=== PATIENT | female | born 1965 | race Two or more races ===

== ENCOUNTER → 2017-08-24 | Outpatient (CLI) | payer MEDICARE, OTHER ==
[~2017-08-24] MED LIST: /BACL20TA; /BACL20TA PO; /CARB20TAB; /DULO30CA; /FEXO18TA; /LANS30GR; /METO25TAB PO; ACYC400T; ACYC400T PO; ADDE10TA; ALBUTEROL; AMAN100T PO; AMIT10TA PO; ARTISOL; BACT800T; BENA25CA PO; CALC500T49; CALC600T10; CARB200CAP; CLON1TAB; CLON1TAB PO; CLONPOW23 PO; COLA100C2; CYMB60CA3 PO; DILA100C PO; DILA2TAB; DIVA500T3 PO; DYAZ37.5 PO; GILE1CAP PO; HYDR50TA8 PO; HYDROCODONE/ACETAMIN; IMMODIUM; KEPPRA; LEVA500T; LIDODERM; LYRI300C; LYRI300C PO; MAGN500T2; MELO15TA4 PO; MELOPOW; METH1TAB2 PO; METO1TAB32 PO; MORP15TA2 PO; MORP15TA4; MORP30TA2 PO; MS C15TA5; NAPR500T3 PO; NASONEX; NICO21DI4; NUED20CA PO; OLOP1DRO OU; OMEP40CA2 PO; OXYB15TA; PROM25TA PO; PROV200T5; PROV90AE; PROVIGIL; SENNA; TIZA4TAB; TIZA4TAB PO; TRAZ-136 PO; TRAZ50TA11; TRIAMT/HCTZ; VENTAER INH; VICO5TAB; VITA1CAP40 PO; VITAMIN B-12; VITAMIN D; ZOFR8TAB; ZOFR8TAB PO; ZONISAMIDE; [UNRECOGNIZED DRUG - CODE]; [UNRECOGNIZED DRUG - OTHER] PO
[2017-08-24 18:03] LABS: ALBUMIN 3.7 GM/DL (3.2-5.2); ALBUMIN/GLOBULIN RATIO 1.06 (1.00-1.93); ALKALINE PHOSPHATASE 198 U/L (45-117); ALT/SGPT 16 U/L (12-78); ANION GAP 7 MEQ/L (8-16); AST/SGOT 4 U/L (15-37); BILIRUBIN,TOTAL 0.3 MG/DL (0.2-1.0); BLOOD UREA NITROGEN 19 MG/DL (7-18); CALCIUM LEVEL 9.5 MG/DL (8.5-10.1); CARBON DIOXIDE LEVEL 33 MEQ/L (21-32); CHLORIDE LEVEL 96 MEQ/L (98-107); GLOMERULAR FILTRATION RATE > 60.0 (>58); GLUCOSE, FASTING 91 MG/DL (70-105); POTASSIUM SERUM 3.9 MEQ/L (3.5-5.1); SODIUM LEVEL 136 MEQ/L (136-145); TOTAL PROTEIN 7.2 GM/DL (6.4-8.2)
[2017-08-24 18:07] LABS: VITAMIN B12 LEVEL 421 PG/ML (247-911)
== END ==
LOC: M WUC 11:17
PROVIDERS: ATTEND Physician Assistant
DX: G35 Multiple sclerosis (principal)

== ENCOUNTER 2017-09-15 19:21 | Inpatient (IN) | payer MEDICARE, BC, OTHER ==
[~2017-09-15] VITALS: Ht 157.5 cm; Wt 88.5 kg
[~2017-09-15 19:21] MED LIST changes: -AMAN100T PO; -AMIT10TA PO; -CLON1TAB PO; -DILA100C PO; -DIVA500T3 PO; -DYAZ37.5 PO; -GILE1CAP PO; -MELO15TA4 PO; -METH1TAB2 PO; -METO1TAB32 PO; -NAPR500T3 PO; -NUED20CA PO; -OLOP1DRO OU; -PROM25TA PO; -TRAZ-136 PO; -TRAZ50TA11; -TRIAMT/HCTZ; -VITA1CAP40 PO
[2017-09-15] MEDS ORDERED: TRIAMT/HCTZ (19:52)
[2017-09-15] MEDS ORDERED: NUED20CA PO (19:52)
[2017-09-15] MEDS ORDERED: TRAZ50TA11 (19:52)
[2017-09-15] MEDS ORDERED: NAPR500T3 PO (19:52)
[2017-09-15] MEDS ORDERED: AMAN100T PO (19:52)
[2017-09-15] MEDS ORDERED: DIVA500T3 PO (19:52)
[2017-09-15] MEDS ORDERED: GILE1CAP PO (19:52)
[2017-09-15] MEDS ORDERED: methylPREDNISolone INJ 125 MG/2 ML VIAL (J2930) IV ONE (21:00)
[2017-09-15] MEDS ORDERED: NS 500 ML IV ONE (21:00)
[2017-09-15 21:20] LABS: BASO % 0.1 % (0.0-1.0); EOS # 0.1 10^3/uL (0.0-0.50); EOS % 0.9 % (0.0-3.0); IMMATURE GRANULOCYTE % 1.5 % (0-0); LYMPH # 0.3 10^3/uL (1.5-4.5); MEAN CORPUSCULAR HEMOGLOBIN 29.3 pg (27.0-33.0); MEAN CORPUSCULAR HGB CONC 34.2 g/dl (32.0-36.5); MEAN CORPUSCULAR VOLUME 85.6 fl (80.0-96.0); MONO # 1.1 10^3/uL (0.0-0.8); MONO % 14.2 % (0.0-5.0); NEUTROPHILS # 5.9 10^3/uL (1.8-7.7); NEUTROPHILS % 79.3 % (36.0-66.0); PLATELET COUNT, AUTOMATED 157 10^3/uL (150-450); RED CELL DISTRIBUTION WIDTH 13.6 % (11.5-14.5); WHITE BLOOD COUNT 7.5 10^3/uL (4.0-10.0)
[2017-09-15 21:29] LABS: ABG BASE EXCESS 2.5 (-2.0-2.0); ABG HCO3 25.3 MEQ/L (22.0-26.0); ABG PARTIAL PRESSURE CO2 32.8 mmHg (35.0-45.0); ABG PARTIAL PRESSURE O2 58.9 mmHg (75.0-100.0); ABG STANDARD HCO3 26.6 MEQ/L (22.0-26.0); ABG TOTAL CO2 26.3 MEQ/L (22.0-29.0); ABG pH (ARTERIAL) 7.505 UNITS (7.350-7.450)
[2017-09-15 21:35] LABS: CALCIUM LEVEL 8.9 MG/DL (8.5-10.1); CREATININE FOR GFR 1.39 MG/DL (0.55-1.02); GLOMERULAR FILTRATION RATE 42.7 (>51); POTASSIUM SERUM 3.8 MEQ/L (3.5-5.1)
[2017-09-15] MEDS ORDERED: ONDANSETRON 4MG/2ML VIAL (J2405) IV ONE (22:45)
[2017-09-15] MEDS ORDERED: LevoFLOXacin IV 500 MG in APPROPRIATE DILUENT 1 EA IV ONE (22:45)
[2017-09-15] MEDS ORDERED: METO1TAB32 PO (23:24)
[2017-09-15] MEDS ORDERED: AMIT10TA PO (23:24)
[2017-09-15] MEDS ORDERED: DILA100C PO (23:24)
[2017-09-15] MEDS ORDERED: METH1TAB2 PO (23:24)
[2017-09-15] MEDS ORDERED: MELO15TA4 PO (23:24)
[2017-09-15] MEDS ORDERED: PROM25TA PO (23:24)
[2017-09-15] MEDS ORDERED: DYAZ37.5 PO (23:24)
[2017-09-15] MEDS ORDERED: TRAZ-136 PO (23:24)
[2017-09-15] MEDS ORDERED: OLOP1DRO OU (23:24)
[2017-09-15] MEDS ORDERED: CLON1TAB PO (23:24)
[2017-09-15] MEDS ORDERED: VITA1CAP40 PO (23:24)
[2017-09-16] VITALS (8 sets, daily range): BP systolic 94–122; BP diastolic 55–74
[2017-09-16] MEDS ORDERED: ALBUTEROL 90 MCG/ACT 8GM HFA INHALER INH PRN
[2017-09-16] MEDS ORDERED: ONDANSETRON 4MG/2ML VIAL (J2405) IV PRN
[2017-09-16] MEDS ORDERED: PROMETHAZINE 25 MG TAB PO PRN
--- NOTE | 2017-09-16 01:35 | HPEPDOC ---
General Date of Admission Sep 15, 2017 at 19:22 Primary Care Physician: KARLENE ROSADO MD Attending Physician: ISABEL GRAHAM MD Chief Complaint The patient is a 52-year-old female admitted with a reason for visit of UTI. Source: Patient, Family History of Present Illness 52-year-old female with past medical history of multiple sclerosis diagnosed in 2005, chronic pain secondary to multiple sclerosis, and anxiety/depression presented to the ER with a chief complaint of increased lethargy/weakness over the last 3 days. The patient states that she has been feeling subjective fevers at home. In addition, the patient's states that the patient's mentation has also been more delayed. He does note, the patient does have similar symptoms of the same when she has had urinary tract infections in the past. The patient denies any acute complaints of visual blurring, facial droop, numbness/ tingling of extremities, or any other focal neurological deficits. The patient denies any acute complaints of chest pain, palpitations, shortness of breath, abdominal pain, or any nausea/vomiting/diarrhea. Home Medications Scheduled (Cymbalta) 60 Mg Cap, 60 MG PO BID, (Reported) (Nuedexta 20-10 mg) 1 Cap Cap, 1 CAP PO BID, (Reported) (Methenamine Hippurate) 1 Gm Tab, 1 GM PO DAILY, (Reported) Acyclovir (Acyclovir) 400 Mg Tab, 400 MG PO BID, (Reported) Amantadine HCl (Amantadine HCl) 100 Mg Tab, 100 MG PO BID, (Reported) Amitriptyline HCl (Amitriptyline HCl) 10 Mg Tab, 10 MG PO QHS, (Reported) Baclofen (Baclofen) 20 Mg Tab, 20 MG PO DAILY, (Reported) Baclofen (Baclofen) 20 Mg Tab, 40 MG PO QHS, (Reported) Clonazepam (Clonazepam) 1 Mg Tab, 1 MG PO BID, (Reported) Divalproex Sodium (Divalproex Sodium Dr) 500 Mg Tab, 500 MG PO QHS, (Reported) Ergocalciferol (Vitamin D) 50,000 Unit Cap, 50,000 UNIT PO ASDIRECTED, (Reported ) TAKES ON WEDNESDAY MORNINGS Fingolimod Hydrochloride (Gilenya) 0.5 Mg Cap, 0.5 MG PO DAILY, (Reported) Hydrochlorothiazide W/Triamter (Dyazide 37.5-25 mg) 1 Cap Cap, 1 CAP PO DAILY, ( Reported) Hydroxyzine Hcl (Hydroxyzine Hcl) 50 Mg Tab, 50 MG PO TID, (Reported) Meloxicam (Meloxicam) 15 Mg Tab, 15 MG PO DAILY, (Reported) Metoprolol Succinate (Metoprolol Succinate ER) 25 Mg Tab, 25 MG PO DAILY, ( Reported) Omeprazole (Omeprazole) 40 Mg Cap, 40 MG PO BID, (Reported) Phenytoin Sodium (Dilantin) 100 Mg Cap, 200 MG PO BID, (Reported) Pregabalin (Lyrica) 300 Mg Cap, 300 MG PO BID, (Reported) Trazodone HCl (Trazodone HCl) 100 Mg Tab, 100 MG PO QHS, (Reported) Scheduled PRN (Olopatadine HCl) 0.1 % Dimas, 0.1 % OU BID PRN for ITCHING, (Reported) Albuterol Sulfate (Ventolin Hfa) Aer, 2 PUFFS INH QID PRN for SHORTNESS OF BREATH, (Reported) Naproxen (Naproxen) 500 Mg Tab, 500 MG PO BID PRN for PAIN, (Reported) Ondansetron (Zofran) 8 Mg Tab, 8 MG PO TID PRN for NAUSEA, (Reported) Promethazine HCl (Promethazine HCl) 25 Mg Tab, 25 MG PO Q4H PRN for NAUSEA, ( Reported) Tizanidine Hydrochloride (Tizanidine Hcl) 4 Mg Tab, 4 MG PO TID PRN for MUSCLE SPASMS, (Reported) Allergies Coded Allergies: Cephalosporins (Verified Allergy, Intermediate, RASH, 03/06/13) Acetaminophen (Verified Allergy, Unknown, 06/28/13) Hydrocodone (Verified Allergy, Unknown, 06/28/13) Sulfa Drugs (Verified Allergy, Unknown, 03/06/13) Sulfa Drugs Cross Reactors (Verified Allergy, Unknown, 03/06/13) Oxycodone (Verified Adverse Reaction, Intermediate, PROJECTILE VOMITING, ) Past Medical History Medical History As noted in HPI. Surgical History BREAST RECUCTION 1991 B/L WRIST SURGERY - DR ANTONY - [place] BLADDER REMOVAL/ UROSTOMY - DR PERRY ([facility]) 06/2017 HYSTERECTOMY TUBAL LIGATION MOEHS FOR BASAL CELL CA - NOSE, LEG, SHOULDER, NECK - DR BARKER -[place], DR ELISE - [place] PORT PLACEMENT FOR CHEMO AND STEROIDS FOR MS (HAS PIECE OF METAL IN HEART FROM PREVIOUS PORT THAT WAS NOT RETRIEVABLE) --Obtained from PCP charting Family History Significant Family History: No pertinent family hx Social History * Smoker: former Smoker Alcohol: occationally Lives with her . Ambulates with a rolling walker at baseline. Review of Symptoms Other systems 10 point review systems negative unless otherwise specified in HPI. Physical Examination General Exam: Positive: Alert, Cooperative, No Acute Distress ENT Exam: Positive: Atraumatic, Mucous membr. moist/pink Neck Exam: Negative: JVD Chest Exam: Positive: Clear to auscultation, Normal air movement Heart Exam: Positive: Rate Normal, Normal S1, Normal S2 Abdomen Exam: Positive: Soft, Negative: Tenderness Extremity Exam: Negative: Tenderness, Swelling Psych Exam: Positive: Oriented x 3 Vital Signs Vital Signs Date Time Temp Pulse Resp B/P (MAP) Pulse Ox O2 Delivery O2 Flow Rate FiO2 09/16/17 01:01 98.0 81 16 105/64 (78) 95 Nasal Cannula 3.0 09/15/17 22:15 96 Laboratory Data Labs 24H Laboratory Tests 2 09/15/17 20:15: Immature Granulocyte % (Auto) 1.5H, White Blood Count 7.5, Red Blood Count 3.89L , Hemoglobin 11.4L, Hematocrit 33.3L, Mean Corpuscular Volume 85.6, Mean Corpuscular Hemoglobin 29.3, Mean Corpuscular Hemoglobin Concent 34.2, Red Cell Distribution Width 13.6, Platelet Count 157, Neutrophils (%) (Auto) 79.3H, Lymphocytes (%) (Auto) 4.0L, Monocytes (%) (Auto) 14.2H, Eosinophils (%) (Auto) 0.9, Basophils (%) (Auto) 0.1, Neutrophils # (Auto) 5.9, Lymphocytes # (Auto) 0.3L, Monocytes # (Auto) 1.1H, Eosinophils # (Auto) 0.1, Basophils # (Auto) 0.0 , Immature Granulocyte # (Auto) 0.1H, Nucleated Red Blood Cells % (auto) 0.0, Anion Gap 7L, Glomerular Filtration Rate 42.7L, Blood Urea Nitrogen 24H, Creatinine 1.39H, Sodium Level 135L, Potassium Level 3.8, Chloride Level 97L, Carbon Dioxide Level 31, Calcium Level 8.9 09/15/17 21:12: Blood Gas Bicarbonate Standard 26.6H, Arterial Blood pH 7.505H, Arterial Blood Partial Pressure CO2 32.8L, Arterial Blood Partial Pressure O2 58.9L, Arterial Blood Total CO2 26.3, Arterial Blood HCO3 25.3, Arterial Blood Base Excess 2.5H , Arterial Blood Oxygen Saturation 91.7L 09/15/17 22:10: Urine Appearance HAZY, Urine Color EDEN, Urine pH 5.0, Urine Specific Mclean 1.014, Urine Protein 2+H, Urine Glucose (UA) NEGATIVE, Urine Ketones NEGATIVE, Urine Urobilinogen 4.0H, Urine Bilirubin NEGATIVE, Urine Leukocyte Esterase 3+H , Urine Blood 1+H, Urine Nitrite POSITIVE, Urine WBC (Auto) 60H, Urine RBC (Auto ) 6H, Urine Hyaline Casts (Auto) 0, Urine Bacteria (Auto) 1+H, Urine Squamous Epithelial Cells 0, Urine Sperm (Auto) CBC/BMP Laboratory Tests 09/15/17 20:15 Red Blood Count 3.89 L, Mean Corpuscular Volume 85.6, Mean Corpuscular Hemoglobin 29.3, Mean Corpuscular Hemoglobin Concent 34.2, Red Cell Distribution Width 13.6, Neutrophils (%) (Auto) 79.3 H, Lymphocytes (%) (Auto) 4.0 L, Monocytes (%) (Auto) 14.2 H, Eosinophils (%) (Auto) 0.9, Basophils (%) ( Auto) 0.1, Neutrophils # (Auto) 5.9, Lymphocytes # (Auto) 0.3 L, Monocytes # ( Auto) 1.1 H, Eosinophils # (Auto) 0.1, Basophils # (Auto) 0.0, Calcium Level 8.9 Microbiology Microbiology 09/15/17 Blood Culture, Received Pending 09/15/17 Urine Culture, Received Pending 09/15/17 Influenza Virus Type A Antigen - Final, Complete 09/15/17 Influenza Virus Type B Antigen - Final, Complete Plan / VTE VTE Prophylaxis Ordered?: Yes Plan Plan Lethargy, Malaise 2/2 Urinary Tract Infection UA notable for +Nitrites, 3+ Leukocyte Esterase, and 60 WBC's Blood Cultures, Urine Culture sent We will cover the patient with Levaquin given her antibiotic allergies We will hold sedative therapy at this time We will continue to monitor the patient's clinical condition PT Ordered History of multiple sclerosis Diagnosed in [address] Avila, who is a neurologist based in the [place], [place] area She follows with him [id number] is scheduled to see him next week Neurology was contacted by the ER physician here--at this time the patient's urinary tract infection should be treated before considering MS flare and steroid therapy MRI Brain ordered for the AM Acute Kidney Injury Serum Cr 1.39 (Baseline 0.7-0.8) IVF Hydration ordered Hold nephrotoxins therapy Repeat BMP in a.m. Chronic pain 2/2 MS We will be holding some of the patient's sedative, analgesic medication The patient's home medication regimen was recently down tapered by her primary care physician. The patient's does state that the patient was handling her own medication for the last few days, and is concerned that that she may have taken erroneous dosing leading to her current symptoms of malaise/fatigue. Asthma, stable Continue albuterol when necessary DVT prophylaxis Lovenox subcutaneous The patient will be admitted under the service of Dr. Graham, who will begin to follow the patient on 09/16/17 at 7 AM. ALIN IRWIN MD Sep 16, 2017 01:35
[2017-09-16] MEDS: DIVALPROEX 500 MG TAB PO SCH ×2 (01:55→21:03)
[2017-09-16] MEDS: traMADol 50 MG TAB PO PRN ×2 (01:55→15:27)
[2017-09-16] MEDS: OMEPRAZOLE 20 MG CAP PO SCH ×3 (01:55→21:01)
[2017-09-16] MEDS: AMANTADINE 100 MG CAP PO SCH ×3 (01:55→21:03)
[2017-09-16] MEDS: PHENYTOIN ER 100 MG CAP PO SCH ×3 (01:57→21:02)
[2017-09-16] MEDS: NS 1,500 ML IV SCH ×2 (01:57→13:28)
--- NOTE | 2017-09-16 07:10 | ECGEPIP ---
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
--- NOTE | 2017-09-16 08:38 | REP ---
Portable chest, 09:05 p.m., single AP view, the patient upright: Comparison is 04/01/2009. The lung allison are clear. Cardiac size is normal for the jenelle, mediastinum, and bony thorax are unremarkable. There are no acute cardiopulmonary findings. There is an indwelling [id number]-P-[id number] catheter entering from a right IJ approach with the tip in the superior vena cava in satisfactory location. This was also present previously. Impression: There are no acute cardiopulmonary findings. There is an indwelling right IJ Bajopk-Z-Yche catheter, unchanged. Signed by Bran Brock MD 09/16/2017 08:28 A
[2017-09-16] MEDS: LevoFLOXacin IV 250 MG in APPROPRIATE DILUENT 1 EA IV SCH (08:41)
[2017-09-16] MEDS: ENOXAPARIN 30 MG/0.3 ML SYR (J1650) SC SCH (08:43)
[2017-09-16] MEDS: METOPROLOL SUCC *XL* 25MG TAB (TopROL *XL*) PO SCH (08:43)
[2017-09-16] MEDS ORDERED: OLOPATADINE 0.1% OPHTH SOL 5ML(PATANOL) OU PRN (10:00)
[2017-09-16] MEDS ORDERED: BACLOFEN 10 MG TAB PO SCH (10:15)
[2017-09-16] MEDS: hydrOXYzine 50 MG TAB PO SCH ×3 (11:11→21:03)
[2017-09-16] MEDS: PREGABALIN 100 MG CAP (LYRICA) PO SCH ×2 (11:11→21:02)
[2017-09-16] MEDS: MELOXICAM (MOBIC) 7.5 MG TAB PO SCH (11:12)
[2017-09-16] MEDS: ACYCLOVIR 200 MG CAPSULE PO SCH ×2 (11:12→21:03)
[2017-09-16] MEDS: tiZANidine 4 MG TAB PO PRN ×2 (11:12→20:59)
[2017-09-16] MEDS: NAPROXEN 250 MG TAB PO PRN (11:13)
[2017-09-16] MEDS: NUEDEXTA PO SCH ×2 (12:17→21:04)
[2017-09-16] MEDS: FINGOLIMOD 0.5 MG PO SCH (12:17)
[2017-09-16] MEDS: NICOTINE 21MG/24HR 1 EA TRANSDERMAL TD SCH (15:26)
[2017-09-16] MEDS ORDERED: BACLOFEN 5MG PER 1/2 TABLET PO SCH (21:00)
[2017-09-16] MEDS ORDERED: NON-FORMULARY COMPOUNDED MEDICATION PO SCH (21:00)
[2017-09-16] MEDS: clonazePAM 1 MG TAB PO SCH (21:01)
[2017-09-16] MEDS: DULoxetine 30 MG CAP (CYMBALTA) PO SCH (21:02)
[2017-09-16] MEDS: traZODone 100 MG TAB PO SCH (21:03)
[2017-09-16] MEDS: AMITRIPTYLINE 10 MG TAB PO SCH (21:03)
[2017-09-17] VITALS (7 sets, daily range): BP systolic 95–118; BP diastolic 54–75
[2017-09-17 04:54] LABS: EOS # 0.2 10^3/uL (0.0-0.50); IMMATURE GRANULOCYTE % 2.7 % (0-0); LYMPH % 4.6 % (24.0-44.0); MEAN CORPUSCULAR HEMOGLOBIN 27.9 pg (27.0-33.0); MEAN CORPUSCULAR HGB CONC 32.8 g/dl (32.0-36.5); MEAN CORPUSCULAR VOLUME 85.2 fl (80.0-96.0); MONO # 0.6 10^3/uL (0.0-0.8); MONO % 16.3 % (0.0-5.0); NEUTROPHILS # 2.6 10^3/uL (1.8-7.7); NEUTROPHILS % 70.4 % (36.0-66.0); PLATELET COUNT, AUTOMATED 156 10^3/uL (150-450); RED CELL DISTRIBUTION WIDTH 13.2 % (11.5-14.5); WHITE BLOOD COUNT 3.7 10^3/uL (4.0-10.0)
[2017-09-17 05:35] LABS: ANION GAP 8 MEQ/L (8-16); BLOOD UREA NITROGEN 22 MG/DL (7-18); CALCIUM LEVEL 9.1 MG/DL (8.5-10.1); CARBON DIOXIDE LEVEL 26 MEQ/L (21-32); CHLORIDE LEVEL 103 MEQ/L (98-107); CREATININE FOR GFR 0.92 MG/DL (0.55-1.02); GLOMERULAR FILTRATION RATE > 60.0 (>51); GLUCOSE, FASTING 82 MG/DL (70-105); POTASSIUM SERUM 3.8 MEQ/L (3.5-5.1); SODIUM LEVEL 137 MEQ/L (136-145)
[2017-09-17 05:45] LABS: LYMPH # 0.2 10^3/uL (1.5-4.5); POSITIVE DIFF POS FLAG
--- NOTE | 2017-09-17 08:47 | IPNPDOC ---
Text Note Date of Service The patient was seen on 09/17/17. NOTE Subjective: Patient seen and examined at bedside. No acute overnight events reported. Patient is feeling better today, but not at baseline. Objective: General: NAD, lying comfortably in bed HEENT: NC/AT, EOMI Lungs: CTA B/L Heart: +S1S2, RRR Abd: soft, NT, +BS Ext: no edema A/P: 52 yo female for worsening generalized lethargy with history of MS. 1. Lethargy, Malaise - likely 2/2 Urinary Tract Infection 2. UTI - continue with Levaquin - UCx pending 3. History of multiple sclerosis Diagnosed in [address] Avila, who is a neurologist based in the [place], [place] area She follows with him [id number] is scheduled to see him next week Neurology was contacted by the ER physician here--at this time the patient's urinary tract infection should be treated before considering MS flare and steroid therapy Unable to obtain MRI Brain due to metal fragments 4. Acute Kidney Injury - resolved - continue IVF - decrease rate 5. Chronic pain 2/2 MS - resumed some of patient's home regimen - The patient's does state that the patient was handling her own medication for the last few days, and is concerned regarding possible medication errors. 6. Asthma, stable Continue albuterol when necessary 7. DVT prophylaxis Lovenox subcutaneous VS,Fishbone, I+O VS, Fishbone, I+O Laboratory Tests 09/17/17 04:34 Red Blood Count 3.58 L, Mean Corpuscular Volume 85.2, Mean Corpuscular Hemoglobin 27.9, Mean Corpuscular Hemoglobin Concent 32.8, Red Cell Distribution Width 13.2, Neutrophils (%) (Auto) 70.4 H, Lymphocytes (%) (Auto) 4.6 L, Monocytes (%) (Auto) 16.3 H, Eosinophils (%) (Auto) 6.0 H, Basophils (%) (Auto) 0.0, Neutrophils # (Auto) 2.6, Lymphocytes # (Auto) 0.2 L, Monocytes # ( Auto) 0.6, Eosinophils # (Auto) 0.2, Basophils # (Auto) 0.0, Calcium Level 9.1 Vital Signs Date Time Temp Pulse Resp B/P (MAP) Pulse Ox O2 Delivery O2 Flow Rate FiO2 09/17/17 04:00 97.6 61 16 97/62 (74) 97 Nasal Cannula 2.0 09/15/17 22:15 96 ISABEL GRAHAM MD Sep 17, 2017 08:47
[2017-09-17] MEDS: PHENYTOIN ER 100 MG CAP PO SCH ×2 (08:50→20:56)
[2017-09-17] MEDS: NAPROXEN 250 MG TAB PO PRN (08:50)
[2017-09-17] MEDS: MELOXICAM (MOBIC) 7.5 MG TAB PO SCH (08:51)
[2017-09-17] MEDS: PREGABALIN 100 MG CAP (LYRICA) PO SCH ×2 (08:51→20:56)
[2017-09-17] MEDS: DULoxetine 30 MG CAP (CYMBALTA) PO SCH ×2 (08:52→20:56)
[2017-09-17] MEDS: METOPROLOL SUCC *XL* 25MG TAB (TopROL *XL*) PO SCH (08:52)
[2017-09-17] MEDS: hydrOXYzine 50 MG TAB PO SCH ×3 (08:52→20:59)
[2017-09-17] MEDS: AMANTADINE 100 MG CAP PO SCH ×2 (08:52→20:57)
[2017-09-17] MEDS: OMEPRAZOLE 20 MG CAP PO SCH ×2 (08:52→20:57)
[2017-09-17] MEDS: ENOXAPARIN 30 MG/0.3 ML SYR (J1650) SC SCH (08:53)
[2017-09-17] MEDS: NICOTINE 21MG/24HR 1 EA TRANSDERMAL TD SCH (08:53)
[2017-09-17] MEDS: LevoFLOXacin IV 250 MG in APPROPRIATE DILUENT 1 EA IV SCH (08:53)
[2017-09-17] MEDS: NUEDEXTA PO SCH ×2 (08:54→20:58)
[2017-09-17] MEDS: FINGOLIMOD 0.5 MG PO SCH (08:55)
[2017-09-17] MEDS: clonazePAM 1 MG TAB PO SCH ×2 (08:55→20:57)
[2017-09-17] MEDS ORDERED: VITAMIN D 50,000 UNITS CAPSULE (ERGOCALCIFEROL 1.25MG) PO SCH (09:00)
[2017-09-17] MEDS ORDERED: NON-FORMULARY COMPOUNDED MEDICATION PO SCH (09:00)
[2017-09-17] MEDS: ACYCLOVIR 200 MG CAPSULE PO SCH ×2 (09:20→20:57)
[2017-09-17] MEDS: traMADol 50 MG TAB PO PRN (15:53)
[2017-09-17] MEDS: traZODone 100 MG TAB PO SCH (20:57)
[2017-09-17] MEDS: tiZANidine 4 MG TAB PO PRN (20:57)
[2017-09-17] MEDS: AMITRIPTYLINE 10 MG TAB PO SCH (20:57)
[2017-09-17] MEDS: DIVALPROEX 500 MG TAB PO SCH (20:58)
[2017-09-18 06:00] VITALS: BP_SYST 101; BP_SYST 110; BP_DIAS 55; BP_DIAS 72
[2017-09-18] MEDS: LevoFLOXacin 500 MG TABLET PO SCH (06:00)
[2017-09-18 06:41] LABS: BASO % 0.7 % (0.0-1.0); EOS # 0.2 10^3/uL (0.0-0.50); EOS % 7.2 % (0.0-3.0); LYMPH % 8.3 % (24.0-44.0); MEAN CORPUSCULAR HEMOGLOBIN 28.5 pg (27.0-33.0); MEAN CORPUSCULAR HGB CONC 33.6 g/dl (32.0-36.5); MEAN CORPUSCULAR VOLUME 84.8 fl (80.0-96.0); MONO # 0.5 10^3/uL (0.0-0.8); MONO % 18.4 % (0.0-5.0); NEUTROPHILS # 1.7 10^3/uL (1.8-7.7); NEUTROPHILS % 61.4 % (36.0-66.0); PLATELET COUNT, AUTOMATED 168 10^3/uL (150-450); RED CELL DISTRIBUTION WIDTH 13.2 % (11.5-14.5); WHITE BLOOD COUNT 2.8 10^3/uL (4.0-10.0)
[2017-09-18 06:58] LABS: ANION GAP 7 MEQ/L (8-16); BLOOD UREA NITROGEN 17 MG/DL (7-18); CARBON DIOXIDE LEVEL 29 MEQ/L (21-32); CHLORIDE LEVEL 102 MEQ/L (98-107); CREATININE FOR GFR 0.82 MG/DL (0.55-1.02); GLOMERULAR FILTRATION RATE > 60.0 (>51); GLUCOSE, FASTING 88 MG/DL (70-105); POTASSIUM SERUM 3.3 MEQ/L (3.5-5.1); SODIUM LEVEL 138 MEQ/L (136-145)
[2017-09-18 07:19] LABS: LYMPH # 0.2 10^3/uL (1.5-4.5); POSITIVE DIFF POS FLAG
[2017-09-18] MEDS: NUEDEXTA PO SCH ×2 (09:00→21:19)
[2017-09-18] MEDS: PREGABALIN 100 MG CAP (LYRICA) PO SCH ×2 (09:16→21:18)
[2017-09-18] MEDS: DULoxetine 30 MG CAP (CYMBALTA) PO SCH ×2 (09:16→21:18)
[2017-09-18] MEDS: clonazePAM 1 MG TAB PO SCH ×2 (09:16→21:18)
[2017-09-18] MEDS: OMEPRAZOLE 20 MG CAP PO SCH ×2 (09:16→21:18)
[2017-09-18] MEDS: PHENYTOIN ER 100 MG CAP PO SCH ×2 (09:17→21:19)
[2017-09-18] MEDS: ACYCLOVIR 200 MG CAPSULE PO SCH ×2 (09:17→21:19)
[2017-09-18] MEDS: MELOXICAM (MOBIC) 7.5 MG TAB PO SCH (09:17)
[2017-09-18] MEDS: hydrOXYzine 50 MG TAB PO SCH ×3 (09:18→21:19)
[2017-09-18] MEDS: ENOXAPARIN 30 MG/0.3 ML SYR (J1650) SC SCH (09:18)
[2017-09-18] MEDS: METOPROLOL SUCC *XL* 25MG TAB (TopROL *XL*) PO SCH (09:18)
[2017-09-18] MEDS: AMANTADINE 100 MG CAP PO SCH ×2 (09:18→21:18)
[2017-09-18] MEDS: NICOTINE 21MG/24HR 1 EA TRANSDERMAL TD SCH (09:20)
[2017-09-18] MEDS: FINGOLIMOD 0.5 MG PO SCH (09:21)
[2017-09-18] MEDS: tiZANidine 4 MG TAB PO PRN (09:41)
--- NOTE | 2017-09-18 09:43 | IPNPDOC ---
Text Note Date of Service The patient was seen on 09/18/17. NOTE Subjective: Patient seen and examined at bedside. No acute overnight events reported. Patient is feeling better today, but not at baseline. Objective: General: NAD, lying comfortably in bed HEENT: NC/AT, EOMI Lungs: CTA B/L Heart: +S1S2, RRR Abd: soft, NT, +BS Ext: no edema A/P: 52 yo female for worsening generalized lethargy with history of MS. 1. Lethargy, Malaise - likely 2/2 Urinary Tract Infection - cultures/sensitivities noted - transition to PO Levaquin 2. UTI - transition to PO Levquing 3. History of multiple sclerosis Diagnosed in [address] Avila, who is a neurologist based in the [place], [place] area She follows with him [id number] is scheduled to see him next week Neurology was contacted by the ER physician here--at this time the patient's urinary tract infection should be treated before considering MS flare and steroid therapy Unable to obtain MRI Brain due to metal fragments 4. Acute Kidney Injury - resolved - d/c iv fluids 5. Chronic pain 2/2 MS - resumed some of patient's home regimen - The patient's does state that the patient was handling her own medication for the last few days, and is concerned regarding possible medication errors. 6. Asthma, stable Continue albuterol when necessary 7. DVT prophylaxis Lovenox subcutaneous VS,Fishbone, I+O VS, Fishbone, I+O Laboratory Tests 09/18/17 06:16 Red Blood Count 3.30 L, Mean Corpuscular Volume 84.8, Mean Corpuscular Hemoglobin 28.5, Mean Corpuscular Hemoglobin Concent 33.6, Red Cell Distribution Width 13.2, Neutrophils (%) (Auto) 61.4, Lymphocytes (%) (Auto) 8.3 L, Monocytes (%) (Auto) 18.4 H, Eosinophils (%) (Auto) 7.2 H, Basophils (%) (Auto) 0.7, Neutrophils # (Auto) 1.7 L, Lymphocytes # (Auto) 0.2 L, Monocytes # (Auto) 0.5, Eosinophils # (Auto) 0.2, Basophils # (Auto) 0.0, Calcium Level 9.0 Vital Signs Date Time Temp Pulse Resp B/P (MAP) Pulse Ox O2 Delivery O2 Flow Rate FiO2 09/18/17 09:18 67 110/72 09/18/17 06:00 97.2 18 97 Room Air 09/17/17 12:00 2.0 09/15/17 22:15 96 ISABEL GRAHAM MD Sep 18, 2017 09:43
[2017-09-18 14:00] VITALS: BP 92/58
[2017-09-18] MEDS: traZODone 100 MG TAB PO SCH (21:17)
[2017-09-18] MEDS: AMITRIPTYLINE 10 MG TAB PO SCH (21:18)
[2017-09-18] MEDS: DIVALPROEX 500 MG TAB PO SCH (21:18)
[2017-09-18 22:00] VITALS: BP 122/84
[2017-09-19] MEDS: LevoFLOXacin 500 MG TABLET PO SCH (05:58)
[2017-09-19 06:00] VITALS: BP 111/69
[2017-09-19 06:31] LABS: MEAN CORPUSCULAR HEMOGLOBIN 28.9 pg (27.0-33.0); MEAN CORPUSCULAR HGB CONC 34.4 g/dl (32.0-36.5); MEAN CORPUSCULAR VOLUME 83.9 fl (80.0-96.0); PLATELET COUNT, AUTOMATED 193 10^3/uL (150-450); RED CELL DISTRIBUTION WIDTH 12.9 % (11.5-14.5); WHITE BLOOD COUNT 2.8 10^3/uL (4.0-10.0)
[2017-09-19 06:39] LABS: ADD MANUAL DIFFER YES; DIFF SLIDE NUMBER 19; POS COUNT POS FLAG; POSITIVE DIFF POS FLAG; POSITIVE MORPH POS FLAG
[2017-09-19 06:50] LABS: ANION GAP 7 MEQ/L (8-16); BLOOD UREA NITROGEN 13 MG/DL (7-18); CALCIUM LEVEL 8.6 MG/DL (8.5-10.1); CARBON DIOXIDE LEVEL 30 MEQ/L (21-32); CHLORIDE LEVEL 104 MEQ/L (98-107); CREATININE FOR GFR 0.74 MG/DL (0.55-1.02); GLOMERULAR FILTRATION RATE > 60.0 (>51); GLUCOSE, FASTING 91 MG/DL (70-105); POTASSIUM SERUM 3.3 MEQ/L (3.5-5.1); SODIUM LEVEL 141 MEQ/L (136-145)
[2017-09-19 07:18] LABS: BASOPHILS 1 % (0-4); EOSINOPHILS 4 % (0-5)
[2017-09-19 07:19] LABS: BANDS 2 % (< 11)
--- NOTE | 2017-09-19 07:24 | IPNPDOC ---
Text Note Date of Service The patient was seen on 09/19/17. NOTE Subjective: Patient seen and examined at bedside. No acute overnight events reported. Patient continues to feel better. No new medical complaints. Objective: General: NAD, lying comfortably in bed HEENT: NC/AT, EOMI Lungs: CTA B/L Heart: +S1S2, RRR Abd: soft, NT, +BS Ext: no edema A/P: 52 yo female for worsening generalized lethargy with history of MS. 1. Lethargy, Malaise - likely 2/2 Urinary Tract Infection - cultures/sensitivities noted - transitioned to PO Levaquin 2. UTI - transitioned to PO Levquin 3. History of multiple sclerosis Diagnosed in [address] Avila, who is a neurologist based in the [place], [place] area She follows with him [id number] is scheduled to see him next week - returning to [place] tomorrow 09/20/17 Neurology was contacted by the ER physician here--at this time the patient's urinary tract infection should be treated before considering MS flare and steroid therapy Unable to obtain MRI Brain due to metal fragments 4. Acute Kidney Injury - resolved - d/c iv fluids 5. Chronic pain 2/2 MS - resumed some of patient's home regimen - The patient's does state that the patient was handling her own medication for the last few days, and is concerned regarding possible medication errors. 6. Asthma, stable Continue albuterol when necessary 7. DVT prophylaxis Lovenox subcutaneous Dispo: Pending PT eval, anticipating discharge in 24 hours VS,Rafael, I+O VS, Rafael, I+O Laboratory Tests 09/19/17 06:14 Red Blood Count 3.36 L, Mean Corpuscular Volume 83.9, Mean Corpuscular Hemoglobin 28.9, Mean Corpuscular Hemoglobin Concent 34.4, Red Cell Distribution Width 12.9, Calcium Level 8.6 Vital Signs Date Time Temp Pulse Resp B/P (MAP) Pulse Ox O2 Delivery O2 Flow Rate FiO2 09/19/17 06:00 97.0 65 18 111/69 (83) 99 Room Air 09/17/17 12:00 2.0 09/15/17 22:15 96 ISABEL GRAHAM MD Sep 19, 2017 07:24
[2017-09-19] MEDS ORDERED: POTASSIUM CHLORIDE 10 MEQ SR TABLET PO ONE (07:30)
[2017-09-19 07:39] LABS: MAGNESIUM LEVEL 1.8 MG/DL (1.8-2.4)
[2017-09-19] MEDS: AMANTADINE 100 MG CAP PO SCH ×2 (09:00→20:20)
[2017-09-19] MEDS: NUEDEXTA PO SCH ×2 (09:00→20:19)
[2017-09-19] MEDS: PREGABALIN 100 MG CAP (LYRICA) PO SCH ×2 (09:00→20:18)
[2017-09-19] MEDS: DULoxetine 30 MG CAP (CYMBALTA) PO SCH ×2 (10:25→20:19)
[2017-09-19] MEDS: OMEPRAZOLE 20 MG CAP PO SCH ×2 (10:25→20:20)
[2017-09-19] MEDS: hydrOXYzine 50 MG TAB PO SCH ×3 (10:26→20:20)
[2017-09-19] MEDS: clonazePAM 1 MG TAB PO SCH ×2 (10:26→20:21)
[2017-09-19] MEDS: ACYCLOVIR 200 MG CAPSULE PO SCH ×2 (10:27→20:19)
[2017-09-19] MEDS: METOPROLOL SUCC *XL* 25MG TAB (TopROL *XL*) PO SCH (10:27)
[2017-09-19] MEDS: MELOXICAM (MOBIC) 7.5 MG TAB PO SCH (10:28)
[2017-09-19] MEDS: PHENYTOIN ER 100 MG CAP PO SCH ×2 (10:29→20:20)
[2017-09-19] MEDS: FINGOLIMOD 0.5 MG PO SCH (10:31)
[2017-09-19] MEDS: NICOTINE 21MG/24HR 1 EA TRANSDERMAL TD SCH (10:32)
[2017-09-19] MEDS: ENOXAPARIN 30 MG/0.3 ML SYR (J1650) SC SCH (10:32)
[2017-09-19 14:00] VITALS: BP 108/69
[2017-09-19] MEDS: traZODone 100 MG TAB PO SCH (20:20)
[2017-09-19] MEDS: DIVALPROEX 500 MG TAB PO SCH (20:21)
[2017-09-19] MEDS: AMITRIPTYLINE 10 MG TAB PO SCH (20:21)
[2017-09-19] MEDS: NAPROXEN 250 MG TAB PO PRN (20:22)
[2017-09-19 22:00] VITALS: BP 122/74
[2017-09-20] MEDS: LevoFLOXacin 500 MG TABLET PO SCH (05:10)
[2017-09-20 06:00] VITALS: BP 122/70
[2017-09-20 07:22] LABS: MEAN CORPUSCULAR HEMOGLOBIN 28.8 pg (27.0-33.0); MEAN CORPUSCULAR HGB CONC 34.3 g/dl (32.0-36.5); PLATELET COUNT, AUTOMATED 225 10^3/uL (150-450); RED CELL DISTRIBUTION WIDTH 12.9 % (11.5-14.5)
[2017-09-20 07:23] LABS: POSITIVE MORPH POS FLAG
[2017-09-20 07:24] LABS: ADD MANUAL DIFFER YES; DIFF SLIDE NUMBER 116; POS COUNT POS FLAG
[2017-09-20 07:36] LABS: ANION GAP 7 MEQ/L (8-16); BLOOD UREA NITROGEN 11 MG/DL (7-18); CALCIUM LEVEL 9.3 MG/DL (8.5-10.1); CARBON DIOXIDE LEVEL 30 MEQ/L (21-32); CHLORIDE LEVEL 103 MEQ/L (98-107); CREATININE FOR GFR 0.78 MG/DL (0.55-1.02); GLOMERULAR FILTRATION RATE > 60.0 (>51); GLUCOSE, FASTING 82 MG/DL (70-105); POTASSIUM SERUM 3.8 MEQ/L (3.5-5.1); SODIUM LEVEL 140 MEQ/L (136-145)
[2017-09-20] MEDS: FINGOLIMOD 0.5 MG PO SCH (08:34)
[2017-09-20] MEDS: NUEDEXTA PO SCH (08:36)
[2017-09-20] MEDS: PREGABALIN 100 MG CAP (LYRICA) PO SCH (08:37)
[2017-09-20] MEDS: PHENYTOIN ER 100 MG CAP PO SCH (08:37)
[2017-09-20] MEDS: ACYCLOVIR 200 MG CAPSULE PO SCH (08:37)
[2017-09-20 08:38] VITALS: BP 122/70
[2017-09-20] MEDS: AMANTADINE 100 MG CAP PO SCH (08:38)
[2017-09-20] MEDS: MELOXICAM (MOBIC) 7.5 MG TAB PO SCH (08:38)
[2017-09-20] MEDS: METOPROLOL SUCC *XL* 25MG TAB (TopROL *XL*) PO SCH (08:38)
[2017-09-20] MEDS: hydrOXYzine 50 MG TAB PO SCH (08:38)
[2017-09-20] MEDS: clonazePAM 1 MG TAB PO SCH (08:38)
[2017-09-20] MEDS: DULoxetine 30 MG CAP (CYMBALTA) PO SCH (08:38)
[2017-09-20] MEDS: NICOTINE 21MG/24HR 1 EA TRANSDERMAL TD SCH (08:39)
[2017-09-20] MEDS: OMEPRAZOLE 20 MG CAP PO SCH (08:39)
[2017-09-20] MEDS: ENOXAPARIN 30 MG/0.3 ML SYR (J1650) SC SCH (08:39)
[2017-09-20 09:27] LABS: EOSINOPHILS 3 % (0-5)
--- NOTE | 2017-09-20 11:20 | DS.PDOC ---
Discharge Summary General Date of Admission Sep 16, 2017 at 10:09 Date of Discharge 09/20/17 Discharge Summary DISCHARGE DIAGNOSES: 1. UTI. 2. Hx of MS. 3. Chronic pain HISTORY OF PRESENT ILLNESS: 52-year-old female with past medical history of multiple sclerosis diagnosed in 2005, chronic pain secondary to multiple sclerosis, and anxiety/depression presented to the ER with a chief complaint of increased lethargy/weakness over the last 3 days. The patient stated that she has been feeling subjective fevers at home. In addition, the patient's stated that the patient's mentation has also been more delayed. He does note, the patient has had similar symptoms secondary to UTI's in the past. The patient denied any other medical complaints HOSPITAL COURSE: Patient admitted for further evaluation and treatment. Case discussed with neurology, did not feel this was MS exacerbation, recommendations for MRI. However patient was unable to have MRI secondary to metal fragments around her heart. UTI was diagnosed, cultures/sensitivities returned with antibiotic regiment transitioned to PO. Patient's symptoms resolved, she did complete an adequate course of antibiotics in the hospital. Patient discharged in stable condition with outpatient follow up as scheduled in [place]. DISCHARGE MEDICATIONS: Please see below. ALLERGIES: Please see below. PHYSICAL EXAMINATION ON DISCHARGE: VITAL SIGNS: Please see below. GENERAL: NAD HEENT: NC/AT, EOMI, PERRL NECK: supple CARDIOVASCULAR EXAMINATION: +S1S2, RRR RESPIRATORY EXAMINATION: CTA B/L ABDOMINAL EXAMINATION: soft, NT, +BS PSYCHIATRIC EXAMINATION: AAOx3 ACTIVITY: [As tolerated]. DISCHARGE PLAN: Discharge home DISCHARGE INSTRUCTIONS: 1. Follow up with PCP as scheduled. DISCHARGE CONDITION: [Stable]. TIME SPENT ON DISCHARGE: Greater than 30 minutes. Vital Signs/I&Os Vital Signs Date Time Temp Pulse Resp B/P (MAP) Pulse Ox O2 Delivery O2 Flow Rate FiO2 09/20/17 08:38 57 122/70 09/20/17 06:00 97.5 18 97 Nasal Cannula 2.0 09/15/17 22:15 96 I&O- Last 24 Hours up to 6 AM 09/21/17 05:59 Intake Total 20 ml Output Total 650 ml Balance -630 ml Laboratory Data Labs 24H Laboratory Tests 2 09/20/17 06:56: Immature Granulocyte % (Auto) , Nucleated Red Blood Cells % (auto) 0.0, Neutrophils 75, Lymphocytes (Manual) 11L, Monocytes (Manual) 9H, Eosinophils ( Manual) 3, Metamyelocytes 1H, Myelocytes 1H, Platelet Estimate NORMAL, Red Blood Cell Morphology NORMAL, Anion Gap 7L, Glomerular Filtration Rate > 60.0, Blood Urea Nitrogen 11, Creatinine 0.78, Sodium Level 140, Potassium Level 3.8, Chloride Level 103, Carbon Dioxide Level 30, Calcium Level 9.3 CBC/BMP Laboratory Tests 09/20/17 06:56 Red Blood Count 3.44 L, Mean Corpuscular Volume 84.0, Mean Corpuscular Hemoglobin 28.8, Mean Corpuscular Hemoglobin Concent 34.3, Red Cell Distribution Width 12.9, Calcium Level 9.3 Microbiology Microbiology 09/15/17 Blood Culture - Preliminary, Resulted No Growth after 72 hours. All specime... 09/18/17 MRSA Screen - Final, Complete 09/15/17 Urine Culture - Final, Complete Enterobacter Aerogenes Escherichia Coli Enterococcus Faecalis 09/15/17 Influenza Virus Type A Antigen - Final, Complete 09/15/17 Influenza Virus Type B Antigen - Final, Complete Discharge Medications Scheduled (Cymbalta) 60 Mg Cap, 60 MG PO BID, (Reported) (Nuedexta 20-10 mg) 1 Cap Cap, 1 CAP PO BID, (Reported) (Methenamine Hippurate) 1 Gm Tab, 1 GM PO DAILY, (Reported) Acyclovir (Acyclovir) 400 Mg Tab, 400 MG PO BID, (Reported) Amantadine HCl (Amantadine HCl) 100 Mg Tab, 100 MG PO BID, (Reported) Amitriptyline HCl (Amitriptyline HCl) 10 Mg Tab, 10 MG PO QHS, (Reported) Baclofen (Baclofen) 20 Mg Tab, 20 MG PO DAILY, (Reported) Baclofen (Baclofen) 20 Mg Tab, 40 MG PO QHS, (Reported) Clonazepam (Clonazepam) 1 Mg Tab, 1 MG PO BID, (Reported) Divalproex Sodium (Divalproex Sodium Dr) 500 Mg Tab, 500 MG PO QHS, (Reported) Ergocalciferol (Vitamin D) 50,000 Unit Cap, 50,000 UNIT PO ASDIRECTED, (Reported ) TAKES ON WEDNESDAY MORNINGS Fingolimod Hydrochloride (Gilenya) 0.5 Mg Cap, 0.5 MG PO DAILY, (Reported) Hydrochlorothiazide W/Triamter (Dyazide 37.5-25 mg) 1 Cap Cap, 1 CAP PO DAILY, ( Reported) Hydroxyzine Hcl (Hydroxyzine Hcl) 50 Mg Tab, 50 MG PO TID, (Reported) Meloxicam (Meloxicam) 15 Mg Tab, 15 MG PO DAILY, (Reported) Metoprolol Succinate (Metoprolol Succinate ER) 25 Mg Tab, 25 MG PO DAILY, ( Reported) Omeprazole (Omeprazole) 40 Mg Cap, 40 MG PO BID, (Reported) Phenytoin Sodium (Dilantin) 100 Mg Cap, 200 MG PO BID, (Reported) Pregabalin (Lyrica) 300 Mg Cap, 300 MG PO BID, (Reported) Trazodone HCl (Trazodone HCl) 100 Mg Tab, 100 MG PO QHS, (Reported) Scheduled PRN (Olopatadine HCl) 0.1 % Dimas, 0.1 % OU BID PRN for ITCHING, (Reported) Albuterol Sulfate (Ventolin Hfa) Aer, 2 PUFFS INH QID PRN for SHORTNESS OF BREATH, (Reported) Naproxen (Naproxen) 500 Mg Tab, 500 MG PO BID PRN for PAIN, (Reported) Ondansetron (Zofran) 8 Mg Tab, 8 MG PO TID PRN for NAUSEA, (Reported) Promethazine HCl (Promethazine HCl) 25 Mg Tab, 25 MG PO Q4H PRN for NAUSEA, ( Reported) Tizanidine Hydrochloride (Tizanidine Hcl) 4 Mg Tab, 4 MG PO TID PRN for MUSCLE SPASMS, (Reported) Allergies Coded Allergies: Cephalosporins (Verified Allergy, Intermediate, RASH, 03/06/13) Acetaminophen (Verified Allergy, Unknown, 06/28/13) Hydrocodone (Verified Allergy, Unknown, 06/28/13) Sulfa Drugs (Verified Allergy, Unknown, 03/06/13) Sulfa Drugs Cross Reactors (Verified Allergy, Unknown, 03/06/13) Oxycodone (Verified Adverse Reaction, Intermediate, PROJECTILE VOMITING, ) ISABEL GRAHAM MD Sep 20, 2017 11:20
== END 2017-09-20 11:55 | disposition home or self-care (01) | DRG 690 ==
LOC: M ED 19:21 → M ED INP 19:22 → M ICU 09-16 01:11 → OBSVTOIN 09-16 10:09 → M MS5PR 09-17 17:13
PROVIDERS: ADMIT Internal Medicine; ATTEND Internal Medicine
DX: N39.0 Urinary tract infection, site not specified (principal); N17.9 Acute kidney failure, unspecified; G35 Multiple sclerosis; B96.20 Unspecified Escherichia coli [E. coli] as the cause of diseases classified elsewhere; J45.909 Unspecified asthma, uncomplicated; G89.29 Other chronic pain; B95.2 Enterococcus as the cause of diseases classified elsewhere; B96.89 Other specified bacterial agents as the cause of diseases classified elsewhere; F41.9 Anxiety disorder, unspecified; F32.9 Major depressive disorder, single episode, unspecified; R53.83 Other fatigue; R53.1 Weakness; Z79.899 Other long term (current) drug therapy; Z88.1 Allergy status to other antibiotic agents; Z88.5 Allergy status to narcotic agent; Z88.6 Allergy status to analgesic agent; Z88.2 Allergy status to sulfonamides; Z85.828 Personal history of other malignant neoplasm of skin; Z92.21 Personal history of antineoplastic chemotherapy

== ENCOUNTER 2018-06-21 19:31 | Inpatient (IN) | payer MEDICARE, BC, OTHER ==
[2018-06-21 20:42] LABS: BASO % 0.3 % (0.0-1.0); EOS # 0.1 10^3/uL (0.0-0.50); EOS % 0.8 % (0.0-3.0); HEMATOCRIT 31.5 % (36.0-47.0); HEMOGLOBIN 10.5 g/dl (12.0-15.5); IMMATURE GRANULOCYTE % 1.1 % (0-3.0); LYMPH # 0.7 10^3/uL (1.5-4.5); LYMPH % 10.2 % (24.0-44.0); MEAN CORPUSCULAR HEMOGLOBIN 26.8 pg (27.0-33.0); MEAN CORPUSCULAR HGB CONC 33.3 g/dl (32.0-36.5); MEAN CORPUSCULAR VOLUME 80.4 fl (80.0-96.0); MONO # 0.5 10^3/uL (0.0-0.8); MONO % 7.9 % (0.0-5.0); NEUTROPHILS # 5.2 10^3/uL (1.8-7.7); NEUTROPHILS % 79.7 % (36.0-66.0); PLATELET COUNT, AUTOMATED 237 10^3/uL (150-450); RED BLOOD COUNT 3.92 10^6/uL (4.00-5.40); RED CELL DISTRIBUTION WIDTH 14.8 % (11.5-14.5); WHITE BLOOD COUNT 6.6 10^3/uL (4.0-10.0)
[2018-06-21] MEDS: NS 1,000 ML IV (20:42)
[2018-06-21] MEDS: TRIMETHOBENZAMIDE HCL INJ 200 MG/2 ML VIAL (J3250) IM (20:42)
[2018-06-21 21:31] LABS: ALBUMIN/GLOBULIN RATIO 0.63 (1.00-1.93); ALKALINE PHOSPHATASE 225 U/L (45-117); ALT/SGPT 19 U/L (12-78); AMYLASE 14 U/L (25-115); ANION GAP 10 MEQ/L (8-16); AST/SGOT 29 U/L (7-37); BILIRUBIN,DIRECT 0.5 MG/DL (0.0-0.2); BILIRUBIN,TOTAL 0.8 MG/DL (0.2-1.0); BLOOD UREA NITROGEN 14 MG/DL (7-18); CALCIUM LEVEL 5.5 MG/DL (8.5-10.1); CARBON DIOXIDE LEVEL 30 MEQ/L (21-32); CHLORIDE LEVEL 94 MEQ/L (98-107); CPK CREATINE PHOSPHOKINASE 208 U/L (26-192); CREATININE FOR GFR 1.31 MG/DL (0.55-1.30); GLOMERULAR FILTRATION RATE 45.8 (>51); GLUCOSE, FASTING 90 MG/DL (70-100); LIPASE 106 U/L (73-393); POTASSIUM SERUM 2.6 MEQ/L (3.5-5.1); SODIUM LEVEL 134 MEQ/L (136-145); TOTAL PROTEIN 7.8 GM/DL (6.4-8.2)
[2018-06-21] MEDS: KCL 10MEQ/100ML SWI (KRUN) 10 MEQ in APPROPRIATE DILUENT 1 EA IV (22:21)
[2018-06-21 22:47] LABS: KETONE, URINE AUTO RFX NEGATIVE (NEGATIVE); MUCUS, URINE RFX SMALL (NEGATIVE); NITRITE, URINE AUTO RFX NEGATIVE (NEGATIVE); RBC, URINE AUTO RFX 13 /HPF (0-3); SPECIFIC GRAVITY UR AUTO RFX 1.003 (1.002-1.035); SQUAM EPITHELIAL CELL UR AURFX 0 /HPF (0-6)
[2018-06-21 22:48] LABS: LEUKOCYTE ESTERASE UR AUTO RFX 3+ (NEGATIVE); WBC, URINE AUTO RFX TNTC /HPF (0-3)
[2018-06-21 23:06] LABS: TROPONIN I < 0.02 NG/ML (< 0.10)
[2018-06-21 23:16] LABS: CK-MB VALUE MASS < 1.0 NG/ML (<3.6); MB/CK RELATIVE INDEX 0.48 (< OR =4)
[2018-06-21] MEDS: POTASSIUM CHLORIDE 10 MEQ SR TABLET PO (23:43)
[2018-06-21] MEDS: KCL 40MEQ in NS 1000ML 1,000 ML IV (23:43)
[2018-06-21 23:45] LABS: MAGNESIUM LEVEL 0.5 MG/DL (1.8-2.4)
[2018-06-21] MEDS ORDERED: ALBUTEROL 90 MCG/ACT 8GM HFA INHALER INH (23:45)
[2018-06-21] MEDS ORDERED: hydrOXYzine 50 MG TAB PO (23:45)
[2018-06-21] MEDS ORDERED: tiZANidine 4 MG TAB PO (23:45)
[2018-06-22] MEDS: CALCIUM GLUCONATE 1,000 MG in D5W MINI-BAG PLUS 100 ML IV ×3 (00:30→15:32)
[2018-06-22 01:55] LABS: ANION GAP 12 MEQ/L (8-16); BLOOD UREA NITROGEN 14 MG/DL (7-18); CALCIUM LEVEL 5.3 MG/DL (8.5-10.1); CARBON DIOXIDE LEVEL 27 MEQ/L (21-32); CHLORIDE LEVEL 99 MEQ/L (98-107); CREATININE FOR GFR 1.09 MG/DL (0.55-1.30); GLOMERULAR FILTRATION RATE 56.6 (>51); GLUCOSE, FASTING 87 MG/DL (70-100); POTASSIUM SERUM 2.7 MEQ/L (3.5-5.1); SODIUM LEVEL 138 MEQ/L (136-145)
[2018-06-22 02:05] LABS: MAGNESIUM LEVEL 0.5 MG/DL (1.8-2.4)
[2018-06-22] MEDS: traZODone 50 MG TAB PO (02:16)
[2018-06-22] MEDS: BACLOFEN 10 MG TAB PO ×5 (02:16→21:40)
[2018-06-22] MEDS: MELOXICAM (MOBIC) 7.5 MG TAB PO ×2 (02:16→08:31)
[2018-06-22] MEDS: METOPROLOL SUCC *XL* 25MG TAB (TopROL *XL*) PO ×2 (02:17→21:45)
[2018-06-22] MEDS: LevoFLOXacin IV 750 MG in APPROPRIATE DILUENT 1 EA IV (02:17)
[2018-06-22] MEDS: DULoxetine 30 MG CAP (CYMBALTA) PO ×3 (02:18→21:42)
[2018-06-22] MEDS: clonazePAM 1 MG TAB PO ×3 (02:18→21:42)
[2018-06-22] MEDS: DIVALPROEX 500 MG TAB PO ×3 (02:19→21:42)
[2018-06-22] MEDS: OMEPRAZOLE 20 MG CAP PO ×3 (02:19→21:41)
[2018-06-22] MEDS: PHENYTOIN ER 100 MG CAP PO ×2 (02:19→21:41)
[2018-06-22] MEDS: ONDANSETRON 4MG/2ML VIAL (J2405) IV (02:41)
[2018-06-22 03:01] LABS: PHOSPHORUS LEVEL 4.7 MG/DL (2.5-4.9)
[2018-06-22] MEDS: POTASSIUM CHLORIDE 10 MEQ SR TABLET PO ×4 (03:19→15:15)
[2018-06-22] MEDS: MAG SULF 1GM/100ML (MAG RUN) 1 GM in APPROPRIATE DILUENT 1 EA IV ×4 (04:14→18:51)
[2018-06-22] MEDS: HEPARIN SOD (PORCINE) 5000 UNITS/ML VIAL SC ×3 (05:27→21:43)
[2018-06-22 06:06] LABS: MAGNESIUM URINE RANDOM 0.3 MG/DL
[2018-06-22 06:09] LABS: CALCIUM,RANDOM URINE < 5.0 MG/DL
[2018-06-22 06:39] LABS: BASO % 0.2 % (0.0-1.0); EOS # 0.1 10^3/uL (0.0-0.50); EOS % 1.6 % (0.0-3.0); HEMATOCRIT 27.7 % (36.0-47.0); HEMOGLOBIN 9.3 g/dl (12.0-15.5); IMMATURE GRANULOCYTE % 1.3 % (0-3.0); LYMPH # 0.3 10^3/uL (1.5-4.5); LYMPH % 6.2 % (24.0-44.0); MEAN CORPUSCULAR HEMOGLOBIN 27.1 pg (27.0-33.0); MEAN CORPUSCULAR HGB CONC 33.6 g/dl (32.0-36.5); MEAN CORPUSCULAR VOLUME 80.8 fl (80.0-96.0); MONO # 0.7 10^3/uL (0.0-0.8); MONO % 13.2 % (0.0-5.0); NEUTROPHILS # 4.2 10^3/uL (1.8-7.7); NEUTROPHILS % 77.5 % (36.0-66.0); PLATELET COUNT, AUTOMATED 228 10^3/uL (150-450); RED BLOOD COUNT 3.43 10^6/uL (4.00-5.40); WHITE BLOOD COUNT 5.5 10^3/uL (4.0-10.0)
[2018-06-22 06:56] LABS: ANION GAP 11 MEQ/L (8-16); BLOOD UREA NITROGEN 11 MG/DL (7-18); CALCIUM LEVEL 5.8 MG/DL (8.5-10.1); CARBON DIOXIDE LEVEL 26 MEQ/L (21-32); CHLORIDE LEVEL 101 MEQ/L (98-107); CREATININE FOR GFR 1.03 MG/DL (0.55-1.30); GLOMERULAR FILTRATION RATE > 60.0 (>51); GLUCOSE, FASTING 87 MG/DL (70-100); POTASSIUM SERUM 2.9 MEQ/L (3.5-5.1); SODIUM LEVEL 138 MEQ/L (136-145)
[2018-06-22 07:02] LABS: CK-MB VALUE MASS < 1.0 NG/ML (<3.6); CPK CREATINE PHOSPHOKINASE 228 U/L (26-192); MB/CK RELATIVE INDEX 0.43 (< OR =4); TROPONIN I < 0.02 NG/ML (< 0.10)
[2018-06-22] MEDS: AMANTADINE 100 MG CAP PO ×2 (08:29→11:30)
[2018-06-22] MEDS: ACYCLOVIR 200 MG CAPSULE PO ×2 (08:30→21:42)
[2018-06-22] MEDS: PREGABALIN 100 MG CAP (LYRICA) PO ×2 (08:30→21:41)
[2018-06-22] MEDS ORDERED: DYAZIDE 37.5/25 CAP (TRIAM/HCTZ) PO (09:00)
[2018-06-22 11:56] LABS: TOTAL 25(OH) VITAMIN D 32.1 NG/ML (30.0-100.0)
[2018-06-22 11:57] LABS: PTH INTACT 176.4 PG/ML (18.5-88.0)
[2018-06-22] MEDS: KCL 40MEQ in NS 1000ML 1,000 ML IV (12:30)
[2018-06-22 13:48] LABS: POTASSIUM SERUM 3.8 MEQ/L (3.5-5.1)
[2018-06-22 13:57] LABS: CK-MB VALUE MASS < 1.0 NG/ML (<3.6); CPK CREATINE PHOSPHOKINASE 217 U/L (26-192); MB/CK RELATIVE INDEX 0.46 (< OR =4); TROPONIN I < 0.02 NG/ML (< 0.10)
[2018-06-22] MEDS: NS 1,000 ML IV (15:32)
[2018-06-23] MEDS: ONDANSETRON 4MG/2ML VIAL (J2405) IV ×2 (00:03→08:39)
[2018-06-23] MEDS: HEPARIN SOD (PORCINE) 5000 UNITS/ML VIAL SC ×3 (06:17→20:54)
[2018-06-23 06:39] LABS: BASO % 0.5 % (0.0-1.0); EOS # 0.3 10^3/uL (0.0-0.50); EOS % 5.9 % (0.0-3.0); HEMATOCRIT 28.6 % (36.0-47.0); HEMOGLOBIN 9.3 g/dl (12.0-15.5); IMMATURE GRANULOCYTE % 1.6 % (0-3.0); LYMPH # 0.5 10^3/uL (1.5-4.5); LYMPH % 12.5 % (24.0-44.0); MEAN CORPUSCULAR HGB CONC 32.5 g/dl (32.0-36.5); MEAN CORPUSCULAR VOLUME 83.1 fl (80.0-96.0); MONO # 0.6 10^3/uL (0.0-0.8); MONO % 14.1 % (0.0-5.0); NEUTROPHILS # 2.8 10^3/uL (1.8-7.7); NEUTROPHILS % 65.4 % (36.0-66.0); PLATELET COUNT, AUTOMATED 221 10^3/uL (150-450); RED BLOOD COUNT 3.44 10^6/uL (4.00-5.40); RED CELL DISTRIBUTION WIDTH 15.4 % (11.5-14.5); WHITE BLOOD COUNT 4.3 10^3/uL (4.0-10.0)
[2018-06-23 07:03] LABS: ANION GAP 8 MEQ/L (8-16); BLOOD UREA NITROGEN 9 MG/DL (7-18); CALCIUM LEVEL 6.9 MG/DL (8.5-10.1); CARBON DIOXIDE LEVEL 26 MEQ/L (21-32); CHLORIDE LEVEL 110 MEQ/L (98-107); CREATININE FOR GFR 0.86 MG/DL (0.55-1.30); GLOMERULAR FILTRATION RATE > 60.0 (>51); GLUCOSE, FASTING 88 MG/DL (70-100); MAGNESIUM LEVEL 2.1 MG/DL (1.8-2.4); POTASSIUM SERUM 4.8 MEQ/L (3.5-5.1); SODIUM LEVEL 144 MEQ/L (136-145)
[2018-06-23] MEDS: CALCIUM GLUCONATE 1,000 MG in D5W MINI-BAG PLUS 100 ML IV (08:39)
[2018-06-23] MEDS: SODIUM CHLORIDE 0.9% INJ 10 ML SYR IV ×2 (08:40→10:05)
[2018-06-23] MEDS: BACLOFEN 10 MG TAB PO ×4 (08:40→20:54)
[2018-06-23] MEDS: ACYCLOVIR 200 MG CAPSULE PO ×2 (08:40→20:53)
[2018-06-23] MEDS: OMEPRAZOLE 20 MG CAP PO ×2 (08:40→20:53)
[2018-06-23] MEDS: DIVALPROEX 500 MG TAB PO ×2 (08:40→20:53)
[2018-06-23] MEDS: AMANTADINE 100 MG CAP PO ×2 (08:41→12:08)
[2018-06-23] MEDS: clonazePAM 1 MG TAB PO ×2 (08:41→20:53)
[2018-06-23] MEDS: MELOXICAM (MOBIC) 7.5 MG TAB PO (08:41)
[2018-06-23] MEDS: PREGABALIN 100 MG CAP (LYRICA) PO ×2 (08:41→20:52)
[2018-06-23] MEDS: DULoxetine 30 MG CAP (CYMBALTA) PO ×2 (08:41→20:53)
[2018-06-23] MEDS: PHENYTOIN ER 100 MG CAP PO (20:53)
[2018-06-23] MEDS: METOPROLOL SUCC *XL* 25MG TAB (TopROL *XL*) PO (20:54)
[2018-06-23] MEDS: LevoFLOXacin IV 750 MG in APPROPRIATE DILUENT 1 EA IV (23:29)
[2018-06-24] MEDS: HEPARIN SOD (PORCINE) 5000 UNITS/ML VIAL SC ×3 (05:05→21:54)
[2018-06-24 05:43] LABS: BASO % 0.6 % (0.0-1.0); EOS # 0.2 10^3/uL (0.0-0.50); EOS % 6.4 % (0.0-3.0); HEMATOCRIT 27.5 % (36.0-47.0); HEMOGLOBIN 9.2 g/dl (12.0-15.5); IMMATURE GRANULOCYTE % 3.1 % (0-3.0); LYMPH # 0.5 10^3/uL (1.5-4.5); LYMPH % 15.1 % (24.0-44.0); MEAN CORPUSCULAR HEMOGLOBIN 26.9 pg (27.0-33.0); MEAN CORPUSCULAR HGB CONC 33.5 g/dl (32.0-36.5); MEAN CORPUSCULAR VOLUME 80.4 fl (80.0-96.0); MONO # 0.4 10^3/uL (0.0-0.8); MONO % 11.7 % (0.0-5.0); NEUTROPHILS # 2.3 10^3/uL (1.8-7.7); NEUTROPHILS % 63.1 % (36.0-66.0); PLATELET COUNT, AUTOMATED 267 10^3/uL (150-450); RED BLOOD COUNT 3.42 10^6/uL (4.00-5.40); RED CELL DISTRIBUTION WIDTH 15.3 % (11.5-14.5); WHITE BLOOD COUNT 3.6 10^3/uL (4.0-10.0)
[2018-06-24 06:05] LABS: MAGNESIUM LEVEL 1.9 MG/DL (1.8-2.4)
[2018-06-24 06:07] LABS: ANION GAP 7 MEQ/L (8-16); BLOOD UREA NITROGEN 8 MG/DL (7-18); CALCIUM LEVEL 7.9 MG/DL (8.5-10.1); CARBON DIOXIDE LEVEL 28 MEQ/L (21-32); CHLORIDE LEVEL 107 MEQ/L (98-107); GLOMERULAR FILTRATION RATE > 60.0 (>51); GLUCOSE, FASTING 88 MG/DL (70-100); POTASSIUM SERUM 4.4 MEQ/L (3.5-5.1); SODIUM LEVEL 142 MEQ/L (136-145)
[2018-06-24] MEDS: SODIUM CHLORIDE 0.9% INJ 10 ML SYR IV (09:00)
[2018-06-24 09:39] LABS: MAGNESIUM RBC LEVEL 4.4 mg/dL (4.2-6.8)
[2018-06-24] MEDS: AMANTADINE 100 MG CAP PO ×2 (09:44→13:31)
[2018-06-24] MEDS: PREGABALIN 100 MG CAP (LYRICA) PO ×2 (09:44→21:55)
[2018-06-24] MEDS: OMEPRAZOLE 20 MG CAP PO ×2 (09:44→21:54)
[2018-06-24] MEDS: clonazePAM 1 MG TAB PO ×2 (09:44→21:55)
[2018-06-24] MEDS: BACLOFEN 10 MG TAB PO ×4 (09:45→21:53)
[2018-06-24] MEDS: MELOXICAM (MOBIC) 7.5 MG TAB PO (09:45)
[2018-06-24] MEDS: DIVALPROEX 500 MG TAB PO ×2 (09:45→21:54)
[2018-06-24] MEDS: ACYCLOVIR 200 MG CAPSULE PO ×2 (09:45→21:54)
[2018-06-24] MEDS: DULoxetine 30 MG CAP (CYMBALTA) PO ×2 (09:45→21:54)
[2018-06-24] MEDS: ONDANSETRON 4MG/2ML VIAL (J2405) IV (13:31)
[2018-06-24] MEDS: PHENYTOIN ER 100 MG CAP PO (21:53)
[2018-06-24] MEDS: METOPROLOL SUCC *XL* 25MG TAB (TopROL *XL*) PO (21:56)
[2018-06-25] MEDS: ONDANSETRON 4MG/2ML VIAL (J2405) IV ×2 (01:00→10:18)
[2018-06-25] MEDS: SODIUM CHLORIDE 0.9% INJ 10 ML SYR IV ×2 (05:45→08:17)
[2018-06-25] MEDS: LevoFLOXacin 750 MG TABLET PO (05:45)
[2018-06-25] MEDS: HEPARIN SOD (PORCINE) 5000 UNITS/ML VIAL SC ×3 (05:45→22:12)
[2018-06-25 06:15] LABS: BASO % 0.6 % (0.0-1.0); EOS # 0.2 10^3/uL (0.0-0.50); EOS % 4.8 % (0.0-3.0); HEMATOCRIT 28.1 % (36.0-47.0); HEMOGLOBIN 9.1 g/dl (12.0-15.5); IMMATURE GRANULOCYTE % 3.1 % (0-3.0); LYMPH # 0.7 10^3/uL (1.5-4.5); LYMPH % 18.8 % (24.0-44.0); MEAN CORPUSCULAR HEMOGLOBIN 26.4 pg (27.0-33.0); MEAN CORPUSCULAR HGB CONC 32.4 g/dl (32.0-36.5); MEAN CORPUSCULAR VOLUME 81.4 fl (80.0-96.0); MONO # 0.4 10^3/uL (0.0-0.8); MONO % 9.9 % (0.0-5.0); NEUTROPHILS # 2.2 10^3/uL (1.8-7.7); NEUTROPHILS % 62.8 % (36.0-66.0); PLATELET COUNT, AUTOMATED 259 10^3/uL (150-450); RED BLOOD COUNT 3.45 10^6/uL (4.00-5.40); RED CELL DISTRIBUTION WIDTH 15.2 % (11.5-14.5); WHITE BLOOD COUNT 3.5 10^3/uL (4.0-10.0)
[2018-06-25 06:55] LABS: ANION GAP 8 MEQ/L (8-16); BLOOD UREA NITROGEN 8 MG/DL (7-18); CALCIUM LEVEL 7.8 MG/DL (8.5-10.1); CARBON DIOXIDE LEVEL 29 MEQ/L (21-32); CHLORIDE LEVEL 106 MEQ/L (98-107); GLOMERULAR FILTRATION RATE > 60.0 (>51); GLUCOSE, FASTING 79 MG/DL (70-100); MAGNESIUM LEVEL 1.6 MG/DL (1.8-2.4); SODIUM LEVEL 143 MEQ/L (136-145)
[2018-06-25] MEDS: MAGNESIUM OXIDE 400 MG TAB (MAG-OX) PO ×2 (08:14→22:14)
[2018-06-25] MEDS: DIVALPROEX 500 MG TAB PO ×2 (08:15→22:15)
[2018-06-25] MEDS: PREGABALIN 100 MG CAP (LYRICA) PO ×2 (08:15→22:14)
[2018-06-25] MEDS: BACLOFEN 10 MG TAB PO ×4 (08:16→22:12)
[2018-06-25] MEDS: OMEPRAZOLE 20 MG CAP PO ×2 (08:16→22:12)
[2018-06-25] MEDS: ACYCLOVIR 200 MG CAPSULE PO ×2 (08:16→22:15)
[2018-06-25] MEDS: DULoxetine 30 MG CAP (CYMBALTA) PO ×2 (08:16→22:15)
[2018-06-25] MEDS: clonazePAM 1 MG TAB PO ×2 (08:16→22:15)
[2018-06-25] MEDS: MELOXICAM (MOBIC) 7.5 MG TAB PO (08:17)
[2018-06-25] MEDS: AMANTADINE 100 MG CAP PO ×2 (08:17→12:06)
[2018-06-25] MEDS: PHENYTOIN ER 100 MG CAP PO (22:15)
[2018-06-25] MEDS: METOPROLOL SUCC *XL* 25MG TAB (TopROL *XL*) PO (22:16)
[2018-06-26] MEDS: SODIUM CHLORIDE 0.9% INJ 10 ML SYR IV ×2 (05:54→09:20)
[2018-06-26] MEDS: HEPARIN SOD (PORCINE) 5000 UNITS/ML VIAL SC ×3 (05:54→21:27)
[2018-06-26 06:10] LABS: BASO % 0.7 % (0.0-1.0); EOS # 0.2 10^3/uL (0.0-0.50); EOS % 3.3 % (0.0-3.0); HEMATOCRIT 29.3 % (36.0-47.0); HEMOGLOBIN 9.7 g/dl (12.0-15.5); IMMATURE GRANULOCYTE % 4.4 % (0-3.0); LYMPH # 0.6 10^3/uL (1.5-4.5); MEAN CORPUSCULAR HEMOGLOBIN 27.2 pg (27.0-33.0); MEAN CORPUSCULAR HGB CONC 33.1 g/dl (32.0-36.5); MEAN CORPUSCULAR VOLUME 82.3 fl (80.0-96.0); MONO # 0.4 10^3/uL (0.0-0.8); MONO % 8.5 % (0.0-5.0); NEUTROPHILS # 3.3 10^3/uL (1.8-7.7); NEUTROPHILS % 71.1 % (36.0-66.0); PLATELET COUNT, AUTOMATED 268 10^3/uL (150-450); RED BLOOD COUNT 3.56 10^6/uL (4.00-5.40); WHITE BLOOD COUNT 4.6 10^3/uL (4.0-10.0)
[2018-06-26 06:36] LABS: ANION GAP 9 MEQ/L (8-16); BLOOD UREA NITROGEN 8 MG/DL (7-18); CALCIUM LEVEL 7.9 MG/DL (8.5-10.1); CARBON DIOXIDE LEVEL 30 MEQ/L (21-32); CHLORIDE LEVEL 106 MEQ/L (98-107); CREATININE FOR GFR 1.02 MG/DL (0.55-1.30); GLOMERULAR FILTRATION RATE > 60.0 (>51); GLUCOSE, FASTING 126 MG/DL (70-100); MAGNESIUM LEVEL 1.7 MG/DL (1.8-2.4); POTASSIUM SERUM 3.6 MEQ/L (3.5-5.1); SODIUM LEVEL 145 MEQ/L (136-145)
[2018-06-26] MEDS: MAGNESIUM OXIDE 400 MG TAB (MAG-OX) PO ×2 (09:00→21:26)
[2018-06-26] MEDS: ACYCLOVIR 200 MG CAPSULE PO ×2 (09:19→21:24)
[2018-06-26] MEDS: clonazePAM 1 MG TAB PO ×2 (09:19→21:26)
[2018-06-26] MEDS: DULoxetine 30 MG CAP (CYMBALTA) PO ×2 (09:19→21:25)
[2018-06-26] MEDS: AMANTADINE 100 MG CAP PO ×2 (09:19→12:36)
[2018-06-26] MEDS: BACLOFEN 10 MG TAB PO ×4 (09:19→21:25)
[2018-06-26] MEDS: OMEPRAZOLE 20 MG CAP PO ×2 (09:19→21:26)
[2018-06-26] MEDS: DIVALPROEX 500 MG TAB PO ×2 (09:20→21:26)
[2018-06-26] MEDS: PREGABALIN 100 MG CAP (LYRICA) PO ×2 (09:20→21:25)
[2018-06-26] MEDS: MELOXICAM (MOBIC) 7.5 MG TAB PO (09:20)
[2018-06-26] MEDS: PHENYTOIN ER 100 MG CAP PO (21:24)
[2018-06-26] MEDS: METOPROLOL SUCC *XL* 25MG TAB (TopROL *XL*) PO (21:26)
[2018-06-27] MEDS: LevoFLOXacin 750 MG TABLET PO (05:05)
[2018-06-27] MEDS: SODIUM CHLORIDE 0.9% INJ 10 ML SYR IV ×2 (05:06→09:00)
[2018-06-27] MEDS: HEPARIN SOD (PORCINE) 5000 UNITS/ML VIAL SC ×3 (05:06→21:09)
[2018-06-27 05:26] LABS: BASO % 0.8 % (0.0-1.0); EOS # 0.2 10^3/uL (0.0-0.50); EOS % 3.6 % (0.0-3.0); HEMATOCRIT 30.3 % (36.0-47.0); IMMATURE GRANULOCYTE % 4.8 % (0-3.0); LYMPH # 0.7 10^3/uL (1.5-4.5); LYMPH % 12.9 % (24.0-44.0); MEAN CORPUSCULAR VOLUME 81.7 fl (80.0-96.0); MONO # 0.4 10^3/uL (0.0-0.8); NEUTROPHILS # 3.5 10^3/uL (1.8-7.7); NEUTROPHILS % 69.9 % (36.0-66.0); PLATELET COUNT, AUTOMATED 271 10^3/uL (150-450); RED BLOOD COUNT 3.71 10^6/uL (4.00-5.40); RED CELL DISTRIBUTION WIDTH 15.1 % (11.5-14.5)
[2018-06-27 06:23] LABS: ANION GAP 9 MEQ/L (8-16); BLOOD UREA NITROGEN 8 MG/DL (7-18); CALCIUM LEVEL 8.6 MG/DL (8.5-10.1); CARBON DIOXIDE LEVEL 31 MEQ/L (21-32); CHLORIDE LEVEL 107 MEQ/L (98-107); CREATININE FOR GFR 0.92 MG/DL (0.55-1.30); GLOMERULAR FILTRATION RATE > 60.0 (>51); GLUCOSE, FASTING 82 MG/DL (70-100); MAGNESIUM LEVEL 1.8 MG/DL (1.8-2.4); POTASSIUM SERUM 3.9 MEQ/L (3.5-5.1); SODIUM LEVEL 147 MEQ/L (136-145)
[2018-06-27] MEDS: AMANTADINE 100 MG CAP PO ×2 (10:17→12:57)
[2018-06-27] MEDS: ACYCLOVIR 200 MG CAPSULE PO ×2 (10:18→21:11)
[2018-06-27] MEDS: clonazePAM 1 MG TAB PO ×2 (10:18→21:11)
[2018-06-27] MEDS: DULoxetine 30 MG CAP (CYMBALTA) PO ×2 (10:18→21:10)
[2018-06-27] MEDS: OMEPRAZOLE 20 MG CAP PO ×2 (10:18→21:11)
[2018-06-27] MEDS: BACLOFEN 10 MG TAB PO ×4 (10:18→21:12)
[2018-06-27] MEDS: DIVALPROEX 500 MG TAB PO ×2 (10:19→21:11)
[2018-06-27] MEDS: PREGABALIN 100 MG CAP (LYRICA) PO ×2 (10:19→21:10)
[2018-06-27] MEDS: MELOXICAM (MOBIC) 7.5 MG TAB PO (10:19)
[2018-06-27] MEDS: PHENYTOIN ER 100 MG CAP PO (21:10)
[2018-06-27] MEDS: SENNA 8.6 MG TAB (SENOKOT) PO (21:11)
[2018-06-27] MEDS: METOPROLOL SUCC *XL* 25MG TAB (TopROL *XL*) PO (21:12)
[2018-06-28] MEDS: HEPARIN SOD (PORCINE) 5000 UNITS/ML VIAL SC ×3 (05:16→21:09)
[2018-06-28] MEDS: SODIUM CHLORIDE 0.9% INJ 10 ML SYR IV ×2 (05:37→08:32)
[2018-06-28 05:51] LABS: BASO % 0.6 % (0.0-1.0); EOS # 0.2 10^3/uL (0.0-0.50); EOS % 3.7 % (0.0-3.0); HEMATOCRIT 30.6 % (36.0-47.0); HEMOGLOBIN 10.1 g/dl (12.0-15.5); LYMPH # 0.6 10^3/uL (1.5-4.5); LYMPH % 8.9 % (24.0-44.0); MEAN CORPUSCULAR HEMOGLOBIN 27.2 pg (27.0-33.0); MEAN CORPUSCULAR VOLUME 82.3 fl (80.0-96.0); MONO # 0.5 10^3/uL (0.0-0.8); NEUTROPHILS # 4.9 10^3/uL (1.8-7.7); NEUTROPHILS % 75.8 % (36.0-66.0); PLATELET COUNT, AUTOMATED 262 10^3/uL (150-450); RED BLOOD COUNT 3.72 10^6/uL (4.00-5.40); RED CELL DISTRIBUTION WIDTH 14.9 % (11.5-14.5); WHITE BLOOD COUNT 6.4 10^3/uL (4.0-10.0)
[2018-06-28 06:19] LABS: ANION GAP 7 MEQ/L (8-16); BLOOD UREA NITROGEN 12 MG/DL (7-18); CALCIUM LEVEL 8.6 MG/DL (8.5-10.1); CARBON DIOXIDE LEVEL 32 MEQ/L (21-32); CHLORIDE LEVEL 104 MEQ/L (98-107); CREATININE FOR GFR 0.96 MG/DL (0.55-1.30); GLOMERULAR FILTRATION RATE > 60.0 (>51); GLUCOSE, FASTING 84 MG/DL (70-100); MAGNESIUM LEVEL 1.8 MG/DL (1.8-2.4); POTASSIUM SERUM 3.8 MEQ/L (3.5-5.1); SODIUM LEVEL 143 MEQ/L (136-145)
[2018-06-28] MEDS: PREGABALIN 100 MG CAP (LYRICA) PO ×2 (08:29→20:46)
[2018-06-28] MEDS: BACLOFEN 10 MG TAB PO ×4 (08:30→20:45)
[2018-06-28] MEDS: DIVALPROEX 500 MG TAB PO ×2 (08:30→20:45)
[2018-06-28] MEDS: ACYCLOVIR 200 MG CAPSULE PO ×2 (08:30→20:42)
[2018-06-28] MEDS: DULoxetine 30 MG CAP (CYMBALTA) PO ×2 (08:30→20:45)
[2018-06-28] MEDS: OMEPRAZOLE 20 MG CAP PO ×2 (08:31→20:45)
[2018-06-28] MEDS: SENNA 8.6 MG TAB (SENOKOT) PO ×2 (08:31→20:45)
[2018-06-28] MEDS: AMANTADINE 100 MG CAP PO ×2 (08:31→12:32)
[2018-06-28] MEDS: clonazePAM 1 MG TAB PO ×2 (08:32→20:44)
[2018-06-28] MEDS: MELOXICAM (MOBIC) 7.5 MG TAB PO (08:32)
[2018-06-28] MEDS: PHENYTOIN ER 100 MG CAP PO (20:41)
[2018-06-28] MEDS: METOPROLOL SUCC *XL* 25MG TAB (TopROL *XL*) PO (20:44)
[2018-06-29] MEDS: LevoFLOXacin 750 MG TABLET PO (05:09)
[2018-06-29] MEDS: HEPARIN SOD (PORCINE) 5000 UNITS/ML VIAL SC ×3 (05:09→21:27)
[2018-06-29] MEDS: SODIUM CHLORIDE 0.9% INJ 10 ML SYR IV ×3 (05:21→13:54)
[2018-06-29 05:47] LABS: MAGNESIUM LEVEL 1.9 MG/DL (1.8-2.4)
[2018-06-29] MEDS: PREGABALIN 100 MG CAP (LYRICA) PO (10:17)
[2018-06-29] MEDS: SENNA 8.6 MG TAB (SENOKOT) PO ×2 (10:17→21:27)
[2018-06-29] MEDS: OMEPRAZOLE 20 MG CAP PO ×2 (10:18→21:25)
[2018-06-29] MEDS: ACYCLOVIR 200 MG CAPSULE PO ×2 (10:18→21:27)
[2018-06-29] MEDS: MELOXICAM (MOBIC) 7.5 MG TAB PO (10:18)
[2018-06-29] MEDS: BACLOFEN 10 MG TAB PO ×4 (10:18→21:26)
[2018-06-29] MEDS: AMANTADINE 100 MG CAP PO ×2 (10:19→13:12)
[2018-06-29] MEDS: DIVALPROEX 500 MG TAB PO ×2 (10:19→21:25)
[2018-06-29] MEDS: DULoxetine 30 MG CAP (CYMBALTA) PO ×2 (10:19→21:26)
[2018-06-29] MEDS: clonazePAM 1 MG TAB PO ×2 (10:19→21:27)
[2018-06-29] MEDS ORDERED: tiZANidine 4 MG TAB PO (14:00)
[2018-06-29] MEDS ORDERED: traZODone 50 MG TAB PO (14:00)
[2018-06-29] MEDS ORDERED: PILL CRUSHER/CUTTER 1 EACH XX (14:15)
[2018-06-29 14:16] LABS: BASO % 0.5 % (0.0-1.0); EOS # 0.2 10^3/uL (0.0-0.50); EOS % 3.2 % (0.0-3.0); HEMATOCRIT 31.7 % (36.0-47.0); HEMOGLOBIN 10.4 g/dl (12.0-15.5); IMMATURE GRANULOCYTE % 4.2 % (0-3.0); LYMPH # 0.8 10^3/uL (1.5-4.5); LYMPH % 12.2 % (24.0-44.0); MEAN CORPUSCULAR HEMOGLOBIN 27.2 pg (27.0-33.0); MEAN CORPUSCULAR HGB CONC 32.8 g/dl (32.0-36.5); MEAN CORPUSCULAR VOLUME 82.8 fl (80.0-96.0); MONO # 0.5 10^3/uL (0.0-0.8); MONO % 8.6 % (0.0-5.0); NEUTROPHILS # 4.4 10^3/uL (1.8-7.7); NEUTROPHILS % 71.3 % (36.0-66.0); PLATELET COUNT, AUTOMATED 302 10^3/uL (150-450); RED BLOOD COUNT 3.83 10^6/uL (4.00-5.40); RED CELL DISTRIBUTION WIDTH 15.1 % (11.5-14.5); WHITE BLOOD COUNT 6.2 10^3/uL (4.0-10.0)
[2018-06-29] MEDS ORDERED: PROHANCE 279.3MG/ML 5ML VIAL (A9576) As Ordered (14:29)
[2018-06-29] MEDS ORDERED: PROHANCE 279.3MG/ML 15ML VIAL (A9576) As Ordered (14:30)
[2018-06-29 14:38] LABS: ANION GAP 8 MEQ/L (8-16); BLOOD UREA NITROGEN 19 MG/DL (7-18); CALCIUM LEVEL 8.4 MG/DL (8.5-10.1); CARBON DIOXIDE LEVEL 31 MEQ/L (21-32); CHLORIDE LEVEL 104 MEQ/L (98-107); CREATININE FOR GFR 1.05 MG/DL (0.55-1.30); GLOMERULAR FILTRATION RATE 59.1 (>51); GLUCOSE, FASTING 87 MG/DL (70-100); PHENYTOIN (DILANTIN) 9.7 UG/ML (10.0-20.0); SODIUM LEVEL 143 MEQ/L (136-145)
[2018-06-29 16:09] LABS: C REACTIVE PROTEIN QUANTITATIV 1.95 MG/DL (0.00-0.30)
[2018-06-29] MEDS: PREGABALIN 75 MG CAP(LYRICA) PO (21:25)
[2018-06-29] MEDS: PHENYTOIN ER 100 MG CAP PO (21:25)
[2018-06-29] MEDS: METOPROLOL SUCC *XL* 25MG TAB (TopROL *XL*) PO (21:26)
[2018-06-30] MEDS: HEPARIN SOD (PORCINE) 5000 UNITS/ML VIAL SC ×3 (05:05→20:50)
[2018-06-30] MEDS: SODIUM CHLORIDE 0.9% INJ 10 ML SYR IV ×3 (05:06→20:45)
[2018-06-30 05:23] LABS: BASO % 0.7 % (0.0-1.0); EOS # 0.2 10^3/uL (0.0-0.50); EOS % 3.6 % (0.0-3.0); HEMATOCRIT 30.2 % (36.0-47.0); HEMOGLOBIN 9.8 g/dl (12.0-15.5); IMMATURE GRANULOCYTE % 4.8 % (0-3.0); LYMPH # 0.7 10^3/uL (1.5-4.5); LYMPH % 11.9 % (24.0-44.0); MEAN CORPUSCULAR HEMOGLOBIN 26.7 pg (27.0-33.0); MEAN CORPUSCULAR HGB CONC 32.5 g/dl (32.0-36.5); MEAN CORPUSCULAR VOLUME 82.3 fl (80.0-96.0); MONO # 0.5 10^3/uL (0.0-0.8); NEUTROPHILS # 4.1 10^3/uL (1.8-7.7); PLATELET COUNT, AUTOMATED 271 10^3/uL (150-450); RED BLOOD COUNT 3.67 10^6/uL (4.00-5.40); WHITE BLOOD COUNT 5.9 10^3/uL (4.0-10.0)
[2018-06-30 06:25] LABS: C REACTIVE PROTEIN QUANTITATIV 1.48 MG/DL (0.00-0.30)
[2018-06-30 06:27] LABS: ALBUMIN 2.7 GM/DL (3.2-5.2); ALBUMIN/GLOBULIN RATIO 0.69 (1.00-1.93); ALKALINE PHOSPHATASE 190 U/L (45-117); ALT/SGPT 16 U/L (12-78); ANION GAP 8 MEQ/L (8-16); AST/SGOT 11 U/L (7-37); BILIRUBIN,TOTAL 0.2 MG/DL (0.2-1.0); BLOOD UREA NITROGEN 19 MG/DL (7-18); CALCIUM LEVEL 8.7 MG/DL (8.5-10.1); CARBON DIOXIDE LEVEL 30 MEQ/L (21-32); CHLORIDE LEVEL 104 MEQ/L (98-107); CREATININE FOR GFR 1.24 MG/DL (0.55-1.30); GLOMERULAR FILTRATION RATE 48.7 (>51); GLUCOSE, FASTING 86 MG/DL (70-100); POTASSIUM SERUM 4.1 MEQ/L (3.5-5.1); SODIUM LEVEL 142 MEQ/L (136-145); TOTAL PROTEIN 6.6 GM/DL (6.4-8.2)
[2018-06-30] MEDS: MELOXICAM (MOBIC) 7.5 MG TAB PO (09:40)
[2018-06-30] MEDS: AMANTADINE 100 MG CAP PO ×2 (09:40→12:35)
[2018-06-30] MEDS: ACYCLOVIR 200 MG CAPSULE PO ×2 (09:40→20:46)
[2018-06-30] MEDS: clonazePAM 1 MG TAB PO ×2 (09:41→20:47)
[2018-06-30] MEDS: OMEPRAZOLE 20 MG CAP PO ×2 (09:41→20:48)
[2018-06-30] MEDS: BACLOFEN 10 MG TAB PO ×4 (09:41→20:48)
[2018-06-30] MEDS: PREGABALIN 75 MG CAP(LYRICA) PO (09:41)
[2018-06-30] MEDS: DIVALPROEX 500 MG TAB PO ×2 (09:41→20:49)
[2018-06-30] MEDS: D5W/0.45% SODIUM CHLORIDE 1,000 ML IV ×2 (09:42→10:34)
[2018-06-30] MEDS: SENNA 8.6 MG TAB (SENOKOT) PO ×2 (09:42→20:47)
[2018-06-30] MEDS: DULoxetine 30 MG CAP (CYMBALTA) PO ×2 (09:43→20:48)
[2018-06-30] MEDS: LACTULOSE 20 GM/30 ML SYRUP UD PO ×3 (12:34→23:28)
[2018-06-30] MEDS: PHENYTOIN ER 100 MG CAP PO (20:46)
[2018-06-30] MEDS: METOPROLOL SUCC *XL* 25MG TAB (TopROL *XL*) PO (20:47)
[2018-06-30] MEDS: PREGABALIN 100 MG CAP (LYRICA) PO (20:48)
[2018-07-01] MEDS: SODIUM CHLORIDE 0.9% INJ 10 ML SYR IV ×2 (05:16→08:46)
[2018-07-01] MEDS: LACTULOSE 20 GM/30 ML SYRUP UD PO ×2 (05:25→12:08)
[2018-07-01] MEDS: HEPARIN SOD (PORCINE) 5000 UNITS/ML VIAL SC (05:26)
[2018-07-01] MEDS: LevoFLOXacin 750 MG TABLET PO (05:26)
[2018-07-01 05:34] LABS: BASO % 0.5 % (0.0-1.0); EOS # 0.2 10^3/uL (0.0-0.50); EOS % 3.5 % (0.0-3.0); HEMATOCRIT 29.6 % (36.0-47.0); HEMOGLOBIN 9.6 g/dl (12.0-15.5); IMMATURE GRANULOCYTE % 3.9 % (0-3.0); LYMPH # 0.7 10^3/uL (1.5-4.5); LYMPH % 11.7 % (24.0-44.0); MEAN CORPUSCULAR HEMOGLOBIN 26.8 pg (27.0-33.0); MEAN CORPUSCULAR HGB CONC 32.4 g/dl (32.0-36.5); MEAN CORPUSCULAR VOLUME 82.7 fl (80.0-96.0); MONO # 0.6 10^3/uL (0.0-0.8); MONO % 8.8 % (0.0-5.0); NEUTROPHILS # 4.5 10^3/uL (1.8-7.7); NEUTROPHILS % 71.6 % (36.0-66.0); PLATELET COUNT, AUTOMATED 256 10^3/uL (150-450); RED BLOOD COUNT 3.58 10^6/uL (4.00-5.40); RED CELL DISTRIBUTION WIDTH 14.9 % (11.5-14.5); WHITE BLOOD COUNT 6.2 10^3/uL (4.0-10.0)
[2018-07-01 06:25] LABS: ALBUMIN 2.8 GM/DL (3.2-5.2); ALBUMIN/GLOBULIN RATIO 0.76 (1.00-1.93); ALKALINE PHOSPHATASE 195 U/L (45-117); ALT/SGPT 20 U/L (12-78); ANION GAP 8 MEQ/L (8-16); AST/SGOT 17 U/L (7-37); BILIRUBIN,TOTAL 0.3 MG/DL (0.2-1.0); BLOOD UREA NITROGEN 18 MG/DL (7-18); C REACTIVE PROTEIN QUANTITATIV 1.26 MG/DL (0.00-0.30); CALCIUM LEVEL 8.6 MG/DL (8.5-10.1); CARBON DIOXIDE LEVEL 31 MEQ/L (21-32); CHLORIDE LEVEL 104 MEQ/L (98-107); CREATININE FOR GFR 1.07 MG/DL (0.55-1.30); GLOMERULAR FILTRATION RATE 57.8 (>51); GLUCOSE, FASTING 88 MG/DL (70-100); POTASSIUM SERUM 3.8 MEQ/L (3.5-5.1); SODIUM LEVEL 143 MEQ/L (136-145); TOTAL PROTEIN 6.5 GM/DL (6.4-8.2)
[2018-07-01] MEDS: MELOXICAM (MOBIC) 7.5 MG TAB PO (08:03)
[2018-07-01] MEDS: BACLOFEN 10 MG TAB PO ×2 (08:04→12:52)
[2018-07-01] MEDS: DULoxetine 30 MG CAP (CYMBALTA) PO (08:04)
[2018-07-01] MEDS: ACYCLOVIR 200 MG CAPSULE PO (08:04)
[2018-07-01] MEDS: SENNA 8.6 MG TAB (SENOKOT) PO (08:04)
[2018-07-01] MEDS: OMEPRAZOLE 20 MG CAP PO (08:04)
[2018-07-01] MEDS: clonazePAM 1 MG TAB PO (08:05)
[2018-07-01] MEDS: PREGABALIN 100 MG CAP (LYRICA) PO (08:05)
[2018-07-01] MEDS: DIVALPROEX 500 MG TAB PO (08:05)
[2018-07-01] MEDS: AMANTADINE 100 MG CAP PO ×2 (08:05→12:52)
== END 2018-07-01 13:17 | DRG 690 ==
LOC: M ED INP 06-22 00:19 → M MSPAV 06-22 01:43 → M ED 19:31
DX: N39.0 Urinary tract infection, site not specified (principal); K59.2 Neurogenic bowel, not elsewhere classified; N17.9 Acute kidney failure, unspecified; G35 Multiple sclerosis; G40.909 Epilepsy, unspecified, not intractable, without status epilepticus; N31.9 Neuromuscular dysfunction of bladder, unspecified; I10 Essential (primary) hypertension; E55.9 Vitamin D deficiency, unspecified; E53.8 Deficiency of other specified B group vitamins; E66.9 Obesity, unspecified; M43.6 Torticollis; K21.9 Gastro-esophageal reflux disease without esophagitis; F41.9 Anxiety disorder, unspecified; B96.20 Unspecified Escherichia coli [E. coli] as the cause of diseases classified elsewhere; R11.2 Nausea with vomiting, unspecified; F32.9 Major depressive disorder, single episode, unspecified; K76.0 Fatty (change of) liver, not elsewhere classified; G47.00 Insomnia, unspecified; J45.909 Unspecified asthma, uncomplicated; G89.29 Other chronic pain; Z79.899 Other long term (current) drug therapy; Z93.6 Other artificial openings of urinary tract status; Z88.2 Allergy status to sulfonamides; Z88.1 Allergy status to other antibiotic agents; Z88.5 Allergy status to narcotic agent; Z87.891 Personal history of nicotine dependence; Z88.6 Allergy status to analgesic agent; Z85.828 Personal history of other malignant neoplasm of skin

== ENCOUNTER → 2018-07-05 | Outpatient (REF) ==
[2018-07-05 10:11] LABS: ANION GAP 8 MEQ/L (8-16); BLOOD UREA NITROGEN 18 MG/DL (7-18); CALCIUM LEVEL 9.2 MG/DL (8.5-10.1); CARBON DIOXIDE LEVEL 31 MEQ/L (21-32); CHLORIDE LEVEL 99 MEQ/L (98-107); CREATININE FOR GFR 1.06 MG/DL (0.55-1.30); GLOMERULAR FILTRATION RATE 58.4 (>51); GLUCOSE, FASTING 105 MG/DL (70-100); MAGNESIUM LEVEL 2.3 MG/DL (1.8-2.4); POTASSIUM SERUM 3.9 MEQ/L (3.5-5.1); SODIUM LEVEL 138 MEQ/L (136-145)
== END ==
LOC: SKLAB7 07:00
DX: E87.6 Hypokalemia (principal); E83.42 Hypomagnesemia

== ENCOUNTER → 2018-10-04 | Outpatient (REF) | payer MEDICARE, OTHER, MEDICAID ==
[2018-10-04 13:42] LABS: FREE T3 3.7 PG/ML (2.2-4.0); FREE T4 0.73 NG/DL (0.76-1.46)
== END ==
LOC: M SFHCPLAZ 11:14
DX: R79.89 Other specified abnormal findings of blood chemistry (principal); D72.9 Disorder of white blood cells, unspecified; Z74.09 Other reduced mobility; G35 Multiple sclerosis; Z79.899 Other long term (current) drug therapy
CPT/HCPCS: 84443

== ENCOUNTER 2018-10-24 12:46 | Inpatient (IN) | payer MEDICARE, BC, OTHER, MEDICAID ==
[2018-10-24 14:20] LABS: BILIRUBIN, URINE MANUAL NEGATIVE (NEGATIVE); BLOOD URINE MANUAL RFX POSITIVE (NEGATIVE); GLUCOSE, URINE (UA) MANUAL NEGATIVE (NEGATIVE); KETONE, URINE MANUAL NEGATIVE (NEGATIVE); MICROSCOPIC INDICATED? RFX YES (NO); NITRITE, URINE MANUAL RFX NEGATIVE (NEGATIVE); PROTEIN, URINE MANUAL REFLEX TRACE mg/dL (NEGATIVE); UROBILINOGEN, URINE MANUAL NORMAL (NORMAL)
[2018-10-24 14:22] LABS: HEMATOCRIT 36.7 % (36.0-47.0); HEMOGLOBIN 12.2 g/dl (12.0-15.5); MEAN CORPUSCULAR HEMOGLOBIN 27.2 pg (27.0-33.0); MEAN CORPUSCULAR HGB CONC 33.2 g/dl (32.0-36.5); MEAN CORPUSCULAR VOLUME 81.7 fl (80.0-96.0); PLATELET COUNT, AUTOMATED 199 10^3/uL (150-450); RED BLOOD COUNT 4.49 10^6/uL (4.00-5.40); RED CELL DISTRIBUTION WIDTH 15.5 % (11.5-14.5); WHITE BLOOD COUNT 5.4 10^3/uL (4.0-10.0)
[2018-10-24 14:28] LABS: WBC, URINE MAN RFX TNTC /hpf (0-3)
[2018-10-24 14:29] LABS: BACTERIA, URINE LARGE AMOUNT; HYALINE CAST, URINE NONE SEEN /lpf (0-1); MICROSCOPIC EXAM PERFORMED; SQUAMOUS EPITHELIAL CELL URINE NONE SEEN /hpf (SMALL AMT)
[2018-10-24 14:47] LABS: ALBUMIN 3.6 GM/DL (3.2-5.2); ALBUMIN/GLOBULIN RATIO 0.95 (1.00-1.93); ALKALINE PHOSPHATASE 300 U/L (45-117); ALT/SGPT 30 U/L (12-78); ANION GAP 12 MEQ/L (8-16); AST/SGOT 14 U/L (7-37); BILIRUBIN,DIRECT < 0.1 MG/DL (0.0-0.2); BILIRUBIN,TOTAL 0.3 MG/DL (0.2-1.0); BLOOD UREA NITROGEN 33 MG/DL (7-18); CALCIUM LEVEL 9.5 MG/DL (8.5-10.1); CARBON DIOXIDE LEVEL 27 MEQ/L (21-32); CHLORIDE LEVEL 99 MEQ/L (98-107); CREATININE FOR GFR 1.31 MG/DL (0.55-1.30); GLOMERULAR FILTRATION RATE 45.6 (>51); GLUCOSE, FASTING 112 MG/DL (70-100); POTASSIUM SERUM 3.7 MEQ/L (3.5-5.1); SODIUM LEVEL 138 MEQ/L (136-145); TOTAL PROTEIN 7.4 GM/DL (6.4-8.2)
[2018-10-24] MEDS: NS 1,000 ML IV ×2 (15:30→18:45)
[2018-10-24] MEDS: CIPROFLOXACIN 400 MG in APPROPRIATE DILUENT 1 EA IV (16:00)
[2018-10-24] MEDS: PREGABALIN 100 MG CAP (LYRICA) PO (21:04)
[2018-10-24] MEDS: PHENYTOIN ER 100 MG CAP PO (21:04)
[2018-10-24] MEDS: METOPROLOL SUCC *XL* 25MG TAB (TopROL *XL*) PO (21:05)
[2018-10-24] MEDS: BACLOFEN 10 MG TAB PO (21:05)
[2018-10-24] MEDS: HEPARIN SOD (PORCINE) 5000 UNITS/ML VIAL SC (21:06)
[2018-10-24] MEDS: DULoxetine 30 MG CAP (CYMBALTA) PO (21:42)
[2018-10-24] MEDS: DIVALPROEX 500MG *ER* TAB PO (21:44)
[2018-10-25] MEDS: clonazePAM 1 MG TAB PO (01:20)
[2018-10-25] MEDS: BACLOFEN 10 MG TAB PO ×4 (01:20→20:20)
[2018-10-25] MEDS: traZODone 50 MG TAB PO (01:21)
[2018-10-25] MEDS: CIPROFLOXACIN 400 MG in APPROPRIATE DILUENT 1 EA IV (04:16)
[2018-10-25 06:29] LABS: ALBUMIN 3.1 GM/DL (3.2-5.2); ALBUMIN/GLOBULIN RATIO 0.79 (1.00-1.93); ALKALINE PHOSPHATASE 301 U/L (45-117); ALT/SGPT 28 U/L (12-78); ANION GAP 8 MEQ/L (8-16); AST/SGOT 14 U/L (7-37); BILIRUBIN,TOTAL 0.3 MG/DL (0.2-1.0); BLOOD UREA NITROGEN 26 MG/DL (7-18); CALCIUM LEVEL 8.7 MG/DL (8.5-10.1); CARBON DIOXIDE LEVEL 30 MEQ/L (21-32); CHLORIDE LEVEL 99 MEQ/L (98-107); CREATININE FOR GFR 1.17 MG/DL (0.55-1.30); GLOMERULAR FILTRATION RATE 51.9 (>51); GLUCOSE, FASTING 110 MG/DL (70-100); POTASSIUM SERUM 3.6 MEQ/L (3.5-5.1); SODIUM LEVEL 137 MEQ/L (136-145)
[2018-10-25] MEDS: MELOXICAM (MOBIC) 7.5 MG TAB PO (08:49)
[2018-10-25] MEDS: PREGABALIN 100 MG CAP (LYRICA) PO ×2 (08:49→20:21)
[2018-10-25] MEDS: LACTULOSE 20 GM/30 ML SYRUP UD PO (08:49)
[2018-10-25] MEDS: DULoxetine 30 MG CAP (CYMBALTA) PO ×2 (08:49→20:21)
[2018-10-25] MEDS: DIVALPROEX 500MG *ER* TAB PO ×2 (08:50→20:21)
[2018-10-25] MEDS: HEPARIN SOD (PORCINE) 5000 UNITS/ML VIAL SC ×2 (08:50→20:21)
[2018-10-25] MEDS: AMANTADINE 100 MG CAP PO ×2 (08:50→11:20)
[2018-10-25] MEDS: FLUBLOK(EGG FREE)(QUAD)INFLUENZA VACC 0.5ML SYRINGE (90682)18YRS&OLDER IM (09:00)
[2018-10-25] MEDS: SODIUM CHLORIDE 0.9% INJ 10 ML SYR IV (11:21)
[2018-10-25] MEDS: CIPROFLOXACIN 250 MG TAB PO (17:56)
[2018-10-25] MEDS: METOPROLOL SUCC *XL* 25MG TAB (TopROL *XL*) PO (20:20)
[2018-10-25] MEDS: PHENYTOIN ER 100 MG CAP PO (20:20)
[2018-10-26] MEDS: CIPROFLOXACIN 250 MG TAB PO (05:37)
[2018-10-26] MEDS: SODIUM CHLORIDE 0.9% INJ 10 ML SYR IV ×2 (05:37→09:26)
[2018-10-26 05:58] LABS: HEMATOCRIT 33.1 % (36.0-47.0); HEMOGLOBIN 10.9 g/dl (12.0-15.5); MEAN CORPUSCULAR HEMOGLOBIN 27.3 pg (27.0-33.0); MEAN CORPUSCULAR HGB CONC 32.9 g/dl (32.0-36.5); MEAN CORPUSCULAR VOLUME 82.8 fl (80.0-96.0); PLATELET COUNT, AUTOMATED 188 10^3/uL (150-450); RED CELL DISTRIBUTION WIDTH 15.4 % (11.5-14.5); WHITE BLOOD COUNT 5.2 10^3/uL (4.0-10.0)
[2018-10-26 06:43] LABS: ANION GAP 10 MEQ/L (8-16); BLOOD UREA NITROGEN 20 MG/DL (7-18); CALCIUM LEVEL 8.9 MG/DL (8.5-10.1); CARBON DIOXIDE LEVEL 28 MEQ/L (21-32); CHLORIDE LEVEL 96 MEQ/L (98-107); CREATININE FOR GFR 1.07 MG/DL (0.55-1.30); GLOMERULAR FILTRATION RATE 57.6 (>51); GLUCOSE, FASTING 83 MG/DL (70-100); POTASSIUM SERUM 3.9 MEQ/L (3.5-5.1); SODIUM LEVEL 134 MEQ/L (136-145)
[2018-10-26] MEDS: LACTULOSE 20 GM/30 ML SYRUP UD PO (09:00)
[2018-10-26] MEDS: clonazePAM 1 MG TAB PO ×2 (09:16→21:57)
[2018-10-26] MEDS: PREGABALIN 100 MG CAP (LYRICA) PO ×2 (09:17→21:56)
[2018-10-26] MEDS: DIVALPROEX 500MG *ER* TAB PO ×2 (09:17→21:57)
[2018-10-26] MEDS: AUGMENTIN 875 MG TAB PO ×2 (09:17→21:57)
[2018-10-26] MEDS: MELOXICAM (MOBIC) 7.5 MG TAB PO (09:17)
[2018-10-26] MEDS: BACLOFEN 10 MG TAB PO ×3 (09:17→21:58)
[2018-10-26] MEDS: AMANTADINE 100 MG CAP PO ×2 (09:17→13:11)
[2018-10-26] MEDS: DULoxetine 30 MG CAP (CYMBALTA) PO ×2 (09:17→21:56)
[2018-10-26] MEDS: ONDANSETRON 4MG/2ML VIAL (J2405) IV (09:25)
[2018-10-26] MEDS: HEPARIN SOD (PORCINE) 5000 UNITS/ML VIAL SC ×2 (09:30→21:58)
[2018-10-26] MEDS: OMEPRAZOLE 20 MG CAP PO ×2 (13:11→21:57)
[2018-10-26] MEDS: tiZANidine 4 MG TAB PO ×2 (13:11→21:57)
[2018-10-26] MEDS: ACYCLOVIR 200 MG CAPSULE PO ×2 (14:40→21:58)
[2018-10-26] MEDS: hydrOXYzine 50 MG TAB PO ×2 (14:40→21:57)
[2018-10-26] MEDS: PROMETHAZINE 25 MG TAB PO ×2 (14:40→18:20)
[2018-10-26] MEDS: ONDANSETRON 4 MG TAB (S0181) PO ×2 (18:20→21:57)
[2018-10-26] MEDS: POLYVINYL ALCOHOL OPHTH SOLN 15 ML(LIQUITEARS) OU ×2 (18:20→21:58)
[2018-10-26] MEDS: METOPROLOL SUCC *XL* 25MG TAB (TopROL *XL*) PO (21:00)
[2018-10-26] MEDS: PHENYTOIN ER 100 MG CAP PO (21:56)
[2018-10-26] MEDS: traZODone 50 MG TAB PO (21:57)
[2018-10-27] MEDS: PROMETHAZINE 25 MG TAB PO ×3 (01:22→11:29)
[2018-10-27] MEDS: tiZANidine 4 MG TAB PO (06:15)
[2018-10-27] MEDS: SODIUM CHLORIDE 0.9% INJ 10 ML SYR IV ×2 (06:16→08:32)
[2018-10-27 06:43] LABS: HEMATOCRIT 31.1 % (36.0-47.0); HEMOGLOBIN 10.4 g/dl (12.0-15.5); MEAN CORPUSCULAR HEMOGLOBIN 27.7 pg (27.0-33.0); MEAN CORPUSCULAR HGB CONC 33.4 g/dl (32.0-36.5); MEAN CORPUSCULAR VOLUME 82.7 fl (80.0-96.0); PLATELET COUNT, AUTOMATED 180 10^3/uL (150-450); RED BLOOD COUNT 3.76 10^6/uL (4.00-5.40); RED CELL DISTRIBUTION WIDTH 15.6 % (11.5-14.5); WHITE BLOOD COUNT 3.6 10^3/uL (4.0-10.0)
[2018-10-27 07:25] LABS: ANION GAP 10 MEQ/L (8-16); BLOOD UREA NITROGEN 24 MG/DL (7-18); CALCIUM LEVEL 8.3 MG/DL (8.5-10.1); CARBON DIOXIDE LEVEL 28 MEQ/L (21-32); CHLORIDE LEVEL 99 MEQ/L (98-107); CREATININE FOR GFR 1.15 MG/DL (0.55-1.30); GLUCOSE, FASTING 71 MG/DL (70-100); POTASSIUM SERUM 3.6 MEQ/L (3.5-5.1); SODIUM LEVEL 137 MEQ/L (136-145)
[2018-10-27] MEDS: AMANTADINE 100 MG CAP PO ×2 (08:31→11:29)
[2018-10-27] MEDS: ACYCLOVIR 200 MG CAPSULE PO (08:31)
[2018-10-27] MEDS: LACTULOSE 20 GM/30 ML SYRUP UD PO (08:31)
[2018-10-27] MEDS: OMEPRAZOLE 20 MG CAP PO (08:31)
[2018-10-27] MEDS: BACLOFEN 10 MG TAB PO ×2 (08:31→11:29)
[2018-10-27] MEDS: clonazePAM 1 MG TAB PO (08:31)
[2018-10-27] MEDS: AUGMENTIN 875 MG TAB PO (08:32)
[2018-10-27] MEDS: DULoxetine 30 MG CAP (CYMBALTA) PO (08:32)
[2018-10-27] MEDS: MELOXICAM (MOBIC) 7.5 MG TAB PO (08:32)
[2018-10-27] MEDS: DIVALPROEX 500MG *ER* TAB PO (08:32)
[2018-10-27] MEDS: PREGABALIN 100 MG CAP (LYRICA) PO (08:32)
[2018-10-27] MEDS: ONDANSETRON 4 MG TAB (S0181) PO (08:32)
[2018-10-27] MEDS: HEPARIN SOD (PORCINE) 5000 UNITS/ML VIAL SC (08:33)
[2018-10-27] MEDS: POLYVINYL ALCOHOL OPHTH SOLN 15 ML(LIQUITEARS) OU ×2 (08:33→13:24)
[2018-10-27] MEDS: hydrOXYzine 50 MG TAB PO (11:28)
== END 2018-10-27 13:28 | DRG 690 ==
LOC: M ICU 10-25 00:28 → M ED 12:46 → M MSPAV 10-25 11:30 → M ED INP 18:45
DX: N39.0 Urinary tract infection, site not specified (principal); N17.9 Acute kidney failure, unspecified; Z68.41 Body mass index [BMI] 40.0-44.9, adult; G35 Multiple sclerosis; N31.9 Neuromuscular dysfunction of bladder, unspecified; G40.909 Epilepsy, unspecified, not intractable, without status epilepticus; I10 Essential (primary) hypertension; E55.9 Vitamin D deficiency, unspecified; E53.8 Deficiency of other specified B group vitamins; D50.9 Iron deficiency anemia, unspecified; G43.909 Migraine, unspecified, not intractable, without status migrainosus; E66.01 Morbid (severe) obesity due to excess calories; K21.9 Gastro-esophageal reflux disease without esophagitis; G62.9 Polyneuropathy, unspecified; M62.838 Other muscle spasm; F32.9 Major depressive disorder, single episode, unspecified; G89.29 Other chronic pain; F41.9 Anxiety disorder, unspecified; M43.6 Torticollis; G47.00 Insomnia, unspecified; K76.0 Fatty (change of) liver, not elsewhere classified; Z87.891 Personal history of nicotine dependence; B96.5 Pseudomonas (aeruginosa) (mallei) (pseudomallei) as the cause of diseases classified elsewhere; Z93.6 Other artificial openings of urinary tract status; Z88.0 Allergy status to penicillin; Z88.2 Allergy status to sulfonamides; Z88.1 Allergy status to other antibiotic agents; Z79.1 Long term (current) use of non-steroidal anti-inflammatories (NSAID); Z79.899 Other long term (current) drug therapy; Z88.5 Allergy status to narcotic agent; Z88.6 Allergy status to analgesic agent

== ENCOUNTER 2018-10-30 08:52 | Inpatient (IN) | payer MEDICARE, BC, OTHER, MEDICAID ==
[2018-10-30 10:14] LABS: BASO % 0.2 % (0.0-1.0); HEMATOCRIT 45.1 % (36.0-47.0); HEMOGLOBIN 14.9 g/dl (12.0-15.5); IMMATURE GRANULOCYTE % 0.7 % (0-3.0); LYMPH # 0.6 10^3/uL (1.5-4.5); LYMPH % 3.3 % (24.0-44.0); MEAN CORPUSCULAR HEMOGLOBIN 26.9 pg (27.0-33.0); MEAN CORPUSCULAR VOLUME 81.4 fl (80.0-96.0); MONO # 1.7 10^3/uL (0.0-0.8); MONO % 9.4 % (0.0-5.0); NEUTROPHILS # 15.6 10^3/uL (1.8-7.7); NEUTROPHILS % 86.4 % (36.0-66.0); PLATELET COUNT, AUTOMATED 422 10^3/uL (150-450); RED BLOOD COUNT 5.54 10^6/uL (4.00-5.40); RED CELL DISTRIBUTION WIDTH 15.9 % (11.5-14.5); WHITE BLOOD COUNT 18.1 10^3/uL (4.0-10.0)
[2018-10-30 10:30] LABS: AMMONIA 37 uMOL/L (<32)
[2018-10-30 10:33] LABS: LACTIC ACID SEPSIS PROTOCOL 1.2 MMOL/L (0.4-2.0)
[2018-10-30 10:38] LABS: ABG BASE EXCESS 6.3 (-2.0-2.0); ABG HCO3 30.9 MEQ/L (22.0-26.0); ABG O2 SATURATION 94.4 % (95.0-99.0); ABG PARTIAL PRESSURE O2 73.5 mmHg (75.0-100.0); ABG STANDARD HCO3 30.1 MEQ/L (22.0-26.0); ABG TOTAL CO2 32.3 MEQ/L (22.0-29.0); ABG pH (ARTERIAL) 7.465 UNITS (7.350-7.450)
[2018-10-30 10:40] LABS: ALBUMIN 3.8 GM/DL (3.2-5.2); ALBUMIN/GLOBULIN RATIO 0.88 (1.00-1.93); ALKALINE PHOSPHATASE 291 U/L (45-117); ALT/SGPT 20 U/L (12-78); ANION GAP 11 MEQ/L (8-16); AST/SGOT 19 U/L (7-37); BILIRUBIN,DIRECT 0.2 MG/DL (0.0-0.2); BILIRUBIN,TOTAL 0.4 MG/DL (0.2-1.0); BLOOD UREA NITROGEN 39 MG/DL (7-18); CALCIUM LEVEL 9.7 MG/DL (8.5-10.1); CARBON DIOXIDE LEVEL 32 MEQ/L (21-32); CHLORIDE LEVEL 91 MEQ/L (98-107); CPK CREATINE PHOSPHOKINASE 16 U/L (26-192); CREATININE FOR GFR 2.29 MG/DL (0.55-1.30); GLOMERULAR FILTRATION RATE 23.9 (>51); GLUCOSE, FASTING 127 MG/DL (70-100); MB/CK RELATIVE INDEX 6.25 (< OR =4); POTASSIUM SERUM 4.4 MEQ/L (3.5-5.1); SODIUM LEVEL 134 MEQ/L (136-145); TOTAL PROTEIN 8.1 GM/DL (6.4-8.2); TROPONIN I < 0.02 NG/ML (< 0.10); VALPROIC ACID (DEPAKOTE) 36.8 UG/ML (50.0-100.0)
[2018-10-30] MEDS: NS 1,000 ML IV ×2 (10:42→19:22)
[2018-10-30] MEDS: SODIUM CHLORIDE 0.9% INJ 10 ML SYR IV (12:55)
[2018-10-30 16:14] LABS: PHENYTOIN (DILANTIN) 10.5 UG/ML (10.0-20.0)
[2018-10-30] MEDS: MEROPENEM INJ 1 GM in APPROPRIATE DILUENT 1 EA IV (19:22)
[2018-10-30] MEDS ORDERED: ACETAMINOPHEN 650 MG SUPP PR (22:30)
[2018-10-31 00:24] LABS: KETONE, URINE AUTO RFX NEGATIVE (NEGATIVE); MUCUS, URINE RFX MODERATE (NEGATIVE); NITRITE, URINE AUTO RFX NEGATIVE (NEGATIVE); RBC, URINE AUTO RFX 23 /HPF (0-3); SPECIFIC GRAVITY UR AUTO RFX 1.018 (1.002-1.035); SQUAM EPITHELIAL CELL UR AURFX 0 /HPF (0-6); TRIPLE PHOSPHATE CRYSTALS RFX SMALL
[2018-10-31 00:38] LABS: LEUKOCYTE ESTERASE UR AUTO RFX 3+ (NEGATIVE); WBC, URINE AUTO RFX 131 /HPF (0-3)
[2018-10-31] MEDS: NS 1,000 ML IV ×3 (02:29→18:35)
[2018-10-31] MEDS: MEROPENEM INJ 1 GM in APPROPRIATE DILUENT 1 EA IV ×2 (05:23→17:21)
[2018-10-31 05:24] LABS: HEMATOCRIT 39.6 % (36.0-47.0); HEMOGLOBIN 12.7 g/dl (12.0-15.5); MEAN CORPUSCULAR HEMOGLOBIN 26.7 pg (27.0-33.0); MEAN CORPUSCULAR HGB CONC 32.1 g/dl (32.0-36.5); MEAN CORPUSCULAR VOLUME 83.2 fl (80.0-96.0); PLATELET COUNT, AUTOMATED 302 10^3/uL (150-450); RED BLOOD COUNT 4.76 10^6/uL (4.00-5.40); WHITE BLOOD COUNT 7.9 10^3/uL (4.0-10.0)
[2018-10-31 05:42] LABS: ANION GAP 10 MEQ/L (8-16); BLOOD UREA NITROGEN 51 MG/DL (7-18); CALCIUM LEVEL 8.9 MG/DL (8.5-10.1); CARBON DIOXIDE LEVEL 30 MEQ/L (21-32); CHLORIDE LEVEL 98 MEQ/L (98-107); CREATININE FOR GFR 2.11 MG/DL (0.55-1.30); GLOMERULAR FILTRATION RATE 26.3 (>51); GLUCOSE, FASTING 109 MG/DL (70-100); POTASSIUM SERUM 3.6 MEQ/L (3.5-5.1); SODIUM LEVEL 138 MEQ/L (136-145)
[2018-10-31] MEDS ORDERED: DIVALPROEX 500MG *ER* TAB PO (09:00)
[2018-10-31] MEDS: LACTULOSE 20 GM/30 ML SYRUP UD PO (11:11)
[2018-10-31] MEDS: PREGABALIN 100 MG CAP (LYRICA) PO ×2 (11:12→21:40)
[2018-10-31] MEDS: DULoxetine 30 MG CAP (CYMBALTA) PO ×2 (12:39→21:00)
[2018-10-31] MEDS: ACYCLOVIR 200 MG CAPSULE NG ×2 (13:06→21:39)
[2018-10-31] MEDS: BISACODYL 10 MG SUPP PR (13:06)
[2018-10-31] MEDS: VALPROIC ACID SYRUP 250 MG/5 ML UDC PO ×2 (13:07→17:21)
[2018-10-31] MEDS: AMANTADINE 100 MG CAP NG (13:07)
[2018-10-31] MEDS: HEPARIN SOD (PORCINE) 5000 UNITS/ML VIAL SQ ×2 (14:00→21:42)
[2018-10-31] MEDS ORDERED: METOPROLOL SUCC *XL* 25MG TAB (TopROL *XL*) PO (21:00)
[2018-10-31] MEDS ORDERED: PHENYTOIN ER 100 MG CAP PO (21:00)
[2018-10-31] MEDS: METOPROLOL TART 25 MG TABLET PO (21:40)
[2018-10-31] MEDS: PHENYTOIN 100 MG/4 ML SUSP UDC PO (21:42)
[2018-11-01] MEDS: VALPROIC ACID SYRUP 250 MG/5 ML UDC PO ×3 (00:53→12:00)
[2018-11-01] MEDS: NS 1,000 ML IV ×2 (02:05→10:18)
[2018-11-01] MEDS: HEPARIN SOD (PORCINE) 5000 UNITS/ML VIAL SQ ×3 (06:00→22:00)
[2018-11-01] MEDS: MEROPENEM INJ 1 GM in APPROPRIATE DILUENT 1 EA IV ×2 (06:02→15:57)
[2018-11-01] MEDS: PHENYTOIN 100 MG/4 ML SUSP UDC PO ×2 (06:03→22:27)
[2018-11-01 08:08] LABS: HEMATOCRIT 33.2 % (36.0-47.0); HEMOGLOBIN 10.9 g/dl (12.0-15.5); MEAN CORPUSCULAR HGB CONC 32.8 g/dl (32.0-36.5); MEAN CORPUSCULAR VOLUME 85.3 fl (80.0-96.0); PLATELET COUNT, AUTOMATED 218 10^3/uL (150-450); RED BLOOD COUNT 3.89 10^6/uL (4.00-5.40); RED CELL DISTRIBUTION WIDTH 15.9 % (11.5-14.5); WHITE BLOOD COUNT 5.5 10^3/uL (4.0-10.0)
[2018-11-01 08:26] LABS: ANION GAP 8 MEQ/L (8-16); BLOOD UREA NITROGEN 42 MG/DL (7-18); CALCIUM LEVEL 8.6 MG/DL (8.5-10.1); CARBON DIOXIDE LEVEL 28 MEQ/L (21-32); CHLORIDE LEVEL 108 MEQ/L (98-107); CREATININE FOR GFR 1.06 MG/DL (0.55-1.30); GLOMERULAR FILTRATION RATE 58.2 (>51); GLUCOSE, FASTING 102 MG/DL (70-100); POTASSIUM SERUM 3.2 MEQ/L (3.5-5.1); SODIUM LEVEL 144 MEQ/L (136-145)
[2018-11-01] MEDS: PREGABALIN 100 MG CAP (LYRICA) PO ×2 (08:46→22:29)
[2018-11-01] MEDS: LACTULOSE 20 GM/30 ML SYRUP UD PO (08:46)
[2018-11-01] MEDS: ACYCLOVIR 200 MG CAPSULE NG ×2 (08:48→22:29)
[2018-11-01] MEDS: AMANTADINE 100 MG CAP NG ×2 (08:48→12:00)
[2018-11-01] MEDS: METOPROLOL TART 12.5 MG PER 1/2 TAB PO ×2 (08:49→22:27)
[2018-11-01] MEDS: DULoxetine 30 MG CAP (CYMBALTA) PO ×2 (09:05→22:28)
[2018-11-01] MEDS: POTASSIUM CHLORIDE 10% LIQ 20 MEQ/15 ML UDC PO (10:46)
[2018-11-01 15:24] LABS: MAGNESIUM LEVEL 2.4 MG/DL (1.8-2.4)
[2018-11-01] MEDS: POTASSIUM CHLORIDE INJ 20 MEQ in LR 1,000 ML IV (15:56)
[2018-11-01] MEDS: VALPROATE SOD INJ 500 MG in D5W 50 ML IV (21:00)
[2018-11-01] MEDS ORDERED: PROHANCE 279.3MG/ML 5ML VIAL (A9576) As Ordered (21:24)
[2018-11-01] MEDS: traZODone 50 MG TAB PO (22:28)
[2018-11-02] MEDS: POTASSIUM CHLORIDE INJ 20 MEQ in LR 1,000 ML IV ×2 (00:05→10:48)
[2018-11-02] MEDS: MEROPENEM INJ 1 GM in APPROPRIATE DILUENT 1 EA IV ×2 (05:00→17:12)
[2018-11-02] MEDS: HEPARIN SOD (PORCINE) 5000 UNITS/ML VIAL SQ ×3 (05:09→20:22)
[2018-11-02 05:32] LABS: HEMOGLOBIN 10.4 g/dl (12.0-15.5); MEAN CORPUSCULAR HEMOGLOBIN 27.5 pg (27.0-33.0); MEAN CORPUSCULAR HGB CONC 32.5 g/dl (32.0-36.5); MEAN CORPUSCULAR VOLUME 84.7 fl (80.0-96.0); PLATELET COUNT, AUTOMATED 197 10^3/uL (150-450); RED BLOOD COUNT 3.78 10^6/uL (4.00-5.40); RED CELL DISTRIBUTION WIDTH 15.7 % (11.5-14.5); WHITE BLOOD COUNT 5.1 10^3/uL (4.0-10.0)
[2018-11-02 05:55] LABS: ANION GAP 9 MEQ/L (8-16); BLOOD UREA NITROGEN 30 MG/DL (7-18); CALCIUM LEVEL 8.7 MG/DL (8.5-10.1); CARBON DIOXIDE LEVEL 27 MEQ/L (21-32); CHLORIDE LEVEL 110 MEQ/L (98-107); GLOMERULAR FILTRATION RATE > 60.0 (>51); GLUCOSE, FASTING 93 MG/DL (70-100); MAGNESIUM LEVEL 2.1 MG/DL (1.8-2.4); POTASSIUM SERUM 3.6 MEQ/L (3.5-5.1); SODIUM LEVEL 146 MEQ/L (136-145)
[2018-11-02] MEDS: LACTULOSE 20 GM/30 ML SYRUP UD PO (09:00)
[2018-11-02] MEDS ORDERED: PHENYTOIN 100 MG/4 ML SUSP UDC NG (09:00)
[2018-11-02] MEDS: DULoxetine 30 MG CAP (CYMBALTA) PO ×2 (09:00→20:21)
[2018-11-02] MEDS: PREGABALIN 100 MG CAP (LYRICA) PO ×2 (10:09→20:21)
[2018-11-02] MEDS: ACYCLOVIR 200 MG CAPSULE NG ×2 (10:10→20:22)
[2018-11-02] MEDS: AMANTADINE 100 MG CAP NG ×2 (10:10→12:19)
[2018-11-02] MEDS: VALPROATE SOD INJ 500 MG in D5W 50 ML IV ×2 (10:10→20:21)
[2018-11-02] MEDS: POTASSIUM CHLORIDE 10% LIQ 20 MEQ/15 ML UDC NG (10:24)
[2018-11-02] MEDS: METOPROLOL TART 12.5 MG PER 1/2 TAB PO ×2 (10:48→18:06)
[2018-11-02 11:05] LABS: PHENYTOIN (DILANTIN) 6.5 UG/ML (10.0-20.0)
[2018-11-02 11:05] LABS: VALPROIC ACID (DEPAKOTE) < 3.0 UG/ML (50.0-100.0)
[2018-11-02] MEDS: PHENYTOIN INJ 250 MG/5 ML VIAL (J1165) IV ×2 (12:18→23:54)
[2018-11-02] MEDS: hydrALAZINE INJ 20 MG/ML VIAL IV ×2 (18:07→23:53)
[2018-11-02] MEDS: clonazePAM 1 MG TAB NG (20:22)
[2018-11-02] MEDS: traZODone 50 MG TAB PO (23:54)
[2018-11-03] MEDS: POTASSIUM CHLORIDE INJ 20 MEQ in LR 1,000 ML IV ×3 (01:57→15:10)
[2018-11-03] MEDS: hydrALAZINE INJ 20 MG/ML VIAL IV ×5 (04:14→23:51)
[2018-11-03] MEDS: MEROPENEM INJ 1 GM in APPROPRIATE DILUENT 1 EA IV ×2 (04:14→16:18)
[2018-11-03 04:36] LABS: HEMATOCRIT 35.9 % (36.0-47.0); HEMOGLOBIN 11.8 g/dl (12.0-15.5); MEAN CORPUSCULAR HEMOGLOBIN 27.7 pg (27.0-33.0); MEAN CORPUSCULAR HGB CONC 32.9 g/dl (32.0-36.5); MEAN CORPUSCULAR VOLUME 84.3 fl (80.0-96.0); PLATELET COUNT, AUTOMATED 234 10^3/uL (150-450); RED BLOOD COUNT 4.26 10^6/uL (4.00-5.40); RED CELL DISTRIBUTION WIDTH 15.9 % (11.5-14.5); WHITE BLOOD COUNT 8.1 10^3/uL (4.0-10.0)
[2018-11-03 04:56] LABS: ANION GAP 11 MEQ/L (8-16); BLOOD UREA NITROGEN 23 MG/DL (7-18); CARBON DIOXIDE LEVEL 27 MEQ/L (21-32); CHLORIDE LEVEL 106 MEQ/L (98-107); CREATININE FOR GFR 0.85 MG/DL (0.55-1.30); GLOMERULAR FILTRATION RATE > 60.0 (>51); GLUCOSE, FASTING 78 MG/DL (70-100); MAGNESIUM LEVEL 1.9 MG/DL (1.8-2.4); POTASSIUM SERUM 3.8 MEQ/L (3.5-5.1); SODIUM LEVEL 144 MEQ/L (136-145)
[2018-11-03 04:57] LABS: PHENYTOIN (DILANTIN) 11.7 UG/ML (10.0-20.0)
[2018-11-03 04:57] LABS: VALPROIC ACID (DEPAKOTE) < 3.0 UG/ML (50.0-100.0)
[2018-11-03] MEDS: HEPARIN SOD (PORCINE) 5000 UNITS/ML VIAL SQ ×3 (06:07→21:35)
[2018-11-03] MEDS: DULoxetine 30 MG CAP (CYMBALTA) PO ×2 (09:00→20:27)
[2018-11-03] MEDS: NS 1,000 ML IV (09:03)
[2018-11-03] MEDS: ACYCLOVIR 200 MG CAPSULE NG ×2 (09:26→20:26)
[2018-11-03] MEDS: PREGABALIN 100 MG CAP (LYRICA) PO ×2 (09:26→20:26)
[2018-11-03] MEDS: LACTULOSE 20 GM/30 ML SYRUP UD PO (09:26)
[2018-11-03] MEDS: AMANTADINE 100 MG CAP NG ×2 (09:27→12:05)
[2018-11-03] MEDS: METOPROLOL TART 12.5 MG PER 1/2 TAB PO ×2 (09:27→20:26)
[2018-11-03] MEDS: levETIRAcetam INJection 500 MG in D5W MINI-BAG PLUS 100 ML IV ×2 (10:25→21:35)
[2018-11-03] MEDS: PHENYTOIN INJ 250 MG/5 ML VIAL (J1165) IV ×2 (12:05→22:45)
[2018-11-03] MEDS: clonazePAM 1 MG TAB NG (16:18)
[2018-11-03] MEDS: ACETAMINOPHEN TAB 650MG DOSE (2X325MG) PO (18:54)
[2018-11-04] MEDS: POTASSIUM CHLORIDE INJ 20 MEQ in LR 1,000 ML IV ×3 (01:00→21:13)
[2018-11-04] MEDS: MEROPENEM INJ 1 GM in APPROPRIATE DILUENT 1 EA IV ×2 (04:51→16:18)
[2018-11-04] MEDS: HEPARIN SOD (PORCINE) 5000 UNITS/ML VIAL SQ ×3 (05:01→21:13)
[2018-11-04 05:12] LABS: HEMATOCRIT 32.2 % (36.0-47.0); HEMOGLOBIN 10.5 g/dl (12.0-15.5); MEAN CORPUSCULAR HEMOGLOBIN 27.6 pg (27.0-33.0); MEAN CORPUSCULAR HGB CONC 32.6 g/dl (32.0-36.5); MEAN CORPUSCULAR VOLUME 84.7 fl (80.0-96.0); PLATELET COUNT, AUTOMATED 188 10^3/uL (150-450); RED CELL DISTRIBUTION WIDTH 16.2 % (11.5-14.5); WHITE BLOOD COUNT 6.8 10^3/uL (4.0-10.0)
[2018-11-04 05:43] LABS: ANION GAP 9 MEQ/L (8-16); BLOOD UREA NITROGEN 28 MG/DL (7-18); CALCIUM LEVEL 8.6 MG/DL (8.5-10.1); CARBON DIOXIDE LEVEL 27 MEQ/L (21-32); CHLORIDE LEVEL 108 MEQ/L (98-107); GLOMERULAR FILTRATION RATE > 60.0 (>51); GLUCOSE, FASTING 94 MG/DL (70-100); MAGNESIUM LEVEL 1.9 MG/DL (1.8-2.4); POTASSIUM SERUM 4.1 MEQ/L (3.5-5.1); SODIUM LEVEL 144 MEQ/L (136-145)
[2018-11-04] MEDS: hydrALAZINE INJ 20 MG/ML VIAL IV ×3 (06:00→18:01)
[2018-11-04] MEDS: PREGABALIN 100 MG CAP (LYRICA) PO ×2 (08:12→20:01)
[2018-11-04] MEDS: DULoxetine 30 MG CAP (CYMBALTA) PO ×2 (08:12→20:01)
[2018-11-04] MEDS: AMANTADINE 100 MG CAP NG ×2 (08:13→12:32)
[2018-11-04] MEDS: METOPROLOL TART 12.5 MG PER 1/2 TAB PO ×2 (08:13→20:01)
[2018-11-04] MEDS: LACTULOSE 20 GM/30 ML SYRUP UD PO (08:13)
[2018-11-04] MEDS: ACYCLOVIR 200 MG CAPSULE NG ×2 (08:13→20:01)
[2018-11-04] MEDS: levETIRAcetam INJection 500 MG in D5W MINI-BAG PLUS 100 ML IV ×2 (10:05→21:13)
[2018-11-04] MEDS: PHENYTOIN INJ 250 MG/5 ML VIAL (J1165) IV ×2 (10:38→22:04)
[2018-11-04] MEDS: PROMETHAZINE 25 MG TAB PO (13:35)
[2018-11-04] MEDS: SODIUM CHLORIDE 0.9% INJ 10 ML SYR IV (21:14)
[2018-11-05] MEDS: ACETAMINOPHEN TAB 650MG DOSE (2X325MG) PO ×2 (01:06→08:04)
[2018-11-05] MEDS: MEROPENEM INJ 1 GM in APPROPRIATE DILUENT 1 EA IV ×2 (04:39→17:27)
[2018-11-05] MEDS: hydrALAZINE INJ 20 MG/ML VIAL IV ×5 (06:00→23:34)
[2018-11-05 06:07] LABS: HEMATOCRIT 31.4 % (36.0-47.0); HEMOGLOBIN 10.2 g/dl (12.0-15.5); MEAN CORPUSCULAR HEMOGLOBIN 27.4 pg (27.0-33.0); MEAN CORPUSCULAR HGB CONC 32.5 g/dl (32.0-36.5); MEAN CORPUSCULAR VOLUME 84.4 fl (80.0-96.0); PLATELET COUNT, AUTOMATED 161 10^3/uL (150-450); RED BLOOD COUNT 3.72 10^6/uL (4.00-5.40)
[2018-11-05 06:27] LABS: ANION GAP 9 MEQ/L (8-16); BLOOD UREA NITROGEN 17 MG/DL (7-18); CALCIUM LEVEL 8.3 MG/DL (8.5-10.1); CARBON DIOXIDE LEVEL 27 MEQ/L (21-32); CHLORIDE LEVEL 104 MEQ/L (98-107); GLOMERULAR FILTRATION RATE > 60.0 (>51); GLUCOSE, FASTING 83 MG/DL (70-100); MAGNESIUM LEVEL 1.9 MG/DL (1.8-2.4); POTASSIUM SERUM 3.7 MEQ/L (3.5-5.1); SODIUM LEVEL 140 MEQ/L (136-145)
[2018-11-05] MEDS: HEPARIN SOD (PORCINE) 5000 UNITS/ML VIAL SQ ×3 (06:34→21:08)
[2018-11-05] MEDS: LACTULOSE 20 GM/30 ML SYRUP UD PO (08:01)
[2018-11-05] MEDS: PREGABALIN 100 MG CAP (LYRICA) PO ×2 (08:02→21:08)
[2018-11-05] MEDS: DULoxetine 30 MG CAP (CYMBALTA) PO ×2 (08:02→21:08)
[2018-11-05] MEDS: AMANTADINE 100 MG CAP NG ×2 (08:03→12:32)
[2018-11-05] MEDS: ACYCLOVIR 200 MG CAPSULE NG ×2 (08:03→21:08)
[2018-11-05] MEDS: METOPROLOL TART 12.5 MG PER 1/2 TAB PO ×2 (08:03→21:09)
[2018-11-05] MEDS: POTASSIUM CHLORIDE INJ 20 MEQ in LR 1,000 ML IV ×2 (09:57→23:34)
[2018-11-05] MEDS: levETIRAcetam INJection 500 MG in D5W MINI-BAG PLUS 100 ML IV ×2 (10:39→21:07)
[2018-11-05] MEDS: PHENYTOIN INJ 250 MG/5 ML VIAL (J1165) IV ×2 (11:30→22:13)
[2018-11-05] MEDS ORDERED: hydrOXYzine 50 MG TAB PO (14:45)
[2018-11-05] MEDS: hydrOXYzine 50 MG TAB PO ×2 (15:32→23:37)
[2018-11-05] MEDS: traZODone 50 MG TAB PO (23:37)
[2018-11-06] MEDS: MEROPENEM INJ 1 GM in APPROPRIATE DILUENT 1 EA IV ×2 (04:56→16:50)
[2018-11-06] MEDS: HEPARIN SOD (PORCINE) 5000 UNITS/ML VIAL SQ ×3 (05:02→21:09)
[2018-11-06] MEDS: hydrALAZINE INJ 20 MG/ML VIAL IV ×3 (05:02→17:26)
[2018-11-06] MEDS: PROMETHAZINE 25 MG TAB PO (06:33)
[2018-11-06 06:39] LABS: HEMATOCRIT 34.6 % (36.0-47.0); HEMOGLOBIN 11.8 g/dl (12.0-15.5); MEAN CORPUSCULAR HGB CONC 34.1 g/dl (32.0-36.5); PLATELET COUNT, AUTOMATED 194 10^3/uL (150-450); RED BLOOD COUNT 4.22 10^6/uL (4.00-5.40); RED CELL DISTRIBUTION WIDTH 15.9 % (11.5-14.5); WHITE BLOOD COUNT 6.7 10^3/uL (4.0-10.0)
[2018-11-06 07:17] LABS: ANION GAP 13 MEQ/L (8-16); BLOOD UREA NITROGEN 9 MG/DL (7-18); CALCIUM LEVEL 8.8 MG/DL (8.5-10.1); CARBON DIOXIDE LEVEL 23 MEQ/L (21-32); CHLORIDE LEVEL 103 MEQ/L (98-107); CREATININE FOR GFR 0.72 MG/DL (0.55-1.30); GLOMERULAR FILTRATION RATE > 60.0 (>51); GLUCOSE, FASTING 84 MG/DL (70-100); MAGNESIUM LEVEL 1.8 MG/DL (1.8-2.4); POTASSIUM SERUM 3.5 MEQ/L (3.5-5.1); SODIUM LEVEL 139 MEQ/L (136-145)
[2018-11-06] MEDS: MAG SULF 1GM/100ML (MAG RUN) 1 GM in APPROPRIATE DILUENT 1 EA IV (08:41)
[2018-11-06] MEDS: LACTULOSE 20 GM/30 ML SYRUP UD PO (08:41)
[2018-11-06] MEDS: POTASSIUM CHLORIDE 10 MEQ SR TABLET PO (08:42)
[2018-11-06] MEDS: AMANTADINE 100 MG CAP NG ×2 (08:42→12:23)
[2018-11-06] MEDS: ACYCLOVIR 200 MG CAPSULE NG ×2 (08:42→21:08)
[2018-11-06] MEDS: PREGABALIN 100 MG CAP (LYRICA) PO ×2 (08:42→21:08)
[2018-11-06] MEDS: METOPROLOL TART 12.5 MG PER 1/2 TAB PO ×2 (08:43→21:08)
[2018-11-06] MEDS: DULoxetine 30 MG CAP (CYMBALTA) PO ×2 (08:43→21:07)
[2018-11-06] MEDS: levETIRAcetam INJection 500 MG in D5W MINI-BAG PLUS 100 ML IV ×2 (09:59→21:08)
[2018-11-06] MEDS: PHENYTOIN INJ 250 MG/5 ML VIAL (J1165) IV ×2 (11:03→23:56)
[2018-11-06] MEDS: POTASSIUM CHLORIDE INJ 20 MEQ in LR 1,000 ML IV ×2 (12:00→12:24)
[2018-11-06] MEDS: SODIUM CHLORIDE 0.9% INJ 10 ML SYR IV (17:56)
[2018-11-06] MEDS: hydrOXYzine 50 MG TAB PO (21:08)
[2018-11-06] MEDS: traZODone 50 MG TAB PO (21:08)
[2018-11-07] MEDS: POTASSIUM CHLORIDE INJ 20 MEQ in LR 1,000 ML IV ×2 (04:36→21:10)
[2018-11-07] MEDS: MEROPENEM INJ 1 GM in APPROPRIATE DILUENT 1 EA IV ×2 (04:37→18:30)
[2018-11-07 05:08] LABS: HEMATOCRIT 32.4 % (36.0-47.0); HEMOGLOBIN 10.6 g/dl (12.0-15.5); MEAN CORPUSCULAR HEMOGLOBIN 27.5 pg (27.0-33.0); MEAN CORPUSCULAR HGB CONC 32.7 g/dl (32.0-36.5); MEAN CORPUSCULAR VOLUME 83.9 fl (80.0-96.0); PLATELET COUNT, AUTOMATED 191 10^3/uL (150-450); RED BLOOD COUNT 3.86 10^6/uL (4.00-5.40); RED CELL DISTRIBUTION WIDTH 16.1 % (11.5-14.5)
[2018-11-07 05:14] LABS: ANION GAP 8 MEQ/L (8-16); BLOOD UREA NITROGEN 8 MG/DL (7-18); CALCIUM LEVEL 8.8 MG/DL (8.5-10.1); CARBON DIOXIDE LEVEL 27 MEQ/L (21-32); CHLORIDE LEVEL 103 MEQ/L (98-107); CREATININE FOR GFR 0.71 MG/DL (0.55-1.30); GLOMERULAR FILTRATION RATE > 60.0 (>51); GLUCOSE, FASTING 82 MG/DL (70-100); SODIUM LEVEL 138 MEQ/L (136-145)
[2018-11-07] MEDS: HEPARIN SOD (PORCINE) 5000 UNITS/ML VIAL SQ ×3 (05:25→21:11)
[2018-11-07] MEDS: hydrALAZINE INJ 20 MG/ML VIAL IV ×4 (05:30→18:30)
[2018-11-07] MEDS: METOPROLOL TART 12.5 MG PER 1/2 TAB PO ×2 (10:16→21:12)
[2018-11-07] MEDS: PREGABALIN 100 MG CAP (LYRICA) PO ×2 (10:16→21:13)
[2018-11-07] MEDS: levETIRAcetam INJection 500 MG in D5W MINI-BAG PLUS 100 ML IV ×2 (10:17→21:11)
[2018-11-07] MEDS: ACYCLOVIR 200 MG CAPSULE NG ×2 (10:17→21:13)
[2018-11-07] MEDS: AMANTADINE 100 MG CAP NG ×2 (10:17→12:23)
[2018-11-07] MEDS: DULoxetine 30 MG CAP (CYMBALTA) PO ×2 (10:17→21:12)
[2018-11-07] MEDS: LACTULOSE 20 GM/30 ML SYRUP UD PO (10:17)
[2018-11-07] MEDS: FLEET ENEMA PR (12:23)
[2018-11-07] MEDS: PHENYTOIN INJ 250 MG/5 ML VIAL (J1165) IV ×2 (12:24→22:03)
[2018-11-07] MEDS: hydrOXYzine 50 MG TAB PO (14:02)
[2018-11-07] MEDS ORDERED: LORazepam 2 MG/ML VIAL (J2060) As Ordered (14:38)
[2018-11-07] MEDS ORDERED: HALOPERIDOL 5 MG/ML VIAL (J1630) As Ordered (14:43)
[2018-11-07] MEDS: LORazepam 2 MG/ML VIAL (J2060) IV (14:45)
[2018-11-07] MEDS: HALOPERIDOL 5 MG/ML VIAL (J1630) IV (14:45)
[2018-11-07] MEDS: traZODone 50 MG TAB PO (21:12)
[2018-11-08] MEDS: MEROPENEM INJ 1 GM in APPROPRIATE DILUENT 1 EA IV ×2 (04:58→17:01)
[2018-11-08] MEDS: HEPARIN SOD (PORCINE) 5000 UNITS/ML VIAL SQ ×3 (04:58→20:39)
[2018-11-08] MEDS: hydrALAZINE INJ 20 MG/ML VIAL IV ×4 (05:02→17:01)
[2018-11-08 05:12] LABS: HEMATOCRIT 31.1 % (36.0-47.0); HEMOGLOBIN 10.3 g/dl (12.0-15.5); MEAN CORPUSCULAR HEMOGLOBIN 27.8 pg (27.0-33.0); MEAN CORPUSCULAR HGB CONC 33.1 g/dl (32.0-36.5); MEAN CORPUSCULAR VOLUME 83.8 fl (80.0-96.0); PLATELET COUNT, AUTOMATED 188 10^3/uL (150-450); RED BLOOD COUNT 3.71 10^6/uL (4.00-5.40); WHITE BLOOD COUNT 5.5 10^3/uL (4.0-10.0)
[2018-11-08 05:40] LABS: ANION GAP 7 MEQ/L (8-16); BLOOD UREA NITROGEN 8 MG/DL (7-18); CALCIUM LEVEL 8.4 MG/DL (8.5-10.1); CARBON DIOXIDE LEVEL 27 MEQ/L (21-32); CHLORIDE LEVEL 103 MEQ/L (98-107); CREATININE FOR GFR 0.69 MG/DL (0.55-1.30); GLOMERULAR FILTRATION RATE > 60.0 (>51); GLUCOSE, FASTING 82 MG/DL (70-100); MAGNESIUM LEVEL 1.8 MG/DL (1.8-2.4); POTASSIUM SERUM 3.8 MEQ/L (3.5-5.1); SODIUM LEVEL 137 MEQ/L (136-145)
[2018-11-08] MEDS: ACYCLOVIR 200 MG CAPSULE NG ×2 (08:24→20:38)
[2018-11-08] MEDS: DULoxetine 30 MG CAP (CYMBALTA) PO ×2 (08:25→20:38)
[2018-11-08] MEDS: AMANTADINE 100 MG CAP NG ×2 (08:25→12:16)
[2018-11-08] MEDS: METOPROLOL TART 12.5 MG PER 1/2 TAB PO ×2 (08:25→20:39)
[2018-11-08] MEDS: PREGABALIN 100 MG CAP (LYRICA) PO ×2 (08:25→20:38)
[2018-11-08] MEDS: LACTULOSE 20 GM/30 ML SYRUP UD PO (08:26)
[2018-11-08] MEDS: PHENYTOIN INJ 250 MG/5 ML VIAL (J1165) IV ×2 (10:25→22:13)
[2018-11-08] MEDS: levETIRAcetam INJection 500 MG in D5W MINI-BAG PLUS 100 ML IV ×2 (10:25→22:13)
[2018-11-08] MEDS: POTASSIUM CHLORIDE INJ 20 MEQ in LR 1,000 ML IV (12:16)
[2018-11-08] MEDS: traZODone 50 MG TAB PO (22:13)
[2018-11-08] MEDS: LORazepam 2 MG/ML VIAL (J2060) IV (22:14)
[2018-11-09] MEDS: hydrALAZINE INJ 20 MG/ML VIAL IV ×4 (00:30→18:00)
[2018-11-09] MEDS: POTASSIUM CHLORIDE INJ 20 MEQ in LR 1,000 ML IV ×3 (01:45→21:37)
[2018-11-09] MEDS: MEROPENEM INJ 1 GM in APPROPRIATE DILUENT 1 EA IV (05:19)
[2018-11-09] MEDS: HEPARIN SOD (PORCINE) 5000 UNITS/ML VIAL SQ ×3 (05:19→21:39)
[2018-11-09 05:53] LABS: HEMATOCRIT 32.1 % (36.0-47.0); HEMOGLOBIN 10.6 g/dl (12.0-15.5); MEAN CORPUSCULAR HEMOGLOBIN 27.7 pg (27.0-33.0); MEAN CORPUSCULAR VOLUME 83.8 fl (80.0-96.0); PLATELET COUNT, AUTOMATED 238 10^3/uL (150-450); RED BLOOD COUNT 3.83 10^6/uL (4.00-5.40); RED CELL DISTRIBUTION WIDTH 16.4 % (11.5-14.5); WHITE BLOOD COUNT 6.1 10^3/uL (4.0-10.0)
[2018-11-09 06:10] LABS: ANION GAP 10 MEQ/L (8-16); BLOOD UREA NITROGEN 9 MG/DL (7-18); CALCIUM LEVEL 8.7 MG/DL (8.5-10.1); CARBON DIOXIDE LEVEL 26 MEQ/L (21-32); CHLORIDE LEVEL 104 MEQ/L (98-107); CREATININE FOR GFR 0.73 MG/DL (0.55-1.30); GLOMERULAR FILTRATION RATE > 60.0 (>51); GLUCOSE, FASTING 80 MG/DL (70-100); MAGNESIUM LEVEL 1.9 MG/DL (1.8-2.4); SODIUM LEVEL 140 MEQ/L (136-145)
[2018-11-09] MEDS: PREGABALIN 100 MG CAP (LYRICA) PO ×2 (09:09→21:38)
[2018-11-09] MEDS: LACTULOSE 20 GM/30 ML SYRUP UD PO (09:09)
[2018-11-09] MEDS: LORazepam 2 MG/ML VIAL (J2060) IV ×2 (09:09→10:19)
[2018-11-09] MEDS: ACYCLOVIR 200 MG CAPSULE NG ×2 (09:10→21:38)
[2018-11-09] MEDS: AMANTADINE 100 MG CAP NG ×2 (09:10→11:57)
[2018-11-09] MEDS: DULoxetine 30 MG CAP (CYMBALTA) PO ×2 (09:10→21:39)
[2018-11-09] MEDS: METOPROLOL TART 12.5 MG PER 1/2 TAB PO ×2 (09:12→21:39)
[2018-11-09] MEDS: levETIRAcetam INJection 500 MG in D5W MINI-BAG PLUS 100 ML IV ×2 (09:13→21:38)
[2018-11-09] MEDS: PHENYTOIN INJ 250 MG/5 ML VIAL (J1165) IV (11:56)
[2018-11-09] MEDS: traZODone 50 MG TAB PO (21:38)
[2018-11-10] MEDS: PHENYTOIN INJ 250 MG/5 ML VIAL (J1165) IV ×3 (00:48→22:09)
[2018-11-10] MEDS: LORazepam 2 MG/ML VIAL (J2060) IV (01:21)
[2018-11-10] MEDS: HEPARIN SOD (PORCINE) 5000 UNITS/ML VIAL SQ ×3 (05:19→21:27)
[2018-11-10] MEDS: hydrALAZINE INJ 20 MG/ML VIAL IV ×3 (05:33→11:20)
[2018-11-10 05:39] LABS: HEMATOCRIT 29.5 % (36.0-47.0); HEMOGLOBIN 9.6 g/dl (12.0-15.5); MEAN CORPUSCULAR HEMOGLOBIN 27.6 pg (27.0-33.0); MEAN CORPUSCULAR HGB CONC 32.5 g/dl (32.0-36.5); MEAN CORPUSCULAR VOLUME 84.8 fl (80.0-96.0); PLATELET COUNT, AUTOMATED 206 10^3/uL (150-450); RED BLOOD COUNT 3.48 10^6/uL (4.00-5.40); RED CELL DISTRIBUTION WIDTH 16.3 % (11.5-14.5); WHITE BLOOD COUNT 5.7 10^3/uL (4.0-10.0)
[2018-11-10 06:20] LABS: ANION GAP 7 MEQ/L (8-16); BLOOD UREA NITROGEN 12 MG/DL (7-18); CALCIUM LEVEL 8.2 MG/DL (8.5-10.1); CARBON DIOXIDE LEVEL 28 MEQ/L (21-32); CHLORIDE LEVEL 106 MEQ/L (98-107); CREATININE FOR GFR 0.77 MG/DL (0.55-1.30); GLOMERULAR FILTRATION RATE > 60.0 (>51); GLUCOSE, FASTING 82 MG/DL (70-100); MAGNESIUM LEVEL 1.9 MG/DL (1.8-2.4); SODIUM LEVEL 141 MEQ/L (136-145)
[2018-11-10] MEDS: AMANTADINE 100 MG CAP NG ×2 (09:38→11:17)
[2018-11-10] MEDS: ACYCLOVIR 200 MG CAPSULE NG ×2 (09:38→21:25)
[2018-11-10] MEDS: PREGABALIN 100 MG CAP (LYRICA) PO ×2 (09:38→21:26)
[2018-11-10] MEDS: DULoxetine 30 MG CAP (CYMBALTA) PO (09:38)
[2018-11-10] MEDS: LACTULOSE 20 GM/30 ML SYRUP UD PO (09:39)
[2018-11-10] MEDS: levETIRAcetam INJection 500 MG in D5W MINI-BAG PLUS 100 ML IV ×2 (09:39→21:27)
[2018-11-10] MEDS: METOPROLOL TART 12.5 MG PER 1/2 TAB PO ×2 (09:39→21:26)
[2018-11-10] MEDS: HALOPERIDOL 0.5 MG TAB PO ×2 (11:17→21:26)
[2018-11-10] MEDS: POTASSIUM CHLORIDE INJ 20 MEQ in LR 1,000 ML IV ×2 (11:17→23:44)
[2018-11-10] MEDS ORDERED: traZODone 50 MG TAB PO (21:00)
[2018-11-11] MEDS: diphenhydrAMINE 25 MG CAP PO ×2 (00:46→23:55)
[2018-11-11] MEDS: LORazepam 2 MG/ML VIAL (J2060) IV (02:48)
[2018-11-11] MEDS: HEPARIN SOD (PORCINE) 5000 UNITS/ML VIAL SQ ×3 (05:28→21:49)
[2018-11-11 05:45] LABS: HEMOGLOBIN 9.4 g/dl (12.0-15.5); MEAN CORPUSCULAR HEMOGLOBIN 27.6 pg (27.0-33.0); MEAN CORPUSCULAR HGB CONC 32.4 g/dl (32.0-36.5); MEAN CORPUSCULAR VOLUME 85.3 fl (80.0-96.0); PLATELET COUNT, AUTOMATED 218 10^3/uL (150-450); RED CELL DISTRIBUTION WIDTH 16.5 % (11.5-14.5); WHITE BLOOD COUNT 6.3 10^3/uL (4.0-10.0)
[2018-11-11 05:57] LABS: ANION GAP 6 MEQ/L (8-16); BLOOD UREA NITROGEN 12 MG/DL (7-18); CALCIUM LEVEL 8.8 MG/DL (8.5-10.1); CARBON DIOXIDE LEVEL 28 MEQ/L (21-32); CHLORIDE LEVEL 109 MEQ/L (98-107); CREATININE FOR GFR 0.72 MG/DL (0.55-1.30); GLOMERULAR FILTRATION RATE > 60.0 (>51); GLUCOSE, FASTING 80 MG/DL (70-100); MAGNESIUM LEVEL 1.8 MG/DL (1.8-2.4); POTASSIUM SERUM 3.8 MEQ/L (3.5-5.1); SODIUM LEVEL 143 MEQ/L (136-145)
[2018-11-11] MEDS: METOPROLOL TART 12.5 MG PER 1/2 TAB PO ×2 (08:40→20:07)
[2018-11-11] MEDS: AMANTADINE 100 MG CAP NG ×2 (08:40→12:30)
[2018-11-11] MEDS: DULoxetine 30 MG CAP (CYMBALTA) PO (08:40)
[2018-11-11] MEDS: ACYCLOVIR 200 MG CAPSULE NG ×2 (08:40→20:03)
[2018-11-11] MEDS: PREGABALIN 100 MG CAP (LYRICA) PO ×2 (08:41→20:04)
[2018-11-11] MEDS: HALOPERIDOL 0.5 MG TAB PO ×2 (08:41→20:04)
[2018-11-11] MEDS: LACTULOSE 20 GM/30 ML SYRUP UD PO ×2 (08:41→08:51)
[2018-11-11] MEDS: levETIRAcetam INJection 500 MG in D5W MINI-BAG PLUS 100 ML IV ×2 (10:00→21:49)
[2018-11-11] MEDS: PHENYTOIN INJ 250 MG/5 ML VIAL (J1165) IV ×2 (11:00→22:20)
[2018-11-11] MEDS: POTASSIUM CHLORIDE INJ 20 MEQ in LR 1,000 ML IV (12:30)
[2018-11-12] MEDS: POTASSIUM CHLORIDE INJ 20 MEQ in LR 1,000 ML IV (01:45)
[2018-11-12] MEDS: HEPARIN SOD (PORCINE) 5000 UNITS/ML VIAL SQ ×3 (05:21→22:04)
[2018-11-12 05:33] LABS: HEMATOCRIT 31.3 % (36.0-47.0); HEMOGLOBIN 10.3 g/dl (12.0-15.5); MEAN CORPUSCULAR HEMOGLOBIN 27.6 pg (27.0-33.0); MEAN CORPUSCULAR HGB CONC 32.9 g/dl (32.0-36.5); MEAN CORPUSCULAR VOLUME 83.9 fl (80.0-96.0); PLATELET COUNT, AUTOMATED 240 10^3/uL (150-450); RED BLOOD COUNT 3.73 10^6/uL (4.00-5.40); RED CELL DISTRIBUTION WIDTH 15.9 % (11.5-14.5); WHITE BLOOD COUNT 5.5 10^3/uL (4.0-10.0)
[2018-11-12 05:53] LABS: ANION GAP 12 MEQ/L (8-16); BLOOD UREA NITROGEN 8 MG/DL (7-18); CALCIUM LEVEL 8.5 MG/DL (8.5-10.1); CARBON DIOXIDE LEVEL 27 MEQ/L (21-32); CHLORIDE LEVEL 108 MEQ/L (98-107); CREATININE FOR GFR 0.74 MG/DL (0.55-1.30); GLOMERULAR FILTRATION RATE > 60.0 (>51); GLUCOSE, FASTING 85 MG/DL (70-100); MAGNESIUM LEVEL 1.7 MG/DL (1.8-2.4); POTASSIUM SERUM 3.7 MEQ/L (3.5-5.1); SODIUM LEVEL 147 MEQ/L (136-145)
[2018-11-12] MEDS: MAG SULF 1GM/100ML (MAG RUN) 1 GM in APPROPRIATE DILUENT 1 EA IV (06:45)
[2018-11-12] MEDS: ACYCLOVIR 200 MG CAPSULE NG (08:25)
[2018-11-12] MEDS: DULoxetine 30 MG CAP (CYMBALTA) PO (08:25)
[2018-11-12] MEDS: METOPROLOL TART 12.5 MG PER 1/2 TAB PO ×2 (08:25→22:07)
[2018-11-12] MEDS: HALOPERIDOL 0.5 MG TAB PO ×2 (08:25→22:03)
[2018-11-12] MEDS: PREGABALIN 100 MG CAP (LYRICA) PO ×2 (08:26→22:05)
[2018-11-12] MEDS: AMANTADINE 100 MG CAP NG ×2 (08:26→12:12)
[2018-11-12] MEDS: LACTULOSE 20 GM/30 ML SYRUP UD PO (08:29)
[2018-11-12] MEDS: levETIRAcetam INJection 500 MG in D5W MINI-BAG PLUS 100 ML IV (09:48)
[2018-11-12] MEDS: PHENYTOIN INJ 250 MG/5 ML VIAL (J1165) IV (10:12)
[2018-11-12 12:33] LABS: OSMOLALITY SERUM 287 MOSM/KG (275-295)
[2018-11-12] MEDS: diphenhydrAMINE 25 MG CAP PO (14:43)
[2018-11-12] MEDS: diphenhydrAMINE 12.5MG/5ML ELIXIR UDC PO (19:00)
[2018-11-12] MEDS ORDERED: PHENYTOIN ER 100 MG CAP PO (21:00)
[2018-11-12] MEDS: PHENYTOIN ER 100 MG CAP PO (22:04)
[2018-11-12] MEDS: levETIRAcetam 250MG TABLET (KEPPRA) PO (22:05)
[2018-11-12] MEDS: ACYCLOVIR 200 MG CAPSULE PO (22:05)
[2018-11-13] MEDS: diphenhydrAMINE 25 MG CAP PO ×3 (05:39→21:19)
[2018-11-13] MEDS: HEPARIN SOD (PORCINE) 5000 UNITS/ML VIAL SQ ×3 (05:40→21:20)
[2018-11-13] MEDS: SODIUM CHLORIDE 0.9% INJ 10 ML SYR IV (05:42)
[2018-11-13 06:22] LABS: HEMOGLOBIN 10.4 g/dl (12.0-15.5); MEAN CORPUSCULAR HEMOGLOBIN 27.3 pg (27.0-33.0); MEAN CORPUSCULAR HGB CONC 32.5 g/dl (32.0-36.5); PLATELET COUNT, AUTOMATED 255 10^3/uL (150-450); RED BLOOD COUNT 3.81 10^6/uL (4.00-5.40); RED CELL DISTRIBUTION WIDTH 15.8 % (11.5-14.5); WHITE BLOOD COUNT 6.1 10^3/uL (4.0-10.0)
[2018-11-13 06:41] LABS: ANION GAP 10 MEQ/L (8-16); BLOOD UREA NITROGEN 11 MG/DL (7-18); CALCIUM LEVEL 8.5 MG/DL (8.5-10.1); CARBON DIOXIDE LEVEL 26 MEQ/L (21-32); CHLORIDE LEVEL 103 MEQ/L (98-107); CREATININE FOR GFR 0.83 MG/DL (0.55-1.30); GLOMERULAR FILTRATION RATE > 60.0 (>51); GLUCOSE, FASTING 78 MG/DL (70-100); MAGNESIUM LEVEL 1.9 MG/DL (1.8-2.4); POTASSIUM SERUM 3.8 MEQ/L (3.5-5.1); SODIUM LEVEL 139 MEQ/L (136-145)
[2018-11-13] MEDS: LACTULOSE 20 GM/30 ML SYRUP UD PO (08:14)
[2018-11-13] MEDS: DULoxetine 30 MG CAP (CYMBALTA) PO (08:32)
[2018-11-13] MEDS: AMANTADINE 100 MG CAP NG (08:33)
[2018-11-13] MEDS: ACYCLOVIR 200 MG CAPSULE PO ×2 (08:34→21:20)
[2018-11-13] MEDS: levETIRAcetam 250MG TABLET (KEPPRA) PO ×2 (08:34→21:19)
[2018-11-13] MEDS: PREGABALIN 100 MG CAP (LYRICA) PO ×2 (08:34→21:19)
[2018-11-13] MEDS: HALOPERIDOL 0.5 MG TAB PO ×2 (08:34→21:20)
[2018-11-13] MEDS: METOPROLOL TART 12.5 MG PER 1/2 TAB PO ×2 (08:34→21:22)
[2018-11-13] MEDS: AMANTADINE 100 MG CAP PO (12:00)
[2018-11-13] MEDS ORDERED: clonazePAM 1 MG TAB PO (12:25)
[2018-11-13] MEDS ORDERED: PHENYTOIN 100 MG/4 ML SUSP UDC PO (21:00)
[2018-11-13] MEDS ORDERED: AMANTADINE 100 MG CAP PO (21:00)
[2018-11-13] MEDS: PHENYTOIN ER 100 MG CAP PO (21:20)
[2018-11-13] MEDS: ACETAMINOPHEN TAB 650MG DOSE (2X325MG) PO (22:08)
[2018-11-14] MEDS: diphenhydrAMINE 25 MG CAP PO ×2 (03:47→13:01)
[2018-11-14] MEDS: HEPARIN SOD (PORCINE) 5000 UNITS/ML VIAL SQ (05:16)
[2018-11-14] MEDS: SODIUM CHLORIDE 0.9% INJ 10 ML SYR IV ×2 (05:16→12:07)
[2018-11-14] MEDS: ACETAMINOPHEN TAB 650MG DOSE (2X325MG) PO (05:17)
[2018-11-14 05:47] LABS: HEMATOCRIT 33.3 % (36.0-47.0); HEMOGLOBIN 10.9 g/dl (12.0-15.5); MEAN CORPUSCULAR HGB CONC 32.7 g/dl (32.0-36.5); MEAN CORPUSCULAR VOLUME 82.4 fl (80.0-96.0); PLATELET COUNT, AUTOMATED 258 10^3/uL (150-450); RED BLOOD COUNT 4.04 10^6/uL (4.00-5.40); RED CELL DISTRIBUTION WIDTH 15.7 % (11.5-14.5); WHITE BLOOD COUNT 6.6 10^3/uL (4.0-10.0)
[2018-11-14 06:18] LABS: ANION GAP 11 MEQ/L (8-16); BLOOD UREA NITROGEN 12 MG/DL (7-18); CALCIUM LEVEL 8.6 MG/DL (8.5-10.1); CARBON DIOXIDE LEVEL 25 MEQ/L (21-32); CHLORIDE LEVEL 103 MEQ/L (98-107); CREATININE FOR GFR 0.88 MG/DL (0.55-1.30); GLOMERULAR FILTRATION RATE > 60.0 (>51); GLUCOSE, FASTING 82 MG/DL (70-100); MAGNESIUM LEVEL 1.8 MG/DL (1.8-2.4); POTASSIUM SERUM 3.6 MEQ/L (3.5-5.1); SODIUM LEVEL 139 MEQ/L (136-145)
[2018-11-14] MEDS: ACYCLOVIR 200 MG CAPSULE PO (09:20)
[2018-11-14] MEDS: METOPROLOL TART 12.5 MG PER 1/2 TAB PO (09:20)
[2018-11-14] MEDS: AMANTADINE 100 MG CAP PO ×2 (09:20→12:03)
[2018-11-14] MEDS: levETIRAcetam 250MG TABLET (KEPPRA) PO (09:20)
[2018-11-14] MEDS: PREGABALIN 100 MG CAP (LYRICA) PO (09:20)
[2018-11-14] MEDS: DULoxetine 30 MG CAP (CYMBALTA) PO (09:20)
[2018-11-14] MEDS: LACTULOSE 20 GM/30 ML SYRUP UD PO (09:20)
[2018-11-14] MEDS: HALOPERIDOL 0.5 MG TAB PO (09:21)
[2018-11-14] MEDS: FLUCONAZOLE 50MG TABLET PO (12:03)
== END 2018-11-14 13:15 | DRG 871 ==
LOC: M PCU 11-08 20:24 → M MSPAV 11-10 11:58 → M ED 08:52 → M ED INP 15:45 → M PCU 19:00
DX: A41.9 Sepsis, unspecified organism (principal); J69.0 Pneumonitis due to inhalation of food and vomit; G93.41 Metabolic encephalopathy; K56.50 Intestinal adhesions [bands], unspecified as to partial versus complete obstruction; N17.9 Acute kidney failure, unspecified; G40.209 Localization-related (focal) (partial) symptomatic epilepsy and epileptic syndromes with complex partial seizures, not intractable, without status epilepticus; Z68.41 Body mass index [BMI] 40.0-44.9, adult; R41.82 Altered mental status, unspecified; I10 Essential (primary) hypertension; M43.6 Torticollis; G35 Multiple sclerosis; E66.9 Obesity, unspecified; F48.2 Pseudobulbar affect; F41.8 Other specified anxiety disorders; H57.04 Mydriasis; D50.9 Iron deficiency anemia, unspecified; H57.03 Miosis; F32.9 Major depressive disorder, single episode, unspecified; G89.29 Other chronic pain; Z88.1 Allergy status to other antibiotic agents; Z88.2 Allergy status to sulfonamides; Z88.5 Allergy status to narcotic agent; Z88.8 Allergy status to other drugs, medicaments and biological substances; Z79.899 Other long term (current) drug therapy; Z93.6 Other artificial openings of urinary tract status; Z85.828 Personal history of other malignant neoplasm of skin; Z87.891 Personal history of nicotine dependence

== ENCOUNTER → 2018-11-01 | Outpatient (REF) | DX: I10 Essential (primary) hypertension (principal) ==

== ENCOUNTER → 2018-11-23 | Outpatient (REF) ==
[~2018-11-23] MED LIST changes: +AMAN100T PO; +AMIT10TA PO; +AMOX875T2 PO; +ASMA16.7 INH; +BACL1TAB9 PO; +BISA10SU4 PR; +CLON1TAB8 PO; +DILA100C PO; +DIVA500T9 PO; +DIVA500T94 PO; +DYAZ37.5 PO; +ENEMENE6 PR; +GILE1CAP PO; +HYDR2TAB2; +HYDR50TA70 PO; +KEPP250T5 PO; +LACT10SO29 PO; +LACT10SO3; +MELO15TA28 PO; +METH-855 PO; +METO1TAB32 PO; +MILK12002 PO; +NAPR-885 PO; +NUCY50TA6; +NUED20CA PO; +OLOP1DRO OU; +OMEP-221 PO; +ONDA8TAB7 PO; +OXYC-517; +PATIENT COMMENT; +PROM25TA PO; +SENN18TA PO; +TIZA2CAP PO; +TRAZ-160; +TRAZ-163 PO; +TRAZ1TAB14 PO; +TRIA37.5 PO; +TRIAMT/HCTZ; +VITA50005 PO; +VITMTA PO; +ZANA4TAB PO
[2018-11-23 09:58] LABS: HEMATOCRIT 28.8 % (36.0-47.0); HEMOGLOBIN 9.4 g/dl (12.0-15.5); MEAN CORPUSCULAR HEMOGLOBIN 27.2 pg (27.0-33.0); MEAN CORPUSCULAR HGB CONC 32.6 g/dl (32.0-36.5); MEAN CORPUSCULAR VOLUME 83.2 fl (80.0-96.0); PLATELET COUNT, AUTOMATED 212 10^3/uL (150-450); RED BLOOD COUNT 3.46 10^6/uL (4.00-5.40); WHITE BLOOD COUNT 4.6 10^3/uL (4.0-10.0)
[2018-11-23 10:35] LABS: BLOOD UREA NITROGEN 10 MG/DL (7-18); CARBON DIOXIDE LEVEL 27 MEQ/L (21-32); CHLORIDE LEVEL 107 MEQ/L (98-107); CREATININE FOR GFR 0.78 MG/DL (0.55-1.30); GLOMERULAR FILTRATION RATE > 60.0 (>51); GLUCOSE, FASTING 91 MG/DL (70-100); POTASSIUM SERUM 3.1 MEQ/L (3.5-5.1); SODIUM LEVEL 142 MEQ/L (136-145)
== END ==
PROVIDERS: ATTEND Family Medicine
DX: G35 Multiple sclerosis (principal)

== ENCOUNTER 2019-04-27 12:03 | Inpatient (IN) | payer MEDICARE, BC, OTHER ==
[~2019-04-27] VITALS: Ht 154.9 cm; Wt 87.2 kg
[~2019-04-27 12:03] MED LIST changes: -/BACL20TA; -/BACL20TA PO; -/CARB20TAB; -/DULO30CA; -/METO25TAB PO; +BACL1TAB9; +CARB1TAB20; +CYMB1CAP5; +METO1TAB87 PO; +MILK120011 PO; -MILK12002 PO; +NUCY50TA19; -NUCY50TA6; +OLOP0.1D OU; -OLOP1DRO OU; +ONDA-227; +ONDA-227 PO; -PROM25TA PO; +PROM25TA12 PO; -ZOFR8TAB; -ZOFR8TAB PO
[2019-04-27] MEDS ORDERED: DEPA500T2 PO (13:05)
[2019-04-27] MEDS ORDERED: traz (13:05)
[2019-04-27] MEDS ORDERED: MELO15TA28 PO (13:05)
[2019-04-27] MEDS ORDERED: TRAZ1TAB14 PO (13:05)
[2019-04-27 14:25] LABS: BASO % 0.7 % (0.0-1.0); EOS # 0.2 10^3/uL (0.0-0.50); HEMATOCRIT 30.8 % (36.0-47.0); HEMOGLOBIN 9.6 g/dl (12.0-15.5); LYMPH # 0.5 10^3/uL (1.5-4.5); LYMPH % 12.9 % (24.0-44.0); MEAN CORPUSCULAR HEMOGLOBIN 25.5 pg (27.0-33.0); MEAN CORPUSCULAR HGB CONC 31.2 g/dl (32.0-36.5); MEAN CORPUSCULAR VOLUME 81.9 fl (80.0-96.0); MONO # 0.4 10^3/uL (0.0-0.8); MONO % 8.3 % (0.0-5.0); NEUTROPHILS # 3.1 10^3/uL (1.8-7.7); NEUTROPHILS % 72.6 % (36.0-66.0); PLATELET COUNT, AUTOMATED 229 10^3/uL (150-450); RED BLOOD COUNT 3.76 10^6/uL (4.00-5.40); WHITE BLOOD COUNT 4.2 10^3/uL (4.0-10.0)
[2019-04-27 14:46] LABS: ALBUMIN 2.9 GM/DL (3.2-5.2); ALT/SGPT 38 U/L (12-78); BILIRUBIN,DIRECT < 0.1 MG/DL (0.0-0.2); BILIRUBIN,TOTAL 0.3 MG/DL (0.2-1.0); LIPASE 84 U/L (73-393); TOTAL PROTEIN 6.4 GM/DL (6.4-8.2)
[2019-04-27 15:21] LABS: PHENYTOIN (DILANTIN) 7.9 UG/ML (10.0-20.0); VALPROIC ACID (DEPAKOTE) 32.8 UG/ML (50.0-100.0)
--- NOTE | 2019-04-27 15:25 | REP ---
Clinical: Weakness and chest pain . Comparison: 11/07/2018 . Findings: The mediastinum and cardiac silhouette are stable and within normal limits for portable technique. [id number] identified with tip in the SVC. The lung allison are clear without acute consolidation, effusion, or pneumothorax. Skeletal structures are intact. Impression: No acute cardiopulmonary process appreciated. Electronically Signed by Efe Tovar MD 04/27/2019 03:16 P
[2019-04-27] MEDS ORDERED: POTA10TA17 PO (15:40)
[2019-04-27] MEDS ORDERED: ARIP1TAB4 PO (15:40)
[2019-04-27] MEDS ORDERED: KEPP1TAB PO (15:40)
[2019-04-27] MEDS ORDERED: LEVO50TA5 PO (15:40)
[2019-04-27] MEDS ORDERED: NYST1POW9 TOP (15:40)
[2019-04-27] MEDS ORDERED: PREG100CA PO (15:40)
[2019-04-27] MEDS ORDERED: DILA100C PO (15:40)
[2019-04-27] MEDS ORDERED: BACL1TAB9 PO (15:44)
[2019-04-27] MEDS ORDERED: DULO1CAP3 PO (15:44)
[2019-04-27] MEDS ORDERED: BISACODYL 10 MG SUPP PR PRN (16:45)
[2019-04-27] MEDS ORDERED: SENNA 8.6 MG TAB (SENOKOT) PO PRN (16:45)
[2019-04-27] MEDS ORDERED: ALBUTEROL 90 MCG/ACT 8GM HFA INHALER INH PRN (16:45)
[2019-04-27] MEDS ORDERED: PROMETHAZINE 25 MG TAB PO PRN (16:45)
[2019-04-27] MEDS ORDERED: BACLOFEN 10 MG TAB PO PRN (16:45)
[2019-04-27] MEDS ORDERED: tiZANidine 4 MG TAB PO PRN (16:45)
[2019-04-27] MEDS ORDERED: NYSTATIN 100,000 UNITS/GM TOPICAL PWD 15 GM TOP PRN (16:45)
[2019-04-27] MEDS ORDERED: MEROPENEM INJ 1 GM in APPROPRIATE DILUENT 1 EA IV ONE (17:15)
--- NOTE | 2019-04-27 17:42 | IPNPDOC ---
Date Seen The patient was seen on 04/27/19. Progress Note PCP: Pascual Momin CHIEF COMPLAINT: Flank pain and weakness HISTORY OF PRESENT ILLNESS: Patient is a 53-year-old female with chronic progressive multiple sclerosis who follows in [place] who has chronic back and leg pain and weakness. At her baseline she is normally able to incomplete with a walker within the last year she started a new infusion immunosuppressive therapy for her multiple sclerosis it is an infusion every 6 months and shortly after all of her previous infusion she has suffered from a urinary tract infection. She did receive this infusion again on April 07. She tells me that over the last 3 days she's had progressively worsening leg pain bilaterally as well as weakness to the point that she is unable to walk. Steady this is the exact same presen tation as the last time she had a urinary tract infection. She denies fevers or chills at home or otherwise feeling unwell. She has a history of diverting urostomy secondary to neurogenic bladder with bladder resection. Otherwise patient denies weight loss, hair loss, headache, visual changes, chest pain, shortness of breath, cough, nausea, vomiting, diarrhea, abdominal pain, muscle aches, worsening arthritis, change in mood PAST MEDICAL HISTORY: 1. Progressive multiple sclerosis. 2. Seizure disorder. 3. Neurogenic bladder status post bladder resection with urostomy 4. Left torticollis 5. Pseudobulbar affect 6. Chronic pain 7. Hypertension 8. Hypothyroidism 10. Mood disorder 11. Gastroesophageal reflux disease 12. Shingles 13. Migraines 14. Obesity 15. Anemia. HOME MEDICATIONS: Please see below. ALLERGIES: Please see below PAST SURGICAL HISTORY: 1. Breast reduction surgery 2. bilateral wrist surgery.. 3. Bladder resection 4. Hysterectomy 5. Tubal ligation 6. Mohs surgery for basal cancer 7. Port placement 8. Left ulnar implant. SOCIAL HISTORY: Lives with: , Employment: Not working, Tobacco use: Former smoker [id number]. ETOH: Denies, Illicit drug use: Occasional THC use, Tattoos done unprofessionally: Denies, CODE STATUS: Full code FAMILY HISTORY:Reviewed and noncontributory REVIEW OF SYSTEMS: 10 systems reviewed and negative other than HPI PHYSICAL EXAMINATION: VITAL SIGNS: Temperature 97.1, pulse 70, respiratory rate 20, blood pressure 123/68, pulse oximetry 97 % on room air. GENERAL: Obese lethargic woman laying flat in bed wearing sunglasses and droplet mask she speaks slowly awake alert oriented speaking in complete sentences no acute distress HEENT: Moist mucous membranes no elevation and CVP CARDIOVASCULAR: S1 S2 regular no additional heart sounds appreciated. RESPIRATORY: Clear to auscultation bilaterally. ABDOMINAL: Bowel sounds present abdomen soft and nontender, bilateral CVA tenderness EXTREMITIES: No clubbing cyanosis or edema NEUROLOGICAL: Spontaneously moves all 4 extremities cranial 2 through 12 grossly intact no gross focal deficits appreciated PSYCHOLOGICAL: Appropriate LABORATORY DATA: See below. MICROBIOLOGY: Please see below. IMAGING: Chest x-ray:No acute cardiopulmonary process appreciated ASSESSMENT & PLAN: This is a 53-year-old female with a history of urostomy and progressive multiple sclerosis on a suppressive therapy presenting with exacerbation of chronic GROSS his symptoms and abnormal urinalysis highly suggestive of a urinary tract infection. PROBLEMS: 1. Urinary tract infection: Her clinical presentation is not clear and suspicious for a pseudo-exacerbation of multiple sclerosis secondary to urinary tract infection. Her culture is likely chronically abnormal as well as UA related to urostomy. However the past which presented like this after receiving immunosuppressive therapy she didn't improve with antibiotic treatment and as such I'll treat her as she has approved within the past for similar complaints. I'll provide with IV meropenem as based on a previous culture data she appears to be always susceptible to this. We'll have her work with PT OT should her symptoms fail to improve would consider inpatient neurology consultation. Provided with gentle IV fluids 2. Progressive multiple sclerosis: For now we are holding her infusion this only once every 6 months he is oriented received it continue with amantadine meloxicam Lyrica tizanidine baclofen 3. Mood disorder: Continue with trazodone daily at bedtime duloxetine hydroxyzine clonazepam Abilify 4. Shingles: Continue with acyclovir 5. Seizure disorder: Continue with Depakote and Keppra; Lyrica 6. Constipation: Likely related to multiple sclerosis continue with lactulose and senna 7. Hypothyroidism: Continue with levothyroxine 8. Hypertension: Continue with Toprol-XL 9. Gastric esophageal reflux disease: Continue with omeprazole 10. Obesity:, Dictating care DVT PROPHYLAXIS:Lovenox DISPOSITION: Admitted to the medical surgical floor VS, I&O, 24H, Fishbone Vital Signs/I&O Vital Signs Date Time Temp Pulse Resp B/P (MAP) Pulse Ox O2 Delivery O2 Flow Rate FiO2 04/27/19 15:45 20 123/68 (86) 04/27/19 15:33 70 97 04/27/19 12:04 97.1 Room Air Laboratory Data 24H LABS Laboratory Tests 2 04/27/19 14:04: Immature Granulocyte % (Auto) 0.5, White Blood Count 4.2, Red Blood Count 3.76L, Hemoglobin 9.6L, Hematocrit 30.8L, Mean Corpuscular Volume 81.9, Mean Corpuscula r Hemoglobin 25.5L, Mean Corpuscular Hemoglobin Concent 31.2L, Red Cell Distribution Width 15.8H, Platelet Count 229, Neutrophils (%) (Auto) 72.6H, Lymphocytes (%) (Auto) 12.9L, Monocytes (%) (Auto) 8.3H, Eosinophils (%) (Auto) 5.0H, Basophils (%) (Auto) 0.7, Neutrophils # (Auto) 3.1, Lymphocytes # (Auto) 0.5L, Monocytes # (Auto) 0.4, Eosinophils # (Auto) 0.2, Basophils # (Auto) 0.0, Nucleated Red Blood Cells % (auto) 0.0, Urine Color YELLOW, Urine Appearance TURBIDH, Urine pH 5.0, Urine Specific Bells 1.017, Urine Protein 2+H, Urine Glucose (UA) NEGATIVE, Urine Ketones NEGATIVE, Urine Blood 1+H, Urine Nitrite POSITIVEH, Urine Bilirubin NEGATIVE, Urine Urobilinogen 0.2, Urine Leukocyte Est erase 3+H, Urine WBC (Auto) TNTCH, Urine RBC (Auto) 61H, Urine Hyaline Casts (Auto) 0, Urine Bacteria (Auto) 1+H, Urine Squamous Epithelial Cells 0, Urine Transitional Epithelial Cells 2, Urine Mucus (Auto) SMALL, Urine Sperm (Auto) , Lactic Acid Level 0.8, Aspartate Amino Transf (AST/SGOT) 18, Alanine Aminotransferase (ALT/SGPT) 38, Alkaline Phosphatase 285H, Total Bilirubin 0.3, Direct Bilirubin < 0.1, Total Protein 6.4, Albumin 2.9L, Albumin/Globulin Ratio 0.83L, Lipase 84, Phenytoin (Dilantin) Level 7.9L, Valproic Acid (Depakene) Level 32.8L CBC/BMP Laboratory Tests 04/27/19 14:04 Red Blood Count 3.76 L, Mean Corpuscular Volume 81.9, Mean Corpuscular Hemoglobin 25.5 L, Mean Corpuscular Hemoglobin Concent 31.2 L, Red Cell Distribution Width 15.8 H, Neutrophils (%) (Auto) 72.6 H, Lymphocytes (%) (Auto) 12.9 L, Monocytes (%) (Auto) 8.3 H, Eosinophils (%) (Auto) 5.0 H, Basophils (%) (Auto) 0.7, Neutrophils # (Auto) 3.1, Lymphocytes # (Auto) 0.5 L, Monocytes # (Auto) 0.4, Eosinophils # (Auto) 0.2, Basophils # (Auto) 0.0 Microbiology Microbiology 04/27/19 Blood Culture, Received Pending 04/27/19 Blood Culture, Received Pending 04/27/19 Urine Culture, Received Pending REE PARRA MD April 27, 2019 17:42
[2019-04-27 17:55] LABS: CALCIUM LEVEL 8.7 MG/DL (8.5-10.1); CREATININE FOR GFR 1.11 MG/DL (0.55-1.30); GLOMERULAR FILTRATION RATE 55.2 (>51); PERCENT SATURATION 23.6 % (13.2-45.0); POTASSIUM SERUM 4.6 MEQ/L (3.5-5.1)
[2019-04-27 19:55] VITALS: BP 127/86
[2019-04-27] MEDS: NS 1,000 ML IV SCH (20:25)
[2019-04-27] MEDS: ENOXAPARIN 40 MG/0.4 ML SYRINGE (J1650) SC SCH (21:53)
[2019-04-27] MEDS: MEROPENEM INJ 1 GM in APPROPRIATE DILUENT 1 EA IV SCH (21:53)
[2019-04-27] MEDS: AMANTADINE 100 MG CAP PO SCH (21:54)
[2019-04-27] MEDS: OMEPRAZOLE 20 MG CAP PO SCH (21:54)
[2019-04-27] MEDS: clonazePAM 1 MG TAB PO SCH (21:54)
[2019-04-27] MEDS: levETIRAcetam 250MG TABLET (KEPPRA) PO SCH (21:54)
[2019-04-27] MEDS: DULoxetine 30 MG CAP (CYMBALTA) PO SCH (21:54)
[2019-04-27] MEDS: ARIPiprazole 2 MG TAB PO SCH (21:55)
[2019-04-27] MEDS: PREGABALIN 100 MG CAP (LYRICA) PO SCH (21:55)
[2019-04-27] MEDS: PHENYTOIN ER 100 MG CAP PO SCH (21:55)
[2019-04-27] MEDS: traZODone 50 MG TAB PO SCH (21:56)
[2019-04-27] MEDS: DIVALPROEX 500MG *ER* TAB PO SCH (21:56)
[2019-04-27] MEDS: ACYCLOVIR 200 MG CAPSULE PO SCH (22:16)
[2019-04-27] MEDS: hydrOXYzine 50 MG TAB PO SCH (22:16)
[2019-04-28] MEDS: MEROPENEM INJ 1 GM in APPROPRIATE DILUENT 1 EA IV SCH ×3 (05:00→21:44)
[2019-04-28] MEDS: LEVOTHYROXINE 50MCG TABLET (0.05MG) PO SCH (05:40)
[2019-04-28] MEDS: SODIUM CHLORIDE 0.9% INJ 10 ML SYR IV PRN ×2 (05:42→21:33)
[2019-04-28] MEDS: NS 1,000 ML IV SCH (05:43)
[2019-04-28 06:00] VITALS: BP 122/70
[2019-04-28 06:06] LABS: HEMATOCRIT 29.3 % (36.0-47.0); HEMOGLOBIN 9.2 g/dl (12.0-15.5); MEAN CORPUSCULAR HEMOGLOBIN 25.5 pg (27.0-33.0); MEAN CORPUSCULAR HGB CONC 31.4 g/dl (32.0-36.5); MEAN CORPUSCULAR VOLUME 81.2 fl (80.0-96.0); PLATELET COUNT, AUTOMATED 190 10^3/uL (150-450); RED BLOOD COUNT 3.61 10^6/uL (4.00-5.40); WHITE BLOOD COUNT 5.1 10^3/uL (4.0-10.0)
[2019-04-28 06:34] LABS: BLOOD UREA NITROGEN 27 MG/DL (7-18); CALCIUM LEVEL 8.6 MG/DL (8.5-10.1); CARBON DIOXIDE LEVEL 28 MEQ/L (21-32); CHLORIDE LEVEL 106 MEQ/L (98-107); CREATININE FOR GFR 1.01 MG/DL (0.55-1.30); GLOMERULAR FILTRATION RATE > 60.0 (>51); GLUCOSE, FASTING 78 MG/DL (70-100); POTASSIUM SERUM 3.6 MEQ/L (3.5-5.1); SODIUM LEVEL 142 MEQ/L (136-145)
[2019-04-28] MEDS: DIVALPROEX 500MG *ER* TAB PO SCH ×2 (08:29→21:44)
[2019-04-28] MEDS: ACYCLOVIR 200 MG CAPSULE PO SCH ×2 (08:29→21:45)
[2019-04-28] MEDS: LACTULOSE 20 GM/30 ML SYRUP UD PO SCH (08:29)
[2019-04-28] MEDS: AMANTADINE 100 MG CAP PO SCH ×2 (08:30→21:44)
[2019-04-28] MEDS: MELOXICAM (MOBIC) 7.5 MG TAB PO SCH (08:30)
[2019-04-28] MEDS: levETIRAcetam 250MG TABLET (KEPPRA) PO SCH ×2 (08:30→21:46)
[2019-04-28] MEDS: PREGABALIN 100 MG CAP (LYRICA) PO SCH ×2 (08:30→21:44)
[2019-04-28] MEDS: METOPROLOL SUCC *XL* 25MG TAB (TopROL *XL*) PO SCH (08:30)
[2019-04-28] MEDS: POTASSIUM CHLORIDE 10 MEQ SR TABLET PO SCH (08:30)
[2019-04-28] MEDS: OMEPRAZOLE 20 MG CAP PO SCH ×2 (08:31→21:45)
[2019-04-28] MEDS: SODIUM CHLORIDE 0.9% INJ 10 ML SYR IV SCH (08:31)
[2019-04-28] MEDS: clonazePAM 1 MG TAB PO SCH ×2 (08:31→21:45)
[2019-04-28] MEDS: DULoxetine 30 MG CAP (CYMBALTA) PO SCH ×2 (08:31→21:45)
[2019-04-28] MEDS: hydrOXYzine 50 MG TAB PO SCH ×2 (08:33→21:45)
[2019-04-28] MEDS ORDERED: diphenhydrAMINE 50 MG CAP PO PRN (11:15)
[2019-04-28] MEDS: MORPHINE 4 MG/ML 1ML VIAL/SYRINGE (J2270) IV PRN ×3 (11:23→21:31)
[2019-04-28 14:00] VITALS: BP 120/80
--- NOTE | 2019-04-28 14:11 | IPNPDOC ---
Date Seen The patient was seen on 04/28/19. Progress Note SUBJECTIVE: Patient tells me that she still feels unwell she still has pain is not improved. She tells me she was able to get up and put back and forth to the bathroom otherwise patient denies chest pain, shortness breath, nausea, vomiting, fevers, chills OBJECTIVE PHYSICAL EXAMINATION: VITAL SIGNS: Please see below. GENERAL: sitting up in bed awake alert oriented speaking in complete sentences no acute distress, she speaks more quickly than she did yesterday she is more awake eyes were open she carries a full conversation she certainly appears significantly more comfortable on the previous day she is no longer wearing her facemask her sunglasses HEENT: Moist mucous membranes no elevation and CVP CARDIOVASCULAR: S1 S2 regular no additional heart sounds appreciated. RESPIRATORY: Clear to auscultation bilaterally. ABDOMINAL: Bowel sounds present abdomen soft and nontender obese EXTREMITIES: No clubbing cyanosis or edema NEUROLOGICAL: unchanged from previous days exam PSYCHOLOGICAL: Appropriate LABORATORY DATA: See below. MICROBIOLOGY: Please see below. IMAGING: Chest x-ray:No acute cardiopulmonary process appreciated ASSESSMENT & PLAN: This is a 53-year-old female with a history of urostomy and progressive multiple sclerosis on a immunosuppressive therapy presenting with exacerbation of chronic symptoms and abnormal urinalysis highly suggestive of a urinary tract infection. PROBLEMS: 1. Urinary tract infection: Although subjectively she states she is not feeling better certainly on exam she appears to be significantly better, as such I'll continue with her current antibiotic regimen and close monitoring following up her culture data and narrow spectrum as appropriate. She has had frequent episodes of the past which was similar after receiving her immunosuppressive therapy which she develop urinary tract infections and was unwell each time improving with antibiotics. Continue to monitor closely. She does complain of significant pain and requests IV Dilaudid given her normal labs and normal vitals I hesitate to initiate this, I'll provide her with a small dose of IV morphine when necessary for breakthrough pain 2. Progressive multiple sclerosis: For now we are holding her infusion this only once every 6 months he is oriented received it continue with amantadine mckee xicam Lyrica tizanidine baclofen 3. Mood disorder: Continue with trazodone daily at bedtime duloxetine hydroxyzine clonazepam Abilify 4. Shingles: Continue with acyclovir 5. Seizure disorder: Continue with Depakote and Keppra; Lyrica 6. Constipation: Likely related to multiple sclerosis continue with lactulose and senna 7. Hypothyroidism: Continue with levothyroxine 8. Hypertension: Continue with Toprol-XL 9. Gastric esophageal reflux disease: Continue with omeprazole 10. Obesity: Complicating care DVT PROPHYLAXIS:Lovenox DISPOSITION: Pending clinical improvement, PTOT VS, I&O, 24H, Fishbone Vital Signs/I&O Vital Signs Date Time Temp Pulse Resp B/P (MAP) Pulse Ox O2 Delivery O2 Flow Rate FiO2 04/28/19 11:33 18 04/28/19 08:30 67 120/74 04/28/19 06:00 97.0 94 04/27/19 19:58 Room Air I&O- Last 24 Hours up to 6 AM 04/28/19 05:59 Intake Total 350 ml Output Total 575 ml Balance -225 ml Laboratory Data 24H LABS Laboratory Tests 2 04/27/19 17:14: Reticulocyte # (auto) 61.3, Percent Reticulocyte Count 1.6H, Reticulocyte Hemoglobin Equivalent 28.8, Anion Gap 8, Glomerular Filtration Rate 55.2, Blood Urea Nitrogen 29H, Creatinine 1.11, Sodium Level 142, Potassium Level 4.6, Chloride Level 106, Carbon Dioxide Level 28, Calcium Level 8.7, Iron Level 75, Total Iron Binding Capacity 318, Transferrin % Saturation 23.6, Ferritin 24 04/28/19 05:50: Anion Gap 8, Glomerular Filtration Rate > 60.0, Blood Urea Nitrogen 27H, Creatinine 1.01, Sodium Level 142, Potassium Level 3.6#, Chloride Level 106, Carbon Dioxide Level 28, Calcium Level 8.6, Nucleated Red Blood Cells % (auto) 0.0 CBC/BMP Laboratory Tests 04/27/19 17:14 Calcium Level 8.7 04/28/19 05:50 Calcium Level 8.6, Red Blood Count 3.61 L, Mean Corpuscular Volume 81.2, Mean Corpuscular Hemoglobin 25.5 L, Mean Corpuscular Hemoglobin Concent 31.4 L, Red Cell Distribution Width 15.8 H Microbiology Microbiology 04/27/19 Blood Culture, Received Pending 04/27/19 Blood Culture, Received Pending 04/27/19 Urine Culture - Final, Complete REE PARRA MD April 28, 2019 14:11
[2019-04-28] MEDS: ENOXAPARIN 40 MG/0.4 ML SYRINGE (J1650) SC SCH (21:42)
[2019-04-28] MEDS: PHENYTOIN ER 100 MG CAP PO SCH (21:45)
[2019-04-28] MEDS: ARIPiprazole 2 MG TAB PO SCH (21:45)
[2019-04-28] MEDS: traZODone 50 MG TAB PO SCH (21:45)
[2019-04-28 22:00] VITALS: BP 120/60
[2019-04-29 05:10] LABS: HEMATOCRIT 28.3 % (36.0-47.0); MEAN CORPUSCULAR HEMOGLOBIN 24.9 pg (27.0-33.0); MEAN CORPUSCULAR HGB CONC 31.8 g/dl (32.0-36.5); MEAN CORPUSCULAR VOLUME 78.4 fl (80.0-96.0); PLATELET COUNT, AUTOMATED 187 10^3/uL (150-450); RED BLOOD COUNT 3.61 10^6/uL (4.00-5.40); WHITE BLOOD COUNT 3.8 10^3/uL (4.0-10.0)
[2019-04-29 05:29] LABS: CALCIUM LEVEL 8.9 MG/DL (8.5-10.1); CREATININE FOR GFR 1.06 MG/DL (0.55-1.30); GLOMERULAR FILTRATION RATE 58.2 (>51); POTASSIUM SERUM 3.9 MEQ/L (3.5-5.1)
[2019-04-29] MEDS: LEVOTHYROXINE 50MCG TABLET (0.05MG) PO SCH (05:37)
[2019-04-29] MEDS: MEROPENEM INJ 1 GM in APPROPRIATE DILUENT 1 EA IV SCH ×3 (05:37→20:38)
[2019-04-29 06:00] VITALS: BP 123/70
[2019-04-29] MEDS: SODIUM CHLORIDE 0.9% INJ 10 ML SYR IV PRN ×2 (06:38→21:17)
[2019-04-29] MEDS: MORPHINE 4 MG/ML 1ML VIAL/SYRINGE (J2270) IV PRN ×2 (06:46→12:49)
[2019-04-29 07:53] VITALS: BP 126/78
[2019-04-29] MEDS: LACTULOSE 20 GM/30 ML SYRUP UD PO SCH (09:00)
[2019-04-29] MEDS: hydrOXYzine 50 MG TAB PO SCH ×2 (09:31→20:40)
[2019-04-29] MEDS: PREGABALIN 100 MG CAP (LYRICA) PO SCH ×2 (09:32→20:40)
[2019-04-29] MEDS: levETIRAcetam 250MG TABLET (KEPPRA) PO SCH ×2 (09:32→20:40)
[2019-04-29] MEDS: ACYCLOVIR 200 MG CAPSULE PO SCH ×2 (09:33→20:39)
[2019-04-29] MEDS: DULoxetine 30 MG CAP (CYMBALTA) PO SCH ×2 (09:33→20:38)
[2019-04-29] MEDS: POTASSIUM CHLORIDE 10 MEQ SR TABLET PO SCH (09:33)
[2019-04-29] MEDS: DIVALPROEX 500MG *ER* TAB PO SCH ×2 (09:34→20:40)
[2019-04-29] MEDS: MELOXICAM (MOBIC) 7.5 MG TAB PO SCH (09:34)
[2019-04-29] MEDS: METOPROLOL SUCC *XL* 25MG TAB (TopROL *XL*) PO SCH (09:34)
[2019-04-29] MEDS: OMEPRAZOLE 20 MG CAP PO SCH ×2 (09:35→20:39)
[2019-04-29] MEDS: AMANTADINE 100 MG CAP PO SCH ×2 (09:38→20:38)
[2019-04-29] MEDS: SODIUM CHLORIDE 0.9% INJ 10 ML SYR IV SCH (09:51)
[2019-04-29] MEDS: clonazePAM 1 MG TAB PO SCH ×2 (09:51→20:38)
--- NOTE | 2019-04-29 10:07 | IPNPDOC ---
Date Seen The patient was seen on 04/29/19. Progress Note SUBJECTIVE: Patient tells me that she feels better today. She still has pain she tells me she developed a little bit of a cough and that when she coughs it hurts her back in her stomach. Otherwise she was able to get up and ambulate independently back and forth from the restroom patient denies chest pain, shortness breath, nausea, vomiting, fevers, chills OBJECTIVE PHYSICAL EXAMINATION: VITAL SIGNS: Please see below. GENERAL: sitting up in bed awake alert oriented speaking in complete sentences no acute distress, awake alert oriented 3 no acute distress whatsoever she is feeding herself breakfast HEENT: Moist mucous membranes no elevation and CVP CARDIOVASCULAR: S1 S2 regular no additional heart sounds appreciated. RESPIRATORY: Clear to auscultation bilaterally. ABDOMINAL: Bowel sounds present abdomen soft and nontender obese EXTREMITIES: No clubbing cyanosis or edema NEUROLOGICAL: unchanged from previous days exam PSYCHOLOGICAL: Appropriate LABORATORY DATA: See below. MICROBIOLOGY: Please see below. IMAGING: Chest x-ray:No acute cardiopulmonary process appreciated ASSESSMENT & PLAN: This is a 53-year-old female with a history of urostomy and progressive multiple sclerosis on a immunosuppressive therapy presenting with exacerbation of chronic symptoms and abnormal urinalysis highly suggestive of a urinary tract infection. PROBLEMS: 1. Urinary tract infection: Although her culture is negative she does appear to be significantly improved with IV meropenem. Given her previous hospitalizations and clinical course for similar admissions she is always improved on antibiotics for urinary tract infections and I do suspect that her urine is chronically contaminated. She is immunosuppressed and certainly at risk for infection. I'll continue her on IV meropenem for now have abated to continue working with physical therapy and occupational therapy she doesn't appear significantly im proved over the last 48 hours. Her pain is adequately controlled she appears significantly more comfortable today would consider discontinue IV narcotics tomorrow 2. Progressive multiple sclerosis: For now we are holding her infusion this only once every 6 months he is oriented received it continue with amantadine meloxicam Lyrica tizanidine baclofen 3. Mood disorder: Continue with trazodone daily at bedtime duloxetine hydroxyzine clonazepam Abilify 4. Shingles: Continue with acyclovir 5. Seizure disorder: Continue with Depakote and Keppra; Lyrica 6. Constipation: Likely related to multiple sclerosis continue with lactulose and senna 7. Hypothyroidism: Continue with levothyroxine 8. Hypertension: Continue with Toprol-XL 9. Gastric esophageal reflux disease: Continue with omeprazole 10. Obesity: Complicating care 11. Cough: She is on antibiotics I will check chest x-ray, she is afebrile with no leukocytosis, she has been in bed for quite some time I will provide her with an incentive spirometer and encourage her to be out of bed as much as possible DVT PROPHYLAXIS:Lovenox DISPOSITION: Pending PTOT VS, I&O, 24H, Fishbone Vital Signs/I&O Vital Signs Date Time Temp Pulse Resp B/P (MAP) Pulse Ox O2 Delivery O2 Flow Rate FiO2 04/29/19 09:34 90 126/78 04/29/19 08:13 18 04/29/19 08:00 94 04/29/19 06:00 98.3 04/27/19 19:58 Room Air I&O- Last 24 Hours up to 6 AM 04/29/19 06:00 Intake Total 2615 ml Output Total 2275 ml Balance 340 ml Laboratory Data 24H LABS Laboratory Tests 2 04/29/19 04:55: Nucleated Red Blood Cells % (auto) 0.0, Anion Gap 7L, Glomerular Filtration Rate 58.2, Blood Urea Nitrogen 22H, Creatinine 1.06, Sodium Level 141, Potassium Level 3.9, Chloride Level 106, Carbon Dioxide Level 28, Calcium Level 8.9 CBC/BMP Laboratory Tests 04/29/19 04:55 Red Blood Count 3.61 L, Mean Corpuscular Volume 78.4 L, Mean Corpuscular Hemoglobin 24.9 L, Mean Corpuscular Hemoglobin Concent 31.8 L, Red Cell Distribution Width 15.9 H, Calcium Level 8.9 Microbiology Microbiology 04/27/19 Blood Culture - Preliminary, Resulted No growth after 24 hours . All specim... 04/27/19 Blood Culture - Preliminary, Resulted No growth after 24 hours . All specim... 04/27/19 Urine Culture - Final, Complete REE PARRA MD Apr 29, 2019 10:07
--- NOTE | 2019-04-29 10:25 | REP ---
Clinical: Cough. Comparison: 04/27/2019. Findings: [id number] with tip in the SVC remains stable. Mediastinum and cardiac silhouette normal. Lung allison are clear. No acute consolidation, effusion, or pneumothorax. Skeletal structures are intact. Impression: No acute cardiopulmonary process or focal consolidation. Electronically Signed by Efe Tovar MD 04/29/2019 10:16 A
[2019-04-29 11:48] VITALS: BP 122/78
[2019-04-29 14:00] VITALS: BP 130/70
[2019-04-29] MEDS ORDERED: IPRATROPIUM 0.5MG/ALBUTEROL 2.5MG INH SOL UD 3ML (DUONEB)(J7620) NEB PRN (14:30)
[2019-04-29] MEDS ORDERED: IPRATROPIUM 0.5MG/ALBUTEROL 2.5MG INH SOL UD 3ML (DUONEB)(J7620) NEB ONE (14:30)
[2019-04-29 14:34] LABS: ABG BASE EXCESS -0.7 (-2.0-2.0); ABG HCO3 24.3 MEQ/L (22.0-26.0); ABG O2 SATURATION 97.2 % (95.0-99.0); ABG PARTIAL PRESSURE CO2 41.9 mmHg (35.0-45.0); ABG STANDARD HCO3 23.9 MEQ/L (22.0-26.0); ABG TOTAL CO2 25.6 MEQ/L (22.0-29.0); ABG pH (ARTERIAL) 7.382 UNITS (7.350-7.450)
[2019-04-29] MEDS: PHENYTOIN ER 100 MG CAP PO SCH (20:39)
[2019-04-29] MEDS: traZODone 50 MG TAB PO SCH (20:40)
[2019-04-29] MEDS: ARIPiprazole 2 MG TAB PO SCH (20:40)
[2019-04-29] MEDS: IBUPROFEN 800 MG TAB PO PRN (20:41)
[2019-04-29] MEDS: ENOXAPARIN 40 MG/0.4 ML SYRINGE (J1650) SC SCH (20:42)
[2019-04-29 22:00] VITALS: BP 136/72
[2019-04-30] MEDS: MEROPENEM INJ 1 GM in APPROPRIATE DILUENT 1 EA IV SCH (05:29)
[2019-04-30] MEDS: LEVOTHYROXINE 50MCG TABLET (0.05MG) PO SCH (05:30)
[2019-04-30 05:54] LABS: HEMATOCRIT 29.3 % (36.0-47.0); HEMOGLOBIN 9.1 g/dl (12.0-15.5); MEAN CORPUSCULAR HEMOGLOBIN 25.5 pg (27.0-33.0); MEAN CORPUSCULAR HGB CONC 31.1 g/dl (32.0-36.5); MEAN CORPUSCULAR VOLUME 82.1 fl (80.0-96.0); PLATELET COUNT, AUTOMATED 194 10^3/uL (150-450); RED BLOOD COUNT 3.57 10^6/uL (4.00-5.40); WHITE BLOOD COUNT 3.8 10^3/uL (4.0-10.0)
[2019-04-30 06:00] VITALS: BP 133/78
[2019-04-30 06:04] LABS: CALCIUM LEVEL 8.7 MG/DL (8.5-10.1); CREATININE FOR GFR 1.08 MG/DL (0.55-1.30); GLOMERULAR FILTRATION RATE 56.9 (>51); POTASSIUM SERUM 4.1 MEQ/L (3.5-5.1)
[2019-04-30] MEDS: levETIRAcetam 250MG TABLET (KEPPRA) PO SCH (08:38)
[2019-04-30] MEDS: POTASSIUM CHLORIDE 10 MEQ SR TABLET PO SCH (08:38)
[2019-04-30] MEDS: hydrOXYzine 50 MG TAB PO SCH (08:38)
[2019-04-30] MEDS: DULoxetine 30 MG CAP (CYMBALTA) PO SCH (08:38)
[2019-04-30] MEDS: OMEPRAZOLE 20 MG CAP PO SCH (08:38)
[2019-04-30] MEDS: MELOXICAM (MOBIC) 7.5 MG TAB PO SCH (08:38)
[2019-04-30] MEDS: PREGABALIN 100 MG CAP (LYRICA) PO SCH (08:38)
[2019-04-30] MEDS: IBUPROFEN 800 MG TAB PO PRN (08:39)
[2019-04-30] MEDS: DIVALPROEX 500MG *ER* TAB PO SCH (08:39)
[2019-04-30] MEDS: LACTULOSE 20 GM/30 ML SYRUP UD PO SCH (08:39)
[2019-04-30] MEDS: AMANTADINE 100 MG CAP PO SCH (08:40)
[2019-04-30] MEDS: clonazePAM 1 MG TAB PO SCH (08:41)
[2019-04-30 08:42] VITALS: BP 108/65
[2019-04-30] MEDS: METOPROLOL SUCC *XL* 25MG TAB (TopROL *XL*) PO SCH (08:42)
[2019-04-30] MEDS: SODIUM CHLORIDE 0.9% INJ 10 ML SYR IV SCH (08:43)
[2019-04-30] MEDS: ACYCLOVIR 200 MG CAPSULE PO SCH (08:45)
[2019-04-30] MEDS ORDERED: FOSFOMYCIN TROMETHAMINE 3 GM POWDER PACKET (MONUROL) PO STA (08:56)
--- NOTE | 2019-04-30 09:11 | DS.PDOC ---
Discharge Summary General Date of Admission April 27, 2019 at 16:35 Date of Discharge 04/30/19 Discharge Summary DISCHARGE DIAGNOSIS: Urinary tract infection SECONDARY DIAGNOSIS: 1.Progressive multiple sclerosis 2. Mood disorder 3. Shingles 4. Seizure disorder 5. Chronic constipation 6. Hypothyroidism 7. Hypertension 8. Gastroesophageal reflux disease 9. Obesity 10. Shortness of breath PROCEDURES PERFORMED DURING STAY: None. CONSULTANTS: None HOSPITAL COURSE: Patient is a 53-year-old female with a history of urostomy secondary to neurogenic bladder and also progressive multiple sclerosis followed in [place] by neurology there. She's been on immunotherapy which she receives infusions every 6 months after each of her last several infusions she has had significant back pain prompting her to be admitted to [facility] each time she's been diagnosed with a urinary tract infection started on antibiotics and improved with treatment. This hospitalization was no different than the previous it seems although her urine culture was negative she did have significant pain and discomfort and pseudo-exacerbation of multiple sclerosis. She was on meropenem while hospitalize her urine culture was contaminated likely secondary to her urostomy collection and she likely is chronically colonized as well. However she was treated with meropenem and had good improvement in her symptoms. She has returned to her functional baseline has now been cleared by physical therapy. During her hospital she did have significant pain and did require IV morphine after receiving several doses of that she did have some shortness of breath and as such it was discontinued and she did have prompt resolution of her shortness of breath and had no O2 requirement or decreased level of consciousness. She has a history of numerous urinary tract infections in the past with poly-organisms the only with any significant resistances pseudomonas which she did not grow on this occasion.She was on IV meropenem initially to cover broad-spectrum however she did receive a one-time dose of fosfomycin prior to discharge. DISCHARGE MEDICATIONS: Please see below. ALLERGIES: Please see below. SUBJECTIVE: Patient tells me that she feels better, she denies any further shortness of breath she is awake alert oriented 3. She is accompanied by her due to her pain is improved she is returned to her baseline and would like to go home today. Otherwise she was able to get up and ambulate independently back and forth from the restroom patient denies chest pain, nausea, vomiting, fevers, chills or cough OBJECTIVE PHYSICAL EXAMINATION: VITAL SIGNS: Please see below. GENERAL: sitting up in bed eating breakfast accompanied by her awake alert and oriented 3 speaking in complete sentences no acute distress HEENT: Moist mucous membranes no elevation and CVP CARDIOVASCULAR: S1 S2 regular no additional heart sounds appreciated. RESPIRATORY: Clear to auscultation bilaterally. Good air movement ABDOMINAL: Bowel sounds present abdomen soft and nontender obese EXTREMITIES: No clubbing cyanosis or edema NEUROLOGICAL: unchanged from previous days exam PSYCHOLOGICAL: Appropriate LABORATORY DATA: See below. MICROBIOLOGY: Please see below. IMAGING: Chest x-ray:No acute cardiopulmonary process appreciated ASSESSMENT & PLAN: This is a 53-year-old female with a history of urostomy and progressive multiple sclerosis on a immunosuppressive therapy presenting with exacerbation of chronic symptoms and abnormal urinalysis highly suggestive of a urinary tract infection. PROBLEMS: 1. Urinary tract infection: Initially she was on IV meropenem broad-spectrum given her previous culture data, her urine culture did return contaminated which is not surprising given she has a urostomy. She is likely chronically colonized. But given her frequent hospitalizations immunosuppression in response to antibiotics in the past for similar presenting complaints she was treated with antibiotics and did improve. Patient previous culture data she only has pseudomonas which is resistant however she did not grow this on this particular occasion. And as such she did receive a one-time dose of fosfomycin prior to discharge. At this time she appears to be a functional baseline to complete with physical therapy and requesting discharge home to the care of her who is also present all questions answered to their satisfaction. I did suggest she should follow up with her neurologist closely and that this may be intolerance to her infusions that she receives for immunosuppression related to multiple sclerosis given that after each infusion she is admitted at [facility]. 2. Progressive multiple sclerosis: As outlined above I would recommend reconsideration of immunosuppressive therapy as she does not seem to tolerate it well and post each infusion requires hospitalization. However given her progressive disease is unclear if she has other treatment options will defer to her specialist neurologist in [place] neuromuscular [place]. She has been cleared by physical therapy continue with amantadine meloxicam Lyrica tizanidine baclofen 3. Mood disorder: Stable, Continue with trazodone daily at bedtime duloxetine hydroxyzine clonazepam Abilify 4. Shingles: No active disease, Continue with acyclovir 5. Seizure disorder: Stable, Continue with Depakote and Keppra; Lyrica 6. Constipation: Stable, Likely related to multiple sclerosis continue with lactulose and senna 7. Hypothyroidism: Continue with levothyroxine 8. Hypertension: Controlled, Continue with Toprol-XL 9. Gastric esophageal reflux disease: Continue with omeprazole 10. Obesity: Complicating care 11. Cough and shortness of breath: Secondary to her neuromuscular disease she has significant weakness I suspect that with minimal IV morphine she had difficulty with breathing with cessation of this it did resolve DVT PROPHYLAXIS:Lovenox DISPOSITION: Home to self-care with reinstatement of home services paperwork completed. DISCHARGE CONDITION: Improved and Stable. FOLLOW UP: Follow up PCP within 7 days of neurology within 2 weeks ACTIVITY: As prior to admission. DIET: As prior to admission TIME SPENT ON DISCHARGE: 50 minutes Vital Signs/I&Os Vital Signs Date Time Temp Pulse Resp B/P (MAP) Pulse Ox O2 Delivery O2 Flow Rate FiO2 04/30/19 08:42 88 108/65 04/30/19 06:00 97.0 17 98 2.0 04/27/19 19:58 Room Air I&O- Last 24 Hours up to 6 AM 04/30/19 06:00 Intake Total 1725 ml Output Total 2540 ml Balance -815 ml Laboratory Data Labs 24H Laboratory Tests 2 04/29/19 14:19: Blood Gas Bicarbonate Standard 23.9, Arterial Blood pH 7.382, Arterial Blood Partial Pressure CO2 41.9, Arterial Blood Partial Pressure O2 100.0, Arterial Blood Total CO2 25.6, Arterial Blood HCO3 24.3, Arterial Blood Base Excess -0.7, Arterial Blood Oxygen Saturation 97.2 04/30/19 05:24: Nucleated Red Blood Cells % (auto) 0.0, Anion Gap 5L, Glomerular Filtration Rate 56.9, Blood Urea Nitrogen 18, Creatinine 1.08, Sodium Level 143, Potassium Level 4.1, Chloride Level 108H, Carbon Dioxide Level 30, Calcium Level 8.7 CBC/BMP Laboratory Tests 04/30/19 05:24 Red Blood Count 3.57 L, Mean Corpuscular Volume 82.1, Mean Corpuscular Hemoglobin 25.5 L, Mean Corpuscular Hemoglobin Concent 31.1 L, Red Cell Distribution Width 15.8 H, Calcium Level 8.7 Microbiology Microbiology 04/27/19 Blood Culture - Preliminary, Resulted No Growth after 48 hours. All Specime... 04/27/19 Blood Culture - Preliminary, Resulted No Growth after 48 hours. All Specime... 04/29/19 Respiratory Virus Panel (PCR) (VANDANA) - Final, Complete 04/29/19 Urine Culture, Received Pending 04/27/19 Urine Culture - Final, Complete Discharge Medications Scheduled Acyclovir (Acyclovir) 400 Mg Tab, 400 MG PO BID, (Reported) Amantadine HCl (Amantadine) 100 Mg Tab, 100 MG PO BID, (Reported) Aripiprazole (Aripiprazole) 2 Mg Tablet, 2 MG PO QHS, (Reported) Clonazepam (Clonazepam) 1 Mg Tab, 1 MG PO BID, (Reported) Divalproex Sodium (Depakote ER) 500 Mg Tab.er.24h, 500 MG PO BID, (Reported) Duloxetine Hcl (Duloxetine HCl) 60 Mg Capsule.dr, 60 MG PO BID, (Reported) Hydroxyzine HCl (Hydroxyzine HCl) 50 Mg Tab, 50 MG PO BID, (Reported) Lactulose (Lactulose) 10 Gm/15 Ml Deborah, 30 ML PO DAILY, (Reported) Levetiracetam (Keppra) 500 Mg Tablet, 500 MG PO BID, (Reported) Levothyroxine Sodium (Levothyroxine Sodium) 50 Mcg Tablet, 50 MCG PO QAM, (Reported) Meloxicam (Meloxicam) 15 Mg Tablet, 15 MG PO DAILY, (Reported) Metoprolol Succinate (Metoprolol Succinate) 25 Mg Tab, 25 MG PO DAILY, (Reported) Mometasone Furoate (Asmanex Hfa) 100 Mcg/Act Aer, 1 PUFF INH QPM, (Reported) Omeprazole (Omeprazole) 40 Mg Cap, 40 MG PO BID, (Reported) Phenytoin Sodium Extended (Dilantin) 100 Mg Capsule, 500 MG PO QHS, (Reported) Potassium Chloride (Potassium Chloride) 10 Meq Tab.er.prt, 10 MEQ PO DAILY, (Reported) Pregabalin (Lyrica) 100 Mg Capsule, 300 MG PO BID, (Reported) Trazodone HCl (Trazodone HCl) 150 Mg Tablet, 150 MG PO QHS, (Reported) Scheduled PRN Albuterol Sulfate (Ventolin Hfa) 108 Mcg/Act Aer, 2 PUFFS INH Q4H PRN for SHORTNESS OF BREATH, (Reported) Baclofen (Baclofen) 20 Mg Tablet, 40 MG PO QHS PRN for MUSCLE SPASMS, (Reported) Bisacodyl (Bisacodyl) 10 Mg Sup, 10 MG GA DAILY PRN for CONSTIPATION, (Reported) Nystatin (Nystatin Powder) 15 Gm Powder, 1 APLCT TOP BID PRN for RASH/ITCHING, (Reported) APPLY TO UROSTOMY Promethazine HCl (Promethazine HCl) 25 Mg Tab, 25 MG PO Q4H PRN for NAUSEA, (Reported) Senna (Senna Lax) 8.6 Mg Tab, 2 TAB PO BID PRN for CONSTIPATION, (Reported) Tizanidine HCl (Zanaflex) 4 Mg Tab, 4 MG PO Q8H PRN for MUSCLE SPASMS, (Reported) Allergies Coded Allergies: Cephalosporins (Verified Allergy, Mild, rash, 04/27/19) Sulfa (Sulfonamide Antibiotics) (Verified Allergy, Mild, itchy, 04/27/19) oxycodone (Verified Allergy, Mild, itchy, 04/27/19) hydrocodone (Verified Adverse Reaction, Intermediate, chest pain, 04/27/19) acetaminophen (Verified Adverse Reaction, Mild, NAUSEA, 04/27/19) REE PARRA MD Apr 30, 2019 09:10
== END 2019-04-30 10:50 | disposition home health service (06) | DRG 690 ==
LOC: M ED 12:03 → M ED INP 16:35 → M MSPAV 20:02
PROVIDERS: ADMIT Internal Medicine; ATTEND Internal Medicine
DX: N39.0 Urinary tract infection, site not specified (principal); G35 Multiple sclerosis; G40.909 Epilepsy, unspecified, not intractable, without status epilepticus; N31.9 Neuromuscular dysfunction of bladder, unspecified; M43.6 Torticollis; F48.2 Pseudobulbar affect; G89.29 Other chronic pain; I10 Essential (primary) hypertension; E03.9 Hypothyroidism, unspecified; F39 Unspecified mood [affective] disorder; K21.9 Gastro-esophageal reflux disease without esophagitis; G43.909 Migraine, unspecified, not intractable, without status migrainosus; E66.9 Obesity, unspecified; D64.9 Anemia, unspecified; Z93.6 Other artificial openings of urinary tract status; Z87.891 Personal history of nicotine dependence; Z85.828 Personal history of other malignant neoplasm of skin; B02.9 Zoster without complications; K59.00 Constipation, unspecified; Z79.899 Other long term (current) drug therapy; Z88.1 Allergy status to other antibiotic agents; Z88.2 Allergy status to sulfonamides; Z88.5 Allergy status to narcotic agent; Z88.6 Allergy status to analgesic agent

== ENCOUNTER → 2019-05-04 | Outpatient (REF) | payer MEDICARE, OTHER ==
[~2019-05-04] MED LIST changes: +ARIP1TAB4 PO; +ATOR40TA75 PO; +DEPA500T2 PO; +DULO1CAP6 PO; +FLUC150T PO; +KEPP1TAB PO; +LEVO50TA5 PO; +NYST10CR TOP; +NYST1POW9 TOP; +POTA10TA17 PO; +PREG100CA PO; -TRAZ-160; +TRAZ-252; +traz
[2019-05-04 18:15] LABS: CHOLESTEROL LEVEL 255 MG/DL (<200); FREE T4 0.79 NG/DL (0.76-1.46); HDL CHOLESTEROL 38 MG/DL (>40); NON-HDL-C 217 MG/DL; TOTAL 25(OH) VITAMIN D 23.5 NG/ML (30.0-100.0); TRIGLYCERIDES LEVEL 722 MG/DL (<150)
[2019-05-04 18:25] LABS: HEMOGLOBIN A1c 5.3 %
== END ==
LOC: M SFHCPLAZ 16:12
PROVIDERS: ATTEND Family Medicine
DX: E03.9 Hypothyroidism, unspecified (principal); Z13.1 Encounter for screening for diabetes mellitus; Z13.220 Encounter for screening for lipoid disorders; E55.9 Vitamin D deficiency, unspecified
CPT/HCPCS: 36415; 80061; 82306; 83036; 84439; 84443; G0463

== ENCOUNTER → 2019-05-30 | Outpatient (REF) | payer MEDICARE, BC, OTHER ==
[~2019-05-30] MED LIST changes: +ABIL1TAB13 PO; +ACYC200C8 PO; +ALB2.5NEB NEB; +AMANTADINE HCL PO; +ASPI81CH8 PO; +ATOR1TAB21 PO; +BACL10TA2 PO; +BISA10SU PR; +COLA100C5 PO; +CYMB1CAP5 PO; +ECOT81TA5 PO; +FERR325T18 PO; +FERR325T3 PO; +FLEETOIL PR; +HEPA500011 SQ; +IPRA0.00 NEB; +KLOR10TA76 PO; +LACT10SO3 PO; +LEVO250T12 PO; +MELO7.5T35 PO; +MERO1INJ IV; +MONUROL PO; +MORP10SO2 PO; +MORP1SOL3 PO; +MORP20SO PO; +NYAM10003 TOP; +OCRE300I IV; +OMEP-218 PO; +ONDA8TAB10 PO; -ONDA8TAB7 PO; +PHEN100C PO; +PHEN30CA PO; +PREG300C PO; +PROM50TA4 PO; +SENN-52 PO; +SIME80TA PO; -TRAZ-163 PO; +TRAZ-252 PO; +TRAZ-257 PO; +VITA500045 PO; +XIFA200T2 PO; +[UNRECOGNIZED DRUG - CODE] IJ; +[UNRECOGNIZED DRUG - CODE] PO
[2019-05-30 15:57] LABS: CHOLESTEROL LEVEL 227 MG/DL (<200); CHOLESTEROL RISK RATIO 4.829 (<5); HDL CHOLESTEROL 47 MG/DL (>40); NON-HDL-C 180 MG/DL; TRIGLYCERIDES LEVEL 540 MG/DL (<150)
== END ==
LOC: M SFHCPLAZ 13:54
PROVIDERS: ATTEND Family Medicine
DX: E78.2 Mixed hyperlipidemia (principal)
CPT/HCPCS: 36415; 80061; G0463

== ENCOUNTER 2019-06-08 15:04 | Inpatient (IN) | payer MEDICARE, BC, OTHER ==
[~2019-06-08] VITALS: Ht 154.9 cm; Wt 96.5 kg
[~2019-06-08 15:04] MED LIST changes: -ABIL1TAB13 PO; -ACYC200C8 PO; -ALB2.5NEB NEB; -AMANTADINE HCL PO; -ASPI81CH8 PO; -ATOR1TAB21 PO; -ATOR40TA75 PO; -BACL10TA2 PO; -BISA10SU PR; -COLA100C5 PO; -CYMB1CAP5 PO; -ECOT81TA5 PO; -FERR325T18 PO; -FERR325T3 PO; -FLEETOIL PR; -FLUC150T PO; -HEPA500011 SQ; -IPRA0.00 NEB; -KLOR10TA76 PO; -LACT10SO3 PO; -LEVO250T12 PO; -MELO7.5T35 PO; -MERO1INJ IV; -MONUROL PO; -MORP10SO2 PO; -MORP1SOL3 PO; -MORP20SO PO; -NYAM10003 TOP; -NYST10CR TOP; -OCRE300I IV; -OMEP-218 PO; -ONDA8TAB10 PO; +ONDA8TAB7 PO; -PHEN100C PO; -PHEN30CA PO; -PREG300C PO; -PROM50TA4 PO; -SENN-52 PO; -SIME80TA PO; +TRAZ-163 PO; -TRAZ-252 PO; -TRAZ-257 PO; -VITA500045 PO; -XIFA200T2 PO; -[UNRECOGNIZED DRUG - CODE] IJ; -[UNRECOGNIZED DRUG - CODE] PO
[2019-06-08] MEDS ORDERED: IPRATROPIUM 0.5MG/ALBUTEROL 2.5MG INH SOL UD 3ML (DUONEB)(J7620) NEB ONE (15:45)
[2019-06-08] MEDS ORDERED: ONDANSETRON 4MG/2ML VIAL (J2405) IV ONE (15:45)
[2019-06-08] MEDS ORDERED: NS 1,000 ML IV ONE (15:45)
[2019-06-08 17:10] LABS: BASO % 0.4 % (0.0-1.0); EOS # 0.3 10^3/uL (0.0-0.50); HEMATOCRIT 29.6 % (36.0-47.0); HEMOGLOBIN 9.6 g/dl (12.0-15.5); LYMPH # 0.5 10^3/uL (1.5-4.5); LYMPH % 9.7 % (24.0-44.0); MEAN CORPUSCULAR HEMOGLOBIN 24.9 pg (27.0-33.0); MEAN CORPUSCULAR HGB CONC 32.4 g/dl (32.0-36.5); MEAN CORPUSCULAR VOLUME 76.9 fl (80.0-96.0); MONO # 0.5 10^3/uL (0.0-0.8); MONO % 9.5 % (0.0-5.0); NEUTROPHILS # 3.9 10^3/uL (1.8-7.7); NEUTROPHILS % 73.7 % (36.0-66.0); PLATELET COUNT, AUTOMATED 232 10^3/uL (150-450); RED BLOOD COUNT 3.85 10^6/uL (4.00-5.40); WHITE BLOOD COUNT 5.4 10^3/uL (4.0-10.0)
[2019-06-08 17:47] LABS: CALCIUM LEVEL 8.3 MG/DL (8.5-10.1); CREATININE FOR GFR 1.23 MG/DL (0.55-1.30); POTASSIUM SERUM 4.3 MEQ/L (3.5-5.1); THYROID STIMULATING HORMONE 2.92 uIU/ML (0.358-3.740); VALPROIC ACID (DEPAKOTE) 34.5 UG/ML (50.0-100.0)
[2019-06-08] MEDS ORDERED: MEROPENEM INJ 1 GM in APPROPRIATE DILUENT 1 EA IV ONE (18:15)
[2019-06-08] MEDS ORDERED: NYST10CR TOP (20:20)
[2019-06-08] MEDS ORDERED: FLUC150T PO (20:20)
[2019-06-08] MEDS ORDERED: ATOR40TA75 PO (20:20)
[2019-06-08] MEDS ORDERED: ALBUTEROL 90 MCG/ACT 8GM HFA INHALER INH PRN (20:45)
[2019-06-08] MEDS ORDERED: PROMETHAZINE 25 MG TAB PO PRN (20:45)
[2019-06-08] MEDS ORDERED: NYSTATIN CREAM 15 GM TOP PRN (20:45)
[2019-06-08] MEDS ORDERED: BISACODYL 10 MG SUPP PR PRN (20:45)
[2019-06-08] MEDS: clonazePAM 1 MG TAB PO SCH (21:33)
[2019-06-08] MEDS: OMEPRAZOLE 20 MG CAP PO SCH (21:33)
[2019-06-08] MEDS: DULoxetine 30 MG CAP (CYMBALTA) PO SCH (21:33)
[2019-06-08] MEDS: traZODone 50 MG TAB PO SCH (21:33)
[2019-06-08] MEDS: ARIPiprazole 2 MG TAB PO SCH (21:33)
[2019-06-08] MEDS: DIVALPROEX 500MG *ER* TAB PO SCH (21:33)
[2019-06-08] MEDS: PREGABALIN 100 MG CAP (LYRICA) PO SCH (21:34)
[2019-06-08] MEDS: PHENYTOIN ER 100 MG CAP PO SCH (21:34)
[2019-06-08] MEDS: AMANTADINE 100 MG CAP PO SCH (21:34)
[2019-06-08] MEDS: ENOXAPARIN 40 MG/0.4 ML SYRINGE (J1650) SC SCH (21:35)
[2019-06-08] MEDS: hydrOXYzine 50 MG TAB PO SCH (21:36)
[2019-06-08] MEDS: levETIRAcetam 250MG TABLET (KEPPRA) PO SCH (21:37)
[2019-06-08] MEDS ORDERED: LevoFLOXacin IV 500 MG in APPROPRIATE DILUENT 1 EA IV ONE (22:45)
--- NOTE | 2019-06-08 22:45 | HPEPDOC ---
General Date of Admission Jun 08, 2019 at 20:42 Date of Service: Jun 08, 2019 Chief Complaint The patient is a 53-year-old female admitted with a reason for visit of UTI. History of Present Illness 53-year-old female with past medical history of multiple sclerosis diagnosed in 2005, chronic pain secondary to multiple sclerosis, anxiety/depression, shingles, obesity, hypothyroidism, and neurogenic bladder status post urostomy with recurrent urinary tract infections presents to the ER with chief complaint of increased lethargy, malaise, and chills over the last several days. The patient states that during this time she is also noticed cloudy urine. She denies any complaints of fevers, cough, congestion, abdominal pain, or any diarrhea. In the ER, the patient's urinalysis was suggestive of a urinary tract infection given her clinical picture as well. She will be admitted to the hospitalist [facility] for further evaluation and management. Home Medications Scheduled Acyclovir (Acyclovir) 400 Mg Tab, 400 MG PO BID, (Reported) Amantadine HCl (Amantadine) 100 Mg Tab, 100 MG PO BID, (Reported) Aripiprazole (Aripiprazole) 2 Mg Tablet, 2 MG PO QHS, (Reported) Atorvastatin Calcium (Atorvastatin Calcium) 40 Mg Tablet, 40 MG PO DAILY, (Reported) Clonazepam (Clonazepam) 1 Mg Tab, 1 MG PO BID, (Reported) Divalproex Sodium (Depakote ER) 500 Mg Tab.er.24h, 500 MG PO BID, (Reported) Duloxetine Hcl (Duloxetine HCl) 60 Mg Capsule.dr, 60 MG PO BID, (Reported) Fluconazole (Fluconazole) 150 Mg Tablet, 150 MG PO DAILY, (Reported) TO TAKE X 7 DAYS STARTED 06/04/19 Hydroxyzine HCl (Hydroxyzine HCl) 50 Mg Tab, 50 MG PO BID, (Reported) Levetiracetam (Keppra) 500 Mg Tablet, 500 MG PO BID, (Reported) Levothyroxine Sodium (Levothyroxine Sodium) 50 Mcg Tablet, 50 MCG PO QAM, (Reported) 30 MINUTES BEFORE BREAKFAST Meloxicam (Meloxicam) 15 Mg Tablet, 15 MG PO DAILY, (Reported) Metoprolol Succinate (Metoprolol Succinate) 25 Mg Tab, 25 MG PO DAILY, (Reported) Omeprazole (Omeprazole) 40 Mg Cap, 40 MG PO BID, (Reported) Phenytoin Sodium Extended (Dilantin) 100 Mg Capsule, 500 MG PO QHS, (Reported) Potassium Chloride (Potassium Chloride) 10 Meq Tab.er.prt, 10 MEQ PO DAILY, (Reported) Pregabalin (Lyrica) 100 Mg Capsule, 300 MG PO BID, (Reported) Trazodone HCl (Trazodone HCl) 150 Mg Tablet, 150 MG PO QHS, (Reported) Scheduled PRN Albuterol Sulfate (Ventolin Hfa) 108 Mcg/Act Aer, 2 PUFFS INH Q4H PRN for SHORTNESS OF BREATH, (Reported) Bisacodyl (Bisacodyl) 10 Mg Sup, 10 MG ND DAILY PRN for CONSTIPATION, (Reported) Lactulose (Lactulose) 10 Gm/15 Ml Deborah, 30 ML PO DAILY PRN for CONSTIPATION, (Reported) Mometasone Furoate (Asmanex Hfa) 100 Mcg/Act Aer, 1 PUFF INH QPM PRN for ASTHMA, (Reported) Nystatin (Nystatin) 15 Gm Cream..g., 1 DOSE TOP DAILY PRN for RASH, (Reported) APPLIES TO UROSTOMY Promethazine HCl (Promethazine HCl) 25 Mg Tab, 25 MG PO Q4H PRN for NAUSEA, (Reported) Senna (Senna Lax) 8.6 Mg Tab, 2 TAB PO BID PRN for CONSTIPATION, (Reported) Tizanidine HCl (Zanaflex) 4 Mg Tab, 4 MG PO Q8H PRN for MUSCLE SPASMS, (Reported) Allergies Coded Allergies: Cephalosporins (Verified Allergy, Mild, rash, 04/27/19) Sulfa (Sulfonamide Antibiotics) (Verified Allergy, Mild, itchy, 04/27/19) oxycodone (Verified Allergy, Mild, itchy, 04/27/19) hydrocodone (Verified Adverse Reaction, Intermediate, chest pain, 04/27/19) acetaminophen (Verified Adverse Reaction, Mild, NAUSEA, 04/27/19) Past Medical History Medical History As noted in HPI. Surgical History 1. Breast reduction surgery 2. bilateral wrist surgery.. 3. Bladder resection 4. Hysterectomy 5. Tubal ligation 6. Mohs surgery for basal cancer 7. Port placement 8. Left ulnar implant. Social History Lives with: , Employment: Not working, Tobacco use: Former smoker [id number]. ETOH: Denies, Illicit drug use: Occasional THC use, Tattoos done unprofessionally: Denies, CODE STATUS: Full code Review of Systems Other systems 10 point review of systems negative unless otherwise specified in HPI. Physical Examination General Exam: Positive: Alert, Cooperative, No Acute Distress ENT Exam: Positive: Atraumatic, Mucous membr. moist/pink Neck Exam: Negative: JVD Chest Exam: Positive: Clear to auscultation, Normal air movement Heart Exam: Positive: Rate Normal, Normal S1, Normal S2 Abdomen Exam: Positive: Soft, Other (positive for urostomy tube); Negative: Tenderness Extremity Exam: Negative: Tenderness, Swelling Psych Exam: Positive: Oriented x 3 Vital Signs Vital Signs Date Time Temp Pulse Resp B/P (MAP) Pulse Ox O2 Delivery O2 Flow Rate FiO2 06/08/19 16:07 06/08/19 15:04 98.2 90 18 100 Room Air Laboratory Data Labs 24H Laboratory Tests 2 06/08/19 15:40: Immature Granulocyte % (Auto) 0.7, White Blood Count 5.4, Red Blood Count 3.85L, Hemoglobin 9.6L, Hematocrit 29.6L, Mean Corpuscular Volume 76.9L, Mean Corpuscular Hemoglobin 24.9L, Mean Corpuscular Hemoglobin Concent 32.4, Red Cell Distribution Width 15.6H, Platelet Count 232, Neutrophils (%) (Auto) 73.7H, Lymphocytes (%) (Auto) 9.7L, Monocytes (%) (Auto) 9.5H, Eosinophils (%) (Auto) 6.0H, Basophils (%) (Auto) 0.4, Neutrophils # (Auto) 3.9, Lymphocytes # (Auto) 0.5L, Monocytes # (Auto) 0.5, Eosinophils # (Auto) 0.3, Basophils # (Auto) 0.0, Nucleated Red Blood Cells % (auto) 0.0, Anion Gap 11, Glomerular Filtration Rate 49.0L, Lactic Acid Level 1.3, Blood Urea Nitrogen 23H, Creatinine 1.23, Sodium Level 142, Potassium Level 4.3, Chloride Level 104, Carbon Dioxide Level 27, Calcium Level 8.3L, Thyroid Stimulating Hormone (TSH) 2.920, Valproic Acid (Depakene) Level 34.5L 06/08/19 15:46: Urine Color YELLOW, Urine Appearance TURBIDH, Urine pH 6.0, Urine Specific [place] 1.012, Urine Protein 1+H, Urine Glucose (UA) NEGATIVE, Urine Ketones NEGATIVE, Urine Blood 1+H, Urine Nitrite POSITIVEH, Urine Bilirubin NEGATIVE, Urine Urobilinogen 0.2, Urine Leukocyte Esterase 3+H, Urine WBC (Auto) TNTCH, Urine RBC (Auto) 35H, Urine Hyaline Casts (Auto) 0, Urine Bacteria (Auto) NEGATIVE, Urine Squamous Epithelial Cells 0, Urine Transitional Epithelial Cells 2, Urine Amorphous Sediment SMALLH, Urine Sperm (Auto) CBC/BMP Laboratory Tests 06/08/19 15:40 Red Blood Count 3.85 L, Mean Corpuscular Volume 76.9 L, Mean Corpuscular Hemoglobin 24.9 L, Mean Corpuscular Hemoglobin Concent 32.4, Red Cell Distribution Width 15.6 H, Neutrophils (%) (Auto) 73.7 H, Lymphocytes (%) (Auto) 9.7 L, Monocytes (%) (Auto) 9.5 H, Eosinophils (%) (Auto) 6.0 H, Basophils (%) (Auto) 0.4, Neutrophils # (Auto) 3.9, Lymphocytes # (Auto) 0.5 L, Monocytes # (Auto) 0.5, Eosinophils # (Auto) 0.3, Basophils # (Auto) 0.0, Calcium Level 8.3 L Microbiology Microbiology 06/08/19 Blood Culture, Received Pending 06/08/19 Blood Culture, Received Pending 06/08/19 Urine Culture, Received Pending Plan / VTE VTE Prophylaxis Ordered?: Yes Plan Plan Generalized Fatigue, Malaise 2/2 UTI Blood, Urine cultures ordered Continue meropenem and Levaquin based on previous urine culture, susceptibilities--consider infectious disease consultation, or outpatient follow-up given recurrent UTIs. Patient otherwise hemodynamically stable Physical therapy ordered for optimization We will continue to monitor the patient's clinical condition Progressive Multiple sclerosis Continue medications as ordered Mood disorder Continue current regimen Seizure disorder Continue Depakote, Curtis, Christiea Shingles Continue acyclovir Hypothyroidism Continue levothyroxine GERD Continue PPI Obesity Continue medical care Neurogenic bladder status post urostomy Follow-up as an outpatient DVT prophylaxis Lovevanessax ALIN BECK MD Jun 08, 2019 22:45
[2019-06-08 23:30] VITALS: BP 110/71
[2019-06-09] MEDS: ACYCLOVIR 200 MG CAPSULE PO SCH ×3 (00:03→20:43)
[2019-06-09] MEDS: MEROPENEM INJ 1 GM in APPROPRIATE DILUENT 1 EA IV SCH ×3 (03:01→19:25)
[2019-06-09 06:00] VITALS: BP 112/62
[2019-06-09] MEDS: LEVOTHYROXINE 50MCG TABLET (0.05MG) PO SCH (06:02)
[2019-06-09 06:52] LABS: HEMATOCRIT 28.4 % (36.0-47.0); HEMOGLOBIN 9.1 g/dl (12.0-15.5); MEAN CORPUSCULAR HEMOGLOBIN 24.7 pg (27.0-33.0); PLATELET COUNT, AUTOMATED 217 10^3/uL (150-450); RED BLOOD COUNT 3.69 10^6/uL (4.00-5.40); WHITE BLOOD COUNT 4.2 10^3/uL (4.0-10.0)
[2019-06-09 07:11] LABS: CALCIUM LEVEL 8.2 MG/DL (8.5-10.1); CREATININE FOR GFR 1.22 MG/DL (0.55-1.30); GLOMERULAR FILTRATION RATE 49.5 (>51); MAGNESIUM LEVEL 1.2 MG/DL (1.8-2.4)
[2019-06-09] MEDS: OMEPRAZOLE 20 MG CAP PO SCH ×2 (10:01→20:41)
[2019-06-09] MEDS: POTASSIUM CHLORIDE 10 MEQ SR TABLET PO SCH (10:01)
[2019-06-09] MEDS: ATORVASTATIN 20 MG TAB PO SCH (10:02)
[2019-06-09] MEDS: clonazePAM 1 MG TAB PO SCH ×2 (10:02→20:43)
[2019-06-09] MEDS: PREGABALIN 100 MG CAP (LYRICA) PO SCH ×2 (10:02→20:42)
[2019-06-09] MEDS: AMANTADINE 100 MG CAP PO SCH ×2 (10:02→20:43)
[2019-06-09] MEDS: levETIRAcetam 250MG TABLET (KEPPRA) PO SCH ×2 (10:02→20:40)
[2019-06-09] MEDS: hydrOXYzine 50 MG TAB PO SCH ×2 (10:02→20:43)
[2019-06-09] MEDS: MELOXICAM (MOBIC) 7.5 MG TAB PO SCH (10:03)
[2019-06-09] MEDS: DULoxetine 30 MG CAP (CYMBALTA) PO SCH ×2 (10:03→20:42)
[2019-06-09] MEDS: FLUCONAZOLE 50MG TABLET PO SCH (10:03)
[2019-06-09] MEDS: METOPROLOL SUCC *XL* 25MG TAB (TopROL *XL*) PO SCH (10:04)
[2019-06-09] MEDS: DIVALPROEX 500MG *ER* TAB PO SCH ×2 (10:04→20:43)
[2019-06-09 14:00] VITALS: BP 135/87
[2019-06-09] MEDS: tiZANidine 4 MG TAB PO PRN (15:08)
[2019-06-09] MEDS: IBUPROFEN 800 MG TAB PO PRN ×2 (15:31→23:36)
[2019-06-09] MEDS ORDERED: LevoFLOXacin IV 250 MG in APPROPRIATE DILUENT 1 EA IV SCH (18:00)
--- NOTE | 2019-06-09 18:00 | IPNPDOC ---
Date Seen The patient was seen on 06/09/19. Progress Note SUBJECTIVE: 53 Y female, h/o advanced MS and on chronic Orellana presents with lethargy chills and cloudy urine admitted for recurrent UTI c/w migraine headache and chest pain Reviews of Systems no fever no chills +MELLO +Pleuritic chest pain no abdominal pain no diarrhea OBJECTIVE PHYSICAL EXAMINATION: VITAL SIGNS: Please see below. GENERAL: AA Ox3, obese, lying in the bed HEENT: atraumatic CARDIOVASCULAR: S1 S2 regular no tachy, chest wall tenderness with palpation RESPIRATORY: clear, no wheezing ABDOMINAL: soft BS+ no tender EXTREMITIES:no edema NEUROLOGICAL: non focal PSYCHOLOGICAL: no acute psychosis LABORATORY DATA, IMAGING STUDIES, MICROBIOLOGY: Please see below. DVT prophylaxis ordered?: yes ASSESSMENT AND PLAN: 1. Recurrent UTI with chronic Orellana Her urine culture was positive for pseudomonas and Enterobacter will continue IV meropenem and levaquin and will follow cultures 2. Progressive Multiple sclerosis Continue medications as ordered 3. Migraine headache, will treat symptomatically 4. Seizure disorder Continue Depakote, Kemariamra Lyrica 5. DVT prophylaxis Lovenox VS, I&O, 24H, Fishbone Vital Signs/I&O Vital Signs Date Time Temp Pulse Resp B/P (MAP) Pulse Ox O2 Delivery O2 Flow Rate FiO2 06/09/19 14:00 96.9 87 16 135/87 (103) 93 06/08/19 22:58 Room Air I&O- Last 24 Hours up to 6 AM 06/09/19 06:00 Intake Total 1350 ml Output Total 2750 ml Balance -1400 ml Laboratory Data 24H LABS Laboratory Tests 2 06/09/19 05:13: Nucleated Red Blood Cells % (auto) 0.0, Anion Gap 4L, Glomerular Filtration Rate 49.5L, Blood Urea Nitrogen 19H, Creatinine 1.22, Sodium Level 142, Potassium Level 4.0, Chloride Level 107, Carbon Dioxide Level 31, Calcium Level 8.2L, Magnesium Level 1.2L CBC/BMP Laboratory Tests 06/09/19 05:13 Red Blood Count 3.69 L, Mean Corpuscular Volume 77.0 L, Mean Corpuscular Hemoglobin 24.7 L, Mean Corpuscular Hemoglobin Concent 32.0, Red Cell Distribution Width 15.5 H, Calcium Level 8.2 L Microbiology Microbiology 7/11/19 Blood Culture, Received Pending 06/08/19 Blood Culture - Preliminary, Resulted No growth after 24 hours . All specim... 06/08/19 Urine Culture, Worksheet Pending LUKE DOMINGUEZ MD Jun 09, 2019 18:00
[2019-06-09] MEDS: ENOXAPARIN 40 MG/0.4 ML SYRINGE (J1650) SC SCH (20:39)
[2019-06-09] MEDS: PHENYTOIN ER 100 MG CAP PO SCH (20:40)
[2019-06-09] MEDS: traZODone 50 MG TAB PO SCH (20:42)
[2019-06-09] MEDS: ARIPiprazole 2 MG TAB PO SCH (20:43)
[2019-06-09 21:44] LABS: CK-MB VALUE MASS < 1.0 NG/ML (<3.6); CPK CREATINE PHOSPHOKINASE 23 U/L (26-192); MB/CK RELATIVE INDEX 4.35 (< OR =4); TROPONIN I < 0.02 NG/ML (< 0.10)
[2019-06-09 22:00] VITALS: BP 104/55
[2019-06-10] MEDS: MEROPENEM INJ 1 GM in APPROPRIATE DILUENT 1 EA IV SCH ×3 (03:25→18:36)
[2019-06-10] MEDS: LEVOTHYROXINE 50MCG TABLET (0.05MG) PO SCH (05:25)
[2019-06-10 06:00] VITALS: BP 112/61
[2019-06-10 06:09] LABS: HEMATOCRIT 29.2 % (36.0-47.0); HEMOGLOBIN 9.4 g/dl (12.0-15.5); MEAN CORPUSCULAR HEMOGLOBIN 25.2 pg (27.0-33.0); MEAN CORPUSCULAR HGB CONC 32.2 g/dl (32.0-36.5); MEAN CORPUSCULAR VOLUME 78.3 fl (80.0-96.0); PLATELET COUNT, AUTOMATED 190 10^3/uL (150-450); RED BLOOD COUNT 3.73 10^6/uL (4.00-5.40); WHITE BLOOD COUNT 3.6 10^3/uL (4.0-10.0)
[2019-06-10 06:42] LABS: BLOOD UREA NITROGEN 17 MG/DL (7-18); CALCIUM LEVEL 8.4 MG/DL (8.5-10.1); CARBON DIOXIDE LEVEL 31 MEQ/L (21-32); CHLORIDE LEVEL 108 MEQ/L (98-107); CK-MB VALUE MASS < 1.0 NG/ML (<3.6); CPK CREATINE PHOSPHOKINASE 24 U/L (26-192); CREATININE FOR GFR 1.32 MG/DL (0.55-1.30); GLOMERULAR FILTRATION RATE 45.2 (>51); GLUCOSE, FASTING 74 MG/DL (70-100); MB/CK RELATIVE INDEX 4.17 (< OR =4); POTASSIUM SERUM 3.6 MEQ/L (3.5-5.1); SODIUM LEVEL 143 MEQ/L (136-145); TROPONIN I < 0.02 NG/ML (< 0.10)
--- NOTE | 2019-06-10 06:57 | ECGEPIP ---
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
[2019-06-10] MEDS: PREGABALIN 100 MG CAP (LYRICA) PO SCH ×2 (08:50→21:30)
[2019-06-10] MEDS: FLUCONAZOLE 50MG TABLET PO SCH (08:50)
[2019-06-10] MEDS: POTASSIUM CHLORIDE 10 MEQ SR TABLET PO SCH (08:51)
[2019-06-10] MEDS: tiZANidine 4 MG TAB PO PRN (08:53)
[2019-06-10] MEDS: ATORVASTATIN 20 MG TAB PO SCH (08:53)
[2019-06-10] MEDS: IBUPROFEN 800 MG TAB PO PRN (08:53)
[2019-06-10] MEDS: AMANTADINE 100 MG CAP PO SCH ×2 (08:54→21:29)
[2019-06-10] MEDS: DIVALPROEX 500MG *ER* TAB PO SCH ×2 (08:54→21:28)
[2019-06-10] MEDS: levETIRAcetam 250MG TABLET (KEPPRA) PO SCH ×2 (08:54→22:43)
[2019-06-10] MEDS: hydrOXYzine 50 MG TAB PO SCH ×2 (08:54→21:30)
[2019-06-10] MEDS: DULoxetine 30 MG CAP (CYMBALTA) PO SCH ×2 (08:55→21:28)
[2019-06-10] MEDS: OMEPRAZOLE 20 MG CAP PO SCH ×2 (08:55→21:28)
[2019-06-10] MEDS: clonazePAM 1 MG TAB PO SCH ×2 (08:55→21:30)
[2019-06-10] MEDS: MELOXICAM (MOBIC) 7.5 MG TAB PO SCH (08:55)
[2019-06-10] MEDS: ACYCLOVIR 200 MG CAPSULE PO SCH ×2 (08:56→21:28)
[2019-06-10] MEDS: METOPROLOL SUCC *XL* 25MG TAB (TopROL *XL*) PO SCH (08:56)
[2019-06-10] MEDS: SODIUM CHLORIDE 0.9% INJ 10 ML SYR IV SCH (08:58)
[2019-06-10 09:00] VITALS: BP 142/87
--- NOTE | 2019-06-10 09:27 | IPNPDOC ---
Date Seen The patient was seen on 06/10/19. Progress Note SUBJECTIVE: 53 Y female, h/o advanced MS and on chronic Orellana presents with lethargy chills and cloudy urine admitted for recurrent UTI feels better no events overnight Reviews of Systems no fever no chills mild headache no abdominal pain no diarrhea OBJECTIVE PHYSICAL EXAMINATION: VITAL SIGNS: Please see below. GENERAL: AA Ox3, comfortable, playing iphone in the bed HEENT: atraumatic CARDIOVASCULAR: S1 S2 regular no tachy, chest wall tenderness with palpation RESPIRATORY: clear, no wheezing ABDOMINAL: soft BS+ no tender EXTREMITIES:no edema NEUROLOGICAL: non focal PSYCHOLOGICAL: no acute psychosis LABORATORY DATA, IMAGING STUDIES, MICROBIOLOGY: Please see below. DVT prophylaxis ordered?: yes ASSESSMENT AND PLAN: 1. Recurrent UTI with chronic Orellana her urine culture came back positive for Enterobacter and staph aureus will continue IV meropenem and d/c levaquin and will follow cultures 2. Progressive Multiple sclerosis Continue medications as ordered 3. Migraine headache, will treat symptomatically resolved 4. Seizure disorder Continue Depakote, Keppra, Lyrica 5. ?CARLOS, will check O2 saturation at night 6. DVT prophylaxis [facility]/I&O Vital Signs Date Time Temp Pulse Resp B/P (MAP) Pulse Ox O2 Delivery O2 Flow Rate FiO2 06/10/19 08:56 74 142/87 06/10/19 06:00 96.8 16 94 06/08/19 22:58 Room Air I&O- Last 24 Hours up to 6 AM 06/10/19 06:00 Intake Total 1950 ml Output Total 2700 ml Balance -750 ml Laboratory Data 24H LABS Laboratory Tests 2 06/09/19 21:10: Total Creatine Kinase 23L, Creatine Kinase MB < 1.0, Creatine Kinase MB Relative Index 4.35H, Troponin I < 0.02 06/10/19 05:36: Total Creatine Kinase 24L, Creatine Kinase MB < 1.0, Creatine Kinase MB Relative Index 4.17H, Troponin I < 0.02, Nucleated Red Blood Cells % (auto) 0.0, Anion Gap 4L, Glomerular Filtration Rate 45.2L, Blood Urea Nitrogen 17, Creatinine 1.32H, Sodium Level 143, Potassium Level 3.6, Chloride Level 108H, Carbon Dioxide Level 31, Calcium Level 8.4L CBC/BMP Laboratory Tests 06/10/19 05:36 Red Blood Count 3.73 L, Mean Corpuscular Volume 78.3 L, Mean Corpuscular Hemoglobin 25.2 L, Mean Corpuscular Hemoglobin Concent 32.2, Red Cell Distribution Width 15.2 H, Calcium Level 8.4 L, Total Creatine Kinase 24 L Microbiology Microbiology 06/08/19 Blood Culture - Preliminary, Resulted No growth after 24 hours . All specim... 06/08/19 Blood Culture - Preliminary, Resulted No growth after 24 hours . All specim... 06/08/19 Urine Culture - Preliminary, Resulted Enterobacter Cloacae Complex Staphylococcus Aureus LUKE DOMINGUEZ MD Jun 10, 2019 09:26
[2019-06-10] MEDS: SODIUM CHLORIDE 0.9% INJ 10 ML SYR IV PRN (12:09)
[2019-06-10 12:35] LABS: CK-MB VALUE MASS < 1.0 NG/ML (<3.6); CPK CREATINE PHOSPHOKINASE 23 U/L (26-192); MB/CK RELATIVE INDEX 4.35 (< OR =4); TROPONIN I < 0.02 NG/ML (< 0.10)
[2019-06-10 14:00] VITALS: BP_SYST 104; BP_SYST 115; BP_DIAS 56; BP_DIAS 66
[2019-06-10] MEDS ORDERED: NS 1,000 ML IV ONE (14:00)
[2019-06-10] MEDS: ARIPiprazole 2 MG TAB PO SCH (21:28)
[2019-06-10] MEDS: traZODone 50 MG TAB PO SCH (21:29)
[2019-06-10] MEDS: ENOXAPARIN 40 MG/0.4 ML SYRINGE (J1650) SC SCH (21:30)
[2019-06-10] MEDS: PHENYTOIN ER 100 MG CAP PO SCH (21:30)
[2019-06-10 22:00] VITALS: BP 116/74
[2019-06-11] MEDS: MEROPENEM INJ 1 GM in APPROPRIATE DILUENT 1 EA IV SCH ×3 (03:34→17:59)
[2019-06-11 06:00] VITALS: BP 163/83
[2019-06-11] MEDS: LEVOTHYROXINE 50MCG TABLET (0.05MG) PO SCH (06:18)
[2019-06-11 07:19] LABS: HEMATOCRIT 30.5 % (36.0-47.0); HEMOGLOBIN 9.8 g/dl (12.0-15.5); MEAN CORPUSCULAR HEMOGLOBIN 25.3 pg (27.0-33.0); MEAN CORPUSCULAR HGB CONC 32.1 g/dl (32.0-36.5); MEAN CORPUSCULAR VOLUME 78.6 fl (80.0-96.0); PLATELET COUNT, AUTOMATED 190 10^3/uL (150-450); RED BLOOD COUNT 3.88 10^6/uL (4.00-5.40); WHITE BLOOD COUNT 3.4 10^3/uL (4.0-10.0)
[2019-06-11 07:41] LABS: CALCIUM LEVEL 8.5 MG/DL (8.5-10.1); CREATININE FOR GFR 1.2 MG/DL (0.55-1.30); GLOMERULAR FILTRATION RATE 50.4 (>51); POTASSIUM SERUM 3.6 MEQ/L (3.5-5.1)
[2019-06-11] MEDS: SODIUM CHLORIDE 0.9% INJ 10 ML SYR IV SCH (09:00)
[2019-06-11] MEDS: ATORVASTATIN 20 MG TAB PO SCH (10:06)
[2019-06-11] MEDS: PREGABALIN 100 MG CAP (LYRICA) PO SCH ×2 (10:06→20:18)
[2019-06-11] MEDS: ACYCLOVIR 200 MG CAPSULE PO SCH ×2 (10:06→20:19)
[2019-06-11] MEDS: clonazePAM 1 MG TAB PO SCH ×2 (10:07→20:19)
[2019-06-11] MEDS: POTASSIUM CHLORIDE 10 MEQ SR TABLET PO SCH (10:07)
[2019-06-11] MEDS: OMEPRAZOLE 20 MG CAP PO SCH ×2 (10:07→20:17)
[2019-06-11] MEDS: DIVALPROEX 500MG *ER* TAB PO SCH ×2 (10:07→20:19)
[2019-06-11] MEDS: DULoxetine 30 MG CAP (CYMBALTA) PO SCH ×2 (10:08→20:18)
[2019-06-11] MEDS: AMANTADINE 100 MG CAP PO SCH ×2 (10:08→20:19)
[2019-06-11] MEDS: METOPROLOL SUCC *XL* 25MG TAB (TopROL *XL*) PO SCH (10:08)
[2019-06-11] MEDS: hydrOXYzine 50 MG TAB PO SCH ×2 (10:08→20:19)
[2019-06-11] MEDS: DOXYCYCLINE HYCLATE 100 MG TAB PO SCH ×2 (10:08→20:18)
[2019-06-11] MEDS: IBUPROFEN 800 MG TAB PO PRN (10:09)
[2019-06-11] MEDS: levETIRAcetam 250MG TABLET (KEPPRA) PO SCH ×2 (10:13→20:19)
--- NOTE | 2019-06-11 10:48 | IPNPDOC ---
Date Seen The patient was seen on 06/11/19. Progress Note SUBJECTIVE: 53 Y female, h/o advanced MS and on chronic Orellana presents with lethargy chills and cloudy urine admitted for recurrent UTI feels better no events overnight Reviews of Systems no fever no chills no abdominal pain no diarrhea OBJECTIVE PHYSICAL EXAMINATION: VITAL SIGNS: Please see below. GENERAL: AA Ox3, comfortable, at bedside HEENT: atraumatic CARDIOVASCULAR: S1 S2 regular no tachy, chest wall tenderness with palpation RESPIRATORY: clear, no wheezing ABDOMINAL: soft BS+ no tender EXTREMITIES:no edema NEUROLOGICAL: non focal PSYCHOLOGICAL: no acute psychosis LABORATORY DATA, IMAGING STUDIES, MICROBIOLOGY: Please see below. DVT prophylaxis ordered?: yes ASSESSMENT AND PLAN: 1. Recurrent UTI with chronic Orellana her urine culture came back positive for Enterobacter, strep mitis, and MSSA will continue IV meropenem and will add Doxy 2. Progressive Multiple sclerosis Continue medications as ordered Will check brain MRI to rule out possible exacerbation if there are new lesions, may need to consult Neurologist (patient indicates absolutely Not Dr Rosario) 3. Migraine headache, will treat symptomatically resolved 4. Seizure disorder Continue Depakote, Keppra, Lyrica 5. ?CARLOS, will check O2 saturation tonight 6. DVT prophylaxis Lovenox VS, I&O, 24H, Fishbone Vital Signs/I&O Vital Signs Date Time Temp Pulse Resp B/P (MAP) Pulse Ox O2 Delivery O2 Flow Rate FiO2 06/11/19 10:08 80 163/83 06/11/19 06:00 97.0 20 95 06/08/19 22:58 Room Air I&O- Last 24 Hours up to 6 AM 06/11/19 06:00 Intake Total 3670 ml Output Total 2300 ml Balance 1370 ml Laboratory Data 24H LABS Laboratory Tests 2 06/10/19 12:00: Total Creatine Kinase 23L, Creatine Kinase MB < 1.0, Creatine Kinase MB Relative Index 4.35H, Troponin I < 0.02 06/11/19 06:09: Nucleated Red Blood Cells % (auto) 0.0, Anion Gap 6L, Glomerular Filtration Rate 50.4L, Blood Urea Nitrogen 15, Creatinine 1.20, Sodium Level 144, Potassium Level 3.6, Chloride Level 109H, Carbon Dioxide Level 29, Calcium Level 8.5 CBC/BMP Laboratory Tests 06/11/19 06:09 Red Blood Count 3.88 L, Mean Corpuscular Volume 78.6 L, Mean Corpuscular Hemoglobin 25.3 L, Mean Corpuscular Hemoglobin Concent 32.1, Red Cell Distribution Width 15.5 H, Calcium Level 8.5 Microbiology Microbiology 06/08/19 Blood Culture - Preliminary, Resulted No Growth after 48 hours. All Specime... 06/08/19 Blood Culture - Preliminary, Resulted No Growth after 48 hours. All Specime... 06/08/19 Urine Culture - Final, Complete Enterobacter Cloacae Complex Streptococcus Mitis Staphylococcus Aureus LUKE DOMINGUEZ MD Jun 11, 2019 10:48
[2019-06-11] MEDS ORDERED: PROHANCE 279.3MG/ML 5ML VIAL (A9576) As Ordered ONE (11:18)
[2019-06-11] MEDS: MELOXICAM (MOBIC) 7.5 MG TAB PO SCH (12:16)
[2019-06-11] MEDS ORDERED: LORazepam 2 MG/ML VIAL (J2060) IV ONE (13:30)
[2019-06-11 14:00] VITALS: BP 141/82
[2019-06-11] MEDS: ULTRACET TAB PO PRN (18:00)
[2019-06-11] MEDS: PHENYTOIN ER 100 MG CAP PO SCH (20:17)
[2019-06-11] MEDS: ARIPiprazole 2 MG TAB PO SCH (20:18)
[2019-06-11] MEDS: traZODone 50 MG TAB PO SCH (20:19)
[2019-06-11] MEDS: ENOXAPARIN 40 MG/0.4 ML SYRINGE (J1650) SC SCH (20:20)
[2019-06-11 22:00] VITALS: BP 135/82
[2019-06-12] MEDS: MEROPENEM INJ 1 GM in APPROPRIATE DILUENT 1 EA IV SCH ×3 (03:22→18:12)
[2019-06-12] MEDS: LEVOTHYROXINE 50MCG TABLET (0.05MG) PO SCH (05:08)
[2019-06-12 06:00] VITALS: BP 145/86
[2019-06-12] MEDS ORDERED: LORazepam 2 MG/ML VIAL (J2060) IV ONE (06:00)
[2019-06-12 06:54] LABS: HEMATOCRIT 30.5 % (36.0-47.0); HEMOGLOBIN 9.8 g/dl (12.0-15.5); MEAN CORPUSCULAR HEMOGLOBIN 24.9 pg (27.0-33.0); MEAN CORPUSCULAR HGB CONC 32.1 g/dl (32.0-36.5); MEAN CORPUSCULAR VOLUME 77.6 fl (80.0-96.0); PLATELET COUNT, AUTOMATED 204 10^3/uL (150-450); RED BLOOD COUNT 3.93 10^6/uL (4.00-5.40); WHITE BLOOD COUNT 3.2 10^3/uL (4.0-10.0)
[2019-06-12 07:14] LABS: CALCIUM LEVEL 8.4 MG/DL (8.5-10.1); CREATININE FOR GFR 1.18 MG/DL (0.55-1.30); GLOMERULAR FILTRATION RATE 51.4 (>51); POTASSIUM SERUM 3.5 MEQ/L (3.5-5.1)
[2019-06-12] MEDS: ATORVASTATIN 20 MG TAB PO SCH (08:07)
[2019-06-12] MEDS: DIVALPROEX 500MG *ER* TAB PO SCH ×2 (08:07→20:01)
[2019-06-12] MEDS: MELOXICAM (MOBIC) 7.5 MG TAB PO SCH (08:07)
[2019-06-12] MEDS: hydrOXYzine 50 MG TAB PO SCH ×2 (08:07→20:01)
[2019-06-12] MEDS: DULoxetine 30 MG CAP (CYMBALTA) PO SCH ×2 (08:08→20:02)
[2019-06-12] MEDS: ACYCLOVIR 200 MG CAPSULE PO SCH ×2 (08:08→20:02)
[2019-06-12] MEDS: POTASSIUM CHLORIDE 10 MEQ SR TABLET PO SCH (08:08)
[2019-06-12] MEDS: levETIRAcetam 250MG TABLET (KEPPRA) PO SCH ×2 (08:08→20:02)
[2019-06-12] MEDS: clonazePAM 1 MG TAB PO SCH ×2 (08:08→20:01)
[2019-06-12] MEDS: METOPROLOL SUCC *XL* 25MG TAB (TopROL *XL*) PO SCH (08:09)
[2019-06-12] MEDS: AMANTADINE 100 MG CAP PO SCH ×2 (08:09→20:02)
[2019-06-12] MEDS: OMEPRAZOLE 20 MG CAP PO SCH ×2 (08:09→20:03)
[2019-06-12] MEDS: DOXYCYCLINE HYCLATE 100 MG TAB PO SCH ×2 (08:09→20:02)
[2019-06-12] MEDS: PREGABALIN 100 MG CAP (LYRICA) PO SCH ×2 (08:09→20:03)
[2019-06-12] MEDS: SODIUM CHLORIDE 0.9% INJ 10 ML SYR IV SCH (08:10)
--- NOTE | 2019-06-12 08:43 | IPN ---
DATE: 06/12/2019 PRIMARY CARE PROVIDER: Dr. Sujit Olivares is seen while rounding for the hospitalist. She was admitted with polymicrobial urinary tract infection (UTI) leading to exacerbation of multiple sclerosis. She has a history of seizure disorder, migraine headaches, question of obstructive sleep apnea with overnight nocturnal oximetry that is pending. Overall, she feels better. She is getting stronger with treatment of the UTI. She has a MRI of the brain that is being done due to increasing leg weakness. PHYSICAL EXAMINATION: Afebrile, 148/86. GENERAL APPEARANCE: Lethargic, slow to wake up. She is answering questions appropriately. Speech is a bit dysarthric. LUNGS: Clear. HEART: Regular rhythm. ABDOMEN: Soft, nontender. EXTREMITIES: Lower extremities are weak symmetrically. Upper extremity strength is better. LABORATORIES: White count 3.2, hemoglobin 9.8, platelets 214. Sodium 144, potassium 4.5, BUN 14, creatinine 1.0, glucose 76. IMPRESSION: 1. Polymicrobial urinary tract infection (UTI) on meropenem, day 4, and doxycycline day 2. Clinically, she is responding to this. 2. Multiple sclerosis with increasing leg weakness. MRI of the brain has been ordered. Once this is done we will consider having neurology see her. 3. Question of obstructive sleep apnea. Nocturnal oximetry pending. 4. Seizure disorder. Valproic acid level was low on admission, we will repeat this. 5. Mild leukopenia. We will get a differential tomorrow.
[2019-06-12] MEDS: ULTRACET TAB PO PRN ×2 (11:33→15:26)
[2019-06-12] MEDS ORDERED: PROHANCE 279.3MG/ML 5ML VIAL (A9576) As Ordered ONE (12:20)
[2019-06-12] MEDS: SODIUM CHLORIDE 0.9% INJ 10 ML SYR IV PRN (12:58)
--- NOTE | 2019-06-12 13:49 | REP ---
MRI BRAIN WITHOUT AND WITH INTRAVENOUS GADOLINIUM: HISTORY: Multiple sclerosis. COMPARISON STUDY: November 01, 2018 and June 29, 2018. TECHNIQUE: Axial, coronal, and sagittal imaging planes are utilized for T1- and T2-weighted scans. Sequences include spin echo, fast spin echo, FLAIR, and diffusion weighted sequences. The contrast enhancement dose is 9 mL of intravenous ProHance. MRI FINDINGS: No bony calvarial lesion is seen. There is no MR evidence of significant paranasal sinus disease. No intraorbital abnormality is seen. There is some generalized volume loss again noted. Diffusion weighted scan show no evidence of restricted diffusion to suggest acute ischemia. There is no evidence of intracranial hemorrhage. No mass, extra-axial fluid collection, or midline shift. Inversion-recovery and T2-weighted scans again demonstrate multiple foci of T2 hyperintensity in the periventricular and subcortical white matter of the supratentorial brain. These are unchanged in size and number. No abnormal contrast enhancement is seen within these lesions or elsewhere on postcontrast T1 axial and coronal scans. IMPRESSION: Findings are unchanged. No abnormal gadolinium enhancement is seen. Multiple foci of T2 hyperintensity are seen in the supratentorial brain involving subcortical and periventricular white matter. No change from comparison study November 01, 2018 and June 29, 2018. Electronically Signed by Demario Villa MD 06/12/2019 02:31 P
[2019-06-12 14:00] VITALS: BP 153/95
[2019-06-12] MEDS: PHENYTOIN ER 100 MG CAP PO SCH (20:01)
[2019-06-12] MEDS: traZODone 50 MG TAB PO SCH (20:02)
[2019-06-12] MEDS: ARIPiprazole 2 MG TAB PO SCH (20:02)
[2019-06-12] MEDS: ENOXAPARIN 40 MG/0.4 ML SYRINGE (J1650) SC SCH (20:03)
[2019-06-12 22:00] VITALS: BP 162/88
[2019-06-13] MEDS: MEROPENEM INJ 1 GM in APPROPRIATE DILUENT 1 EA IV SCH ×3 (03:03→18:19)
[2019-06-13] MEDS: ULTRACET TAB PO PRN ×4 (03:04→18:28)
[2019-06-13] MEDS: LEVOTHYROXINE 50MCG TABLET (0.05MG) PO SCH (05:47)
[2019-06-13 06:00] VITALS: BP 139/87
[2019-06-13 06:12] LABS: BASO % 0.5 % (0.0-1.0); EOS # 0.4 10^3/uL (0.0-0.50); HEMOGLOBIN 9.7 g/dl (12.0-15.5); LYMPH # 0.8 10^3/uL (1.5-4.5); MEAN CORPUSCULAR HEMOGLOBIN 25.3 pg (27.0-33.0); MEAN CORPUSCULAR HGB CONC 33.4 g/dl (32.0-36.5); MEAN CORPUSCULAR VOLUME 75.7 fl (80.0-96.0); MONO # 0.6 10^3/uL (0.0-0.8); MONO % 14.8 % (0.0-5.0); NEUTROPHILS % 52.6 % (36.0-66.0); PLATELET COUNT, AUTOMATED 219 10^3/uL (150-450); RED BLOOD COUNT 3.83 10^6/uL (4.00-5.40); WHITE BLOOD COUNT 3.7 10^3/uL (4.0-10.0)
[2019-06-13 06:41] LABS: CALCIUM LEVEL 8.3 MG/DL (8.5-10.1); CREATININE FOR GFR 1.1 MG/DL (0.55-1.30); GLOMERULAR FILTRATION RATE 55.7 (>51); POTASSIUM SERUM 3.4 MEQ/L (3.5-5.1); VALPROIC ACID (DEPAKOTE) 9.2 UG/ML (50.0-100.0)
[2019-06-13] MEDS: DULoxetine 30 MG CAP (CYMBALTA) PO SCH ×2 (09:15→20:35)
[2019-06-13] MEDS: MELOXICAM (MOBIC) 7.5 MG TAB PO SCH (09:15)
[2019-06-13] MEDS: AMANTADINE 100 MG CAP PO SCH ×2 (09:15→20:36)
[2019-06-13] MEDS: clonazePAM 1 MG TAB PO SCH ×2 (09:16→20:35)
[2019-06-13] MEDS: DOXYCYCLINE HYCLATE 100 MG TAB PO SCH ×2 (09:16→20:36)
[2019-06-13] MEDS: PREGABALIN 100 MG CAP (LYRICA) PO SCH ×2 (09:17→20:36)
[2019-06-13] MEDS: hydrOXYzine 50 MG TAB PO SCH ×2 (09:17→20:36)
[2019-06-13] MEDS: DIVALPROEX 500MG *ER* TAB PO SCH ×2 (09:17→20:36)
[2019-06-13] MEDS: ACYCLOVIR 200 MG CAPSULE PO SCH ×2 (09:17→20:36)
[2019-06-13] MEDS: ATORVASTATIN 20 MG TAB PO SCH (09:17)
--- NOTE | 2019-06-13 09:17 | IPN ---
DATE: 06/13/2019 Elise is seen on [address] [facility]. She has a polymicrobial urinary tract infection (UTI). Clinically, she responded well to her current antibiotic regimen. Urine is clear and she is starting to feel a little stronger. She had an MRI of the brain that showed no new multiple sclerosis lesions (MS) lesions. I spoke at length with the patient and her , Joey. He was wondering whether she needs some empiric steroids for exacerbation of her MS despite the lack of new lesions on the MRI scan. PHYSICAL EXAMINATION: Afebrile. Vital signs stable: Blood pressure 139/87. General Appearance: Alert. Conversant. Dysarthric speech which I think is her baseline. Lungs clear. Heart regular rhythm. Abdomen soft, nontender. No costovertebral angle (CVA) tenderness. Muscular weakness in both lower extremities. LABS: Potassium 3.4. CBC is unremarkable/ unchanged. Depakote level is only 9.2. I did confirm that she is on her correct home dose of Depakote. Her level is a little low at 34 when she came in but despite twice a day dosing since admission, her level is only 9.2 She is not having any seizure activity. IMPRESSION: 1. Polymicrobial urinary tract infection: She is on day #5 of meropenem, day #3 of doxycycline, clinically responding to this. Urine is clear. Strength is slowly improving. 2. Multiple sclerosis: Increase in leg weakness. MRI of the brain does not show any new lesions. is wondering whether she should have empiric steroids. This is a good question, patient says she feels like she does when she is having an exacerbation. However, a dose of steroid would reduce her immune response to urinary tract infections. I called the [facility] neurology clinic to speak with her neurologist. I left a message with a cell phone number to call back and we will discuss the situation. 3. Seizure disorder: Valproic acid level is lower than it was when she came in despite twice a day dosing. She is not having any active seizures. I will repeat this level in a few days.
[2019-06-13] MEDS: POTASSIUM CHLORIDE 10 MEQ SR TABLET PO SCH (09:18)
[2019-06-13] MEDS: OMEPRAZOLE 20 MG CAP PO SCH ×2 (09:18→20:36)
[2019-06-13] MEDS: levETIRAcetam 250MG TABLET (KEPPRA) PO SCH ×2 (09:19→20:35)
[2019-06-13] MEDS: METOPROLOL SUCC *XL* 25MG TAB (TopROL *XL*) PO SCH (09:21)
[2019-06-13] MEDS: SODIUM CHLORIDE 0.9% INJ 10 ML SYR IV SCH (09:22)
[2019-06-13 14:00] VITALS: BP 129/83
--- NOTE | 2019-06-13 16:35 | NOCOX ---
DATE OF PROCEDURE: 06/11/2019 ORDERED BY: Dr. Alatorre No indication of what actually the study was performed on, regarding supplemental oxygen or room air. Mean oxygen saturation 94.8%. Minimum reliably recorded oxygen > 90%. Overall only minimal variability and no significant desaturations are identified. IMPRESSION: Acceptable oxygen saturation the night of the recording on an unknown oxygen flow. MTDD
[2019-06-13] MEDS: ARIPiprazole 2 MG TAB PO SCH (20:35)
[2019-06-13] MEDS: traZODone 50 MG TAB PO SCH (20:35)
[2019-06-13] MEDS: ENOXAPARIN 40 MG/0.4 ML SYRINGE (J1650) SC SCH (20:37)
[2019-06-13] MEDS: PHENYTOIN ER 100 MG CAP PO SCH (20:37)
[2019-06-13] MEDS: tiZANidine 4 MG TAB PO PRN (20:40)
[2019-06-13 22:00] VITALS: BP 134/81
[2019-06-14] MEDS: MEROPENEM INJ 1 GM in APPROPRIATE DILUENT 1 EA IV SCH ×3 (02:29→18:52)
[2019-06-14] MEDS: SODIUM CHLORIDE 0.9% INJ 10 ML SYR IV PRN (03:08)
[2019-06-14 06:00] VITALS: BP 127/83
[2019-06-14] MEDS: LEVOTHYROXINE 50MCG TABLET (0.05MG) PO SCH (06:02)
[2019-06-14] MEDS: ULTRACET TAB PO PRN ×4 (06:04→20:46)
[2019-06-14 07:04] LABS: HEMATOCRIT 30.5 % (36.0-47.0); HEMOGLOBIN 9.9 g/dl (12.0-15.5); MEAN CORPUSCULAR HEMOGLOBIN 25.1 pg (27.0-33.0); MEAN CORPUSCULAR HGB CONC 32.5 g/dl (32.0-36.5); MEAN CORPUSCULAR VOLUME 77.4 fl (80.0-96.0); PLATELET COUNT, AUTOMATED 229 10^3/uL (150-450); RED BLOOD COUNT 3.94 10^6/uL (4.00-5.40); WHITE BLOOD COUNT 3.9 10^3/uL (4.0-10.0)
[2019-06-14 07:24] LABS: CALCIUM LEVEL 8.4 MG/DL (8.5-10.1); CREATININE FOR GFR 1.17 MG/DL (0.55-1.30); GLOMERULAR FILTRATION RATE 51.9 (>51); POTASSIUM SERUM 3.7 MEQ/L (3.5-5.1)
--- NOTE | 2019-06-14 08:45 | IPN ---
DATE: 06/14/2019 I never heard back from the [facility] yesterday concerning a question about bolus of steroids. My opinion is that with no changes on her brain MRI, to suggests any ongoing structural changes and the patient being treated for an active infection, I would not be inclined to give her dose of steroids. The patient does say her legs feel "twitchy". When she tries to stand, it sounds like she is getting some clonus. She used to be on baclofen as an outpatient. This was discontinued but she says she does not walk as well without and would like to resume baclofen. She previously was taking 20 mg four times a day but has been off this for about a month. She denies any fever, chills, flank pain. PHYSICAL EXAMINATION: Afebrile, blood pressure 127/83. Lying in bed. No stress. HEENT: Unremarkable. Speech seems less dysarthric today. LUNGS: Clear. HEART: Regular rhythm. ABDOMEN: Soft, nontender. No costovertebral angle (CVA) tenderness. EXTREMITIES: There is some spasticity of the lower extremities. LABS: Electrolytes unremarkable. CBC shows a white count of 3.9, hemoglobin 9.9, platelets 229. IMPRESSION: 1. Polymicrobial urinary tract infection: Day 6 of meropenem, day 4 of doxycycline. Slow but steady improvement with the prescribed therapy. 2. Multiple sclerosis: Again, I have not heard back from her neurologist at the [facility]. Unless they expressly suggest this I would not give her high dose bolus of steroids. I don' think she is having a significant exacerbation of her MS. I will restart her baclofen substituting this for the tizanidine she is currently receiving. 3. Seizure disorder: As noted previously, her valproic acid level actually fell in the hospital. I am repeating this before adjusting the dose. 4. ? Obstructive sleep apnea (CARLOS): She had a pulse oxymetry that was normal. Mean oxygen saturation 94.8%.
[2019-06-14] MEDS: SODIUM CHLORIDE 0.9% INJ 10 ML SYR IV SCH (09:00)
[2019-06-14] MEDS: POTASSIUM CHLORIDE 10 MEQ SR TABLET PO SCH (09:27)
[2019-06-14] MEDS: OMEPRAZOLE 20 MG CAP PO SCH ×2 (09:27→20:38)
[2019-06-14] MEDS: hydrOXYzine 50 MG TAB PO SCH ×2 (09:27→20:38)
[2019-06-14] MEDS: ACYCLOVIR 200 MG CAPSULE PO SCH ×2 (09:28→20:38)
[2019-06-14] MEDS: MELOXICAM (MOBIC) 7.5 MG TAB PO SCH (09:28)
[2019-06-14] MEDS: BACLOFEN 10 MG TAB PO SCH ×3 (09:28→20:38)
[2019-06-14] MEDS: levETIRAcetam 250MG TABLET (KEPPRA) PO SCH ×2 (09:28→20:39)
[2019-06-14] MEDS: PREGABALIN 100 MG CAP (LYRICA) PO SCH ×2 (09:28→20:39)
[2019-06-14] MEDS: METOPROLOL SUCC *XL* 25MG TAB (TopROL *XL*) PO SCH (09:28)
[2019-06-14] MEDS: AMANTADINE 100 MG CAP PO SCH ×2 (09:28→20:40)
[2019-06-14] MEDS: clonazePAM 1 MG TAB PO SCH ×2 (09:29→20:38)
[2019-06-14] MEDS: ATORVASTATIN 20 MG TAB PO SCH (09:29)
[2019-06-14] MEDS: DIVALPROEX 500MG *ER* TAB PO SCH ×2 (09:29→20:39)
[2019-06-14] MEDS: DULoxetine 30 MG CAP (CYMBALTA) PO SCH ×2 (09:29→20:39)
[2019-06-14] MEDS: DOXYCYCLINE HYCLATE 100 MG TAB PO SCH ×2 (09:29→20:38)
[2019-06-14 14:00] VITALS: BP 137/89
[2019-06-14] MEDS: IBUPROFEN 800 MG TAB PO PRN (18:52)
[2019-06-14] MEDS: traZODone 50 MG TAB PO SCH (20:38)
[2019-06-14] MEDS: ARIPiprazole 2 MG TAB PO SCH (20:38)
[2019-06-14] MEDS: PHENYTOIN ER 100 MG CAP PO SCH (20:39)
[2019-06-14] MEDS: ENOXAPARIN 40 MG/0.4 ML SYRINGE (J1650) SC SCH (20:40)
[2019-06-14 22:00] VITALS: BP_SYST 125; BP_SYST 180; BP_DIAS 102; BP_DIAS 60
[2019-06-15] MEDS: ULTRACET TAB PO PRN ×5 (01:27→18:15)
[2019-06-15] MEDS: MEROPENEM INJ 1 GM in APPROPRIATE DILUENT 1 EA IV SCH (02:08)
[2019-06-15] MEDS: LEVOTHYROXINE 50MCG TABLET (0.05MG) PO SCH (05:51)
[2019-06-15] MEDS: LACTULOSE 20 GM/30 ML SYRUP UD PO PRN (05:51)
[2019-06-15 06:00] VITALS: BP 176/98
[2019-06-15 06:43] LABS: HEMATOCRIT 31.4 % (36.0-47.0); HEMOGLOBIN 10.3 g/dl (12.0-15.5); MEAN CORPUSCULAR HEMOGLOBIN 25.1 pg (27.0-33.0); MEAN CORPUSCULAR HGB CONC 32.8 g/dl (32.0-36.5); MEAN CORPUSCULAR VOLUME 76.6 fl (80.0-96.0); PLATELET COUNT, AUTOMATED 236 10^3/uL (150-450); WHITE BLOOD COUNT 3.9 10^3/uL (4.0-10.0)
[2019-06-15 07:00] LABS: CALCIUM LEVEL 8.4 MG/DL (8.5-10.1); CREATININE FOR GFR 1.19 MG/DL (0.55-1.30); GLOMERULAR FILTRATION RATE 50.9 (>51); POTASSIUM SERUM 3.7 MEQ/L (3.5-5.1)
[2019-06-15] MEDS: SODIUM CHLORIDE 0.9% INJ 10 ML SYR IV SCH (09:12)
[2019-06-15] MEDS: PREGABALIN 100 MG CAP (LYRICA) PO SCH ×2 (09:12→20:17)
[2019-06-15] MEDS: clonazePAM 1 MG TAB PO SCH ×2 (09:13→20:18)
[2019-06-15] MEDS: hydrOXYzine 50 MG TAB PO SCH ×2 (09:14→20:18)
[2019-06-15] MEDS: ACYCLOVIR 200 MG CAPSULE PO SCH ×2 (09:14→20:18)
[2019-06-15] MEDS: MELOXICAM (MOBIC) 7.5 MG TAB PO SCH (09:14)
[2019-06-15] MEDS: OMEPRAZOLE 20 MG CAP PO SCH ×2 (09:15→20:17)
[2019-06-15] MEDS: DIVALPROEX 500MG *ER* TAB PO SCH ×2 (09:15→20:18)
[2019-06-15] MEDS: ATORVASTATIN 20 MG TAB PO SCH (09:16)
[2019-06-15] MEDS: AMANTADINE 100 MG CAP PO SCH ×2 (09:17→20:18)
[2019-06-15] MEDS: BACLOFEN 10 MG TAB PO SCH ×3 (09:17→20:17)
[2019-06-15] MEDS: DULoxetine 30 MG CAP (CYMBALTA) PO SCH ×2 (09:17→20:18)
[2019-06-15] MEDS: levETIRAcetam 250MG TABLET (KEPPRA) PO SCH ×2 (09:18→20:18)
[2019-06-15] MEDS: DOXYCYCLINE HYCLATE 100 MG TAB PO SCH (09:18)
[2019-06-15] MEDS: POTASSIUM CHLORIDE 10 MEQ SR TABLET PO SCH (09:19)
[2019-06-15] MEDS: METOPROLOL SUCC *XL* 25MG TAB (TopROL *XL*) PO SCH (09:57)
--- NOTE | 2019-06-15 11:01 | IPN ---
DATE: 06/15/2019 Elise continues to feel better on a daily basis. Her neurologist from [facility] called yesterday. We spent quite a bit of time discussing her case. Agrees that she does not really need pulse dose steroids particularly in face of inactive infection. PHYSICAL EXAMINATION: 176/98, pulse 77, respiratory rate 18, 92% oxygen saturation. Blood pressure varies between 120/80-180/102. General appearance: Speech is the same as yesterday. Lungs: Clear. Heart: Regular rate and rhythm. Abdomen: Soft. Suprapubic catheter present. Both legs have some spasticity and weakness. IMPRESSION: 1. Polymicrobial urinary tract infection. Discontinuing the IV antibiotics today. Start her on oral antibiotic. It looks like quinolone will be the best choice. So will start her on some Levaquin 250 mg by mouth daily. 2. Multiple sclerosis (MS). Continue current regimen. No indication for pulse dose steroids. 4. Normal nocturnal oximetry. 5. Seizure disorder. Valproic acid level pending tomorrow. She is stable for transfer to subacute rehab at this point.
[2019-06-15] MEDS: LevoFLOXacin 250 MG TABLET PO SCH (11:43)
[2019-06-15 14:00] VITALS: BP 131/100
[2019-06-15] MEDS: PHENYTOIN ER 100 MG CAP PO SCH (20:17)
[2019-06-15] MEDS: traZODone 50 MG TAB PO SCH (20:18)
[2019-06-15] MEDS: ARIPiprazole 2 MG TAB PO SCH (20:18)
[2019-06-15] MEDS: ENOXAPARIN 40 MG/0.4 ML SYRINGE (J1650) SC SCH (20:19)
[2019-06-15 22:08] VITALS: BP 158/84
[2019-06-16] MEDS: LEVOTHYROXINE 50MCG TABLET (0.05MG) PO SCH (05:14)
[2019-06-16] MEDS: LevoFLOXacin 250 MG TABLET PO SCH (05:14)
[2019-06-16] MEDS: ULTRACET TAB PO PRN ×4 (05:15→20:57)
[2019-06-16 05:41] LABS: HEMOGLOBIN 9.4 g/dl (12.0-15.5); MEAN CORPUSCULAR HEMOGLOBIN 24.2 pg (27.0-33.0); MEAN CORPUSCULAR HGB CONC 32.4 g/dl (32.0-36.5); MEAN CORPUSCULAR VOLUME 74.6 fl (80.0-96.0); PLATELET COUNT, AUTOMATED 217 10^3/uL (150-450); RED BLOOD COUNT 3.89 10^6/uL (4.00-5.40); WHITE BLOOD COUNT 4.6 10^3/uL (4.0-10.0)
[2019-06-16 06:00] VITALS: BP 137/82
[2019-06-16 06:06] LABS: CALCIUM LEVEL 8.1 MG/DL (8.5-10.1); CREATININE FOR GFR 1.08 MG/DL (0.55-1.30); GLOMERULAR FILTRATION RATE 56.9 (>51); POTASSIUM SERUM 3.9 MEQ/L (3.5-5.1)
[2019-06-16] MEDS: OMEPRAZOLE 20 MG CAP PO SCH ×2 (08:23→20:57)
[2019-06-16] MEDS: PREGABALIN 100 MG CAP (LYRICA) PO SCH ×2 (08:23→20:58)
[2019-06-16] MEDS: hydrOXYzine 50 MG TAB PO SCH ×2 (08:24→20:46)
[2019-06-16] MEDS: DIVALPROEX 500MG *ER* TAB PO SCH ×2 (08:24→20:47)
[2019-06-16] MEDS: POTASSIUM CHLORIDE 10 MEQ SR TABLET PO SCH (08:24)
[2019-06-16] MEDS: DULoxetine 30 MG CAP (CYMBALTA) PO SCH ×2 (08:24→20:47)
[2019-06-16] MEDS: clonazePAM 1 MG TAB PO SCH ×2 (08:24→20:47)
[2019-06-16] MEDS: BACLOFEN 10 MG TAB PO SCH ×3 (08:25→20:48)
[2019-06-16] MEDS: AMANTADINE 100 MG CAP PO SCH ×2 (08:25→20:47)
[2019-06-16] MEDS: ACYCLOVIR 200 MG CAPSULE PO SCH ×2 (08:25→20:47)
[2019-06-16] MEDS: MELOXICAM (MOBIC) 7.5 MG TAB PO SCH (08:25)
[2019-06-16] MEDS: ATORVASTATIN 20 MG TAB PO SCH (08:25)
[2019-06-16] MEDS: levETIRAcetam 250MG TABLET (KEPPRA) PO SCH ×2 (08:25→20:57)
[2019-06-16] MEDS: METOPROLOL SUCC *XL* 25MG TAB (TopROL *XL*) PO SCH (08:26)
[2019-06-16] MEDS: SODIUM CHLORIDE 0.9% INJ 10 ML SYR IV SCH (08:26)
[2019-06-16] MEDS ORDERED: LEVO250T12 PO (12:57)
[2019-06-16] MEDS ORDERED: BACL10TA2 PO (12:57)
--- NOTE | 2019-06-16 15:58 | DSES ---
DATE OF ADMISSION: 06/08/2019 DATE OF DISCHARGE: PRIMARY CARE PROVIDER: Dr. Sujit Momin PRINCIPAL DIAGNOSIS: Polymicrobial urinary tract infection (UTI). SECONDARY DIAGNOSES: 1. Multiple sclerosis. 2. Seizure disorder. HISTORY: Elise Yang is admitted with generalized weakness, found to have polymicrobial urinary tract infection. Details of the history and physical as per admission. The patient was admitted to a medical bed. She was treated with intravenous antibiotic with meropenem 1 gram IV every 8 hours, oral doxycycline 100 mg twice a day, as well as Levaquin 250 mg daily. She had clinical response to this. I switched her regimen over to Levaquin 250 mg daily 2 days ago and she tolerated this well. She had resolution of her fever and no leukocytosis. Her MS was worse during her illness. I did speak with her neurologist at [facility] and he did not advise pulse steroids in the context of this infection and I agreed with that assessment. She has some spasticity of her lower extremities. She had previously been on Baclofen and that was changed to tizanidine, which does not work as well for her and she was put back on Baclofen 10 mg three times a day, I have increased the dose to 20 mg three times a day today with good results. On the day of dictation, she is resting comfortably. She has passed her home safety evaluation. Her blood pressure is 137/80, pulse 70, respiratory rate 16, 94% oxygen saturation. She has speech, but better than it was at the beginning of her hospitalization. Lungs clear. Heart with regular rhythm. Abdomen is soft and nontender. Spasticity of the lower extremities. SIGNIFICANT LABORATORIES: White count is 4.6, hemoglobin 9.4, platelets 270. Sodium 141, potassium 3.9, BUN 22, creatinine 1.0, glucose 73. Her valproic acid level is low, it is 14.4, it was 34.5 on admission. She has not had any overt seizure activity. I am going to defer to her neurologist for adjusting the dose of her medication. MEDICATIONS: Will continue to be: - acyclovir 40 mg twice a day - Ventolin inhaler - amantadine 100 mg three times a day - aripiprazole 2 mg at night - atorvastatin 40 mg daily - clonazepam 1 mg twice a day - Depakote ER 500 mg twice a day - duloxetine 60 mg twice a day - fluconazole when needed when on antibiotic - hydroxyzine 50 mg twice a day - Lactulose 30 mL by mouth daily as needed for constipation - Keppra 500 mg twice a day - levothyroxine 50 mcg daily - meloxicam 15 mg daily - metoprolol succinate 25 mg daily - Asmanex one inhalation at bedtime - Nystatin cream as needed - omeprazole 40 mg daily - Dilantin 500 mg at night - potassium chloride 10 mEq daily - Lyrica 300 mg twice a day - promethazine 25 mg tablet every 4 hours as needed for nausea - Senna as needed - trazodone 150 mg at night Tizanidine has been discontinued in favor of Baclofen 20 mg three times a day. She is being discharged on Levaquin 250 mg daily for 7 days.
[2019-06-16] MEDS: ARIPiprazole 2 MG TAB PO SCH (20:47)
[2019-06-16] MEDS: ENOXAPARIN 40 MG/0.4 ML SYRINGE (J1650) SC SCH (20:48)
[2019-06-16] MEDS: traZODone 50 MG TAB PO SCH (20:57)
[2019-06-16] MEDS: PHENYTOIN ER 100 MG CAP PO SCH (20:58)
[2019-06-16 22:00] VITALS: BP_SYST 132; BP_SYST 163; BP_DIAS 82; BP_DIAS 93
[2019-06-16 23:20] VITALS: BP 171/86
--- NOTE | 2019-06-17 00:57 | REPVR ---
EXAM: CT Head Without Contrast EXAM DATE/TIME: 06/17/2019 12:25 AM CLINICAL HISTORY: 53 years old, female; Pain; Headache; Additional info: Fall TECHNIQUE: Imaging protocol: Computed tomography images of the head without contrast. Radiation optimization: All CT scans at this facility use at least one of these dose optimization techniques: automated exposure control; mA and/or kV adjustment per patient size (includes targeted exams where dose is matched to clinical indication); or iterative reconstruction. COMPARISON: CT Head without contrast 10/30/2018 10:06 AM FINDINGS: Brain: Subtle, patchy areas of hypoattenuation in the periventricular and subcortical white matter, nonspecific but suggestive of mild chronic small vessel ischemic disease. No CT evidence of acute intracranial hemorrhage or acute territorial infarction. No significant mass effect or midline shift. Basal cisterns patent. Ventricles: Prominence of the cortical sulci, cisterns and ventricular system, consistent with cerebral and cerebellar volume loss. Bones/joints: No acute osseous abnormality. Sinuses: Grossly unremarkable. Mastoid air cells: Grossly unremarkable. Soft tissues: Grossly unremarkable. IMPRESSION: 1. No CT evidence of acute intracranial pathology. 2. Additional findings, as above. Electronically signed by: Tobi Dunn On 06/17/2019 00:56:48 AM
[2019-06-17 06:00] VITALS: BP 134/82
[2019-06-17] MEDS: LevoFLOXacin 250 MG TABLET PO SCH (06:01)
[2019-06-17] MEDS: LEVOTHYROXINE 50MCG TABLET (0.05MG) PO SCH (06:01)
--- NOTE | 2019-06-17 08:13 | IPN ---
DATE OF SERVICE: 06/17/2019 Apparently, Elise fell last night. I found out about this from the nurse rounding. She was not signed out. Per the nurse, she was getting a little bit confused and lethargic and fell to her knees. She had a head CT done that did not show any acute findings. I had increased her baclofen yesterday for her leg spasms, which I think probably contributed to this. On examination today, she seems at her baseline mental status to me. She is moving her arms and legs equally. Lungs clear. Heart: Regular rate and rhythm. Abdomen: Soft, nontender. She is still spastic in her lower extremities. IMPRESSION: Fall. Suspect from sedation from the baclofen. I will reduce the dose back to 10 mg three times a day. I am getting complete blood count (CBC) and a basic metabolic profile (BMP). I still hope that she will be able to be discharged today. Will wait to see how her feels when he arrives.
[2019-06-17 08:26] LABS: HEMATOCRIT 31.6 % (36.0-47.0); HEMOGLOBIN 10.3 g/dl (12.0-15.5); MEAN CORPUSCULAR HEMOGLOBIN 24.9 pg (27.0-33.0); MEAN CORPUSCULAR HGB CONC 32.6 g/dl (32.0-36.5); MEAN CORPUSCULAR VOLUME 76.3 fl (80.0-96.0); PLATELET COUNT, AUTOMATED 223 10^3/uL (150-450); RED BLOOD COUNT 4.14 10^6/uL (4.00-5.40); WHITE BLOOD COUNT 4.1 10^3/uL (4.0-10.0)
[2019-06-17 08:47] LABS: CALCIUM LEVEL 8.3 MG/DL (8.5-10.1); CREATININE FOR GFR 1.12 MG/DL (0.55-1.30); GLOMERULAR FILTRATION RATE 54.6 (>51); POTASSIUM SERUM 3.7 MEQ/L (3.5-5.1)
[2019-06-17] MEDS: SODIUM CHLORIDE 0.9% INJ 10 ML SYR IV SCH (09:00)
[2019-06-17] MEDS: DIVALPROEX 500MG *ER* TAB PO SCH ×2 (09:49→20:32)
[2019-06-17] MEDS: DULoxetine 30 MG CAP (CYMBALTA) PO SCH ×2 (09:50→20:31)
[2019-06-17] MEDS: clonazePAM 1 MG TAB PO SCH ×2 (09:50→20:30)
[2019-06-17] MEDS: hydrOXYzine 50 MG TAB PO SCH ×2 (09:50→20:30)
[2019-06-17] MEDS: POTASSIUM CHLORIDE 10 MEQ SR TABLET PO SCH (09:50)
[2019-06-17] MEDS: METOPROLOL SUCC *XL* 25MG TAB (TopROL *XL*) PO SCH (09:50)
[2019-06-17] MEDS: AMANTADINE 100 MG CAP PO SCH ×2 (09:51→20:31)
[2019-06-17] MEDS: ACYCLOVIR 200 MG CAPSULE PO SCH ×2 (09:51→20:29)
[2019-06-17] MEDS: ATORVASTATIN 20 MG TAB PO SCH (09:51)
[2019-06-17] MEDS: BACLOFEN 10 MG TAB PO SCH ×3 (09:51→20:32)
[2019-06-17] MEDS: MELOXICAM (MOBIC) 7.5 MG TAB PO SCH (09:52)
[2019-06-17] MEDS: OMEPRAZOLE 20 MG CAP PO SCH ×2 (09:52→20:31)
[2019-06-17] MEDS: levETIRAcetam 250MG TABLET (KEPPRA) PO SCH ×2 (09:52→20:30)
[2019-06-17] MEDS: PREGABALIN 100 MG CAP (LYRICA) PO SCH ×2 (09:52→20:31)
[2019-06-17 14:00] VITALS: BP 138/72
[2019-06-17] MEDS: ULTRACET TAB PO PRN (14:43)
[2019-06-17] MEDS: ARIPiprazole 2 MG TAB PO SCH (20:30)
[2019-06-17] MEDS: PHENYTOIN ER 100 MG CAP PO SCH (20:30)
[2019-06-17] MEDS: traZODone 50 MG TAB PO SCH (20:31)
[2019-06-17] MEDS: ENOXAPARIN 40 MG/0.4 ML SYRINGE (J1650) SC SCH (20:32)
[2019-06-17 21:38] VITALS: BP 125/79
[2019-06-18 05:46] VITALS: BP 134/84
[2019-06-18 05:47] VITALS: BP 134/84
[2019-06-18] MEDS: LEVOTHYROXINE 50MCG TABLET (0.05MG) PO SCH (05:49)
[2019-06-18] MEDS: LevoFLOXacin 250 MG TABLET PO SCH (05:50)
[2019-06-18] MEDS: POTASSIUM CHLORIDE 10 MEQ SR TABLET PO SCH (09:00)
[2019-06-18] MEDS: levETIRAcetam 250MG TABLET (KEPPRA) PO SCH ×2 (09:00→20:52)
[2019-06-18] MEDS: SODIUM CHLORIDE 0.9% INJ 10 ML SYR IV SCH (09:00)
[2019-06-18] MEDS: DULoxetine 30 MG CAP (CYMBALTA) PO SCH ×2 (09:00→20:54)
[2019-06-18] MEDS: ACYCLOVIR 200 MG CAPSULE PO SCH ×2 (09:01→20:54)
[2019-06-18] MEDS: MELOXICAM (MOBIC) 7.5 MG TAB PO SCH (09:01)
[2019-06-18] MEDS: ATORVASTATIN 20 MG TAB PO SCH (09:01)
[2019-06-18] MEDS: DIVALPROEX 500MG *ER* TAB PO SCH ×2 (09:01→20:54)
[2019-06-18] MEDS: PREGABALIN 100 MG CAP (LYRICA) PO SCH ×2 (09:01→20:52)
[2019-06-18] MEDS: METOPROLOL SUCC *XL* 25MG TAB (TopROL *XL*) PO SCH (09:02)
[2019-06-18] MEDS: BACLOFEN 10 MG TAB PO SCH ×3 (09:02→20:54)
[2019-06-18] MEDS: OMEPRAZOLE 20 MG CAP PO SCH ×2 (09:02→20:54)
[2019-06-18] MEDS: clonazePAM 1 MG TAB PO SCH ×2 (09:02→20:53)
[2019-06-18] MEDS: hydrOXYzine 50 MG TAB PO SCH ×2 (09:02→20:54)
[2019-06-18] MEDS: AMANTADINE 100 MG CAP PO SCH ×2 (09:02→20:54)
--- NOTE | 2019-06-18 13:40 | IPN ---
DATE: 06/18/2019 Elise is still confused today. She has been like this the last few days. Originally had hoped to discharge her tomorrow, but I do not think that is going to be feasible. I met with her , Joey, today. He agrees that her mental status is not sufficient for her discharge home. Etiology of this is unknown. We did an MRI scan. It did not show any progression. She fell on the night of 06/17/2019. CT of the brain did not show any bleed or injury. Her white count continues to fall, suggesting adequate treatment of her urinary tract infection. She is on Levaquin and quinolones can have some significant cognitive side effects, as well as problems with balance/vertigo. This is her tenth day of antibiotic therapy for polymicrobial urinary tract infection (UTI) so I am stopping this. She is also on Keppra, which can cause an elevation of ammonia, so we will check this as well. PHYSICAL EXAMINATION: Blood pressure 134/84, pulse 85, respiratory rate 14, 95% oxygen saturation. GENERAL APPEARANCE: She is alert. She is watching television. She is watching the [employer], but she does not speak Nepali. LUNGS: Clear. HEART: Regular rate and rhythm. ABDOMEN: Soft, nontender. No asterixis. Decreased strength in her legs. IMPRESSION: 1. Altered mental status, probably from Levaquin. This is the tenth day of her antibiotics. We will discontinue it after today. I have ordered an ammonia level. She is on Keppra, which can cause hyperammonemia. Yesterday, I reduced the dose of her Baclofen, but should note that some of her problems developed when we switched her from tizanidine to Baclofen at her request for leg spasms. We might have to go back to the tizanidine, which does not work as well for her. At this point, tentative plan is for discharge hopefully on 06/20/2019. She has an appointment with a neurologist in [place] on 06/21/2019.
[2019-06-18 14:00] VITALS: BP 126/62
[2019-06-18] MEDS: ULTRACET TAB PO PRN (15:03)
[2019-06-18] MEDS: SENNA 8.6 MG TAB (SENOKOT) PO PRN (15:08)
[2019-06-18] MEDS: PHENYTOIN ER 100 MG CAP PO SCH (20:53)
[2019-06-18] MEDS: traZODone 50 MG TAB PO SCH (20:53)
[2019-06-18] MEDS: ARIPiprazole 2 MG TAB PO SCH (20:54)
[2019-06-18] MEDS: ENOXAPARIN 40 MG/0.4 ML SYRINGE (J1650) SC SCH (20:55)
[2019-06-18 21:06] VITALS: BP 158/96
[2019-06-18 21:13] VITALS: BP 138/92
[2019-06-19 06:09] LABS: HEMATOCRIT 30.5 % (36.0-47.0); MEAN CORPUSCULAR HEMOGLOBIN 24.5 pg (27.0-33.0); MEAN CORPUSCULAR HGB CONC 32.8 g/dl (32.0-36.5); MEAN CORPUSCULAR VOLUME 74.8 fl (80.0-96.0); PLATELET COUNT, AUTOMATED 234 10^3/uL (150-450); RED BLOOD COUNT 4.08 10^6/uL (4.00-5.40); WHITE BLOOD COUNT 4.5 10^3/uL (4.0-10.0)
[2019-06-19 06:34] VITALS: BP 134/84
[2019-06-19 06:37] LABS: BLOOD UREA NITROGEN 17 MG/DL (7-18); CALCIUM LEVEL 8.7 MG/DL (8.5-10.1); CARBON DIOXIDE LEVEL 27 MEQ/L (21-32); CHLORIDE LEVEL 109 MEQ/L (98-107); CREATININE FOR GFR 1.03 MG/DL (0.55-1.30); GLOMERULAR FILTRATION RATE > 60.0 (>51); GLUCOSE, FASTING 80 MG/DL (70-100); POTASSIUM SERUM 3.8 MEQ/L (3.5-5.1); SODIUM LEVEL 143 MEQ/L (136-145)
[2019-06-19] MEDS: LEVOTHYROXINE 50MCG TABLET (0.05MG) PO SCH (06:46)
[2019-06-19] MEDS: LevoFLOXacin 250 MG TABLET PO SCH (06:46)
[2019-06-19] MEDS: AMANTADINE 100 MG CAP PO SCH ×2 (09:38→20:44)
[2019-06-19] MEDS: clonazePAM 1 MG TAB PO SCH ×2 (09:38→20:43)
[2019-06-19] MEDS: hydrOXYzine 50 MG TAB PO SCH ×2 (09:38→20:47)
[2019-06-19] MEDS: BACLOFEN 10 MG TAB PO SCH ×3 (09:38→20:46)
[2019-06-19] MEDS: LACTULOSE 20 GM/30 ML SYRUP UD PO PRN (09:38)
[2019-06-19] MEDS: POTASSIUM CHLORIDE 10 MEQ SR TABLET PO SCH (09:39)
[2019-06-19] MEDS: MELOXICAM (MOBIC) 7.5 MG TAB PO SCH (09:39)
[2019-06-19] MEDS: OMEPRAZOLE 20 MG CAP PO SCH ×2 (09:39→20:43)
[2019-06-19] MEDS: PREGABALIN 100 MG CAP (LYRICA) PO SCH ×2 (09:39→20:43)
[2019-06-19] MEDS: DIVALPROEX 500MG *ER* TAB PO SCH ×2 (09:40→20:46)
[2019-06-19] MEDS: METOPROLOL SUCC *XL* 25MG TAB (TopROL *XL*) PO SCH (09:42)
[2019-06-19] MEDS: levETIRAcetam 250MG TABLET (KEPPRA) PO SCH ×2 (09:42→20:47)
[2019-06-19] MEDS: ACYCLOVIR 200 MG CAPSULE PO SCH ×2 (09:43→20:44)
[2019-06-19] MEDS: DULoxetine 30 MG CAP (CYMBALTA) PO SCH ×2 (09:43→20:45)
[2019-06-19] MEDS: ATORVASTATIN 20 MG TAB PO SCH (09:44)
[2019-06-19] MEDS: ULTRACET TAB PO PRN (10:53)
--- NOTE | 2019-06-19 11:47 | IPN ---
DATE: 06/19/2019 Elise is seen on [address]. She looks brighter today. We had stopped her Levaquin after completing a course of antibiotics and I was concerned Levaquin was causing some of her cognitive decline. She does look brighter today. We did lab work. Her ammonia is minimally elevated probably from the Keppra. I do not think it is high enough to be causing any cognitive problems and she has no asterixis on exam. PHYSICAL EXAMINATION: Afebrile, vital signs stable. General appearance: Resting comfortably, is much more interactive. She knows the month and the year, and her location. She can name the president. This is all improved from yesterday. Lungs clear. Heart regular rhythm. Abdomen soft, nontender. Lower extremities are a little spastic and weak (had to reduce the baclofen dose because of the sedation). Neurologic exam: There is no asterixis. LABS: CBC unremarkable, hemoglobin 10. Electrolytes are unremarkable. Potassium 3.8, creatinine 1.0. IMPRESSION: 1. Altered mental status. Probably from Levaquin. It is better since this has been discontinued. Her ammonia was minimally elevated, probably from the Keppra, but I do not think it is high enough to be causing any encephalopathy and she has no asterixis on exam. She also was on a higher dose of baclofen at her request for leg spasms, so reducing this might have helped as well. 2. Multiple sclerosis (MS). She has an appointment with her neurologist in [place] on 06/21/2019. She expects that she should be able to be discharged on 06/20. 3. Polymicrobial urinary tract infection. She finished her antibiotics yesterday. 4. MS. No new lesions on MRI scan. Appointment with neurologist pending on 06/21/2019 as an outpatient. 5. Seizure disorder. She has not had any seizures. Valproic acid level was low. I repeated it, still subtherapeutic, but she has been seizure free. I am not inclined to change the dose, particularly when she has a neurology appointment coming up in a few days. I will repeat her level tomorrow.
[2019-06-19 14:52] VITALS: BP 151/88
[2019-06-19] MEDS: ENOXAPARIN 40 MG/0.4 ML SYRINGE (J1650) SC SCH (20:43)
[2019-06-19] MEDS: ARIPiprazole 2 MG TAB PO SCH (20:43)
[2019-06-19] MEDS: traZODone 50 MG TAB PO SCH (20:44)
[2019-06-19] MEDS: PHENYTOIN ER 100 MG CAP PO SCH (20:45)
[2019-06-19] MEDS: SENNA 8.6 MG TAB (SENOKOT) PO PRN (20:45)
[2019-06-19] MEDS: IBUPROFEN 800 MG TAB PO PRN (20:46)
[2019-06-19 21:53] VITALS: BP 156/100
[2019-06-20 05:36] LABS: HEMATOCRIT 29.8 % (36.0-47.0); HEMOGLOBIN 9.6 g/dl (12.0-15.5); MEAN CORPUSCULAR HEMOGLOBIN 24.7 pg (27.0-33.0); MEAN CORPUSCULAR HGB CONC 32.2 g/dl (32.0-36.5); MEAN CORPUSCULAR VOLUME 76.8 fl (80.0-96.0); PLATELET COUNT, AUTOMATED 214 10^3/uL (150-450); RED BLOOD COUNT 3.88 10^6/uL (4.00-5.40); WHITE BLOOD COUNT 4.2 10^3/uL (4.0-10.0)
[2019-06-20] MEDS: LevoFLOXacin 250 MG TABLET PO SCH (05:41)
[2019-06-20] MEDS: IBUPROFEN 800 MG TAB PO PRN (05:41)
[2019-06-20] MEDS: LEVOTHYROXINE 50MCG TABLET (0.05MG) PO SCH (05:41)
[2019-06-20 05:55] VITALS: BP 138/94
[2019-06-20 06:02] LABS: CALCIUM LEVEL 8.1 MG/DL (8.5-10.1); CREATININE FOR GFR 1.06 MG/DL (0.55-1.30); GLOMERULAR FILTRATION RATE 58.2 (>51); POTASSIUM SERUM 3.7 MEQ/L (3.5-5.1); VALPROIC ACID (DEPAKOTE) 26.9 UG/ML (50.0-100.0)
[2019-06-20] MEDS: METOPROLOL SUCC *XL* 25MG TAB (TopROL *XL*) PO SCH (09:04)
[2019-06-20] MEDS: LACTULOSE 20 GM/30 ML SYRUP UD PO PRN (09:04)
[2019-06-20] MEDS: POTASSIUM CHLORIDE 10 MEQ SR TABLET PO SCH (09:05)
[2019-06-20] MEDS: clonazePAM 1 MG TAB PO SCH ×2 (09:05→21:27)
[2019-06-20] MEDS: BACLOFEN 10 MG TAB PO SCH ×3 (09:05→21:29)
[2019-06-20] MEDS: ATORVASTATIN 20 MG TAB PO SCH (09:05)
[2019-06-20] MEDS: MELOXICAM (MOBIC) 7.5 MG TAB PO SCH (09:05)
[2019-06-20] MEDS: hydrOXYzine 50 MG TAB PO SCH ×2 (09:05→21:29)
[2019-06-20] MEDS: DULoxetine 30 MG CAP (CYMBALTA) PO SCH ×2 (09:05→21:27)
[2019-06-20] MEDS: DIVALPROEX 500MG *ER* TAB PO SCH ×2 (09:05→21:28)
[2019-06-20] MEDS: AMANTADINE 100 MG CAP PO SCH ×2 (09:06→21:29)
[2019-06-20] MEDS: PREGABALIN 100 MG CAP (LYRICA) PO SCH ×2 (09:06→21:29)
[2019-06-20] MEDS: OMEPRAZOLE 20 MG CAP PO SCH ×2 (09:06→21:27)
[2019-06-20] MEDS: levETIRAcetam 250MG TABLET (KEPPRA) PO SCH ×2 (09:06→21:28)
[2019-06-20] MEDS: ACYCLOVIR 200 MG CAPSULE PO SCH ×2 (09:06→21:29)
[2019-06-20] MEDS ORDERED: BACL10TA2 PO (12:23)
[2019-06-20] MEDS ORDERED: LACTULOSE 20 GM/30 ML SYRUP UD PO ONE (14:00)
[2019-06-20 14:54] VITALS: BP 128/90
[2019-06-20] MEDS: PHENYTOIN ER 100 MG CAP PO SCH (21:27)
[2019-06-20] MEDS: traZODone 50 MG TAB PO SCH (21:27)
[2019-06-20] MEDS: ENOXAPARIN 40 MG/0.4 ML SYRINGE (J1650) SC SCH (21:29)
[2019-06-20] MEDS: ARIPiprazole 2 MG TAB PO SCH (21:29)
[2019-06-20 21:34] VITALS: BP 142/102
--- NOTE | 2019-06-20 22:27 | IPNPDOC ---
Subjective Date Seen The patient was seen on 06/20/19. Subjective Chief Complaint/HPI Follow-up multiple sclerosis and altered mental status Events since last encounter Patient seen and examined at bedside. at bedside. Reportedly, patient still confused at times. Ammonia trending up to 72 with Asterixis on exam. Patient denies fevers, chills, chest pain, difficulty breathing, nausea, vomiting, abdominal pain, leg pain. Objective Physical Examination General Exam: Positive: Alert, Cooperative, No Acute Distress ENT Exam: Positive: Atraumatic, Mucous membr. moist/pink Neck Exam: Negative: JVD Chest Exam: Positive: Clear to auscultation, Normal air movement Heart Exam: Positive: Rate Normal, Normal S1, Normal S2, Other (+murmur) Abdomen Exam: Positive: Soft, Other (positive for urostomy tube); Negative: Tenderness Extremity Exam: Positive: Edema (trace edema b/l LE ); Negative: Tenderness Psych Exam: Positive: Oriented x 3 Assessment /Plan Assessment Patient is a 53-year-old female with multiple sclerosis who presented with altered mental status Plan/VTE VTE Prophylaxis Ordered?: Yes Plan 1. Altered mental status/metabolic encephalopathy. -elevated ammonia level to 72 with asterixis on exam -pt on lactulose will give extra dose as needed to have BM as pt has not had one today -trend mental status exam. 2. Multiple sclerosis (MS). - No new lesions on MRI scan. -pt to reschedule appointment with her neurologist 3. Polymicrobial urinary tract infection. -s/p full treatment course 4. Seizure disorder. She has not had any seizures. -pt remains seizure free -will cont. valproic acid at current dose -seizure precautions -cont. to monitor Disposition home pending improvement mental status VS, I&O, [facility] Vital Signs/I&O Vital Signs Date Time Temp Pulse Resp B/P (MAP) Pulse Ox O2 Delivery O2 Flow Rate FiO2 06/20/19 14:54 97.3 86 16 128/90 (103) 94 I&O- Last 24 Hours up to 6 AM 06/20/19 05:59 Intake Total 1920 ml Output Total 1750 ml Balance 170 ml Laboratory Data 24H LABS Laboratory Tests 2 06/20/19 05:14: Nucleated Red Blood Cells % (auto) 0.0, Anion Gap 7L, Glomerular Filtration Rate 58.2, Blood Urea Nitrogen 15, Creatinine 1.06, Sodium Level 143, Potassium Level 3.7, Chloride Level 108H, Carbon Dioxide Level 28, Calcium Level 8.1L, Valproic Acid (Depakene) Level 26.9L 06/20/19 12:23: Ammonia 72H CBC/BMP Laboratory Tests 06/20/19 05:14 Red Blood Count 3.88 L, Mean Corpuscular Volume 76.8 L, Mean Corpuscular Hemoglobin 24.7 L, Mean Corpuscular Hemoglobin Concent 32.2, Red Cell Distribution Width 15.5 H, Calcium Level 8.1 L AYLA PEREZ MD Jun 20, 2019 22:27
[2019-06-20 22:50] VITALS: BP 140/72
[2019-06-21] MEDS: LEVOTHYROXINE 50MCG TABLET (0.05MG) PO SCH (05:54)
[2019-06-21 06:14] VITALS: BP 141/97
[2019-06-21 06:20] LABS: HEMATOCRIT 28.5 % (36.0-47.0); HEMOGLOBIN 9.2 g/dl (12.0-15.5); MEAN CORPUSCULAR HEMOGLOBIN 24.7 pg (27.0-33.0); MEAN CORPUSCULAR HGB CONC 32.3 g/dl (32.0-36.5); MEAN CORPUSCULAR VOLUME 76.4 fl (80.0-96.0); PLATELET COUNT, AUTOMATED 205 10^3/uL (150-450); RED BLOOD COUNT 3.73 10^6/uL (4.00-5.40); WHITE BLOOD COUNT 4.4 10^3/uL (4.0-10.0)
[2019-06-21 06:43] LABS: CALCIUM LEVEL 7.9 MG/DL (8.5-10.1); CREATININE FOR GFR 1.11 MG/DL (0.55-1.30); GLOMERULAR FILTRATION RATE 55.2 (>51); POTASSIUM SERUM 3.8 MEQ/L (3.5-5.1)
[2019-06-21] MEDS: POTASSIUM CHLORIDE 10 MEQ SR TABLET PO SCH (09:14)
[2019-06-21] MEDS: ATORVASTATIN 20 MG TAB PO SCH (09:14)
[2019-06-21 09:15] VITALS: BP 141/97
[2019-06-21] MEDS: METOPROLOL SUCC *XL* 25MG TAB (TopROL *XL*) PO SCH (09:15)
[2019-06-21] MEDS: hydrOXYzine 50 MG TAB PO SCH (09:15)
[2019-06-21] MEDS: BACLOFEN 10 MG TAB PO SCH (09:15)
[2019-06-21] MEDS: OMEPRAZOLE 20 MG CAP PO SCH (09:15)
[2019-06-21] MEDS: levETIRAcetam 250MG TABLET (KEPPRA) PO SCH (09:15)
[2019-06-21] MEDS: DULoxetine 30 MG CAP (CYMBALTA) PO SCH (09:16)
[2019-06-21] MEDS: clonazePAM 1 MG TAB PO SCH (09:16)
[2019-06-21] MEDS: PREGABALIN 100 MG CAP (LYRICA) PO SCH (09:16)
[2019-06-21] MEDS: ACYCLOVIR 200 MG CAPSULE PO SCH (09:16)
[2019-06-21] MEDS: MELOXICAM (MOBIC) 7.5 MG TAB PO SCH (09:16)
[2019-06-21] MEDS: DIVALPROEX 500MG *ER* TAB PO SCH (09:16)
[2019-06-21] MEDS: AMANTADINE 100 MG CAP PO SCH (09:17)
[2019-06-21] MEDS: ULTRACET TAB PO PRN (09:21)
[2019-06-21] MEDS: LACTULOSE 20 GM/30 ML SYRUP UD PO PRN (13:38)
--- NOTE | 2019-06-22 06:28 | DS.PDOC ---
Discharge Summary General Date of Admission Jun 08, 2019 at 20:42 Date of Discharge 06/21/19 Attending Physician: AYLA PEREZ MD Discharge Summary PROCEDURES PERFORMED DURING STAY: None. ADMITTING DIAGNOSES: 1. UTI 2. progressive MS DISCHARGE DIAGNOSES: 1. UTI 2. progressive MS 3. Obesity 4. encephalopathy multifactorial, likely metabolic and toxic 5. Seizure d/o 6. Chronic urostomy COMPLICATIONS/CHIEF COMPLAINT: UTI. HISTORY OF PRESENT ILLNESS: As per admission H&P: "53-year-old female with past medical history of multiple sclerosis diagnosed in 2005, chronic pain secondary to multiple sclerosis, anxiety/depression, shingles, obesity, hypothyroidism, and neurogenic bladder status post urostomy with recurrent urinary tract infections presents to the ER with chief complaint of increased lethargy, malaise, and chills over the last several days. The patient states that during this time she is also noticed cloudy urine. She denies any complaints of fevers, cough, congestion, abdominal pain, or any diarrhea. In the ER, the patient's urinalysis was suggestive of a urinary tract infection given her clinical picture as well. She will be admitted to the hospitalist service for further evaluation and management." HOSPITAL COURSE: Pt was treated for UTI with marcos and levaquin. urine culture came back positive for Enterobacter and staph aureus. Pt maintained on marcos levo d/c'd. Dozy added on as well as Levaquin 250 mg daily added back. She had clinical response to this. So regimen switched over to Levaquin 250 mg daily and she tolerated this well. She had resolution of her fever and no leukocytosis. Her MS was worse during her illness. Provider spoke with her neurologist at [facility] and he did not advise pulse steroids in the context of this infection. She has some spasticity of her lower extremities. She had previously been on Baclofen and that was changed to tizanidine, which does not work as well for her and she was put back on Baclofen 10 mg three times a day, the dose was increased to 20 mg three times a day today with good results. Pt then became more confused. Pt's encephalopathy thought to be multifactorial including toxic related to the keppa which may have been increasing her ammonia levels. Additionally the baclofen dose was thought to be too elevated so it was reduced back to 10TID. Pt's mental status eventually cleared and ammonia level returned to ~40's. Suspect some element of toxic encephalopathy from medications. Pt seen and examined on day of discharge. Pt appeared mentally clear and at baseline per who is primary caregiver. Pt otherwise feeling at baseline denies any fever, chills, CP, SOB, N/V/D. DISCHARGE MEDICATIONS: Please see below. ALLERGIES: Please see below. PHYSICAL EXAMINATION ON DISCHARGE: VITAL SIGNS: Please see below. GENERAL: obese woman laying in bed in NAD CARDIOVASCULAR EXAMINATION: RRR, nl s1/2 RESPIRATORY EXAMINATION: CTA b/l no w/r/r ABDOMINAL EXAMINATION: soft, NT, ND, obese EXTREMITIES: 1+ LE edema b/l (chronic) SKIN: no rash PSYCHIATRIC EXAMINATION: A&Ox3, nl mood LABORATORY DATA: Please see below. IMAGING: Brain MRI: Findings are unchanged. No abnormal gadolinium enhancement is seen. Multiple foci of T2 hyperintensity are seen in the supratentorial brain involving subcortical and periventricular white matter. No change from comparison study November 01, 2018 and June 29, 2018. ACTIVITY: As tolerated. DIET: regular diet DISCHARGE PLAN: plan to follow up with PMD and neurologist DISPOSITION: 06 Home Health Service. DISCHARGE INSTRUCTIONS: 1. Please follow up with your PMD 2. Please follow up with your neurologist ITEMS TO FOLLOWUP ON ON OUTPATIENT: none DISCHARGE CONDITION: Stable. TIME SPENT ON DISCHARGE: 40 minutes. Vital Signs/I&Os Vital Signs Date Time Temp Pulse Resp B/P (MAP) Pulse Ox O2 Delivery O2 Flow Rate FiO2 06/21/19 09:51 18 06/21/19 09:15 75 141/97 06/21/19 06:14 97.7 95 I&O- Last 24 Hours up to 6 AM 06/22/19 06:00 Intake Total 840 ml Output Total 600 ml Balance 240 ml Laboratory Data Labs 24H Laboratory Tests 2 06/21/19 13:41: Ammonia 43H Discharge Medications Scheduled Acyclovir (Acyclovir) 400 Mg Tab, 400 MG PO BID, (Reported) Amantadine HCl (Amantadine) 100 Mg Tab, 100 MG PO BID, (Reported) Aripiprazole (Aripiprazole) 2 Mg Tablet, 2 MG PO QHS, (Reported) Atorvastatin Calcium (Atorvastatin Calcium) 40 Mg Tablet, 40 MG PO DAILY, (Reported) Baclofen (Baclofen) 10 Mg Tablet, 10 MG PO TID Clonazepam (Clonazepam) 1 Mg Tab, 1 MG PO BID, (Reported) Divalproex Sodium (Depakote ER) 500 Mg Tab.er.24h, 500 MG PO BID, (Reported) Duloxetine Hcl (Duloxetine HCl) 60 Mg Capsule.dr, 60 MG PO BID, (Reported) Fluconazole (Fluconazole) 150 Mg Tablet, 150 MG PO DAILY, (Reported) TO TAKE X 7 DAYS STARTED 06/04/19 Hydroxyzine HCl (Hydroxyzine HCl) 50 Mg Tab, 50 MG PO BID, (Reported) Levetiracetam (Keppra) 500 Mg Tablet, 500 MG PO BID, (Reported) Levothyroxine Sodium (Levothyroxine Sodium) 50 Mcg Tablet, 50 MCG PO QAM, (Reported) 30 MINUTES BEFORE BREAKFAST Meloxicam (Meloxicam) 15 Mg Tablet, 15 MG PO DAILY, (Reported) Metoprolol Succinate (Metoprolol Succinate) 25 Mg Tab, 25 MG PO DAILY, (Reported) Omeprazole (Omeprazole) 40 Mg Cap, 40 MG PO BID, (Reported) Phenytoin Sodium Extended (Dilantin) 100 Mg Capsule, 500 MG PO QHS, (Reported) Potassium Chloride (Potassium Chloride) 10 Meq Tab.er.prt, 10 MEQ PO DAILY, (Reported) Pregabalin (Lyrica) 100 Mg Capsule, 300 MG PO BID, (Reported) Trazodone HCl (Trazodone HCl) 150 Mg Tablet, 150 MG PO QHS, (Reported) Scheduled PRN Albuterol Sulfate (Ventolin Hfa) 108 Mcg/Act Aer, 2 PUFFS INH Q4H PRN for SHORTNESS OF BREATH, (Reported) Bisacodyl (Bisacodyl) 10 Mg Sup, 10 MG [place] DAILY PRN for CONSTIPATION, (Reported) Lactulose (Lactulose) 10 Gm/15 Ml Deborah, 30 ML PO DAILY PRN for CONSTIPATION, (Reported) Mometasone Furoate (Asmanex Hfa) 100 Mcg/Act Aer, 1 PUFF INH QPM PRN for ASTHMA, (Reported) Nystatin (Nystatin) 15 Gm Cream..g., 1 DOSE TOP DAILY PRN for RASH, (Reported) APPLIES TO UROSTOMY Promethazine HCl (Promethazine HCl) 25 Mg Tab, 25 MG PO Q4H PRN for NAUSEA, (Reported) Senna (Senna Lax) 8.6 Mg Tab, 2 TAB PO BID PRN for CONSTIPATION, (Reported) Allergies Coded Allergies: Cephalosporins (Verified Allergy, Mild, rash, 04/27/19) Sulfa (Sulfonamide Antibiotics) (Verified Allergy, Mild, itchy, 04/27/19) oxycodone (Verified Allergy, Mild, itchy, 04/27/19) hydrocodone (Verified Adverse Reaction, Intermediate, chest pain, 04/27/19) acetaminophen (Verified Adverse Reaction, Mild, NAUSEA, 04/27/19) AYLA PEREZ MD Jun 22, 2019 06:28
== END 2019-06-21 15:35 | disposition home health service (06) | DRG 689 ==
LOC: M ED 15:04 → M ED INP 20:42 → M MS5PR 23:15
PROVIDERS: ADMIT Internal Medicine; ATTEND Internal Medicine
DX: N39.0 Urinary tract infection, site not specified (principal); G93.41 Metabolic encephalopathy; Z68.41 Body mass index [BMI] 40.0-44.9, adult; G35 Multiple sclerosis; G40.909 Epilepsy, unspecified, not intractable, without status epilepticus; E66.9 Obesity, unspecified; F41.9 Anxiety disorder, unspecified; F32.9 Major depressive disorder, single episode, unspecified; E03.9 Hypothyroidism, unspecified; Z79.899 Other long term (current) drug therapy; Z88.2 Allergy status to sulfonamides; Z88.5 Allergy status to narcotic agent; Z88.8 Allergy status to other drugs, medicaments and biological substances; G43.909 Migraine, unspecified, not intractable, without status migrainosus

== ENCOUNTER 2019-06-26 12:59 | Inpatient (IN) | payer MEDICARE, BC, OTHER ==
[~2019-06-26] VITALS: Ht 154.9 cm; Wt 95.1 kg
[~2019-06-26 12:59] MED LIST changes: +ATOR40TA75 PO; +BACL10TA2 PO; +FLUC150T PO; +LEVO250T12 PO; +NYST10CR TOP
[2019-06-26] MEDS ORDERED: LEVO250T12 PO (13:09)
[2019-06-26 14:28] LABS: BASO % 0.4 % (0.0-1.0); EOS # 0.3 10^3/uL (0.0-0.50); EOS % 6.3 % (0.0-3.0); HEMATOCRIT 31.7 % (36.0-47.0); HEMOGLOBIN 10.1 g/dl (12.0-15.5); LYMPH # 0.7 10^3/uL (1.5-4.5); MEAN CORPUSCULAR HEMOGLOBIN 24.2 pg (27.0-33.0); MEAN CORPUSCULAR HGB CONC 31.9 g/dl (32.0-36.5); MEAN CORPUSCULAR VOLUME 75.8 fl (80.0-96.0); MONO # 0.6 10^3/uL (0.0-0.8); MONO % 12.6 % (0.0-5.0); NEUTROPHILS # 3.2 10^3/uL (1.8-7.7); NEUTROPHILS % 65.5 % (36.0-66.0); PLATELET COUNT, AUTOMATED 236 10^3/uL (150-450); RED BLOOD COUNT 4.18 10^6/uL (4.00-5.40); WHITE BLOOD COUNT 4.9 10^3/uL (4.0-10.0)
[2019-06-26 14:51] LABS: ALBUMIN 3.4 GM/DL (3.2-5.2); BILIRUBIN,DIRECT 0.1 MG/DL (0.0-0.2); BILIRUBIN,TOTAL 0.2 MG/DL (0.2-1.0); CALCIUM LEVEL 8.8 MG/DL (8.5-10.1); CREATININE FOR GFR 1.13 MG/DL (0.55-1.30); POTASSIUM SERUM 3.9 MEQ/L (3.5-5.1); TOTAL PROTEIN 6.8 GM/DL (6.4-8.2)
[2019-06-26] MEDS ORDERED: ECOT81TA5 PO (15:25)
[2019-06-26] MEDS ORDERED: BACL10TA2 PO (15:25)
[2019-06-26] MEDS ORDERED: MOM 30ML SUSPENSION UDC PO PRN (16:00)
[2019-06-26] MEDS ORDERED: BISACODYL 10 MG SUPP PR PRN (16:15)
[2019-06-26] MEDS ORDERED: LACTULOSE 20 GM/30 ML SYRUP UD PO PRN (16:15)
[2019-06-26] MEDS ORDERED: NYSTATIN CREAM 15 GM TOP PRN (16:15)
[2019-06-26] MEDS ORDERED: ALBUTEROL 90 MCG/ACT 8GM HFA INHALER INH PRN (16:15)
[2019-06-26 16:23] LABS: PHENYTOIN (DILANTIN) 26.1 UG/ML (10.0-20.0)
[2019-06-26] MEDS: LACTULOSE 20 GM/30 ML SYRUP UD PO SCH ×3 (17:00→20:54)
[2019-06-26] MEDS ORDERED: LORazepam 2 MG/ML VIAL (J2060) IV STA (18:11)
[2019-06-26] MEDS ORDERED: PROHANCE 279.3MG/ML 5ML VIAL (A9576) As Ordered ONE (18:51)
[2019-06-26 19:20] VITALS: BP 148/97
--- NOTE | 2019-06-26 20:41 | REPVR ---
EXAM: MR Cervical Spine Without and With Contrast EXAM DATE/TIME: 06/26/2019 4:48 PM CLINICAL HISTORY: 53 years old, female; Condition or disease; Other: Ms; Additional info: Multiple sclerosis b/l hand weakness TECHNIQUE: Imaging protocol: Multiplanar magnetic resonance images of the cervical spine without and with intravenous contrast. Contrast material: PROHANCE;Contrast volume: 9 ml;Contrast route: IV; COMPARISON: MRI-C SPINE W/O FOLL BY WITH 06/28/2013 9:29 AM FINDINGS: Vertebrae: Straightening of the normal cervical lordosis may be positional or due to muscle spasm. No acute fracture seen. Spinal cord: No T2 hyperintense lesions identified within the cervical cord. No abnormal cord enhancement. There is disc desiccation throughout. Disc height loss and spondylosis is mild at C5-6, as before. C2-C3: No significant interval change. No stenoses. C3-C4: No significant interval change. No stenoses. C4-C5: No significant interval change. No stenoses. C5-C6: No significant interval change. Mild disc osteophyte complex does not contribute to central spinal canal stenosis. Mild uncovertebral and facet arthropathy without contribution to significant foraminal stenoses. C6-C7: No significant interval change. Mild disc bulge without contribution to central spinal canal stenosis. Right uncovertebral and facet arthropathy causing mild right neural foraminal stenosis C7-T1: No significant interval change. Unremarkable. Soft tissues: Unremarkable. IMPRESSION: 1. There are mild motion artifacts. 2. No evidence of active cervical cord demyelination. Electronically signed by: Jenise Perales On 06/26/2019 20:41:12 PM
[2019-06-26] MEDS: ACYCLOVIR 200 MG CAPSULE PO SCH (20:54)
--- NOTE | 2019-06-26 20:54 | HPEPDOC ---
[facility] Medical History & Physical Date of Admission Jun 26, 2019 Date of Service: Jun 26, 2019 History and Physical CHIEF COMPLAINT: weaknesss HISTORY OF PRESENTING ILLNESS: 53-year-old female with past medical history of relapsing multiple sclerosis diagnosed in 2005, chronic pain secondary to multiple sclerosis, anxi ety/depression, shingles, obesity BMI 39, hypothyroidism, and neurogenic bladder status post urostomy with recurrent urinary tract infections presents to the ER with generalized weakness, bilateral legs buckiling, unable to ambulate on her own, requiring her to assist her from bed to wheelchair, decreased hand veterans service representative dropping her diet coke on the floor, and fell forward from sitting position in the bedroom as she tried to pick it up while her was in the shower. She was admitted for UTI from 06/08/19-06/21/19 and was well until a day after she returned home. She could not stand on her own, feed herslef as she could not grab her utensils and and glass, with her legs feeling "bouncy". She has remained on the first floor since being home. She admits to having cloudy sarah colored urine from her urostomy, without fever, chills,or flank pain. has also noted slowed speech, expressive aphasia taking longer to find the words to say but appropriate. In the ER she was afebrile no white count, u/a pending but still on levaquin from previous admission, elevated ammonia level and phenytoin level, and orthostatic. After speaking with her neurologist transportation design engineer at [facility] [phone], Dr. Dave, recommendations were to recheck UA, treat for UTI, check MRI cervical spine, and try 2days of solumedrol. PAST MEDICAL HISTORY: MS (RELAPSING)- DR FRANSISCO GALLEGOS (NEURO) IN [facility] SEIZURE DISORDER - DR FRANSISCO GALLEGOS (NEURO) IN [facility] NEUROGENIC BLADDER/ NEUROGENIC BOWEL - DR ADAMS (UROLOGY) IN [facility] HTN TORTICOLLIS- DR FRANSISCO GALLEGOS (NEURO) IN [facility] PSEUDOBULBAR AFFECT- DR FRANSISCO GALLEGOS (NEURO) IN [facility] PARESTHESIAS HYPONATREMIA SECONDARY TO OXCARBAZINE MULTI-DERMAL SHINGLES SECONDARY TO IMMUNOSUPPRESSION MICROCYTIC ANEMIA B12 DEFICIENCY VITAMIN D DEFICIENCY MIGRAINES OBESITY; SLEEP STUDY WITH DR. JIMENEZ IN [place]. NO SLEEP APNEA PSEUDOBULBAR AFFECT HOME MEDICATIONS: PLS SEE BELOW ALLERGIES: PLS SEE BELOW PAST SURGICAL HISTORY: 1. Breast reduction surgery 2. bilateral wrist surgery.. 3. Bladder resection 4. Hysterectomy 5. Tubal ligation 6. Mohs surgery for basal cancer 7. Port placement 8. Left ulnar implant. Social History Lives with: , Employment: Not working, Tobacco use: Former smoker [id number]. ETOH: Denies, Illicit drug use: Occasional THC use, Tattoos done unprofessionally: Denies, CODE STATUS: Full code Review of Systems Other systems 10 point review of systems negative unless otherwise specified in HPI. Physical Examination VITALS: PLS SEE BELOW General Exam: awake alert oriented to self, place, and time. slow to speak, but appropriate. no slurring of speech no word salad. no respiratory distress or use of accessory respiratory muscles. ENT Exam: face symmetric tongue midline Atraumatic, Mucous membr. moist/pink no cervical LAD or thyromegaly Chest Exam: Clear to auscultation, Normal air movement. AEBE no wheezing rales or rhonchi Heart Exam: Rate Normal, Normal S1, Normal S2 RRR Abdomen Exam: obese NT nD Soft, Other (positive for urostomy tube-concentrated orange colored urine Extremity Exam: no cyanosis or clubbing. (+) edema Neurologic: 4/5 strength b/l LE, decreased veterans service representative bilateral hands awake alert oriented to self, place, and time. slow to speak, but appropriate. no slurring of speech no word salad.fluent speech no dysmetria on finger to nose testing. gait not tested. LABORATORY DATA, IMAGING STUDIES, MICROBIOLOGY: PLS SEE BELOW ASSESSMENT AND PLAN: 53-year-old female with past medical history of relapsing multiple sclerosis diagnosed in 2005, chronic pain secondary to multiple sclerosis, anxiety/depression, shingles, obesity BMI 39, hypothyroidism, and neurogenic bladder status post urostomy with recurrent urinary tract infections presents to the ER with generalized weakness, bilateral legs buckiling, unable to ambulate on her own, requiring her to assist her from bed to wheelchair, decreased hand veterans service representative dropping her diet coke on the floor, and fell forward from sitting position in the bedroom as she tried to pick it up while her was in the shower. She was admitted for UTI from 06/08/19-06/21/19 and was well until a day after she returned home. She could not stand on her own, feed herslef as she could not grab her utensils and and glass, with her legs feeling "bouncy". She has remained on the first floor since being home. She admits to having cloudy sarah colored urine from her urostomy, without fever, chills,or flank pain. has also noted slowed speech, expressive aphasia taking longer to find the words to say but appropriate. In the ER she was afebrile no white count, u/a pending but still on levaquin from previous admission, elevated ammonia level and phenytoin level, and orthostatic. After speaking with her neurologist transportation design engineer at [facility] [phone], Dr. Dave, recommendations were to recheck UA, treat for UTI, check MRI cervical spine, and try 2days of solumedrol. Generalized weakness found to be orthostatic with autonomic instabilty. metoprolol discontinued, ivfluids started, and midodrine to be added if needed. rule out recurrent UTI, but may be colonized due to urostomy. will continue home dose of levaquin and await culture results may be due to multiple sclerosis exacerbation,but MRI was negative recently and repeat MRI brain not recommended by her [facility] neurologist PT/OT/ARU screen ordered all activity with assistance. Fall precautions Progressive Multiple sclerosis Continue medications as ordered. trial of solumedrol 1gram iv daily per her neurologist for two days and then re-discuss with her neurologist MRI cervical spine to further evaluate pt's c/o bilateral hand weakness. ARU screen Mood disorder Continue current regimen Seizure disorder with elevated phenytoin level, will hold until within normal levels. awaiting keppra level. Shingles Continue acyclovir Hypothyroidism Continue levothyroxine GERD Continue PPI Obesity Continue medical care Neurogenic bladder status post urostomy Follow-up as an outpatient DVT prophylaxis Lovenox SC Vital Signs Vital Signs Date Time Temp Pulse Resp B/P (MAP) Pulse Ox O2 Delivery O2 Flow Rate FiO2 06/26/19 15:00 87 18 Room Air 06/26/19 13:24 06/26/19 13:00 98.4 18 Laboratory Data Labs 24H Laboratory Tests 2 06/26/19 14:08: Immature Granulocyte % (Auto) 0.2, White Blood Count 4.9, Red Blood Count 4.18, Hemoglobin 10.1L, Hematocrit 31.7L, Mean Corpuscular Volume 75.8L, Mean Corpuscular Hemoglobin 24.2L, Mean Corpuscular Hemoglobin Concent 31.9L, Red Cell Distribution Width 15.1H, Platelet Count 236, Neutrophils (%) (Auto) 65.5, Lymphocytes (%) (Auto) 15.0L, Monocytes (%) (Auto) 12.6H, Eosinophils (%) (Auto) 6.3H, Basophils (%) (Auto) 0.4, Neutrophils # (Auto) 3.2, Lymphocytes # (Auto) 0.7L, Monocytes # (Auto) 0.6, Eosinophils # (Auto) 0.3, Basophils # (Auto) 0.0, Nucleated Red Blood Cells % (auto) 0.0, Anion Gap 8, Glomerular Filtration Rate 54.0, Calcium Level 8.8, Aspartate Amino Transf (AST/SGOT) 10, Alanine Aminotransferase (ALT/SGPT) 18, Alkaline Phosphatase 201H, Total Bilirubin 0.2, Direct Bilirubin 0.1, Ammonia 70H, Total Protein 6.8, Albumin 3.4, Albumin/Globulin Ratio 1.00 CBC/BMP Laboratory Tests 06/26/19 14:08 Red Blood Count 4.18, Mean Corpuscular Volume 75.8 L, Mean Corpuscular Hemoglobin 24.2 L, Mean Corpuscular Hemoglobin Concent 31.9 L, Red Cell Distribution Width 15.1 H, Neutrophils (%) (Auto) 65.5, Lymphocytes (%) (Auto) 15.0 L, Monocytes (%) (Auto) 12.6 H, Eosinophils (%) (Auto) 6.3 H, Basophils (%) (Auto) 0.4, Neutrophils # (Auto) 3.2, Lymphocytes # (Auto) 0.7 L, Monocytes # (Auto) 0.6, Eosinophils # (Auto) 0.3, Basophils # (Auto) 0.0 Microbiology Microbiology 06/26/19 Urine Culture, Received Pending Home Medications Scheduled Acyclovir (Acyclovir) 400 Mg Tab, 400 MG PO BID Amantadine HCl (Amantadine) 100 Mg Tab, 100 MG PO BID Aripiprazole (Aripiprazole) 2 Mg Tablet, 2 MG PO DAILY Aspirin (Ecotrin) 81 Mg Tablet.dr, 81 MG PO QHS Atorvastatin Calcium (Atorvastatin Calcium) 40 Mg Tablet, 40 MG PO DAILY Baclofen (Baclofen) 10 Mg Tablet, 10 MG PO TID Clonazepam (Clonazepam) 1 Mg Tab, 1 MG PO BID Divalproex Sodium (Depakote ER) 500 Mg Tab.er.24h, 500 MG PO BID Duloxetine Hcl (Duloxetine HCl) 60 Mg Capsule.dr, 60 MG PO BID Hydroxyzine HCl (Hydroxyzine HCl) 50 Mg Tab, 50 MG PO BID Levetiracetam (Keppra) 500 Mg Tablet, 500 MG PO BID Levofloxacin (Levofloxacin) 250 Mg Tablet, 250 MG PO DAILY DUE TO STOP 06/30/19 Levothyroxine Sodium (Levothyroxine Sodium) 50 Mcg Tablet, 50 MCG PO QAM 30 MINUTES BEFORE BREAKFAST Meloxicam (Meloxicam) 15 Mg Tablet, 15 MG PO DAILY Metoprolol Succinate (Metoprolol Succinate) 25 Mg Tab, 25 MG PO DAILY Omeprazole (Omeprazole) 40 Mg Cap, 40 MG PO BID Phenytoin Sodium Extended (Dilantin) 100 Mg Capsule, 500 MG PO QHS Potassium Chloride (Potassium Chloride) 10 Meq Tab.er.prt, 10 MEQ PO DAILY Pregabalin (Lyrica) 100 Mg Capsule, 300 MG PO BID Senna (Senna Lax) 8.6 Mg Tab, 2 TAB PO QHS Trazodone HCl (Trazodone HCl) 150 Mg Tablet, 150 MG PO QHS Scheduled PRN Albuterol Sulfate (Ventolin Hfa) 108 Mcg/Act Aer, 2 PUFFS INH Q4H PRN for SHORTNESS OF BREATH Bisacodyl (Bisacodyl) 10 Mg Sup, 10 MG [place] DAILY PRN for CONSTIPATION Lactulose (Lactulose) 10 Gm/15 Ml Deborah, 30 ML PO DAILY PRN for CONSTIPATION Mometasone Furoate (Asmanex Hfa) 100 Mcg/Act Aer, 1 PUFF INH QPM PRN for ASTHMA Nystatin (Nystatin) 15 Gm Cream..g., 1 DOSE TOP DAILY PRN for RASH APPLIES TO UROSTOMY Promethazine HCl (Promethazine HCl) 25 Mg Tab, 25 MG PO Q4H PRN for NAUSEA Allergies Coded Allergies: Cephalosporins (Verified Allergy, Mild, rash, 04/27/19) Sulfa (Sulfonamide Antibiotics) (Verified Allergy, Mild, itchy, 04/27/19) oxycodone (Verified Allergy, Mild, itchy, 04/27/19) hydrocodone (Verified Adverse Reaction, Intermediate, chest pain, 04/27/19) acetaminophen (Verified Adverse Reaction, Mild, NAUSEA, 04/27/19) A-FIB/CHADSVASC A-FIB History Current/History of A-Fib/PAF?: No Current PO Anticoag Therapy: JEFF Xiong MD Jun 26, 2019 15:53
[2019-06-26] MEDS: traZODone 50 MG TAB PO SCH (20:55)
[2019-06-26] MEDS: DULoxetine 30 MG CAP (CYMBALTA) PO SCH (20:55)
[2019-06-26] MEDS: PREGABALIN 100 MG CAP (LYRICA) PO SCH (20:55)
[2019-06-26] MEDS: ASPIRIN 81 MG ENTERIC TAB PO SCH (20:55)
[2019-06-26] MEDS: AMANTADINE 100 MG CAP PO SCH (20:55)
[2019-06-26] MEDS: clonazePAM 1 MG TAB PO SCH (20:55)
[2019-06-26] MEDS: levETIRAcetam 250MG TABLET (KEPPRA) PO SCH (20:55)
[2019-06-26] MEDS: BACLOFEN 10 MG TAB PO SCH (20:55)
[2019-06-26] MEDS: SENNA 8.6 MG TAB (SENOKOT) PO SCH (20:56)
[2019-06-26] MEDS: DIVALPROEX 500MG *ER* TAB PO SCH (20:56)
[2019-06-26] MEDS: NS 1,000 ML IV SCH (20:56)
[2019-06-26] MEDS ORDERED: ENOXAPARIN 40 MG/0.4 ML SYRINGE (J1650) SC ONE (21:00)
[2019-06-26] MEDS ORDERED: ENOXAPARIN 40 MG/0.4 ML SYRINGE (J1650) SC SCH (21:00)
[2019-06-26 22:00] VITALS: BP 137/79
[2019-06-26] MEDS: methylPREDNISolone 1,000 MG, VIAL MATE ADAPTER 1 EACH in D5W 250 ML IV SCH (23:23)
[2019-06-27 06:00] VITALS: BP 138/86
[2019-06-27] MEDS: LEVOTHYROXINE 50MCG TABLET (0.05MG) PO SCH (06:07)
[2019-06-27] MEDS: LevoFLOXacin 250 MG TABLET PO SCH (06:07)
[2019-06-27 06:29] LABS: HEMATOCRIT 30.9 % (36.0-47.0); HEMOGLOBIN 9.9 g/dl (12.0-15.5); MEAN CORPUSCULAR HEMOGLOBIN 24.3 pg (27.0-33.0); MEAN CORPUSCULAR VOLUME 75.7 fl (80.0-96.0); PLATELET COUNT, AUTOMATED 222 10^3/uL (150-450); RED BLOOD COUNT 4.08 10^6/uL (4.00-5.40); WHITE BLOOD COUNT 3.7 10^3/uL (4.0-10.0)
[2019-06-27 06:59] LABS: ALBUMIN 3.1 GM/DL (3.2-5.2); ALT/SGPT 18 U/L (12-78); BILIRUBIN,DIRECT < 0.1 MG/DL (0.0-0.2); BILIRUBIN,TOTAL 0.2 MG/DL (0.2-1.0); BLOOD UREA NITROGEN 20 MG/DL (7-18); CALCIUM LEVEL 8.7 MG/DL (8.5-10.1); CARBON DIOXIDE LEVEL 26 MEQ/L (21-32); CHLORIDE LEVEL 107 MEQ/L (98-107); GLOMERULAR FILTRATION RATE 50.4 (>51); GLUCOSE, FASTING 140 MG/DL (70-100); PHOSPHORUS LEVEL 3.2 MG/DL (2.5-4.9); SODIUM LEVEL 141 MEQ/L (136-145); TOTAL PROTEIN 6.7 GM/DL (6.4-8.2)
[2019-06-27] MEDS: ENOXAPARIN 40 MG/0.4 ML SYRINGE (J1650) SC SCH (08:13)
[2019-06-27] MEDS: DIVALPROEX 500MG *ER* TAB PO SCH ×2 (08:13→22:15)
[2019-06-27] MEDS: BACLOFEN 10 MG TAB PO SCH ×3 (08:14→22:13)
[2019-06-27] MEDS: ATORVASTATIN 20 MG TAB PO SCH (08:14)
[2019-06-27] MEDS: POTASSIUM CHLORIDE 10 MEQ SR TABLET PO SCH (08:14)
[2019-06-27] MEDS: PREGABALIN 100 MG CAP (LYRICA) PO SCH ×2 (08:14→22:16)
[2019-06-27] MEDS: ACYCLOVIR 200 MG CAPSULE PO SCH ×2 (08:15→22:15)
[2019-06-27] MEDS: AMANTADINE 100 MG CAP PO SCH ×2 (08:15→22:13)
[2019-06-27] MEDS: ARIPiprazole 2 MG TAB PO SCH (08:15)
[2019-06-27] MEDS: levETIRAcetam 250MG TABLET (KEPPRA) PO SCH ×2 (08:15→22:14)
[2019-06-27] MEDS: MELOXICAM (MOBIC) 7.5 MG TAB PO SCH (08:15)
[2019-06-27] MEDS: DULoxetine 30 MG CAP (CYMBALTA) PO SCH ×2 (08:16→22:13)
[2019-06-27] MEDS: clonazePAM 1 MG TAB PO SCH ×2 (08:16→22:14)
[2019-06-27] MEDS: NS 1,000 ML IV SCH (08:16)
[2019-06-27] MEDS ORDERED: METOPROLOL SUCC *XL* 25MG TAB (TopROL *XL*) PO SCH (09:00)
[2019-06-27] MEDS: methylPREDNISolone 1,000 MG, VIAL MATE ADAPTER 1 EACH in D5W 250 ML IV SCH (09:57)
[2019-06-27] MEDS: ULTRACET TAB PO PRN ×2 (13:17→17:56)
[2019-06-27 14:00] VITALS: BP 148/75
--- NOTE | 2019-06-27 19:34 | IPNPDOC ---
Text Note Date of Service The patient was seen on 06/27/19. 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 She endorses some pain in her b/l LE which is chronic per her and . No other acute complaints. Objective Vital signs: see below GEN: elderly female, Obese, NAD, resting comfortably, mild slurred/slow speech HEENT: EOMI, MMM, no pallor Cardio: S1/s2 present, RRR Lungs: CTA b/l, good air entry, no wheezing Abd: soft, nt, nd, bowel sounds present, no guarding. 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 There are mild motion artifacts. 2. No evidence of active cervical cord demyelination. 53 y/o F with complex PMH including relapsing multiple sclerosis dx 2005, chronic pain 2/2 MS, anxiety/depression, shingles, obesity (BMI 39), neurogenic bladder s/p Urostomy with recurrent UTIs admitted with likely acute flare of her relapsing multiple sclerosis with empiric treatment for possible UTI and orthostasis. Flare of relapsing multiple sclerosis -Per Neurologist artist relationship manager at [facility] [phone], Dr. Dave, recommendations were to recheck UA, treat for UTI, check MRI cervical spine, and try 2days of solumedrol. Will need to rediscuss with neurologist tomorrow. -Continue IV Solumedrol Generalized weakness -r/o recurrent UTI, UA positive but possible colonization. Urine culture is received by lab, pending. -empiric Levofloxacin 250mg daily - found to be orthostatic with autonomic instabilty. metoprolol discontinued, ivfluids started, and midodrine to be added if needed. -may be due to multiple sclerosis exacerbation,but MRI was negative recently and repeat MRI brain not recommended by her [facility] neurologist PT/OT/ARU screen ordered all activity with assistance. Fall precautions Mood disorder Continue current regimen Seizure disorder with elevated phenytoin level, will hold until within normal levels. awaiting keppra level. Shingles Continue acyclovir Hypothyroidism Continue levothyroxine GERD Continue PPI Obesity Continue medical care Neurogenic bladder status post urostomy Follow-up as an outpatient DVT prophylaxis Lovenox SC Vital Signs Date Time Temp Pulse Resp B/P (MAP) Pulse Ox O2 Delivery O2 Flow Rate FiO2 06/27/19 18:26 16 06/27/19 17:56 16 06/27/19 14:00 97.2 98 16 148/75 (99) 95 06/27/19 13:17 16 06/27/19 06:00 97.9 96 18 138/86 (103) 95 06/26/19 22:00 96.8 93 18 137/79 (98) 95 Intake & Output 06/27/19 06:00 Intake Total 2126 ml Output Total 1400 ml Balance 726 ml Laboratory Tests 06/27/19 01:49: Urine Color YELLOW, Urine Appearance CLOUDYH, Urine pH 6.0, Urine Specific [place] 1.012, Urine Protein NEGATIVE, Urine Glucose (UA) NEGATIVE, Urine Ketones NEGATIVE, Urine Blood 1+H, Urine Nitrite NEGATIVE, Urine Bilirubin NEGATIVE, Urine Urobilinogen 0.2, Urine Leukocyte Esterase 3+H, Urine WBC (Auto) TNTCH, Urine RBC (Auto) 12H, Urine Hyaline Casts (Auto) 0, Urine Bacteria (Auto) 1+H, Urine Squamous Epithelial Cells 0, Urine Sperm (Auto) 06/27/19 06:10: White Blood Count 3.7L, Red Blood Count 4.08, Hemoglobin 9.9L, Hematocrit 30.9L, Mean Corpuscular Volume 75.7L, Mean Corpuscular Hemoglobin 24.3L, Mean Corpuscular Hemoglobin Concent 32.0, Red Cell Distribution Width 14.8H, Platelet Count 222, Nucleated Red Blood Cells % (auto) 0.0, Sodium Level 141, Potassium Level 4.0, Chloride Level 107, Carbon Dioxide Level 26, Anion Gap 8, Blood Urea Nitrogen 20H, Creatinine 1.20, Glomerular Filtration Rate 50.4L, Fasting Glucose 140H, Calcium Level 8.7, Phosphorus Level 3.2, Aspartate Amino Transf (AST/SGOT) 12, Alanine Aminotransferase (ALT/SGPT) 18, Alkaline Phosphatase 197H, Total Bilirubin 0.2, Direct Bilirubin < 0.1, Ammonia 33H, Total Protein 6.7, Albumin 3.1L, Albumin/Globulin Ratio 0.86L Current Medications Medications (Trade) Dose Ordered Sig/Felix Route PRN Reason Start Time Stop Time Status Last Admin Dose Admin Acyclovir (Zovirax) 400 mg BID PO 06/26/19 21:00 06/27/19 08:15 400 MG Amantadine HCl (Symmetrel) 100 mg BID PO 06/26/19 21:00 06/27/19 08:15 100 MG Aripiprazole (AbiLIFY) 2 mg DAILY PO 06/27/19 09:00 06/27/19 08:15 2 MG Aspirin (Ecotrin) 81 mg QHS PO 06/26/19 21:00 06/26/19 20:55 81 MG Atorvastatin Calcium (Lipitor) 40 mg DAILY PO 06/27/19 09:00 06/27/19 08:14 40 MG Baclofen (Lioresal) 10 mg TID PO 06/26/19 21:00 06/27/19 15:29 10 MG Clonazepam (KlonoPIN) 1 mg BID PO 06/26/19 21:00 06/27/19 08:16 1 MG Divalproex Sodium (Depakote Er) 500 mg BID PO 06/26/19 21:00 06/27/19 08:13 500 MG Duloxetine HCl (Cymbalta) 60 mg BID PO 06/26/19 21:00 06/27/19 08:16 60 MG Enoxaparin Sodium (Lovenox) 40 mg DAILY SC 06/27/19 09:00 06/27/19 08:13 40 MG Levetiracetam (Keppra) 500 mg BID PO 06/26/19 21:00 06/27/19 08:15 500 MG Levofloxacin (Levaquin) 250 mg DAILY@0600 PO 06/27/19 06:00 06/27/19 06:07 250 MG Levothyroxine Sodium (Synthroid) 50 mcg QAM@0600 PO 06/27/19 06:00 06/27/19 06:07 50 MCG Meloxicam (Mobic) 15 mg DAILY PO 06/27/19 09:00 06/27/19 08:15 15 MG Methylprednisolone 1000 mg/IV Miscellaneous Supplies 1 each/ Dextrose 266 ml @ 266 mls/hr DAILY IV 06/26/19 09:00 06/27/19 09:57 266 MLS/HR Potassium Chloride (Micro-K Extencaps) 10 meq DAILY PO 06/27/19 09:00 06/27/19 08:14 10 MEQ Pregabalin (Lyrica) 300 mg BID PO 06/26/19 21:00 06/27/19 08:14 300 MG Senna (Senokot) 2 tab QHS PO 06/26/19 21:00 06/26/19 20:56 2 TAB Tramadol/ Acetaminophen (Ultracet 37.5/ 325 Mg) 1 tab Q4HP PRN PO PAIN OR DISCOMFORT 06/27/19 13:00 06/27/19 17:56 1 TAB Trazodone HCl (Desyrel) 150 mg QHS PO 06/26/19 21:00 06/26/19 20:55 150 MG VS,Fishbone, I+O VS, Fishbone, I+O Laboratory Tests 06/27/19 06:10 Red Blood Count 4.08, Mean Corpuscular Volume 75.7 L, Mean Corpuscular Hemoglobin 24.3 L, Mean Corpuscular Hemoglobin Concent 32.0, Red Cell Distribution Width 14.8 H Vital Signs Date Time Temp Pulse Resp B/P (MAP) Pulse Ox O2 Delivery O2 Flow Rate FiO2 06/27/19 18:26 16 06/27/19 14:00 97.2 98 148/75 (99) 95 06/26/19 18:00 Room Air I&O- Last 24 Hours up to 6 AM 06/27/19 06:00 Intake Total 2126 ml Output Total 1400 ml Balance 726 ml AICHA LOPES MD Jun 27, 2019 19:34
[2019-06-27 22:00] VITALS: BP 155/90
[2019-06-27] MEDS: SENNA 8.6 MG TAB (SENOKOT) PO SCH (22:14)
[2019-06-27] MEDS: hydrOXYzine 50 MG TAB PO SCH (22:14)
[2019-06-27] MEDS: traZODone 50 MG TAB PO SCH (22:15)
[2019-06-27] MEDS: ASPIRIN 81 MG ENTERIC TAB PO SCH (22:15)
[2019-06-27] MEDS: PHENYTOIN ER 100 MG CAP PO SCH (22:16)
[2019-06-27] MEDS: SODIUM CHLORIDE 0.9% INJ 10 ML SYR IV PRN (22:17)
[2019-06-28] MEDS: LEVOTHYROXINE 50MCG TABLET (0.05MG) PO SCH (05:23)
[2019-06-28] MEDS: LevoFLOXacin 250 MG TABLET PO SCH (05:24)
[2019-06-28] MEDS: SODIUM CHLORIDE 0.9% INJ 10 ML SYR IV PRN (05:30)
[2019-06-28 05:56] LABS: HEMATOCRIT 27.2 % (36.0-47.0); HEMOGLOBIN 8.8 g/dl (12.0-15.5); MEAN CORPUSCULAR HEMOGLOBIN 24.8 pg (27.0-33.0); MEAN CORPUSCULAR HGB CONC 32.4 g/dl (32.0-36.5); MEAN CORPUSCULAR VOLUME 76.6 fl (80.0-96.0); PLATELET COUNT, AUTOMATED 197 10^3/uL (150-450); RED BLOOD COUNT 3.55 10^6/uL (4.00-5.40); WHITE BLOOD COUNT 5.3 10^3/uL (4.0-10.0)
[2019-06-28 06:00] VITALS: BP 147/85
[2019-06-28 06:59] LABS: ALBUMIN 2.8 GM/DL (3.2-5.2); ALT/SGPT 17 U/L (12-78); BILIRUBIN,TOTAL 0.1 MG/DL (0.2-1.0); BLOOD UREA NITROGEN 17 MG/DL (7-18); CALCIUM LEVEL 8.1 MG/DL (8.5-10.1); CARBON DIOXIDE LEVEL 29 MEQ/L (21-32); CHLORIDE LEVEL 108 MEQ/L (98-107); GLOMERULAR FILTRATION RATE > 60.0 (>51); GLUCOSE, FASTING 69 MG/DL (70-100); PHENYTOIN (DILANTIN) 18.8 UG/ML (10.0-20.0); POTASSIUM SERUM 3.4 MEQ/L (3.5-5.1); SODIUM LEVEL 143 MEQ/L (136-145); TOTAL PROTEIN 6.2 GM/DL (6.4-8.2)
[2019-06-28] MEDS: clonazePAM 1 MG TAB PO SCH ×2 (09:39→21:09)
[2019-06-28] MEDS: AMANTADINE 100 MG CAP PO SCH ×2 (09:39→21:09)
[2019-06-28] MEDS: DIVALPROEX 500MG *ER* TAB PO SCH ×2 (09:39→21:10)
[2019-06-28] MEDS: OMEPRAZOLE 20 MG CAP PO SCH (09:39)
[2019-06-28] MEDS: hydrOXYzine 50 MG TAB PO SCH ×2 (09:39→21:11)
[2019-06-28] MEDS: PREGABALIN 100 MG CAP (LYRICA) PO SCH ×2 (09:39→21:09)
[2019-06-28] MEDS: POTASSIUM CHLORIDE 10 MEQ SR TABLET PO SCH (09:40)
[2019-06-28] MEDS: ARIPiprazole 2 MG TAB PO SCH (09:40)
[2019-06-28] MEDS: ACYCLOVIR 200 MG CAPSULE PO SCH ×2 (09:40→21:10)
[2019-06-28] MEDS: ATORVASTATIN 20 MG TAB PO SCH (09:40)
[2019-06-28] MEDS: MELOXICAM (MOBIC) 7.5 MG TAB PO SCH (09:40)
[2019-06-28] MEDS: levETIRAcetam 250MG TABLET (KEPPRA) PO SCH ×2 (09:40→21:10)
[2019-06-28] MEDS: DULoxetine 30 MG CAP (CYMBALTA) PO SCH ×2 (09:40→21:10)
[2019-06-28] MEDS: BACLOFEN 10 MG TAB PO SCH ×3 (09:41→21:09)
[2019-06-28] MEDS: ENOXAPARIN 40 MG/0.4 ML SYRINGE (J1650) SC SCH (09:41)
[2019-06-28] MEDS: methylPREDNISolone 1,000 MG, VIAL MATE ADAPTER 1 EACH in D5W 250 ML IV SCH (09:42)
[2019-06-28] MEDS: SODIUM CHLORIDE 0.9% INJ 10 ML SYR IV SCH (09:42)
[2019-06-28] MEDS: MEROPENEM INJ 1 GM in APPROPRIATE DILUENT 1 EA IV SCH ×2 (11:19→17:51)
[2019-06-28] MEDS: ULTRACET TAB PO PRN (13:54)
[2019-06-28 14:00] VITALS: BP 157/84
[2019-06-28] MEDS ORDERED: NYSTATIN 100,000 UNITS/GM TOPICAL PWD 15 GM TOP PRN (18:00)
--- NOTE | 2019-06-28 19:34 | IPNPDOC ---
Date Seen The patient was seen on 06/28/19. Progress Note Subjective: 53 yo female admitted for MS flare with generalized weakness . Today patient complain of diffuse body aches but more on the right side. She denied fever , chills , chest pain or sob . Vitals - stable labs reviewed PHYSICAL EXAMINATION Gen: NAD, looks chronically ill HEENT: normocephalic, atraumatic, no discharge from ears or nose, no oropharyngeal erythema or exudate, neck is supple, CVS: RRR, normal S1n S2, no murmur, rubs, or gallops, no edema, no jvd Resp: LCTAB, no rhonchi, wheezes or crackles Abd : soft nontender, normal bowel sounds, no rebound tenderness or guarding , right sided urostomy in place - draining clear urine MSK: no swelling, generalized weakness, limited rom yunier on the right, Neuro: AOAx3, no confusion, slurred speech - chronic, right sided weakness - acute on chronic , requires assistance to sit and stand Psych: normal mood and affect, good judgment Assessment and plan 53 y/o F with complex PMH including relapsing multiple sclerosis dx 2005, chronic pain 2/2 MS, anxiety/depression, shingles, obesity (BMI 39), neurogenic bladder s/p Urostomy with recurrent UTIs admitted with likely acute flare of her relapsing multiple sclerosis 2/2 UTI . Flare of relapsing multiple sclerosis with generalized weakness possibly due to UTI -Neurologist sunday school missionary at [facility] [phone], Dr. Dave, - was consulted on admission -will call for f/u tomorrow - called late today, no ans -Continue IV Solumedrol -UA consistent with UTI -Ucx - resistant to levaquin , started meropenen -dc Levofloxacin 250mg daily -gi PPX PT/OT/ARU screen ordered all activity with assistance. Fall precautions Patient and with like short term rehab before going home Mood disorder Continue current regimen Seizure disorder with elevated phenytoin level, will hold until within normal levels. awaiting keppra level. f/u valproic acid in AM as meropenen can decrease the level Shingles Continue acyclovir Hypothyroidism Continue levothyroxine GERD Continue PPI Obesity Continue medical care Neurogenic bladder status post urostomy Follow-up as an outpatient DVT prophylaxis Lovenox SC VS, I&O, 24H, Fishbone Vital Signs/I&O Vital Signs Date Time Temp Pulse Resp B/P (MAP) Pulse Ox O2 Delivery O2 Flow Rate FiO2 06/28/19 14:50 18 06/28/19 14:00 97.2 94 157/84 (108) 93 06/26/19 18:00 Room Air I&O- Last 24 Hours up to 6 AM 06/28/19 05:59 Intake Total 1937 ml Output Total 2100 ml Balance -163 ml Laboratory Data 24H LABS Laboratory Tests 2 06/28/19 05:38: Nucleated Red Blood Cells % (auto) 0.0, Anion Gap 6L, Glomerular Filtration Rate > 60.0, Blood Urea Nitrogen 17, Creatinine 1.00, Sodium Level 143, Potassium Level 3.4L, Chloride Level 108H, Carbon Dioxide Level 29, Calcium Level 8.1L, Aspartate Amino Transf (AST/SGOT) 8, Alanine Aminotransferase (ALT/SGPT) 17, Alkaline Phosphatase 158H, Total Bilirubin 0.1L, Total Protein 6.2L, Albumin 2.8L, Albumin/Globulin Ratio 0.82L, Phenytoin (Dilantin) Level 18.8 CBC/BMP Laboratory Tests 06/28/19 05:38 Red Blood Count 3.55 L, Mean Corpuscular Volume 76.6 L, Mean Corpuscular Hemoglobin 24.8 L, Mean Corpuscular Hemoglobin Concent 32.4, Red Cell Distribution Width 14.6 H, Calcium Level 8.1 L, Aspartate Amino Transf (AST/SGOT) 8, Alanine Aminotransferase (ALT/SGPT) 17, Alkaline Phosphatase 158 H, Total Bilirubin 0.1 L, Total Protein 6.2 L, Albumin 2.8 L Microbiology Microbiology 06/27/19 Urine Culture, Received Pending 06/26/19 Urine Culture - Final, Complete Pseudomonas Aeruginosa MITLON PETIT MD Jun 28, 2019 19:30
[2019-06-28] MEDS: SENNA 8.6 MG TAB (SENOKOT) PO SCH (21:09)
[2019-06-28] MEDS: ASPIRIN 81 MG ENTERIC TAB PO SCH (21:11)
[2019-06-28] MEDS: PHENYTOIN ER 100 MG CAP PO SCH (21:12)
[2019-06-28] MEDS: traZODone 50 MG TAB PO SCH (21:12)
[2019-06-28 22:00] VITALS: BP 137/82
[2019-06-29] MEDS: MEROPENEM INJ 1 GM in APPROPRIATE DILUENT 1 EA IV SCH ×2 (02:41→13:49)
[2019-06-29 06:00] VITALS: BP 134/82
[2019-06-29] MEDS: LEVOTHYROXINE 50MCG TABLET (0.05MG) PO SCH (06:05)
[2019-06-29 06:37] LABS: HEMATOCRIT 28.4 % (36.0-47.0); HEMOGLOBIN 9.2 g/dl (12.0-15.5); MEAN CORPUSCULAR HGB CONC 32.4 g/dl (32.0-36.5); MEAN CORPUSCULAR VOLUME 77.2 fl (80.0-96.0); PLATELET COUNT, AUTOMATED 202 10^3/uL (150-450); RED BLOOD COUNT 3.68 10^6/uL (4.00-5.40); WHITE BLOOD COUNT 4.7 10^3/uL (4.0-10.0)
[2019-06-29] MEDS ORDERED: MAGNESIUM CHLORIDE 64 MG TABCR (SLO MAG) PO SCH (09:00)
[2019-06-29 09:06] LABS: BLOOD UREA NITROGEN 16 MG/DL (7-18); CALCIUM LEVEL 5.4 MG/DL (8.5-10.1); CARBON DIOXIDE LEVEL 22 MEQ/L (21-32); CHLORIDE LEVEL 121 MEQ/L (98-107); CREATININE FOR GFR 0.62 MG/DL (0.55-1.30); FERRITIN 3 NG/ML (8-252); FREE T4 0.57 NG/DL (0.76-1.46); GLOMERULAR FILTRATION RATE > 60.0 (>51); GLUCOSE, FASTING 55 MG/DL (70-100); IRON (FE) 13 UG/DL (50-170); MAGNESIUM LEVEL 1.1 MG/DL (1.8-2.4); PERCENT SATURATION 6.3 % (13.2-45.0); PHOSPHORUS LEVEL 2.6 MG/DL (2.5-4.9); POTASSIUM SERUM 2.7 MEQ/L (3.5-5.1); SODIUM LEVEL 150 MEQ/L (136-145); THYROID STIMULATING HORMONE 0.843 uIU/ML (0.358-3.740); TOTAL IRON BINDING CAPACITY 208 UG/DL (250-450)
[2019-06-29 09:16] LABS: FOLATE 1.8 NG/ML (>5.4); VITAMIN B12 LEVEL 196 PG/ML (247-911)
[2019-06-29] MEDS: CALCIUM GLUCONATE 1,000 MG in D5W MINI-BAG PLUS 100 ML IV SCH ×2 (10:35→12:28)
[2019-06-29] MEDS: MORPHINE 4 MG/ML 1ML VIAL/SYRINGE (J2270) IV PRN ×2 (10:37→14:50)
[2019-06-29] MEDS: ENOXAPARIN 40 MG/0.4 ML SYRINGE (J1650) SC SCH (10:38)
[2019-06-29] MEDS: levETIRAcetam 250MG TABLET (KEPPRA) PO SCH (10:39)
[2019-06-29] MEDS: MELOXICAM (MOBIC) 7.5 MG TAB PO SCH (10:39)
[2019-06-29] MEDS: clonazePAM 1 MG TAB PO SCH (10:39)
[2019-06-29] MEDS: ACYCLOVIR 200 MG CAPSULE PO SCH (10:39)
[2019-06-29] MEDS: BACLOFEN 10 MG TAB PO SCH ×2 (10:40→17:07)
[2019-06-29] MEDS: ARIPiprazole 2 MG TAB PO SCH (10:40)
[2019-06-29] MEDS: OMEPRAZOLE 20 MG CAP PO SCH (10:40)
[2019-06-29] MEDS: DULoxetine 30 MG CAP (CYMBALTA) PO SCH (10:40)
[2019-06-29] MEDS: PREGABALIN 100 MG CAP (LYRICA) PO SCH (10:41)
[2019-06-29] MEDS: DIVALPROEX 500MG *ER* TAB PO SCH (10:42)
[2019-06-29] MEDS: hydrOXYzine 50 MG TAB PO SCH (10:42)
[2019-06-29] MEDS: POTASSIUM CHLORIDE 10 MEQ SR TABLET PO SCH (10:43)
[2019-06-29] MEDS: AMANTADINE 100 MG CAP PO SCH (10:43)
[2019-06-29] MEDS: ATORVASTATIN 20 MG TAB PO SCH (10:43)
[2019-06-29] MEDS ORDERED: POTASSIUM PHOSPHATE INJ 15 MMOL in D5W 250 ML IV ONE (12:00)
[2019-06-29] MEDS ORDERED: MAG SULF 1GM/100ML (MAG RUN) 1 GM in APPROPRIATE DILUENT 1 EA IV SCH ×4 (12:00)
[2019-06-29] MEDS: SODIUM CHLORIDE 0.9% INJ 10 ML SYR IV SCH (13:48)
[2019-06-29 14:00] VITALS: BP 124/70
[2019-06-29] MEDS ORDERED: MERO1INJ IV (15:21)
[2019-06-29] MEDS ORDERED: [UNRECOGNIZED DRUG - CODE] IJ (15:25)
[2019-06-29] MEDS: methylPREDNISolone 1,000 MG, VIAL MATE ADAPTER 1 EACH in D5W 250 ML IV SCH (17:55)
== END 2019-06-29 18:15 | DRG 59 ==
LOC: M ED 12:59 → M ED INP 15:55 → M MSPAV 19:19
PROVIDERS: ADMIT General Practice; ATTEND Internal Medicine
DX: G35 Multiple sclerosis (principal); N39.0 Urinary tract infection, site not specified; G89.29 Other chronic pain; F41.9 Anxiety disorder, unspecified; F32.9 Major depressive disorder, single episode, unspecified; E66.9 Obesity, unspecified; E03.9 Hypothyroidism, unspecified; R53.1 Weakness; N31.9 Neuromuscular dysfunction of bladder, unspecified; G40.909 Epilepsy, unspecified, not intractable, without status epilepticus; I10 Essential (primary) hypertension; M43.6 Torticollis; F48.2 Pseudobulbar affect; B96.5 Pseudomonas (aeruginosa) (mallei) (pseudomallei) as the cause of diseases classified elsewhere; B02.9 Zoster without complications; D50.9 Iron deficiency anemia, unspecified; E55.9 Vitamin D deficiency, unspecified; E53.8 Deficiency of other specified B group vitamins; G43.909 Migraine, unspecified, not intractable, without status migrainosus; Z85.828 Personal history of other malignant neoplasm of skin; Z93.6 Other artificial openings of urinary tract status; Z87.891 Personal history of nicotine dependence; Z87.440 Personal history of urinary (tract) infections; Z79.82 Long term (current) use of aspirin; Z68.39 Body mass index [BMI] 39.0-39.9, adult; Z79.899 Other long term (current) drug therapy; Z88.1 Allergy status to other antibiotic agents; Z88.2 Allergy status to sulfonamides; Z88.5 Allergy status to narcotic agent; Z88.6 Allergy status to analgesic agent

== ENCOUNTER 2019-06-29 15:10 | Inpatient (IN) | payer MEDICARE, BC, OTHER ==
[~2019-06-29] VITALS: Ht 154.9 cm; Wt 95.0 kg
[~2019-06-29 15:10] MED LIST changes: +ECOT81TA5 PO
[2019-06-29] MEDS ORDERED: MERO1INJ IV (15:21)
[2019-06-29] MEDS ORDERED: [UNRECOGNIZED DRUG - CODE] IJ (15:25)
[2019-06-29 18:40] VITALS: BP 164/92
[2019-06-29] MEDS ORDERED: BISACODYL 10 MG SUPP PR PRN (19:15)
[2019-06-29] MEDS ORDERED: ALBUTEROL SULFATE 2.5 MG/0.5 ML INH NEB SOLN NEB PRN (19:30)
[2019-06-29] MEDS: MEROPENEM INJ 1 GM in APPROPRIATE DILUENT 1 EA IV SCH (20:08)
[2019-06-29] MEDS ORDERED: SENNA 8.6 MG TAB (SENOKOT) PO SCH (21:00)
[2019-06-29] MEDS ORDERED: PHENYTOIN ER 30 MG CAP PO SCH (21:00)
[2019-06-29] MEDS: ACYCLOVIR 200 MG CAPSULE PO SCH (21:13)
[2019-06-29] MEDS: AMANTADINE 100 MG CAP PO SCH (21:13)
[2019-06-29] MEDS: PHENYTOIN ER 100 MG CAP PO SCH (21:13)
[2019-06-29] MEDS: DIVALPROEX 500MG *ER* TAB PO SCH (21:13)
[2019-06-29] MEDS: levETIRAcetam 250MG TABLET (KEPPRA) PO SCH (21:14)
[2019-06-29] MEDS: PREGABALIN 100 MG CAP (LYRICA) PO SCH (21:14)
[2019-06-29] MEDS: DOCUSATE SODIUM 100 MG CAP PO SCH (21:15)
[2019-06-29] MEDS: traZODone 50 MG TAB PO SCH (21:15)
[2019-06-29] MEDS: clonazePAM 1 MG TAB PO SCH (21:15)
[2019-06-29] MEDS: SENNA 8.6 MG TAB (SENOKOT) PO SCH (21:15)
[2019-06-29] MEDS: BACLOFEN 10 MG TAB PO SCH (21:15)
[2019-06-29] MEDS: OMEPRAZOLE 20 MG CAP PO SCH (21:16)
[2019-06-29] MEDS: DULoxetine 30 MG CAP (CYMBALTA) PO SCH (21:16)
[2019-06-29] MEDS: hydrOXYzine 50 MG TAB PO SCH (21:16)
[2019-06-29] MEDS: MAG SULF 1GM/100ML (MAG RUN) 1 GM in APPROPRIATE DILUENT 1 EA IV SCH ×2 (21:20→22:25)
[2019-06-29 21:57] VITALS: BP 153/81
[2019-06-29] MEDS: SODIUM CHLORIDE 0.9% INJ 10 ML SYR IV PRN (23:26)
[2019-06-30] MEDS: MEROPENEM INJ 1 GM in APPROPRIATE DILUENT 1 EA IV SCH ×3 (04:22→20:47)
[2019-06-30 06:00] VITALS: BP 116/76
[2019-06-30] MEDS: LEVOTHYROXINE 50MCG TABLET (0.05MG) PO SCH (06:04)
[2019-06-30] MEDS: AMANTADINE 100 MG CAP PO SCH ×2 (08:26→20:49)
[2019-06-30] MEDS: MELOXICAM (MOBIC) 7.5 MG TAB PO SCH (08:26)
[2019-06-30] MEDS: PREGABALIN 100 MG CAP (LYRICA) PO SCH ×2 (08:26→20:48)
[2019-06-30] MEDS: ASPIRIN 81 MG CHEW TABLET PO SCH (08:27)
[2019-06-30] MEDS: clonazePAM 1 MG TAB PO SCH ×2 (08:27→20:50)
[2019-06-30] MEDS: DIVALPROEX 500MG *ER* TAB PO SCH ×2 (08:27→20:49)
[2019-06-30] MEDS: ARIPiprazole 2 MG TAB PO SCH (08:27)
[2019-06-30] MEDS: DULoxetine 30 MG CAP (CYMBALTA) PO SCH ×2 (08:27→20:50)
[2019-06-30] MEDS: levETIRAcetam 250MG TABLET (KEPPRA) PO SCH ×2 (08:27→20:50)
[2019-06-30] MEDS: hydrOXYzine 50 MG TAB PO SCH ×2 (08:28→20:50)
[2019-06-30] MEDS: ACYCLOVIR 200 MG CAPSULE PO SCH ×2 (08:28→20:49)
[2019-06-30] MEDS: ATORVASTATIN 20 MG TAB PO SCH (08:28)
[2019-06-30] MEDS: DOCUSATE SODIUM 100 MG CAP PO SCH ×2 (08:28→20:49)
[2019-06-30] MEDS: BACLOFEN 10 MG TAB PO SCH ×3 (08:28→20:49)
[2019-06-30] MEDS: METOPROLOL SUCC *XL* 25MG TAB (TopROL *XL*) PO SCH (08:28)
[2019-06-30] MEDS: OMEPRAZOLE 20 MG CAP PO SCH ×2 (08:29→20:48)
[2019-06-30] MEDS ORDERED: POTASSIUM CHLORIDE 10 MEQ SR TABLET PO SCH (09:00)
[2019-06-30] MEDS: NYSTATIN 100,000 UNITS/GM TOPICAL PWD 15 GM TOP SCH ×2 (09:00→20:47)
[2019-06-30 10:15] LABS: BASO % 0.2 % (0.0-1.0); EOS % 0.2 % (0.0-3.0); HEMATOCRIT 32.5 % (36.0-47.0); HEMOGLOBIN 10.7 g/dl (12.0-15.5); LYMPH # 0.7 10^3/uL (1.5-4.5); LYMPH % 11.6 % (24.0-44.0); MEAN CORPUSCULAR HEMOGLOBIN 24.5 pg (27.0-33.0); MEAN CORPUSCULAR HGB CONC 32.9 g/dl (32.0-36.5); MEAN CORPUSCULAR VOLUME 74.4 fl (80.0-96.0); MONO # 0.4 10^3/uL (0.0-0.8); NEUTROPHILS # 5.1 10^3/uL (1.8-7.7); NEUTROPHILS % 80.4 % (36.0-66.0); PLATELET COUNT, AUTOMATED 327 10^3/uL (150-450); RED BLOOD COUNT 4.37 10^6/uL (4.00-5.40); WHITE BLOOD COUNT 6.3 10^3/uL (4.0-10.0)
--- NOTE | 2019-06-30 10:35 | HPEPDOC ---
Defense Attorney Note DATE OF ADMISSION: 06/29/19 SOURCE OF ADMISSION INFORMATION: [facility] records and patient CHIEF COMPLAINT: MS exacerbation HISTORY OF PRESENT ILLNESS: 53F pmh relapsing-remitting MS diagnosed 2006 with seizure disorder followed by Dr. Avila ([place]), HTN, Torticollis, paresthesias, hyponatremia, anemia, migraines, obesity, pseudobulbar affect, urostomy with chronic UTIs who presented to [facility] ED on June 26, 2019 complaining of weakness, inability to transfer safely from her wheelchair, reporting cloudy urine, with slurred speech, hand weakness, and altered mental status. She was found to have elevated phenytoin level so her dosing was held until it normalized. She was started on IV solumedrol for MS exacerbation and CT cervical spine was ordered to rule out progression of her MS which showed, No evidence of active cervical cord demyelination. Her hand weakness improved the following day, and she was switched from po Levaquin to IV Meropenem for a urine culture that grew pseudomonas. She had a drop in her potassium and calcium levels and was found to have low magnesium as well and given IV supplementation. She was evaluated by therapy and noted to have deficits below her prior level of function in mobility and ADLs and deemed medically appropriate for discharge to ARU on 06/29/19. REVIEW OF SYSTEMS: The following is a completed review of systems and has been reviewed. Review of systems otherwise unremarkable. PAIN: Patient self reports chronic pain in bilateral legs burning in nature EYES: No recent vision changes EARS, NOSE, & THROAT: No throat pain, or dysphagia, or rhinorrhea CARDIOVASCULAR: Denies chest pain or palpitations PULMONARY: Denies shortness of breath GASTROINTESTINAL: Denies constipation/diarrhea GENITOURINARY: +neurogenic bladder with urostomy MUSCULOSKELETAL: generalized weakness, torticollis NEUROLOGICAL:+ MS HEMATOLOGICAL: negative SKIN: urostomy site PSYCHIATRIC: Unremarkable All other review of systems found to be negative. PAST MEDICAL HISTORY: as per HPI PAST SURGICAL HISTORY: Bladder resection, suprapubic catheter, breast reduction, hysterectomy, Mohs for basal cancer, left ulnar implant, bilat wrist surgery, port ALLERGIES: Please see below. MEDICATIONS: Please see below. SOCIAL HISTORY: Lives with , ex-smoker, no ETOH, +marijuana DIET: regular diet PHYSICAL EXAMINATION: VITAL SIGNS: Please see below. GENERAL: Pleasant and cooperative. No acute distress. Slow speech HEENT: PERRL. +horizontal nystagmus, Clear conjunctiva, + glasses CARDIOVASCULAR: Regular rate and rhythm. No murmurs, rubs, or gallops LUNGS: Clear to auscultation bilaterally. No wheezes. No rhonchi ABDOMEN: Soft, nontender, nondistended. Positive bowel sounds. Normal active bowel sounds +urostomy NEUROLOGICAL: Alert and oriented times three. Cranial nerves intact except for CN V decreased sensation to pinprick, sensation to light touch intact throughout all 4 limbs, pin prick diminished throughout all 4 limbs +bilat clonus x 2 beats +torticollis EXTREMITIES: 4\5 strength bilateral upper extremities.4\5 strength right lower extremity. 4/5 strength in left lower extremity. SKIN: urostomy site c/d/i LABORATORY DATA: Please see below. IMAGING:Imaging documentation personally reviewed by record FUNCTIONAL STATUS: Premorbid: Mod-I with RW for household distances, requiring assistance for transfers, dressing, toileting, bathing. On Admission: Requiring minimal assistance for ambulating 4 feet, Max assist for lower body dressing, requiring assistance for functional transfers GOALS: Mod-I with RW for household distances, CG -Supervision for functional transfers, medical optimization, assess for DMEs, caregiver training. ASSESSMENT:53-year-old F with past medical history of MS with seizures who presents status post MS exacerbation in setting of UTI. PLAN: 1. Rehab: PT- work on ambulating short distances Mod-I, stretch/strengthen/preserve ROM of LE OT- improve trunk control, fine motor strength for optimal ADL management, shoulder stabilization exercises, stretch/strengthen/preserve ROM of UE 2. Neuro: progressive-relapsing MS s/p exacerbation in setting of UTI, c/u Solumedrol dosing for flare- c/u Amantadine -seizure d/o c/u Depakote, Keppra, and DIlantin- will recheck Dilantin levels given recent elevation and discuss Depakote and Keppra levels with either Dr. Avila ([phone] Neurologist in [place] who she saw over a year ago) or Dr. Dave (neurologist in [place] who saw her 6 months ago) for assistance in adjusting doses -torticollis- c/u baclofen and stretching 3. Cardiac: pmh HTN c/u metoprolol, medicine consulted to assist in management 4. Resp: encourage incentive spirometry 5. Endo: hypothyroidism, c/u Synthroid 6.Hypokalemia- s/p IV supplementation, c/u on 20meq oral and adjust prn, monitor Mg levels 7. ID: chronic UTIs in setting of urostomy, c/u IV Meropenem, will consider ID consult for prophylaxis recs 8. Pain: c/u Lyrica, Duloxetine, Meloxicam 9. Psych: Trazodone for insomnia, Clonazepam for anxiety and Abilify 10. GI ppx: omeprazole BID, will order FOBT as elevated risk GI bleed while on steroids and meloxicam 11. DVT ppx: heparin and TEDs 12. Dispo: TBD POST ADMISSION PHYSICIAN EVALUATION: Medical and functional status: Description of medical status, medical assessment: As above. Rehabilitation diagnosis and current and prior cold morbid medical conditions as above. Risk of complications and plans to mitigate them as above. Description of functional status current status is as above. Prior status as above. Status compared to preadmission: There are no clinically significant differences between the patient's current status and the information described on the preadmission screening document. Treatment plan anticipated: Treatment plan is as described above. Required disciplines including physical therapy, occupational therapy, others as noted above Intensity of services: 3 hours a day, 6 days a week. Special considerations: There are no specific special or safety considerations that would likely preclude immediate implementation of an intensive rehabilitation program or subsequently influence the plan of care. ATTESTATION: Considering all the information above, it is my best judgment that this patient requires intensive rehabilitation therapy as described above and an inpatient hospital environment due to the complexity of nursing, medical, and rehabilitation needs required by the patient. Furthermore, this patient can reasonably be expected to participate in an benefit from an inpatient rehabilitation stay with an interdisciplinary team approach to the delivery of rehabilitation care under the direction and supervision of rehabilitation physician PROGNOSIS: good ESTIMATED LENGTH OF STAY:12-14 days. PROJECTED DISCHARGE DESTINATION: Home with family support and any durable medical equipment required to increase functional safety and mobility. TIME SPENT COUNSELING AND COORDINATING INITIAL CARE: Greater than 70 minutes. Vital Signs Vital Sign - Last 24 Hours 06/29/19 06/29/19 06/30/19 06/30/19 18:40 21:57 06:00 08:28 Temp 98.0 97.9 97.6 Pulse 102 92 102 102 Resp 18 18 18 B/P (MAP) 164/92 (116) 153/81 (105) 116/76 (89) 116/76 Pulse Ox 95 95 92 Laboratory Data CBC/BMP Labs 24H Laboratory Tests 2 06/30/19 09:57: Home Medications Scheduled Acyclovir (Acyclovir) 400 Mg Tab, 400 MG PO BID, (Reported) Amantadine HCl (Amantadine) 100 Mg Tab, 100 MG PO BID, (Reported) Aripiprazole (Aripiprazole) 2 Mg Tablet, 2 MG PO DAILY, (Reported) Aspirin (Ecotrin) 81 Mg Tablet.dr, 81 MG PO QHS, (Reported) Atorvastatin Calcium (Atorvastatin Calcium) 40 Mg Tablet, 40 MG PO DAILY, (Reported) Baclofen (Baclofen) 10 Mg Tablet, 10 MG PO TID, (Reported) Clonazepam (Clonazepam) 1 Mg Tab, 1 MG PO BID, (Reported) Divalproex Sodium (Depakote ER) 500 Mg Tab.er.24h, 500 MG PO BID, (Reported) Duloxetine Hcl (Duloxetine HCl) 60 Mg Capsule.dr, 60 MG PO BID, (Reported) Hydroxyzine HCl (Hydroxyzine HCl) 50 Mg Tab, 50 MG PO BID, (Reported) Levetiracetam (Keppra) 500 Mg Tablet, 500 MG PO BID, (Reported) Levothyroxine Sodium (Levothyroxine Sodium) 50 Mcg Tablet, 50 MCG PO QAM, (Reported) 30 MINUTES BEFORE BREAKFAST Meloxicam (Meloxicam) 15 Mg Tablet, 15 MG PO DAILY, (Reported) Meropenem (Meropenem) 1 Gm Vial, 1 GM IV Q8H Methylprednisolone Sod Succ (Methylprednisolone Sodium Succ) 1,000 Mg Vial, 1,000 MG IJ DAILY Metoprolol Succinate (Metoprolol Succinate) 25 Mg Tab, 25 MG PO DAILY, (Reported) Omeprazole (Omeprazole) 40 Mg Cap, 40 MG PO BID, (Reported) Phenytoin Sodium Extended (Dilantin) 100 Mg Capsule, 500 MG PO QHS, (Reported) Potassium Chloride (Potassium Chloride) 10 Meq Tab.er.prt, 10 MEQ PO DAILY, (Reported) Pregabalin (Lyrica) 100 Mg Capsule, 300 MG PO BID, (Reported) Senna (Senna Lax) 8.6 Mg Tab, 2 TAB PO QHS, (Reported) Trazodone HCl (Trazodone HCl) 150 Mg Tablet, 150 MG PO QHS, (Reported) Scheduled PRN Albuterol Sulfate (Ventolin Hfa) 108 Mcg/Act Aer, 2 PUFFS INH Q4H PRN for SHORTNESS OF BREATH, (Reported) Bisacodyl (Bisacodyl) 10 Mg Sup, 10 MG KS DAILY PRN for CONSTIPATION, (Reported) Lactulose (Lactulose) 10 Gm/15 Ml Deborah, 30 ML PO DAILY PRN for CONSTIPATION, (Reported) Mometasone Furoate (Asmanex Hfa) 100 Mcg/Act Aer, 1 PUFF INH QPM PRN for ASTHMA, (Reported) Nystatin (Nystatin) 15 Gm Cream..g., 1 DOSE TOP DAILY PRN for RASH, (Reported) APPLIES TO UROSTOMY Promethazine HCl (Promethazine HCl) 25 Mg Tab, 25 MG PO Q4H PRN for NAUSEA, (Reported) Allergies Coded Allergies: Cephalosporins (Verified Allergy, Mild, rash, 04/27/19) Sulfa (Sulfonamide Antibiotics) (Verified Allergy, Mild, itchy, 04/27/19) oxycodone (Verified Allergy, Mild, itchy, 04/27/19) hydrocodone (Verified Adverse Reaction, Intermediate, chest pain, 04/27/19) acetaminophen (Verified Adverse Reaction, Mild, NAUSEA, 04/27/19) A-FIB/CHADSVASC A-FIB History Current/History of A-Fib/PAF?: No MARYBETH KERN MD Jun 30, 2019 10:35
[2019-06-30 10:41] LABS: CREATININE FOR GFR 1.18 MG/DL (0.55-1.30); GLOMERULAR FILTRATION RATE 51.4 (>51); MAGNESIUM LEVEL 2.4 MG/DL (1.8-2.4); POTASSIUM SERUM 3.5 MEQ/L (3.5-5.1)
--- NOTE | 2019-06-30 10:45 | REP ---
Clinical: Trauma/fall . Technique: AP, lateral, bilateral oblique views right ankle . Findings: No acute fracture or dislocation. Skeletal structures and joint spaces are intact and normal. Ankle mortise appears stable. No subcutaneous emphysema or radiodense foreign body. Impression: No acute fracture dislocation. Electronically Signed by Efe Tovar MD 06/30/2019 10:36 A
--- NOTE | 2019-06-30 10:46 | REP ---
Clinical: Trauma. Technique: AP, lateral, bilateral oblique views right foot . Findings: The osseous structures and joint spaces are intact and normal. There is no evidence for acute fracture or dislocation. Surrounding soft tissues are unremarkable. No subcutaneous emphysema or radiodense foreign body. Impression: No acute fracture or dislocation. Electronically Signed by Efe Tovar MD 06/30/2019 10:37 A
[2019-06-30] MEDS: HEPARIN SOD (PORCINE) 5000 UNITS/ML VIAL SQ SCH ×2 (12:15→20:46)
[2019-06-30] MEDS: SODIUM CHLORIDE 0.9% INJ 10 ML SYR IV SCH (12:16)
[2019-06-30 14:00] VITALS: BP 134/82
[2019-06-30] MEDS ORDERED: methylPREDNISolone 1,000 MG, VIAL MATE ADAPTER 1 EACH in D5W 250 ML IV ONE (16:00)
[2019-06-30] MEDS: SODIUM CHLORIDE 0.9% INJ 10 ML SYR IV PRN ×2 (17:29→20:47)
[2019-06-30] MEDS: PHENYTOIN ER 100 MG CAP PO SCH (20:48)
[2019-06-30] MEDS: traZODone 50 MG TAB PO SCH (20:48)
[2019-06-30] MEDS: SENNA 8.6 MG TAB (SENOKOT) PO SCH (20:50)
[2019-06-30 21:00] VITALS: BP 144/82
[2019-07-01] MEDS: ULTRACET TAB PO PRN ×3 (03:32→20:04)
[2019-07-01] MEDS: SODIUM CHLORIDE 0.9% INJ 10 ML SYR IV PRN ×2 (04:53→21:00)
[2019-07-01] MEDS: MEROPENEM INJ 1 GM in APPROPRIATE DILUENT 1 EA IV SCH ×3 (04:53→20:59)
[2019-07-01 06:00] VITALS: BP 113/55
[2019-07-01] MEDS: LEVOTHYROXINE 50MCG TABLET (0.05MG) PO SCH (06:17)
[2019-07-01 07:05] LABS: BLOOD UREA NITROGEN 22 MG/DL (7-18); CALCIUM LEVEL 8.4 MG/DL (8.5-10.1); CARBON DIOXIDE LEVEL 31 MEQ/L (21-32); CHLORIDE LEVEL 105 MEQ/L (98-107); CREATININE FOR GFR 0.98 MG/DL (0.55-1.30); GLOMERULAR FILTRATION RATE > 60.0 (>51); GLUCOSE, FASTING 77 MG/DL (70-100); POTASSIUM SERUM 4.1 MEQ/L (3.5-5.1); SODIUM LEVEL 141 MEQ/L (136-145)
[2019-07-01] MEDS: clonazePAM 1 MG TAB PO SCH ×2 (09:19→21:02)
[2019-07-01] MEDS: HEPARIN SOD (PORCINE) 5000 UNITS/ML VIAL SQ SCH ×2 (09:19→21:00)
[2019-07-01] MEDS: ASPIRIN 81 MG CHEW TABLET PO SCH (09:19)
[2019-07-01] MEDS: levETIRAcetam 250MG TABLET (KEPPRA) PO SCH ×2 (09:20→21:01)
[2019-07-01] MEDS: METOPROLOL SUCC *XL* 25MG TAB (TopROL *XL*) PO SCH (09:20)
[2019-07-01] MEDS: DIVALPROEX 500MG *ER* TAB PO SCH ×2 (09:20→21:02)
[2019-07-01] MEDS: DULoxetine 30 MG CAP (CYMBALTA) PO SCH ×2 (09:20→21:02)
[2019-07-01] MEDS: POTASSIUM CHLORIDE 10 MEQ SR TABLET PO SCH (09:21)
[2019-07-01] MEDS: DOCUSATE SODIUM 100 MG CAP PO SCH ×2 (09:21→21:02)
[2019-07-01] MEDS: PREGABALIN 100 MG CAP (LYRICA) PO SCH ×2 (09:21→21:01)
[2019-07-01] MEDS: OMEPRAZOLE 20 MG CAP PO SCH ×2 (09:21→21:02)
[2019-07-01] MEDS: ATORVASTATIN 20 MG TAB PO SCH (09:21)
[2019-07-01] MEDS: hydrOXYzine 50 MG TAB PO SCH ×2 (09:21→21:01)
[2019-07-01] MEDS: ARIPiprazole 2 MG TAB PO SCH (09:22)
[2019-07-01] MEDS: AMANTADINE 100 MG CAP PO SCH ×2 (09:22→21:01)
[2019-07-01] MEDS: ACYCLOVIR 200 MG CAPSULE PO SCH ×2 (09:22→21:01)
[2019-07-01] MEDS: MELOXICAM (MOBIC) 7.5 MG TAB PO SCH (09:22)
[2019-07-01] MEDS: BACLOFEN 10 MG TAB PO SCH ×3 (09:22→21:02)
[2019-07-01] MEDS: NYSTATIN 100,000 UNITS/GM TOPICAL PWD 15 GM TOP SCH ×2 (09:23→21:02)
[2019-07-01] MEDS: SODIUM CHLORIDE 0.9% INJ 10 ML SYR IV SCH (12:03)
[2019-07-01 14:22] VITALS: BP 133/60
[2019-07-01] MEDS ORDERED: LACTULOSE 20 GM/30 ML SYRUP UD PO PRN (16:00)
[2019-07-01] MEDS: ANALGESIC BALM CRM 120 GM TOP SCH ×2 (16:09→21:00)
--- NOTE | 2019-07-01 16:46 | CR.PDOC ---
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 She was admitted for UTI from 06/08/19-06/21/19 and was well until a day after she returned home. She was re-admitted June 26 to June 29. Per the , she could not stand on her own, feed herself as she could not grab her utensils and and glass, with her legs feeling "bouncy". She has remained on the first floor since being home. She admits to having cloudy sarah colored urine from her urostomy, without fever, chills,or flank pain. has also noted slowed speech, expressive aphasia taking longer to find the words to say but appropriate. In the ER she was afebrile no white count, on levaquin from previous, elevated ammonia level and phenytoin level, and orthostatic. After speaking with her neurologist religion instructor at [facility] [phone], Dr. Dave, recommendations were to recheck UA, treat for UTI, check MRI cervical spine, and try 2days of solumedrol. She was initially treated with levaquin but urine cx: pseudomonas, and was then switched to IV meropenem. After medically cleared, pt was transferred to ARU on June 29 for rehab. PAST MEDICAL HISTORY: MS (RELAPSING)- DR FRANSISCO GALLEGOS (NEURO) IN [facility] SEIZURE DISORDER - DR FRANSISCO GALLEGOS (NEURO) IN [facility] NEUROGENIC BLADDER/ NEUROGENIC BOWEL - DR ADAMS (UROLOGY) IN [facility] HTN TORTICOLLIS- DR FRANSISCO GALLEGOS (NEURO) IN [facility] PSEUDOBULBAR AFFECT- DR FRANSISCO GALLEGOS (NEURO) IN [facility] PARESTHESIAS HYPONATREMIA SECONDARY TO OXCARBAZINE MULTI-DERMAL SHINGLES SECONDARY TO IMMUNOSUPPRESSION MICROCYTIC ANEMIA B12 DEFICIENCY VITAMIN D DEFICIENCY MIGRAINES OBESITY; SLEEP STUDY WITH DR. JIMENEZ IN [place], [place]. NO SLEEP APNEA PSEUDOBULBAR AFFECT HOME MEDICATIONS: PLS SEE BELOW ALLERGIES: PLS SEE BELOW PAST SURGICAL HISTORY: 1. Breast reduction surgery 2. bilateral wrist surgery.. 3. Bladder resection 4. Hysterectomy 5. Tubal ligation 6. Mohs surgery for basal cancer 7. Port placement 8. Left ulnar implant. Social History Lives with: , Employment: Not working, Tobacco use: Former smoker 45-pa ck-years. ETOH: Denies, Illicit drug use: Occasional THC use, Tattoos done unprofessionally: Denies, CODE STATUS: Full code Review of Systems Other systems 10 point review of systems negative unless otherwise specified in HPI. Physical Examination VITALS: PLS SEE BELOW General Exam: awake alert oriented to self, place, and time. slow to speak, but appropriate. no slurring of speech no word salad. no respiratory distress or use of accessory respiratory muscles. ENT Exam: face symmetric tongue midline Atraumatic, Mucous membr. moist/pink no cervical LAD or thyromegaly Chest Exam: Clear to auscultation, Normal air movement. AEBE no wheezing rales or rhonchi Heart Exam: Rate Normal, Normal S1, Normal S2 RRR Abdomen Exam: obese NT nD Soft, Other (positive for urostomy tube-concentrated orange colored urine Extremity Exam: no cyanosis or clubbing. (+) edema Neurologic: 4/5 strength b/l LE, decreased medieval english literature professor bilateral hands awake alert oriented to self, place, and time. slow to speak, but appropriate. no slurring of speech no word salad.fluent speech no dysmetria on finger to nose testing. gait not tested. LABORATORY DATA, IMAGING STUDIES, MICROBIOLOGY: PLS SEE BELOW MR Cervical Spine Without and With Contrast EXAM DATE/TIME: 06/26/2019 4:48 PM CLINICAL HISTORY: 53 years old, female; Condition or disease; Other: Ms; Additional info: Multiple sclerosis b/l hand weakness TECHNIQUE: Imaging protocol: Multiplanar magnetic resonance images of the cervical spine without and with intravenous contrast. Contrast material: PROHANCE;Contrast volume: 9 ml;Contrast route: IV; COMPARISON: MRI-C SPINE W/O FOLL BY WITH 06/28/2013 9:29 AM FINDINGS: Vertebrae: Straightening of the normal cervical lordosis may be positional or due to muscle spasm. No acute fracture seen. Spinal cord: No T2 hyperintense lesions identified within the cervical cord. No abnormal cord enhancement. There is disc desiccation throughout. Disc height loss and spondylosis is mild at C5-6, as before. C2-C3: No significant interval change. No stenoses. C3-C4: No significant interval change. No stenoses. C4-C5: No significant interval change. No stenoses. C5-C6: No significant interval change. Mild disc osteophyte complex does not contribute to central spinal canal stenosis. Mild uncovertebral and facet arthropathy without contribution to significant foraminal stenoses. C6-C7: No significant interval change. Mild disc bulge without contribution to central spinal canal stenosis. Right uncovertebral and facet arthropathy causing mild right neural foraminal stenosis C7-T1: No significant interval change. Unremarkable. Soft tissues: Unremarkable. IMPRESSION: 1. There are mild motion artifacts. 2. No evidence of active cervical cord demyelination. 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 She was admitted for UTI from 06/08/19-06/21/19 and was well until a day after she returned home. She was re-admitted June 26 to June 29. Per the , she could not stand on her own, feed herself as she could not grab her utensils and and glass, with her legs feeling "bouncy". She has remained on the first floor since being home. She admits to having cloudy sarah colored urine from her urostomy, without fever, chills,or flank pain. has also noted slowed speech, expressive aphasia taking longer to find the words to say but appropriate. In the ER she was afebrile no white count, on levaquin from previous, elevated ammonia level and phenytoin level, and orthostatic. A fter speaking with her neurologist religion instructor at [facility] [phone], Dr. Dave, recommendations were to recheck UA, treat for UTI, check MRI cervical spine, and try 2days of solumedrol. She was initially treated with levaquin but urine cx: pseudomonas, and was then switched to IV meropenem. After medically cleared, pt was transferred to ARU on June 29 for rehab. Multiple Sclerosis Exacerbation, resolved s/p solumedrol followed by a neurologist at [facility] all activity with assistance. Fall precautions admitted to ARU for rehab needs on Jun 29. Progressive Multiple sclerosis Continue medications as ordered. s/p solumedrol MRI cervical spine: no acute cervical spine demyelination. needs fu with [facility] neurologist at hospital discharge Pseudomonas UTI with urostomy s/p levaquin which the pseudomonas was resistant to. on iv meropenem which could exacerbate seizures. monitor for seizures. Mood disorder Continue current regimen Seizure disorder recheck dilantin, keppra, and depakote levels and adjust accordingly, in light of current merem use for pseudomonas UTI. seizure precautions Shingles Continue acyclovir Hypothyroidism Continue levothyroxine GERD Continue PPI Obesity Continue medical care Neurogenic bladder status post urostomy complicated by recurrent UTI DVT prophylaxis Lovenox SC Vital Signs/I&O Vital Signs Date Time Temp Pulse Resp B/P (MAP) Pulse Ox O2 Delivery O2 Flow Rate FiO2 07/01/19 11:22 20 07/01/19 09:20 80 113/55 07/01/19 06:00 97.4 92 I&O- Last 24 Hours up to 6 AM 07/01/19 06:00 Intake Total 1530 ml Output Total 4450 ml Balance -2920 ml Laboratory Data Labs 24H Laboratory Tests 2 07/01/19 06:28: Anion Gap 5L, Glomerular Filtration Rate > 60.0, Blood Urea Nitrogen 22H, Creatinine 0.98, Sodium Level 141, Potassium Level 4.1, Chloride Level 105, Carbon Dioxide Level 31, Calcium Level 8.4L CBC/BMP Laboratory Tests 07/01/19 06:28 Calcium Level 8.4 L Allergies Coded Allergies: Cephalosporins (Verified Allergy, Mild, rash, 04/27/19) Sulfa (Sulfonamide Antibiotics) (Verified Allergy, Mild, itchy, 04/27/19) oxycodone (Verified Allergy, Mild, itchy, 04/27/19) hydrocodone (Verified Adverse Reaction, Intermediate, chest pain, 04/27/19) acetaminophen (Verified Adverse Reaction, Mild, NAUSEA, 04/27/19) Home Medications Scheduled Acyclovir (Acyclovir) 400 Mg Tab, 400 MG PO BID, (Reported) Amantadine HCl (Amantadine) 100 Mg Tab, 100 MG PO BID, (Reported) Aripiprazole (Aripiprazole) 2 Mg Tablet, 2 MG PO DAILY, (Reported) Aspirin (Ecotrin) 81 Mg Tablet.dr, 81 MG PO QHS, (Reported) Atorvastatin Calcium (Atorvastatin Calcium) 40 Mg Tablet, 40 MG PO DAILY, (Reported) Baclofen (Baclofen) 10 Mg Tablet, 10 MG PO TID, (Reported) Clonazepam (Clonazepam) 1 Mg Tab, 1 MG PO BID, (Reported) Divalproex Sodium (Depakote ER) 500 Mg Tab.er.24h, 500 MG PO BID, (Reported) Duloxetine Hcl (Duloxetine HCl) 60 Mg Capsule.dr, 60 MG PO BID, (Reported) Hydroxyzine HCl (Hydroxyzine HCl) 50 Mg Tab, 50 MG PO BID, (Reported) Levetiracetam (Keppra) 500 Mg Tablet, 500 MG PO BID, (Reported) Levothyroxine Sodium (Levothyroxine Sodium) 50 Mcg Tablet, 50 MCG PO QAM, (Repo rted) 30 MINUTES BEFORE BREAKFAST Meloxicam (Meloxicam) 15 Mg Tablet, 15 MG PO DAILY, (Reported) Meropenem (Meropenem) 1 Gm Vial, 1 GM IV Q8H for 5 Days Methylprednisolone Sod Succ (Methylprednisolone Sodium Succ) 1,000 Mg Vial, 1,000 MG IJ DAILY for 3 Days, #3 Metoprolol Succinate (Metoprolol Succinate) 25 Mg Tab, 25 MG PO DAILY, (Reported) Omeprazole (Omeprazole) 40 Mg Cap, 40 MG PO BID, (Reported) Phenytoin Sodium Extended (Dilantin) 100 Mg Capsule, 500 MG PO QHS, (Reported) Potassium Chloride (Potassium Chloride) 10 Meq Tab.er.prt, 10 MEQ PO DAILY, (Reported) Pregabalin (Lyrica) 100 Mg Capsule, 300 MG PO BID, (Reported) Senna (Senna Lax) 8.6 Mg Tab, 2 TAB PO QHS, (Reported) Trazodone HCl (Trazodone HCl) 150 Mg Tablet, 150 MG PO QHS, (Reported) Scheduled PRN Albuterol Sulfate (Ventolin Hfa) 108 Mcg/Act Aer, 2 PUFFS INH Q4H PRN for SHORTNESS OF BREATH, (Reported) Bisacodyl (Bisacodyl) 10 Mg Sup, 10 MG HI DAILY PRN for CONSTIPATION, (Reported) Lactulose (Lactulose) 10 Gm/15 Ml Deborah, 30 ML PO DAILY PRN for CONSTIPATION, (Reported) Mometasone Furoate (Asmanex Hfa) 100 Mcg/Act Aer, 1 PUFF INH QPM PRN for ASTHMA, (Reported) Nystatin (Nystatin) 15 Gm Cream..g., 1 DOSE TOP DAILY PRN for RASH, (Reported) APPLIES TO UROSTOMY Promethazine HCl (Promethazine HCl) 25 Mg Tab, 25 MG PO Q4H PRN for NAUSEA, (Reported) JEFF GIRON MD Jul 01, 2019 13:53
[2019-07-01 20:00] VITALS: BP 151/87
[2019-07-01] MEDS: PHENYTOIN ER 100 MG CAP PO SCH (21:01)
[2019-07-01] MEDS: SENNA 8.6 MG TAB (SENOKOT) PO SCH (21:01)
[2019-07-01] MEDS: traZODone 50 MG TAB PO SCH (21:01)
[2019-07-02] MEDS: MEROPENEM INJ 1 GM in APPROPRIATE DILUENT 1 EA IV SCH ×3 (04:23→19:57)
[2019-07-02] MEDS: SODIUM CHLORIDE 0.9% INJ 10 ML SYR IV PRN ×2 (04:23→19:57)
[2019-07-02] MEDS: LEVOTHYROXINE 50MCG TABLET (0.05MG) PO SCH (05:54)
[2019-07-02 06:00] VITALS: BP 122/78
[2019-07-02 06:48] LABS: BASO % 0.4 % (0.0-1.0); EOS # 0.2 10^3/uL (0.0-0.50); HEMATOCRIT 32.6 % (36.0-47.0); HEMOGLOBIN 10.6 g/dl (12.0-15.5); LYMPH # 1.1 10^3/uL (1.5-4.5); LYMPH % 21.6 % (24.0-44.0); MEAN CORPUSCULAR HEMOGLOBIN 24.8 pg (27.0-33.0); MEAN CORPUSCULAR HGB CONC 32.5 g/dl (32.0-36.5); MEAN CORPUSCULAR VOLUME 76.3 fl (80.0-96.0); MONO # 0.7 10^3/uL (0.0-0.8); NEUTROPHILS % 60.2 % (36.0-66.0); PLATELET COUNT, AUTOMATED 195 10^3/uL (150-450); RED BLOOD COUNT 4.27 10^6/uL (4.00-5.40)
[2019-07-02 07:08] LABS: ERYTHROCYTE SEDIMENTATION RATE 8 mm/hr (0-30)
[2019-07-02 07:09] LABS: BLOOD UREA NITROGEN 19 MG/DL (7-18); C REACTIVE PROTEIN QUANTITATIV < 0.30 MG/DL (0.00-0.30); CALCIUM LEVEL 8.8 MG/DL (8.5-10.1); CARBON DIOXIDE LEVEL 31 MEQ/L (21-32); CHLORIDE LEVEL 106 MEQ/L (98-107); CREATININE FOR GFR 1.02 MG/DL (0.55-1.30); GLOMERULAR FILTRATION RATE > 60.0 (>51); GLUCOSE, FASTING 75 MG/DL (70-100); PHENYTOIN (DILANTIN) 22.4 UG/ML (10.0-20.0); POTASSIUM SERUM 4.3 MEQ/L (3.5-5.1); SODIUM LEVEL 141 MEQ/L (136-145); VALPROIC ACID (DEPAKOTE) 8.7 UG/ML (50.0-100.0)
[2019-07-02] MEDS: ARIPiprazole 2 MG TAB PO SCH (09:47)
[2019-07-02] MEDS: DULoxetine 30 MG CAP (CYMBALTA) PO SCH ×2 (09:47→20:43)
[2019-07-02] MEDS: PREGABALIN 100 MG CAP (LYRICA) PO SCH ×2 (09:47→20:42)
[2019-07-02] MEDS: HEPARIN SOD (PORCINE) 5000 UNITS/ML VIAL SQ SCH ×2 (09:47→20:44)
[2019-07-02] MEDS: POTASSIUM CHLORIDE 10 MEQ SR TABLET PO SCH (09:48)
[2019-07-02] MEDS: MELOXICAM (MOBIC) 7.5 MG TAB PO SCH (09:48)
[2019-07-02] MEDS: ACYCLOVIR 200 MG CAPSULE PO SCH ×2 (09:48→20:43)
[2019-07-02] MEDS: levETIRAcetam 250MG TABLET (KEPPRA) PO SCH ×2 (09:49→20:42)
[2019-07-02] MEDS: METOPROLOL SUCC *XL* 25MG TAB (TopROL *XL*) PO SCH (09:49)
[2019-07-02] MEDS: BACLOFEN 10 MG TAB PO SCH ×3 (09:49→20:43)
[2019-07-02] MEDS: ATORVASTATIN 20 MG TAB PO SCH (09:49)
[2019-07-02] MEDS: clonazePAM 1 MG TAB PO SCH ×2 (09:49→20:42)
[2019-07-02] MEDS: hydrOXYzine 50 MG TAB PO SCH ×2 (09:49→20:43)
[2019-07-02] MEDS: AMANTADINE 100 MG CAP PO SCH ×2 (09:50→20:43)
[2019-07-02] MEDS: OMEPRAZOLE 20 MG CAP PO SCH ×2 (09:50→20:42)
[2019-07-02] MEDS: ASPIRIN 81 MG CHEW TABLET PO SCH (09:50)
[2019-07-02] MEDS: DIVALPROEX 500MG *ER* TAB PO SCH ×2 (11:40→20:42)
[2019-07-02] MEDS: PROMETHAZINE 25 MG TAB PO PRN (11:40)
[2019-07-02] MEDS: SODIUM CHLORIDE 0.9% INJ 10 ML SYR IV SCH (11:41)
[2019-07-02] MEDS: NYSTATIN 100,000 UNITS/GM TOPICAL PWD 15 GM TOP SCH ×2 (11:41→20:44)
[2019-07-02] MEDS: ANALGESIC BALM CRM 120 GM TOP SCH ×2 (11:42→20:44)
[2019-07-02] MEDS: DOCUSATE SODIUM 100 MG CAP PO SCH ×2 (11:43→20:42)
[2019-07-02 14:00] VITALS: BP 112/68
--- NOTE | 2019-07-02 17:53 | IPNPDOC ---
Text Note Date of Service The patient was seen on 07/02/19. NOTE Valproic acid level was low. I increased valproic acid dosing to 3 times a day and will recheck valproic acid level in 2 days. VS,Fishbone, I+O VS, Fishbone, I+O Laboratory Tests 07/02/19 06:33 Red Blood Count 4.27, Mean Corpuscular Volume 76.3 L, Mean Corpuscular Hemoglobin 24.8 L, Mean Corpuscular Hemoglobin Concent 32.5, Red Cell Distribution Width 14.9 H, Neutrophils (%) (Auto) 60.2, Lymphocytes (%) (Auto) 21.6 L, Monocytes (%) (Auto) 13.0 H, Eosinophils (%) (Auto) 3.0, Basophils (%) (Auto) 0.4, Neutrophils # (Auto) 3.0, Lymphocytes # (Auto) 1.1 L, Monocytes # (Auto) 0.7, Eosinophils # (Auto) 0.2, Basophils # (Auto) 0.0, Calcium Level 8.8 Vital Signs Date Time Temp Pulse Resp B/P (MAP) Pulse Ox O2 Delivery O2 Flow Rate FiO2 07/02/19 09:49 78 122/78 07/02/19 08:00 20 07/02/19 06:00 96.9 94 I&O- Last 24 Hours up to 6 AM 07/02/19 06:00 Intake Total 2660 ml Output Total 3375 ml Balance -715 ml AMINAH PINEDA MD Jul 02, 2019 17:52
[2019-07-02 20:00] VITALS: BP 123/74
[2019-07-02] MEDS: SENNA 8.6 MG TAB (SENOKOT) PO SCH (20:42)
[2019-07-02] MEDS: traZODone 50 MG TAB PO SCH (20:43)
[2019-07-02] MEDS: ULTRACET TAB PO PRN (20:43)
[2019-07-02] MEDS: PHENYTOIN ER 100 MG CAP PO SCH (20:44)
[2019-07-03] MEDS: ULTRACET TAB PO PRN ×2 (02:45→15:12)
[2019-07-03] MEDS: SODIUM CHLORIDE 0.9% INJ 10 ML SYR IV PRN ×3 (04:03→21:32)
[2019-07-03] MEDS: MEROPENEM INJ 1 GM in APPROPRIATE DILUENT 1 EA IV SCH ×3 (04:03→20:53)
[2019-07-03 05:54] LABS: HEMATOCRIT 30.2 % (36.0-47.0); HEMOGLOBIN 9.8 g/dl (12.0-15.5); MEAN CORPUSCULAR HEMOGLOBIN 25.1 pg (27.0-33.0); MEAN CORPUSCULAR HGB CONC 32.5 g/dl (32.0-36.5); MEAN CORPUSCULAR VOLUME 77.4 fl (80.0-96.0); PLATELET COUNT, AUTOMATED 199 10^3/uL (150-450); WHITE BLOOD COUNT 5.8 10^3/uL (4.0-10.0)
[2019-07-03] MEDS: LEVOTHYROXINE 50MCG TABLET (0.05MG) PO SCH (05:56)
[2019-07-03 06:00] VITALS: BP 104/62
[2019-07-03] MEDS: ATORVASTATIN 20 MG TAB PO SCH (08:52)
[2019-07-03] MEDS: AMANTADINE 100 MG CAP PO SCH ×2 (08:52→20:58)
[2019-07-03] MEDS: HEPARIN SOD (PORCINE) 5000 UNITS/ML VIAL SQ SCH ×2 (08:52→20:58)
[2019-07-03] MEDS: DIVALPROEX 500MG *ER* TAB PO SCH ×2 (08:52→21:00)
[2019-07-03] MEDS: OMEPRAZOLE 20 MG CAP PO SCH ×2 (08:53→21:00)
[2019-07-03] MEDS: POTASSIUM CHLORIDE 10 MEQ SR TABLET PO SCH (08:53)
[2019-07-03] MEDS: ACYCLOVIR 200 MG CAPSULE PO SCH ×2 (08:54→20:59)
[2019-07-03] MEDS: levETIRAcetam 250MG TABLET (KEPPRA) PO SCH ×2 (08:54→21:01)
[2019-07-03] MEDS: ASPIRIN 81 MG CHEW TABLET PO SCH (08:54)
[2019-07-03] MEDS: hydrOXYzine 50 MG TAB PO SCH ×2 (08:54→21:00)
[2019-07-03] MEDS: DOCUSATE SODIUM 100 MG CAP PO SCH ×2 (08:54→21:00)
[2019-07-03] MEDS: PREGABALIN 100 MG CAP (LYRICA) PO SCH ×2 (08:54→20:59)
[2019-07-03] MEDS: ARIPiprazole 2 MG TAB PO SCH (08:55)
[2019-07-03] MEDS: clonazePAM 1 MG TAB PO SCH ×2 (08:55→21:00)
[2019-07-03] MEDS: BACLOFEN 10 MG TAB PO SCH ×3 (08:55→21:01)
[2019-07-03] MEDS: DULoxetine 30 MG CAP (CYMBALTA) PO SCH ×2 (08:55→20:59)
[2019-07-03] MEDS: MELOXICAM (MOBIC) 7.5 MG TAB PO SCH (08:55)
[2019-07-03] MEDS: SODIUM CHLORIDE 0.9% INJ 10 ML SYR IV SCH (08:56)
[2019-07-03] MEDS: METOPROLOL SUCC *XL* 25MG TAB (TopROL *XL*) PO SCH (08:56)
[2019-07-03] MEDS: NYSTATIN 100,000 UNITS/GM TOPICAL PWD 15 GM TOP SCH ×2 (08:57→21:02)
[2019-07-03] MEDS: ANALGESIC BALM CRM 120 GM TOP SCH ×2 (08:57→21:01)
--- NOTE | 2019-07-03 12:08 | IPNPDOC ---
Text Note Date of Service The patient was seen on 07/03/19. NOTE Subjective: Has no complaints at this time, denies chest pain, chills, shortness of breath. Denies abdominal pain. Objective GENERAL: NAD SKIN : Warm, dry intact HEENT: Atraumatic, normocephalic, PERRL, moist mucous membrane CARDIOVASCULAR: Regular rate and rhythm, S1S2, no JVD, no edema, distal pulses + palpable RESP: CTAB, no accessory muscle use noted ABDOMEN: BS+ non distended non tender MS: no joint deformities NEURO: Alert and oriented x 3, CN2-12 grossly intact PSYCH: no anxiety or agitation, appropriate mood and affect. A/P Multiple sclerosis -Relapsing type with acute exacerbation -Continued in rehabilitation unit for mobilization and strengthening to return patient to baseline Complicated Urinary tract infection -Positive for Pseudomonas resistant to Levaquin -started on antibiotic therapy with merrem 05/29/19 -Repeat urine culture negative for growth -Completed total 7 days Merrem Morbid obesity, -BMI 40.8 -Therapeutic lifestyle changes Seizure disorder -No seizure activity since admission -Continue seizure precautions -Continue Keppra and Dilantin -follow drug levels of dilantin and valproic acid in the am Hypothyroidism -Continue hormone replacement therapy with Synthroid DVT prophylaxis -Heparin subcutaneous VS,Fishbone, I+O VS, Fishbone, I+O Laboratory Tests 07/03/19 05:40 Red Blood Count 3.90 L, Mean Corpuscular Volume 77.4 L, Mean Corpuscular Hemoglobin 25.1 L, Mean Corpuscular Hemoglobin Concent 32.5, Red Cell Distribution Width 15.2 H Vital Signs Date Time Temp Pulse Resp B/P (MAP) Pulse Ox O2 Delivery O2 Flow Rate FiO2 07/03/19 08:56 60 104/62 07/03/19 06:00 97.3 18 92 I&O- Last 24 Hours up to 6 AM 07/03/19 06:00 Intake Total 2040 ml Output Total 1900 ml Balance 140 ml STEFANO MUÑOZ Jul 03, 2019 12:07
[2019-07-03 14:00] VITALS: BP 124/60
[2019-07-03 20:12] VITALS: BP 116/67
[2019-07-03] MEDS: PHENYTOIN ER 100 MG CAP PO SCH (20:58)
[2019-07-03] MEDS: traZODone 50 MG TAB PO SCH (20:59)
[2019-07-03] MEDS: SENNA 8.6 MG TAB (SENOKOT) PO SCH (20:59)
[2019-07-04] MEDS: MEROPENEM INJ 1 GM in APPROPRIATE DILUENT 1 EA IV SCH ×3 (03:19→21:04)
[2019-07-04 05:35] VITALS: BP 130/78
[2019-07-04] MEDS: LEVOTHYROXINE 50MCG TABLET (0.05MG) PO SCH (05:42)
[2019-07-04 07:26] LABS: VALPROIC ACID (DEPAKOTE) 9.8 UG/ML (50.0-100.0)
[2019-07-04] MEDS: SODIUM CHLORIDE 0.9% INJ 10 ML SYR IV SCH (09:33)
[2019-07-04] MEDS: ACYCLOVIR 200 MG CAPSULE PO SCH ×2 (09:40→21:06)
[2019-07-04] MEDS: BACLOFEN 10 MG TAB PO SCH ×3 (09:40→21:04)
[2019-07-04] MEDS: ASPIRIN 81 MG CHEW TABLET PO SCH (09:40)
[2019-07-04] MEDS: clonazePAM 1 MG TAB PO SCH ×2 (09:41→21:06)
[2019-07-04] MEDS: POTASSIUM CHLORIDE 10 MEQ SR TABLET PO SCH (09:41)
[2019-07-04] MEDS: DIVALPROEX 500MG *ER* TAB PO SCH ×2 (09:41→21:06)
[2019-07-04] MEDS: DULoxetine 30 MG CAP (CYMBALTA) PO SCH ×2 (09:41→21:05)
[2019-07-04] MEDS: DOCUSATE SODIUM 100 MG CAP PO SCH ×2 (09:41→21:13)
[2019-07-04] MEDS: OMEPRAZOLE 20 MG CAP PO SCH ×2 (09:41→21:06)
[2019-07-04] MEDS: ATORVASTATIN 20 MG TAB PO SCH (09:41)
[2019-07-04] MEDS: levETIRAcetam 250MG TABLET (KEPPRA) PO SCH ×2 (09:42→21:05)
[2019-07-04] MEDS: HEPARIN SOD (PORCINE) 5000 UNITS/ML VIAL SQ SCH ×2 (09:42→21:04)
[2019-07-04] MEDS: ARIPiprazole 2 MG TAB PO SCH (09:42)
[2019-07-04] MEDS: PREGABALIN 100 MG CAP (LYRICA) PO SCH ×2 (09:42→21:05)
[2019-07-04] MEDS: MELOXICAM (MOBIC) 7.5 MG TAB PO SCH (09:42)
[2019-07-04] MEDS: AMANTADINE 100 MG CAP PO SCH ×2 (09:42→21:06)
[2019-07-04] MEDS: hydrOXYzine 50 MG TAB PO SCH ×2 (09:42→21:04)
[2019-07-04] MEDS: METOPROLOL SUCC *XL* 25MG TAB (TopROL *XL*) PO SCH (09:42)
[2019-07-04] MEDS: ANALGESIC BALM CRM 120 GM TOP SCH ×2 (09:43→21:07)
[2019-07-04] MEDS: NYSTATIN 100,000 UNITS/GM TOPICAL PWD 15 GM TOP SCH ×2 (09:43→21:07)
[2019-07-04] MEDS: ULTRACET TAB PO PRN ×2 (09:49→15:52)
[2019-07-04] MEDS: SODIUM CHLORIDE 0.9% INJ 10 ML SYR IV PRN ×2 (12:22→21:48)
[2019-07-04 14:00] VITALS: BP 133/72
--- NOTE | 2019-07-04 15:41 | IPNPDOC ---
Text Note Date of Service The patient was seen on 07/04/19. NOTE Subjective: will be changing urostomy tube today. Denies chills or fever, denies chest pain, shortness of breath. Objective GENERAL: NAD SKIN : Warm, dry intact HEENT: Atraumatic, normocephalic, PERRL, moist mucous membrane CARDIOVASCULAR: Regular rate and rhythm, S1S2, no JVD, no edema, distal pulses + palpable RESP: CTAB, no accessory muscle use noted ABDOMEN: BS+ non distended non tender MS: no joint deformities NEURO: Alert and oriented x 3, CN2-12 grossly intact PSYCH: no anxiety or agitation, appropriate mood and affect. A/P Multiple sclerosis -Relapsing type with acute exacerbation -Continued in rehabilitation unit for mobilization and strengthening to return patient to baseline Complicated Urinary tract infection -Positive for Pseudomonas resistant to Levaquin -started on antibiotic therapy with merrem 05/29/19 -Continue meropenem to complete last dose tonight -Primary team plan to consult ID specialist for prophylactic management against recurrent UTI Morbid obesity, -BMI 40.8 -Therapeutic lifestyle changes Seizure disorder -No seizure activity the last 24 hours -Continue seizure precautions -Continue Keppra and Dilantin Migraine headache -Continued on valproic acid -Prescribed by neurology -Neurology follow-up as needed Hypothyroidism -Continue hormone replacement therapy with Synthroid DVT prophylaxis -Heparin subcutaneous VS,Fishbone, I+O VS, Fishbone, I+O Vital Signs Date Time Temp Pulse Resp B/P (MAP) Pulse Ox O2 Delivery O2 Flow Rate FiO2 07/04/19 10:30 18 07/04/19 09:42 77 130/78 07/04/19 05:35 97.5 100 I&O- Last 24 Hours up to 6 AM 07/04/19 05:59 Intake Total 2170 ml Output Total 2550 ml Balance -380 ml STEFANO MUÑOZ [facility] Jul 04, 2019 15:41
--- NOTE | 2019-07-04 16:06 | IPNPDOC ---
PM&R Progress Note DATE OF SERVICE: Jul 03, 2019 [employer] Progress Note Subjective: Patient reports her neck pain is stable and would not like to decrease her baclofen dosing because it makes her legs stiffer. She was encouraged to do isoemetric neck exercises. REVIEW OF SYSTEMS: The following is a completed review of systems and has been reviewed. Review of systems otherwise unremarkable. PAIN: Patient self reports chronic pain in bilateral legs burning in nature EYES: No recent vision changes EARS, NOSE, & THROAT: No throat pain, or dysphagia, or rhinorrhea CARDIOVASCULAR: Denies chest pain or palpitations PULMONARY: Denies shortness of breath GASTROINTESTINAL: Denies constipation/diarrhea GENITOURINARY: +neurogenic bladder with urostomy MUSCULOSKELETAL: generalized weakness, torticollis NEUROLOGICAL:+ MS HEMATOLOGICAL: negative SKIN: urostomy site PSYCHIATRIC: Unremarkable All other review of systems found to be negative. PHYSICAL EXAMINATION: VITAL SIGNS: Please see below. GENERAL: Pleasant and cooperative. No acute distress. Slow speech HEENT: PERRL. +horizontal nystagmus, Clear conjunctiva, + glasses CARDIOVASCULAR: Regular rate and rhythm. No murmurs, rubs, or gallops LUNGS: Clear to auscultation bilaterally. No wheezes. No rhonchi ABDOMEN: Soft, nontender, nondistended. Positive bowel sounds. Normal active bowel sounds +urostomy NEUROLOGICAL: Alert and oriented times three. Cranial nerves intact except for CN V decreased sensation to pinprick, sensation to light touch intact throughout all 4 limbs, pin prick diminished throughout all 4 limbs +bilat clonus x 2 beats +torticollis EXTREMITIES: 4\5 strength bilateral upper extremities.4\5 strength right lower extremity. 4/5 strength in left lower extremity. SKIN: urostomy site c/d/i ASSESSMENT:53-year-old F with past medical history of MS with seizures who prese nts status post MS exacerbation in setting of UTI. PLAN: 1. Rehab: PT- work on ambulating short distances Mod-I, stretch/streng then/preserve ROM of LE OT- improve trunk control, fine motor strength for optimal ADL management, shoulder stabilization exercises, stretch/strengthen/preserve ROM of UE 2. Neuro: progressive-relapsing MS s/p exacerbation in setting of UTI, c/u Solumedrol dosing for flare- c/u Amantadine -seizure d/o c/u Depakote, Keppra, and Dilantin- repeat Dilantin levels 22, discussed case with Dr. Dave in [place] who believes it is ok to keep Dilantin dosing at 500mg qHS, but could consider reducing dosing a little, he states that the low Depakote level is fine as this is for headaches and not to increase dosing, he is comfortable with Keppra levels and to keep dosing as is- will need outpatient f/u -torticollis- c/u baclofen and stretching 3. Cardiac: pmh HTN c/u metoprolol, medicine consulted to assist in management 4. Resp: encourage incentive spirometry 5. Endo: hypothyroidism, c/u Synthroid 6.Hypokalemia- s/p IV supplementation, c/u on 20meq oral and adjust prn, monitor Mg levels 7. ID: chronic UTIs in setting of urostomy, c/u IV Meropenem, will consider ID consult for prophylaxis recs 8. Pain: c/u Lyrica, Duloxetine, Meloxicam 9. Psych: Trazodone for insomnia, Clonazepam for anxiety and Abilify 10. GI ppx: omeprazole BID, FOBT oredered as elevated risk GI bleed while on steroids and meloxicam 11. DVT ppx: heparin and TEDs 12. Dispo: TBD Allergies Coded Allergies: Cephalosporins (Verified Allergy, Mild, rash, 04/27/19) Sulfa (Sulfonamide Antibiotics) (Verified Allergy, Mild, itchy, 04/27/19) oxycodone (Verified Allergy, Mild, itchy, 04/27/19) hydrocodone (Verified Adverse Reaction, Intermediate, chest pain, 04/27/19) acetaminophen (Verified Adverse Reaction, Mild, NAUSEA, 04/27/19) Vital Signs Vital Signs Date Time Temp Pulse Resp B/P (MAP) Pulse Ox O2 Delivery O2 Flow Rate FiO2 07/04/19 10:30 18 07/04/19 09:42 77 130/78 07/04/19 05:35 97.5 100 Laboratory Data Labs 24H Laboratory Tests 2 07/04/19 06:28: Valproic Acid (Depakene) Level 9.8L Microbiology Microbiology 07/01/19 Stool Occult Blood (VANDANA) - Final, Complete Current Medications Current Medications Current Medications Medications (Trade) Dose Ordered Sig/Felix Route PRN Reason Start Time Stop Time Status Last Admin Dose Admin Acyclovir (Zovirax) 400 mg BID PO 06/29/19 21:00 07/04/19 09:40 Albuterol Sulfate (Proventil Neb) 2.5 mg Q6HP PRN NEB SOB/WHEEZING 06/29/19 19:30 Amantadine HCl (Symmetrel) 100 mg BID PO 06/29/19 21:00 07/04/19 09:42 Aripiprazole (AbiLIFY) 2 mg DAILY PO 06/30/19 09:00 07/04/19 09:42 Aspirin (Aspirin Chewable) 81 mg DAILY PO 06/30/19 09:00 07/04/19 09:40 Atorvastatin Calcium (Lipitor) 40 mg DAILY PO 06/30/19 09:00 07/04/19 09:41 Baclofen (Lioresal) 10 mg TID PO 06/29/19 21:00 07/04/19 09:40 Bisacodyl (Dulcolax Suppository) 10 mg DAILYPRN PRN [place] CONSTIPATION 06/29/19 19:15 Clonazepam (KlonoPIN) 1 mg BID PO 06/29/19 21:00 07/04/19 09:41 Divalproex Sodium (Depakote Er) 500 mg BID PO 06/29/19 21:00 07/02/19 17:52 DC 07/02/19 11:40 Divalproex Sodium (Depakote Er) 500 mg BID PO 07/03/19 21:00 07/04/19 09:41 Divalproex Sodium (Depakote Er) 500 mg TID PO 07/02/19 21:00 07/03/19 12:48 DC 07/03/19 08:52 Docusate Sodium (Colace) 100 mg BID PO 06/29/19 21:00 07/04/19 09:41 Duloxetine HCl (Cymbalta) 60 mg BID PO 06/29/19 21:00 07/04/19 09:41 Heparin Sodium (Heparin (Flush)) 500 units ASDIRECTED PRN IV SEE LABEL COMMENTS 06/29/19 19:30 07/04/19 12:22 Heparin Sodium (Heparin (Flush)) 500 units DAILY IV 06/30/19 09:00 07/04/19 09:33 Heparin Sodium (Porcine) (Heparin) 5,000 units Q12H SQ 06/30/19 09:00 07/04/19 09:42 Home Med (Med Rec Complete!) ASDIRECTED XX 06/29/19 18:45 06/29/19 18:45 DC Hydroxyzine HCl (Atarax) 50 mg BID PO 06/29/19 21:00 07/04/19 09:42 Lactulose (Cephulac) 30 ml DAILYPRN PRN PO NO BOWEL MOVEMENT 07/01/19 16:00 Levetiracetam (Keppra) 500 mg BID PO 06/29/19 21:00 07/04/19 09:42 Levothyroxine Sodium (Synthroid) 50 mcg DAILY@06 PO 06/30/19 06:00 07/04/19 05:42 Magnesium Sulfate/ Dextrose 1 gm/IV Miscellaneous Supplies 100 ml @ 100 mls/hr Q1H IV 06/29/19 21:00 06/29/19 22:59 DC 06/29/19 22:25 Meloxicam (Mobic) 15 mg DAILY PO 06/30/19 09:00 07/04/19 09:42 Menthol/Methyl Salicylate (Bengay Cream) bilateral calves BID TOP 07/01/19 09:00 07/04/19 09:43 Meropenem 1 gm/IV Miscellaneous Supplies 50 ml @ 100 mls/hr Q8H IV 06/29/19 20:00 07/04/19 12:21 Metoprolol Succinate (TopROL XL) 25 mg DAILY PO 06/30/19 09:00 07/04/19 09:42 Nystatin (Mycostatin Powder, Nystop) under breasts BID TOP 06/30/19 09:00 07/04/19 09:43 Omeprazole (PriLOSEC) 40 mg BID PO 06/29/19 21:00 07/04/19 09:41 Phenytoin (Dilantin) 500 mg QHS PO 06/29/19 21:00 06/29/19 21:00 DC Phenytoin (Dilantin) 500 mg QHS PO 06/29/19 21:00 07/03/19 20:58 Potassium Chloride (Micro-K Extencaps) 10 meq DAILY PO 06/30/19 09:00 06/30/19 11:33 DC 06/30/19 08:28 Potassium Chloride (Micro-K Extencaps) 20 meq DAILY PO 07/01/19 09:00 07/04/19 09:41 Pregabalin (Lyrica) 300 mg BID PO 06/29/19 21:00 07/04/19 09:42 Promethazine HCl (Phenergan) 25 mg Q4HP PRN PO NAUSEA OR VOMITING 06/29/19 19:30 07/02/19 11:40 Senna (Senokot) 1 tab QHS PO 06/29/19 21:00 06/29/19 21:00 DC Senna (Senokot) 2 tab QHS PO 06/29/19 21:00 07/02/19 20:42 Sodium Chloride (Saline Lock Flush) 10 ml ASDIRECTED PRN IV SEE LABEL COMMENTS 06/29/19 19:30 07/04/19 12:22 Sodium Chloride (Saline Lock Flush) 10 ml DAILY IV 06/30/19 09:00 07/04/19 09:33 Tramadol/ Acetaminophen (Ultracet 37.5/ 325 Mg) 1 tab Q6HP PRN PO PAIN 07/01/19 03:15 07/04/19 09:49 Trazodone HCl (Desyrel) 150 mg QHS PO 06/29/19 21:00 07/03/19 20:59 MARYBETH KERN MD Jul 04, 2019 16:06
--- NOTE | 2019-07-04 16:07 | IPNPDOC ---
PM&R Progress Note DATE OF SERVICE: Jul 04, 2019 Manager Application Development Progress Note Subjective: Patient reporting she feels well and was able to walk 100 feet. REVIEW OF SYSTEMS: The following is a completed review of systems and has been reviewed. Review of systems otherwise unremarkable. PAIN: Patient self reports chronic pain in bilateral legs burning in nature EYES: No recent vision changes EARS, NOSE, & THROAT: No throat pain, or dysphagia, or rhinorrhea CARDIOVASCULAR: Denies chest pain or palpitations PULMONARY: Denies shortness of breath GASTROINTESTINAL: Denies constipation/diarrhea GENITOURINARY: +neurogenic bladder with urostomy MUSCULOSKELETAL: generalized weakness, torticollis NEUROLOGICAL:+ MS HEMATOLOGICAL: negative SKIN: urostomy site PSYCHIATRIC: Unremarkable All other review of systems found to be negative. PHYSICAL EXAMINATION: VITAL SIGNS: Please see below. GENERAL: Pleasant and cooperative. No acute distress. Slow speech HEENT: PERRL. +horizontal nystagmus, Clear conjunctiva, + glasses CARDIOVASCULAR: Regular rate and rhythm. No murmurs, rubs, or gallops LUNGS: Clear to auscultation bilaterally. No wheezes. No rhonchi ABDOMEN: Soft, nontender, nondistended. Positive bowel sounds. Normal active bowel sounds +urostomy NEUROLOGICAL: Alert and oriented times three. Cranial nerves intact except for CN V decreased sensation to pinprick, sensation to light touch intact throughout all 4 limbs, pin prick diminished throughout all 4 limbs +bilat clonus x 2 beats +torticollis EXTREMITIES: 4\5 strength bilateral upper extremities.4\5 strength right lower extremity. 4/5 strength in left lower extremity. SKIN: urostomy site c/d/i ASSESSMENT:53-year-old F with past medical history of MS with seizures who presents status post MS exacerbation in setting of UTI. PLAN: 1. Rehab: PT- work on ambulating short distances Mod-I, stretch/strengthen/preserve ROM of LE OT- improve trunk control, fine motor strength for optimal ADL management, shoulder stabilization exercises, stretch/strengthen/preserve ROM of UE 2. Neuro: progressive-relapsing MS s/p exacerbation in setting of UTI, s/p Solumedrol dosing for flare- c/u Amantadine -seizure d/o c/u Depakote, Keppra, and Dilantin- repeat Dilantin levels 22, di scussed case with Dr. Dave in [place] who believes it is ok to keep Dilantin dosing at 500mg qHS, but could consider reducing dosing a little, he states that the low Depakote level is fine as this is for headaches and not to increase dosing, he is comfortable with Keppra levels and to keep dosing as is- will need outpatient f/u -torticollis- c/u baclofen and stretching 3. Cardiac: pmh HTN c/u metoprolol, medicine consulted to assist in management 4. Resp: encourage incentive spirometry 5. Endo: hypothyroidism, c/u Synthroid 6.Hypokalemia- s/p IV supplementation, c/u on 20meq oral and adjust prn, monitor Mg levels-stable 7. ID: chronic UTIs in setting of urostomy, s/p 7 day course of IV Meropenem, ID consulted today for possible prophylaxis recs 8. Pain: c/u Lyrica, Duloxetine, Meloxicam 9. Psych: Trazodone for insomnia, Clonazepam for anxiety and Abilify 10. GI ppx: omeprazole BID, FOBT negative 11. DVT ppx: heparin and TEDs 12. Dispo: TBD Allergies Coded Allergies: Cephalosporins (Verified Allergy, Mild, rash, 04/27/19) Sulfa (Sulfonamide Antibiotics) (Verified Allergy, Mild, itchy, 04/27/19) oxycodone (Verified Allergy, Mild, itchy, 04/27/19) hydrocodone (Verified Adverse Reaction, Intermediate, chest pain, 04/27/19) acetaminophen (Verified Adverse Reaction, Mild, NAUSEA, 04/27/19) Vital Signs Vital Signs Date Time Temp Pulse Resp B/P (MAP) Pulse Ox O2 Delivery O2 Flow Rate FiO2 07/04/19 10:30 18 07/04/19 09:42 77 130/78 07/04/19 05:35 97.5 100 Laboratory Data Labs 24H Laboratory Tests 2 07/04/19 06:28: Valproic Acid (Depakene) Level 9.8L Microbiology Microbiology 07/01/19 Stool Occult Blood (VANDANA) - Final, Complete Current Medications Current Medications Current Medications Medications (Trade) Dose Ordered Sig/Felix Route PRN Reason Start Time Stop Time Status Last Admin Dose Admin Acyclovir (Zovirax) 400 mg BID PO 06/29/19 21:00 07/04/19 09:40 Albuterol Sulfate (Proventil Neb) 2.5 mg Q6HP PRN NEB SOB/WHEEZING 06/29/19 19:30 Amantadine HCl (Symmetrel) 100 mg BID PO 06/29/19 21:00 07/04/19 09:42 Aripiprazole (AbiLIFY) 2 mg DAILY PO 06/30/19 09:00 07/04/19 09:42 Aspirin (Aspirin Chewable) 81 mg DAILY PO 06/30/19 09:00 07/04/19 09:40 Atorvastatin Calcium (Lipitor) 40 mg DAILY PO 06/30/19 09:00 07/04/19 09:41 Baclofen (Lioresal) 10 mg TID PO 06/29/19 21:00 07/04/19 09:40 Bisacodyl (Dulcolax Suppository) 10 mg DAILYPRN PRN [place] CONSTIPATION 06/29/19 19:15 Clonazepam (KlonoPIN) 1 mg BID PO 06/29/19 21:00 07/04/19 09:41 Divalproex Sodium (Depakote Er) 500 mg BID PO 06/29/19 21:00 07/02/19 17:52 DC 07/02/19 11:40 Divalproex Sodium (Depakote Er) 500 mg BID PO 07/03/19 21:00 07/04/19 09:41 Divalproex Sodium (Depakote Er) 500 mg TID PO 07/02/19 21:00 07/03/19 12:48 DC 07/03/19 08:52 Docusate Sodium (Colace) 100 mg BID PO 06/29/19 21:00 07/04/19 09:41 Duloxetine HCl (Cymbalta) 60 mg BID PO 06/29/19 21:00 07/04/19 09:41 Heparin Sodium (Heparin (Flush)) 500 units ASDIRECTED PRN IV SEE LABEL COMMENTS 06/29/19 19:30 07/04/19 12:22 Heparin Sodium (Heparin (Flush)) 500 units DAILY IV 06/30/19 09:00 07/04/19 09:33 Heparin Sodium (Porcine) (Heparin) 5,000 units Q12H SQ 06/30/19 09:00 07/04/19 09:42 Home Med (Med Rec Complete!) ASDIRECTED XX 06/29/19 18:45 06/29/19 18:45 DC Hydroxyzine HCl (Atarax) 50 mg BID PO 06/29/19 21:00 07/04/19 09:42 Lactulose (Cephulac) 30 ml DAILYPRN PRN PO NO BOWEL MOVEMENT 07/01/19 16:00 Levetiracetam (Keppra) 500 mg BID PO 06/29/19 21:00 07/04/19 09:42 Levothyroxine Sodium (Synthroid) 50 mcg DAILY@06 PO 06/30/19 06:00 07/04/19 05:42 Magnesium Sulfate/ Dextrose 1 gm/IV Miscellaneous Supplies 100 ml @ 100 mls/hr Q1H IV 06/29/19 21:00 06/29/19 22:59 DC 06/29/19 22:25 Meloxicam (Mobic) 15 mg DAILY PO 06/30/19 09:00 07/04/19 09:42 Menthol/Methyl Salicylate (Bengay Cream) bilateral calves BID TOP 07/01/19 09:00 07/04/19 09:43 Meropenem 1 gm/IV Miscellaneous Supplies 50 ml @ 100 mls/hr Q8H IV 06/29/19 20:00 07/04/19 12:21 Metoprolol Succinate (TopROL XL) 25 mg DAILY PO 06/30/19 09:00 07/04/19 09:42 Nystatin (Mycostatin Powder, Nystop) under breasts BID TOP 06/30/19 09:00 07/04/19 09:43 Omeprazole (PriLOSEC) 40 mg BID PO 06/29/19 21:00 07/04/19 09:41 Phenytoin (Dilantin) 500 mg QHS PO 06/29/19 21:00 06/29/19 21:00 DC Phenytoin (Dilantin) 500 mg QHS PO 06/29/19 21:00 07/03/19 20:58 Potassium Chloride (Micro-K Extencaps) 10 meq DAILY PO 06/30/19 09:00 06/30/19 11:33 DC 06/30/19 08:28 Potassium Chloride (Micro-K Extencaps) 20 meq DAILY PO 07/01/19 09:00 07/04/19 09:41 Pregabalin (Lyrica) 300 mg BID PO 06/29/19 21:00 07/04/19 09:42 Promethazine HCl (Phenergan) 25 mg Q4HP PRN PO NAUSEA OR VOMITING 06/29/19 19:30 07/02/19 11:40 Senna (Senokot) 1 tab QHS PO 06/29/19 21:00 06/29/19 21:00 DC Senna (Senokot) 2 tab QHS PO 06/29/19 21:00 07/02/19 20:42 Sodium Chloride (Saline Lock Flush) 10 ml ASDIRECTED PRN IV SEE LABEL COMMENTS 06/29/19 19:30 07/04/19 12:22 Sodium Chloride (Saline Lock Flush) 10 ml DAILY IV 06/30/19 09:00 07/04/19 09:33 Tramadol/ Acetaminophen (Ultracet 37.5/ 325 Mg) 1 tab Q6HP PRN PO PAIN 07/01/19 03:15 07/04/19 09:49 Trazodone HCl (Desyrel) 150 mg QHS PO 06/29/19 21:00 07/03/19 20:59 MARYBETH KERN MD Jul 04, 2019 16:07
[2019-07-04] MEDS ORDERED: ISOVUE-370 76% 100ML VIAL (Q9967) As Ordered ONE (17:42)
[2019-07-04 19:37] LABS: PHENYTOIN (DILANTIN) 24.6 UG/ML (10.0-20.0)
--- NOTE | 2019-07-04 19:48 | REPVR ---
EXAM: CT Abdomen and Pelvis With Contrast EXAM DATE/TIME: 07/04/2019 5:47 PM CLINICAL HISTORY: 53 years old, female; Abdominal pain; Additional info: Recurrent UTI TECHNIQUE: Imaging protocol: Axial computed tomography images of the abdomen and pelvis with intravenous contrast. Coronal and sagittal reformatted images were created and reviewed. Radiation optimization: All CT scans at this facility use at least one of these dose optimization techniques: automated exposure control; mA and/or kV adjustment per patient size (includes targeted exams where dose is matched to clinical indication); or iterative reconstruction. Contrast material: ISO 370;Contrast volume: 100 ml;Contrast route: IV; COMPARISON: CT ABD PELVIS W/O CONTRAST 10/30/2018 10:09 AM FINDINGS: Lungs: No suspicious mass or airspace process in the visualized lung bases. Liver: Liver appears normal with no focal abnormality. Gallbladder and bile ducts: Gallstones are present in the gallbladder lumen. No adjacent fluid or duct dilatation. Pancreas: Pancreas appears normal. No focal mass or peripancreatic inflammation. Spleen: Spleen appears homogeneous without focal mass. Adrenals: Adrenal glands are normal in appearance. Kidneys and ureters: Kidneys demonstrate no obstructive change. Nonobstructive punctate lower pole left renal calculus is present. No perinephric fluid collection Right lower quadrant ileal conduit is present with patulous ureters showing no focal obstructive change. Stomach and bowel: No evidence of small bowel obstruction. No evidence of acute diverticulitis. Large volume of stool is seen throughout the colon. Appendix: Normal caliber appendix is identified, with no adjacent inflammation. Intraperitoneal space: No pneumoperitoneum. Vasculature: Atherosclerotic change present in the aorta, without aneurysm. Main portal and splenic veins enhance normally. Lymph nodes: No enlarged lymph nodes. Bladder: Bladder is surgically absent. Reproductive: Right ovarian cystic lesion measuring 3 cm, similar to the prior CT. Bones/joints: Degenerative changes are seen in the lumbar spine with disc height loss, endplate osteophytes and hypertrophic facet arthropathy. Soft tissues: Prior midline abdominal incision with no dehiscence or fluid collection. IMPRESSION: 1. Punctate nonobstructive lower pole left renal calculus. No hydronephrosis or ureter stone and no apparent complication involving the right lower quadrant ileostomy. 2. Stable right ovarian cystic lesion measuring 3 cm which may be an ovarian cystadenoma. No adjacent adenopathy, concerning interval change or suspicious features compared with October 2018 Electronically signed by: Renato Lynn On 07/04/2019 19:48:26 PM
[2019-07-04 20:00] VITALS: BP 114/62
[2019-07-04] MEDS: PHENYTOIN ER 100 MG CAP PO SCH (21:05)
[2019-07-04] MEDS: traZODone 50 MG TAB PO SCH (21:06)
[2019-07-04] MEDS: SENNA 8.6 MG TAB (SENOKOT) PO SCH (21:13)
[2019-07-05] MEDS: MEROPENEM INJ 1 GM in APPROPRIATE DILUENT 1 EA IV SCH (04:06)
[2019-07-05] MEDS: SODIUM CHLORIDE 0.9% INJ 10 ML SYR IV PRN (04:40)
[2019-07-05 04:46] VITALS: BP 127/65
[2019-07-05] MEDS: LEVOTHYROXINE 50MCG TABLET (0.05MG) PO SCH (05:49)
[2019-07-05] MEDS: SODIUM CHLORIDE 0.9% INJ 10 ML SYR IV SCH (09:00)
[2019-07-05] MEDS: HEPARIN SOD (PORCINE) 5000 UNITS/ML VIAL SQ SCH ×2 (09:57→22:06)
[2019-07-05] MEDS: POTASSIUM CHLORIDE 10 MEQ SR TABLET PO SCH (09:57)
[2019-07-05] MEDS: BACLOFEN 10 MG TAB PO SCH ×3 (09:58→22:05)
[2019-07-05] MEDS: ULTRACET TAB PO PRN (09:58)
[2019-07-05] MEDS: ASPIRIN 81 MG CHEW TABLET PO SCH (09:58)
[2019-07-05] MEDS: OMEPRAZOLE 20 MG CAP PO SCH ×2 (09:58→22:04)
[2019-07-05] MEDS: DULoxetine 30 MG CAP (CYMBALTA) PO SCH ×2 (09:58→22:04)
[2019-07-05] MEDS: DIVALPROEX 500MG *ER* TAB PO SCH ×2 (09:58→22:04)
[2019-07-05] MEDS: PREGABALIN 100 MG CAP (LYRICA) PO SCH ×2 (09:58→22:02)
[2019-07-05] MEDS: ARIPiprazole 2 MG TAB PO SCH (09:59)
[2019-07-05] MEDS: hydrOXYzine 50 MG TAB PO SCH ×2 (09:59→22:04)
[2019-07-05] MEDS: DOCUSATE SODIUM 100 MG CAP PO SCH ×2 (09:59→22:05)
[2019-07-05] MEDS: levETIRAcetam 250MG TABLET (KEPPRA) PO SCH ×2 (09:59→22:05)
[2019-07-05] MEDS: ACYCLOVIR 200 MG CAPSULE PO SCH ×2 (09:59→22:06)
[2019-07-05] MEDS: ATORVASTATIN 20 MG TAB PO SCH (09:59)
[2019-07-05] MEDS: clonazePAM 1 MG TAB PO SCH ×2 (09:59→22:05)
[2019-07-05] MEDS: METOPROLOL SUCC *XL* 25MG TAB (TopROL *XL*) PO SCH (09:59)
[2019-07-05] MEDS: AMANTADINE 100 MG CAP PO SCH ×2 (09:59→22:04)
[2019-07-05] MEDS: MELOXICAM (MOBIC) 7.5 MG TAB PO SCH (09:59)
[2019-07-05] MEDS: ANALGESIC BALM CRM 120 GM TOP SCH ×2 (10:02→21:00)
[2019-07-05] MEDS: NYSTATIN 100,000 UNITS/GM TOPICAL PWD 15 GM TOP SCH ×2 (10:02→21:00)
--- NOTE | 2019-07-05 11:19 | IPNPDOC ---
PM&R Progress Note DATE OF SERVICE: Jul 05, 2019 Environmental Scientist Progress Note Subjective: Patient reported chest pain this afternoon around noon, 8/10, not worse with inspiration, with slight difficulty breathing. Vitals at the time 97.1, 85 bpm, RR 17, 02 94%, 113/69 She received Maalox without change in pain, EKG ordered without any ST changes compared to recent EKG 06/09/19, CK-trop negative, and D-dimer not elevated. Chest wall was not tender to palpation, however + diffuse wheezing on exam- patient received Duonebs with decrease in wheezing and decrease in pain to 6/10 She reports a Tylenol allergy which in the past has causes nausea and had recently been taking Ultracet which contains Acetaminophen, in addition she had taken a shower and was encompassed by hot moist air for 1.5 hours in the setting of MS. Dopplers were ordered and came back negative, CXR also negative, patient feeling better towards end of the day. REVIEW OF SYSTEMS: The following is a completed review of systems and has been reviewed. Review of systems otherwise unremarkable. PAIN: Patient self reports chronic pain in bilateral legs burning in nature EYES: No recent vision changes EARS, NOSE, & THROAT: No throat pain, or dysphagia, or rhinorrhea CARDIOVASCULAR: +chest pain (resolving) PULMONARY: Denies shortness of breath GASTROINTESTINAL: Denies constipation/diarrhea GENITOURINARY: +neurogenic bladder with urostomy MUSCULOSKELETAL: generalized weakness, torticollis NEUROLOGICAL:+ MS HEMATOLOGICAL: negative SKIN: urostomy site PSYCHIATRIC: Unremarkable All other review of systems found to be negative. PHYSICAL EXAMINATION: VITAL SIGNS: Please see below. GENERAL: Pleasant and cooperative. No acute distress. Slow speech HEENT: PERRL. +horizontal nystagmus, Clear conjunctiva, + glasses CARDIOVASCULAR: Regular rate and rhythm. No murmurs, rubs, or gallops LUNGS: Clear to auscultation bilaterally. +scattered wheeze No rhonchi ABDOMEN: Soft, nontender, nondistended. Positive bowel sounds. Normal active bowel sounds +urostomy NEUROLOGICAL: Alert and oriented times three. Cranial nerves intact except for CN V decreased sensation to pinprick, sensation to light touch intact throughout all 4 limbs, pin prick diminished throughout all 4 limbs +bilat clonus x 2 beats +torticollis EXTREMITIES: 4\\5 strength bilateral upper extremities.4\\5 strength right lower extremity. 4/5 strength in left lower extremity. SKIN: urostomy site c/d/i ASSESSMENT:53-year-old F with past medical history of MS with seizures who presents status post MS exacerbation in setting of UTI. PLAN: 1. Rehab: PT- work on ambulating short distances Mod-I, stretch/strengthen/preserve ROM of LE OT- improve trunk control, fine motor strength for optimal ADL management, shoulder stabilization exercises, stretch/strengthen/preserve ROM of UE 2. Neuro: progressive-relapsing MS s/p exacerbation in setting of UTI, s/p Solumedrol dosing for flare- c/u Amantadine -seizure d/o c/u Depakote, Keppra, and Dilantin-discussed case with Dr. Dave in [place] who believes it is ok to keep Dilantin dosing at 500mg qHS, but could consider reducing dosing a little given levels are above 20- will lower to 430 mg qHS and recheck levels -Dr Dave also states that the low Depakote level is fine as this is for headaches and not to increase dosing, he is comfortable with Keppra levels and to keep dosing as is- will need outpatient f/u -torticollis- c/u baclofen and stretching 3. Cardiac: pmh HTN c/u metoprolol, medicine consulted to assist in management - chest pain today most likely due to reactive airway possibly due to exposure to hot/moist air or Tylenol which she is allergic to, cardiac causes ruled out 4. Resp: encourage incentive spirometry- Duonebs ordered around the clock for reactive airway on today's exam 5. Endo: hypothyroidism, c/u Synthroid 6.Hypokalemia- s/p IV supplementation, c/u on 20meq oral and adjust prn, monitor Mg levels-stable 7. ID: chronic UTIs in setting of urostomy, s/p 7 day course of IV Meropenem, ID consulted today for possible prophylaxis recs -CT 07/04/19- Punctate nonobstructive lower pole left renal calculus. No hydronephrosis or ureter stone and no apparent complication involving the right lower quadrant ileostomy." 8. Pain: c/u Lyrica, Duloxetine, Meloxicam- avoid anything with Acetaminophen as she has an allergy 9. Psych: Trazodone for insomnia, Clonazepam for anxiety and Abilify 10. GI ppx: omeprazole BID, FOBT negative 11. DVT ppx: heparin and TEDs, Dopplers negative for DVT 12. Dispo: TBD Allergies Coded Allergies: Cephalosporins (Verified Allergy, Mild, rash, 04/27/19) Sulfa (Sulfonamide Antibiotics) (Verified Allergy, Mild, itchy, 04/27/19) oxycodone (Verified Allergy, Mild, itchy, 04/27/19) hydrocodone (Verified Adverse Reaction, Intermediate, chest pain, 04/27/19) acetaminophen (Verified Adverse Reaction, Mild, NAUSEA, 04/27/19) Vital Signs Vital Signs Date Time Temp Pulse Resp B/P (MAP) Pulse Ox O2 Delivery O2 Flow Rate FiO2 07/05/19 09:59 83 127/65 07/05/19 09:58 18 07/05/19 04:46 97.9 94 Microbiology Microbiology 07/01/19 Stool Occult Blood (VANDANA) - Final, Complete Current Medications Current Medications Current Medications Medications (Trade) Dose Ordered Sig/Felix Route PRN Reason Start Time Stop Time Status Last Admin Dose Admin Acyclovir (Zovirax) 400 mg BID PO 06/29/19 21:00 07/05/19 09:59 Albuterol Sulfate (Proventil Neb) 2.5 mg Q6HP PRN NEB SOB/WHEEZING 06/29/19 19:30 Amantadine HCl (Symmetrel) 100 mg BID PO 06/29/19 21:00 07/05/19 09:59 Aripiprazole (AbiLIFY) 2 mg DAILY PO 06/30/19 09:00 07/05/19 09:59 Aspirin (Aspirin Chewable) 81 mg DAILY PO 06/30/19 09:00 07/05/19 09:58 Atorvastatin Calcium (Lipitor) 40 mg DAILY PO 06/30/19 09:00 07/05/19 09:59 Baclofen (Lioresal) 10 mg TID PO 06/29/19 21:00 07/05/19 09:58 Bisacodyl (Dulcolax Suppository) 10 mg DAILYPRN PRN [place] CONSTIPATION 06/29/19 19:15 Clonazepam (KlonoPIN) 1 mg BID PO 06/29/19 21:00 07/05/19 09:59 Divalproex Sodium (Depakote Er) 500 mg BID PO 06/29/19 21:00 07/02/19 17:52 DC 07/02/19 11:40 Divalproex Sodium (Depakote Er) 500 mg BID PO 07/03/19 21:00 07/05/19 09:58 Divalproex Sodium (Depakote Er) 500 mg TID PO 07/02/19 21:00 07/03/19 12:48 DC 07/03/19 08:52 Docusate Sodium (Colace) 100 mg BID PO 06/29/19 21:00 07/05/19 09:59 Duloxetine HCl (Cymbalta) 60 mg BID PO 06/29/19 21:00 07/05/19 09:58 Heparin Sodium (Heparin (Flush)) 500 units ASDIRECTED PRN IV SEE LABEL COMMENTS 06/29/19 19:30 07/05/19 04:41 Heparin Sodium (Heparin (Flush)) 500 units DAILY IV 06/30/19 09:00 07/04/19 09:33 Heparin Sodium (Porcine) (Heparin) 5,000 units Q12H SQ 06/30/19 09:00 07/05/19 09:57 Home Med (Med Rec Complete!) ASDIRECTED XX 06/29/19 18:45 06/29/19 18:45 DC Hydroxyzine HCl (Atarax) 50 mg BID PO 06/29/19 21:00 07/05/19 09:59 Lactulose (Cephulac) 30 ml DAILYPRN PRN PO NO BOWEL MOVEMENT 07/01/19 16:00 Levetiracetam (Keppra) 500 mg BID PO 06/29/19 21:00 07/05/19 09:59 Levothyroxine Sodium (Synthroid) 50 mcg DAILY@06 PO 06/30/19 06:00 07/05/19 05:49 Magnesium Sulfate/ Dextrose 1 gm/IV Miscellaneous Supplies 100 ml @ 100 mls/hr Q1H IV 06/29/19 21:00 06/29/19 22:59 DC 06/29/19 22:25 Meloxicam (Mobic) 15 mg DAILY PO 06/30/19 09:00 07/05/19 09:59 Menthol/Methyl Salicylate (Bengay Cream) bilateral calves BID TOP 07/01/19 09:00 07/05/19 10:02 Meropenem 1 gm/IV Miscellaneous Supplies 50 ml @ 100 mls/hr Q8H IV 06/29/19 20:00 07/05/19 10:37 DC 07/05/19 04:06 Metoprolol Succinate (TopROL XL) 25 mg DAILY PO 06/30/19 09:00 07/05/19 09:59 Nystatin (Mycostatin Powder, Nystop) under breasts BID TOP 06/30/19 09:00 07/05/19 10:02 Omeprazole (PriLOSEC) 40 mg BID PO 06/29/19 21:00 07/05/19 09:58 Phenytoin (Dilantin) 500 mg QHS PO 06/29/19 21:00 06/29/19 21:00 DC Phenytoin (Dilantin) 500 mg QHS PO 06/29/19 21:00 07/04/19 21:05 Potassium Chloride (Micro-K Extencaps) 10 meq DAILY PO 06/30/19 09:00 06/30/19 11:33 DC 06/30/19 08:28 Potassium Chloride (Micro-K Extencaps) 20 meq DAILY PO 07/01/19 09:00 07/05/19 09:57 Pregabalin (Lyrica) 300 mg BID PO 06/29/19 21:00 07/05/19 09:58 Promethazine HCl (Phenergan) 25 mg Q4HP PRN PO NAUSEA OR VOMITING 06/29/19 19:30 07/02/19 11:40 Senna (Senokot) 1 tab QHS PO 06/29/19 21:00 06/29/19 21:00 DC Senna (Senokot) 2 tab QHS PO 06/29/19 21:00 07/04/19 21:13 Sodium Chloride (Saline Lock Flush) 10 ml ASDIRECTED PRN IV SEE LABEL COMMENTS 06/29/19 19:30 07/05/19 04:40 Sodium Chloride (Saline Lock Flush) 10 ml DAILY IV 06/30/19 09:00 07/04/19 09:33 Tramadol/ Acetaminophen (Ultracet 37.5/ 325 Mg) 1 tab Q6HP PRN PO PAIN 07/01/19 03:15 07/05/19 09:58 Trazodone HCl (Desyrel) 150 mg QHS PO 06/29/19 21:00 07/04/19 21:06 MARYBETH KERN MD Jul 05, 2019 11:19
[2019-07-05] MEDS ORDERED: MAALOX 30 ML SUSP *UDC PO STA (12:33)
[2019-07-05] MEDS: MAALOX 30 ML SUSP *UDC PO ONE ×2 (12:36→13:14)
[2019-07-05] MEDS ORDERED: TUBERCULIN PPD 5 UNITS/0.1 ML ID ONE (13:00)
[2019-07-05 13:26] LABS: CK-MB VALUE MASS < 1.0 NG/ML (<3.6); TROPONIN I < 0.02 NG/ML (< 0.10)
[2019-07-05] MEDS ORDERED: IPRATROPIUM 0.5MG/ALBUTEROL 2.5MG INH SOL UD 3ML (DUONEB)(J7620) NEB STA (13:36)
[2019-07-05 14:00] VITALS: BP 127/60
[2019-07-05] MEDS: IPRATROPIUM 0.5MG/ALBUTEROL 2.5MG INH SOL UD 3ML (DUONEB)(J7620) NEB SCH ×2 (14:00→20:57)
--- NOTE | 2019-07-05 14:15 | IPNPDOC ---
Text Note Date of Service The patient was seen on 07/05/19. NOTE Subjective: Has no complaints.. Denies chills or fever, denies chest pain, shortness of breath. Objective GENERAL: NAD SKIN : Warm, dry intact HEENT: Atraumatic, normocephalic, PERRL, moist mucous membrane CARDIOVASCULAR: Regular rate and rhythm, S1S2, no JVD, no edema, distal pulses + palpable RESP: CTAB, no accessory muscle use noted ABDOMEN: BS+ non distended non tender MS: no joint deformities NEURO: Alert and oriented x 3, CN2-12 grossly intact PSYCH: no anxiety or agitation, appropriate mood and affect. A/P Multiple sclerosis -Relapsing type with acute exacerbation -Continued in rehabilitation unit for mobilization and strengthening to return patient to baseline Complicated Urinary tract infection -Completed antibiotic therapy with Merrem - ID specialist consulted for prophylactic management against recurrent UTI -CT abdomen and pelvis completed to evaluate complex anatomy -follow further recommendations Morbid obesity, -BMI 40.8 -Therapeutic lifestyle changes Seizure disorder -No seizure activity the last 24 hours -Continue seizure precautions -Continue Keppra and Dilantin Migraine headache -Continued on valproic acid -Prescribed by neurology -Neurology follow-up as needed Hypothyroidism -Continue hormone replacement therapy with Synthroid DVT prophylaxis -Heparin subcutaneous VS,Fishbone, I+O VS, Fishbone, I+O Vital Signs Date Time Temp Pulse Resp B/P (MAP) Pulse Ox O2 Delivery O2 Flow Rate FiO2 07/05/19 10:40 18 07/05/19 09:59 83 127/65 07/05/19 04:46 97.9 94 I&O- Last 24 Hours up to 6 AM 07/05/19 06:00 Intake Total 590 ml Output Total 2750 ml Balance -2160 ml STEFANO MUÑOZP Jul 05, 2019 14:15
[2019-07-05] MEDS ORDERED: ALBUTEROL SULFATE 2.5 MG/0.5 ML INH NEB SOLN NEB PRN (14:30)
--- NOTE | 2019-07-05 15:06 | REP ---
PORTABLE CHEST, SINGLE VIEW: There is no evidence of acute infiltrate. No pleural effusion is seen. The heart is normal in size. The mediastinal silhouette is unremarkable. The visualized osseous structures are intact. Right central venous catheter is seen with the tip in the superior vena cava. IMPRESSION: No acute pulmonary disease. Electronically Signed by Bran Chirinos MD 07/06/2019 07:45 A
[2019-07-05] MEDS ORDERED: traMADol 50 MG TAB PO ONE (15:15)
--- NOTE | 2019-07-05 16:47 | REP ---
Bilateral lower extremity Duplex Doppler venous ultrasound: Real time compression and duplex Doppler interrogation of the bilateral lower extremity deep venous system is performed. Bilaterally, the common femoral, superficial femoral and popliteal veins are fully compressible with transducer pressure and demonstrate normal spontaneous and phasic flow, without evidence of deep venous thrombosis. Impression: No evidence of deep venous thrombosis of the bilateral lower extremity femoral popliteal venous system. Electronically Signed by Bran Chirinos MD 07/05/2019 04:38 P
[2019-07-05] MEDS: LACTULOSE 20 GM/30 ML SYRUP UD PO SCH (17:59)
[2019-07-05 21:00] VITALS: BP 119/63
[2019-07-05] MEDS: PHENYTOIN ER 30 MG CAP PO SCH (22:03)
[2019-07-05] MEDS: PHENYTOIN ER 100 MG CAP PO SCH (22:03)
[2019-07-05] MEDS: SENNA 8.6 MG TAB (SENOKOT) PO SCH (22:05)
[2019-07-05] MEDS: traZODone 50 MG TAB PO SCH (22:06)
[2019-07-06] MEDS: IPRATROPIUM 0.5MG/ALBUTEROL 2.5MG INH SOL UD 3ML (DUONEB)(J7620) NEB SCH ×5 (02:01→23:29)
[2019-07-06 06:00] VITALS: BP 106/58
[2019-07-06] MEDS ORDERED: SODIUM CHLORIDE 0.9% INJ 10 ML SYR IV SCH (06:00)
[2019-07-06] MEDS: LEVOTHYROXINE 50MCG TABLET (0.05MG) PO SCH (06:07)
[2019-07-06 06:36] LABS: HEMATOCRIT 27.3 % (36.0-47.0); HEMOGLOBIN 8.6 g/dl (12.0-15.5); MEAN CORPUSCULAR HEMOGLOBIN 24.4 pg (27.0-33.0); MEAN CORPUSCULAR HGB CONC 31.5 g/dl (32.0-36.5); MEAN CORPUSCULAR VOLUME 77.3 fl (80.0-96.0); PLATELET COUNT, AUTOMATED 183 10^3/uL (150-450); RED BLOOD COUNT 3.53 10^6/uL (4.00-5.40); WHITE BLOOD COUNT 4.9 10^3/uL (4.0-10.0)
--- NOTE | 2019-07-06 08:41 | ECGEPIP ---
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
[2019-07-06] MEDS: MELOXICAM (MOBIC) 7.5 MG TAB PO SCH (10:07)
[2019-07-06] MEDS: DIVALPROEX 500MG *ER* TAB PO SCH ×2 (10:07→20:40)
[2019-07-06] MEDS: LACTULOSE 20 GM/30 ML SYRUP UD PO SCH ×2 (10:07→20:41)
[2019-07-06] MEDS: DOCUSATE SODIUM 100 MG CAP PO SCH ×2 (10:08→20:41)
[2019-07-06] MEDS: ACYCLOVIR 200 MG CAPSULE PO SCH ×2 (10:08→20:41)
[2019-07-06] MEDS: clonazePAM 1 MG TAB PO SCH ×2 (10:08→20:39)
[2019-07-06] MEDS: hydrOXYzine 50 MG TAB PO SCH ×2 (10:08→20:41)
[2019-07-06] MEDS: AMANTADINE 100 MG CAP PO SCH ×2 (10:08→20:43)
[2019-07-06] MEDS: ASPIRIN 81 MG CHEW TABLET PO SCH (10:08)
[2019-07-06] MEDS: ARIPiprazole 2 MG TAB PO SCH (10:08)
[2019-07-06] MEDS: levETIRAcetam 250MG TABLET (KEPPRA) PO SCH ×2 (10:08→20:40)
[2019-07-06] MEDS: ATORVASTATIN 20 MG TAB PO SCH (10:08)
[2019-07-06] MEDS: PREGABALIN 100 MG CAP (LYRICA) PO SCH ×2 (10:09→20:40)
[2019-07-06] MEDS: BACLOFEN 10 MG TAB PO SCH ×3 (10:09→20:39)
[2019-07-06] MEDS: OMEPRAZOLE 20 MG CAP PO SCH ×2 (10:09→20:40)
[2019-07-06] MEDS: DULoxetine 30 MG CAP (CYMBALTA) PO SCH ×2 (10:09→20:40)
[2019-07-06] MEDS: POTASSIUM CHLORIDE 10 MEQ SR TABLET PO SCH (10:10)
[2019-07-06] MEDS: METOPROLOL SUCC *XL* 25MG TAB (TopROL *XL*) PO SCH (10:12)
[2019-07-06] MEDS: HEPARIN SOD (PORCINE) 5000 UNITS/ML VIAL SQ SCH ×2 (10:13→20:41)
[2019-07-06] MEDS: ANALGESIC BALM CRM 120 GM TOP SCH ×2 (10:13→20:42)
[2019-07-06] MEDS: NYSTATIN 100,000 UNITS/GM TOPICAL PWD 15 GM TOP SCH ×2 (10:14→20:41)
--- NOTE | 2019-07-06 11:24 | IPNPDOC ---
PM&R Progress Note DATE OF SERVICE: Jul 06, 2019 Account General Manager Progress Note Subjective: Patient seen in therapy on the [facility] stating she feels tired, but was laughing and able to participate in therapy. Her breathing and chest pain is better today with the Duonebs. REVIEW OF SYSTEMS: The following is a completed review of systems and has been reviewed. Review of systems otherwise unremarkable. PAIN: Patient self reports chronic pain in bilateral legs burning in nature EYES: No recent vision changes EARS, NOSE, & THROAT: No throat pain, or dysphagia, or rhinorrhea CARDIOVASCULAR: +chest pain (resolving) PULMONARY: Denies shortness of breath GASTROINTESTINAL: Denies constipation/diarrhea GENITOURINARY: +neurogenic bladder with urostomy MUSCULOSKELETAL: generalized weakness, torticollis NEUROLOGICAL:+ MS HEMATOLOGICAL: negative SKIN: urostomy site PSYCHIATRIC: Unremarkable All other review of systems found to be negative. PHYSICAL EXAMINATION: VITAL SIGNS: Please see below. GENERAL: Pleasant and cooperative. No acute distress. Slow speech HEENT: PERRL. +horizontal nystagmus, Clear conjunctiva, + glasses CARDIOVASCULAR: Regular rate and rhythm. No murmurs, rubs, or gallops LUNGS: Clear to auscultation bilaterally. no wheeze No rhonchi ABDOMEN: Soft, nontender, nondistended. Positive bowel sounds. Normal active bowel sounds +urostomy NEUROLOGICAL: Alert and oriented times three. Cranial nerves intact except for CN V decreased sensation to pinprick, sensation to light touch intact throughout all 4 limbs, pin prick diminished throughout all 4 limbs +bilat clonus x 2 beats +torticollis (improving) EXTREMITIES: 4\\5 strength bilateral upper extremities.4\\5 strength right lower extremity. 4/5 strength in left lower extremity. SKIN: urostomy site c/d/i, area of erythema under lower aspect of adhesive ASSESSMENT:53-year-old F with past medical history of MS with seizures who presents status post MS exacerbation in setting of UTI. PLAN: 1. Rehab: PT- work on ambulating short distances Mod-I, stretch/strengthe n/preserve ROM of LE OT- improve trunk control, fine motor strength for optimal ADL management, shou lder stabilization exercises, stretch/strengthen/preserve ROM of UE 2. Neuro: progressive-relapsing MS s/p exacerbation in setting of UTI, s/p Solumedrol dosing for flare- c/u Amantadine -seizure d/o c/u Depakote, Keppra, and Dilantin-discussed case with Dr. Dave in [place] who believes it is ok to keep Dilantin dosing at 500mg qHS, but could consider reducing dosing a little given levels are above 20- will lower to 430 mg qHS and recheck levels -Dr Dave also states that the low Depakote level is fine as this is for headaches and not to increase dosing, he is comfortable with Keppra levels and to keep dosing as is- will need outpatient f/u -torticollis- c/u baclofen and stretching 3. Cardiac: pmh HTN c/u metoprolol, medicine consulted to assist in management - chest pain today most likely due to reactive airway possibly due to exposure to hot/moist air or Tylenol which she is allergic to, cardiac causes ruled out 4. Resp: encourage incentive spirometry- Duonebs ordered around the clock for reactive airway on today's exam 5. Endo: hypothyroidism, c/u Synthroid 6.Hypokalemia- s/p IV supplementation, c/u on 20meq oral and adjust prn, monitor Mg levels-stable 7. ID: chronic UTIs in setting of urostomy, s/p 7 day course of IV Meropenem, ID consulted today for possible prophylaxis recs -CT 07/04/19- Punctate nonobstructive lower pole left renal calculus. No hydronep hrosis or ureter stone and no apparent complication involving the right lower quadrant ileostomy." 8. GI: patient found to have elevated ammonia to 52, started on lactulose will check levels daily- no liver pathology noted on recent CT scan 8. Pain: c/u Lyrica, Duloxetine, Meloxicam- avoid anything with Acetaminophen as she has an allergy 9. Psych: Trazodone for insomnia, Clonazepam for anxiety and Abilify 10. GI ppx: omeprazole BID, FOBT negative 11. DVT ppx: heparin and TEDs, Dopplers negative for DVT 12. Skin: urostomy site adjsuted yesterday, applied skin prep followed by powder and placed america dressing over area of what looks like contact dermatitis 12. Dispo: TBD Allergies Coded Allergies: Cephalosporins (Verified Allergy, Mild, rash, 04/27/19) Sulfa (Sulfonamide Antibiotics) (Verified Allergy, Mild, itchy, 04/27/19) oxycodone (Verified Allergy, Mild, itchy, 04/27/19) hydrocodone (Verified Adverse Reaction, Intermediate, chest pain, 04/27/19) acetaminophen (Verified Adverse Reaction, Mild, NAUSEA, 04/27/19) Vital Signs Vital Signs Date Time Temp Pulse Resp B/P (MAP) Pulse Ox O2 Delivery O2 Flow Rate FiO2 07/06/19 10:12 100 102/67 07/06/19 06:00 96.1 18 92 Laboratory Data CBC/BMP Laboratory Tests 07/06/19 06:20 Red Blood Count 3.53 L, Mean Corpuscular Volume 77.3 L, Mean Corpuscular Hemoglobin 24.4 L, Mean Corpuscular Hemoglobin Concent 31.5 L, Red Cell Distribution Width 15.7 H Labs 24H Laboratory Tests 2 07/05/19 12:43: D-Dimer, Quantitative < 270.0, Creatine Kinase MB < 1.0, Troponin I < 0.02 07/05/19 15:31: Ammonia 52H 07/06/19 06:20: Nucleated Red Blood Cells % (auto) 0.0 Microbiology Microbiology 07/01/19 Stool Occult Blood (VANDANA) - Final, Complete Current Medications Current Medications Current Medications Medications (Trade) Dose Ordered Sig/Felix Route PRN Reason Start Time Stop Time Status Last Admin Dose Admin Acyclovir (Zovirax) 400 mg BID PO 06/29/19 21:00 07/06/19 10:08 Al Hydrox/Mg Hydrox/Simethicone (Mylanta) 30 ml STAT STAT PO 07/05/19 12:33 07/05/19 12:41 DC 07/05/19 12:42 Albuterol Sulfate (Proventil Neb) 2.5 mg Q2HP PRN NEB SOB/WHEEZING 07/05/19 14:30 Albuterol Sulfate (Proventil Neb) 2.5 mg Q6HP PRN NEB SOB/WHEEZING 06/29/19 19:30 07/05/19 14:18 DC Albuterol/ Ipratropium (Duoneb (Ipr 0.5mg/Alb 2.5mg)) 3 ml RQ6H NEB 07/05/19 14:00 07/06/19 07:36 Albuterol/ Ipratropium (Duoneb (Ipr 0.5mg/Alb 2.5mg)) 3 ml STAT STAT NEB 07/05/19 13:36 07/05/19 13:47 DC 07/05/19 14:18 Amantadine HCl (Symmetrel) 100 mg BID PO 06/29/19 21:00 07/06/19 10:08 Aripiprazole (AbiLIFY) 2 mg DAILY PO 06/30/19 09:00 07/06/19 10:08 Aspirin (Aspirin Chewable) 81 mg DAILY PO 06/30/19 09:00 07/06/19 10:08 Atorvastatin Calcium (Lipitor) 40 mg DAILY PO 06/30/19 09:00 07/06/19 10:08 Baclofen (Lioresal) 10 mg TID PO 06/29/19 21:00 07/06/19 10:09 Bisacodyl (Dulcolax Suppository) 10 mg DAILYPRN PRN MD CONSTIPATION 06/29/19 19:15 Clonazepam (KlonoPIN) 1 mg BID PO 06/29/19 21:00 07/06/19 10:08 Divalproex Sodium (Depakote Er) 500 mg BID PO 06/29/19 21:00 07/02/19 17:52 DC 07/02/19 11:40 Divalproex Sodium (Depakote Er) 500 mg BID PO 07/03/19 21:00 07/06/19 10:07 Divalproex Sodium (Depakote Er) 500 mg TID PO 07/02/19 21:00 07/03/19 12:48 DC 07/03/19 08:52 Docusate Sodium (Colace) 100 mg BID PO 06/29/19 21:00 07/06/19 10:08 Duloxetine HCl (Cymbalta) 60 mg BID PO 06/29/19 21:00 07/06/19 10:09 Heparin Sodium (Heparin (Flush)) 500 units ASDIRECTED PRN IV SEE LABEL COMMENTS 06/29/19 19:30 07/05/19 12:55 DC 07/05/19 04:41 Heparin Sodium (Heparin (Flush)) 500 units DAILY IV 06/30/19 09:00 07/05/19 12:55 DC 07/04/19 09:33 Heparin Sodium (Heparin (Flush)) 500 units Q30D@0600 IV 07/06/19 06:00 07/06/19 06:07 Heparin Sodium (Porcine) (Heparin) 5,000 units Q12H SQ 06/30/19 09:00 07/06/19 10:13 Home Med (Med Rec Complete!) ASDIRECTED XX 06/29/19 18:45 06/29/19 18:45 DC Hydroxyzine HCl (Atarax) 50 mg BID PO 06/29/19 21:00 07/06/19 10:08 Lactulose (Cephulac) 15 ml BID PO 07/05/19 17:15 07/06/19 10:07 Lactulose (Cephulac) 30 ml DAILYPRN PRN PO NO BOWEL MOVEMENT 07/01/19 16:00 Levetiracetam (Keppra) 500 mg BID PO 06/29/19 21:00 07/06/19 10:08 Levothyroxine Sodium (Synthroid) 50 mcg DAILY@06 PO 06/30/19 06:00 07/06/19 06:07 Magnesium Sulfate/ Dextrose 1 gm/IV Miscellaneous Supplies 100 ml @ 100 mls/hr Q1H IV 06/29/19 21:00 06/29/19 22:59 DC 06/29/19 22:25 Meloxicam (Mobic) 15 mg DAILY PO 06/30/19 09:00 07/06/19 10:07 Menthol/Methyl Salicylate (Bengay Cream) bilateral calves BID TOP 07/01/19 09:00 07/06/19 10:13 Meropenem 1 gm/IV Miscellaneous Supplies 50 ml @ 100 mls/hr Q8H IV 06/29/19 20:00 07/05/19 10:37 DC 07/05/19 04:06 Metoprolol Succinate (TopROL XL) 25 mg DAILY PO 06/30/19 09:00 07/05/19 09:59 Nystatin (Mycostatin Powder, Nystop) under breasts BID TOP 06/30/19 09:00 07/06/19 10:14 Omeprazole (PriLOSEC) 40 mg BID PO 06/29/19 21:00 07/06/19 10:09 Phenytoin (Dilantin) 30 mg QHS PO 07/05/19 21:00 07/05/19 22:03 Phenytoin (Dilantin) 400 mg QHS PO 07/05/19 21:00 07/05/19 22:03 Phenytoin (Dilantin) 500 mg QHS PO 06/29/19 21:00 06/29/19 21:00 DC Phenytoin (Dilantin) 500 mg QHS PO 06/29/19 21:00 07/05/19 11:08 DC 07/04/19 21:05 Potassium Chloride (Micro-K Extencaps) 10 meq DAILY PO 06/30/19 09:00 06/30/19 11:33 DC 06/30/19 08:28 Potassium Chloride (Micro-K Extencaps) 20 meq DAILY PO 07/01/19 09:00 07/06/19 10:10 Pregabalin (Lyrica) 300 mg BID PO 06/29/19 21:00 07/06/19 10:09 Promethazine HCl (Phenergan) 25 mg Q4HP PRN PO NAUSEA OR VOMITING 06/29/19 19:30 07/02/19 11:40 Senna (Senokot) 1 tab QHS PO 06/29/19 21:00 06/29/19 21:00 DC Senna (Senokot) 2 tab QHS PO 06/29/19 21:00 07/05/19 22:05 Sodium Chloride (Saline Lock Flush) 10 ml ASDIRECTED PRN IV SEE LABEL COMMENTS 06/29/19 19:30 07/05/19 12:55 DC 07/05/19 04:40 Sodium Chloride (Saline Lock Flush) 10 ml DAILY IV 06/30/19 09:00 07/05/19 12:55 DC 07/04/19 09:33 Sodium Chloride (Saline Lock Flush) 10 ml Q30D@0600 IV 07/06/19 06:00 07/06/19 06:07 Tramadol/ Acetaminophen (Ultracet 37.5/ 325 Mg) 1 tab Q6HP PRN PO PAIN 07/01/19 03:15 07/05/19 12:52 DC 07/05/19 09:58 Trazodone HCl (Desyrel) 150 mg QHS PO 06/29/19 21:00 07/05/19 22:06 MARYBETH KERN MD Jul 06, 2019 11:24
[2019-07-06] MEDS ORDERED: GLUCOSE 4 GM CHEW TABLET PO PRN (12:45)
[2019-07-06] MEDS ORDERED: GLUCAGON FOR INJ 1 MG VIAL (J1610) SC PRN (12:45)
[2019-07-06] MEDS ORDERED: DEXTROSE 50% 50 ML SYRINGE IV PRN (12:45)
--- NOTE | 2019-07-06 12:53 | IPNPDOC ---
Text Note Date of Service The patient was seen on 07/06/19. NOTE Subjective: Complains of feeling tired, denies chest pain. had chest pain yester day which was improved with breathing treatments.. Denies chills or fever, denies chest pain, shortness of breath. Objective GENERAL: NAD SKIN : Warm, dry intact HEENT: Atraumatic, normocephalic, PERRL, moist mucous membrane CARDIOVASCULAR: Regular rate and rhythm, S1S2, no JVD, BLE 1+ edema RESP: CTAB, some accessory muscle use noted ABDOMEN: BS+ non distended non tender, +urostomy MS: no joint deformities NEURO: Alert and oriented x 3, CN2-12 grossly intact PSYCH: no anxiety or agitation, appropriate mood and affect. A/P Multiple sclerosis -Relapsing type with acute exacerbation -Continued in rehabilitation unit for mobilization and strengthening to return patient to baseline Chest Pain -ACS ruled out, likely due to respiratory compromise -has since resolved Hypoglycemia -on fasting labs -check blood glucose q4 with hypoglycemia protocol BLE Edema -no DVT -TEDs if able to tolerate Elevated Ammonia Levels -etiology unclear -CT abdomen pelvis negative for hepatic abnormality -lactulose prescribed by primary team Complicated Urinary tract infection -Completed antibiotic therapy with Merrem -no current symptoms reported -continue to monitor Morbid obesity, -BMI 40.8 -Therapeutic lifestyle changes Seizure disorder -No seizure activity since admit -Continue seizure precautions -Continue Keppra and Dilantin Migraine headache -Continued on valproic acid -Prescribed by neurology -Neurology follow-up as needed Hypothyroidism -Continue hormone replacement therapy with Synthroid DVT prophylaxis -Heparin subcutaneous VS,Fishbone, I+O VS, Fishbone, I+O Laboratory Tests 07/06/19 06:20 Red Blood Count 3.53 L, Mean Corpuscular Volume 77.3 L, Mean Corpuscular Hemoglobin 24.4 L, Mean Corpuscular Hemoglobin Concent 31.5 L, Red Cell Distribution Width 15.7 H Vital Signs Date Time Temp Pulse Resp B/P (MAP) Pulse Ox O2 Delivery O2 Flow Rate FiO2 07/06/19 10:12 100 102/67 07/06/19 06:00 96.1 18 92 I&O- Last 24 Hours up to 6 AM 07/06/19 06:00 Intake Total 1100 ml Output Total 2470 ml Balance -1370 ml OTUBELUSTEFANO REJOINER Jul 06, 2019 12:53
[2019-07-06 12:54] LABS: BLOOD UREA NITROGEN 11 MG/DL (7-18); CALCIUM LEVEL 9.1 MG/DL (8.5-10.1); CARBON DIOXIDE LEVEL 30 MEQ/L (21-32); CHLORIDE LEVEL 104 MEQ/L (98-107); CREATININE FOR GFR 0.98 MG/DL (0.55-1.30); GLOMERULAR FILTRATION RATE > 60.0 (>51); GLUCOSE, FASTING 68 MG/DL (70-100); SODIUM LEVEL 140 MEQ/L (136-145)
[2019-07-06 14:00] VITALS: BP 103/63
[2019-07-06 20:00] VITALS: BP 141/76
[2019-07-06] MEDS: PHENYTOIN ER 100 MG CAP PO SCH (20:39)
[2019-07-06] MEDS: PHENYTOIN ER 30 MG CAP PO SCH (20:40)
[2019-07-06] MEDS: SENNA 8.6 MG TAB (SENOKOT) PO SCH (20:41)
[2019-07-06] MEDS: traZODone 50 MG TAB PO SCH (20:41)
[2019-07-07] MEDS: LEVOTHYROXINE 50MCG TABLET (0.05MG) PO SCH (06:21)
[2019-07-07 06:28] VITALS: BP 139/66
[2019-07-07] MEDS: IPRATROPIUM 0.5MG/ALBUTEROL 2.5MG INH SOL UD 3ML (DUONEB)(J7620) NEB SCH ×4 (07:52→23:20)
[2019-07-07] MEDS: ATORVASTATIN 20 MG TAB PO SCH (08:43)
[2019-07-07] MEDS: METOPROLOL SUCC *XL* 25MG TAB (TopROL *XL*) PO SCH (08:43)
[2019-07-07] MEDS: PREGABALIN 100 MG CAP (LYRICA) PO SCH ×2 (08:43→21:57)
[2019-07-07] MEDS: OMEPRAZOLE 20 MG CAP PO SCH ×2 (08:44→21:58)
[2019-07-07] MEDS: DULoxetine 30 MG CAP (CYMBALTA) PO SCH ×2 (08:44→21:58)
[2019-07-07] MEDS: ASPIRIN 81 MG CHEW TABLET PO SCH (08:45)
[2019-07-07] MEDS: clonazePAM 1 MG TAB PO SCH ×2 (08:45→21:58)
[2019-07-07] MEDS: BACLOFEN 10 MG TAB PO SCH ×3 (08:45→21:57)
[2019-07-07] MEDS: hydrOXYzine 50 MG TAB PO SCH ×2 (08:45→21:58)
[2019-07-07] MEDS: ACYCLOVIR 200 MG CAPSULE PO SCH ×2 (08:45→21:58)
[2019-07-07] MEDS: POTASSIUM CHLORIDE 10 MEQ SR TABLET PO SCH (08:46)
[2019-07-07] MEDS: ARIPiprazole 2 MG TAB PO SCH (08:46)
[2019-07-07] MEDS: MELOXICAM (MOBIC) 7.5 MG TAB PO SCH (08:46)
[2019-07-07] MEDS: levETIRAcetam 250MG TABLET (KEPPRA) PO SCH ×2 (08:46→21:54)
[2019-07-07] MEDS: DOCUSATE SODIUM 100 MG CAP PO SCH ×2 (08:46→21:00)
[2019-07-07] MEDS: AMANTADINE 100 MG CAP PO SCH ×2 (08:46→21:54)
[2019-07-07] MEDS: HEPARIN SOD (PORCINE) 5000 UNITS/ML VIAL SQ SCH ×2 (08:47→21:52)
[2019-07-07] MEDS: DIVALPROEX 500MG *ER* TAB PO SCH ×2 (08:49→21:58)
[2019-07-07] MEDS: ANALGESIC BALM CRM 120 GM TOP SCH ×2 (08:53→21:00)
[2019-07-07] MEDS: NYSTATIN 100,000 UNITS/GM TOPICAL PWD 15 GM TOP SCH ×2 (08:54→21:59)
[2019-07-07] MEDS: LACTULOSE 20 GM/30 ML SYRUP UD PO SCH ×4 (09:00→21:00)
[2019-07-07] MEDS ORDERED: PPD DOCUMENTATION ENTRY MISC XX ONE (13:00)
[2019-07-07 14:00] VITALS: BP 109/73
--- NOTE | 2019-07-07 14:19 | IPNPDOC ---
Text Note Date of Service The patient was seen on 07/07/19. NOTE Subjective: Denies shortness of breath. Today, denies chest pain, complains of persisting tiredness and weakness. Objective GENERAL: NAD SKIN : Warm, dry intact HEENT: Atraumatic, normocephalic, PERRL, moist mucous membrane CARDIOVASCULAR: Regular rate and rhythm, S1S2, no JVD, BLE 1+ edema RESP: CTAB, some accessory muscle use noted ABDOMEN: BS+ non distended non tender, +urostomy MS: no joint deformities NEURO: Alert and oriented x 3, CN2-12 grossly intact PSYCH: no anxiety or agitation, appropriate mood and affect. A/P Multiple sclerosis -Relapsing type with acute exacerbation -Continued in rehabilitation unit for mobilization and strengthening to return patient to baseline Chest Pain -ACS ruled out, likely due to respiratory compromise -has since resolved Hypoglycemia -etiology unclear, lowest value 61 non fasting with complaints of exhaustion -continue Q4 hours fingersticks -continue hypoglycemia protocol -assess current medication regimen for culprit BLE Edema -no DVT -TEDs if able to tolerate Elevated Ammonia Levels -possibly induced by depakote -CT abdomen pelvis negative for hepatic abnormality -continue lactulose Complicated Urinary tract infection -Completed antibiotic therapy with Merrem -CT abdomen pelvis negative for anatomic cause for recurrent UTI Morbid obesity, -BMI 40.8 -Therapeutic lifestyle changes Seizure disorder -No seizure activity since admit -Continue seizure precautions -Continue Keppra and Dilantin -follow phenytoin levels Migraine headache -Continued on valproic acid -Prescribed by neurology -Neurology follow-up as needed Hypothyroidism -Continue hormone replacement therapy with Synthroid DVT prophylaxis -Heparin subcutaneous VS,Fishbone, I+O VS, Fishbone, I+O Vital Signs Date Time Temp Pulse Resp B/P (MAP) Pulse Ox O2 Delivery O2 Flow Rate FiO2 07/07/19 08:43 84 139/66 07/07/19 06:28 97.9 18 96 I&O- Last 24 Hours up to 6 AM 07/07/19 05:59 Intake Total 1200 ml Output Total 1420 ml Balance -220 ml STEFANO MUÑOZ AGENCY SALES DIRECTOR Jul 07, 2019 14:19
[2019-07-07 20:00] VITALS: BP 129/79
[2019-07-07] MEDS: SENNA 8.6 MG TAB (SENOKOT) PO SCH (21:00)
[2019-07-07] MEDS: PHENYTOIN ER 100 MG CAP PO SCH (21:53)
[2019-07-07] MEDS: PHENYTOIN ER 30 MG CAP PO SCH (21:53)
[2019-07-07] MEDS: traZODone 50 MG TAB PO SCH (21:58)
[2019-07-08 05:51] VITALS: BP 99/60
[2019-07-08] MEDS: LEVOTHYROXINE 50MCG TABLET (0.05MG) PO SCH (06:24)
[2019-07-08] MEDS: IPRATROPIUM 0.5MG/ALBUTEROL 2.5MG INH SOL UD 3ML (DUONEB)(J7620) NEB SCH ×3 (07:14→19:10)
[2019-07-08] MEDS: METOPROLOL SUCC *XL* 25MG TAB (TopROL *XL*) PO SCH (09:00)
[2019-07-08] MEDS: ANALGESIC BALM CRM 120 GM TOP SCH ×2 (09:00→21:00)
[2019-07-08] MEDS: NYSTATIN 100,000 UNITS/GM TOPICAL PWD 15 GM TOP SCH ×2 (09:00→21:00)
[2019-07-08] MEDS: DOCUSATE SODIUM 100 MG CAP PO SCH ×2 (09:00→22:16)
[2019-07-08] MEDS: LACTULOSE 20 GM/30 ML SYRUP UD PO SCH ×3 (09:39→22:17)
[2019-07-08] MEDS: HEPARIN SOD (PORCINE) 5000 UNITS/ML VIAL SQ SCH ×2 (09:39→22:12)
[2019-07-08] MEDS: ASPIRIN 81 MG CHEW TABLET PO SCH (09:40)
[2019-07-08] MEDS: ATORVASTATIN 20 MG TAB PO SCH (09:40)
[2019-07-08] MEDS: DULoxetine 30 MG CAP (CYMBALTA) PO SCH ×2 (09:40→22:15)
[2019-07-08] MEDS: levETIRAcetam 250MG TABLET (KEPPRA) PO SCH ×2 (09:40→22:14)
[2019-07-08] MEDS: POTASSIUM CHLORIDE 10 MEQ SR TABLET PO SCH (09:40)
[2019-07-08] MEDS: clonazePAM 1 MG TAB PO SCH ×2 (09:40→22:15)
[2019-07-08] MEDS: BACLOFEN 10 MG TAB PO SCH ×3 (09:41→22:14)
[2019-07-08] MEDS: AMANTADINE 100 MG CAP PO SCH ×2 (09:41→22:12)
[2019-07-08] MEDS: ARIPiprazole 2 MG TAB PO SCH (09:41)
[2019-07-08] MEDS: ACYCLOVIR 200 MG CAPSULE PO SCH ×2 (09:41→22:14)
[2019-07-08] MEDS: PREGABALIN 100 MG CAP (LYRICA) PO SCH ×2 (09:42→22:12)
[2019-07-08] MEDS: DIVALPROEX 500MG *ER* TAB PO SCH (09:42)
[2019-07-08] MEDS: OMEPRAZOLE 20 MG CAP PO SCH ×2 (09:42→22:15)
[2019-07-08] MEDS: hydrOXYzine 50 MG TAB PO SCH ×2 (09:42→22:14)
[2019-07-08] MEDS: MELOXICAM (MOBIC) 7.5 MG TAB PO SCH (09:42)
[2019-07-08 14:00] VITALS: BP 118/73
[2019-07-08 20:00] VITALS: BP 122/78
[2019-07-08 21:05] LABS: APPEARANCE, URINE TURBID (CLEAR); BACTERIA, URINE AUTO 1+ (NEGATIVE); BILIRUBIN, URINE AUTO NEGATIVE (NEGATIVE); BLOOD, URINE BLOOD 1+ (NEGATIVE); COLOR, URINE YELLOW (YELLOW); GLUCOSE, URINE (UA) AUTO NEGATIVE (NEGATIVE); KETONE, URINE AUTO NEGATIVE (NEGATIVE); LEUKOCYTE ESTERASE, URINE AUTO 3+ (NEGATIVE); NITRITE, URINE AUTO NEGATIVE (NEGATIVE); PROTEIN, URINE AUTO 2+ mg/dL (NEGATIVE); RBC, URINE AUTO 47 /HPF (0-3); SQUAMOUS EPITHELIAL CELL UR AU 0 /HPF (0-6); UROBILINOGEN, URINE AUTO 0.2 mg/dL (0.0-2.0); WBC, URINE AUTO TNTC /HPF (0-3)
--- NOTE | 2019-07-08 21:47 | CR ---
DATE OF CONSULTATION: 07/04/2019 Asked to consult by Dr. Baugh for evaluation of recurrent urinary tract infection and possible need for prophylactic antibiotic. HISTORY OF PRESENT ILLNESS: Ms. Yang is a 53-year-old pleasant female diagnosed with multiple sclerosis in 2005, chronic pain, anxiety and depression, who presented to [facility] on June 08 with a complaint of cloudy urine and weakness with increased lethargy, malaise, and chills. The patient did not have any fevers, cough, congestion, abdominal pain, or diarrhea. She was diagnosed with a presumptive urinary tract infection (UTI). Urine cultures were positive for Enterobacter cloacae, Streptococcus mitis, Staphylococcus aureus, and the patient was treated with broad-spectrum antibiotics, including of 2 days of levofloxacin from June 08 to June 10, doxycycline until June 15, and meropenem from June 08 to June 15. The patient had improved and was transferred to rehabilitation for strengthening. PAST MEDICAL HISTORY: Significant for: 1. Relapsing and remitting multiple sclerosis, diagnosed in 2005. Takes Ocrevus every 6 months. 2. Ileal conduit urostomy , right lower quadrant. 3. Recurrent urinary tract infections (UTIs). 4. Obesity. 5. Anxiety. 6. Depression. 7. History of shingles. 8. Hypothyroidism. 9. Neurogenic bladder. The patient has had ileal conduit done 2 years ago. ALLERGIES: CEPHALOSPORIN, SULFA, OXYCODONE, HYDROCODONE, TYLENOL. PAST SURGICAL HISTORY: 1. Breast reduction surgery. 2. Bilateral wrist surgery. 3. Bladder resection with ileal conduit. 4. Hysterectomy. 5. Tubal ligation. 6. Mohs surgery for basal cell carcinoma. 7. Port placement. 8. Left ulnar surgical entrapment SOCIAL HISTORY: She lives with her . She is usually independent and walks around sometimes with a walker, sometimes without. She does not work. Tobacco use: Former smoker, 45 pack-year. No drug use. REVIEW OF SYSTEMS: She has no nausea, vomiting, or diarrhea. She has weakness but is getting stronger. Denies any urinary symptoms currently. MEDICATIONS: - Abilify 2 mg by mouth at bedtime - Advil as needed - hydroxyzine 50 mg by mouth twice a day - lorazepam as needed - Dilantin 500 mg by mouth at bedtime - fluconazole 150 mg by mouth daily - lactulose 15 mg by mouth twice a day for elevated ammonia - DuoNeb every 6 hours - aspirin 81 mg by mouth daily - Lipitor 40 mg by mouth daily - meloxicam - metoprolol 25 mg daily - heparin subcutaneous twice a day - nystatin under breasts twice a day - levothyroxine daily - Colace 100 by mouth twice a day - senna two tablets by mouth at bedtime - omeprazole 40 mg by mouth twice a day - Lyrica 300 mg by mouth twice a day - trazodone 150 mg by mouth at bedtime - acyclovir 400 mg by mouth twice a day - amantadine 100 mg by mouth twice a day - baclofen 10 mg by mouth twice a day - Klonopin 1 mg by mouth twice a day - duloxetine 60 mg by mouth twice a day - Keppra 500 mg by mouth twice a day CT of the abdomen and pelvis was ordered to rule out any possible anatomic abnormality as cause of these recurrent bacteruria. Liver appears normal. No focal abnormalities. Gallbladder: Gallstones were noted. No fluid collection. Pancreas is normal. There is a stable right ovarian cyst measuring 3 cm. Could be a cystadenoma. No concerning change or suspicious features compared to October 2018. Left renal calculus punctate, nonobstructive. No hydronephrosis and no ureteral stone. Right lower quadrant ileostomy stable PHYSICAL EXAMINATION: She is a frail female in no acute distress. VITAL SIGNS: Temperature is 97.6, pulse 89, respirations 16, blood pressure 114/62, oxygen 95% on room air. HEART: Normal S1, S2. No murmurs, rubs, or gallops. LUNGS: Clear. No wheezes, rales, or rhonchi. ABDOMEN: Right lower quadrant urostomy bag. No suprapubic tenderness. EXTREMITIES: Trace edema. Lower extremity strength 5- bilaterally, but patient is able to hip flex bilaterally. Oropharynx is clear with no rash. No lesions. IMPRESSION: This is a 53-year lady with advanced multiple sclerosis, neurogenic bladder, status post ileal conduit with urostomy who has had recurrent episodes of what is diagnosed as urinary tract infection. Of note, since June 05 she has not had a fever or white count, but due to the fact that she had mental status changes with abnormal analysis, which is expected with an ileal conduit for recurrent urinary tract infection. The last urine culture she has done was on June 26, which was positive for pseudomonas, and this has not been treated at this point, as it is resistant to levofloxacin. The patient is asymptomatic and should not have urine cultures sent for cloudy urine. If she does not have a fever, chills, abdominal pain, a white count, please do not send urine cultures. PLAN: At this time there is no intervention to decrease number of urinary tract infections. There are no drugs which will stop recurrent Pseudomonas aeruginosa. She is allergic to cephalosporin and sulfa. Some of those urine cultures that have been sent are not appropriate, as the patient had no symptoms. . DO NOT SEND UA,URINE CULTURES FOR ASYMPTOMATIC BACTERURIA, AND DO NOT TREAT THE PSEUDOMONAS AERUGINOSA in the urineif asymptomatic MTDD
[2019-07-08] MEDS: PHENYTOIN ER 100 MG CAP PO SCH (22:13)
[2019-07-08] MEDS: traZODone 50 MG TAB PO SCH (22:13)
[2019-07-08] MEDS: PHENYTOIN ER 30 MG CAP PO SCH (22:13)
[2019-07-08] MEDS: SENNA 8.6 MG TAB (SENOKOT) PO SCH (22:16)
[2019-07-09] MEDS: IPRATROPIUM 0.5MG/ALBUTEROL 2.5MG INH SOL UD 3ML (DUONEB)(J7620) NEB SCH ×4 (01:13→19:28)
[2019-07-09] MEDS: LEVOTHYROXINE 50MCG TABLET (0.05MG) PO SCH (05:40)
[2019-07-09 06:00] VITALS: BP 118/68
[2019-07-09 06:31] LABS: BASO % 0.4 % (0.0-1.0); EOS # 0.3 10^3/uL (0.0-0.50); EOS % 5.8 % (0.0-3.0); HEMATOCRIT 26.7 % (36.0-47.0); HEMOGLOBIN 8.6 g/dl (12.0-15.5); LYMPH # 0.6 10^3/uL (1.5-4.5); LYMPH % 10.7 % (24.0-44.0); MEAN CORPUSCULAR HEMOGLOBIN 25.1 pg (27.0-33.0); MEAN CORPUSCULAR HGB CONC 32.2 g/dl (32.0-36.5); MEAN CORPUSCULAR VOLUME 78.1 fl (80.0-96.0); MONO # 0.6 10^3/uL (0.0-0.8); MONO % 12.3 % (0.0-5.0); NEUTROPHILS # 3.4 10^3/uL (1.8-7.7); NEUTROPHILS % 66.9 % (36.0-66.0); PLATELET COUNT, AUTOMATED 188 10^3/uL (150-450); RED BLOOD COUNT 3.42 10^6/uL (4.00-5.40); WHITE BLOOD COUNT 5.1 10^3/uL (4.0-10.0)
[2019-07-09 06:56] LABS: BILIRUBIN,TOTAL 0.2 MG/DL (0.2-1.0); CALCIUM LEVEL 8.7 MG/DL (8.5-10.1); CREATININE FOR GFR 1.05 MG/DL (0.55-1.30); GLOMERULAR FILTRATION RATE 58.8 (>51); POTASSIUM SERUM 4.1 MEQ/L (3.5-5.1); TOTAL PROTEIN 6.1 GM/DL (6.4-8.2)
--- NOTE | 2019-07-09 08:17 | IPN ---
DATE: 07/08/2019 She has a history of multiple sclerosis (MS). Has had frequent exacerbations. Currently is on the rehabilitation unit. White count is normal at 4.9, hemoglobin 8.6, hematocrit 27.3. MCV is 77.3. Will get iron studies, repeat CBC and CMP in morning. Her ammonia level has been elevated. Dr. Baugh decreased the Depakote as this may be why the ammonia level is elevated. This continues to elevate despite lactulose and unremarkable ultrasound.. It had been 52 on the , and dipped down on the to 47, the 65, today it is 86. She had a abdomen and pelvis CT. Liver appeared normal with no focal abnormality. Gallstones present in the gallbladder. No fluid or ductal dilatation. Pancreas normal. Spleen homogeneous. No masses kidneys, no obstructive change. No evidence of small bowel obstruction. No evidence of acute diverticulitis. Large volume of stool seen throughout the colon. Appendix normal. Impression was a punctate nonobstructing lower pole left renal calculi. No hydronephrosis or ureter stone. No apparent complication involving the right lower ileostomy. Stable right ovarian cystic lesion measuring 3 cm. No adjacent adenopathy. No concerning interval change or suspicious feature compared with October 2018. They put a new urine drainage bag on as her urine was starting to look cloudy again. She is taken off IV antibiotics. Urinalysis is sent. Urine looks clear. Infectious disease consult has been called regarding treatment. Patient is probably colonized. May need prophylactic antibiotics. Will see what infectious disease states. Patient is afebrile. Blood pressure 118/73, pulse 94, respirations 18, temperature 97. Oxygen saturation 94% on room air. GENERAL: Patient is alert and oriented times three. HEENT: Pupils equal and reactive to light. Pharynx, tongue and gums pink and moist. Tongue is midline. NECK: Neck is supple without lymphadenopathy. CHEST: Chest is clear to auscultation. HEART: Heart is regular. ABDOMEN: Benign. Urostomy in place. Urine is clear. EXTREMITIES: Peripheral pulses equal and palpable bilaterally. IMPRESSION: Multiple sclerosis. Relapsing with acute exacerbation. Continue rehabilitation for mobilization and strengthening. Chest pain. ACS ruled out. No recurrence. Hyperglycemia. Continue every 4 hours finger sticks. Hyperglycemic protocol. Bilateral lower extremity edema. No DVT. Elevated ammonia levels. Depakote decreased. Recheck in the morning. Continue lactulose. CT abdomen negative. UTI. Completed antibiotic therapy. CT abdomen and pelvis negative for anatomic cause of recurrent UTI. Followup with infectious disease. Morbid obesity. Therapeutic lifestyle changes. Seizure disorder. No activity since admission. Continue seizure precautions, Keppra and Dilantin. Dilantin level slightly elevated. Followup with neurology. Migraine headaches. None currently. Hypothyroidism. Continue Synthroid. DVT. Heparin subcutaneous. MTDD
[2019-07-09] MEDS: ANALGESIC BALM CRM 120 GM TOP SCH ×2 (09:00→20:29)
[2019-07-09] MEDS: DOCUSATE SODIUM 100 MG CAP PO SCH ×2 (09:00→20:29)
[2019-07-09] MEDS: NYSTATIN 100,000 UNITS/GM TOPICAL PWD 15 GM TOP SCH ×2 (09:00→20:29)
[2019-07-09 09:02] LABS: PHENYTOIN (DILANTIN) 21.3 UG/ML (10.0-20.0)
[2019-07-09] MEDS: LACTULOSE 20 GM/30 ML SYRUP UD PO SCH ×3 (09:33→20:30)
[2019-07-09] MEDS: HEPARIN SOD (PORCINE) 5000 UNITS/ML VIAL SQ SCH ×2 (09:34→20:29)
[2019-07-09] MEDS: clonazePAM 1 MG TAB PO SCH ×2 (09:35→20:22)
[2019-07-09] MEDS: ASPIRIN 81 MG CHEW TABLET PO SCH (09:35)
[2019-07-09] MEDS: BACLOFEN 10 MG TAB PO SCH ×3 (09:35→20:22)
[2019-07-09] MEDS: ARIPiprazole 2 MG TAB PO SCH (09:36)
[2019-07-09] MEDS: AMANTADINE 100 MG CAP PO SCH ×2 (09:36→20:22)
[2019-07-09] MEDS: levETIRAcetam 250MG TABLET (KEPPRA) PO SCH ×2 (09:36→20:22)
[2019-07-09] MEDS: ATORVASTATIN 20 MG TAB PO SCH (09:36)
[2019-07-09] MEDS: DULoxetine 30 MG CAP (CYMBALTA) PO SCH ×2 (09:36→20:23)
[2019-07-09] MEDS: PREGABALIN 100 MG CAP (LYRICA) PO SCH ×2 (09:36→20:23)
[2019-07-09] MEDS: ACYCLOVIR 200 MG CAPSULE PO SCH ×2 (09:37→20:23)
[2019-07-09] MEDS: hydrOXYzine 50 MG TAB PO SCH ×2 (09:37→20:22)
[2019-07-09] MEDS: DIVALPROEX 500MG *ER* TAB PO SCH (09:37)
[2019-07-09] MEDS: METOPROLOL SUCC *XL* 25MG TAB (TopROL *XL*) PO SCH (09:37)
[2019-07-09] MEDS: MELOXICAM (MOBIC) 7.5 MG TAB PO SCH (09:37)
[2019-07-09] MEDS: POTASSIUM CHLORIDE 10 MEQ SR TABLET PO SCH (09:38)
[2019-07-09] MEDS: OMEPRAZOLE 20 MG CAP PO SCH ×2 (09:38→20:22)
[2019-07-09 14:00] VITALS: BP 131/70
[2019-07-09] MEDS: PROMETHAZINE 25 MG TAB PO PRN (15:30)
[2019-07-09 20:00] VITALS: BP 122/72
[2019-07-09] MEDS: PHENYTOIN ER 100 MG CAP PO SCH (20:23)
[2019-07-09] MEDS: traZODone 50 MG TAB PO SCH (20:23)
[2019-07-09] MEDS: PHENYTOIN ER 30 MG CAP PO SCH (20:28)
[2019-07-09] MEDS: SENNA 8.6 MG TAB (SENOKOT) PO SCH (20:29)
[2019-07-10] MEDS: IPRATROPIUM 0.5MG/ALBUTEROL 2.5MG INH SOL UD 3ML (DUONEB)(J7620) NEB SCH ×4 (01:38→21:37)
[2019-07-10] MEDS: LEVOTHYROXINE 50MCG TABLET (0.05MG) PO SCH (05:47)
[2019-07-10 06:00] VITALS: BP 113/57
[2019-07-10] MEDS: BACLOFEN 10 MG TAB PO SCH ×3 (08:56→21:10)
[2019-07-10] MEDS: hydrOXYzine 50 MG TAB PO SCH ×2 (08:56→21:10)
[2019-07-10] MEDS: clonazePAM 1 MG TAB PO SCH ×2 (08:56→21:12)
[2019-07-10] MEDS: LACTULOSE 20 GM/30 ML SYRUP UD PO SCH ×3 (08:56→21:11)
[2019-07-10] MEDS: HEPARIN SOD (PORCINE) 5000 UNITS/ML VIAL SQ SCH ×2 (08:56→21:10)
[2019-07-10] MEDS: POTASSIUM CHLORIDE 10 MEQ SR TABLET PO SCH (08:56)
[2019-07-10] MEDS: levETIRAcetam 250MG TABLET (KEPPRA) PO SCH ×2 (08:56→21:10)
[2019-07-10] MEDS: ASPIRIN 81 MG CHEW TABLET PO SCH (08:56)
[2019-07-10] MEDS: METOPROLOL SUCC *XL* 25MG TAB (TopROL *XL*) PO SCH (08:57)
[2019-07-10] MEDS: OMEPRAZOLE 20 MG CAP PO SCH ×2 (08:57→21:10)
[2019-07-10] MEDS: ATORVASTATIN 20 MG TAB PO SCH (08:57)
[2019-07-10] MEDS: DULoxetine 30 MG CAP (CYMBALTA) PO SCH ×2 (08:57→21:09)
[2019-07-10] MEDS: AMANTADINE 100 MG CAP PO SCH ×2 (08:57→21:11)
[2019-07-10] MEDS: DIVALPROEX 500MG *ER* TAB PO SCH (08:58)
[2019-07-10] MEDS: MELOXICAM (MOBIC) 7.5 MG TAB PO SCH (08:58)
[2019-07-10] MEDS: ARIPiprazole 2 MG TAB PO SCH (08:58)
[2019-07-10] MEDS: PREGABALIN 100 MG CAP (LYRICA) PO SCH ×2 (08:58→21:13)
[2019-07-10] MEDS: ACYCLOVIR 200 MG CAPSULE PO SCH ×2 (08:58→21:12)
[2019-07-10] MEDS: DOCUSATE SODIUM 100 MG CAP PO SCH ×2 (08:58→21:09)
[2019-07-10] MEDS: ANALGESIC BALM CRM 120 GM TOP SCH ×2 (08:59→21:13)
[2019-07-10] MEDS: NYSTATIN 100,000 UNITS/GM TOPICAL PWD 15 GM TOP SCH ×2 (08:59→21:13)
--- NOTE | 2019-07-10 10:58 | IPNPDOC ---
Text Note Date of Service The patient was seen on 07/10/19. NOTE Subjective: Denies headache, chest pain, SOB, abdominal discomfort, chills fever. Objective GENERAL: NAD SKIN : Warm, dry intact HEENT: Atraumatic, normocephalic, PERRL, moist mucous membrane CARDIOVASCULAR: Regular rate and rhythm, S1S2, no JVD, BLE 1+ edema RESP: CTAB, some accessory muscle use noted ABDOMEN: BS+ non distended non tender, +urostomy MS: no joint deformities NEURO: Alert and oriented x 3, CN2-12 grossly intact PSYCH: no anxiety or agitation, appropriate mood and affect. A/P Multiple sclerosis -Relapsing type with acute exacerbation -Continued in rehabilitation unit for mobilization and strengthening Chest Pain -resolved Hyperammonemia -continue lactulose, Rifaximin added -thought likely due to Depakote side effects -dosage is being adjusted down gradually -input sought from primary neurologist for recommendations Hypoglycemia -improving -continued fingerstick checks BLE Edema -U/S negative for DVT Complicated Urinary tract infection -Completed antibiotic therapy with Merrem -evaluated by ID specialist who has recommended stopping further urine studies on patient unless she has elevated white count with symptoms -CT abdomen pelvis negative Seizure disorder -No seizure activity since admit -Continue seizure precautions -Continue Keppra and Dilantin Migraine headache -no migraine since admit -continued on depakote with plans to wean due to side effects Hypothyroidism -Continue hormone replacement therapy with Synthroid Morbid obesity, -BMI 40.8 -Therapeutic lifestyle changes DVT prophylaxis -Heparin SQ VS,Fishbone, I+O VS, Fishbone, I+O Vital Signs Date Time Temp Pulse Resp B/P (MAP) Pulse Ox O2 Delivery O2 Flow Rate FiO2 07/10/19 08:57 90 113/57 07/10/19 06:00 98.0 16 100 I&O- Last 24 Hours up to 6 AM 07/10/19 05:59 Intake Total 1200 ml Output Total 2500 ml Balance -1300 ml STEFANO MUÑOZ [facility] Jul 10, 2019 10:58
[2019-07-10 14:00] VITALS: BP 104/59
--- NOTE | 2019-07-10 18:12 | IPN ---
DATE: 07/09/2019 Patient complained of bilateral knees buckling on her and difficulty ambulating. She is able to provide a history. She is awake, alert, and oriented this morning and says that she has had constipation but does not want any medications at the moment. Her ammonia level has increased previously due to phenytoin. She tells me that her neurologist had been titrating her phenytoin down and had put her on additional antiepileptic medication. She has also noted some spasms of her right hand since she has been admitted and still complains of generalized weakness despite being treated with Solu-Medrol on admission. She denies any dysuria, urgency, frequency, fever, chills, or flank pain. She chronically has an indwelling catheter and Pseudomonas in her urine is not to be treated as this is thought to be a colonizer per infectious disease. VITAL SIGNS: Temperature 97, pulse 90, respiratory rate 18, blood pressure 118/68, 94% oxygen saturation. GENERAL: Patient is awake, alert and oriented times three, able to answer questions appropriately. She is slow to speak but making much sense. No jugular venous distention. No thyromegaly. No cervical lymphadenopathy. Dry mucous membranes. LUNGS: Clear to auscultation. No wheezes, rales, or rhonchi. HEART: S1, S2, sinus rhythm. No murmurs, rubs, or gallops. ABDOMEN: Soft, nontender, nondistended. Urostomy is noted. EXTREMITIES: No clubbing, cyanosis, or any pitting edema. Laboratory data, microbiology and imaging studies have been reviewed. ASSESSMENT AND PLAN: This is a 53-year-old female with history of relapsing multiple sclerosis diagnosed in 2006, chronic neurogenic bladder with urostomy, Pseudomonas colonization, chronic pain due to multiple sclerosis (MS), anxiety, depression, obesity, shingles, hypothyroidism, migraines, pseudobulbar affect, admitted from 06/26/2019 through 06/29/2019 for a multiple sclerosis exacerbation, status post Solu-Medrol. Dr. Dave is her primary neurologist at [facility] at [phone]. ACTIVE ISSUES: 1. Multiple sclerosis, resolved status post Solu-Medrol. Currently in acute rehabilitation unit (ARU). Continued on her home medications. MRI of the cervical spine showed no acute cervical spine demyelination. Needs to followup at [facility] with neurologist, Dr. Dave, at hospital discharge. 2. 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 Per infectious disease, do not treat. 3. Mood disorder. Continue on home regimen. 4. Seizure disorder, on dilantin, Keppra, Depakote. Adjust according to levels. 5. Shingles, on acyclovir. 6. Hypothyroidism, on levothyroxine. 7. Gastroesophageal reflux disease (GERD), on proton pump inhibitor (PPI). 8. Obesity, complicating medical care. 9. Neurogenic bladder, status post urostomy with chronic Pseudomonas colonization, not to be treated per infectious disease. 10. Deep vein thrombosis (DVT) prophylaxis. Lovenox. 11. Elevated ammonia level, secondary to phenytoin. MTDD
[2019-07-10 20:17] VITALS: BP 108/60
[2019-07-10] MEDS: SENNA 8.6 MG TAB (SENOKOT) PO SCH (21:09)
[2019-07-10] MEDS: PHENYTOIN ER 100 MG CAP PO SCH (21:11)
[2019-07-10] MEDS: traZODone 50 MG TAB PO SCH (21:12)
[2019-07-10] MEDS: PHENYTOIN ER 30 MG CAP PO SCH (21:12)
[2019-07-11] MEDS: IPRATROPIUM 0.5MG/ALBUTEROL 2.5MG INH SOL UD 3ML (DUONEB)(J7620) NEB SCH ×4 (02:00→20:47)
[2019-07-11] MEDS: LEVOTHYROXINE 50MCG TABLET (0.05MG) PO SCH (05:47)
[2019-07-11 05:56] VITALS: BP 109/59
[2019-07-11] MEDS: MORPHINE SULFATE ORAL SOLN 10 MG/5 ML UD PO PRN ×2 (06:48→15:12)
[2019-07-11] MEDS: clonazePAM 1 MG TAB PO SCH ×2 (10:01→22:26)
[2019-07-11] MEDS: POTASSIUM CHLORIDE 10 MEQ SR TABLET PO SCH (10:01)
[2019-07-11] MEDS: ARIPiprazole 2 MG TAB PO SCH (10:02)
[2019-07-11] MEDS: MELOXICAM (MOBIC) 7.5 MG TAB PO SCH (10:02)
[2019-07-11] MEDS: ATORVASTATIN 20 MG TAB PO SCH (10:02)
[2019-07-11] MEDS: levETIRAcetam 250MG TABLET (KEPPRA) PO SCH ×2 (10:02→22:27)
[2019-07-11] MEDS: DIVALPROEX 500MG *ER* TAB PO SCH (10:02)
[2019-07-11] MEDS: DULoxetine 30 MG CAP (CYMBALTA) PO SCH ×2 (10:03→22:27)
[2019-07-11] MEDS: ACYCLOVIR 200 MG CAPSULE PO SCH ×2 (10:03→22:28)
[2019-07-11] MEDS: DOCUSATE SODIUM 100 MG CAP PO SCH ×2 (10:03→22:30)
[2019-07-11] MEDS: AMANTADINE 100 MG CAP PO SCH ×2 (10:03→22:27)
[2019-07-11] MEDS: OMEPRAZOLE 20 MG CAP PO SCH ×2 (10:04→22:26)
[2019-07-11] MEDS: BACLOFEN 10 MG TAB PO SCH ×3 (10:04→22:27)
[2019-07-11] MEDS: PREGABALIN 100 MG CAP (LYRICA) PO SCH ×2 (10:06→22:28)
[2019-07-11] MEDS: METOPROLOL SUCC *XL* 25MG TAB (TopROL *XL*) PO SCH (10:06)
[2019-07-11] MEDS: LACTULOSE 20 GM/30 ML SYRUP UD PO SCH ×3 (10:06→22:25)
[2019-07-11] MEDS: ASPIRIN 81 MG CHEW TABLET PO SCH (10:06)
[2019-07-11] MEDS: hydrOXYzine 50 MG TAB PO SCH ×2 (10:06→22:27)
[2019-07-11] MEDS: NYSTATIN 100,000 UNITS/GM TOPICAL PWD 15 GM TOP SCH ×2 (10:07→22:29)
[2019-07-11] MEDS: HEPARIN SOD (PORCINE) 5000 UNITS/ML VIAL SQ SCH ×2 (10:07→22:28)
[2019-07-11] MEDS: ANALGESIC BALM CRM 120 GM TOP SCH ×2 (10:08→22:28)
[2019-07-11 14:00] VITALS: BP 122/87
[2019-07-11] MEDS ORDERED: PILL CUTTER 1 EACH XX PRN (16:30)
--- NOTE | 2019-07-11 16:57 | IPNPDOC ---
PM&R Progress Note DATE OF SERVICE: Jul 10, 2019 Guest Service Agent Progress Note Subjective: Patient seen in room stating she feels tired today and did not do well in therapy. REVIEW OF SYSTEMS: The following is a completed review of systems and has been reviewed. Review of systems otherwise unremarkable. PAIN: Patient self reports chronic pain in bilateral legs burning in nature EYES: No recent vision changes EARS, NOSE, & THROAT: No throat pain, or dysphagia, or rhinorrhea CARDIOVASCULAR: +chest pain (resolved) PULMONARY: Denies shortness of breath GASTROINTESTINAL: Denies constipation/diarrhea GENITOURINARY: +neurogenic bladder with urostomy MUSCULOSKELETAL: generalized weakness, torticollis NEUROLOGICAL:+ MS HEMATOLOGICAL: negative SKIN: urostomy site PSYCHIATRIC: Unremarkable All other review of systems found to be negative. PHYSICAL EXAMINATION: VITAL SIGNS: Please see below. GENERAL: Pleasant and cooperative. No acute distress. Slow speech HEENT: PERRL. +horizontal nystagmus, Clear conjunctiva, + glasses CARDIOVASCULAR: Regular rate and rhythm. No murmurs, rubs, or gallops LUNGS: Clear to auscultation bilaterally. no wheeze No rhonchi ABDOMEN: Soft, nontender, nondistended. Positive bowel sounds. Normal active bowel sounds +urostomy NEUROLOGICAL: Alert and oriented times three. Cranial nerves intact except for CN V decreased sensation to pinprick, sensation to light touch intact throughout all 4 limbs, pin prick diminished throughout all 4 limbs +bilat clonus x 2 beats +torticollis (improving) EXTREMITIES: 4\\5 strength bilateral upper extremities.4\\5 strength right lower extremity. 4/5 strength in left lower extremity. SKIN: urostomy site c/d/i, area of erythema under lower aspect of adhesive ASSESSMENT:53-year-old F with past medical history of MS with seizures who presents status post MS exacerbation in setting of UTI. PLAN: 1. Rehab: PT- work on ambulating short distances Mod-I, stretch/strengthen/preserve ROM of LE OT- improve trunk control, fine motor strength for optimal ADL management, shoulder stabilization exercises, stretch/strengthen/preserve ROM of UE 2. Neuro: progressive-relapsing MS s/p exacerbation in setting of UTI, s/p Solumedrol dosing for flare- c/u Amantadine -seizures, c/u Dilantin, lowered dose to 430mg qHS will recheck levels and c/u Keppra -migraine prevention- will taper Depakote to 500 mg daily as this is likely the cause of her elevated ammonia levels and fluctuating encephalopathy -torticollis- c/u baclofen and stretching 3. Cardiac: pmh HTN c/u metoprolol, medicine consulted to assist in management - chest pain 07/06/19 resolved 4. Resp: encourage incentive spirometry- Duonebs ordered around the clock for reactive airway 5. Endo: hypothyroidism, c/u Synthroid 6.Hypokalemia- s/p IV supplementation, c/u on 20meq oral and adjust prn, monitor Mg levels-stable 7. ID: chronic UTIs in setting of urostomy, s/p 7 day course of IV Meropenem, ID consulted, no further intervention at this time -CT 07/04/19- Punctate nonobstructive lower pole left renal calculus. No hydronephrosis or ureter stone and no apparent complication involving the right lower quadrant ileostomy." 8. GI: patient found to have fluctuating ammonia levels, no liver pathology noted on recent CT scan, likely due to synergistic effect of Keppra on Depakote, changed dosing from 500mg BID to daily, will add Rifaximin to regimen to bring down ammonia levels as well -other possible source of ammonia levels is from urostomy, however confirmed with her urologist in [place] that he did not do a ureterosigmoidostomy, but instead utilized an ileal conduit which is not known to have this side effect 8. Pain: c/u Lyrica, Duloxetine, Meloxicam- avoid anything with Acetaminophen as she has an allergy 9. Psych: Trazodone for insomnia, Clonazepam for anxiety and Abilify 10. GI ppx: omeprazole BID, FOBT negative 11. DVT ppx: heparin and TEDs, Dopplers negative for DVT 12. Skin: urostomy site adjusted, applied skin prep followed by powder and placed america dressing over area of what looks like contact dermatitis 12. Dispo: TBD Allergies Coded Allergies: Cephalosporins (Verified Allergy, Mild, rash, 04/27/19) Sulfa (Sulfonamide Antibiotics) (Verified Allergy, Mild, itchy, 04/27/19) oxycodone (Verified Allergy, Mild, itchy, 04/27/19) hydrocodone (Verified Adverse Reaction, Intermediate, chest pain, 04/27/19) acetaminophen (Verified Adverse Reaction, Mild, NAUSEA, 04/27/19) Vital Signs Vital Signs Date Time Temp Pulse Resp B/P (MAP) Pulse Ox O2 Delivery O2 Flow Rate FiO2 07/11/19 16:11 18 07/11/19 14:00 97.7 91 122/87 (99) 96 Laboratory Data Labs 24H Laboratory Tests 2 07/11/19 07:03: Ammonia 59H Microbiology Microbiology 07/01/19 Stool Occult Blood (VANDANA) - Final, Complete Current Medications Current Medications Current Medications Medications (Trade) Dose Ordered Sig/Felix Route PRN Reason Start Time Stop Time Status Last Admin Dose Admin Acyclovir (Zovirax) 400 mg BID PO 06/29/19 21:00 07/11/19 10:03 Al Hydrox/Mg Hydrox/Simethicone (Mylanta) 30 ml STAT STAT PO 07/05/19 12:33 07/05/19 12:41 DC 07/05/19 12:42 Albuterol Sulfate (Proventil Neb) 2.5 mg Q2HP PRN NEB SOB/WHEEZING 07/05/19 14:30 Albuterol Sulfate (Proventil Neb) 2.5 mg Q6HP PRN NEB SOB/WHEEZING 06/29/19 19:30 07/05/19 14:18 DC Albuterol/ Ipratropium (Duoneb (Ipr 0.5mg/Alb 2.5mg)) 3 ml RQ6H NEB 07/05/19 14:00 07/11/19 13:15 Albuterol/ Ipratropium (Duoneb (Ipr 0.5mg/Alb 2.5mg)) 3 ml STAT STAT NEB 07/05/19 13:36 07/05/19 13:47 DC 07/05/19 14:18 Amantadine HCl (Symmetrel) 100 mg BID PO 06/29/19 21:00 07/11/19 10:03 Aripiprazole (AbiLIFY) 1 mg DAILY PO 07/12/19 09:00 Aripiprazole (AbiLIFY) 2 mg DAILY PO 06/30/19 09:00 07/11/19 16:22 DC 07/11/19 10:02 Aspirin (Aspirin Chewable) 81 mg DAILY PO 06/30/19 09:00 07/11/19 10:06 Atorvastatin Calcium (Lipitor) 40 mg DAILY PO 06/30/19 09:00 07/11/19 10:02 Baclofen (Lioresal) 10 mg TID PO 06/29/19 21:00 07/11/19 15:12 Bisacodyl (Dulcolax Suppository) 10 mg DAILYPRN PRN NM CONSTIPATION 06/29/19 19:15 Clonazepam (KlonoPIN) 1 mg BID PO 06/29/19 21:00 07/11/19 10:01 Dextrose (Dextrose 50%) 25 ml ASDIRECTED PRN IV SEE LABEL COMMENTS 07/06/19 12:45 Divalproex Sodium (Depakote Er) 500 mg BID PO 06/29/19 21:00 07/02/19 17:52 DC 07/02/19 11:40 Divalproex Sodium (Depakote Er) 500 mg BID PO 07/03/19 21:00 07/08/19 11:00 DC 07/08/19 09:42 Divalproex Sodium (Depakote Er) 500 mg DAILY PO 07/09/19 09:00 07/11/19 10:02 Divalproex Sodium (Depakote Er) 500 mg TID PO 07/02/19 21:00 07/03/19 12:48 DC 07/03/19 08:52 Docusate Sodium (Colace) 100 mg BID PO 06/29/19 21:00 07/11/19 10:03 Duloxetine HCl (Cymbalta) 60 mg BID PO 06/29/19 21:00 07/11/19 10:03 Glucagon (Glucagon) 1 mg ASDIRECTED PRN SC SEE LABEL COMMENTS 07/06/19 12:45 Glucose (Glucose) 16 GM ASDIRECTED PRN PO SEE LABEL COMMENTS 07/06/19 12:45 Heparin Sodium (Heparin (Flush)) 500 units ASDIRECTED PRN IV SEE LABEL COMMENTS 06/29/19 19:30 07/05/19 12:55 DC 07/05/19 04:41 Heparin Sodium (Heparin (Flush)) 500 units DAILY IV 06/30/19 09:00 07/05/19 12:55 DC 07/04/19 09:33 Heparin Sodium (Heparin (Flush)) 500 units Q30D@0600 IV 07/06/19 06:00 07/06/19 06:07 Heparin Sodium (Porcine) (Heparin) 5,000 units Q12H SQ 06/30/19 09:00 07/11/19 10:07 Home Med (Med Rec Complete!) ASDIRECTED XX 06/29/19 18:45 06/29/19 18:45 DC Hydroxyzine HCl (Atarax) 50 mg BID PO 06/29/19 21:00 07/11/19 10:06 Lactulose (Cephulac) 15 ml BID PO 07/05/19 17:15 07/07/19 12:22 DC 07/06/19 20:41 Lactulose (Cephulac) 30 ml DAILYPRN PRN PO NO BOWEL MOVEMENT 07/01/19 16:00 07/09/19 08:49 DC 07/07/19 08:44 Lactulose (Cephulac) 30 ml TID PO 07/07/19 12:30 07/11/19 15:12 Levetiracetam (Keppra) 500 mg BID PO 06/29/19 21:00 07/11/19 10:02 Levothyroxine Sodium (Synthroid) 50 mcg DAILY@06 PO 06/30/19 06:00 07/11/19 05:47 Magnesium Sulfate/ Dextrose 1 gm/IV Miscellaneous Supplies 100 ml @ 100 mls/hr Q1H IV 06/29/19 21:00 06/29/19 22:59 DC 06/29/19 22:25 Meloxicam (Mobic) 15 mg DAILY PO 06/30/19 09:00 07/11/19 10:02 Menthol/Methyl Salicylate (Bengay Cream) bilateral calves BID TOP 07/01/19 09:00 07/11/19 10:08 Meropenem 1 gm/IV Miscellaneous Supplies 50 ml @ 100 mls/hr Q8H IV 06/29/19 20:00 07/05/19 10:37 DC 07/05/19 04:06 Metoprolol Succinate (TopROL XL) 25 mg DAILY PO 06/30/19 09:00 07/11/19 10:06 Morphine Sulfate (Morphine Sulfate Oral Solution) 2 mg Q8HP PRN PO SEVERE PAIN (PS 8-10) 07/09/19 10:30 07/11/19 15:12 Nystatin (Mycostatin Powder, Nystop) under breasts BID TOP 06/30/19 09:00 07/11/19 10:07 Omeprazole (PriLOSEC) 40 mg BID PO 06/29/19 21:00 07/11/19 10:04 Phenytoin (Dilantin) 30 mg QHS PO 07/05/19 21:00 07/10/19 21:12 Phenytoin (Dilantin) 400 mg QHS PO 07/05/19 21:00 07/10/19 21:11 Phenytoin (Dilantin) 500 mg QHS PO 06/29/19 21:00 06/29/19 21:00 DC Phenytoin (Dilantin) 500 mg QHS PO 06/29/19 21:00 07/05/19 11:08 DC 07/04/19 21:05 Potassium Chloride (Micro-K Extencaps) 10 meq DAILY PO 06/30/19 09:00 06/30/19 11:33 DC 06/30/19 08:28 Potassium Chloride (Micro-K Extencaps) 20 meq DAILY PO 07/01/19 09:00 07/11/19 10:01 Pregabalin (Lyrica) 300 mg BID PO 06/29/19 21:00 07/11/19 10:06 Promethazine HCl (Phenergan) 25 mg Q4HP PRN PO NAUSEA OR VOMITING 06/29/19 19:30 07/09/19 15:30 Rifaximin (Xifaxan) 400 mg TID PO 07/10/19 09:00 07/14/19 21:01 07/11/19 15:12 Senna (Senokot) 1 tab QHS PO 06/29/19 21:00 06/29/19 21:00 DC Senna (Senokot) 2 tab QHS PO 06/29/19 21:00 07/10/19 21:09 Sodium Chloride (Saline Lock Flush) 10 ml ASDIRECTED PRN IV SEE LABEL COMMENTS 06/29/19 19:30 07/05/19 12:55 DC 07/05/19 04:40 Sodium Chloride (Saline Lock Flush) 10 ml DAILY IV 06/30/19 09:00 07/05/19 12:55 DC 07/04/19 09:33 Sodium Chloride (Saline Lock Flush) 10 ml Q30D@0600 IV 07/06/19 06:00 07/06/19 06:07 Tramadol/ Acetaminophen (Ultracet 37.5/ 325 Mg) 1 tab Q6HP PRN PO PAIN 07/01/19 03:15 07/05/19 12:52 DC 07/05/19 09:58 Trazodone HCl (Desyrel) 150 mg QHS PO 06/29/19 21:00 07/10/19 21:12 MARYBETH KERN MD Jul 11, 2019 16:57
--- NOTE | 2019-07-11 17:00 | IPNPDOC ---
PM&R Progress Note DATE OF SERVICE: Jul 11, 2019 Rand Cementer Progress Note Subjective: Patient seen in room stating she did much better in therapy today and agrees with trying to taper her Abilify as she does not think is has helped her. REVIEW OF SYSTEMS: The following is a completed review of systems and has been reviewed. Review of systems otherwise unremarkable. PAIN: Patient self reports chronic pain in bilateral legs burning in nature EYES: No recent vision changes EARS, NOSE, & THROAT: No throat pain, or dysphagia, or rhinorrhea CARDIOVASCULAR: +chest pain (resolved) PULMONARY: Denies shortness of breath GASTROINTESTINAL: Denies constipation/diarrhea GENITOURINARY: +neurogenic bladder with urostomy MUSCULOSKELETAL: generalized weakness, torticollis NEUROLOGICAL:+ MS HEMATOLOGICAL: negative SKIN: urostomy site PSYCHIATRIC: Unremarkable All other review of systems found to be negative. PHYSICAL EXAMINATION: VITAL SIGNS: Please see below. GENERAL: Pleasant and cooperative. No acute distress. Slow speech HEENT: PERRL. +horizontal nystagmus, Clear conjunctiva, + glasses CARDIOVASCULAR: Regular rate and rhythm. No murmurs, rubs, or gallops LUNGS: Clear to auscultation bilaterally. no wheeze No rhonchi ABDOMEN: Soft, nontender, nondistended. Positive bowel sounds. Normal active bowel sounds +urostomy NEUROLOGICAL: Alert and oriented times three. Cranial nerves intact except for CN V decreased sensation to pinprick, sensation to light touch intact throughout all 4 limbs, pin prick diminished throughout all 4 limbs +bilat clonus x 2 beats +torticollis (improving) EXTREMITIES: 4\\5 strength bilateral upper extremities.4\\5 strength right lower extremity. 4/5 strength in left lower extremity. SKIN: urostomy site c/d/i, area of erythema under lower aspect of adhesive ASSESSMENT:53-year-old F with past medical history of MS with seizures who presents status post MS exacerbation in setting of UTI. PLAN: 1. Rehab: PT- work on ambulating short distances Mod-I, stretch/strengthen/preserve ROM of LE OT- improve trunk control, fine motor strength for optimal ADL management, shoulder stabilization exercises, stretch/strengthen/preserve ROM of UE 2. Neuro: progressive-relapsing MS s/p exacerbation in setting of UTI, s/p Solumedrol dosing for flare- c/u Amantadine -seizures, c/u Dilantin, lowered dose to 430mg qHS will recheck levels and c/u Keppra -migraine prevention- will taper Depakote to 500 mg daily as this is likely the cause of her elevated ammonia levels and fluctuating encephalopathy -torticollis- c/u baclofen and stretching 3. Cardiac: pmh HTN c/u metoprolol, medicine consulted to assist in management - chest pain 07/06/19 resolved 4. Resp: encourage incentive spirometry- Duonebs ordered around the clock for reactive airway 5. Endo: hypothyroidism, c/u Synthroid 6.Hypokalemia- s/p IV supplementation, c/u on 20meq oral and adjust prn, monitor Mg levels-stable 7. ID: chronic UTIs in setting of urostomy, s/p 7 day course of IV Meropenem, ID consulted, no further intervention at this time -CT 07/04/19- Punctate nonobstructive lower pole left renal calculus. No hydronephrosis or ureter stone and no apparent complication involving the right lower quadrant ileostomy." 8. GI: patient found to have fluctuating ammonia levels, no liver pathology noted on recent CT scan, likely due to synergistic effect of Keppra on Depakote, changed dosing from 500mg BID to daily, c/u Rifaximin and lactulose to bring down ammonia levels -other possible source of ammonia levels is from urostomy, however confirmed with her urologist in [place] that he did not do a ureterosigmoidostomy, but instead utilized an ileal conduit which is not known to have this side effect -omeprazole BID, FOBT negative 8. Pain: c/u Lyrica, Duloxetine, Meloxicam- avoid anything with Acetaminophen as she has an allergy 9. Psych: Trazodone for insomnia, Clonazepam for anxiety - will start to taper Abilify as can cause drowsiness 11. DVT ppx: heparin and TEDs, Dopplers negative for DVT 12. Skin: urostomy site adjusted, applied skin prep followed by powder and placed telfa dressing over area of what looks like contact dermatitis 12. Dispo: TBD Allergies Coded Allergies: Cephalosporins (Verified Allergy, Mild, rash, 04/27/19) Sulfa (Sulfonamide Antibiotics) (Verified Allergy, Mild, itchy, 04/27/19) oxycodone (Verified Allergy, Mild, itchy, 04/27/19) hydrocodone (Verified Adverse Reaction, Intermediate, chest pain, 04/27/19) acetaminophen (Verified Adverse Reaction, Mild, NAUSEA, 04/27/19) Vital Signs Vital Signs Date Time Temp Pulse Resp B/P (MAP) Pulse Ox O2 Delivery O2 Flow Rate FiO2 07/11/19 16:11 18 07/11/19 14:00 97.7 91 122/87 (99) 96 Laboratory Data Labs 24H Laboratory Tests 2 07/11/19 07:03: Ammonia 59H Microbiology Microbiology 07/01/19 Stool Occult Blood (VANDANA) - Final, Complete Current Medications Current Medications Current Medications Medications (Trade) Dose Ordered Sig/Felix Route PRN Reason Start Time Stop Time Status Last Admin Dose Admin Acyclovir (Zovirax) 400 mg BID PO 06/29/19 21:00 07/11/19 10:03 Al Hydrox/Mg Hydrox/Simethicone (Mylanta) 30 ml STAT STAT PO 07/05/19 12:33 07/05/19 12:41 DC 07/05/19 12:42 Albuterol Sulfate (Proventil Neb) 2.5 mg Q2HP PRN NEB SOB/WHEEZING 07/05/19 14:30 Albuterol Sulfate (Proventil Neb) 2.5 mg Q6HP PRN NEB SOB/WHEEZING 06/29/19 19:30 07/05/19 14:18 DC Albuterol/ Ipratropium (Duoneb (Ipr 0.5mg/Alb 2.5mg)) 3 ml RQ6H NEB 07/05/19 14:00 07/11/19 13:15 Albuterol/ Ipratropium (Duoneb (Ipr 0.5mg/Alb 2.5mg)) 3 ml STAT STAT NEB 07/05/19 13:36 07/05/19 13:47 DC 07/05/19 14:18 Amantadine HCl (Symmetrel) 100 mg BID PO 06/29/19 21:00 07/11/19 10:03 Aripiprazole (AbiLIFY) 1 mg DAILY PO 07/12/19 09:00 Aripiprazole (AbiLIFY) 2 mg DAILY PO 06/30/19 09:00 07/11/19 16:22 DC 07/11/19 10:02 Aspirin (Aspirin Chewable) 81 mg DAILY PO 06/30/19 09:00 07/11/19 10:06 Atorvastatin Calcium (Lipitor) 40 mg DAILY PO 06/30/19 09:00 07/11/19 10:02 Baclofen (Lioresal) 10 mg TID PO 06/29/19 21:00 07/11/19 15:12 Bisacodyl (Dulcolax Suppository) 10 mg DAILYPRN PRN SC CONSTIPATION 06/29/19 19:15 Clonazepam (KlonoPIN) 1 mg BID PO 06/29/19 21:00 07/11/19 10:01 Dextrose (Dextrose 50%) 25 ml ASDIRECTED PRN IV SEE LABEL COMMENTS 07/06/19 12:45 Divalproex Sodium (Depakote Er) 500 mg BID PO 06/29/19 21:00 07/02/19 17:52 DC 07/02/19 11:40 Divalproex Sodium (Depakote Er) 500 mg BID PO 07/03/19 21:00 07/08/19 11:00 DC 07/08/19 09:42 Divalproex Sodium (Depakote Er) 500 mg DAILY PO 07/09/19 09:00 07/11/19 10:02 Divalproex Sodium (Depakote Er) 500 mg TID PO 07/02/19 21:00 07/03/19 12:48 DC 07/03/19 08:52 Docusate Sodium (Colace) 100 mg BID PO 06/29/19 21:00 07/11/19 10:03 Duloxetine HCl (Cymbalta) 60 mg BID PO 06/29/19 21:00 07/11/19 10:03 Glucagon (Glucagon) 1 mg ASDIRECTED PRN SC SEE LABEL COMMENTS 07/06/19 12:45 Glucose (Glucose) 16 GM ASDIRECTED PRN PO SEE LABEL COMMENTS 07/06/19 12:45 Heparin Sodium (Heparin (Flush)) 500 units ASDIRECTED PRN IV SEE LABEL COMMENTS 06/29/19 19:30 07/05/19 12:55 DC 07/05/19 04:41 Heparin Sodium (Heparin (Flush)) 500 units DAILY IV 06/30/19 09:00 07/05/19 12:55 DC 07/04/19 09:33 Heparin Sodium (Heparin (Flush)) 500 units Q30D@0600 IV 07/06/19 06:00 07/06/19 06:07 Heparin Sodium (Porcine) (Heparin) 5,000 units Q12H SQ 06/30/19 09:00 07/11/19 10:07 Home Med (Med Rec Complete!) ASDIRECTED XX 06/29/19 18:45 06/29/19 18:45 DC Hydroxyzine HCl (Atarax) 50 mg BID PO 06/29/19 21:00 07/11/19 10:06 Lactulose (Cephulac) 15 ml BID PO 07/05/19 17:15 07/07/19 12:22 DC 07/06/19 20:41 Lactulose (Cephulac) 30 ml DAILYPRN PRN PO NO BOWEL MOVEMENT 07/01/19 16:00 07/09/19 08:49 DC 07/07/19 08:44 Lactulose (Cephulac) 30 ml TID PO 07/07/19 12:30 07/11/19 15:12 Levetiracetam (Keppra) 500 mg BID PO 06/29/19 21:00 07/11/19 10:02 Levothyroxine Sodium (Synthroid) 50 mcg DAILY@06 PO 06/30/19 06:00 07/11/19 05:47 Magnesium Sulfate/ Dextrose 1 gm/IV Miscellaneous Supplies 100 ml @ 100 mls/hr Q1H IV 06/29/19 21:00 06/29/19 22:59 DC 06/29/19 22:25 Meloxicam (Mobic) 15 mg DAILY PO 06/30/19 09:00 07/11/19 10:02 Menthol/Methyl Salicylate (Bengay Cream) bilateral calves BID TOP 07/01/19 09:00 07/11/19 10:08 Meropenem 1 gm/IV Miscellaneous Supplies 50 ml @ 100 mls/hr Q8H IV 06/29/19 20:00 07/05/19 10:37 DC 07/05/19 04:06 Metoprolol Succinate (TopROL XL) 25 mg DAILY PO 06/30/19 09:00 07/11/19 10:06 Morphine Sulfate (Morphine Sulfate Oral Solution) 2 mg Q8HP PRN PO SEVERE PAIN (PS 8-10) 07/09/19 10:30 07/11/19 15:12 Nystatin (Mycostatin Powder, Nystop) under breasts BID TOP 06/30/19 09:00 07/11/19 10:07 Omeprazole (PriLOSEC) 40 mg BID PO 06/29/19 21:00 07/11/19 10:04 Phenytoin (Dilantin) 30 mg QHS PO 07/05/19 21:00 07/10/19 21:12 Phenytoin (Dilantin) 400 mg QHS PO 07/05/19 21:00 07/10/19 21:11 Phenytoin (Dilantin) 500 mg QHS PO 06/29/19 21:00 06/29/19 21:00 DC Phenytoin (Dilantin) 500 mg QHS PO 06/29/19 21:00 07/05/19 11:08 DC 07/04/19 21:05 Potassium Chloride (Micro-K Extencaps) 10 meq DAILY PO 06/30/19 09:00 06/30/19 11:33 DC 06/30/19 08:28 Potassium Chloride (Micro-K Extencaps) 20 meq DAILY PO 07/01/19 09:00 07/11/19 10:01 Pregabalin (Lyrica) 300 mg BID PO 06/29/19 21:00 07/11/19 10:06 Promethazine HCl (Phenergan) 25 mg Q4HP PRN PO NAUSEA OR VOMITING 06/29/19 19:30 07/09/19 15:30 Rifaximin (Xifaxan) 400 mg TID PO 07/10/19 09:00 07/14/19 21:01 07/11/19 15:12 Senna (Senokot) 1 tab QHS PO 06/29/19 21:00 06/29/19 21:00 DC Senna (Senokot) 2 tab QHS PO 06/29/19 21:00 07/10/19 21:09 Sodium Chloride (Saline Lock Flush) 10 ml ASDIRECTED PRN IV SEE LABEL COMMENTS 06/29/19 19:30 07/05/19 12:55 DC 07/05/19 04:40 Sodium Chloride (Saline Lock Flush) 10 ml DAILY IV 06/30/19 09:00 07/05/19 12:55 DC 07/04/19 09:33 Sodium Chloride (Saline Lock Flush) 10 ml Q30D@0600 IV 07/06/19 06:00 07/06/19 06:07 Tramadol/ Acetaminophen (Ultracet 37.5/ 325 Mg) 1 tab Q6HP PRN PO PAIN 07/01/19 03:15 07/05/19 12:52 DC 07/05/19 09:58 Trazodone HCl (Desyrel) 150 mg QHS PO 06/29/19 21:00 07/10/19 21:12 MARYBETH KERN MD Jul 11, 2019 17:00
[2019-07-11 22:00] VITALS: BP 110/64
[2019-07-11] MEDS: traZODone 50 MG TAB PO SCH (22:26)
[2019-07-11] MEDS: PHENYTOIN ER 100 MG CAP PO SCH (22:26)
[2019-07-11] MEDS: PHENYTOIN ER 30 MG CAP PO SCH (22:26)
[2019-07-11] MEDS: SENNA 8.6 MG TAB (SENOKOT) PO SCH (22:30)
[2019-07-12] MEDS: IPRATROPIUM 0.5MG/ALBUTEROL 2.5MG INH SOL UD 3ML (DUONEB)(J7620) NEB SCH ×4 (02:00→21:04)
[2019-07-12 05:53] VITALS: BP 96/55
[2019-07-12] MEDS: LEVOTHYROXINE 50MCG TABLET (0.05MG) PO SCH (06:00)
[2019-07-12 06:13] LABS: HEMATOCRIT 26.3 % (36.0-47.0); HEMOGLOBIN 8.4 g/dl (12.0-15.5); MEAN CORPUSCULAR HGB CONC 31.9 g/dl (32.0-36.5); MEAN CORPUSCULAR VOLUME 78.3 fl (80.0-96.0); PLATELET COUNT, AUTOMATED 206 10^3/uL (150-450); RED BLOOD COUNT 3.36 10^6/uL (4.00-5.40); WHITE BLOOD COUNT 6.1 10^3/uL (4.0-10.0)
[2019-07-12] MEDS: levETIRAcetam 250MG TABLET (KEPPRA) PO SCH ×2 (08:17→20:42)
[2019-07-12] MEDS: ATORVASTATIN 20 MG TAB PO SCH (08:17)
[2019-07-12] MEDS: ACYCLOVIR 200 MG CAPSULE PO SCH ×2 (08:17→20:42)
[2019-07-12] MEDS: BACLOFEN 10 MG TAB PO SCH ×3 (08:17→20:42)
[2019-07-12] MEDS: OMEPRAZOLE 20 MG CAP PO SCH ×2 (08:17→20:39)
[2019-07-12] MEDS: DIVALPROEX 500MG *ER* TAB PO SCH (08:17)
[2019-07-12] MEDS: PREGABALIN 100 MG CAP (LYRICA) PO SCH ×2 (08:17→20:41)
[2019-07-12] MEDS: ASPIRIN 81 MG CHEW TABLET PO SCH (08:17)
[2019-07-12] MEDS: AMANTADINE 100 MG CAP PO SCH ×2 (08:17→20:42)
[2019-07-12] MEDS: POTASSIUM CHLORIDE 10 MEQ SR TABLET PO SCH (08:17)
[2019-07-12] MEDS: LACTULOSE 20 GM/30 ML SYRUP UD PO SCH ×5 (08:18→20:23)
[2019-07-12] MEDS: hydrOXYzine 50 MG TAB PO SCH ×2 (08:18→20:42)
[2019-07-12] MEDS: ARIPiprazole 2 MG TAB PO SCH (08:18)
[2019-07-12] MEDS: DULoxetine 30 MG CAP (CYMBALTA) PO SCH ×2 (08:18→20:40)
[2019-07-12] MEDS: MELOXICAM (MOBIC) 7.5 MG TAB PO SCH (08:18)
[2019-07-12] MEDS: clonazePAM 1 MG TAB PO SCH ×2 (08:18→20:39)
[2019-07-12] MEDS: METOPROLOL SUCC *XL* 25MG TAB (TopROL *XL*) PO SCH (08:18)
[2019-07-12] MEDS: ANALGESIC BALM CRM 120 GM TOP SCH ×2 (08:19→20:44)
[2019-07-12] MEDS: DOCUSATE SODIUM 100 MG CAP PO SCH ×2 (08:19→20:42)
[2019-07-12] MEDS: HEPARIN SOD (PORCINE) 5000 UNITS/ML VIAL SQ SCH ×2 (08:19→20:39)
[2019-07-12] MEDS: NYSTATIN 100,000 UNITS/GM TOPICAL PWD 15 GM TOP SCH ×2 (08:19→20:43)
[2019-07-12 14:00] VITALS: BP 123/80
--- NOTE | 2019-07-12 15:47 | IPNPDOC ---
Text Note Date of Service The patient was seen on 07/12/19. NOTE Subjective: Complains of headache which she states she has had for maybe as long as she has been hospitalized now. Has not improved worsened with adjustment of Depakote. at bedside is concerned patient might have another UTI given the fact that her urine in the porter bag looks turbid to him. A sign of oncoming UTI. He also feels dilantin may be contributing to elevated ammonia levels. We have discussed only her neurologist can make adjustments to Dilantin or discont inue Objective GENERAL: NAD SKIN : Warm, dry intact HEENT: Atraumatic, normocephalic, PERRL, moist mucous membrane CARDIOVASCULAR: Regular rate and rhythm, S1S2, no JVD, BLE 1+ edema RESP: CTAB, some accessory muscle use noted ABDOMEN: BS+ non distended non tender, +urostomy MS: no joint deformities NEURO: Alert and oriented x 3, CN2-12 grossly intact PSYCH: no anxiety or agitation, appropriate mood and affect. A/P Multiple sclerosis -Relapsing type with acute exacerbation -Continued in rehabilitation unit for mobilization and strengthening Hyperammonemia -etiology unclear -Depakote has been discontinued Hypoglycemia -improving -continued fingerstick checks Complicated Urinary tract infection -Completed antibiotic therapy with Merrem -evaluate for new infection only if patient has symptoms with chills, fever... Seizure disorder -No seizure activity since admit -Continue seizure precautions -Continue Keppra and Dilantin Migraine headache -no migraine since admit or with Depakote med adjustment -complains of headache which seems to be chronic for her Hypothyroidism -Continue hormone replacement therapy with Synthroid Morbid obesity, -BMI 40.8 -Therapeutic lifestyle changes DVT prophylaxis -Heparin SQ VS,Fishbone, I+O VS, Fishbone, I+O Laboratory Tests 07/12/19 05:53 Red Blood Count 3.36 L, Mean Corpuscular Volume 78.3 L, Mean Corpuscular Hemoglobin 25.0 L, Mean Corpuscular Hemoglobin Concent 31.9 L, Red Cell Distribution Width 16.3 H Vital Signs Date Time Temp Pulse Resp B/P (MAP) Pulse Ox O2 Delivery O2 Flow Rate FiO2 07/12/19 14:00 97.1 90 18 123/80 (94) 100 I&O- Last 24 Hours up to 6 AM 07/12/19 06:00 Intake Total 1080 ml Output Total 625 ml Balance 455 ml STEFANO MUÑOZ SOLE CEMENTER Jul 12, 2019 15:47
[2019-07-12] MEDS ORDERED: LACTULOSE 20 GM/30 ML SYRUP UD PR ONE (16:00)
[2019-07-12] MEDS: MORPHINE SULFATE ORAL SOLN 10 MG/5 ML UD PO PRN (16:17)
[2019-07-12] MEDS: PHENYTOIN ER 30 MG CAP PO SCH (20:40)
[2019-07-12] MEDS: traZODone 50 MG TAB PO SCH (20:41)
[2019-07-12] MEDS: PHENYTOIN ER 100 MG CAP PO SCH (20:41)
[2019-07-12] MEDS: SENNA 8.6 MG TAB (SENOKOT) PO SCH (20:41)
[2019-07-12 22:00] VITALS: BP 121/75
[2019-07-13] MEDS: IPRATROPIUM 0.5MG/ALBUTEROL 2.5MG INH SOL UD 3ML (DUONEB)(J7620) NEB SCH ×4 (01:25→19:35)
[2019-07-13] MEDS: LEVOTHYROXINE 50MCG TABLET (0.05MG) PO SCH (05:36)
[2019-07-13 06:00] VITALS: BP 100/57
[2019-07-13] MEDS: hydrOXYzine 50 MG TAB PO SCH ×2 (10:46→20:53)
[2019-07-13] MEDS: ACYCLOVIR 200 MG CAPSULE PO SCH ×2 (10:46→21:05)
[2019-07-13] MEDS: HEPARIN SOD (PORCINE) 5000 UNITS/ML VIAL SQ SCH ×2 (10:46→21:04)
[2019-07-13] MEDS: AMANTADINE 100 MG CAP PO SCH ×2 (10:47→21:03)
[2019-07-13] MEDS: DULoxetine 30 MG CAP (CYMBALTA) PO SCH ×2 (10:47→20:54)
[2019-07-13] MEDS: DOCUSATE SODIUM 100 MG CAP PO SCH ×2 (10:47→20:58)
[2019-07-13] MEDS: clonazePAM 1 MG TAB PO SCH ×2 (10:48→20:56)
[2019-07-13] MEDS: OMEPRAZOLE 20 MG CAP PO SCH ×2 (10:48→20:59)
[2019-07-13] MEDS: ASPIRIN 81 MG CHEW TABLET PO SCH (10:48)
[2019-07-13] MEDS: POTASSIUM CHLORIDE 10 MEQ SR TABLET PO SCH (10:48)
[2019-07-13] MEDS: MELOXICAM (MOBIC) 7.5 MG TAB PO SCH (10:48)
[2019-07-13] MEDS: ATORVASTATIN 20 MG TAB PO SCH (10:49)
[2019-07-13] MEDS: BACLOFEN 10 MG TAB PO SCH ×3 (10:49→20:56)
[2019-07-13] MEDS: levETIRAcetam 250MG TABLET (KEPPRA) PO SCH ×2 (10:49→20:58)
[2019-07-13] MEDS: METOPROLOL SUCC *XL* 25MG TAB (TopROL *XL*) PO SCH (10:51)
[2019-07-13] MEDS: PREGABALIN 100 MG CAP (LYRICA) PO SCH ×2 (10:51→20:53)
[2019-07-13] MEDS: ARIPiprazole 2 MG TAB PO SCH (10:52)
[2019-07-13] MEDS: NYSTATIN 100,000 UNITS/GM TOPICAL PWD 15 GM TOP SCH ×2 (10:53→21:00)
[2019-07-13] MEDS: ANALGESIC BALM CRM 120 GM TOP SCH ×2 (10:53→21:00)
--- NOTE | 2019-07-13 12:16 | IPNPDOC ---
PM&R Progress Note DATE OF SERVICE: Jul 12, 2019 Casino Accountant Progress Note Subjective: Patient seen in room stating she feels well and is able to participate in therapy. She is interested in also seeing the Op report from her urostomy and agreeable to working with a local urologist and neurologist. REVIEW OF SYSTEMS: The following is a completed review of systems and has been reviewed. Review of systems otherwise unremarkable. PAIN: Patient self reports chronic pain in bilateral legs burning in nature EYES: No recent vision changes EARS, NOSE, & THROAT: No throat pain, or dysphagia, or rhinorrhea CARDIOVASCULAR: +chest pain (resolved) PULMONARY: Denies shortness of breath GASTROINTESTINAL: Denies constipation/diarrhea GENITOURINARY: +neurogenic bladder with urostomy MUSCULOSKELETAL: generalized weakness, torticollis NEUROLOGICAL:+ MS HEMATOLOGICAL: negative SKIN: urostomy site PSYCHIATRIC: Unremarkable All other review of systems found to be negative. PHYSICAL EXAMINATION: VITAL SIGNS: Please see below. GENERAL: Pleasant and cooperative. No acute distress. Slow speech HEENT: PERRL. +horizontal nystagmus, Clear conjunctiva, + glasses CARDIOVASCULAR: Regular rate and rhythm. No murmurs, rubs, or gallops LUNGS: Clear to auscultation bilaterally. no wheeze No rhonchi ABDOMEN: Soft, nontender, nondistended. Positive bowel sounds. Normal active bowel sounds +urostomy NEUROLOGICAL: Alert and oriented times three. Cranial nerves intact except for CN V decreased sensation to pinprick, sensation to light touch intact throughout all 4 limbs, pin prick diminished throughout all 4 limbs +bilat clonus x 2 beats +torticollis (improving) EXTREMITIES: 4\\5 strength bilateral upper extremities.4\\5 strength right lower extremity. 4/5 strength in left lower extremity. SKIN: urostomy site c/d/i, area of erythema under lower aspect of adhesive ASSESSMENT:53-year-old F with past medical history of MS with seizures who presents status post MS exacerbation in setting of UTI. PLAN: 1. Rehab: PT- work on ambulating short distances Mod-I, stretch/strengthen/preserve ROM of LE OT- improve trunk control, fine motor strength for optimal ADL management, shoulder stabilization exercises, stretch/strengthen/preserve ROM of UE 2. Neuro: progressive-relapsing MS s/p exacerbation in setting of UTI, s/p Solumedrol dosing for flare- c/u Amantadine -seizures, c/u Dilantin, lowered dose to 430mg qHS will recheck levels and c/u Keppra -migraine prevention- will taper off Depakote as likely causing elevated ammonia levels and fluctuating encephalopathy -torticollis- c/u baclofen and stretching 3. Cardiac: pmh HTN c/u metoprolol, medicine consulted to assist in management - chest pain 07/06/19 resolved 4. Resp: encourage incentive spirometry- Duonebs ordered around the clock for reactive airway 5. Endo: hypothyroidism, c/u Synthroid 6.Hypokalemia- s/p IV supplementation, c/u on 20meq oral and adjust prn, monitor Mg levels-stable 7. ID: chronic UTIs in setting of urostomy, s/p 7 day course of IV Meropenem, ID consulted, no further intervention at this time -CT 07/04/19- Punctate nonobstructive lower pole left renal calculus. No hydronephrosis or ureter stone and no apparent complication involving the right lower quadrant ileostomy." 8. GI: still having fluctuating ammonia levels, no liver pathology noted on recent CT scan, likely due to synergistic effect of Keppra on Depakote, will stop Depakote altogether, patient on betablocker which is standard migraine prevention - c/u Rifaximin and lactulose to bring down ammonia levels (will increase to q1hr x 4 doses) -other possible source of ammonia levels is from urostomy, however confirmed with her urologist in [place] that he did not do a ureterosigmoidostomy, but instead utilized an ileal conduit which is not known to have this side effect- Op report request sent today, will set up with urology at [facility] -omeprazole BID, FOBT negative, will recheck as GI bleed can cause elevated ammonia 8. Pain: c/u Lyrica, Duloxetine, Meloxicam- avoid anything with Acetaminophen as she has an allergy 9. Psych: Trazodone for insomnia, Clonazepam for anxiety - halved dose of Abilify as can cause drowsiness 11. DVT ppx: heparin and TEDs, Dopplers negative for DVT 12. Skin: urostomy site adjusted, applied skin prep followed by powder and placed telfa dressing over area of what looks like contact dermatitis 12. Dispo: TBD Allergies Coded Allergies: Cephalosporins (Verified Allergy, Mild, rash, 04/27/19) Sulfa (Sulfonamide Antibiotics) (Verified Allergy, Mild, itchy, 04/27/19) oxycodone (Verified Allergy, Mild, itchy, 04/27/19) hydrocodone (Verified Adverse Reaction, Intermediate, chest pain, 04/27/19) acetaminophen (Verified Adverse Reaction, Mild, NAUSEA, 04/27/19) Vital Signs Vital Signs Date Time Temp Pulse Resp B/P (MAP) Pulse Ox O2 Delivery O2 Flow Rate FiO2 07/13/19 10:51 94 141/91 07/13/19 06:00 96.5 18 93 Laboratory Data Labs 24H Laboratory Tests 2 07/13/19 06:27: Ammonia 58H Current Medications Current Medications Current Medications Medications (Trade) Dose Ordered Sig/Felix Route PRN Reason Start Time Stop Time Status Last Admin Dose Admin Acyclovir (Zovirax) 400 mg BID PO 06/29/19 21:00 07/13/19 10:46 Al Hydrox/Mg Hydrox/Simethicone (Mylanta) 30 ml STAT STAT PO 07/05/19 12:33 07/05/19 12:41 DC 07/05/19 12:42 Albuterol Sulfate (Proventil Neb) 2.5 mg Q2HP PRN NEB SOB/WHEEZING 07/05/19 14:30 Albuterol Sulfate (Proventil Neb) 2.5 mg Q6HP PRN NEB SOB/WHEEZING 06/29/19 19:30 07/05/19 14:18 DC Albuterol/ Ipratropium (Duoneb (Ipr 0.5mg/Alb 2.5mg)) 3 ml RQ6H NEB 07/05/19 14:00 07/13/19 08:01 Albuterol/ Ipratropium (Duoneb (Ipr 0.5mg/Alb 2.5mg)) 3 ml STAT STAT NEB 07/05/19 13:36 07/05/19 13:47 DC 07/05/19 14:18 Amantadine HCl (Symmetrel) 100 mg BID PO 06/29/19 21:00 07/13/19 10:47 Aripiprazole (AbiLIFY) 1 mg DAILY PO 07/12/19 09:00 07/13/19 10:52 Aripiprazole (AbiLIFY) 2 mg DAILY PO 06/30/19 09:00 07/11/19 16:22 DC 07/11/19 10:02 Aspirin (Aspirin Chewable) 81 mg DAILY PO 06/30/19 09:00 07/13/19 10:48 Atorvastatin Calcium (Lipitor) 40 mg DAILY PO 06/30/19 09:00 07/13/19 10:49 Baclofen (Lioresal) 10 mg TID PO 06/29/19 21:00 07/13/19 10:49 Bisacodyl (Dulcolax Suppository) 10 mg DAILYPRN PRN CO CONSTIPATION 06/29/19 19:15 Clonazepam (KlonoPIN) 1 mg BID PO 06/29/19 21:00 07/13/19 10:48 Dextrose (Dextrose 50%) 25 ml ASDIRECTED PRN IV SEE LABEL COMMENTS 07/06/19 12:45 Divalproex Sodium (Depakote Er) 500 mg BID PO 06/29/19 21:00 07/02/19 17:52 DC 07/02/19 11:40 Divalproex Sodium (Depakote Er) 500 mg BID PO 07/03/19 21:00 07/08/19 11:00 DC 07/08/19 09:42 Divalproex Sodium (Depakote Er) 500 mg DAILY PO 07/09/19 09:00 07/12/19 10:10 DC 07/12/19 08:17 Divalproex Sodium (Depakote Er) 500 mg TID PO 07/02/19 21:00 07/03/19 12:48 DC 07/03/19 08:52 Docusate Sodium (Colace) 100 mg BID PO 06/29/19 21:00 07/13/19 10:47 Duloxetine HCl (Cymbalta) 60 mg BID PO 06/29/19 21:00 07/13/19 10:47 Glucagon (Glucagon) 1 mg ASDIRECTED PRN SC SEE LABEL COMMENTS 07/06/19 12:45 Glucose (Glucose) 16 GM ASDIRECTED PRN PO SEE LABEL COMMENTS 07/06/19 12:45 Heparin Sodium (Heparin (Flush)) 500 units ASDIRECTED PRN IV SEE LABEL COMMENTS 06/29/19 19:30 07/05/19 12:55 DC 07/05/19 04:41 Heparin Sodium (Heparin (Flush)) 500 units DAILY IV 06/30/19 09:00 07/05/19 12:55 DC 07/04/19 09:33 Heparin Sodium (Heparin (Flush)) 500 units Q30D@0600 IV 07/06/19 06:00 07/06/19 06:07 Heparin Sodium (Porcine) (Heparin) 5,000 units Q12H SQ 06/30/19 09:00 07/13/19 10:46 Home Med (Med Rec Complete!) ASDIRECTED XX 06/29/19 18:45 06/29/19 18:45 DC Hydroxyzine HCl (Atarax) 50 mg BID PO 06/29/19 21:00 07/13/19 10:46 Lactulose (Cephulac) 15 ml BID PO 07/05/19 17:15 07/07/19 12:22 DC 07/06/19 20:41 Lactulose (Cephulac) 30 ml DAILYPRN PRN PO NO BOWEL MOVEMENT 07/01/19 16:00 07/09/19 08:49 DC 07/07/19 08:44 Lactulose (Cephulac) 30 ml Q1H PO 07/12/19 17:00 07/12/19 20:01 DC 07/12/19 20:23 Lactulose (Cephulac) 30 ml Q1H PO 07/13/19 16:00 07/13/19 19:01 Lactulose (Cephulac) 30 ml TID PO 07/07/19 12:30 07/12/19 16:01 DC 07/12/19 08:18 Levetiracetam (Keppra) 500 mg BID PO 06/29/19 21:00 07/13/19 10:49 Levothyroxine Sodium (Synthroid) 50 mcg DAILY@06 PO 06/30/19 06:00 07/13/19 05:36 Magnesium Sulfate/ Dextrose 1 gm/IV Miscellaneous Supplies 100 ml @ 100 mls/hr Q1H IV 06/29/19 21:00 06/29/19 22:59 DC 06/29/19 22:25 Meloxicam (Mobic) 15 mg DAILY PO 06/30/19 09:00 07/13/19 10:48 Menthol/Methyl Salicylate (Bengay Cream) bilateral calves BID TOP 07/01/19 09:00 07/13/19 10:53 Meropenem 1 gm/IV Miscellaneous Supplies 50 ml @ 100 mls/hr Q8H IV 06/29/19 20:00 07/05/19 10:37 DC 07/05/19 04:06 Metoprolol Succinate (TopROL XL) 25 mg DAILY PO 06/30/19 09:00 07/13/19 10:51 Morphine Sulfate (Morphine Sulfate Oral Solution) 2 mg Q8HP PRN PO SEVERE PAIN (PS 8-10) 07/09/19 10:30 07/12/19 16:17 Nystatin (Mycostatin Powder, Nystop) under breasts BID TOP 06/30/19 09:00 07/13/19 10:53 Omeprazole (PriLOSEC) 40 mg BID PO 06/29/19 21:00 07/13/19 10:48 Phenytoin (Dilantin) 30 mg QHS PO 07/05/19 21:00 07/12/19 20:40 Phenytoin (Dilantin) 400 mg QHS PO 07/05/19 21:00 07/12/19 20:41 Phenytoin (Dilantin) 500 mg QHS PO 06/29/19 21:00 06/29/19 21:00 DC Phenytoin (Dilantin) 500 mg QHS PO 06/29/19 21:00 07/05/19 11:08 DC 07/04/19 21:05 Potassium Chloride (Micro-K Extencaps) 10 meq DAILY PO 06/30/19 09:00 06/30/19 11:33 DC 06/30/19 08:28 Potassium Chloride (Micro-K Extencaps) 20 meq DAILY PO 07/01/19 09:00 07/13/19 10:48 Pregabalin (Lyrica) 300 mg BID PO 06/29/19 21:00 07/13/19 10:51 Promethazine HCl (Phenergan) 25 mg Q4HP PRN PO NAUSEA OR VOMITING 06/29/19 19:30 07/09/19 15:30 Rifaximin (Xifaxan) 400 mg TID PO 07/10/19 09:00 07/14/19 21:01 07/13/19 10:47 Senna (Senokot) 1 tab QHS PO 06/29/19 21:00 06/29/19 21:00 DC Senna (Senokot) 2 tab QHS PO 06/29/19 21:00 07/12/19 20:41 Sodium Chloride (Saline Lock Flush) 10 ml ASDIRECTED PRN IV SEE LABEL COMMENTS 06/29/19 19:30 07/05/19 12:55 DC 07/05/19 04:40 Sodium Chloride (Saline Lock Flush) 10 ml DAILY IV 06/30/19 09:00 07/05/19 12:55 DC 07/04/19 09:33 Sodium Chloride (Saline Lock Flush) 10 ml Q30D@0600 IV 07/06/19 06:00 07/06/19 06:07 Tramadol/ Acetaminophen (Ultracet 37.5/ 325 Mg) 1 tab Q6HP PRN PO PAIN 07/01/19 03:15 07/05/19 12:52 DC 07/05/19 09:58 Trazodone HCl (Desyrel) 150 mg QHS PO 06/29/19 21:00 07/12/19 20:41 MARYBETH KERN MD Jul 13, 2019 12:16
--- NOTE | 2019-07-13 12:18 | IPNPDOC ---
PM&R Progress Note DATE OF SERVICE: Jul 13, 2019 [employer] Progress Note Subjective: Patient seen in room upset about an interaction with staff this morning, but says she feels physically and mentally well today. She is eager to go home and happy to keep participating in therapy. REVIEW OF SYSTEMS: The following is a completed review of systems and has been reviewed. Review of systems otherwise unremarkable. PAIN: Patient self reports chronic pain in bilateral legs burning in nature EYES: No recent vision changes EARS, NOSE, & THROAT: No throat pain, or dysphagia, or rhinorrhea CARDIOVASCULAR: +chest pain (resolved) PULMONARY: Denies shortness of breath GASTROINTESTINAL: Denies constipation/diarrhea GENITOURINARY: +neurogenic bladder with urostomy MUSCULOSKELETAL: generalized weakness, torticollis NEUROLOGICAL:+ MS HEMATOLOGICAL: negative SKIN: urostomy site PSYCHIATRIC: Unremarkable All other review of systems found to be negative. PHYSICAL EXAMINATION: VITAL SIGNS: Please see below. GENERAL: Pleasant and cooperative. No acute distress. Slow speech HEENT: PERRL. +horizontal nystagmus, Clear conjunctiva, + glasses CARDIOVASCULAR: Regular rate and rhythm. No murmurs, rubs, or gallops LUNGS: Clear to auscultation bilaterally. no wheeze No rhonchi ABDOMEN: Soft, nontender, nondistended. Positive bowel sounds. Normal active bowel sounds +urostomy NEUROLOGICAL: Alert and oriented times three. Cranial nerves intact except for CN V decreased sensation to pinprick, sensation to light touch intact throughout all 4 limbs, pin prick diminished throughout all 4 limbs +bilat clonus x 2 beats +torticollis (improving) EXTREMITIES: 4\\5 strength bilateral upper extremities.4\\5 strength right lower extremity. 4/5 strength in left lower extremity. SKIN: urostomy site c/d/i, area of erythema under lower aspect of adhesive ASSESSMENT:53-year-old F with past medical history of MS with seizures who presents status post MS exacerbation in setting of UTI. PLAN: 1. Rehab: PT- work on ambulating short distances Mod-I, stretch/strengthen/preserve ROM of LE OT- improve trunk control, fine motor strength for optimal ADL management, shoulder stabilization exercises, stretch/strengthen/preserve ROM of UE 2. Neuro: progressive-relapsing MS s/p exacerbation in setting of UTI, s/p Solumedrol dosing for flare- c/u Amantadine -seizures, c/u Dilantin, lowered dose to 430mg qHS will recheck levels and c/u Keppra -migraine prevention- will taper off Depakote as likely causing elevated ammonia levels and fluctuating encephalopathy -torticollis- c/u baclofen and stretching 3. Cardiac: pmh HTN c/u metoprolol, medicine consulted to assist in management - chest pain 07/06/19 resolved 4. Resp: encourage incentive spirometry- Duonebs ordered around the clock for reactive airway 5. Endo: hypothyroidism, c/u Synthroid 6.Hypokalemia- s/p IV supplementation, c/u on 20meq oral and adjust prn, monitor Mg levels-stable 7. ID: chronic UTIs in setting of urostomy, s/p 7 day course of IV Meropenem, ID consulted, no further intervention at this time -CT 07/04/19- Punctate nonobstructive lower pole left renal calculus. No hydronephrosis or ureter stone and no apparent complication involving the right lower quadrant ileostomy." 8. GI: ammonia levels improved today to 50s, no liver pathology noted on recent CT scan, likely due to synergistic effect of Keppra on Depakote, will stop Depakote altogether, patient on betablocker which is standard migraine prevention - c/u Rifaximin and lactulose to bring down ammonia levels (will repeat to q1hr x 4 doses today) -other possible source of ammonia levels is from urostomy, however confirmed with her urologist in [place] that he did not do a ureterosigmoidostomy, but instead utilized an ileal conduit which is not known to have this side effect- Op report request sent 07/12/19, will set up with urology at [facility] -omeprazole BID, FOBT negative, will recheck as GI bleed can cause elevated ammonia 8. Pain: c/u Lyrica, Duloxetine, Meloxicam- avoid anything with Acetaminophen as she has an allergy -morphine 2mg q6h prn ordered 9. Psych: Trazodone for insomnia, Clonazepam for anxiety - halved dose of Abilify as can cause drowsiness 11. DVT ppx: heparin and TEDs, Dopplers negative for DVT 12. Skin: urostomy site adjusted, applied skin prep followed by powder and placed telfa dressing over area of what looks like contact dermatitis 12. Dispo: TBD Allergies Coded Allergies: Cephalosporins (Verified Allergy, Mild, rash, 04/27/19) Sulfa (Sulfonamide Antibiotics) (Verified Allergy, Mild, itchy, 04/27/19) oxycodone (Verified Allergy, Mild, itchy, 04/27/19) hydrocodone (Verified Adverse Reaction, Intermediate, chest pain, 04/27/19) acetaminophen (Verified Adverse Reaction, Mild, NAUSEA, 04/27/19) Vital Signs Vital Signs Date Time Temp Pulse Resp B/P (MAP) Pulse Ox O2 Delivery O2 Flow Rate FiO2 07/13/19 10:51 94 141/91 07/13/19 06:00 96.5 18 93 Laboratory Data Labs 24H Laboratory Tests 2 07/13/19 06:27: Ammonia 58H Current Medications Current Medications Current Medications Medications (Trade) Dose Ordered Sig/Felix Route PRN Reason Start Time Stop Time Status Last Admin Dose Admin Acyclovir (Zovirax) 400 mg BID PO 06/29/19 21:00 07/13/19 10:46 Al Hydrox/Mg Hydrox/Simethicone (Mylanta) 30 ml STAT STAT PO 07/05/19 12:33 07/05/19 12:41 DC 07/05/19 12:42 Albuterol Sulfate (Proventil Neb) 2.5 mg Q2HP PRN NEB SOB/WHEEZING 07/05/19 14:30 Albuterol Sulfate (Proventil Neb) 2.5 mg Q6HP PRN NEB SOB/WHEEZING 06/29/19 19:30 07/05/19 14:18 DC Albuterol/ Ipratropium (Duoneb (Ipr 0.5mg/Alb 2.5mg)) 3 ml RQ6H NEB 07/05/19 14:00 07/13/19 08:01 Albuterol/ Ipratropium (Duoneb (Ipr 0.5mg/Alb 2.5mg)) 3 ml STAT STAT NEB 07/05/19 13:36 07/05/19 13:47 DC 07/05/19 14:18 Amantadine HCl (Symmetrel) 100 mg BID PO 06/29/19 21:00 07/13/19 10:47 Aripiprazole (AbiLIFY) 1 mg DAILY PO 07/12/19 09:00 07/13/19 10:52 Aripiprazole (AbiLIFY) 2 mg DAILY PO 06/30/19 09:00 07/11/19 16:22 DC 07/11/19 10:02 Aspirin (Aspirin Chewable) 81 mg DAILY PO 06/30/19 09:00 07/13/19 10:48 Atorvastatin Calcium (Lipitor) 40 mg DAILY PO 06/30/19 09:00 07/13/19 10:49 Baclofen (Lioresal) 10 mg TID PO 06/29/19 21:00 07/13/19 10:49 Bisacodyl (Dulcolax Suppository) 10 mg DAILYPRN PRN [place] CONSTIPATION 06/29/19 19:15 Clonazepam (KlonoPIN) 1 mg BID PO 06/29/19 21:00 07/13/19 10:48 Dextrose (Dextrose 50%) 25 ml ASDIRECTED PRN IV SEE LABEL COMMENTS 07/06/19 12:45 Divalproex Sodium (Depakote Er) 500 mg BID PO 06/29/19 21:00 07/02/19 17:52 DC 07/02/19 11:40 Divalproex Sodium (Depakote Er) 500 mg BID PO 07/03/19 21:00 07/08/19 11:00 DC 07/08/19 09:42 Divalproex Sodium (Depakote Er) 500 mg DAILY PO 07/09/19 09:00 07/12/19 10:10 DC 07/12/19 08:17 Divalproex Sodium (Depakote Er) 500 mg TID PO 07/02/19 21:00 07/03/19 12:48 DC 07/03/19 08:52 Docusate Sodium (Colace) 100 mg BID PO 06/29/19 21:00 07/13/19 10:47 Duloxetine HCl (Cymbalta) 60 mg BID PO 06/29/19 21:00 07/13/19 10:47 Glucagon (Glucagon) 1 mg ASDIRECTED PRN SC SEE LABEL COMMENTS 07/06/19 12:45 Glucose (Glucose) 16 GM ASDIRECTED PRN PO SEE LABEL COMMENTS 07/06/19 12:45 Heparin Sodium (Heparin (Flush)) 500 units ASDIRECTED PRN IV SEE LABEL COMMENTS 06/29/19 19:30 07/05/19 12:55 DC 07/05/19 04:41 Heparin Sodium (Heparin (Flush)) 500 units DAILY IV 06/30/19 09:00 07/05/19 12:55 DC 07/04/19 09:33 Heparin Sodium (Heparin (Flush)) 500 units Q30D@0600 IV 07/06/19 06:00 07/06/19 06:07 Heparin Sodium (Porcine) (Heparin) 5,000 units Q12H SQ 06/30/19 09:00 07/13/19 10:46 Home Med (Med Rec Complete!) ASDIRECTED XX 06/29/19 18:45 06/29/19 18:45 DC Hydroxyzine HCl (Atarax) 50 mg BID PO 06/29/19 21:00 07/13/19 10:46 Lactulose (Cephulac) 15 ml BID PO 07/05/19 17:15 07/07/19 12:22 DC 07/06/19 20:41 Lactulose (Cephulac) 30 ml DAILYPRN PRN PO NO BOWEL MOVEMENT 07/01/19 16:00 07/09/19 08:49 DC 07/07/19 08:44 Lactulose (Cephulac) 30 ml Q1H PO 07/12/19 17:00 07/12/19 20:01 DC 07/12/19 20:23 Lactulose (Cephulac) 30 ml Q1H PO 07/13/19 16:00 07/13/19 19:01 Lactulose (Cephulac) 30 ml TID PO 07/07/19 12:30 07/12/19 16:01 DC 07/12/19 08:18 Levetiracetam (Keppra) 500 mg BID PO 06/29/19 21:00 07/13/19 10:49 Levothyroxine Sodium (Synthroid) 50 mcg DAILY@06 PO 06/30/19 06:00 07/13/19 05:36 Magnesium Sulfate/ Dextrose 1 gm/IV Miscellaneous Supplies 100 ml @ 100 mls/hr Q1H IV 06/29/19 21:00 06/29/19 22:59 DC 06/29/19 22:25 Meloxicam (Mobic) 15 mg DAILY PO 06/30/19 09:00 07/13/19 10:48 Menthol/Methyl Salicylate (Bengay Cream) bilateral calves BID TOP 07/01/19 09:00 07/13/19 10:53 Meropenem 1 gm/IV Miscellaneous Supplies 50 ml @ 100 mls/hr Q8H IV 06/29/19 20:00 07/05/19 10:37 DC 07/05/19 04:06 Metoprolol Succinate (TopROL XL) 25 mg DAILY PO 06/30/19 09:00 07/13/19 10:51 Morphine Sulfate (Morphine Sulfate Oral Solution) 2 mg Q8HP PRN PO SEVERE PAIN (PS 8-10) 07/09/19 10:30 07/12/19 16:17 Nystatin (Mycostatin Powder, Nystop) under breasts BID TOP 06/30/19 09:00 07/13/19 10:53 Omeprazole (PriLOSEC) 40 mg BID PO 06/29/19 21:00 07/13/19 10:48 Phenytoin (Dilantin) 30 mg QHS PO 07/05/19 21:00 07/12/19 20:40 Phenytoin (Dilantin) 400 mg QHS PO 07/05/19 21:00 07/12/19 20:41 Phenytoin (Dilantin) 500 mg QHS PO 06/29/19 21:00 06/29/19 21:00 DC Phenytoin (Dilantin) 500 mg QHS PO 06/29/19 21:00 07/05/19 11:08 DC 07/04/19 21:05 Potassium Chloride (Micro-K Extencaps) 10 meq DAILY PO 06/30/19 09:00 06/30/19 11:33 DC 06/30/19 08:28 Potassium Chloride (Micro-K Extencaps) 20 meq DAILY PO 07/01/19 09:00 07/13/19 10:48 Pregabalin (Lyrica) 300 mg BID PO 06/29/19 21:00 07/13/19 10:51 Promethazine HCl (Phenergan) 25 mg Q4HP PRN PO NAUSEA OR VOMITING 06/29/19 19:30 07/09/19 15:30 Rifaximin (Xifaxan) 400 mg TID PO 07/10/19 09:00 07/14/19 21:01 07/13/19 10:47 Senna (Senokot) 1 tab QHS PO 06/29/19 21:00 06/29/19 21:00 DC Senna (Senokot) 2 tab QHS PO 06/29/19 21:00 07/12/19 20:41 Sodium Chloride (Saline Lock Flush) 10 ml ASDIRECTED PRN IV SEE LABEL COMMENTS 06/29/19 19:30 07/05/19 12:55 DC 07/05/19 04:40 Sodium Chloride (Saline Lock Flush) 10 ml DAILY IV 06/30/19 09:00 07/05/19 12:55 DC 07/04/19 09:33 Sodium Chloride (Saline Lock Flush) 10 ml Q30D@0600 IV 07/06/19 06:00 07/06/19 06:07 Tramadol/ Acetaminophen (Ultracet 37.5/ 325 Mg) 1 tab Q6HP PRN PO PAIN 07/01/19 03:15 07/05/19 12:52 DC 07/05/19 09:58 Trazodone HCl (Desyrel) 150 mg QHS PO 06/29/19 21:00 07/12/19 20:41 MARYBETH KERN MD Jul 13, 2019 12:18
[2019-07-13] MEDS: MORPHINE SULFATE ORAL SOLN 10 MG/5 ML UD PO PRN (13:20)
[2019-07-13 14:00] VITALS: BP 120/69
--- NOTE | 2019-07-13 14:21 | IPNPDOC ---
Text Note Date of Service The patient was seen on 07/13/19. NOTE Subjective: Up to chair at bedside, Complains of headache today, somewhat improved with morphine. denies chest pain, SOB, nausea, chills, abdominal pain Objective GENERAL: NAD SKIN : Warm, dry intact HEENT: Atraumatic, normocephalic, PERRL, moist mucous membrane CARDIOVASCULAR: Regular rate and rhythm, S1S2, no JVD, BLE 1+ edema RESP: CTAB, some accessory muscle use noted ABDOMEN: BS+ non distended non tender, +urostomy MS: no joint deformities NEURO: Alert and oriented x 3, CN2-12 grossly intact PSYCH: no anxiety or agitation, appropriate mood and affect. A/P Multiple sclerosis -Relapsing type with acute exacerbation -Continued in rehabilitation unit for mobilization and strengthening Hyperammonemia -Improving at 59. Today Hypoglycemia -Resolved Complicated Urinary tract infection Resolved Seizure disorder -Stable -Continue Keppra and Dilantin Migraine headache Continue morphine -Depakote was discontinued due to high ammonia levels Hypothyroidism -Continue hormone replacement therapy with Synthroid Morbid obesity, -BMI 40.8 -Therapeutic lifestyle changes DVT prophylaxis -Heparin SQ VS,Fishbone, I+O VS, Fishbone, I+O Vital Signs Date Time Temp Pulse Resp B/P (MAP) Pulse Ox O2 Delivery O2 Flow Rate FiO2 07/13/19 13:20 18 07/13/19 10:51 94 141/91 07/13/19 06:00 96.5 93 I&O- Last 24 Hours up to 6 AM 07/13/19 06:00 Intake Total 1070 ml Output Total 825 ml Balance 245 ml STEFANO MUÑOZP Jul 13, 2019 14:21
[2019-07-13] MEDS ORDERED: NYSTATIN 100,000 UNITS/GM TOPICAL PWD 15 GM TOP SCH (16:00)
[2019-07-13] MEDS: LACTULOSE 20 GM/30 ML SYRUP UD PO SCH ×2 (17:21→19:00)
[2019-07-13 20:00] VITALS: BP 143/75
[2019-07-13] MEDS: SENNA 8.6 MG TAB (SENOKOT) PO SCH (20:53)
[2019-07-13] MEDS: PHENYTOIN ER 100 MG CAP PO SCH (20:57)
[2019-07-13] MEDS: PHENYTOIN ER 30 MG CAP PO SCH (20:57)
[2019-07-13] MEDS: traZODone 50 MG TAB PO SCH (20:59)
[2019-07-14] MEDS: IPRATROPIUM 0.5MG/ALBUTEROL 2.5MG INH SOL UD 3ML (DUONEB)(J7620) NEB SCH ×4 (01:33→19:11)
[2019-07-14 06:00] VITALS: BP 100/62
[2019-07-14] MEDS: LEVOTHYROXINE 50MCG TABLET (0.05MG) PO SCH (06:43)
[2019-07-14 06:52] LABS: HEMATOCRIT 25.7 % (36.0-47.0); MEAN CORPUSCULAR HEMOGLOBIN 24.8 pg (27.0-33.0); MEAN CORPUSCULAR HGB CONC 31.1 g/dl (32.0-36.5); MEAN CORPUSCULAR VOLUME 79.6 fl (80.0-96.0); PLATELET COUNT, AUTOMATED 187 10^3/uL (150-450); RED BLOOD COUNT 3.23 10^6/uL (4.00-5.40); WHITE BLOOD COUNT 5.4 10^3/uL (4.0-10.0)
[2019-07-14 07:24] LABS: CALCIUM LEVEL 8.4 MG/DL (8.5-10.1); CREATININE FOR GFR 1.21 MG/DL (0.55-1.30); GLOMERULAR FILTRATION RATE 49.9 (>51); PHENYTOIN (DILANTIN) 20.3 UG/ML (10.0-20.0); POTASSIUM SERUM 4.2 MEQ/L (3.5-5.1)
[2019-07-14] MEDS: MELOXICAM (MOBIC) 7.5 MG TAB PO SCH (08:15)
[2019-07-14] MEDS: HEPARIN SOD (PORCINE) 5000 UNITS/ML VIAL SQ SCH ×2 (08:15→21:58)
[2019-07-14] MEDS: ASPIRIN 81 MG CHEW TABLET PO SCH (08:15)
[2019-07-14] MEDS: DULoxetine 30 MG CAP (CYMBALTA) PO SCH ×2 (08:16→21:58)
[2019-07-14] MEDS: hydrOXYzine 50 MG TAB PO SCH ×2 (08:16→21:58)
[2019-07-14] MEDS: POTASSIUM CHLORIDE 10 MEQ SR TABLET PO SCH (08:16)
[2019-07-14] MEDS: OMEPRAZOLE 20 MG CAP PO SCH ×2 (08:16→21:57)
[2019-07-14] MEDS: clonazePAM 1 MG TAB PO SCH ×2 (08:16→21:57)
[2019-07-14] MEDS: ACYCLOVIR 200 MG CAPSULE PO SCH ×2 (08:16→21:56)
[2019-07-14] MEDS: levETIRAcetam 250MG TABLET (KEPPRA) PO SCH ×2 (08:16→21:57)
[2019-07-14] MEDS: DOCUSATE SODIUM 100 MG CAP PO SCH ×2 (08:16→21:00)
[2019-07-14] MEDS: AMANTADINE 100 MG CAP PO SCH ×2 (08:17→21:57)
[2019-07-14] MEDS: ATORVASTATIN 20 MG TAB PO SCH (08:17)
[2019-07-14] MEDS: PREGABALIN 100 MG CAP (LYRICA) PO SCH ×2 (08:17→21:57)
[2019-07-14] MEDS: METOPROLOL SUCC *XL* 25MG TAB (TopROL *XL*) PO SCH ×2 (08:17→08:53)
[2019-07-14] MEDS: BACLOFEN 10 MG TAB PO SCH ×3 (08:17→21:57)
[2019-07-14] MEDS: ARIPiprazole 2 MG TAB PO SCH (08:20)
[2019-07-14] MEDS: ANALGESIC BALM CRM 120 GM TOP SCH ×2 (08:21→21:00)
[2019-07-14] MEDS: NYSTATIN 100,000 UNITS/GM TOPICAL PWD 15 GM TOP SCH ×2 (08:21→21:00)
[2019-07-14] MEDS: LACTULOSE 20 GM/30 ML SYRUP UD PO SCH ×6 (10:18→15:00)
[2019-07-14] MEDS ORDERED: LACTULOSE 20 GM/30 ML SYRUP UD PR ONE (11:00)
[2019-07-14 14:00] VITALS: BP 132/90
[2019-07-14] MEDS ORDERED: BISACODYL 10 MG SUPP PR ONE (14:00)
--- NOTE | 2019-07-14 14:45 | IPNPDOC ---
PM&R Progress Note DATE OF SERVICE: Jul 14, 2019 [employer] Progress Note Subjective: Patient seen in room reporting her right ankle still feels sore despite having an Xray on 06/30/19 which was negative for fracture. She has not had a bowel mo vement today. REVIEW OF SYSTEMS: The following is a completed review of systems and has been reviewed. Review of systems otherwise unremarkable. PAIN: Patient self reports chronic pain in bilateral legs burning in nature EYES: No recent vision changes EARS, NOSE, & THROAT: No throat pain, or dysphagia, or rhinorrhea CARDIOVASCULAR: +chest pain (resolved) PULMONARY: Denies shortness of breath GASTROINTESTINAL: Denies constipation/diarrhea GENITOURINARY: +neurogenic bladder with urostomy MUSCULOSKELETAL: generalized weakness, torticollis NEUROLOGICAL:+ MS HEMATOLOGICAL: negative SKIN: urostomy site PSYCHIATRIC: Unremarkable All other review of systems found to be negative. PHYSICAL EXAMINATION: VITAL SIGNS: Please see below. GENERAL: Pleasant and cooperative. No acute distress. Slow speech HEENT: PERRL. +horizontal nystagmus, Clear conjunctiva, + glasses CARDIOVASCULAR: Regular rate and rhythm. No murmurs, rubs, or gallops LUNGS: Clear to auscultation bilaterally. no wheeze No rhonchi ABDOMEN: Soft, nontender, nondistended. Positive bowel sounds. Normal active bowel sounds +urostomy (draining clear urine) NEUROLOGICAL: Alert and oriented times three. Cranial nerves intact except for CN V decreased sensation to pinprick, sensation to light touch intact throughout all 4 limbs, pin prick diminished throughout all 4 limbs +bilat clonus x 2 beats +torticollis (improving) EXTREMITIES: 4\\5 strength bilateral upper extremities.4\\5 strength right lower extremity. 4/5 strength in left lower extremity. right ankle - mild TTP medal malleoli, no varus/valgus laxity or pain, negative anterior drawer test, no swelling or warmth SKIN: urostomy site c/d/i, area of erythema under lower aspect of adhesive ASSESSMENT:53-year-old F with past medical history of MS with seizures who presents status post MS exacerbation in setting of UTI. PLAN: 1. Rehab: PT- work on ambulating short distances Mod-I, stretch/strengthen/preserve ROM of LE OT- improve trunk control, fine motor strength for optimal ADL management, shoulder stabilization exercises, stretch/strengthen/preserve ROM of UE 2. Neuro: progressive-relapsing MS s/p exacerbation in setting of UTI, s/p Solumedrol dosing for flare- c/u Amantadine -seizures, c/u Dilantin, lowered dose to 430mg qHS-repeat dilantin level 07/14/19 20, c/u current dose -c/u Keppra -migraine prevention- tapered off Depakote as likely causing elevated ammonia levels and fluctuating encephalopathy -torticollis- c/u baclofen and stretching 3. Cardiac: pmh HTN c/u metoprolol, medicine consulted to assist in management - chest pain 07/06/19 resolved 4. Resp: encourage incentive spirometry- Duonebs ordered around the clock for reactive airway 5. Endo: hypothyroidism, c/u Synthroid 6.Hypokalemia- s/p IV supplementation, c/u on 20meq oral and adjust prn, monitor Mg levels-stable 7. ID: chronic UTIs in setting of urostomy, s/p 7 day course of IV Meropenem, ID consulted, no further intervention at this time -CT 07/04/19- Punctate nonobstructive lower pole left renal calculus. No hydronephrosis or ureter stone and no apparent complication involving the right lower quadrant ileostomy." 8. GI: ammonia levels improved today to 50s, no liver pathology noted on recent CT scan, likely due to synergistic effect of Keppra on Depakote, will stop Depakote altogether, patient on betablocker which is standard migraine prevention - c/u Rifaximin and lactulose to bring down ammonia levels (will repeat q1hr today to be stopped after 2 bowel movements)-slowly improving -other possible source of ammonia levels is from urostomy, however confirmed with her urologist in [place] that he did not do a ureterosigmoidostomy, but instead utilized an ileal conduit which is not known to have this side effect- Op report request sent 07/12/19, will set up with urology at [facility] -omeprazole BID, FOBT negative, will recheck as GI bleed can cause elevated ammonia 8. Pain: c/u Lyrica, Duloxetine, Meloxicam- avoid anything with Acetaminophen as she has an allergy -morphine 2mg q6h prn ordered - right ankle pain likely due to fibromyalgia, possibly a ligamental sprain, will acewrap in therapy for weight bearing 9. Psych: Trazodone for insomnia, Clonazepam for anxiety - halved dose of Abilify as can cause drowsiness 11. DVT ppx: heparin and TEDs, Dopplers negative for DVT 12. Skin: urostomy site adjusted, applied skin prep followed by nystatin powder and telfa dressing over area of what looks like contact dermatitis vs fungal ra sh- improving 12. Dispo: TBD Allergies Coded Allergies: Cephalosporins (Verified Allergy, Mild, rash, 04/27/19) Sulfa (Sulfonamide Antibiotics) (Verified Allergy, Mild, itchy, 04/27/19) oxycodone (Verified Allergy, Mild, itchy, 04/27/19) hydrocodone (Verified Adverse Reaction, Intermediate, chest pain, 04/27/19) acetaminophen (Verified Adverse Reaction, Mild, NAUSEA, 04/27/19) Vital Signs Vital Signs Date Time Temp Pulse Resp B/P (MAP) Pulse Ox O2 Delivery O2 Flow Rate FiO2 07/14/19 08:53 85 100/62 07/14/19 06:00 97.8 18 92 Laboratory Data CBC/BMP Laboratory Tests 07/14/19 06:32 Red Blood Count 3.23 L, Mean Corpuscular Volume 79.6 L, Mean Corpuscular Hemoglobin 24.8 L, Mean Corpuscular Hemoglobin Concent 31.1 L, Red Cell Distribution Width 16.1 H, Calcium Level 8.4 L Labs 24H Laboratory Tests 2 07/14/19 06:32: Nucleated Red Blood Cells % (auto) 0.0, Anion Gap 10, Glomerular Filtration Rate 49.9L, Blood Urea Nitrogen 13, Creatinine 1.21, Sodium Level 144, Potassium Level 4.2, Chloride Level 111H, Carbon Dioxide Level 23, Calcium Level 8.4L, Ammonia 51H, Phenytoin (Dilantin) Level 20.3H Current Medications Current Medications Current Medications Medications (Trade) Dose Ordered Sig/Felix Route PRN Reason Start Time Stop Time Status Last Admin Dose Admin Acyclovir (Zovirax) 400 mg BID PO 06/29/19 21:00 07/14/19 08:16 Al Hydrox/Mg Hydrox/Simethicone (Mylanta) 30 ml STAT STAT PO 07/05/19 12:33 07/05/19 12:41 DC 07/05/19 12:42 Albuterol Sulfate (Proventil Neb) 2.5 mg Q2HP PRN NEB SOB/WHEEZING 07/05/19 14:30 Albuterol Sulfate (Proventil Neb) 2.5 mg Q6HP PRN NEB SOB/WHEEZING 06/29/19 19:30 07/05/19 14:18 DC Albuterol/ Ipratropium (Duoneb (Ipr 0.5mg/Alb 2.5mg)) 3 ml RQ6H NEB 07/05/19 14:00 07/13/19 19:35 Albuterol/ Ipratropium (Duoneb (Ipr 0.5mg/Alb 2.5mg)) 3 ml STAT STAT NEB 07/05/19 13:36 07/05/19 13:47 DC 07/05/19 14:18 Amantadine HCl (Symmetrel) 100 mg BID PO 06/29/19 21:00 07/14/19 08:17 Aripiprazole (AbiLIFY) 1 mg DAILY PO 07/12/19 09:00 07/14/19 08:20 Aripiprazole (AbiLIFY) 2 mg DAILY PO 06/30/19 09:00 07/11/19 16:22 DC 07/11/19 10:02 Aspirin (Aspirin Chewable) 81 mg DAILY PO 06/30/19 09:00 07/14/19 08:15 Atorvastatin Calcium (Lipitor) 40 mg DAILY PO 06/30/19 09:00 07/14/19 08:17 Baclofen (Lioresal) 10 mg TID PO 06/29/19 21:00 07/14/19 08:17 Bisacodyl (Dulcolax Suppository) 10 mg DAILYPRN PRN [place] 06/29/19 19:15 Clonazepam (KlonoPIN) 1 mg BID PO 06/29/19 21:00 07/14/19 08:16 Dextrose (Dextrose 50%) 25 ml ASDIRECTED PRN IV SEE LABEL COMMENTS 07/06/19 12:45 Divalproex Sodium (Depakote Er) 500 mg BID PO 06/29/19 21:00 07/02/19 17:52 DC 07/02/19 11:40 Divalproex Sodium (Depakote Er) 500 mg BID PO 07/03/19 21:00 07/08/19 11:00 DC 07/08/19 09:42 Divalproex Sodium (Depakote Er) 500 mg DAILY PO 07/09/19 09:00 07/12/19 10:10 DC 07/12/19 08:17 Divalproex Sodium (Depakote Er) 500 mg TID PO 07/02/19 21:00 07/03/19 12:48 DC 07/03/19 08:52 Docusate Sodium (Colace) 100 mg BID PO 06/29/19 21:00 07/14/19 08:16 Duloxetine HCl (Cymbalta) 60 mg BID PO 06/29/19 21:00 07/14/19 08:16 Glucagon (Glucagon) 1 mg ASDIRECTED PRN SC SEE LABEL COMMENTS 07/06/19 12:45 Glucose (Glucose) 16 GM ASDIRECTED PRN PO SEE LABEL COMMENTS 07/06/19 12:45 Heparin Sodium (Heparin (Flush)) 500 units ASDIRECTED PRN IV SEE LABEL COMMENTS 06/29/19 19:30 07/05/19 12:55 DC 07/05/19 04:41 Heparin Sodium (Heparin (Flush)) 500 units DAILY IV 06/30/19 09:00 07/05/19 12:55 DC 07/04/19 09:33 Heparin Sodium (Heparin (Flush)) 500 units Q30D@0600 IV 07/06/19 06:00 07/06/19 06:07 Heparin Sodium (Porcine) (Heparin) 5,000 units Q12H SQ 06/30/19 09:00 07/14/19 08:15 Home Med (Med Rec Complete!) ASDIRECTED XX 06/29/19 18:45 06/29/19 18:45 DC Hydroxyzine HCl (Atarax) 50 mg BID PO 06/29/19 21:00 07/14/19 08:16 Lactulose (Cephulac) 15 ml BID PO 07/05/19 17:15 07/07/19 12:22 DC 07/06/19 20:41 Lactulose (Cephulac) 30 ml DAILYPRN PRN PO NO BOWEL MOVEMENT 07/01/19 16:00 07/09/19 08:49 DC 07/07/19 08:44 Lactulose (Cephulac) 30 ml Q1H PO 07/12/19 17:00 07/12/19 20:01 DC 07/12/19 20:23 Lactulose (Cephulac) 30 ml Q1H PO 07/13/19 16:00 07/13/19 19:01 DC 07/13/19 19:00 Lactulose (Cephulac) 30 ml Q1H PO 07/14/19 10:00 07/14/19 13:11 Lactulose (Cephulac) 30 ml TID PO 07/07/19 12:30 07/12/19 16:01 DC 07/12/19 08:18 Levetiracetam (Keppra) 500 mg BID PO 06/29/19 21:00 07/14/19 08:16 Levothyroxine Sodium (Synthroid) 50 mcg DAILY@06 PO 06/30/19 06:00 07/14/19 06:43 Magnesium Sulfate/ Dextrose 1 gm/IV Miscellaneous Supplies 100 ml @ 100 mls/hr Q1H IV 06/29/19 21:00 06/29/19 22:59 DC 06/29/19 22:25 Meloxicam (Mobic) 15 mg DAILY PO 06/30/19 09:00 07/14/19 08:15 Menthol/Methyl Salicylate (Bengay Cream) bilateral calves BID TOP 07/01/19 09:00 07/13/19 10:53 Meropenem 1 gm/IV Miscellaneous Supplies 50 ml @ 100 mls/hr Q8H IV 06/29/19 20:00 07/05/19 10:37 DC 07/05/19 04:06 Metoprolol Succinate (TopROL XL) 25 mg DAILY PO 06/30/19 09:00 07/13/19 10:51 Morphine Sulfate (Morphine Sulfate Oral Solution) 2 mg Q6H PRN PO SEVERE PAIN (PS 8-10) 07/13/19 12:15 07/13/19 13:20 Morphine Sulfate (Morphine Sulfate Oral Solution) 2 mg Q8HP PRN PO SEVERE PAIN (PS 8-10) 07/09/19 10:30 07/13/19 12:14 DC 07/12/19 16:17 Nystatin (Mycostatin Powder, Nystop) 1 dose ASDIRECTED TOP 07/13/19 16:00 07/13/19 17:01 DC Nystatin (Mycostatin Powder, Nystop) under breasts BID TOP 06/30/19 09:00 07/13/19 10:53 Omeprazole (PriLOSEC) 40 mg BID PO 06/29/19 21:00 07/14/19 08:16 Phenytoin (Dilantin) 30 mg QHS PO 07/05/19 21:00 07/13/19 20:57 Phenytoin (Dilantin) 400 mg QHS PO 07/05/19 21:00 07/13/19 20:57 Phenytoin (Dilantin) 500 mg QHS PO 06/29/19 21:00 06/29/19 21:00 DC Phenytoin (Dilantin) 500 mg QHS PO 06/29/19 21:00 07/05/19 11:08 DC 07/04/19 21:05 Potassium Chloride (Micro-K Extencaps) 10 meq DAILY PO 06/30/19 09:00 06/30/19 11:33 DC 06/30/19 08:28 Potassium Chloride (Micro-K Extencaps) 20 meq DAILY PO 07/01/19 09:00 07/14/19 08:16 Pregabalin (Lyrica) 300 mg BID PO 06/29/19 21:00 07/14/19 08:17 Promethazine HCl (Phenergan) 25 mg Q4HP PRN PO NAUSEA OR VOMITING 06/29/19 19:30 07/09/19 15:30 Rifaximin (Xifaxan) 400 mg TID PO 07/10/19 09:00 07/19/19 21:01 07/14/19 08:15 Senna (Senokot) 1 tab QHS PO 06/29/19 21:00 06/29/19 21:00 DC Senna (Senokot) 2 tab QHS PO 06/29/19 21:00 07/13/19 20:53 Sodium Chloride (Saline Lock Flush) 10 ml ASDIRECTED PRN IV SEE LABEL COMMENTS 06/29/19 19:30 07/05/19 12:55 DC 07/05/19 04:40 Sodium Chloride (Saline Lock Flush) 10 ml DAILY IV 06/30/19 09:00 07/05/19 12:55 DC 07/04/19 09:33 Sodium Chloride (Saline Lock Flush) 10 ml Q30D@0600 IV 07/06/19 06:00 07/06/19 06:07 Tramadol/ Acetaminophen (Ultracet 37.5/ 325 Mg) 1 tab Q6HP PRN PO PAIN 07/01/19 03:15 07/05/19 12:52 DC 07/05/19 09:58 Trazodone HCl (Desyrel) 150 mg QHS PO 06/29/19 21:00 07/13/19 20:59 MARYBETH KERN MD Jul 14, 2019 14:45
[2019-07-14] MEDS: MORPHINE SULFATE ORAL SOLN 10 MG/5 ML UD PO PRN (15:14)
[2019-07-14] MEDS: SENNA 8.6 MG TAB (SENOKOT) PO SCH (21:00)
[2019-07-14] MEDS: PHENYTOIN ER 30 MG CAP PO SCH (21:56)
[2019-07-14] MEDS: PHENYTOIN ER 100 MG CAP PO SCH (21:57)
[2019-07-14] MEDS: traZODone 50 MG TAB PO SCH (21:57)
[2019-07-14 22:00] VITALS: BP 127/66
[2019-07-15] MEDS: IPRATROPIUM 0.5MG/ALBUTEROL 2.5MG INH SOL UD 3ML (DUONEB)(J7620) NEB SCH ×4 (01:35→20:32)
[2019-07-15] MEDS: LEVOTHYROXINE 50MCG TABLET (0.05MG) PO SCH (05:41)
[2019-07-15 06:57] VITALS: BP 117/54
[2019-07-15] MEDS: ANALGESIC BALM CRM 120 GM TOP SCH ×2 (09:00→21:00)
[2019-07-15] MEDS: clonazePAM 1 MG TAB PO SCH ×2 (09:33→21:36)
[2019-07-15] MEDS: POTASSIUM CHLORIDE 10 MEQ SR TABLET PO SCH (09:33)
[2019-07-15] MEDS: DULoxetine 30 MG CAP (CYMBALTA) PO SCH ×2 (09:34→21:36)
[2019-07-15] MEDS: BACLOFEN 10 MG TAB PO SCH ×3 (09:34→21:37)
[2019-07-15] MEDS: METOPROLOL SUCC *XL* 25MG TAB (TopROL *XL*) PO SCH (09:34)
[2019-07-15] MEDS: hydrOXYzine 50 MG TAB PO SCH ×2 (09:34→21:36)
[2019-07-15] MEDS: MELOXICAM (MOBIC) 7.5 MG TAB PO SCH (09:34)
[2019-07-15] MEDS: ASPIRIN 81 MG CHEW TABLET PO SCH (09:34)
[2019-07-15] MEDS: DOCUSATE SODIUM 100 MG CAP PO SCH ×2 (09:35→21:00)
[2019-07-15] MEDS: ACYCLOVIR 200 MG CAPSULE PO SCH ×2 (09:35→21:35)
[2019-07-15] MEDS: PREGABALIN 100 MG CAP (LYRICA) PO SCH ×2 (09:35→21:36)
[2019-07-15] MEDS: OMEPRAZOLE 20 MG CAP PO SCH ×2 (09:35→21:35)
[2019-07-15] MEDS: AMANTADINE 100 MG CAP PO SCH ×2 (09:35→21:35)
[2019-07-15] MEDS: ATORVASTATIN 20 MG TAB PO SCH (09:36)
[2019-07-15] MEDS: levETIRAcetam 250MG TABLET (KEPPRA) PO SCH ×2 (09:36→21:36)
[2019-07-15] MEDS: HEPARIN SOD (PORCINE) 5000 UNITS/ML VIAL SQ SCH ×2 (09:37→21:35)
[2019-07-15] MEDS: LACTULOSE 20 GM/30 ML SYRUP UD PO SCH ×4 (09:37→18:01)
[2019-07-15] MEDS: ARIPiprazole 2 MG TAB PO SCH (09:38)
[2019-07-15] MEDS: NYSTATIN 100,000 UNITS/GM TOPICAL PWD 15 GM TOP SCH ×2 (09:45→21:00)
[2019-07-15 14:00] VITALS: BP 101/51
[2019-07-15 19:49] VITALS: BP 123/53
[2019-07-15] MEDS: SENNA 8.6 MG TAB (SENOKOT) PO SCH (21:00)
[2019-07-15] MEDS: PHENYTOIN ER 100 MG CAP PO SCH (21:35)
[2019-07-15] MEDS: PHENYTOIN ER 30 MG CAP PO SCH (21:35)
[2019-07-15] MEDS: traZODone 50 MG TAB PO SCH (21:36)
[2019-07-16] MEDS: IPRATROPIUM 0.5MG/ALBUTEROL 2.5MG INH SOL UD 3ML (DUONEB)(J7620) NEB SCH ×4 (02:00→20:01)
[2019-07-16] MEDS: LEVOTHYROXINE 50MCG TABLET (0.05MG) PO SCH (05:29)
[2019-07-16 05:31] VITALS: BP 112/68
[2019-07-16] MEDS: ANALGESIC BALM CRM 120 GM TOP SCH ×2 (09:00→21:00)
--- NOTE | 2019-07-16 09:30 | REP ---
SUPINE ABDOMEN: 07/15/2019. Comparison: CT abdomen and pelvis 07/04/2019. Clinical history: Abdominal pain. Evaluate for fecal retention. Gas scattered throughout the colon and small bowel loops with little or no fecal residue evident on this study. There is no sign of obstruction. No mass. Surgical clips in the right pelvis. Bones with some degenerative changes. Impression: 1. No evidence of any significant fecal retention or obstruction. Electronically Signed by Odin Lan MD 07/16/2019 08:15 P
[2019-07-16] MEDS: PREGABALIN 100 MG CAP (LYRICA) PO SCH ×2 (10:04→22:06)
[2019-07-16] MEDS: ACYCLOVIR 200 MG CAPSULE PO SCH ×2 (10:04→22:05)
[2019-07-16] MEDS: DOCUSATE SODIUM 100 MG CAP PO SCH ×2 (10:04→22:07)
[2019-07-16] MEDS: ASPIRIN 81 MG CHEW TABLET PO SCH (10:05)
[2019-07-16] MEDS: ARIPiprazole 2 MG TAB PO SCH (10:05)
[2019-07-16] MEDS: ATORVASTATIN 20 MG TAB PO SCH (10:05)
[2019-07-16] MEDS: METOPROLOL SUCC *XL* 25MG TAB (TopROL *XL*) PO SCH (10:06)
[2019-07-16] MEDS: hydrOXYzine 50 MG TAB PO SCH ×2 (10:06→22:07)
[2019-07-16] MEDS: AMANTADINE 100 MG CAP PO SCH ×2 (10:06→22:07)
[2019-07-16] MEDS: MELOXICAM (MOBIC) 7.5 MG TAB PO SCH (10:06)
[2019-07-16] MEDS: levETIRAcetam 250MG TABLET (KEPPRA) PO SCH ×2 (10:08→22:07)
[2019-07-16] MEDS: BACLOFEN 10 MG TAB PO SCH ×3 (10:08→22:07)
[2019-07-16] MEDS: OMEPRAZOLE 20 MG CAP PO SCH ×2 (10:08→22:07)
[2019-07-16] MEDS: POTASSIUM CHLORIDE 10 MEQ SR TABLET PO SCH (10:08)
[2019-07-16] MEDS: clonazePAM 1 MG TAB PO SCH ×2 (10:08→22:07)
[2019-07-16] MEDS: HEPARIN SOD (PORCINE) 5000 UNITS/ML VIAL SQ SCH ×2 (10:09→22:04)
[2019-07-16] MEDS: DULoxetine 30 MG CAP (CYMBALTA) PO SCH ×2 (10:09→22:07)
[2019-07-16] MEDS: NYSTATIN 100,000 UNITS/GM TOPICAL PWD 15 GM TOP SCH ×2 (10:10→21:00)
[2019-07-16 10:57] VITALS: BP 112/68
[2019-07-16 14:00] VITALS: BP 128/24
[2019-07-16] MEDS: MORPHINE SULFATE ORAL SOLN 10 MG/5 ML UD PO PRN (15:42)
[2019-07-16 20:00] VITALS: BP 111/69
[2019-07-16] MEDS: PHENYTOIN ER 100 MG CAP PO SCH (22:05)
[2019-07-16] MEDS: PHENYTOIN ER 30 MG CAP PO SCH (22:05)
[2019-07-16] MEDS: traZODone 50 MG TAB PO SCH (22:06)
[2019-07-16] MEDS: SENNA 8.6 MG TAB (SENOKOT) PO SCH (22:06)
[2019-07-17] MEDS: IPRATROPIUM 0.5MG/ALBUTEROL 2.5MG INH SOL UD 3ML (DUONEB)(J7620) NEB SCH ×4 (00:23→20:04)
[2019-07-17 05:58] VITALS: BP 106/60
[2019-07-17] MEDS: LEVOTHYROXINE 50MCG TABLET (0.05MG) PO SCH (06:02)
[2019-07-17 08:00] VITALS: BP 101/59
[2019-07-17] MEDS: hydrOXYzine 50 MG TAB PO SCH ×2 (08:21→20:12)
[2019-07-17] MEDS: levETIRAcetam 250MG TABLET (KEPPRA) PO SCH ×2 (08:21→20:12)
[2019-07-17] MEDS: DULoxetine 30 MG CAP (CYMBALTA) PO SCH ×2 (08:21→20:12)
[2019-07-17] MEDS: HEPARIN SOD (PORCINE) 5000 UNITS/ML VIAL SQ SCH ×2 (08:21→20:09)
[2019-07-17] MEDS: clonazePAM 1 MG TAB PO SCH ×2 (08:21→20:11)
[2019-07-17] MEDS: OMEPRAZOLE 20 MG CAP PO SCH ×2 (08:22→20:10)
[2019-07-17] MEDS: PREGABALIN 100 MG CAP (LYRICA) PO SCH ×2 (08:22→20:11)
[2019-07-17] MEDS: ASPIRIN 81 MG CHEW TABLET PO SCH (08:22)
[2019-07-17] MEDS: POTASSIUM CHLORIDE 10 MEQ SR TABLET PO SCH (08:22)
[2019-07-17] MEDS: ATORVASTATIN 20 MG TAB PO SCH (08:22)
[2019-07-17] MEDS: ARIPiprazole 2 MG TAB PO SCH (08:23)
[2019-07-17] MEDS: MELOXICAM (MOBIC) 7.5 MG TAB PO SCH (08:23)
[2019-07-17] MEDS: DOCUSATE SODIUM 100 MG CAP PO SCH ×2 (08:23→20:11)
[2019-07-17] MEDS: BACLOFEN 10 MG TAB PO SCH ×3 (08:24→20:11)
[2019-07-17] MEDS: ANALGESIC BALM CRM 120 GM TOP SCH ×2 (08:24→20:12)
[2019-07-17] MEDS: ACYCLOVIR 200 MG CAPSULE PO SCH ×2 (08:24→20:11)
[2019-07-17] MEDS: METOPROLOL SUCC *XL* 25MG TAB (TopROL *XL*) PO SCH (08:25)
[2019-07-17] MEDS: NYSTATIN 100,000 UNITS/GM TOPICAL PWD 15 GM TOP SCH ×2 (08:25→20:13)
[2019-07-17] MEDS: AMANTADINE 100 MG CAP PO SCH ×2 (08:30→20:11)
[2019-07-17] MEDS: LACTULOSE 20 GM/30 ML SYRUP UD PO SCH ×4 (13:52→17:15)
[2019-07-17 14:00] VITALS: BP 100/65
--- NOTE | 2019-07-17 17:06 | IPNPDOC ---
PM&R Progress Note DATE OF SERVICE: Jul 17, 2019 [employer] Progress Note Subjective: Patient seen in room today stating she feels fine, she states she did not have a bowel movement yesterday, however one was documented. She is able to participate in therapy and understands she is functionally ready to go home, but that she should stay until her elevated ammonia levels resolve. Her Urostomy was changed and nytsatin powder applied to area of rash, instructed on how to do this dressing, and overall looking improved. REVIEW OF SYSTEMS: The following is a completed review of systems and has been reviewed. Review of systems otherwise unremarkable. PAIN: Patient self reports chronic pain in bilateral legs burning in nature EYES: No recent vision changes EARS, NOSE, & THROAT: No throat pain, or dysphagia, or rhinorrhea CARDIOVASCULAR: denies chest pain PULMONARY: Denies shortness of breath GASTROINTESTINAL: Denies constipation/diarrhea GENITOURINARY: +neurogenic bladder with urostomy MUSCULOSKELETAL: generalized weakness, torticollis NEUROLOGICAL:+ MS HEMATOLOGICAL: negative SKIN: urostomy site with rash (patient had this before admission) PSYCHIATRIC: Unremarkable All other review of systems found to be negative. PHYSICAL EXAMINATION: VITAL SIGNS: Please see below. GENERAL: Pleasant and cooperative. No acute distress. Slow speech HEENT: PERRL. +horizontal nystagmus, Clear conjunctiva, + glasses CARDIOVASCULAR: Regular rate and rhythm. No murmurs, rubs, or gallops LUNGS: Clear to auscultation bilaterally. no wheeze No rhonchi ABDOMEN: Soft, nontender, nondistended. Positive bowel sounds. Normal active bowel sounds +urostomy (draining clear urine) NEUROLOGICAL: Alert and oriented times three. Cranial nerves intact except for CN V decreased sensation to pinprick, sensation to light touch intact throughout all 4 limbs, pin prick diminished throughout all 4 limbs +bilat clonus x 2 beats +torticollis (improving) EXTREMITIES: 4\\5 strength bilateral upper extremities.4\\5 strength right lower extremity. 4/5 strength in left lower extremity. right ankle - mild TTP medal malleoli, no varus/valgus laxity or pain, negative anterior drawer test, no swelling or warmth SKIN: urostomy site c/d/i, area of erythema under lower aspect of adhesive (improving) ASSESSMENT:53-year-old F with past medical history of MS with seizures who pres ents status post MS exacerbation in setting of UTI. PLAN: 1. Rehab: PT- work on ambulating short distances Mod-I, stretch/stren gthen/preserve ROM of LE- patient able to walk further contact guard, per therapy at baseline OT- improve trunk control, fine motor strength for optimal ADL management, shoulder stabilization exercises, stretch/strengthen/preserve ROM of UE 2. Neuro: progressive-relapsing MS s/p exacerbation in setting of UTI, s/p Solumedrol dosing for flare- c/u Amantadine -seizures, c/u Dilantin, lowered dose to 430mg qHS-repeat dilantin levels within normal range -c/u Keppra -migraine prevention- tapered off Depakote as likely causing elevated ammonia levels and fluctuating encephalopathy with slight improvement in ammonia -torticollis- c/u baclofen and stretching 3. Cardiac: pmh HTN c/u metoprolol, medicine consulted to assist in management - chest pain 07/06/19 resolved 4. Resp: encourage incentive spirometry- c/u Duonebs 5. Endo: hypothyroidism, c/u Synthroid 6.Hypokalemia- s/p IV supplementation, c/u on 20meq oral and adjust prn, monitor Mg levels-stable 7. ID: chronic UTIs in setting of urostomy, s/p 7 day course of IV Meropenem, ID consulted, no further intervention at this time -CT 07/04/19- Punctate nonobstructive lower pole left renal calculus. No hydronephrosis or ureter stone and no apparent complication involving the right lower quadrant ileostomy." 8. Metabolic encephalopathy due to elevated ammonia levels - suspect non hepatic cause of hyperammonia levels as recent CT abdomen does not show cirrhosis, most likely etiology is Depakote which was recently discontinued - c/u Rifaximin x 10 days total and lactulose with bisacodyl suppositories to bring down ammonia levels which is gradually working -other possible source of ammonia levels is from urostomy, however confirmed with her urologist in [place] that he did not do a ureterosigmoidostomy, but instead utilized an ileal conduit which is not known to have this side effect- Op report request sent 07/12/19, will set up with urology at [facility] -Of note, patient had 2 bladder surgeries with the last one 07/12/17 resulting in an ileal conduit with cystectomy- will need CT urogram to further investigate diversion anatomy, will hold off at this time as 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 pylori infection, however patient would need to be off PPIs for accurate breath testing 8. Pain: c/u Lyrica, Duloxetine, Meloxicam- avoid anything with Acetaminophen as she has an allergy -morphine 2mg q6h prn ordered - right ankle pain likely due to fibromyalgia, possibly a ligamental sprain, c/u acewrap in therapy for weight bearing 9. Psych: Trazodone for insomnia, Clonazepam for anxiety - halved dose of Abilify as can cause drowsiness-stable 11. DVT ppx: heparin and TEDs, Dopplers negative for DVT 12. Skin: urostomy site adjusted, applied skin prep followed by nystatin powder and telfa dressing over area of what looks like contact dermatitis vs fungal rash- improving 12. Dispo: TBD Allergies Coded Allergies: Cephalosporins (Verified Allergy, Mild, rash, 04/27/19) Sulfa (Sulfonamide Antibiotics) (Verified Allergy, Mild, itchy, 04/27/19) oxycodone (Verified Allergy, Mild, itchy, 04/27/19) hydrocodone (Verified Adverse Reaction, Intermediate, chest pain, 04/27/19) acetaminophen (Verified Adverse Reaction, Mild, NAUSEA, 04/27/19) Vital Signs Vital Signs Date Time Temp Pulse Resp B/P (MAP) Pulse Ox O2 Delivery O2 Flow Rate FiO2 07/17/19 14:00 96.9 98 18 100/65 (77) 94 Laboratory Data Labs 24H Laboratory Tests 2 07/17/19 06:49: Ammonia 44H Microbiology Microbiology 07/14/19 Stool Occult Blood (VANDANA) - Final, Complete Current Medications Current Medications Current Medications Medications (Trade) Dose Ordered Sig/Felix Route PRN Reason Start Time Stop Time Status Last Admin Dose Admin Acyclovir (Zovirax) 400 mg BID PO 06/29/19 21:00 07/17/19 08:24 Al Hydrox/Mg Hydrox/Simethicone (Mylanta) 30 ml STAT STAT PO 07/05/19 12:33 07/05/19 12:41 DC 07/05/19 12:42 Albuterol Sulfate (Proventil Neb) 2.5 mg Q2HP PRN NEB SOB/WHEEZING 07/05/19 14:30 07/14/19 15:22 Albuterol Sulfate (Proventil Neb) 2.5 mg Q6HP PRN NEB SOB/WHEEZING 06/29/19 19:30 07/05/19 14:18 DC Albuterol/ Ipratropium (Duoneb (Ipr 0.5mg/Alb 2.5mg)) 3 ml RQ6H NEB 07/05/19 14:00 07/17/19 16:25 Albuterol/ Ipratropium (Duoneb (Ipr 0.5mg/Alb 2.5mg)) 3 ml STAT STAT NEB 07/05/19 13:36 07/05/19 13:47 DC 07/05/19 14:18 Amantadine HCl (Symmetrel) 100 mg BID PO 06/29/19 21:00 07/17/19 08:30 Aripiprazole (AbiLIFY) 1 mg DAILY PO 07/12/19 09:00 07/17/19 08:23 Aripiprazole (AbiLIFY) 2 mg DAILY PO 06/30/19 09:00 07/11/19 16:22 DC 07/11/19 10:02 Aspirin (Aspirin Chewable) 81 mg DAILY PO 06/30/19 09:00 07/17/19 08:22 Atorvastatin Calcium (Lipitor) 40 mg DAILY PO 06/30/19 09:00 07/17/19 08:22 Baclofen (Lioresal) 10 mg TID PO 06/29/19 21:00 07/17/19 15:13 Bisacodyl (Dulcolax Suppository) 10 mg DAILYPRN PRN NC CONSTIPATION 06/29/19 19:15 Clonazepam (KlonoPIN) 1 mg BID PO 06/29/19 21:00 07/17/19 08:21 Dextrose (Dextrose 50%) 25 ml ASDIRECTED PRN IV SEE LABEL COMMENTS 07/06/19 12:45 Divalproex Sodium (Depakote Er) 500 mg BID PO 06/29/19 21:00 07/02/19 17:52 DC 07/02/19 11:40 Divalproex Sodium (Depakote Er) 500 mg BID PO 07/03/19 21:00 07/08/19 11:00 DC 07/08/19 09:42 Divalproex Sodium (Depakote Er) 500 mg DAILY PO 07/09/19 09:00 07/12/19 10:10 DC 07/12/19 08:17 Divalproex Sodium (Depakote Er) 500 mg TID PO 07/02/19 21:00 07/03/19 12:48 DC 07/03/19 08:52 Docusate Sodium (Colace) 100 mg BID PO 06/29/19 21:00 07/17/19 08:23 Duloxetine HCl (Cymbalta) 60 mg BID PO 06/29/19 21:00 07/17/19 08:21 Glucagon (Glucagon) 1 mg ASDIRECTED PRN SC SEE LABEL COMMENTS 07/06/19 12:45 Glucose (Glucose) 16 GM ASDIRECTED PRN PO SEE LABEL COMMENTS 07/06/19 12:45 Heparin Sodium (Heparin (Flush)) 500 units ASDIRECTED PRN IV SEE LABEL COMMENTS 06/29/19 19:30 07/05/19 12:55 DC 07/05/19 04:41 Heparin Sodium (Heparin (Flush)) 500 units DAILY IV 06/30/19 09:00 07/05/19 12:55 DC 07/04/19 09:33 Heparin Sodium (Heparin (Flush)) 500 units Q30D@0600 IV 07/06/19 06:00 07/06/19 06:07 Heparin Sodium (Porcine) (Heparin) 5,000 units Q12H SQ 06/30/19 09:00 07/17/19 08:21 Home Med (Med Rec Complete!) ASDIRECTED XX 06/29/19 18:45 06/29/19 18:45 DC Hydroxyzine HCl (Atarax) 50 mg BID PO 06/29/19 21:00 07/17/19 08:21 Lactulose (Cephulac) 15 ml BID PO 07/05/19 17:15 07/07/19 12:22 DC 07/06/19 20:41 Lactulose (Cephulac) 30 ml DAILYPRN PRN PO NO BOWEL MOVEMENT 07/01/19 16:00 07/09/19 08:49 DC 07/07/19 08:44 Lactulose (Cephulac) 30 ml Q1H PO 07/12/19 17:00 07/12/19 20:01 DC 07/12/19 20:23 Lactulose (Cephulac) 30 ml Q1H PO 07/13/19 16:00 07/13/19 19:01 DC 07/13/19 19:00 Lactulose (Cephulac) 30 ml Q1H PO 07/14/19 10:00 07/14/19 15:50 DC 07/14/19 13:11 Lactulose (Cephulac) 30 ml Q1H PO 07/15/19 10:00 07/15/19 13:01 DC 07/15/19 18:01 Lactulose (Cephulac) 30 ml Q1H PO 07/17/19 14:00 07/17/19 17:01 DC 07/17/19 16:16 Lactulose (Cephulac) 30 ml TID PO 07/07/19 12:30 07/12/19 16:01 DC 07/12/19 08:18 Levetiracetam (Keppra) 500 mg BID PO 06/29/19 21:00 07/17/19 08:21 Levothyroxine Sodium (Synthroid) 50 mcg DAILY@06 PO 06/30/19 06:00 07/17/19 06:02 Magnesium Sulfate/ Dextrose 1 gm/IV Miscellaneous Supplies 100 ml @ 100 mls/hr Q1H IV 06/29/19 21:00 06/29/19 22:59 DC 06/29/19 22:25 Meloxicam (Mobic) 15 mg DAILY PO 06/30/19 09:00 07/17/19 08:23 Menthol/Methyl Salicylate (Bengay Cream) bilateral calves BID TOP 07/01/19 09:00 07/17/19 08:24 Meropenem 1 gm/IV Miscellaneous Supplies 50 ml @ 100 mls/hr Q8H IV 06/29/19 20:00 07/05/19 10:37 DC 07/05/19 04:06 Metoprolol Succinate (TopROL XL) 25 mg DAILY PO 06/30/19 09:00 07/16/19 10:06 Miscellaneous (Unresolved Clarification Entry) SEE LABEL COMMENTS DAILY XX 07/16/19 09:00 07/16/19 13:56 DC Morphine Sulfate (Morphine Sulfate Oral Solution) 2 mg Q6H PRN PO SEVERE PAIN (PS 8-10) 07/13/19 12:15 07/16/19 15:42 Morphine Sulfate (Morphine Sulfate Oral Solution) 2 mg Q8HP PRN PO SEVERE PAIN (PS 8-10) 07/09/19 10:30 07/13/19 12:14 DC 07/12/19 16:17 Nystatin (Mycostatin Powder, Nystop) 1 dose ASDIRECTED TOP 07/13/19 16:00 07/13/19 17:01 DC Nystatin (Mycostatin Powder, Nystop) under breasts BID TOP 06/30/19 09:00 07/17/19 08:25 Omeprazole (PriLOSEC) 40 mg BID PO 06/29/19 21:00 07/17/19 08:22 Phenytoin (Dilantin) 30 mg QHS PO 07/05/19 21:00 07/16/19 22:05 Phenytoin (Dilantin) 400 mg QHS PO 07/05/19 21:00 07/16/19 22:05 Phenytoin (Dilantin) 500 mg QHS PO 06/29/19 21:00 06/29/19 21:00 DC Phenytoin (Dilantin) 500 mg QHS PO 06/29/19 21:00 07/05/19 11:08 DC 07/04/19 21:05 Potassium Chloride (Micro-K Extencaps) 10 meq DAILY PO 06/30/19 09:00 06/30/19 11:33 DC 06/30/19 08:28 Potassium Chloride (Micro-K Extencaps) 20 meq DAILY PO 07/01/19 09:00 07/17/19 08:22 Pregabalin (Lyrica) 300 mg BID PO 06/29/19 21:00 07/17/19 08:22 Promethazine HCl (Phenergan) 25 mg Q4HP PRN PO NAUSEA OR VOMITING 06/29/19 19:30 07/09/19 15:30 Rifaximin (Xifaxan) 400 mg TID PO 07/10/19 09:00 07/19/19 21:01 07/17/19 15:13 Senna (Senokot) 1 tab QHS PO 06/29/19 21:00 06/29/19 21:00 DC Senna (Senokot) 2 tab QHS PO 06/29/19 21:00 07/16/19 22:06 Sodium Chloride (Saline Lock Flush) 10 ml ASDIRECTED PRN IV SEE LABEL COMMENTS 06/29/19 19:30 07/05/19 12:55 DC 07/05/19 04:40 Sodium Chloride (Saline Lock Flush) 10 ml DAILY IV 06/30/19 09:00 07/05/19 12:55 DC 07/04/19 09:33 Sodium Chloride (Saline Lock Flush) 10 ml Q30D@0600 IV 07/06/19 06:00 07/06/19 06:07 Tramadol/ Acetaminophen (Ultracet 37.5/ 325 Mg) 1 tab Q6HP PRN PO PAIN 07/01/19 03:15 07/05/19 12:52 DC 07/05/19 09:58 Trazodone HCl (Desyrel) 150 mg QHS PO 06/29/19 21:00 07/16/19 22:06 MARYBETH KERN MD Jul 17, 2019 17:06
[2019-07-17] MEDS ORDERED: BISACODYL 10 MG SUPP PR ONE (18:00)
[2019-07-17 19:53] VITALS: BP 132/80
[2019-07-17] MEDS: PHENYTOIN ER 30 MG CAP PO SCH (20:10)
[2019-07-17] MEDS: PHENYTOIN ER 100 MG CAP PO SCH (20:10)
[2019-07-17] MEDS: traZODone 50 MG TAB PO SCH (20:11)
[2019-07-17] MEDS: SENNA 8.6 MG TAB (SENOKOT) PO SCH (20:11)
--- NOTE | 2019-07-17 22:39 | IPN ---
DATE: 07/17/2019 She is a 53-year-old female on the rehab unit for multiple sclerosis (MS) exacerbation, which has shown improvement. She is afebrile. She has no complaint of headache today, is feeling well. She has been taking Kayexalate for increased ammonia levels, and they are decreasing. Her Depakote has been weaned down. Ammonia level today is down to 44. Plan is to continue treatment until the level is normal. Family understands this. She is afebrile. Pulse is good. Patient is sitting up in a chair and doing well. OBJECTIVE: Vital signs are stable. Patient is alert and oriented times three. Pupils equal and reactive to light. Pharynx: Tongue and gums pink and moist. Tongue is midline. Neck supple without lymphadenopathy. Chest is clear to auscultation. Heart is regular. Abdomen: Benign. Urostomy patent. Urine clear. Extremities: No cyanosis, clubbing or edema. Skin: Warm and dry. IMPRESSION: Multiple sclerosis, relapsing type with acute exacerbation, improved. Elevated ammonia, improved at 44. Continue with Kayexalate. Depakote has been decreased and hypoglycemia resolved. Urinary tract infection (UTI) resolved. Seizure disorder, stable. Continues on Keppra and Dilantin. Migraine headaches, none currently. Hypothyroidism, continues on Synthroid. Deep vein thrombosis (DVT) prophylaxis with heparin.
[2019-07-17] MEDS: PROMETHAZINE 25 MG TAB PO PRN (23:20)
[2019-07-17] MEDS: MORPHINE SULFATE ORAL SOLN 10 MG/5 ML UD PO PRN (23:22)
[2019-07-18 00:27] VITALS: BP 140/82
[2019-07-18] MEDS ORDERED: MORPHINE SULFATE ORAL SOLN 10 MG/5 ML UD PO ONE (01:00)
[2019-07-18] MEDS: IPRATROPIUM 0.5MG/ALBUTEROL 2.5MG INH SOL UD 3ML (DUONEB)(J7620) NEB SCH ×3 (02:00→13:26)
[2019-07-18] MEDS: PROMETHAZINE 25 MG TAB PO PRN (04:08)
[2019-07-18] MEDS: LEVOTHYROXINE 50MCG TABLET (0.05MG) PO SCH (05:39)
[2019-07-18 05:42] VITALS: BP 118/75
[2019-07-18 06:30] LABS: BASO % 0.4 % (0.0-1.0); EOS # 0.3 10^3/uL (0.0-0.50); EOS % 5.6 % (0.0-3.0); LYMPH # 0.6 10^3/uL (1.5-4.5); LYMPH % 11.9 % (24.0-44.0); MEAN CORPUSCULAR HEMOGLOBIN 24.8 pg (27.0-33.0); MEAN CORPUSCULAR VOLUME 77.4 fl (80.0-96.0); MONO # 0.7 10^3/uL (0.0-0.8); MONO % 13.6 % (0.0-5.0); NEUTROPHILS # 3.4 10^3/uL (1.8-7.7); NEUTROPHILS % 66.6 % (36.0-66.0); PLATELET COUNT, AUTOMATED 200 10^3/uL (150-450); RED BLOOD COUNT 3.23 10^6/uL (4.00-5.40); WHITE BLOOD COUNT 5.1 10^3/uL (4.0-10.0)
[2019-07-18 06:53] LABS: CALCIUM LEVEL 8.5 MG/DL (8.5-10.1); CREATININE FOR GFR 1.19 MG/DL (0.55-1.30); GLOMERULAR FILTRATION RATE 50.9 (>51); POTASSIUM SERUM 3.9 MEQ/L (3.5-5.1)
[2019-07-18] MEDS: MORPHINE SULFATE ORAL SOLN 10 MG/5 ML UD PO PRN (06:55)
[2019-07-18] MEDS: ACYCLOVIR 200 MG CAPSULE PO SCH (07:58)
[2019-07-18] MEDS: clonazePAM 1 MG TAB PO SCH (07:58)
[2019-07-18] MEDS: PREGABALIN 100 MG CAP (LYRICA) PO SCH (07:59)
[2019-07-18] MEDS: ASPIRIN 81 MG CHEW TABLET PO SCH (08:00)
[2019-07-18] MEDS: ARIPiprazole 2 MG TAB PO SCH (08:00)
[2019-07-18] MEDS: DULoxetine 30 MG CAP (CYMBALTA) PO SCH (08:00)
[2019-07-18] MEDS: POTASSIUM CHLORIDE 10 MEQ SR TABLET PO SCH (08:00)
[2019-07-18] MEDS: MELOXICAM (MOBIC) 7.5 MG TAB PO SCH (08:00)
[2019-07-18] MEDS: hydrOXYzine 50 MG TAB PO SCH (08:00)
[2019-07-18] MEDS: ATORVASTATIN 20 MG TAB PO SCH (08:00)
[2019-07-18] MEDS: OMEPRAZOLE 20 MG CAP PO SCH (08:00)
[2019-07-18] MEDS: DOCUSATE SODIUM 100 MG CAP PO SCH (08:00)
[2019-07-18 08:01] VITALS: BP 118/75
[2019-07-18] MEDS: BACLOFEN 10 MG TAB PO SCH (08:01)
[2019-07-18] MEDS: levETIRAcetam 250MG TABLET (KEPPRA) PO SCH (08:01)
[2019-07-18] MEDS: METOPROLOL SUCC *XL* 25MG TAB (TopROL *XL*) PO SCH (08:01)
[2019-07-18] MEDS: AMANTADINE 100 MG CAP PO SCH (08:01)
[2019-07-18] MEDS: ANALGESIC BALM CRM 120 GM TOP SCH (08:02)
[2019-07-18] MEDS: HEPARIN SOD (PORCINE) 5000 UNITS/ML VIAL SQ SCH (08:02)
[2019-07-18] MEDS: NYSTATIN 100,000 UNITS/GM TOPICAL PWD 15 GM TOP SCH (08:02)
[2019-07-18] MEDS ORDERED: SIMETHICONE 80 MG CHEW TAB PO SCH ×2 (09:00)
[2019-07-18] MEDS ORDERED: ATOR1TAB21 PO (11:20)
[2019-07-18] MEDS ORDERED: CLON1TAB8 PO (11:20)
[2019-07-18] MEDS ORDERED: ACYC200C8 PO (11:20)
[2019-07-18] MEDS ORDERED: ABIL1TAB13 PO (11:20)
[2019-07-18] MEDS ORDERED: CYMB1CAP5 PO (11:20)
[2019-07-18] MEDS ORDERED: BISA10SU PR (11:20)
[2019-07-18] MEDS ORDERED: BACL10TA2 PO (11:20)
[2019-07-18] MEDS ORDERED: ALB2.5NEB NEB (11:20)
[2019-07-18] MEDS ORDERED: COLA100C5 PO (11:20)
[2019-07-18] MEDS ORDERED: ASPI81CH8 PO (11:20)
[2019-07-18] MEDS ORDERED: AMANTADINE HCL PO (11:20)
[2019-07-18] MEDS ORDERED: MORP1SOL3 PO (11:21)
[2019-07-18] MEDS ORDERED: PHEN30CA PO (11:21)
[2019-07-18] MEDS ORDERED: XIFA200T2 PO (11:21)
[2019-07-18] MEDS ORDERED: SENN18TA PO (11:21)
[2019-07-18] MEDS ORDERED: METO1TAB32 PO (11:21)
[2019-07-18] MEDS ORDERED: KEPP250T5 PO (11:21)
[2019-07-18] MEDS ORDERED: LEVO50TA5 PO (11:21)
[2019-07-18] MEDS ORDERED: PREG100CA PO (11:21)
[2019-07-18] MEDS ORDERED: HEPA500011 SQ (11:21)
[2019-07-18] MEDS ORDERED: MELO7.5T35 PO (11:21)
[2019-07-18] MEDS ORDERED: TRAZ-252 PO (11:21)
[2019-07-18] MEDS ORDERED: HYDR50TA70 PO (11:21)
[2019-07-18] MEDS ORDERED: IPRA0.00 NEB (11:21)
[2019-07-18] MEDS ORDERED: NYAM10003 TOP (11:21)
[2019-07-18] MEDS ORDERED: SIME80TA PO (11:21)
[2019-07-18] MEDS ORDERED: DILA100C PO (11:21)
[2019-07-18] MEDS ORDERED: OMEP-218 PO (11:21)
[2019-07-18] MEDS ORDERED: KLOR10TA76 PO (11:21)
--- NOTE | 2019-07-18 11:59 | HPE ---
DATE OF ADMISSION: 07/18/2019 ATTENDING PHYSICIAN: Dr. Alatorre PRIMARY CARE PROVIDER: Dr. Sujit Momin CHIEF COMPLAINT: Altered mental status, elevated ammonia levels. HISTORY: Elise Yang has been in Acute Rehabilitation Unit for the last almost 3 weeks after prolonged medical hospitalization. She has a history of relapsing multiple sclerosis, chronic pain problems, anxiety, depression, morbid obesity, hypothyroidism, neurogenic bladder status post uroscopy, probably diverting ileostomy. She was admitted with altered mental status secondary to urinary tract infection (UTI). She was found to have elevated ammonia levels. She does not have cirrhosis, suspect that it was related to her Depakote, which has been discontinued. Ammonia levels remain elevated. Mental status has not improved and the patient is being transferred back to acute care. PAST MEDICAL HISTORY: 1. Relapsing multiple sclerosis. 2. Seizure disorder. 3. Neurogenic bladder. 4. Hypertension. 5. Chronic torticollis. 6. Pseudobulbar affect. 7. Hyponatremia secondary to anticonvulsants. 8. Multiple dermatomal herpes zoster from immunosuppression. 9. Microcytic anemia. 10. B12 deficiency. 11. Migraine headaches. 12. Obesity. 13. Vitamin D deficiency. PAST SURGICAL HISTORY: 1. Breast reduction. 2. Bilateral wrist surgery. 3. Bladder surgery. 4. Hysterectomy. 5. Tubal ligation. 6. Port placement. 7. Left ulnar implant. 8. Surgery for basal cancer. SOCIAL HISTORY: She is . Her Joey is very attentive and provides most of her care at home. MEDICATIONS: List was reviewed. PHYSICAL EXAMINATION: She is alert and conversant. Blood pressure 118/75, pulse 90, respiratory rate 18. GENERAL APPEARANCE: Lying in bed. Speech is dysarthric, which it was when I saw her on acute care several weeks ago. She is wearing dark glasses inside. NECK: Supple. LUNGS: Clear. HEART: Regular rhythm. ABDOMEN: Soft, distended. Bowel sounds are present. EXTREMITIES: Trace peripheral edema. She does have some asterixis present, slight, better than the last time that I examined her. LABORATORIES: White count 5.1, hemoglobin 8, platelets 200, sodium 143, potassium 3.9, BUN 12, creatinine 1.1, glucose 102. Last Dilantin level was 20.3. Ammonia level today was 51, recent peak has been 86. IMPRESSION: 1. Elevated ammonia, probably from her anticonvulsant, Keppra has also been associated with elevated ammonia levels. She was recently taken off her Depakote. If ammonia levels remain elevated, would consider consulting neurology to find a replacement for the Keppra. Her Dilantin level has been high, which can also cause some dysarthria and altered mental status and we are ordering a repeat Dilantin level for the morning. She is on Rifaximin, Lactulose. The case was discussed with Dr. Alatorre, who will be assuming her hospitalist care. 2. Multiple sclerosis. Physical therapy (PT) ordered. Continue her antispasmodics. 3. Hypertensive heart disease. Continue current dose of metoprolol. 4. Hyperlipidemia. Continue atorvastatin 40 mg daily. 5. History of herpes zoster. She is on Zovirax 400 mg twice a day, which we will continue. 6. Hypothyroidism. Continue levothyroxine 50 mcg daily. 7. History of depression. Continue antidepressant medications, which include trazodone and Cymbalta.
--- NOTE | 2019-07-18 12:41 | IPNPDOC ---
PM&R Progress Note DATE OF SERVICE: Jul 18, 2019 [employer] Le[employer] Agent Progress Note Subjective: Patient seen this morning with abdominal pain and distension reporting she had one bowel movement yesterday after the lactulose. She reports she is passing flatus. She also received an extra dose of 5mg morphine overnight. Patient was made NPO, a suppository was inserted and simethicone provided following which she had a bowel movement and her abdomen became softer. Patient was evaluated by the hospitalists who agreed to take over her care and provide a more comprehensive workup for her elevated ammonia levels. Patient and were told of the reasons for the transfer and patient expressed understanding and agreed that the changeover in care was needed. She reports that since starting therapy she feels less shaky and feels stronger overall. She was counseled to avoid opioids going forward as this can worsen constipation and to seek medical care closer to home once she is discharged. REVIEW OF SYSTEMS: The following is a completed review of systems and has been reviewed. Review of systems otherwise unremarkable. PAIN: Patient self reports chronic pain in bilateral legs burning in nature (improving) EYES: No recent vision changes EARS, NOSE, & THROAT: No throat pain, or dysphagia, or rhinorrhea CARDIOVASCULAR: denies chest pain PULMONARY: Denies shortness of breath GASTROINTESTINAL: Denies constipation/diarrhea GENITOURINARY: +neurogenic bladder with urostomy MUSCULOSKELETAL: generalized weakness, torticollis NEUROLOGICAL:+ MS HEMATOLOGICAL: negative SKIN: urostomy site with rash (patient had this before admission) PSYCHIATRIC: Unremarkable All other review of systems found to be negative. PHYSICAL EXAMINATION: VITAL SIGNS: Please see below. GENERAL: Pleasant and cooperative. No acute distress. Slow speech HEENT: PERRL. +horizontal nystagmus, Clear conjunctiva, + glasses CARDIOVASCULAR: Regular rate and rhythm. No murmurs, rubs, or gallops LUNGS: Clear to auscultation bilaterally. no wheeze No rhonchi ABDOMEN: Soft, nontender, mildly distended, no guarding or rebound tenderness Positive bowel sounds. +urostomy (draining clear urine) NEUROLOGICAL: Alert and oriented times three. Cranial nerves intact except for CN V decreased sensation to pinprick, sensation to light touch intact throughout all 4 limbs, pin prick diminished throughout all 4 limbs +bilat clonus x 2 beats +torticollis (improving) EXTREMITIES: 4\\5 strength bilateral upper extremities.4\\5 strength right lower extremity. 4/5 strength in left lower extremity. right ankle - mild TTP medal malleoli, no varus/valgus laxity or pain, negative anterior drawer test, no swelling or warmth SKIN: urostomy site c/d/i, area of erythema under lower aspect of adhesive (improving) ASSESSMENT:53-year-old F with past medical history of MS with seizures who presents status post MS exacerbation in setting of UTI. PLAN: 1. Rehab: PT- work on ambulating short distances Mod-I, stretch/strengthen/preserve ROM of LE- patient able to walk further contact guard, per therapy at baseline OT- improve trunk control, fine motor strength for optimal ADL management, shoulder stabilization exercises, stretch/strengthen/preserve ROM of UE 2. Neuro: progressive-relapsing MS s/p exacerbation in setting of UTI, s/p Solumedrol dosing for flare- c/u Amantadine -seizures, c/u Dilantin, lowered dose to 430mg qHS-repeat dilantin levels within normal range -c/u Keppra -migraine prevention- tapered off Depakote as likely causing elevated ammonia levels and fluctuating encephalopathy with slight improvement in ammonia -torticollis- c/u baclofen and stretching 3. Cardiac: pmh HTN c/u metoprolol, medicine consulted to assist in management - chest pain 07/06/19 resolved 4. Resp: encourage incentive spirometry- c/u Duonebs 5. Endo: hypothyroidism, c/u Synthroid 6.Hypokalemia- s/p IV supplementation, c/u on 20meq oral and adjust prn, monitor Mg levels-stable 7. ID: chronic UTIs in setting of urostomy, s/p 7 day course of IV Meropenem, ID consulted, no further intervention at this time -CT 07/04/19- Punctate nonobstructive lower pole left renal calculus. No hydronephrosis or ureter stone and no apparent complication involving the right lower quadrant ileostomy." 8. Metabolic encephalopathy due to elevated ammonia levels - suspect non-hepatic cause of hyperammonia levels as recent CT abdomen does not show cirrhosis, most likely etiology is Depakote which was recently discontinued - c/u Rifaximin x 10 days total and lactulose with bisacodyl suppositories to bring down ammonia levels which is gradually working -other possible source of ammonia levels is from urostomy, however confirmed with her urologist in [place] that he did not do a ureterosigmoidostomy, but instead utilized an ileal conduit which is not known to have this side effect- Op report request sent 07/12/19, will set up with urology at [facility] -Of note, patient had 2 bladder surgeries with the last one 07/12/17 resulting in an ileal conduit with cystectomy- will need CT urogram to further investigate diversion anatomy and to rule out possible fistula, will hold off at this time as 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 pylori infection, however patient would need to be off PPIs for accurate breath testing 8. Pain: c/u Lyrica, Duloxetine, Meloxicam- avoid anything with Acetaminophen as she has an allergy -morphine 2mg q6h prn ordered - right ankle pain likely due to fibromyalgia, possibly a ligamental sprain, c/u acewrap in therapy for weight bearing 9. Psych: Trazodone for insomnia, Clonazepam for anxiety - halved dose of Abilify as can cause drowsiness-stable 11. DVT ppx: heparin and TEDs, Dopplers negative for DVT 12. Skin: urostomy site adjusted, applied skin prep followed by nystatin powder and telfa dressing over area of what looks like contact dermatitis vs fungal rash- improving 12. Dispo: Patient to be transferred to PCU for further work-up for her elevated ammonia levels. She is functionally at her baseline, is medically stable at this time, but has plateaued in therapy. Hospitalists aware and have kindly agreed to take over management. Allergies Coded Allergies: Cephalosporins (Verified Allergy, Mild, rash, 04/27/19) Sulfa (Sulfonamide Antibiotics) (Verified Allergy, Mild, itchy, 04/27/19) oxycodone (Verified Allergy, Mild, itchy, 04/27/19) hydrocodone (Verified Adverse Reaction, Intermediate, chest pain, 04/27/19) acetaminophen (Verified Adverse Reaction, Mild, NAUSEA, 04/27/19) Vital Signs Vital Signs Date Time Temp Pulse Resp B/P (MAP) Pulse Ox O2 Delivery O2 Flow Rate FiO2 07/18/19 08:01 90 118/75 07/18/19 07:57 18 07/18/19 05:42 97.1 95 Laboratory Data CBC/BMP Laboratory Tests 07/18/19 06:11 Red Blood Count 3.23 L, Mean Corpuscular Volume 77.4 L, Mean Corpuscular Hemoglobin 24.8 L, Mean Corpuscular Hemoglobin Concent 32.0, Red Cell Distribu tion Width 16.5 H, Neutrophils (%) (Auto) 66.6 H, Lymphocytes (%) (Auto) 11.9 L, Monocytes (%) (Auto) 13.6 H, Eosinophils (%) (Auto) 5.6 H, Basophils (%) (Auto) 0.4, Neutrophils # (Auto) 3.4, Lymphocytes # (Auto) 0.6 L, Monocytes # (Auto) 0.7, Eosinophils # (Auto) 0.3, Basophils # (Auto) 0.0, Calcium Level 8.5 Labs 24H Laboratory Tests 2 07/18/19 06:11: Immature Granulocyte % (Auto) 1.9, White Blood Count 5.1, Red Blood Count 3.23L, Hemoglobin 8.0L, Hematocrit 25.0L, Mean Corpuscular Volume 77.4L, Mean Corpuscular Hemoglobin 24.8L, Mean Corpuscular Hemoglobin Concent 32.0, Red Cell Distribution Width 16.5H, Platelet Count 200, Neutrophils (%) (Auto) 66.6H, Lymphocytes (%) (Auto) 11.9L, Monocytes (%) (Auto) 13.6H, Eosinophils (%) (Auto) 5.6H, Basophils (%) (Auto) 0.4, Neutrophils # (Auto) 3.4, Lymphocytes # (Auto) 0.6L, Monocytes # (Auto) 0.7, Eosinophils # (Auto) 0.3, Basophils # (Auto) 0.0, Nucleated Red Blood Cells % (auto) 0.0, Anion Gap 7L, Glomerular Filtration Rate 50.9L, Blood Urea Nitrogen 12, Creatinine 1.19, Sodium Level 143, Potassium Level 3.9, Chloride Level 113H, Carbon Dioxide Level 23, Calcium Level 8.5, Ammonia 51H Microbiology Microbiology 07/14/19 Stool Occult Blood (VANDANA) - Final, Complete Current Medications Current Medications Current Medications Medications (Trade) Dose Ordered Sig/Fleix Route PRN Reason Start Time Stop Time Status Last Admin Dose Admin Acyclovir (Zovirax) 400 mg BID PO 06/29/19 21:00 07/18/19 07:58 Al Hydrox/Mg Hydrox/Simethicone (Mylanta) 30 ml STAT STAT PO 07/05/19 12:33 07/05/19 12:41 DC 07/05/19 12:42 Albuterol Sulfate (Proventil Neb) 2.5 mg Q2HP PRN NEB SOB/WHEEZING 07/05/19 14:30 07/14/19 15:22 Albuterol Sulfate (Proventil Neb) 2.5 mg Q6HP PRN NEB SOB/WHEEZING 06/29/19 19:30 07/05/19 14:18 DC Albuterol/ Ipratropium (Duoneb (Ipr 0.5mg/Alb 2.5mg)) 3 ml RQ6H NEB 07/05/19 14:00 07/18/19 07:08 Albuterol/ Ipratropium (Duoneb (Ipr 0.5mg/Alb 2.5mg)) 3 ml STAT STAT NEB 07/05/19 13:36 07/05/19 13:47 DC 07/05/19 14:18 Amantadine HCl (Symmetrel) 100 mg BID PO 06/29/19 21:00 07/18/19 08:01 Aripiprazole (AbiLIFY) 1 mg DAILY PO 07/12/19 09:00 07/18/19 08:00 Aripiprazole (AbiLIFY) 2 mg DAILY PO 06/30/19 09:00 07/11/19 16:22 DC 07/11/19 10:02 Aspirin (Aspirin Chewable) 81 mg DAILY PO 06/30/19 09:00 07/18/19 08:00 Atorvastatin Calcium (Lipitor) 40 mg DAILY PO 06/30/19 09:00 07/18/19 08:00 Baclofen (Lioresal) 10 mg TID PO 06/29/19 21:00 07/18/19 08:01 Bisacodyl (Dulcolax Suppository) 10 mg DAILYPRN PRN [place] CONSTIPATION 06/29/19 19:15 07/18/19 09:56 Clonazepam (KlonoPIN) 1 mg BID PO 06/29/19 21:00 07/18/19 07:58 Dextrose (Dextrose 50%) 25 ml ASDIRECTED PRN IV SEE LABEL COMMENTS 07/06/19 12:45 Divalproex Sodium (Depakote Er) 500 mg BID PO 06/29/19 21:00 07/02/19 17:52 DC 07/02/19 11:40 Divalproex Sodium (Depakote Er) 500 mg BID PO 07/03/19 21:00 07/08/19 11:00 DC 07/08/19 09:42 Divalproex Sodium (Depakote Er) 500 mg DAILY PO 07/09/19 09:00 07/12/19 10:10 DC 07/12/19 08:17 Divalproex Sodium (Depakote Er) 500 mg TID PO 07/02/19 21:00 07/03/19 12:48 DC 07/03/19 08:52 Docusate Sodium (Colace) 100 mg BID PO 06/29/19 21:00 07/18/19 08:00 Duloxetine HCl (Cymbalta) 60 mg BID PO 06/29/19 21:00 07/18/19 08:00 Glucagon (Glucagon) 1 mg ASDIRECTED PRN SC SEE LABEL COMMENTS 07/06/19 12:45 Glucose (Glucose) 16 GM ASDIRECTED PRN PO SEE LABEL COMMENTS 07/06/19 12:45 Heparin Sodium (Heparin (Flush)) 500 units ASDIRECTED PRN IV SEE LABEL COMMENTS 06/29/19 19:30 07/05/19 12:55 DC 07/05/19 04:41 Heparin Sodium (Heparin (Flush)) 500 units DAILY IV 06/30/19 09:00 07/05/19 12:55 DC 07/04/19 09:33 Heparin Sodium (Heparin (Flush)) 500 units Q30D@0600 IV 07/06/19 06:00 07/06/19 06:07 Heparin Sodium (Porcine) (Heparin) 5,000 units Q12H SQ 06/30/19 09:00 07/18/19 08:02 Home Med (Med Rec Complete!) ASDIRECTED XX 06/29/19 18:45 06/29/19 18:45 DC Hydroxyzine HCl (Atarax) 50 mg BID PO 06/29/19 21:00 07/18/19 08:00 Lactulose (Cephulac) 15 ml BID PO 07/05/19 17:15 07/07/19 12:22 DC 07/06/19 20:41 Lactulose (Cephulac) 30 ml DAILYPRN PRN PO NO BOWEL MOVEMENT 07/01/19 16:00 07/09/19 08:49 DC 07/07/19 08:44 Lactulose (Cephulac) 30 ml Q1H PO 07/12/19 17:00 07/12/19 20:01 DC 07/12/19 20:23 Lactulose (Cephulac) 30 ml Q1H PO 07/13/19 16:00 07/13/19 19:01 DC 07/13/19 19:00 Lactulose (Cephulac) 30 ml Q1H PO 07/14/19 10:00 07/14/19 15:50 DC 07/14/19 13:11 Lactulose (Cephulac) 30 ml Q1H PO 07/15/19 10:00 07/15/19 13:01 DC 07/15/19 18:01 Lactulose (Cephulac) 30 ml Q1H PO 07/17/19 14:00 07/17/19 17:01 DC 07/17/19 17:15 Lactulose (Cephulac) 30 ml TID PO 07/07/19 12:30 07/12/19 16:01 DC 07/12/19 08:18 Levetiracetam (Keppra) 500 mg BID PO 06/29/19 21:00 07/18/19 08:01 Levothyroxine Sodium (Synthroid) 50 mcg DAILY@06 PO 06/30/19 06:00 07/18/19 05:39 Magnesium Sulfate/ Dextrose 1 gm/IV Miscellaneous Supplies 100 ml @ 100 mls/hr Q1H IV 06/29/19 21:00 06/29/19 22:59 DC 06/29/19 22:25 Meloxicam (Mobic) 15 mg DAILY PO 06/30/19 09:00 07/18/19 08:00 Menthol/Methyl Salicylate (Bengay Cream) bilateral calves BID TOP 07/01/19 09:00 07/18/19 08:02 Meropenem 1 gm/IV Miscellaneous Supplies 50 ml @ 100 mls/hr Q8H IV 06/29/19 20:00 07/05/19 10:37 DC 07/05/19 04:06 Metoprolol Succinate (TopROL XL) 25 mg DAILY PO 06/30/19 09:00 07/18/19 08:01 Miscellaneous (Unresolved Clarification Entry) SEE LABEL COMMENTS DAILY XX 07/16/19 09:00 07/16/19 13:56 DC Morphine Sulfate (Morphine Sulfate Oral Solution) 2 mg Q6H PRN PO SEVERE PAIN (PS 8-10) 07/13/19 12:15 07/18/19 06:55 Morphine Sulfate (Morphine Sulfate Oral Solution) 2 mg Q8HP PRN PO SEVERE PAIN (PS 8-10) 07/09/19 10:30 07/13/19 12:14 DC 07/12/19 16:17 Nystatin (Mycostatin Powder, Nystop) 1 dose ASDIRECTED TOP 07/13/19 16:00 07/13/19 17:01 DC Nystatin (Mycostatin Powder, Nystop) under breasts BID TOP 06/30/19 09:00 07/18/19 08:02 Omeprazole (PriLOSEC) 40 mg BID PO 06/29/19 21:00 07/18/19 08:00 Phenytoin (Dilantin) 30 mg QHS PO 07/05/19 21:00 07/17/19 20:10 Phenytoin (Dilantin) 400 mg QHS PO 07/05/19 21:00 07/17/19 20:10 Phenytoin (Dilantin) 500 mg QHS PO 06/29/19 21:00 06/29/19 21:00 DC Phenytoin (Dilantin) 500 mg QHS PO 06/29/19 21:00 07/05/19 11:08 DC 07/04/19 21:05 Potassium Chloride (Micro-K Extencaps) 10 meq DAILY PO 06/30/19 09:00 06/30/19 11:33 DC 06/30/19 08:28 Potassium Chloride (Micro-K Extencaps) 20 meq DAILY PO 07/01/19 09:00 07/18/19 08:00 Pregabalin (Lyrica) 300 mg BID PO 06/29/19 21:00 07/18/19 07:59 Promethazine HCl (Phenergan) 25 mg Q4HP PRN PO NAUSEA OR VOMITING 06/29/19 19:30 07/18/19 04:08 Rifaximin (Xifaxan) 400 mg TID PO 07/10/19 09:00 07/19/19 21:01 07/18/19 07:59 Senna (Senokot) 1 tab QHS PO 06/29/19 21:00 06/29/19 21:00 DC Senna (Senokot) 2 tab QHS PO 06/29/19 21:00 07/17/19 20:11 Simethicone (Mylicon) 80 mg TID PO 07/18/19 09:00 07/18/19 09:45 DC Simethicone (Mylicon) 80 mg TID PO 07/18/19 09:00 07/18/19 10:58 Sodium Chloride (Saline Lock Flush) 10 ml ASDIRECTED PRN IV SEE LABEL COMMENTS 06/29/19 19:30 07/05/19 12:55 DC 07/05/19 04:40 Sodium Chloride (Saline Lock Flush) 10 ml DAILY IV 06/30/19 09:00 07/05/19 12:55 DC 07/04/19 09:33 Sodium Chloride (Saline Lock Flush) 10 ml Q30D@0600 IV 07/06/19 06:00 07/06/19 06:07 Tramadol/ Acetaminophen (Ultracet 37.5/ 325 Mg) 1 tab Q6HP PRN PO PAIN 07/01/19 03:15 07/05/19 12:52 DC 07/05/19 09:58 Trazodone HCl (Desyrel) 150 mg QHS PO 06/29/19 21:00 07/17/19 20:11 MARYBETH KERN MD Jul 18, 2019 12:41
--- NOTE | 2019-07-20 16:19 | PMRDS ---
DATE OF ADMISSION: 06/29/2019 DATE OF DISCHARGE: 07/18/2019 CHIEF COMPLAINT/DISCHARGE DIAGNOSIS: Multiple sclerosis (MS) exacerbation with elevated ammonia levels. HISTORY OF PRESENT ILLNESS: A 53-year-old female with a past medical history of relapsing remitting multiple sclerosis (MS) diagnosed in 2005 with seizure disorder followed by Dr. Avila, hypertension, torticollis, paresthesias, hyponatremia, anemia, migraines, obesity, pseudobulbar affect, urostomy with chronic urinary tract infections UTIs who presented to [facility] ([facility] Emergency Department (ED) on 06/26/2019 complaining of weakness, inability to transfer safely from her wheelchair, reporting cloudy urine with slurred speech, hand weakness and altered mental status. She was found to have elevated Dilantin levels so her dosing was held until it normalized. She was started on IV Solu-Medrol for an MS exacerbation and CT cervical spine was ordered to rule out progression of her MS which showed "no evidence of active cervical core demyelination." Her hand weakness improved the following day and she was switched from oral Levaquin to IV meropenem for a urine culture that grew Pseudomonas. She had a drop in her potassium and calcium levels and was found to have low magnesium as well and given IV supplementation. She was evaluated by therapy, noted to have deficits below her prior level of function in mobility and activities of daily living (ADLs), and deemed medically appropriate for discharge to acute rehabilitation unit (ARU) on 06/29/2019. PAST MEDICAL HISTORY: As per history of present illness (HPI). HOSPITAL COURSE: The patient was admitted and enrolled in a comprehensive physical therapy (PT), occupational therapy (OT) program. She received 24-hour nursing supervision and weekly team meetings were held to discuss her progress. During her hospital stay, her multiple sclerosis (MS) was treated with amantadine and she was status post Solu-Medrol dosing without any further decline in her overall function. For seizures, she was maintained on Dilantin with a dose that was decreased from 500 at bedtime to 430 at bedtime, multiple drug levels were obtained and she was well within normal limits. She also was continued on Keppra. Her seizure medications were discussed at length with her neurologist in [place], Dr. Dave. The patient had an episode of chest pain on 07/06/2019 which resolved with DuoNebs, thought to be from an allergic reaction to Tylenol. She finished up a course of IV meropenem for her urinary tract infection and was evaluated by infectious disease who did not recommend any further treatment, reporting that she was most likely colonized. CT of the abdomen was done 07/04/2019 showing no hydronephrosis or ureter stones and no complications involving the right lower quadrant ileostomy. The patient was also noted to have elevated ammonia levels during her hospital course, thought not to be due to hepatic failure, however, more likely from her dosing of Depakote which she was on for migraines. She was tapered off of the Depakote, started on lactulose and rifaximin with modest improvements in her ammonia levels. However, they did not normalize. The patient's Abilify dosing was halved during her hospital course due to increased drowsiness and her mentation improved following this. She was deemed medically appropriate for transfer to progressive care unit (PCU) on 07/18/2019 for persistently elevated ammonia levels and at that point had plateaued in her rehabilitation course and was functionally at her baseline. DISCHARGE MEDICATIONS: As per discharge instructions. FUNCTIONAL HISTORY ON DISCHARGE: The patient was standby assist for functional transfers, able to ambulate 150 feet standby assist with a rolling walker and propel her wheelchair 500 feet at an independent level. In occupational therapy, the patient was standby assist for upper and lower body dressing, modified independent for grooming and standby assist for meal preparation. Thank you for this referral.
== END 2019-07-18 13:30 | disposition short-term general hospital (02) | DRG 58 ==
LOC: M PM&R 18:16
PROVIDERS: ADMIT Physical Medicine & Rehabilitation; ATTEND Physical Medicine & Rehabilitation
DX: G35 Multiple sclerosis (principal); G93.41 Metabolic encephalopathy; E87.1 Hypo-osmolality and hyponatremia; E72.20 Disorder of urea cycle metabolism, unspecified; Z68.41 Body mass index [BMI] 40.0-44.9, adult; G40.909 Epilepsy, unspecified, not intractable, without status epilepticus; M43.6 Torticollis; I10 Essential (primary) hypertension; D64.9 Anemia, unspecified; G43.909 Migraine, unspecified, not intractable, without status migrainosus; E66.01 Morbid (severe) obesity due to excess calories; E83.42 Hypomagnesemia; E03.9 Hypothyroidism, unspecified; F48.2 Pseudobulbar affect; E16.2 Hypoglycemia, unspecified; R53.1 Weakness; M25.571 Pain in right ankle and joints of right foot; K59.00 Constipation, unspecified; R07.9 Chest pain, unspecified; E87.6 Hypokalemia; T42.6X5A Adverse effect of other antiepileptic and sedative-hypnotic drugs, initial encounter; N31.9 Neuromuscular dysfunction of bladder, unspecified; F41.9 Anxiety disorder, unspecified; B02.9 Zoster without complications; G47.00 Insomnia, unspecified; Z79.82 Long term (current) use of aspirin; Z79.891 Long term (current) use of opiate analgesic; Z79.899 Other long term (current) drug therapy; Z88.1 Allergy status to other antibiotic agents; Z88.2 Allergy status to sulfonamides; Z88.5 Allergy status to narcotic agent; Z88.6 Allergy status to analgesic agent; Z93.6 Other artificial openings of urinary tract status; Z85.828 Personal history of other malignant neoplasm of skin; Z90.6 Acquired absence of other parts of urinary tract; Z87.440 Personal history of urinary (tract) infections

== ENCOUNTER 2019-07-18 12:25 | Inpatient (IN) | payer MEDICARE, BC, OTHER ==
[~2019-07-18] VITALS: Ht 156.2 cm; Wt 95.9 kg
[~2019-07-18 12:25] MED LIST changes: +ABIL1TAB13 PO; +ACYC200C8 PO; +ALB2.5NEB NEB; +AMANTADINE HCL PO; +ASPI81CH8 PO; +ATOR1TAB21 PO; +BISA10SU PR; +COLA100C5 PO; +CYMB1CAP5 PO; +HEPA500011 SQ; +IPRA0.00 NEB; +KLOR10TA76 PO; +MELO7.5T35 PO; +MERO1INJ IV; +MORP1SOL3 PO; +NYAM10003 TOP; +OMEP-218 PO; +PHEN30CA PO; +SIME80TA PO; +TRAZ-252 PO; +XIFA200T2 PO; +[UNRECOGNIZED DRUG - CODE] IJ
[2019-07-18 13:30] VITALS: BP 109/69
[2019-07-18] MEDS ORDERED: LACTULOSE 20 GM/30 ML SYRUP UD PO PRN (14:30)
[2019-07-18] MEDS ORDERED: ALBUTEROL 90 MCG/ACT 8GM HFA INHALER INH PRN (14:30)
[2019-07-18] MEDS ORDERED: NYSTATIN CREAM 15 GM TOP PRN (14:30)
[2019-07-18] MEDS ORDERED: BISACODYL 10 MG SUPP PR PRN (14:30)
[2019-07-18] MEDS: MORPHINE SULFATE ORAL SOLN 10 MG/5 ML UD PO PRN ×2 (16:16→22:27)
[2019-07-18] MEDS: BACLOFEN 10 MG TAB PO SCH ×2 (16:17→22:32)
[2019-07-18] MEDS: SIMETHICONE 80 MG CHEW TAB PO SCH ×2 (16:17→22:28)
[2019-07-18] MEDS: IPRATROPIUM 0.5MG/ALBUTEROL 2.5MG INH SOL UD 3ML (DUONEB)(J7620) NEB SCH (18:10)
[2019-07-18 20:00] VITALS: BP 97/55
[2019-07-18] MEDS: ONDANSETRON 4MG/2ML VIAL (J2405) IV PRN (22:27)
[2019-07-18] MEDS: DOCUSATE SODIUM 100 MG CAP PO SCH (22:27)
[2019-07-18] MEDS: DULoxetine 30 MG CAP (CYMBALTA) PO SCH (22:28)
[2019-07-18] MEDS: traZODone 50 MG TAB PO SCH (22:28)
[2019-07-18] MEDS: PHENYTOIN ER 100 MG CAP PO SCH (22:28)
[2019-07-18] MEDS: levETIRAcetam 250MG TABLET (KEPPRA) PO SCH (22:29)
[2019-07-18] MEDS: PREGABALIN 100 MG CAP (LYRICA) PO SCH (22:29)
[2019-07-18] MEDS: PHENYTOIN ER 30 MG CAP PO SCH (22:30)
[2019-07-18] MEDS: AMANTADINE 100 MG CAP PO SCH (22:30)
[2019-07-18] MEDS: clonazePAM 1 MG TAB PO SCH (22:31)
[2019-07-18] MEDS: ACYCLOVIR 200 MG CAPSULE PO SCH (22:31)
[2019-07-18] MEDS: SENNA 8.6 MG TAB (SENOKOT) PO SCH (22:31)
[2019-07-18 23:59] VITALS: BP 80/50
[2019-07-19] MEDS ORDERED: SLF 3 ML SYR IV PRN (01:45)
[2019-07-19] MEDS: IPRATROPIUM 0.5MG/ALBUTEROL 2.5MG INH SOL UD 3ML (DUONEB)(J7620) NEB SCH ×4 (02:00→20:35)
[2019-07-19 04:00] VITALS: BP 94/55
[2019-07-19 04:53] LABS: HEMATOCRIT 23.1 % (36.0-47.0); HEMOGLOBIN 7.4 g/dl (12.0-15.5); MEAN CORPUSCULAR HEMOGLOBIN 24.8 pg (27.0-33.0); MEAN CORPUSCULAR VOLUME 77.5 fl (80.0-96.0); PLATELET COUNT, AUTOMATED 192 10^3/uL (150-450); RED BLOOD COUNT 2.98 10^6/uL (4.00-5.40); WHITE BLOOD COUNT 3.8 10^3/uL (4.0-10.0)
[2019-07-19 05:14] LABS: CALCIUM LEVEL 7.7 MG/DL (8.5-10.1); CREATININE FOR GFR 1.26 MG/DL (0.55-1.30); GLOMERULAR FILTRATION RATE 47.7 (>51); PHENYTOIN (DILANTIN) 18.4 UG/ML (10.0-20.0)
[2019-07-19] MEDS: SLF 3 ML SYR IV SCH ×3 (06:25→21:54)
[2019-07-19] MEDS: LEVOTHYROXINE 50MCG TABLET (0.05MG) PO SCH (06:25)
[2019-07-19 08:00] VITALS: BP 102/59
[2019-07-19] MEDS: AMANTADINE 100 MG CAP PO SCH ×2 (09:19→21:54)
[2019-07-19] MEDS: MORPHINE SULFATE ORAL SOLN 10 MG/5 ML UD PO PRN ×2 (09:19→15:30)
[2019-07-19] MEDS: SENOKOT S TAB PO SCH ×2 (09:20→21:53)
[2019-07-19] MEDS: SIMETHICONE 80 MG CHEW TAB PO SCH ×3 (09:20→21:53)
[2019-07-19] MEDS: DOCUSATE SODIUM 100 MG CAP PO SCH ×2 (09:20→21:49)
[2019-07-19] MEDS: METOPROLOL SUCC *XL* 25MG TAB (TopROL *XL*) PO SCH (09:20)
[2019-07-19] MEDS: DULoxetine 30 MG CAP (CYMBALTA) PO SCH ×2 (09:21→21:50)
[2019-07-19] MEDS: ATORVASTATIN 20 MG TAB PO SCH (09:21)
[2019-07-19] MEDS: clonazePAM 1 MG TAB PO SCH ×2 (09:21→21:50)
[2019-07-19] MEDS: levETIRAcetam 250MG TABLET (KEPPRA) PO SCH ×2 (09:21→21:50)
[2019-07-19] MEDS: PREGABALIN 100 MG CAP (LYRICA) PO SCH ×2 (09:21→21:50)
[2019-07-19] MEDS: BACLOFEN 10 MG TAB PO SCH ×3 (09:22→21:53)
[2019-07-19] MEDS: ARIPiprazole 2 MG TAB PO SCH (09:22)
[2019-07-19] MEDS: MELOXICAM (MOBIC) 7.5 MG TAB PO SCH (09:22)
[2019-07-19] MEDS: ACYCLOVIR 200 MG CAPSULE PO SCH ×2 (09:23→21:51)
[2019-07-19] MEDS: LACTULOSE 20 GM/30 ML SYRUP UD PO SCH ×3 (11:15→23:28)
--- NOTE | 2019-07-19 11:55 | IPNPDOC ---
Date Seen The patient was seen on 07/19/19. Progress Note SUBJECTIVE: Patient is a 53-year-old female presented with elevated ammonia levels from acute rehabilitation unit after recent admission for altered mental status secondary to UTI. Patient is examined today in her room laying in bed. She is wearing dark sunglasses, which she wears all the time because bright lights cause her to have worsening headaches. She denies any current confusion. She states she does have some diffuse abdominal discomfort and pain in the right upper and lower quadrants. She states she has not had a bowel movement recently. She denies any fevers, chills, chest pain, palpitations, shortness of breath, cough, diarrhea, nausea/vomiting. OBJECTIVE : PHYSICAL EXAMINATION: VITAL SIGNS: Please see below. GENERAL: Alert, comfortable, no acute distress. HEENT: PERRLA, EOMI, moist mucous membranes CARDIOVASCULAR: Regular rate and rhythm, normal S1, S2, no murmurs appreciated. RESPIRATORY: Clear to auscultation bilaterally, no wheezing. ABDOMINAL:, Soft, mildly distended, diffusely tender to palpation, bowel sounds present. EXTREMITIES: Trace edema in bilateral lower extremities, pulses 2+/4 and radial and dorsalis pedis arteries. NEUROLOGICAL: Alert and oriented 3 to person, place and time, no focal deficits appreciated. PSYCHOLOGICAL: Normal mood and affect LABORATORY DATA, IMAGING STUDIES, MICROBIOLOGY: Please see below. ASSESSMENT AND PLAN: This is a 53-year-old female presented with elevated ammonia levels from acute rehabilitation unit after recent admission for altered mental status secondary to UTI. PROBLEMS: 1. Elevated ammonia levels. Mental status currently appears stable and at her baseline. Dilantin levels normal. May be secondary to her Keppra, if not resolved. May consult neurology to consider a replacement medication. Patient currently constipated, will treat with additional doses of lactulose. If this does not improve, consider lactulose enema. Continue with home rifaximin as well. Continue to monitor ammonia levels for improvement. 2. Constipation. Will start additional doses of lactulose today for her constipation and consider lactulose enema if she does not have a BM by this afternoon. Continue with Colace and Senokot. 3. Multiple sclerosis. Continue home medications and PT 4. Hypertension. Continue home metoprolol 5. Hyperlipidemia. Continue home atorvastatin 6. History of herpes zoster. Continue home Zovirax 7. Hypothyroidism Continue home levothyroxine 8. Depression Continue home trazodone and Cymbalta DISPOSITION: Inpatient pending clinical improvement VS, I&O, 24H, Rafael Vital Signs/I&O Vital Signs Date Time Temp Pulse Resp B/P (MAP) Pulse Ox O2 Delivery O2 Flow Rate FiO2 07/19/19 09:49 18 07/19/19 09:20 94 102/59 07/19/19 08:00 97.2 100 I&O- Last 24 Hours up to 6 AM 07/19/19 06:00 Intake Total 1200 ml Output Total 925 ml Balance 275 ml Laboratory Data 24H LABS Laboratory Tests 2 07/19/19 04:17: Nucleated Red Blood Cells % (auto) 0.0, Anion Gap 9, Glomerular Filtration Rate 47.7L, Blood Urea Nitrogen 15, Creatinine 1.26, Sodium Level 145, Potassium Level 4.0, Chloride Level 110H, Carbon Dioxide Level 26, Calcium Level 7.7L, Ammonia 44H, Phenytoin (Dilantin) Level 18.4 CBC/BMP Laboratory Tests 07/19/19 04:17 Red Blood Count 2.98 L, Mean Corpuscular Volume 77.5 L, Mean Corpuscular Hemoglobin 24.8 L, Mean Corpuscular Hemoglobin Concent 32.0, Red Cell Distribution Width 16.6 H, Calcium Level 7.7 L SPARKLE WINSLOW PGY-1 Jul 19, 2019 11:55
[2019-07-19 12:00] VITALS: BP 93/50
[2019-07-19 16:00] VITALS: BP 107/64
[2019-07-19] MEDS ORDERED: FLEET OIL RETENTION ENEMA PR ONE (18:30)
[2019-07-19 20:00] VITALS: BP 110/71
[2019-07-19] MEDS: PHENYTOIN ER 30 MG CAP PO SCH (21:51)
[2019-07-19] MEDS: traZODone 50 MG TAB PO SCH (21:51)
[2019-07-19] MEDS: SENNA 8.6 MG TAB (SENOKOT) PO SCH (21:51)
[2019-07-19] MEDS: ASPIRIN 81 MG ENTERIC TAB PO SCH (21:51)
[2019-07-19] MEDS: PHENYTOIN ER 100 MG CAP PO SCH (21:52)
[2019-07-19 23:59] VITALS: BP 99/54
[2019-07-20] MEDS: IPRATROPIUM 0.5MG/ALBUTEROL 2.5MG INH SOL UD 3ML (DUONEB)(J7620) NEB SCH ×4 (01:39→19:52)
[2019-07-20 04:00] VITALS: BP 92/49
[2019-07-20 05:48] LABS: HEMATOCRIT 23.7 % (36.0-47.0); HEMOGLOBIN 7.8 g/dl (12.0-15.5); MEAN CORPUSCULAR HEMOGLOBIN 26.2 pg (27.0-33.0); MEAN CORPUSCULAR HGB CONC 32.9 g/dl (32.0-36.5); MEAN CORPUSCULAR VOLUME 79.5 fl (80.0-96.0); PLATELET COUNT, AUTOMATED 199 10^3/uL (150-450); RED BLOOD COUNT 2.98 10^6/uL (4.00-5.40); WHITE BLOOD COUNT 3.9 10^3/uL (4.0-10.0)
[2019-07-20] MEDS: LACTULOSE 20 GM/30 ML SYRUP UD PO SCH ×4 (05:53→20:58)
[2019-07-20] MEDS: SLF 3 ML SYR IV SCH ×3 (05:53→20:53)
[2019-07-20] MEDS: LEVOTHYROXINE 50MCG TABLET (0.05MG) PO SCH (05:53)
[2019-07-20] MEDS ORDERED: FLEET OIL RETENTION ENEMA PR ONE ×2 (06:00)
[2019-07-20 06:21] LABS: BLOOD UREA NITROGEN 14 MG/DL (7-18); CALCIUM LEVEL 8.1 MG/DL (8.5-10.1); CARBON DIOXIDE LEVEL 26 MEQ/L (21-32); CHLORIDE LEVEL 112 MEQ/L (98-107); CREATININE FOR GFR 1.18 MG/DL (0.55-1.30); GLOMERULAR FILTRATION RATE 51.4 (>51); GLUCOSE, FASTING 114 MG/DL (70-100); POTASSIUM SERUM 3.7 MEQ/L (3.5-5.1); SODIUM LEVEL 146 MEQ/L (136-145)
[2019-07-20] MEDS: ONDANSETRON 4MG/2ML VIAL (J2405) IV PRN ×3 (06:55→20:41)
[2019-07-20 08:00] VITALS: BP 101/59
[2019-07-20 08:58] LABS: ALBUMIN 2.7 GM/DL (3.2-5.2); ALT/SGPT 21 U/L (12-78); BILIRUBIN,DIRECT < 0.1 MG/DL (0.0-0.2); BILIRUBIN,TOTAL 0.1 MG/DL (0.2-1.0); TOTAL PROTEIN 5.8 GM/DL (6.4-8.2)
[2019-07-20] MEDS: ATORVASTATIN 20 MG TAB PO SCH (09:03)
[2019-07-20] MEDS: DULoxetine 30 MG CAP (CYMBALTA) PO SCH ×2 (09:04→20:52)
[2019-07-20] MEDS: MELOXICAM (MOBIC) 7.5 MG TAB PO SCH (09:04)
[2019-07-20] MEDS: ACYCLOVIR 200 MG CAPSULE PO SCH ×2 (09:04→20:43)
[2019-07-20] MEDS: PREGABALIN 100 MG CAP (LYRICA) PO SCH ×2 (09:04→20:44)
[2019-07-20] MEDS: SIMETHICONE 80 MG CHEW TAB PO SCH ×3 (09:04→20:52)
[2019-07-20] MEDS: DOCUSATE SODIUM 100 MG CAP PO SCH ×2 (09:04→21:00)
[2019-07-20] MEDS: SENOKOT S TAB PO SCH ×2 (09:04→20:43)
[2019-07-20] MEDS: ARIPiprazole 2 MG TAB PO SCH (09:05)
[2019-07-20] MEDS: BACLOFEN 10 MG TAB PO SCH ×3 (09:05→20:44)
[2019-07-20] MEDS: clonazePAM 1 MG TAB PO SCH ×2 (09:05→20:44)
[2019-07-20] MEDS: AMANTADINE 100 MG CAP PO SCH ×2 (09:05→20:43)
[2019-07-20] MEDS: levETIRAcetam 250MG TABLET (KEPPRA) PO SCH ×2 (09:05→20:53)
[2019-07-20] MEDS: METOPROLOL SUCC *XL* 25MG TAB (TopROL *XL*) PO SCH (09:06)
[2019-07-20] MEDS: MORPHINE SULFATE ORAL SOLN 10 MG/5 ML UD PO PRN ×2 (11:12→18:02)
--- NOTE | 2019-07-20 11:24 | IPNPDOC ---
Date Seen The patient was seen on 07/20/19. Progress Note SUBJECTIVE: Patient is a 53-year-old female presented with elevated ammonia levels from acute rehabilitation unit after recent admission for altered mental status secondary to UTI. Patient is examined today in her room sitting up in a chair. She is wearing dark sunglasses, which she wears all the time because bright lights cause her to have worsening headaches. She denies any current confusion. She continues to have diffuse abdominal discomfort and occasional sharp pains that only last a few seconds. She did have a large BM this morning but does continue to feel tender and distended. She denies any fevers, chills, chest pain, palpitations, shortness of breath, cough, diarrhea, nausea/vomiting. OBJECTIVE : PHYSICAL EXAMINATION: VITAL SIGNS: Please see below. GENERAL: Alert, comfortable, no acute distress. HEENT: PERRLA, EOMI, moist mucous membranes CARDIOVASCULAR: Regular rate and rhythm, normal S1, S2, no murmurs appreciated. RESPIRATORY: Clear to auscultation bilaterally, no wheezing. ABDOMINAL:, Soft, mildly distended, diffusely tender to palpation, bowel sounds present. EXTREMITIES: Trace edema in bilateral lower extremities, pulses 2+/4 and radial and dorsalis pedis arteries. NEUROLOGICAL: Alert and oriented 3 [address] person, place and time, no focal deficits appreciated. PSYCHOLOGICAL: Normal mood and affect LABORATORY DATA, IMAGING STUDIES, MICROBIOLOGY: Please see below. ASSESSMENT AND PLAN: This is a 53-year-old female presented with elevated ammonia levels from acute rehabilitation unit after recent admission for altered mental status secondary to UTI. PROBLEMS: 1. Elevated ammonia levels. Mental status currently appears stable and at her baseline. Dilantin levels normal. May be secondary to her Keppra, if not resolved. May consult neurology to consider a replacement medication. Continue with home rifaximin. Pt did have a large BM this morning, will recheck ammonia level today to see if it has improved. 2. Constipation. Continue with Colace, Senokot, and lactulose. Patient did receive a mineral oil enema this morning and subsequently had a la rge BM. Will continue to manage her bowel regimen and expect relief of her abdominal discomfort with further BMs 3. Multiple sclerosis. Continue home medications and PT 4. Hypertension. Continue home metoprolol 5. Hyperlipidemia. Continue home atorvastatin 6. History of herpes zoster. Continue home Zovirax 7. Hypothyroidism Continue home levothyroxine 8. Depression Continue home trazodone and Cymbalta DISPOSITION: Inpatient pending clinical improvement VS, I&O, 24H, Rafael Vital Signs/I&O Vital Signs Date Time Temp Pulse Resp B/P (MAP) Pulse Ox O2 Delivery O2 Flow Rate FiO2 07/20/19 11:12 18 07/20/19 09:06 102/60 07/20/19 08:00 97.5 87 92 I&O- Last 24 Hours up to 6 AM 07/20/19 05:59 Intake Total 2230 ml Output Total 300 ml Balance 1930 ml Laboratory Data 24H LABS Laboratory Tests 2 07/20/19 05:27: Nucleated Red Blood Cells % (auto) 0.0, Anion Gap 8, Glomerular Filtration Rate 51.4, Calcium Level 8.1L, Aspartate Amino Transf (AST/SGOT) 15, Alanine Aminotransferase (ALT/SGPT) 21, Alkaline Phosphatase 186H, Total Bilirubin 0.1L, Direct Bilirubin < 0.1, Ammonia 51H, Total Protein 5.8L, Albumin 2.7L, Albumin/Globulin Ratio 0.87L 07/20/19 10:08: Ammonia 27 CBC/BMP Laboratory Tests 07/20/19 05:27 Red Blood Count 2.98 L, Mean Corpuscular Volume 79.5 L, Mean Corpuscular Hemoglobin 26.2 L, Mean Corpuscular Hemoglobin Concent 32.9, Red Cell Distribut ion Width 16.6 H SPARKLE WINSLOW PGY-1 Jul 20, 2019 11:24
[2019-07-20 12:00] VITALS: BP 104/59
[2019-07-20 12:51] LABS: INR 1.05; PROTHROMBIN TIME 13.4 SECONDS (11.8-14.0)
[2019-07-20 12:52] LABS: PARTIAL THROMBOPLASTIN TIME 30.9 SECONDS (25.0-38.4)
[2019-07-20 16:00] VITALS: BP 116/78
[2019-07-20 20:00] VITALS: BP 111/72
[2019-07-20] MEDS: traZODone 50 MG TAB PO SCH (20:44)
[2019-07-20] MEDS: PHENYTOIN ER 30 MG CAP PO SCH (20:45)
[2019-07-20] MEDS: ASPIRIN 81 MG ENTERIC TAB PO SCH (20:45)
[2019-07-20] MEDS: PHENYTOIN ER 100 MG CAP PO SCH (20:48)
[2019-07-20] MEDS: SENNA 8.6 MG TAB (SENOKOT) PO SCH (20:53)
[2019-07-21] VITALS: BP 111/69
[2019-07-21] MEDS: MORPHINE SULFATE ORAL SOLN 10 MG/5 ML UD PO PRN (00:23)
[2019-07-21] MEDS: IPRATROPIUM 0.5MG/ALBUTEROL 2.5MG INH SOL UD 3ML (DUONEB)(J7620) NEB SCH ×3 (02:00→13:43)
[2019-07-21 04:00] VITALS: BP 116/57
[2019-07-21 05:42] LABS: HEMATOCRIT 24.5 % (36.0-47.0); HEMOGLOBIN 7.6 g/dl (12.0-15.5); MEAN CORPUSCULAR VOLUME 80.6 fl (80.0-96.0); PLATELET COUNT, AUTOMATED 205 10^3/uL (150-450); RED BLOOD COUNT 3.04 10^6/uL (4.00-5.40); WHITE BLOOD COUNT 4.6 10^3/uL (4.0-10.0)
[2019-07-21 06:02] LABS: CALCIUM LEVEL 7.8 MG/DL (8.5-10.1); CREATININE FOR GFR 1.11 MG/DL (0.55-1.30); GLOMERULAR FILTRATION RATE 55.2 (>51); POTASSIUM SERUM 3.1 MEQ/L (3.5-5.1)
[2019-07-21] MEDS: LEVOTHYROXINE 50MCG TABLET (0.05MG) PO SCH (06:19)
[2019-07-21] MEDS: LACTULOSE 20 GM/30 ML SYRUP UD PO SCH ×2 (06:19→12:14)
[2019-07-21] MEDS: SLF 3 ML SYR IV SCH ×2 (06:19→13:02)
[2019-07-21 07:28] LABS: MAGNESIUM LEVEL 1.1 MG/DL (1.8-2.4)
[2019-07-21] MEDS ORDERED: FLEET OIL RETENTION ENEMA PR ONE (07:45)
[2019-07-21 08:00] VITALS: BP 119/61
[2019-07-21] MEDS: MAG SULF 1GM/100ML (MAG RUN) 1 GM in APPROPRIATE DILUENT 1 EA IV SCH ×2 (08:06→09:58)
[2019-07-21] MEDS: DOCUSATE SODIUM 100 MG CAP PO SCH (08:06)
[2019-07-21] MEDS: MELOXICAM (MOBIC) 7.5 MG TAB PO SCH (08:09)
[2019-07-21] MEDS: DULoxetine 30 MG CAP (CYMBALTA) PO SCH (08:09)
[2019-07-21] MEDS: ATORVASTATIN 20 MG TAB PO SCH (08:09)
[2019-07-21] MEDS: SIMETHICONE 80 MG CHEW TAB PO SCH (08:09)
[2019-07-21] MEDS: BACLOFEN 10 MG TAB PO SCH (08:09)
[2019-07-21] MEDS: levETIRAcetam 250MG TABLET (KEPPRA) PO SCH (08:10)
[2019-07-21] MEDS: PREGABALIN 100 MG CAP (LYRICA) PO SCH (08:10)
[2019-07-21] MEDS: clonazePAM 1 MG TAB PO SCH (08:10)
[2019-07-21] MEDS: ACYCLOVIR 200 MG CAPSULE PO SCH (08:10)
[2019-07-21] MEDS: SENOKOT S TAB PO SCH (08:10)
[2019-07-21] MEDS: AMANTADINE 100 MG CAP PO SCH (08:11)
[2019-07-21] MEDS: ARIPiprazole 2 MG TAB PO SCH (08:11)
[2019-07-21 08:13] VITALS: BP 120/62
[2019-07-21] MEDS: METOPROLOL SUCC *XL* 25MG TAB (TopROL *XL*) PO SCH (08:13)
[2019-07-21] MEDS ORDERED: POTASSIUM CHLORIDE 10 MEQ SR TABLET PO ONE (09:00)
[2019-07-21] MEDS ORDERED: FERROUS SULFATE 325MG TAB PO SCH (09:00)
--- NOTE | 2019-07-21 10:41 | IPNPDOC ---
Date Seen The patient was seen on 07/21/19. Progress Note SUBJECTIVE: Patient is a 53-year-old female presented with elevated ammonia levels from acute rehabilitation unit after recent admission for altered mental status secondary to UTI. Patient is examined today in her room sitting up in bed. . She denies any current confusion, and states she continues to mentate well. She denies any decreased appetite, but does admit she still feels somewhat distended, although improved from yesterday. She still has some diffuse abdominal discomfort with occasional sharp pains in her abdomen, which are transient for a few seconds. She states that yesterday afternoon she did not have any further bowel movements. She denies any fevers, chills, chest pain, palpitations, shortness of breath, cough, diarrhea, nausea/vomiting. OBJECTIVE : PHYSICAL EXAMINATION: VITAL SIGNS: Please see below. GENERAL: Alert, comfortable, no acute distress. HEENT: PERRLA, EOMI, moist mucous membranes CARDIOVASCULAR: Regular rate and rhythm, normal S1, S2, no murmurs appreciated. RESPIRATORY: Clear to auscultation bilaterally, no wheezing. ABDOMINAL:, Soft, mildly distended, diffusely tender to palpation, bowel sounds present. EXTREMITIES: Trace edema in bilateral lower extremities, pulses 2+/4 and radial and dorsalis pedis arteries. NEUROLOGICAL: Alert and oriented 3 to person, place and time, no focal deficits appreciated. PSYCHOLOGICAL: Normal mood and affect LABORATORY DATA, IMAGING STUDIES, MICROBIOLOGY: Please see below. ASSESSMENT AND PLAN: This is a 53-year-old female presented with elevated ammonia levels from acute rehabilitation unit after recent admission for altered mental status secondary to UTI. PROBLEMS: 1. Elevated ammonia levels. Mental status currently appears stable and at her baseline. Dilantin levels normal. May be secondary to her Keppra, if not resolved. May consult neurology to consider a replacement medication. Continue with home rifaximin. Continue with lactulose Ammonia level down to 27 yesterday but back up to 45 today. Pt did have several large BM yesterday after an enema but was again constipated after this. Will re peat the enema this morning and recheck ammonia 2. Constipation. Continue with Colace, Senokot, and lactulose. Patient did receive a mineral oil enema yesterday with good effect but did not continue to have sufficient BM, will repeat enema this morning Will continue to manage her bowel regimen and expect relief of her abdominal discomfort with further BMs 3. Multiple sclerosis. Continue home medications and PT 4. Hypertension. Continue home metoprolol 5. Hyperlipidemia. Continue home atorvastatin 6. History of herpes zoster. Continue home Zovirax 7. Hypothyroidism Continue home levothyroxine 8. Depression Continue home trazodone and Cymbalta DISPOSITION: Inpatient pending clinical improvement VS, I&O, 24H, Fishbone Vital Signs/I&O Vital Signs Date Time Temp Pulse Resp B/P (MAP) Pulse Ox O2 Delivery O2 Flow Rate FiO2 07/21/19 08:13 120/62 07/21/19 08:00 97.1 92 16 91 I&O- Last 24 Hours up to 6 AM 07/21/19 05:59 Intake Total 3030 ml Output Total 600 ml Balance 2430 ml Laboratory Data 24H LABS Laboratory Tests 2 07/20/19 11:52: Prothrombin Time 13.4, Prothromb Time International Ratio 1.05, Activated Partial Thromboplast Time 30.9 07/21/19 05:08: Nucleated Red Blood Cells % (auto) 0.0, Anion Gap 5L, Glomerular Filtration Rate 55.2, Blood Urea Nitrogen 14, Creatinine 1.11, Sodium Level 143, Potassium Level 3.1L, Chloride Level 112H, Carbon Dioxide Level 26, Calcium Level 7.8L, Magnesium Level 1.1L, Ammonia 45H CBC/BMP Laboratory Tests 07/21/19 05:08 Red Blood Count 3.04 L, Mean Corpuscular Volume 80.6, Mean Corpuscular Hemoglobin 25.0 L, Mean Corpuscular Hemoglobin Concent 31.0 L, Red Cell Distribution Width 16.7 H, Calcium Level 7.8 L SPARKLE WINSLOW PGY-1 Jul 21, 2019 10:41
[2019-07-21] MEDS ORDERED: LACT10SO29 PO (11:41)
[2019-07-21] MEDS ORDERED: SENN-52 PO (11:41)
[2019-07-21] MEDS ORDERED: FLEETOIL PR (11:41)
[2019-07-21] MEDS ORDERED: FERR325T18 PO (11:56)
[2019-07-21] MEDS ORDERED: XIFA200T2 PO (11:56)
[2019-07-21 12:00] VITALS: BP 108/61
[2019-07-21] MEDS ORDERED: MORP1SOL3 PO (13:23)
--- NOTE | 2019-07-21 18:13 | DS.PDOC ---
Discharge Summary General Date of Admission Jul 18, 2019 at 13:31 Date of Discharge 07/21/2019 Primary Care Physician: KARLENE ROSADO MD Attending Physician: ALIN IRWIN MD Discharge Summary PROCEDURES PERFORMED DURING STAY: None ADMITTING DIAGNOSES: 1. Elevated ammonia levels. 2. Constipation. 3. Multiple sclerosis. 4. Hypertension. 5. Hyperlipidemia. 6. History of herpes zoster. 7. Hypothyroidism 8. Depression DISCHARGE DIAGNOSES: 1. Elevated ammonia levels. 2. Constipation. 3. Multiple sclerosis. 4. Hypertension. 5. Hyperlipidemia. 6. History of herpes zoster. 7. Hypothyroidism 8. Depression COMPLICATIONS/CHIEF COMPLAINT: Increased Ammonia Level. HISTORY OF PRESENT ILLNESS: 53-year-old female who was admitted to the hospital from ARU with elevated ammonia levels. She had been recently admitted for altered mental status secondary to UTI. She did recently have a change in her medications from Depakote to Keppra due to elevated ammonia levels. She has also been on rifaximin and lactulose for this. Her ammonia levels had improved, but were found to be elevated again and she was admitted for further care. HOSPITAL COURSE: Patient was admitted to the hospital and started on a bowel regimen due to extensive constipation. The patient was found to be alert and oriented without any altered mental status. She continued to be alert and orient ed during her admission, without any changes in her mental status. She was found to be diffusely tender and distended. She was started on Senokot and scheduled lactulose. However, she continued to be constipated without a bowel movement. Her ammonia level continued to be elevated and increased. She was then given mineral oil enema with good effect. A large BM. After this, her ammonia level had dropped down to 27. The following morning, her ammonia level had increased back up to 45. She was given another minimal oral enema the following morning. Patient was also evaluated for liver dysfunction. Liver enzymes in function tests were found to be normal and recent imaging did not show any chronic or acute changes in the liver. Liver fibrosis score is pending. May consider outpatient evaluation by GI specialist. On the day of discharge, the patient was found to be stable and safe for discharge home with services. She will continue a regular bowel regimen. During her admission, she worked with physical therapy, who evaluated that she was safe for discharge home with services instead of back to ARU. DISCHARGE MEDICATIONS: Please see below. ALLERGIES: Please see below. PHYSICAL EXAMINATION ON DISCHARGE: VITAL SIGNS: Please see below. GENERAL: Alert, comfortable, no acute distress. HEENT: PERRLA, EOMI, moist mucous membranes CARDIOVASCULAR EXAMINATION: Regular rate and rhythm, normal S1, S2, no murmurs appreciated. RESPIRATORY EXAMINATION: Clear to auscultation bilaterally, no wheezing. ABDOMINAL EXAMINATION: Soft, mildly distended, diffusely tender to palpation, bowel sounds present. EXTREMITIES: Trace edema in bilateral lower extremities, pulses 2+/4 and radial and dorsalis pedis arteries. NEUROLOGICAL EXAMINATION: Alert and oriented 3 to person, place and time, no focal deficits appreciated. PSYCHIATRIC EXAMINATION: Normal mood and affect LABORATORY DATA: Please see below. IMAGING: None PROGNOSIS: Good ACTIVITY: Per PT DIET: High-fiber DISCHARGE PLAN: Home with services DISPOSITION: Home Health Service. DISCHARGE INSTRUCTIONS: 1. Follow up with your PCP in 7-10 days 2. We have made changes to some of your medications which help prevent and treat constipation. Please stop taking your home senna and colace. Please start using Sennakot S and lactulose daily as prescribed. Please also use the mineral oil enema every 2-3 days. 3. Focus on eating more fiber in your diet, especially green vegetables. You may add a fiber supplement such as metamucil or benefiber if you feel you are not eating a lot of vegetables at home. You can discuss this further with you PCP at your scheduled follow up. 4. Continue all of you other home medications. 5. If your symptoms return please call your PCP or return to the ER for further evaluation 6. For care home pain managemenet please discuss with pcp about pain referrel. ITEMS TO FOLLOWUP ON ON OUTPATIENT: 1. Elevated ammonia levels, consider further workup for liver abnormalities, consider referral to GI specialist 2. Constipation, management, and increased fiber intake DISCHARGE CONDITION: Stable TIME SPENT ON DISCHARGE: Greater than 35 minutes. Vital Signs/I&Os Vital Signs Date Time Temp Pulse Resp B/P (MAP) Pulse Ox O2 Delivery O2 Flow Rate FiO2 07/21/19 12:00 97.2 81 16 108/61 (77) 92 I&O- Last 24 Hours up to 6 AM 07/21/19 06:00 Intake Total 2900 ml Output Total 1025 ml Balance 1875 ml Laboratory Data Labs 24H Laboratory Tests 2 07/21/19 05:08: Nucleated Red Blood Cells % (auto) 0.0, Anion Gap 5L, Glomerular Filtration Rate 55.2, Blood Urea Nitrogen 14, Creatinine 1.11, Sodium Level 143, Potassium Level 3.1L, Chloride Level 112H, Carbon Dioxide Level 26, Calcium Level 7.8L, Magnesium Level 1.1L, Ammonia 45H CBC/BMP Laboratory Tests 07/21/19 05:08 Red Blood Count 3.04 L, Mean Corpuscular Volume 80.6, Mean Corpuscular Hemoglobin 25.0 L, Mean Corpuscular Hemoglobin Concent 31.0 L, Red Cell Distribution Width 16.7 H, Calcium Level 7.8 L Discharge Medications Scheduled Acyclovir (Acyclovir) 400 Mg Tab, 400 MG PO BID, (Reported) Amantadine HCl (Amantadine) 100 Mg Tab, 100 MG PO BID, (Reported) Aripiprazole (Abilify) 2 Mg Tablet, 1 MG PO DAILY Aspirin (Ecotrin) 81 Mg Tablet.dr, 81 MG PO QHS, (Reported) Aspirin (Children's Aspirin) 81 Mg Tab.chew, 81 MG PO DAILY Atorvastatin Calcium (Atorvastatin Calcium) 40 Mg Tablet, 40 MG PO DAILY, (Reported) Baclofen (Baclofen) 10 Mg Tablet, 10 MG PO TID, (Reported) Clonazepam (Clonazepam) 1 Mg Tab, 1 MG PO BID, (Reported) Duloxetine Hcl (Duloxetine HCl) 60 Mg Capsule.dr, 60 MG PO BID, (Reported) Ferrous Sulfate (Ferrous Sulfate) 325 Mg Tablet, 325 MG PO BID Heparin Sodium,Porcine (Heparin Sodium) 5,000 Unit/1 Ml Vial, 5,000 UNITS SQ Q12 H Hydroxyzine HCl (Hydroxyzine HCl) 50 Mg Tablet, 50 MG PO BID Ipratropium/Albuterol Sulfate (Iprat-Albut 0.5-3(2.5) mg/3 ml) 3 Ml Ampul.neb, 3 ML NEB RQ6H Lactulose (Lactulose) 10 Gm/15 Ml Solution, 30 ML PO TID for constipation Levetiracetam (Keppra) 500 Mg Tablet, 500 MG PO BID, (Reported) Levothyroxine Sodium (Levothyroxine Sodium) 50 Mcg Tablet, 50 MCG PO QAM, (Repo rted) 30 MINUTES BEFORE BREAKFAST Meloxicam (Meloxicam) 15 Mg Tablet, 15 MG PO DAILY, (Reported) Metoprolol Succinate (Metoprolol Succinate) 25 Mg Tab, 25 MG PO DAILY, (Reported) Mineral Oil (Mineral Oil Enema) 133 Ml Enema, 1 EA MN Q2D Omeprazole (Omeprazole) 40 Mg Cap, 40 MG PO BID, (Reported) Phenytoin (Dilantin) 30 Mg Capsule, 30 MG PO QHS Phenytoin Sodium Extended (Dilantin) 100 Mg Capsule, 400 MG PO QHS Potassium Chloride (Klor-Con M10) 10 Meq Tab.er.prt, 20 MEQ PO DAILY Pregabalin (Lyrica) 100 Mg Capsule, 300 MG PO BID, (Reported) Rifaximin (Xifaxan) 200 Mg Tablet, 400 MG PO TID Complete full 30 day course Sennosides/Docusate Sodium (Senna Plus Tablet) 1 Each Tablet, 2 TAB PO BID Simethicone (Simethicone) 80 Mg Tab.chew, 80 MG PO TID Trazodone HCl (Trazodone HCl) 150 Mg Tablet, 150 MG PO QHS, (Reported) Scheduled PRN Albuterol Sulfate (Ventolin Hfa) 108 Mcg/Act Aer, 2 PUFFS INH Q4H PRN for SHORTNESS OF BREATH, (Reported) Albuterol Sulfate (Albuterol Sulfate) 2.5 Mg/0.5 Ml Vial.neb, 2.5 MG NEB Q2HP PRN for SOB/WHEEZING Bisacodyl (Bisacodyl) 10 Mg Sup, 10 MG MN DAILY PRN for CONSTIPATION, (Reported) Mometasone Furoate (Asmanex Hfa) 100 Mcg/Act Aer, 1 PUFF INH QPM PRN for ASTHMA, (Reported) Morphine Sulfate (Morphine Sulfate) 10 Mg/5 Ml Solution, 2 MG PO Q6H PRN for SEVERE PAIN (PS 8-10) Morphine Sulfate (Morphine Sulfate) 10 Mg/5 Ml Solution, 2.5 ML PO Q4H PRN for PAIN Nystatin (Nystatin) 15 Gm Cream..g., 1 DOSE TOP DAILY PRN for RASH, (Reported) APPLIES TO UROSTOMY Allergies Coded Allergies: Cephalosporins (Verified Allergy, Mild, rash, 04/27/19) Sulfa (Sulfonamide Antibiotics) (Verified Allergy, Mild, itchy, 04/27/19) oxycodone (Verified Allergy, Mild, itchy, 04/27/19) hydrocodone (Verified Adverse Reaction, Intermediate, chest pain, 04/27/19) acetaminophen (Verified Adverse Reaction, Mild, NAUSEA, 04/27/19) SPARKLE WINSLOW PGY-1 Jul 21, 2019 17:06
== END 2019-07-21 15:25 | disposition home health service (06) | DRG 642 ==
LOC: M PCU 13:31
PROVIDERS: ADMIT Family Medicine; ATTEND Internal Medicine
DX: E72.20 Disorder of urea cycle metabolism, unspecified (principal); E87.1 Hypo-osmolality and hyponatremia; R41.82 Altered mental status, unspecified; G35 Multiple sclerosis; G40.909 Epilepsy, unspecified, not intractable, without status epilepticus; N31.9 Neuromuscular dysfunction of bladder, unspecified; K59.00 Constipation, unspecified; I11.9 Hypertensive heart disease without heart failure; M43.6 Torticollis; F48.2 Pseudobulbar affect; F32.9 Major depressive disorder, single episode, unspecified; T42.75XA Adverse effect of unspecified antiepileptic and sedative-hypnotic drugs, initial encounter; E03.9 Hypothyroidism, unspecified; B02.9 Zoster without complications; D50.9 Iron deficiency anemia, unspecified; E78.5 Hyperlipidemia, unspecified; E53.8 Deficiency of other specified B group vitamins; G43.909 Migraine, unspecified, not intractable, without status migrainosus; E66.9 Obesity, unspecified; E55.9 Vitamin D deficiency, unspecified; Z90.710 Acquired absence of both cervix and uterus; Z68.39 Body mass index [BMI] 39.0-39.9, adult; Z85.828 Personal history of other malignant neoplasm of skin; Z79.82 Long term (current) use of aspirin; Z79.899 Other long term (current) drug therapy; Z88.1 Allergy status to other antibiotic agents; Z88.2 Allergy status to sulfonamides; Z88.5 Allergy status to narcotic agent; Z88.6 Allergy status to analgesic agent

== ENCOUNTER → 2019-07-27 | Outpatient (REF) | payer MEDICARE, OTHER, MEDICAID ==
[~2019-07-27] MED LIST changes: +FERR325T18 PO; +FERR325T3 PO; +FLEETOIL PR; +LACT10SO3 PO; +MORP10SO2 PO; +MORP20SO PO; +PHEN100C PO; +PREG300C PO; +SENN-52 PO; +VITA500045 PO; +[UNRECOGNIZED DRUG - CODE] PO
[2019-07-27 13:59] LABS: BLOOD UREA NITROGEN 15 MG/DL (7-18); CALCIUM LEVEL 9.4 MG/DL (8.5-10.1); CARBON DIOXIDE LEVEL 27 MEQ/L (21-32); CHLORIDE LEVEL 107 MEQ/L (98-107); FERRITIN 36 NG/ML (8-252); GLOMERULAR FILTRATION RATE > 60.0 (>51); GLUCOSE, FASTING 113 MG/DL (70-100); IRON (FE) 40 UG/DL (50-170); MAGNESIUM LEVEL 1.8 MG/DL (1.8-2.4); PERCENT SATURATION 13.1 % (13.2-45.0); POTASSIUM SERUM 3.9 MEQ/L (3.5-5.1); SODIUM LEVEL 141 MEQ/L (136-145); TOTAL IRON BINDING CAPACITY 306 UG/DL (250-450)
== END ==
LOC: M SFHCPLAZ 11:59
PROVIDERS: ATTEND Family Medicine
DX: E72.20 Disorder of urea cycle metabolism, unspecified (principal); D50.9 Iron deficiency anemia, unspecified; E87.6 Hypokalemia; E83.42 Hypomagnesemia
CPT/HCPCS: 80048; 82140; 82728; 83735; 84466; 85046; G0463

== ENCOUNTER 2019-08-11 09:59 | Inpatient (IN) | payer MEDICARE, BC, OTHER, MEDICAID ==
[~2019-08-11] VITALS: Ht 154.9 cm; Wt 103.9 kg
[~2019-08-11 09:59] MED LIST changes: -FERR325T3 PO; -LACT10SO3 PO; -MORP10SO2 PO; -MORP20SO PO; -PHEN100C PO; -PREG300C PO; -VITA500045 PO; -[UNRECOGNIZED DRUG - CODE] PO
[2019-08-11] MEDS ORDERED: BACL1TAB9 PO (10:23)
[2019-08-11] MEDS ORDERED: SODIUM CHLORIDE 0.9% INJ 10 ML SYR IV PRN (10:45)
[2019-08-11 11:13] LABS: BASO % 0.1 % (0.0-1.0); EOS # 0.2 10^3/uL (0.0-0.5); EOS % 1.5 % (0.0-3.0); HEMATOCRIT 33.2 % (36.0-47.0); HEMOGLOBIN 10.7 g/dl (12.0-15.5); LYMPH # 0.6 10^3/uL (1.5-5.0); LYMPH % 3.8 % (24.0-44.0); MEAN CORPUSCULAR HEMOGLOBIN 26.4 pg (27.0-33.0); MEAN CORPUSCULAR HGB CONC 32.2 g/dl (32.0-36.5); MEAN CORPUSCULAR VOLUME 81.8 fl (80.0-96.0); MONO # 1.6 10^3/uL (0.0-0.8); MONO % 10.9 % (0.0-5.0); NEUTROPHILS # 12.4 10^3/uL (1.5-8.5); NEUTROPHILS % 82.9 % (36.0-66.0); PLATELET COUNT, AUTOMATED 286 10^3/uL (150-450); RED BLOOD COUNT 4.06 10^6/uL (4.00-5.40)
--- NOTE | 2019-08-11 11:34 | REP ---
CT of the lumbar spine without contrast Indication: Low back pain, morbid obesity. Evaluate for compression fracture. Comparison: None Technique: Axial CT of the lumbar spine was performed without contrast. Bone reformatted images were provided in the axial, sagittal and coronal planes. Findings: There is leftward curvature of the lumbar spine which could be positional. There is no acute fracture or subluxation of the lumbar spine. There is mild exaggeration of lumbar lordosis. Vertebral body heights are maintained. There is mild focal sclerosis along the superior endplate of L2 without depression. The CT appearance of the spinal canal is normal. The paraspinal soft tissues are within normal limits. The sacroiliac joints are intact. Impression: No acute fracture or subluxation within the lumbar spine. Focal sclerosis along the superior endplate of L2 without depression, likely chronic in etiology. Electronically Signed by Tram Negro MD 08/11/2019 11:24 A
[2019-08-11 11:41] LABS: ALBUMIN 2.9 GM/DL (3.2-5.2); BILIRUBIN,DIRECT 0.2 MG/DL (0.0-0.2); BILIRUBIN,TOTAL 0.4 MG/DL (0.2-1.0); CALCIUM LEVEL 8.2 MG/DL (8.5-10.1); CREATININE FOR GFR 1.12 MG/DL (0.55-1.30); GLOMERULAR FILTRATION RATE 54.6 (>51); PHENYTOIN (DILANTIN) 8.2 UG/ML (10.0-20.0); POTASSIUM SERUM 3.3 MEQ/L (3.5-5.1); TOTAL PROTEIN 6.2 GM/DL (6.4-8.2)
--- NOTE | 2019-08-11 12:01 | REP ---
CT ABDOMEN AND PELVIS WITHOUT IV OR ORAL CONTRAST: Renal stone protocol. HISTORY: Renal colic. Comparison CT study is from July 04, 2019. 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 The lung bases are clear. No pleural effusion is seen. There are is a granulomatous calcification of the left lower lobe. The liver and the spleen are normal in size homogeneous in texture. There is a small calcific gallstone in the dependent portion of the gallbladder. No pancreatic abnormality is observed. No adrenal abnormality is seen. There is mild bilateral hydronephrosis and hydroureter. The patient is status post cystectomy for neurogenic bladder and ileostomy urinary diversion. Right lower quadrant ileostomy is seen unchanged. The hydroureter and hydronephrosis are unchanged. No obstructive lesion is seen. There is a new finding however with streaking and fluid along Gerota's fascia and in the perinephric fat. This raises a question of pyelonephritis on the left. In the pelvis, previously identified cystic lesion in the right ovary is again seen unchanged measuring 4.9 cm in greatest anteroposterior dimension. There is mild diverticulosis of the sigmoid colon without CT evidence of diverticulitis. Normal appendix is visible. No abdominal wall defect is seen other than the right lower quadrant ileostomy. No bony destructive lesion. IMPRESSION: Streaky fat and fluid along Gerota's fascia and the perinephric fat around the left kidney consistent with pyelonephritis. There is mild stable bilateral hydronephrosis and hydroureter associated with urinary diversion right lower quadrant ileostomy. No urinary tract calculus. Normal appendix. Prior cystectomy. Cholelithiasis. Electronically Signed by Demario Villa MD 08/11/2019 12:20 P
[2019-08-11] MEDS ORDERED: ONDANSETRON 4MG/2ML VIAL (J2405) IV ONE (12:45)
[2019-08-11] MEDS ORDERED: MORP20SO PO (12:49)
[2019-08-11] MEDS ORDERED: MORP1SOL3 PO ×3 (12:49→13:00)
[2019-08-11] MEDS ORDERED: [UNRECOGNIZED DRUG - CODE] PO (12:49)
[2019-08-11] MEDS ORDERED: ARIP1TAB4 PO (12:49)
[2019-08-11] MEDS ORDERED: HYDR50TA70 PO (12:49)
[2019-08-11] MEDS ORDERED: PHEN100C PO (12:51)
[2019-08-11] MEDS ORDERED: XIFA200T2 PO (12:55)
[2019-08-11] MEDS ORDERED: PREG300C PO (12:55)
[2019-08-11] MEDS ORDERED: SENN-52 PO (12:55)
[2019-08-11] MEDS ORDERED: POTA10TA17 PO (12:55)
[2019-08-11] MEDS ORDERED: LACT10SO3 PO (13:00)
[2019-08-11] MEDS ORDERED: IPRA0.00 NEB (13:00)
[2019-08-11] MEDS ORDERED: FERR325T3 PO (13:00)
[2019-08-11] MEDS ORDERED: VITA500045 PO (13:25)
[2019-08-11] MEDS ORDERED: ALBUTEROL 90 MCG/ACT 8GM HFA INHALER INH PRN (13:45)
[2019-08-11] MEDS ORDERED: BISACODYL 10 MG SUPP PR PRN (13:45)
[2019-08-11] MEDS ORDERED: NYSTATIN CREAM 15 GM TOP PRN (13:45)
[2019-08-11] MEDS ORDERED: LACTULOSE 20 GM/30 ML SYRUP UD PO PRN (13:45)
[2019-08-11] MEDS ORDERED: ALBUTEROL SULFATE 2.5 MG/0.5 ML INH NEB SOLN NEB PRN (13:45)
[2019-08-11] MEDS ORDERED: IPRATROPIUM 0.5MG/ALBUTEROL 2.5MG INH SOL UD 3ML (DUONEB)(J7620) NEB PRN (14:00)
[2019-08-11] MEDS ORDERED: FLEETOIL PR (14:28)
[2019-08-11 15:15] VITALS: BP 100/65
--- NOTE | 2019-08-11 15:24 | HPEPDOC ---
[facility] Medical History & Physical Date of Admission Aug 11, 2019 Date of Service: Aug 11, 2019 Primary Care Physician: SUJIT MOMIN MD Attending Physician: Luis M Morales MD History and Physical PRIMARY CARE PROVIDER: Dr. Sujit Momin ATTENDING: Dr. Luis M Morales CHIEF COMPLAINT: Back pain HISTORY OF PRESENT ILLNESS: Patient is a 53 year old female presenting with [facility] complaint of low back and abdominal pain for the past 48-72 hours with associated chills and nausea. She initially thought the back pain would go away, but on waking this morning she directed her to take her to the hospital. She has a history of chronic pseudomonal infection, but after her last admission it was decided she should not be treated for it unless she became symptomatic. Workup in the emergency department showed perinephric stranding on CT and an elevated WBC and the hospitalist service was contacted for admission. PAST MEDICAL HISTORY: 1. Multiple sclerosis 2. Seizure disorder. 3. Neurogenic bladder and neurogenic bowel status post urostomy bag. 4. Hypertension. 5. Torticollis. 6. Pseudobulbar affect. 7. Paresthesias. 8. 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 9. herpes zoster secondary to immunosuppression. 10. Microcytic anemia. 11. B12 deficiency. 12. Vitamin D deficiency. 13. Migraines. 14. Obesity. 15. Gastroesophageal reflux disease (GERD) 16. Chronic pain. 17. Anxiety/depression. 18. Hepatic steatosis. PAST SURGICAL HISTORY: 1. Breast reduction surgery 2. bilateral wrist surgery 3. Bladder resection 4. Hysterectomy 5. Tubal ligation 6. Mohs surgery for basal cancer 7. Port placement 8. Left ulnar implant. SOCIAL HISTORY: Quit smoking 2 years ago (1-2 ppd), very rare alcohol use, occasional marijuana use. No other illicit drug use. Lives with . 3 children. FAMILY HISTORY: ALLERGIES: Please see below. REVIEW OF SYSTEMS: GENERAL: Denies fevers, recent unexpected weight change, night sweats, hemoptysis. Admits to chills. HEENT: Denies headache, dizziness, vision changes, hearing loss, sore throat CARDIOVASCULAR: Denies chest pain, palpitations, orthopnea RESPIRATORY: Denies shortness of breath, wheezing, cough GASTROINTESTINAL: denies vomiting, constipation, diarrhea, bloody stool. Admits to nausea and L sided abdominal pain GENITOURINARY: Denies dysuria,urinary urgency, hematuria. MUSCULOSKELETAL: Denies muscle/joint pain, weakness, stiffness NEUROLOGICAL: Denies any numbness/tingling, focal weakness, or syncope HOME MEDICATIONS: Please see below. PHYSICAL EXAMINATION: Vitals: (see below) General: No acute distress, laying comfortably in bed. HEENT: Normocephalic, atraumatic. EOMI. No scleral icterus. Moist mucous membranes. No pharyngeal erythema or uvular deviation. Neck: No JVD, lymphadenopathy, or thyromegaly. Cardiac: RRR, Normal S1 and S2, No murmurs, gallops, rubs. Pulm: Clear to auscultation b/l. Symmetric thorax. No wheezing, crackles, rhonchi Abd: Bowel Sounds diminished. Abdomen is soft, diffusely tender to palpation more so in the LUQ, mildly distended. No guarding, rebound tenderness, or rigidity. Urostomy in place in RLQ. No hepatosplenomegaly. No masses or eccymosis. Ext: No edema or cyanosis Neuro: No focal neuro deficits. LABORATORY DATA: See below. IMAGIN08/11/[address]: No acute fracture or subluxation within the lumbar spine. Focal sclerosis along the superior endplate of L2 without depression, likely chronic in etiology. 08/11/19 Abdomen/pelvis CT: Streaky fat and fluid along Gerota's fascia and the perinephric fat around the left kidney consistent with pyelonephritis. There is mild stable bilateral hydronephrosis and hydroureter associated with urinary diversion right lower quadrant ileostomy. No urinary tract calculus. Normal appendix. Prior cys tectomy. Cholelithiasis. MICROBIOLOGY: Please see below. ASSESSMENT/PLAN: #. Left-sided pyelonephritis - CT findings coupled with her symptomatology points toward symptomatic pyelonephritis/UTI which we will treat for with IV meropenem and wean down coverage as sensitivities from Urine culture indicate. The expressed concern over whether or not she could be on prophylactic medication to help suppress these infections. I am not sure whether or not this would help prevent her from getting recurrent UTI's. May reach out to infectious disease for their opinion on the matter. - Zofran is ordered for her nausea, her home pain meds were continued. patient is allergic to acetaminophen. - PT was ordered for evaluation. #. Renal Insufficiency - Likely secondary to patient's infection, giving maintenance fluids #. Anemia -Improved from prior admission, will continue to monitor. #. Multiple sclerosis -Continue with home medications #.Neurogenic bladder s/p urostomy - Continue with urostomy changes every 4 days #. Hypertension -Continue metoprolol #. Dyslipidemia -Continue atorvastatin #. History of herpes zoster -Continue acyclovir #. Hypothyroidism -Continue levothyroxine #. Depression -Continue klonopin, trazodone and Cymbalta #. Constipation -continue lactulose, dulcolax, mineral oil, and senokot #. GERD - Continue with PPI #. Chronic pain - Continue home medications -DVT prophy: heparin, Teds Vital Signs Vital Signs Date Time Temp Pulse Resp B/P (MAP) Pulse Ox O2 Delivery O2 Flow Rate FiO2 08/11/19 12:14 112 18 92 Room Air 08/11/19 10:45 114/72 (86) 08/11/19 10:07 98.1 Laboratory Data Labs 24H Laboratory Tests 2 08/11/19 10:54: Immature Granulocyte % (Auto) 0.8, White Blood Count 15.0H, Red Blood Count 4.06, Hemoglobin 10.7L, Hematocrit 33.2L, Mean Corpuscular Volume 81.8, Mean Corpuscular Hemoglobin 26.4L, Mean Corpuscular Hemoglobin Concent 32.2, Red Cell Distribution Width 19.8H, Platelet Count 286, Neutrophils (%) (Auto) 82.9H, Lymphocytes (%) (Auto) 3.8L, Monocytes (%) (Auto) 10.9H, Eosinophils (%) (Auto) 1.5, Basophils (%) (Auto) 0.1, Neutrophils # (Auto) 12.4H, Lymphocytes # (Auto) 0.6L, Monocytes # (Auto) 1.6H, Eosinophils # (Auto) 0.2, Basophils # (Auto) 0.0, Nucleated Red Blood Cells % (auto) 0.0, Anion Gap 10, Glomerular Filtration Rate 54.6, Calcium Level 8.2L, Aspartate Amino Transf (AST/SGOT) 10, Alanine Aminotransferase (ALT/SGPT) 20, Alkaline Phosphatase 244H, Total Bilirubin 0.4, Direct Bilirubin 0.2, Ammonia 22, Total Protein 6.2L, Albumin 2.9L, Albumin/Globulin Ratio 0.88L, Lipase 36L, Phenytoin (Dilantin) Level 8.2L CBC/BMP Laboratory Tests 08/11/19 10:54 Red Blood Count 4.06, Mean Corpuscular Volume 81.8, Mean Corpuscular Hemoglobin 26.4 L, Mean Corpuscular Hemoglobin Concent 32.2, Red Cell Distribution Width 19.8 H, Neutrophils (%) (Auto) 82.9 H, Lymphocytes (%) (Auto) 3.8 L, Monocytes (%) (Auto) 10.9 H, Eosinophils (%) (Auto) 1.5, Basophils (%) (Auto) 0.1, N eutrophils # (Auto) 12.4 H, Lymphocytes # (Auto) 0.6 L, Monocytes # (Auto) 1.6 H, Eosinophils # (Auto) 0.2, Basophils # (Auto) 0.0 Microbiology Microbiology 08/11/19 Blood Culture, Received Pending 08/11/19 Blood Culture, Received Pending 08/11/19 Urine Culture, Received Pending Home Medications Scheduled Acyclovir (Acyclovir) 400 Mg Tab, 400 MG PO BID Amantadine HCl (Amantadine) 100 Mg Tablet, 100 MG PO BID Aripiprazole (Aripiprazole) 2 Mg Tablet, 2 MG PO QHS Aspirin (Ecotrin) 81 Mg Tablet.dr, 81 MG PO QHS Atorvastatin Calcium (Atorvastatin Calcium) 40 Mg Tablet, 40 MG PO DAILY Baclofen (Baclofen) 20 Mg Tablet, 20 MG PO TID Clonazepam (Clonazepam) 1 Mg Tab, 1 MG PO BID Duloxetine Hcl (Duloxetine HCl) 60 Mg Capsule.dr, 60 MG PO BID Ergocalciferol (Vitamin D2) (Vitamin D2) 50,000 Unit Capsule, 50,000 UNIT PO 1XWK SUNDAYS Ferrous Sulfate (Ferrous Sulfate) 325 Mg Tablet.dr, 325 MG PO BID Hydroxyzine HCl (Hydroxyzine HCl) 50 Mg Tablet, 50 MG PO BID Levetiracetam (Keppra) 500 Mg Tablet, 500 MG PO BID Levothyroxine Sodium (Levothyroxine Sodium) 50 Mcg Tablet, 50 MCG PO QAM 30 MINUTES BEFORE BREAKFAST Meloxicam (Meloxicam) 15 Mg Tablet, 15 MG PO DAILY Metoprolol Succinate (Metoprolol Succinate) 25 Mg Tab, 25 MG PO DAILY Omeprazole (Omeprazole) 40 Mg Cap, 40 MG PO BID Phenytoin Sodium Extended (Phenytoin Sodium Extended) 100 Mg Capsule, 400 MG PO QHS Potassium Chloride (Potassium Chloride) 10 Meq Tab.er.prt, 10 MEQ PO DAILY Pregabalin (Pregabalin) 300 Mg Capsule, 300 MG PO BID Rifaximin (Xifaxan) 200 Mg Tablet, 400 MG PO BID Sennosides/Docusate Sodium (Senna Plus Tablet) 1 Each Tablet, 2 TAB PO BID Trazodone HCl (Trazodone HCl) 150 Mg Tablet, 150 MG PO QHS Scheduled PRN Albuterol Sulfate (Ventolin Hfa) 108 Mcg/Act Aer, 2 PUFFS INH Q4H PRN for SHORTNESS OF BREATH Albuterol Sulfate (Albuterol Sulfate) 2.5 Mg/0.5 Ml Vial.neb, 2.5 MG NEB Q2HP PRN for SOB/WHEEZING Bisacodyl (Bisacodyl) 10 Mg Sup, 10 MG TN DAILY PRN for CONSTIPATION Ipratropium/Albuterol Sulfate (Iprat-Albut 0.5-3(2.5) mg/3 ml) 3 Ml Ampul.neb, 1 VIAL NEB Q6H PRN for SOB/WHEEZING Lactulose (Lactulose) 10 Gm/15 Ml Solution, 30 ML PO TID PRN for CONSTIPATION Mineral Oil (Mineral Oil Enema) 133 Ml Enema, 1 EA TN Q2D PRN for CONSTIPATION USED WHEN NO BM WITHIN 2 DAYS Morphine Sulfate (Morphine Sulfate) 10 Mg/5 Ml Solution, 2 MG PO Q6H PRN for SEVERE PAIN (PS 8-10) Morphine Sulfate (Morphine Sulfate) 10 Mg/5 Ml Solution, 2.5 ML PO Q4H PRN for MODERATE PAIN (PS 5-7) Nystatin (Nystatin) 15 Gm Cream..g., 1 DOSE TOP DAILY PRN for RASH APPLIES TO UROSTOMY Allergies Coded Allergies: Cephalosporins (Verified Allergy, Intermediate, rash, 08/11/19) Sulfa (Sulfonamide Antibiotics) (Verified Allergy, Mild, itchy, 04/27/19) oxycodone (Verified Allergy, Mild, itchy, 04/27/19) hydrocodone (Verified Adverse Reaction, Intermediate, chest pain, 04/27/19) acetaminophen (Verified Adverse Reaction, Mild, NAUSEA, 5/30/19) A-FIB/CHADSVASC A-FIB History Current/History of A-Fib/PAF?: No GME ATTESTATION GME ATTESTATION My faculty preceptor for this patient encounter was physically present during the encounter and was fully available. All aspects of the patient interview, examination, medical decision making process, and medical care plan development were reviewed and approved by the faculty preceptor. The faculty preceptor is aware and concurs with the plan as stated in the body of this note and will attest to such by his/her cosignature. ELICEO MÁRQUEZ DO Aug 11, 2019 15:24
[2019-08-11] MEDS: METOPROLOL SUCC *XL* 25MG TAB (TopROL *XL*) PO SCH (15:58)
[2019-08-11] MEDS: BACLOFEN 10 MG TAB PO SCH ×2 (15:58→21:03)
[2019-08-11] MEDS: ATORVASTATIN 20 MG TAB PO SCH (15:58)
[2019-08-11] MEDS: MEROPENEM INJ 1 GM in APPROPRIATE DILUENT 1 EA IV SCH ×2 (15:59→23:19)
[2019-08-11] MEDS: NS 1,000 ML IV SCH (15:59)
[2019-08-11] MEDS: POTASSIUM CHLORIDE 10 MEQ SR TABLET PO SCH (15:59)
[2019-08-11] MEDS: MORPHINE SULFATE ORAL SOLN 10 MG/5 ML UD PO PRN (16:04)
[2019-08-11] MEDS ORDERED: POTASSIUM CHLORIDE 10 MEQ SR TABLET PO ONE (16:15)
--- NOTE | 2019-08-11 17:15 | HPE ---
DATE OF ADMISSION: 08/11/2019 ADDENDUM to admission history and physical by Clay Bernstein DO. Elise Yang was seen in the emergency room together with Dr. Clay Bernstein. I directly supervised her care, saw the patient in the emergency room and discussed the case with her . Dr. Bernstein and I had discussions concerning patient's recurrent pseudomonas infection versus colonization, difficulties distinguishing between these two, and the fact that with left hydronephrosis suggested on CT scan that antibiotic therapy is warranted. Antibiotic choice was complicated based upon resistance and drug allergies, but I agreed with his choice of meropenem as antibiotic.
[2019-08-11 20:00] VITALS: BP 100/69
[2019-08-11] MEDS: HEPARIN SOD (PORCINE) 5000 UNITS/ML VIAL SQ SCH (21:02)
[2019-08-11] MEDS: levETIRAcetam 250MG TABLET (KEPPRA) PO SCH (21:02)
[2019-08-11] MEDS: OMEPRAZOLE 20 MG CAP PO SCH (21:02)
[2019-08-11] MEDS: clonazePAM 1 MG TAB PO SCH (21:03)
[2019-08-11] MEDS: PREGABALIN 100 MG CAP (LYRICA) PO SCH (21:03)
[2019-08-11] MEDS: hydrOXYzine 50 MG TAB PO SCH (21:03)
[2019-08-11] MEDS: SENNA 8.6 MG TAB (SENOKOT) PO SCH (21:03)
[2019-08-11] MEDS: PHENYTOIN ER 100 MG CAP PO SCH (21:03)
[2019-08-11] MEDS: AMANTADINE 100 MG CAP PO SCH (21:04)
[2019-08-11] MEDS: DULoxetine 30 MG CAP (CYMBALTA) PO SCH (21:04)
[2019-08-11] MEDS: ACYCLOVIR 200 MG CAPSULE PO SCH (21:04)
[2019-08-11] MEDS: ASPIRIN 81 MG ENTERIC TAB PO SCH (21:04)
[2019-08-11] MEDS: traZODone 50 MG TAB PO SCH (21:04)
[2019-08-11] MEDS: FERROUS SULFATE 325MG TAB PO SCH (21:04)
[2019-08-11] MEDS: ARIPiprazole 2 MG TAB PO SCH (21:04)
[2019-08-12 04:00] VITALS: BP 98/64
[2019-08-12] MEDS: NS 1,000 ML IV SCH (05:41)
[2019-08-12] MEDS: LEVOTHYROXINE 50MCG TABLET (0.05MG) PO SCH (05:42)
[2019-08-12] MEDS: HEPARIN SOD (PORCINE) 5000 UNITS/ML VIAL SQ SCH ×3 (05:42→21:40)
[2019-08-12] MEDS: MORPHINE SULFATE ORAL SOLN 10 MG/5 ML UD PO PRN ×3 (05:42→14:50)
[2019-08-12] MEDS: MEROPENEM INJ 1 GM in APPROPRIATE DILUENT 1 EA IV SCH ×3 (06:04→23:23)
[2019-08-12 06:31] LABS: HEMATOCRIT 28.5 % (36.0-47.0); HEMOGLOBIN 9.1 g/dl (12.0-15.5); MEAN CORPUSCULAR HEMOGLOBIN 26.4 pg (27.0-33.0); MEAN CORPUSCULAR HGB CONC 31.9 g/dl (32.0-36.5); MEAN CORPUSCULAR VOLUME 82.6 fl (80.0-96.0); PLATELET COUNT, AUTOMATED 221 10^3/uL (150-450); RED BLOOD COUNT 3.45 10^6/uL (4.00-5.40); WHITE BLOOD COUNT 9.6 10^3/uL (4.0-10.0)
[2019-08-12 06:45] LABS: CALCIUM LEVEL 8.9 MG/DL (8.5-10.1); CREATININE FOR GFR 1.28 MG/DL (0.55-1.30); GLOMERULAR FILTRATION RATE 46.8 (>51); POTASSIUM SERUM 3.6 MEQ/L (3.5-5.1)
[2019-08-12] MEDS: FERROUS SULFATE 325MG TAB PO SCH ×2 (08:13→21:38)
[2019-08-12] MEDS: PREGABALIN 100 MG CAP (LYRICA) PO SCH ×2 (08:13→21:37)
[2019-08-12] MEDS: ACYCLOVIR 200 MG CAPSULE PO SCH ×2 (08:14→21:39)
[2019-08-12] MEDS: SENNA 8.6 MG TAB (SENOKOT) PO SCH ×2 (08:14→21:38)
[2019-08-12] MEDS: OMEPRAZOLE 20 MG CAP PO SCH ×2 (08:14→21:39)
[2019-08-12] MEDS: BACLOFEN 10 MG TAB PO SCH ×3 (08:14→21:40)
[2019-08-12] MEDS: clonazePAM 1 MG TAB PO SCH ×2 (08:14→21:39)
[2019-08-12] MEDS: DULoxetine 30 MG CAP (CYMBALTA) PO SCH ×2 (08:14→21:40)
[2019-08-12] MEDS: levETIRAcetam 250MG TABLET (KEPPRA) PO SCH ×2 (08:15→21:37)
[2019-08-12] MEDS: AMANTADINE 100 MG CAP PO SCH ×2 (08:15→21:38)
[2019-08-12] MEDS: ONDANSETRON 4 MG ORAL DISINTEGRATING TAB (Q0162 PER 1MG) PO PRN ×2 (08:15→20:44)
[2019-08-12] MEDS: POTASSIUM CHLORIDE 10 MEQ SR TABLET PO SCH (08:15)
[2019-08-12] MEDS: hydrOXYzine 50 MG TAB PO SCH ×2 (08:15→21:37)
[2019-08-12] MEDS: METOPROLOL SUCC *XL* 25MG TAB (TopROL *XL*) PO SCH (08:16)
[2019-08-12] MEDS: ATORVASTATIN 20 MG TAB PO SCH (08:16)
[2019-08-12] MEDS ORDERED: ENOXAPARIN 40 MG/0.4 ML SYRINGE (J1650) SC SCH (09:00)
[2019-08-12] MEDS: KCL 20MEQ IN 0.45NS 1000ML 1,000 ML IV SCH ×2 (10:20→19:00)
--- NOTE | 2019-08-12 13:30 | IPN ---
DATE: 08/12/2019 Elise is seen on [address], admitted with pyelonephritis, suspected Pseudomonas urinary tract infection (UTI). She still has a lot of abdominal pain and flank pain and does not feel much better than yesterday. PHYSICAL EXAM: Maximum temperature (T max) 101.4, systolic pressure around 100. General Appearance: She looks mildly ill, lying in bed. Lungs: Clear. Heart: Regular rhythm. Heart rate was around 90. Abdomen: Soft, diffusely mildly tender. Lungs: Clear. No peripheral edema. LABS: White count is down to 9.6. Electrolytes unremarkable. IMPRESSION: 1. Suspected left pyelonephritis. Continue her meropenem based on previous sensitivities of Pseudomonas. 2. Multiple sclerosis (MS). Continue current medications. 3. Hyperlipidemia. Continue dose of atorvastatin. 4. Depression/severe psychiatric problems. Continue her psychotropic medications. 5. Seizure disorder. Continue anticonvulsant therapy. 6. Hypothyroidism. Continue current dose of levothyroxine. 7. Hyperammonemia. In the past, she has had mental status problems related to her ammonia becoming elevated. It was normal on admission at 22.
[2019-08-12 14:00] VITALS: BP 99/61
[2019-08-12] MEDS: traZODone 50 MG TAB PO SCH (21:37)
[2019-08-12] MEDS: ARIPiprazole 2 MG TAB PO SCH (21:38)
[2019-08-12] MEDS: ASPIRIN 81 MG ENTERIC TAB PO SCH (21:39)
[2019-08-12] MEDS: PHENYTOIN ER 100 MG CAP PO SCH (21:39)
[2019-08-12 22:00] VITALS: BP 97/61
[2019-08-13 06:00] VITALS: BP 93/58
[2019-08-13 06:11] LABS: HEMATOCRIT 26.8 % (36.0-47.0); HEMOGLOBIN 8.6 g/dl (12.0-15.5); MEAN CORPUSCULAR HEMOGLOBIN 26.6 pg (27.0-33.0); MEAN CORPUSCULAR HGB CONC 32.1 g/dl (32.0-36.5); PLATELET COUNT, AUTOMATED 193 10^3/uL (150-450); RED BLOOD COUNT 3.23 10^6/uL (4.00-5.40); WHITE BLOOD COUNT 6.2 10^3/uL (4.0-10.0)
[2019-08-13] MEDS: MEROPENEM INJ 1 GM in APPROPRIATE DILUENT 1 EA IV SCH ×3 (06:15→22:48)
[2019-08-13] MEDS: LEVOTHYROXINE 50MCG TABLET (0.05MG) PO SCH (06:15)
[2019-08-13] MEDS: HEPARIN SOD (PORCINE) 5000 UNITS/ML VIAL SQ SCH ×3 (06:16→22:48)
[2019-08-13 06:29] LABS: CALCIUM LEVEL 9.1 MG/DL (8.5-10.1); CREATININE FOR GFR 1.13 MG/DL (0.55-1.30); POTASSIUM SERUM 4.1 MEQ/L (3.5-5.1)
[2019-08-13] MEDS: KCL 20MEQ IN 0.45NS 1000ML 1,000 ML IV SCH ×2 (06:53→14:36)
[2019-08-13] MEDS: ONDANSETRON 4 MG ORAL DISINTEGRATING TAB (Q0162 PER 1MG) PO PRN ×3 (08:35→22:49)
[2019-08-13] MEDS: MORPHINE SULFATE ORAL SOLN 10 MG/5 ML UD PO PRN ×3 (08:35→22:48)
[2019-08-13] MEDS: levETIRAcetam 250MG TABLET (KEPPRA) PO SCH ×2 (08:36→22:52)
[2019-08-13] MEDS: ACYCLOVIR 200 MG CAPSULE PO SCH ×2 (08:36→22:50)
[2019-08-13] MEDS: SENNA 8.6 MG TAB (SENOKOT) PO SCH ×2 (08:36→22:51)
[2019-08-13] MEDS: AMANTADINE 100 MG CAP PO SCH ×2 (08:37→22:50)
[2019-08-13] MEDS: hydrOXYzine 50 MG TAB PO SCH ×2 (08:37→22:50)
[2019-08-13] MEDS: OMEPRAZOLE 20 MG CAP PO SCH ×2 (08:37→22:52)
[2019-08-13] MEDS: PREGABALIN 100 MG CAP (LYRICA) PO SCH ×2 (08:37→22:52)
[2019-08-13] MEDS: ATORVASTATIN 20 MG TAB PO SCH (08:37)
[2019-08-13] MEDS: clonazePAM 1 MG TAB PO SCH ×2 (08:37→22:50)
[2019-08-13] MEDS: FERROUS SULFATE 325MG TAB PO SCH ×2 (08:38→22:50)
[2019-08-13] MEDS: POTASSIUM CHLORIDE 10 MEQ SR TABLET PO SCH (08:38)
[2019-08-13] MEDS: METOPROLOL SUCC *XL* 25MG TAB (TopROL *XL*) PO SCH (08:38)
[2019-08-13] MEDS: BACLOFEN 10 MG TAB PO SCH ×3 (08:38→22:52)
[2019-08-13] MEDS: DULoxetine 30 MG CAP (CYMBALTA) PO SCH ×2 (08:38→22:51)
[2019-08-13] MEDS ORDERED: FLEET OIL RETENTION ENEMA PR PRN (09:00)
[2019-08-13 15:54] VITALS: BP 90/69
[2019-08-13 21:04] VITALS: BP 93/68
--- NOTE | 2019-08-13 21:27 | IPNPDOC ---
Text Note Date of Service The patient was seen on 08/13/19. NOTE Subjective: Uncomfortable, hurts everywhere currently. Requesting if we could defer the PT to when her antibiotics kick in because she is too sore. Requesting to see Dr. Lobato Objective: Vitals: (see below) General: No acute distress, ill appearing however, sun glasses on in a dim room, laying in bed. HEENT: Normocephalic, atraumatic. EOMI. Moist mucous membranes. Neck: No JVD, lymphadenopathy, or thyromegaly. Cardiac: RRR, Normal S1 and S2, No murmurs, gallops, rubs. Pulm: CTAB, wheezing, crackles, rhonchi Abd: Normoactive bowel sounds, soft, diffusely tender to palpation, obese. No guarding, rebound tenderness, or rigidity. Urostomy in place in RLQ. No hepatosplenomegaly. Ext: No edema, WWP Neuro: No focal neuro deficits noted LABORATORY DATA: See below. IMAGIN08/11/[address]: No acute fracture or subluxation within the lumbar spine. Focal sclerosis along the superior endplate of L2 without depression, likely chronic in etiology. 08/11/19 Abdomen/pelvis CT: Streaky fat and fluid along Gerota's fascia and the perinephric fat around the left kidney consistent with pyelonephritis. There is mild stable bilateral hydronephrosis and hydroureter associated with urinary diversion right lower quadrant ileostomy. No urinary tract calculus. Normal appendix. Prior cystectomy. Cholelithiasis. MICROBIOLOGY: Please see below. ASSESSMENT/PLAN: #. Left-sided pyelonephritis - CT findings coupled with her symptoms c/w pyelonephritis/UTI: -continue IV meropenem -The expressed concern over whether or not she could be on prophylactic medication to help suppress these infections and wants to talk to Dr. Lobato - Will consult ID - Augustina PRN for nausea, her home pain meds were continued. #. Renal Insufficiency - Likely secondary to patient's infection, s/p fluids, improving #. Anemia -Improved from prior admission, will continue to monitor #. Multiple sclerosis -Continue with home medications #.Neurogenic bladder s/p urostomy - Continue with urostomy changes every 4 days #. Hypertension -Continue metoprolol #. Dyslipidemia -Continue atorvastatin #. History of herpes zoster -Continue acyclovir #. Hypothyroidism -Continue levothyroxine #. Depression -Continue klonopin, trazodone and Cymbalta #. Constipation -continue lactulose, dulcolax, mineral oil, and senokot #. GERD - Continue with PPI #. Chronic pain - Continue home medications -DVT prophy: heparin, Teds VS,Fishbone, I+O VS, Fishbone, I+O Laboratory Tests 08/13/19 05:35 Red Blood Count 3.23 L, Mean Corpuscular Volume 83.0, Mean Corpuscular Hemoglobin 26.6 L, Mean Corpuscular Hemoglobin Concent 32.1, Red Cell Distribution Width 19.3 H, Calcium Level 9.1 Vital Signs Date Time Temp Pulse Resp B/P (MAP) Pulse Ox O2 Delivery O2 Flow Rate FiO2 08/13/19 15:54 98.4 89 19 90/69 (76) 90 08/11/19 14:14 Room Air I&O- Last 24 Hours up to 6 AM 08/13/19 06:00 Intake Total 5510 ml Output Total 1975 ml Balance 3535 ml SANA HERNANDEZ MD Aug 13, 2019 21:27
[2019-08-13] MEDS: PHENYTOIN ER 100 MG CAP PO SCH (22:51)
[2019-08-13] MEDS: traZODone 50 MG TAB PO SCH (22:51)
[2019-08-13] MEDS: ASPIRIN 81 MG ENTERIC TAB PO SCH (22:51)
[2019-08-13] MEDS: ARIPiprazole 2 MG TAB PO SCH (22:52)
[2019-08-14] MEDS: KCL 20MEQ IN 0.45NS 1000ML 1,000 ML IV SCH ×3 (03:12→21:00)
[2019-08-14 05:55] LABS: HEMOGLOBIN 9.3 g/dl (12.0-15.5); MEAN CORPUSCULAR HEMOGLOBIN 27.1 pg (27.0-33.0); MEAN CORPUSCULAR HGB CONC 32.1 g/dl (32.0-36.5); MEAN CORPUSCULAR VOLUME 84.5 fl (80.0-96.0); PLATELET COUNT, AUTOMATED 239 10^3/uL (150-450); RED BLOOD COUNT 3.43 10^6/uL (4.00-5.40); WHITE BLOOD COUNT 6.3 10^3/uL (4.0-10.0)
[2019-08-14 05:57] VITALS: BP 96/69
[2019-08-14] MEDS: HEPARIN SOD (PORCINE) 5000 UNITS/ML VIAL SQ SCH ×3 (06:09→21:02)
[2019-08-14] MEDS: MEROPENEM INJ 1 GM in APPROPRIATE DILUENT 1 EA IV SCH ×3 (06:09→23:48)
[2019-08-14] MEDS: LEVOTHYROXINE 50MCG TABLET (0.05MG) PO SCH (06:09)
[2019-08-14 06:21] LABS: CALCIUM LEVEL 9.1 MG/DL (8.5-10.1); CREATININE FOR GFR 1.05 MG/DL (0.55-1.30); GLOMERULAR FILTRATION RATE 58.8 (>51); POTASSIUM SERUM 4.4 MEQ/L (3.5-5.1)
[2019-08-14] MEDS: PREGABALIN 100 MG CAP (LYRICA) PO SCH ×2 (10:15→21:00)
[2019-08-14] MEDS: OMEPRAZOLE 20 MG CAP PO SCH ×2 (10:15→21:00)
[2019-08-14] MEDS: levETIRAcetam 250MG TABLET (KEPPRA) PO SCH ×2 (10:15→21:01)
[2019-08-14] MEDS: clonazePAM 1 MG TAB PO SCH ×2 (10:15→21:01)
[2019-08-14] MEDS: BACLOFEN 10 MG TAB PO SCH ×3 (10:16→21:01)
[2019-08-14] MEDS: hydrOXYzine 50 MG TAB PO SCH ×2 (10:16→21:00)
[2019-08-14] MEDS: SENNA 8.6 MG TAB (SENOKOT) PO SCH ×2 (10:16→21:01)
[2019-08-14] MEDS: FERROUS SULFATE 325MG TAB PO SCH ×2 (10:16→21:00)
[2019-08-14] MEDS: ATORVASTATIN 20 MG TAB PO SCH (10:16)
[2019-08-14] MEDS: POTASSIUM CHLORIDE 10 MEQ SR TABLET PO SCH (10:16)
[2019-08-14] MEDS: AMANTADINE 100 MG CAP PO SCH ×2 (10:16→21:01)
[2019-08-14] MEDS: DULoxetine 30 MG CAP (CYMBALTA) PO SCH ×2 (10:17→21:01)
[2019-08-14] MEDS: ACYCLOVIR 200 MG CAPSULE PO SCH ×2 (10:17→21:01)
[2019-08-14] MEDS: MORPHINE SULFATE ORAL SOLN 10 MG/5 ML UD PO PRN ×2 (10:20→16:26)
[2019-08-14] MEDS: METOPROLOL SUCC *XL* 25MG TAB (TopROL *XL*) PO SCH (10:33)
[2019-08-14] MEDS ORDERED: CALCIUM CARBONATE 500 MG CHEW U/D PO PRN (11:15)
[2019-08-14] MEDS: SUCRALFATE SUSP 1GM/10ML UD PO SCH (16:25)
--- NOTE | 2019-08-14 18:21 | IPNPDOC ---
Text Note Date of Service The patient was seen on 08/14/19. NOTE Subjective: Better today. However still achy diffusely. Asked if Dr. Luis Alfredo harrington be seeing her today Objective: Vitals: (see below) General: No acute distress, ill appearing however, sun glasses on in a dim room, laying in bed. HEENT: Normocephalic, atraumatic. EOMI. Moist mucous membranes. Neck: No JVD, lymphadenopathy, or thyromegaly. Cardiac: RRR, Normal S1 and S2, No murmurs, gallops, rubs. Pulm: CTAB, wheezing, crackles, rhonchi Abd: Normoactive bowel sounds, soft, diffusely tender to palpation, obese. No guarding, rebound tenderness, or rigidity. Urostomy in place in RLQ. No hepatosplenomegaly. Ext: No edema, WWP Neuro: No focal neuro deficits noted LABORATORY DATA: See below. IMAGIN08/11/[address]: No acute fracture or subluxation within the lumbar spine. Focal sclerosis along the superior endplate of L2 without depression, likely chronic in etiology. 08/11/19 Abdomen/pelvis CT: Streaky fat and fluid along Gerota's fascia and the perinephric fat around the left kidney consistent with pyelonephritis. There is mild stable bilateral hydr onephrosis and hydroureter associated with urinary diversion right lower quadrant ileostomy. No urinary tract calculus. Normal appendix. Prior cystectomy. Cholelithiasis. MICROBIOLOGY: Please see below. ASSESSMENT/PLAN: #. Left-sided pyelonephritis: CT findings coupled with her symptoms c/w pyel onephritis/UTI: -continue IV meropenem -ID consulted, appreciate recs as patient's spouse is concerned about recurrence of her UTIs. - Zofran PRN for nausea, her home pain meds were continued. #. Renal Insufficiency - in the setting of infection, resolving #. Anemia -Improved from prior admission, will continue to monitor #. Multiple sclerosis -Continue with home medications #.Neurogenic bladder s/p urostomy - Continue with urostomy changes every 4 days #. Hypertension -Continue metoprolol #. Dyslipidemia -Continue atorvastatin #. History of herpes zoster -Continue acyclovir #. Hypothyroidism -Continue levothyroxine #. Depression -Continue klonopin, trazodone and Cymbalta #. Constipation -continue lactulose, dulcolax, mineral oil, and senokot #. GERD - Continue with PPI #. Chronic pain - Continue home medications -DVT prophy: heparin, Teds Dispo: pending clinical improvement VS,Fishbone, I+O VS, Fishbone, I+O Laboratory Tests 08/14/19 05:24 Red Blood Count 3.43 L, Mean Corpuscular Volume 84.5, Mean Corpuscular Hemoglobin 27.1, Mean Corpuscular Hemoglobin Concent 32.1, Red Cell Distribution Width 18.9 H, Calcium Level 9.1 Vital Signs Date Time Temp Pulse Resp B/P (MAP) Pulse Ox O2 Delivery O2 Flow Rate FiO2 08/14/19 16:26 18 08/14/19 10:33 85 96/69 08/14/19 05:57 98.1 94 08/11/19 14:14 Room Air I&O- Last 24 Hours up to 6 AM 08/14/19 06:00 Intake Total 3250 ml Output Total 3650 ml Balance -400 ml SANA HERNANDEZ MD Aug 14, 2019 18:21
[2019-08-14 20:50] VITALS: BP 96/70
[2019-08-14] MEDS: PHENYTOIN ER 100 MG CAP PO SCH (21:00)
[2019-08-14] MEDS: ASPIRIN 81 MG ENTERIC TAB PO SCH (21:01)
[2019-08-14] MEDS: ARIPiprazole 2 MG TAB PO SCH (21:01)
[2019-08-14] MEDS: traZODone 50 MG TAB PO SCH (21:01)
[2019-08-15 06:00] VITALS: BP 100/73
[2019-08-15] MEDS: MEROPENEM INJ 1 GM in APPROPRIATE DILUENT 1 EA IV SCH ×3 (06:20→22:12)
[2019-08-15] MEDS: KCL 20MEQ IN 0.45NS 1000ML 1,000 ML IV SCH ×3 (06:20→22:13)
[2019-08-15] MEDS: LEVOTHYROXINE 50MCG TABLET (0.05MG) PO SCH (06:20)
[2019-08-15] MEDS: HEPARIN SOD (PORCINE) 5000 UNITS/ML VIAL SQ SCH ×3 (06:20→22:10)
[2019-08-15 06:33] LABS: HEMATOCRIT 26.8 % (36.0-47.0); HEMOGLOBIN 8.5 g/dl (12.0-15.5); MEAN CORPUSCULAR HGB CONC 31.7 g/dl (32.0-36.5); MEAN CORPUSCULAR VOLUME 85.1 fl (80.0-96.0); PLATELET COUNT, AUTOMATED 250 10^3/uL (150-450); RED BLOOD COUNT 3.15 10^6/uL (4.00-5.40); WHITE BLOOD COUNT 4.4 10^3/uL (4.0-10.0)
[2019-08-15 06:52] LABS: CALCIUM LEVEL 9.3 MG/DL (8.5-10.1); CREATININE FOR GFR 1.09 MG/DL (0.55-1.30); GLOMERULAR FILTRATION RATE 56.3 (>51); POTASSIUM SERUM 4.3 MEQ/L (3.5-5.1)
[2019-08-15] MEDS: SUCRALFATE SUSP 1GM/10ML UD PO SCH ×4 (08:46→22:08)
[2019-08-15] MEDS: hydrOXYzine 50 MG TAB PO SCH ×2 (08:46→22:10)
[2019-08-15] MEDS: FERROUS SULFATE 325MG TAB PO SCH ×2 (08:47→22:10)
[2019-08-15] MEDS: OMEPRAZOLE 20 MG CAP PO SCH (08:47)
[2019-08-15] MEDS: SENNA 8.6 MG TAB (SENOKOT) PO SCH ×2 (08:47→22:09)
[2019-08-15] MEDS: ACYCLOVIR 200 MG CAPSULE PO SCH ×2 (08:47→22:08)
[2019-08-15] MEDS: PREGABALIN 100 MG CAP (LYRICA) PO SCH ×2 (08:47→22:09)
[2019-08-15] MEDS: METOPROLOL SUCC *XL* 25MG TAB (TopROL *XL*) PO SCH (08:47)
[2019-08-15] MEDS: ATORVASTATIN 20 MG TAB PO SCH (08:47)
[2019-08-15] MEDS: AMANTADINE 100 MG CAP PO SCH ×2 (08:47→22:10)
[2019-08-15] MEDS: DULoxetine 30 MG CAP (CYMBALTA) PO SCH ×2 (08:47→22:10)
[2019-08-15] MEDS: levETIRAcetam 250MG TABLET (KEPPRA) PO SCH ×2 (08:47→22:10)
[2019-08-15] MEDS: clonazePAM 1 MG TAB PO SCH ×2 (08:47→22:09)
[2019-08-15] MEDS: LACTULOSE 20 GM/30 ML SYRUP UD PO SCH (08:47)
[2019-08-15] MEDS: POTASSIUM CHLORIDE 10 MEQ SR TABLET PO SCH (08:47)
[2019-08-15] MEDS: BACLOFEN 10 MG TAB PO SCH ×3 (08:47→22:11)
[2019-08-15] MEDS: MORPHINE SULFATE ORAL SOLN 10 MG/5 ML UD PO PRN ×2 (08:48→22:12)
--- NOTE | 2019-08-15 08:55 | CR ---
DATE OF CONSULTATION: 08/14/2019 I was asked to consult by my hospitalist for evaluation of recurrent urinary tract infection in a patient with multiple sclerosis. HISTORY OF PRESENT ILLNESS: Ms. Yang is a pleasant 53-year-old female with advanced multiple sclerosis who was seen by myself previously in consultation for a recurrent Pseudomonas bacteremia and bacteruria. The patient was admitted to us on August 11 with complaints of low back pain worsening over the past couple days prior to admission. This was associated with nausea and chills. She came to the emergency room a urine culture was obtained and her room was positive for Pseudomonas as well as Enterococcus faecalis. There was some perinephric stranding and mild hydronephrosis bilaterally. The patient was started on IV meropenem without much improvement in her symptoms. She complains of cramping both in the flank area and abdomen as well as epigastric pain, difficulty swallowing, especially her soda. She has a history of reflux never had an endoscopy. PAST MEDICAL HISTORY: Multiple sclerosis, seizure disorder, neurogenic bladder status-post diversion, urostomy in origin and the bladder status post diversion urostomy hypertension, hypothermia secondary to oxcarbazepine, history of herpes zoster vitamin D deficiency. Vitamin B12 efficiency reflux, anxiety, depression and fatty liver, elevated ammonia, dilantin level 8.2. PAST SURGICAL HISTORY: Bilateral breast reduction surgery wrist surgery. A bladder resection, hysterectomy, surgery for basal cancer and Infusaport placement right chest. SOCIAL HISTORY: She quit smoking 2 years ago for social alcohol use occasional marijuana use. She is , lives with her . ALLERGIES: Cephalosporin, sulfa, oxycodone, hydrocodone, Tylenol. MEDICATIONS: lactulose 30 mg by mouth daily, Tums 500 twice a day as needed, mineral oil 1 tablet by mouth every 4 hours as needed, levothyroxine 50 mcg daily heparin subcu 5000 units every 8 hours, acyclovir 400 mg by mouth twice a day, Abilify 2 mg by mouth at bedtime, aspirin 81 mg at bedtime, Klonopin 1 mg twice a day, Duloxetine 60 mg twice a day, ferrous sulfate 325 mg twice a day, Keppra 500 mg twice a day, Dilantin 400 mg at bedtime, rifaximin 400 mg by mouth twice a day, trazodone 150 mg by mouth at bedtime, hydroxyzine 50 mg by mouth twice a day, omeprazole 40 mg twice a day, Lyrica 300 mg by mouth twice a day, Senokot 2 tablets by mouth twice a day, baclofen 20 mg by mouth three times a day, meropenem 1 gram IV every 8 hours. PHYSICAL EXAMINATION: She is a depressed looking female in no acute distress. She is chronically ill looking. Heart: Normal S1-S2. No murmurs. Abdomen: Soft, tender in the epigastric area. Bowel sounds normal slightly distended, bilateral CVA tenderness. Lungs are clear. No wheezes, rales or rhonchi. Extremities: Trace edema bilateral test to on the right leg. Neurologic: Exam was not done. The patient uncomfortable. She has a torticollis with head twisted towards the left side. Alert and oriented times three but sluggish with a depressed affect. LABORATORY DATA: White count on admission was 15 today was 6.3, hemoglobin 9.3, hematocrit 29, platelets 239. Sodium 139, potassium 4.4, chloride 107, bicarb 24, BUN 13, creatinine 1.05, glucose 102, calcium 9.1, ammonia 22. Urine culture had Pseudomonas aeruginosa and E faecalis from the urostomy bag more than 100,000, both pathogens Pseudomonas is resistant to levofloxacin Enterococcus is resistant to doxycycline erythromycin. IMPRESSION: This is a 53-year-old female admitted with low back pain, leukocytosis nausea and who was found on CT scan to have left kidney consistent with pyelonephritis with perinephric fat stranding and mild bilateral hydronephrosis. White count has improved but clinically the patient does not feel better. She is currently on IV meropenem which is appropriate for both pathogens. Her abdominal pain does not seem to be related to her urinary symptoms at this time but there is seems more of an upper pathology. She complains of dysphagia, difficulty with liquids when she is drinking her soda she has epigastric pain in spite of being on omeprazole twice a day. She also has not been taking her lactulose that she is supposed to take it for elevated ammonia. PLAN: Resume lactulose once daily. Consult gastroenterology if epigastric pain does not resolve. I have added Carafate 1 gram suspension three times a day to help with reflux symptoms. The patient will need at least outpatient endoscopy. Continue IV meropenem for total of 10 days if the patient is ready for discharge this could be given to her [id number] as an outpatient but I do not suspect the patient will be discharged within 10 days with her severe MS. As far as recurrent urinary tract infection, there is no great dropped to decrease the number of UTIs other than fosfomycin which came prevent Enterococcus faecalis recurrent UTI, but does not have great coverage for Pseudomonas, but that could be attempted fosfomycin 3 grams once a week to help decrease number acute urinary tract infection.
[2019-08-15] MEDS ORDERED: GI COCKTAIL 50ML BTL(HYOSCYAMINE/MAALOX/LIDOCAINE VISCOUS)(1:3:1) PO PRN (10:45)
[2019-08-15] MEDS ORDERED: ONDANSETRON 4MG/2ML VIAL (J2405) IV ONE (11:00)
[2019-08-15] MEDS ORDERED: PROMETHAZINE INJ 25 MG/ML VIAL (J2550) IV PRN (13:45)
[2019-08-15 13:46] LABS: ALBUMIN 2.5 GM/DL (3.2-5.2); BILIRUBIN,DIRECT 0.1 MG/DL (0.0-0.2); BILIRUBIN,TOTAL 0.4 MG/DL (0.2-1.0)
[2019-08-15] MEDS ORDERED: ONDANSETRON 4MG/2ML VIAL (J2405) IV PRN (14:00)
--- NOTE | 2019-08-15 15:28 | IPN ---
DATE: 08/15/2019 SUBJECTIVE: The patient denies any fever or chills. She complains of some nausea this morning but no episodes of vomiting. She complains of epigastric pain without radiation, described as crampy abdominal pain on and off, slightly improved with morphine. She denies any hematemesis, bright red blood per rectum. OBJECTIVE: PHYSICAL EXAMINATION: VITAL SIGNS: Temperature 97.7, pulse 89, respiratory rate 16, blood pressure 96/69, 94% on room air. GENERAL: The patient has sunglasses on. Awake, alert, and oriented to person. Very slow to speak. HEART: S1, S2. Sinus rhythm. LUNGS: Clear to auscultation. No wheezing, rales or rhonchi. ABDOMEN: Slightly obese. Positive bowel sounds times four quadrants. No costovertebral angle tenderness. Slight epigastric tenderness. No abdominal bruits. No rebound or guarding. EXTREMITIES: Trace lower extremity edema bilaterally. HOSPITAL MEDICATIONS: - Protonix- Zofran- Phenergan- Carafate- lactulose- Tums- Fleet enema- Synthroid- heparin subcutaneously- Zovirax- Abilify- aspirin- Klonopin- Cymbalta- ferrous sulfate- phenytoin- rifaximin- trazodone- amantadine- Atarax- pregabalin- Senokot- Baclofen- meropenem- DuoNeb- albuterol- morphine- nystatin- heparin flush- Lipitor- metoprolol potassium MICROBIOLOGY: Urine pseudomonas and Enterococcus faecalis. Two sets of blood cultures with no growth after [address] of the abdomen and pelvis with mild bilateral hydronephroses and hydroureter, status post cystectomy for neurogenic bladder and ileostomy urinary diversion. Right lower quadrant ileostomy unchanged. Hydroureter and hydronephrosis unchanged. No finding with streaking. Fluid along Gerota's fascia and in the perinephric fat, raises question of pyelonephritis on the left. Cystic lesion in the ovary on the right. Mild diverticulosis of sigmoid colon. No diverticulitis. No destructive lesions. ASSESSMENT AND PLAN: This is a 53-year-old female with multiple sclerosis, follows in [place] with history of recurrent urinary tract infection (UTI) with pseudomonas bacteremia and bacteruria, seizure disorder, neurogenic bladder with diversion, urostomy in bladder space, status post diversion urostomy in origin bladder, status post diversion urostomy, hypertension, hypothermia due to oxcarbazepine, vitamin D deficiency, anxiety and depression, fatty liver, elevated ammonia, now at level of 8.2, admitted for pseudomonas, Enterococcus faecalis in the urine. CURRENT ISSUES: 1. Left sided pyelonephritis with urine culture showing pseudomonas and Enterococcus. Pseudomonas is resistant to Levaquin, Enterococcus is resistant to doxycycline and erythromycin. The patient is to continue 10 full days of intravenous meropenem, which can be given via [id number] if the patient is ready for discharge prior to completion of 10 days. Infectious disease specialist also recommends fosfomycin to prevent Enterococcus faecalis recurrent urinary tract infection (UTI), but has no coverage for pseudomonas. 2. Epigastric abdominal pain, most likely secondary to peptic ulcer disease or gastritis with possible hiatal hernia or reflux. The patient does not have the alarming symptoms of hematemesis, coffee ground emesis, weight loss to warrant an immediate esophagogastroduodenoscopy (EGD), however, patient and patient's are insistent on having gastroenterology referral. She has been tried on Carafate, as well as proton pump inhibitor only for 2 days. She is scheduled to have an upper GI series tomorrow. She was found to have a small gallstone on CT of the abdomen and pelvis. She will be kept nothing by mouth after midnight and continue with evaluation for her epigastric abdominal discomfort with an ultrasound of the gallbladder to rule out gallbladder sludging. Liver function tests remain normal aside from alkaline phosphatase, which is a cholestatic picture. Bilirubin is within normal limits. Due to family and patient insistence and GI referral, Dr. Michel has been consulted. 3. Multiple sclerosis. Follows with a neurologist in [place]. The patient does not appear to have any acute exacerbation of multiple sclerosis at this time. 4. Neurogenic bladder, status post urostomy with diversion. Urology referral as outpatient. 5. Hypertension. On metoprolol. 6. Dyslipidemia. On atorvastatin. 7. Herpes zoster. On acyclovir. 8. Hypothyroidism. On Synthroid. 9. Depression. On trazodone, Cymbalta and Klonopin. 10. Chronic constipation. On Lactulose, Dulcolax, mineral oil and Senokot. 11. Reflux. Currently on proton pump inhibitor and Carafate. MTDD
[2019-08-15] MEDS ORDERED: SODIUM CHLORIDE 0.9% INJ 10 ML SYR IV PRN (19:00)
[2019-08-15 20:39] VITALS: BP 103/72
[2019-08-15] MEDS: PHENYTOIN ER 100 MG CAP PO SCH (22:09)
[2019-08-15] MEDS: PANTOPRAZOLE 40MG INJ (PROTONIX) (C9113) IV SCH (22:10)
[2019-08-15] MEDS: traZODone 50 MG TAB PO SCH (22:11)
[2019-08-15] MEDS: ARIPiprazole 2 MG TAB PO SCH (22:11)
[2019-08-15] MEDS: ASPIRIN 81 MG ENTERIC TAB PO SCH (22:11)
[2019-08-16 06:07] VITALS: BP 89/56
[2019-08-16 06:52] LABS: HEMATOCRIT 26.5 % (36.0-47.0); HEMOGLOBIN 8.5 g/dl (12.0-15.5); MEAN CORPUSCULAR HEMOGLOBIN 27.1 pg (27.0-33.0); MEAN CORPUSCULAR HGB CONC 32.1 g/dl (32.0-36.5); MEAN CORPUSCULAR VOLUME 84.4 fl (80.0-96.0); PLATELET COUNT, AUTOMATED 256 10^3/uL (150-450); RED BLOOD COUNT 3.14 10^6/uL (4.00-5.40); WHITE BLOOD COUNT 5.1 10^3/uL (4.0-10.0)
[2019-08-16] MEDS: LEVOTHYROXINE 50MCG TABLET (0.05MG) PO SCH (06:57)
[2019-08-16] MEDS: HEPARIN SOD (PORCINE) 5000 UNITS/ML VIAL SQ SCH ×3 (06:58→20:36)
[2019-08-16] MEDS: SUCRALFATE SUSP 1GM/10ML UD PO SCH ×4 (06:58→20:33)
[2019-08-16] MEDS: MEROPENEM INJ 1 GM in APPROPRIATE DILUENT 1 EA IV SCH ×3 (06:58→23:38)
[2019-08-16 07:09] LABS: CREATININE FOR GFR 1.05 MG/DL (0.55-1.30); GLOMERULAR FILTRATION RATE 58.8 (>51); POTASSIUM SERUM 4.1 MEQ/L (3.5-5.1)
[2019-08-16] MEDS: PREGABALIN 100 MG CAP (LYRICA) PO SCH ×2 (08:12→20:35)
[2019-08-16] MEDS: LACTULOSE 20 GM/30 ML SYRUP UD PO SCH (08:12)
[2019-08-16] MEDS: BACLOFEN 10 MG TAB PO SCH ×3 (08:13→20:35)
[2019-08-16] MEDS: clonazePAM 1 MG TAB PO SCH ×2 (08:13→20:33)
[2019-08-16] MEDS: DULoxetine 30 MG CAP (CYMBALTA) PO SCH ×2 (08:13→20:35)
[2019-08-16] MEDS: SENNA 8.6 MG TAB (SENOKOT) PO SCH ×2 (08:13→20:34)
[2019-08-16] MEDS: FERROUS SULFATE 325MG TAB PO SCH ×2 (08:14→20:34)
[2019-08-16] MEDS: POTASSIUM CHLORIDE 10 MEQ SR TABLET PO SCH (08:14)
[2019-08-16] MEDS: hydrOXYzine 50 MG TAB PO SCH ×2 (08:14→20:34)
[2019-08-16] MEDS: levETIRAcetam 250MG TABLET (KEPPRA) PO SCH ×2 (08:14→20:35)
[2019-08-16] MEDS: AMANTADINE 100 MG CAP PO SCH ×2 (08:14→20:36)
[2019-08-16] MEDS: ATORVASTATIN 20 MG TAB PO SCH (08:14)
[2019-08-16] MEDS: ACYCLOVIR 200 MG CAPSULE PO SCH ×2 (08:15→20:35)
[2019-08-16] MEDS: PANTOPRAZOLE 40MG INJ (PROTONIX) (C9113) IV SCH ×2 (08:15→20:36)
[2019-08-16] MEDS: METOPROLOL SUCC *XL* 25MG TAB (TopROL *XL*) PO SCH (08:16)
[2019-08-16] MEDS ORDERED: SODIUM CHLORIDE 0.9% INJ 10 ML SYR IV SCH (09:00)
--- NOTE | 2019-08-16 09:47 | REP ---
RIGHT UPPER QUADRANT ULTRASOUND: Real-time sonographic evaluation of the right upper quadrant was performed. Two gallstones are seen in the gallbladder measuring 5 mm and 6 mm in diameter. Gallbladder wall is upper limits of normal in thickness, 4 mm. Common bile duct is upper limits of normal in diameter at 7 mm. No liver or pancreatic mass is visualized. Right kidney demonstrates mild hydronephrosis. Length is normal at 10.8 cm. There is no free fluid. IMPRESSION: Two subcentimeter gallstones in the gallbladder. Gallbladder wall is upper limits of normal in thickness with no pericholecystic fluid or significant biliary dilatation. Common bile duct upper limits of normal at 7 mm. Mild right hydronephrosis. Electronically Signed by Bran Chirinos MD 08/17/2019 04:38 P
[2019-08-16 10:00] VITALS: BP 100/80
[2019-08-16] MEDS ORDERED: E-Z-GAS II EFFERVESCENT PACKET (SODIUM BICARB./CITRIC ACID/SIMETHICONE) As Ordered ONE (10:19)
[2019-08-16] MEDS ORDERED: E-Z-PAQUE 96% w/w SUSP 176GM BTL As Ordered ONE (10:19)
[2019-08-16] MEDS ORDERED: E-Z-HD 98% w/w 340GM SUSP BTL As Ordered ONE (10:19)
[2019-08-16] MEDS: KCL 20MEQ IN 0.45NS 1000ML 1,000 ML IV SCH ×2 (13:52→23:38)
[2019-08-16 13:55] VITALS: BP 111/70
--- NOTE | 2019-08-16 14:00 | REP ---
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 The bowel gas pattern is normal. Esophageal peristalsis is normal. There is no hiatal hernia. There is no gastroesophageal reflux. There is no esophageal mucosal irregularity or stricture. The gastric rugal folds are unremarkable. The duodenal bulb and loop are unremarkable. Impression: Negative upper gastrointestinal series. Small-bowel follow-through: Transit time of barium to the terminal ileum is 90 minutes. There is no small bowel distension, hypersecretion, or mucosal abnormality. The terminal ileum is unremarkable and fluoroscopy and spot filming. The appendix is unremarkable. Impression: Negative upper gastrointestinal series and small-bowel follow-through. Fluoroscopic exposure time is 2.5 minutes. Electronically Signed by Bran Brock MD 08/16/2019 01:52 P
[2019-08-16] MEDS ORDERED: MERO1INJ IV (14:15)
[2019-08-16] MEDS: MORPHINE SULFATE ORAL SOLN 10 MG/5 ML UD PO PRN (14:29)
[2019-08-16] MEDS ORDERED: ONDANSETRON 4MG/2ML VIAL (J2405) As Ordered ONE (15:35)
[2019-08-16] MEDS ORDERED: fentaNYL 100 MCG/2 ML INJECTION (J3010) As Ordered ONE (15:35)
[2019-08-16] MEDS ORDERED: PROPOFOL 200 MG/20 ML VIAL As Ordered ONE (15:36)
[2019-08-16] MEDS ORDERED: LIDOCAINE 2% INJ 100 MG/5 ML SDV (FOR ANES.) As Ordered ONE (15:36)
--- NOTE | 2019-08-16 15:47 | ROOR ---
Patient Name: Elise Yang Procedure Date: 08/16/2019 3:35 PM Date of : 1965 Age: 53 Room: [facility] Gender: Female Note Status: Finalized Procedure: Upper GI endoscopy Indications: Epigastric abdominal pain, Generalized abdominal pain Providers: Dexter Michel MD Referring MD: Sujit ROSADO MD Requesting Provider: Medicines: Monitored Anesthesia Care Complications: No immediate complications. Procedure: Pre-Anesthesia Assessment: - The heart rate, respiratory rate, oxygen saturations, blood pressure, adequacy of pulmonary ventilation, and response to care were monitored throughout the procedure. The Endoscope was introduced through the mouth, and advanced to the second part of duodenum. The upper GI endoscopy was accomplished without difficulty. The patient tolerated the procedure well. Findings: The Z-line was regular and was found 40 cm from the incisors. No other significant abnormalities were identified in a careful examination of the stomach. The exam of the duodenum was otherwise normal. Impression: - Z-line regular, 40 cm from the incisors. - No specimens collected. - The examination was otherwise normal. Recommendation: - Patient has a contact number available for emergencies. The signs and symptoms of potential delayed complications were discussed with the patient. Return to normal activities tomorrow. Written discharge instructions were provided to the patient. - High fiber diet. - Return patient to [facility] for ongoing care. - The findings and recommendations were discussed with the referring physician. Dexter Michel MD Dexter Michel MD 08/16/2019 3:47:01 PM Electronically signed by Dexter Michel MD Number of Addenda: 0 Note Initiated On: 08/16/2019 3:35 PM Estimated Blood Loss: Estimated blood loss: none.
--- NOTE | 2019-08-16 15:50 | IPN ---
DATE: 08/16/2019 Patient continues to complain of epigastric abdominal pain with radiation across the epigastrium. No nausea today and no vomiting. The patient underwent gallbladder ultrasound which was negative with normal gallbladder rivero and no ductal dilatation. The patient has small calculi. The patient also underwent upper GI series which was also normal. The patient denies, fevers, chills or cough. She has been cooperative with her physical therapy. She currently denies any dysuria and has been on Meropenem for a UTI. No fevers of chills, flank pain overnight. PHYSICAL EXAMINATION: VITAL SIGNS: Temperature 97.9, pulse 81, respiratory rate 16, blood pressure 111/70, 91% on room. Generally the patient is awake, alert and oriented to person and place and answering questions appropriately. No respiratory distress. Very slow to speak but appropriate. No use of respiratory accessory muscles. Heart S1, and S2 sinus rhythm. No murmurs. Rubs or gallops. Lungs are clear to auscultation. NO wheezing rales or rhonchi. Abdomen is obese, soft and nontender, obese. Slight epigastric tenderness. No rebound or guarding. No hepatosplenomegaly. Slightly distended extremities. Trace edema bilaterally. HOSPITAL MEDICATIONS: Heparin and saline flushes. Protonix twice a day Phenergan, Carafate, lactulose, Tums, mineral oil, half normal saline with potassium, Synthroid, heparin subcu, acyclovir, Abilify, aspirin, Klonopin, Cymbalta, ferrous sulfate, Keppra, Phenytoin, Rifaximine, trazodone, amantadine, Atarax, Lyrica, Senokot, baclofen, meropenem, albuterol, Doculax, morphine, nystatin, atorvastatin, metoprolol, and potassium. ASSESSMENT AND PLAN: This is a 53-year-old female with known history of multiple sclerosis who sees neurologist in [place] with history of recurrent UTI due to neurogenic bladder with urostomy diversion, hypertension, hypothermia due to carbamazepine, UTI with pseudomonas bacteremia, vitamin D deficiency, anxiety, depression admitted for pseudomonas Enterococcus fecalis in the urine and pyelonephritis. 1. Left sided pyelonephritis with urine culture showing a pseudomonas enterococcus resistant to Levaquin. Enterococcus was resistant to doxycycline and erythromycin per infectious disease patient may complete a full course of 10 days of intravenous meropenem. She may complete this at home via her [employer]. Discharge plans are for tomorrow morning. If the patient's pain is improved and patient passes home safety evaluation. 2. Epigastric abdominal discomfort. Upper GI series and gallbladder ultrasound are essentially negative. GI, Dr. Michel has been consulted for EGD. She is to continue nothing by mouth status for now and IV fluid while nothing by mouth to prevent hypoglycemia. Hypoglycemic protocol has been ordered. Bilirubin is within normal limits. Alkaline phos is slightly elevated. 3. Multiple sclerosis. Sees an outpatient neurologist. 4. Neurogenic bladder status-post urostomy with diversion. Urology referral as outpatient with chronic UTI's. 5. Hypertension on metoprolol. 6. Dyslipidemia on atorvastatin. 7. Herpes zoster on acyclovir. 8. Hyperthyroidism on Synthroid. 9. Depression on trazodone and Cymbalta and Klonopin. 10. Chronic constipation. On lactulose, Dulcolax, mineral oil and Senokot. 11. Reflux on PPI and Carafate. DISPOSITION: Discharge in the morning if negative EGD and passes home safety evaluation. MTDD
[2019-08-16 19:57] VITALS: BP 114/71
[2019-08-16] MEDS: PHENYTOIN ER 100 MG CAP PO SCH (20:34)
[2019-08-16] MEDS: traZODone 50 MG TAB PO SCH (20:34)
[2019-08-16] MEDS: ASPIRIN 81 MG ENTERIC TAB PO SCH (20:35)
[2019-08-16] MEDS: ARIPiprazole 2 MG TAB PO SCH (20:41)
[2019-08-17] MEDS: MORPHINE SULFATE ORAL SOLN 10 MG/5 ML UD PO PRN (06:09)
[2019-08-17] MEDS: LEVOTHYROXINE 50MCG TABLET (0.05MG) PO SCH (06:09)
[2019-08-17] MEDS: MEROPENEM INJ 1 GM in APPROPRIATE DILUENT 1 EA IV SCH (06:09)
[2019-08-17] MEDS: HEPARIN SOD (PORCINE) 5000 UNITS/ML VIAL SQ SCH (06:13)
[2019-08-17 06:47] VITALS: BP 102/66
[2019-08-17 07:01] LABS: HEMATOCRIT 27.7 % (36.0-47.0); HEMOGLOBIN 8.7 g/dl (12.0-15.5); MEAN CORPUSCULAR HEMOGLOBIN 26.3 pg (27.0-33.0); MEAN CORPUSCULAR HGB CONC 31.4 g/dl (32.0-36.5); MEAN CORPUSCULAR VOLUME 83.7 fl (80.0-96.0); PLATELET COUNT, AUTOMATED 266 10^3/uL (150-450); RED BLOOD COUNT 3.31 10^6/uL (4.00-5.40); WHITE BLOOD COUNT 5.6 10^3/uL (4.0-10.0)
[2019-08-17 07:17] LABS: BLOOD UREA NITROGEN 9 MG/DL (7-18); CARBON DIOXIDE LEVEL 29 MEQ/L (21-32); CHLORIDE LEVEL 108 MEQ/L (98-107); CREATININE FOR GFR 0.84 MG/DL (0.55-1.30); GLOMERULAR FILTRATION RATE > 60.0 (>51); GLUCOSE, FASTING 86 MG/DL (70-100); POTASSIUM SERUM 4.3 MEQ/L (3.5-5.1); SODIUM LEVEL 144 MEQ/L (136-145)
[2019-08-17 08:30] VITALS: BP 108/71
[2019-08-17] MEDS: BACLOFEN 10 MG TAB PO SCH (08:31)
[2019-08-17] MEDS: DULoxetine 30 MG CAP (CYMBALTA) PO SCH (08:31)
[2019-08-17] MEDS: hydrOXYzine 50 MG TAB PO SCH (08:31)
[2019-08-17] MEDS: LACTULOSE 20 GM/30 ML SYRUP UD PO SCH (08:31)
[2019-08-17] MEDS: levETIRAcetam 250MG TABLET (KEPPRA) PO SCH (08:31)
[2019-08-17] MEDS: clonazePAM 1 MG TAB PO SCH (08:32)
[2019-08-17] MEDS: ATORVASTATIN 20 MG TAB PO SCH (08:32)
[2019-08-17] MEDS: FERROUS SULFATE 325MG TAB PO SCH (08:32)
[2019-08-17] MEDS: SENNA 8.6 MG TAB (SENOKOT) PO SCH (08:32)
[2019-08-17] MEDS: PREGABALIN 100 MG CAP (LYRICA) PO SCH (08:32)
[2019-08-17] MEDS: PANTOPRAZOLE 40MG INJ (PROTONIX) (C9113) IV SCH (08:33)
[2019-08-17] MEDS: ACYCLOVIR 200 MG CAPSULE PO SCH (08:33)
[2019-08-17] MEDS: SUCRALFATE SUSP 1GM/10ML UD PO SCH (08:33)
[2019-08-17] MEDS: POTASSIUM CHLORIDE 10 MEQ SR TABLET PO SCH (08:33)
[2019-08-17] MEDS: AMANTADINE 100 MG CAP PO SCH (08:33)
[2019-08-17 08:36] VITALS: BP 108/71
[2019-08-17] MEDS: METOPROLOL SUCC *XL* 25MG TAB (TopROL *XL*) PO SCH (08:36)
--- NOTE | 2019-08-17 11:14 | CR ---
DATE OF CONSULTATION: 08/16/2019 53-year white female asked to be seen by gastroenterology (GI) for evaluation of upper abdominal pain. The patient has had extensive workup and has been complaining of chronic abdominal pain intermittently for the past several years. The patient had no complaints of fevers, night sweats or shaking chills. No apparent involuntary weight loss. The patient is admitted to [facility] due to increasing abdominal pain for the past 72 hours. She has had also some intermittent back pain. The patient was brought to the hospital for evaluation of the pain. She has a past history of chronic Pseudomonas infection. PAST MEDICAL HISTORY: 1. Positive for multiple sclerosis. 2. Seizure disorder. 3. Neurogenic bladder as well as neurogenic bowel status post urostomy. 4. Hypertension. 5. Torticollis 6. Pseudobulbar affect. 7. Paresthesias. 8. 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 9. Herpes zoster secondary to immunosuppression. 10. Microcytic anemia. 11. Vitamin B12 deficiency. 12. Vitamin D deficiency. 13. Migraines. 14. Obesity. 15. Reflux. 16. Back pain. 17. Anxiety and depression. 18. Hepatic steatosis. PAST SURGICAL HISTORY: Status post. 1. Breast reduction surgery. 2. Bilateral wrist surgery. 3. Bladder resection. 4. Hysterectomy. 5. Tubal ligation. 6. Port placement. 7. Left ulnar implant. SOCIAL HISTORY: The patient used to smoke two packs a day , quit 2 years ago. Occasional alcohol use. Occasional marijuana use. The patient lives with her and three children. ALLERGIES: Documented in the chart. REVIEW OF SYSTEMS: Noncontributory. PHYSICAL EXAMINATION: General: Well-developed, well-nourished white female in no obvious acute distress. Chest: Clear. Cardiovascular exam showed regular rhythm. No murmurs or gallops. Normal physiological split S1, S2. Abdomen: Soft, diffusely tender. No hepatosplenomegaly. Bowel sounds positive. ANALYSIS: Abdominal pain of unknown etiology. The patient has had pain for over two years. Laboratory studies on this admission showed a white count of 15,000, hemoglobin and hematocrit 10 and 33. Chemistry on admission showed abnormal liver function, amylase, lipase and renal function is 22 and 1.125. Toxicology a little low level on dilantin. Imaging studies on this admission included abdominal CT on 08/11/2019 which showed streaking around the perinephric fat of the left kidney consistent with pyelonephritis. The patient has mild stable bilateral hydronephrosis and hydroureter associated urinary diversion with the right lower quadrant ileostomy. The patient has gallstones. In addition, the patient has had upper GI and small-bowel follow-through, which was interpreted being normal. Terminal ileum was also normal. The patient had ultrasound of the gallbladder and this showed two small stone in gallbladder. The gallbladder wall was upper limits of normal in thickness. No biliary tract dilatation. PLAN: The plan will be to set the patient up for upper endoscopy to finish the evaluation of her pain. There is no radiographic evidence for any source of pain at this time.
[2019-08-17] MEDS ORDERED: MORP10SO2 PO (15:40)
--- NOTE | 2019-08-17 16:26 | DSES ---
DATE OF ADMISSION: 08/11/2019 DATE OF DISCHARGE: 08/17/2019 CONSULTANTS DURING ADMISSION: Infectious disease, Dr. Salvatore Lobato. Clinical Psychologist Private [facility], Dr. Dexter Michel. PROCEDURES DURING THIS ADMISSION: EGD 08/16/2019. PRIMARY DISCHARGE DIAGNOSES: 1. Epigastric abdominal pain. 2. Left sided pyelonephritis. 3. Cholelithiasis. 4. Nonobstructive UTI secondary to Pseudomonas and Enterococcus Faecalis. 5. History of multiple sclerosis with neurogenic bladder status post diversion urostomy. 6. History of seizure disorder. 7. Hypertension. 8. Torticollis pseudobulbar affect. 9. Paresthesias. 10. Hypothermia. 11. Herpes zoster secondary to chronic immunosuppression. DISCHARGE MEDICATIONS: - meropenem 1 gram IV every 8 hours four days supply to complete a full 10 day course of antibiotics HOSPITAL COURSE: The patient presented to the emergency room with complaints of back pain. Workup in the ER showed CT of the abdomen and pelvis with perinephric stranding. Hospitalist service was consulted for admission. She was started on IV meropenem. She had a fever of 101.4, tachycardic 114 with a white count of 15,000. The patient was admitted with sepsis. Sputum culture grew out Pseudomonas Enterococcus Faecalis. Dr. Salvatore Lobato was consulted and recommended continuation of meropenem. The patient continues to complain of epigastric abdominal pain. CT abdomen and pelvis showed streaky fat and fluid along Gerota's fascia and perinephric fat around the left kidney consistent with pyelonephritis. Bilateral hydronephrosis and hydroureter associated with urinary diversion in the right lower quadrant ileostomy. No urinary tract calculus. Normal appendix. Prior cystectomy. Cholelithiasis. The patient tolerated her diet without nausea or vomiting. Gallbladder ultrasound showed two subcentimeter gallstones in the gallbladder. Gallbladder wall is upper limits of normal thickness with no pericholecystic fluid or significant biliary dilatation. CBD upper limits of normal at 7 mm with mild right hydronephrosis. Upper GI series was negative. EGD was also negative. Dr. Michel was consulted and recommended SSRI and psychiatric referral. The patient's two sets of blood cultures were negative. Patient was evaluated for the back pain with lumbar spine CT which showed no acute fracture or subluxation within the lumbar spine, focal sclerosis was found along superior endplate of the L2 without depression. Likely chronic etiology. Infectious disease specialist, Dr. Salvatore Lobato recommended fosfomycin for suppressive therapy that can be given once weekly. Dr. Michel recommended SSRI as a trial or psychiatric referral. The patient's family would prefer this to be given by her neurologist to make sure that there is no contraindication and for the neurologist to prescribe any SSRIs if it was deemed safe. LABORATORY DATA ON DISCHARGE: White count 5.6, hemoglobin 8.7, hematocrit 27, platelet count 266. Sodium 144, potassium 4.3, chloride 108, bicarb 29, BUN 9, creatinine 0.84, glucose 84, total bilirubin 0.4, direct bilirubin 0.1, AST 10, ALT 11, alkaline phosphatase 219, ammonia 19, total protein 6, albumin 2.5, amylase 18, lipase of 97. Microbiology: 08/11/2019 urine culture Pseudomonas, Enterococcus Faecalis. Pseudomonas is resistant to Levaquin, sensitive to cefepime, ceftazidime, gentamicin, meropenem, Zosyn and tobramycin. Enterococcus Faecalis is resistant to erythromycin and tetracycline, sensitive to ampicillin, Cipro, gents, Levaquin, Zyvox, nitrofurantoin, penicillin G and vancomycin. IMAGING STUDIES: Lumbar CT of the spine on 08/11/2019 no acute fracture or subluxation within the lumbar spine. Focal sclerosis along the superior endplate of L2 without depression. Likely chronic in nature. CT abdomen and pelvis done 08/11/2019 showed streaky fat consistent with pyelonephritis of the left kidney. Mild stable bilateral hydronephrosis and hydroureter associated with urinary diversion in the right lower quadrant ileostomy. No urinary tract calculus. Normal appendix. Prior cystectomy. Cholelithiasis. Upper GI series on 08/16 was negative. Gallbladder ultrasound 08/16 shows subcentimeter two gallstones in the gallbladder. Upper limits normal thickness in the gallbladder wall. No pericholecystic fluid or significant biliary dilatation. Common bile duct upper limits of normal at 7 mm and mild right hydronephrosis. TIME SPENT ON DISCHARGE: 30 minutes. MTDD
== END 2019-08-17 12:05 | disposition home health service (06) | DRG 690 ==
LOC: EDBD 09:59 → M ED 09:59 → M ED INP 13:26 → M MS5PR 15:27
PROVIDERS: ADMIT Family Medicine; ATTEND General Practice
PROC: 0DJ08ZZ Inspection of Upper Intestinal Tract, Via Natural or Artificial Opening Endoscopic (ICD-10-PCS; principal; 2019-08-16 15:00)
DX: N10 Acute pyelonephritis (principal); K59.2 Neurogenic bowel, not elsewhere classified; E72.20 Disorder of urea cycle metabolism, unspecified; Z68.41 Body mass index [BMI] 40.0-44.9, adult; G35 Multiple sclerosis; G40.909 Epilepsy, unspecified, not intractable, without status epilepticus; N31.9 Neuromuscular dysfunction of bladder, unspecified; I10 Essential (primary) hypertension; M43.6 Torticollis; F48.2 Pseudobulbar affect; R20.0 Anesthesia of skin; D50.9 Iron deficiency anemia, unspecified; E03.9 Hypothyroidism, unspecified; E53.8 Deficiency of other specified B group vitamins; E55.9 Vitamin D deficiency, unspecified; G43.909 Migraine, unspecified, not intractable, without status migrainosus; K59.09 Other constipation; B96.5 Pseudomonas (aeruginosa) (mallei) (pseudomallei) as the cause of diseases classified elsewhere; E66.9 Obesity, unspecified; K21.9 Gastro-esophageal reflux disease without esophagitis; G89.29 Other chronic pain; F41.9 Anxiety disorder, unspecified; F32.9 Major depressive disorder, single episode, unspecified; K76.0 Fatty (change of) liver, not elsewhere classified; Z85.828 Personal history of other malignant neoplasm of skin; Z93.6 Other artificial openings of urinary tract status; Z87.891 Personal history of nicotine dependence; Z79.82 Long term (current) use of aspirin; Z79.1 Long term (current) use of non-steroidal anti-inflammatories (NSAID); Z79.899 Other long term (current) drug therapy; Z88.1 Allergy status to other antibiotic agents; Z88.2 Allergy status to sulfonamides; Z88.5 Allergy status to narcotic agent; Z88.6 Allergy status to analgesic agent; Z90.6 Acquired absence of other parts of urinary tract; Z95.828 Presence of other vascular implants and grafts

== ENCOUNTER → 2019-08-22 | Outpatient (CLI) | payer MEDICARE, BC, OTHER, MEDICAID ==
[~2019-08-22] MED LIST changes: +FERR325T3 PO; +LACT10SO3 PO; +MORP10SO2 PO; +MORP20SO PO; +PHEN100C PO; +PREG300C PO; +VITA500045 PO; +[UNRECOGNIZED DRUG - CODE] PO
[2019-08-22 13:35] LABS: BLOOD UREA NITROGEN 25 MG/DL (7-18); CALCIUM LEVEL 9.3 MG/DL (8.5-10.1); CARBON DIOXIDE LEVEL 29 MEQ/L (21-32); CHLORIDE LEVEL 105 MEQ/L (98-107); CREATININE FOR GFR 0.94 MG/DL (0.55-1.30); FERRITIN 32 NG/ML (8-252); GLOMERULAR FILTRATION RATE > 60.0 (>51); GLUCOSE, FASTING 79 MG/DL (70-100); IRON (FE) 128 UG/DL (50-170); MAGNESIUM LEVEL 2.4 MG/DL (1.8-2.4); PERCENT SATURATION 42.1 % (13.2-45.0); POTASSIUM SERUM 4.8 MEQ/L (3.5-5.1); SODIUM LEVEL 143 MEQ/L (136-145); TOTAL IRON BINDING CAPACITY 304 UG/DL (250-450)
== END ==
LOC: M WUC 11:15
PROVIDERS: ATTEND Family Medicine
DX: E72.20 Disorder of urea cycle metabolism, unspecified (principal); D50.9 Iron deficiency anemia, unspecified; E78.6 Lipoprotein deficiency; E83.42 Hypomagnesemia

== ENCOUNTER → 2019-09-21 | Outpatient (CLI) | payer MEDICARE, BC, OTHER, MEDICAID ==
[~2019-09-21] MED LIST changes: +OCRE300I IV
--- NOTE | 2019-09-21 11:08 | REP ---
NUCLEAR GASTRIC EMPTYING SCAN: Following the oral administration of the 1.1 mCi of technetium-99m sulfur colloid in two scrambled eggs and 2 ounces of water multiple images in the upper abdomen are performed for 90 minutes in the anterior and posterior projections. Gastric activity is measured. At the end of 90 minutes approximately 35% of the injected activity has emptied from the stomach. T1/2 is calculated to be 105 minutes which is mildly above normal value of 90 minutes. IMPRESSION: Mildly delayed gastric emptying. Electronically Signed by Bran Chirinos MD 09/23/2019 10:19 A
== END ==
LOC: M RAD 09-14 12:17
PROVIDERS: ATTEND Internal Medicine Gastroenterology
DX: R10.9 Unspecified abdominal pain (principal)
CPT/HCPCS: 78264; A9541

== ENCOUNTER → 2019-10-02 | Outpatient (CLI) | payer MEDICARE, BC, OTHER, MEDICAID ==
[~2019-10-02] MED LIST changes: +FUROSEMIDE 20 MG/2 ML VIAL (J1940) As Ordered ONE
--- NOTE | 2019-10-02 09:57 | REP ---
CT of the abdomen and pelvis without IV and oral contrast for hydronephrosis: Comparison is 08/11/2019. The patient has history of neurogenic bladder, cystectomy and ileostomy urinary diversion. This is unchanged from the prior study. There is moderate bilateral hydronephrosis/hydroureter, unchanged from the prior study. On the prior study there was bilateral perinephric stranding, however, the stranding was somewhat increased surrounding the left kidney compared to the right. On the study today the bilateral perinephric stranding is symmetric and the increased stranding surrounding the left kidney identified previously has resolved. There are no ureteral calculi. There is a small 2 mm right renal lower pole nonobstructive calculus. This was not definitely present previously. There are no left renal calculi. The visualized lung allison again demonstrate a calcified granuloma in the left lower lobe but are otherwise unremarkable and unchanged. The unenhanced hepatic parenchyma, pancreas and spleen are unremarkable and unchanged. There are two small gallbladder calculi near the gallbladder neck. There is no biliary duct dilatation. There is no gallbladder wall thickening or pericholecystic fluid. The adrenals are unremarkable. The abdominal aorta is unremarkable. There is no periaortic adenopathy. There is no bowel distension or obstruction. There are postsurgical changes related to the ileostomy, unchanged. There is no ascites. Pelvis There is a right adnexal cyst as previously measuring up to 4.9 cm AP diameter, unchanged. The right ureter is along the superolateral margin of this cyst as previously. There is a left adnexal cyst measuring 3.1 cm. This measured 2.5 cm previously. There are occasional sigmoid colon diverticula. There is no CT evidence of diverticulitis. There is no pelvic ascites or adenopathy. Impression: There is mild perinephric fat stranding, bilaterally symmetric. The increased fat stranding surrounding the left kidney on the previous study has resolved. There is moderate bilateral hydronephrosis, unchanged. Cystectomy and ileostomy urinary diversion are unchanged. Bilateral adnexal cysts, the right is larger and unchanged, the left has slightly increased in size. Occasional sigmoid colon diverticula without diverticulitis. Nonobstructive 2 mm right renal lower pole calculus as an interval change. Electronically Signed by Bran Brock MD 10/02/2019 09:48 A
--- NOTE | 2019-10-02 11:45 | REP ---
NUCLEAR RENAL SCINTIGRAPHY WITH DIFFERENTIAL FLOW AND EXCRETORY PHASE IMAGING AND POST LASIX WASHOUT VENOGRAPHY. GFR CALCULATION: HISTORY: Hydronephrosis. History of neurogenic bladder status post cystectomy and urinary diversion procedure. Comparison is made with today's CT study. TECHNIQUE: The glomerular filtration portion of the study was performed with 3.3 mCi dose of technetium-99m DTPA. Renal regions of interest are drawn and time activity curves are plotted for the GFR analysis. The MAG 3 portion of the exam was performed with an 8.8 mCi dose of technetium 99m Mag 3. Posterior flow and excretory phase images are acquired. Renal cortical regions of interest are drawn and time activity curves are plotted for renal function analysis. Post Lasix radiography was carried out with 20 mg of intravenous Lasix. SCINTIGRAPHIC FINDINGS: The glomerular filtration rates are calculated for the left and right kidneys at 156 and 105 mL per minute respectively for a total calculated GFR of 261 mL per minute. These values are believed to be spuriously high. Posterior flow study shows normal symmetric perfusion of the renal beds. Excretory phase images demonstrate no evidence of intrarenal mass on either side. There is bilateral hydronephrosis. The collecting systems are labeled bilaterally by 4 minutes and the ureters are bilaterally labeled at 8 minutes. Renal cortical regions of interest show asymmetric cortical count ratios, 39% of overall counts from the right kidney and 61 from the left. Ushj-qi-nood activity is delayed bilaterally at 4 minutes on the left and 7 minutes on the right. Ewuz-zv-fsgj max activity is delayed bilaterally greater than 30 minutes. Relatively flat excretion curves. Post Lasix venography demonstrates bilateral washout of the upper tracts with dlki-ak-oxfo Lasix of 10.9 minutes on the left and 13.6 minutes on the right. IMPRESSION: Bilateral hydronephrosis and hydroureter. Somewhat flat excretion curves. Lasix venography shows bilateral washout. Calculated glomerular filtration rates are felt to be spuriously high in this case. Electronically Signed by Demario Villa MD 10/02/2019 12:39 P
== END ==
LOC: M RAD 08:03
PROVIDERS: ATTEND Urology
DX: N31.9 Neuromuscular dysfunction of bladder, unspecified (principal); Z87.440 Personal history of urinary (tract) infections; N13.30 Unspecified hydronephrosis
CPT/HCPCS: 74176; 78708; A9539; A9562; J1940

== ENCOUNTER → 2019-11-06 | Outpatient (REF) | payer MEDICARE, OTHER, MEDICAID ==
[~2019-11-06] MED LIST changes: -FUROSEMIDE 20 MG/2 ML VIAL (J1940) As Ordered ONE; +MONUROL PO; +PROM50TA4 PO
[2019-11-06 15:43] LABS: BASO % 0.4 % (0.0-1.0); EOS # 0.2 10^3/uL (0.0-0.5); EOS % 3.3 % (0.0-3.0); HEMATOCRIT 36.1 % (36.0-47.0); HEMOGLOBIN 11.1 g/dl (12.0-15.5); LYMPH # 0.6 10^3/uL (1.5-5.0); LYMPH % 8.3 % (24.0-44.0); MEAN CORPUSCULAR HEMOGLOBIN 25.5 pg (27.0-33.0); MEAN CORPUSCULAR HGB CONC 30.7 g/dl (32.0-36.5); MEAN CORPUSCULAR VOLUME 82.8 fl (80.0-96.0); MONO # 0.9 10^3/uL (0.0-0.8); MONO % 11.8 % (0.0-5.0); NEUTROPHILS # 5.5 10^3/uL (1.5-8.5); PLATELET COUNT, AUTOMATED 340 10^3/uL (150-450); RED BLOOD COUNT 4.36 10^6/uL (4.00-5.40); WHITE BLOOD COUNT 7.3 10^3/uL (4.0-10.0)
[2019-11-06 15:51] LABS: ALBUMIN 3.2 GM/DL (3.2-5.2); BILIRUBIN,TOTAL 0.3 MG/DL (0.2-1.0); C REACTIVE PROTEIN QUANTITATIV 12.5 MG/DL (0.00-0.30); CALCIUM LEVEL 8.7 MG/DL (8.5-10.1); CREATININE FOR GFR 1.29 MG/DL (0.55-1.30); GLOMERULAR FILTRATION RATE 46.2 (>51); POTASSIUM SERUM 3.9 MEQ/L (3.5-5.1); TOTAL PROTEIN 6.8 GM/DL (6.4-8.2)
== END ==
LOC: M SFHCPLAZ 13:54
PROVIDERS: ATTEND Internal Medicine Infectious Disease
DX: N39.0 Urinary tract infection, site not specified (principal)
CPT/HCPCS: 36415; 80053; 85025; 86140; G0463

== ENCOUNTER 2019-12-18 18:30 | Inpatient (IN) | payer MEDICARE, BC, OTHER ==
[~2019-12-18] VITALS: Ht 154.9 cm; Wt 103.2 kg
[~2019-12-18 18:30] MED LIST changes: -MORP1SOL3 PO; +MORP1SOL4 PO; +ONDA8TAB10 PO; -ONDA8TAB7 PO; -TRAZ-163 PO; +TRAZ-257 PO
[2019-12-18 20:01] LABS: HEMATOCRIT 33.7 % (36.0-47.0); HEMOGLOBIN 10.3 g/dl (12.0-15.5); MEAN CORPUSCULAR HEMOGLOBIN 24.3 pg (27.0-33.0); MEAN CORPUSCULAR HGB CONC 30.6 g/dl (32.0-36.5); MEAN CORPUSCULAR VOLUME 79.7 fl (80.0-96.0); PLATELET COUNT, AUTOMATED 308 10^3/uL (150-450); RED BLOOD COUNT 4.23 10^6/uL (4.00-5.40)
[2019-12-18 20:15] LABS: CALCIUM LEVEL 8.8 MG/DL (8.5-10.1); CREATININE FOR GFR 1.22 MG/DL (0.55-1.30); GLOMERULAR FILTRATION RATE 49.3 (>51); POTASSIUM SERUM 4.2 MEQ/L (3.5-5.1)
[2019-12-18 20:18] LABS: APPEARANCE, URINE TURBID (CLEAR); BACTERIA, URINE AUTO 1+ (NEGATIVE); BILIRUBIN, URINE AUTO NEGATIVE (NEGATIVE); BLOOD, URINE BLOOD 1+ (NEGATIVE); COLOR, URINE YELLOW (YELLOW); GLUCOSE, URINE (UA) AUTO NEGATIVE (NEGATIVE); KETONE, URINE AUTO NEGATIVE (NEGATIVE); LEUKOCYTE ESTERASE, URINE AUTO 3+ (NEGATIVE); NITRITE, URINE AUTO NEGATIVE (NEGATIVE); PROTEIN, URINE AUTO 1+ mg/dL (NEGATIVE); RBC, URINE AUTO 22 /HPF (0-3); SPECIFIC GRAVITY URINE AUTO 1.014 (1.002-1.035); SQUAMOUS EPITHELIAL CELL UR AU 0 /HPF (0-6); UROBILINOGEN, URINE AUTO 0.2 mg/dL (0.0-2.0); WBC, URINE AUTO TNTC /HPF (0-3)
[2019-12-18] MEDS: SENOKOT S TAB PO SCH (21:00)
[2019-12-18] MEDS: levETIRAcetam 250MG TABLET (KEPPRA) PO SCH (21:00)
[2019-12-18] MEDS: ARIPiprazole 2 MG TAB PO SCH (21:00)
[2019-12-18] MEDS: traZODone 50 MG TAB PO SCH (21:00)
[2019-12-18] MEDS: AMANTADINE 100MG TABLET PO SCH (21:00)
[2019-12-18] MEDS: PREGABALIN 100 MG CAP (LYRICA) PO SCH (21:00)
[2019-12-18] MEDS ORDERED: MEROPENEM INJ 1 GM in IV 1 EA IV ONE (21:00)
[2019-12-18] MEDS: ACYCLOVIR 200 MG CAPSULE PO SCH (21:00)
[2019-12-18] MEDS: hydrOXYzine 50 MG TAB PO SCH (21:00)
[2019-12-18] MEDS: DULoxetine 30 MG CAP (CYMBALTA) PO SCH (21:00)
[2019-12-18] MEDS: OMEPRAZOLE 20 MG CAP PO SCH (21:00)
[2019-12-18] MEDS: BACLOFEN 10 MG TAB PO SCH (21:00)
[2019-12-18] MEDS: ASPIRIN 81 MG ENTERIC TAB PO SCH (21:00)
[2019-12-18] MEDS: PHENYTOIN ER 100 MG CAP PO SCH (21:00)
[2019-12-18] MEDS ORDERED: VANCOMYCIN HCL 1,000 MG, VIAL MATE ADAPTER 1 EACH in D5W 250 ML IV SCH (21:30)
[2019-12-18] MEDS ORDERED: ASMA16.7 INH (22:34)
[2019-12-18] MEDS ORDERED: SENO8.6T10 PO (22:34)
[2019-12-18] MEDS ORDERED: MORP10SO PO (22:34)
[2019-12-18] MEDS ORDERED: PROM25TA12 PO (22:34)
[2019-12-18] MEDS ORDERED: VANCOMYCIN HCL 750 MG, VIAL MATE ADAPTER 1 EACH in D5W 250 ML IV ONE (23:00)
[2019-12-18] MEDS ORDERED: PROMETHAZINE 25 MG TAB PO PRN (23:15)
[2019-12-18] MEDS ORDERED: NYSTATIN CREAM 15 GM TOP PRN (23:15)
[2019-12-18] MEDS ORDERED: ACETAMINOPHEN TAB 650MG DOSE (2X325MG) PO PRN (23:15)
[2019-12-18] MEDS ORDERED: LACTULOSE 20 GM/30 ML SYRUP UD PO PRN (23:15)
[2019-12-18] MEDS ORDERED: FLEET OIL RETENTION ENEMA PR PRN (23:15)
[2019-12-18] MEDS ORDERED: LEVALBUTEROL 1.25 MG/0.5 ML CONCENTRATE NEB INH PRN (23:15)
[2019-12-18] MEDS ORDERED: BISACODYL 10 MG SUPP PR PRN (23:15)
[2019-12-19] MEDS ORDERED: VANCOMYCIN HCL 750 MG, VIAL MATE ADAPTER 1 EACH in D5W 250 ML IV ONE ×3
[2019-12-19] MEDS: MORPHINE SULFATE ORAL SOLN 10 MG/5 ML UD PO PRN ×3 (01:14→22:12)
--- NOTE | 2019-12-19 02:50 | HPEPDOC ---
General Date of Admission Dec 18, 2019 at 23:15 Date of Service: Dec 18, 2019 Chief Complaint The patient is a 54-year-old female Who presented to the emergency room after experiencing abnormal output from her urostomy History of Present Illness Patient is a 54-year-old female with a past medical history of multiple sclerosis, recurrent UTIs (Hx of Pseudomonas and Enterococcus faecalis ) and multiple other medical problems, who was presented to the emergency room after she has reported that the output from her urostomy tube has not cleared. Patient has a history of Pseudomonas and Enterococcus faecalis urinary tract infections and has been on vancomycin and Meropenem in the past. As an outpatient she takes weekly fosfomycin doses on Wednesday. Patient reports that usually by Wednesday. Her urine output is cloudy and by Wednesday after receiving the medications it has cleared. This time however she hasnt noted that it has stopped working approximately 2 weeks ago. Over the last few day she has reported that her body has been hurting and she has been feeling more fatigued at home. She has also reported a fever of 100.7 and has noted chills. Patient denies nausea, vomiting, constipation, diarrhea, chest pain, shortness of breath or palpitations. She denies a cough. Patient reports that her appetite is normal, but has reported a weight loss that she is unable to quantify Home Medications Scheduled Acyclovir (Acyclovir) 400 Mg Tab, 400 MG PO BID, (Reported) Amantadine HCl (Amantadine) 100 Mg Tablet, 100 MG PO BID, (Reported) Aripiprazole (Aripiprazole) 2 Mg Tablet, 2 MG PO QHS, (Reported) Aspirin (Ecotrin) 81 Mg Tablet.dr, 81 MG PO QHS, (Reported) Atorvastatin Calcium (Atorvastatin Calcium) 40 Mg Tablet, 40 MG PO DAILY, (Reported) Baclofen (Baclofen) 20 Mg Tablet, 20 MG PO TID, (Reported) Clonazepam (Clonazepam) 1 Mg Tab, 1 MG PO DAILY, (Reported) Duloxetine Hcl (Duloxetine HCl) 60 Mg Capsule.dr, 60 MG PO BID, (Reported) Ergocalciferol (Vitamin D2) (Vitamin D2) 50,000 Units Cap, 50,000 UNITS PO 1XWK, (Reported) FRIDAYS Hydroxyzine HCl (Hydroxyzine HCl) 50 Mg Tablet, 50 MG PO BID, (Reported) Levetiracetam (Keppra) 500 Mg Tablet, 500 MG PO BID, (Reported) Levothyroxine Sodium (Levothyroxine Sodium) 50 Mcg Tablet, 50 MCG PO QAM, (Reported) 30 MINUTES BEFORE BREAKFAST Meloxicam (Meloxicam) 15 Mg Tablet, 15 MG PO DAILY, (Reported) Metoprolol Succinate (Metoprolol Succinate) 25 Mg Tab, 25 MG PO DAILY, (Reported) Ocrelizumab (Ocrevus) 300 Mg/10 Ml Vial, Unknown Dose IV [id number], (Reported) Omeprazole (Omeprazole) 40 Mg Cap, 40 MG PO BID, (Reported) Phenytoin Sodium Extended (Phenytoin Sodium Extended) 100 Mg Capsule, 400 MG PO QHS, (Reported) Potassium Chloride (Potassium Chloride) 10 Meq Tab.er.prt, 10 MEQ PO DAILY, (Reported) Pregabalin (Pregabalin) 300 Mg Capsule, 300 MG PO BID, (Reported) Sennosides/Docusate Sodium (Senokot-S Tablet) 1 Each Tablet, 1 TAB PO QHS, (Reported) Trazodone HCl (Trazodone HCl) 150 Mg Tablet, 150 MG PO QHS, (Reported) [Monurol] 3 , 3 GRAM PO 1XWK, (Reported) Scheduled PRN Albuterol Sulfate (Ventolin Hfa) 108 Mcg/Act Aer, 2 PUFFS INH Q4H PRN for SHORTN ESS OF BREATH, (Reported) Albuterol Sulfate (Albuterol Sulfate) 2.5 Mg/0.5 Ml Vial.neb, 2.5 MG NEB Q2HP PRN for SOB/WHEEZING Bisacodyl (Bisacodyl) 10 Mg Sup, 10 MG NV DAILY PRN for CONSTIPATION, (Reported) Ipratropium/Albuterol Sulfate (Iprat-Albut 0.5-3(2.5) mg/3 ml) 3 Ml Ampul.neb, 1 VIAL NEB Q6H PRN for SOB/WHEEZING, (Reported) Lactulose (Lactulose) 10 Gm/15 Ml Solution, 30 ML PO TID PRN for CONSTIPATION, (Reported) Mineral Oil (Mineral Oil Enema) 133 Ml Enema, 1 EA NV Q2D PRN for CONSTIPATION, (Reported) USED WHEN NO BM WITHIN 2 DAYS Mometasone Furoate (Asmanex Hfa) 100 Mcg/Act Hfa.aer.ad, 1 PUFF INH BID PRN for ASTHMA SYMPTOMS, (Reported) Morphine Sulfate (Morphine Sulfate) 10 Mg/5 Ml Solution, 2.5 ML PO Q4H PRN for PAIN, (Reported) Nystatin (Nystatin) 15 Gm Cream..g., 1 APPLIC TOP DAILY PRN for RASH, (Reported) APPLIES TO UROSTOMY Promethazine HCl (Promethazine HCl) 25 Mg Tablet, 25 MG PO Q4H PRN for NAUSEA OR VOMITING, (Reported) FOR NAUSEA RELATED TO MIGRAINES Allergies Coded Allergies: Cephalosporins (Verified Allergy, Intermediate, rash, 10/03/19) Sulfa (Sulfonamide Antibiotics) (Verified Allergy, Mild, itchy, 10/03/19) oxycodone (Verified Allergy, Mild, itchy, 10/03/19) hydrocodone (Verified Adverse Reaction, Intermediate, chest pain, 10/03/19) acetaminophen (Verified Adverse Reaction, Mild, NAUSEA, 10/03/19) Past Medical History Medical History History of recurrent urinary tract infections, most recent which with Pseudomonas and Enterococcus faecalis COPD Multiple sclerosis Seizure disorder. Neurogenic bladder and neurogenic bowel status post urostomy bag. Hypertension. Torticollis. Pseudobulbar affect. Paresthesias. 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 Herpes zoster secondary to immunosuppression. Microcytic anemia. B12 deficiency. Vitamin D deficiency. Migraines. Obesity. Gastroesophageal reflux disease (GERD) Chronic pain. Anxiety/depression. Hepatic steatosis. Surgical History Bilateral breast reduction, bilateral wrist surgery, bladder resection, hysterectomy, tubal ligation, most surgery for basal cell carcinoma resection, port placement, left ulnar implant Family History - Family history was reviewed and is currently noncontributory to the current hospitalization Social History - Patient reports the social use of alcohol, she reports occasional use of marijuana, patient reports that she has quit smoking a few years ago but was a smoker for greater than 35 years at 1-2 PPD - Denies recent travel or sick contacts - Lives with and children - Occupation; currently on disability Review of Systems Other systems 10 point review of systems complete, all negative otherwise stated in HPI Vital Signs - Vitals: BP 100/57, HR 78, RR 18, Sat 95%RA, Temp 97.1F - General: Lying in bed, No acute distress, Speaking in full sentences, AAOx3 - HEENT: NC, AT, PERRLA - CVS: RRR, +S1S2 - Lungs: Fair air entry bilaterally, Mild wheezing appreciated bilaterally, no evidence of rales / rhonchi - Abdomen: Soft, Non-distended, + urostomy stoma - tenderness noted around site - Extremities: No lower extremity edema, No calf tenderness - Neuro: No focal motor or sensory deficit - Skin: No visible rashes Laboratory Data Labs 24H Laboratory Tests 2 12/18/19 19:47: Nucleated Red Blood Cells % (auto) 0.0, Urine Color YELLOW, Urine Appearance TURBIDH, Urine pH 6.0, Urine Specific [place] 1.014, Urine Protein 1+H, Urine Glucose (Auto)(UA) NEGATIVE, Urine Ketones (Auto) NEGATIVE, Urine Blood 1+H, Urine Nitrite NEGATIVE, Urine Bilirubin NEGATIVE, Urine Urobilinogen 0.2, Urine Leukocyte Esterase (Auto) 3+H, Urine WBC (Auto) TNTCH, Urine RBC (Auto) 22H, Urine Hyaline Casts (Auto) 0, Urine Bacteria (Auto) 1+H, Urine Squamous Epithelial Cells 0, Urine Sperm (Auto) , Anion Gap 8, Glomerular Filtration Rate 49.3L, Calcium Level 8.8 12/18/19 19:58: Lactic Acid Level 1.1 CBC/BMP Laboratory Tests 12/18/19 19:47 Microbiology Microbiology 12/18/19 Blood Culture, Received Pending 12/18/19 Urine Culture, Received Pending Plan / VTE VTE Prophylaxis Ordered?: Yes Plan Plan Recurrent urinary tract infections, with history of Pseudomonas and Enterococcus faecalis UTIs - Patient has presented to the emergency room after noting that her urine output has not cleared, fevers and chills at home - Physical with evidence of tenderness around urostomy site - No leukocytosis noted; no lactic acidosis - UA consistent with infection - Blood cultures and urine cultures remain pending - Will cover with broad-spectrum antibiotics with vancomycin and meropenem - Consider consultation with infectious disease in a.m. COPD - No evidence of exacerbation - c/w inhaled therapy as ordered Multiple sclerosis - c/w Amantadine, Seizure disorder - c/w Phenytoin, Keppra Neurogenic bladder and neurogenic bowel status post urostomy bag HTN - BP well controlled - c/w BP meds with holding parameters; Metoprolol DLP - c/w Atorvastatin Hypothyroidism - c/w Levothyroxine Neuropathy / Chronic pain - c/w Pregabalin, Baclofen, Morphien Hypothermia secondary to oxcarbazepine - Currently temperatures appears within normal limits Herpes zoster secondary to immunosuppression - c/w Acyclovir suppression Microcytic anemia - Hg at baseline B12 deficiency / Vitamin D deficiency - c/w supplementation as outpatient Obesity - Complaining medical care Anxiety/depression/insomnia - c/w Trazodone, Duloxetine , Klonipine , Hydroxyzine, Aripiprazole GERD - Will c/w Omeprazole DVT prophylaxis - Will start Heparin DUSTIN MATUTE MD Dec 19, 2019 02:50
[2019-12-19] MEDS ORDERED: METAL LOCK LOOP XX ONE (03:55)
--- NOTE | 2019-12-19 05:44 | PHACANCOPD ---
PHARMACY VANCOMYCIN DOSING Pt Demographics Demographics Patient Age:54 , Weight:103.400 , Gender: female Adjusted Body Weight Date: 12/19/19, Adjusted Body Weight: [70] Kg Events Past 24 Hours Events Past 24 Hours: YES: Fever Vancomycin Vancomycin indication: E.faecalis UTI Vancomycin Target Ranges: 15-20 mcg/ml Vancomycin Load Y/N: Yes Load Dose Date Time Vancomycin Load Dose: 1.5gm Date: 12/18 Time: 2300 Vancomycin Dose Date: 12/19/19. Current Vancomycin Dose: [750mg Q12H] Intermittent Dosing?: No Labs Micro Microbiology 12/18/19 Blood Culture, Received Pending 12/18/19 Urine Culture, Received Pending Creatinine Clearance Date:12/19/19. Creatinine Clearance: [59.6 ].calculated Assessment and Plan Maintaining Current Dose?: Yes Reason for dose change: No Dose Change Pharmacist Note Pharmacist Note Date: 12/19/19. Pharmacist note:[id number] w/urostomy tube admitted w/HX of recurrent UTI(pseudomonas & E.faecalis. SCR=1.22,ht=61",wt+103.4kg(abw=70kg)Calculated CRCL=59.6. On Meropenem 1 gm ivQ8H and Pharmacy dosed Vancomycin. Vanco 1.5gm load in ED@ [id number], then will begin 750mg IV [id number]@1000. First trough is scheduled for 12/20@0900 [facility] Dec 19, 2019 05:44
[2019-12-19] MEDS: LEVOTHYROXINE 50MCG TABLET (0.05MG) PO SCH (06:20)
[2019-12-19] MEDS: HEPARIN SOD (PORCINE) 5000 UNITS/ML VIAL (J1644 PER 1000UNITS) SC SCH ×3 (06:20→21:47)
[2019-12-19] MEDS: MEROPENEM INJ 1 GM in IV 1 EA IV SCH ×3 (06:20→22:19)
[2019-12-19 07:18] LABS: BASO % 0.4 % (0.0-1.0); EOS # 0.3 10^3/uL (0.0-0.5); EOS % 3.9 % (0.0-3.0); HEMATOCRIT 35.2 % (36.0-47.0); HEMOGLOBIN 10.9 g/dl (12.0-15.5); LYMPH # 0.7 10^3/uL (1.5-5.0); LYMPH % 10.1 % (24.0-44.0); MEAN CORPUSCULAR HEMOGLOBIN 25.2 pg (27.0-33.0); MEAN CORPUSCULAR VOLUME 81.5 fl (80.0-96.0); MONO # 0.7 10^3/uL (0.0-0.8); MONO % 10.3 % (0.0-5.0); NEUTROPHILS # 5.3 10^3/uL (1.5-8.5); NEUTROPHILS % 73.8 % (36.0-66.0); PLATELET COUNT, AUTOMATED 344 10^3/uL (150-450); RED BLOOD COUNT 4.32 10^6/uL (4.00-5.40); WHITE BLOOD COUNT 7.2 10^3/uL (4.0-10.0)
[2019-12-19 07:50] LABS: CALCIUM LEVEL 9.1 MG/DL (8.5-10.1); CREATININE FOR GFR 1.23 MG/DL (0.55-1.30); GLOMERULAR FILTRATION RATE 48.8 (>51); MAGNESIUM LEVEL 2.5 MG/DL (1.8-2.4); POTASSIUM SERUM 3.9 MEQ/L (3.5-5.1)
[2019-12-19] MEDS: BUDESONIDE 180MCG INHALER (PULMICORT FLEXHALER) INH SCH ×2 (08:00→20:00)
[2019-12-19] MEDS: LEVALBUTEROL 1.25 MG/0.5 ML CONCENTRATE NEB INH SCH ×4 (08:49→20:00)
[2019-12-19] MEDS: METOPROLOL SUCC *XL* 25MG TAB (TopROL *XL*) PO SCH (09:00)
[2019-12-19] MEDS: SODIUM CHLORIDE 0.9% INJ 10 ML SYR IV SCH (09:00)
[2019-12-19] MEDS: DULoxetine 30 MG CAP (CYMBALTA) PO SCH ×2 (09:47→21:48)
[2019-12-19] MEDS: hydrOXYzine 50 MG TAB PO SCH ×2 (09:47→21:48)
[2019-12-19] MEDS: MELOXICAM (MOBIC) 7.5 MG TAB PO SCH (09:49)
[2019-12-19] MEDS: AMANTADINE 100MG TABLET PO SCH ×2 (09:49→22:11)
[2019-12-19] MEDS: BACLOFEN 10 MG TAB PO SCH ×3 (09:50→21:48)
[2019-12-19] MEDS: POTASSIUM CHLORIDE 10 MEQ SR TABLET PO SCH (09:50)
[2019-12-19] MEDS: ATORVASTATIN 20 MG TAB PO SCH (09:51)
[2019-12-19] MEDS: ACYCLOVIR 200 MG CAPSULE PO SCH ×2 (09:51→22:11)
[2019-12-19] MEDS: OMEPRAZOLE 20 MG CAP PO SCH ×2 (09:51→21:47)
[2019-12-19] MEDS: PREGABALIN 100 MG CAP (LYRICA) PO SCH ×2 (09:53→21:48)
[2019-12-19] MEDS: clonazePAM 1 MG TAB PO SCH (09:54)
[2019-12-19] MEDS: levETIRAcetam 250MG TABLET (KEPPRA) PO SCH ×2 (09:54→21:49)
[2019-12-19] MEDS ORDERED: VANCOMYCIN HCL 750 MG, VIAL MATE ADAPTER 1 EACH in D5W 250 ML IV SCH (10:00)
--- NOTE | 2019-12-19 11:16 | IPNPDOC ---
Subjective Date Seen The patient was seen on 12/19/19. Subjective Chief Complaint/HPI C/O some upper abd discomfort. NO n/v, diarrhea or constipation. Constitutional: Reports: Fever (had low grade fever prior to arrival); Denies: Chills Pulmonary: Denies: Dyspnea, Cough Gastrointestinal: Reports: Abdominal Pain; Denies: Nausea, Vomiting, Diarrhea, Constipation Genitourinary: Reports: Other Symptoms (cloudy urine in porter prior to arrival) Objective Physical Examination General Exam: Positive: Alert, No Acute Distress Chest Exam: Positive: Clear to auscultation; Negative: Rales, Rhonchi, Wheezing Heart Exam: Positive: Rate Normal, Regular Rhythm Abdomen Exam: Positive: Normal bowel sounds, Soft, Tenderness (mild upper abd tenderness) Extremity Exam: Negative: Edema Assessment /Plan Assessment CDT: Agree with note as below. Afebrile while inpatient. Appreciate ID input. Problems (1) UTI (urinary tract infection) Status: Acute Problem Text: Patient was on Fosfomycin weekly for prevention of UTIs Symptoms on admission included low grade fever (No fever here), upper abd dis comfort and weakness. U/C pending Cont IV Vanco and Meropenam for now Dr. Lobato is very familiar with patient and managing her Fosfomycin as outpatient - I will consult her (2) Immunocompromised state due to drug therapy Status: Chronic Problem Text: Ocrevus on hold (Normally takes this for MS) (3) Morbid obesity Status: Chronic (4) Presence of urostomy Status: Chronic Problem Text: with increased likelihood of bacteriuria Plan/VTE VTE Prophylaxis Ordered?: Yes (start Lovenox) VS, I&O, [facility]H, [facility] Vital Signs/I&O Vital Signs Date Time Temp Pulse Resp B/P (MAP) Pulse Ox O2 Delivery O2 Flow Rate FiO2 12/19/19 09:00 93 100/64 12/19/19 06:23 97.5 12/19/19 05:48 18 93 Room Air I&O- Last 24 Hours up to 6 AM 12/19/19 06:00 Intake Total 500 ml Balance 500 ml Laboratory Data 24H LABS Laboratory Tests 2 12/18/19 19:47: Nucleated Red Blood Cells % (auto) 0.0, Urine Color YELLOW, Urine Appearance TURBIDH, Urine pH 6.0, Urine Specific [place] 1.014, Urine Protein 1+H, Urine Glucose (Auto)(UA) NEGATIVE, Urine Ketones (Auto) NEGATIVE, Urine Blood 1+H, Urine Nitrite NEGATIVE, Urine Bilirubin NEGATIVE, Urine Urobilinogen 0.2, Urine Leukocyte Esterase (Auto) 3+H, Urine WBC (Auto) TNTCH, Urine RBC (Auto) 22H, Urine Hyaline Casts (Auto) 0, Urine Bacteria (Auto) 1+H, Urine Squamous Epithelial Cells 0, Urine Sperm (Auto) , Anion Gap 8, Glomerular Filtration Rate 49.3L, Calcium Level 8.8 12/18/19 19:58: Lactic Acid Level 1.1 12/19/19 06:46: Nucleated Red Blood Cells % (auto) 0.0, Anion Gap 5L, Glomerular Filtration Rate 48.8L, Calcium Level 9.1, Immature Granulocyte % (Auto) 1.5, Neutrophils (%) (Auto) 73.8H, Lymphocytes (%) (Auto) 10.1L, Monocytes (%) (Auto) 10.3H, Eosinophils (%) (Auto) 3.9H, Basophils (%) (Auto) 0.4, Neutrophils # (Auto) 5.3, Lymphocytes # (Auto) 0.7L, Monocytes # (Auto) 0.7, Eosinophils # (Auto) 0.3, Basophils # (Auto) 0.0, Magnesium Level 2.5H CBC/BMP Laboratory Tests 12/18/19 19:47 12/19/19 06:46 Microbiology Microbiology 12/18/19 Blood Culture, Received Pending 12/18/19 Urine Culture, Received Pending DIETER ISRAEL PA-C Dec 19, 2019 11:16 JOSHUA FANG DO Dec 20, 2019 00:52
[2019-12-19 11:30] LABS: ALBUMIN 3.1 GM/DL (3.2-5.2); BILIRUBIN,TOTAL 0.2 MG/DL (0.2-1.0); TOTAL PROTEIN 7.4 GM/DL (6.4-8.2)
[2019-12-19 13:50] VITALS: BP 132/88
[2019-12-19 16:24] LABS: C REACTIVE PROTEIN QUANTITATIV 3.63 MG/DL (0.00-0.30)
[2019-12-19] MEDS: traZODone 50 MG TAB PO SCH (21:48)
[2019-12-19] MEDS: SENOKOT S TAB PO SCH (21:49)
[2019-12-19] MEDS: ASPIRIN 81 MG ENTERIC TAB PO SCH (21:49)
[2019-12-19] MEDS: PHENYTOIN ER 100 MG CAP PO SCH (21:49)
[2019-12-19 22:00] VITALS: BP 135/97
[2019-12-19] MEDS: ARIPiprazole 2 MG TAB PO SCH (22:11)
[2019-12-19] MEDS: SODIUM CHLORIDE 0.9% INJ 10 ML SYR IV PRN (23:08)
[2019-12-20] MEDS: HEPARIN SOD (PORCINE) 5000 UNITS/ML VIAL (J1644 PER 1000UNITS) SC SCH ×3 (05:31→21:36)
[2019-12-20] MEDS: LEVOTHYROXINE 50MCG TABLET (0.05MG) PO SCH (05:31)
[2019-12-20] MEDS: MEROPENEM INJ 1 GM in IV 1 EA IV SCH ×3 (05:31→21:34)
[2019-12-20 06:00] VITALS: BP 109/70
[2019-12-20 06:07] LABS: BASO % 0.6 % (0.0-1.0); EOS # 0.3 10^3/uL (0.0-0.5); EOS % 5.9 % (0.0-3.0); HEMATOCRIT 29.3 % (36.0-47.0); HEMOGLOBIN 9.2 g/dl (12.0-15.5); LYMPH # 0.6 10^3/uL (1.5-5.0); MEAN CORPUSCULAR HEMOGLOBIN 25.1 pg (27.0-33.0); MEAN CORPUSCULAR HGB CONC 31.4 g/dl (32.0-36.5); MEAN CORPUSCULAR VOLUME 79.8 fl (80.0-96.0); MONO # 0.5 10^3/uL (0.0-0.8); MONO % 9.6 % (0.0-5.0); NEUTROPHILS # 3.9 10^3/uL (1.5-8.5); NEUTROPHILS % 70.9 % (36.0-66.0); PLATELET COUNT, AUTOMATED 268 10^3/uL (150-450); RED BLOOD COUNT 3.67 10^6/uL (4.00-5.40); WHITE BLOOD COUNT 5.4 10^3/uL (4.0-10.0)
[2019-12-20] MEDS: SODIUM CHLORIDE 0.9% INJ 10 ML SYR IV PRN (06:23)
[2019-12-20 06:36] LABS: CALCIUM LEVEL 9.1 MG/DL (8.5-10.1); CREATININE FOR GFR 1.22 MG/DL (0.55-1.30); GLOMERULAR FILTRATION RATE 49.3 (>51); MAGNESIUM LEVEL 2.5 MG/DL (1.8-2.4); POTASSIUM SERUM 4.2 MEQ/L (3.5-5.1)
[2019-12-20] MEDS: LEVALBUTEROL 1.25 MG/0.5 ML CONCENTRATE NEB INH SCH ×4 (07:47→20:32)
[2019-12-20] MEDS: BUDESONIDE 180MCG INHALER (PULMICORT FLEXHALER) INH SCH ×2 (07:47→20:00)
[2019-12-20] MEDS: MORPHINE SULFATE ORAL SOLN 10 MG/5 ML UD PO PRN ×3 (08:28→21:34)
[2019-12-20] MEDS: SODIUM CHLORIDE 0.9% INJ 10 ML SYR IV SCH (08:28)
[2019-12-20] MEDS: clonazePAM 1 MG TAB PO SCH (08:28)
[2019-12-20] MEDS: PREGABALIN 100 MG CAP (LYRICA) PO SCH ×2 (08:28→21:37)
[2019-12-20] MEDS: POTASSIUM CHLORIDE 10 MEQ SR TABLET PO SCH (08:29)
[2019-12-20] MEDS: BACLOFEN 10 MG TAB PO SCH ×3 (08:29→21:38)
[2019-12-20] MEDS: OMEPRAZOLE 20 MG CAP PO SCH ×2 (08:29→21:37)
[2019-12-20] MEDS: DULoxetine 30 MG CAP (CYMBALTA) PO SCH ×2 (08:29→21:38)
[2019-12-20] MEDS: levETIRAcetam 250MG TABLET (KEPPRA) PO SCH ×2 (08:29→21:38)
[2019-12-20] MEDS: hydrOXYzine 50 MG TAB PO SCH ×2 (08:29→21:37)
[2019-12-20] MEDS: METOPROLOL SUCC *XL* 25MG TAB (TopROL *XL*) PO SCH (08:30)
[2019-12-20] MEDS: ATORVASTATIN 20 MG TAB PO SCH (08:30)
--- NOTE | 2019-12-20 10:11 | IPNPDOC ---
Subjective Date Seen The patient was seen on 12/20/19. Subjective Chief Complaint/HPI Feels much better today. Appetite good. denies abd pain. Feels stronger Constitutional: Denies: Chills, Fever Pulmonary: Denies: Dyspnea, Cough Cardiovascular: Denies: Chest Pain, Palpitations, Orthopnea Gastrointestinal: Denies: Nausea, Vomiting, Abdominal Pain, Diarrhea, Constipation Objective Physical Examination General Exam: Positive: Alert, No Acute Distress Chest Exam: Positive: Clear to auscultation; Negative: Rales, Rhonchi, Wheezing Heart Exam: Positive: Rate Normal, Regular Rhythm Abdomen Exam: Positive: Normal bowel sounds, Soft; Negative: Tenderness Extremity Exam: Negative: Edema Assessment /Plan Problems (1) UTI (urinary tract infection) Status: Acute Problem Text: 12/20 - U/C grew >1000,000 Enterobacter Aerogenes resistent to Macrobid and Cefazolin. Patient allergic to Sulfa and Cephalosporins Currently on Meropenem and Vanco - D/C vanco Await further input from ID B/C neg (Patient was on Fosfomycin weekly since August [address] Lobato for prevention of UTIs) (2) Immunocompromised state due to drug therapy Status: Chronic Problem Text: Ocrevus on hold (Normally takes this for MS) (3) Morbid obesity Status: Chronic (4) Presence of urostomy Status: Chronic Problem Text: with increased likelihood of bacteriuria Plan/VTE VTE Prophylaxis Ordered?: Yes (start Lovenox) Plan Therapy: PT Disposition PT working with patient - needs to clear stairs prior to d/c VS, I&O, 24H, Fishbone Vital Signs/I&O Vital Signs Date Time Temp Pulse Resp B/P (MAP) Pulse Ox O2 Delivery O2 Flow Rate FiO2 12/20/19 08:58 18 12/20/19 06:00 98.1 91 109/70 (83) 93 Room Air I&O- Last 24 Hours up to 6 AM 12/20/19 06:00 Intake Total 2530 ml Output Total 1550 ml Balance 980 ml Laboratory Data 24H LABS Laboratory Tests 2 12/20/19 05:55: Immature Granulocyte % (Auto) 2.0, Neutrophils (%) (Auto) 70.9H, Lymphocytes (%) (Auto) 11.0L, Monocytes (%) (Auto) 9.6H, Eosinophils (%) (Auto) 5.9H, Basophils (%) (Auto) 0.6, Neutrophils # (Auto) 3.9, Lymphocytes # (Auto) 0.6L, Monocytes # (Auto) 0.5, Eosinophils # (Auto) 0.3, Basophils # (Auto) 0.0, Nucleated Red Blood Cells % (auto) 0.0, Anion Gap 9, Glomerular Filtration Rate 49.3L, Calcium Level 9.1, Magnesium Level 2.5H CBC/BMP Laboratory Tests 12/20/19 05:55 Microbiology Microbiology 12/18/19 Blood Culture - Preliminary, Resulted No growth after 24 hours . All specim... 12/18/19 Urine Culture - Final, Complete Enterobacter Aerogenes DIETER ISRAEL PA-C Dec 20, 2019 10:10
[2019-12-20] MEDS: MELOXICAM (MOBIC) 7.5 MG TAB PO SCH (11:39)
[2019-12-20] MEDS: ACYCLOVIR 200 MG CAPSULE PO SCH ×2 (11:39→21:36)
[2019-12-20] MEDS: AMANTADINE 100MG TABLET PO SCH ×2 (11:39→21:36)
[2019-12-20 14:00] VITALS: BP 111/70
[2019-12-20] MEDS: PHENYTOIN ER 100 MG CAP PO SCH (21:35)
[2019-12-20] MEDS: traZODone 50 MG TAB PO SCH (21:36)
[2019-12-20] MEDS: SENOKOT S TAB PO SCH (21:37)
[2019-12-20] MEDS: ASPIRIN 81 MG ENTERIC TAB PO SCH (21:38)
[2019-12-20] MEDS: ARIPiprazole 2 MG TAB PO SCH (21:38)
[2019-12-20 22:00] VITALS: BP 129/80
[2019-12-21] MEDS: MEROPENEM INJ 1 GM in IV 1 EA IV SCH ×2 (05:21→14:28)
[2019-12-21] MEDS: HEPARIN SOD (PORCINE) 5000 UNITS/ML VIAL (J1644 PER 1000UNITS) SC SCH ×2 (05:21→14:29)
[2019-12-21] MEDS: LEVOTHYROXINE 50MCG TABLET (0.05MG) PO SCH (05:40)
[2019-12-21 05:43] LABS: BASO % 0.5 % (0.0-1.0); EOS # 0.2 10^3/uL (0.0-0.5); EOS % 3.7 % (0.0-3.0); HEMATOCRIT 28.3 % (36.0-47.0); HEMOGLOBIN 8.7 g/dl (12.0-15.5); LYMPH # 0.6 10^3/uL (1.5-5.0); LYMPH % 10.4 % (24.0-44.0); MEAN CORPUSCULAR HEMOGLOBIN 24.6 pg (27.0-33.0); MEAN CORPUSCULAR HGB CONC 30.7 g/dl (32.0-36.5); MEAN CORPUSCULAR VOLUME 80.2 fl (80.0-96.0); MONO # 0.5 10^3/uL (0.0-0.8); MONO % 8.7 % (0.0-5.0); NEUTROPHILS # 4.2 10^3/uL (1.5-8.5); NEUTROPHILS % 74.9 % (36.0-66.0); PLATELET COUNT, AUTOMATED 255 10^3/uL (150-450); RED BLOOD COUNT 3.53 10^6/uL (4.00-5.40); WHITE BLOOD COUNT 5.7 10^3/uL (4.0-10.0)
[2019-12-21 06:00] VITALS: BP 101/52
[2019-12-21 06:12] LABS: CALCIUM LEVEL 8.5 MG/DL (8.5-10.1); CREATININE FOR GFR 1.08 MG/DL (0.55-1.30); GLOMERULAR FILTRATION RATE 56.7 (>51); MAGNESIUM LEVEL 2.3 MG/DL (1.8-2.4); POTASSIUM SERUM 4.5 MEQ/L (3.5-5.1)
[2019-12-21] MEDS: LEVALBUTEROL 1.25 MG/0.5 ML CONCENTRATE NEB INH SCH ×4 (07:43→19:21)
[2019-12-21] MEDS: PREGABALIN 100 MG CAP (LYRICA) PO SCH (09:03)
[2019-12-21] MEDS: DULoxetine 30 MG CAP (CYMBALTA) PO SCH (09:04)
[2019-12-21] MEDS: clonazePAM 1 MG TAB PO SCH (09:04)
[2019-12-21] MEDS: POTASSIUM CHLORIDE 10 MEQ SR TABLET PO SCH (09:04)
[2019-12-21] MEDS: AMANTADINE 100MG TABLET PO SCH (09:04)
[2019-12-21] MEDS: OMEPRAZOLE 20 MG CAP PO SCH (09:04)
[2019-12-21] MEDS: levETIRAcetam 250MG TABLET (KEPPRA) PO SCH (09:04)
[2019-12-21] MEDS: ACYCLOVIR 200 MG CAPSULE PO SCH (09:05)
[2019-12-21 09:06] VITALS: BP 121/65
[2019-12-21] MEDS: METOPROLOL SUCC *XL* 25MG TAB (TopROL *XL*) PO SCH (09:06)
[2019-12-21] MEDS: BACLOFEN 10 MG TAB PO SCH ×2 (09:07→15:43)
[2019-12-21] MEDS: MELOXICAM (MOBIC) 7.5 MG TAB PO SCH (09:07)
[2019-12-21] MEDS: ATORVASTATIN 20 MG TAB PO SCH (09:07)
[2019-12-21] MEDS: hydrOXYzine 50 MG TAB PO SCH (09:08)
[2019-12-21] MEDS: SODIUM CHLORIDE 0.9% INJ 10 ML SYR IV SCH (09:09)
[2019-12-21] MEDS: MORPHINE SULFATE ORAL SOLN 10 MG/5 ML UD PO PRN ×2 (09:23→17:47)
[2019-12-21] MEDS: LACTULOSE 20 GM/30 ML SYRUP UD PO SCH ×2 (09:24→15:43)
--- NOTE | 2019-12-21 10:27 | IPNPDOC ---
Subjective Date Seen The patient was seen on 12/21/19. Subjective Chief Complaint/HPI No BM since admission. No new complaints Constitutional: Denies: Chills, Fever Pulmonary: Denies: Dyspnea, Cough Cardiovascular: Denies: Chest Pain, Palpitations, Orthopnea Gastrointestinal: Denies: Nausea, Vomiting, Abdominal Pain, Diarrhea, Constipation Objective Physical Examination General Exam: Positive: Alert, No Acute Distress Chest Exam: Positive: Clear to auscultation; Negative: Rales, Rhonchi, Wheezing Heart Exam: Positive: Rate Normal, Regular Rhythm Abdomen Exam: Positive: Normal bowel sounds, Soft; Negative: Tenderness Extremity Exam: Negative: Edema Psych Exam: Positive: Mental status NL (Alert, oriented) Assessment /Plan Problems (1) UTI (urinary tract infection) Status: Acute Problem Text: 12/21 - U/C grew >1000,000 Enterobacter Aerogenes resistent to Macrobid and Cefazolin. Patient allergic to Sulfa and Cephalosporins Currently on Meropenem and Vanco - D/C vanco Await further input from ID (Dr. Lobato aware) to determine if plan is to send home on IV abx and for how long B/C neg (Patient was on Fosfomycin weekly since August [address] Lobato for prevention of UTIs) (2) Hepatic encephalopathy Status: Chronic Problem Text: Per patient and family at bedside she has not had a BM in a couple day and she Has tendency for ammonia level to rise if no BM for a couple days so will start Lactulose on scheduled basis TID and monitor mental status - currently lucid and appropriate (3) Immunocompromised state due to drug therapy Status: Chronic Problem Text: Ocrevus on hold (Normally takes this for MS) (4) Morbid obesity Status: Chronic (5) Presence of urostomy Status: Chronic Problem Text: with increased likelihood of bacteriuria (6) Constipation Plan/VTE VTE Prophylaxis Ordered?: Yes (start Lovenox) Plan Therapy: PT Disposition safe for d/c home per PT - Plan DC home today or tomorrow once abx regimen dec ided by Dr. Lobato VS, I&O, 24H, Fishbone Vital Signs/I&O Vital Signs Date Time Temp Pulse Resp B/P (MAP) Pulse Ox O2 Delivery O2 Flow Rate FiO2 12/21/19 09:23 17 12/21/19 09:06 111 121/65 12/21/19 06:00 97.2 95 Room Air I&O- Last 24 Hours up to 6 AM 12/21/19 06:00 Intake Total 1195 ml Output Total 1575 ml Balance -380 ml Laboratory Data 24H LABS Laboratory Tests 2 12/21/19 05:29: Immature Granulocyte % (Auto) 1.8, Neutrophils (%) (Auto) 74.9H, Lymphocytes (%) (Auto) 10.4L, Monocytes (%) (Auto) 8.7H, Eosinophils (%) (Auto) 3.7H, Basophils (%) (Auto) 0.5, Neutrophils # (Auto) 4.2, Lymphocytes # (Auto) 0.6L, Monocytes # (Auto) 0.5, Eosinophils # (Auto) 0.2, Basophils # (Auto) 0.0, Nucleated Red Blood Cells % (auto) 0.0, Anion Gap 4L, Glomerular Filtration Rate 56.7, Calcium Level 8.5, Magnesium Level 2.3 CBC/BMP Laboratory Tests 12/21/19 05:29 Microbiology Microbiology 12/18/19 Blood Culture - Preliminary, Resulted No Growth after 48 hours. All Specime... 12/18/19 Urine Culture - Final, Complete Enterobacter Aerogenes DIETER ISRAEL PA-C Dec 21, 2019 10:27
[2019-12-21 14:00] VITALS: BP 96/52
[2019-12-21] MEDS: BUDESONIDE 180MCG INHALER (PULMICORT FLEXHALER) INH SCH ×2 (14:46→19:22)
[2019-12-21 15:00] VITALS: BP 117/67
[2019-12-21] MEDS ORDERED: LEVA750T7 PO (18:22)
[2019-12-21] MEDS ORDERED: TRAZ-252 PO (18:22)
--- NOTE | 2019-12-21 21:13 | IPN ---
DATE: 12/21/2019 Elise seems to be doing better. She is in good spirits. She wants to go home. She has intermittent nausea, which is unchanged. No vomiting. No abdominal pain, diarrhea. She has had no fever or chills since hospitalization. On physical exam, temperature is 97, pulse 91, respirations 20, blood pressure 96/52, oxygen saturation (O2 sat) 94% on room air. Heart: Normal S1, S2. No murmurs. Lungs are clear. Abdomen: Soft, nontender Right side urostomy bag with urine and mucus. White count 5.7, hemoglobin 8.7, hematocrit 28.3. Sodium 140, potassium 4.5, chloride 106, bicarbonate 30, BUN 19, creatinine 1.08, glucose 93, calcium 8.5, magnesium 2.3. Urine culture had 100,000, Enterobacter aerogenes resistant to cefazolin and Macrobid. IMPRESSION: 1. Recurrent urinary tract infection. Doing much better with IV meropenem. The patient could be discharged home on oral Levaquin 500 mg daily for 7 days. 2. History of multiple sclerosis. The patient is considering doing the bone marrow transplant in [place], which is experimental. 3. History of recurrent urinary tract infection. On fosfomycin, has decreased the number of admissions to the hospital and UTI. This could be resumed as an outpatient once she has finished with her 7-day course of Levaquin. PLAN The patient could be discharged home today on PO levaquin for 7 days. MTDD
--- NOTE | 2019-12-22 06:49 | CR ---
DATE OF CONSULTATION: 12/19/2019 REASON FOR CONSULTATION: Fever in a patient with a recurrent urinary tract infection. HISTORY OF PRESENT ILLNESS: Ms. Yang is a 54-year-old female well known to me from previous hospitalization and outpatient followup who has a history of multiple sclerosis with urinary retention status post ileal conduit diversion with urostomy. The patient had been on fosfomycin for the past 3 months with decreased number of urinary tract infections. She came to the emergency room and stated that her urine output was cloudy and she was not feeling well. She had low grade fever at home up to 100.7. She has been fatigued and her body was hurting all over as if she had an infection. She denied having any vomiting, diarrhea, constipation, chest pain, shortness of breath or palpitations. She did not have a cough, but she has intermittent nausea which was unusual for. Her appetite was normal. No weight loss. The patient was admitted with a presumptive diagnosis of urinary tract infection and was started on IV vancomycin and meropenem. PAST MEDICAL HISTORY: Significant for multiple sclerosis for which she takes ocrelivumab every 6 months. She is considering having a bone marrow transplant for MS in [place], history of COPD, seizure disorder, neurogenic bladder and bowel, hypertension, torticollis, paresthesias, hypothermia from oxcarbazepine, history of herpes zoster, B12 and vitamin D deficiency, migraine headaches, obesity, gastroesophageal reflux disease, anxiety, depression, hepatic steatosis. PAST SURGICAL HISTORY: Bilateral breast reduction surgery, bladder resection, hysterectomy, urostomy, tubal ligation. FAMILY HISTORY: Nonrevealing. SOCIAL HISTORY: She lives with her . She smokes marijuana. She quit smoking a few years ago. She is on disability. PHYSICAL EXAMINATION: She is a pleasant female, chronically ill, in no acute distress. Temperature is 97, pulse 91, respirations 20, blood pressure 100/64, and O2 sat 92% on room air. Heart: Normal S1, S2. No murmurs, rubs or gallops. Lungs are clear. No wheezes or rhonchi. Abdomen: Obese, soft, nontender. Urostomy into a [place] catheter bag with urine and mucus, not significantly cloudy. No hematuria. Extremities: No edema. The patient has generalized weakness from her MS. Urine culture is pending. Blood culture is pending. No imaging studies were done this admission. LABORATORY DATA: White count 7.2, hemoglobin 10.9, hematocrit 35.2, platelet 344, 74% neutrophils, 10% lymphocytes and 10% monocytes. Sodium 141, potassium 3.9, chloride 106, bicarb 30, BUN 26, creatinine 1.23, glucose 87, calcium 9.1, lactic acid 1.9, AST 12, ALT 14, alkaline phosphatase 422, CRP 3.63. IMPRESSION: 54-year-old female with a history of MS immunocompromised who presented to the ER with low grade fever and generalized achiness possibly related to urinary tract infection. The patient is on broad-spectrum antibiotics. I would discontinue vancomycin. The patient mostly has gram-negative pathogens, usually Pseudomonas. PLAN: Once urine culture is available, will decide whether she could be switched to an oral regimen are she will need home IV antibiotics with meropenem. Discontinue IV vancomycin and continue meropenem. Will continue to follow. Thank you for the consultation. DEVORAH
[2019-12-27] MEDS ORDERED: HYDR50TA70 PO (10:11)
[2019-12-27] MEDS ORDERED: LYRI300C PO (10:11)
[2019-12-27] MEDS ORDERED: RA M500C PO (10:11)
[2019-12-27] MEDS ORDERED: TRAZ150T90 PO (10:21)
--- NOTE | 2020-01-17 02:03 | DS.PDOC ---
Discharge Summary General Date of Admission Dec 18, 2019 at 23:15 Date of Discharge December 21, 2019 Primary Care Physician: Luis M Morales MD Attending Physician: JOSHUA FANG DO Discharge Summary PROCEDURES PERFORMED DURING STAY: [None]. ADMITTING DIAGNOSES: Recurrent urinary tract infections, with history of Pseudomonas and Enterococcus faecalis UTIs COPD - No evidence of exacerbation Multiple sclerosis Seizure disorder Neurogenic bladder and neurogenic bowel status post urostomy bag HTN DLP Hypothyroidism Neuropathy / Chronic pain Hypothermia secondary to oxcarbazepine Herpes zoster secondary to immunosuppression Microcytic anemia B12 deficiency / Vitamin D deficiency Obesity Anxiety/depression/insomnia GERD DISCHARGE DIAGNOSES: (1) UTI (urinary tract infection) (2) Hepatic encephalopathy (3) Immunocompromised state due to drug therapy (4) Morbid obesity (5) Presence of urostomy (6) Constipation (7) Multiple sclerosis (8) Seizure disorder (9) COPD (10) Hypertension (11) Hypothyroidism (12) Hyperlipidemia (13) anxiety and depression (14) vitamin D deficiency (15) B12 deficiency COMPLICATIONS/CHIEF COMPLAINT: UTI. HISTORY OF PRESENT ILLNESS: Patient is a 54-year-old female with a past medical history of multiple sclerosis, recurrent UTIs (Hx of Pseudomonas and Enterococcus faecalis ) and multiple other medical problems, who was presented to the emergency room after she has reported that the output from her urostomy tube has not cleared. Patient has a history of Pseudomonas and Enterococcus faecalis urinary tract infections and has been on vancomycin and Meropenem in the past. As an outpatient she takes weekly fosfomycin doses on Wednesday. Patient reports that usually by Wednesday. Her urine output is cloudy and by Wednesday after receiving the medications it has cleared. This time however she hasnt noted that it has stopped working approximately 2 weeks ago. Over the last few day she has reported that her body has been hurting and she has been feeling more fatigued at home. She has also reported a fever of 100.7 and has noted chills. Patient denies nausea, vomiting, constipation, diarrhea, chest pain, shortness of breath or palpitations. She denies a cough. Patient reports that her appetite is normal, but has reported a weight loss that she is unable to quantify HOSPITAL COURSE: Patient was admitted to the hospital, and started on broad spectrum antibiotics. Infectious disease was consulted to help guide her care. When cultures resulted (urine grew Enterobacter aerogenes), she was discharged home on Levaquin, per ID recommendations. DISCHARGE MEDICATIONS: Please see below. ALLERGIES: Please see below. PHYSICAL EXAMINATION ON DISCHARGE: VITAL SIGNS: Please see below. GENERAL: obese female, NAD HEENT: mucous membranes moist NECK: supple CARDIOVASCULAR EXAMINATION: regular rate and rhythm RESPIRATORY EXAMINATION: clear to auscultation bilat ABDOMINAL EXAMINATION: bowel sounds positive; soft, nontender and nondistended EXTREMITIES: no edema SKIN: clean, dry, intact PSYCHIATRIC EXAMINATION: anxious LABORATORY DATA: Please see below. IMAGING: none PROGNOSIS: fair ACTIVITY: [As tolerated]. DIET: 2 gram sodium DISCHARGE PLAN: home DISPOSITION: , Self-Care. DISCHARGE INSTRUCTIONS: Take all medications as prescribed. Contact the office with fever, abdominal pain, or any other concerning symptoms. ITEMS TO FOLLOWUP ON ON OUTPATIENT: chronic medical conditions DISCHARGE CONDITION: [Stable]. TIME SPENT ON DISCHARGE: Greater than 15 minutes. Discharge Medications Scheduled Acyclovir (Acyclovir) 400 Mg Tab, 400 MG PO BID, (Reported) Amantadine HCl (Amantadine) 100 Mg Tablet, 100 MG PO BID, (Reported) Aripiprazole (Aripiprazole) 2 Mg Tablet, 2 MG PO QHS, (Reported) Aspirin (Ecotrin) 81 Mg Tablet.dr, 81 MG PO QHS, (Reported) Atorvastatin Calcium (Atorvastatin Calcium) 40 Mg Tablet, 40 MG PO DAILY, (Reported) Baclofen (Baclofen) 20 Mg Tablet, 20 MG PO TID, (Reported) Clonazepam (Clonazepam) 1 Mg Tab, 1 MG PO BID, (Reported) Duloxetine Hcl (Duloxetine HCl) 60 Mg Capsule.dr, 60 MG PO BID, (Reported) Ergocalciferol (Vitamin D2) (Vitamin D2) 50,000 Units Cap, 50,000 UNITS PO 1XWK, (Reported) FRIDAYS Hydroxyzine HCl (Hydroxyzine HCl) 50 Mg Tablet, 50 MG PO BID, (Reported) Levetiracetam (Keppra) 500 Mg Tablet, 500 MG PO BID, (Reported) Levothyroxine Sodium (Levothyroxine Sodium) 50 Mcg Tablet, 50 MCG PO QAM, (R eported) 30 MINUTES BEFORE BREAKFAST Magnesium Oxide (Magnesium) 500 Mg Capsule, 500 MG PO DAILY, (Reported) Meloxicam (Meloxicam) 15 Mg Tablet, 15 MG PO DAILY, (Reported) Metoprolol Succinate (Metoprolol Succinate) 25 Mg Tab, 25 MG PO DAILY, (Reported) Ocrelizumab (Ocrevus) 300 Mg/10 Ml Vial, Unknown Dose IV [id number], (Reported) Omeprazole (Omeprazole) 40 Mg Cap, 40 MG PO BID, (Reported) Phenytoin Sodium Extended (Phenytoin Sodium Extended) 100 Mg Capsule, 400 MG PO QHS, (Reported) Potassium Chloride (Potassium Chloride) 10 Meq Tab.er.prt, 10 MEQ PO DAILY, (Reported) Pregabalin (Lyrica) 300 Mg Capsule, 300 MG PO BID, (Reported) Sennosides/Docusate Sodium (Senokot-S Tablet) 1 Each Tablet, 1 TAB PO QHS, (Reported) Trazodone HCl (Trazodone HCl) 150 Mg Tablet, 150 MG PO QHS, (Reported) [Monurol] 3 , 3 GRAM PO 1XWK, (Reported) Scheduled PRN Albuterol Sulfate (Ventolin Hfa) 108 Mcg/Act Aer, 2 PUFFS INH Q4H PRN for SHORTNESS OF BREATH, (Reported) Bisacodyl (Bisacodyl) 10 Mg Sup, 10 MG MN DAILY PRN for CONSTIPATION, (Reported) Lactulose (Lactulose) 10 Gm/15 Ml Solution, 30 ML PO TID PRN for CONSTIPATION, (Reported) Mometasone Furoate (Asmanex Hfa) 100 Mcg/Act Hfa.aer.ad, 1 PUFF INH BID PRN for ASTHMA SYMPTOMS, (Reported) Morphine Sulfate (Morphine Sulfate) 10 Mg/5 Ml Solution, 2.5 ML PO Q4H PRN for PAIN, (Reported) Promethazine HCl (Promethazine HCl) 25 Mg Tablet, 25 MG PO Q4H PRN for NAUSEA OR VOMITING, (Reported) FOR NAUSEA RELATED TO MIGRAINES Allergies Coded Allergies: Cephalosporins (Verified Allergy, Intermediate, rash, 12/27/19) Sulfa (Sulfonamide Antibiotics) (Verified Allergy, Mild, itchy, 12/27/19) oxycodone (Verified Allergy, Mild, itchy, 12/27/19) hydrocodone (Verified Adverse Reaction, Intermediate, chest pain, 12/27/19) acetaminophen (Verified Adverse Reaction, Mild, NAUSEA, 12/27/19) JOSHUA FANG DO Jan 17, 2020 02:03
== END 2019-12-21 19:50 | disposition home or self-care (01) | DRG 690 ==
LOC: M ED 18:30 → M ED INP 23:15 → ENRESERVTM 12-19 12:55 → ENRESERVDT 12-19 12:55 → M MSPAV 12-19 14:01
PROVIDERS: ADMIT Internal Medicine; ATTEND Family Medicine
DX: N39.0 Urinary tract infection, site not specified (principal); K59.2 Neurogenic bowel, not elsewhere classified; Z68.41 Body mass index [BMI] 40.0-44.9, adult; J44.9 Chronic obstructive pulmonary disease, unspecified; G35 Multiple sclerosis; G40.909 Epilepsy, unspecified, not intractable, without status epilepticus; N31.9 Neuromuscular dysfunction of bladder, unspecified; Z93.6 Other artificial openings of urinary tract status; E78.5 Hyperlipidemia, unspecified; E03.9 Hypothyroidism, unspecified; R68.0 Hypothermia, not associated with low environmental temperature; K72.10 Chronic hepatic failure without coma; T42.1X5A Adverse effect of iminostilbenes, initial encounter; F48.2 Pseudobulbar affect; E53.8 Deficiency of other specified B group vitamins; E55.9 Vitamin D deficiency, unspecified; K76.0 Fatty (change of) liver, not elsewhere classified; G89.29 Other chronic pain; D50.9 Iron deficiency anemia, unspecified; M43.6 Torticollis; B96.89 Other specified bacterial agents as the cause of diseases classified elsewhere; K21.9 Gastro-esophageal reflux disease without esophagitis; Z88.1 Allergy status to other antibiotic agents; Z88.2 Allergy status to sulfonamides; Z88.5 Allergy status to narcotic agent; Z88.6 Allergy status to analgesic agent; Z79.82 Long term (current) use of aspirin; Z79.899 Other long term (current) drug therapy; Z85.828 Personal history of other malignant neoplasm of skin; Z87.891 Personal history of nicotine dependence

== ENCOUNTER 2020-01-01 11:21 | Day surgery (SDC) | payer MEDICARE, BC, OTHER ==
[~2020-01-01] VITALS: Ht 154.9 cm; Wt 102.6 kg
[~2020-01-01 11:21] MED LIST changes: +LEVA750T7 PO; +LIDOCAINE 2% INJ 100 MG/5 ML SDV (FOR ANES.) As Ordered ONE; +MORP10SO PO; +MORP1SOL3 PO; -MORP1SOL4 PO; +NS 1,000 ML IV SCH; +RA M500C PO; +SENO8.6T10 PO; +TRAZ150T90 PO; +propofoL 500 MG/50 ML VIAL As Ordered ONE
--- NOTE | 2020-01-01 13:55 | ROOR ---
Patient Name: Elise Yang Procedure Date: 01/01/2020 12:48 PM Date of : 1965 Age: 54 Room: [facility] Gender: Female Note Status: Finalized Procedure: Upper GI endoscopy Indications: Iron deficiency anemia Providers: Ruben Stover MD Referring MD: Luis M Morales MD Requesting Provider: Medicines: Monitored Anesthesia Care Complications: No immediate complications. Procedure: Pre-Anesthesia Assessment: - Prior to the procedure, a History and Physical was performed, and patient medications and allergies were reviewed. The patient is competent. The risks and benefits of the procedure and the sedation options and risks were discussed with the patient. All questions were answered and informed consent was obtained. Patient identification and proposed procedure were verified by the physician, the nurse and the anesthesiologist in the procedure room. Mental Status Examination: alert and oriented. Airway Examination: normal oropharyngeal airway and neck mobility. Respiratory Examination: clear to auscultation. CV Examination: normal. Prophylactic Antibiotics: The patient does not require prophylactic antibiotics. Prior Anticoagulants: The patient has taken no previous anticoagulant or antiplatelet agents. ASA Grade Assessment: III - A patient with severe systemic disease. After reviewing the risks and benefits, the patient was deemed in satisfactory condition to undergo the procedure. The anesthesia plan was to use monitored anesthesia care (MAC). Immediately prior to administration of medications, the patient was re-assessed for adequacy to receive sedatives. The heart rate, respiratory rate, oxygen saturations, blood pressure, adequacy of pulmonary ventilation, and response to care were monitored throughout the procedure. The physical status of the patient was re-assessed after the procedure. The Endoscope was introduced through the mouth, and advanced to the second part of duodenum. The upper GI endoscopy was accomplished without difficulty. The patient tolerated the procedure well. Findings: The examined esophagus was normal. The Z-line was regular and was found in the distal esophagus. Scattered minimal inflammation characterized by erosions, friability and granularity was found in the gastric antrum. Biopsies were taken with a cold forceps for Helicobacter pylori testing. Verification of patient identification for the specimen was done by the physician and nurse using the patient's name, date and medical record number. Estimated blood loss was minimal. The duodenal bulb and second portion of the duodenum were normal. Biopsies for histology were taken with a cold forceps for evaluation of celiac disease. Impression: - Normal esophagus. - Z-line regular, in the distal esophagus. - Gastritis. Biopsied. - Normal duodenal bulb and second portion of the duodenum. Biopsied. Recommendation: - Patient has a contact number available for emergencies. The signs and symptoms of potential delayed complications were discussed with the patient. Return to normal activities tomorrow. Written discharge instructions were provided to the patient. - Resume previous diet. - Continue present medications. - Await pathology results. - Telephone GI clinic for pathology results in 2 weeks. - Return to primary care physician. Ruben Stover MD Ruben Stover MD 01/01/2020 1:54:53 PM Electronically signed by Ruben Stover MD Number of Addenda: 0 Note Initiated On: 01/01/2020 12:48 PM Estimated Blood Loss: Estimated blood loss was minimal.
--- NOTE | 2020-01-01 13:59 | ROOR ---
Patient Name: Elise Yang Procedure Date: 01/01/2020 12:49 PM Date of : 1965 Age: 54 Room: [facility] Gender: Female Note Status: Finalized Procedure: Colonoscopy Indications: Iron deficiency anemia Providers: Ruben Stover MD Referring MD: Luis M Morales MD Requesting Provider: Medicines: Monitored Anesthesia Care Complications: No immediate complications. Procedure: Pre-Anesthesia Assessment: - Prior to the procedure, a History and Physical was performed, and patient medications and allergies were reviewed. The patient is competent. The risks and benefits of the procedure and the sedation options and risks were discussed with the patient. All questions were answered and informed consent was obtained. Patient identification and proposed procedure were verified by the physician, the nurse and the anesthesiologist in the procedure room. Mental Status Examination: normal. Airway Examination: normal oropharyngeal airway and neck mobility. Respiratory Examination: clear to auscultation. CV Examination: normal. Prophylactic Antibiotics: The patient does not require prophylactic antibiotics. Prior Anticoagulants: The patient has taken no previous anticoagulant or antiplatelet agents. ASA Grade Assessment: III - A patient with severe systemic disease. After reviewing the risks and benefits, the patient was deemed in satisfactory condition to undergo the procedure. The anesthesia plan was to use monitored anesthesia care (MAC). Immediately prior to administration of medications, the patient was re-assessed for adequacy to receive sedatives. The heart rate, respiratory rate, oxygen saturations, blood pressure, adequacy of pulmonary ventilation, and response to care were monitored throughout the procedure. The physical status of the patient was re-assessed after the procedure. The Colonoscope was introduced through the anus and advanced to the terminal ileum, with identification of the appendiceal orifice and IC valve. The colonoscopy was performed without difficulty. The patient tolerated the procedure well. The quality of the bowel preparation was fair. The terminal ileum, ileocecal valve, appendiceal orifice, and rectum were photographed. Scope insertion time was 5 minutes. Scope withdrawal time was 12 minutes. The total duration of the procedure was 18 minutes. Findings: The perianal and digital rectal examinations were normal. The terminal ileum appeared normal. Four sessile polyps were found in the transverse colon and ascending colon. The polyps were 5 to 8 mm in size. These polyps were removed with a cold snare. Resection and retrieval were complete. For hemostasis, one hemostatic clip was successfully placed. There was no bleeding at the end of the procedure. Verification of patient identification for the specimen was done by the physician and nurse using the patient's name, date and medical record number. Estimated blood loss was minimal. Multiple small and large-mouthed diverticula were found from sigmoid to descending colon. There was no evidence of diverticular bleeding. Non-bleeding external and internal hemorrhoids were found during retroflexion. The hemorrhoids were medium-sized. Impression: - Preparation of the colon was fair. - The examined portion of the ileum was normal. - Four 5 to 8 mm polyps in the transverse colon and in the ascending colon, removed with a cold snare. Resected and retrieved. Clip was placed. - Moderate diverticulosis from sigmoid to descending colon. There was no evidence of diverticular bleeding. - Non-bleeding external and internal hemorrhoids. Recommendation: - Patient has a contact number available for emergencies. The signs and symptoms of potential delayed complications were discussed with the patient. Return to normal activities tomorrow. Written discharge instructions were provided to the patient. - High fiber diet. - Continue present medications. - Await pathology results. - Repeat colonoscopy in 3 - 5 years for surveillance based on pathology results. - Telephone GI clinic for pathology results in 2 weeks. - Return to primary care physician. Ruben Stover MD Ruben Stover MD 01/01/2020 1:59:24 PM Electronically signed by Ruben Stover MD Number of Addenda: 0 Note Initiated On: 01/01/2020 12:49 PM Estimated Blood Loss: Estimated blood loss was minimal.
[2020-01-01 14:14] VITALS: BP 133/89
== END 2020-01-01 14:17 | disposition home or self-care (01) ==
LOC: M OPP 11:21
PROVIDERS: ATTEND Internal Medicine Gastroenterology
DX: D50.9 Iron deficiency anemia, unspecified (principal); K64.8 Other hemorrhoids; D12.3 Benign neoplasm of transverse colon; D12.2 Benign neoplasm of ascending colon; K57.30 Diverticulosis of large intestine without perforation or abscess without bleeding; K29.70 Gastritis, unspecified, without bleeding; G47.30 Sleep apnea, unspecified; I10 Essential (primary) hypertension; Z92.21 Personal history of antineoplastic chemotherapy; K21.9 Gastro-esophageal reflux disease without esophagitis; G35 Multiple sclerosis; F41.9 Anxiety disorder, unspecified; Z45.2 Encounter for adjustment and management of vascular access device; Z95.828 Presence of other vascular implants and grafts; R56.9 Unspecified convulsions; G43.909 Migraine, unspecified, not intractable, without status migrainosus; R06.2 Wheezing; R06.83 Snoring; Z87.891 Personal history of nicotine dependence; Z79.82 Long term (current) use of aspirin; Z79.899 Other long term (current) drug therapy; Z88.8 Allergy status to other drugs, medicaments and biological substances; Z88.2 Allergy status to sulfonamides; Z88.6 Allergy status to analgesic agent; Z88.5 Allergy status to narcotic agent

== ENCOUNTER → 2020-03-05 | Outpatient (CLI) | payer MEDICARE, BC, OTHER, MEDICAID ==
[~2020-03-05] MED LIST changes: -LIDOCAINE 2% INJ 100 MG/5 ML SDV (FOR ANES.) As Ordered ONE; -MERO1INJ IV; +MERO1VIA3 IV; -MORP1SOL3 PO; +MORP1SOL4 PO; -NS 1,000 ML IV SCH; -propofoL 500 MG/50 ML VIAL As Ordered ONE
[2020-03-05 13:25] LABS: HEMATOCRIT 35.2 % (36.0-47.0); HEMOGLOBIN 11.2 g/dl (12.0-15.5); MEAN CORPUSCULAR HEMOGLOBIN 24.9 pg (27.0-33.0); MEAN CORPUSCULAR HGB CONC 31.8 g/dl (32.0-36.5); MEAN CORPUSCULAR VOLUME 78.4 fl (80.0-96.0); PLATELET COUNT, AUTOMATED 171 10^3/uL (150-450); RED BLOOD COUNT 4.49 10^6/uL (4.00-5.40); WHITE BLOOD COUNT 11.8 10^3/uL (4.0-10.0)
[2020-03-05 13:44] LABS: ALBUMIN 3.3 GM/DL (3.2-5.2); ALT/SGPT 15 U/L (12-78); BILIRUBIN,DIRECT < 0.1 MG/DL (0.0-0.2); BILIRUBIN,TOTAL 0.3 MG/DL (0.2-1.0); FOLATE 8.2 NG/ML; IRON (FE) 86 UG/DL (50-170); PERCENT SATURATION 35.4 % (13.2-45.0); TOTAL IRON BINDING CAPACITY 243 UG/DL (250-450); TOTAL PROTEIN 6.4 GM/DL (6.4-8.2); VITAMIN B12 LEVEL > 2000 PG/ML
[2020-03-05 14:10] LABS: BASOPHILS 4 % (0-1); BLAST CELLS 2 % (0-0); LYMPHOCYTES 7 % (16-44); METAMYELOCYTES 7 % (0-0); MONOCYTES 4 % (0-5); MYELOCYTES 7 % (0-0); NEUTROPHILS 56 % (28-66); PLATELET ESTIMATE NORMAL (NORMAL)
[2020-03-06 14:07] LABS: ALPHA 1 ANTITRYPSIN 200 mg/dL (101-187); ANTI-MITOCHONDRIAL ANTIBODY <20.0 Units (0.0-20.0); ANTI-SMOOTH MUSCLE ANTIBODY 5 Units (0-19); ERYTHROPOIETIN 9.7 mIU/mL (2.6-18.5); LIVER-KIDNEY MICROSOMAL ABY <20.1 Units (0.0-20.0)
== END ==
LOC: M LABDRWAD 11:02
PROVIDERS: ATTEND Internal Medicine Gastroenterology
DX: R10.10 Upper abdominal pain, unspecified (principal); Z79.899 Other long term (current) drug therapy
CPT/HCPCS: 36415; 80076; 82103; 82390; 82607; 82668; 82746; 82977; 83550; 85025; 86255; 86376; G0463

== ENCOUNTER → 2020-05-03 | Outpatient (REF) | payer MEDICARE, OTHER, MEDICAID ==
[~2020-05-03] MED LIST changes: -LACT10SO29 PO; +LACT20EL PO
[2020-05-03 11:35] LABS: BASO % 0.3 % (0.0-1.0); EOS # 0.2 10^3/uL (0.0-0.5); EOS % 2.7 % (0.0-3.0); HEMATOCRIT 34.4 % (36.0-47.0); HEMOGLOBIN 11.4 g/dl (12.0-15.5); LYMPH # 0.6 10^3/uL (1.5-5.0); LYMPH % 9.6 % (24.0-44.0); MEAN CORPUSCULAR HEMOGLOBIN 29.5 pg (27.0-33.0); MEAN CORPUSCULAR HGB CONC 33.1 g/dl (32.0-36.5); MEAN CORPUSCULAR VOLUME 89.1 fl (80.0-96.0); MONO # 0.7 10^3/uL (0.0-0.8); MONO % 10.6 % (0.0-5.0); NEUTROPHILS # 4.8 10^3/uL (1.5-8.5); NEUTROPHILS % 76.5 % (36.0-66.0); PLATELET COUNT, AUTOMATED 205 10^3/uL (150-450); RED BLOOD COUNT 3.86 10^6/uL (4.00-5.40); WHITE BLOOD COUNT 6.2 10^3/uL (4.0-10.0)
[2020-05-03 12:23] LABS: ALBUMIN 3.3 GM/DL (3.2-5.2); BILIRUBIN,TOTAL 0.3 MG/DL (0.2-1.0); CALCIUM LEVEL 8.8 MG/DL (8.5-10.1); CREATININE FOR GFR 1.55 MG/DL (0.55-1.30); GLOMERULAR FILTRATION RATE 37.4 (>51); POTASSIUM SERUM 3.9 MEQ/L (3.5-5.1); TOTAL PROTEIN 6.5 GM/DL (6.4-8.2)
== END ==
LOC: M SHH 11:14
PROVIDERS: ATTEND Internal Medicine Hematology & Oncology
DX: Z94.84 Stem cells transplant status (principal)

== ENCOUNTER → 2020-09-27 | Outpatient (REF) | payer MEDICARE, OTHER, MEDICAID ==
[2020-09-27 18:27] LABS: BASO % 0.3 % (0.0-1.0); EOS # 0.3 10^3/uL (0.0-0.5); HEMATOCRIT 36.1 % (36.0-47.0); HEMOGLOBIN 11.1 g/dl (12.0-15.5); LYMPH # 0.5 10^3/uL (1.5-5.0); LYMPH % 5.5 % (24.0-44.0); MEAN CORPUSCULAR HEMOGLOBIN 26.4 pg (27.0-33.0); MEAN CORPUSCULAR HGB CONC 30.7 g/dl (32.0-36.5); MONO # 0.7 10^3/uL (0.0-0.8); MONO % 7.5 % (0.0-5.0); NEUTROPHILS # 7.2 10^3/uL (1.5-8.5); NEUTROPHILS % 82.9 % (36.0-66.0); PLATELET COUNT, AUTOMATED 274 10^3/uL (150-450); WHITE BLOOD COUNT 8.7 10^3/uL (4.0-10.0)
[2020-09-27 19:09] LABS: BLOOD UREA NITROGEN 39 MG/DL (7-18); CARBON DIOXIDE LEVEL 23 MEQ/L (21-32); CHLORIDE LEVEL 107 MEQ/L (98-107); CREATININE FOR GFR 1.95 MG/DL (0.55-1.30); GLOMERULAR FILTRATION RATE 28.6 (>51); GLUCOSE, FASTING 91 MG/DL (70-100); POTASSIUM SERUM 4.7 MEQ/L (3.5-5.1); SODIUM LEVEL 139 MEQ/L (136-145)
[2020-09-27 19:10] LABS: ALBUMIN 3.4 GM/DL (3.2-5.2); ALT/SGPT 22 U/L (12-78); BILIRUBIN,TOTAL 0.3 MG/DL (0.2-1.0); CHOLESTEROL LEVEL 160 MG/DL (<200); CHOLESTEROL RISK RATIO 4.102 (<5); FREE T4 0.87 NG/DL (0.76-1.46); HDL CHOLESTEROL 39 MG/DL (>40); NON-HDL-C 121 MG/DL; TOTAL PROTEIN 6.7 GM/DL (6.4-8.2); TRIGLYCERIDES LEVEL 405 MG/DL (<150)
== END ==
LOC: M SFHCADAM 15:09
PROVIDERS: ATTEND Family Medicine
DX: E03.9 Hypothyroidism, unspecified (principal); I10 Essential (primary) hypertension; E78.2 Mixed hyperlipidemia; Z94.84 Stem cells transplant status

== ENCOUNTER 2020-12-18 16:41 | Inpatient (IN) | payer MEDICARE, BC, OTHER, MEDICAID ==
[~2020-12-18] VITALS: Ht 154.9 cm; Wt 99.5 kg
[~2020-12-18 16:41] MED LIST changes: +SIME80CH5 PO; -SIME80TA PO; +[UNRECOGNIZED DRUG - CODE] IJ; -[UNRECOGNIZED DRUG - CODE] IJ
[2020-12-18] MEDS ORDERED: NALOXONE 2MG/2ML SYRINGE (J2310 PER 1MG) As Ordered ONE (16:52)
[2020-12-18] MEDS ORDERED: NALOXONE INJ 0.4MG/1ML VIAL (J2310 PER 1MG) IV STA (16:56)
[2020-12-18 17:21] LABS: BASO % 0.4 % (0.0-1.0); EOS # 0.3 10^3/uL (0.0-0.5); EOS % 3.7 % (0.0-3.0); HEMATOCRIT 32.6 % (36.0-47.0); HEMOGLOBIN 10.2 g/dl (12.0-15.5); LYMPH # 0.8 10^3/uL (1.5-5.0); LYMPH % 10.3 % (24.0-44.0); MEAN CORPUSCULAR HEMOGLOBIN 27.1 pg (27.0-33.0); MEAN CORPUSCULAR HGB CONC 31.3 g/dl (32.0-36.5); MEAN CORPUSCULAR VOLUME 86.7 fl (80.0-96.0); MONO # 0.6 10^3/uL (0.0-0.8); MONO % 8.8 % (0.0-5.0); NEUTROPHILS # 5.5 10^3/uL (1.5-8.5); NEUTROPHILS % 75.7 % (36.0-66.0); PLATELET COUNT, AUTOMATED 252 10^3/uL (150-450); RED BLOOD COUNT 3.76 10^6/uL (4.00-5.40); WHITE BLOOD COUNT 7.3 10^3/uL (4.0-10.0)
--- NOTE | 2020-12-18 17:23 | REP ---
INDICATION: Altered Mental Status. COMPARISON: 07/05/2019. TECHNIQUE: SINGLE PORTABLE AP VIEW OF THE CHEST WAS PERFORMED. FINDINGS: There is mild elevation of the left hemidiaphragm. There is no acute infiltrate. There is poor ventilation. Heart mediastinum are grossly unchanged. A right central venous catheter is seen with the tip at the junction of the superior vena cava and right atrium. IMPRESSION: No acute infiltrate. <Electronically signed by Bran Chirinos > 12/18/20 [id number]
[2020-12-18 17:27] LABS: ABG BASE EXCESS -7.4 (-2.0-2.0); ABG HCO3 17.7 MEQ/L (22.0-26.0); ABG O2 SATURATION 98.6 % (95.0-99.0); ABG PARTIAL PRESSURE CO2 34.1 mmHg (35.0-45.0); ABG PARTIAL PRESSURE O2 140.1 mmHg (75.0-100.0); ABG STANDARD HCO3 18.4 MEQ/L (22.0-26.0); ABG TOTAL CO2 18.7 MEQ/L (22.0-29.0); ABG pH (ARTERIAL) 7.333 UNITS (7.350-7.450)
--- OUTSIDE RECORDS SUMMARY | 2020-12-18 17:33 | CCD | Continuity of Care Document ---
Author Author Elise CAMPOS Organization Unknown Address [address] [place] [id number] Phone [phone] Care Team Providers Care Director Of Blood Name Role Phone Abel Swanson AUTM [phone] Luis M Morales M.D. AUTM [phone] Salvatore Lobato M.D. AUTM [phone] Meeta Watson M.D. AUTM [phone] Problems Description No Information Available Social History Type Date Description Comments Sex Unknown Tobacco Use Start: Unknown End: Unknown Former Cigarette Smo ker 2 Packs Daily Pt smoked for 30 years, she quit in 2017 Smoking Status Reviewed: 10/11/20 Former Cigarette Smoker 2 Pac ks Daily Pt smoked for 30 years, she quit in 2017 ETOH Use Occ Alcohol Intake Recreational Drug Use Sporadically uses Marijuan a Allergies, Adverse Reactions, Alerts Active Allergies Reaction Severity Comments Date Acetaminophen / Hydrocodone Chest discomfort 08/31/2018 Acetaminophen Nausea 08/31/2018 Percocet vomiting 08/31/2018 Sulfa Itching 08/31/2018 Cefprozil Itching rash 08/31/2018 Zonisamide Itching rash 08/31/2018 Medications Active Medications SIG Qnty Indications Ordering Provide r Date Pantoprazole Sodium 40mg Tablets D R Take One Tablet By Mouth Twice A Day Unknown Fentanyl 25mcg/HR Patches 72HR apply 1 patch topically every 72 hours Unknown 0 Monurol 3gm Packet 1 dissolve packet in 90-120cc water, consume(single dose) once a week Unknown Eq Senna-S 8.6-50mg Tablets Unknown Potassium 75mg Tablets Unknown Magnesium Oxide 400mg Tablets 1 by mouth every day Unknown Levetiracetam 500mg Tablets take 1 tablet (500 mg total) by mouth 2 (two) times a day Unkn own Atorvastatin Calcium 40mg Tablets 1 by mouth every day Unknown Aspirin [address] 1 by mouth every day Unknown Vitamin D3 Ultra Potency [id number] Tablets 1 tablet by mouth each week Unknown Aripiprazole 2mg Tablets Take One Tablet By Mouth Every Day Unknown Phenytoin Sodium Extended 100mg Ca psules Take 4 Capsules By Mouth AT Bedtime Unknown Levothyroxine Sodium 50mcg Tablets Take 1 Tablet By Mouth Every Morning On An Empty Stomach Unknown Promethazine HCL 25mg Tablets Sujit Momin MD Hydroxyzine HCL 50mg Tablets Take One Tablet By Mouth Four Times A Day as Needed Unkno wn Amantadine HCL 100mg Capsules daily Unknown Trazodone HCL 150mg Tablets TK 1/2 To 1 T PO qd hs prn Unknown Clonazepam 1mg Tablets Abel Swanson M. D. Meloxicam 15mg Tablets TK 1 T PO D Unknown Lyrica 300mg Capsules Unknown Divalproex Sodium 500mg Tablets DR TK 1 To 2 TS PO hs Unknown Baclofen 20mg Tablets 1 tab by mouth four times a day 90tabs Unknown Acyclovir 400mg Tablets Unknown Immunizations Description No Information Available Vital Signs Date Vital Result Comment 10/11/2020 3:23pm Height 61.5 inches 5'1.50" Weight 226.00 lb Weight 102.514 kg BMI (Body Mass Index) 42.0 kg/m2 BP Systolic 120 mmHg BP Diastolic 83 mmHg Heart Rate 98 /min 09/28/2019 11:25am Height 61.5 inches 5'1.50" Weight 212.00 lb Weight 96.163 kg BMI (Body Mass Index) 39.4 kg/m2 BP Systolic 94 mmHg BP Diastolic 66 mmHg Heart Rate 93 /min Results Test Acquired Date Facility Test Result H/L Range Note Basic Metabolic Panel 10/11/2020 [employer] [facility] [place] [address] [phone] Creatinine 1.85 mg/dL High 0.57-1.11 Glucose 125.0 mg/dL High 70.0-99.0 Co2 21.0 mmol/L Low 22.0-31.0 Calcium 8.8 mg/dL 8.4-10.2 BUN 38.0 mg/dL High 7.0-24.0 BUN/Creat Ratio 20.5 Na 142.0 mmol/L 136.0-145.0 K 4.3 mmol/L 3.6-5.2 Cl 107.0 mmol/L 98.0-108.0 Anion Gap 18.3 eGFR - Descent 33.6 Low >60.0 eGFR -- Non- Descent 27.7 Low >60.0 Procedures Description No Information Available Medical Devices Description No Information Available Encounters Type Date Location Provider Dx Diagnosis Office Visit 10/11/2020 3:30p [facility] Deloris Chopra NP N13.39 Other hydronephrosis N31.9 Neuromuscular dysfunction of bladder, unspecified Z87.440 Personal history of urinary (tract) infections Assessments Date Code Description Provider 10/11/2020 N13.39 Other hydronephrosis Deloris gordon NP 10/11/2020 N31.9 Neuromuscular dysfunction of joelle dder, unspecified Deloris Chopra NP 10/11/2020 Z87.440 Personal history of urinary (tra ct) infections Deloris Chopra NP 10/11/2020 N13.39 Other hydronephrosis NM US 10/11/2020 N31.9 Neuromuscular dysfunction of joelle dder, unspecified NM US 10/11/2020 N13.39 Other hydronephrosis Kevin bhatt MD 10/11/2020 N31.9 Neuromuscular dysfunction of joelle dder, unspecified Kevin Roach MD Plan of Treatment Future Appointment(s):* 04/10/2021 2:45 pm - Deloris Chopra NP at [facility] 10/11/2020 - Deloris Chopra NP* N13.39 Other hydronephrosis* New Labs:* BMP, Ordered: 10/11/20 * Comments:* She has bilateral chronic hydronephrosis. Diuretic renal scan in September 2019 showed no evidence of obstruction. We are continuing to manage her conservatively. Sonogram is unchanged. Her BMP was drawn today and is pending. She will return in 6 months with a repeat BMP. * Follow up:* 6 months with BMP * N31.9 Neuromuscular dysfunction of bladder, unspecified* Comments:* She underwent cystectomy with ileal conduit in 2016. * Z87.440 Personal history of urinary (tract) infections* Comments:* She is managed by infectious disease in [place] and is now on Monurol weekly. Functional Status Description No Information Available Mental Status Description No Information Available Referrals Description No Information Available
--- OUTSIDE RECORDS SUMMARY | 2020-12-18 17:33 | CCD ---
Author Author [facility] Organization [facility] Address Unknown Phone Unavailable Care Team Providers Care Ballet Soloist Name Role Phone Luis M Morales Unavailable PROBLEMS Type Condition ICD9-CM Code [id number] Code Onset Dates Condition S tatus SNOMED Code Notes Problem Mixed hyperlipidemia E78.2 Active 621480821 Problem Seizure disorder G40.909 Active 203665891 Problem Iron deficiency E61.1 Active 40742560 Problem Vitamin D deficiency E55.9 Active 46417217 Problem Neurogenic bladder N31.9 Active 250472196 Problem Hypomagnesemia E83.42 Active 202515982 Problem Slow transit constipation K59.01 Active 061206 07 Problem HTN, goal below 130/80 I10 Active 91243150 Problem Mild persistent asthma without complication J45.30 Active 186354324 Problem Hypothyroidism (acquired) E03.9 Active 794136 002 Problem Low CD4 cell count determined by flow cytometry D7 2.9 Active 768276373 Problem Hyperammonemia E72.20 Active 3272022 Problem Wheelchair bound Z99.3 Active 319891946 Problem Microcytic anemia D50.9 Active 769400014 Problem Fatty liver disease, nonalcoholic K76.0 Active 580679240 Problem Migraine without status migr ainosus, not intractable, unspecified migraine type G43.909 Active 20484499 Problem Pseudomonas infection A49.8 Active 26006093 Problem Recurrent urinary tract infection N39.0 Active 017159093 Problem 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 Ac tive 055802664 Problem Depression with anxiety F41.8 Active 84199916 6 Problem Stem cells transplant status Z94.84 Active 161 787028 Problem MS (multiple sclerosis) G35 Active 33429457 Problem Chronic pain disorder G89.4 Active 789589226 Problem Lumbago with sciatica, left side M54.42 Active 329147812 Problem Lumbago with sciatica, right side M54.41 Active 761628512 Problem Anemia, chronic disease D63.8 Active 66041604 6 Problem Low back pain at multiple sites M54.5 Active 074820537 ALLERGIES Allergen (clinical drug ingredient) Drug/Non Drug Allergy do cumented on EMR Reaction Allergy Type Onset Date Status Sulfa (for allergy use only) Itching all over Drug Allergy Active acetaminophen / oxycodone Percocet([facility] Code:[address]-71) Proje ctile vomiting Drug Allergy Active Acetaminophen Nausea Drug Allergy Active acetaminophen / hydrocodone Hydrocodone-Acetaminophen([facility] Co de:[address]-06) Chest pain Drug Allergy Active ENCOUNTERS from 1967 to 2020-11-11 Encounter Location Date Provider Diagnosis [address] [address] Oct, Luis M Morales Hx of allogeneic stem cell transplant Z9 4.84 and Seizure disorder G40.909 IMMUNIZATIONS Vaccine Route Administration Date Status Influenza (18 yrs & older) Flublok IM Intramuscular Oct 17, 2019 Administered Influenza (18 yrs & older) Flublok IM Intramuscular Sep 04, 2019 Administered Influenza (6mo & up) Fluzone IM Intramuscular Sep 06, 2017 Ad ministered SOCIAL HISTORY Tobacco Use: Social History Observation Description Date Details (start date - stop date) Former Smoker Sex Assigned At : Social History Observation Description Sex Assigned At Unknown Education: Question Answer Notes Level of Education: Finished High School Language: Question Answer Notes Languages spoken: [place] Islander Jain: Question Answer Notes Jain 21 Denominational Sexual Hx: Question Answer Notes Had sex in the last 12 months (vaginal, oral, or anal)? No Have you ever had an STD? No Alcohol Screening: Question Answer Notes Did you have a drink containing alcohol in the past year? Ye s Points 1 Interpretation Negative How often did you have six or more drinks on one occas ion in the past year? Never (0 points) How many drinks did you have on a typica l day when you were drinking in the past year? 1 or 2 (0 points) How often did you have a drink containing alcohol in t he past year? Monthly or less (1 point) Tobacco Use: Question Answer Notes Are you a: former smoker How long has it been since you last smoked? 1-3 months REASON FOR REFERRAL No Information VITAL SIGNS No information MEDICATIONS Medication SIG (Take, Route, Frequency, Duration) Notes Start Da te End Date Status Potassium Chloride CR 10 mEq 1 tab orally Daily for 90 day(s) Oct, Active Ergocalciferol 16797 UNIT 1 capsule Orally once a week on for 90 day(s) Jul, Active Senokot S 8.6-50 MG 1 tablet in the evening as n eeded Orally twice daily as needed for 90 day(s) Nov, Active Baclofen 20 MG 40mg Orally BID Activ e Pantoprazole Sodium 40 MG 1 tablet Orally bid for 30 day(s) Aug, Active Promethazine HCl 25 MG 1 tablet Orally every 4 hour s as needed for nausea related to migraine headaches for 30 Days Active Ondansetron HCl 8 MG 1 tablet as needed Orally Once a day for 30 day( s) Active Keppra 500 MG 1 tablet Orally Twice a day for 90 days Active Atorvastatin Calcium 40 MG 1 tablet Orally Once a day for 90 day (s) May, Active HydrOXYzine HCl 50 1 tablet as needed Orally twice daily for 90 day(s ) Active Duloxetine HCl 60 MG 1 capsule Orally twice daily for 90 day(s) Active Monurol 3 GM 1 packet Orally weekly for 90 day(s) Active Phenytoin Sodium Extended 100 MG 4 tabs Orally at bedtime Active Daraprim 25 mg 1 tablet Orally every other day Active Acyclovir 400 MG 1 tablet Orally Twice a day for 90 days Active Aripiprazole 2 1 tablet Orally Once a day for 90 day(s) Active Asmanex HFA 100 MCG/ACT 2 puffs Inhalation BID for 30 Days Active Baclofen 20 MG 1 tab Orally three times daily Active Fentanyl 12 MCG/HR 2 patch to skin Transdermal q 3 days Active Lyrica 300 MG 1 capsule Orally Twice a day. Code D for 90 Aug, Active Amantadine HCl 100 MG 1 cap Orally Twice a day Active TraZODone HCl 150 MG 1 tablet at bedtime Orally Once a day Active Albuterol Sulfate HFA 108 (90 Base) MCG/ACT 2 puffs as needed Inhalation every 4 hrs for 30 Days Active Synthroid 50 MCG 1 tablet on an empty stomach in the morning Orally Once a day for 90 day(s) Active Morphine Sulfate 10 MG/5ML 2.5 -5 ml orally four times daily as needed- MDD 20 ml for 30 days May, Not-Taking Aspirin 81 MG 1 tablet Orally Once a day for 30 day(s) Jul, Active Meloxicam 15 MG 1 tablet Orally Once a day for 90 day(s) Active Clonazepam 1 mg 1 tablet Orally bid Active PROCEDURES No Information RESULTS No Results REASON FOR VISIT keppra/ MEDICAL (GENERAL) HISTORY Type Description Date Medical History [facility] 08/16: full code, trial vent/IVF/TF Medical History MS (relapsing)- Dr Rony el (neuro) in [facility]; Neuro UR; underwent autologous stem-cell transplant in [place] 02/15 Medical History Seizure disorder - Dr Rony Avila (radha ro) in [facility] Medical History Neurogenic bladder/ neurogen ic bowel - Dr Marshall (urology) in [facility] Medical History HTN Medical History torticollis- Dr Rony Avila (neuro) in [facility] Medical History pseudobulbar affect- Dr Rony Avila (n euro) in [facility] Medical History paresthesias Medical History hyponatremia secondary to oxcarbazine Medical History multi-dermal shingles secondary to immun osuppression Medical History microcytic anemia Medical History B12 deficiency Medical History vitamin D deficiency Medical History migraines Medical History Obesity; Sleep study with Dr Swapnil Lerma in [place], [place]. No sleep apnea Medical History Pseudobulbar affect Medical History chronic low back pain, CT 08/17 showed L2 sclerosis, no fx Medical History recurrent UTI--pseudomonas, enterococcal faecalis--sees Dr Lobato/ID Medical History autologous stem cell transpl ant in [place] 02/15; followed by DR banda at [facility]/Onc, who will be revaccinating pt s/p ASCT Surgical History Breast recuction 1991 Surgical History B/L Wrist surgery - Dr Adkins - [place] Surgical History Bladder removal/ urostomy - Dr Valentine ([facility]) 06/2017 Surgical History Hysterectomy Surgical History Tubal Ligation Surgical History Moehs for Basal cell Ca - no se, Leg, shoulder, neck - Dr Alcantara -[place], Dr Alonso - [place] Surgical History Port placement for chemo and steroids for MS (has piece of metal in heart from previous port that was not retrievable) Surgical History EGD (neg bx), colonoscopy (adenomatous p olyps) 01/18 Surgical History HSCT--stem cell transplant 02/15 Hospitalization History Urostomy 06/2017 Hospitalization History Stoma for self catheterization 07/18 16 Hospitalization History Infection 11/2014 Hospitalization History MS flare 2012 Hospitalization History Attempted port removal and retreival Hospitalization History Altered mood d/t UTI 06/2019 Hospitalization History UTI [place] 02/10- Goals Section No Information Health Concerns No Information MEDICAL EQUIPMENT No Information MENTAL STATUS No Information FUNCTIONAL STATUS No Information ASSESSMENTS Encounter Date Diagnosis Assessment Notes Treatment Notes Treatm ent Clinical Notes Oct, Hx of allogeneic stem cell transplant (ICD-10 - Z94.84) Oct, Seizure disorder (ICD-10 - G40.909) PLAN OF TREATMENT Medication Medication Name Sig Start Date Stop Date Daraprim 25 mg 1 tablet Orally every other day Clonazepam 1 mg 1 tablet Orally bid Phenytoin Sodium Extended 100 MG 4 tabs Orally at bedtime Amantadine HCl 100 MG 1 cap Orally Twice a day Acyclovir 400 MG 1 tablet Orally Twice a day for 90 days Baclofen 20 MG 1 tab Orally three times daily Keppra 500 MG 1 tablet Orally Twice a day for 90 days Pantoprazole Sodium 40 MG 1 tablet Orally bid for 30 day(s) 2019 Next Appt Details Provider Name:Luis M Morales, 2020-11 01:15:00 PM, [address], [address], Provider Name:Luis M Morales, 2021-02 01:15:00 PM, [address], [address], Insurance Providers Payer Name Payer Address Payer Phone Insured Name Patient Relati onship to Insured Coverage Start Date Coverage End Date [facility] [address] [facility] [id number] [phone] MONI YANG self MEDICAID [employer] [address] [facility] [address] MONI YANG MEDICARE Part A and B [address] [facility] [address] MONI YANG self
--- OUTSIDE RECORDS SUMMARY | 2020-12-18 17:33 | CCD ---
Author Author [facility] Organization [facility] Address Unknown Phone Unavailable Care Team Providers Care Calender Supervisor Name Role Phone Luis M Morales Unavailable PROBLEMS Type Condition ICD9-CM Code FQA03-EB Code Onset Dates Condition S tatus SNOMED Code Notes Problem Mixed hyperlipidemia E78.2 Active 871293454 Problem Seizure disorder G40.909 Active 028580322 Problem Iron deficiency E61.1 Active 52875221 Problem Vitamin D deficiency E55.9 Active 15649309 Problem Neurogenic bladder N31.9 Active 662006707 Problem Hypomagnesemia E83.42 Active 528174174 Problem Slow transit constipation K59.01 Active 301664 07 Problem HTN, goal below 130/80 I10 Active 31631169 Problem Mild persistent asthma without complication J45.30 Active 297722679 Problem Hypothyroidism (acquired) E03.9 Active 573402 002 Problem Low CD4 cell count determined by flow cytometry D7 2.9 Active 942988448 Problem Hyperammonemia E72.20 Active 7405008 Problem Wheelchair bound Z99.3 Active 478188536 Problem Microcytic anemia D50.9 Active 179697436 Problem Fatty liver disease, nonalcoholic K76.0 Active 378827915 Problem Migraine without status migr ainosus, not intractable, unspecified migraine type G43.909 Active 37015899 Problem Pseudomonas infection A49.8 Active 90544324 Problem Recurrent urinary tract infection N39.0 Active 387112340 Problem 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 Ac tive 544696134 Problem Depression with anxiety F41.8 Active 19410400 6 Problem Stem cells transplant status Z94.84 Active 161 313304 Problem MS (multiple sclerosis) G35 Active 63838073 Problem Chronic pain disorder G89.4 Active 017155336 Problem Lumbago with sciatica, left side M54.42 Active 292034238 Problem Lumbago with sciatica, right side M54.41 Active 520553942 Problem Anemia, chronic disease D63.8 Active 62783157 6 Problem Low back pain at multiple sites M54.5 Active 722946643 ALLERGIES Allergen (clinical drug ingredient) Drug/Non Drug Allergy do cumented on EMR Reaction Allergy Type Onset Date Status Sulfa (for allergy use only) Itching all over Drug Allergy Active acetaminophen / oxycodone Percocet([facility] Code:[address]-61) Proje ctile vomiting Drug Allergy Active Acetaminophen Nausea Drug Allergy Active acetaminophen / hydrocodone Hydrocodone-Acetaminophen([facility] Co de:[address]-66) Chest pain Drug Allergy Active ENCOUNTERS from 1967 to 2020-10-08 Encounter Location Date Provider Diagnosis [facility] [address] [place] [address] Aug, Mervin Morales MS (multiple sclerosis) G35 ; Neurogenic bladder N31.9 ; Wheelchair bound Z99.3 ; Seizure disorder G40.909 ; 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 ; HTN, goal below 130/80 I10 ; Hypothyroidism (acquired) E03.9 ; Mixed hyperlipidemia E78.2 and Esophagitis K20.90 IMMUNIZATIONS Vaccine Route Administration Date Status Influenza [...] School Language: Question Answer Notes Languages spoken: Jamaican Moravian: Question Answer Notes Moravian 21 [employer] Sexual Hx: Question Answer Notes Had sex [...] REASON FOR REFERRAL No Information VITAL SIGNS Weight 227 lbs Aug, Height 5'1.5" in Aug, BMI 42.19 kg/m2 Aug, Heart Rate 121 /min Aug, Respiratory Rate 18 /min Aug, Temperature 97.9 degrees Fahrenheit Aug, Oximetry 98 Aug, Blood pressure systolic 112 mm Hg Aug, Blood pressure diastolic 62 mm Hg Aug, MEDICATIONS Medication SIG (Take, Route, Frequency, Duration) Start Date En d Date Status Senokot S 8.6-50 MG 1 tablet in the evening as n eeded Orally twice daily as needed for 90 day(s) Nov, Active Baclofen 20 MG 40mg Orally BID Active TraZODone HCl 150 MG 1 tablet at bedtime Orally Once a day Active Lyrica 300 MG 1 capsule Orally Twice a day. Code D for 90 Aug, 020 Active Ondansetron HCl 8 MG 1 tablet as needed Orally Once a day for 30 da y(s) Active Promethazine HCl 25 MG 1 tablet Orally every 4 hour s as needed for nausea related to migraine headaches for 30 Days Active Potassium Chloride CR 10 mEq 1 tab orally Daily for 90 day(s) 2017 Active Ergocalciferol 93812 UNIT 1 capsule Orally once a week on for 90 day(s) Jul, Active Atorvastatin Calcium 40 MG 1 tablet Orally Once a day for 90 day(s) May, Active Pantoprazole Sodium 40 MG 1 tablet Orally bid for 30 day(s) Aug, Active Duloxetine HCl 60 MG 1 capsule Orally twice daily for 90 day(s) Active Albuterol Sulfate HFA 108 (90 Base) MCG/ACT 2 puffs as needed Inhalation every 4 hrs for 30 Days Active Asmanex HFA 100 MCG/ACT 2 puffs Inhalation BID for 30 Days Active Aspirin 81 MG 1 tablet Orally Once a day for 30 day(s) Jul, Active Monurol 3 GM 1 packet Orally weekly for 90 day(s) Active Fentanyl 12 MCG/HR 2 patch to skin Transdermal q 3 days Active Daraprim 25 mg 1 tablet Orally every other day Active Phenytoin Sodium Extended 100 MG 4 tabs Orally at bedtime Active HydrOXYzine HCl 50 1 tablet as needed Orally twice daily for 90 day (s) Active Aripiprazole 2 1 tablet Orally Once a day for 90 day(s) Active Synthroid 50 MCG 1 tablet on an empty stomach in the morning Orally Once a day for 90 day(s) Active Baclofen 20 MG 1 tab Orally three times daily Active Amantadine HCl 100 MG 1 cap Orally Twice a day Active Acyclovir 400 MG 1 tablet Orally Twice a day Active Keppra 500 MG 1 tablet Orally Twice a day Active Morphine Sulfate 10 MG/5ML 2.5 -5 ml orally four times daily as needed- MDD 20 ml for 30 days May, Not-Taking Meloxicam 15 MG 1 tablet Orally Once a day for 90 day(s) Active Clonazepam 1 mg 1 tablet Orally bid Activ e PROCEDURES No Information RESULTS REASON FOR VISIT 3 month MEDICAL (GENERAL) HISTORY Type Description Date Medical History [facility] 08/16: full code, trial vent/IVF/TF Medical History MS (relapsing)- Dr Rony el (neuro) in [facility]; Neuro UR; underwent autologous stem-cell transplant in [place] 02/15 Medical History Seizure disorder - Dr Rony Avila (radha ro) in [facility] Medical History Neurogenic bladder/ neurogen ic bowel - Dr Marshall (urology) in [facility] Medical History HTN Medical History torticollis- Dr Rony Avila (neuro) in [facility] Medical History pseudobulbar affect- Dr Rony Avila (n euro) in [facility] Medical History paresthesias Medical History hyponatremia secondary to oxcarbazine Medical History multi-dermal shingles secondary to immun osuppression Medical History microcytic anemia Medical History B12 deficiency Medical History vitamin D deficiency Medical History migraines Medical History Obesity; Sleep study with Dr Swapnil Lerma in [place], [place]. No sleep apnea Medical History Pseudobulbar affect Medical History chronic low back pain, CT 08/17 showed L2 sclerosis, no fx Medical History recurrent UTI--pseudomonas, enterococcal faecalis--sees Dr Lobato/ID Medical History autologous stem cell transpl ant in [place] 02/15; followed by DR banda at [facility]/Onc, who will be revaccinating pt s/p ASCT Surgical History Breast recuction 1991 Surgical History B/L Wrist surgery - Dr Adkins [facility] Surgical History Bladder removal/ urostomy - Dr Valentine ([facility]) 06/2017 Surgical History Hysterectomy Surgical History Tubal Ligation Surgical History Moehs for Basal cell Ca - no se, Leg, shoulder, neck - Dr Alcantara -[place], Dr Alonso - [place] Surgical History Port placement for chemo and [...] mood d/t UTI 06/2019 Hospitalization History UTI [place] 02/10- Goals Section No Information Health Concerns No Information MEDICAL EQUIPMENT No Information MENTAL STATUS No Information FUNCTIONAL STATUS No Information ASSESSMENTS Encounter Date Diagnosis Notes Aug, Esophagitis (ICD-10 - K20.90) Aug, Mixed hyperlipidemia (ICD-10 - E78.2) Aug, Hx of allogeneic stem cell transplant (I CD-10 - Z94.84) Aug, Seizure disorder (ICD-10 - G40.909) Aug, Hypothyroidism (acquired) (ICD-10 - E03. 9) Aug, HTN, goal below 130/80 (ICD-10 - I10) Aug, Neurogenic bladder (ICD-10 - N31.9) Aug, MS (multiple sclerosis) (ICD-10 - G35) Aug, Wheelchair bound (ICD-10 - Z99.3) PLAN OF TREATMENT Medication Medication Name Sig Start Date Stop Date Keppra 500 MG 1 tablet Orally Twice a day Clonazepam 1 mg 1 tablet Orally bid Daraprim 25 mg 1 tablet Orally every other day Acyclovir 400 MG 1 tablet Orally Twice a day Phenytoin Sodium Extended 100 MG 4 tabs Orally at bedtime Amantadine HCl 100 MG 1 cap Orally Twice a day Pantoprazole Sodium 40 MG 1 tablet Orally bid for 30 day(s) 30 O 2019 Baclofen 20 MG 1 tab Orally three times daily Treatment Notes Assessment Notes Clinical Notes MS (multiple sclerosis) She discontinued OCREVIS 600 mg IV every 6 months. Patient ihad hematopoietic stem cell transplantation at [facility] in [facility] according to success rate is 78%. She will follow-up every 3 months with neurologist at [facility]. Hx of allogeneic stem cell transplant Farooq syed will need vaccination on 06/17/20 she will need tetanus pertussis diphtheria 3 doses monthly Haemophilus influenza 2 doses monthly polio 3 doses hepatitis B vaccine 3 doses .In the fall would karel mmend pneumococcal vaccine and [id number] month after transplant she will need MMR vaccination which would be 02/15/2022 Next Appt Details 3 Months, 6 Months Reason: Provider Name:Luis M Carmen, 2020-11 01:15:00 PM, [address] [place] [address], [address], Provider Name:Luis M Carmen, 2021-02 01:15:00 PM, [address], [place], [address], Insurance Providers Payer Name Payer Address Payer Phone Insured Name Patient Relati onship to Insured Coverage Start Date Coverage End Date [facility] [address] [facility] [id number] MONI YANG MEDICAID [employer] [address] [facility] [id number] MONI YANG MEDICARE Part A and B [address] [facility] [phone] MONI YANG
--- OUTSIDE RECORDS SUMMARY | 2020-12-18 17:33 | CCD | Continuity of Care Document ---
Author Author Elise CAMPOS Organization Unknown Address [address] [place] [address] Phone [phone] Care Team Providers Care Facility Maintenance Worker Name Role Phone Abel Swanson AUTM Luis M Morales M.D. AUTM [phone] Salvatore Lobato M.D. AUTM [phone] Meeta Watson M.D. AUTM [phone] Problems Description No Information Available Social History [...] every day Unknown Vitamin D3 Ultra Potency 14328Isvv Tablets 1 tablet by mouth each week [...] Range Note Basic Metabolic Panel 10/11/2020 Associated Director Of Purchasing [facility] [place] [address] [phone] Creatinine 1.85 mg/dL High 0.57-1.11 Glucose 125.0 mg/dL High 70.0-99.0 Co2 21.0 mmol/L Low 22.0-31.0 Calcium 8.8 mg/dL 8.4-10.2 BUN 38.0 mg/dL High 7.0-24.0 BUN/Creat Ratio 20.5 Na 142.0 mmol/L 136.0-145.0 K 4.3 mmol/L 3.6-5.2 Cl 107.0 mmol/L 98.0-108.0 Anion Gap 18.3 eGFR - Descent 33.6 Low >60.0 eGFR -- Non- Descent 27.7 Low >60.0 Procedures Date Code Description Status 10/11/2020 23970 Ultrasound Retro Renal Real Time With Image Limited Tech Completed 10/11/2020 68625 Ultrasound Retro Renal Real Time With Image Limited Tech Completed Medical Devices Description No Information Available Encounters Type Date Location Provider Dx Diagnosis Office Visit 10/11/2020 3:30p [facility] Deloris Chopra NP N13.39 Other hydronephrosis N31.9 Neuromuscular dysfunction of bladder, unspecified Z87.440 Personal history of urinary (tract) infections Assessments Date Code Description Provider 10/11/2020 N13.39 Other hydronephrosis Tylor coffey MD 10/11/2020 N13.39 Other hydronephrosis [place] [facility] 10/11/2020 N31.9 Neuromuscular dysfunction of joelle dder, unspecified Tylor Graves MD 10/11/2020 N13.39 Other hydronephrosis Deloris gordon NP 10/11/2020 N13.30 Unspecified hydronephrosis Devonte Graves MD 10/11/2020 N31.9 Neuromuscular dysfunction of joelle dder, unspecified [place] [facility] 10/11/2020 N31.9 Neuromuscular dysfunction of joelle dder, unspecified Deloris Chopra NP 10/11/2020 N13.30 Unspecified hydronephrosis [place] US 10/11/2020 Z87.440 Personal history of urinary (tra ct) infections Deloris Chopra NP 10/11/2020 N13.39 Other hydronephrosis Kevin bhatt MD 10/11/2020 N31.9 Neuromuscular dysfunction of joelle dder, unspecified Kevin Roach MD Plan of Treatment Future Appointment(s):* 04/10/2021 2:45 pm - Deloris Chopra NP at [facility] 10/11/2020 - Deloris Chopra NP* [...] She is managed by infectious disease in [place] and is now on Monurol weekly. Functional Status Description No Information Available Mental Status Description No Information Available Referrals Description No Information Available
--- OUTSIDE RECORDS SUMMARY | 2020-12-18 17:33 | CCD | Continuity of Care Document ---
Author Author Elise CHOPRA HOT PATCHER Organization Unknown Address [address] [place] [address] [address] [place] [address] Phone [phone] Care Team Providers Care Bonsai Tender Name Role Phone Abel Swanson AUTM [phone] Luis M Morales M.D. AUTM [phone] Salvatore Lobato M.D. AUTM [phone] Meeta Watson M.D. AUTM [phone] Problems Description No Information Available Social History [...] every day Unknown Vitamin D3 Ultra Potency [id number] Tablets 1 tablet by mouth each week [...] Range Note Basic Metabolic Panel 10/11/2020 [employer] [address] [place] [id number] [phone] Creatinine 1.85 mg/dL High 0.57-1.11 Glucose 125.0 [...] Dx Diagnosis Office Visit 10/11/2020 3:30p [facility] Deloris Chopra NP [...] pm - Deloris Chopra NP at [facility] 10/11/2020 - Deloris [...] She is managed by infectious disease in [place] and is now on Monurol weekly. Functional Status Description No Information Available Mental Status Description No Information Available Referrals Description No Information Available
--- OUTSIDE RECORDS SUMMARY | 2020-12-18 17:33 | CCD ---
Continuity of Care Document (CCD) Created on: 10/13/2020 Elise Yang External Reference #: [id number] : [id number] Sex: Female Author Author Elise ROACH MD Organization Unknown Address [address] [place] [address] Phone [phone] Care Team Providers Care Speech Language Pathologist Assistant Name Role Phone Abel Swanosn AUTM [phone] Luis M Morales M.D. AUTM [phone] Salvaotre Lobato M.D. AUTM [phone] Meeta Watson M.D. AUTM [phone] Problems Description No Information Available Social History [...] every day Unknown Vitamin D3 Ultra Potency [id number] Tablets 1 tablet by mouth each week [...] Range Note Basic Metabolic Panel 10/11/2020 [employer] [facility] [place] [address] [phone] Creatinine 1.85 mg/dL High 0.57-1.11 Glucose 125.0 [...] Provider Dx Diagnosis Office Visit 10/11/2020 3:30p [facility] Deloris Chopra NP [...] 2:45 pm - Deloris Chopra NP at [facility] 10/11/2020 - Deloris [...] She is managed by infectious disease in [place] and is now on Monurol weekly. Functional Status Description No Information Available Mental Status Description No Information Available Referrals Description No Information Available
--- OUTSIDE RECORDS SUMMARY | 2020-12-18 17:34 | CCD ---
Author Author [facility] Organization [facility] Address Unknown Phone Unavailable Care Team Providers Care Reliability Technologist Name Role Phone Mary Herndon MD Unavailable Unavailable Mary Herndon MD Unavailable Unavailable Mary Herndon MD Unavailable Unavailable Mary Herndon MD Unavailable Unavailable Mary Herndon MD Unavailable Unavailable Mary Herndon MD Unavailable Unavailable Mary Herndon MD Unavailable Unavailable Mary Herndon MD Unavailable Unavailable Mary Herndon MD Unavailable Unavailable Mary Herndon MD Unavailable Unavailable Mary Herndon MD Unavailable Unavailable Mary Herndon MD Unavailable Unavailable Mary Herndon MD Unavailable Unavailable Mary Herndon MD Unavailable Unavailable Mary Herndon MD Unavailable Unavailable Mary Herndon MD Unavailable Unavailable Mary Herndon MD Unavailable Unavailable Mary Herndon MD Unavailable Unavailable Mary Herndon MD Unavailable Unavailable Mary Herndon MD Unavailable Unavailable White, F Bhavik MD Unavailable Unavailable White, F Bhavik MD Unavailable Unavailable White, F Bhavik MD Unavailable Unavailable White, F Bhavik MD Unavailable Unavailable White, F Bhavik MD Unavailable Unavailable White, F Bhavik MD Unavailable Unavailable White, F Bhavik MD Unavailable Unavailable White, F Bhavik MD Unavailable Unavailable White, F Bhavik MD Unavailable Unavailable White, F Bhavik MD Unavailable Unavailable White, F Bhavik MD Unavailable Unavailable White, F Bhavik MD Unavailable Unavailable White, F Bhavik MD Unavailable Unavailable White, F Bhavik MD Unavailable Unavailable White, F Bhavik MD Unavailable Unavailable White, F Bhavik MD Unavailable Unavailable White, F Bhavik MD Unavailable Unavailable White, F Bhavik MD Unavailable Unavailable White, F Bhavik MD Unavailable Unavailable White, F Bhavik MD Unavailable Unavailable White, F Bhavik MD Unavailable Unavailable White, F Bhavik MD Unavailable Unavailable White, F Bhavik MD Unavailable Unavailable White, F Bhavik MD Unavailable Unavailable White, F Bhavik MD Unavailable Unavailable White, F Bhavik MD Unavailable Unavailable White, F Bhavik MD Unavailable Unavailable White, F Bhavik MD Unavailable Unavailable White, F Bhavik MD Unavailable Unavailable White, F Bhavik MD Unavailable Unavailable White, F Bhavik MD Unavailable Unavailable White, F Bhavik MD Unavailable Unavailable White, F Bhavik MD Unavailable Unavailable White, F Bhavik MD Unavailable Unavailable White, F Bhavik MD Unavailable Unavailable White, F Bhavik MD Unavailable Unavailable White, F Bhavik MD Unavailable Unavailable White, F Bhavik MD Unavailable Unavailable White, F Bhavik MD Unavailable Unavailable White, F Bhavik MD Unavailable Unavailable White, F Bhavik MD Unavailable Unavailable White, F Bhavik MD Unavailable Unavailable White, F Bhavik MD Unavailable Unavailable White, F Bhavik MD Unavailable Unavailable White, F Bhavik MD Unavailable Unavailable White, F Bhavik MD Unavailable Unavailable White, F Bhavik MD Unavailable Unavailable White, F Bhavik MD Unavailable Unavailable White, F Bhavik MD Unavailable Unavailable White, F Bhavik MD Unavailable Unavailable White, F Bhavik MD Unavailable Unavailable White, F Bhavik MD Unavailable Unavailable Katrina, F Bhavik MD Unavailable Unavailable Yahir LEON MD Unavailable Unavailable Yahir LEON MD Unavailable Unavailable Yahir LEON MD Unavailable Unavailable Yahir LEON MD Unavailable Unavailable Yahir LEON MD Unavailable Unavailable Yahir LEON MD Unavailable Unavailable Yahir LEON MD Unavailable Unavailable Yahir LEON MD Unavailable Unavailable Yahir LEON MD Unavailable Unavailable Yahir LEON MD Unavailable Unavailable LEON, C KENA MD Unavailable Unavailable LEON, C KENA MD Unavailable Unavailable LEON, C KENA MD Unavailable Unavailable LEON, C KENA MD Unavailable Unavailable LEON, C KENA MD Unavailable Unavailable LEON, C KENA MD Unavailable Unavailable LEON, C KENA MD Unavailable Unavailable LEON, C KENA MD Unavailable Unavailable LEON, C KENA MD Unavailable Unavailable LEON, C KENA MD Unavailable Unavailable LEON, C KENA MD Unavailable Unavailable LEON, C KENA MD Unavailable Unavailable LEON, C KENA MD Unavailable Unavailable LEON, C KENA MD Unavailable Unavailable LEON, C KENA MD Unavailable Unavailable LEON, C KENA MD Unavailable Unavailable LEON, C KENA MD Unavailable Unavailable LEON, C KENA MD Unavailable Unavailable LEON, C KENA MD Unavailable Unavailable LEON, C KENA MD Unavailable Unavailable LEON, C KENA MD Unavailable Unavailable LEON, C KENA MD Unavailable Unavailable LEON, C KENA MD Unavailable Unavailable LEON, C KENA MD Unavailable Unavailable LEON, C KENA MD Unavailable Unavailable LEON, C KENA MD Unavailable Unavailable LEON, C KENA MD Unavailable Unavailable LEON, C KENA MD Unavailable Unavailable LEON, C KENA MD Unavailable Unavailable LEON, C KENA MD Unavailable Unavailable LEON, C KENA MD Unavailable Unavailable LEON, C KENA MD Unavailable Unavailable LEON, C KENA MD Unavailable Unavailable LEON, C KENA MD Unavailable Unavailable LEON, C KENA MD Unavailable Unavailable LEON, C KENA MD Unavailable Unavailable LEON, C KENA MD Unavailable Unavailable LEON, C KENA MD Unavailable Unavailable LEON, C KENA MD Unavailable Unavailable LEON, C KENA MD Unavailable Unavailable LEON, C KENA MD Unavailable Unavailable LEON, C KENA MD Unavailable Unavailable LEON, C KENA MD Unavailable Unavailable LEON, C KENA MD Unavailable Unavailable LEON, C KENA MD Unavailable Unavailable LEON, C KENA MD Unavailable Unavailable LEON, C KENA MD Unavailable Unavailable LEON, C KENA MD Unavailable Unavailable LEON, C KENA MD Unavailable Unavailable LEON, C KENA MD Unavailable Unavailable LEON, C KENA MD Unavailable Unavailable LEON, C KENA MD Unavailable Unavailable Chopra, A Deloris AUTOMATION AND CONTROLS MANAGER Unavailable Unavailable Chopra, A Deloris AUTOMATION AND CONTROLS MANAGER Unavailable Unavailable Chopra, A Deloris AUTOMATION AND CONTROLS MANAGER Unavailable Unavailable Chopra, A Deloris AUTOMATION AND CONTROLS MANAGER Unavailable Unavailable Chopra, A Deloris AUTOMATION AND CONTROLS MANAGER Unavailable Unavailable Chopra, A Deloris AUTOMATION AND CONTROLS MANAGER Unavailable Unavailable Chopra, A Deloris AUTOMATION AND CONTROLS MANAGER Unavailable Unavailable Chopra, A Deloris AUTOMATION AND CONTROLS MANAGER Unavailable Unavailable Chopra, A Deloris AUTOMATION AND CONTROLS MANAGER Unavailable Unavailable Chopra, A Deloris AUTOMATION AND CONTROLS MANAGER Unavailable Unavailable Chopra, A Deloris AUTOMATION AND CONTROLS MANAGER Unavailable Unavailable Chopra, A Deloris AUTOMATION AND CONTROLS MANAGER Unavailable Unavailable Chopra, A Deloris AUTOMATION AND CONTROLS MANAGER Unavailable Unavailable Chopra, A Deloris AUTOMATION AND CONTROLS MANAGER Unavailable Unavailable Chopra, A Deloris AUTOMATION AND CONTROLS MANAGER Unavailable Unavailable Chopra, A Deloris AUTOMATION AND CONTROLS MANAGER Unavailable Unavailable Chorpa, A Deloris AUTOMATION AND CONTROLS MANAGER Unavailable Unavailable Chopra, A Deloris AUTOMATION AND CONTROLS MANAGER Unavailable Unavailable Chopra, A Deloris AUTOMATION AND CONTROLS MANAGER Unavailable Unavailable Chopra, A Deloris AUTOMATION AND CONTROLS MANAGER Unavailable Unavailable Chopra, A Deloris AUTOMATION AND CONTROLS MANAGER Unavailable Unavailable Chpora, A Deloris AUTOMATION AND CONTROLS MANAGER Unavailable Unavailable Chopra, A Deloris AUTOMATION AND CONTROLS MANAGER Unavailable Unavailable Chopra, A Deloris AUTOMATION AND CONTROLS MANAGER Unavailable Unavailable Chopar, A Deloris AUTOMATION AND CONTROLS MANAGER Unavailable Unavailable Chopra, A Deloris AUTOMATION AND CONTROLS MANAGER Unavailable Unavailable Chopra, A Deloris AUTOMATION AND CONTROLS MANAGER Unavailable Unavailable Chopra, A Deloris AUTOMATION AND CONTROLS MANAGER Unavailable Unavailable Chopra, A Deloris AUTOMATION AND CONTROLS MANAGER Unavailable Unavailable Chopra, A Deloris AUTOMATION AND CONTROLS MANAGER Unavailable Unavailable Chopra, A Deloris AUTOMATION AND CONTROLS MANAGER Unavailable Unavailable Chopra, A Deloris AUTOMATION AND CONTROLS MANAGER Unavailable Unavailable Chopra, A Deloris AUTOMATION AND CONTROLS MANAGER Unavailable Unavailable Chopra, A Deloris AUTOMATION AND CONTROLS MANAGER Unavailable Unavailable Chopra, A Deloris AUTOMATION AND CONTROLS MANAGER Unavailable Unavailable Chopra, A Deloris AUTOMATION AND CONTROLS MANAGER Unavailable Unavailable Chopra, A Deloris AUTOMATION AND CONTROLS MANAGER Unavailable Unavailable Chopra, A Deloris AUTOMATION AND CONTROLS MANAGER Unavailable Unavailable Chopra, A Deloris AUTOMATION AND CONTROLS MANAGER Unavailable Unavailable Chopra, A Deloris AUTOMATION AND CONTROLS MANAGER Unavailable Unavailable Chopra, A Deloris AUTOMATION AND CONTROLS MANAGER Unavailable Unavailable Chopra, A Deloris AUTOMATION AND CONTROLS MANAGER Unavailable Unavailable Chopra, A Deloris AUTOMATION AND CONTROLS MANAGER Unavailable Unavailable Chopra, A Deloris AUTOMATION AND CONTROLS MANAGER Unavailable Unavailable Chopra, A Deloris AUTOMATION AND CONTROLS MANAGER Unavailable Unavailable Chopra, A Deloris AUTOMATION AND CONTROLS MANAGER Unavailable Unavailable Chopra, A Deloris AUTOMATION AND CONTROLS MANAGER Unavailable Unavailable Chopra, A Dleoris AUTOMATION AND CONTROLS MANAGER Unavailable Unavailable Chopra, A Deloris AUTOMATION AND CONTROLS MANAGER Unavailable Unavailable ALIASES , DEFAULT / GENERIC / UNKNOWN PROVIDER * Unavailable Unavailable ALIASES , DEFAULT / GENERIC / UNKNOWN PROVIDER * Unavailable Unavailable ALIASES , DEFAULT / GENERIC / UNKNOWN PROVIDER * Unavailable Unavailable ALIASES , DEFAULT / GENERIC / UNKNOWN PROVIDER * Unavailable Unavailable ALIASES , DEFAULT / GENERIC / UNKNOWN PROVIDER * Unavailable Unavailable ALIASES , DEFAULT / GENERIC / UNKNOWN PROVIDER * Unavailable Unavailable ALIASES , DEFAULT / GENERIC / UNKNOWN PROVIDER * Unavailable Unavailable ALIASES , DEFAULT / GENERIC / UNKNOWN PROVIDER * Unavailable Unavailable ALIASES , DEFAULT / GENERIC / UNKNOWN PROVIDER * Unavailable Unavailable ALIASES , DEFAULT / GENERIC / UNKNOWN PROVIDER * Unavailable Unavailable ALIASES , DEFAULT / GENERIC / UNKNOWN PROVIDER * Unavailable Unavailable ALIASES , DEFAULT / GENERIC / UNKNOWN PROVIDER * Unavailable Unavailable ALIASES , DEFAULT / GENERIC / UNKNOWN PROVIDER * Unavailable Unavailable ALIASES , DEFAULT / GENERIC / UNKNOWN PROVIDER * Unavailable Unavailable ALIASES , DEFAULT / GENERIC / UNKNOWN PROVIDER * Unavailable Unavailable ALIASES , DEFAULT / GENERIC / UNKNOWN PROVIDER * Unavailable Unavailable ALIASES , DEFAULT / GENERIC / UNKNOWN PROVIDER * Unavailable Unavailable ALIASES , DEFAULT / GENERIC / UNKNOWN PROVIDER * Unavailable Unavailable ALIASES , DEFAULT / GENERIC / UNKNOWN PROVIDER * Unavailable Unavailable ALIASES , DEFAULT / GENERIC / UNKNOWN PROVIDER * Unavailable Unavailable ALIASES , DEFAULT / GENERIC / UNKNOWN PROVIDER * Unavailable Unavailable ALIASES , DEFAULT / GENERIC / UNKNOWN PROVIDER * Unavailable Unavailable ALIASES , DEFAULT / GENERIC / UNKNOWN PROVIDER * Unavailable Unavailable ALIASES , DEFAULT / GENERIC / UNKNOWN PROVIDER * Unavailable Unavailable ALIASES , DEFAULT / GENERIC / UNKNOWN PROVIDER * Unavailable Unavailable ALIASES , DEFAULT / GENERIC / UNKNOWN PROVIDER * Unavailable Unavailable ALIASES , DEFAULT / GENERIC / UNKNOWN PROVIDER * Unavailable Unavailable ALIASES , DEFAULT / GENERIC / UNKNOWN PROVIDER * Unavailable Unavailable ALIASES , DEFAULT / GENERIC / UNKNOWN PROVIDER * Unavailable Unavailable ALIASES , DEFAULT / GENERIC / UNKNOWN PROVIDER * Unavailable Unavailable ALIASES , DEFAULT / GENERIC / UNKNOWN PROVIDER * Unavailable Unavailable PARISH ARRIAGA Unavailable Unavailable Re-disclosure Warning The records that you are about to access may contain information from federally-assisted alcohol or drug abuse programs. If such information is present, then the following federally mandated warning applies: This information has been disclosed to you from records protected by federal confidentiality rules (42 CFR part 2). The federal rules prohibit you from making any further disclosure of this information unless further disclosure is expressly permitted by the written consent of the person to whom it pertains or as otherwise permitted by 42 CFR part 2. A general authorization for the release of medical or other information is NOT sufficient for this purpose. The Federal rules restrict any use of the information to criminally investigate or prosecute any alcohol or drug abuse patient.The records that you are about to access may contain highly sensitive health information, the redisclosure of which is protected by Article 27-F of the [facility] Public Health law. If you continue you may have access to information: Regarding HIV / AIDS; Provided by facilities licensed or operated by the [facility] Office of Mental Health; or Provided by the [facility] Office for People With Developmental Disabilities. If such information is present, then the following [facility] mandated warning applies: This information has been disclosed to you from confidential records which are protected by state law. State law prohibits you from making any further disclosure of this information without the specific written consent of the person to whom it pertains, or as otherwise permitted by law. Any unauthorized further disclosure in violation of state law may result in a fine or residential sentence or both. A general authorization for the release of medical or other information is NOT sufficient authorization for further disc losure. Allergies and Adverse Reactions Type Description Substance Reaction Status Data Source(s ) DRUG [facility]GREDI [facility] allergy Hydrocodone-Acetaminophen acetaminophen / hydrocodone Chest pain Active eCW1 ([facility]) Drug allergy Percocet acetaminophen / oxycodone Projectile vomiting Active eCW1 ([facility]) Acetaminophen Acetaminophen Acetaminophen Nausea Active eCW1 ([facility]) Acetaminophen Acetaminophen Acetaminophen Nausea Active eCW1 ([facility]) Hydrocodone-Acetaminophen Hydrocodone-Acetaminophen Acetamin ophen 21.7 MG/ML / Hydrocodone Bitartrate 0.5 MG/ML Oral Solution Chest pain Active eCW1 ([facility]) Drug Class SULFA ANTIBIOTICS SULFA ANTIBIOTICS [facility] Acetaminophen Acetaminophen Acetaminophen 32 MG/ML Oral Solution Naus ea Active eCW1 ([facility]) Acetaminophen Acetaminophen Acetaminophen 32 MG/ML Oral Solution Naus ea Active eCW1 ([facility]) Acetaminophen Acetaminophen Acetaminophen 32 MG/ML Oral Solution Naus ea Active eCW1 ([facility]) Family History Family Member Name Family Member Gender Family Member Status Date o f Status Description Data Source(s) Unknown Male Problem [facility] ([facility] [place] Encounters Encounter Providers Location Date Indications Data Source(s ) Outpatient Attender: KENA LEON MD 02/05/2021 12:00:00 AM [facility] Unknown [address] [facility] [address] 11/11/2020 12:00:00 AM EST eCW1 ([facility] Outpatient Attender: DEFAULT / GENE ALIX / UNKNOWN PROVIDER ALIASES Attender: PARISH ARRIAGA 11/06/2020 12:00:00 AM EST Stem cells transplant status [facility] Stem cells transplant status Outpatient Attender: Deloris Barillas/ [facility]rolog [facility] 10/11/2020 02:30:00 PM EST [facility] [place] Office Visit, Est Pt., Level 4 PC [address] [place] [address] 09/27/2020 12:00:00 AM EDT eCW1 ([facility]) Unknown [address] [facility] [address] 09/13/2020 12:00:00 AM EDT eCW1 (Psychiatric hospital) Unknown [address] [facility] [address] 09/11/2020 12:00:00 AM EDT eCW1 (Psychiatric hospital) Unknown [address] [facility] [address] 09/02/2020 12:00:00 AM EDT eCW1 ([facility]) [place] [address] [facility] [address] 08/20/2020 12:00:00 AM EDT eCW1 ([facility]) [place] [address] [facility] [address] 08/20/2020 12:00:00 AM EDT eCW1 ([facility]) [place] [address] [facility] [address] 08/20/2020 12:00:00 AM EDT eCW1 ([facility]) Outpatient Attender: KENA LEON MD [id number] [id number] 12:00:00 AM EDT - 08/07/2020 03:09:34 PM EDT Stem cells transplant status [facility] Stem cells transplant status [facility] [place] [address] [facility] [address] 07/23/2020 12:00:00 AM EDT eCW1 ([facility]) Outpatient [address] [facility] [address] 06/18/2020 12:00:00 AM EDT eCW1 ([facility]) [place] [address] [facility] [address] 06/18/2020 12:00:00 AM EDT eCW1 ([facility]) [place] [address] [facility] [address] 06/09/2020 12:00:00 AM EDT eCW1 ([facility]) [place] [address] [facility] [address] 06/09/2020 12:00:00 AM EDT eCW1 ([facility]) [place] [address] [facility] [address] 05/21/2020 12:00:00 AM EDT eCW1 ([facility]) [place] [address] [facility] [address] 05/19/2020 12:00:00 AM EDT eCW1 ([facility]) Outpatient Attender: KENA Rahman-ONCCACTR 020 12:00:00 AM EDT - 05/08/2020 04:13:48 PM EDT Stem cells transplant status [facility] Stem cells transplant status Outpatient Attender: KENA LEON MD 05/02/2020 12:00:00 AM [facility] [address] [facility] [address] 04/25/2020 12:00:00 AM EDT eCW1 (Psychiatric hospital) Outpatient [address] [place] [address] [place] [address] 04/25/2020 12:00:00 AM EDT eCW1 (Psychiatric hospital) [facility] [address] [place] [address], [place] [address] 04/16/2020 12:00:00 AM EDT eCW1 (Psychiatric hospital) Outpatient Attender: KENA LEON MD 04/10/2020 12:00:00 AM [facility] Outpatient Attender: Deloris Barillas/ Sean Urolog y 04/09/2020 01:00:00 PM EDT MED[facility] ([facility]) [facility] [address] [place] [address], [place] [address] 03/31/2020 12:00:00 AM EDT eCW1 (Psychiatric hospital) Outpatient Attender: KENA LEON MD 03/14/2020 12:00:00 AM [facility] Outpatient Attender: KENA Rahman-ONCCACTR 020 12:00:00 AM EDT - 03/13/2020 10:32:44 AM EDT Encounter for examination of potential d onor of organ and tissue [facility] Encounter for examination of potential d onor of organ and tissue [facility] [address] [place] [address], [place] [address] 03/06/2020 12:00:00 AM EDT eCW1 (Psychiatric hospital) [facility] [address] [place] [address] [place] [address] 03/05/2020 12:00:00 AM EDT eCW1 (Psychiatric hospital) [facility] [address] [place] [address], [place] [address] 03/05/2020 12:00:00 AM EDT eCW1 ([facility]) [facility] [address] [place] [address], [place] [address] 03/05/2020 12:00:00 AM EDT eCW1 ([facility]) Outpatient Referrer: Bhavik Herndon MD 02/26/2020 02:46:00 PM EDT [facility] [address] [place] [address], [place] [address] 02/26/2020 12:00:00 AM EDT [facility]CW1 [facility]) [facility] [address] [place] [address], [place] [address] 02/07/2020 12:00:00 AM EDT eCW1 [facility] [address] [place] [address], [place] [address] 01/26/2020 12:00:00 AM EST [facility]CW1 [facility] [address] [place] [address], [place] [address] 01/26/2020 12:00:00 AM EST eCW1 ([facility]) [address] [address] 01/25/2020 12:00:00 AM EST eCW1 ([facility]) Outpatient Attender: KENA LEON MD [id number] [id number] 12:00:00 AM EST - 01/24/2020 04:01:47 PM [facility] [address] [place] [address], [place] [address] 01/23/2020 12:00:00 AM EST eCW1 ([facility]) [facility] [address] [place] [address], [place] [address] 01/22/2020 12:00:00 AM EST eCW1 ([facility]) [facility] [address] [place] [address], [place] [address] 01/21/2020 12:00:00 AM EST eCW1 ([facility]) [facility] [address] [facility] [address] 01/14/2020 12:00:00 AM EST eCW1 ([facility]) [facility] [place] [address] [facility] [address] 01/12/2020 12:00:00 AM EST eCW1 ([facility]) [facility] [address] [facility] [address] 12/29/2019 12:00:00 AM EST eCW1 ([facility]) [facility] [address] [facility] [address] 12/28/2019 12:00:00 AM EST eCW1 ([facility]) [facility] [address] [facility] [address] 12/27/2019 12:00:00 AM EST eCW1 ([facility]) [facility] [place] [address] [facility] [address] 12/27/2019 12:00:00 AM EST eCW1 ([facility]) [facility] [address] [facility] [address] 12/22/2019 12:00:00 AM EST eCW1 ([facility]) [facility] [address] [facility] [address] 12/22/2019 12:00:00 AM EST eCW1 ([facility]) [facility] [address] [facility] [address] 12/18/2019 12:00:00 AM EST eCW1 ([facility]) [facility] [address] [facility] [address] 12/13/2019 12:00:00 AM EST eCW1 ([facility]) [facility] [address] [facility] [address] 11/14/2019 12:00:00 AM EST eCW1 ([facility]) [facility] [place] [address] [facility] [address] 11/07/2019 12:00:00 AM EST eCW1 ([facility] hospital) [facility] [address] [facility] [address] 11/07/2019 12:00:00 AM EST eCW1 ([facility] hospital) [facility] [place] [facility] [address] 11/06/2019 12:00:00 AM EST eCW1 ([facility] hospital) [facility] [address] [facility] [address] 10/22/2019 12:00:00 AM EST eCW1 (Psychiatric hospital) Immunizations Vaccine Date Status Description Data Source(s) DTaP-Hep B-IPV 08/07/2020 12:00:00 AM EDT completed DTaP / Hep B / IPV 08/07/2020 [facility] Hib (PRP-T) 08/07/2020 12:00:00 AM EDT completed HiB (PRP-T) 08/07/[address] [place] [address] Pneumococcal conjugate PCV 13 08/07/2020 12:00:00 AM EDT complet ed Pneumococcal Conjugate PCV13 08/07/2020 [facility] ospital Medications Medication Brand Name Start Date Product Form Dose Route Admi nistrative Instructions Pharmacy Instructions Status Indications Reaction Description Data Source(s) pantoprazole 40 MG Delayed Release Oral Tablet Pantopr azole Sodium 40 MG Pantoprazole Sodium 40 MG 09/27/2020 12:00:00 AM EDT 1.0 {tablet} active Pantoprazole Sodium 40 MG eCW1 ( [facility]) pantoprazole 40 MG Delayed Release Oral Tablet Pantopr azole Sodium 40 MG Pantoprazole Sodium 40 MG 09/27/2020 12:00:00 AM EDT 1.0 {tablet} active Pantoprazole Sodium 40 MG eCW1 ( [facility]) pregabalin 300 MG Oral Capsule [Lyrica] Lyrica 300 MG Lyrica 300 MG 09/09/2020 12:00:00 AM EDT 1.0 {capsule} active L yrica 300 MG eCW1 ([facility]) pregabalin 300 MG Oral Capsule [Lyrica] Lyrica 300 MG Lyrica 300 MG 09/09/2020 12:00:00 AM EDT 1.0 {capsule} active L yrica 300 MG eCW1 ([facility]) pregabalin 300 MG Oral Capsule [Lyrica] Lyrica 300 MG Lyrica 300 MG 09/09/2020 12:00:00 AM EDT 1.0 {capsule} active L yrica 300 MG eCW1 ([facility]) pregabalin 300 MG Oral Capsule [Lyrica] Lyrica 300 MG Lyrica 300 MG 09/09/2020 12:00:00 AM EDT 1.0 {capsule} active L yrica 300 MG eCW1 ([facility]) 0.5 ML acellular pertussis vaccine, inac tivated 0.116 MG/ML / diphtheria toxoid vaccine, inactivated 50 UNT/ML / Hepatitis B Surface Antigen Vaccine 0.02 MG/ML / poliovirus vaccine inactivated, type 1 (Chu) 80 UNT/ML / poliovirus vaccine inactivated, DTaP-hepatitis B recombinant-IPV (PEDIARIX) injection 0.5 mL DTaP-hepatitis B recombinant-IPV (PEDIARIX) injection 0.5 mL 08/07/2020 02:16:24 PM EDT 0.5 mL Intramuscular completed 0.5 mL, Intramuscular, Give Now, Starting Wed08/07/20 at 1416, For 1 dose
Refrigerate
[facility] Medication administered onsite 0.5 [place] [address], capsular polysaccharide inactivated tetanus toxoid conjugate vaccine 0.07 MG/ML Injection haemophilus B polysaccharide conjugate vaccine (HIBERIX) intramuscular injection 10 mcg haemophilus B polysaccharide conjugate vaccine (HIBERIX) intramuscular injection 10 mcg 08/07/2020 02:16:15 PM EDT 0.5 mL Intramuscular com pleted 10 mcg (0.5 mL), Intramuscular, Give Now, Starting Wed08/07/20 at 1416, For 1 dose
To be reconstituted only with the accompanying saline diluent. Administer into the anterolateral aspect of the thigh or deltoid.
[facility] Medication administered onsite 0.5 ML Streptococcus pneumoniae serotype 1 capsular antigen diphtheria [id number] protein conjugate vaccine 0.0044 MG/ML / Streptococcus pneumoniae serotype 14 capsular antigen diphtheria [id number] protein conjugate vaccine 0.0044 MG/ML / Streptococcus pneumonia pneumococcal 13-valent conjugate vaccine (PREVNAR) injection 0.5 mL pneumococcal 13-valent conjugate vaccine (PREVNAR) injection 0.5 mL 08/07/2020 02:16:15 PM EDT 0.5 mL Intramuscular comp leted 0.5 mL, Intramuscular, Give Now, Starting Wed08/07/20 at 1416, For 1 dose [facility] Medication administered onsite Morphine Sulfate 2 MG/ML Oral Solution Morphine Sulfat e 10 MG/5ML Morphine Sulfate 10 MG/5ML 06/18/2020 12:00:00 AM EDT active Morphine Sulfate 10 MG/5ML eCW1 ([facility]) Morphine Sulfate 2 MG/ML Oral Solution Morphine Sulfat e 10 MG/5ML Morphine Sulfate 10 MG/5ML 06/18/2020 12:00:00 AM EDT active Morphine Sulfate 10 MG/5ML eCW1 ([facility]) Morphine Sulfate 2 MG/ML Oral Solution Morphine Sulfat e 10 MG/5ML Morphine Sulfate 10 MG/5ML 06/18/2020 12:00:00 AM EDT suspended Morphine Sulfate 10 MG/5ML eCW1 ([facility]) Morphine Sulfate 2 MG/ML Oral Solution Morphine Sulfat e 10 MG/5ML Morphine Sulfate 10 MG/5ML 06/18/2020 12:00:00 AM EDT suspended Morphine Sulfate 10 MG/5ML eCW1 ([facility]) Morphine Sulfate 2 MG/ML Oral Solution Morphine Sulfat e 10 MG/5ML Morphine Sulfate 10 MG/5ML 06/18/2020 12:00:00 AM EDT active Morphine Sulfate 10 MG/5ML eCW1 ([facility]) Morphine Sulfate 2 MG/ML Oral Solution Morphine Sulfat e 10 MG/5ML Morphine Sulfate 10 MG/5ML 06/18/2020 12:00:00 AM EDT active Morphine Sulfate 10 MG/5ML eCW1 ([facility]) Morphine Sulfate 2 MG/ML Oral Solution Morphine Sulfat e 10 MG/5ML Morphine Sulfate 10 MG/5ML 06/18/2020 12:00:00 AM EDT active Morphine Sulfate 10 MG/5ML eCW1 ([facility]) Morphine Sulfate 2 MG/ML Oral Solution Morphine Sulfat e 10 MG/5ML Morphine Sulfate 10 MG/5ML 06/18/2020 12:00:00 AM EDT active Morphine Sulfate 10 MG/5ML eCW1 ([facility]) Morphine Sulfate 2 MG/ML Oral Solution Morphine Sulfat e 10 MG/5ML Morphine Sulfate 10 MG/5ML 06/18/2020 12:00:00 AM EDT active Morphine Sulfate 10 MG/5ML eCW1 ([facility]) Morphine Sulfate 2 MG/ML Oral Solution Morphine Sulfat e 10 MG/5ML Morphine Sulfate 10 MG/5ML 06/18/2020 12:00:00 AM EDT active Morphine Sulfate 10 MG/5ML eCW1 ([facility]) Morphine Sulfate 2 MG/ML Oral Solution Morphine Sulfat e 10 MG/5ML Morphine Sulfate 10 MG/5ML 05/22/2020 12:00:00 AM EDT active Morphine Sulfate 10 MG/5ML eCW1 ([facility]) Morphine Sulfate 2 MG/ML Oral Solution Morphine Sulfat e 10 MG/5ML Morphine Sulfate 10 MG/5ML 05/22/2020 12:00:00 AM EDT active Morphine Sulfate 10 MG/5ML eCW1 ([facility]) Morphine Sulfate 2 MG/ML Oral Solution Morphine Sulfat e 10 MG/5ML Morphine Sulfate 10 MG/5ML 05/22/2020 12:00:00 AM EDT active Morphine Sulfate 10 MG/5ML eCW1 ([facility]) Morphine Sulfate 2 MG/ML Oral Solution Morphine Sulfat e 10 MG/5ML Morphine Sulfate 10 MG/5ML 05/22/2020 12:00:00 AM EDT active Morphine Sulfate 10 MG/5ML eCW1 ([facility]) Morphine Sulfate 2 MG/ML Oral Solution Morphine Sulfat e 10 MG/5ML Morphine Sulfate 10 MG/5ML 03/06/2020 12:00:00 AM EDT active Morphine Sulfate 10 MG/5ML eCW1 ([facility]) Morphine Sulfate 2 MG/ML Oral Solution Morphine Sulfat e 10 MG/5ML Morphine Sulfate 10 MG/5ML 03/06/2020 12:00:00 AM EDT activ e 2.5 -5 ml eCW1 ([facility]) Morphine Sulfate 2 MG/ML Oral Solution Morphine Sulfat e 10 MG/5ML Morphine Sulfate 10 MG/5ML 12/29/2019 12:00:00 AM EST activ e 2.5 mL eCW1 ([facility]) Morphine Sulfate 2 MG/ML Oral Solution Morphine Sulfat e 10 MG/5ML Morphine Sulfate 10 MG/5ML 12/29/2019 12:00:00 AM EST activ e 2.5 mL eCW1 ([facility]) Morphine Sulfate 2 MG/ML Oral Solution Morphine Sulfat e 10 MG/5ML Morphine Sulfate 10 MG/5ML 12/28/2019 12:00:00 AM EST activ e 2.5 mL eCW1 ([facility]) Morphine Sulfate 2 MG/ML Oral Solution Morphine Sulfat e 10 MG/5ML Morphine Sulfate 10 MG/5ML 12/28/2019 12:00:00 AM EST activ e 2.5 mL eCW1 ([facility]) Albuterol 0.833 MG/ML / Ipratropium Brom leonardo 0.167 MG/ML Inhalant Solution Ipratropium-Albuterol 0.5-2.5 (3) MG/3ML Ipratropium-Albuterol 0.5-2.5 (3) MG/3ML 12/22/2019 12:00:00 AM EST active 3 ml as needed eCW1 ([facility]) Trazodone Hydrochloride 50 MG Oral Tablet TraZODone HC l 50 MG TraZODone HCl 50 MG 12/22/2019 12:00:00 AM EST active 1 tablet at bedtime eCW1 ([facility]) Albuterol 0.833 MG/ML / Ipratropium Brom leonardo 0.167 MG/ML Inhalant Solution Ipratropium-Albuterol 0.5-2.5 (3) MG/3ML Ipratropium-Albuterol 0.5-2.5 (3) MG/3ML 12/22/2019 12:00:00 AM EST active 3 ml as needed eCW1 ([facility]) Albuterol 0.83 MG/ML Inhalant Solution Albuterol Sulfa te (2.5 MG/3ML) 0.083% Albuterol Sulfate (2.5 MG/3ML) 0.083% 12/22/2019 12:00:00 AM EST 3.0 {ml_as_needed} suspended Albuterol Sulfa te (2.5 MG/3ML) 0.083% eCW1 ([facility]) Albuterol 0.833 MG/ML / Ipratropium Brom leonardo 0.167 MG/ML Inhalant Solution Ipratropium-Albuterol 0.5-2.5 (3) MG/3ML Ipratropium-Albuterol 0.5-2.5 (3) MG/3ML 12/22/2019 12:00:00 AM EST 3.0 {ml_as_needed} suspended Ipratropium-Albuterol 0.5-2.5 (3) MG/3ML eCW1 ([facility]) Trazodone Hydrochloride 50 MG Oral Tablet TraZODone HC l 50 MG TraZODone HCl 50 MG 12/22/2019 12:00:00 AM EST active 1 tablet at bedtime eCW1 ([facility]) Levofloxacin 750 MG Oral Tablet [Levaquin] Levaquin 750 MG L evaquin 750 MG 12/22/2019 12:00:00 AM EST active 1 tablet eCW1 ([facility]) Trazodone Hydrochloride 150 MG Oral Tablet TraZODone H Cl 150 MG TraZODone HCl 150 MG 12/22/2019 12:00:00 AM EST active TraZODone HCl 150 MG eCW1 ([facility]) Albuterol 0.83 MG/ML Inhalant Solution Albuterol Sulfa te (2.5 MG/3ML) 0.083% Albuterol Sulfate (2.5 MG/3ML) 0.083% 12/22/2019 12:00:00 AM EST 3.0 {ml_as_needed} suspended Albuterol Sulfa te (2.5 MG/3ML) 0.083% eCW1 ([facility]) Albuterol 0.83 MG/ML Inhalant Solution Albuterol Sulfa te (2.5 MG/3ML) 0.083% Albuterol Sulfate (2.5 MG/3ML) 0.083% 12/22/2019 12:00:00 AM EST active 3 ml as needed eCW1 ([facility]) Albuterol 0.83 MG/ML Inhalant Solution Albuterol Sulfa te (2.5 MG/3ML) 0.083% Albuterol Sulfate (2.5 MG/3ML) 0.083% 12/22/2019 12:00:00 AM EST active 3 ml as needed eCW1 ([facility]) Trazodone Hydrochloride 50 MG Oral Tablet TraZODone HC l 50 MG TraZODone HCl 50 MG 12/22/2019 12:00:00 AM EST active 1 tablet at bedtime eCW1 ([facility]) Albuterol 0.833 MG/ML / Ipratropium Brom leonardo 0.167 MG/ML Inhalant Solution Ipratropium-Albuterol 0.5-2.5 (3) MG/3ML Ipratropium-Albuterol 0.5-2.5 (3) MG/3ML 12/22/2019 12:00:00 AM EST 3.0 {ml_as_needed} suspended Ipratropium-Albuterol 0.5-2.5 (3) MG/3ML eCW1 ([facility]) Albuterol 0.833 MG/ML / Ipratropium Brom leonardo 0.167 MG/ML Inhalant Solution Ipratropium-Albuterol 0.5-2.5 (3) MG/3ML Ipratropium-Albuterol 0.5-2.5 (3) MG/3ML 12/22/2019 12:00:00 AM EST 3.0 {ml_as_needed} suspended Ipratropium-Albuterol 0.5-2.5 (3) MG/3ML eCW1 ([facility]) Albuterol 0.83 MG/ML Inhalant Solution Albuterol Sulfa te (2.5 MG/3ML) 0.083% Albuterol Sulfate (2.5 MG/3ML) 0.083% 12/22/2019 12:00:00 AM EST 3.0 {ml_as_needed} suspended Albuterol Sulfa te (2.5 MG/3ML) 0.083% eCW1 ([facility]) Albuterol 0.833 MG/ML / Ipratropium Brom leonardo 0.167 MG/ML Inhalant Solution Ipratropium-Albuterol 0.5-2.5 (3) MG/3ML Ipratropium-Albuterol 0.5-2.5 (3) MG/3ML 12/22/2019 12:00:00 AM EST active 3 ml as needed eCW1 ([facility]) Albuterol 0.83 MG/ML Inhalant Solution Albuterol Sulfa te (2.5 MG/3ML) 0.083% Albuterol Sulfate (2.5 MG/3ML) 0.083% 12/22/2019 12:00:00 AM EST 3.0 {ml_as_needed} suspended Albuterol Sulfa te (2.5 MG/3ML) 0.083% eCW ([facility]) Levofloxacin 750 MG Oral Tablet [Levaquin] Levaquin 750 MG L evaquin 750 MG 12/22/2019 12:00:00 AM EST active 1 tablet eCW1 ([facility]) Albuterol 0.83 MG/ML Inhalant Solution Albuterol Sulfa te (2.5 MG/3ML) 0.083% Albuterol Sulfate (2.5 MG/3ML) 0.083% 12/22/2019 12:00:00 AM EST 3.0 {ml_as_needed} suspended Albuterol Sulfa te (2.5 MG/3ML) 0.083% eCW ([facility]) Albuterol 0.833 MG/ML / Ipratropium Brom leonardo 0.167 MG/ML Inhalant Solution Ipratropium-Albuterol 0.5-2.5 (3) MG/3ML Ipratropium-Albuterol 0.5-2.5 (3) MG/3ML 12/22/2019 12:00:00 AM EST active 3 ml as needed eCW1 ([facility]) Albuterol 0.83 MG/ML Inhalant Solution Albuterol Sulfa te (2.5 MG/3ML) 0.083% Albuterol Sulfate (2.5 MG/3ML) 0.083% 12/22/2019 12:00:00 AM EST active 3 ml as needed eCW1 ([facility]) Trazodone Hydrochloride 50 MG Oral Tablet TraZODone HC l 50 MG TraZODone HCl 50 MG 12/22/2019 12:00:00 AM EST active 1 tablet at bedtime eCW1 ([facility]) Albuterol 0.833 MG/ML / Ipratropium Brom leonardo 0.167 MG/ML Inhalant Solution Ipratropium-Albuterol 0.5-2.5 (3) MG/3ML Ipratropium-Albuterol 0.5-2.5 (3) MG/3ML 12/22/2019 12:00:00 AM EST 3.0 {ml_as_needed} suspended Ipratropium-Albuterol 0.5-2.5 (3) MG/3ML eCW1 ([facility]) Trazodone Hydrochloride 150 MG Oral Tablet TraZODone H Cl 150 MG TraZODone HCl 150 MG 12/22/2019 12:00:00 AM EST active TraZODone HCl 150 MG eCW1 ([facility]) Trazodone Hydrochloride 150 MG Oral Tablet TraZODone H Cl 150 MG TraZODone HCl 150 MG 12/22/2019 12:00:00 AM EST active TraZODone HCl 150 MG eCW1 ([facility]) Albuterol 0.833 MG/ML / Ipratropium Brom leonardo 0.167 MG/ML Inhalant Solution Ipratropium-Albuterol 0.5-2.5 (3) MG/3ML Ipratropium-Albuterol 0.5-2.5 (3) MG/3ML 12/22/2019 12:00:00 AM EST 3.0 {ml_as_needed} suspended Ipratropium-Albuterol 0.5-2.5 (3) MG/3ML eCW1 ([facility]) Trazodone Hydrochloride 150 MG Oral Tablet TraZODone H Cl 150 MG TraZODone HCl 150 MG 12/22/2019 12:00:00 AM EST active TraZODone HCl 150 MG eCW1 ([facility]) Trazodone Hydrochloride 150 MG Oral Tablet TraZODone H Cl 150 MG TraZODone HCl 150 MG 12/22/2019 12:00:00 AM EST active TraZODone HCl 150 MG eCW1 ([facility]) Albuterol 0.83 MG/ML Inhalant Solution Albuterol Sulfa te (2.5 MG/3ML) 0.083% Albuterol Sulfate (2.5 MG/3ML) 0.083% 12/22/2019 12:00:00 AM EST active 3 ml as needed eCW1 ([facility]) Docusate Sodium 50 MG / sennosides, ASSISTED 8.6 MG Oral Tablet [SENOKOT-S] Senokot S 8.6-50 MG Senokot S 8.6-50 MG 12/13/2019 12:00:00 AM EST 1 .0 {tablet_in_the_evening_as_needed} active Senokot S 8.6-50 MG eCW1 ([facility]) Docusate Sodium 50 MG / sennosides, ASSISTED 8.6 MG Oral Tablet [SENOKOT-S] Senokot S 8.6-50 MG Senokot S 8.6-50 MG 12/13/2019 12:00:00 AM EST 1 .0 {tablet_in_the_evening_as_needed} active Senokot S 8.6-50 MG eCW1 ([facility]) Docusate Sodium 50 MG / sennosides, ASSISTED 8.6 MG Oral Tablet [SENOKOT-S] Senokot S 8.6-50 MG Senokot S 8.6-50 MG 12/13/2019 12:00:00 AM EST 1 .0 {tablet_in_the_evening_as_needed} active Senokot S 8.6-50 MG eCW1 ([facility]) Docusate Sodium 50 MG / sennosides, ASSISTED 8.6 MG Oral Tablet [SENOKOT-S] Senokot S 8.6-50 MG Senokot S 8.6-50 MG 12/13/2019 12:00:00 AM EST 1 .0 {tablet_in_the_evening_as_needed} active Senokot S 8.6-50 MG eCW1 ([facility]) Docusate Sodium 50 MG / sennosides, ASSISTED 8.6 MG Oral Tablet [SENOKOT-S] Senokot S 8.6-50 MG Senokot S 8.6-50 MG 12/13/2019 12:00:00 AM EST 1 .0 {tablet_in_the_evening_as_needed} active Senokot S 8.6-50 MG eCW1 ([facility]) Docusate Sodium 50 MG / sennosides, ASSISTED 8.6 MG Oral Tablet [SENOKOT-S] Senokot S 8.6-50 MG Senokot S 8.6-50 MG 12/13/2019 12:00:00 AM EST active 1 tablet in the evening as needed eCW1 ([facility]) Docusate Sodium 50 MG / sennosides, ASSISTED 8.6 MG Oral Tablet [SENOKOT-S] Senokot S 8.6-50 MG Senokot S 8.6-50 MG 12/13/2019 12:00:00 AM EST 1 .0 {tablet_in_the_evening_as_needed} active Senokot S 8.6-50 MG eCW1 ([facility]) Docusate Sodium 50 MG / sennosides, ASSISTED 8.6 MG Oral Tablet [SENOKOT-S] Senokot S 8.6-50 MG Senokot S 8.6-50 MG 12/13/2019 12:00:00 AM EST 1 .0 {tablet_in_the_evening_as_needed} active Senokot S 8.6-50 MG eCW1 ([facility]) Docusate Sodium 50 MG / sennosides, ASSISTED 8.6 MG Oral Tablet [SENOKOT-S] Senokot S 8.6-50 MG Senokot S 8.6-50 MG 12/13/2019 12:00:00 AM EST 1 .0 {tablet_in_the_evening_as_needed} active Senokot S 8.6-50 MG eCW1 ([facility]) Docusate Sodium 50 MG / sennosides, ASSISTED 8.6 MG Oral Tablet [SENOKOT-S] Senokot S 8.6-50 MG Senokot S 8.6-50 MG 12/13/2019 12:00:00 AM EST 1 .0 {tablet_in_the_evening_as_needed} active Senokot S 8.6-50 MG eCW1 ([facility]) Docusate Sodium 50 MG / sennosides, ASSISTED 8.6 MG Oral Tablet [SENOKOT-S] Senokot S 8.6-50 MG Senokot S 8.6-50 MG 12/13/2019 12:00:00 AM EST 1 .0 {tablet_in_the_evening_as_needed} active Senokot S 8.6-50 MG eCW1 ([facility]) Docusate Sodium 50 MG / sennosides, ASSISTED 8.6 MG Oral Tablet [SENOKOT-S] Senokot S 8.6-50 MG Senokot S 8.6-50 MG 12/13/2019 12:00:00 AM EST active 1 tablet in the evening as needed eCW1 ([facility]) Docusate Sodium 50 MG / sennosides, ASSISTED 8.6 MG Oral Tablet [SENOKOT-S] Senokot S 8.6-50 MG Senokot S 8.6-50 MG 12/13/2019 12:00:00 AM EST 1 .0 {tablet_in_the_evening_as_needed} active Senokot S 8.6-50 MG eCW1 ([facility]) Docusate Sodium 50 MG / sennosides, ASSISTED 8.6 MG Oral Tablet [SENOKOT-S] Senokot S 8.6-50 MG Senokot S 8.6-50 MG 12/13/2019 12:00:00 AM EST 1 .0 {tablet_in_the_evening_as_needed} active Senokot S 8.6-50 MG eCW1 ([facility]) Docusate Sodium 50 MG / sennosides, ASSISTED 8.6 MG Oral Tablet [SENOKOT-S] Senokot S 8.6-50 MG Senokot S 8.6-50 MG 12/13/2019 12:00:00 AM EST active 1 tablet in the evening as needed eCW1 ([facility]) Docusate Sodium 50 MG / sennosides, ASSISTED 8.6 MG Oral Tablet [SENOKOT-S] Senokot S 8.6-50 MG Senokot S 8.6-50 MG 12/13/2019 12:00:00 AM EST 1 .0 {tablet_in_the_evening_as_needed} active Senokot S 8.6-50 MG eCW1 ([facility]) Docusate Sodium 50 MG / sennosides, ASSISTED 8.6 MG Oral Tablet [SENOKOT-S] Senokot S 8.6-50 MG Senokot S 8.6-50 MG 12/13/2019 12:00:00 AM EST 1 .0 {tablet_in_the_evening_as_needed} active Senokot S 8.6-50 MG eCW1 ([facility]) Docusate Sodium 50 MG / sennosides, ASSISTED 8.6 MG Oral Tablet [SENOKOT-S] Senokot S 8.6-50 MG Senokot S 8.6-50 MG 12/13/2019 12:00:00 AM EST 1 .0 {tablet_in_the_evening_as_needed} active Senokot S 8.6-50 MG eCW1 ([facility]) Docusate Sodium 50 MG / sennosides, ASSISTED 8.6 MG Oral Tablet [SENOKOT-S] Senokot S 8.6-50 MG Senokot S 8.6-50 MG 12/13/2019 12:00:00 AM EST active 1 tablet in the evening as needed eCW1 ([facility]) Docusate Sodium 50 MG / sennosides, ASSISTED 8.6 MG Oral Tablet [SENOKOT-S] Senokot S 8.6-50 MG Senokot S 8.6-50 MG 12/13/2019 12:00:00 AM EST active 1 tablet in the evening as needed eCW1 ([facility]) Insurance Providers Payer name Policy type / Coverage type Policy ID Covered alliance party ID Covered alliance party's relationship to daniel Policy Daniel Plan Information EMEDNY [id number] SP [id number] MEDICARE [id number] SP [id number] [facility] [id number] SP [id number] VNA MEDICAID MANAGED I [id number] Self [id number] MEDICAID M [id number] Self [id number] MEDICARE A [id number] Self [id number] EMPIRE PLAN [facility] U [id number] Spouse [id number] BCBS EMPIRE JOBY DIV [id number] MEDICAID [id number] SP [id number] [facility] [id number] SP [id number] BCBS EMPIRE JOBY DIV [id number] BCBS EMPIRE JOBY DIV [id number] BCBS EMPIRE JOBY DIV [id number] HU2 [id number] MEDICAID M [id number] S [id number] MEDICARE C [id number] S [id number] [facility] O [id number] S [id number] [facility] [id number] SP [id number] BCBS EMPIRE JOBY DIV [id number] [id number] MEDICARE [id number] SP [id number] VNA MEDICAID MANAGED I [id number] Self [id number] MEDICARE A [id number] Self [id number] A BCBS EMPIRE JOBY DIV [id number] HU2 [id number] BCBS EMPIRE JOBY DIV [id number] MEDICARE [id number] SP [id number] [facility] [id number] HU2 [id number] [facility] [id number] HU2 [id number] BCBS EMPIRE JOBY DIV [id number] HU2 [id number] BCBS EMPIRE JOBY DIV [id number] BCBS EMPIRE JOBY DIV [id number] HU2 [id number] [facility] [place] [id number] SP [id number] [id number] MEDICARE [id number] SP [id number] A MEDICARE [id number] SP [id number] A BCBS EMPIRE JOBY DIV [id number] HU2 [id number] [facility] [id number] HU2 [id number] [facility] [id number] HU2 [id number] [facility] [id number] HU [id number] [facility] [id number] 07 [id number] BCBS EMPIRE JOBY DIV [id number] BCBS EMPIRE JOBY DIV [id number] [place] [facility] C [id number] S [id number] ANSI-Commercial [id number] ANSI-Medicaid [id number] ANSI-Medicare Part B [id number] ANSI-Medicaid [id number] ANSI-Commercial [id number] ANSI-Medicare Part B [id number] ANSI-Commercial [id number] ANSI-Medicare Part B [id number] ANSI-Medicaid [id number] ANSI-Commercial [id number] ANSI-Medicaid [id number] ANSI-Medicare Part B [id number] ANSI-Commercial [id number] ANSI-Medicare Part B [id number]-[id number] ANSI-Medicaid [id number] ANSI-Commercial 5l6o324a-0i65-1c17-981k-1839p0512k88 5d3h113k-2x53-0s56-426p-[id number] ANSI-Medicaid [id number] ANSI-Medicare Part B [id number] ANSI-Medicaid [id number] ANSI-Medicare Part B [id number] ANSI-Commercial [id number]-4y24-988v-e7vv-29i7i7z96z48 881p54gw-4r73-204n-s0ku-32f3b4j26i80 ANSI-Medicare Part B [id number] ANSI-Commercial cjx10s48-d472-997w-4mpf-406xs0g3w800 cyd44l04-r051-094l-3fca-746vz9b3j639 ANSI-Medicaid [id number] ANSI-Medicare Part B [id number] ANSI-Commercial 907j039t-4374-5218-r077-ua86p7212ua1 575b534n-6462-2286-g954-ml04y4866hq1 ANSI-Medicaid [id number] ANSI-Medicaid [id number] ANSI-Commercial 39j07t81-f105-073p-lu35-i472i65733l5 90v60g57-j771-999f-cf78-m354c53623e7 ANSI-Medicare Part B [id number] ANSI-Commercial 4401d164-42qm-7g9e-13p1-9w465elcn8x0 4838m731-34qn-8d4i-23c5-0m182irpn7o9 ANSI-Medicaid [id number] ANSI-Medicare Part B [id number] ANSI-Medicaid [id number] ANSI-Medicare Part B [id number] ANSI-Commercial 624pxo83-08m2-9944-fww0-byl877d76665 935gwc89-31a0-6863-unl8-pgy371r77860 ANSI-Commercial d4a1anxh-n3d7-0d1w-274x-jm5056r6jh35 b9o7cgwl-r4x2-6b5t-165d-ie5657z3wv57 ANSI-Medicare Part B [id number]-[id number] ANSI-Medicaid [id number] ANSI-Commercial 17953j27-y325-5y54-5158-iion945218y2 46032i71-s518-2x71-1359-acig352835k7 ANSI-Medicaid [id number] ANSI-Medicare Part B [id number] ANSI-Commercial l48719i6-44cs-1031-qy19-3236h3ncmaxf p22828e7-65wi-0178-rj98-1851c4uopdwa [facility] [id number] [facility] [id number] ANSI-Medicaid [id number] ANSI-Medicare Part B [id number] ANSI-Medicare Part B [id number] ANSI-Medicaid [id number] ANSI-Commercial cq2uf708-56ze-0212-682j-9154598ma6a4 kc2lg704-54be-1579-532b-4910438ma4o2 ANSI-Medicaid [id number] ANSI-Commercial 8r4e6446-iz3s-2396-b5k4-5057zy0c5o12 8x0g2415-de9k-1547-j6j7-5813ah3s3f70 ANSI-Medicare Part B [id number] ANSI-Medicaid [id number] ANSI-Medicare Part B [id number] ANSI-Commercial [id number]-d44q-2m98-820q-g6kj08978q99 7gu14366-f86m-8n98-049v-q8iu91461u33 ANSI-Commercial c9sx1021-04gq-3hw5-n345-1zacb4w49m6o m8ey8275-43jo-2ej0-q750-9ltje9f93d6w ANSI-Medicare Part B [id number] ANSI-Medicaid [id number] ANSI-Commercial 92cbj5t2-i8g5-0040-pa6w-6rqxf996nz1s 74ckx0f1-f5y7-5832-pb4j-1uywr245ys6h ANSI-Medicaid [id number] ANSI-Medicare Part B [id number] ANSI-Medicare Part B [id number] ANSI-Commercial [id number] ANSI-Medicaid [id number] ANSI-Medicare Part B [id number] ANSI-Medicaid [id number] ANSI-Commercial [id number] ANSI-Medicaid [id number] ANSI-Commercial [id number] ANSI-Medicare Part B [id number] ANSI-Commercial [id number] ANSI-Medicare Part B [id number] ANSI-Commercial [id number] ANSI-Medicare Part B [id number] ANSI-Commercial [id number] ANSI-Medicare Part B [id number] [employer] Medigap Part B [id number] Family Dependent [id number] Medicare Medicare Primary [id number] Self 3 [id number] ANSI-Medicare Part B [id number] ANSI-Commercial [id number] ANSI-Medicare Part B [id number] ANSI-Commercial [id number] ANSI-Medicare Part B [id number] ANSI-Commercial [id number] [place] MEDICARE PART B C [id number] S [id number] MEDICARE C [id number] S [id number] A [employer] Medigap Part B [id number] Family Dependent [id number] Medicare - NGS Medicare Primary [id number] Self [id number] [place] P [id number] P [id number] A [id number] Problems, Conditions, and Diagnoses Code Display Name Description Problem Type Effective Dates Data Source(s) Z94.84 [id number] Hx of allogeneic stem cell transplant Pro blem 04/25/2020 12:00:00 AM EDT eCW1 ([facility]) Z94.84 [id number] Hx of allogeneic stem cell transplant Pro blem 04/25/2020 12:00:00 AM EDT eCW1 ([facility]) Z94.84 [id number] Stem cells transplant status Problem 03/05/2020 12:00:00 AM EDT eCW1 ([facility]) M54.5 [id number] Low back pain at multiple sites Problem 12/28/2019 12:00:00 AM EST eCW1 ([facility]) M54.5 [id number] Low back pain at multiple sites Problem 12/28/2019 12:00:00 AM EST eCW1 ([facility]) Z94.84 Stem cells transplant status Stem cells transplant sta tus Diagnosis 11/06/2020 03:22:17 PM [facility] Z00.5 Encounter for examination of potential d onor of organ and tissue Encounter for examination of potential donor of organ and tissue Diagnosis [facility] Procedure Description Date Indications Data Source(s) US RETROPERITONEAL REAL TIME W/IMAGE LIMITED 0 12:00:00 AM EST [facility] ([facility]) US RETROPERITONEAL REAL TIME W/IMAGE LIMITED 0 12:00:00 AM EST [facility] ([facility]) BLOOD COUNT COMPLETE AUTOMATED CBC AND DIFFERENTIAL STAT 08/07/2020 1:15 PM EDT H/O autologous stem cell transplant 08/07/2020 01:15:00 PM E DT H/O autologous stem cell transplant [facility] H/O autologous stem cell transplant COMPREHENSIVE METABOLIC PANEL COMPREHENSIVE METABOLIC PANEL STA T 08/07/2020 1:15 PM EDT H/O autologous stem cell transplant 08/07/2020 01:15:00 PM E DT H/O autologous stem cell transplant [facility] H/O autologous stem cell transplant LAB RESULTS (OUTSIDE/HISTORICAL) LAB RESULTS (OUTSIDE/HISTORICA L) 04/09/2020 11:51 AM EDT 04/09/2020 03:51:00 PM EDT [facility] BLOOD COUNT COMPLETE AUTO&AUTO DIFRNTL WBC COUNT CBC AND DIFFER ENTIAL STAT 03/13/2020 9:40 AM EDT H/O autologous stem cell transplant 03/13/2020 01:40:00 PM E DT H/O autologous stem cell transplant [facility] H/O autologous stem cell transplant COMPREHENSIVE METABOLIC PANEL COMPREHENSIVE METABOLIC PANEL STA T 03/13/2020 9:40 AM EDT H/O autologous stem cell transplant 03/13/2020 01:40:00 PM E DT H/O autologous stem cell transplant [facility] H/O autologous stem cell transplant Office Visit, Est Pt., Level 4 PC 03/05/2020 12:00:00 AM EDT eCW1 ([facility]) Office Visit, Est Pt., Level 2 FC 03/05/2020 12:00:00 AM EDT eCW1 ([facility]) Results ID Date Data Source [id number] 11/06/2020 06:08:54 PM EST [facility] Hospital Name Value Range Interpretation Code Description Data Earnestine rce(s) Supporting Document(s) Leukocytes [#/volume] in Blood by Automated count 6.4 10*3/uL 4-10 [facility] Erythrocytes [#/volume] in Blood by Automated count 3.91 10*6/uL 4.1- 5.3 L [facility] Hemoglobin [Mass/volume] in Blood 10.9 g/dL 11.5-15.5 L [facility] Hematocrit [Volume Fraction] of Blood by Automated count 32.2 % 3 6-45 L [facility] Erythrocyte mean corpuscular volume [Entitic volume] by Auto mated count 82.4 fL 80-96 [facility] Erythrocyte mean corpuscular hemoglobin [Entitic mass] by Automated count 27.9 pg 27-33 [facility] Erythrocyte mean corpuscular hemoglobin concentration [Mass/volume] by Automated count 33.8 g/dL 32.0-36.[facility] distribution width [Ratio] by Automated count 17.4 % 11.5-14.5 H [facility] Platelets [#/volume] in Blood by Automated count 246 10*3/uL 150-400 [facility] Differential cell count method - Blood [facility] Neutrophils/100 leukocytes in Blood by Automated count 75 % [facility] Lymphocytes/100 leukocytes in Blood by Automated count 10 % [facility] Monocytes/100 leukocytes in Blood by Automated count 10 % [facility] Eosinophils/100 leukocytes in Blood by Automated count 4 % [facility] Basophils/100 leukocytes in Blood by Automated count 1 % [facility] Neutrophils [#/volume] in Blood by Automated count 4.83 10*3/uL 1.8-7 .0 [facility] Lymphocytes [#/volume] in Blood by Automated count 0.64 10*3/uL 1.2-4 .0 L [facility] Monocytes [#/volume] in Blood by Automated count 0.65 10*3/uL 0-0.8 [facility] Eosinophils [#/volume] in Blood by Automated count 0.24 10*3/uL 0-0.5 [facility] Basophils [#/volume] in Blood by Automated count 0.04 10*3/uL 0-0.2 [facility] Nucleated erythrocytes/100 leukocytes [Ratio] in Blood by Automated count 0 /100{WBCs} 0-0 [facility] ID Date Data Source [id number] 10/11/2020 03:35:00 PM EST [facility] ([facility]) Name Value Range Interpretation Code Description Data Earnestine rce(s) Supporting Document(s) Creatinine [Mass/volume] in Serum or Plasma 1.85 mg/dL 0.57-1.11 [facility] ([facility]) Glucose [Mass/volume] in Serum or Plasma 125.0 mg/dL 70.0-99.0 [facility] ([facility]) Carbon dioxide, total [Moles/volume] in Serum or Plasma 21.0 mmol/L 22.0-31.0 [facility] ([facility]) BUN/Creat Ratio 20.5 [facility] ([facility] Urea nitrogen [Mass/volume] in Serum or Plasma 38.0 mg/dL 7.0-24.0 [facility] ([facility]) Calcium [Mass/volume] in Serum or Plasma 8.8 mg/dL 8.4-10.2 [facility] ([facility]) K 4.3 mmol/L 3.6-5.2 [facility] ([facility]) Chloride [Moles/volume] in Serum or Plasma 107.0 mmol/L 98.0-108.0 [facility] ([facility]) Anion gap in Serum or Plasma 18.3 [facility] ([facility]) Sodium [Moles/volume] in Serum or Plasma 142.0 mmol/L 136.0-145.0 [facility] ([facility]) eGFR - Descent 33.6 [facility] ([facility]) eGFR -- Non- Descent 27.7 [facility] ([facility]) ID Date Data Source LIPID PANEL (CARDIAC RISK) 10/01/2020 02:17:26 AM EST eCW1 ( [facility]) Name Value Range Interpretation Code Description Data Earnestine rce(s) Supporting Document(s) Cholesterol [Moles/volume] in Serum or Plasma 160 CHOLESTEROL LEVEL eCW1 ([facility]) Triglyceride [Mass/volume] in Serum or Plasma by calculation 405 TRIGLYCERIDES LEVEL eCW1 ([facility]) Cholesterol in HDL [Moles/volume] in Serum or Plasma 39 HDL CHOLESTEROL eCW1 ([facility]) 4.102 CHOLESTEROL RISK RATIO eCW1 ([facility]) 121 NON-HDL-C eCW1 ([facility]) ID Date Data Source FREE T4 & TSH PANEL 10/01/2020 02:17:26 AM EST eCW1 ([facility]) Name Value Range Interpretation Code Description Data Earnestine rce(s) Supporting Document(s) 0.87 FREE T4 eCW1 ([facility]) 3.490 THYROID STIMULATING HORMONE eC W1 ([facility]) ID Date Data Source Comprehensive Metabolic Profile (CMP) 10/01/2020 02:17:26 AM EST eCW1 ([facility]) Name Value Range Interpretation Code Description Data Earnestine rce(s) Supporting Document(s) 91 GLUCOSE, FASTING eCW1 ([facility]) 28.6 GLOMERULAR FILTRATION RATE eCW 1 ([facility]) 39 BLOOD UREA NITROGEN eCW1 ([facility]) 1.95 CREATININE FOR GFR eCW1 ([facility]) 107 CHLORIDE LEVEL eCW1 ([facility]) 23 CARBON DIOXIDE LEVEL eCW1 ([facility]) 139 SODIUM LEVEL eCW1 ([facility]) 4.7 POTASSIUM SERUM eCW1 ([facility]) 474 ALKALINE PHOSPHATASE eCW1 ([facility]) 26 AST/SGOT eCW1 ([facility]) 22 ALT/SGPT eCW1 ([facility]) 9.0 CALCIUM LEVEL eCW1 ([facility]) 1.0 ALBUMIN/GLOBULIN RATIO eCW1 ([facility]) 0.3 BILIRUBIN,TOTAL eCW1 ([facility]) 6.7 TOTAL PROTEIN eCW1 ([facility]) 3.4 ALBUMIN eCW1 ([facility]) ID Date Data Source CBC with Differential 10/01/2020 02:17:26 AM EST eCW1 ([facility]) Name Value Range Interpretation Code Description Data Earnestine rce(s) Supporting Document(s) 8.7 WHITE BLOOD COUNT eCW1 ([facility]) 86.0 MEAN CORPUSCULAR VOLUME eCW1 ( [facility]) 36.1 HEMATOCRIT eCW1 ([facility]) 11.1 HEMOGLOBIN eCW1 ([facility]) 4.20 RED BLOOD COUNT eCW1 ([facility]) 26.4 MEAN CORPUSCULAR HEMOGLOBIN eC W1 ([facility]) 30.7 MEAN CORPUSCULAR HGB CONC eCW1 ([facility]) 16.9 RED CELL DISTRIBUTION WIDTH eC W1 ([facility]) 274 PLATELET COUNT, AUTOMATED eCW1 ([facility]) 82.9 NEUTROPHILS % eCW1 ([facility]) 5.5 LYMPH % eCW1 ([facility]) 7.5 MONO % eCW1 ([facility]) 7.2 NEUTROPHILS # eCW1 ([facility]) 3.0 EOS % eCW1 ([facility]) 0.3 BASO % eCW1 ([facility]) 0.7 MONO # eCW1 ([facility]) 0.5 LYMPH # eCW1 ([facility]) 0.0 BASO # eCW1 ([facility]) 0.3 EOS # eCW1 ([facility]) ID Date Data Source [id number] 08/23/2020 03:45:18 PM EDT [facility] Hospital Name Value Range Interpretation Code Description Data Earnestine rce(s) Supporting Document(s) Progress Note [facility] HTARPr3pSsYQDqHd16/IVBifERYzb6OlSRdbFXz2OZokZIQqK8ZoNWU7yI1bSJV6KPmOWtQiJzJhQAJ4 [facility] [file] PoztLGGMDdVfNR0RJSt= ID Date Data Source [id number] 08/07/2020 01:54:13 PM EDT [facility] Name Value Range Interpretation Code Description Data Earnestine rce(s) Supporting Document(s) Albumin [Mass/volume] in Serum or Plasma by Bromocresol green (BCG) dye binding method 3.9 g/dL 3.5-5.2 [facility] Bilirubin.total [Mass/volume] in Serum or Plasma 0.2 mg/dL <1.2 [facility] Calcium [Mass/volume] in Serum or Plasma 9.1 mg/dL 8.6-10.0 [facility] Chloride [Moles/volume] in Serum or Plasma 103 mmol/L 98-107 [facility] Creatinine [Mass/volume] in Serum or Plasma 1.98 mg/dL 0.50-0.90 H [facility] Glucose [Mass/volume] in Serum or Plasma 99 mg/dL 70-140 [facility] Alkaline phosphatase [Enzymatic activity/volume] in Serum or Plasma 414 U/L 35-104 H [facility] Potassium [Moles/volume] in Serum or Plasma 4.3 mmol/L 3.4-5.1 [facility] Protein [Mass/volume] in Serum or Plasma 6.9 g/dL 6.4-8.3 [facility] Sodium [Moles/volume] in Serum or Plasma 140 mmol/L 136-145 [facility] Aspartate aminotransferase [Enzymatic activity/volume] in Serum or Plasma 28 U/L <32 [facility] Urea nitrogen [Mass/volume] in Serum or Plasma 28 mg/dL 6-20 H [facility] Osmolality of Serum or Plasma by calculation 295 mosm/kg 275-300 [facility] Creatinine/Urea nitrogen [Mass Ratio] in Serum or Plasma 14 [facility] Bicarbonate [Moles/volume] in Serum 25 mmol/L 22-29 [facility] Alanine aminotransferase [Enzymatic activity/volume] in Seru m or Plasma 25 U/L <33 [facility] Anion gap 3 in Serum or Plasma 12 mmol/L 8-15 [facility] Glomerular filtration rate/1.73 sq M pre dicted among non-blacks [Volume Rate/Area] in Serum or Plasma by Creatinine-based formula (MDRD) 28 mL/min/1.73m2 >60 L [facility] Glomerular filtration rate/1.73 sq M pre dicted among blacks [Volume Rate/Area] in Serum or Plasma by Creatinine-based formula (MDRD) 32 mL/min/1.73m2 >60 L [facility] ID Date Data Source [id number] 08/07/2020 01:59:38 PM EDT [facility] Name Value Range Interpretation Code Description Data Earnestine rce(s) Supporting Document(s) Leukocytes [#/volume] in Blood by Automated count 3.7 10*3/uL 4-10 L [facility] Erythrocytes [#/volume] in Blood by Automated count 3.97 10*6/uL 4.1- 5.3 L [facility] Hemoglobin [Mass/volume] in Blood 11.0 g/dL 11.5-15.5 L [facility] Hematocrit [Volume Fraction] of Blood by Automated count 33.3 % 3 6-45 L [facility] Erythrocyte mean corpuscular volume [Entitic volume] by Auto mated count 83.8 fL 80-96 [facility] Erythrocyte mean corpuscular hemoglobin [Entitic mass] by Automated count 27.6 pg 27-33 [facility] Erythrocyte mean corpuscular hemoglobin concentration [Mass/volume] by Automated count 33.0 g/dL 32.0-36.0 [facility] E[facility]throcyte distribution width [Ratio] by Automated count 15.9 % 11.5-14.5 H [facility] Platelets [#/volume] in Blood by Automated count 289 10*3/uL 150-400 [facility] Differential cell count method - Blood [facility] Neutrophils/100 leukocytes in Blood by Automated count 58 % [facility] Lymphocytes/100 leukocytes in Blood by Automated count 16 % [facility] Monocytes/100 leukocytes in Blood by Automated count 15 % [facility] Eosinophils/100 leukocytes in Blood by Automated count 9 % [facility] Basophils/100 leukocytes in Blood by Automated count 2 % [facility] Neutrophils [#/volume] in Blood by Automated count 2.15 10*3/uL 1.8-7 .0 [facility] Lymphocytes [#/volume] in Blood by Automated count 0.59 10*3/uL 1.2-4 .0 L [facility] Monocytes [#/volume] in Blood by Automated count 0.56 10*3/uL 0-0.8 [facility] Eosinophils [#/volume] in Blood by Automated count 0.33 10*3/uL 0-0.5 [facility] Basophils [#/volume] in Blood by Automated count 0.07 10*3/uL 0-0.2 [facility] Service comment [facility] Occasional larger platelet present ID Date Data Source [id number] 05/31/2020 12:13:09 PM EDT [facility] Name Value Range Interpretation Code Description Data Earnestine rce(s) Supporting Document(s) Progress Note [facility] DRZGGk0yBiMUGzZg08/SXDvbRSWtw1UgXNxiLUg9JLnwAFKtS4AkPHY1pF5zYZF6HTmJExWqTpElMeXs lbm [file] [id number]== ID Date Data Source [id number] 05/31/2020 12:13:04 PM EDT [facility] Hospital Name Value Range Interpretation Code Description Data Earnestine rce(s) Supporting Document(s) Progress Note [facility] IOJAYo4eSjRDZvSx66/BTVwrRKUon1VvBVyzUMn2TZhrQKPsP9McAYM2jB0cMTV2OXgMBtRvGfZzQxFt lbm [file] keg inspector+dWRwAgUwLmHnU3fxuAbuYen5zn98cu7skB8dPfvhJWYubPsXtfl7NigETfI0h07Xq0jI1GaTcodT +K0W1TNcmKhddXHzMvYEvK6nMFhZe2znQbIpF8LrOU 7XYv8S5z3UxLSF9WcubVGyVrmxvcQgyEe9b90Bq7iZRqjafX/OD230mCIwuevMUTNHiS9fkexEeU9Z2r c9d/HdaOkHAyfJ8DJaxhKBm4iBfzs8xZNKol/QgNE82kHX81ijsuwVdpdwtg30ybOFKyhqjnOVVzMzHW ucHnaZ9x03KNFZPvljWGs3gFDbdXDj4abT4FLGjV3f ZEDB6lRskslR1gA34+E4CmbBgfYm4mjRKkoIpPXh2uWRt8ino+Dws8001jQGVW+fdvwVVzfka369clpo +bMhHnbKy1nDTXOwWZGJgeKklyrNOxwJgE4kZhv2bZoJ5buR0rYDha1jNCe2sJ144/VVZbg4jLTpAwqt MA3PxqtXSwZD1qm229geGedyO9b9dDieoZRFxuGdd/ 2rWw0By3Q2aUwz4UYNZm2cpuQ/PFU4I+gL26CZL0SRg181FQEjPtu+wrdJwOahfPiQkPKGFguZ4ZWJuk QBAwYM+J0j8OHaHbP7CXEJQODPNOFUMWRNM6u9A2KLMVVHVHyaGDUXs0OINKOWUTywJVGHl9CIOYCUML vaCZJEd8UPSDHTXMlfRZPAp7YDZDFRYNxsXMBCc1WK [file] ICAgICAgICAgICAgICAgICAgICAgICAgICAgICAgIC CbZSVrKBLcACJwAZJoOSBzTIDuUZLtBW4WWBOjVXCbXTKnPKMyWVZpWCJwDSQtLUNgGUFpNLLmPARpFE AgICAgICAgICAgICAgICAgICAgICAgICAgICAgICAgICAgICAgICAgICAgICAgICAgICAgICAgICAgIC RxUZJrGU0FJQZhZSCrDAPsXSMbQLTtFXYdICNsGUIy ICAgICAgICAgICAgICAgICAgICAgICAgICAgICAgICAgICAgICAgICAgICAgICAgICAgICAgICAgICAg XJLaDTXgIGAlLBUgCGWxFT7HDBGfNXKbKJVnPEMfQKUdMXVgYYFdZRDxKPMsYSSwZKCwXBOfIADjQSTb ICAgICAgICAgICAgICAgICAgICAgICAgICAgICAgIC PjJTFkQBToIZWyROWbTHXkMVMoGVFtKBZzNH0GYLEdRUYvQVEzFZQyDMKpGDKyBRKfZPTvNXQuVTHfWK AgICAgICAgICAgICAgICAgICAgICAgICAgICAgICAgICAgICAgICAgICAgICAgICAgICAgICAgICAgIC JrQLPwPVTsLW8IUFRzLJSoMZBkAQBgMLDwDTYgBRWs ICAgICAgICAgICAgICAgICAgICAgICAgICAgICAgICAgICAgICAgICAgICAgICAgICAgICAgICAgICAg XHAnGDSaMFVbYKFrNJItMZTlHQ1ESFTnZWErHWXhGOTyVHMxLVSnOQSsEADcWRRyOECnEHZhVVEtKBRy ICAgICAgICAgICAgICAgICAgICAgICAgICAgICAgIC LuQQMzNULpSDEpFICjZXYbZJRvBSSnNOZpJZTkQN4JDYUiEROvCXTqAFIqBXBhJCHuBRDhMHDeQVQgCI AgICAgICAgICAgICAgICAgICAgICAgICAgICAgICAgICAgICAgICAgICAgICAgICAgICAgICAgICAgIC WcAEFyBZDjNOSwCK3KDNKxAAElFFAgHSNzPUHuSCHj ICAgICAgICAgICAgICAgICAgICAgICAgICAgICAgICAgICAgICAgICAgICAgICAgICAgICAgICAgICAg JKGmRVNsDPDaGCBfBOZiFETdWNMuCU9VJBVtKICqYMXeJVZuZWTjVMYxSOBvCCBtKAYeVEOhRVCaPPMh ICAgICAgICAgICAgICAgICAgICAgICAgICAgICAgIC QnAWJlTYDgFVIuGUUlLXFfOFRhRHKdVYEfZNDqVPMvYW8YRS96oQXge9X8TZStYK7zabq/Nr5CKIqple EpfCZjCU8DKvBhTJ2bgk1IWrIbKR7agc7ZRBtFFjYvR5J8zUZfMPDhMFZYWfLmH21vDQnrOk37UYczDS BsSqTfQTb6Xk8JOrDeU0huLUEoQtG4ZFBwNoJ1QIEz SmJ7UVPnPlSrGCXoXPOtDCDoCRXDMMX6HPHyNiUvBiUfYBMlOQ5ORBPzB664dmAbKs8IHv0EBzUsCX5x kd1DAqigXAIsLitXKgw8IEubHU8NhJTbxLHqZFWmZZFYDwVgG9pun9ZvJoyaHCYMWZusMT5Pu0BzyYMs DQo+Uu2CVM0jj1UxGSxjWQUaBK3imn2YTWfPXtMfI4 YrxLqiUKSof9cqBXVoBD1ksNDaLGL4RCljxqXkKE1mUEyhqPnxRdHuFDIuVb6hJX0sSIGgAJYyGjG6LI FYCA8ZSBGkZFGszEVsDTMzNNTXZV3ZDMpvYSI7ZRRnccHtoLRaUWkiGM1OEAFysdRzAuslFYYFPTz+Pg 6CXD8lo8OnRNh4ZENbVW8tub0ZCWiZNnTpM9I1tBWw N8K4TNazFy4JYTLjDTWpFyRvHENTMIlaXA4SCL9culH6WN7ObYQoOTGwKQVwqTEbUBo0G70icPXmASjb VT7ILAO+Chandrika+Mh8VXSAvUXGzDBKyWaCyZXYEPcYdC4QyZ3TIy7QbU3BkDY37tSuxocUhCPjxIV0OGQ9r RDPaXNJGRS3ZrQTlfA4cxgSvVBIzCTQZIzAsI42vlF WkGCVbAFE1HAVbAp6BELAeC2DumdNrbAdnmtIaTRAnWBTVFV8JVStkmoFsiIKsqQfnEZ51cZhoEK4KFo 3RZnQyQY1knd0YpKXlHl7WNNJ7BP1TNOAnJHWcGEQnFEX7AWFdJdKzHVhvOYDqSZTfHBR6HBFrAJTmLB 9XQcSnAXVyKlX7WbFaCVKkIVSgxd7GRLQxNWK6KrY6 XFCrMXEjZGRiHKyaHEFaVAJlNHI3XJRfUSBeKI3ZBgDlDWDqYVX0GQVfKEEtOGHshd8KTRDgDNEtMCZ4 KlGgVECnLXFvIVshZBKiKGC7DjVjOXVlAUTzOO1BPjHbFXWmGOa4VifaVAXqRYVywg4DNOGxKPApRKs9 HSWqRYUlKPOdRFvbRMFoSUZsYCPlFIIqJDWtQG0ATz PhUEYkNCXvVCLsYIKmAUWqyy8UJJAaLZDxSBC7CxZpVXXwWHDzURhqUMRjNAH3Yvf2ICIeTFOtGY1AHk CnSATcUTs6QTFrEQLdQAExde1KRRMpDEJcRLD7FJKwHNByHCXaADcpCBMbZAH2VYB2YBRiUVYfDU4TRn AeWXXoSdP0YcZeMIXvPMFrlp0QCHZpYZGvEtF7TONs GTUgXECrCEijCHVnDKGrFETzDOSdXGClQY0ZEfQqHYOsWyIpPedgDZReMHBodi2AXLJyRCXqDgYzTLKg YNYeSOPiJShiOIQiZAN6QwgtJVJuTLYgRL6BUcZuEQTlYtR6EPGvQLAaBUUhhm0XQNHdZGQcAKd4DWMk IUUnWSYmALwhQPYxSSS8ClZaWIEwCDMbFF3TXkVrBT EsZhF8AkYkTKMiKWXxpp8GFYDfZNUbUtupKKGcKAMaQXSmVVpyVMIpHZP9ISu8TCIgAKZmNC9WJfChGF TdIwjwCgKwPVMrMSSfch4JXHXkRWCaWUN6DIZlZUZfHGGtPRdjZVVxEVM1GpHeKNJxCFMxIB9MOrPpMR AoPmp4ZUBlLACpPRNczi2EKCBmFIRjMWe4FRHzCEQx RTCnPFyiAWEsMCI6XAx9OGIoGAXzXP0GWoBvCTEvKYH7IWQpILMmNBXcet1VEDTfBOS6PWG3XGLrZYHt KVZhECjnZIEuXEp1WINuOTRhSYHdPH5XFrPePGXuZwQ0QCuvWTUwTQJzxf0WLMAmPRD7XwA7GVPaPRPb FHTvGVmzYYArUTx9XbR7AKHeLUQwKM0TKgNgQZwzOM JDEwv9KMjgU6s8AXC6VC8ZQ9Gll9McWPImMNVSJOoaAQ4dliJsHLLhCv7VT0sUZuc3ZzNnYJFtOWLpUX W1ZfRrZPbaCSi8MJHjPXS5PRRrWO4tUUS0ORCnLcXfVRX1PWShNnF8NLVaTEPkVIEqLBOzYuZ6ZtBvRQ 6ZIp1IHeH6ZER3nFHkRs2GXXb8NJyjGQodCTHIDv3C ID Date Data Source [id number] 04/09/2020 01:34:00 PM EDT [facility] ([facility] Name Value Range Interpretation Code Description Data Earnestine rce(s) Supporting Document(s) Protein [Presence] in Urine by Test strip Laboratory test result [facility] ([facility]) [facility]a Nitrite Laboratory test result [facility] ([facility]) Glucose [Presence] in Urine Laboratory test result [facility] ([facility]) Blood [Presence] in Urine by Visual Laboratory test result [facility] ([facility]) Ua Leuko Laboratory test result [facility] ([facility]) Color of Urine Laboratory test result [facility] ([facility]) Ketones [Presence] in Urine by Test strip Laboratory test result [facility] ([facility]) Clarity of Urine Laboratory test result [facility] ([facility]) pH of Urine by Test strip Laboratory test result 5.0-7.5 [facility] ([facility]) Bilirubin.total [Presence] in Urine by Test strip Laboratory test res ult [facility] ([facility]) Ua Specific [place] [facility] test result 1.003-1.030 [facility] ([facility]) Urobilinogen [Mass/volume] in Urine by Test strip Laboratory test result 0.0-1.0 [facility] ID Date Data Source [id number] 04/10/2020 10:11:15 AM EDT [facility] Name Value Range Interpretation Code Description Data Earnestine rce(s) Supporting Document(s) WBC 5.9 10*3/uL (4.1-11.0) [facility] RBC 3.84 10*6/uL (4.00-5.40) L [facility] QA FLAGS AND/OR RANGES MODIFIED BY DEMOG RAPHIC UPDATE ON 04/10 AT 1010 HGB 10.8 g/dL (12.0-16.0) L [facility] QA FLAGS AND/OR RANGES MODIFIED BY DEMOG RAPHIC UPDATE ON 04/10 AT 1010 HCT 32.5 % (36.0-47.0) L [facility] QA FLAGS AND/OR RANGES MODIFIED BY DEMOG RAPHIC UPDATE ON 04/10 AT 1010 MCV 84.8 fL (80.0-95.0) [facility] MCH 28.2 pg (27.0-32.0) [facility] MCHC 33.3 g/dL (32.0-36.0) [facility] [facility] - CORE RDW 24.2 % (10.5-14.5) [facility] - CORE PLT 179 10*3/uL (150-450) [facility] - CORE MPV 7.2 fL (7.1-10.7) [facility] - CORE NEUT % 68.4 % (35.0-75.0) [facility] - C[facility] LYMPH % 13.9 % (16.0-52.0) L [facility] - C[facility] MONO % 9.4 % (0.0-8.0) [facility] [place] [facility] - CORE EOS % 7.7 % (0.0-5.0) H [facility] [place] [facility] - CORE BASO % 0.6 % (0.0-4.0) [facility] - CORE NEUT # 4.0 10*3/uL (1.8-7.7) [facility] - C[facility] LYMPH # 0.8 10*3/uL (1.2-4.8) L [facility] - CORE MONO # 0.6 10*3/uL (0.0-0.8) [facility] C[facility] Eosinophils [#/volume] in Blood by Automated count 0.5 10*3/uL (0.0-0 .5) [facility] [place] [facility] - CORE BASO # 0.0 10*3/uL (0.0-0.2) [facility] ID Date Data Source [id number] 04/10/2020 10:11:15 AM EDT [facility] Name Value Range Interpretation Code Description Data Earnestine rce(s) Supporting Document(s) SODIUM 139 mmol/L (136-145) [facility] - CORE POTASSIUM 4.6 mmol/L (3.6-5.2) [facility] [place] [facility] - CORE CHLORIDE 106 mmol/L (100-108) [facility] [place] [facility] - CORE CO2 25 mmol/L (22-31) [facility] [place] [facility] - CORE ANION GAP 8 mmol/L (7-16) [facility] [place] [facility] - CORE UREA NITROGEN 31 mg/dL (7-24) [facility] - CORE CREATININE 1.45 mg/dL (0.60-1.00) [facility] - C[facility] QA FLAGS AND/OR RANGES MODIFIED BY DEMOG RAPHIC UPDATE ON 04/10 AT 1010 BUN/CREAT RATIO 21.4 RATIO (10.0-20.0) H [facility] [place] [facility] - CORE GLUCOSE 78 mg/dL (70-99) [facility] [place] [facility] - CORE CALCIUM 8.5 mg/dL (8.4-10.2) [facility] [place] [facility] - CORE TOTAL PROTEIN 6.6 g/dL (6.4-8.2) [facility] - CORE ALBUMIN 3.3 g/dL (3.5-4.6) L [facility] [place] [facility] - CORE GLOBULIN 3.3 g/dL (2.7-4.3) [facility] [place] [facility] - CORE ALB/GLOB RATIO 1.0 RATIO [facility] - CORE ALKALINE PHOSPHATASE 408 U/L (45-117) H [facility] [place] [facility] - CORE BILIRUBIN,TOTAL 0.3 mg/dL (0.0-1.0) [facility] - CORE PLEASE NOTE:Total bilirubin results may be falselyelevated in patients taking Eltrombopag. AST (SGOT) 13 U/L (11-39) [facility] [place] [facility] - CORE ALT (SGPT) 23 U/L (12-78) [facility] [place] [facility] - CORE GFR 51 ml/min/1.73m2 (>59) L [facility] - CORE GFR ( AMER) >60 ml/min/1.73m2 (>59) [facility] [place] [facility] - CORE GFR INTERPRETATION [facility] [place] [facility] [place] [facility] [place]AL [place]ID[place] FUNCTION OR MILD DISEASE - GFR >OR= 60CHRONIC KIDNEY DISEASE - GFR 15 - 59RENAL FAILURE - GFR <15 Est. GFR calculation based on the MDRDstudy equation, which assumes a steadystate for creatinine. Est. GFR should notbe used for medication dosing. ID Date Data Source [id number] 04/09/2020 01:12:00 PM EDT [facility] ([facility] Name Value Range Interpretation Code Description Data Earnestine rce(s) Supporting Document(s) Protein [Presence] in Urine by Test strip Laboratory test result [facility] ([facility]) Glucose [Presence] in Urine Laboratory test result [facility] ([facility]) Ua Nitrite Laboratory test result [facility] ([facility]) Ua Leuko Laboratory test result [facility] ([facility]) Color of Urine Laboratory test result [facility] ([facility]) Blood [Presence] in Urine by Visual Laboratory test result [facility] ([facility]) Ua Specific [place] [facility] test result 1.003-1.030 [facility] ([facility]) Ketones [Presence] in Urine by Test strip Laboratory test result [facility] ([facility]) Clarity of Urine Laboratory test result [facility] ([facility]) Bilirubin.total [Presence] in Urine by Test strip Laboratory test res ult [facility] ([facility]) pH of Urine by Test strip Laboratory test result 5.0-7.5 [facility] ([facility]) Urobilinogen [Mass/volume] in Urine by Test strip Laboratory test result 0.0-1.0 [facility] ID Date Data Source [id number] 03/13/2020 02:41:40 PM EDT [facility] Name Value Range Interpretation Code Description Data Earnestine rce(s) Supporting Document(s) Progress Note [facility] GHXZQa4zIxIYWtVl79/UOMmaJJJti6KgMLihLVl7ALgnTZFpK3LcXYK4gG9oWCL7XMuTRmVsGcLfKVJ4 lbm [file] LzEVFvOIIdRXA4RIXhQaP+PK8uRVt+Lc1Dz3DugmX6zwCqMTdjZFExMe4BESRWK8CIQw== ID Date Data Source [id number] 03/13/2020 10:25:40 AM EDT [facility] Name Value Range Interpretation Code Description Data Earnestine rce(s) Supporting Document(s) Progress Note [facility] YPQMFi7eMyXXIbLn98/WVNemQILuf9ItMQyjZKl6RVebEPKpS7LtRFU1lC2xOKC5JRcTGuYfWkQbSXW8 lbm [file] AgICAgICAgICAgICAgICAgICAgICAgICAgICAgICAgICAgICAgICAgICAgICAgICAgICAgICAgICAgIC AgICAgICAgICAgICAgICANCiAgICAgICAgICAgICAg ICAgICAgICAgICAgICAgICAgICAgICAgICAgICAgICAgICAgICAgICAgICAgICAgICAgICAgICAgICAg ICAgICAgICAgICAgICAgICAgICAgICAgICANCiAgICAgICAgICAgICAgICAgICAgICAgICAgICAgICAg ICAgICAgICAgICAgICAgICAgICAgICAgICAgICAgIC AgICAgICAgICAgICAgICAgICAgICAgICAgICAgICAgICAgICANCiAgICAgICAgICAgICAgICAgICAgIC AgICAgICAgICAgICAgICAgICAgICAgICAgICAgICAgICAgICAgICAgICAgICAgICAgICAgICAgICAgIC AgICAgICAgICAgICAgICAgICANCiAgICAgICAgICAg ICAgICAgICAgICAgICAgICAgICAgICAgICAgICAgICAgICAgICAgICAgICAgICAgICAgICAgICAgICAg ICAgICAgICAgICAgICAgICAgICAgICAgICAgICANCiAgICAgICAgICAgICAgICAgICAgICAgICAgICAg ICAgICAgICAgICAgICAgICAgICAgICAgICAgICAgIC AgICAgICAgICAgICAgICAgICAgICAgICAgICAgICAgICAgICAgICANCiAgICAgICAgICAgICAgICAgIC AgICAgICAgICAgICAgICAgICAgICAgICAgICAgICAgICAgICAgICAgICAgICAgICAgICAgICAgICAgIC AgICAgICAgICAgICAgICAgICAgICANCiAgICAgICAg ICAgICAgICAgICAgICAgICAgICAgICAgICAgICAgICAgICAgICAgICAgICAgICAgICAgICAgICAgICAg ICAgICAgICAgICAgICAgICAgICAgICAgICAgICAgICANCiAgICAgICAgICAgICAgICAgICAgICAgICAg ICAgICAgICAgICAgICAgICAgICAgICAgICAgICAgIC AgICAgICAgICAgICAgICAgICAgICAgICAgICAgICAgICAgICAgICAgICANCiAgICAgICAgICAgICAgIC AgICAgICAgICAgICAgICAgICAgICAgICAgICAgICAgICAgICAgICAgICAgICAgICAgICAgICAgICAgIC AgICAgICAgICAgICAgICAgICAgICAgICANCjw/eHBh A2axbDLljrM6W4sdSl3AUf9JIF8hz4AaPKLfTDujkcSrFduLJqSrFCBqDwaNYiw4GXcuLW3ZqUHuN9Ka J7WnTYqbDZ6IPUZaBHGgeQRyLWJoLGIqWaL3NYLoJJryIA1ByPSqVAepUSWgNMYkWzBwRMXmQLOeJGAh KBFfBWKQQLYrWXUhAeKjNRLlNHAkDG1QOLMzJ522wc TjAe5PSd9UVkLdND2vha8BQyBrTTMsRhwINgh6SEflKN0PqBUjlFBsIxCkXCYIOvPhZ8yxo0PmMtByZZ FIBUneTO1Lb2VnxSFvMOl+Jn0WTY1nl5QvVNyvOwNmUZ0yqm5VTFvSPlDaU3BpqXgaXTLym3ldNDOvME 2txVSaCZK7FFWmkJTzmRITZMshRVzjMLPmVHGzWE7v DA9hGQScCXL1GsO5SKOWEX1QSXLiGQXxdHOiLPDlIPNUQX7UZIniHQS1MTEbklGuuLPnVKsfTP6FVJSa bnQgMzIgMCBSDQo+Ml4TMO2uh8UbXCqdMQRaSH0prf7IRPnUWlFkN7V2xCYiY2U4AUkdWu1ZFWQuBZLe TkIsTXPMVZefCY9VHM0axkN5IQ1VeKKhLDYxUQYfqZ XdKPv1T07giITeNAhlHZ0ROMI+Chandrika+Vx3UAAPnFPGmRVBiHrXxMDOOOgCaA2JzD1YRj1MbR2BuPJ43vS wmwlMyMXgxUM2EYO9iPGOpOOUKDU6TrZZgkU5ntbDbHxSkHETBJaLsP21uoMLoBTCePYZsWFIxCv7MIU LuE5HatsDjhYahgzWoAOQeHAAKAE6SHAojovOgbVOo oShmNV14yMrlCY9CMz1HSvOpDC8kyc0PtQXlZw2ZEENwSB1MBYDgLIXqFGKtYVE9SEJnAfZhLJvzLFKz UVOjFPT2SXQxSCLkMZ8OTtXvALOyTLM0BDqaARGcQPGxbs1FCQXoPDN5HpC6JOZvZMTaXLCzGNjzMZEe KICmOEO7RTJwTUUvWB5TKnRiKTBwMYV3SwBxBRNaEZ Jyfi2ZQRUgWJBqFJjeAaSpBDTuZKOrDOxyMZKnOJO3AcV2BSFuNPFtZO4HPfVjSVUsKBr6OeYjDDKrQL Ibwn5UJRGhQCMtBEA3FpZzFOMpJRJpGKflWORlOWPmWNi7UCQfFODpCD9GDvNoLAQnPHR3FiZkNZLhRF Fghq6JWUOpMVReTNA2WtOeEQNyPQAjWKuuXOFzATS3 RNM0GGPaMXCsXH1TGvMeCKPqHNd1ENXgIYHxFXIilc7RHTKsRZQlRglmCuRlJKDhWFWiCFsxXUCiNVE3 ZTR6DQTxXGXdIL6BOrDvSQRbLyK7RHtoCUOmFMQlgq3TNNOvENWqHWV8XLDbYCFdUVQrLAxqAILvQUA4 Tul4YXOlPVDxQE9LUnMnUCGzSgLgEhfuXVGmTMDmoh 3WLKIeNLKvInNqFZBnFVBpJIFvFYjoRDXzDXY6TdA5NXFsMDMaAL2KUcWhNPQsNicsVGscOFIoMPXyup 2GFYNsPUCcLSL7BlWjXGHvHHRtITmvNPDqESH9CfxeOEWxPDOxOZ1YReOzDXUjSsg4YGWxHCIfBLJbkv 5YEUZkNFBoKCS0JbAlEHHcCVQsQBhgSEAeURZmLEKg VFWrBPGgAQ1LOiEwMZWiRIKiXQndOVUdCGPbcr8ECWTaTRZ7QWY6DkDjBGDeBWQmCCbxKWGuMBMkGGO7 HPUeMZYcIQ3LFkFxQPPfUXRcMGXtOLPqNUYhgb5BNORoEVI3PhK5OxCfQAKcRMVcKYvxPYOuOTKrKDBm LLErUQAvSA9FUsJuUGxvHPJNEbb6QBieD8a6RNIqPZ 4CN5Vum7IcSoTeZIPSBOmiEU5hhpIlHBUyGa1VJ8cMRch5P9UnKWprUBG6RMY2AAHwWXBpKbddWADzUx PvACCxIN3xWTPoUaM2VGW7VMr6YmjhFOC0NOEeGSKbWhQsPGX1SWR8CvIoJS4OOp5WRhL0QOR4yXUgCc 0KHPB9XFbUMxZwJX9UXNx= ID Date Data Source [id number] 03/13/2020 10:14:42 AM EDT [facility] Name Value Range Interpretation Code Description Data Earnestine rce(s) Supporting Document(s) Leukocytes [#/volume] in Blood by Automated count 9.8 10*3/uL 4-10 [facility] Erythrocytes [#/volume] in Blood by Automated count 4.44 10*6/uL 4.1- 5.3 [facility] Hemoglobin [Mass/volume] in Blood 11.5 g/dL 11.5-15.5 [facility] Hematocrit [Volume Fraction] of Blood by Automated count 33.9 % 3 6-45 L [facility] Erythrocyte mean corpuscular volume [Entitic volume] by Auto mated count 76.4 fL 80-96 L [facility] Erythrocyte mean corpuscular hemoglobin [Entitic mass] by Automated count 25.8 pg 27-33 L [facility] Erythrocyte mean corpuscular hemoglobin concentration [Mass/volume] by Automated count 33.8 g/dL 32.0-36.0 [facility] distribution width [Ratio] by Automated count 20.6 % 11.5-14.5 H [facility] Platelets [#/volume] in Blood by Automated count 278 10*3/uL 150-400 [facility] Differential cell count method - Blood [facility] Neutrophils/100 leukocytes in Blood by Automated count 86 % [facility] Lymphocytes/100 leukocytes in Blood by Automated count 5 % [facility] Monocytes/100 leukocytes in Blood by Automated count 5 % [facility] Eosinophils/100 leukocytes in Blood by Automated count 2 % [facility] Basophils/100 leukocytes in Blood by Automated count 2 % [facility] Neutrophils [#/volume] in Blood by Automated count 8.43 10*3/uL 1.8-7 .0 H [facility] Lymphocytes [#/volume] in Blood by Automated count 0.49 10*3/uL 1.2-4 .0 L [facility] Monocytes [#/volume] in Blood by Automated count 0.49 10*3/uL 0-0.8 [facility] Eosinophils [#/volume] in Blood by Automated count 0.20 10*3/uL 0-0.5 [facility] Basophils [#/volume] in Blood by Automated count 0.20 10*3/uL 0-0.2 [facility] ID Date Data Source [id number] 03/13/2020 10:16:18 AM EDT [facility] Name Value Range Interpretation Code Description Data Earnestine rce(s) Supporting Document(s) Albumin [Mass/volume] in Serum or Plasma by Bromocresol green (BCG) dye binding method 4.2 g/dL 3.5-5.2 [facility] Bilirubin.total [Mass/volume] in Serum or Plasma 0.2 mg/dL <1.2 [facility] Calcium [Mass/volume] in Serum or Plasma 9.4 mg/dL 8.6-10.0 [facility] Chloride [Moles/volume] in Serum or Plasma 100 mmol/L 98-107 [facility] Creatinine [Mass/volume] in Serum or Plasma 1.42 mg/dL 0.50-0.90 H [facility] Glucose [Mass/volume] in Serum or Plasma 135 mg/dL 70-140 [facility] Alkaline phosphatase [Enzymatic activity/volume] in Serum or Plasma 320 U/L 35-104 H [facility] Potassium [Moles/volume] in Serum or Plasma 4.0 mmol/L 3.4-5.1 [facility] Protein [Mass/volume] in Serum or Plasma 7.0 g/dL 6.4-8.3 [facility] Sodium [Moles/volume] in Serum or Plasma 139 mmol/L 136-145 [facility] Aspartate aminotransferase [Enzymatic activity/volume] in Serum or Plasma 12 U/L <32 [facility] Urea nitrogen [Mass/volume] in Serum or Plasma 28 mg/dL 6-20 H [facility] Osmolality of Serum or Plasma by calculation 295 mosm/kg 275-300 [facility] Creatinine/Urea nitrogen [Mass Ratio] in Serum or Plasma 20 [facility] Bicarbonate [Moles/volume] in Serum 24 mmol/L 22-29 [facility] Alanine aminotransferase [Enzymatic activity/volume] in Seru m or Plasma 11 U/L <33 [facility] Anion gap 3 in Serum or Plasma 15 mmol/L 8-15 [facility] Albumin/Globulin [Mass Ratio] in Serum or Plasma 1.5 [facility] Glomerular filtration rate/1.73 sq M pre dicted among non-blacks [Volume Rate/Area] in Serum or Plasma by Creatinine-based formula (MDRD) 42 mL/min/1.73m2 >60 L [facility] Glomerular filtration rate/1.73 sq M pre dicted among blacks [Volume Rate/Area] in Serum or Plasma by Creatinine-based formula (MDRD) 48 mL/min/1.73m2 >60 L [facility] ID Date Data Source [id number] 02/05/2020 02:24:11 PM EDT [facility] Name Value Range Interpretation Code Description Data Earnestine rce(s) Supporting Document(s) Progress Note [facility] PAHCWx4fBsSJRdZo37/DFYgkXVNtp4MxQDmiLOf7JYmgNUBfG5ZxTTK4pA7dVKL8BHpXUlIrBuUyHeS0 lbm [file] +fde/t2FK7e82H4S89HC0e+ZpU3DyXMjesoG31T92VgPk7v0fYZyB2fwsMq3wDPAX87yQHbyLOjNy/José Miguel [file] lYQjDg4IHnG6JRBCTkXrTC8EIVz= ID Date Data Source [id number] 02/05/2020 02:24:06 PM EDT [facility] Name Value Range Interpretation Code Description Data Earnestine rce(s) Supporting Document(s) Progress Note [facility] AUMWWa6vWnLHBvEa19/AYSrqVJWku0WpKUzxTJn0YHryQJTxG4YpUHY1dK3oKTW2PBeWZtDwDeYbBkR6 lbm FkYjdKQmTdYQLrLcmTArDpCXanYqgwwJJmZH0XvUH2XEBkH05mSDEvXYSuV6YvBCPyEcG+Ik3OVEWptS QlSK8DAbkM9Y3uc4nRQc8qgL/JdhQUQ9Vpwtk3pnAFF6Fo6AKshOSE15SAdkPHQMsrFqPzp8726Q2bBp 17Zl0D15HkvdJP6Mku2yT5h5k64n/mIAocxzHFv/Wf CSYUhcV070/U7rPDxf/b/GjjXz0OJ9eg1cW0K6/9/ZiwY6hJD75TjXxrf/ijpQmJ1usFxLCeu090rV7j /4Hhe0gv4Q4d2KMeqsqWasez4/cl8kA2MiFGEV4dxUx/vCTc3AZmrIk2tp9CPMfKz5OJVr6ApFAwKd+2 U0z0e9X3Nq59ur0pa64LqIR1acM5C1bkR9cq60d6hm [file] ICAgICAgICAgICAgICAgICAgICAgICAgICAgICAgICAgICAgICAgICAgICAgICAgICAgICAgICAgICAg MSVjGGTcGMBuZKDoOYFkERYpCHPdDZTxACFmPOKbOVYmWJCvIATmOW2DNBQdCYTqYKBbVAXtLBUoMLOo ICAgICAgICAgICAgICAgICAgICAgICAgICAgICAgIC CmVSAkUQLhQQZqXEVgKKEjJAKeGQRpMFDvIAFoPCJxJGMoADRfUDTcPIXzCBOvYKJaJK2IMLQiQJLsKG AgICAgICAgICAgICAgICAgICAgICAgICAgICAgICAgICAgICAgICAgICAgICAgICAgICAgICAgICAgIC AgICAgICAgICAgICAgICAgICAgICAgICAgICAgICAg ZV7HHLIrBXYhUEIaTZUoIGLiZMHvFFSaFIPtTIDkXSZzZNAbRDYoIDHoJWZpRJIqZFTsRNCiWBBzGYVc IKCcJNKpZMHeJMOdECUnTPBcALSsLHPuUCCcPIJnSGPjVNJkWTScSXEmKI0VGDKgFMYsDIHwCXByKSZt ICAgICAgICAgICAgICAgICAgICAgICAgICAgICAgIC WvFUUtDYBtSYVnVZDoOBTdGUNiWURtUMJqZQQqCDYeCWPcAXJoDFMeLLKjLQZlHLIyDWBsSW5HDHClLN AgICAgICAgICAgICAgICAgICAgICAgICAgICAgICAgICAgICAgICAgICAgICAgICAgICAgICAgICAgIC AgICAgICAgICAgICAgICAgICAgICAgICAgICAgICAg FMOhCM5WWJFgXEHuZJXgAKQxXBSjSMQhTPXsJODqJSKfVMJwHNGrSDYqRRXrZUCmTUJqENDrBTGkZORq NPPvQTGmJEIwUYYmYYQfLDNhTBIjHCJlDBCzSLRgGDOcDDCgMSOgVJLgBRNzFH0ANJXcQGYfUPLvFZRx ICAgICAgICAgICAgICAgICAgICAgICAgICAgICAgIC DvARLzYQBlMGYfVTGeKPMiTRMlQIGkMUMvTIVrYRMxLKUoHBFqWBGsUTOaZHNsIQGdJGDmTXRrHQ0XFR AgICAgICAgICAgICAgICAgICAgICAgICAgICAgICAgICAgICAgICAgICAgICAgICAgICAgICAgICAgIC AgICAgICAgICAgICAgICAgICAgICAgICAgICAgICAg GQKoFRHcBV9KYRQdPWZhCMQpSNVpFIGlDJAnLDKjQWIuTILjJNRbKIDoRXFnBQRyOUNkVVXdRKDpQJAe GXGqSZWnYOTqOPIuSGErGCWtZGZhTRRqKOBqAXEnCGQpPAQcEWIoKDTeIZPgCYSdTE4RSC16iUWia3T6 XTGrII2ypvt/Xx8CPXpsslRkeEYiXS6ZVaWkNL3mpj 2KBoTlBV3gvy0MJAyHIhDeF3Y0kYBiIYIgAZLXTiGaC66lMWmjMp98KIwnEPVbSeUmXKz7Un6PZjMjG3 xkKFFfBuH4MTLgVoE5CKGfVuK4RNEbNlBhAKTjPXOgALFqVSVBGHG4YBXrBeJtRjUkNWWhPA8CHJCbI7 92jnGbTz1TRb6ZPpKsRQ1hjy6DHaKbZYQnGkfBQyl1 JWrfWU5FoIOcuIKhIFWwQAAJSqHzY2xjo8CkRjUpFPQJTRbrIU3Vd0JgdVTiTDl+Nw2YXC9lr6FtTZfu WJDeGP6bbq0MKEdDGyAmN7BsiSevDVQaw9jfDGGbNF8pkVAlRFI0WWi9i1PbamFoEQJGcTB1jl5gyrwb QaMfDZFpHf1cUh1uOHEcILBmJdZlPQHKST7JXENkRD DbyFNbPVFiCQVOJA1BVOutTEZ3WXBimfLtrONvMQucNZ1PKPLmfbCeCrSuHTPBDWi+Ia5XKC9nv7XxTL oaUdOgIO3ocr0XKPgRGoUfO1O6wLKoW9K8ANpyXe3MPKMdBBKdWhCwSXLLBOjaWD5OXE8kxmW3EL1VtH MqKOSiIVBfkBInRZa3R34jmRQqXOeeJD9LUFQ+Chandrika+ Iy5SUFUqQOPdEJBaRmGsFUPFQhGyF3OgS9FMs7VeN3IyVD68cCgtwyNpPOufNK1ZAB2xIUFkAJIPUH8Y nLGofO6xewIbFEUuZXDYShBnI88ljQIuGFUoJNLrOWAuUx5LAXAxG5MbncAcvWzdgiCgHCGgNAZAKG5G XKywwxLtmRQieVngEP84vWnnIA3JSv9WQkTiSY1ddp 4FvWAfXb7CLRLrMp6EYWCzLVCnKKCnLCR5GEKhSxDkOToeKQTaECEdJOW5SAZyAMBcTT1PNpMrHYTbRA VgSTKbVLOnXZQkvs8JTHYyTJH4IPT9RNLvCTIqQKSxZTbaQOZzBWJbBFR6DRBcTIAhNS7OSwChHONsUZ HqVDzxJEIaDJXdct4MYDVtLQKzYSYfMjOsWVUvJOKg JDxbTTUbCRM8MQD5ZXRmHWIbAB7TYxMlYIGoMKsfOHwkCJUzCYJvnz7RCSUwMIUwHxH0GbQsDMZtILSt PEmrUFTbAPIlAajxONZlYIMrZQ7WNvKvIUHzNRDyYADgCABvTRWcmi2CHYFlKGTuTmEdPTZqBESrHIWq WWieYJLxDECpBVA3ZOIlMRPnOG2ZOiNlEPZfAoT8Hv PrGWTnGWLzaj8ADFFoPFGnFAm0LeCnDYEpRJUzNXgkQHCbWSK0SDA7KOVqCYLfRL8PDrBdHMAzElM5Ee KsVOEkWIQqit8RSFClENYdPHb5SjIgQODhTWXtGHdhQAXePBO1ZVVzTJDxNNOtBE1BNaZzAGRsOwdrPp saSBVyWXRwqj2JRRTpOPSkWlOvAoQeKEHrIZZeAQqt VHFuDIN9ZdfaADMnHUQvJW1HZjAxVBSkTow2ByVxUBSwUFWjfi8RKKWjXPQqCCY9YJHhPZXgHYUzKSik ADNyVAIgXHgrXJScIBJkZF4KXyYsCAFlXHA4IWBpZTMcSGSgeh0BUABmVYS9LKVyTMZyQTAgJEGnDFat HXGtTSBzNYp3EDVvCLHfDW1YNbTuKJEaKBCkZbYgLB VdXDFlbv1TOQPgASY9KRn9QWVgMANfADZmGPutUVEtQZHlJJRsXRJiHJFcZR2GSsCgOUJtBUPnHoEaQQ IjYVZhrw1IRFVnNPQ7Xyl1GATiQVOrHYSfHScxRFYcPIP0OyB1KRBcSNEbTM5ELsFoWIDkJTBiJQwqVQ CbLDZklf9LCEBfOXL3VUB7VARxSUSqLVBxIAc3waLq jEYrSLq6QS1AK9WtguDuUunEJg8Rl929QOD5IDRrXi6SQ8lqYc3hWCCwYBBKFe4USLj4QxLqZVK6JpRw MYMvISApQNNxKCaeQiI2NBT5ZoX8WPV+IEruBRUqEnZlCiM4JCLkTxH1KFHlVOR5ZvxfZCnnKrnbSk2n XSANCj4+DRowjXWqnCsrOIUUEwX6Mdw8WRmuHQABMy5E ID Date Data Source C [facility] (At [facility]) 11/06/2019 12:00 :00 AM EST eCW1 ([facility]) Name Value Range Interpretation Code Description Data Earnestine rce(s) Supporting Document(s) 12.50 0.00-0.30 [facility]OTE[facility]I [facility] eCW1 ([facility]) Procedure Social History Code Duration Value Status Description Data Source(s ) Smoking 10/11/2020 12:00:00 AM EST Former Cigarette Smok er 2 Packs Daily completed Former Cigarette Smoker 2 Packs Daily [facility] Smoking 09/27/2020 12:00:00 AM EDT Former Smoker completed Former Smoker eCW1 ([facility]) Smoking 09/27/2020 12:00:00 AM EDT Former Smoker completed Former Smoker eCW1 ([facility]) Alcohol intake 08/07/2020 12:00:00 AM EDT Lifetime non-drinker (finding) completed Lifetime non-drinker (finding) [facility] Tobacco use and exposure 08/07/2020 12:00:00 AM EDT Never used co mpleted Never used [facility] Cigarette pack-years 08/07/2020 12:00:00 AM EDT UNK completed [facility] Cigarettes smoked current (pack per day) - Reported 08/07/20 12:00:00 AM EDT UNK completed [facility] Smoking 08/07/2020 12:00:00 AM EDT Former smoker completed Former smoker [facility] Smoking 06/18/2020 12:00:00 AM EDT Former Smoker completed Former Smoker eCW1 ([facility]) Smoking 06/18/2020 12:00:00 AM EDT Former Smoker completed Former Smoker eCW1 ([facility]) Smoking 06/18/2020 12:00:00 AM EDT Former Smoker completed Former Smoker eCW1 ([facility]) Smoking 06/18/2020 12:00:00 AM EDT Former Smoker completed Former Smoker eCW1 ([facility]) Smoking 06/18/2020 12:00:00 AM EDT Former Smoker completed Former Smoker eCW1 ([facility]) Smoking 06/18/2020 12:00:00 AM EDT Former Smoker completed Former Smoker eCW1 ([facility]) Smoking 06/18/2020 12:00:00 AM EDT Former Smoker completed Former Smoker eCW1 ([facility]) Smoking 06/18/2020 12:00:00 AM EDT Former Smoker completed Former Smoker eCW1 ([facility]) Alcohol intake 05/31/2020 12:00:00 AM EDT Lifetime non-drinker (finding) completed Lifetime non-drinker (finding) [facility] Cigarette pack-years 05/31/2020 12:00:00 AM EDT UNK completed [facility] Cigarettes smoked current (pack per day) - Reported 05/31/20 12:00:00 AM EDT UNK completed [facility] Smoking 05/31/2020 12:00:00 AM EDT Former smoker completed Former smoker [facility] Smoking 04/25/2020 12:00:00 AM EDT Former Smoker completed Former Smoker eCW1 ([facility]) Smoking 04/25/2020 12:00:00 AM EDT Former Smoker completed Former Smoker eCW1 ([facility]) Smoking 04/25/2020 12:00:00 AM EDT Former Smoker completed Former Smoker eCW1 ([facility]) Smoking 04/25/2020 12:00:00 AM EDT Former Smoker completed Former Smoker eCW1 ([facility]) Alcohol intake 03/13/2020 12:00:00 AM EDT Lifetime non-drinker (finding) completed Lifetime non-drinker (finding) [facility] Cigarette pack-years 03/13/2020 12:00:00 AM EDT UNK completed [facility] Cigarettes smoked current (pack per day) - Reported 03/13/20 12:00:00 AM EDT UNK completed [facility] Smoking 03/13/2020 12:00:00 AM EDT Former smoker completed Former smoker [facility] Alcohol intake 02/05/2020 12:00:00 AM EDT Lifetime non-drinker (finding) completed Lifetime non-drinker (finding) [facility] Cigarette pack-years 02/05/2020 12:00:00 AM EDT UNK [facility] Cigarettes smoked current (pack per day) - Reported 02/05/20 12:00:00 AM EDT UNK completed [facility] Smoking 02/05/2020 12:00:00 AM EDT Former smoker completed Former smoker [facility] Vital Signs ID Date Data Source UNK Name Value Range Interpretation Code Description Data Source(s) Heart rate 98 /min 98 /min [facility] ([facility] [place] Diastolic blood pressure 83 mm[Hg] 83 mm[Hg] [facility] ([facility] [place] Systolic blood pressure 120 mm[Hg] 120 mm[Hg] M EDENT ([facility] [place]) Body mass index (BMI) [Ratio] 42.0 kg/m2 42.0 k g/m2 [facility] ([facility] [place] Body weight 102.514 kg 102.514 kg [facility] ([facility] [place] Body weight 226.00 [lb_av] 226.00 [lb_av] MEDEN T ([facility] [place]) Body height 61.5 [in_i] 61.5 [in_i] [facility] ([facility] [place] 5'1.50" Diastolic blood pressure 62 mm[Hg] 62 mm[Hg] eCW1 ([facility]) Systolic blood pressure 112 mm[Hg] 112 mm[Hg] e CW1 ([facility]) Body temperature 97.9 [degF] 97.9 [degF] eCW1 ( [facility]) Respiratory rate 18 /min 18 /min eCW[facility] ([facility] Heart rate 121 /min 121 /min eCW1 ([facility]) Body mass index (BMI) [Ratio] 42.19 kg/m2 42.19 kg/m2 eCW1 ([facility]) Body height [in_i] eCW1 ([facility]) Body weight 227 [lb_av] 227 [lb_av] eCW1 ([facility]) Diastolic blood pressure 64 mm[Hg] 64 mm[Hg] eCW1 ([facility]) Systolic blood pressure 122 mm[Hg] 122 mm[Hg] e CW1 ([facility]) Body temperature 96.9 [degF] 96.9 [degF] eCW1 ( [facility]) Respiratory rate 18 /min 18 /min eCW1 ([facility] Heart rate 127 /min 127 /min eCW1 ([facility]) Body mass index (BMI) [Ratio] 42.01 kg/m2 42.01 kg/m2 eCW1 ([facility]) Body height [in_i] eCW1 ([facility]) Body weight 226 [lb_av] 226 [lb_av] eCW1 ([facility]) Diastolic blood pressure 60 mm[Hg] 60 mm[Hg] eCW1 ([facility]) Systolic blood pressure 92 mm[Hg] 92 mm[Hg] e CW1 ([facility]) Body temperature 97.9 [degF] 97.9 [degF] eCW1 ( [facility]) Respiratory rate 18 /min 18 /min eCW1 ([facility] Heart rate 106 /min 106 /min eCW1 ([facility]) Body mass index (BMI) [Ratio] 41.26 kg/m2 41.26 kg/m2 eCW1 ([facility]) Body height [in_i] eCW1 ([facility]) Body weight 222 [lb_av] 222 [lb_av] eCW1 ([facility]) Diastolic blood pressure 74 mm[Hg] 74 mm[Hg] eCW1 ([facility]) Systolic blood pressure 120 mm[Hg] 120 mm[Hg] e CW1 ([facility]) Body temperature 95.6 [degF] 95.6 [degF] eCW1 ( [facility]) Respiratory rate 20 /min 20 /min eCW1 ([facility] Heart rate 116 /min 116 /min eCW1 ([facility]) Body mass index (BMI) [Ratio] 40.48 kg/m2 40.48 kg/m2 W1 ([facility]) Body height [in_us] eCW1 ([facility]) Body weight Measured 217.8 [lb_av] 217.8 [lb_av ] [facility]1 [facility] [facility]) Diastolic blood pressure 78 mm[Hg] 78 mm[Hg] eCW1 ([facility]) Systolic blood pressure 116 mm[Hg] 116 mm[Hg] e CW1 ([facility]) Body temperature 97.7 [degF] 97.7 [degF] eCW1 ( [facility]) Respiratory rate 20 /min 20 /min eCW1 [facility] Heart rate 103 /min 103 /min eCW1 ([facility]) Body mass index (BMI) [Ratio] 42.56 kg/m2 42.56 kg/m2 eCW1 ([facility]) Body height [in_us] eCW1 ([facility]) Body weight Measured 229 [lb_av] 229 [lb_av] eC W1 ([facility]) Diastolic blood pressure 68 mm[Hg] 68 mm[Hg] eCW1 ([facility]) Systolic blood pressure 118 mm[Hg] 118 mm[Hg] e CW1 ([facility]) Body temperature 97.8 [degF] 97.8 [degF] eCW1 ( [facility]) Respiratory rate 20 /min 20 /min eCW1 ([facility]) Heart rate 98 /min 98 /min eCW1 ([facility]) Body mass index (BMI) [Ratio] 42.56 kg/m2 42.56 kg/m2 eCW1 ([facility]) Body height [in_us] eCW1 ([facility]) Body weight Measured 229 [lb_av] 229 [lb_av] eC W1 ([facility]) Diastolic blood pressure 72 mm[Hg] 72 mm[Hg] eCW1 ([facility]) Systolic blood pressure 122 mm[Hg] 122 mm[Hg] e CW1 ([facility]) Body temperature 98.4 [degF] 98.4 [degF] eCW1 ( [facility]) Respiratory rate 20 /min 20 /min eCW1 ([facility]) Heart rate 107 /min 107 /min eCW1 ([facility]) Body mass index (BMI) [Ratio] 40.89 kg/m2 40.89 kg/m2 eCW1 ([facility]) Body height [in_us] eCW1 ([facility]) Body weight Measured 220 [lb_av] 220 [lb_av] eC W1 ([facility]) Diastolic blood pressure 60 mm[Hg] 60 mm[Hg] eCW1 ([facility]) Systolic blood pressure 108 mm[Hg] 108 mm[Hg] e CW1 ([facility]) Body temperature 97.8 [degF] 97.8 [degF] eCW1 ( [facility]) Respiratory rate 20 /min 20 /min eCW1 ([facility]) Heart rate 107 /min 107 /min eCW1 ([facility]) Body mass index (BMI) [Ratio] 40.89 kg/m2 40.89 kg/m2 eCW1 ([facility]) Body height [in_us] eCW1 ([facility]) Body weight Measured 220 [lb_av] 220 [lb_av] eC W1 ([facility]) ID Date Data Source [id number] 11/06/2020 06:09:03 PM EST [facility] Name Value Range Interpretation Code Description Data Source(s) WEIGHT RECORDED 231.8 lb 231.8 lb [facility] ID Date Data Source [id number] 08/23/2020 03:45:18 PM EDT [facility] Name Value Range Interpretation Code Description Data Source(s) WEIGHT RECORDED 227.8 lb 227.8 lb [facility] ID Date Data Source [id number] 05/31/2020 12:13:09 PM EDT [facility] Name Value Range Interpretation Code Description Data Source(s) WEIGHT RECORDED 220 lb 220 lb [facility] ID Date Data Source [id number] 03/13/2020 02:41:40 PM EDT [facility] Name Value Range Interpretation Code Description Data Source(s) WEIGHT RECORDED 218 lb 218 lb [facility] ID Date Data Source [id number] 02/05/2020 02:24:11 PM EDT [facility] Name Value Range Interpretation Code Description Data Source(s) WEIGHT RECORDED 234.4 lb 234.4 lb [facility] Body height Measured 61.42 in 61.42 in [facility] Patient Treatment Plan of Care Planned Activity Planned Date Details Description Data Source (s) pantoprazole 40 MG Delayed Release Oral Tablet 09/27/2020 12:00:00 AM EDT eCW1 ([facility]) pantoprazole 40 MG Delayed Release Oral Tablet 09/27/2020 12:00:00 AM EDT eCW1 ([facility]) pregabalin 300 MG Oral Capsule [Lyrica] 09/09/2020 12:00:00 AM EDT eCW1 ([facility]) pregabalin 300 MG Oral Capsule [Lyrica] 09/09/2020 12:00:00 AM EDT eCW1 ([facility]) Morphine Sulfate 2 MG/ML Oral Solution 06/18/2020 12:00:00 AM EDT eCW1 ([facility]) Morphine Sulfate 2 MG/ML Oral Solution 06/18/2020 12:00:00 AM EDT eCW1 ([facility]) Morphine Sulfate 2 MG/ML Oral Solution 06/18/2020 12:00:00 AM EDT eCW1 ([facility]) Morphine Sulfate 2 MG/ML Oral Solution 06/18/2020 12:00:00 AM EDT eCW1 ([facility]) Morphine Sulfate 2 MG/ML Oral Solution 06/18/2020 12:00:00 AM EDT eCW1 ([facility]) Morphine Sulfate 2 MG/ML Oral Solution 06/18/2020 12:00:00 AM EDT eCW1 ([facility]) Morphine Sulfate 2 MG/ML Oral Solution 06/18/2020 12:00:00 AM EDT eCW1 ([facility]) Morphine Sulfate 2 MG/ML Oral Solution 06/18/2020 12:00:00 AM EDT eCW1 ([facility]) Morphine Sulfate 2 MG/ML Oral Solution 05/22/2020 12:00:00 AM EDT eCW1 ([facility]) Morphine Sulfate 2 MG/ML Oral Solution 05/22/2020 12:00:00 AM EDT eCW1 ([facility]) Morphine Sulfate 2 MG/ML Oral Solution 05/22/2020 12:00:00 AM EDT eCW1 ([facility]) Morphine Sulfate 2 MG/ML Oral Solution 05/22/2020 12:00:00 AM EDT eCW1 ([facility]) Morphine Sulfate 2 MG/ML Oral Solution 03/06/2020 12:00:00 AM EDT eCW1 ([facility]) Morphine Sulfate 2 MG/ML Oral Solution 12/29/2019 12:00:00 AM EST eCW1 ([facility]) Morphine Sulfate 2 MG/ML Oral Solution 12/28/2019 12:00:00 AM EST eCW1 ([facility]) Docusate Sodium 50 MG / sennosides, ASSISTED 8.6 MG Oral Ta blet [[id number]-S] 12/13/2019 12:00:00 AM EST eCW1 ([facility])
[2020-12-18] MEDS ORDERED: NALOXONE 2MG/2ML SYRINGE (J2310 PER 1MG) IV STA ×2 (17:38→17:56)
--- NOTE | 2020-12-18 17:41 | REPVR ---
PROCEDURE INFORMATION: Exam: CT Head Without Contrast Exam date and time: 12/18/2020 5:19 PM Age: 55 years old Clinical indication: Pain; Headache; Additional info: Altered mental status TECHNIQUE: Imaging protocol: Computed tomography of the head without contrast. Radiation optimization: All CT scans at this facility use at least one of these dose optimization techniques: automated exposure control; mA and/or kV adjustment per patient size (includes targeted exams where dose is matched to clinical indication); or iterative reconstruction. COMPARISON: CT Head without contrast 06/17/2019 12:17 AM FINDINGS: Brain: Mild nonspecific hypodensities of the periventricular and deep subcortical white matter, most likely secondary to chronic small vessel ischemic change. No intracranial hemorrhage or extra-axial fluid collection. No evidence of mass effect or midline shift. Chirinos-white matter differentiation is normal. Cerebral ventricles: No ventriculomegaly. Bones/joints: No acute osseus lesion or fracture. Paranasal sinuses: Visualized sinuses are unremarkable. No fluid levels. Mastoid air cells: Unremarkable. Soft tissues: Unremarkable. IMPRESSION: 1. No acute intracranial pathology. 2. Chronic findings, as above. Electronically signed by: Luis M Brown On 12/18/2020 17:41:06 PM
[2020-12-18 17:45] LABS: AMPHETAMINES LEVEL URINE NEGATIVE (NEGATIVE); BARBITURATES URINE NEGATIVE (NEGATIVE); BENZODIAZEPINES URINE NEGATIVE (NEGATIVE); CANNABINOIDS URINE NEGATIVE (NEGATIVE); COCAINE METABOLITE URINE NEGATIVE (NEGATIVE); METHADONE URINE NEGATIVE (NEGATIVE); OPIATES URINE NEGATIVE (NEGATIVE); PHENCYCLIDINE URINE NEGATIVE (NEGATIVE)
[2020-12-18] MEDS ORDERED: NS 1,000 ML IV SCH (17:50)
[2020-12-18 17:57] LABS: ACETAMINOPHEN LEVEL < 2.0 UG/ML (10.0-30.0); ALBUMIN 3.4 GM/DL (3.2-5.2); ALT/SGPT 17 U/L (12-78); BILIRUBIN,DIRECT 0.1 MG/DL (0.0-0.2); BILIRUBIN,TOTAL 0.3 MG/DL (0.2-1.0); BLOOD UREA NITROGEN 35 MG/DL (7-18); CALCIUM LEVEL 8.9 MG/DL (8.5-10.1); CARBON DIOXIDE LEVEL 27 MEQ/L (21-32); CHLORIDE LEVEL 112 MEQ/L (98-107); CK-MB VALUE MASS < 1.0 NG/ML (<3.6); CPK CREATINE PHOSPHOKINASE 27 U/L (26-192); CREATININE FOR GFR 2.34 MG/DL (0.55-1.30); ETHYL ALCOHOL (ETHANOL) < 0.003 % (0.000-0.010); GLOMERULAR FILTRATION RATE 23.1 (>51); GLUCOSE, FASTING 98 MG/DL (70-100); PHENYTOIN (DILANTIN) 11.3 UG/ML (10.0-20.0); POTASSIUM SERUM 4.9 MEQ/L (3.5-5.1); SALICYLATE LEVEL < 1.7 MG/DL (5.0-30.0); SODIUM LEVEL 144 MEQ/L (136-145); TROPONIN I < 0.02 NG/ML (< 0.10)
[2020-12-18] MEDS ORDERED: NS 1,000 ML IV ONE (18:30)
--- OUTSIDE RECORDS SUMMARY | 2020-12-18 18:38 | CCD ---
Author Author [facility] Organization [facility] Address Unknown Phone Unavailable Care Team Providers Care Child Care Associate Name Role Phone Mary Herndon MD Unavailable [...] Unavailable Yahir LEON MD Unavailable Unavailable Yahir ELON MD Unavailable Unavailable Yahir LEON MD Unavailable [...] KENA MD Unavailable Unavailable Chopra, A Deloris GUI DEVELOPER Unavailable Unavailable Chopra, A Deloris GUI DEVELOPER Unavailable Unavailable Chopra, A Deloris GUI DEVELOPER Unavailable Unavailable Chopra, A Deloris GUI DEVELOPER Unavailable Unavailable Chopra, A Deloris GUI DEVELOPER Unavailable Unavailable Chopra, A Deloris GUI DEVELOPER Unavailable Unavailable Chopra, A Deloris GUI DEVELOPER Unavailable Unavailable Chopra, A Deloris GUI DEVELOPER Unavailable Unavailable Chopra, A Deloris GUI DEVELOPER Unavailable Unavailable Chopra, A Deloris GUI DEVELOPER Unavailable Unavailable Chopra, A Deloris GUI DEVELOPER Unavailable Unavailable Chopra, A Deloris GUI DEVELOPER Unavailable Unavailable Chopra, A Deloris GUI DEVELOPER Unavailable Unavailable Chopra, A Deloris GUI DEVELOPER Unavailable Unavailable Chopra, A Deloris GUI DEVELOPER Unavailable Unavailable Chopra, A Deloris GUI DEVELOPER Unavailable Unavailable Chopra, A Deloris GUI DEVELOPER Unavailable Unavailable Chopra, A Deloris GUI DEVELOPER Unavailable Unavailable Chopra, A Deloris GUI DEVELOPER Unavailable Unavailable Chopra, A Deloris GUI DEVELOPER Unavailable Unavailable Chopra, A Deloris GUI DEVELOPER Unavailable Unavailable Chopra, A Deloris GUI DEVELOPER Unavailable Unavailable Chopra, A Deloris GUI DEVELOPER Unavailable Unavailable Chopra, A Deloris GUI DEVELOPER Unavailable Unavailable Chopra, A Deloris GUI DEVELOPER Unavailable Unavailable Chopra, A Deloris GUI DEVELOPER Unavailable Unavailable Chopra, A Deloris GUI DEVELOPER Unavailable Unavailable Chopra, A Deloris GUI DEVELOPER Unavailable Unavailable Chopra, A Deloris GUI DEVELOPER Unavailable Unavailable Chopra, A Deloris GUI DEVELOPER Unavailable Unavailable Chopra, A Deloris GUI DEVELOPER Unavailable Unavailable Chopra, A Deloris GUI DEVELOPER Unavailable Unavailable Chopra, A Deloris GUI DEVELOPER Unavailable Unavailable Chopra, A Deloris GUI DEVELOPER Unavailable Unavailable Chopra, A Deloris GUI DEVELOPER Unavailable Unavailable Chopra, A Deloris GUI DEVELOPER Unavailable Unavailable Chopra, A Deloris GUI DEVELOPER Unavailable Unavailable Chopra, A Deloris GUI DEVELOPER Unavailable Unavailable Chopra, A Deloris GUI DEVELOPER Unavailable Unavailable Chopra, A Deloris GUI DEVELOPER Unavailable Unavailable Chopra, A Deloris GUI DEVELOPER Unavailable Unavailable Chopra, A Deloris GUI DEVELOPER Unavailable Unavailable Chopra, A Deloris GUI DEVELOPER Unavailable Unavailable Chopra, A Deloris GUI DEVELOPER Unavailable Unavailable Chopra, A Deloris GUI DEVELOPER Unavailable Unavailable Chopra, A Deloris GUI DEVELOPER Unavailable Unavailable Chopra, A Deloris GUI DEVELOPER Unavailable Unavailable Chopra, A Deloris GUI DEVELOPER Unavailable Unavailable Chopra, A Deloris GUI DEVELOPER Unavailable Unavailable ALIASES , DEFAULT / GENERIC [...] is protected by Article 27-F of the [facility] Public Health law. If you continue you may have access to information: Regarding HIV / AIDS; Provided by facilities licensed or operated by the [facility] Office of Mental Health; or Provided by the [facility] Office for People With Developmental Disabilities. If such information is present, then the following [facility] mandated warning applies: This information has been [...] law may result in a fine or shelter sentence or both. A general authorization for the release of medical or other information is NOT sufficient authorization for further disc losure. Allergies and Adverse Reactions Type Description Substance Reaction Status Data Source(s ) DRUG [facility] Drug allergy Hydrocodone-Acetaminophen acetaminophen / hydrocodone Chest pain Active eCW1 ([facility]) Drug allergy Percocet acetaminophen / oxycodone Projectile vomiting Active eCW1 ([facility]) Acetaminophen Acetaminophen Acetaminophen Nausea Active eCW1 ([facility]) Acetaminophen Acetaminophen Acetaminophen Nausea Active eCW1 ([facility]) Hydrocodone-Acetaminophen Hydrocodone-Acetaminophen Acetamin ophen 21.7 MG/ML / Hydrocodone Bitartrate 0.5 MG/ML Oral Solution Chest pain Active eCW1 ([facility]) Drug Class SULFA ANTIBIOTICS SULFA ANTIBIOTICS [facility] Acetaminophen Acetaminophen Acetaminophen 32 MG/ML Oral Solution Naus ea Active eCW1 ([facility]) Acetaminophen Acetaminophen Acetaminophen 32 MG/ML Oral Solution Naus ea Active eCW1 ([facility]) Acetaminophen Acetaminophen Acetaminophen 32 MG/ML Oral Solution Naus ea Active eCW1 ([facility]) Family History Family Member Name Family Member Gender Family Member Status Date o f Status Description Data Source(s) Unknown Male Problem [facility] ([facility] [place]) Encounters Encounter Providers Location Date Indications Data Source(s ) Outpatient Attender: KENA LEON MD 02/05/2021 12:00:00 AM [facility] Unknown [address] [facility] [place] [address] 11/11/2020 12:00:00 AM EST eCW1 ([facility]) Outpatient Attender: DEFAULT / GENE ALIX / UNKNOWN PROVIDER ALIASES Attender: PARISH ARRIAGA 11/06/2020 12:00:00 AM EST Stem cells transplant status [facility] Stem cells transplant status Outpatient Attender: Deloris Barillas/ ASwapnilMLily Urolog y 10/11/2020 02:30:00 PM EST [facility] Office Visit, Est Pt., Level 4 PC [address] [place] [address] 09/27/2020 12:00:00 AM EDT eCW1 ([facility]) Unknown [address] [facility] [place] [address] 09/13/2020 12:00:00 AM EDT eCW1 ([facility]) Unknown [address] [facility] [place] [address] 09/11/2020 12:00:00 AM EDT eCW1 ([facility]) Unknown [address] [facility] [place] [address] 09/02/2020 12:00:00 AM EDT eCW1 ([facility]) [place] [address] [facility] [address] 08/20/2020 12:00:00 AM EDT eCW1 ([facility]) [place] [address] [facility] [address] 08/20/2020 12:00:00 AM EDT eCW1 ([facility]) [place] [address] [facility] [address] 08/20/2020 12:00:00 AM EDT eCW1 ([facility]) Outpatient Attender: KENA LEON MD [id number] 020 12:00:00 AM EDT - 08/07/2020 03:09:34 PM EDT Stem cells transplant status [facility] Stem cells transplant status [facility] [place] [address] [facility] [address] 07/23/2020 12:00:00 AM EDT eCW1 ([facility]) [place] [address] [facility] [address] 06/18/2020 12:00:00 AM EDT eCW1 ([facility]) [place] [address] [facility] [address] 06/18/2020 12:00:00 AM EDT eCW1 ([facility]) [place] [address] [facility] [address] 06/09/2020 12:00:00 AM EDT eCW1 ([facility]) [place] [address] [facility] [address] 06/09/2020 12:00:00 AM EDT eCW1 ([facility]) [place] [address] [facility] [address] 05/21/2020 12:00:00 AM EDT eCW1 ([facility]) [place] [address] [facility] [address] 05/19/2020 12:00:00 AM EDT eCW1 ([facility]) Outpatient Attender: KENA Rahman-ONCCACTR 020 12:00:00 AM EDT - 05/08/2020 04:13:48 PM EDT Stem cells transplant status [facility] Stem cells transplant status Outpatient Attender: KENA LEON MD 05/02/2020 12:00:00 AM [facility] [address] [facility] [address] 04/25/2020 12:00:00 AM EDT eCW1 ([facility]) Outpatient [address] [place] [address] [place] [address] 04/25/2020 12:00:00 AM EDT eCW1 ([facility]) [facility] [address] [place] [address], [place] [address] 04/16/2020 12:00:00 AM EDT eCW1 ([facility]) Outpatient Attender: KENA LEON MD 04/10/2020 12:00:00 AM [facility] Outpatient Attender: Deloris Barillas/ Sean Urolog y 04/09/2020 01:00:00 PM EDT MED[facility] ([facility]) [facility] [address] [place] [address], [place] [address] 03/31/2020 12:00:00 AM EDT eCW1 ([facility]) Outpatient Attender: KENA LEON MD 03/14/2020 12:00:00 AM [facility] Outpatient Attender: KENA Rahman-ONCCACTR 020 12:00:00 AM EDT - 03/13/2020 10:32:44 AM EDT Encounter for examination of potential d onor of organ and tissue [facility] Encounter for examination of potential d onor of organ and tissue [facility] [address] [place] [address], [place] [address] 03/06/2020 12:00:00 AM EDT eCW1 ([facility]) [facility] [address] [place] [address] [place] [address] 03/05/2020 12:00:00 AM EDT eCW1 ([facility]) [facility] [address] [place] [address], [place] [address] 03/05/2020 12:00:00 AM EDT [facility]CW1 [facility]) [facility] [address] [place] [address], [place] [address] 03/05/2020 12:00:00 AM EDT eCW1 ([facility]) Outpatient Referrer: Bhavik Herndon MD 02/26/2020 02:46:00 PM EDT [facility] [address] [place] [address], [place] [address] 02/26/2020 12:00:00 AM EDT [facility]CW1 [facility]) [facility] [address] [place] [address], [place] [address] 02/07/2020 12:00:00 AM EDT eCW1 ([facility] [address] [place] [address], [place] [address] 01/26/2020 12:00:00 AM EST [facility]CW1 [facility] [address] [place] [address], [place] [address] 01/26/2020 12:00:00 AM EST eCW1 ([facility]) [address] [address] 01/25/2020 12:00:00 AM EST [facility]CW1 [facility]) Outpatient Attender: KENA LEON MD [id number] 020 12:00:00 AM EST - 01/24/2020 04:01:47 PM [facility] [address] [place] [address], [place] [address] 01/23/2020 12:00:00 AM EST eCW1 ([facility]) [facility] [address] [place] [address], [place] [address] 01/22/2020 12:00:00 AM EST eCW1 ([facility]) [facility] [address] [place] [address], [place] [address] 01/21/2020 12:00:00 AM EST eCW1 ([facility]) [facility] [address] [facility] [address] 01/14/2020 12:00:00 AM EST eCW1 ([facility]) [facility] [place] [address] [facility] [address] 01/12/2020 12:00:00 AM EST eCW1 ([facility]) [facility] [address] [facility] [address] 12/29/2019 12:00:00 AM EST eCW1 ([facility]) [facility] [address] [facility] [address] 12/28/2019 12:00:00 AM EST eCW1 ([facility]) [facility] [address] [facility] [address] 12/27/2019 12:00:00 AM EST eCW1 ([facility]) [facility] [place] [address] [facility] [address] 12/27/2019 12:00:00 AM EST eCW1 ([facility]) [facility] [address] [facility] [address] 12/22/2019 12:00:00 AM EST eCW1 ([facility]) [facility] [address] [facility] [address] 12/22/2019 12:00:00 AM EST eCW1 ([facility]) [facility] [address] [facility] [address] 12/18/2019 12:00:00 AM EST eCW1 ([facility]) [facility] [address] [facility] [address] 12/13/2019 12:00:00 AM EST eCW1 ([facility]) [facility] [address] [facility] [address] 11/14/2019 12:00:00 AM EST eCW1 ([facility]) [facility] [place] [address] [facility] [address] 11/07/2019 12:00:00 AM EST eCW1 ([facility]) [facility] [address] [facility] [address] 11/07/2019 12:00:00 AM EST eCW1 ([facility]) [facility] [address] [facility] [address] 11/06/2019 12:00:00 AM EST eCW1 ([facility]) [facility] [address] [facility] [address] 10/22/2019 12:00:00 AM EST eCW1 ([facility]) Immunizations Vaccine Date Status Description Data Source(s) DTaP-Hep B-IPV 08/07/2020 12:00:00 AM EDT completed DTaP / Hep B / IPV 08/07/2020 [facility] Hib (PRP-T) 08/07/2020 12:00:00 AM EDT completed HiB (PRP-T) 08/07/[address] [place] [address] Pneumococcal conjugate PCV 13 08/07/2020 12:00:00 AM EDT complet ed Pneumococcal Conjugate PCV13 08/07/2020 [facility] Medications Medication Brand Name Start Date Product Form Dose Route Admi nistrative Instructions Pharmacy Instructions Status Indications Reaction Description Data Source(s) pantoprazole 40 MG Delayed Release Oral Tablet Pantopr azole Sodium 40 MG Pantoprazole Sodium 40 MG 09/27/2020 12:00:00 AM EDT 1.0 {tablet} active Pantoprazole Sodium 40 MG eCW1 ( [facility]) pantoprazole 40 MG Delayed Release Oral Tablet Pantopr azole Sodium 40 MG Pantoprazole Sodium 40 MG 09/27/2020 12:00:00 AM EDT 1.0 {tablet} active Pantoprazole Sodium 40 MG eCW1 ( [facility]) pregabalin 300 MG Oral Capsule [Lyrica] Lyrica 300 MG Lyrica 300 MG 09/09/2020 12:00:00 AM EDT 1.0 {capsule} active L yrica 300 MG eCW1 ([facility]) pregabalin 300 MG Oral Capsule [Lyrica] Lyrica 300 MG Lyrica 300 MG 09/09/2020 12:00:00 AM EDT 1.0 {capsule} active L yrica 300 MG eCW1 ([facility]) pregabalin 300 MG Oral Capsule [Lyrica] Lyrica 300 MG Lyrica 300 MG 09/09/2020 12:00:00 AM EDT 1.0 {capsule} active L yrica 300 MG eCW1 ([facility]) pregabalin 300 MG Oral Capsule [Lyrica] Lyrica 300 MG Lyrica 300 MG 09/09/2020 12:00:00 AM EDT 1.0 {capsule} active L yrica 300 MG eCW1 ([facility]) 0.5 ML acellular pertussis vaccine, inac tivated [...] Wed08/07/20 at 1416, For 1 dose
Refrigerate
[facility] Medication administered onsite 0.5 [place] [address], capsular polysaccharide inactivated tetanus toxoid conjugate vaccine [...] anterolateral aspect of the thigh or deltoid.
[facility] Medication administered onsite 0.5 ML Streptococcus pneumoniae serotype 1 capsular antigen diphtheria [id number] protein conjugate vaccine 0.0044 MG/ML / Streptococcus pneumoniae serotype 14 capsular antigen diphtheria [id number] protein conjugate vaccine 0.0044 MG/ML / Streptococcus pneumonia pneumococcal 13-valent conjugate vaccine (PREVNAR) injection 0.5 mL pneumococcal 13-valent conjugate vaccine (PREVNAR) injection 0.5 mL 08/07/2020 02:16:15 PM EDT 0.5 mL Intramuscular comp leted 0.5 mL, Intramuscular, Give Now, Starting Wed08/07/20 at 1416, For 1 dose [facility] Medication administered onsite Morphine Sulfate 2 MG/ML Oral Solution Morphine Sulfat e 10 MG/5ML Morphine Sulfate 10 MG/5ML 06/18/2020 12:00:00 AM EDT active Morphine Sulfate 10 MG/5ML eCW1 ([facility]) Morphine Sulfate 2 MG/ML Oral Solution Morphine Sulfat e 10 MG/5ML Morphine Sulfate 10 MG/5ML 06/18/2020 12:00:00 AM EDT active Morphine Sulfate 10 MG/5ML eCW1 ([facility]) Morphine Sulfate 2 MG/ML Oral Solution Morphine Sulfat e 10 MG/5ML Morphine Sulfate 10 MG/5ML 06/18/2020 12:00:00 AM EDT suspended Morphine Sulfate 10 MG/5ML eCW1 ([facility]) Morphine Sulfate 2 MG/ML Oral Solution Morphine Sulfat e 10 MG/5ML Morphine Sulfate 10 MG/5ML 06/18/2020 12:00:00 AM EDT suspended Morphine Sulfate 10 MG/5ML eCW1 ([facility]) Morphine Sulfate 2 MG/ML Oral Solution Morphine Sulfat e 10 MG/5ML Morphine Sulfate 10 MG/5ML 06/18/2020 12:00:00 AM EDT active Morphine Sulfate 10 MG/5ML eCW1 ([facility]) Morphine Sulfate 2 MG/ML Oral Solution Morphine Sulfat e 10 MG/5ML Morphine Sulfate 10 MG/5ML 06/18/2020 12:00:00 AM EDT active Morphine Sulfate 10 MG/5ML eCW1 ([facility]) Morphine Sulfate 2 MG/ML Oral Solution Morphine Sulfat e 10 MG/5ML Morphine Sulfate 10 MG/5ML 06/18/2020 12:00:00 AM EDT active Morphine Sulfate 10 MG/5ML eCW1 ([facility]) Morphine Sulfate 2 MG/ML Oral Solution Morphine Sulfat e 10 MG/5ML Morphine Sulfate 10 MG/5ML 06/18/2020 12:00:00 AM EDT active Morphine Sulfate 10 MG/5ML eCW1 ([facility]) Morphine Sulfate 2 MG/ML Oral Solution Morphine Sulfat e 10 MG/5ML Morphine Sulfate 10 MG/5ML 06/18/2020 12:00:00 AM EDT active Morphine Sulfate 10 MG/5ML eCW1 ([facility]) Morphine Sulfate 2 MG/ML Oral Solution Morphine Sulfat e 10 MG/5ML Morphine Sulfate 10 MG/5ML 06/18/2020 12:00:00 AM EDT active Morphine Sulfate 10 MG/5ML eCW1 ([facility]) Morphine Sulfate 2 MG/ML Oral Solution Morphine Sulfat e 10 MG/5ML Morphine Sulfate 10 MG/5ML 05/22/2020 12:00:00 AM EDT active Morphine Sulfate 10 MG/5ML eCW1 ([facility]) Morphine Sulfate 2 MG/ML Oral Solution Morphine Sulfat e 10 MG/5ML Morphine Sulfate 10 MG/5ML 05/22/2020 12:00:00 AM EDT active Morphine Sulfate 10 MG/5ML eCW1 ([facility]) Morphine Sulfate 2 MG/ML Oral Solution Morphine Sulfat e 10 MG/5ML Morphine Sulfate 10 MG/5ML 05/22/2020 12:00:00 AM EDT active Morphine Sulfate 10 MG/5ML eCW1 ([facility]) Morphine Sulfate 2 MG/ML Oral Solution Morphine Sulfat e 10 MG/5ML Morphine Sulfate 10 MG/5ML 05/22/2020 12:00:00 AM EDT active Morphine Sulfate 10 MG/5ML eCW1 ([facility]) Morphine Sulfate 2 MG/ML Oral Solution Morphine Sulfat e 10 MG/5ML Morphine Sulfate 10 MG/5ML 03/06/2020 12:00:00 AM EDT active Morphine Sulfate 10 MG/5ML eCW1 ([facility]) Morphine Sulfate 2 MG/ML Oral Solution Morphine Sulfat e 10 MG/5ML Morphine Sulfate 10 MG/5ML 03/06/2020 12:00:00 AM EDT activ e 2.5 -5 ml eCW1 ([facility]) Morphine Sulfate 2 MG/ML Oral Solution Morphine Sulfat e 10 MG/5ML Morphine Sulfate 10 MG/5ML 12/29/2019 12:00:00 AM EST activ e 2.5 mL eCW1 ([facility]) Morphine Sulfate 2 MG/ML Oral Solution Morphine Sulfat e 10 MG/5ML Morphine Sulfate 10 MG/5ML 12/29/2019 12:00:00 AM EST activ e 2.5 mL eCW1 ([facility]) Morphine Sulfate 2 MG/ML Oral Solution Morphine Sulfat e 10 MG/5ML Morphine Sulfate 10 MG/5ML 12/28/2019 12:00:00 AM EST activ e 2.5 mL eCW1 ([facility]) Morphine Sulfate 2 MG/ML Oral Solution Morphine Sulfat e 10 MG/5ML Morphine Sulfate 10 MG/5ML 12/28/2019 12:00:00 AM EST activ e 2.5 mL eCW1 ([facility]) Albuterol 0.833 MG/ML / Ipratropium Brom leonardo 0.167 MG/ML Inhalant Solution Ipratropium-Albuterol 0.5-2.5 (3) MG/3ML Ipratropium-Albuterol 0.5-2.5 (3) MG/3ML 12/22/2019 12:00:00 AM EST active 3 ml as needed eCW1 ([facility]) Trazodone Hydrochloride 50 MG Oral Tablet TraZODone HC l 50 MG TraZODone HCl 50 MG 12/22/2019 12:00:00 AM EST active 1 tablet at bedtime eCW1 ([facility]) Albuterol 0.833 MG/ML / Ipratropium Brom leonardo 0.167 MG/ML Inhalant Solution Ipratropium-Albuterol 0.5-2.5 (3) MG/3ML Ipratropium-Albuterol 0.5-2.5 (3) MG/3ML 12/22/2019 12:00:00 AM EST active 3 ml as needed eCW1 ([facility]) Albuterol 0.83 MG/ML Inhalant Solution Albuterol Sulfa te (2.5 MG/3ML) 0.083% Albuterol Sulfate (2.5 MG/3ML) 0.083% 12/22/2019 12:00:00 AM EST 3.0 {ml_as_needed} suspended Albuterol Sulfa te (2.5 MG/3ML) 0.083% eCW1 ([facility]) Albuterol 0.833 MG/ML / Ipratropium Brom leonardo 0.167 MG/ML Inhalant Solution Ipratropium-Albuterol 0.5-2.5 (3) MG/3ML Ipratropium-Albuterol 0.5-2.5 (3) MG/3ML 12/22/2019 12:00:00 AM EST 3.0 {ml_as_needed} suspended Ipratropium-Albuterol 0.5-2.5 (3) MG/3ML eCW1 ([facility]) Trazodone Hydrochloride 50 MG Oral Tablet TraZODone HC l 50 MG TraZODone HCl 50 MG 12/22/2019 12:00:00 AM EST active 1 tablet at bedtime eCW1 ([facility]) Levofloxacin 750 MG Oral Tablet [Levaquin] Levaquin 750 MG L evaquin 750 MG 12/22/2019 12:00:00 AM EST active 1 tablet eCW1 ([facility]) Trazodone Hydrochloride 150 MG Oral Tablet TraZODone H Cl 150 MG TraZODone HCl 150 MG 12/22/2019 12:00:00 AM EST active TraZODone HCl 150 MG eCW1 ([facility]) Albuterol 0.83 MG/ML Inhalant Solution Albuterol Sulfa te (2.5 MG/3ML) 0.083% Albuterol Sulfate (2.5 MG/3ML) 0.083% 12/22/2019 12:00:00 AM EST 3.0 {ml_as_needed} suspended Albuterol Sulfa te (2.5 MG/3ML) 0.083% eCW1 ([facility]) Albuterol 0.83 MG/ML Inhalant Solution Albuterol Sulfa te (2.5 MG/3ML) 0.083% Albuterol Sulfate (2.5 MG/3ML) 0.083% 12/22/2019 12:00:00 AM EST active 3 ml as needed eCW1 ([facility]) Albuterol 0.83 MG/ML Inhalant Solution Albuterol Sulfa te (2.5 MG/3ML) 0.083% Albuterol Sulfate (2.5 MG/3ML) 0.083% 12/22/2019 12:00:00 AM EST active 3 ml as needed eCW1 ([facility]) Trazodone Hydrochloride 50 MG Oral Tablet TraZODone HC l 50 MG TraZODone HCl 50 MG 12/22/2019 12:00:00 AM EST active 1 tablet at bedtime eCW1 ([facility]) Albuterol 0.833 MG/ML / Ipratropium Brom leonardo 0.167 MG/ML Inhalant Solution Ipratropium-Albuterol 0.5-2.5 (3) MG/3ML Ipratropium-Albuterol 0.5-2.5 (3) MG/3ML 12/22/2019 12:00:00 AM EST 3.0 {ml_as_needed} suspended Ipratropium-Albuterol 0.5-2.5 (3) MG/3ML eCW1 ([facility]) Albuterol 0.833 MG/ML / Ipratropium Brom leonardo 0.167 MG/ML Inhalant Solution Ipratropium-Albuterol 0.5-2.5 (3) MG/3ML Ipratropium-Albuterol 0.5-2.5 (3) MG/3ML 12/22/2019 12:00:00 AM EST 3.0 {ml_as_needed} suspended Ipratropium-Albuterol 0.5-2.5 (3) MG/3ML eCW1 ([facility]) Albuterol 0.83 MG/ML Inhalant Solution Albuterol Sulfa te (2.5 MG/3ML) 0.083% Albuterol Sulfate (2.5 MG/3ML) 0.083% 12/22/2019 12:00:00 AM EST 3.0 {ml_as_needed} suspended Albuterol Sulfa te (2.5 MG/3ML) 0.083% eCW1 ([facility]) Albuterol 0.833 MG/ML / Ipratropium Brom leonardo 0.167 MG/ML Inhalant Solution Ipratropium-Albuterol 0.5-2.5 (3) MG/3ML Ipratropium-Albuterol 0.5-2.5 (3) MG/3ML 12/22/2019 12:00:00 AM EST active 3 ml as needed eCW1 ([facility]) Albuterol 0.83 MG/ML Inhalant Solution Albuterol Sulfa te (2.5 MG/3ML) 0.083% Albuterol Sulfate (2.5 MG/3ML) 0.083% 12/22/2019 12:00:00 AM EST 3.0 {ml_as_needed} suspended Albuterol Sulfa te (2.5 MG/3ML) 0.083% eCW ([facility]) Levofloxacin 750 MG Oral Tablet [Levaquin] Levaquin 750 MG L evaquin 750 MG 12/22/2019 12:00:00 AM EST active 1 tablet eCW1 ([facility]) Albuterol 0.83 MG/ML Inhalant Solution Albuterol Sulfa te (2.5 MG/3ML) 0.083% Albuterol Sulfate (2.5 MG/3ML) 0.083% 12/22/2019 12:00:00 AM EST 3.0 {ml_as_needed} suspended Albuterol Sulfa te (2.5 MG/3ML) 0.083% eCW ([facility]) Albuterol 0.833 MG/ML / Ipratropium Brom leonardo 0.167 MG/ML Inhalant Solution Ipratropium-Albuterol 0.5-2.5 (3) MG/3ML Ipratropium-Albuterol 0.5-2.5 (3) MG/3ML 12/22/2019 12:00:00 AM EST active 3 ml as needed eCW1 ([facility]) Albuterol 0.83 MG/ML Inhalant Solution Albuterol Sulfa te (2.5 MG/3ML) 0.083% Albuterol Sulfate (2.5 MG/3ML) 0.083% 12/22/2019 12:00:00 AM EST active 3 ml as needed eCW1 ([facility]) Trazodone Hydrochloride 50 MG Oral Tablet TraZODone HC l 50 MG TraZODone HCl 50 MG 12/22/2019 12:00:00 AM EST active 1 tablet at bedtime eCW1 ([facility]) Albuterol 0.833 MG/ML / Ipratropium Brom leonardo 0.167 MG/ML Inhalant Solution Ipratropium-Albuterol 0.5-2.5 (3) MG/3ML Ipratropium-Albuterol 0.5-2.5 (3) MG/3ML 12/22/2019 12:00:00 AM EST 3.0 {ml_as_needed} suspended Ipratropium-Albuterol 0.5-2.5 (3) MG/3ML eCW1 ([facility]) Trazodone Hydrochloride 150 MG Oral Tablet TraZODone H Cl 150 MG TraZODone HCl 150 MG 12/22/2019 12:00:00 AM EST active TraZODone HCl 150 MG eCW1 ([facility]) Trazodone Hydrochloride 150 MG Oral Tablet TraZODone H Cl 150 MG TraZODone HCl 150 MG 12/22/2019 12:00:00 AM EST active TraZODone HCl 150 MG eCW1 ([facility]) Albuterol 0.833 MG/ML / Ipratropium Brom leonardo 0.167 MG/ML Inhalant Solution Ipratropium-Albuterol 0.5-2.5 (3) MG/3ML Ipratropium-Albuterol 0.5-2.5 (3) MG/3ML 12/22/2019 12:00:00 AM EST 3.0 {ml_as_needed} suspended Ipratropium-Albuterol 0.5-2.5 (3) MG/3ML eCW1 ([facility]) Trazodone Hydrochloride 150 MG Oral Tablet TraZODone H Cl 150 MG TraZODone HCl 150 MG 12/22/2019 12:00:00 AM EST active TraZODone HCl 150 MG eCW1 ([facility]) Trazodone Hydrochloride 150 MG Oral Tablet TraZODone H Cl 150 MG TraZODone HCl 150 MG 12/22/2019 12:00:00 AM EST active TraZODone HCl 150 MG eCW1 ([facility]) Albuterol 0.83 MG/ML Inhalant Solution Albuterol Sulfa te (2.5 MG/3ML) 0.083% Albuterol Sulfate (2.5 MG/3ML) 0.083% 12/22/2019 12:00:00 AM EST active 3 ml as needed eCW1 ([facility]) Docusate Sodium 50 MG / sennosides, [facility] 8.6 MG Oral Tablet [SENOKOT-S] Senokot S 8.6-50 MG Senokot S 8.6-50 MG 12/13/2019 12:00:00 AM EST 1 .0 {tablet_in_the_evening_as_needed} active Senokot S 8.6-50 MG eCW1 ([facility]) Docusate Sodium 50 MG / sennosides, [facility] 8.6 MG Oral Tablet [SENOKOT-S] Senokot S 8.6-50 MG Senokot S 8.6-50 MG 12/13/2019 12:00:00 AM EST 1 .0 {tablet_in_the_evening_as_needed} active Senokot S 8.6-50 MG eCW1 ([facility]) Docusate Sodium 50 MG / sennosides, [facility] 8.6 MG Oral Tablet [SENOKOT-S] Senokot S 8.6-50 MG Senokot S 8.6-50 MG 12/13/2019 12:00:00 AM EST 1 .0 {tablet_in_the_evening_as_needed} active Senokot S 8.6-50 MG eCW1 ([facility]) Docusate Sodium 50 MG / sennosides, [facility] 8.6 MG Oral Tablet [SENOKOT-S] Senokot S 8.6-50 MG Senokot S 8.6-50 MG 12/13/2019 12:00:00 AM EST 1 .0 {tablet_in_the_evening_as_needed} active Senokot S 8.6-50 MG eCW1 ([facility]) Docusate Sodium 50 MG / sennosides, [facility] 8.6 MG Oral Tablet [SENOKOT-S] Senokot S 8.6-50 MG Senokot S 8.6-50 MG 12/13/2019 12:00:00 AM EST 1 .0 {tablet_in_the_evening_as_needed} active Senokot S 8.6-50 MG eCW1 ([facility]) Docusate Sodium 50 MG / sennosides, [facility] 8.6 MG Oral Tablet [SENOKOT-S] Senokot S 8.6-50 MG Senokot S 8.6-50 MG 12/13/2019 12:00:00 AM EST active 1 tablet in the evening as needed eCW1 ([facility]) Docusate Sodium 50 MG / sennosides, [facility] 8.6 MG Oral Tablet [SENOKOT-S] Senokot S 8.6-50 MG Senokot S 8.6-50 MG 12/13/2019 12:00:00 AM EST 1 .0 {tablet_in_the_evening_as_needed} active Senokot S 8.6-50 MG eCW1 ([facility]) Docusate Sodium 50 MG / sennosides, [facility] 8.6 MG Oral Tablet [SENOKOT-S] Senokot S 8.6-50 MG Senokot S 8.6-50 MG 12/13/2019 12:00:00 AM EST 1 .0 {tablet_in_the_evening_as_needed} active Senokot S 8.6-50 MG eCW1 ([facility]) Docusate Sodium 50 MG / sennosides, [facility] 8.6 MG Oral Tablet [SENOKOT-S] Senokot S 8.6-50 MG Senokot S 8.6-50 MG 12/13/2019 12:00:00 AM EST 1 .0 {tablet_in_the_evening_as_needed} active Senokot S 8.6-50 MG eCW1 ([facility]) Docusate Sodium 50 MG / sennosides, [facility] 8.6 MG Oral Tablet [SENOKOT-S] Senokot S 8.6-50 MG Senokot S 8.6-50 MG 12/13/2019 12:00:00 AM EST 1 .0 {tablet_in_the_evening_as_needed} active Senokot S 8.6-50 MG eCW1 ([facility]) Docusate Sodium 50 MG / sennosides, [facility] 8.6 MG Oral Tablet [SENOKOT-S] Senokot S 8.6-50 MG Senokot S 8.6-50 MG 12/13/2019 12:00:00 AM EST 1 .0 {tablet_in_the_evening_as_needed} active Senokot S 8.6-50 MG eCW1 ([facility]) Docusate Sodium 50 MG / sennosides, [facility] 8.6 MG Oral Tablet [SENOKOT-S] Senokot S 8.6-50 MG Senokot S 8.6-50 MG 12/13/2019 12:00:00 AM EST active 1 tablet in the evening as needed eCW1 ([facility]) Docusate Sodium 50 MG / sennosides, [facility] 8.6 MG Oral Tablet [SENOKOT-S] Senokot S 8.6-50 MG Senokot S 8.6-50 MG 12/13/2019 12:00:00 AM EST 1 .0 {tablet_in_the_evening_as_needed} active Senokot S 8.6-50 MG eCW1 ([facility]) Docusate Sodium 50 MG / sennosides, [facility] 8.6 MG Oral Tablet [SENOKOT-S] Senokot S 8.6-50 MG Senokot S 8.6-50 MG 12/13/2019 12:00:00 AM EST 1 .0 {tablet_in_the_evening_as_needed} active Senokot S 8.6-50 MG eCW1 ([facility]) Docusate Sodium 50 MG / sennosides, [facility] 8.6 MG Oral Tablet [SENOKOT-S] Senokot S 8.6-50 MG Senokot S 8.6-50 MG 12/13/2019 12:00:00 AM EST active 1 tablet in the evening as needed eCW1 ([facility]) Docusate Sodium 50 MG / sennosides, [facility] 8.6 MG Oral Tablet [SENOKOT-S] Senokot S 8.6-50 MG Senokot S 8.6-50 MG 12/13/2019 12:00:00 AM EST 1 .0 {tablet_in_the_evening_as_needed} active Senokot S 8.6-50 MG eCW1 ([facility]) Docusate Sodium 50 MG / sennosides, [facility] 8.6 MG Oral Tablet [SENOKOT-S] Senokot S 8.6-50 MG Senokot S 8.6-50 MG 12/13/2019 12:00:00 AM EST 1 .0 {tablet_in_the_evening_as_needed} active Senokot S 8.6-50 MG eCW1 ([facility]) Docusate Sodium 50 MG / sennosides, [facility] 8.6 MG Oral Tablet [SENOKOT-S] Senokot S 8.6-50 MG Senokot S 8.6-50 MG 12/13/2019 12:00:00 AM EST 1 .0 {tablet_in_the_evening_as_needed} active Senokot S 8.6-50 MG eCW1 ([facility]) Docusate Sodium 50 MG / sennosides, [facility] 8.6 MG Oral Tablet [SENOKOT-S] Senokot S 8.6-50 MG Senokot S 8.6-50 MG 12/13/2019 12:00:00 AM EST active 1 tablet in the evening as needed eCW1 ([facility]) Docusate Sodium 50 MG / sennosides, [facility] 8.6 MG Oral Tablet [SENOKOT-S] Senokot S 8.6-50 MG Senokot S 8.6-50 MG 12/13/2019 12:00:00 AM EST active 1 tablet in the evening as needed eCW1 ([facility]) Insurance Providers Payer name Policy type / Coverage type Policy ID Covered republican ID Covered republican's relationship to daniel Policy Daniel Plan Information EMEDNY [id number] SP [id number] BCBS EMPIRE JOBY DIV [id number] HU2 [id number] MEDICARE [id number] SP [id number] [facility] [id number] HU2 [id number] [facility] [id number] HU2 [id number] [place] MEDICAID MANAGED I [id number] Self [id number] MEDICAID M [id number] Self [id number] MEDICARE A [id number] Self [id number] EMPIRE PLAN UHC U [id number] Spouse [id number] BCBS EMPIRE JOBY DIV [id number] MEDICAID [id number] SP [id number] BCBS EMPIRE JOBY DIV [id number] HU2 [id number] BCBS EMPIRE JOBY DIV [id number] HU2 [id number] MEDICAID M [id number] S [id number] MEDICARE C [id number] S [id number] [facility] O [id number] S [id number] [facility] [id number] SP [id number] BCBS EMPIRE JOBY DIV [id number] HU2 [id number] MEDICARE [id number] SP [id number] VNA MEDICAID MANAGED I [id number] Self [id number] MEDICARE A [id number] Self [id number] A BCBS EMPIRE JOBY DIV [id number] HU2 [id number] BCBS EMPIRE JOBY DIV [id number] MEDICARE [id number] SP [id number] [facility] [id number] HU2 [id number] [facility] [id number] HU2 [id number] [employer] E[employer]IRE JOBY DIV [id number] HU2 [id number] [employer]BS E[employer]IRE JOBY DIV [id number] BCBS EMPIRE JOBY DIV [id number] HU2 [id number] [facility] [id number] [id number] SP [id number] N7 MEDICARE [id number] SP [id number] A MEDICARE [id number] SP [id number] A BCBS EMPIRE JOBY DIV [id number] HU2 [id number] [facility] [id number] HU2 [id number] [facility] [id number] HU2 [id number] [facility] [id number] HU [id number] [facility] [id number] 07 [id number] BCBS EMPIRE JOBY DIV [id number] HU [id number] BCBS EMPIRE JOBY DIV [id number] [facility] PART B C [id number] S [id number] ANSI-Commercial [id number] ANSI-Medicaid [id number] ANSI-Medicare Part B [id number] ANSI-Medicaid [id number] ANSI-Commercial [id number] ANSI-Medicare Part B [id number] ANSI-Commercial se967lth-[id number]-[id number] ANSI-Medicare Part B [id number] ANSI-Medicaid [id number] ANSI-Commercial [id number]-f28a-[id number] [id number]-c26g-[id number] ANSI-Medicaid [id number] ANSI-Medicare Part B [id number] ANSI-Commercial [id number]-470i-4o74-40l5-d16970d70bak 806t40sg-975s-0e62-61d6-[id number] ANSI-Medicare Part B [id number] ANSI-Medicaid [id number] ANSI-Commercial [id number]-[id number]-[id number] ANSI-Medicaid [id number] ANSI-Medicare Part B [id number] ANSI-Medicaid [id number] ANSI-Medicare Part B [id number] ANSI-Commercial [id number]-5j04-495b-z4ck-[id number] 442x02fk-3y85-476m-j9ot-09j2c1j03j55 ANSI-Medicare Part B [id number] ANSI-Commercial [id number]-j591-775z-9ykd-060qe3k5o411 flu58n11-t250-155w-8vpm-932kl9u6o314 ANSI-Medicaid [id number] ANSI-Medicare Part B [id number] ANSI-Commercial [id number]-0524-9703-z479-sn62z3997eu3 885t620l-4703-9449-m346-wu77z6040lk9 ANSI-Medicaid [id number] ANSI-Medicaid [id number] ANSI-Commercial [id number]-q360-927s-ru88-[id number] 14s87z22-g307-565w-fo74-p544l56357s7 ANSI-Medicare Part B [id number] ANSI-Commercial 9035y984-58jl-3c3z-56v7-2s387hqyl8f5 2120s451-22tv-0p5l-16r5-0m615dxct5n3 ANSI-Medicaid [id number] ANSI-Medicare Part B [id number] ANSI-Medicaid [id number] ANSI-Medicare Part B [id number] ANSI-Commercial 117iqz38-72s2-4392-mee5-wyx553l63373 804trh36-71c1-9590-gdt7-jbp903u09789 ANSI-Commercial q3y1rvjy-u6l3-1x1i-209q-jy5877d2uo77 v0v2wspv-c7v8-8k5o-259b-em7202s1ii96 ANSI-Medicare Part B [id number] ANSI-Medicaid [id number] ANSI-Commercial 18838f34-t629-0s53-2490-ewkm122744r5 72216r85-i523-7a31-2029-luhq494711n3 ANSI-Medicaid [id number] ANSI-Medicare Part B [id number] ANSI-Commercial x13348m9-64ah-9113-oh04-5664e2stfosy f49483w4-63or-8898-ec26-8623u5tcgoia BCBS [facility] [id number] HU2 [id number] [facility] [id number] HU2 [id number] ANSI-Medicaid [id number] ANSI-Medicare Part B [id number] ANSI-Medicare Part B [id number] ANSI-Medicaid [id number] ANSI-Commercial ji5lu836-23wu-9876-146d-8248751ia5h9 ry8rj536-53sk-6087-362a-0063697kz3m7 ANSI-Medicaid [id number] ANSI-Commercial 3j4l0189-lr0n-3143-m5s9-3819bb2z2j68 3g0k3048-qi0n-9458-x8n7-2574ch2m8f50 ANSI-Medicare Part B [id number] ANSI-Medicaid [id number] ANSI-Medicare Part B [id number] ANSI-Commercial [id number]-x49l-8q41-723a-[id number] 8sl37137-x80n-0a57-821f-[id number] ANSI-Commercial x2jm1232-32sg-3my4-m469-3pzsh0a30g8f u7yp0465-58cr-3oz8-y580-9trlk0k36q7s ANSI-Medicare Part B [id number] ANSI-Medicaid [id number] ANSI-Commercial 13vcd7m1-q6v5-2383-ts4c-0quea364jg0s 69dej8r8-j8j8-0896-az2i-5tlxz031cu6z ANSI-Medicaid [id number] ANSI-Medicare Part B [id number] ANSI-Medicare Part B [id number] ANSI-Commercial 15s00ii9-1n0t-3019-29e3-g321450b2h8e 20e36to2-7h4s-7165-47q6-x276346t9m9o ANSI-Medicaid [id number] ANSI-Medicare Part B [id number] ANSI-Medicaid [id number] ANSI-Commercial [id number]-[id number] w3854f67-5l9i-[id number] ANSI-Medicaid [id number] ANSI-Commercial 0055a1te-9245-54dc-64f3-01i67ins34l8 9126v3zx-7512-43vi-04c5-74w80gdp12y1 ANSI-Medicare Part B [id number] ANSI-Commercial [id number]-[id number] 5om5x9o7-92i7-6l41-aka8-2g51q3c1208z ANSI-Medicare Part B [id number] ANSI-Commercial 5r3v5el7-044p-623e-r148-7ia56xyx6jl2 2z7p0yr7-122l-803k-e630-6vl85bug1vm1 ANSI-Medicare Part B [id number] ANSI-Commercial cl564i03-27we-12w2-g3r1-nq47838kns02 fm091r44-90jl-05p3-e0f8-sg74506qie70 ANSI-Medicare Part B [id number] [place] Plan [facility] Part B [id number] Family Dependent [id number] Medicare Medicare Primary [id number] Self 3 [id number] ANSI-Medicare Part B [id number] ANSI-Commercial [id number]-57lw-4g77-[id number] ANSI-Medicare Part B [id number] ANSI-Commercial [id number] ANSI-Medicare Part B [id number] ANSI-Commercial [id number] [place] MEDIC[place] PART B C [id number] S [id number] MEDICARE C [id number] S [id number] [place] Medigap Part B [id number] Family Dependent [id number] Medicare - NGS Medicare Primary [id number] Self [id number] [place] P [id number] P [id number] A [id number] Problems, Conditions, and Diagnoses Code Display Name Description Problem Type Effective Dates Data Source(s) Z94.84 [id number] Hx of allogeneic stem cell transplant Pro blem 04/25/2020 12:00:00 AM EDT eCW1 ([facility]) Z94.84 [id number] Hx of allogeneic stem cell transplant Pro blem 04/25/2020 12:00:00 AM EDT eCW1 ([facility]) Z94.84 [id number] Stem cells transplant status Problem 03/05/2020 12:00:00 AM EDT eCW1 ([facility]) M54.5 [id number] Low back pain at multiple sites Problem 12/28/2019 12:00:00 AM EST eCW1 ([facility]) M54.5 [id number] Low back pain at multiple sites Problem 12/28/2019 12:00:00 AM EST eCW1 ([facility]) Z94.84 Stem cells transplant status Stem cells transplant sta tus Diagnosis 11/06/2020 03:22:17 PM [facility] Z00.5 Encounter for examination of potential d onor of organ and tissue Encounter for examination of potential donor of organ and tissue Diagnosis 03/13/2020 09:19:58 AM T [facility] Surgeries/Procedures Procedure Description Date Indications Data Source(s) US RETROPERITONEAL REAL TIME W/IMAGE LIMITED 0 12:00:00 AM EST [facility] ([facility]) US RETROPERITONEAL REAL TIME W/IMAGE LIMITED 0 12:00:00 AM EST [facility] ([facility]) BLOOD COUNT COMPLETE AUTOMATED CBC AND DIFFERENTIAL STAT 08/07/2020 1:15 PM EDT H/O autologous stem cell transplant 08/07/2020 01:15:00 PM E DT H/O autologous stem cell transplant [facility] H/O autologous stem cell transplant COMPREHENSIVE METABOLIC PANEL COMPREHENSIVE METABOLIC PANEL STA T 08/07/2020 1:15 PM EDT H/O autologous stem cell transplant 08/07/2020 01:15:00 PM E DT H/O autologous stem cell transplant [facility] H/O autologous stem cell transplant LAB RESULTS (OUTSIDE/HISTORICAL) LAB RESULTS (OUTSIDE/HISTORICA L) 04/09/2020 11:51 AM EDT 04/09/2020 03:51:00 PM EDT [facility] BLOOD COUNT COMPLETE AUTO&AUTO DIFRNTL WBC COUNT CBC AND DIFFER ENTIAL STAT 03/13/2020 9:40 AM EDT H/O autologous stem cell transplant 03/13/2020 01:40:00 PM E DT H/O autologous stem cell transplant [facility] H/O autologous stem cell transplant COMPREHENSIVE METABOLIC PANEL COMPREHENSIVE METABOLIC PANEL STA T 03/13/2020 9:40 AM EDT H/O autologous stem cell transplant 03/13/2020 01:40:00 PM E DT H/O autologous stem cell transplant [facility] H/O autologous stem cell transplant Office Visit, Est Pt., Level 4 PC 03/05/2020 12:00:00 AM EDT eCW1 ([facility]) Office Visit, Est Pt., Level 2 FC 03/05/2020 12:00:00 AM EDT eCW1 ([facility]) Results ID Date Data Source [id number] 11/06/2020 06:08:54 PM EST [facility] Hospital Name Value Range Interpretation Code Description Data Earnestine rce(s) Supporting Document(s) Leukocytes [#/volume] in Blood by Automated count 6.4 10*3/uL 4-10 [facility] Erythrocytes [#/volume] in Blood by Automated count 3.91 10*6/uL 4.1- 5.3 L [facility] Hemoglobin [Mass/volume] in Blood 10.9 g/dL 11.5-15.5 L [facility] Hematocrit [Volume Fraction] of Blood by Automated count 32.2 % 3 6-45 L [facility] Erythrocyte mean corpuscular volume [Entitic volume] by Auto mated count 82.4 fL 80-96 [facility] Erythrocyte mean corpuscular hemoglobin [Entitic mass] by Automated count 27.9 pg 27-33 [facility] Erythrocyte mean corpuscular hemoglobin concentration [Mass/volume] by Automated count 33.8 g/dL 32.0-[facility] distribution width [Ratio] by Automated count 17.4 % 11.5-14.5 H [facility] Platelets [#/volume] in Blood by Automated count 246 10*3/uL 150-400 [facility] Differential cell count method - Blood [facility] Neutrophils/100 leukocytes in Blood by Automated count 75 % [facility] Lymphocytes/100 leukocytes in Blood by Automated count 10 % [facility] Monocytes/100 leukocytes in Blood by Automated count 10 % [facility] Eosinophils/100 leukocytes in Blood by Automated count 4 % [facility] Basophils/100 leukocytes in Blood by Automated count 1 % [facility] Neutrophils [#/volume] in Blood by Automated count 4.83 10*3/uL 1.8-7 .0 [facility] Lymphocytes [#/volume] in Blood by Automated count 0.64 10*3/uL 1.2-4 .0 L [facility] Monocytes [#/volume] in Blood by Automated count 0.65 10*3/uL 0-0.8 [facility] Eosinophils [#/volume] in Blood by Automated count 0.24 10*3/uL 0-0.5 [facility] Basophils [#/volume] in Blood by Automated count 0.04 10*3/uL 0-0.2 [facility] Nucleated erythrocytes/100 leukocytes [Ratio] in Blood by Automated count 0 /100{WBCs} 0-0 [facility] ID Date Data Source [id number] 10/11/2020 03:35:00 PM EST [facility] ([facility]) Name Value Range Interpretation Code Description Data Earnestine rce(s) Supporting Document(s) Creatinine [Mass/volume] in Serum or Plasma 1.85 mg/dL 0.57-1.11 [facility] ([facility]) Glucose [Mass/volume] in Serum or Plasma 125.0 mg/dL 70.0-99.0 [facility] ([facility]) Carbon dioxide, total [Moles/volume] in Serum or Plasma 21.0 mmol/L 22.0-31.0 [facility] ([facility]) BUN/Creat Ratio 20.5 [facility] ([facility] Urea nitrogen [Mass/volume] in Serum or Plasma 38.0 mg/dL 7.0-24.0 [facility] ([facility]) Calcium [Mass/volume] in Serum or Plasma 8.8 mg/dL 8.4-10.2 [facility] ([facility]) K 4.3 mmol/L 3.6-5.2 [facility] ([facility]) Chloride [Moles/volume] in Serum or Plasma 107.0 mmol/L 98.0-108.0 [facility] ([facility]) Anion gap in Serum or Plasma 18.3 [facility] ([facility]) Sodium [Moles/volume] in Serum or Plasma 142.0 mmol/L 136.0-145.0 [facility] ([facility]) eGFR - Descent 33.6 [place] [facility] ([facility]) eGFR -- Non- Descent 27.7 [facility] ([facility]) ID Date Data Source LIPID PANEL (CARDIAC RISK) 10/01/2020 02:17:26 AM EST eCW1 ( [facility]) Name Value Range Interpretation Code Description Data Earnestine rce(s) Supporting Document(s) Cholesterol [Moles/volume] in Serum or Plasma 160 CHOLESTEROL LEVEL eCW1 ([facility]) Triglyceride [Mass/volume] in Serum or Plasma by calculation 405 TRIGLYCERIDES LEVEL eCW1 ([facility]) Cholesterol in HDL [Moles/volume] in Serum or Plasma 39 HDL CHOLESTEROL eCW1 ([facility]) 4.102 CHOLESTEROL RISK RATIO eCW1 ([facility]) 121 NON-HDL-C eCW1 ([facility]) ID Date Data Source FREE T4 & TSH PANEL 10/01/2020 02:17:26 AM EST eCW1 ([facility]) Name Value Range Interpretation Code Description Data Earnestine rce(s) Supporting Document(s) 0.87 FREE T4 eCW1 ([facility]) 3.490 THYROID STIMULATING HORMONE eC W1 ([facility]) ID Date Data Source Comprehensive Metabolic Profile (CMP) 10/01/2020 02:17:26 AM EST eCW1 ([facility]) Name Value Range Interpretation Code Description Data Earnestine rce(s) Supporting Document(s) 91 GLUCOSE, FASTING eCW1 ([facility]) 28.6 GLOMERULAR FILTRATION RATE eCW 1 ([facility]) 39 BLOOD UREA NITROGEN eCW1 ([facility]) 1.95 CREATININE FOR GFR eCW1 ([facility]) 107 CHLORIDE LEVEL eCW1 ([facility]) 23 CARBON DIOXIDE LEVEL eCW1 ([facility]) 139 SODIUM LEVEL eCW1 ([facility]) 4.7 POTASSIUM SERUM eCW1 ([facility]) 474 ALKALINE PHOSPHATASE eCW1 ([facility]) 26 AST/SGOT eCW1 ([facility]) 22 ALT/SGPT eCW1 ([facility]) 9.0 CALCIUM LEVEL eCW1 ([facility]) 1.0 ALBUMIN/GLOBULIN RATIO eCW1 ([facility]) 0.3 BILIRUBIN,TOTAL eCW1 ([facility]) 6.7 TOTAL PROTEIN eCW1 ([facility]) 3.4 ALBUMIN eCW1 ([facility]) ID Date Data Source CBC with Differential 10/01/2020 02:17:26 AM EST eCW1 ([facility]) Name Value Range Interpretation Code Description Data Earnestine rce(s) Supporting Document(s) 8.7 WHITE BLOOD COUNT eCW1 ([facility]) 86.0 MEAN CORPUSCULAR VOLUME eCW1 ( [facility]) 36.1 HEMATOCRIT eCW1 ([facility]) 11.1 HEMOGLOBIN eCW1 ([facility]) 4.20 RED BLOOD COUNT eCW1 ([facility]) 26.4 MEAN CORPUSCULAR HEMOGLOBIN eC W1 ([facility]) 30.7 MEAN CORPUSCULAR HGB CONC eCW1 ([facility]) 16.9 RED CELL DISTRIBUTION WIDTH eC W1 ([facility]) 274 PLATELET COUNT, AUTOMATED eCW1 ([facility]) 82.9 NEUTROPHILS % eCW1 ([facility]) 5.5 LYMPH % eCW1 ([facility]) 7.5 MONO % eCW1 ([facility]) 7.2 NEUTROPHILS # eCW1 ([facility]) 3.0 EOS % eCW1 ([facility]) 0.3 BASO % eCW1 ([facility]) 0.7 MONO # eCW1 ([facility]) 0.5 LYMPH # eCW1 ([facility]) 0.0 BASO # eCW1 ([facility]) 0.3 EOS # eCW1 ([facility]) ID Date Data Source [id number] 08/23/2020 03:45:18 PM EDT [facility] Hospital Name Value Range Interpretation Code Description Data Earnestine rce(s) Supporting Document(s) Progress Note [facility] [id number]/SSCiqGIYko1WrWXsoXEp8PBtxJNDbT0FwLHR3sD1gOGU6HKoRBqHvIxSsTSG4 [facility] [file] [id number]= ID Date Data Source [id number] 08/07/2020 01:54:13 PM EDT [facility] Hospital Name Value Range Interpretation Code Description Data Earnestine rce(s) Supporting Document(s) Albumin [Mass/volume] in Serum or Plasma by Bromocresol green (BCG) dye binding method 3.9 g/dL 3.5-5.2 [facility] Bilirubin.total [Mass/volume] in Serum or Plasma 0.2 mg/dL <1.2 [facility] Calcium [Mass/volume] in Serum or Plasma 9.1 mg/dL 8.6-10.0 [facility] Chloride [Moles/volume] in Serum or Plasma 103 mmol/L 98-107 [facility] Creatinine [Mass/volume] in Serum or Plasma 1.98 mg/dL 0.50-0.90 H [facility] Glucose [Mass/volume] in Serum or Plasma 99 mg/dL 70-140 [facility] Alkaline phosphatase [Enzymatic activity/volume] in Serum or Plasma 414 U/L 35-104 H [facility] Potassium [Moles/volume] in Serum or Plasma 4.3 mmol/L 3.4-5.1 [facility] Protein [Mass/volume] in Serum or Plasma 6.9 g/dL 6.4-8.3 [facility] Sodium [Moles/volume] in Serum or Plasma 140 mmol/L 136-145 [facility] Aspartate aminotransferase [Enzymatic activity/volume] in Serum or Plasma 28 U/L <32 [facility] Urea nitrogen [Mass/volume] in Serum or Plasma 28 mg/dL 6-20 H [facility] Osmolality of Serum or Plasma by calculation 295 mosm/kg 275-300 [facility] Creatinine/Urea nitrogen [Mass Ratio] in Serum or Plasma 14 [facility] Bicarbonate [Moles/volume] in Serum 25 mmol/L 22-29 [facility] Alanine aminotransferase [Enzymatic activity/volume] in Seru m or Plasma 25 U/L <33 [facility] Anion gap 3 in Serum or Plasma 12 mmol/L 8-15 [facility] Glomerular filtration rate/1.73 sq M pre dicted among non-blacks [Volume Rate/Area] in Serum or Plasma by Creatinine-based formula (MDRD) 28 mL/min/1.73m2 >60 L [facility] Glomerular filtration rate/1.73 sq M pre dicted among blacks [Volume Rate/Area] in Serum or Plasma by Creatinine-based formula (MDRD) 32 mL/min/1.73m2 >60 L [facility] ID Date Data Source [id number] 08/07/2020 01:59:38 PM EDT [facility] Name Value Range Interpretation Code Description Data Earnestine rce(s) Supporting Document(s) Leukocytes [#/volume] in Blood by Automated count 3.7 10*3/uL 4-10 L [facility] Erythrocytes [#/volume] in Blood by Automated count 3.97 10*6/uL 4.1- 5.3 L [facility] Hemoglobin [Mass/volume] in Blood 11.0 g/dL 11.5-15.5 L [facility] Hematocrit [Volume Fraction] of Blood by Automated count 33.3 % 3 6-45 L [facility] Erythrocyte mean corpuscular volume [Entitic volume] by Auto mated count 83.8 fL 80-96 [facility] Erythrocyte mean corpuscular hemoglobin [Entitic mass] by Automated count 27.6 pg 27-33 [facility] Erythrocyte mean corpuscular hemoglobin concentration [Mass/volume] by Automated count 33.0 g/dL 32.0-36.0 [facility] Erythrocyte distribution width [Ratio] by Automated count 15.9 % 11.5-14.5 H [facility] Platelets [#/volume] in Blood by Automated count 289 10*3/uL 150-400 [facility] Differential cell count method - Blood [facility] Neutrophils/100 leukocytes in Blood by Automated count 58 % [facility] Lymphocytes/100 leukocytes in Blood by Automated count 16 % [facility] Monocytes/100 leukocytes in Blood by Automated count 15 % [facility] Eosinophils/100 leukocytes in Blood by Automated count 9 % [facility] Basophils/100 leukocytes in Blood by Automated count 2 % [facility] Neutrophils [#/volume] in Blood by Automated count 2.15 10*3/uL 1.8-7 .0 [facility] Lymphocytes [#/volume] in Blood by Automated count 0.59 10*3/uL 1.2-4 .0 L [facility] Monocytes [#/volume] in Blood by Automated count 0.56 10*3/uL 0-0.8 [facility] Eosinophils [#/volume] in Blood by Automated count 0.33 10*3/uL 0-0.5 [facility] Basophils [#/volume] in Blood by Automated count 0.07 10*3/uL 0-0.2 [facility] Service comment [facility] Occasional larger platelet present ID Date Data Source [id number] 05/31/2020 12:13:09 PM EDT [facility] Name Value Range Interpretation Code Description Data Earnestine rce(s) Supporting Document(s) Progress Note [facility] [id number]/CTYdmPIAbe5OyNPhiYJr8NGfgUZTvN9PjGJK1vE2pYZV7RKmOXsRtCuZrWrPl lbm [file] [id number]== ID Date Data Source [id number] 05/31/2020 12:13:04 PM EDT [facility] Hospital Name Value Range Interpretation Code Description Data Earnestine rce(s) Supporting Document(s) Progress Note [facility] WYSWBt2qXjBKCmKt60/WHOkkEYFae4IzFAtbTKs8HUutEGEqH4NrYWU3hV0xTMK7NYjKJwAoBhGcOnMe lbm [file] civil rights investigator+uPIqFkJeWlLiY0bgxUzfJki2bt21xw2qnZ7uPrrbIXKehSwZxfb5SgvMElJ7e26Ad0jR8NdXprvM +L5U0QJacZwqrLDcFaXJlP9gKZeGv0ykPgQkU6YoFB 1PNr2V2q4ZjYQB2JuckZTeGgaffoTkfRl0k93Wb0tSZuukaE/VS475kRVcpeoHZUTWeS4swiwWbE7P0h c9d/IodGjNKbnF4BIfyvAGn3sLyro8gVATtj/XnII19jHO05bfxxhBtogvrz64veEOJfnjykKSRcOcWQ loQxrQ0u52OJULDgvbOYt7fKQinLPc6edC1BFDeZ4l PVIH4pJqfgcD3wV41+M8EahEhpMt0sxPHqyTqCXn3cUAf6cof+Zul8199zBMMX+xtemJVcmjl156bauw +bWjSbkYy6nDMIFfSIUMhkLsstgBKmyNjW6sKnw3oQxK7bmF8dDPrv9rVIx1tA910/QSVjv0pJWmApbv CQ7PcrdPFoLT7pd315iqPhpoY4s6dWsqqCFLvpFhc/ 6gOx5Fx8Y6nHpy9OTOSo0kijS/PFU4I+kP30ACE8WBc967CAAcIbu+htsTaKbzgUgTqZGBLuhQ9FKElv QBAwYM+S0n3IRcGpC0IKQTDYNVLJKAIRUJD6h1Z7UPFKZKEHgrYUEFa1RAUJACCQgcVBSGy4QSQKVGSM saOKIOm7RGMNEVMWsxRPDIi6QROLJBCSdtKYFFv1YX [file] ICAgICAgICAgICAgICAgICAgICAgICAgICAgICAgIC OeOICoUQAiEKPzAXGjMUQhHWWjTTKfJD9WBPGqTHHxKSEoOPXrFCQaELGwSFFjBZBgXHWfUFMkKFPbBX AgICAgICAgICAgICAgICAgICAgICAgICAgICAgICAgICAgICAgICAgICAgICAgICAgICAgICAgICAgIC GiOGRwKR6MQZLcXWAuPTPvTZMnWUDeXLDfCLNfYCTs ICAgICAgICAgICAgICAgICAgICAgICAgICAgICAgICAgICAgICAgICAgICAgICAgICAgICAgICAgICAg YJUnYVVxSWEnVXZjBHGtIP2WSZRmDXZqNTHcYJBxSUWlGCJrUYFeLFSjJMFdETOwFLAsMRGdOHFxEKTc ICAgICAgICAgICAgICAgICAgICAgICAgICAgICAgIC OpAYGhDHUjVTZzGQOyFLWtZAUnYPJyULPdCI9ENRGzRITaWXZrVUOfMXWbDUNjEZLjFKImISMxDAUuTY AgICAgICAgICAgICAgICAgICAgICAgICAgICAgICAgICAgICAgICAgICAgICAgICAgICAgICAgICAgIC ZeXIPiBQIbBZ6LXTLoIBUmALUcILMoTDOpGOVjCWFn ICAgICAgICAgICAgICAgICAgICAgICAgICAgICAgICAgICAgICAgICAgICAgICAgICAgICAgICAgICAg STMtNLEmPRWxUSLlRCChPLHwYO6OYGKdRDXpTXGjBGPuGJUwHMCjDTXuITKjQKLrUFFyBAIcYQYcOYNv ICAgICAgICAgICAgICAgICAgICAgICAgICAgICAgIC IqBIJxPUVxZYUmXAJzITOdVXGuDHExUXKoCUHeZO7ADLZrIIZcDNWmNOVvKCFtFEPxVEYwKMUsFFEaFU AgICAgICAgICAgICAgICAgICAgICAgICAgICAgICAgICAgICAgICAgICAgICAgICAgICAgICAgICAgIC YbCBWyIONxTSUzBY1TMEOzYKGxDMSuUWLfWQJdMIRx ICAgICAgICAgICAgICAgICAgICAgICAgICAgICAgICAgICAgICAgICAgICAgICAgICAgICAgICAgICAg RBQwEIVtCLRoYDGmOPVmKNUpSPLaRY9JJWJyTBClTECbYKZqOZAvLBDxJBQdFZIkNBCnKHEpFCJwRIQf ICAgICAgICAgICAgICAgICAgICAgICAgICAgICAgIC VtAOQxVJRxNATfLQOlYGSgRYBpNYWbLPMtYUGxSHPlNO1YQT93qXKtr9L4FAAeFL5ldio/Vw5KKFdkpx JeiYNcFI7OCvQdYN4apg7OIlMyTD0odn5WSKeUZxMgJ2X3qZYsIGWcCRVFUlSbM60bIGlxTl27FBqkRM JmZfKrDKg5Aw7LDeXeV4exHTKmYnF0OKDlZnT6STFi WbB6BPUeFdFpFPLwNYAvOIYrTMSCKKV9VKZiSaOtHiLhWPLtNI9DMEUsM333pjLpPu6ERb1GMvZiPF1e zc2TEcziJUVmMqvYEim3BMmcYK2ZnKCfcDVuQLOwISCLFkOxE0qva7SpCwopTFQVPJdeXQ3Ml7YhzJEh DQo+Yn0SDT0qx3ShSHluUUKkAS3dma7DEWdUSsDuD2 PywQhpKKOrs0duYDKkHF0chKMzFTT0BGewnmMpAL9gIArojVktJmVgPOCcBa6mAC7pIMSrZGIaWxW9YI TIKU9HCKDhEQDftAXeWEDrLPMWTG6GROzjAFI2KULjltTmmHGtHTzwJK5ZUYIfkrBtEcbgRBVAAWp+Pg 2SMM5bv0TiFIg6ZOGrRM7mik5KIVdZTrAeN6P9cZWf D9G4IUnyEj1LCGPhAXOmIiQsHDDPHNfzWQ8FAI3kqxR3NM8RfCDyARAfRCJbxTTvRDe7M54ifNTjYDnw XY1CERQ+Chandrika+Np6KFNIbWPTiVKGbOkMxDZSRUkCfS7DrP4AAr2EhP0EuHA12iStmwmRzNOllCT7KVR5k DEZqUITZMS4GeOTjdA5cumJmWGJmHWGWXbGaQ45svW NhOFNfWMA7VZVnJm7KQXKjK1WdovLvrUlwppLjBHSfOGJKDH8SDMnyyoYflGZxcXtrGO72tSeyZI2THv 1FGwDlFA9pbv7PoNTeHv9YVVK3OW4NRQZuJZYkBOIcCFZ5VGLvLoAmXIksPIGnCJYlYYV3SVBjDOLjAS 2FXtBdCLXoPmL1YwXjRCHnKAGpue6TNZTfMPC0ZxC3 OPTdOEHqLSRvTSxuIELtEIVcWTW8WPRaXAQiXH5VOeKgJVSeNNK5VUOoMBKiDDZumr3EKPIzPCRoAFW5 VhBiARHvEPYqUCesXOFpUJX5DoOoYPJiIAVlAU0RUaCrZUKmPTx5ZugjJSHwPWSvwi7WEYHhJBBeBNu9 ZDSjQTGbXWFnRSnaJDNiWUGfGDDaERXxNZHhNY8XVh MxDKTnMSAaUQLdATVeMWSbcb5VNTIeOUUoQCP3WlHoYASlTGDpRJynTVEiRSM7Jqo5IEJeCDBuGR4ASa DwOQNjNPe3AOPrODPjKVDalr3PEQFxPZQuTNR5WPFwMJQhSODpFSywSMXrEFR0BUO6NSWeMUTpYH8SQq PcVJOeIaP4JoKzVCAzUMSbto8BYWSrOJHmLfT1NRQl TPCaQEBlDDtpHTThMCBbQVZzDTXxKZYlZE6FPwRbCEMbTkBqEysbHEUoMIQitg0PYCSyXBAcJpEpBMBl ZRHyOUHbADksYZCyPLM4JzbzUPRrNLNsRS4HZuAcCWKsNoA1JGIaETXrMKHnji5PSWEaNSJzRNn7FMGf LLIxOYVbQLeqHLEfHNK0FvMrZLPkGCKgTB7WDiRxNJ DaLvY8GmAmLHTkCLMpmz0DMDDnIJQzRruzBQVtGIQrRZRcLMuqWSAfXVT8UBd6DDZsEDNjXE9WMfDuKP BhVdqqIhMeJTGgCMFheo5ROVHaLHJvNEG9ZVAlIRDuFHRoNIwtOTYrKXZ1TzFdJEHkAPFoPN2WVxRoEG QfUtx6JPXxNGGvBYYect2OPZFsWJPkDRg4LXQrXIGw IULkFXptIEZkXVK2VEp9OZYiMDLnCU7DQtGkBBBjRUS1LTQzHNLdCAWkem1OCBJrZQP6QQQ6OXMeRABy WKWhDBrrMSPzUGz4KRAvHBFbZNNqTM1QVdWvJCZiBcS2LVvnPZTjIHIxlo0FYLDlBRQ8IuY0BAMoESEy ZSCaNWgkVVHiOVp2DbR8AHReUOQoKF9EUqVyEOyrHP RMWle1ZLbiQ5z0EFD9RF0LK5Peu5EgTSYoEFRETImhSX8ypaAmXBGeGi7TE1uMQza1EeQvPDTfTFFeGT E4EoXrONrfAWm5YMMaZMK6UAOpOJ3bGRD6YLIjIwLzVVR5UZHsOpG7BWCqKWHyFPVaSRDiRoL2GxJxJM 7ZNm6MGaF2PHZ3nKFgFh6FQQg7NOtfEUzmBQHQGm8G ID Date Data Source [id number] 04/09/2020 01:34:00 PM EDT [facility] ([facility] Name Value Range Interpretation Code Description Data Earnestine rce(s) Supporting Document(s) Protein [Presence] in Urine by Test strip Laboratory test result [facility] ([facility]) Ua Nitrite Laboratory test result [facility] ([facility]) Glucose [Presence] in Urine Laboratory test result [facility] ([facility]) Blood [Presence] in Urine by Visual Laboratory test result [facility] ([facility]) Ua Leuko Laboratory test result [facility] ([facility]) Color of Urine Laboratory test result [facility] ([facility]) Ketones [Presence] in Urine by Test strip Laboratory test result [facility] ([facility]) Clarity of Urine Laboratory test result [facility] ([facility]) pH of Urine by Test strip Laboratory test result 5.0-7.5 [facility] ([facility]) Bilirubin.total [Presence] in Urine by Test strip Laboratory test res ult [facility] ([facility]) Ua Specific [place] Laboratory test result 1.003-1.030 [facility] ([facility]) Urobilinogen [Mass/volume] in Urine by Test strip Laboratory test result 0.0-1.0 [facility]) ID Date Data Source [id number] 04/10/2020 10:11:15 AM EDT Laboratory [facility] [...] 1010 HCT 32.5 % (36.0-47.0) L [facility] - CORE QA FLAGS AND/OR RANGES MODIFIED BY DEMOG RAPHIC UPDATE ON 04/10 AT 1010 MCV 84.8 fL (80.0-95.0) [facility] - CORE MCH 28.2 pg (27.0-32.0) [facility] - CORE MCHC 33.3 g/dL (32.0-36.0) [facility] - CORE RDW 24.2 % (10.5-14.5) H [facility] - CORE PLT 179 10*3/uL (150-450) [facility] - CORE MPV 7.2 fL (7.1-10.7) [facility] [place] [facility] - CORE NEUT % 68.4 % (35.0-75.0) [facility] - CORE LYMPH % 13.9 % (16.0-52.0) L [facility] - CORE MONO % 9.4 % (0.0-8.0) H [facility] - CORE EOS % 7.7 % (0.0-5.0) H [facility] - CORE BASO % 0.6 % (0.0-4.0) [facility] - CORE NEUT # 4.0 10*3/uL (1.8-7.7) [facility] - CORE LYMPH # 0.8 10*3/uL (1.2-4.8) L [facility] - CORE MONO # 0.6 10*3/uL (0.0-0.8) [facility] - CORE Eosinophils [#/volume] in Blood by Automated count 0.5 10*3/uL (0.0-0 .5) [facility] - CORE BASO # 0.0 10*3/uL (0.0-0.2) [facility] ID Date Data Source [id number] 04/10/2020 10:11:15 AM EDT [facility] Name Value Range Interpretation Code Description Data Earnestine rce(s) Supporting Document(s) SODIUM 139 mmol/L (136-145) [facility] - CORE POTASSIUM 4.6 mmol/L (3.6-5.2) [facility] - CORE CHLORIDE 106 mmol/L (100-108) [facility] - CORE CO2 25 mmol/L (22-31) [facility] - CORE ANION GAP 8 mmol/L (7-16) [facility] - CORE UREA NITROGEN 31 mg/dL (7-24) H [facility] CORE CREATININE 1.45 mg/dL (0.60-1.00) H [facility] - CORE QA FLAGS AND/OR RANGES MODIFIED BY DEMOG RAPHIC UPDATE ON 04/10 AT 1010 BUN/CREAT RATIO 21.4 RATIO (10.0-20.0) H [facility] - CORE GLUCOSE 78 mg/dL (70-99) [facility] - CORE CALCIUM 8.5 mg/dL (8.4-10.2) [facility] - CORE TOTAL PROTEIN 6.6 g/dL (6.4-8.2) [facility] - CORE ALBUMIN 3.3 g/dL (3.5-4.6) L [facility] - CORE GLOBULIN 3.3 g/dL (2.7-4.3) [facility] - CORE ALB/GLOB RATIO 1.0 RATIO [facility] CORE ALKALINE PHOSPHATASE 408 U/L (45-117) H [facility] [place] [facility] - CORE BILIRUBIN,TOTAL 0.3 mg/dL (0.0-1.0) [facility] CORE PLEASE NOTE:Total bilirubin results may be falselyelevated in patients taking Eltrombopag. AST (SGOT) 13 U/L (11-39) [facility] - CORE ALT (SGPT) 23 U/L (12-78) [facility] - CORE GFR 51 ml/min/1.73m2 (>59) L [facility] - CORE GFR ( AMER) >60 ml/min/1.73m2 (>59) [facility] - CORE GFR INTERPRETATION [facility] - CORE --NORMAL KIDNEY FUNCTION OR MILD DISEASE - GFR >OR= 60CHRONIC KIDNEY DISEASE - GFR 15 - 59RENAL FAILURE - GFR <15 Est. GFR calculation based on the MDRDstudy equation, which assumes a steadystate for creatinine. Est. GFR should notbe used for medication dosing. ID Date Data Source [id number] 04/09/2020 01:12:00 PM EDT [facility] ([facility]) Name Value Range Interpretation Code Description Data Earnestine rce(s) Supporting Document(s) Protein [Presence] in Urine by Test strip Laboratory test result [facility] ([facility]) Glucose [Presence] in Urine Laboratory test result [facility] ([facility]) Ua Nitrite Laboratory test result [facility] ([facility]) Ua Leuko Laboratory test result [facility] ([facility]) Color of Urine Laboratory test result [facility] ([facility]) Blood [Presence] in Urine by Visual Laboratory test result [facility] ([facility]) Ua Specific [place] Laboratory test result 1.003-1.030 [facility] ([facility]) Ketones [Presence] in Urine by Test strip Laboratory test result [facility] ([facility]) Clarity of Urine Laboratory test result [facility] ([facility]) Bilirubin.total [Presence] in Urine by Test strip Laboratory test res ult [facility] ([facility]) pH of Urine by Test strip Laboratory test result 5.0-7.5 [facility] ([facility]) Urobilinogen [Mass/volume] in Urine by Test strip Laboratory test result 0.0-1.0 [facility]) ID Date Data Source [id number] 03/13/2020 02:41:40 PM EDT [facility] Name Value Range Interpretation Code Description Data Earnestine rce(s) Supporting Document(s) Progress Note [facility] CXKFIw8jRuWJXtEo19/QUDubBYSoi1CpGVqjJYf2PMhnQLXdH4ScJCI3oX8uNRS0VIlJFtPqFsOtLGC9 lbm [file] GrKSExNKJfRWJ4AOAsNfW+RW3qIWm+Sy2Vl3KnhwY7gdLmHNzwIEZlOd4UPNRAC8GKIa== ID Date Data Source [id number] 03/13/2020 10:25:40 AM EDT [facility] Name Value Range Interpretation Code Description Data Earnestine rce(s) Supporting Document(s) Progress Note [facility] MGYXXw1dWpFXYwHj10/BZFxlFZOpn8SkAPuvQNm4YUdrEOMnA9ZyQAN3eK3vUGQ4KSfQUgHxMuWsISB9 lbm [file] AgICAgICAgICAgICAgICAgICAgICAgICAgICAgICAgICAgICAgICAgICAgICAgICAgICAgICAgICAgIC AgICAgICAgICAgICAgICANCiAgICAgICAgICAgICAg ICAgICAgICAgICAgICAgICAgICAgICAgICAgICAgICAgICAgICAgICAgICAgICAgICAgICAgICAgICAg ICAgICAgICAgICAgICAgICAgICAgICAgICANCiAgICAgICAgICAgICAgICAgICAgICAgICAgICAgICAg ICAgICAgICAgICAgICAgICAgICAgICAgICAgICAgIC AgICAgICAgICAgICAgICAgICAgICAgICAgICAgICAgICAgICANCiAgICAgICAgICAgICAgICAgICAgIC AgICAgICAgICAgICAgICAgICAgICAgICAgICAgICAgICAgICAgICAgICAgICAgICAgICAgICAgICAgIC AgICAgICAgICAgICAgICAgICANCiAgICAgICAgICAg ICAgICAgICAgICAgICAgICAgICAgICAgICAgICAgICAgICAgICAgICAgICAgICAgICAgICAgICAgICAg ICAgICAgICAgICAgICAgICAgICAgICAgICAgICANCiAgICAgICAgICAgICAgICAgICAgICAgICAgICAg ICAgICAgICAgICAgICAgICAgICAgICAgICAgICAgIC AgICAgICAgICAgICAgICAgICAgICAgICAgICAgICAgICAgICAgICANCiAgICAgICAgICAgICAgICAgIC AgICAgICAgICAgICAgICAgICAgICAgICAgICAgICAgICAgICAgICAgICAgICAgICAgICAgICAgICAgIC AgICAgICAgICAgICAgICAgICAgICANCiAgICAgICAg ICAgICAgICAgICAgICAgICAgICAgICAgICAgICAgICAgICAgICAgICAgICAgICAgICAgICAgICAgICAg ICAgICAgICAgICAgICAgICAgICAgICAgICAgICAgICANCiAgICAgICAgICAgICAgICAgICAgICAgICAg ICAgICAgICAgICAgICAgICAgICAgICAgICAgICAgIC AgICAgICAgICAgICAgICAgICAgICAgICAgICAgICAgICAgICAgICAgICANCiAgICAgICAgICAgICAgIC AgICAgICAgICAgICAgICAgICAgICAgICAgICAgICAgICAgICAgICAgICAgICAgICAgICAgICAgICAgIC AgICAgICAgICAgICAgICAgICAgICAgICANCjw/eHBh X8kpwIZdvgZ2Q3ueWp8RJl4EEB7os7RtUICgDDakhiGyPdiALvVwDKMjNjzYFkt0OSxrGF7IsKTgA9Pq G6PqCFppXR3HONOaNMJfoYIyISNvCBWlPfJ6YBXqTZvsGM0HgWJwDYfoGRQaPHNaSbEfDFGxICSyXQQe AVIhLWQQFGUzNXFtMmTwGRViWSOqCR9WFFPbI156op SnNm8ANj2PJlQmIV3qua4KEyYsHYDbSgoFYlw5MIcwSQ9DuMAoiMSqGfRhDYMFSoSoK6tmi3JjBcBlUN XGNJrmQY7Ua5LhlUTvIVe+Bw6IQQ0ry4OwSYkkIiHhGA2vtb8PSTaCQdDjK5CjaRybPDIqt7wvPMAuGB 0jxZMiHBL0DQEnvXPnwWLCSEveEVnxGHFnDVSuDT8l BG6jXXQjCMM3XuU3EZBWPB2OXKBeYINypYByBHFwXQLTWS6PWMilJYQ1VUCzksNmlUIkEFsaPJ4FDNGh bnQgMzIgMCBSDQo+Nf6DCQ5vt0XrOMfmZCTcRI4mrv7MYAxOEwBgL1I5fINpT5N0BFbwTq5LKIMmITJq PtTgRZMDQSweWV1JWV9ybcL2IV0MwOIgZCZpCANlfZ OmRCt9S69waIIqCQcnJQ6WSYH+Chandrika+Yn0FAUGzQAEzLMBoYjJsRAKQVvVtU3UmE6WOg8AxD6CuCB46nO sxhrOoSUwxAP4JTY8nQEIsZMLPKI6CwEOalX7rlaNxOnJpHMAONwNoO99maZKxFGQoZFFoSKFjHd0KYG QbN4JbmnXubPszggGhZMXyVIJLBL0GANxyjrAwiJLc bVtgLL49lKrbHM0FLg6ZEzJeIH4ltc5FuAGgFe7GRXCsNZ5YBWLjEHUkMOLxKEP7WKRlEkMhCOfjIPBy HWUdSUI0YZXdCFUkNE3FEyAoNGBiMHX7NWaaWDNbQCBmgu3NXPKpMLV4HgT5GCFtHCOxUSJaMKbeVXBb UTNqRAL3DJPfSGMnRZ9JPgDlNBHqGIO2DeOcCMMvAP Igoc0IJGDsSCXxYMqdXiEzDDUwTSPzWFluKAOzQNU4XuA6TOXgIAKsCU3BHpRyYSYoYGk2FuSsLZGvKA Nmnk8PMAHwHSDbULD4RpUqSIVfQOFuUAttOPHvQEJvDPn7CLFxCLYbIU9RPuIiSYBcXBL6KyLyQHHqOX Ymqj7HSYIwZESlSIQ7XnXiYXOsRQIzHMqfHSBrVMY3 XJX2LWNySLAzAX2HZfGpBSVhBAn6QKItIYNdEMIgsr5HGSOcAYRcPjosVmPiPYOdFQWfOYfgKIWqWUJ9 ZEQ3FWBzGIUfZM6IVlWiZLIfUdG3NPsxYVPrJKCxnq9JGFIlNKWhVAM6OTUzXHPkQWIwQUtmJZHaZQP4 Pnx9JNVeKPPkZM5WSmJdSUTkOiEkZdujIZMyOLXcis 6JSOHyKHKvFhTwGEUuMQEgJWAsVMseIGOjUGM8KeU5FICxXXLpCF8FIkJtFGMkWhhjDOjlYUVbPKZhdv 8IADUjWJEeTYW5XyEaTKWkOLHgKLqpDJTpZHL3DeceSSRjELIgJV1JBiZzKEJgFna9TOPkEFVdUJKxmp 4WTZZeZHHaVXI0VkCsHOBaKIOzUYdaABBvQWRwBBVs XZHkZKMkGI3GGsXxDVReIGHiODxoFQBuEVTmle8KRNWiLVC9ZTT9IsSqYTPpBUDqMSggEALyMGCzOVF0 KDNlONHnQA3OHrLqFNZpMBXpPRPfHWPhAJDyto0DXJAkZGU5KsS4SyCcICVqQLOpCFsoPYZkWDAqPYTw ZEXdUJThNH1JQnTvFZqeWDDSJiy6IBncJ3a3JZRxQY 3PF5Fag4EzReVfXMFSRCteBK6bsjCbBQNsXs2UU6bZPyc9K6UsBEhiFDU9VPH9PWXsZBPsMfgjXWTePe JsPXPpXL5eMNWqMtK6SZI9APd7NhxoATX7LGLrBSShZtVuSII3SNC3FdSiUS8KFw7TGwF1KLF6qWHlDi 7YNLQ7WZgPQcAiJH5UWYm= ID Date Data Source [id number] 03/13/2020 10:14:42 AM EDT [facility] Name Value Range Interpretation Code Description Data Earnestine rce(s) Supporting Document(s) Leukocytes [#/volume] in Blood by Automated count 9.8 10*3/uL 4-10 [facility] Erythrocytes [#/volume] in Blood by Automated count 4.44 10*6/uL 4.1- 5.3 [facility] Hemoglobin [Mass/volume] in Blood 11.5 g/dL 11.5-15.5 [facility] Hematocrit [Volume Fraction] of Blood by Automated count 33.9 % 3 6-45 L [facility] Erythrocyte mean corpuscular volume [Entitic volume] by Auto mated count 76.4 fL 80-96 L [facility] Erythrocyte mean corpuscular hemoglobin [Entitic mass] by Automated count 25.8 pg 27-33 L [facility] Erythrocyte mean corpuscular hemoglobin concentration [Mass/volume] by Automated count 33.8 g/dL 32.0-36.0 [facility] E[facility]th[facility] distribution width [Ratio] by Automated count 20.6 % 11.5-14.5 H [facility] Platelets [#/volume] in Blood by Automated count 278 10*3/uL 150-400 [facility] Differential cell count method - Blood [facility] Neutrophils/100 leukocytes in Blood by Automated count 86 % [facility] Lymphocytes/100 leukocytes in Blood by Automated count 5 % [facility] Monocytes/100 leukocytes in Blood by Automated count 5 % [facility] Eosinophils/100 leukocytes in Blood by Automated count 2 % [facility] Basophils/100 leukocytes in Blood by Automated count 2 % [facility] Neutrophils [#/volume] in Blood by Automated count 8.43 10*3/uL 1.8-7 .0 H [facility] Lymphocytes [#/volume] in Blood by Automated count 0.49 10*3/uL 1.2-4 .0 L [facility] Monocytes [#/volume] in Blood by Automated count 0.49 10*3/uL 0-0.8 [facility] Eosinophils [#/volume] in Blood by Automated count 0.20 10*3/uL 0-0.5 [facility] Basophils [#/volume] in Blood by Automated count 0.20 10*3/uL 0-0.2 [facility] ID Date Data Source [id number] 03/13/2020 10:16:18 AM EDT [facility] Name Value Range Interpretation Code Description Data Earnestine rce(s) Supporting Document(s) Albumin [Mass/volume] in Serum or Plasma by Bromocresol green (BCG) dye binding method 4.2 g/dL 3.5-5.2 [facility] Bilirubin.total [Mass/volume] in Serum or Plasma 0.2 mg/dL <1.2 [facility] Calcium [Mass/volume] in Serum or Plasma 9.4 mg/dL 8.6-10.0 [facility] Chloride [Moles/volume] in Serum or Plasma 100 mmol/L 98-107 [facility] Creatinine [Mass/volume] in Serum or Plasma 1.42 mg/dL 0.50-0.90 H [facility] Glucose [Mass/volume] in Serum or Plasma 135 mg/dL 70-140 [facility] Alkaline phosphatase [Enzymatic activity/volume] in Serum or Plasma 320 U/L 35-104 H [facility] Potassium [Moles/volume] in Serum or Plasma 4.0 mmol/L 3.4-5.1 [facility] Protein [Mass/volume] in Serum or Plasma 7.0 g/dL 6.4-8.3 [facility] Sodium [Moles/volume] in Serum or Plasma 139 mmol/L 136-145 [facility] Aspartate aminotransferase [Enzymatic activity/volume] in Serum or Plasma 12 U/L <32 [facility] Urea nitrogen [Mass/volume] in Serum or Plasma 28 mg/dL 6-20 H [facility] Osmolality of Serum or Plasma by calculation 295 mosm/kg 275-300 [facility] Creatinine/Urea nitrogen [Mass Ratio] in Serum or Plasma 20 [facility] Bicarbonate [Moles/volume] in Serum 24 mmol/L 22-29 [facility] Alanine aminotransferase [Enzymatic activity/volume] in Seru m or Plasma 11 U/L <33 [facility] Anion gap 3 in Serum or Plasma 15 mmol/L 8-15 [facility] Albumin/Globulin [Mass Ratio] in Serum or Plasma 1.5 [facility] Glomerular filtration rate/1.73 sq M pre dicted among non-blacks [Volume Rate/Area] in Serum or Plasma by Creatinine-based formula (MDRD) 42 mL/min/1.73m2 >60 L [facility] Glomerular filtration rate/1.73 sq M pre dicted among blacks [Volume Rate/Area] in Serum or Plasma by Creatinine-based formula (MDRD) 48 mL/min/1.73m2 >60 L [facility] ID Date Data Source [id number] 02/05/2020 02:24:11 PM T [facility] Name Value Range Interpretation Code Description Data Earnestine rce(s) Supporting Document(s) Progress Note [facility] FQOLDv5wFmZCSqAy52/RZTteUHZru5ThZQqlGQu4PQgoAOYqI7BvNOW0wX7fJMZ3SReWDxDpVcBdUkX9 lbm [file] +fde/x0CL8s41H4L46IR2j+HoR1FfUFfvobT03S37ZsQj6q1fEDuL5dvqMc6zIPOT81yVChpJXnHd/José Miguel [file] [id number]= ID Date Data Source [id number] 02/05/2020 02:24:06 PM EDT [facility] Name Value Range Interpretation Code Description Data Earnestine rce(s) Supporting Document(s) Progress Note [facility] NEAZHb2eNkWOTtBg20/FZUxgFQMkv3UjZIvnHJa3QZlaRJSeI6NqWRF7kD9zEFV5JYxPMiImJiCmBpD2 lbm XtTbfKLsOaOXZsGecFUoYmMZecWnlggNFsHR7WsUX4DLKeK77lAIYvPSYxX4UsZJLgVvQ+Fu8MVRBwrO PqLN3BDrfL6O5yh3kGBg2pkJ/EjdKDV6Mepyq5rpBYD2Eq1NIfhTAL51GTtjDOQEqmXfHdh2113I1oVp 06Mh4D85SxqwEP3Qry0gT8y0q16h/mIAocxzHFv/Wf FVKGpxK328/T6qDWgv/b/OebUo7GG5xb4bV1W7/9/RdlS8mVS91XhTwqb/dqjQlW6kvDpYMgo751iE2o /9Kjr1ou8Q1r4BKrxamXoaet5/fv0zE2EiAYDR1cyIl/rIPl5DIgzVa9ie0BQLvLo9LPXr6XhBCnAo+2 L1l5h6K2Fl07vh1cv31IrJW6rsT9O1wbP7ys43g2pk [file] ICAgICAgICAgICAgICAgICAgICAgICAgICAgICAgICAgICAgICAgICAgICAgICAgICAgICAgICAgICAg SXCuGQMfCDEvEKJyUQHgIHHpKOSvBUSkESTxVKUdSXIcFOFqMDHoTQ7FYUWcICVaJAYxSPTvRDFgRCPz ICAgICAgICAgICAgICAgICAgICAgICAgICAgICAgIC EhKVOdYLZrWBIuUGDkHDVwJNFcSIXhLCJaVAJpXZKdZBCnQSZlKZDjNBRiVUDpYYOwKF7TMFHiCAGkVL AgICAgICAgICAgICAgICAgICAgICAgICAgICAgICAgICAgICAgICAgICAgICAgICAgICAgICAgICAgIC AgICAgICAgICAgICAgICAgICAgICAgICAgICAgICAg JN4ICKHbRHLlUPRhHNZwWMHqVIGfCKShXJAeQDEpGRTjAYIqDNSbIESuZQVlNLKdDELmLCCoRUJqLGHg CRVpPALjYCDiGZNaEXZwPEFxIPReLHJrBHRvVYEkKUIpLOJfRPRnZVZbBI2NKOItZTQkBBOsKZKiHJWg ICAgICAgICAgICAgICAgICAgICAgICAgICAgICAgIC CtSPOqIFHbYEJoAOOiAJKmBRIoOBWtVQFrOMZgPGQwLBZpEMQtIFXuRSSrYXBcICNcQWSmYD0CCMWhSY AgICAgICAgICAgICAgICAgICAgICAgICAgICAgICAgICAgICAgICAgICAgICAgICAgICAgICAgICAgIC AgICAgICAgICAgICAgICAgICAgICAgICAgICAgICAg ZUWnYD4IUQKaKCUwIABqYUThFMAzNWZtTPIvEGZoGXAfKOFsZJYdZSIjNMZzKEGtTLLaAOSjSBMrNZMt AKVpPGRpBULnFRWmNCWnFXIuAPMdFYHlUYVtKSIfPALhDBEfBBMsAXXnMHSqTP2IZJFfSPRnVNHeCWEb ICAgICAgICAgICAgICAgICAgICAgICAgICAgICAgIC NsRZNbKPFyHDJnYFYrIEHbCMMhNOTjAZUiRUMzZMVxAKWpQRTsDFRiCLFnTRVkCDEhVTKtGULdZZ1QFN AgICAgICAgICAgICAgICAgICAgICAgICAgICAgICAgICAgICAgICAgICAgICAgICAgICAgICAgICAgIC AgICAgICAgICAgICAgICAgICAgICAgICAgICAgICAg CUBeMXEpVV9RICPlBYJjXFZqNJThWXHxUVKvCOQzZAPjXRVrIRBiPXRmOWOzSTRjVBEqKRLhCUFbQHKy HMYyIGLbMOCmCAIjCJSmNIZhHLArMXQpJCYaHJWkOXBnAVWsBKTlAPHeUJWdJTSsDK8EIT61uWJhs9H3 OSVkCS0jpsx/Ux0ROElnaaYjvERhLM1VJmMnAA9rpa 7WYjGxAG6ztm4JSSdROcDoV5N3iYAsCJQfMTSIVhJyK94eZCuqDr89XOgsAOWsMpMpLXp7Uw2CXhWiA1 lxCOAfVjZ2LIDzFsB0SHIqUoQ3YPUjVlTdWNLkNSTwMOKfJNRTQSK4ZYNwUkAbMiPnDUMfWV3KHKEoG7 86pcJgFu7WKc7XIqBbXN5ojt0CSrXjFPZlKdqQWlj5 UZbvZY6BoRHixHCsRZAqZRUKKtVwI4npa2AyNkFsZRNEVWaoWF2Ju0IdiDIqHHo+An5UHI8us1PjCOjj CFFmCV2iaz8PVUfFBtGyO8DqmPeoMLSbh7lvSRNaAQ1fxJIfANM0TIm8n1JdosVjKZMRnLI2uq4brwfj QoQmMAAvFx3gCs2oDITsSGGmBuAhKNOGOY7WZNWjTO RyhLSlLZHdEYJCJH8TRQmvFMH3BZQdijMjzEUvYXvfRX5XKBQgixMdOcWlDSCWXRx+Ru6CUF0vh1CkVL rzInTfAK8odx4OMLrIVsRwT3Q3sAIrC0O0SEeqRw1KHXPtMXEtEfEhRUXOOVmnKK7KEX7avwH0BO0JjM QsRWGtIWPprDUtCBy3J82hpKOrFIsbTN9MNSX+Chandrika+ Dp9HEWByMYDvTTGcLbXjIOBWUkJhN3GlO2VKp3NvZ8KtTJ57aPmekhDkDLdjTB4XWK2sLEUuLXJXYF5P bXDrpH7lhvMgNUCfILQRPgUpM28ibIXnPTCtMLZbNZDcNz7WSNAtI2TwjzGjgNrezgNhBMVtWOEWLL7I JObybgQkeLFzhAteOH39jBdrIB4GIz3ZAwJoPM5lkt 7GlEXtRt6USUUoFk3ZGKCqOAUbYAFoRCS4TSIeMhNnEMdaHZOpYOZwHWZ2AFXoFNSfOY7LCeNqYBLdNP RyGKKuXGJtZJLade1MWXUnNKV6OQH2RUDoLRAjHPUfDTdcWOCfJTTfORJ5JPBmVNTmHX3BNwBxFCShNT MoOAkqWHEgHVLebn3PQNKdRSAsWQPoPeSdGGSpZZSf QFlkVNXdLLH2XGY3MJZxUSWuDP5IPmReJLXjATdvAOwpUDJeGBIjrb6PFHNkOHEoWdS3HqEtOQAaXNSp CHeyHXPiIZEpLwskAEWpXPBgBA6UMrYsMLFdMIPgCVEmTQPoZTCxoh3YHMWlJQGqKzGyIPJmDDYlGIFu VArwSKVdUBFiQSZ1MMIlKKNjGW5FGlVnIWDnZrY9Vq QzATJcBMDjnv1JAGZnTLEeKKp7CfOoKSIxTCMfFUugRYXjNTP8BGH5QAZeABYnEV0GYhLcTMSnZiH1Vk HdRIUmJHZeeo9QXKDaQEYrNTu0JzFwESLvERFdFWxjXYMzWVB2MPJvCOKcFIIuVC6PRhWhRPRtRfscWe kbOJFjGOFphh3RVSNdWJJxRzOwGdYcFQXpLCCuURth DRZjDSB9LgtfASMmXHRuAC5HUxQeDCKrUkg6UdWnJAZuLIPjmn7JCEWjBQKyKML3GGCoGBHaGZMvCYul DLPmHASqPLyxGRHqEUXhYY3OUbZwKPZcISV8FUWrERBuVOLmkv4NKSDzLAH1JGHhHTDcDFClLJVzDPvq LGRtKLZgDEk7OCObXEIqVF5CDaSlQTDnBJJjTzRzDM CoHGJhns4DLYWeRJP5MKp8XZTjNZEjNXRhYOycEJUzBLObIRFlUWPeOCEfFV4URhDfZHIrWIVgEoSjWM AqBUTmci0MTVMlEZX0Bjo1WSWpSBImQDGsZJavKCOxYVE3FlJ5VDYdJZJdTN1ZUhVdMJPtSXJlWVraWU SiJRDxkw3IYPPdJCS2PUM1RZYwOXBpBQZoBNt7xuDa gDSdJIm5CF2EW8SotaCgSqmNUr6Do706BPD4FWWgPr1YA5xpMp4dMPWjEAGDNz4WYZu2ZfPyUOQ2KhTf BQGfUHTcBXRzIMmtCkT8VVK7OvC8IGF+VJetWDAaObHxGzH6UOUfTyF3LMUaBML4JomuFOxaOaebZk1b XSANCj4+ONptjRUqcWfbQBLJJpD1Zeg8FEfyHKODLa3Z ID Date Data Source C REACTIVE PROTEIN QUANTITATIV (At [facility]) 11/06/2019 12:00 :00 AM EST eCW1 ([facility]) Name Value Range Interpretation Code Description Data Earnestine rce(s) Supporting Document(s) 12.50 0.00-0.30 C REACTIVE PROTEIN QUANTI TATIV eCW1 ([facility]) Procedure Social History Code Duration Value Status Description Data Source(s ) Smoking 10/11/2020 12:00:00 AM EST Former Cigarette Smok er 2 Packs Daily completed Former Cigarette Smoker 2 Packs Daily [facility] ([facility] Smoking 09/27/2020 12:00:00 AM EDT Former Smoker completed Former Smoker eCW1 ([facility]) Smoking 09/27/2020 12:00:00 AM EDT Former Smoker completed Former Smoker eCW1 ([facility]) Alcohol intake 08/07/2020 12:00:00 AM EDT Lifetime non-drinker (finding) completed Lifetime non-drinker (finding) [facility] Tobacco use and exposure 08/07/2020 12:00:00 AM EDT Never used co mpleted Never used [facility] Cigarette pack-years 08/07/2020 12:00:00 AM EDT UNK completed [facility] Cigarettes smoked current (pack per day) - Reported 08/07/20 12:00:00 AM EDT UNK completed [facility] Smoking 08/07/2020 12:00:00 AM EDT Former smoker completed Former smoker [facility] Smoking 06/18/2020 12:00:00 AM EDT Former Smoker completed Former Smoker eCW1 ([facility]) Smoking 06/18/2020 12:00:00 AM EDT Former Smoker completed Former Smoker eCW1 ([facility]) Smoking 06/18/2020 12:00:00 AM EDT Former Smoker completed Former Smoker eCW1 ([facility]) Smoking 06/18/2020 12:00:00 AM EDT Former Smoker completed Former Smoker eCW1 ([facility]) Smoking 06/18/2020 12:00:00 AM EDT Former Smoker completed Former Smoker eCW1 ([facility]) Smoking 06/18/2020 12:00:00 AM EDT Former Smoker completed Former Smoker eCW1 ([facility]) Smoking 06/18/2020 12:00:00 AM EDT Former Smoker completed Former Smoker eCW1 ([facility]) Smoking 06/18/2020 12:00:00 AM EDT Former Smoker completed Former Smoker eCW1 ([facility]) Alcohol intake 05/31/2020 12:00:00 AM EDT Lifetime non-drinker (finding) completed Lifetime non-drinker (finding) [facility] Cigarette pack-years 05/31/2020 12:00:00 AM EDT UNK completed [facility] Cigarettes smoked current (pack per day) - Reported 05/31/20 12:00:00 AM EDT UNK completed [facility] Smoking 05/31/2020 12:00:00 AM EDT Former smoker completed Former smoker [facility] Smoking 04/25/2020 12:00:00 AM EDT Former Smoker completed Former Smoker eCW1 ([facility]) Smoking 04/25/2020 12:00:00 AM EDT Former Smoker completed Former Smoker eCW1 ([facility]) Smoking 04/25/2020 12:00:00 AM EDT Former Smoker completed Former Smoker eCW1 ([facility]) Smoking 04/25/2020 12:00:00 AM EDT Former Smoker completed Former Smoker eCW1 ([facility]) Alcohol intake 03/13/2020 12:00:00 AM EDT Lifetime non-drinker (finding) completed Lifetime non-drinker (finding) [facility] Cigarette pack-years 03/13/2020 12:00:00 AM EDT UNK completed [facility] Cigarettes smoked current (pack per day) - Reported 03/13/20 12:00:00 AM EDT UNK completed [facility] Smoking 03/13/2020 12:00:00 AM EDT Former smoker completed Former smoker [facility] Alcohol intake 02/05/2020 12:00:00 AM EDT Lifetime non-drinker (finding) completed Lifetime non-drinker (finding) [facility] Cigarette pack-years 02/05/2020 12:00:00 AM EDT UNK [facility] Cigarettes smoked current (pack per day) - Reported 02/05/20 12:00:00 AM EDT UNK completed [facility] Smoking 02/05/2020 12:00:00 AM EDT Former smoker completed Former smoker [facility] Vital Signs ID Date Data Source UNK Name Value Range Interpretation Code Description Data Source(s) Heart rate 98 /min 98 /min [facility] ([facility]) Diastolic blood pressure 83 mm[Hg] 83 mm[Hg] [facility] ([facility]) Systolic blood pressure 120 mm[Hg] 120 mm[Hg] M [facility] ([facility]) Body mass index (BMI) [Ratio] 42.0 kg/m2 42.0 k g/m2 [facility] ([facility]) Body weight 102.514 kg 102.514 kg [facility] Body weight 226.00 [lb_av] 226.00 [lb_av] [facility] T ([facility]) Body height 61.5 [in_i] 61.5 [in_i] [facility] 5'1.50" Diastolic blood pressure 62 mm[Hg] 62 mm[Hg] eCW1 ([facility]) Systolic blood pressure 112 mm[Hg] 112 mm[Hg] e CW1 ([facility]) Body temperature 97.9 [degF] 97.9 [degF] eCW1 ( [facility]) Respiratory rate 18 /min 18 /min eCW1 ([facility]) Heart rate 121 /min 121 /min eCW1 ([facility]) Body mass index (BMI) [Ratio] 42.19 kg/m2 42.19 kg/m2 eCW1 ([facility]) Body height [in_i] eCW1 ([facility]) Body weight 227 [lb_av] 227 [lb_av] eCW1 ([facility]) Diastolic blood pressure 64 mm[Hg] 64 mm[Hg] eCW1 ([facility]) Systolic blood pressure 122 mm[Hg] 122 mm[Hg] e CW1 ([facility]) Body temperature 96.9 [degF] 96.9 [degF] eCW1 ( [facility]) Respiratory rate 18 /min 18 /min eCW1 ([facility]) Heart rate 127 /min 127 /min eCW1 ([facility]) Body mass index (BMI) [Ratio] 42.01 kg/m2 42.01 kg/m2 eCW1 ([facility]) Body height [in_i] eCW1 ([facility]) Body weight 226 [lb_av] 226 [lb_av] eCW1 ([facility]) Diastolic blood pressure 60 mm[Hg] 60 mm[Hg] eCW1 ([facility]) Systolic blood pressure 92 mm[Hg] 92 mm[Hg] e CW1 ([facility]) Body temperature 97.9 [degF] 97.9 [degF] eCW1 ( [facility]) Respiratory rate 18 /min 18 /min eCW1 ([facility]) Heart rate 106 /min 106 /min eCW1 ([facility]) Body mass index (BMI) [Ratio] 41.26 kg/m2 41.26 kg/m2 eCW1 ([facility]) Body height [in_i] eCW1 ([facility]) Body weight 222 [lb_av] 222 [lb_av] eCW1 ([facility]) Diastolic blood pressure 74 mm[Hg] 74 mm[Hg] eCW1 ([facility]) Systolic blood pressure 120 mm[Hg] 120 mm[Hg] e CW1 ([facility]) Body temperature 95.6 [degF] 95.6 [degF] eCW1 ( [facility]) Respiratory rate 20 /min 20 /min eCW1 ([facility]) Heart rate 116 /min 116 /min eCW1 ([facility]) Body mass index (BMI) [Ratio] 40.48 kg/m2 40.48 kg/m2 eCW1 ([facility]) Body height [in_us] eCW1 ([facility]) Body weight Measured 217.8 [lb_av] 217.8 [lb_av ] eCW1 ([facility]) Diastolic blood pressure 78 mm[Hg] 78 mm[Hg] eCW1 ([facility]) Systolic blood pressure 116 mm[Hg] 116 mm[Hg] e CW1 ([facility]) Body temperature 97.7 [degF] 97.7 [degF] eCW1 ( [facility]) Respiratory rate 20 /min 20 /min eCW1 ([facility]) Heart rate 103 /min 103 /min eCW1 ([facility]) Body mass index (BMI) [Ratio] 42.56 kg/m2 42.56 kg/m2 eCW1 ([facility]) Body height [in_us] eCW1 ([facility]) Body weight Measured 229 [lb_av] 229 [lb_av] eC W1 ([facility]) Diastolic blood pressure 68 mm[Hg] 68 mm[Hg] eCW1 ([facility]) Systolic blood pressure 118 mm[Hg] 118 mm[Hg] e CW1 ([facility]) Body temperature 97.8 [degF] 97.8 [degF] eCW1 ( [facility]) Respiratory rate 20 /min 20 /min eCW1 ([facility]) Heart rate 98 /min 98 /min eCW1 ([facility]) Body mass index (BMI) [Ratio] 42.56 kg/m2 42.56 kg/m2 eCW1 ([facility]) Body height [in_us] eCW1 ([facility]) Body weight Measured 229 [lb_av] 229 [lb_av] eC W1 ([facility]) Diastolic blood pressure 72 mm[Hg] 72 mm[Hg] eCW1 ([facility]) Systolic blood pressure 122 mm[Hg] 122 mm[Hg] e CW1 ([facility]) Body temperature 98.4 [degF] 98.4 [degF] eCW1 ( [facility]) Respiratory rate 20 /min 20 /min eCW1 ([facility]) Heart rate 107 /min 107 /min eCW1 ([facility]) Body mass index (BMI) [Ratio] 40.89 kg/m2 40.89 kg/m2 eCW1 ([facility]) Body height [in_us] eCW1 ([facility]) Body weight Measured 220 [lb_av] 220 [lb_av] eC W1 ([facility]) Diastolic blood pressure 60 mm[Hg] 60 mm[Hg] eCW1 ([facility]) Systolic blood pressure 108 mm[Hg] 108 mm[Hg] e CW1 ([facility]) Body temperature 97.8 [degF] 97.8 [degF] eCW1 ( [facility]) Respiratory rate 20 /min 20 /min eCW1 ([facility]) Heart rate 107 /min 107 /min eCW1 ([facility]) Body mass index (BMI) [Ratio] 40.89 kg/m2 40.89 kg/m2 eCW1 ([facility]) Body height [in_us] eCW1 ([facility]) Body weight Measured 220 [lb_av] 220 [lb_av] eC W1 ([facility]) ID Date Data Source [id number] 11/06/2020 06:09:03 PM EST [facility] Name Value Range Interpretation Code Description Data Source(s) WEIGHT RECORDED 231.8 lb 231.8 lb [facility] ID Date Data Source [id number] 08/23/2020 03:45:18 PM EDT [facility] Name Value Range Interpretation Code Description Data Source(s) WEIGHT RECORDED 227.8 lb 227.8 lb [facility] ID Date Data Source [id number] 05/31/2020 12:13:09 PM EDT [facility] Name Value Range Interpretation Code Description Data Source(s) WEIGHT RECORDED 220 lb 220 lb [facility] ID Date Data Source [id number] 03/13/2020 02:41:40 PM EDT [facility] Name Value Range Interpretation Code Description Data Source(s) WEIGHT RECORDED 218 lb 218 lb [facility] ID Date Data Source [id number] 02/05/2020 02:24:11 PM EDT [facility] Name Value Range Interpretation Code Description Data Source(s) WEIGHT RECORDED 234.4 lb 234.4 lb [facility] Body height Measured 61.42 in 61.42 in [facility] Patient Treatment Plan of Care Planned Activity Planned Date Details Description Data Source (s) pantoprazole 40 MG Delayed Release Oral Tablet 09/27/2020 12:00:00 AM EDT eCW1 ([facility]) pantoprazole 40 MG Delayed Release Oral Tablet 09/27/2020 12:00:00 AM EDT eCW1 ([facility]) pregabalin 300 MG Oral Capsule [Lyrica] 09/09/2020 12:00:00 AM EDT eCW1 ([facility]) pregabalin 300 MG Oral Capsule [Lyrica] 09/09/2020 12:00:00 AM EDT eCW1 ([facility]) Morphine Sulfate 2 MG/ML Oral Solution 06/18/2020 12:00:00 AM EDT eCW1 ([facility]) Morphine Sulfate 2 MG/ML Oral Solution 06/18/2020 12:00:00 AM EDT eCW1 ([facility]) Morphine Sulfate 2 MG/ML Oral Solution 06/18/2020 12:00:00 AM EDT eCW1 ([facility]) Morphine Sulfate 2 MG/ML Oral Solution 06/18/2020 12:00:00 AM EDT eCW1 ([facility]) Morphine Sulfate 2 MG/ML Oral Solution 06/18/2020 12:00:00 AM EDT eCW1 ([facility]) Morphine Sulfate 2 MG/ML Oral Solution 06/18/2020 12:00:00 AM EDT eCW1 ([facility]) Morphine Sulfate 2 MG/ML Oral Solution 06/18/2020 12:00:00 AM EDT eCW1 ([facility]) Morphine Sulfate 2 MG/ML Oral Solution 06/18/2020 12:00:00 AM EDT eCW1 ([facility]) Morphine Sulfate 2 MG/ML Oral Solution 05/22/2020 12:00:00 AM EDT eCW1 ([facility]) Morphine Sulfate 2 MG/ML Oral Solution 05/22/2020 12:00:00 AM EDT eCW1 ([facility]) Morphine Sulfate 2 MG/ML Oral Solution 05/22/2020 12:00:00 AM EDT eCW1 ([facility]) Morphine Sulfate 2 MG/ML Oral Solution 05/22/2020 12:00:00 AM EDT eCW1 ([facility]) Morphine Sulfate 2 MG/ML Oral Solution 03/06/2020 12:00:00 AM EDT eCW1 ([facility]) Morphine Sulfate 2 MG/ML Oral Solution 12/29/2019 12:00:00 AM EST eCW1 ([facility]) Morphine Sulfate 2 MG/ML Oral Solution 12/28/2019 12:00:00 AM EST eCW1 ([facility]) Docusate Sodium 50 MG / sennosides, [facility] 8.6 MG Oral Ta blet [SENOKOT-S] 12/13/2019 12:00:00 AM EST eCW1 ([facility])
[2020-12-18] MEDS ORDERED: PANT-23 PO (18:55)
[2020-12-18] MEDS ORDERED: FENT1DIS14 TOP (18:55)
[2020-12-18] MEDS ORDERED: FOSF3PAC2 PO (18:55)
[2020-12-18] MEDS ORDERED: MELA10CA PO (18:55)
[2020-12-18] MEDS: D5W/0.45% SODIUM CHLORIDE 1,000 ML IV SCH (19:42)
[2020-12-18 19:55] LABS: C REACTIVE PROTEIN QUANTITATIV 5.95 MG/DL (0.00-0.30)
[2020-12-18 20:09] LABS: PERCENT SATURATION 9.5 % (13.2-45.0); PROLACTIN 8.3 NG/ML
--- NOTE | 2020-12-18 20:53 | ECGEPIP ---
[facility] - ED Test Date: 2020-12-18 Pat Name: MONI BONILLA Department: Room: - Gender: Female Surgical Services Coordinator: jerald : 1965 Requested By: SHAILESH Burger Order Number: [id number] Reading MD: Ganesh Pedraza Measurements Intervals [place] Rate: 83 P: 33 NC: 191 QRS: 27 QRSD: 79 T: 31 QT: 396 QTc: 468 Interpretive Statements SINUS RHYTHM SIMILAR TO 07/05/19 Electronically Signed on 12-18-2020 20:53:16 EST by Ganesh Pedraza
--- NOTE | 2020-12-18 22:59 | HPEPDOC ---
[facility] Medical History & Physical Date of Admission Dec 18, 2020 Date of Service: Dec 18, 2020 Primary Care Physician: Luis M Morales MD Attending Physician: EVITA MIX MD History and Physical TIME OF SERVICE: 8:15 PM CHIEF COMPLAINT: Altered mental status HISTORY OF PRESENT ILLNESS: This 55-year-old female was brought into the hospital by EMS because her noticed that she has been lethargic since the weekend. He noted that she has not been awake for more than one hour at a time and has not been eating. He denies any changes in her medications over the last few days. He also denies her missing any doses of her meds including her seizure medications. He also denied noticing her complain of any pain or having any acute febrile illness, though he suspects she may have a UTI because she is presented in a similar manner in the past and was subsequently diagnosed with a UTI. At the time of my evaluation, the patient was unable to provide any meaningful history, and kept on falling asleep. Per Dr. Serrato the patient was started on fentanyl 2 months ago and apparently the remove the patch 2 days ago. The patient was noted to be fairly lethargic with bradypnea and received 4 doses of Narcan. REVIEW OF SYSTEMS: Unobtainable because the patient is confused PAST MEDICAL/ SURGICAL HISTORY: Epilepsy Multiple sclerosis / debility, uses rolling walker, wheelchair Neurogenic bladder requiring cystectomy with subsequent placement of urostomy Neurogenic bowel History of recurrent UTIs COPD Hypertension Torticollis Pseudobulbar affect Paresthesias Microcytic anemia B12 deficiency Vitamin D deficiency Migraines Obesity GERD Chronic back pain Anxiety/depression Hepatic steatosis Bilateral breast reduction Bilateral wrist surgery Tubal ligation Resection of basal cell carcinoma resection Wrist surgery Hysterectomy SOCIAL HISTORY: She doesn't smoke, drink alcohol or use recreational drugs, but has remote history of THC use FAMILY HISTORY: n/a ALLERGIES: Please see below. HOME MEDICATIONS: Please see below. PHYSICAL EXAMINATION: VITAL SIGNS: Please see below. GEN: well-nourished / well developed/ lethargic INTEGUMENT: not flushed/ has generalized pallor HEENT: NC in place CVS: RRR/NMRG/ no JVP / radial pulses intact / trace lower extremity edema LUNGS: bradypneic/ lungs are clear to auscultation bilaterally ABDOMEN: Contour ( obese,) / soft & not tender with palpation NEURO: Complete because the patient was lethargic PSYCH: She is not answering questions appropriately but intermittently following commands including squeezing my hand when I asked her to but she does not follow my fingers when asked to track eye movements. LABORATORY DATA: 12/18/20 17:04 Laboratory Tests 2 12/18/20 16:55: Lactic Acid Level 1.2 12/18/20 17:04: Immature Granulocyte % (Auto) 1.1, Neutrophils (%) (Auto) 75.7H, Lymphocytes (%) (Auto) 10.3L, Monocytes (%) (Auto) 8.8H, Eosinophils (%) (Auto) 3.7H, Basophils (%) (Auto) 0.4, Neutrophils # (Auto) 5.5, Lymphocytes # (Auto) 0.8L, Monocytes # (Auto) 0.6, Eosinophils # (Auto) 0.3, Basophils # (Auto) 0.0, Nucleated Red Blood Cells % (auto) 0.0, Urine Color YELLOW, Urine Appearance TURBIDH, Urine pH 7.0, Urine Specific Dickinson 1.017, Urine Protein 2+H, Urine Glucose (UA) NEGATIVE, Urine Ketones NEGATIVE, Urine Blood 1+H, Urine Nitrite NEGATIVE, Urine Bilirubin NEGATIVE, Urine Urobilinogen 0.2, Urine Leukocyte Esterase 2+H, Urine WBC (Auto) 0, Urine RBC (Auto) 0, Urine Hyaline Casts (Auto) 0, Urine Bacteria (Auto) NEGATIVE, Urine Squamous Epithelial Cells 0, Urine Sperm (Auto) , Anion Gap 5L, Glomerular Filtration Rate 23.1L, Calcium Level 8.9, Total Bilirubin 0.3, Direct Bilirubin 0.1, Aspartate Amino Transf (AST/SGOT) 9, Alanine Aminotransferase (ALT/SGPT) 17, Alkaline Phosphatase 406H, Total Creatine Kinase 27, Creatine Kinase MB < 1.0, Creatine Kinase MB Relative Index 3.70, Troponin I < 0.02, Total Protein 7.0, Albumin 3.4, Albumin/Globulin Ratio 0.9L, Thyroid Stimulating Hormone (TSH) 3.030, Salicylates Level < 1.7L, Urine Opiates Screen NEGATIVE, Urine Methadone Screen NEGATIVE, Acetaminophen Level < 2.0L, Urine Barbiturates Screen NEGATIVE, Phenytoin (Dilantin) Level 11.3, Urine Phencyclidine Screen NEGATIVE, Urine Amphetamines Screen NEGATIVE, Urine Benzodiazepines Screen NEGATIVE, Urine Cocaine Metabolite Screen NEGATIVE, Urine Cannabinoids Screen NEGATIVE, Ethyl Alcohol Level < 0.003 12/18/20 17:14: Ammonia 17 12/18/20 17:20: Blood Gas Bicarbonate Standard 18.4L, Arterial Blood pH 7.333L, Arterial Blood Partial Pressure CO2 34.1L, Arterial Blood Partial Pressure O2 140.1H, Arterial Blood Total CO2 18.7L, Arterial Blood HCO3 17.7L, Arterial Blood Base Excess - 7.4L, Arterial Blood Oxygen Saturation 98.6 12/18/20 19:19: Erythrocyte Sedimentation Rate 67H, Iron Level 25L, Total Iron Binding Capacity 262, Transferrin % Saturation 9.5L, Ferritin 51, Ammonia 27, C-Reactive Protein, Quantitative 5.95H, Vitamin B12 Level 585, Folate 7.0, Procalcitonin 0.09, Prolactin 8.3, Phenytoin (Dilantin) Level 9.7L IMAGING: CT head "IMPRESSION: 1. No acute intracranial pathology. 2. Chronic findings, as above." Chest xray "IMPRESSION:No acute infiltrate." MICROBIOLOGY: 12/18/20 Respiratory Virus Panel (PCR) ([facility]) - Final, Complete 12/18/20 Blood Culture, Received Pending 12/18/20 Urine Culture, Received Pending 12/18/20 Blood Culture, Received Pending ASSESSMENT: is a 55-year-old with a history of multiple sclerosis complicated by debility. Neurogenic bladder and bowel, COPD, HTN, pseudobulbar affect, epilepsy, migraines, and chronic pain, was brought to the hospital for evaluation of encephalopathy of unclear cause. PLAN: 1. Encephalopathy May be due to her medications or hypercapnia Plan: Admit to PCU/ frequent Neurochecks /follow-up prolactin, ABG if her PCO2 remains high and her mental status has not improved will consider starting BiPAP / NPO pending improvement in mental status 2. Bradypnea Possibly due to sedation from meds Plan: Continuous pulse oximeter/supplemental oxygen /Narcan PRN RR <10 3.Hypotension Likely due to poor oral intake. She doesn't have SIRS criteria lactic acidosis Plan: IV fluids /hold antihypertensives 4 . TERRELL on CKD3 Plan: monitor UOP / IVF / f/u renal panel, CK, Ulytes for FENa or FEUrea / renal US / hold nephrotoxic drugs 5 . Epilepsy Plan: IV Keppra 6. Multiple sclerosis with neurogenic bladder/ bowel and debility Plan: hold home meds /will need PT eval prior to discharge 7. COPD Plan: hold home meds 8. Microcytic anemia / B12 deficiency Plan: Follow-up iron panel 9.Hypothyroidism Plan: IV levothyroxine 10. Anxiety/depression Plan: hold home meds DVT PROPHYLAXIS: lovenox DISPOSITION: home after more than 2 midnight's stay LATE ENTRY Repeat ABG showed an increase in the patient's PCO2 but per d/w her RN the patient's mental status had improved and the neurochecks were unremarkable; will f/u one more ABG prior to deciding if the patient needs to be moved to ICU for BIPAP Home Medications Scheduled Acyclovir (Acyclovir) 400 Mg Tab, 400 MG PO BID Amantadine HCl (Amantadine) 100 Mg Tablet, 100 MG PO BID Aripiprazole (Aripiprazole) 2 Mg Tablet, 2 MG PO QHS Aspirin (Ecotrin) 81 Mg Tablet.dr, 81 MG PO QHS Atorvastatin Calcium (Atorvastatin Calcium) 40 Mg Tablet, 40 MG PO DAILY Baclofen (Baclofen) 20 Mg Tablet, 40 MG PO BID Clonazepam (Clonazepam) 1 Mg Tab, 1 MG PO QHS Duloxetine Hcl (Duloxetine HCl) 60 Mg Capsule.dr, 60 MG PO BID Ergocalciferol (Vitamin D2) (Vitamin D2) 50,000 Units Cap, 50,000 UNITS PO 1XWK FRI Fentanyl (Fentanyl) 25 Mcg Patch.td72, 25 MCG TOP Q3RD REMOVED 12/18/20 @ 0900, WAS DUE TO REPLACE AFTER SHOWER Fosfomycin Tromethamine (Fosfomycin Tromethamine) 3 Gram Packet, 3 GM PO QWEEK FRI Hydroxyzine HCl (Hydroxyzine HCl) 50 Mg Tablet, 50 MG PO BID Levetiracetam (Keppra) 500 Mg Tablet, 500 MG PO BID Levothyroxine Sodium (Levothyroxine Sodium) 50 Mcg Tablet, 50 MCG PO QAM 30 MINUTES BEFORE BREAKFAST Magnesium Oxide (Magnesium) 500 Mg Capsule, 500 MG PO QHS Melatonin (Melatonin) 10 Mg Capsule, 10 MG PO QHS Meloxicam (Meloxicam) 15 Mg Tablet, 15 MG PO DAILY Pantoprazole Sodium (Pantoprazole Sodium) 40 Mg Tablet.dr, 40 MG PO BID Phenytoin Sodium Extended (Phenytoin Sodium Extended) 100 Mg Capsule, 400 MG PO QHS Potassium Chloride (Potassium Chloride) 10 Meq Tab.er.prt, 10 MEQ PO DAILY Pregabalin (Lyrica) 300 Mg Capsule, 300 MG PO BID Sennosides/Docusate Sodium (Senokot-S Tablet) 1 Each Tablet, 1 TAB PO QHS Scheduled PRN Albuterol Sulfate (Ventolin Hfa) 108 Mcg/Act Aer, 2 PUFFS INH Q4H PRN for SHORTNESS OF BREATH Mometasone Furoate (Asmanex Hfa) 100 Mcg/Act Hfa.aer.ad, 1 PUFF INH BID PRN for ASTHMA SYMPTOMS Promethazine HCl (Promethazine HCl) 25 Mg Tablet, 25 MG PO Q4H PRN for NAUSEA OR VOMITING FOR NAUSEA RELATED TO MIGRAINES Allergies Coded Allergies: Cephalosporins (Verified Allergy, Intermediate, rash, 12/27/19) Sulfa (Sulfonamide Antibiotics) (Verified Allergy, Mild, itchy, 12/27/19) oxycodone (Verified Allergy, Mild, itchy, 12/27/19) hydrocodone (Verified Adverse Reaction, Intermediate, chest pain, 12/27/19) acetaminophen (Verified Adverse Reaction, Mild, NAUSEA, 12/27/19) A-FIB/CHADSVASC A-FIB History Current/History of A-Fib/PAF?: No Current PO Anticoag Therapy: No EVITA MIX MD Dec 18, 2020 22:59
[2020-12-18] MEDS ORDERED: ALBUTEROL 90 MCG/ACT 8GM HFA INHALER INH PRN (23:00)
[2020-12-18 23:06] LABS: ABG BASE EXCESS -5.5 (-2.0-2.0); ABG HCO3 21.1 MEQ/L (22.0-26.0); ABG O2 SATURATION 97.5 % (95.0-99.0); ABG PARTIAL PRESSURE O2 112.8 mmHg (75.0-100.0); ABG TOTAL CO2 22.5 MEQ/L (22.0-29.0)
[2020-12-18 23:30] VITALS: BP 124/83
[2020-12-19] VITALS (11 sets, daily range): BP systolic 133–144; BP diastolic 70–86; O2SAT 94–97
[2020-12-19] MEDS: levETIRAcetam INJection 500 MG in D5W MINI-BAG PLUS 100 ML IV SCH ×2 (00:35→12:02)
[2020-12-19] MEDS ORDERED: NALOXONE INJ 0.4MG/1ML VIAL (J2310 PER 1MG) IV PRN (04:30)
[2020-12-19] MEDS: D5W/0.45% SODIUM CHLORIDE 1,000 ML IV SCH ×2 (06:19→23:09)
[2020-12-19 06:43] LABS: BASO % 0.6 % (0.0-1.0); EOS # 0.2 10^3/uL (0.0-0.5); EOS % 4.9 % (0.0-3.0); HEMATOCRIT 32.4 % (36.0-47.0); HEMOGLOBIN 9.7 g/dl (12.0-15.5); LYMPH # 0.8 10^3/uL (1.5-5.0); LYMPH % 15.6 % (24.0-44.0); MEAN CORPUSCULAR HEMOGLOBIN 26.6 pg (27.0-33.0); MEAN CORPUSCULAR HGB CONC 29.9 g/dl (32.0-36.5); MEAN CORPUSCULAR VOLUME 88.8 fl (80.0-96.0); MONO # 0.5 10^3/uL (0.0-0.8); MONO % 10.1 % (0.0-5.0); NEUTROPHILS # 3.3 10^3/uL (1.5-8.5); NEUTROPHILS % 67.6 % (36.0-66.0); PLATELET COUNT, AUTOMATED 226 10^3/uL (150-450); RED BLOOD COUNT 3.65 10^6/uL (4.00-5.40); WHITE BLOOD COUNT 4.9 10^3/uL (4.0-10.0)
[2020-12-19 07:08] LABS: CREATININE FOR GFR 2.21 MG/DL (0.55-1.30); GLOMERULAR FILTRATION RATE 24.7 (>51); POTASSIUM SERUM 4.3 MEQ/L (3.5-5.1)
--- NOTE | 2020-12-19 08:09 | REP ---
INDICATION: mehreen COMPARISON: 11/20/2019 TECHNIQUE: Real time piña scale and color B-mode ultrasound examination using curved array transducer. FINDINGS: Right kidney measures 10.5 x 6.2 x 4.8 cm and demonstrates moderate hydronephrosis and proximal hydroureter along with increased central sinus fat and cortical thinning suggesting acute on chronic renal disease. No obvious nephrolithiasis, cystic or mass lesion. Left kidney measures 11.0 x 5.2 x 6.0 cm and demonstrates moderate hydronephrosis and proximal hydroureter along with increased central sinus fat and cortical thinning suggesting acute on chronic renal disease. Incidental 1.7 cm upper pole simple cyst noted. No obvious nephrolithiasis, or mass lesion. IMPRESSION: 1. Bilateral moderate hydroureteronephrosis. 2. Evidence for underlying chronic renal disease. <Electronically signed by Efe Tovar > 12/19/20 0835
[2020-12-19] MEDS: LEVOTHYROXINE 100MCG (0.1MG) VIAL IV SCH (09:01)
[2020-12-19] MEDS: ENOXAPARIN 30MG/0.3ML SYRINGE (J1650 PER 10MG) SC SCH (09:01)
--- NOTE | 2020-12-19 13:31 | IPNPDOC ---
Text Note Date of Service The patient was seen on 12/19/20. NOTE Subjective: Patient seen and examined at bedside. No acute overnight events reported. Patient has no medical complaints this morning. She states she fell down, possibly mechanical, she is not clear if she had head trauma. Objective: General: NAD, lying comfortably in bed, appears older than stated age HEENT: NC/AT, PERRL Lungs: CTA B/L Heart: +S1S2, RRR Abd: soft, NT, +BS Ext: no edema A/P: 55-year-old female with a history of multiple sclerosis complicated by debility, neurogenic bladder and bowel, COPD, HTN, pseudobulbar affect, epilepsy, migraines, and chronic pain, was brought to the hospital for evaluation of encephalopathy of unclear cause. # Encephalopathy May be due to her medications or hypercapnia - Neurochecks /follow-up prolactin, ABG if her PCO2 remains high and her mental status has not improved will consider starting BiPAP / NPO pending improvement in mental status #Bradypnea Possibly due to sedation from meds Plan: Continuous pulse oximeter/supplemental oxygen /Narcan PRN RR <10 #Hypotension Likely due to poor oral intake. She doesn't have SIRS criteria lactic acidosis Plan: IV fluids /hold antihypertensives #TERRELL on CKD3 Plan: monitor UOP / IVF / f/u renal panel, CK, Ulytes for FENa or FEUrea / renal US / hold nephrotoxic drugs - chronic UTI's secondary to neurogenic bladder - follows with dr radford - prophylactic fosfomycin weekly - started levaquin, UCx pending - previously responded to meropenem # Epilepsy - IV Keppra - levels pending #Multiple sclerosis with neurogenic bladder/ bowel and debility Plan: hold home meds /will need PT eval prior to discharge - follows with neurology and pain center in [place] - only prescribing fentanyl patch there - remainder of meds from pcp dr. salmon - refuses to see neurology in [place] #COPD Plan: hold home meds #Microcytic anemia / B12 deficiency Plan: Follow-up iron panel #Hypothyroidism Plan: IV levothyroxine #Anxiety/depression Plan: hold home meds DVT PROPHYLAXIS: lovenox Dispo: pending clinical improvement; extensive discussion with chantale castro [phone] over the phone VS,Rafael, I+O VS, Maritae, I+O Laboratory Tests 12/18/20 17:04 12/19/20 06:06 Vital Signs Date Time Temp Pulse Resp B/P (MAP) Pulse Ox O2 Delivery O2 Flow Rate FiO2 12/19/20 12:00 97.2 98 18 144/79 (100) 98 Room Air 12/19/20 03:00 2.0 I&O- Last 24 Hours up to 6 AM 12/19/20 05:59 Intake Total 1070 ml Output Total 500 ml Balance 570 ml ISABEL GRAHAM MD Dec 19, 2020 13:31
[2020-12-19] MEDS ORDERED: LevoFLOXacin IV 500 MG in IV 1 EA IV ONE (15:00)
[2020-12-20] VITALS (15 sets, daily range): BP systolic 123–137; BP diastolic 53–85; O2SAT 92–96
[2020-12-20] MEDS: levETIRAcetam INJection 500 MG in D5W MINI-BAG PLUS 100 ML IV SCH ×3 (00:13→22:55)
[2020-12-20 05:28] LABS: BASO % 0.4 % (0.0-1.0); EOS # 0.2 10^3/uL (0.0-0.5); EOS % 2.2 % (0.0-3.0); HEMOGLOBIN 9.5 g/dl (12.0-15.5); LYMPH # 0.6 10^3/uL (1.5-5.0); LYMPH % 7.9 % (24.0-44.0); MEAN CORPUSCULAR HEMOGLOBIN 26.6 pg (27.0-33.0); MEAN CORPUSCULAR HGB CONC 30.6 g/dl (32.0-36.5); MEAN CORPUSCULAR VOLUME 86.8 fl (80.0-96.0); MONO # 0.5 10^3/uL (0.0-0.8); MONO % 7.2 % (0.0-5.0); NEUTROPHILS % 81.5 % (36.0-66.0); PLATELET COUNT, AUTOMATED 255 10^3/uL (150-450); RED BLOOD COUNT 3.57 10^6/uL (4.00-5.40); WHITE BLOOD COUNT 7.4 10^3/uL (4.0-10.0)
[2020-12-20 05:51] LABS: CALCIUM LEVEL 9.1 MG/DL (8.5-10.1); CREATININE FOR GFR 2.05 MG/DL (0.55-1.30); POTASSIUM SERUM 4.4 MEQ/L (3.5-5.1)
[2020-12-20] MEDS: D5W/0.45% SODIUM CHLORIDE 1,000 ML IV SCH ×2 (08:04→16:32)
[2020-12-20] MEDS: ENOXAPARIN 30MG/0.3ML SYRINGE (J1650 PER 10MG) SC SCH (08:04)
[2020-12-20] MEDS: LEVOTHYROXINE 100MCG (0.1MG) VIAL IV SCH (08:04)
--- NOTE | 2020-12-20 10:00 | IPNPDOC ---
Text Note Date of Service The patient was seen on 12/20/20. NOTE Subjective: Patient seen and examined at bedside. No acute overnight events reported. Patient has no medical complaints this morning. She states she is feeling better, but does not feel at her usual baseline. Objective: General: NAD, lying comfortably in bed HEENT: NC/AT, PERRL Lungs: CTA B/L Heart: +S1S2, RRR Abd: soft, NT, +BS Ext: no edema A/P: 55-year-old female with a history of multiple sclerosis complicated by debility, neurogenic bladder and bowel, COPD, HTN, pseudobulbar affect, epilepsy, migraines, and chronic pain, was brought to the hospital for evaluation of encephalopathy of unclear cause. # Encephalopathy - appears to be secondary to polypharmacy - particularly medications with sedative effects - meds on hold - will restart with caution - recently started on fentanyl patch - may have been the inciting medication #Bradypnea - Possibly due to sedation from meds - resolved #Hypotension - poor po intake, adverse effects from sedating medications at home - continue to monitor, gentle iv hydration #TERRELL on CKD3 - improving - chronic UTI's secondary to neurogenic bladder - follows with dr radford - prophylactic fosfomycin weekly - started levaquin, UCx pending - previously responded to meropenem # Epilepsy - IV Keppra - levels pending #Multiple sclerosis with neurogenic bladder/ bowel and debility Plan: hold home meds /will need PT eval prior to discharge - follows with neurology and pain center in [place] - only prescribing fentanyl patch there - remainder of meds from pcp dr. salmon - refuses to see neurology in [place] #COPD - home meds #Microcytic anemia / B12 deficiency #Hypothyroidism Plan: IV levothyroxine #Anxiety/depression Plan: hold home meds DVT PROPHYLAXIS: lovenox Dispo: pending clinical improvement; swallow evaluation; extensive discussion with chantale castro [phone] over the phone; PT recommending rehab, was hoping for rehab as well VS,Fishbone, I+O VS, Fishbone, I+O Laboratory Tests 12/20/20 04:46 Vital Signs Date Time Temp Pulse Resp B/P (MAP) Pulse Ox O2 Delivery O2 Flow Rate FiO2 12/20/20 08:00 98.9 103 18 123/75 (91) 94 Room Air 12/19/20 03:00 2.0 I&O- Last 24 Hours up to 6 AM 12/20/20 05:59 Intake Total 1410 ml Output Total 1175 ml Balance 235 ml ISABEL GRAHAM MD Dec 20, 2020 10:00
[2020-12-21] VITALS (20 sets, daily range): BP systolic 137–154; BP diastolic 75–93; O2SAT 91–94
[2020-12-21 07:08] LABS: BASO # 0.1 10^3/uL (0.0-0.2); BASO % 0.3 % (0.0-1.0); EOS % 0.1 % (0.0-3.0); HEMATOCRIT 35.4 % (36.0-47.0); HEMOGLOBIN 11.3 g/dl (12.0-15.5); LYMPH # 0.6 10^3/uL (1.5-5.0); LYMPH % 4.2 % (24.0-44.0); MEAN CORPUSCULAR HGB CONC 31.9 g/dl (32.0-36.5); MEAN CORPUSCULAR VOLUME 84.7 fl (80.0-96.0); MONO # 0.9 10^3/uL (0.0-0.8); MONO % 6.3 % (0.0-5.0); NEUTROPHILS % 87.6 % (36.0-66.0); PLATELET COUNT, AUTOMATED 294 10^3/uL (150-450); RED BLOOD COUNT 4.18 10^6/uL (4.00-5.40); WHITE BLOOD COUNT 14.9 10^3/uL (4.0-10.0)
[2020-12-21 07:32] LABS: CALCIUM LEVEL 9.7 MG/DL (8.5-10.1); CREATININE FOR GFR 2.23 MG/DL (0.55-1.30); GLOMERULAR FILTRATION RATE 24.5 (>51); POTASSIUM SERUM 4.3 MEQ/L (3.5-5.1)
[2020-12-21] MEDS: ENOXAPARIN 30MG/0.3ML SYRINGE (J1650 PER 10MG) SC SCH (09:07)
[2020-12-21] MEDS: LEVOTHYROXINE 100MCG (0.1MG) VIAL IV SCH (09:07)
--- NOTE | 2020-12-21 11:04 | IPNPDOC ---
Text Note Date of Service The patient was seen on 12/21/20. NOTE Subjective: Patient seen and examined at bedside. No acute overnight events reported. Patient has no medical complaints this morning. Continues to feel better. Objective: General: NAD, lying comfortably in bed HEENT: NC/AT, PERRL Lungs: CTA B/L Heart: +S1S2, RRR Abd: soft, NT, +BS Ext: no edema A/P: 55-year-old female with a history of multiple sclerosis complicated by debility, neurogenic bladder and bowel, COPD, HTN, pseudobulbar affect, epilepsy, migraines, and chronic pain, was brought to the hospital for evaluation of encephalopathy of unclear cause. # Encephalopathy - appears to be secondary to polypharmacy, sedative medications - meds on hold - will restart with caution - recently started on fentanyl patch - may have been the inciting medication for her encephalopathy #Bradypnea - Possibly due to sedation from meds - resolved #Hypotension - poor po intake, adverse effects from sedating medications at home - resolved #TERRELL on CKD3 - improving #UTI - chronic UTI's secondary to neurogenic bladder - follows with dr radford - prophylactic fosfomycin weekly - UCx - providencia, good sensitivities - received loading dose levaquin 12/19, however will switch to meropenem today for better [facility]; states previously has responded well to Meropenem # Epilepsy - Keppra - levels pending - resumed keppra and phenytoin #Multiple sclerosis with neurogenic bladder/ bowel and debility - follows with neurology and pain center in [place] - only prescribing fentanyl patch there - remainder of meds from pcp - refuses to see neurology in [place] - states he does not want [place] [facility] involved at all #COPD - home meds #Microcytic anemia / B12 deficiency #Hypothyroidism - levothyroxine #Anxiety/depression - cymbalta DVT PROPHYLAXIS: lovenox Dispo: pending clinical improvement, placement for short term rehab; discussed at length with Joey Yang [phone] VS,Fishbone, I+O VS, Fishbone, I+O Laboratory Tests 12/21/20 06:27 Vital Signs Date Time Temp Pulse Resp B/P (MAP) Pulse Ox O2 Delivery O2 Flow Rate FiO2 12/21/20 10:00 92 Room Air 12/21/20 08:00 99.2 100 18 143/83 (103) 12/19/20 03:00 2.0 I&O- Last 24 Hours up to 6 AM0 12/21/20 06:00 Intake Total 1180 ml Output Total 700 ml Balance 480 ml ISABEL GRAHAM MD Dec 21, 2020 11:04
[2020-12-21] MEDS: DULoxetine 30 MG CAP (CYMBALTA) PO SCH ×2 (11:28→20:02)
[2020-12-21] MEDS: levETIRAcetam 250MG TABLET (KEPPRA) PO SCH ×2 (11:28→20:02)
[2020-12-21 16:52] LABS: BASO # 0.1 10^3/uL (0.0-0.2); BASO % 0.5 % (0.0-1.0); HEMOGLOBIN 11.2 g/dl (12.0-15.5); LYMPH # 0.7 10^3/uL (1.5-5.0); LYMPH % 4.8 % (24.0-44.0); MEAN CORPUSCULAR HEMOGLOBIN 27.1 pg (27.0-33.0); MEAN CORPUSCULAR VOLUME 84.5 fl (80.0-96.0); MONO % 6.8 % (0.0-5.0); NEUTROPHILS # 13.2 10^3/uL (1.5-8.5); NEUTROPHILS % 85.9 % (36.0-66.0); PLATELET COUNT, AUTOMATED 302 10^3/uL (150-450); RED BLOOD COUNT 4.14 10^6/uL (4.00-5.40); WHITE BLOOD COUNT 15.3 10^3/uL (4.0-10.0)
[2020-12-21] MEDS: MEROPENEM INJ 1 GM in IV 1 EA IV SCH (17:00)
[2020-12-21 17:16] LABS: ALBUMIN 3.4 GM/DL (3.2-5.2); ALT/SGPT 14 U/L (12-78); BILIRUBIN,TOTAL 0.3 MG/DL (0.2-1.0); BLOOD UREA NITROGEN 28 MG/DL (7-18); CALCIUM LEVEL 9.3 MG/DL (8.5-10.1); CARBON DIOXIDE LEVEL 19 MEQ/L (21-32); CHLORIDE LEVEL 110 MEQ/L (98-107); CK-MB VALUE MASS < 1.0 NG/ML (<3.6); CPK CREATINE PHOSPHOKINASE 37 U/L (26-192); CREATININE FOR GFR 2.22 MG/DL (0.55-1.30); GLOMERULAR FILTRATION RATE 24.6 (>51); GLUCOSE, FASTING 114 MG/DL (70-100); POTASSIUM SERUM 4.2 MEQ/L (3.5-5.1); SODIUM LEVEL 142 MEQ/L (136-145); TOTAL PROTEIN 7.3 GM/DL (6.4-8.2); TROPONIN I < 0.02 NG/ML (< 0.10)
[2020-12-21 17:52] LABS: ABG PARTIAL PRESSURE CO2 26.4 mmHg (35.0-45.0)
[2020-12-21 17:53] LABS: ABG HCO3 17.7 MEQ/L (22.0-26.0); ABG O2 SATURATION 97.7 % (95.0-99.0); ABG PARTIAL PRESSURE O2 94.6 mmHg (75.0-100.0); ABG STANDARD HCO3 20.4 MEQ/L (22.0-26.0); ABG TOTAL CO2 18.5 MEQ/L (22.0-29.0); ABG pH (ARTERIAL) 7.445 UNITS (7.350-7.450)
[2020-12-21] MEDS: PHENYTOIN ER 100 MG CAP PO SCH (20:03)
[2020-12-22] VITALS (16 sets, daily range): BP systolic 134–188; BP diastolic 79–108; O2SAT 91–92
[2020-12-22] MEDS: LEVOTHYROXINE 50MCG TABLET (0.05MG) PO SCH (05:42)
[2020-12-22] MEDS: MEROPENEM INJ 1 GM in IV 1 EA IV SCH ×2 (05:43→16:48)
[2020-12-22 06:00] LABS: BASO # 0.1 10^3/uL (0.0-0.2); BASO % 0.5 % (0.0-1.0); EOS % 0.1 % (0.0-3.0); HEMATOCRIT 34.8 % (36.0-47.0); HEMOGLOBIN 10.8 g/dl (12.0-15.5); LYMPH # 0.7 10^3/uL (1.5-5.0); LYMPH % 4.5 % (24.0-44.0); MEAN CORPUSCULAR HEMOGLOBIN 26.5 pg (27.0-33.0); MEAN CORPUSCULAR VOLUME 85.3 fl (80.0-96.0); MONO # 1.1 10^3/uL (0.0-0.8); MONO % 6.9 % (0.0-5.0); NEUTROPHILS # 13.9 10^3/uL (1.5-8.5); NEUTROPHILS % 85.4 % (36.0-66.0); PLATELET COUNT, AUTOMATED 276 10^3/uL (150-450); RED BLOOD COUNT 4.08 10^6/uL (4.00-5.40); WHITE BLOOD COUNT 16.3 10^3/uL (4.0-10.0)
--- NOTE | 2020-12-22 06:16 | ECGEPIP ---
[facility] Test Date: 2020-12-21 Pat Name: MONI BONILLA Department: Room: [place] [address] Gender: Female Wellness Coach: RICKY : 1965 Requested By: ISABEL Israel Order Number: [id number] Reading MD: Anabell Quezada Measurements Intervals [place] Rate: 125 P: 33 CA: 172 QRS: 65 QRSD: 66 T: 22 QT: 295 QTc: 427 Interpretive Statements SINUS TACHYCARDIA ABNORMAL RHYTHM ECG Electronically Signed on 12-22-2020 6:15:51 EST by Anabell Quezada
[2020-12-22 06:21] LABS: C REACTIVE PROTEIN QUANTITATIV 6.52 MG/DL (0.00-0.30); CALCIUM LEVEL 9.3 MG/DL (8.5-10.1); CREATININE FOR GFR 2.38 MG/DL (0.55-1.30); GLOMERULAR FILTRATION RATE 22.7 (>51)
[2020-12-22 06:23] LABS: ERYTHROCYTE SEDIMENTATION RATE 68 mm/hr (0-30)
--- NOTE | 2020-12-22 09:08 | IPN ---
PROGRESS NOTE DATE: 12/22/2020 SUBJECTIVE: Elise is seen in the PCU, admitted for encephalopathy, probably polypharmacy, was started on a Fentanyl Patch by Pain Clinic in [place] and has had a steady decline since then. Her home situation was discussed with her , Joey, the day of her admission in my office. She does need placement after discharge. She has a history of recurrent UTIs, currently has a Providencia UTI for which she is on Meropenem. History of MS. She actually underwent a stem cell transplant a clinic in [place] last year in an attempt to slow the progression of her multiple sclerosis. She has a history of chronic anxiety and depression, hypothyroidism, epilepsy and chronic kidney disease. Today, she was sleeping when I saw her. She answered questions appropriately but fell back asleep. PHYSICAL EXAMINATION: VITAL SIGNS: Stable. Heart rate, however is tachycardic up in the 120 range when I was examining her. GENERAL APPEARANCE: Resting in bed in no distress. LUNGS: Clear. HEART: Regular rhythm. ABDOMEN: Soft, nontender. EXTREMITIES: No peripheral edema. NEUROLOGIC: Unchanged. LABORATORY DATA: White count is up to 16.3, hemoglobin is 10.8, platelets 276,000, sodium 144, potassium 4, BUN 32, creatinine 2.4, glucose 110. C-reactive protein is up to 6.5. IMPRESSION: 1. Encephalopathy secondary to polypharmacy, most of these medications including Fentanyl Patch have been discontinued. 2. Providencia UTI, she is on Meropenem day #2. White count is rising, C-reactive protein is rising. Need to keep a close eye on this. 3. Tachycardia, p.o. intake is suspect. I will touch base with our nurse and if she confirms this will probably give some IV fluids. 4. Multiple sclerosis. She does require placement, she cannot go home from the hospital upon discharge.
[2020-12-22] MEDS: DULoxetine 30 MG CAP (CYMBALTA) PO SCH ×2 (10:10→21:01)
[2020-12-22] MEDS: levETIRAcetam 250MG TABLET (KEPPRA) PO SCH ×2 (10:10→21:01)
[2020-12-22] MEDS: ENOXAPARIN 30MG/0.3ML SYRINGE (J1650 PER 10MG) SC SCH (10:11)
[2020-12-22] MEDS ORDERED: LR 1,000 ML IV SCH (11:00)
[2020-12-22] MEDS ORDERED: ACETAMINOPHEN 500 MG TAB PO PRN (11:30)
[2020-12-22] MEDS: ACETAMINOPHEN TAB 650MG DOSE (2X325MG) PO PRN (12:00)
[2020-12-22] MEDS: PREGABALIN 100 MG CAP (LYRICA) PO SCH (15:39)
[2020-12-22] MEDS: ACYCLOVIR 200 MG CAPSULE PO SCH (16:47)
[2020-12-22] MEDS: ARIPiprazole 2 MG TAB PO SCH (16:48)
[2020-12-22] MEDS: AMANTADINE 100MG TABLET PO SCH (16:50)
[2020-12-22] MEDS: PHENYTOIN ER 100 MG CAP PO SCH (21:03)
[2020-12-23] VITALS: BP 144/80
[2020-12-23 04:00] VITALS: BP 139/87
[2020-12-23 05:11] LABS: BASO # 0.1 10^3/uL (0.0-0.2); BASO % 0.4 % (0.0-1.0); EOS # 0.1 10^3/uL (0.0-0.5); EOS % 0.8 % (0.0-3.0); LYMPH # 0.6 10^3/uL (1.5-5.0); LYMPH % 4.3 % (24.0-44.0); MEAN CORPUSCULAR HEMOGLOBIN 27.2 pg (27.0-33.0); MEAN CORPUSCULAR HGB CONC 31.3 g/dl (32.0-36.5); MONO % 7.7 % (0.0-5.0); NEUTROPHILS # 11.2 10^3/uL (1.5-8.5); NEUTROPHILS % 84.5 % (36.0-66.0); PLATELET COUNT, AUTOMATED 182 10^3/uL (150-450); RED BLOOD COUNT 3.68 10^6/uL (4.00-5.40); WHITE BLOOD COUNT 13.2 10^3/uL (4.0-10.0)
[2020-12-23 05:14] LABS: CALCIUM LEVEL 8.9 MG/DL (8.5-10.1); CREATININE FOR GFR 1.93 MG/DL (0.55-1.30); GLOMERULAR FILTRATION RATE 28.9 (>51); POTASSIUM SERUM 3.5 MEQ/L (3.5-5.1)
[2020-12-23] MEDS: MEROPENEM INJ 1 GM in IV 1 EA IV SCH ×2 (05:27→17:21)
[2020-12-23] MEDS: ACETAMINOPHEN TAB 650MG DOSE (2X325MG) PO PRN (05:27)
[2020-12-23] MEDS: LEVOTHYROXINE 50MCG TABLET (0.05MG) PO SCH (05:27)
[2020-12-23 08:00] VITALS: BP 129/69
--- NOTE | 2020-12-23 08:51 | IPN ---
PROGRESS NOTE DATE: 12/23/2020 SUBJECTIVE: Elise is dramatically better than yesterday. Elise's nurse, Ludwig, yesterday called me and was concerned about her tachycardia, hypertension, altered mental status. We reviewed her admission and her outpatient medication list and determined that she is probably withdrawing from abrupt discontinuation of some of her medications. We restarted her Zovirax, amantadine, Abilify, and most importantly her Lyrica and her baseline mental status seems to be dramatically improved today. Vital signs have stabilized and she looks much closer to her baseline. OBJECTIVE: VITAL SIGNS: Blood pressure 139/87, pulse 100, respiratory rate 22, O2 saturation 92%. GENERAL APPEARANCE: She is alert. She answers questions. She recognized me from the doorway. She is feeding herself breakfast. LUNGS: Clear. HEART: Regular rate and rhythm. ABDOMEN: Soft and nontender. EXTREMITIES: No peripheral edema. LABORATORY DATA: White count 13 down from 13.2, hemoglobin 10, platelets 182,000. Sodium 147, potassium 3.5, BUN 35, creatinine down to 1.93. IMPRESSION: 1. Encephalopathy secondary to polypharmacy, as well as withdrawal from some of her typical medications. Mental status is approaching baseline. She has had dramatic improvement in the last 24 hours. 2. Providencia urinary tract infection (UTI). She is on meropenem day 3. White count is improved today. 3. Hypernatremia. P.o. intake is suspect. I gave her some intravenous (IV) fluids yesterday and I am hoping to avoid this today. 4. Multiple sclerosis. She requires placement after she is medically stable. 5. Acute on chronic kidney disease. Renal function is improved. P.o. intake is still not to baseline. Daily labs have been ordered.
[2020-12-23] MEDS: ACYCLOVIR 200 MG CAPSULE PO SCH ×2 (09:04→20:42)
[2020-12-23] MEDS: AMANTADINE 100MG TABLET PO SCH ×2 (09:04→20:41)
[2020-12-23] MEDS: levETIRAcetam 250MG TABLET (KEPPRA) PO SCH ×2 (09:04→20:41)
[2020-12-23] MEDS: DULoxetine 30 MG CAP (CYMBALTA) PO SCH ×2 (09:04→20:41)
[2020-12-23] MEDS: PREGABALIN 100 MG CAP (LYRICA) PO SCH ×2 (09:05→20:42)
[2020-12-23] MEDS: ENOXAPARIN 30MG/0.3ML SYRINGE (J1650 PER 10MG) SC SCH (09:05)
[2020-12-23 12:00] VITALS: BP 134/69
[2020-12-23 16:00] VITALS: BP 123/74
[2020-12-23 19:15] VITALS: BP 117/61
[2020-12-23] MEDS: PHENYTOIN ER 100 MG CAP PO SCH (20:41)
[2020-12-23] MEDS: ARIPiprazole 2 MG TAB PO SCH (20:42)
[2020-12-24] VITALS: BP 122/75
[2020-12-24 04:00] VITALS: BP 155/82
[2020-12-24] MEDS: MEROPENEM INJ 1 GM in IV 1 EA IV SCH (04:54)
[2020-12-24] MEDS: LEVOTHYROXINE 50MCG TABLET (0.05MG) PO SCH (04:54)
[2020-12-24 06:17] LABS: BASO % 0.4 % (0.0-1.0); EOS # 0.3 10^3/uL (0.0-0.5); EOS % 2.3 % (0.0-3.0); HEMATOCRIT 31.3 % (36.0-47.0); HEMOGLOBIN 9.6 g/dl (12.0-15.5); LYMPH # 0.4 10^3/uL (1.5-5.0); LYMPH % 3.7 % (24.0-44.0); MEAN CORPUSCULAR HEMOGLOBIN 27.2 pg (27.0-33.0); MEAN CORPUSCULAR HGB CONC 30.7 g/dl (32.0-36.5); MEAN CORPUSCULAR VOLUME 88.7 fl (80.0-96.0); MONO # 0.7 10^3/uL (0.0-0.8); MONO % 6.6 % (0.0-5.0); NEUTROPHILS # 9.4 10^3/uL (1.5-8.5); NEUTROPHILS % 84.8 % (36.0-66.0); PLATELET COUNT, AUTOMATED 162 10^3/uL (150-450); RED BLOOD COUNT 3.53 10^6/uL (4.00-5.40); WHITE BLOOD COUNT 11.1 10^3/uL (4.0-10.0)
[2020-12-24 06:47] LABS: CALCIUM LEVEL 8.9 MG/DL (8.5-10.1); CREATININE FOR GFR 1.59 MG/DL (0.55-1.30); GLOMERULAR FILTRATION RATE 36.2 (>51); PHENYTOIN (DILANTIN) 4.9 UG/ML (10.0-20.0); POTASSIUM SERUM 3.6 MEQ/L (3.5-5.1)
[2020-12-24 08:00] VITALS: BP 158/82; O2SAT 92
[2020-12-24] MEDS ORDERED: LevoFLOXacin 500 MG TABLET PO ONE (08:00)
[2020-12-24] MEDS: AMANTADINE 100MG TABLET PO SCH ×2 (11:43→20:35)
[2020-12-24] MEDS: DULoxetine 30 MG CAP (CYMBALTA) PO SCH ×2 (11:43→20:35)
[2020-12-24] MEDS: levETIRAcetam 250MG TABLET (KEPPRA) PO SCH ×2 (11:43→20:35)
[2020-12-24] MEDS: ACYCLOVIR 200 MG CAPSULE PO SCH ×2 (11:44→20:34)
[2020-12-24] MEDS: ENOXAPARIN 30MG/0.3ML SYRINGE (J1650 PER 10MG) SC SCH (11:44)
[2020-12-24] MEDS: PREGABALIN 100 MG CAP (LYRICA) PO SCH ×2 (11:44→20:35)
[2020-12-24 12:00] VITALS: BP 137/83; O2SAT 92
[2020-12-24 16:00] VITALS: BP 128/73
--- NOTE | 2020-12-24 18:43 | IPNPDOC ---
Date Seen The patient was seen on 12/24/20. Progress Note SUBJECTIVE: Per nursing, patient was reported to slide out of bed. First day caring for Elise but she was confused to time and place, knew name, date of . Per PT, she demonstrated a slight regression in regards to mentation compared to day prior and last week. HR still slightly elevated, MRI ordered. Neurology to be called. She denies chest pain, shortness of breath, n/v/d. OBJECTIVE: PHYSICAL EXAM: VITAL SIGNS: Please see below GENERAL APPEARANCE: She is alert. She answers questions but is oriented to only self, not place or time LUNGS: CTAB, no W/R/R CVS: S1S2, no M/R/G ABDOMEN: obese, Soft and nontender, BS + in 4 quad EXTREMITIES: No peripheral edema. Neuro: CN 2-12 intact, no focal deficits. Generalized weakness 4/5 in all ext, no sensory or motor deficits. No horizontal or vertical nystagmus, no hyperreflexia in any extremity LABORATORY DATA: Please see below MICROBIOLOGY: UCx: PROVIDENCIA RETTGERI Bcx x 2 sets: NG COVID/resp panel: neg IMAGING: CT head: 1. No acute intracranial pathology. Chronic findings. A/P: Encephalopathy likely multifactorial 2/2 to polypharmacy, as well as withdrawal from some of her typical medications and UTI -Per neuro, has had encephalopathy in the past, required EEGs to r/o seizures -regularly follows with neurologist in [place], not established here locally -MS, according to nursing/PT/OT, slightly regressed today -Unable to do MRI with and without gadolinium due to TERRELL. When TERRELL resolved and can see. If active lesions seen, can add steroids -For now c/w treatment below for UTI. If 2/2 to UTI, treatment should help improve current state -PT/OT Providencia UTI -UCx above -Changed from meropenem (Day 4) to PO levofloxacin -Per nursing was previously on levofloxacin but did not respond well early in course -Now that she is slightly improved, will f/u progress. If needed can change Secondary progressive multiple sclerosis -Per neuro, possibly pseudo-exacerbation 2/2 to UTI -Do not treat with steroids unless seen to have active lesion -Consider MRI with gadolinium when Cr improves futher. -C/w PT/OT for now treatment with abx above Acute kidney injury on chronic kidney disease -Cr further improved -IVFs stopped, encourage PO intake. -F/u daily labs, avoid nephrotoxic meds Hypernatremia, acute likley 2/2 to IVFs -Na 148, f/u AM labs DVT px -Lovenox DISPOSITION: C/w PT/OT, treatment above. Home with services vs. placement at discharge. VS, I&O, 24H, Fishbone Vital Signs/I&O Vital Signs Date Time Temp Pulse Resp B/P (MAP) Pulse Ox O2 Delivery O2 Flow Rate FiO2 12/24/20 12:00 92 Room Air 12/24/20 12:00 98.0 105 18 137/83 (101) 12/23/20 16:00 1.0 I&O- Last 24 Hours up to 6 AM 12/24/20 06:00 Intake Total 120 ml Output Total 1550 ml Balance -1430 ml Laboratory Data 24H LABS Laboratory Tests 2 12/24/20 05:51: Immature Granulocyte % (Auto) 2.2, Neutrophils (%) (Auto) 84.8H, Lymphocytes (%) (Auto) 3.7L, Monocytes (%) (Auto) 6.6H, Eosinophils (%) (Auto) 2.3, Basophils (%) (Auto) 0.4, Neutrophils # (Auto) 9.4H, Lymphocytes # (Auto) 0.4L, Monocytes # (Auto) 0.7, Eosinophils # (Auto) 0.3, Basophils # (Auto) 0.0, Nucleated Red Blood Cells % (auto) 0.0, Anion Gap 11, Glomerular Filtration Rate 36.2L, Calcium Level 8.9, Phenytoin (Dilantin) Level 4.9L CBC/BMP Laboratory Tests 12/24/20 05:51 Microbiology Microbiology 12/18/20 Respiratory Virus Panel (PCR) (VANDANA) - Final, Complete 12/18/20 Blood Culture - Final, Complete NO GROWTH AFTER 5 DAYS 12/18/20 Urine Culture - Final, Complete Providencia Rettgeri 12/18/20 Blood Culture - Final, Complete NO GROWTH AFTER 5 DAYS Current Medications Current Medications Medications (Trade) Dose Ordered Sig/Felix Route PRN Reason Start Time Stop Time Status Last Admin Dose Admin Acetaminophen (Tylenol Tab) 500 mg Q4HP PRN PO PAIN OR FEVER 12/22/20 11:30 12/22/20 11:35 DC Acetaminophen (Tylenol Tab) 650 mg Q4HP PRN PO PAIN OR FEVER 12/22/20 11:30 12/23/20 05:27 Acyclovir (Zovirax) 400 mg BID PO 12/22/20 16:00 12/24/20 11:44 Albuterol Sulfate (Proventil, Ventolin Hfa) 2 puff Q4HP PRN INH SHORTNESS OF BREATH 12/18/20 23:00 Amantadine HCl (Symmetrel) 100 mg BID PO 12/22/20 16:00 12/24/20 11:43 Aripiprazole (AbiLIFY) 2 mg QHS PO 12/22/20 16:00 12/23/20 20:42 Dextrose/Sodium Chloride 1,000 ml @ 100 mls/hr Q10H IV 12/18/20 18:30 12/20/20 17:00 DC 12/20/20 16:32 Duloxetine HCl (Cymbalta) 60 mg BID PO 12/21/20 11:00 12/24/20 11:43 Enoxaparin Sodium (Lovenox) 30 mg DAILY SC 12/19/20 09:00 12/24/20 11:44 Home Med (Med Rec Complete!) ASDIRECTED XX 12/18/20 19:00 12/18/20 18:57 DC Lactated Ringer's 1,000 ml @ 100 mls/hr Q10H IV 12/22/20 11:00 12/22/20 20:59 DC 12/22/20 11:29 Levetiracetam (Keppra) 500 mg BID PO 12/21/20 11:00 12/24/20 11:43 Levetiracetam 500 mg/Dextrose 105 ml @ 420 mls/hr Q12H IV 12/18/20 23:00 12/21/20 10:52 DC 12/20/20 22:55 Levofloxacin (Levaquin) 250 mg DAILY@06 PO 12/25/20 06:00 Levothyroxine Sodium (Synthroid) 25 mcg DAILY IV 12/19/20 09:00 12/21/20 16:27 DC 12/21/20 09:07 Levothyroxine Sodium (Synthroid) 50 mcg DAILY@06 PO 12/22/20 06:00 12/24/20 04:54 Meropenem 1 gm/IV Miscellaneous Supplies 50 ml @ 100 mls/hr Q12H IV 12/21/20 17:00 12/24/20 07:52 DC 12/24/20 04:54 Naloxone HCl (Narcan) 0.1 mg Q5MP PRN IV RESP. RATE < 10 12/19/20 04:30 Naloxone HCl (Narcan) 0.4 mg STAT STAT IV 12/18/20 16:56 12/18/20 16:57 DC 12/18/20 16:56 Naloxone HCl (Narcan) 4 mg STAT STAT IV 12/18/20 17:38 12/18/20 17:39 Cancel Naloxone HCl (Narcan) 4 mg STAT STAT IV 12/18/20 17:56 12/18/20 17:57 DC 12/18/20 17:59 Phenytoin (Dilantin) 400 mg QHS PO 12/21/20 21:00 12/23/20 20:41 Pregabalin (Lyrica) 300 mg BID PO 12/22/20 16:00 12/24/20 11:44 Sodium Chloride 1,000 ml @ 150 mls/hr Q6H40M IV 12/18/20 17:50 12/18/20 18:18 DC 12/18/20 17:53 Allergies Coded Allergies: Cephalosporins (Verified Allergy, Intermediate, rash, 12/27/19) Sulfa (Sulfonamide Antibiotics) (Verified Allergy, Mild, itchy, 12/27/19) oxycodone (Verified Allergy, Mild, itchy, 12/27/19) hydrocodone (Verified Adverse Reaction, Intermediate, chest pain, 12/27/19) acetaminophen (Verified Adverse Reaction, Mild, NAUSEA, 12/27/19) Veronica Lee MD Dec 24, 2020 18:43
[2020-12-24 20:00] VITALS: BP 152/83
[2020-12-24] MEDS: PHENYTOIN ER 100 MG CAP PO SCH (20:35)
[2020-12-24] MEDS: ARIPiprazole 2 MG TAB PO SCH (20:36)
[2020-12-25] VITALS: BP 135/76
[2020-12-25 04:00] VITALS: BP 127/72
[2020-12-25 06:35] LABS: BASO % 0.5 % (0.0-1.0); EOS # 0.3 10^3/uL (0.0-0.5); EOS % 3.5 % (0.0-3.0); HEMATOCRIT 30.9 % (36.0-47.0); HEMOGLOBIN 9.6 g/dl (12.0-15.5); LYMPH # 0.4 10^3/uL (1.5-5.0); LYMPH % 5.2 % (24.0-44.0); MEAN CORPUSCULAR HEMOGLOBIN 27.4 pg (27.0-33.0); MEAN CORPUSCULAR HGB CONC 31.1 g/dl (32.0-36.5); MEAN CORPUSCULAR VOLUME 88.3 fl (80.0-96.0); MONO # 0.6 10^3/uL (0.0-0.8); MONO % 6.8 % (0.0-5.0); NEUTROPHILS % 82.2 % (36.0-66.0); PLATELET COUNT, AUTOMATED 178 10^3/uL (150-450); WHITE BLOOD COUNT 8.5 10^3/uL (4.0-10.0)
[2020-12-25] MEDS: LevoFLOXacin 250 MG TABLET PO SCH (06:35)
[2020-12-25] MEDS: LEVOTHYROXINE 50MCG TABLET (0.05MG) PO SCH (06:35)
[2020-12-25 06:57] LABS: CALCIUM LEVEL 9.1 MG/DL (8.5-10.1); CREATININE FOR GFR 1.61 MG/DL (0.55-1.30); GLOMERULAR FILTRATION RATE 35.6 (>51); POTASSIUM SERUM 3.5 MEQ/L (3.5-5.1)
[2020-12-25 07:49] VITALS: BP 146/93
[2020-12-25] MEDS: PREGABALIN 100 MG CAP (LYRICA) PO SCH ×2 (09:52→22:04)
[2020-12-25] MEDS: D5W/0.45% SODIUM CHLORIDE 1,000 ML IV SCH ×2 (09:52→22:16)
[2020-12-25] MEDS: levETIRAcetam 250MG TABLET (KEPPRA) PO SCH ×2 (09:53→22:09)
[2020-12-25] MEDS: AMANTADINE 100MG TABLET PO SCH ×2 (09:53→22:05)
[2020-12-25] MEDS: ENOXAPARIN 30MG/0.3ML SYRINGE (J1650 PER 10MG) SC SCH (09:53)
[2020-12-25] MEDS: ACYCLOVIR 200 MG CAPSULE PO SCH ×2 (09:53→21:53)
[2020-12-25] MEDS: DULoxetine 30 MG CAP (CYMBALTA) PO SCH ×2 (09:53→22:06)
[2020-12-25 12:00] VITALS: BP 132/84
--- NOTE | 2020-12-25 14:26 | IPNPDOC ---
Date Seen The patient was seen on 12/25/20. Progress Note SUBJECTIVE: Still very weak on exam, PT following. IVFs started gently due to Cr not at normal range yet. AAOx2. She denies chest pain, shortness of breath, n/v/d. OBJECTIVE: PHYSICAL EXAM: VITAL SIGNS: Please see below GENERAL APPEARANCE: She is alert. She answers questions but is oriented x2 LUNGS: CTAB, no W/R/R CVS: S1S2, no M/R/G ABDOMEN: obese, Soft and nontender, BS + in 4 quad EXTREMITIES: No peripheral edema. Neuro: CN 2-12 intact, no focal deficits, nonsustained clonus b/l. Generalized weakness 3-4/5 in all ext, no sensory or motor deficits. No horizontal or vertical nystagmus, no hyperreflexia in any extremity LABORATORY DATA: Please see below MICROBIOLOGY: UCx: PROVIDENCIA RETTGERI Bcx x 2 sets: NG COVID/resp panel: neg IMAGING: CT head: 1. No acute intracranial pathology. Chronic findings. A/P: Encephalopathy likely multifactorial 2/2 to polypharmacy, as well as withdrawal from some of her typical medications and UTI -Per neuro, has had encephalopathy in the past, required EEGs to r/o seizures -regularly follows with neurologist in [place], not established here locally -Mental status slightly improved today but is easily distracted off topic. -Per neuro, may take some time to return to baseline with current UTI -Unable to do MRI with and without gadolinium due to TERRELL. When TERRELL resolved and if active lesions seen, can add steroids -For now c/w treatment below for UTI. If 2/2 to UTI, treatment should help improve current state -PT/OT Providencia UTI -UCx above -Changed from meropenem (Day 4) to PO levofloxacin (Day 2) on 12/24/20 Secondary progressive multiple sclerosis -Per neuro, possibly pseudo-exacerbation 2/2 to UTI -Do not treat with steroids unless seen to have active lesion -Consider MRI with gadolinium when Cr improves futher. -C/w PT/OT for now treatment with abx above Acute kidney injury on chronic kidney disease -Cr further improved -IVFs restarted D5W1/2 NSS at gentle rate, encourage PO intake. -F/u daily labs, avoid nephrotoxic meds Hypernatremia, acute likley 2/2 to IVFs -Watch with D5W1/2 NSS -Na 148, f/u AM labs DVT px -Lovenox DISPOSITION: C/w PT/OT, will likely require rehab. VS, I&O, 24H, Fishbone Vital Signs/I&O Vital Signs Date Time Temp Pulse Resp B/P (MAP) Pulse Ox O2 Delivery O2 Flow Rate FiO2 12/25/20 12:00 98.3 106 20 132/84 (100) 90 Room Air 12/23/20 16:00 1.0 I&O- Last 24 Hours up to 6 AM 12/25/20 06:00 Intake Total 570 ml Output Total 600 ml Balance -30 ml Laboratory Data 24H LABS Laboratory Tests 2 12/25/20 06:16: Immature Granulocyte % (Auto) 1.8, Neutrophils (%) (Auto) 82.2H, Lymphocytes (%) (Auto) 5.2L, Monocytes (%) (Auto) 6.8H, Eosinophils (%) (Auto) 3.5H, Basophils (%) (Auto) 0.5, Neutrophils # (Auto) 7.0, Lymphocytes # (Auto) 0.4L, Monocytes # (Auto) 0.6, Eosinophils # (Auto) 0.3, Basophils # (Auto) 0.0, Nucleated Red Blood Cells % (auto) 0.0, Anion Gap 8, Glomerular Filtration Rate 35.6L, Calcium Level 9.1 CBC/BMP Laboratory Tests 12/25/20 06:16 Microbiology Microbiology 12/18/20 Respiratory Virus Panel (PCR) (VANDANA) - Final, Complete 12/18/20 Blood Culture - Final, Complete NO GROWTH AFTER 5 DAYS 12/18/20 Urine Culture - Final, Complete Providencia Rettgeri 12/18/20 Blood Culture - Final, Complete NO GROWTH AFTER 5 DAYS Current Medications Current Medications Medications (Trade) Dose Ordered Sig/Felix Route PRN Reason Start Time Stop Time Status Last Admin Dose Admin Acetaminophen (Tylenol Tab) 500 mg Q4HP PRN PO PAIN OR FEVER 12/22/20 11:30 12/22/20 11:35 DC Acetaminophen (Tylenol Tab) 650 mg Q4HP PRN PO PAIN OR FEVER 12/22/20 11:30 12/23/20 05:27 Acyclovir (Zovirax) 400 mg BID PO 12/22/20 16:00 12/25/20 09:53 Albuterol Sulfate (Proventil, Ventolin Hfa) 2 puff Q4HP PRN INH SHORTNESS OF BREATH 12/18/20 23:00 Amantadine HCl (Symmetrel) 100 mg BID PO 12/22/20 16:00 12/25/20 09:53 Aripiprazole (AbiLIFY) 2 mg QHS PO 12/22/20 16:00 12/24/20 20:36 Dextrose/Sodium Chloride 1,000 ml @ 85 mls/hr [id number] IV 12/25/20 08:00 12/25/20 09:52 Dextrose/Sodium Chloride 1,000 ml @ 100 mls/hr Q10H IV 12/18/20 18:30 12/20/20 17:00 DC 12/20/20 16:32 Duloxetine HCl (Cymbalta) 60 mg BID PO 12/21/20 11:00 12/25/20 09:53 Enoxaparin Sodium (Lovenox) 30 mg DAILY SC 12/19/20 09:00 12/25/20 09:53 Home Med (Med Rec Complete!) ASDIRECTED XX 12/18/20 19:00 12/18/20 18:57 DC Lactated Ringer's 1,000 ml @ 100 mls/hr Q10H IV 12/22/20 11:00 12/22/20 20:59 DC 12/22/20 11:29 Levetiracetam (Keppra) 500 mg BID PO 12/21/20 11:00 12/25/20 09:53 Levetiracetam 500 mg/Dextrose 105 ml @ 420 mls/hr Q12H IV 12/18/20 23:00 12/21/20 10:52 DC 12/20/20 22:55 Levofloxacin (Levaquin) 250 mg DAILY@06 PO 12/25/20 06:00 12/25/20 06:35 Levothyroxine Sodium (Synthroid) 25 mcg DAILY IV 12/19/20 09:00 12/21/20 16:27 DC 12/21/20 09:07 Levothyroxine Sodium (Synthroid) 50 mcg DAILY@06 PO 12/22/20 06:00 12/25/20 06:35 Meropenem 1 gm/IV Miscellaneous Supplies 50 ml @ 100 mls/hr Q12H IV 12/21/20 17:00 12/24/20 07:52 DC 12/24/20 04:54 Naloxone HCl (Narcan) 0.1 mg Q5MP PRN IV RESP. RATE < 10 12/19/20 04:30 Naloxone HCl (Narcan) 0.4 mg STAT STAT IV 12/18/20 16:56 12/18/20 16:57 DC 12/18/20 16:56 Naloxone HCl (Narcan) 4 mg STAT STAT IV 12/18/20 17:38 12/18/20 17:39 Cancel Naloxone HCl (Narcan) 4 mg STAT STAT IV 12/18/20 17:56 12/18/20 17:57 DC 12/18/20 17:59 Phenytoin (Dilantin) 400 mg QHS PO 12/21/20 21:00 12/24/20 20:35 Pregabalin (Lyrica) 300 mg BID PO 12/22/20 16:00 12/25/20 09:52 Sodium Chloride 1,000 ml @ 150 mls/hr Q6H40M IV 12/18/20 17:50 12/18/20 18:18 DC 12/18/20 17:53 Allergies Coded Allergies: Cephalosporins (Verified Allergy, Intermediate, rash, 12/27/19) Sulfa (Sulfonamide Antibiotics) (Verified Allergy, Mild, itchy, 12/27/19) oxycodone (Verified Allergy, Mild, itchy, 12/27/19) hydrocodone (Verified Adverse Reaction, Intermediate, chest pain, 12/27/19) acetaminophen (Verified Adverse Reaction, Mild, NAUSEA, 12/27/19) Veronica Lee MD Dec 25, 2020 14:26
[2020-12-25 15:56] VITALS: BP 131/71
[2020-12-25] MEDS ORDERED: ACETAMINOPHEN 650 MG SUPP PR PRN (16:00)
[2020-12-25] MEDS: MEROPENEM INJ 500 MG in IV 1 EA IV SCH (18:12)
[2020-12-25 20:00] VITALS: BP 128/79
[2020-12-25] MEDS: PHENYTOIN ER 100 MG CAP PO SCH (22:00)
[2020-12-25] MEDS: ARIPiprazole 2 MG TAB PO SCH (22:11)
[2020-12-26] VITALS: BP 151/84
[2020-12-26] MEDS: MEROPENEM INJ 500 MG in IV 1 EA IV SCH ×3 (01:55→18:30)
[2020-12-26 04:00] VITALS: BP 138/80
[2020-12-26 05:37] LABS: HEMATOCRIT 31.4 % (36.0-47.0); HEMOGLOBIN 9.7 g/dl (12.0-15.5); MEAN CORPUSCULAR HEMOGLOBIN 27.2 pg (27.0-33.0); MEAN CORPUSCULAR HGB CONC 30.9 g/dl (32.0-36.5); PLATELET COUNT, AUTOMATED 180 10^3/uL (150-450); RED BLOOD COUNT 3.57 10^6/uL (4.00-5.40); WHITE BLOOD COUNT 7.9 10^3/uL (4.0-10.0)
[2020-12-26 06:05] LABS: ALBUMIN 3.1 GM/DL (3.2-5.2); BILIRUBIN,TOTAL 0.4 MG/DL (0.2-1.0); CALCIUM LEVEL 8.9 MG/DL (8.5-10.1); CREATININE FOR GFR 1.52 MG/DL (0.55-1.30); GLOMERULAR FILTRATION RATE 38.1 (>51); POTASSIUM SERUM 3.2 MEQ/L (3.5-5.1); TOTAL PROTEIN 6.8 GM/DL (6.4-8.2)
[2020-12-26] MEDS: LevoFLOXacin 250 MG TABLET PO SCH (06:27)
[2020-12-26] MEDS: LEVOTHYROXINE 50MCG TABLET (0.05MG) PO SCH (06:27)
[2020-12-26] MEDS: ACETAMINOPHEN TAB 650MG DOSE (2X325MG) PO PRN (06:29)
[2020-12-26 08:00] VITALS: BP 128/75
--- NOTE | 2020-12-26 08:20 | REP ---
INDICATION: crackles. COMPARISON: 12/18/2020 TECHNIQUE: Portable AP view of the chest FINDINGS: Examination is limited by poor inspiratory effort. [id number] again identified with tip in the SVC/right atrium. The mediastinum and cardiac silhouette are stable and within normal limits for portable technique. The lung allison are clear without acute consolidation, effusion, or pneumothorax. Skeletal structures are intact. IMPRESSION: No acute cardiopulmonary process appreciated. <Electronically signed by Efe Tovar > 12/26/20 0816
[2020-12-26] MEDS ORDERED: fentaNYL 25 MCG/HR PATCH TOP SCH (09:00)
[2020-12-26] MEDS: ENOXAPARIN 30MG/0.3ML SYRINGE (J1650 PER 10MG) SC SCH (09:55)
[2020-12-26] MEDS: AMANTADINE 100MG TABLET PO SCH ×2 (09:56→21:47)
[2020-12-26] MEDS: ACYCLOVIR 200 MG CAPSULE PO SCH ×2 (09:56→22:00)
[2020-12-26] MEDS: DULoxetine 30 MG CAP (CYMBALTA) PO SCH ×2 (09:56→21:49)
[2020-12-26] MEDS: levETIRAcetam 250MG TABLET (KEPPRA) PO SCH ×2 (09:57→21:58)
[2020-12-26] MEDS: PREGABALIN 100 MG CAP (LYRICA) PO SCH ×2 (09:57→21:52)
[2020-12-26] MEDS ORDERED: MIRALAX *UNIT DOSE* 17GM PACKET PO PRN (10:45)
[2020-12-26] MEDS: D5W/0.45% SODIUM CHLORIDE 1,000 ML IV SCH ×2 (10:45→23:06)
[2020-12-26] MEDS ORDERED: LACTULOSE 20 GM/30 ML SYRUP UD PO ONE (11:00)
[2020-12-26] MEDS ORDERED: POTASSIUM CHLORIDE 10 MEQ SR TABLET PO ONE (11:00)
[2020-12-26 11:31] LABS: INR 1.04; PROTHROMBIN TIME 13.8 SECONDS (12.5-14.3)
[2020-12-26 11:32] LABS: PARTIAL THROMBOPLASTIN TIME 26.5 SECONDS (24.2-38.5)
[2020-12-26 12:00] VITALS: BP 133/85
[2020-12-26] MEDS: DOCUSATE SODIUM 100MG CAPSULE PO SCH ×2 (13:09→21:00)
[2020-12-26] MEDS: ATORVASTATIN 20 MG TAB PO SCH (13:09)
[2020-12-26] MEDS: PANTOPRAZOLE 40MG TAB (PROTONIX) PO SCH ×2 (13:10→21:00)
[2020-12-26] MEDS: BACLOFEN 10 MG TAB PO SCH ×2 (15:00→21:45)
[2020-12-26 15:42] VITALS: BP 134/88
--- NOTE | 2020-12-26 17:15 | IPNPDOC ---
Date Seen The patient was seen on 12/26/20. Progress Note SUBJECTIVE: Improved strength in all extremities, more alert and cooperative on exam, although still lethargic. Discussed case with Dr. Lobato. Restarted other home meds. Patient denies chest pain, n/v/d, fevers, chills. PHYSICAL EXAM: VITAL SIGNS: Please see below GENERAL APPEARANCE: Lethargic in bed still but more awake, cooperative, slow to respond at times. LUNGS: CTAB, no W/R/R CVS: S1S2, no M/R/G ABDOMEN: obese, Soft, slightly distended, BS + in 4 quad EXTREMITIES: No peripheral edema. Neuro: CN 2-12 intact, no focal deficits, nonsustained clonus b/l. Generalized weakness improved today, 3-4/5 in all ext, no sensory or motor deficits. No horizontal or vertical nystagmus, no hyperreflexia in any extremity LABORATORY DATA: Please see below MICROBIOLOGY: Repeat REsp panel 12/25/20: neg Repeat BCx pending from 12/25/20 Repeat UCx 12/25/20: NG UCx from admission: PROVIDENCIA RETTGERI Bcx x 2 sets from admission: NG COVID/resp panel: neg IMAGING: F/u MRI brain with contrast (1/2 dose due to GFR) CT head: 1. No acute intracranial pathology. Chronic findings. A/P: Encephalopathy likely multifactorial 2/2 to UTI, poss other infection unknown to us at this time. Previously believed to be polypharmacy.- Slowly improving -Fevers persist daily, none since this AM. Improved since addition of IV meropenem back to regimen -Per neuro (Dr. Thomson, [place]) has had encephalopathy in the past, required EEGs to r/o seizures -Per neuro, may take some time to return to baseline with current UTI, infection -F/u MRI with and without gadolinium (1/2 dose). If active lesions seen, can add steroids for flare -For now c/w treatment below for UTI, w/u of other infections. -PT/OT Fevers, r/o other infection not identified -Afebrile on admission, no documented fevers at home prior -Despite appropriate abx therapy, spiked fevers -Discussed with , hardware in left wrist and power port in chest that is not regularly used -Remains lethargic and discussed with infectious disease (Dr. Lobato) -BCx NG thus far, repeat UCx NG after being on abx. 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 -F/u daily labs, avoid nephrotoxic meds Secondary progressive multiple sclerosis -Per neuro, possibly pseudo-exacerbation 2/2 to UTI -Do not treat with steroids unless seen to have active lesion -MRI with gadolinium today -C/w PT/OT for now treatment with abx above Hx of torticollis -Restarted home baclofen -Stable Chronic pain syndrome -Restarted fentanyl patch Q72 hrs DVT px -Lovenox Resolved issues: Hypernatremia, acute DISPOSITION: Per and ID who knows patient well, far from baseline. C/w workup above, ID to see 12/27/20. PT/OT. VS, I&O, 24H, [place] Vital Signs/I&O Vital Signs Date Time Temp Pulse Resp B/P (MAP) Pulse Ox O2 Delivery O2 Flow Rate FiO2 12/26/20 15:42 98.0 96 20 134/88 (103) 92 Room Air 12/23/20 16:00 1.0 I&O- Last 24 Hours up to 6 AM 12/26/20 06:00 Intake Total 1220 ml Output Total 1050 ml Balance 170 ml Laboratory Data 24H LABS Laboratory Tests 2 12/26/20 05:15: Nucleated Red Blood Cells % (auto) 0.0, Anion Gap 7L, Glomerular Filtration Rate 38.1L, Calcium Level 8.9, Total Bilirubin 0.4, Aspartate Amino Transf (AST/SGOT) 22, Alanine Aminotransferase (ALT/SGPT) 26, Alkaline Phosphatase 259H, Total Protein 6.8, Albumin 3.1L, Albumin/Globulin Ratio 0.8L 12/26/20 08:00: Coronavirus (COVID-19)(PCR) NEGATIVE 12/26/20 11:04: Prothrombin Time 13.8, Prothromb Time International Ratio 1.04, Activated Partial Thromboplast Time 26.5, Ammonia 21 CBC/BMP Laboratory Tests 12/26/20 05:15 Microbiology Microbiology 12/25/20 Blood Culture, Received Pending 12/25/20 Urine Culture - Final, Complete 12/25/20 Blood Culture - Preliminary, Resulted No growth after 24 hours . All specim... 12/18/20 Respiratory Virus Panel (PCR) (VANDANA) - Final, Complete 12/18/20 Blood Culture - Final, Complete NO GROWTH AFTER 5 DAYS 12/18/20 Urine Culture - Final, Complete Providencia Rettgeri 12/18/20 Blood Culture - Final, Complete NO GROWTH AFTER 5 DAYS Current Medications Current Medications Medications (Trade) Dose Ordered Sig/Felix Route PRN Reason Start Time Stop Time Status Last Admin Dose Admin Acetaminophen (Tylenol Suppository) 650 mg Q4HP PRN [place] PAIN / FEVER 12/25/20 16:00 12/25/20 16:13 Acetaminophen (Tylenol Tab) 500 mg Q4HP PRN PO PAIN OR FEVER 12/22/20 11:30 12/22/20 11:35 DC Acetaminophen (Tylenol Tab) 650 mg Q4HP PRN PO PAIN OR FEVER 12/22/20 11:30 12/26/20 06:29 Acyclovir (Zovirax) 400 mg BID PO 12/22/20 16:00 12/26/20 09:56 Albuterol Sulfate (Proventil, Ventolin Hfa) 2 puff Q4HP PRN INH SHORTNESS OF BREATH 12/18/20 23:00 Amantadine HCl (Symmetrel) 100 mg BID PO 12/22/20 16:00 12/26/20 09:56 Aripiprazole (AbiLIFY) 2 mg QHS PO 12/22/20 16:00 12/25/20 22:11 Aspirin (Ecotrin) 81 mg QHS PO 12/26/20 21:00 Atorvastatin Calcium (Lipitor) 40 mg DAILY PO 12/26/20 09:00 12/26/20 13:09 Baclofen (Lioresal) 40 mg BID PO 12/26/20 09:00 Dextrose/Sodium Chloride 1,000 ml @ 85 mls/hr [id number] IV 12/25/20 08:00 12/26/20 10:45 Dextrose/Sodium Chloride 1,000 ml @ 100 mls/hr Q10H IV 12/18/20 18:30 12/20/20 17:00 DC 12/20/20 16:32 Docusate Sodium (Colace) 100 mg BID PO 12/26/20 09:00 12/26/20 13:09 Duloxetine HCl (Cymbalta) 60 mg BID PO 12/21/20 11:00 12/26/20 09:56 Enoxaparin Sodium (Lovenox) 30 mg DAILY SC 12/19/20 09:00 12/26/20 09:55 Fentanyl (Duragesic) 25 mcg Q3D TOP 12/26/20 09:00 12/26/20 13:08 Fluticasone Propionate (Flovent Hfa 110 Mcg) 2 puff RBID PRN INH SOB/WHEEZING 12/26/20 11:00 Home Med (Med Rec Complete!) ASDIRECTED XX 12/18/20 19:00 12/18/20 18:57 DC Lactated Ringer's 1,000 ml @ 100 mls/hr Q10H IV 12/22/20 11:00 12/22/20 20:59 DC 12/22/20 11:29 Levetiracetam (Keppra) 500 mg BID PO 12/21/20 11:00 12/26/20 09:57 Levetiracetam 500 mg/Dextrose 105 ml @ 420 mls/hr Q12H IV 12/18/20 23:00 12/21/20 10:52 DC 12/20/20 22:55 Levofloxacin (Levaquin) 250 mg DAILY@06 PO 12/25/20 06:00 12/26/20 06:27 Levothyroxine Sodium (Synthroid) 25 mcg DAILY IV 12/19/20 09:00 12/21/20 16:27 DC 12/21/20 09:07 Levothyroxine Sodium (Synthroid) 50 mcg DAILY@06 PO 12/22/20 06:00 12/26/20 06:27 Magnesium Oxide (Mag-Ox) 400 mg QHS PO 12/26/20 21:00 Meropenem 1 gm/IV Miscellaneous Supplies 50 ml @ 100 mls/hr Q12H IV 12/21/20 17:00 12/24/20 07:52 DC 12/24/20 04:54 Meropenem 500 mg/ IV Miscellaneous Supplies 50 ml @ 100 mls/hr Q8H IV 12/25/20 17:00 12/26/20 09:57 Naloxone HCl (Narcan) 0.1 mg Q5MP PRN IV RESP. RATE < 10 12/19/20 04:30 Naloxone HCl (Narcan) 0.4 mg STAT STAT IV 12/18/20 16:56 12/18/20 16:57 DC 12/18/20 16:56 Naloxone HCl (Narcan) 4 mg STAT STAT IV 12/18/20 17:38 12/18/20 17:39 Cancel Naloxone HCl (Narcan) 4 mg STAT STAT IV 12/18/20 17:56 12/18/20 17:57 DC 12/18/20 17:59 Non-Formulary Medication ( See Comment Field Below ) SEE COMMENTS SECTION ASDIRECTED XX 12/26/20 11:15 Pantoprazole Sodium (Protonix) 40 mg BID PO 12/26/20 09:00 12/26/20 13:10 Phenytoin (Dilantin) 400 mg QHS PO 12/21/20 21:00 12/25/20 22:00 Polyethylene Glycol (Miralax) 1 pkt DAILYPRN PRN PO CONSTIPATION 12/26/20 10:45 Potassium Chloride (Micro-K Extencaps) 10 meq DAILY PO 12/27/20 09:00 Pregabalin (Lyrica) 300 mg BID PO 12/22/20 16:00 12/26/20 09:57 Senna (Senokot) 2 tab QHS PO 12/26/20 21:00 Sodium Chloride 1,000 ml @ 150 mls/hr Q6H40M IV 12/18/20 17:50 12/18/20 18:18 DC 12/18/20 17:53 Allergies Coded Allergies: Cephalosporins (Verified Allergy, Intermediate, rash, 12/27/19) Sulfa (Sulfonamide Antibiotics) (Verified Allergy, Mild, itchy, 12/27/19) oxycodone (Verified Allergy, Mild, itchy, 12/27/19) hydrocodone (Verified Adverse Reaction, Intermediate, chest pain, 12/27/19) acetaminophen (Verified Adverse Reaction, Mild, NAUSEA, 12/27/19) Veronica Lee MD Dec 26, 2020 17:15
[2020-12-26 20:00] VITALS: BP 144/79
[2020-12-26] MEDS: ARIPiprazole 2 MG TAB PO SCH (21:00)
[2020-12-26] MEDS: SENNA 8.6 MG TAB (SENOKOT) PO SCH (21:00)
[2020-12-26] MEDS: ASPIRIN 81 MG ENTERIC TAB PO SCH (21:48)
[2020-12-26] MEDS: PHENYTOIN ER 100 MG CAP PO SCH (21:55)
[2020-12-26] MEDS: MAGNESIUM OXIDE 400MG TAB (MAG-OX) PO SCH (22:03)
[2020-12-27] VITALS (10 sets, daily range): BP systolic 122–156; BP diastolic 70–90; O2SAT 89–97
[2020-12-27] MEDS: ACETAMINOPHEN TAB 650MG DOSE (2X325MG) PO PRN (00:58)
[2020-12-27] MEDS: MEROPENEM INJ 500 MG in IV 1 EA IV SCH ×3 (01:00→16:12)
[2020-12-27] MEDS: LevoFLOXacin 250 MG TABLET PO SCH (04:53)
[2020-12-27] MEDS: LEVOTHYROXINE 50MCG TABLET (0.05MG) PO SCH (04:53)
[2020-12-27 04:55] LABS: HEMATOCRIT 33.6 % (36.0-47.0); HEMOGLOBIN 10.2 g/dl (12.0-15.5); MEAN CORPUSCULAR HEMOGLOBIN 26.9 pg (27.0-33.0); MEAN CORPUSCULAR HGB CONC 30.4 g/dl (32.0-36.5); MEAN CORPUSCULAR VOLUME 88.7 fl (80.0-96.0); PLATELET COUNT, AUTOMATED 212 10^3/uL (150-450); RED BLOOD COUNT 3.79 10^6/uL (4.00-5.40); WHITE BLOOD COUNT 10.8 10^3/uL (4.0-10.0)
[2020-12-27 05:25] LABS: ALBUMIN 3.2 GM/DL (3.2-5.2); BILIRUBIN,TOTAL 0.2 MG/DL (0.2-1.0); CALCIUM LEVEL 9.1 MG/DL (8.5-10.1); CREATININE FOR GFR 1.52 MG/DL (0.55-1.30); GLOMERULAR FILTRATION RATE 38.1 (>51); POTASSIUM SERUM 3.6 MEQ/L (3.5-5.1); TOTAL PROTEIN 6.4 GM/DL (6.4-8.2)
[2020-12-27] MEDS: D5W/0.45% SODIUM CHLORIDE 1,000 ML IV SCH ×2 (07:04→14:04)
[2020-12-27] MEDS: POTASSIUM CHLORIDE 10 MEQ SR TABLET PO SCH (08:58)
[2020-12-27] MEDS: AMANTADINE 100MG TABLET PO SCH ×2 (08:58→22:32)
[2020-12-27] MEDS: ACYCLOVIR 200 MG CAPSULE PO SCH ×2 (08:58→22:32)
[2020-12-27] MEDS: PREGABALIN 100 MG CAP (LYRICA) PO SCH ×2 (08:58→22:33)
[2020-12-27] MEDS: ENOXAPARIN 30MG/0.3ML SYRINGE (J1650 PER 10MG) SC SCH ×2 (08:59→09:00)
[2020-12-27] MEDS: ATORVASTATIN 20 MG TAB PO SCH (08:59)
[2020-12-27] MEDS: DULoxetine 30 MG CAP (CYMBALTA) PO SCH ×2 (08:59→22:34)
[2020-12-27] MEDS: BACLOFEN 10 MG TAB PO SCH ×2 (08:59→22:32)
[2020-12-27] MEDS: DOCUSATE SODIUM 100MG CAPSULE PO SCH ×2 (08:59→22:31)
[2020-12-27] MEDS: levETIRAcetam 250MG TABLET (KEPPRA) PO SCH ×2 (08:59→22:32)
[2020-12-27] MEDS: PANTOPRAZOLE 40MG TAB (PROTONIX) PO SCH ×2 (08:59→22:31)
[2020-12-27] MEDS: SODIUM CHLORIDE 0.9% INJ 10 ML SYR IV SCH (09:00)
[2020-12-27] MEDS: ONDANSETRON 4MG/2ML VIAL IV SCH ×3 (09:58→22:30)
[2020-12-27] MEDS ORDERED: ISOVUE-M 300 61% 15ML VIAL As Ordered ONE (10:13)
[2020-12-27 11:47] LABS: APPEARANCE, CSF CLEAR (CLEAR); COLOR, CSF COLORLESS (COLORLESS); CSF TUBE# CELL CNT TUBE 1
[2020-12-27 12:17] LABS: CSF TUBE# GLU TUBE 2; CSF TUBE# TP TUBE 2; GLUCOSE CSF 58 MG/DL (40-75); TOTAL PROTEIN,CSF 112 MG/DL (15-45)
--- NOTE | 2020-12-27 13:21 | REP ---
PROCEDURE NAME: FLUORO GUID FOR NEEDLE PLACEMT SEDATION: None CLINICAL INFORMATION: LUMAR PUNCTURE R/O VIRAL INFECTION. PHYSICIAN: Joan Glynn PROCEDURE DESCRIPTION: The procedure was performed by LESTER Sanchez, under the direct supervision of Dr. Villa. The risks and benefits of the procedure were explained to the patient and an informed consent was obtained both verbally and written. Directly prior to the start of the procedure a formal time-out was completed in the procedure room. The L5-S1 interspace was localized using fluoroscopic guidance. The skin was prepped and draped in a sterile fashion. Five 1 % lidocaine 10 milligrams/milliliter was used as a local anesthetic. Using fluoroscopic guidance a 22 gauge spinal needle was inserted and advanced without significant difficulty in to the cerebral spinal space at the L5-S1 interspinous level. Approximately 12 mL of clear freely flowing cerebral spinal fluid was retrieved and sent to the laboratory for further analysis. 0.4 minutes of fluoroscopy time was utilized for this procedure. Some fluoroscopic images are performed with last image hold technology. These images require no additional radiation. The patient tolerated the procedure well and there were no immediate complications. After the appropriate amount of monitored chondral assist the patient was discharged back to the unit. ESTIMATED BLOOD LOSS: Less than 1 mL COMPLICATIONS: None CONCLUSION: Lumbar puncture and CSF retrieval under fluoroscopic guidance. <Electronically signed by Joan Glynn > 12/27/20 1313 <Electronically signed by Chan Villa > 12/27/20 1315
[2020-12-27] MEDS: hydrOXYzine 50 MG TAB PO SCH ×2 (14:04→22:33)
--- NOTE | 2020-12-27 14:11 | IPNPDOC ---
Date Seen The patient was seen on 12/27/20. Progress Note SUBJECTIVE: Much improved strength in all extremities, more alert and cooperative on exam this AM. MRI brain with contrast and LP to be done today.Reducing dose of fentanyl patch. ID consulted to see patient. Patient denies chest pain, n/v/d, fevers, chills. PHYSICAL EXAM: VITAL SIGNS: Please see below GENERAL APPEARANCE: Sitting up in bedside chair, much more conversant, cooperative, more alert. slow to respond still at times. LUNGS: CTAB, no W/R/R CVS: S1S2, no M/R/G ABDOMEN: obese, Soft, slightly distended, BS + in 4 quad EXTREMITIES: No peripheral edema. Neuro: CN 2-12 intact, no focal deficits, nonsustained clonus b/l. Generalized weakness 4/5 in all ext-improved. No sensory or motor deficits. No horizontal or vertical nystagmus, no hyperreflexia in any extremity LABORATORY DATA: Please see below MICROBIOLOGY: F/u LP results Blood cultures x 2 sets from Power port 12/26/20: pending Repeat BCx 12/25/20: NG Bcx x 2 sets from admission: NG Repeat UCx 12/25/20: NG UCx from admission: PROVIDENCIA RETTGERI Repeat Resp panel 12/25/20: neg Resp panel from admission: neg IMAGING: F/u MRI brain with contrast (1/2 dose due to GFR) CT head: 1. No acute intracranial pathology. Chronic findings. A/P: Encephalopathy likely multifactorial 2/2 to UTI, poss other infection unknown to us at this time. Previously believed to be polypharmacy.- Slowly improving -Fever at 12 AM overnight at 100.5. Has been on IV meropenem -Per neuro has had encephalopathy in the past, required EEGs to r/o seizures -Per neuro, may take some time to return to baseline with current UTI, infection -F/u MRI with and without gadolinium (1/2 dose). If active lesions seen, can add steroids for flare -For now c/w treatment below for UTI, w/u of other infections (see micro above) -PT/OT Fevers, r/o other infection not identified -Fever of 100.5 F overnight, appears more alert, awake this AM -Despite appropriate abx therapy continues to spike fevers -Discussed with , hardware in left wrist and power port in chest that is not regularly used -BCx taken from power port-pending -BCx NG thus far, repeat UCx NG after being on abx. -Getting LP today to r/o viral/bacterial [employer] infection, f/u results -If continues to spike fevers and all w/u above neg, have not done CT with contrast of chest and abd/pelvis or echocardiogram (no murmur, other s/s of endocarditis) -C/w IVFs, meropenem IV -ID consulted to see 12/27/20 Providencia UTI, hx of recurrent UTI -UCx above -Currently on IV meropenem Constipation, improving -No BM since 12/22/20 -Added bowel regimen, adding daily lactulose Acute kidney injury on chronic kidney disease -Cr 1.52, similar to 12/26/20 -C/w D5W1/2 NSS at gentle rate, encourage PO intake. -F/u daily labs, avoid nephrotoxic meds Secondary progressive multiple sclerosis -Per neuro, possibly pseudo-exacerbation 2/2 to UTI -Do not treat with steroids unless seen to have active lesion -MRI with gadolinium today -C/w PT/OT for now treatment with abx above Hx of torticollis -C/w home baclofen -Stable Chronic pain syndrome -Decreased dose of fentanyl patch to 12/5 mcg Q72H -Chronic pain improved DVT px -Lovenox Resolved issues: Hypernatremia, acute DISPOSITION: improving slowly. C/w workup above, ID to see 12/27/20. PT/OT. VS, I&O, 24H, Fishbone Vital Signs/I&O Vital Signs Date Time Temp Pulse Resp B/P (MAP) Pulse Ox O2 Delivery O2 Flow Rate FiO2 12/27/20 12:00 98.7 85 20 122/71 (88) 90 Room Air 12/23/20 16:00 1.0 I&O- Last 24 Hours up to 6 AM 12/27/20 06:00 Intake Total 1550 ml Output Total 800 ml Balance 750 ml Laboratory Data 24H LABS Laboratory Tests 2 12/27/20 04:05: Nucleated Red Blood Cells % (auto) 0.0, Anion Gap 10, Glomerular Filtration Rate 38.1L, Calcium Level 9.1, Total Bilirubin 0.2, Aspartate Amino Transf (AST/SGOT) 23, Alanine Aminotransferase (ALT/SGPT) 27, Alkaline Phosphatase 256H, Total Protein 6.4, Albumin 3.2, Albumin/Globulin Ratio 1.0L 12/27/20 11:16: CSF Appearance CLEAR, CSF Color COLORLESS, CSF WBC (Auto) 1, CSF RBC (Auto) < 2H, CSF Glucose (Tube 1) TUBE 2, CSF Total Protein (Tube 1) TUBE 2, CSF Cell Count Tube # TUBE 1, CSF Polynuclear WBCs (%) , CSF Glucose 58, CSF Total Pro tein 112H CBC/BMP Laboratory Tests 12/27/20 04:05 Microbiology Microbiology 12/27/20 Blood Culture, Received Pending 12/27/20 Gram Stain - Final, Resulted 12/27/20 CSF Culture, Resulted Pending 12/27/20 - Final, Complete 12/27/20 Blood Culture, Received Pending 12/25/20 Blood Culture - Preliminary, Resulted No growth after 24 hours . All specim... 12/25/20 Urine Culture - Final, Complete 12/25/20 Blood Culture - Preliminary, Resulted No growth after 24 hours . All specim... 12/18/20 Respiratory Virus Panel (PCR) (VANDANA) - Final, Complete 12/18/20 Blood Culture - Final, Complete NO GROWTH AFTER 5 DAYS 12/18/20 Urine Culture - Final, Complete Providencia Rettgeri 12/18/20 Blood Culture - Final, Complete NO GROWTH AFTER 5 DAYS Current Medications Current Medications Medications (Trade) Dose Ordered Sig/Felix Route PRN Reason Start Time Stop Time Status Last Admin Dose Admin Acetaminophen (Tylenol Suppository) 650 mg Q4HP PRN AL PAIN / FEVER 12/25/20 16:00 12/25/20 16:13 Acetaminophen (Tylenol Tab) 500 mg Q4HP PRN PO PAIN OR FEVER 12/22/20 11:30 12/22/20 11:35 DC Acetaminophen (Tylenol Tab) 650 mg Q4HP PRN PO PAIN OR FEVER 12/22/20 11:30 12/27/20 00:58 Acyclovir (Zovirax) 400 mg BID PO 12/22/20 16:00 12/27/20 08:58 Albuterol Sulfate (Proventil, Ventolin Hfa) 2 puff Q4HP PRN INH SHORTNESS OF BREATH 12/18/20 23:00 Amantadine HCl (Symmetrel) 100 mg BID PO 12/22/20 16:00 12/27/20 08:58 Aripiprazole (AbiLIFY) 2 mg QHS PO 12/22/20 16:00 12/25/20 22:11 Aspirin (Ecotrin) 81 mg QHS PO 12/26/20 21:00 12/26/20 21:48 Atorvastatin Calcium (Lipitor) 40 mg DAILY PO 12/26/20 09:00 12/27/20 08:59 Baclofen (Lioresal) 40 mg BID PO 12/26/20 09:00 12/27/20 08:59 Dextrose/Sodium Chloride 1,000 ml @ 85 mls/hr [id number] IV 12/25/20 08:00 12/26/20 23:06 Dextrose/Sodium Chloride 1,000 ml @ 100 mls/hr Q10H IV 12/18/20 18:30 12/20/20 17:00 DC 12/20/20 16:32 Docusate Sodium (Colace) 100 mg BID PO 12/26/20 09:00 12/27/20 08:59 Duloxetine HCl (Cymbalta) 60 mg BID PO 12/21/20 11:00 12/27/20 08:59 Enoxaparin Sodium (Lovenox) 30 mg DAILY SC 12/19/20 09:00 12/26/20 09:55 Fentanyl (Duragesic) 25 mcg Q3D TOP 12/26/20 09:00 12/26/20 13:08 Fluticasone Propionate (Flovent Hfa 110 Mcg) 2 puff RBID PRN INH SOB/WHEEZING 12/26/20 11:00 Heparin Sodium (Heparin (Flush)) 500 units ASDIRECTED PRN IV SEE LABEL COMMENTS 12/26/20 19:15 Heparin Sodium (Heparin (Flush)) 500 units DAILY IV 12/27/20 09:00 Home Med (Med Rec Complete!) ASDIRECTED XX 12/18/20 19:00 12/18/20 18:57 DC Hydroxyzine HCl (Atarax) 50 mg BID PO 12/27/20 11:30 Lactated Ringer's 1,000 ml @ 100 mls/hr Q10H IV 12/22/20 11:00 12/22/20 20:59 DC 12/22/20 11:29 Levetiracetam (Keppra) 500 mg BID PO 12/21/20 11:00 12/27/20 08:59 Levetiracetam 500 mg/Dextrose 105 ml @ 420 mls/hr Q12H IV 12/18/20 23:00 12/21/20 10:52 DC 12/20/20 22:55 Levofloxacin (Levaquin) 250 mg DAILY@06 PO 12/25/20 06:00 12/27/20 04:53 Levothyroxine Sodium (Synthroid) 25 mcg DAILY IV 12/19/20 09:00 12/21/20 16:27 DC 12/21/20 09:07 Levothyroxine Sodium (Synthroid) 50 mcg DAILY@06 PO 12/22/20 06:00 12/27/20 04:53 Magnesium Oxide (Mag-Ox) 400 mg QHS PO 12/26/20 21:00 12/26/20 22:03 Meropenem 1 gm/IV Miscellaneous Supplies 50 ml @ 100 mls/hr Q12H IV 12/21/20 17:00 12/24/20 07:52 DC 12/24/20 04:54 Meropenem 500 mg/ IV Miscellaneous Supplies 50 ml @ 100 mls/hr Q8H IV 12/25/20 17:00 12/27/20 09:33 Naloxone HCl (Narcan) 0.1 mg Q5MP PRN IV RESP. RATE < 10 12/19/20 04:30 Naloxone HCl (Narcan) 0.4 mg STAT STAT IV 12/18/20 16:56 12/18/20 16:57 DC 12/18/20 16:56 Naloxone HCl (Narcan) 4 mg STAT STAT IV 12/18/20 17:38 12/18/20 17:39 Cancel Naloxone HCl (Narcan) 4 mg STAT STAT IV 12/18/20 17:56 12/18/20 17:57 DC 12/18/20 17:59 Non-Formulary Medication ( See Comment Field Below ) SEE COMMENTS SECTION ASDIRECTED XX 12/26/20 11:15 Ondansetron HCl (ZOFRAN INJection) 4 mg Q6H IV 12/27/20 10:00 12/27/20 09:58 Pantoprazole Sodium (Protonix) 40 mg BID PO 12/26/20 09:00 12/27/20 08:59 Phenytoin (Dilantin) 400 mg QHS PO 12/21/20 21:00 12/26/20 21:55 Polyethylene Glycol (Miralax) 1 pkt DAILYPRN PRN PO CONSTIPATION 12/26/20 10:45 Potassium Chloride (Micro-K Extencaps) 10 meq DAILY PO 12/27/20 09:00 12/27/20 08:58 Pregabalin (Lyrica) 300 mg BID PO 12/22/20 16:00 12/27/20 08:58 Promethazine HCl (Phenergan) 25 mg Q4H PRN PO NAUSEA OR VOMITING 12/27/20 10:45 Senna (Senokot) 2 tab QHS PO 12/26/20 21:00 Sodium Chloride 1,000 ml @ 150 mls/hr Q6H40M IV 12/18/20 17:50 12/18/20 18:18 DC 12/18/20 17:53 Sodium Chloride (Saline Lock Flush) 10 ml ASDIRECTED PRN IV SEE LABEL COMMENTS 12/26/20 19:15 Sodium Chloride (Saline Lock Flush) 10 ml DAILY IV 12/27/20 09:00 Allergies Coded Allergies: Cephalosporins (Verified Allergy, Intermediate, rash, 12/27/19) Sulfa (Sulfonamide Antibiotics) (Verified Allergy, Mild, itchy, 12/27/19) oxycodone (Verified Allergy, Mild, itchy, 12/27/19) hydrocodone (Verified Adverse Reaction, Intermediate, chest pain, 12/27/19) acetaminophen (Verified Adverse Reaction, Mild, NAUSEA, 12/27/19) Veronica Lee MD Dec 27, 2020 14:11
[2020-12-27] MEDS: FENTANYL REMOVAL DOCUMENTATION MISC XX SCH (16:08)
[2020-12-27] MEDS: LACTULOSE 20 GM/30 ML SYRUP UD PO SCH (16:10)
[2020-12-27] MEDS: fentaNYL 12 MCG/HR PATCH TOP SCH (16:11)
--- NOTE | 2020-12-27 19:10 | REPVR ---
PROCEDURE INFORMATION: Exam: US Retroperitoneal Limited, Kidneys Exam date and time: 12/27/2020 6:45 PM Age: 55 years old Clinical indication: Condition or disease; Other: Hydronephrosis; Prior surgery; Surgery date: 6+ months; Surgery type: Cystectomy, and urostomy; Additional info: Reasses for hydronephrosis TECHNIQUE: Imaging protocol: Real-time ultrasound of the retroperitoneum with image documentation. Examination was focused on the kidneys. COMPARISON: RENAL US 12/19/2020 7:00 AM FINDINGS: Right kidney: The right kidney measures 9.9 x 4.4 by 4.7 cm. Cm. There is moderate to right-sided hydronephrosis. There is cortical thinning in the right kidney with abnormal increase in echotexture. Left kidney: The left kidney is lobulated in contour and increase in echotexture and measures 11.5 x 6.2 by 4.6 cm. There is moderate left-sided hydronephrosis. There is a simple cyst in the upper pole left kidney measuring 1.6 x 1 x 1.2 cm. Liver: The liver is generally increased in echotexture. IMPRESSION: 1. Moderate hydronephrosis bilaterally, right side greater than left without change. 2. Echogenic kidneys with evidence of renal cortical atrophy 3. Echogenic liver suggests underlying infiltrative process such as fatty infiltration or fibrosis Electronically signed by: Toya Allen On 12/27/2020 19:10:17 PM
[2020-12-27] MEDS ORDERED: PROHANCE 279.3MG/ML 15ML VIAL As Ordered ONE (20:27)
[2020-12-27] MEDS: ASPIRIN 81 MG ENTERIC TAB PO SCH (22:31)
[2020-12-27] MEDS: MAGNESIUM OXIDE 400MG TAB (MAG-OX) PO SCH (22:31)
[2020-12-27] MEDS: SENNA 8.6 MG TAB (SENOKOT) PO SCH (22:32)
[2020-12-27] MEDS: ARIPiprazole 2 MG TAB PO SCH (22:33)
[2020-12-27] MEDS: PHENYTOIN ER 100 MG CAP PO SCH (22:34)
--- NOTE | 2020-12-27 22:42 | REPVR ---
PROCEDURE INFORMATION: Exam: MR Head Without and With Contrast Exam date and time: 12/27/2020 8:29 PM Age: 55 years old Clinical indication: Altered mental status/memory loss and other: Look to assess for ms, R/O flair TECHNIQUE: Imaging protocol: MR of the head without and with intravenous contrast. 3D rendering (Not supervised by radiologist): MIP and/or 3D reconstructed images were created by the technologist. Contrast material: PROHANCE; Contrast volume: 10 ml; Contrast route: INTRAVENOUS (IV); COMPARISON: 1. MRI-Brain W/O FOLL BY WITH 2019-06-12 12:15 2. MRI-Brain W/O FOLL BY WITH 2018-11-01 21:11 FINDINGS: Brain: Extensive T2 signal hyperintensity throughout the periventricular and deep white matter, with distribution, size, and number unchanged. No enhancement to suggest active demyelination. No brain parenchymal diffusion restriction to suggest acute ischemia or infarction. No midline shift, mass, fluid collection, or evidence of acute hemorrhage. Mild cerebral volume loss. Cerebral ventricles: Normal. No ventriculomegaly. Bones/joints: Unremarkable. Paranasal sinuses: Normal as visualized. No acute sinusitis. Mastoid air cells: Normal as visualized. No mastoid effusion. Orbital cavity: Unremarkable. Soft tissues: Unremarkable. IMPRESSION: Extensive T2 signal hyperintensity throughout the periventricular and deep white matter, with distribution, size, and number unchanged. No enhancement to suggest active demyelination. Overall, moderate burden of disease. Electronically signed by: Jordon King On 12/27/2020 22:41:47 PM
[2020-12-28] VITALS (16 sets, daily range): BP systolic 104–135; BP diastolic 64–88; O2SAT 94–97
[2020-12-28] MEDS: MEROPENEM INJ 1 GM in IV 1 EA IV SCH ×3 (00:34→16:54)
[2020-12-28] MEDS: FENTANYL REMOVAL DOCUMENTATION MISC XX SCH (04:46)
[2020-12-28] MEDS: ONDANSETRON 4MG/2ML VIAL IV SCH ×4 (04:49→21:22)
[2020-12-28] MEDS: D5W/0.45% SODIUM CHLORIDE 1,000 ML IV SCH ×2 (04:49→15:31)
[2020-12-28 06:11] LABS: HEMATOCRIT 29.8 % (36.0-47.0); HEMOGLOBIN 8.9 g/dl (12.0-15.5); MEAN CORPUSCULAR HEMOGLOBIN 26.6 pg (27.0-33.0); MEAN CORPUSCULAR HGB CONC 29.9 g/dl (32.0-36.5); MEAN CORPUSCULAR VOLUME 89.2 fl (80.0-96.0); PLATELET COUNT, AUTOMATED 164 10^3/uL (150-450); RED BLOOD COUNT 3.34 10^6/uL (4.00-5.40); WHITE BLOOD COUNT 7.2 10^3/uL (4.0-10.0)
[2020-12-28 06:34] LABS: ALBUMIN 2.7 GM/DL (3.2-5.2); BILIRUBIN,TOTAL 0.1 MG/DL (0.2-1.0); C REACTIVE PROTEIN QUANTITATIV 4.66 MG/DL (0.00-0.30); CALCIUM LEVEL 8.3 MG/DL (8.5-10.1); CREATININE FOR GFR 1.34 MG/DL (0.55-1.30); POTASSIUM SERUM 3.5 MEQ/L (3.5-5.1); TOTAL PROTEIN 5.9 GM/DL (6.4-8.2)
[2020-12-28] MEDS: LEVOTHYROXINE 50MCG TABLET (0.05MG) PO SCH (06:34)
[2020-12-28 07:55] LABS: ERYTHROCYTE SEDIMENTATION RATE 56 mm/hr (0-30)
[2020-12-28] MEDS: SODIUM CHLORIDE 0.9% INJ 10 ML SYR IV SCH (09:00)
[2020-12-28] MEDS: ENOXAPARIN 30MG/0.3ML SYRINGE (J1650 PER 10MG) SC SCH (10:12)
[2020-12-28] MEDS: ACYCLOVIR 200 MG CAPSULE PO SCH ×2 (10:12→21:23)
[2020-12-28] MEDS: DOCUSATE SODIUM 100MG CAPSULE PO SCH ×2 (10:12→21:22)
[2020-12-28] MEDS: ATORVASTATIN 20 MG TAB PO SCH (10:13)
[2020-12-28] MEDS: AMANTADINE 100MG TABLET PO SCH ×2 (10:13→21:23)
[2020-12-28] MEDS: PREGABALIN 100 MG CAP (LYRICA) PO SCH ×3 (10:13→21:23)
[2020-12-28] MEDS: POTASSIUM CHLORIDE 10 MEQ SR TABLET PO SCH (10:14)
[2020-12-28] MEDS: hydrOXYzine 50 MG TAB PO SCH ×2 (10:14→21:23)
[2020-12-28] MEDS: DULoxetine 30 MG CAP (CYMBALTA) PO SCH ×2 (10:14→21:24)
[2020-12-28] MEDS: BACLOFEN 10 MG TAB PO SCH ×2 (10:14→21:24)
[2020-12-28] MEDS: PANTOPRAZOLE 40MG TAB (PROTONIX) PO SCH ×2 (10:15→21:23)
[2020-12-28] MEDS: LACTULOSE 20 GM/30 ML SYRUP UD PO SCH (10:15)
[2020-12-28] MEDS: levETIRAcetam 250MG TABLET (KEPPRA) PO SCH ×2 (10:15→21:23)
--- NOTE | 2020-12-28 11:35 | SMCUROLCON ---
Urology Consultation General Date of Consultation 12/28/20 Reason For Consultation This patient is seen for Acute Encephalopathy. History of Present Illness The patient is a 55-year-old female with a past medical history for neurogenic bladder and subsequenty cystectomy and ileal conduit. That was 3 years ago. One year later, the stoma was revised to a straight conduit with bag drainage. She originally had a non refluxing conduit that would be catheterized periodically. She has a past history of recurrent UTI's and has hyd bilateral hydronephrosis since at least last September when a CT showed bilateral hydronephrosis R>L unchanged from a prior study. Studies during this admission show bilateral hydronephrosis and the ileal conduit appeared to me to be obstructed. This would account for the bilateral hydro despite the fact that she was draining clear urine from the stoma. Because of her complex urinary history and her recurrent UTIs and her current obtunded state, a urology consult was called. Past Medical History Medical History Epilepsy MS Neurogenic bladder Neurogenid bowel Recurrent UTIs COPD Hypertension Torticollis Pseudobulbar affect Paresthesias Microcytic anemia B12 deficiency Vit D deficiency Migraines Obesity GERD Chronic Back Pain Anxiety/depression Mepatic steatosis Surgical Hstory Bilateral breast reduction Bilateral wrist surgery Tubal ligation Resection Basal Cell Ca Hysterectomy Cystectomy with ileal conduit Revision of ileal conduit Family History Significant Family History: No pertinent family hx Social History * Smoker: non-smoker Alcohol: Denies Drugs: denies Medications Current Medications Current Medications Medications (Trade) Dose Ordered Sig/Felix Route PRN Reason Start Time Stop Time Status Last Admin Dose Admin Acetaminophen (Tylenol Suppository) 650 mg Q4HP PRN [place] PAIN / FEVER 12/25/20 16:00 12/25/20 16:13 Acetaminophen (Tylenol Tab) 500 mg Q4HP PRN PO PAIN OR FEVER 12/22/20 11:30 12/22/20 11:35 DC Acetaminophen (Tylenol Tab) 650 mg Q4HP PRN PO PAIN OR FEVER 12/22/20 11:30 12/27/20 00:58 Acyclovir (Zovirax) 400 mg BID PO 12/22/20 16:00 12/28/20 10:12 Albuterol Sulfate (Proventil, Ventolin Hfa) 2 puff Q4HP PRN INH SHORTNESS OF BREATH 12/18/20 23:00 Amantadine HCl (Symmetrel) 100 mg BID PO 12/22/20 16:00 12/28/20 10:13 Aripiprazole (AbiLIFY) 2 mg QHS PO 12/22/20 16:00 12/25/20 22:11 Aspirin (Ecotrin) 81 mg QHS PO 12/26/20 21:00 12/27/20 22:31 Atorvastatin Calcium (Lipitor) 40 mg DAILY PO 12/26/20 09:00 12/28/20 10:13 Baclofen (Lioresal) 40 mg BID PO 12/26/20 09:00 12/28/20 10:14 Dextrose/Sodium Chloride 1,000 ml @ 85 mls/hr [id number] IV 12/25/20 08:00 12/28/20 04:49 Dextrose/Sodium Chloride 1,000 ml @ 100 mls/hr Q10H IV 12/18/20 18:30 12/20/20 17:00 DC 12/20/20 16:32 Docusate Sodium (Colace) 100 mg BID PO 12/26/20 09:00 12/28/20 10:12 Duloxetine HCl (Cymbalta) 60 mg BID PO 12/21/20 11:00 12/28/20 10:14 Enoxaparin Sodium (Lovenox) 30 mg DAILY SC 12/19/20 09:00 12/28/20 10:12 Fentanyl (Duragesic) 12 mcg Q3D TOP 12/27/20 09:00 12/27/20 16:11 Fentanyl (Duragesic) 25 mcg Q3D TOP 12/26/20 09:00 12/27/20 14:01 DC 12/26/20 13:08 Fluticasone Propionate (Flovent Hfa 110 Mcg) 2 puff RBID PRN INH SOB/WHEEZING 12/26/20 11:00 Heparin Sodium (Heparin (Flush)) 500 units ASDIRECTED PRN IV SEE LABEL COMMENTS 12/26/20 19:15 Heparin Sodium (Heparin (Flush)) 500 units DAILY IV 12/27/20 09:00 Home Med (Med Rec Complete!) ASDIRECTED XX 12/18/20 19:00 12/18/20 18:57 DC Hydroxyzine HCl (Atarax) 50 mg BID PO 12/27/20 11:30 12/28/20 10:14 Lactated Ringer's 1,000 ml @ 100 mls/hr Q10H IV 12/22/20 11:00 12/22/20 20:59 DC 12/22/20 11:29 Lactulose (Cephulac) 30 ml DAILY PO 12/27/20 09:00 12/28/20 10:15 Levetiracetam (Keppra) 500 mg BID PO 12/21/20 11:00 12/28/20 10:15 Levetiracetam 500 mg/Dextrose 105 ml @ 420 mls/hr Q12H IV 12/18/20 23:00 12/21/20 10:52 DC 12/20/20 22:55 Levofloxacin (Levaquin) 250 mg DAILY@06 PO 12/25/20 06:00 12/27/20 22:06 DC 12/27/20 04:53 Levothyroxine Sodium (Synthroid) 25 mcg DAILY IV 12/19/20 09:00 12/21/20 16:27 DC 12/21/20 09:07 Levothyroxine Sodium (Synthroid) 50 mcg DAILY@06 PO 12/22/20 06:00 12/28/20 06:34 Magnesium Oxide (Mag-Ox) 400 mg QHS PO 12/26/20 21:00 12/27/20 22:31 Meropenem 1 gm/IV Miscellaneous Supplies 50 ml @ 100 mls/hr Q12H IV 12/21/20 17:00 12/24/20 07:52 DC 12/24/20 04:54 Meropenem 1 gm/IV Miscellaneous Supplies 50 ml @ 100 mls/hr Q8H IV 12/28/20 00:00 12/28/20 10:11 Meropenem 500 mg/ IV Miscellaneous Supplies 50 ml @ 100 mls/hr Q8H IV 12/25/20 17:00 12/27/20 22:10 DC 12/27/20 16:12 Naloxone HCl (Narcan) 0.1 mg Q5MP PRN IV RESP. RATE < 10 12/19/20 04:30 Naloxone HCl (Narcan) 0.4 mg STAT STAT IV 12/18/20 16:56 12/18/20 16:57 DC 12/18/20 16:56 Naloxone HCl (Narcan) 4 mg STAT STAT IV 12/18/20 17:38 12/18/20 17:39 Cancel Naloxone HCl (Narcan) 4 mg STAT STAT IV 12/18/20 17:56 12/18/20 17:57 DC 12/18/20 17:59 Non-Formulary Medication ( See Comment Field Below ) SEE COMMENTS SECTION ASDIRECTED XX 12/26/20 11:15 12/28/20 04:46 Ondansetron HCl (ZOFRAN INJection) 4 mg Q6H IV 12/27/20 10:00 12/28/20 10:11 Pantoprazole Sodium (Protonix) 40 mg BID PO 12/26/20 09:00 12/28/20 10:15 Phenytoin (Dilantin) 400 mg QHS PO 12/21/20 21:00 12/27/20 22:34 Polyethylene Glycol (Miralax) 1 pkt DAILYPRN PRN PO CONSTIPATION 12/26/20 10:45 Potassium Chloride (Micro-K Extencaps) 10 meq DAILY PO 12/27/20 09:00 12/28/20 10:14 Pregabalin (Lyrica) 300 mg BID PO 12/22/20 16:00 12/28/20 10:13 Promethazine HCl (Phenergan) 25 mg Q4H PRN PO NAUSEA OR VOMITING 12/27/20 10:45 Senna (Senokot) 2 tab QHS PO 12/26/20 21:00 12/27/20 22:32 Sodium Chloride 1,000 ml @ 150 mls/hr Q6H40M IV 12/18/20 17:50 12/18/20 18:18 DC 12/18/20 17:53 Sodium Chloride (Saline Lock Flush) 10 ml ASDIRECTED PRN IV SEE LABEL COMMENTS 12/26/20 19:15 Sodium Chloride (Saline Lock Flush) 10 ml DAILY IV 12/27/20 09:00 Allergies Allergies: Coded Allergies: Cephalosporins (Verified Allergy, Intermediate, rash, 12/27/19) Sulfa (Sulfonamide Antibiotics) (Verified Allergy, Mild, itchy, 12/27/19) oxycodone (Verified Allergy, Mild, itchy, 12/27/19) hydrocodone (Verified Adverse Reaction, Intermediate, chest pain, 12/27/19) acetaminophen (Verified Adverse Reaction, Mild, NAUSEA, 12/27/19) Review of Systems General: Reports: ROS Unobtainable Physical Examination General Exam: Other (Obtunded) EYE EXAM: PERRLA, Conjunctiva & lids normal, EOMI; No: Sclera icteric ENT EXAM: Atraumatic, Mucous membr. moist/pink, Pharynx Normal Abdomen Exam: Normal Bowel Sounds, Soft; No: Tenderness, Hepatospenomegaly Vital Signs/I&O Vital Signs Date Time Temp Pulse Resp B/P (MAP) Pulse Ox O2 Delivery O2 Flow Rate FiO2 12/28/20 08:00 98.9 78 22 129/80 (96) 95 Nasal Cannula 1.0 I&O- Last 24 Hours up to 6 AM 12/28/20 06:00 Intake Total 1020 ml Output Total 1050 ml Balance -30 ml Laboratory Data 24H Labs Laboratory Tests 2 12/28/20 05:53: Nucleated Red Blood Cells % (auto) 0.0, Erythrocyte Sedimentation Rate 56H, Anion Gap 9, Glomerular Filtration Rate 44.0L, Calcium Level 8.3L, Total Bilirubin 0.1L, Aspartate Amino Transf (AST/SGOT) 8, Alanine Aminotransferase (ALT/SGPT) 17, Alkaline Phosphatase 217H, C-Reactive Protein, Quantitative 4.66H, UO-Zei-R-Type Natriuretic Peptide 85, Total Protein 5.9L, Albumin 2.7L, Albumin/Globulin Ratio 0.8L 12/28/20 08:18: Procalcitonin 0.25 CBC/BMP Laboratory Tests 12/28/20 05:53 Microbiology Microbiology 12/27/20 Blood Culture, Received Pending 12/27/20 Gram Stain - Final, Resulted 12/27/20 CSF Culture, Resulted Pending 12/27/20 - Final, Complete 12/27/20 Blood Culture - Preliminary, Resulted No growth after 24 hours . All specim... 12/25/20 Blood Culture - Preliminary, Resulted No Growth after 48 hours. All Specime... 12/25/20 Urine Culture - Final, Complete 12/25/20 Blood Culture - Preliminary, Resulted No Growth after 48 hours. All Specime... 12/18/20 Respiratory Virus Panel (PCR) (VANDANA) - Final, Complete 12/18/20 Blood Culture - Final, Complete NO GROWTH AFTER 5 DAYS 12/18/20 Urine Culture - Final, Complete Providencia Rettgeri 12/18/20 Blood Culture - Final, Complete NO GROWTH AFTER 5 DAYS Assessment Obstructed ileal stoma Plan I attempted to pass a 16 fr porter cath unsuccessfully because of a subcutaneous stricture or kink. After switching to a 12 fr porter, I was able to pass it through the obstruction and obtained a large amountof urine through the porter. Porter cath should be left in place to drain into stoma bag Repeat renal ultrasound in 24 hours. Time Spent on Consult: Time Spent / Consult (Minutes): 90 GERI REHMAN MD Dec 28, 2020 11:25
--- NOTE | 2020-12-28 14:37 | CR ---
INFECTIOUS DISEASE CONSULTATION DATE: 12/27/2020 REASON FOR CONSULTATION: Asked to consult by Dr. Lee for evaluation of fever, altered mental status in a patient with a urinary tract infection and multiple sclerosis. HISTORY OF PRESENT ILLNESS: Elise is a 55-year-old female known to me from previous hospitalization who was brought in by her due to lethargy. The patient was having symptoms a couple of days prior to admission. She was not eating well. There has been no change in her medication. On admission, she did not have any fever, but had mental status changes. Her white count was 7.3. Patient's urine culture grew Providencia and the patient was treated on December 19, 2020 with intravenous (IV) levofloxacin and she was given meropenem at the dose of 1 gram every 12 hours from December 21, 2020 to December 24, 2020. On December 24, 2020, levofloxacin was started, 500 mg, then 250 mg daily based on her renal function, which was continued until December 27, 2020, along with meropenem that was restarted because of soft fevers. The patient developed fever around December 22, 2020, between 100.9 and 101.7. Also, her white count increased up to 16,000. When this happened, meropenem was resumed. Patient is still encephalopathic despite of being on appropriate antibiotics for the past eight days, between meropenem and Levaquin, both with Proteus Providencia, susceptible to both antibiotics. Patient in the morning today was awake and oriented. She was in her chair sitting and answering questions appropriately. This afternoon, patient was exhausted, laying in bed, barely opened her eyes, knew I was Dr. Lobato, but otherwise did not answer any questions. She had been started on Fentanyl about two months ago. Her had removed the patch because of her lethargy. PAST MEDICAL HISTORY: Significant for: 1. Epilepsy. 2. Multiple sclerosis, uses rolling walker. Had a stem cell transplantation in [place], which has not made anything better in terms of her MS. She got off her medication, Ocrevus, after her stem cell transplant in January 2020. 3. Neurogenic bladder, required cystectomy with urostomy. 4. Neurogenic bowel. 5. History of recurrent urinary tract infections. 6. Chronic obstructive pulmonary disease (COPD). 7. Hypertension. 8. Torticollis. 9. Pseudobulbar affect. 10. Paresthesias. 11. Microcytic B12 deficiency. 12. Vitamin D deficiency. 13. Obesity. 14. Gastroesophageal reflux disease. 15. Chronic back pain. 16. Anxiety and depression. 17. Fatty liver. PAST SURGICAL HISTORY: 1. Bilateral breast reduction. 2. Bilateral wrist surgery. 3. Tubal ligation. 4. Basal cell carcinoma resection. 5. Hysterectomy. SOCIAL HISTORY: She does not smoke, drink or use recreational drugs. She is , lives with her . FAMILY HISTORY: Nonrevealing. ALLERGIES: CEPHALOSPORIN, SULFA, TYLENOL, HYDROCODONE, OXYCODONE. MEDICATIONS: - hydroxyzine 50 mg by mouth twice a day - Phenergan 25 mg every 4 hours as needed - Zofran 4 mg IV every 6 hours, that she is refusing - Lactulose 30 mL by mouth daily - Fentanyl 12 mcg topical every 3 days - Senokot 2 tablets by mouth at bedtime that she refused today - aspirin 81 mg by mouth at bedtime - fluticasone 2 puffs inhaled twice a day as needed - MiraLax one packet daily as needed - Lipitor 40 mg daily - baclofen 40 mg by mouth twice a day - pantoprazole 40 mg twice a day - meropenem 500 mg IV every 8 hours - levofloxacin 250 mg by mouth daily, currently day #4 - amantadine 100 mg by mouth twice a day - Abilify 2 mg by mouth at bedtime - Seroquel 300 mg by mouth twice a day - levothyroxine 50 mcg by mouth daily - Dilantin 400 mg by mouth at bedtime - Cymbalta 60 mg by mouth twice a day - Keppra 500 mg by mouth twice a day - Lovenox 30 mg subcutaneous daily LABORATORY DATA: White count 10.8, hemoglobin 10.2, hematocrit 33.6, platelets 212. White count spiked to 16.3 on December 22, 2020, the day of her fever. Sodium 145, potassium 3.6, chloride 111, bicarbonate 24, BUN 22, creatinine 1.52 with a GFR 38. Her creatinine has improve from 2.34 on admission. AST 23, ALT 27, alkaline phosphatase 256, total protein 6.4, albumin 3.2. Procalcitonin on admission was 8.3. Blood cultures on December 18, 2020: Two sets were negative. Respiratory panel was negative. December 25, 2020, two sets were negative as well. Urine culture on December 18, 2020 had Providencia rettgeri resistant to nitrofurantoin, ampicillin and cephazolin. Urine culture on December 25, 2020 had no growth of clinical significance. Urinalysis on December 25, 2020 had 90 white cells, 30 red cells. Lumbar puncture done for mental status changes today showed 1 white cell, less than 2 red cells, glucose 58, total protein 112, which is thought to be related to her multiple sclerosis, not an infectious process. Cerebrospinal fluid (CSF) panel PCR negative for any viral or bacterial pathogen. CSF culture is pending. PHYSICAL EXAMINATION: This was done via Facetime with her present in the room and Ludwig MARIE Patient is afebrile. Temperature 97.5, pulse 88, respirations 24, blood pressure 126/75, oxygen saturation 96% on room air. T-max was 100.5 today, 101.6 on December 25, 2020. Lethargic female laying in bed. Opens her eyes when called by name. Recognizes me as Dr. Loabto, but otherwise, not very verbal. She does not have any neck stiffness. Follows commands. Bends her neck up and down. ABDOMEN: Obese, soft and tender. She has a cystostomy bag. EXTREMITIES: No edema. LUNGS: According to her nurse, are clear to auscultation. HEART: Normal S1, S2. IMPRESSION: This is a 55-year-old female with multiple sclerosis who was admitted with a urinary tract infection, treated appropriately with levofloxacin and meropenem or a combination and did improve somewhat, but also is not back to baseline mental status lombardo and is still encephalopathic. A renal ultrasound done on December 18, 2020 showed moderate hydronephrosis, bilateral, with evidence of chronic renal disease. It could be a postobstructive infection that could explain this persistent encephalopathy. Chest x-ray done on December 26, 2020 showed no acute disease. Brain MRI was done tonight. The results are still pending. Lumbar puncture was done on December 27, 2020, under fluoroscopic guidance. Head CT December 18, 2020 shows no acute intracranial pathology and chronic findings of periventricular and deep subcortical white matter changes. PLAN: 1. Discontinue Levofloxacin. There is no need for dual gram-negative coverage. 2. Increase meropenem to 1 gram IV every 8 hours. Her creatinine has improved to 1.5. 3. Update CT abdomen and pelvis if creatinine improves or renal ultrasound to follow up on bilateral moderate hydronephrosis. Patient will need a stent placement. DEVORAH
--- NOTE | 2020-12-28 15:55 | IPNPDOC ---
Date Seen The patient was seen on 12/28/20. Progress Note SUBJECTIVE: Urology consulted for b/l hydronephrosis, obstructed ileal conduit. 12 Fr porter was able to pass through the obstruction and large amount of urine came into porter. Repeat renal US in 24 hours scheduled. She was more lethargic this AM; however, still participated in exam. MRI brain with contrast showed no enhancement to suggest active demyelination. Patient denies chest pain, n/v/d, fevers, chills. PHYSICAL EXAM: VITAL SIGNS: Please see below GENERAL APPEARANCE: laying in bed, cooperative but lethargic compared to yesterday's exam. slow to respond still at times. LUNGS: CTAB, no W/R/R CVS: S1S2, no M/R/G ABDOMEN: obese, Soft, slightly distended, BS + in 4 quad EXTREMITIES: No peripheral edema. Neuro: CN 2-12 intact, no focal deficits, nonsustained clonus b/l. Generalized weakness 4/5 in all ext-improved. No sensory or motor deficits. No horizontal or vertical nystagmus, no hyperreflexia in any extremity LABORATORY DATA: Please see below MICROBIOLOGY: CSF: NEg PCR for meningitis/encephalitis CSF GS: NO CELLS SEEN, NO ORGANISMS SEEN CSF Cx: pending Blood cultures x 2 sets from Power port 12/26/20: NG thus far Repeat BCx 12/25/20: NG Bcx x 2 sets from admission: NG Repeat UCx 12/25/20: NG UCx from admission: PROVIDENCIA RETTGERI Repeat Resp panel 12/25/20: neg Resp panel from admission: neg IMAGING: Repeat renal US 12/27/20: 1. Moderate hydronephrosis bilaterally, right side greater than left without change. 2. Echogenic kidneys with evidence of renal cortical atrophy 3. Echogenic liver suggests underlying infiltrative process such as fatty infiltration or fibrosis MRI brain with contrast (1/2 dose due to GFR) 12/27/20: Extensive T2 signal hyperintensity throughout the periventricular and deep white matter, with distribution, size, and number unchanged. No enhancement to suggest active demyelination. Overall, moderate burden of disease. CT head: 1. No acute intracranial pathology. Chronic findings. A/P: Encephalopathy likely multifactorial 2/2 to UTI, poss other infection unknown to us at this time. Previously believed to be polypharmacy.- Slowly improving -Afebrile ovrnight, on IV meropenem -Per neuro has had encephalopathy in the past, required EEGs to r/o seizures -Per neuro, may take some time to return to baseline with current UTI, infection -MRI with contrast: no active demyelination -For now c/w treatment below for UTI -PT/OT Fevers, r/o other infection not identified -Afebrile since 12 AM 12/27/20 -Despite appropriate abx therapy -BCx taken from power port- NG thus far -BCx NG thus far, repeat UCx NG after being on abx. -CSF: Neg to date, f/u Cx -Hydronephrosis b/l on renal US, possible cause of continued/recurrent UTI with fevers- see w/u plan below -If continues to spike fevers and all w/u above neg, have not done CT with contrast of chest and abd/pelvis or echocardiogram (no murmur, other s/s of endocarditis) -C/w IVFs, meropenem IV -ID consulted and has evaluated Bilateral hydronephrosis with recurrent UTI likely 2/2 to obstructed ileal stoma -Recurrent fevers, TERRELL could be 2/2 to this issue as well -Repeat renal US above -Urology (Dr. Andre) examined patient: "PMH for neurogenic bladder and subsequenty cystectomy and ileal conduit 3 yrs ago. One year later, the stoma was revised to a straight conduit with bag drainage. She originally had a non refluxing conduit that would be catheterized periodically. She has a past history of recurrent UTI's and has bilateral hydronephrosis since at least last September when a CT showed bilateral hydronephrosis R>L unchanged from a prior study. Studies during this admission show bilateral hydronephrosis and the ileal condu it appeared to me to be obstructed. This would account for the bilateral hydro despite the fact that she was draining clear urine from the stoma. " -Urology recommending to keep porter cath in place to drain into stoma bag. Repeat US in 24 hours Providencia UTI, hx of recurrent UTI poss 2/2 to issue above -Afebrile for >24 hours, WBC wnl -UCx above -Currently on IV meropenem Constipation, improving -1 BM today -On IVFs -Added bowel regimen, including daily lactulose Acute kidney injury on chronic kidney disease -Cr improving slowly and may improve faster now with porter cath -Cr 1.34 -C/w D5W1/2 NSS at gentle rate, encourage PO intake. -F/u daily labs, avoid nephrotoxic meds Secondary progressive multiple sclerosis -Per neuro, possibly pseudo-exacerbation 2/2 to UTI -Do not treat with steroids unless seen to have active lesion -MRI with gadolinium: no active demyelination -C/w PT/OT for now treatment with abx above Hx of torticollis -C/w home baclofen -Stable Chronic pain syndrome -Decreased dose of fentanyl patch to 12.5 mcg Q72H -Chronic pain improved DVT px -Lovenox Resolved issues: Hypernatremia, acute DISPOSITION: C/w workup above, ID and now urology consulted to follow. PT/OT. Joey is at bedside and has been updated daily. VS, I&O, 24H, Fishbone Vital Signs/I&O Vital Signs Date Time Temp Pulse Resp B/P (MAP) Pulse Ox O2 Delivery O2 Flow Rate FiO2 12/28/20 14:00 96 Room Air 12/28/20 12:00 99.1 115 22 104/64 (77) 1.0 I&O- Last 24 Hours up to 6 AM 12/28/20 06:00 Intake Total 1020 ml Output Total 1050 ml Balance -30 ml Laboratory Data 24H LABS Laboratory Tests 2 12/28/20 05:53: Nucleated Red Blood Cells % (auto) 0.0, Erythrocyte Sedimentation Rate 56H, Anion Gap 9, Glomerular Filtration Rate 44.0L, Calcium Level 8.3L, Total Bilirubin 0.1L, Aspartate Amino Transf (AST/SGOT) 8, Alanine Aminotransferase (ALT/SGPT) 17, Alkaline Phosphatase 217H, C-Reactive Protein, Quantitative 4.66H, HW-Ubc-A-Type Natriuretic Peptide 85, Total Protein 5.9L, Albumin 2.7L, Albumin/Globulin Ratio 0.8L 12/28/20 08:18: Procalcitonin 0.25 CBC/BMP Laboratory Tests 12/28/20 05:53 Microbiology Microbiology 12/27/20 Blood Culture - Preliminary, Resulted No growth after 24 hours . All specim... 12/27/20 Gram Stain - Final, Resulted 12/27/20 CSF Culture, Resulted Pending 12/27/20 - Final, Complete 12/27/20 Blood Culture - Preliminary, Resulted No growth after 24 hours . All specim... 12/25/20 Blood Culture - Preliminary, Resulted No Growth after 48 hours. All Specime... 12/25/20 Urine Culture - Final, Complete 12/25/20 Blood Culture - Preliminary, Resulted No Growth after 48 hours. All Specime... 12/18/20 Respiratory Virus Panel (PCR) (VANDANA) - Final, Complete 12/18/20 Blood Culture - Final, Complete NO GROWTH AFTER 5 DAYS 12/18/20 Urine Culture - Final, Complete Providencia Rettgeri 12/18/20 Blood Culture - Final, Complete NO GROWTH AFTER 5 DAYS Current Medications Current Medications Medications (Trade) Dose Ordered Sig/Felix Route PRN Reason Start Time Stop Time Status Last Admin Dose Admin Acetaminophen (Tylenol Suppository) 650 mg Q4HP PRN CA PAIN / FEVER 12/25/20 16:00 12/25/20 16:13 Acetaminophen (Tylenol Tab) 500 mg Q4HP PRN PO PAIN OR FEVER 12/22/20 11:30 12/22/20 11:35 DC Acetaminophen (Tylenol Tab) 650 mg Q4HP PRN PO PAIN OR FEVER 12/22/20 11:30 12/27/20 00:58 Acyclovir (Zovirax) 400 mg BID PO 12/22/20 16:00 12/28/20 10:12 Albuterol Sulfate (Proventil, Ventolin Hfa) 2 puff Q4HP PRN INH SHORTNESS OF BREATH 12/18/20 23:00 Amantadine HCl (Symmetrel) 100 mg BID PO 12/22/20 16:00 12/28/20 10:13 Aripiprazole (AbiLIFY) 2 mg QHS PO 12/22/20 16:00 12/25/20 22:11 Aspirin (Ecotrin) 81 mg QHS PO 12/26/20 21:00 12/27/20 22:31 Atorvastatin Calcium (Lipitor) 40 mg DAILY PO 12/26/20 09:00 12/28/20 10:13 Baclofen (Lioresal) 40 mg BID PO 12/26/20 09:00 12/28/20 10:14 Dextrose/Sodium Chloride 1,000 ml @ 85 mls/hr [id number] IV 12/25/20 08:00 12/28/20 04:49 Dextrose/Sodium Chloride 1,000 ml @ 100 mls/hr Q10H IV 12/18/20 18:30 12/20/20 17:00 DC 12/20/20 16:32 Docusate Sodium (Colace) 100 mg BID PO 12/26/20 09:00 12/28/20 10:12 Duloxetine HCl (Cymbalta) 60 mg BID PO 12/21/20 11:00 12/28/20 10:14 Enoxaparin Sodium (Lovenox) 30 mg DAILY SC 12/19/20 09:00 12/28/20 10:12 Fentanyl (Duragesic) 12 mcg Q3D TOP 12/27/20 09:00 12/27/20 16:11 Fentanyl (Duragesic) 25 mcg Q3D TOP 12/26/20 09:00 12/27/20 14:01 DC 12/26/20 13:08 Fluticasone Propionate (Flovent Hfa 110 Mcg) 2 puff RBID PRN INH SOB/WHEEZING 12/26/20 11:00 Heparin Sodium (Heparin (Flush)) 500 units ASDIRECTED PRN IV SEE LABEL COMMENTS 12/26/20 19:15 Heparin Sodium (Heparin (Flush)) 500 units DAILY IV 12/27/20 09:00 Home Med (Med Rec Complete!) ASDIRECTED XX 12/18/20 19:00 12/18/20 18:57 DC Hydroxyzine HCl (Atarax) 50 mg BID PO 12/27/20 11:30 12/28/20 10:14 Lactated Ringer's 1,000 ml @ 100 mls/hr Q10H IV 12/22/20 11:00 12/22/20 20:59 DC 12/22/20 11:29 Lactulose (Cephulac) 30 ml DAILY PO 12/27/20 09:00 12/28/20 10:15 Levetiracetam (Keppra) 500 mg BID PO 12/21/20 11:00 12/28/20 10:15 Levetiracetam 500 mg/Dextrose 105 ml @ 420 mls/hr Q12H IV 12/18/20 23:00 12/21/20 10:52 DC 12/20/20 22:55 Levofloxacin (Levaquin) 250 mg DAILY@06 PO 12/25/20 06:00 12/27/20 22:06 DC 12/27/20 04:53 Levothyroxine Sodium (Synthroid) 25 mcg DAILY IV 12/19/20 09:00 12/21/20 16:27 DC 12/21/20 09:07 Levothyroxine Sodium (Synthroid) 50 mcg DAILY@06 PO 12/22/20 06:00 12/28/20 06:34 Magnesium Oxide (Mag-Ox) 400 mg QHS PO 12/26/20 21:00 12/27/20 22:31 Meropenem 1 gm/IV Miscellaneous Supplies 50 ml @ 100 mls/hr Q12H IV 12/21/20 17:00 12/24/20 07:52 DC 12/24/20 04:54 Meropenem 1 gm/IV Miscellaneous Supplies 50 ml @ 100 mls/hr Q8H IV 12/28/20 00:00 12/28/20 10:11 Meropenem 500 mg/ IV Miscellaneous Supplies 50 ml @ 100 mls/hr Q8H IV 12/25/20 17:00 12/27/20 22:10 DC 12/27/20 16:12 Naloxone HCl (Narcan) 0.1 mg Q5MP PRN IV RESP. RATE < 10 12/19/20 04:30 Naloxone HCl (Narcan) 0.4 mg STAT STAT IV 12/18/20 16:56 12/18/20 16:57 DC 12/18/20 16:56 Naloxone HCl (Narcan) 4 mg STAT STAT IV 12/18/20 17:38 12/18/20 17:39 Cancel Naloxone HCl (Narcan) 4 mg STAT STAT IV 12/18/20 17:56 12/18/20 17:57 DC 12/18/20 17:59 Non-Formulary Medication ( See Comment Field Below ) SEE COMMENTS SECTION ASDIRECTED XX 12/26/20 11:15 12/28/20 04:46 Ondansetron HCl (ZOFRAN INJection) 4 mg Q6H IV 12/27/20 10:00 12/28/20 10:11 Pantoprazole Sodium (Protonix) 40 mg BID PO 12/26/20 09:00 12/28/20 10:15 Phenytoin (Dilantin) 400 mg QHS PO 12/21/20 21:00 12/27/20 22:34 Polyethylene Glycol (Miralax) 1 pkt DAILYPRN PRN PO CONSTIPATION 12/26/20 10:45 Potassium Chloride (Micro-K Extencaps) 10 meq DAILY PO 12/27/20 09:00 12/28/20 10:14 Pregabalin (Lyrica) 300 mg BID PO 12/22/20 16:00 12/28/20 10:13 Promethazine HCl (Phenergan) 25 mg Q4H PRN PO NAUSEA OR VOMITING 12/27/20 10:45 Senna (Senokot) 2 tab QHS PO 12/26/20 21:00 12/27/20 22:32 Sodium Chloride 1,000 ml @ 150 mls/hr Q6H40M IV 12/18/20 17:50 12/18/20 18:18 DC 12/18/20 17:53 Sodium Chloride (Saline Lock Flush) 10 ml ASDIRECTED PRN IV SEE LABEL COMMENTS 12/26/20 19:15 Sodium Chloride (Saline Lock Flush) 10 ml DAILY IV 12/27/20 09:00 Allergies Coded Allergies: Cephalosporins (Verified Allergy, Intermediate, rash, 12/27/19) Sulfa (Sulfonamide Antibiotics) (Verified Allergy, Mild, itchy, 12/27/19) oxycodone (Verified Allergy, Mild, itchy, 12/27/19) hydrocodone (Verified Adverse Reaction, Intermediate, chest pain, 12/27/19) acetaminophen (Verified Adverse Reaction, Mild, NAUSEA, 12/27/19) Veronica Lee MD Dec 28, 2020 15:55
[2020-12-28] MEDS: PHENYTOIN ER 100 MG CAP PO SCH (21:22)
[2020-12-28] MEDS: MAGNESIUM OXIDE 400MG TAB (MAG-OX) PO SCH (21:22)
[2020-12-28] MEDS: ASPIRIN 81 MG ENTERIC TAB PO SCH (21:23)
[2020-12-28] MEDS: ARIPiprazole 2 MG TAB PO SCH (21:23)
[2020-12-28] MEDS: SENNA 8.6 MG TAB (SENOKOT) PO SCH (21:23)
[2020-12-29] VITALS: BP 130/77
[2020-12-29] MEDS: MEROPENEM INJ 1 GM in IV 1 EA IV SCH ×4 (00:55→23:42)
[2020-12-29] MEDS: D5W/0.45% SODIUM CHLORIDE 1,000 ML IV SCH ×2 (01:54→15:40)
[2020-12-29 04:00] VITALS: BP 126/75
[2020-12-29] MEDS: LEVOTHYROXINE 50MCG TABLET (0.05MG) PO SCH (05:25)
[2020-12-29] MEDS: ONDANSETRON 4MG/2ML VIAL IV SCH ×4 (05:25→21:18)
[2020-12-29 06:30] LABS: HEMATOCRIT 30.6 % (36.0-47.0); HEMOGLOBIN 9.6 g/dl (12.0-15.5); MEAN CORPUSCULAR HEMOGLOBIN 27.7 pg (27.0-33.0); MEAN CORPUSCULAR HGB CONC 31.4 g/dl (32.0-36.5); MEAN CORPUSCULAR VOLUME 88.4 fl (80.0-96.0); PLATELET COUNT, AUTOMATED 163 10^3/uL (150-450); RED BLOOD COUNT 3.46 10^6/uL (4.00-5.40)
[2020-12-29 06:56] LABS: ALBUMIN 2.8 GM/DL (3.2-5.2); BILIRUBIN,TOTAL 0.2 MG/DL (0.2-1.0); CALCIUM LEVEL 8.3 MG/DL (8.5-10.1); CREATININE FOR GFR 1.29 MG/DL (0.55-1.30); POTASSIUM SERUM 3.6 MEQ/L (3.5-5.1); TOTAL PROTEIN 5.6 GM/DL (6.4-8.2)
[2020-12-29 07:57] VITALS: BP 138/82
[2020-12-29] MEDS: SODIUM CHLORIDE 0.9% INJ 10 ML SYR IV SCH (09:00)
[2020-12-29] MEDS: GASTROGRAFIN SOLUTION 30ML PO SCH ×2 (09:08→09:57)
[2020-12-29] MEDS: LACTULOSE 20 GM/30 ML SYRUP UD PO SCH (09:57)
[2020-12-29] MEDS: AMANTADINE 100MG TABLET PO SCH ×2 (09:58→20:27)
[2020-12-29] MEDS: PANTOPRAZOLE 40MG TAB (PROTONIX) PO SCH ×2 (09:58→20:36)
[2020-12-29] MEDS: ATORVASTATIN 20 MG TAB PO SCH (09:58)
[2020-12-29] MEDS: PREGABALIN 100 MG CAP (LYRICA) PO SCH ×2 (09:58→20:34)
[2020-12-29] MEDS: ENOXAPARIN 30MG/0.3ML SYRINGE (J1650 PER 10MG) SC SCH (09:58)
[2020-12-29] MEDS: BACLOFEN 10 MG TAB PO SCH ×2 (09:58→20:28)
[2020-12-29] MEDS: hydrOXYzine 50 MG TAB PO SCH ×2 (09:58→20:36)
[2020-12-29] MEDS: ACYCLOVIR 200 MG CAPSULE PO SCH ×2 (09:59→20:27)
[2020-12-29] MEDS: DULoxetine 30 MG CAP (CYMBALTA) PO SCH ×2 (09:59→20:36)
[2020-12-29] MEDS: DOCUSATE SODIUM 100MG CAPSULE PO SCH ×2 (09:59→20:36)
[2020-12-29] MEDS: POTASSIUM CHLORIDE 10 MEQ SR TABLET PO SCH (09:59)
[2020-12-29] MEDS: levETIRAcetam 250MG TABLET (KEPPRA) PO SCH ×2 (09:59→20:36)
[2020-12-29] MEDS ORDERED: ISOVUE-370 76% 100ML VIAL As Ordered ONE (11:27)
--- NOTE | 2020-12-29 11:38 | REP ---
INDICATION: Follow-up bilateral hydronephrosis after cath placement. COMPARISON: Comparison sonography 27 December 2020.. TECHNIQUE: Urinary tract sonography. FINDINGS: The patient is status post cystectomy.. Renal cortical echogenicity pattern is normal bilaterally and contours are smooth. There is moderate bilateral hydronephrosis again seen essentially unchanged from the study done 2 days prior. No mass or cyst is seen. Exam quality is inhibited somewhat by patient immobility and body habitus.. The right kidney measures 11.5 x 5.9 x 4.7 cm. Left renal dimensions are 10.5 x 5.5 x 5.3 cm. IMPRESSION: Moderate bilateral hydronephrosis persists essentially unchanged.. <Electronically signed by Chan Villa > 12/29/20 1131
[2020-12-29 11:43] VITALS: BP 122/78
--- NOTE | 2020-12-29 12:22 | REP ---
INDICATION: fevers, incr RR, r/o infection, PE. COMPARISON: Comparison CT chest study October 30, 2018.. TECHNIQUE: Contrast dose: 100 ML of Isovue [address] technique: Helical scanning is acquired and overlapping 1.5 mm and contiguous 3 mm axial images are reformatted. In addition, maximum intensity projection and multiplanar re-formation images are generated in sagittal and coronal imaging projections. FINDINGS: There is good opacification in the pulmonary arterial tree. There is no evidence of vessel cut off or filling defect to suggest pulmonary embolus. Homogeneous opacity is seen in the thoracic aorta. There is no evidence of aneurysm or dissection. Lung window settings demonstrate show no evidence of infiltrate, or atelectasis. No pleural or pericardial effusion is seen. No hilar or mediastinal mass or adenopathy is observed. Right-sided [id number] catheter is seen in place in the superior vena cava. In the upper abdomen, normal adrenal glands are seen. IMPRESSION: No CT evidence of pulmonary embolus. There is no evidence of infiltrate in the lung allison. No active cardiopulmonary disease. <Electronically signed by Chan Villa > 12/29/20 [id number]
--- NOTE | 2020-12-29 12:31 | REP ---
INDICATION: r/o intraabd infection. COMPARISON: Comparison CT study of the abdomen and pelvis is from October 02, 2019.. TECHNIQUE: Helical scanning is acquired following the intravenous injection of 100 mL of Isovue 370. Coronal and sagittal MPR images are provided. FINDINGS: Preliminary digital window cutter radiograph demonstrates mild gaseous distention of the colon question ileus. There is a drainage catheter in the right lower quadrant. The liver and the spleen are normal in size homogeneous in texture. No adrenal lesion is seen on either side. No abnormality is noted in the pancreas or the gallbladder. There is moderate bilateral hydronephrosis and hydroureter. Dilated ureters can be traced bilaterally to the level of the urinary diversion ileostomy loop. The drainage catheter is seen intubated in the ileostomy. Low-density fluid consistent with urine is seen filling this loop of ileum inside the abdominal wall. Bilateral cystic masses are seen in the ovaries, increased in size from the October 22, 2019 prior study. The right is larger than left. Cystic lesion in the right ovary measures 7.7 by 6.5 by 7.8 cm. The left-sided lesion measures 5.6 x 2.7 x 4.7 cm. The right-sided ovarian cystic mass lesion may be compressing the distal ureters bilaterally as they course to the uretero-ileal anastomosis. There is a large amount of liquid stool and gas in the proximal colon. Formed stool is seen distending and filling the rectum, question obstipation. Possible fecal impaction. No mural thickening is apparent. There is no evidence of free intraperitoneal air or ascites. No small bowel obstruction features. A normal appendix is seen in the right lower quadrant. IMPRESSION: Moderate bilateral hydronephrosis and hydroureter, likely associated with gradually enlarging cystic mass in the right ovary which is seen adjacent to the ureteral ileal anastomosis for both ureters. The right-sided ovarian lesion measures 7.7 x 7.8 x 6.5 cm. Obstipation fecal impaction pattern in the bowel gas. <Electronically signed by Chan Villa > 12/29/20 [id number]
--- NOTE | 2020-12-29 12:35 | IPNPDOC ---
Subjective Review oF Systems Chief Complaint The patient is a 55-year-old female admitted with a reason for visit of Acute Encephalopathy. Events since Last Encounter Since the porter catheter was inserted into the conduit yesterday, the patient's condition has improved. Today she is awake, alert and able to hold a conversation. Her urine output has improved. The repeat ultrasound shows no significant change yet, but clinically she has improved. Constitutional: Denies: Fever, Chills, Sweats, Weakness, Malaise Eyes: Denies: Pain, Vision change ENT: Denies: Head Aches, Sore Throat, Epistaxis Skin: Denies: Rash, Lesions, Breakdown, Nail Changes Genitourinary: Denies: Dysuria, Frequency, Incontinence, Hematuria Objective Physical Examination Eye Exam: PERRLA, Conjunctiva & lids normal, EOMI; No: Sclera icteric ABDOMEN EXAM: Normal bowel sounds, Soft; No: Tenderness, Hepatospenomegaly Vital Signs/I&O Vital Signs Date Time Temp Pulse Resp B/P (MAP) Pulse Ox O2 Delivery O2 Flow Rate FiO2 12/29/20 11:43 97.1 82 20 122/78 (93) 96 Room Air 12/28/20 20:00 I&O- Last 24 Hours up to 6 AM 12/29/20 06:00 Intake Total 120 ml Output Total 2025 ml Balance -1905 ml Laboratory Data Labs 24H Laboratory Tests 2 12/29/20 06:11: Nucleated Red Blood Cells % (auto) 0.0, Anion Gap 11, Glomerular Filtration Rate 46.0L, Calcium Level 8.3L, Total Bilirubin 0.2#, Aspartate Amino Transf (AST/SGOT) 8, Alanine Aminotransferase (ALT/SGPT) 16, Alkaline Phosphatase 229H, Total Protein 5.6L, Albumin 2.8L, Albumin/Globulin Ratio 1.0L CBC/BMP Laboratory Tests 12/29/20 06:11 Microbiology Microbiology 12/27/20 Blood Culture - Preliminary, Resulted No growth after 24 hours . All specim... 12/27/20 Gram Stain - Final, Complete 12/27/20 CSF Culture - Final, Complete 12/27/20 - Final, Complete 12/27/20 Blood Culture - Preliminary, Resulted No Growth after 48 hours. All Specime... 12/25/20 Blood Culture - Preliminary, Resulted No Growth after 72 hours. All specime... 12/25/20 Urine Culture - Final, Complete 12/25/20 Blood Culture - Preliminary, Resulted No Growth after 72 hours. All specime... Assessment/Plan Date Seen The patient was seen on 12/29/20. Patient Summary Urine output has improved with cath drainage No change to ultrasound hydronephrosis Plan to keep the porter in the conduit for the near future. Will need to consider a stomal diversion. Plan/VTE VTE Prophylaxis Ordered?: No Plan Continue porter cath drainage of ilial conduit. Consider stomal revision. GERI REHMAN MD Dec 29, 2020 12:35
--- NOTE | 2020-12-29 14:33 | IPNPDOC ---
Date Seen The patient was seen on 12/29/20. Progress Note SUBJECTIVE: Creatinine, u/o and mentation improved after placement of urine catheter. Unfortunately, CT abd/pelvis shows large right ovarian mass pressing against the uretero-ileal anastomosis, explaining a possible obstruction of urine flow. Discussed with Dr. Andre (urology) and her (Joey), Dr. Garcia (pet handler) consulted. CTA chest neg. Ate 50% of breakfast, an improvement. Patient denies chest pain, n/v/d, fevers, chills. PHYSICAL EXAM: VITAL SIGNS: Please see below GENERAL APPEARANCE: laying in bed, cooperative, awake and alert Ox3 LUNGS: CTAB, no W/R/R CVS: S1S2, no M/R/G ABDOMEN: urine bag in place now with porter cath inside in RUQ, obese, Soft, slightly distended, BS + in 4 quad EXTREMITIES: +1 pitting edema in the lower ext Neuro: CN 2-12 intact, no focal deficits, nonsustained clonus b/l. 3/5 in b/l lower ext, 4/5 strength in upper ext. No sensory or motor deficits. No horizontal or vertical nystagmus, no hyperreflexia in any extremity LABORATORY DATA: Please see below MICROBIOLOGY: CSF: NEg PCR for meningitis/encephalitis CSF GS: NO CELLS SEEN, NO ORGANISMS SEEN CSF Cx: NG Blood cultures x 2 sets from Power port 12/26/20: NG thus far Repeat BCx 12/25/20: NG Bcx x 2 sets from admission: NG Repeat UCx 12/25/20: NG UCx from admission: PROVIDENCIA RETTGERI Repeat Resp panel 12/25/20: neg Resp panel from admission: neg IMAGING: Renal US 12/29/20: Moderate bilateral hydronephrosis persists essentially unchanged. CT abd/pelvis with contrast 12/29/20: There is moderate bilateral hydronephrosis and hydroureter. Dilated ureters can be traced bilaterally to the level of the urinary diversion ileostomy loop. The drainage catheter is seen intubated in the ileostomy. Low-density fluid consistent with urine is seen filling this loop of ileum inside the abdominal wall. Bilateral cystic masses are seen in the ovaries, increased in size from the October 22, 2019 prior study. The right is larger than left. Cystic lesion in the right ovary measures 7.7 by 6.5 by 7.8 cm. The left-sided lesion measures 5.6 x 2.7 x 4.7 cm. The right-sided ovarian cystic mass lesion may be compressing the distal ureters bilaterally as they course to the uretero-ileal anastomosis. There is a large amount of liquid stool and gas in the proximal colon. Formed stool is seen distending and filling the rectum, question obstipation. Possible fecal impaction. No mural thickening is apparent. There is no evidence of free intraperitoneal air or ascites. No small bowel obstruction features. A normal appendix is seen in the right lower quadrant. CTA chest 12/29/20: No CT evidence of pulmonary embolus. There is no evidence of infiltrate in the lung allison. No active cardiopulmonary disease. Repeat renal US 12/27/20: 1. Moderate hydronephrosis bilaterally, right side greater than left without change. 2. Echogenic kidneys with evidence of renal cortical atrophy 3. Echogenic liver suggests underlying infiltrative process such as fatty infiltration or fibrosis MRI brain with contrast (1/2 dose due to GFR) 12/27/20: Extensive T2 signal hyperintensity throughout the periventricular and deep white matter, with distribution, size, and number unchanged. No enhancement to suggest active demyelination. Overall, moderate burden of disease. CT head: 1. No acute intracranial pathology. Chronic findings. A/P: Bilateral hydronephrosis with recurrent UTI likely 2/2 to large right ovarian mass compressing the distal ureters bilaterally as they course to the uretero- ileal anastomosis -Recurrent fevers, TERRELL could be 2/2 to this issue as well -Improved u/o, Cr and mental status since porter catheter was placed yesterday -Repeat renal US and CT abd/pelvis with contrast above -Discussed with urology (Dr. Andre), consulting .net developer (Dr. Garcia) to further assess -For now will leave porter in bag, monitor labs closely daily and follow up recommendations of consultation services above -Daily labs Providencia UTI, hx of recurrent UTI complicated by problem below -Afebrile since 12/27/20, WBC wnl -UCx above -Currently on IV meropenem, when attempted to switch off patient has spiked fevers -ID following, f/u recommendations after weekend Constipation -CT ab/pelvis above -Recommend manual disimpaction and mineral oil enema, as laxatives and stool softeners, hydration did not work alone -C/w IVFs one more day, encourage fluid hydration Q2H while awake , bowel regimen, daily lactulose Acute kidney injury on chronic kidney disease- resolved -Cr now wnl as of today s/p porter placement -Cr . -C/w IVFs at gentle rate until 12/30/20, encourage PO intake. -F/u daily labs, avoid nephrotoxic meds Secondary progressive multiple sclerosis -Per neuro, possibly pseudo-exacerbation 2/2 to UTI -Do not treat with steroids unless seen to have active lesion -MRI with gadolinium: no active demyelination -C/w PT/OT for now treatment with abx above Hx of torticollis -C/w home baclofen -Stable Chronic pain syndrome -Decreased dose of fentanyl patch to 12.5 mcg Q72H -Chronic pain improved DVT px -Lovenox Resolved issues: Hypernatremia, acute Encephalopathy likely multifactorial 2/2 to UTI and polypharmacy DISPOSITION: C/w workup above, ID and now pet handler, urology consulted to follow. PT/OT. Joey is at bedside and has been updated daily. VS, I&O, 24H, Fishbone Vital Signs/I&O Vital Signs Date Time Temp Pulse Resp B/P (MAP) Pulse Ox O2 Delivery O2 Flow Rate FiO2 12/29/20 11:43 97.1 82 20 122/78 (93) 96 Room Air 12/28/20 20:00 I&O- Last 24 Hours up to 6 AM 12/29/20 05:59 Intake Total 120 ml Output Total 1425 ml Balance -1305 ml Laboratory Data 24H LABS Laboratory Tests 2 12/29/20 06:11: Nucleated Red Blood Cells % (auto) 0.0, Anion Gap 11, Glomerular Filtration Rate 46.0L, Calcium Level 8.3L, Total Bilirubin 0.2#, Aspartate Amino Transf (AST/SGOT) 8, Alanine Aminotransferase (ALT/SGPT) 16, Alkaline Phosphatase 229H, Total Protein 5.6L, Albumin 2.8L, Albumin/Globulin Ratio 1.0L CBC/BMP Laboratory Tests 12/29/20 06:11 Microbiology Microbiology 12/27/20 Blood Culture - Preliminary, Resulted No Growth after 48 hours. All Specime... 12/27/20 Gram Stain - Final, Complete 12/27/20 CSF Culture - Final, Complete 12/27/20 - Final, Complete 12/27/20 Blood Culture - Preliminary, Resulted No Growth after 48 hours. All Specime... 12/25/20 Blood Culture - Preliminary, Resulted No Growth after 72 hours. All specime... 12/25/20 Urine Culture - Final, Complete 12/25/20 Blood Culture - Preliminary, Resulted No Growth after 72 hours. All specime... Current Medications Current Medications Medications (Trade) Dose Ordered Sig/Felix Route PRN Reason Start Time Stop Time Status Last Admin Dose Admin Acetaminophen (Tylenol Suppository) 650 mg Q4HP PRN MS PAIN / FEVER 12/25/20 16:00 12/25/20 16:13 Acetaminophen (Tylenol Tab) 500 mg Q4HP PRN PO PAIN OR FEVER 12/22/20 11:30 12/22/20 11:35 DC Acetaminophen (Tylenol Tab) 650 mg Q4HP PRN PO PAIN OR FEVER 12/22/20 11:30 12/27/20 00:58 Acyclovir (Zovirax) 400 mg BID PO 12/22/20 16:00 12/29/20 09:59 Albuterol Sulfate (Proventil, Ventolin Hfa) 2 puff Q4HP PRN INH SHORTNESS OF BREATH 12/18/20 23:00 Amantadine HCl (Symmetrel) 100 mg BID PO 12/22/20 16:00 12/29/20 09:58 Aripiprazole (AbiLIFY) 2 mg QHS PO 12/22/20 16:00 12/28/20 21:23 Aspirin (Ecotrin) 81 mg QHS PO 12/26/20 21:00 12/28/20 21:23 Atorvastatin Calcium (Lipitor) 40 mg DAILY PO 12/26/20 09:00 12/29/20 09:58 Baclofen (Lioresal) 40 mg BID PO 12/26/20 09:00 12/29/20 09:58 Dextrose/Sodium Chloride 1,000 ml @ 85 mls/hr [id number] IV 12/25/20 08:00 12/29/20 01:54 Dextrose/Sodium Chloride 1,000 ml @ 100 mls/hr Q10H IV 12/18/20 18:30 12/20/20 17:00 DC 12/20/20 16:32 Diatrizoate Meglum/ Diatrizoate Sod (Gastrografin) 10 ml Q30M PO 12/29/20 08:30 12/29/20 09:01 DC 12/29/20 09:57 Docusate Sodium (Colace) 100 mg BID PO 12/26/20 09:00 12/29/20 09:59 Duloxetine HCl (Cymbalta) 60 mg BID PO 12/21/20 11:00 12/29/20 09:59 Enoxaparin Sodium (Lovenox) 30 mg DAILY SC 12/19/20 09:00 12/29/20 09:58 Fentanyl (Duragesic) 12 mcg Q3D TOP 12/27/20 09:00 12/27/20 16:11 Fentanyl (Duragesic) 25 mcg Q3D TOP 12/26/20 09:00 12/27/20 14:01 DC 12/26/20 13:08 Fluticasone Propionate (Flovent Hfa 110 Mcg) 2 puff RBID PRN INH SOB/WHEEZING 12/26/20 11:00 Heparin Sodium (Heparin (Flush)) 500 units ASDIRECTED PRN IV SEE LABEL COMMENTS 12/26/20 19:15 Heparin Sodium (Heparin (Flush)) 500 units DAILY IV 12/27/20 09:00 Home Med (Med Rec Complete!) ASDIRECTED XX 12/18/20 19:00 12/18/20 18:57 DC Hydroxyzine HCl (Atarax) 50 mg BID PO 12/27/20 11:30 12/29/20 09:58 Lactated Ringer's 1,000 ml @ 100 mls/hr Q10H IV 12/22/20 11:00 12/22/20 20:59 DC 12/22/20 11:29 Lactulose (Cephulac) 30 ml DAILY PO 12/27/20 09:00 12/29/20 09:57 Levetiracetam (Keppra) 500 mg BID PO 12/21/20 11:00 12/29/20 09:59 Levetiracetam 500 mg/Dextrose 105 ml @ 420 mls/hr Q12H IV 12/18/20 23:00 12/21/20 10:52 DC 12/20/20 22:55 Levofloxacin (Levaquin) 250 mg DAILY@06 PO 12/25/20 06:00 12/27/20 22:06 DC 12/27/20 04:53 Levothyroxine Sodium (Synthroid) 25 mcg DAILY IV 12/19/20 09:00 12/21/20 16:27 DC 12/21/20 09:07 Levothyroxine Sodium (Synthroid) 50 mcg DAILY@06 PO 12/22/20 06:00 12/29/20 05:25 Magnesium Oxide (Mag-Ox) 400 mg QHS PO 12/26/20 21:00 12/28/20 21:22 Meropenem 1 gm/IV Miscellaneous Supplies 50 ml @ 100 mls/hr Q12H IV 12/21/20 17:00 12/24/20 07:52 DC 12/24/20 04:54 Meropenem 1 gm/IV Miscellaneous Supplies 50 ml @ 100 mls/hr Q8H IV 12/28/20 00:00 12/29/20 07:54 Meropenem 500 mg/ IV Miscellaneous Supplies 50 ml @ 100 mls/hr Q8H IV 12/25/20 17:00 12/27/20 22:10 DC 12/27/20 16:12 Naloxone HCl (Narcan) 0.1 mg Q5MP PRN IV RESP. RATE < 10 12/19/20 04:30 Naloxone HCl (Narcan) 0.4 mg STAT STAT IV 12/18/20 16:56 12/18/20 16:57 DC 12/18/20 16:56 Naloxone HCl (Narcan) 4 mg STAT STAT IV 12/18/20 17:38 12/18/20 17:39 Cancel Naloxone HCl (Narcan) 4 mg STAT STAT IV 12/18/20 17:56 12/18/20 17:57 DC 12/18/20 17:59 Non-Formulary Medication ( See Comment Field Below ) SEE COMMENTS SECTION ASDIRECTED XX 12/26/20 11:15 12/28/20 04:46 Ondansetron HCl (ZOFRAN INJection) 4 mg Q6H IV 12/27/20 10:00 12/29/20 09:59 Pantoprazole Sodium (Protonix) 40 mg BID PO 12/26/20 09:00 12/29/20 09:58 Phenytoin (Dilantin) 400 mg QHS PO 12/21/20 21:00 12/28/20 21:22 Polyethylene Glycol (Miralax) 1 pkt DAILYPRN PRN PO CONSTIPATION 12/26/20 10:45 12/28/20 15:26 Potassium Chloride (Micro-K Extencaps) 10 meq DAILY PO 12/27/20 09:00 12/29/20 09:59 Pregabalin (Lyrica) 300 mg BID PO 12/22/20 16:00 12/29/20 09:58 Promethazine HCl (Phenergan) 25 mg Q4H PRN PO NAUSEA OR VOMITING 12/27/20 10:45 Senna (Senokot) 2 tab QHS PO 12/26/20 21:00 12/28/20 21:23 Sodium Chloride 1,000 ml @ 150 mls/hr Q6H40M IV 12/18/20 17:50 12/18/20 18:18 DC 12/18/20 17:53 Sodium Chloride (Saline Lock Flush) 10 ml ASDIRECTED PRN IV SEE LABEL COMMENTS 12/26/20 19:15 Sodium Chloride (Saline Lock Flush) 10 ml DAILY IV 12/27/20 09:00 Allergies Coded Allergies: Cephalosporins (Verified Allergy, Intermediate, rash, 12/27/19) Sulfa (Sulfonamide Antibiotics) (Verified Allergy, Mild, itchy, 12/27/19) oxycodone (Verified Allergy, Mild, itchy, 12/27/19) hydrocodone (Verified Adverse Reaction, Intermediate, chest pain, 12/27/19) acetaminophen (Verified Adverse Reaction, Mild, NAUSEA, 12/27/19) Veronica Lee MD Dec 29, 2020 14:32
[2020-12-29] MEDS ORDERED: FLEET OIL RETENTION ENEMA PR ONE (15:00)
[2020-12-29 16:00] VITALS: BP 116/74
--- NOTE | 2020-12-29 16:56 | CR.PDOC ---
General Date of Consultation: Dec 29, 2020 Consultation REASON FOR CONSULTATION/CHIEF COMPLAINT: Bilateral ovarian cysts with ureteral obstruction. HISTORY OF PRESENT ILLNESS: 55 -year-old ,hospital day #10, history of multiple medical problems, admitted with change in mental status and lethargy. She was noted to have bilateral moderate hydronephrosis and elevated creatinine level. Bilateral ovarian masses were noted adjacent to the ureters, possible compression of the ureters. Medical history includes multiple sclerosis and neurogenic bladder. She has a urinary conduit via an ileostomy pouch. Since admission her mental status has improved. Her urinary conduit is draining. After urology placed a 16 Syrian catheter into the pouch. Her creatinine has slowly improved as well. ALLERGIES: Please see below. HOME MEDICATIONS: Please see below. PAST MEDICAL HISTORY: 1. Multiple sclerosis 2. Neurogenic bladder 3. Neurogenic bowel 4. COPD 5. Hypertension 6. GERD 7. Chronic back pain 8. Anxiety/depression 9. Frequent UTIs 10. Torticollis PAST SURGICAL HISTORY: 1. Hysterectomy 2. Tubal ligation 3. Breast reduction surgery 4. Wrist surgery FAMILY HISTORY: non-contributory SOCIAL HISTORY: Marital status and/or living arrangements: Employment: disabled Tobacco use:no ETOH: no Illicit drug use: no PHYSICAL EXAMINATION: VITAL SIGNS: Please see below. GENERAL APPEARANCE: Appears comfortable, flat affect. HEENT: WNL. RESPIRATORY: CTA. CARDIOVASCULAR: RRR. ABDOMEN: NT, obese, pouch on right. EXTREMITIES: NT, 1+ edema. LABORATORY DATA: Please see below. ASSESSMENT/PLAN: 55 -year-old with bilateral ovarian cysts consistent with probable cystadenomas. They have been present for approximately last 2 years and have grown slowly over that time. It is highly likely they are causing some compressive effects on the ureters. 1. Plan check tumor markers for ovarian cancer, although likelihood is low. 2. Patient is not a good surgical candidate due to overall poor health and extremely complicated surgery from adhesions. 3. If renal function and hydronephrosis are stable would consider conservative management rather than proceeding to the OR for removal of ovarian cysts. 4. If Renal function worsens from the compressive effects of ovarian cysts, could consider surgical removal. Alternatively, could consider either ureteral stent placement on nephrostomy tubes. 5. Even if ovarian cysts are removed, she may experience ureteral compression from dense adhesive scarring Vital Signs/I&O Vital Signs Date Time Temp Pulse Resp B/P (MAP) Pulse Ox O2 Delivery O2 Flow Rate FiO2 12/29/20 16:00 97.1 81 20 116/74 (88) 95 Room Air 12/28/20 20:00 I&O- Last 24 Hours up to 6 AM 12/29/20 06:00 Intake Total 120 ml Output Total 2025 ml Balance -1905 ml Laboratory Data Labs 24H Laboratory Tests 2 12/29/20 06:11: Nucleated Red Blood Cells % (auto) 0.0, Anion Gap 11, Glomerular Filtration Rate 46.0L, Calcium Level 8.3L, Total Bilirubin 0.2#, Aspartate Amino Transf (AST/SGOT) 8, Alanine Aminotransferase (ALT/SGPT) 16, Alkaline Phosphatase 229H, Total Protein 5.6L, Albumin 2.8L, Albumin/Globulin Ratio 1.0L CBC/BMP Laboratory Tests 12/29/20 06:11 Microbiology Microbiology 12/27/20 Blood Culture - Preliminary, Resulted No Growth after 48 hours. All Specime... 12/27/20 Gram Stain - Final, Complete 12/27/20 CSF Culture - Final, Complete 12/27/20 - Final, Complete 12/27/20 Blood Culture - Preliminary, Resulted No Growth after 48 hours. All Specime... 12/25/20 Blood Culture - Preliminary, Resulted No Growth after 72 hours. All specime... 12/25/20 Urine Culture - Final, Complete 12/25/20 Blood Culture - Preliminary, Resulted No Growth after 72 hours. All specime... Allergies Coded Allergies: Cephalosporins (Verified Allergy, Intermediate, rash, 12/27/19) Sulfa (Sulfonamide Antibiotics) (Verified Allergy, Mild, itchy, 12/27/19) oxycodone (Verified Allergy, Mild, itchy, 12/27/19) hydrocodone (Verified Adverse Reaction, Intermediate, chest pain, 12/27/19) acetaminophen (Verified Adverse Reaction, Mild, NAUSEA, 12/27/19) Home Medications Scheduled Acyclovir (Acyclovir) 400 Mg Tab, 400 MG PO BID, (Reported) Amantadine HCl (Amantadine) 100 Mg Tablet, 100 MG PO BID, (Reported) Aripiprazole (Aripiprazole) 2 Mg Tablet, 2 MG PO QHS, (Reported) Aspirin (Ecotrin) 81 Mg Tablet.dr, 81 MG PO QHS, (Reported) Atorvastatin Calcium (Atorvastatin Calcium) 40 Mg Tablet, 40 MG PO DAILY, (Reported) Baclofen (Baclofen) 20 Mg Tablet, 40 MG PO BID, (Reported) Clonazepam (Clonazepam) 1 Mg Tab, 1 MG PO QHS, (Reported) Duloxetine Hcl (Duloxetine HCl) 60 Mg Capsule.dr, 60 MG PO BID, (Reported) Ergocalciferol (Vitamin D2) (Vitamin D2) 50,000 Units Cap, 50,000 UNITS PO 1XWK, (Reported) FRIDAYS Fentanyl (Fentanyl) 25 Mcg Patch.td72, 25 MCG TOP Q3RD, (Reported) REMOVED 12/18/20 @ 0900, WAS DUE TO REPLACE AFTER SHOWER Fosfomycin Tromethamine (Fosfomycin Tromethamine) 3 Gram Packet, 3 GM PO QWEEK, (Reported) FRIDAYS Hydroxyzine HCl (Hydroxyzine HCl) 50 Mg Tablet, 50 MG PO BID, (Reported) Levetiracetam (Keppra) 500 Mg Tablet, 500 MG PO BID, (Reported) Levothyroxine Sodium (Levothyroxine Sodium) 50 Mcg Tablet, 50 MCG PO QAM, (Reported) 30 MINUTES BEFORE BREAKFAST Magnesium Oxide (Magnesium) 500 Mg Capsule, 500 MG PO QHS, (Reported) Melatonin (Melatonin) 10 Mg Capsule, 10 MG PO QHS, (Reported) Meloxicam (Meloxicam) 15 Mg Tablet, 15 MG PO DAILY, (Reported) Pantoprazole Sodium (Pantoprazole Sodium) 40 Mg Tablet.dr, 40 MG PO BID, (Reported) Phenytoin Sodium Extended (Phenytoin Sodium Extended) 100 Mg Capsule, 400 MG PO QHS, (Reported) Potassium Chloride (Potassium Chloride) 10 Meq Tab.er.prt, 10 MEQ PO DAILY, (Reported) Pregabalin (Lyrica) 300 Mg Capsule, 300 MG PO BID, (Reported) Sennosides/Docusate Sodium (Senokot-S Tablet) 1 Each Tablet, 1 TAB PO QHS, (Reported) Scheduled PRN Albuterol Sulfate (Ventolin Hfa) 108 Mcg/Act Aer, 2 PUFFS INH Q4H PRN for SHORTNESS OF BREATH, (Reported) Mometasone Furoate (Asmanex Hfa) 100 Mcg/Act Hfa.aer.ad, 1 PUFF INH BID PRN for ASTHMA SYMPTOMS, (Reported) Promethazine HCl (Promethazine HCl) 25 Mg Tablet, 25 MG PO Q4H PRN for NAUSEA OR VOMITING, (Reported) FOR NAUSEA RELATED TO MIGRAINES ISABEL PATRIICA MD Dec 29, 2020 16:30
[2020-12-29 20:00] VITALS: BP 137/84
[2020-12-29] MEDS: ARIPiprazole 2 MG TAB PO SCH (20:27)
[2020-12-29] MEDS: ASPIRIN 81 MG ENTERIC TAB PO SCH (20:27)
[2020-12-29] MEDS: POLYVINYL ALCOHOL OPHTH SOLN 15 ML(LIQUITEARS) OU SCH (20:28)
[2020-12-29] MEDS: SENNA 8.6 MG TAB (SENOKOT) PO SCH (20:35)
[2020-12-29] MEDS: PHENYTOIN ER 100 MG CAP PO SCH (20:35)
[2020-12-29] MEDS: MAGNESIUM OXIDE 400MG TAB (MAG-OX) PO SCH (20:36)
[2020-12-30] VITALS: BP 125/75
[2020-12-30] MEDS: D5W/0.45% SODIUM CHLORIDE 1,000 ML IV SCH ×3 (03:27→16:46)
[2020-12-30] MEDS: ONDANSETRON 4MG/2ML VIAL IV SCH (03:27)
[2020-12-30 04:00] VITALS: BP 117/70
[2020-12-30 05:21] LABS: HEMATOCRIT 26.9 % (36.0-47.0); HEMOGLOBIN 8.3 g/dl (12.0-15.5); MEAN CORPUSCULAR HEMOGLOBIN 26.9 pg (27.0-33.0); MEAN CORPUSCULAR HGB CONC 30.9 g/dl (32.0-36.5); MEAN CORPUSCULAR VOLUME 87.3 fl (80.0-96.0); PLATELET COUNT, AUTOMATED 166 10^3/uL (150-450); RED BLOOD COUNT 3.08 10^6/uL (4.00-5.40); WHITE BLOOD COUNT 5.3 10^3/uL (4.0-10.0)
[2020-12-30] MEDS: LEVOTHYROXINE 50MCG TABLET (0.05MG) PO SCH (05:43)
[2020-12-30 05:49] LABS: ALBUMIN 2.4 GM/DL (3.2-5.2); BILIRUBIN,TOTAL 0.1 MG/DL (0.2-1.0); CALCIUM LEVEL 8.2 MG/DL (8.5-10.1); CREATININE FOR GFR 1.33 MG/DL (0.55-1.30); GLOMERULAR FILTRATION RATE 44.4 (>51); POTASSIUM SERUM 3.4 MEQ/L (3.5-5.1); TOTAL PROTEIN 5.5 GM/DL (6.4-8.2)
[2020-12-30] MEDS ORDERED: POTASSIUM CHLORIDE 10 MEQ SR TABLET PO ONE (07:45)
[2020-12-30 07:50] VITALS: BP 113/67
[2020-12-30] MEDS: SODIUM CHLORIDE 0.9% INJ 10 ML SYR IV SCH (09:00)
[2020-12-30] MEDS: DOCUSATE SODIUM 100MG CAPSULE PO SCH ×2 (09:34→21:39)
[2020-12-30] MEDS: ATORVASTATIN 20 MG TAB PO SCH (09:34)
[2020-12-30] MEDS: hydrOXYzine 50 MG TAB PO SCH ×2 (09:35→20:34)
[2020-12-30] MEDS: POTASSIUM CHLORIDE 10 MEQ SR TABLET PO SCH (09:36)
[2020-12-30] MEDS: PANTOPRAZOLE 40MG TAB (PROTONIX) PO SCH ×2 (09:37→20:34)
[2020-12-30] MEDS: BACLOFEN 10 MG TAB PO SCH ×2 (09:37→20:32)
[2020-12-30] MEDS: levETIRAcetam 250MG TABLET (KEPPRA) PO SCH ×2 (09:38→20:33)
[2020-12-30] MEDS: DULoxetine 30 MG CAP (CYMBALTA) PO SCH ×2 (09:38→20:35)
[2020-12-30] MEDS: PREGABALIN 100 MG CAP (LYRICA) PO SCH ×2 (09:39→20:32)
[2020-12-30] MEDS: LACTULOSE 20 GM/30 ML SYRUP UD PO SCH (09:40)
[2020-12-30] MEDS: MEROPENEM INJ 1 GM in IV 1 EA IV SCH ×2 (09:40→16:45)
[2020-12-30] MEDS: ENOXAPARIN 30MG/0.3ML SYRINGE (J1650 PER 10MG) SC SCH (09:42)
[2020-12-30] MEDS: POLYVINYL ALCOHOL OPHTH SOLN 15 ML(LIQUITEARS) OU SCH ×3 (09:43→20:36)
[2020-12-30] MEDS: ACYCLOVIR 200 MG CAPSULE PO SCH ×2 (09:46→20:31)
[2020-12-30] MEDS: AMANTADINE 100MG TABLET PO SCH ×2 (09:46→20:34)
[2020-12-30] MEDS: fentaNYL 12 MCG/HR PATCH TOP SCH (09:51)
[2020-12-30 12:00] VITALS: BP 102/60
--- NOTE | 2020-12-30 15:43 | IPNPDOC ---
Subjective Review oF Systems Chief Complaint The patient is a 55-year-old female admitted with a reason for visit of Acute Encephalopathy. Events since Last Encounter No acute events o/n. The patient has been feeling progressively better since the stoma catheter was placed. Objective Physical Examination General Exam: Alert, Cooperative, No Acute Distress ABDOMEN EXAM: Soft, Other (urostomy w/ catheter in place and yellow urine draining); No: Tenderness Neuro Exam: Normal Speech Psych Exam: Mental status NL, Mood NL Vital Signs/I&O Vital Signs Date Time Temp Pulse Resp B/P (MAP) Pulse Ox O2 Delivery O2 Flow Rate FiO2 12/30/20 12:00 96.4 102 18 102/60 (74) 95 Room Air 12/28/20 20:00 I&O- Last 24 Hours up to 6 AM 12/30/20 06:00 Intake Total 1260 ml Output Total 2800 ml Balance -1540 ml Laboratory Data Labs 24H Laboratory Tests 2 12/30/20 05:13: Nucleated Red Blood Cells % (auto) 0.0, Anion Gap 4L, Glomerular Filtration Rate 44.4L, Calcium Level 8.2L, Total Bilirubin 0.1L, Aspartate Amino Transf (AST/SGOT) 8, Alanine Aminotransferase (ALT/SGPT) 11L, Alkaline Phosphatase 207H, Total Protein 5.5L, Albumin 2.4L, Albumin/Globulin Ratio 0.8L CBC/BMP Laboratory Tests 12/30/20 05:13 Microbiology Microbiology 12/27/20 Blood Culture - Preliminary, Resulted No Growth after 72 hours. All specime... 12/27/20 Gram Stain - Final, Complete 12/27/20 CSF Culture - Final, Complete 12/27/20 - Final, Complete 12/27/20 Blood Culture - Preliminary, Resulted No Growth after 72 hours. All specime... 12/25/20 Blood Culture - Preliminary, Resulted No Growth after 72 hours. All specime... 12/25/20 Urine Culture - Final, Complete 12/25/20 Blood Culture - Preliminary, Resulted No Growth after 72 hours. All specime... Assessment/Plan Date Seen The patient was seen on 12/30/20. Patient Summary The patient is a 55 y/o F w/ a history of a neurogenic bladder s/p cystectomy and ileal conduit a few yrs ago, admitted for AMS and TERRELL. Her TERRELL has improved w/ hydration and placement of a stoma catheter. She also has chronic b/l hydro, which appears to potentially be secondary to an obstructing ovarian cyst. She is asymptomatic from the hydro. The hydro does not appear to be affecting her renal function. I therefore would not recommend b/l neph tube placement at this time. This was discussed w/ the patient and her and they noted understanding. Plan/VTE VTE Prophylaxis Ordered?: No VTE Exclusion Mechanical Proph: N/A:VTE Prophy Ordered Plan - recommend keeping stoma Orellana in place - no need for b/l neph tube drainage at this time as Cr is stable and patient is asymptomatic - patient should f/u w/ her regular urologist shortly after discharge to discuss senior care management of her stoma which appears to be little stenotic - Orellana should stay in place until she is seen by her urologist GRETTA BRADLEY MD Dec 30, 2020 15:43
[2020-12-30 15:55] LABS: CA 125 17.3 U/ML (<30.2)
[2020-12-30 16:00] VITALS: BP 153/67
[2020-12-30 16:47] LABS: CA19-9 TUMOR MARKER,CARBOHYDRA 18.4 U/ML (<35.0)
--- NOTE | 2020-12-30 17:32 | IPNPDOC ---
Date Seen The patient was seen on 12/30/20. Progress Note SUBJECTIVE: Cr increased, spoke with Dr. Saha (urology) and discussed case- please refer to his note. continuing with IVF for now. Appears stronger today, more alert. Patient denies chest pain, n/v/d, fevers, chills. PHYSICAL EXAM: VITAL SIGNS: Please see below GENERAL APPEARANCE: laying in bed, cooperative, awake and alert Ox3 LUNGS: CTAB, no W/R/R CVS: S1S2, no M/R/G ABDOMEN: urine bag in place now with porter cath inside in RUQ, obese, Soft, slightly distended, BS + in 4 quad EXTREMITIES: +1 pitting edema in the lower ext Neuro: CN 2-12 intact, no focal deficits, nonsustained clonus b/l. 4/5 in b/l lower ext, 4/5 strength in upper ext. No sensory or motor deficits. No ho rizontal or vertical nystagmus, no hyperreflexia in any extremity LABORATORY DATA: Please see below MICROBIOLOGY: CSF: NEg PCR for meningitis/encephalitis CSF GS: NO CELLS SEEN, NO ORGANISMS SEEN CSF Cx: NG Blood cultures x 2 sets from Power port 12/26/20: NG thus far Repeat BCx 12/25/20: NG Bcx x 2 sets from admission: NG Repeat UCx 12/25/20: NG UCx from admission: PROVIDENCIA RETTGERI Repeat Resp panel 12/25/20: neg Resp panel from admission: neg IMAGING: Renal US 12/29/20: Moderate bilateral hydronephrosis persists essentially unchanged. CT abd/pelvis with contrast 12/29/20: There is moderate bilateral hydronephrosis and hydroureter. Dilated ureters can be traced bilaterally to the level of the urinary diversion ileostomy loop. The drainage catheter is seen intubated in the ileostomy. Low-density fluid consistent with urine is seen filling this loop of ileum inside the abdominal wall. Bilateral cystic masses are seen in the ovaries, increased in size from the Sep prior study. The right is larger than left. Cystic lesion in the right ovary measures 7.7 by 6.5 by 7.8 cm. The left-sided lesion measures 5.6 x 2.7 x 4.7 cm. The right-sided ovarian cystic mass lesion may be compressing the distal ureters bilaterally as they course to the uretero-ileal anastomosis. There is a large amount of liquid stool and gas in the proximal colon. Formed stool is seen distending and filling the rectum, question obstipation. Possible fecal impaction. No mural thickening is apparent. There is no evidence of free intraperitoneal air or ascites. No small bowel obstruction features. A normal appendix is seen in the right lower quadrant. CTA chest 12/29/20: No CT evidence of pulmonary embolus. There is no evidence of infiltrate in the lung allison. No active cardiopulmonary disease. Repeat renal US 12/27/20: 1. Moderate hydronephrosis bilaterally, right side greater than left without change. 2. Echogenic kidneys with evidence of renal cortical atrophy 3. Echogenic liver suggests underlying infiltrative process such as fatty infiltration or fibrosis MRI brain with contrast (1/2 dose due to GFR) 12/27/20: Extensive T2 signal hyperintensity throughout the periventricular and deep white matter, with distribution, size, and number unchanged. No enhancement to suggest active demyelination. Overall, moderate burden of disease. CT head: 1. No acute intracranial pathology. Chronic findings. A/P: Bilateral hydronephrosis with recurrent UTI likely 2/2 to large right ovarian mass compressing the distal ureters bilaterally as they course to the uretero- ileal anastomosis -Recurrent fevers, TERRELL could be 2/2 to this issue as well -Improved u/o, Cr increased slightly today. Porter still in place -Repeat renal US and CT abd/pelvis with contrast above -Discussed with urology (Dr. Andre initially and now Dr. Saha ), reinspector (Dr. Garcia) following -For now leaving porter and IVFs, watching Cr. If Cr increases or does not impro ve, may require removal of mass or urological procedure. Please refer to all consultation notes. -F/u daily labs. Providencia UTI, hx of recurrent UTI complicated by problem below -Afebrile since 12/27/20, WBC wnl -UCx above -Currently on IV meropenem, when attempted to switch off patient has spiked fevers -Spoke with Dr. Lobato 12/30/20, would like to keep Meropenem until 01/02/21 (total of 14 days treatment). After this monitor to see if cont treatment is necessary. Constipation -Last bMs 12/29/20 -S/p manual disimpaction and mineral oil enema on 12/29/20 -C/w BR of laxatives and stool softeners, hydration, daily lactulose -C/w encourage fluid hydration Q2H while awake Acute kidney injury on chronic kidney disease -Cr slightly incr to 1.33, baseline is wnl -C/w IVFs at gentle rate , encourage PO intake. -F/u daily labs, avoid nephrotoxic meds Secondary progressive multiple sclerosis -Per neuro, possibly pseudo-exacerbation 2/2 to UTI -Do not treat with steroids unless seen to have active lesion -MRI with gadolinium: no active demyelination -C/w PT/OT for now treatment with abx above Hypokalemia, chronic -K 3.4 today -On daily supplement plus received additinoal 20 mEq -F/u AM labs Hx of torticollis -C/w home baclofen -Stable Chronic pain syndrome -Decreased dose of fentanyl patch to 12.5 mcg Q72H -Chronic pain improved DVT px -Lovenox Resolved issues: Hypernatremia, acute Encephalopathy likely multifactorial 2/2 to UTI and polypharmacy DISPOSITION: C/w workup above. ID,planning consultant, urology consulted to follow. PT/OT. Joey is at bedside and has been updated daily. VS, I&O, 24H, Fishbone Vital Signs/I&O Vital Signs Date Time Temp Pulse Resp B/P (MAP) Pulse Ox O2 Delivery O2 Flow Rate FiO2 12/30/20 16:00 96.9 94 18 153/67 (95) 97 Room Air 12/28/20 20:00 I&O- Last 24 Hours up to 6 AM 12/30/20 06:00 Intake Total 1260 ml Output Total 2800 ml Balance -1540 ml Laboratory Data 24H LABS Laboratory Tests 2 12/30/20 05:13: Nucleated Red Blood Cells % (auto) 0.0, Anion Gap 4L, Glomerular Filtration Rate 44.4L, Calcium Level 8.2L, Total Bilirubin 0.1L, Aspartate Amino Transf (AST/S GOT) 8, Alanine Aminotransferase (ALT/SGPT) 11L, Alkaline Phosphatase 207H, Total Protein 5.5L, Albumin 2.4L, Albumin/Globulin Ratio 0.8L, Carcinoembryonic Antigen 7.6H, CA 19-9 Antigen 18.4, CA 125 Antigen 17.3 CBC/BMP Laboratory Tests 12/30/20 05:13 Microbiology Microbiology 12/27/20 Blood Culture - Preliminary, Resulted No Growth after 72 hours. All specime... 12/27/20 Gram Stain - Final, Complete 12/27/20 CSF Culture - Final, Complete 12/27/20 - Final, Complete 12/27/20 Blood Culture - Preliminary, Resulted No Growth after 72 hours. All specime... 12/25/20 Blood Culture - Preliminary, Resulted No Growth after 72 hours. All specime... 12/25/20 Urine Culture - Final, Complete 12/25/20 Blood Culture - Final, Complete NO GROWTH AFTER 5 DAYS Current Medications Current Medications Medications (Trade) Dose Ordered Sig/Felix Route PRN Reason Start Time Stop Time Status Last Admin Dose Admin Acetaminophen (Tylenol Suppository) 650 mg Q4HP PRN [place] PAIN / FEVER 12/25/20 16:00 12/25/20 16:13 Acetaminophen (Tylenol Tab) 500 mg Q4HP PRN PO PAIN OR FEVER 12/22/20 11:30 12/22/20 11:35 DC Acetaminophen (Tylenol Tab) 650 mg Q4HP PRN PO PAIN OR FEVER 12/22/20 11:30 12/27/20 00:58 Acyclovir (Zovirax) 400 mg BID PO 12/22/20 16:00 12/30/20 09:46 Albuterol Sulfate (Proventil, Ventolin Hfa) 2 puff Q4HP PRN INH SHORTNESS OF BREATH 12/18/20 23:00 Amantadine HCl (Symmetrel) 100 mg BID PO 12/22/20 16:00 12/30/20 09:46 Aripiprazole (AbiLIFY) 2 mg QHS PO 12/22/20 16:00 12/29/20 20:27 Artificial Tears (Akwa Tears) 2 drop TID OU 12/29/20 21:00 12/30/20 16:45 Aspirin (Ecotrin) 81 mg QHS PO 12/26/20 21:00 12/29/20 20:27 Atorvastatin Calcium (Lipitor) 40 mg DAILY PO 12/26/20 09:00 12/30/20 09:34 Baclofen (Lioresal) 40 mg BID PO 12/26/20 09:00 12/30/20 09:37 Dextrose/Sodium Chloride 1,000 ml @ 85 mls/hr [id number] IV 12/25/20 08:00 12/30/20 10:00 DC 12/30/20 03:27 Dextrose/Sodium Chloride 1,000 ml @ 85 mls/hr [id number] IV 12/30/20 10:00 12/30/20 16:46 Dextrose/Sodium Chloride 1,000 ml @ 100 mls/hr Q10H IV 12/18/20 18:30 12/20/20 17:00 DC 12/20/20 16:32 Diatrizoate Meglum/ Diatrizoate Sod (Gastrografin) 10 ml Q30M PO 12/29/20 08:30 12/29/20 09:01 DC 12/29/20 09:57 Docusate Sodium (Colace) 100 mg BID PO 12/26/20 09:00 12/30/20 09:34 Duloxetine HCl (Cymbalta) 60 mg BID PO 12/21/20 11:00 12/30/20 09:38 Enoxaparin Sodium (Lovenox) 30 mg DAILY SC 12/19/20 09:00 12/30/20 09:42 Fentanyl (Duragesic) 12 mcg Q3D TOP 12/27/20 09:00 12/30/20 09:51 Fentanyl (Duragesic) 25 mcg Q3D TOP 12/26/20 09:00 12/27/20 14:01 DC 12/26/20 13:08 Fluticasone Propionate (Flovent Hfa 110 Mcg) 2 puff RBID PRN INH SOB/WHEEZING 12/26/20 11:00 Heparin Sodium (Heparin (Flush)) 500 units ASDIRECTED PRN IV SEE LABEL COMMENTS 12/26/20 19:15 Heparin Sodium (Heparin (Flush)) 500 units DAILY IV 12/27/20 09:00 Home Med (Med Rec Complete!) ASDIRECTED XX 12/18/20 19:00 12/18/20 18:57 DC Hydroxyzine HCl (Atarax) 50 mg BID PO 12/27/20 11:30 12/30/20 09:35 Lactated Ringer's 1,000 ml @ 100 mls/hr Q10H IV 12/22/20 11:00 12/22/20 20:59 DC 12/22/20 11:29 Lactulose (Cephulac) 30 ml DAILY PO 12/27/20 09:00 12/30/20 09:40 Levetiracetam (Keppra) 500 mg BID PO 12/21/20 11:00 12/30/20 09:38 Levetiracetam 500 mg/Dextrose 105 ml @ 420 mls/hr Q12H IV 12/18/20 23:00 12/21/20 10:52 DC 12/20/20 22:55 Levofloxacin (Levaquin) 250 mg DAILY@06 PO 12/25/20 06:00 12/27/20 22:06 DC 12/27/20 04:53 Levothyroxine Sodium (Synthroid) 25 mcg DAILY IV 12/19/20 09:00 12/21/20 16:27 DC 12/21/20 09:07 Levothyroxine Sodium (Synthroid) 50 mcg DAILY@06 PO 12/22/20 06:00 12/30/20 05:43 Magnesium Oxide (Mag-Ox) 400 mg QHS PO 12/26/20 21:00 12/29/20 20:36 Meropenem 1 gm/IV Miscellaneous Supplies 50 ml @ 100 mls/hr Q12H IV 12/21/20 17:00 12/24/20 07:52 DC 12/24/20 04:54 Meropenem 1 gm/IV Miscellaneous Supplies 50 ml @ 100 mls/hr Q8H IV 12/28/20 00:00 12/30/20 16:45 Meropenem 500 mg/ IV Miscellaneous Supplies 50 ml @ 100 mls/hr Q8H IV 12/25/20 17:00 12/27/20 22:10 DC 12/27/20 16:12 Naloxone HCl (Narcan) 0.1 mg Q5MP PRN IV RESP. RATE < 10 12/19/20 04:30 Naloxone HCl (Narcan) 0.4 mg STAT STAT IV 12/18/20 16:56 12/18/20 16:57 DC 12/18/20 16:56 Naloxone HCl (Narcan) 4 mg STAT STAT IV 12/18/20 17:38 12/18/20 17:39 Cancel Naloxone HCl (Narcan) 4 mg STAT STAT IV 12/18/20 17:56 12/18/20 17:57 DC 12/18/20 17:59 Non-Formulary Medication ( See Comment Field Below ) SEE COMMENTS SECTION ASDIRECTED XX 12/26/20 11:15 12/28/20 04:46 Ondansetron HCl (ZOFRAN INJection) 4 mg Q6H IV 12/27/20 10:00 12/30/20 11:58 DC 12/30/20 03:27 Ondansetron HCl (ZOFRAN INJection) 4 mg Q6H PRN IV NAUSEA OR VOMITING 12/30/20 11:45 Pantoprazole Sodium (Protonix) 40 mg BID PO 12/26/20 09:00 12/30/20 09:37 Phenytoin (Dilantin) 400 mg QHS PO 12/21/20 21:00 12/29/20 20:35 Polyethylene Glycol (Miralax) 1 pkt DAILYPRN PRN PO CONSTIPATION 12/26/20 10:45 12/28/20 15:26 Potassium Chloride (Micro-K Extencaps) 10 meq DAILY PO 12/27/20 09:00 12/30/20 09:36 Pregabalin (Lyrica) 300 mg BID PO 12/22/20 16:00 12/30/20 09:39 Promethazine HCl (Phenergan) 25 mg Q4H PRN PO NAUSEA OR VOMITING 12/27/20 10:45 Senna (Senokot) 2 tab QHS PO 12/26/20 21:00 12/29/20 20:35 Sodium Chloride 1,000 ml @ 150 mls/hr Q6H40M IV 12/18/20 17:50 12/18/20 18:18 DC 12/18/20 17:53 Sodium Chloride (Saline Lock Flush) 10 ml ASDIRECTED PRN IV SEE LABEL COMMENTS 12/26/20 19:15 Sodium Chloride (Saline Lock Flush) 10 ml DAILY IV 12/27/20 09:00 Allergies Coded Allergies: Cephalosporins (Verified Allergy, Intermediate, rash, 12/27/19) Sulfa (Sulfonamide Antibiotics) (Verified Allergy, Mild, itchy, 12/27/19) oxycodone (Verified Allergy, Mild, itchy, 12/27/19) hydrocodone (Verified Adverse Reaction, Intermediate, chest pain, 12/27/19) acetaminophen (Verified Adverse Reaction, Mild, NAUSEA, 12/27/19) Veronica Lee MD Dec 30, 2020 17:32
[2020-12-30] MEDS: FLUTICASONE HFA 110 MCG 12 GM INHALER (FLOVENT) INH PRN (19:58)
[2020-12-30 20:00] VITALS: BP 118/65
[2020-12-30] MEDS: ASPIRIN 81 MG ENTERIC TAB PO SCH (20:31)
[2020-12-30] MEDS: SENNA 8.6 MG TAB (SENOKOT) PO SCH (20:33)
[2020-12-30] MEDS: ARIPiprazole 2 MG TAB PO SCH (20:34)
[2020-12-30] MEDS: MAGNESIUM OXIDE 400MG TAB (MAG-OX) PO SCH (20:34)
[2020-12-30] MEDS: PHENYTOIN ER 100 MG CAP PO SCH (20:35)
[2020-12-31] VITALS: BP 128/82
[2020-12-31] MEDS: MEROPENEM INJ 1 GM in IV 1 EA IV SCH ×4 (00:29→23:11)
[2020-12-31] MEDS: LEVOTHYROXINE 50MCG TABLET (0.05MG) PO SCH (05:08)
[2020-12-31] MEDS: D5W/0.45% SODIUM CHLORIDE 1,000 ML IV SCH ×2 (05:08→16:30)
[2020-12-31 05:31] LABS: HEMATOCRIT 29.7 % (36.0-47.0); HEMOGLOBIN 9.2 g/dl (12.0-15.5); MEAN CORPUSCULAR HEMOGLOBIN 27.1 pg (27.0-33.0); MEAN CORPUSCULAR VOLUME 87.4 fl (80.0-96.0); PLATELET COUNT, AUTOMATED 173 10^3/uL (150-450); WHITE BLOOD COUNT 5.1 10^3/uL (4.0-10.0)
[2020-12-31 06:02] LABS: ALBUMIN 2.7 GM/DL (3.2-5.2); BILIRUBIN,TOTAL 0.2 MG/DL (0.2-1.0); CALCIUM LEVEL 8.3 MG/DL (8.5-10.1); CREATININE FOR GFR 1.37 MG/DL (0.55-1.30); GLOMERULAR FILTRATION RATE 42.9 (>51); POTASSIUM SERUM 4.1 MEQ/L (3.5-5.1); TOTAL PROTEIN 5.5 GM/DL (6.4-8.2)
[2020-12-31] MEDS: ACETAMINOPHEN TAB 650MG DOSE (2X325MG) PO PRN (06:53)
[2020-12-31] MEDS: FLUTICASONE HFA 110 MCG 12 GM INHALER (FLOVENT) INH PRN (07:20)
[2020-12-31 08:00] VITALS: BP 135/76
[2020-12-31] MEDS: SODIUM CHLORIDE 0.9% INJ 10 ML SYR IV SCH (09:00)
[2020-12-31] MEDS: hydrOXYzine 50 MG TAB PO SCH ×2 (09:36→21:00)
[2020-12-31] MEDS: BACLOFEN 10 MG TAB PO SCH ×2 (09:36→21:00)
[2020-12-31] MEDS: PANTOPRAZOLE 40MG TAB (PROTONIX) PO SCH ×2 (09:36→21:00)
[2020-12-31] MEDS: ENOXAPARIN 30MG/0.3ML SYRINGE (J1650 PER 10MG) SC SCH (09:36)
[2020-12-31] MEDS: levETIRAcetam 250MG TABLET (KEPPRA) PO SCH ×2 (09:36→21:00)
[2020-12-31] MEDS: LACTULOSE 20 GM/30 ML SYRUP UD PO SCH (09:36)
[2020-12-31] MEDS: PREGABALIN 100 MG CAP (LYRICA) PO SCH ×2 (09:36→21:00)
[2020-12-31] MEDS: ACYCLOVIR 200 MG CAPSULE PO SCH ×2 (09:37→21:00)
[2020-12-31] MEDS: ATORVASTATIN 20 MG TAB PO SCH (09:37)
[2020-12-31] MEDS: AMANTADINE 100MG TABLET PO SCH ×2 (09:37→21:00)
[2020-12-31] MEDS: DOCUSATE SODIUM 100MG CAPSULE PO SCH ×2 (09:37→21:00)
[2020-12-31] MEDS: DULoxetine 30 MG CAP (CYMBALTA) PO SCH ×2 (09:37→21:00)
[2020-12-31] MEDS: POLYVINYL ALCOHOL OPHTH SOLN 15 ML(LIQUITEARS) OU SCH ×3 (09:37→21:00)
[2020-12-31] MEDS: POTASSIUM CHLORIDE 10 MEQ SR TABLET PO SCH (09:37)
--- NOTE | 2020-12-31 10:15 | IPNPDOC ---
Text Note Date of Service The patient was seen on 12/31/20. NOTE SUBJECTIVE: Patient seen and examined at bedside. No acute overnight events reported. Patient has no new medical complaints this morning. Objective: VITAL SIGNS: Please see below GENERAL APPEARANCE: Lying comfortably in bed HEENT: NC/AT, EOMI LUNGS: CTAB CVS: +S1S2, no M/R/G ABDOMEN: urine bag in place now with porter cath inside in RUQ, obese, Soft, slightly distended, BS + in 4 quad EXTREMITIES: +1 pitting edema in the lower ext A/P: #Bilateral hydronephrosis - in the setting of recurrent UTI - further complicated with large right ovarian mass compressing the distal ureters bilaterally as they course to the uretero-ileal anastomosis - porter in place - -Discussed with urology (Dr. Andre initially and now Dr. Saha ), physiognomist (Dr. Garcia) following -For now leaving porter and IVFs, watching Cr. If Cr increases or does not improve, may require removal of mass or urological procedure. Please refer to all consultation notes. #Providencia UTI, hx of recurrent UTI complicated by problem below -Afebrile since 12/27/20, WBC wnl -UCx above -Currently on IV meropenem, when attempted to switch off patient has spiked fevers -Spoke with Dr. Lobato 12/30/20, would like to keep Meropenem until 01/02/21 (total of 14 days treatment). After this monitor to see if cont treatment is necessary. #Constipation -S/p manual disimpaction and mineral oil enema on 12/29/20 -C/w BR of laxatives and stool softeners, hydration, daily lactulose -C/w encourage fluid hydration Q2H while awake #Acute kidney injury on chronic kidney disease -Cr trending up -C/w IVFs at gentle rate , encourage PO intake. -F/u daily labs, avoid nephrotoxic meds #Secondary progressive multiple sclerosis -Per neuro, possibly pseudo-exacerbation 2/2 to UTI -Do not treat with steroids unless seen to have active lesion -MRI with gadolinium: no active demyelination -C/w PT/OT for now treatment with abx above #Hypokalemia, chronic -continue to follow and replete as needed #Hx of torticollis -C/w home baclofen -Stable #Chronic pain syndrome -Decreased dose of fentanyl patch to 12.5 mcg Q72H -Chronic pain improved #DVT px -Lovenox Resolved issues: Hypernatremia, acute Encephalopathy likely multifactorial 12/31 to UTI and polypharmacy DISPOSITION: C/w workup above. ID,instrument inspector, 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 PT/OT. Joey is at bedside and has been updated daily. Abx until 01/02/21 - anticipating possible discharge to ARU 01/02 or 01/03. VS,Fishbone, I+O VS, Fishbone, I+O Laboratory Tests 12/31/20 05:15 Vital Signs Date Time Temp Pulse Resp B/P (MAP) Pulse Ox O2 Delivery O2 Flow Rate FiO2 12/31/20 08:00 99.2 75 18 135/76 (95) 98 Room Air 12/28/20 20:00 I&O- Last 24 Hours up to 6 AM 12/31/20 06:00 Intake Total 1865 ml Output Total 2750 ml Balance -885 ml ISABEL GRAHAM MD Dec 31, 2020 10:15
[2020-12-31 12:00] VITALS: BP 112/64
[2020-12-31 16:00] VITALS: BP 134/82
[2020-12-31] MEDS ORDERED: MORPHINE SULFATE ORAL SOLN 10 MG/5 ML UD PO PRN (17:30)
[2020-12-31] MEDS: FENTANYL REMOVAL DOCUMENTATION MISC XX SCH (18:58)
[2020-12-31 19:11] LABS: ABG BASE EXCESS -1.2 (-2.0-2.0); ABG HCO3 23.6 MEQ/L (22.0-26.0); ABG O2 SATURATION 97.9 % (95.0-99.0); ABG PARTIAL PRESSURE CO2 39.8 mmHg (35.0-45.0); ABG PARTIAL PRESSURE O2 103.9 mmHg (75.0-100.0); ABG STANDARD HCO3 23.5 MEQ/L (22.0-26.0); ABG TOTAL CO2 24.8 MEQ/L (22.0-29.0); ABG pH (ARTERIAL) 7.391 UNITS (7.350-7.450)
[2020-12-31 19:40] VITALS: BP 128/81
[2020-12-31] MEDS ORDERED: NALOXONE INJ 0.4MG/1ML VIAL (J2310 PER 1MG) IV STA (19:49)
[2020-12-31] MEDS ORDERED: NALOXONE 2MG/2ML SYRINGE (J2310 PER 1MG) IV STA (20:01)
[2020-12-31] MEDS: PHENYTOIN ER 100 MG CAP PO SCH (21:00)
[2020-12-31] MEDS: ASPIRIN 81 MG ENTERIC TAB PO SCH (21:00)
[2020-12-31] MEDS: MAGNESIUM OXIDE 400MG TAB (MAG-OX) PO SCH (21:00)
[2020-12-31] MEDS: ARIPiprazole 2 MG TAB PO SCH (21:00)
[2020-12-31] MEDS: SENNA 8.6 MG TAB (SENOKOT) PO SCH (21:00)
[2021-01-01] VITALS: BP 131/73
[2021-01-01 04:00] VITALS: BP 130/70
[2021-01-01 05:39] LABS: HEMATOCRIT 29.3 % (36.0-47.0); HEMOGLOBIN 8.9 g/dl (12.0-15.5); MEAN CORPUSCULAR HEMOGLOBIN 26.6 pg (27.0-33.0); MEAN CORPUSCULAR HGB CONC 30.4 g/dl (32.0-36.5); MEAN CORPUSCULAR VOLUME 87.7 fl (80.0-96.0); PLATELET COUNT, AUTOMATED 186 10^3/uL (150-450); RED BLOOD COUNT 3.34 10^6/uL (4.00-5.40); WHITE BLOOD COUNT 4.5 10^3/uL (4.0-10.0)
[2021-01-01 06:03] LABS: CALCIUM LEVEL 8.2 MG/DL (8.5-10.1); CREATININE FOR GFR 1.35 MG/DL (0.55-1.30); GLOMERULAR FILTRATION RATE 43.7 (>51); POTASSIUM SERUM 4.2 MEQ/L (3.5-5.1)
[2021-01-01] MEDS: LEVOTHYROXINE 50MCG TABLET (0.05MG) PO SCH (06:24)
[2021-01-01] MEDS: ACETAMINOPHEN TAB 650MG DOSE (2X325MG) PO PRN (06:25)
[2021-01-01] MEDS: D5W/0.45% SODIUM CHLORIDE 1,000 ML IV SCH ×2 (06:36→17:44)
[2021-01-01 08:00] VITALS: BP 121/83
[2021-01-01] MEDS: MEROPENEM INJ 1 GM in IV 1 EA IV SCH ×3 (08:58→23:24)
[2021-01-01] MEDS: LACTULOSE 20 GM/30 ML SYRUP UD PO SCH (08:58)
[2021-01-01] MEDS: ATORVASTATIN 20 MG TAB PO SCH (08:59)
[2021-01-01] MEDS: ENOXAPARIN 30MG/0.3ML SYRINGE (J1650 PER 10MG) SC SCH (08:59)
[2021-01-01] MEDS: BACLOFEN 10 MG TAB PO SCH ×2 (08:59→20:12)
[2021-01-01] MEDS: DULoxetine 30 MG CAP (CYMBALTA) PO SCH ×2 (08:59→20:13)
[2021-01-01] MEDS: DOCUSATE SODIUM 100MG CAPSULE PO SCH ×2 (08:59→20:15)
[2021-01-01] MEDS: ACYCLOVIR 200 MG CAPSULE PO SCH ×2 (08:59→20:14)
[2021-01-01] MEDS: AMANTADINE 100MG TABLET PO SCH ×2 (09:00→20:13)
[2021-01-01] MEDS: PANTOPRAZOLE 40MG TAB (PROTONIX) PO SCH ×2 (09:00→20:15)
[2021-01-01] MEDS: levETIRAcetam 250MG TABLET (KEPPRA) PO SCH ×2 (09:00→20:15)
[2021-01-01] MEDS: POTASSIUM CHLORIDE 10 MEQ SR TABLET PO SCH (09:00)
[2021-01-01] MEDS: SODIUM CHLORIDE 0.9% INJ 10 ML SYR IV SCH (09:00)
[2021-01-01] MEDS: POLYVINYL ALCOHOL OPHTH SOLN 15 ML(LIQUITEARS) OU SCH ×3 (09:14→20:16)
--- NOTE | 2021-01-01 11:11 | IPNPDOC ---
Text Note Date of Service The patient was seen on 01/01/21. NOTE SUBJECTIVE: Patient seen and examined at bedside. Overnight patient was quite lethargic, responded to Narcan. This morning her mentation has improved, vitals stable. at bedside. Extensive discussion at bedside. Objective: VITAL SIGNS: Please see below GENERAL APPEARANCE: Lying comfortably in bed HEENT: NC/AT, EOMI LUNGS: CTAB CVS: +S1S2, no M/R/G ABDOMEN: urine bag in place now with porter cath inside in RUQ, obese, Soft, slightly distended, BS + in 4 quad EXTREMITIES: +1 pitting edema in the lower ext A/P: #metabolic encephalopathy - in the setting of acute renal failure and UTI - complicated with polypharmacy/sedative medications #lethargy/bradypnea - holding all narcotics/sedatives again - similar to admitting presentation - no fentanyl - will re-introduce her pain meds gradually again #Bilateral hydronephrosis - in the setting of recurrent UTI - further complicated with large right ovarian mass compressing the distal ureters bilaterally as they course to the uretero-ileal anastomosis - porter in place - -Discussed with urology (Dr. Andre initially and now Dr. Saha ), patient safety coordinator (Dr. Garcia) following -For now leaving porter and IVFs, watching Cr. If Cr increases or does not improve, may require removal of mass or urological procedure. Please refer to all consultation notes. #Providencia UTI, hx of recurrent UTI complicated by problem below -Afebrile since 12/27/20, WBC wnl -UCx above -Currently on IV meropenem, when attempted to switch off patient has spiked fevers -Spoke with Dr. Loabto 12/30/20, would like to keep Meropenem until 01/02/21 (total of 14 days treatment). After this monitor to see if cont treatment is necessary. #Constipation -S/p manual disimpaction and mineral oil enema on 12/29/20 -C/w BR of laxatives and stool softeners, hydration, daily lactulose -C/w encourage fluid hydration Q2H while awake #Acute kidney injury on chronic kidney disease -grossly stable -C/w IVFs at gentle rate , encourage PO intake. -F/u daily labs, avoid nephrotoxic meds #Secondary progressive multiple sclerosis -Per neuro, possibly pseudo-exacerbation 2/ to UTI -Do not treat with steroids unless seen to have active lesion -MRI with gadolinium: no active demyelination -C/w PT/OT for now treatment with abx above #Hypokalemia, chronic -continue to follow and replete as needed #Hx of torticollis -C/w home baclofen -Stable #Chronic pain syndrome -as above - analgesics on hold - avoid fentanyl #DVT px -Lovenox DISPOSITION: Pending further clinical improvement. ID,solvent station attendant, 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 PT/OT. Joey is at bedside and has been updated daily. Abx until 01/02/21 - anticipating possible discharge to ARU. VS,Fishbone, I+O VS, Fishbone, I+O Laboratory Tests 01/01/21 05:19 Vital Signs Date Time Temp Pulse Resp B/P (MAP) Pulse Ox O2 Delivery O2 Flow Rate FiO2 01/01/21 08:00 98.8 86 16 121/83 (96) 95 Room Air 01/01/21 00:00 6.0 28 I&O- Last 24 Hours up to 6 AM 01/01/21 05:59 Intake Total 1941 ml Output Total 2850 ml Balance -909 ml ISABEL GRAHAM MD Jan 01, 2021 11:11
[2021-01-01 12:00] VITALS: BP 111/58
[2021-01-01] MEDS: ONDANSETRON 4MG/2ML VIAL IV PRN (12:23)
[2021-01-01 16:00] VITALS: BP 111/78
[2021-01-01 20:00] VITALS: BP 108/65
[2021-01-01] MEDS: ASPIRIN 81 MG ENTERIC TAB PO SCH (20:11)
[2021-01-01] MEDS: SENNA 8.6 MG TAB (SENOKOT) PO SCH (20:11)
[2021-01-01] MEDS: ARIPiprazole 2 MG TAB PO SCH (20:15)
[2021-01-01] MEDS: MAGNESIUM OXIDE 400MG TAB (MAG-OX) PO SCH (20:15)
[2021-01-01] MEDS: PHENYTOIN ER 100 MG CAP PO SCH (20:16)
[2021-01-02] MEDS: ACETAMINOPHEN TAB 650MG DOSE (2X325MG) PO PRN (01:42)
[2021-01-02 04:00] VITALS: BP 126/70
[2021-01-02 05:27] LABS: HEMATOCRIT 28.5 % (36.0-47.0); HEMOGLOBIN 8.7 g/dl (12.0-15.5); MEAN CORPUSCULAR HEMOGLOBIN 26.6 pg (27.0-33.0); MEAN CORPUSCULAR HGB CONC 30.5 g/dl (32.0-36.5); MEAN CORPUSCULAR VOLUME 87.2 fl (80.0-96.0); PLATELET COUNT, AUTOMATED 191 10^3/uL (150-450); RED BLOOD COUNT 3.27 10^6/uL (4.00-5.40); WHITE BLOOD COUNT 5.7 10^3/uL (4.0-10.0)
[2021-01-02 05:45] LABS: CALCIUM LEVEL 8.2 MG/DL (8.5-10.1); CREATININE FOR GFR 1.37 MG/DL (0.55-1.30); GLOMERULAR FILTRATION RATE 42.9 (>51); POTASSIUM SERUM 3.9 MEQ/L (3.5-5.1)
[2021-01-02] MEDS: LEVOTHYROXINE 50MCG TABLET (0.05MG) PO SCH (06:01)
[2021-01-02] MEDS: D5W/0.45% SODIUM CHLORIDE 1,000 ML IV SCH (06:01)
[2021-01-02 08:19] VITALS: BP 131/79
[2021-01-02] MEDS: DOCUSATE SODIUM 100MG CAPSULE PO SCH ×2 (08:57→20:59)
[2021-01-02] MEDS: PANTOPRAZOLE 40MG TAB (PROTONIX) PO SCH ×2 (08:57→20:59)
[2021-01-02] MEDS: BACLOFEN 10 MG TAB PO SCH ×2 (08:57→20:58)
[2021-01-02] MEDS: ATORVASTATIN 20 MG TAB PO SCH (08:57)
[2021-01-02] MEDS: levETIRAcetam 250MG TABLET (KEPPRA) PO SCH ×2 (08:58→20:57)
[2021-01-02] MEDS: MEROPENEM INJ 1 GM in IV 1 EA IV SCH ×2 (08:58→16:00)
[2021-01-02] MEDS: DULoxetine 30 MG CAP (CYMBALTA) PO SCH ×2 (08:58→20:56)
[2021-01-02] MEDS: ACYCLOVIR 200 MG CAPSULE PO SCH ×2 (08:58→20:58)
[2021-01-02] MEDS: LACTULOSE 20 GM/30 ML SYRUP UD PO SCH (08:58)
[2021-01-02] MEDS: POTASSIUM CHLORIDE 10 MEQ SR TABLET PO SCH (08:58)
[2021-01-02] MEDS: POLYVINYL ALCOHOL OPHTH SOLN 15 ML(LIQUITEARS) OU SCH ×3 (08:59→20:59)
[2021-01-02] MEDS: SODIUM CHLORIDE 0.9% INJ 10 ML SYR IV SCH (08:59)
[2021-01-02] MEDS: ENOXAPARIN 30MG/0.3ML SYRINGE (J1650 PER 10MG) SC SCH (08:59)
--- NOTE | 2021-01-02 11:07 | IPNPDOC ---
Text Note Date of Service The patient was seen on 01/02/21. NOTE SUBJECTIVE: Patient seen and examined at bedside. Much improved today. Patient and feel she is essentially back to baseline. Notes her chronic pain which she rates as 4-5/10. No other medical complaints. Objective: VITAL SIGNS: Please see below GENERAL APPEARANCE: Lying comfortably in bed HEENT: NC/AT, EOMI LUNGS: CTAB CVS: +S1S2, no M/R/G ABDOMEN: urine bag in place now with porter cath inside in RUQ, obese, Soft, slightly distended, BS + in 4 quad EXTREMITIES: +1 peripheral edema A/P: #metabolic encephalopathy - resolved - in the setting of acute renal failure and UTI - complicated with polypharmacy/sedative medications #lethargy/bradypnea - resolved - holding all narcotics/sedatives again - similar to admitting presentation - no fentanyl - will re-introduce her pain meds gradually again #Bilateral hydronephrosis - in the setting of recurrent UTI - further complicated with large right ovarian mass compressing the distal ureters bilaterally as they course to the uretero-ileal anastomosis - porter in place - -Discussed with urology (Dr. Andre initially and now Dr. Saha ), donor services manager (Dr. Garcia) following -For now leaving porter, watching Cr. If Cr increases or does not improve, may require removal of mass or urological procedure. Please refer to all consultation notes. #Providencia UTI, hx of recurrent UTI complicated by problem below -Afebrile since 12/27/20, WBC wnl -UCx above -Currently on IV meropenem, when attempted to switch off patient has spiked fevers -Spoke with Dr. Lobato 12/30/20, would like to keep Meropenem until 01/02/21 - today is last day - (total of 14 days treatment). After this monitor to see if cont treatment is necessary. #Constipation -S/p manual disimpaction and mineral oil enema on 12/29/20 -C/w BR of laxatives and stool softeners, hydration, daily lactulose -C/w encourage fluid hydration Q2H while awake #Acute kidney injury on chronic kidney disease -grossly stable - encourage PO intake. -F/u daily labs, avoid nephrotoxic meds #Secondary progressive multiple sclerosis -Per neuro, possibly pseudo-exacerbation 2/2 to UTI -Do not treat with steroids unless seen to have active lesion -MRI with gadolinium: no active demyelination -C/w PT/OT for now treatment with abx above #Hypokalemia, chronic -continue to follow and replete as needed #Hx of torticollis -C/w home baclofen -Stable #Chronic pain syndrome -as above - analgesics on hold - avoid fentanyl #DVT px -Lovenox DISPOSITION: ID,hot molder, 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 PT/OT. Joey is at bedside and has been updated daily. D/c abx today. transfer to med/surg, ARU screen. VS,Fishbone, I+O VS, Fishbone, I+O Laboratory Tests 01/02/21 05:16 Vital Signs Date Time Temp Pulse Resp B/P (MAP) Pulse Ox O2 Delivery O2 Flow Rate FiO2 01/02/21 08:19 97.9 89 20 131/79 (96) 98 Room Air 01/01/21 00:00 6.0 28 I&O- Last 24 Hours up to 6 AM 01/02/21 06:00 Intake Total 1555 ml Output Total 2525 ml Balance -970 ml ISABEL GRAHAM MD Jan 02, 2021 11:07
[2021-01-02] MEDS: AMANTADINE 100MG TABLET PO SCH ×2 (13:00→20:58)
[2021-01-02 15:53] VITALS: BP 119/74
[2021-01-02 20:00] VITALS: BP 122/78
[2021-01-02] MEDS: SENNA 8.6 MG TAB (SENOKOT) PO SCH ×2 (20:57→21:00)
[2021-01-02] MEDS: ASPIRIN 81 MG ENTERIC TAB PO SCH (20:57)
[2021-01-02] MEDS: MAGNESIUM OXIDE 400MG TAB (MAG-OX) PO SCH (20:57)
[2021-01-02] MEDS: PHENYTOIN ER 100 MG CAP PO SCH (20:58)
[2021-01-02] MEDS: ARIPiprazole 2 MG TAB PO SCH (20:58)
[2021-01-03 04:00] VITALS: BP 140/82
[2021-01-03] MEDS: LEVOTHYROXINE 50MCG TABLET (0.05MG) PO SCH (05:03)
[2021-01-03 06:51] LABS: HEMATOCRIT 29.7 % (36.0-47.0); HEMOGLOBIN 9.3 g/dl (12.0-15.5); MEAN CORPUSCULAR HEMOGLOBIN 26.8 pg (27.0-33.0); MEAN CORPUSCULAR HGB CONC 31.3 g/dl (32.0-36.5); MEAN CORPUSCULAR VOLUME 85.6 fl (80.0-96.0); PLATELET COUNT, AUTOMATED 214 10^3/uL (150-450); RED BLOOD COUNT 3.47 10^6/uL (4.00-5.40); WHITE BLOOD COUNT 7.5 10^3/uL (4.0-10.0)
[2021-01-03 07:51] VITALS: BP 123/77
[2021-01-03] MEDS: POTASSIUM CHLORIDE 10 MEQ SR TABLET PO SCH (08:38)
[2021-01-03] MEDS: BACLOFEN 10 MG TAB PO SCH ×2 (08:38→21:08)
[2021-01-03 08:39] LABS: CALCIUM LEVEL 8.7 MG/DL (8.5-10.1); CREATININE FOR GFR 1.31 MG/DL (0.55-1.30); GLOMERULAR FILTRATION RATE 45.2 (>51); POTASSIUM SERUM 3.8 MEQ/L (3.5-5.1)
[2021-01-03] MEDS: DULoxetine 30 MG CAP (CYMBALTA) PO SCH ×2 (08:39→21:07)
[2021-01-03] MEDS: PANTOPRAZOLE 40MG TAB (PROTONIX) PO SCH ×2 (08:39→21:08)
[2021-01-03] MEDS: AMANTADINE 100MG TABLET PO SCH ×2 (08:39→21:08)
[2021-01-03] MEDS: ATORVASTATIN 20 MG TAB PO SCH (08:39)
[2021-01-03] MEDS: ACYCLOVIR 200 MG CAPSULE PO SCH ×2 (08:39→21:07)
[2021-01-03] MEDS: levETIRAcetam 250MG TABLET (KEPPRA) PO SCH ×2 (08:39→21:09)
[2021-01-03] MEDS: ENOXAPARIN 30MG/0.3ML SYRINGE (J1650 PER 10MG) SC SCH (08:40)
[2021-01-03] MEDS: DOCUSATE SODIUM 100MG CAPSULE PO SCH (08:40)
[2021-01-03] MEDS: LACTULOSE 20 GM/30 ML SYRUP UD PO SCH (08:40)
[2021-01-03] MEDS: SODIUM CHLORIDE 0.9% INJ 10 ML SYR IV SCH (08:41)
[2021-01-03] MEDS: POLYVINYL ALCOHOL OPHTH SOLN 15 ML(LIQUITEARS) OU SCH ×3 (08:42→21:09)
--- NOTE | 2021-01-03 10:14 | IPNPDOC ---
Text Note Date of Service The patient was seen on 01/03/21. NOTE SUBJECTIVE: Patient seen and examined at bedside. Patient and feel she is back to baseline. Notes her chronic pain which she rates as 4-5/10. No other medical complaints. Opted to hold off on pain meds for now. Objective: VITAL SIGNS: Please see below GENERAL APPEARANCE: Lying comfortably in bed, eating breakfast HEENT: NC/AT, EOMI LUNGS: CTAB CVS: +S1S2, no M/R/G ABDOMEN: urine bag in place now with porter cath inside in RUQ, obese, Soft, slightly distended, BS + in 4 quad EXTREMITIES: +1 peripheral edema A/P: #metabolic encephalopathy - resolved - in the setting of acute renal failure and UTI - complicated with polypharmacy/sedative medications #lethargy/bradypnea - resolved - holding all narcotics/sedatives again - similar to admitting presentation - no fentanyl - will re-introduce her pain meds gradually again #Bilateral hydronephrosis - in the setting of recurrent UTI - further complicated with large right ovarian mass compressing the distal ureters bilaterally as they course to the uretero-ileal anastomosis - porter in place - -Discussed with urology (Dr. Andre initially and now Dr. Saha ), lightning protection installer (Dr. Garcia) following -For now leaving porter, watching Cr. If Cr increases or does not improve, may require removal of mass or urological procedure. Please refer to all consultation notes. #Providencia UTI, hx of recurrent UTI complicated by problem below -Afebrile since 12/27/20, WBC wnl -UCx above -Currently on IV meropenem, when attempted to switch off patient has spiked fevers -Spoke with Dr. Lobato 12/30/20, would like to keep Meropenem until 01/02/21 - today is last day - (total of 14 days treatment). After this monitor to see if cont treatment is necessary. #diarrhea - hold lactulose, colace, senna - check for CDiff, stool for polys #Acute kidney injury on chronic kidney disease -grossly stable - encourage PO intake. -F/u daily labs, avoid nephrotoxic meds #Secondary progressive multiple sclerosis -Per neuro, possibly pseudo-exacerbation 2/2 to UTI -Do not treat with steroids unless seen to have active lesion -MRI with gadolinium: no active demyelination -C/w PT/OT for now treatment with abx above #Hypokalemia, chronic -continue to follow and replete as needed #Hx of torticollis -C/w home baclofen -Stable #Chronic pain syndrome -as above - analgesics on hold - avoid fentanyl #DVT px -Lovenox DISPOSITION: ID,quarter supervisor, 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 PT/OT. Joey is at bedside and has been updated daily. Possible ARU VS,Fishbone, I+O VS, Fishbone, I+O Laboratory Tests 01/03/21 05:04 01/03/21 06:32 Vital Signs Date Time Temp Pulse Resp B/P (MAP) Pulse Ox O2 Delivery O2 Flow Rate FiO2 01/03/21 07:51 97.4 87 18 123/77 (92) 96 Room Air 01/01/21 00:00 6.0 28 I&O- Last 24 Hours up to 6 AM 01/03/21 06:00 Intake Total 600 ml Output Total 2750 ml Balance -2150 ml ISABEL GRAHAM MD Jan 03, 2021 10:14
[2021-01-03] MEDS: ACETAMINOPHEN TAB 650MG DOSE (2X325MG) PO PRN ×2 (11:12→21:09)
[2021-01-03 21:00] VITALS: BP 139/92
[2021-01-03] MEDS: ARIPiprazole 2 MG TAB PO SCH (21:08)
[2021-01-03] MEDS: ASPIRIN 81 MG ENTERIC TAB PO SCH (21:08)
[2021-01-03] MEDS: MAGNESIUM OXIDE 400MG TAB (MAG-OX) PO SCH (21:09)
[2021-01-03] MEDS: PHENYTOIN ER 100 MG CAP PO SCH (21:46)
[2021-01-04] MEDS: LEVOTHYROXINE 50MCG TABLET (0.05MG) PO SCH (05:12)
[2021-01-04] MEDS: ACETAMINOPHEN TAB 650MG DOSE (2X325MG) PO PRN ×2 (05:12→21:57)
[2021-01-04 06:00] VITALS: BP 140/92
[2021-01-04 07:13] LABS: HEMATOCRIT 29.4 % (36.0-47.0); HEMOGLOBIN 9.1 g/dl (12.0-15.5); MEAN CORPUSCULAR HEMOGLOBIN 26.5 pg (27.0-33.0); MEAN CORPUSCULAR VOLUME 85.7 fl (80.0-96.0); PLATELET COUNT, AUTOMATED 204 10^3/uL (150-450); RED BLOOD COUNT 3.43 10^6/uL (4.00-5.40); WHITE BLOOD COUNT 5.1 10^3/uL (4.0-10.0)
[2021-01-04 07:46] LABS: CALCIUM LEVEL 8.7 MG/DL (8.5-10.1); CREATININE FOR GFR 1.31 MG/DL (0.55-1.30); GLOMERULAR FILTRATION RATE 45.2 (>51); POTASSIUM SERUM 3.8 MEQ/L (3.5-5.1)
[2021-01-04] MEDS: ENOXAPARIN 30MG/0.3ML SYRINGE (J1650 PER 10MG) SC SCH (08:02)
[2021-01-04] MEDS: SODIUM CHLORIDE 0.9% INJ 10 ML SYR IV SCH (08:02)
[2021-01-04] MEDS: ONDANSETRON 4MG/2ML VIAL IV PRN (08:02)
[2021-01-04] MEDS: AMANTADINE 100MG TABLET PO SCH ×2 (08:03→21:54)
[2021-01-04] MEDS: DULoxetine 30 MG CAP (CYMBALTA) PO SCH ×2 (08:03→21:56)
[2021-01-04] MEDS: POLYVINYL ALCOHOL OPHTH SOLN 15 ML(LIQUITEARS) OU SCH ×3 (08:03→21:57)
[2021-01-04] MEDS: levETIRAcetam 250MG TABLET (KEPPRA) PO SCH ×2 (08:03→21:56)
[2021-01-04] MEDS: ATORVASTATIN 20 MG TAB PO SCH (08:03)
[2021-01-04] MEDS: PANTOPRAZOLE 40MG TAB (PROTONIX) PO SCH ×2 (08:03→21:56)
[2021-01-04] MEDS: BACLOFEN 10 MG TAB PO SCH ×2 (08:03→21:55)
[2021-01-04] MEDS: ACYCLOVIR 200 MG CAPSULE PO SCH ×2 (08:04→21:55)
[2021-01-04] MEDS: POTASSIUM CHLORIDE 10 MEQ SR TABLET PO SCH (08:04)
--- NOTE | 2021-01-04 10:41 | IPNPDOC ---
Text Note Date of Service The patient was seen on 01/04/21. NOTE SUBJECTIVE: Patient seen and examined at bedside. Patient and feel she is back to baseline. Notes her chronic pain which she rates today as 05/08. No other medical complaints. Opted to resume lyrica at lower dosage. Objective: VITAL SIGNS: Please see below GENERAL APPEARANCE: Lying comfortably in bed, eating breakfast HEENT: NC/AT, EOMI LUNGS: CTAB CVS: +S1S2, no M/R/G ABDOMEN: urine bag in place now with porter cath inside in RUQ, obese, Soft, slightly distended, BS + in 4 quad EXTREMITIES: +1 peripheral edema A/P: #metabolic encephalopathy - resolved - in the setting of acute renal failure and UTI - complicated with polypharmacy/sedative medications #lethargy/bradypnea - resolved - no fentanyl - will re-introduce her pain meds gradually again - starting lyrica 150 BID #Bilateral hydronephrosis - in the setting of recurrent UTI - further complicated with large right ovarian mass compressing the distal ureters bilaterally as they course to the uretero-ileal anastomosis - porter in place - -Discussed with urology (Dr. Andre initially and now Dr. Saha ), turn sewer (Dr. Garcia) following -For now leaving porter, watching Cr. If Cr increases or does not improve, may require removal of mass or urological procedure. Please refer to all consulta tion notes. #Providencia UTI, hx of recurrent UTI complicated by problem below -Afebrile since 12/27/20, WBC wnl -UCx above -completed 14 days of meropenem as per ID - will resume weekly prophylactic fosfomycin #diarrhea - improving #Acute kidney injury on chronic kidney disease -resolved - encourage PO intake. 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 PT/OT. Joey is at bedside and has been updated daily. Possible ARU VS,Rafael, I+O VS, Maritae, I+O Laboratory Tests 01/04/21 06:59 Vital Signs Date Time Temp Pulse Resp B/P (MAP) Pulse Ox O2 Delivery O2 Flow Rate FiO2 01/04/21 06:00 98.4 88 20 140/92 (108) 96 Room Air 01/01/21 00:00 6.0 28 I&O- Last 24 Hours up to 6 AM 01/04/21 06:00 Intake Total 1010 ml Output Total 1700 ml Balance -690 ml ISABEL GRAHAM MD Jan 04, 2021 10:41
[2021-01-04] MEDS: PREGABALIN 75 MG CAP(LYRICA) PO SCH ×2 (11:14→21:54)
[2021-01-04] MEDS: hydrOXYzine 25 MG TAB PO PRN ×2 (11:14→21:55)
[2021-01-04 14:00] VITALS: BP 142/91
[2021-01-04] MEDS: FOSFOMYCIN TROMETHAMINE 3 GM POWDER PACKET (MONUROL) PO SCH (16:40)
[2021-01-04] MEDS: ASPIRIN 81 MG ENTERIC TAB PO SCH (21:56)
[2021-01-04] MEDS: MAGNESIUM OXIDE 400MG TAB (MAG-OX) PO SCH (21:56)
[2021-01-04] MEDS: ARIPiprazole 2 MG TAB PO SCH (21:56)
[2021-01-04 22:00] VITALS: BP 120/76
[2021-01-04] MEDS: PHENYTOIN ER 100 MG CAP PO SCH (22:48)
[2021-01-05] MEDS: ACETAMINOPHEN TAB 650MG DOSE (2X325MG) PO PRN ×2 (05:14→21:34)
[2021-01-05] MEDS: LEVOTHYROXINE 50MCG TABLET (0.05MG) PO SCH (05:14)
[2021-01-05] MEDS: hydrOXYzine 25 MG TAB PO PRN ×3 (05:14→21:32)
[2021-01-05 06:00] VITALS: BP_SYST 108; BP_SYST 120; BP_DIAS 44; BP_DIAS 63
[2021-01-05 07:14] LABS: CALCIUM LEVEL 8.2 MG/DL (8.5-10.1); CREATININE FOR GFR 1.43 MG/DL (0.55-1.30); GLOMERULAR FILTRATION RATE 40.9 (>51)
[2021-01-05] MEDS: ENOXAPARIN 30MG/0.3ML SYRINGE (J1650 PER 10MG) SC SCH (09:08)
[2021-01-05] MEDS: PREGABALIN 75 MG CAP(LYRICA) PO SCH ×2 (09:09→21:31)
[2021-01-05] MEDS: AMANTADINE 100MG TABLET PO SCH ×2 (09:09→21:34)
[2021-01-05] MEDS: DULoxetine 30 MG CAP (CYMBALTA) PO SCH ×2 (09:09→21:32)
[2021-01-05] MEDS: PANTOPRAZOLE 40MG TAB (PROTONIX) PO SCH ×2 (09:09→21:32)
[2021-01-05] MEDS: SODIUM CHLORIDE 0.9% INJ 10 ML SYR IV SCH (09:09)
[2021-01-05] MEDS: ATORVASTATIN 20 MG TAB PO SCH (09:09)
[2021-01-05] MEDS: levETIRAcetam 250MG TABLET (KEPPRA) PO SCH ×2 (09:09→21:31)
[2021-01-05] MEDS: POTASSIUM CHLORIDE 10 MEQ SR TABLET PO SCH (09:10)
[2021-01-05] MEDS: BACLOFEN 10 MG TAB PO SCH ×2 (09:10→21:31)
[2021-01-05] MEDS: ACYCLOVIR 200 MG CAPSULE PO SCH ×2 (09:10→21:32)
[2021-01-05] MEDS: POLYVINYL ALCOHOL OPHTH SOLN 15 ML(LIQUITEARS) OU SCH ×3 (09:10→21:36)
--- NOTE | 2021-01-05 11:21 | IPNPDOC ---
Text Note Date of Service The patient was seen on 01/05/21. NOTE SUBJECTIVE: Patient seen and examined at bedside. Continues to feel better. No acute overnight events, no new medical complaints this morning. Pain controlled, pruritus controlled. Objective: VITAL SIGNS: Please see below GENERAL APPEARANCE: Lying comfortably in bed, eating breakfast HEENT: NC/AT, EOMI LUNGS: CTAB CVS: +S1S2, no M/R/G ABDOMEN: urine bag in place now with porter cath inside in RUQ, obese, Soft, slightly distended, BS + in 4 quad EXTREMITIES: +1 peripheral edema A/P: #metabolic encephalopathy - resolved - in the setting of acute renal failure and UTI - complicated with polypharmacy/sedative medications #lethargy/bradypnea - resolved - no fentanyl - will re-introduce her pain meds gradually again - started lyrica 150 BID #Bilateral hydronephrosis - in the setting of recurrent UTI - further complicated with large right ovarian mass compressing the distal ureters bilaterally as they course to the uretero-ileal anastomosis - porter in place - -Discussed with urology (Dr. Andre initially and now Dr. Saha ), mill helper (Dr. Garcia) following -For now leaving porter, watching Cr. If Cr increases or does not improve, may require removal of mass or urological procedure. Please refer to all consultation notes. #Providencia UTI, hx of recurrent UTI complicated by problem below -Afebrile since 12/27/20, WBC wnl -UCx above -completed 14 days of meropenem as per ID - will resume weekly prophylactic fosfomycin #diarrhea - improving #Acute kidney injury on chronic kidney disease -resolved - encourage PO intake. 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 PT/OT. Possible ARU VS,Fishbone, I+O VS, Fishbone, I+O Laboratory Tests 01/05/21 06:24 Vital Signs Date Time Temp Pulse Resp B/P (MAP) Pulse Ox O2 Delivery O2 Flow Rate FiO2 01/05/21 06:00 98.5 84 18 108/63 (78) 94 Room Air 01/01/21 00:00 6.0 28 I&O- Last 24 Hours up to 6 AM 01/05/21 06:00 Intake Total 780 ml Output Total 1400 ml Balance -620 ml ISABEL GRAHAM MD Jan 05, 2021 11:21
[2021-01-05 14:00] VITALS: BP 93/61
[2021-01-05] MEDS: ASPIRIN 81 MG ENTERIC TAB PO SCH (21:32)
[2021-01-05] MEDS: MAGNESIUM OXIDE 400MG TAB (MAG-OX) PO SCH (21:33)
[2021-01-05] MEDS: ARIPiprazole 2 MG TAB PO SCH (21:33)
[2021-01-05] MEDS: PHENYTOIN ER 100 MG CAP PO SCH (21:34)
[2021-01-05 22:00] VITALS: BP 93/61
[2021-01-06] MEDS: ACETAMINOPHEN TAB 650MG DOSE (2X325MG) PO PRN ×2 (04:55→21:42)
[2021-01-06] MEDS: LEVOTHYROXINE 50MCG TABLET (0.05MG) PO SCH (04:55)
[2021-01-06] MEDS: hydrOXYzine 25 MG TAB PO PRN ×2 (04:55→21:42)
[2021-01-06] MEDS: ATORVASTATIN 20 MG TAB PO SCH (09:17)
[2021-01-06] MEDS: PREGABALIN 75 MG CAP(LYRICA) PO SCH ×2 (09:17→21:40)
[2021-01-06] MEDS: AMANTADINE 100MG TABLET PO SCH ×2 (09:17→21:41)
[2021-01-06] MEDS: BACLOFEN 10 MG TAB PO SCH ×2 (09:17→21:40)
[2021-01-06] MEDS: levETIRAcetam 250MG TABLET (KEPPRA) PO SCH ×2 (09:17→21:40)
[2021-01-06] MEDS: PANTOPRAZOLE 40MG TAB (PROTONIX) PO SCH ×2 (09:18→21:42)
[2021-01-06] MEDS: DULoxetine 30 MG CAP (CYMBALTA) PO SCH ×2 (09:18→21:41)
[2021-01-06] MEDS: POTASSIUM CHLORIDE 10 MEQ SR TABLET PO SCH (09:18)
[2021-01-06] MEDS: ACYCLOVIR 200 MG CAPSULE PO SCH ×2 (09:18→21:41)
[2021-01-06] MEDS: ENOXAPARIN 30MG/0.3ML SYRINGE (J1650 PER 10MG) SC SCH (09:19)
[2021-01-06] MEDS: POLYVINYL ALCOHOL OPHTH SOLN 15 ML(LIQUITEARS) OU SCH ×3 (09:19→21:44)
[2021-01-06] MEDS: SODIUM CHLORIDE 0.9% INJ 10 ML SYR IV SCH (09:20)
--- NOTE | 2021-01-06 12:11 | IPNPDOC ---
Text Note Date of Service The patient was seen on 01/06/21. NOTE SUBJECTIVE: Patient seen and examined at bedside. Continues to feel better. at bedside. No acute overnight events, no new medical complaints this morning. Pain controlled, pruritus controlled. Objective: VITAL SIGNS: Please see below GENERAL APPEARANCE: Lying comfortably in bed, eating breakfast, in good spirits HEENT: NC/AT, EOMI LUNGS: CTAB CVS: +S1S2, no M/R/G ABDOMEN: urine bag in place now with porter cath inside in RUQ, obese, Soft, slightly distended, BS + in 4 quad EXTREMITIES: +1 peripheral edema A/P: #hypotension - asymptomatic - acceptable MAP - continue to monitor - not on any anti-hypertensives #metabolic encephalopathy - resolved - in the setting of acute renal failure and UTI - complicated with polypharmacy/sedative medications #lethargy/bradypnea - resolved - no fentanyl - will re-introduce her pain meds gradually again - started lyrica 150 BID #Bilateral hydronephrosis - in the setting of recurrent UTI - further complicated with large right ovarian mass compressing the distal ure ters bilaterally as they course to the uretero-ileal anastomosis - porter in place - -Discussed with urology (Dr. Andre initially and now Dr. Saha ), manager operational (Dr. Garcia) following -For now leaving porter, watching Cr. If Cr increases or does not improve, may require removal of mass or urological procedure. Please refer to all consultation notes. #Providencia UTI, hx of recurrent UTI complicated by problem below -Afebrile since 12/27/20, WBC wnl -UCx above -completed 14 days of meropenem as per ID - will resume weekly prophylactic fosfomycin #Acute kidney injury on chronic kidney disease -resolved - encourage PO intake. 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 PT/OT. Possible ARU when bed available VS,Fishbone, I+O VS, Fishbone, I+O Vital Signs Date Time Temp Pulse Resp B/P (MAP) Pulse Ox O2 Delivery O2 Flow Rate FiO2 01/05/21 22:00 98.8 91 18 93/61 (72) 94 Room Air 01/01/21 00:00 6.0 28 I&O- Last 24 Hours up to 6 AM 01/06/21 06:00 Intake Total 2290 ml Output Total 1450 ml Balance 840 ml ISABEL GRAHAM MD Jan 06, 2021 12:11
[2021-01-06 14:00] VITALS: BP 121/72
[2021-01-06] MEDS: ARIPiprazole 2 MG TAB PO SCH (21:41)
[2021-01-06] MEDS: ASPIRIN 81 MG ENTERIC TAB PO SCH (21:41)
[2021-01-06] MEDS: MAGNESIUM OXIDE 400MG TAB (MAG-OX) PO SCH (21:42)
[2021-01-06] MEDS: PHENYTOIN ER 100 MG CAP PO SCH (21:43)
[2021-01-06 22:00] VITALS: BP 117/72
[2021-01-07] MEDS: LEVOTHYROXINE 50MCG TABLET (0.05MG) PO SCH (04:57)
[2021-01-07] MEDS: hydrOXYzine 25 MG TAB PO PRN (04:57)
[2021-01-07] MEDS: ACETAMINOPHEN TAB 650MG DOSE (2X325MG) PO PRN (04:58)
[2021-01-07 06:00] VITALS: BP 116/72
[2021-01-07] MEDS: ENOXAPARIN 30MG/0.3ML SYRINGE (J1650 PER 10MG) SC SCH (08:45)
[2021-01-07] MEDS: POLYVINYL ALCOHOL OPHTH SOLN 15 ML(LIQUITEARS) OU SCH ×3 (08:45→21:07)
[2021-01-07] MEDS: AMANTADINE 100MG TABLET PO SCH ×2 (08:46→22:00)
[2021-01-07] MEDS: PANTOPRAZOLE 40MG TAB (PROTONIX) PO SCH ×2 (08:46→22:00)
[2021-01-07] MEDS: SODIUM CHLORIDE 0.9% INJ 10 ML SYR IV SCH (08:46)
[2021-01-07] MEDS: POTASSIUM CHLORIDE 10 MEQ SR TABLET PO SCH (08:46)
[2021-01-07] MEDS: ACYCLOVIR 200 MG CAPSULE PO SCH ×2 (08:46→22:00)
[2021-01-07] MEDS: DULoxetine 30 MG CAP (CYMBALTA) PO SCH ×2 (08:47→22:00)
[2021-01-07] MEDS: ATORVASTATIN 20 MG TAB PO SCH (08:47)
[2021-01-07] MEDS: BACLOFEN 10 MG TAB PO SCH ×2 (08:47→22:00)
[2021-01-07] MEDS: levETIRAcetam 250MG TABLET (KEPPRA) PO SCH ×2 (08:47→22:00)
[2021-01-07] MEDS: PREGABALIN 75 MG CAP(LYRICA) PO SCH ×2 (08:51→22:00)
[2021-01-07 14:00] VITALS: BP 131/82
[2021-01-07] MEDS: ONDANSETRON 4MG/2ML VIAL IV PRN ×2 (15:55→19:55)
[2021-01-07] MEDS: SODIUM CHLORIDE 0.9% INJ 10 ML SYR IV PRN ×2 (15:55→19:56)
--- NOTE | 2021-01-07 19:32 | IPNPDOC ---
Subjective Date Seen The patient was seen on 01/07/21. Subjective Chief Complaint/HPI No issues overnight. Patient continues to progress with PT. Waiting ot see if going to be able to go to ARU. Objective Physical Examination General Exam: Positive: Alert, Cooperative, No Acute Distress Eye Exam: Positive: PERRLA, Conjunctiva & lids normal, EOMI; Negative: Sclera icteric ENT Exam: Positive: Atraumatic, Mucous membr. moist/pink, Pharynx Normal Neck Exam: Positive: Supple; Negative: JVD, thyromegaly Chest Exam: Positive: Clear to auscultation, Normal air movement Heart Exam: Positive: Rate Normal, Regular Rhythm, Normal S1, Normal S2; Negative: Murmurs, Rubs Abdomen Exam: Positive: Normal bowel sounds, Soft; Negative: Tenderness Extremity Exam: Negative: Clubbing, Cyanosis, Edema Assessment /Plan Assessment This 55-year-old female with MS, Neurogenic bladder s/p cystectomy for this with ileal conduit creation, now with urostomy bag, CKD stage 3, neurogenic bowels, epilepsy, morbid obesity, History of recurrent UTIs COPD, Hypertension, Torticollis, Pseudobulbar affect, Microcytic anemia, B12 deficiency, Vitamin D deficiency, Migraines, GERD, Chronic back pain, Anxiety/depression, Hepatic steatosis was brought into the hospital by EMS because her noticed that she has been lethargic for about 2 days not able to take her meds or food and unable to stay awake for more than an hour. Patient was started on fentanyl 2 months ago and apparently the remove the patch 2 days ago. The patient was noted to be fairly lethargic with bradypnea and received 4 doses of Narcan. Octavio was admitted for acute metabolic encephalopathy thought to be due to Fentanyl and UTI. She also had TERRELL on CKD. Acute metabolic encephalopathy-- resolved. in the setting of polypharmacy/sedative medications/ Narcotics and UTI Most likely due to fentanyl. re-introduce her pain meds gradually again - started lyrica 150 BID No further fentanyl to be given. TERRELL on CKD improving. Obstructive uropathy due to obstruction of urostomy opening and obstruction of ureters draining into ileal conduit by large ovarian cysts. Creatine did Improve after placement of catheter through the urostomy opening though has not normalized yet. Bilateral hydronephrosis due to large right ovarian mass compressing the distal ureters bilaterally as they course to the uretero-ileal anastomosis porter in urostomy. - Discussed with urology (Dr. Andre initially and now Dr. Saha ), electric spot welder (Dr. Garcia) following For now leaving porter, watching Cr. If Cr increases or does not improve, may require removal of mass or urological procedure. Please refer to all consultation notes. Providencia UTI, hx of recurrent UTI complicated by problem below Afebrile since 12/27/20, WBC wnl UCx above completed 14 days of meropenem as per ID - will resume weekly prophylactic fosfomycin Secondary progressive multiple sclerosis Per neuro, possibly pseudo-exacerbation 2/2 to UTI Do not treat with steroids unless seen to have active lesion MRI with gadolinium: no active demyelination C/w PT/OT Hypokalemia, chronic continue to follow and replete as needed Hx of torticollis C/w home baclofen Stable Chronic pain syndrome continue current meds. 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 PT/OT. Possible ARU when bed available Plan/VTE VTE Prophylaxis Ordered?: Yes VTE Exclusion Mechanical Proph: N/A:VTE Prophy Ordered VS, I&O, 24H, Fishbone Vital Signs/I&O Vital Signs Date Time Temp Pulse Resp B/P (MAP) Pulse Ox O2 Delivery O2 Flow Rate FiO2 01/07/21 14:00 98.1 95 18 131/82 (98) 97 Room Air 01/01/21 00:00 6.0 28 I&O- Last 24 Hours up to 6 AM 01/07/21 06:00 Intake Total 1200 ml Output Total 1000 ml Balance 200 ml Laboratory Data Microbiology Microbiology 12/31/20 Stool Occult Blood (VANDANA) - Final, Complete NATE ROSADO MD Jan 07, 2021 19:32
[2021-01-07] MEDS: PROMETHAZINE 25 MG TAB PO PRN (21:06)
[2021-01-07 22:00] VITALS: BP 133/85
[2021-01-07] MEDS: PHENYTOIN ER 100 MG CAP PO SCH (22:00)
[2021-01-07] MEDS: MAGNESIUM OXIDE 400MG TAB (MAG-OX) PO SCH (22:00)
[2021-01-07] MEDS: ASPIRIN 81 MG ENTERIC TAB PO SCH (22:00)
[2021-01-07] MEDS: ARIPiprazole 2 MG TAB PO SCH (22:00)
[2021-01-08] MEDS: PROMETHAZINE 25 MG TAB PO PRN (04:28)
[2021-01-08] MEDS: LEVOTHYROXINE 50MCG TABLET (0.05MG) PO SCH (05:33)
[2021-01-08 06:00] VITALS: BP 114/76
[2021-01-08] MEDS: ONDANSETRON 4MG/2ML VIAL IV PRN (07:48)
[2021-01-08] MEDS ORDERED: PROMETHAZINE INJ 25 MG/ML VIAL (J2550) IV PRN (08:00)
[2021-01-08] MEDS: ENOXAPARIN 30MG/0.3ML SYRINGE (J1650 PER 10MG) SC SCH (09:00)
[2021-01-08] MEDS: levETIRAcetam 250MG TABLET (KEPPRA) PO SCH ×2 (09:00→20:35)
--- NOTE | 2021-01-08 09:17 | REP ---
INDICATION: projectile vomiting, abd pain COMPARISON: None. TECHNIQUE: Supine view of the abdomen and pelvis. FINDINGS: Bowel gas pattern demonstrates mildly dilated air-filled loops of small and large bowel suggesting ileus. Early small-bowel obstruction cannot be excluded. No organomegaly. No obvious foreign body. Surgical clips in the right lower quadrant. Skeletal structures intact. IMPRESSION: Ileus versus early small bowel obstruction. Close clinical observation may be warranted. <Electronically signed by Efe Tovar > 01/08/21 0975
[2021-01-08] MEDS: ONDANSETRON 4MG/2ML VIAL IV SCH ×3 (09:43→20:31)
[2021-01-08] MEDS: PANTOPRAZOLE 40MG VIAL (C9113 PER 1) IV SCH ×2 (09:43→20:30)
[2021-01-08] MEDS: SODIUM CHLORIDE 0.9% INJ 10 ML SYR IV SCH (09:44)
[2021-01-08] MEDS: POLYVINYL ALCOHOL OPHTH SOLN 15 ML(LIQUITEARS) OU SCH ×3 (09:44→20:31)
[2021-01-08] MEDS: LR 1,000 ML IV SCH (09:45)
--- NOTE | 2021-01-08 09:59 | IPNPDOC ---
Subjective Date Seen The patient was seen on 01/08/21. Subjective Chief Complaint/HPI Patient complaining of abdominal pain from last night then started vomiting . She reports that she has been vomiting all night. trhe vomiting is projectile in nature. No fever or chills, She did have a bowel movement soft mushy kind yesterday. Objective Physical Examination General Exam: Positive: Alert, Cooperative, No Acute Distress Eye Exam: Positive: PERRLA, Conjunctiva & lids normal, EOMI; Negative: Sclera icteric ENT Exam: Positive: Atraumatic, Mucous membr. moist/pink, Pharynx Normal Neck Exam: Positive: Supple; Negative: JVD, thyromegaly Chest Exam: Positive: Clear to auscultation, Normal air movement Heart Exam: Positive: Rate Normal, Regular Rhythm, Normal S1, Normal S2; Negative: Murmurs, Rubs Abdomen Exam: Positive: Normal bowel sounds, Soft; Negative: Tenderness Extremity Exam: Negative: Clubbing, Cyanosis, Edema Assessment /Plan Assessment This 55-year-old female with MS, Neurogenic bladder s/p cystectomy for this with ileal conduit creation, now with urostomy bag, CKD stage 3, neurogenic bowels, epilepsy, morbid obesity, History of recurrent UTIs COPD, Hypertension, Torticollis, Pseudobulbar affect, Microcytic anemia, B12 deficiency, Vitamin D deficiency, Migraines, GERD, Chronic back pain, Anxiety/depression, Hepatic steatosis was brought into the hospital by EMS because her noticed that she has been lethargic for about 2 days not able to take her meds or food and unable to stay awake for more than an hour. Patient was started on fentanyl 2 months ago and apparently the remove the patch 2 days ago. The patient was noted to be fairly lethargic with bradypnea and received 4 doses of Narcan. Octavio was admitted for acute metabolic encephalopathy thought to be due to Fentanyl and UTI. She also had TERRELL on CKD. Vomiting and abdominal pain Abd xray Ileus vs early SBO will place NG tube to suction, hold oral meds. IVF. surgical consult Dr Ramirez. zofran and phenargan for vomiting. Acute metabolic encephalopathy-- resolved. in the setting of polypharmacy/sedative medications/ Narcotics and UTI Most likely due to fentanyl. re-introduce her pain meds gradually again - started lyrica 150 BID No further fentanyl to be given. TERRELL on CKD Obstructive uropathy due to obstruction of urostomy opening and obstruction of ureters draining into ileal conduit by large ovarian cysts. Creatine did Improve after placement of catheter through the urostomy opening though has not normalized yet. Bilateral hydronephrosis due to large right ovarian mass compressing the distal ureters bilaterally as they course to the uretero-ileal anastomosis porter in urostomy. - Discussed with urology (Dr. Andre initially and now Dr. Saha ), accounting manager controller (Dr. Garcia) following For now leaving porter, watching Cr. If Cr increases or does not improve, may require removal of mass or urological procedure. Please refer to all consultation notes. 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 PT/OT. Possible ARU when bed avai lable Plan/VTE VTE Prophylaxis Ordered?: Yes VTE Exclusion Mechanical Proph: N/A:VTE Prophy Ordered VS, I&O, 24H, Fishbone Vital Signs/I&O Vital Signs Date Time Temp Pulse Resp B/P (MAP) Pulse Ox O2 Delivery O2 Flow Rate FiO2 01/08/21 06:00 96.8 76 18 114/76 (89) 96 Room Air I&O- Last 24 Hours up to 6 AM 01/08/21 06:00 Intake Total 1260 ml Output Total 2950 ml Balance -1690 ml Laboratory Data Microbiology Microbiology 12/31/20 Stool Occult Blood (VANDANA) - Final, Complete NATE ROSADO MD Jan 08, 2021 09:59
[2021-01-08 10:12] LABS: BASO % 0.3 % (0.0-1.0); EOS # 0.1 10^3/uL (0.0-0.5); EOS % 1.3 % (0.0-3.0); HEMATOCRIT 39.2 % (36.0-47.0); HEMOGLOBIN 12.6 g/dl (12.0-15.5); LYMPH # 0.5 10^3/uL (1.5-5.0); LYMPH % 5.1 % (24.0-44.0); MEAN CORPUSCULAR HEMOGLOBIN 27.2 pg (27.0-33.0); MEAN CORPUSCULAR HGB CONC 32.1 g/dl (32.0-36.5); MEAN CORPUSCULAR VOLUME 84.7 fl (80.0-96.0); MONO # 0.8 10^3/uL (0.0-0.8); MONO % 7.6 % (0.0-5.0); NEUTROPHILS # 8.4 10^3/uL (1.5-8.5); NEUTROPHILS % 85.3 % (36.0-66.0); PLATELET COUNT, AUTOMATED 458 10^3/uL (150-450); RED BLOOD COUNT 4.63 10^6/uL (4.00-5.40); WHITE BLOOD COUNT 9.9 10^3/uL (4.0-10.0)
[2021-01-08 10:46] LABS: ALBUMIN 3.7 GM/DL (3.2-5.2); BILIRUBIN,TOTAL 0.3 MG/DL (0.2-1.0); CREATININE FOR GFR 1.87 MG/DL (0.55-1.30); POTASSIUM SERUM 4.3 MEQ/L (3.5-5.1); TOTAL PROTEIN 7.5 GM/DL (6.4-8.2)
[2021-01-08 14:00] VITALS: BP 108/75
--- NOTE | 2021-01-08 14:18 | REP ---
INDICATION: NG placement. COMPARISON: 01/08/2021 8:29 a.m. TECHNIQUE: AP view abdomen and pelvis. FINDINGS: Persistent moderately dilated small bowel loops are seen in the upper abdomen. A nasogastric tube is present in the side port is in the antrum of the stomach. Metallic clips are seen in the right pelvis. There are degenerative changes of the spine. IMPRESSION: Nasogastric tube side port in the antrum of the stomach. <Electronically signed by Bran Chirinos > 01/08/21 [id number]
[2021-01-08] MEDS: PHENYTOIN ER 100 MG CAP PO SCH (20:35)
[2021-01-08 22:00] VITALS: BP 107/73
--- NOTE | 2021-01-09 00:01 | CR ---
CONSULTATION DATE: 01/08/2021 REQUESTING PHYSICIAN: Dr. Kaya Momin, Hospitalist Service REASON FOR CONSULTATION: Vomiting. HISTORY OF PRESENT ILLNESS: The patient is a 55-year-old woman with a history of multiple medical problems who was admitted on the 18 of December with a diagnosis of altered mental status. She has a history of multiple sclerosis and epilepsy and underwent a cystectomy for a neurogenic bladder and has an ileal conduit. She has a history of recurrent urinary tract infections. She has been managed by the Hospitalist Service with consultation to Urology since her admission back on the 18 of December. There has apparently been some evidence for obstruction in her ileal conduit with bilateral hydronephrosis identified by scanning. A catheter was placed into her ileal conduit to better decompress this. She had apparently been making good progress and was to be transferred to the Acute Rehabilitation Unit but developed nausea and vomiting, apparently starting on the december late in the evening. This continued on the morning of the . An abdominal x-ray was obtained which showed a couple of prominent air filled loops of proximal small bowel. Dr. Momin ordered placement of an NG tube, and I was consulted to evaluate the patient regarding a possible bowel obstruction. ALLERGIES: Allergies are listed as: 1. Cephalosporins. 2. Sulfa drugs. 3. Acetaminophen. 4. Hydrocodone. 5. Oxycodone. CURRENT MEDICATIONS: 1. Albuterol as needed. 2. Narcan p.r.n. 3. Lovenox which has been refused by the patient. 4. Keppra which has been refused by the patient. 5. Dilantin, refused by the patient. 6. Tylenol. 7. Miralax p.r.n. 8. Flovent. 9. Fosfomycin. 10. Tromethamine. 11. Atarax. 12. Zofran. 13. Pantoprazole. 14. Phenergan. 15. Ringer's Lactate. PAST MEDICAL HISTORY: The patient's past medical history is significant for: 1. Multiple sclerosis. 2. History of epilepsy. 3. History of recurrent urinary tract infections. 4. Chronic obstructive pulmonary disease. 5. Hypertension. 6. Migraines. 7. Obesity. 8. Reflux. 9. Chronic back pain. 10. Anxiety. 11. Depression. PAST SURGICAL HISTORY: The patient's past surgical history is significant for: 1. She has undergone cystectomy. 2. She has an ileal conduit. 3. Breast reduction. 4. Wrist surgery. 5. She has undergone a tubal ligation. 6. Hysterectomy. SOCIAL HISTORY: She is and her is present when I came to see her. She denies any smoking or significant alcohol intake. FAMILY HISTORY: Noncontributory. PHYSICAL EXAMINATION: GENERAL APPEARANCE: The patient is a moderately obese, pleasant woman lying quietly on the stretcher. She is alert and responsive. She appears oriented. SKIN: Warm and dry. HEENT: Sclerae are anicteric. Mucous membranes are moist. HEART: Somewhat tachycardic with a pulse of approximately 100-110. LUNGS: Clear to auscultation bilaterally. ABDOMEN: Her ileal conduit is in the right lower abdomen which connects to a Orellana drainage bag. She has a lower abdominal scar. She has bowel sounds present. Palpation reveals the abdomen to be somewhat full. She has some mild to moderate direct tenderness in the left mid to upper abdomen. There is no rebound tenderness. No masses appreciated. No hernia is identified. LABORATORY STUDIES: Lab studies today show a white count of 10, hemoglobin 13, hematocrit 39 which is actually up ten points since the december when it was last checked. Her platelet count is 458,000 which is also double what her platelet count was on the december. Differential count shows 85% neutrophils, 5% lymphocytes and 8% monocytes. Her chemistry profile shows normal electrolytes with a BUN of 23, creatinine 1.87 and a glucose of 133. Liver function tests are normal but her alkaline phosphatase is elevated at 298. She has no new toxicology testing. IMAGING DATA: Abdominal x-ray this morning was read by the radiologist as showing some mildly dilated air filled loops of small and large bowel suggesting ileus, though an early small bowel obstruction could not be excluded. On my review of the initial x-ray, she did have a couple of prominent loops of what appeared to be proximal small bowel that were air filled. There did not appear to be significant air in her large bowel. She subsequently had a follow up x-ray after her NG tube was placed and this shows air in some mildly dilated proximal small bowel loops, but there is also air noted in the transverse and descending colon and also down into the rectum. IMPRESSION: The patient has had some nausea and vomiting over the past 24 hours. The etiology of this is not clear. She does have several mildly distended air filled loops of small bowel. On her most recent x-ray for NG tube placement there is actually air scattered throughout the transverse and descending colon and down into the rectum. There is some stool noted in the rectum but this is not suggestive of a fecal impaction. Though this could represent a bowel obstruction related to adhesions, I think this is less likely. RECOMMENDATIONS: 1. At this point I would leave the NG tube to low intermittent suction and monitor the output. 2. Her symptoms should be managed medically as needed. 3. Maintenance fluids should be administered. 4. I will order a follow up KUB for the december to see if there is a change in the gas distribution within the bowel to suggest either a more likely diagnosis of a bowel obstruction or to indicate resolution of any concerns about a bowel obstruction. DEVORAH
[2021-01-09] MEDS: LR 1,000 ML IV SCH ×2 (02:00→09:01)
[2021-01-09] MEDS: ONDANSETRON 4MG/2ML VIAL IV SCH ×4 (02:35→20:56)
[2021-01-09 07:08] LABS: BASO % 0.3 % (0.0-1.0); EOS # 0.2 10^3/uL (0.0-0.5); EOS % 3.9 % (0.0-3.0); HEMATOCRIT 30.6 % (36.0-47.0); LYMPH # 0.6 10^3/uL (1.5-5.0); LYMPH % 9.5 % (24.0-44.0); MEAN CORPUSCULAR HEMOGLOBIN 26.9 pg (27.0-33.0); MEAN CORPUSCULAR VOLUME 86.7 fl (80.0-96.0); MONO # 0.8 10^3/uL (0.0-0.8); MONO % 12.3 % (0.0-5.0); NEUTROPHILS # 4.5 10^3/uL (1.5-8.5); NEUTROPHILS % 73.7 % (36.0-66.0); RED BLOOD COUNT 3.53 10^6/uL (4.00-5.40); WHITE BLOOD COUNT 6.1 10^3/uL (4.0-10.0)
[2021-01-09 07:18] LABS: HEMOGLOBIN 9.5 g/dl (12.0-15.5); PLATELET COUNT, AUTOMATED 255 10^3/uL (150-450)
[2021-01-09 07:29] LABS: CALCIUM LEVEL 8.9 MG/DL (8.5-10.1); CREATININE FOR GFR 1.84 MG/DL (0.55-1.30); GLOMERULAR FILTRATION RATE 30.5 (>51); POTASSIUM SERUM 3.4 MEQ/L (3.5-5.1)
[2021-01-09] MEDS: AMANTADINE 100MG TABLET PO SCH ×2 (09:00→21:00)
[2021-01-09] MEDS: DULoxetine 30 MG CAP (CYMBALTA) PO SCH ×3 (09:00→20:58)
[2021-01-09] MEDS: SODIUM CHLORIDE 0.9% INJ 10 ML SYR IV SCH (09:00)
[2021-01-09] MEDS: ACYCLOVIR 200 MG CAPSULE PO SCH ×2 (09:00→21:00)
[2021-01-09] MEDS: ENOXAPARIN 30MG/0.3ML SYRINGE (J1650 PER 10MG) SC SCH (09:00)
[2021-01-09] MEDS: ATORVASTATIN 20 MG TAB PO SCH ×2 (09:00→11:56)
[2021-01-09] MEDS: PANTOPRAZOLE 40MG VIAL (C9113 PER 1) IV SCH ×2 (09:01→20:56)
--- NOTE | 2021-01-09 10:22 | REP ---
INDICATION: possible SBO COMPARISON: None. TECHNIQUE: Supine view of the abdomen and pelvis. FINDINGS: Bowel gas pattern is nonspecific and without evidence of obstruction or perforation. No obvious organomegaly. No abnormal calcifications. Skeletal structures intact. IMPRESSION: Nonspecific bowel gas pattern. No evidence for obstruction or perforation. <Electronically signed by Efe Tovar > 01/09/21 1014
--- NOTE | 2021-01-09 10:50 | IPNPDOC ---
Text Note Date of Service The patient was seen on 01/09/21. NOTE General Surgery Dr Ramirez. The patient is a 55-year-old female admitted with altered mental status, general surgery was consulted regarding nausea vomiting, possible bowel obstruction. Pt had NGT to low intermittent suction. She states she still has some nausea. No vomiting yesterday. She has had ice chips. She states she still has discomfort across her upper abdomen. Temperature 98.3, heart rate 114, respiratory rate 18, blood pressure 107/73, 93% room air The patient is awake and alert and resting in bed. No acute distress. Lungs clear to auscultation S1-S2 regular rate rhythm Abdomen with ileal conduit right lower abdomen connecting to Orellana drainage bag. There are bowel sounds present. She appears to be mildly distended, she still has some mild tenderness in the left and mid upper abdomen, no guarding, no rebound. Extremities well-perfused, no edema. 150/1740, -1590 WBC 6.1 Hemoglobin 9.5 Serum creatinine 1.84 with GFR 30.5 AXR is pending this a.m. A/P Nausea/vomiting Previous x-ray indicated some mildly distended air-filled loops of bowel. Possible bowel obstruction related to adhesions. NG tube was continued on intermittent suction. Ice chips currently IVF 75cc/hr. Plan to recheck KUB this a.m, pending at this time. Continue to monitor. VS,Fishbone, I+O VS, Fishbone, I+O Laboratory Tests 01/09/21 06:21 Vital Signs Date Time Temp Pulse Resp B/P (MAP) Pulse Ox O2 Delivery O2 Flow Rate FiO2 01/08/21 22:00 98.3 111 18 107/73 (84) 93 Room Air I&O- Last 24 Hours up to 6 AM 01/09/21 05:59 Intake Total 0 ml Output Total 790 ml Balance -790 ml Attending Note Attending Note Agree with Analilia's note. Patient more comfortable today. Has had flatus and a small BM. No sig abd pain. NG with small amt output. Abdomen exam shows soft abdomen with + BS. No tenderness. Will continue NG overnight and consider removing in am. Analilia Brown Jan 09, 2021 10:50 Joey Ramirez Jan 10, 2021 16:59
[2021-01-09] MEDS: levETIRAcetam 250MG TABLET (KEPPRA) PO SCH ×2 (11:55→20:58)
[2021-01-09] MEDS: BACLOFEN 10 MG TAB PO SCH ×2 (11:56→21:00)
[2021-01-09] MEDS: POTASSIUM CHLORIDE 10 MEQ SR TABLET PO SCH (11:56)
[2021-01-09] MEDS: PREGABALIN 75 MG CAP(LYRICA) PO SCH ×2 (11:57→20:57)
[2021-01-09] MEDS: POLYVINYL ALCOHOL OPHTH SOLN 15 ML(LIQUITEARS) OU SCH ×3 (11:58→21:05)
[2021-01-09 14:00] VITALS: BP 132/81
[2021-01-09 20:46] VITALS: BP 112/76
[2021-01-09] MEDS: PHENYTOIN ER 100 MG CAP PO SCH (20:58)
[2021-01-09] MEDS: ARIPiprazole 2 MG TAB PO SCH (21:00)
[2021-01-09] MEDS: MAGNESIUM OXIDE 400MG TAB (MAG-OX) PO SCH (21:00)
[2021-01-09] MEDS: ASPIRIN 81 MG ENTERIC TAB PO SCH (21:00)
[2021-01-10] MEDS: ONDANSETRON 4MG/2ML VIAL IV SCH ×4 (02:30→20:21)
[2021-01-10] MEDS: LR 1,000 ML IV SCH ×2 (04:00→17:13)
[2021-01-10] MEDS: LEVOTHYROXINE 50MCG TABLET (0.05MG) PO SCH (06:13)
[2021-01-10 06:15] VITALS: BP 114/76
[2021-01-10 06:15] LABS: BASO % 0.4 % (0.0-1.0); EOS # 0.3 10^3/uL (0.0-0.5); EOS % 5.1 % (0.0-3.0); HEMATOCRIT 28.9 % (36.0-47.0); HEMOGLOBIN 8.7 g/dl (12.0-15.5); LYMPH # 0.6 10^3/uL (1.5-5.0); LYMPH % 11.7 % (24.0-44.0); MEAN CORPUSCULAR HEMOGLOBIN 26.6 pg (27.0-33.0); MEAN CORPUSCULAR HGB CONC 30.1 g/dl (32.0-36.5); MEAN CORPUSCULAR VOLUME 88.4 fl (80.0-96.0); MONO # 0.6 10^3/uL (0.0-0.8); MONO % 10.4 % (0.0-5.0); NEUTROPHILS # 3.9 10^3/uL (1.5-8.5); NEUTROPHILS % 71.9 % (36.0-66.0); PLATELET COUNT, AUTOMATED 204 10^3/uL (150-450); RED BLOOD COUNT 3.27 10^6/uL (4.00-5.40); WHITE BLOOD COUNT 5.5 10^3/uL (4.0-10.0)
[2021-01-10 06:43] LABS: CALCIUM LEVEL 8.1 MG/DL (8.5-10.1); CREATININE FOR GFR 1.62 MG/DL (0.55-1.30); GLOMERULAR FILTRATION RATE 35.4 (>51); POTASSIUM SERUM 3.4 MEQ/L (3.5-5.1)
[2021-01-10] MEDS: levETIRAcetam 250MG TABLET (KEPPRA) PO SCH ×2 (08:47→20:19)
[2021-01-10] MEDS: PANTOPRAZOLE 40MG VIAL (C9113 PER 1) IV SCH ×2 (08:48→20:20)
[2021-01-10] MEDS: ENOXAPARIN 30MG/0.3ML SYRINGE (J1650 PER 10MG) SC SCH (08:48)
[2021-01-10] MEDS: BACLOFEN 10 MG TAB PO SCH ×2 (08:48→20:20)
[2021-01-10] MEDS: PREGABALIN 75 MG CAP(LYRICA) PO SCH ×2 (08:48→20:19)
[2021-01-10] MEDS: POTASSIUM CHLORIDE 10 MEQ SR TABLET PO SCH (08:49)
[2021-01-10] MEDS: SODIUM CHLORIDE 0.9% INJ 10 ML SYR IV SCH (08:51)
[2021-01-10] MEDS: AMANTADINE 100MG TABLET PO SCH ×2 (09:48→20:20)
[2021-01-10] MEDS: POLYVINYL ALCOHOL OPHTH SOLN 15 ML(LIQUITEARS) OU SCH ×3 (09:48→20:22)
--- NOTE | 2021-01-10 09:52 | IPNPDOC ---
Text Note Date of Service The patient was seen on 01/10/21. NOTE General Surgery Dr Ramirez. The patient is a 55-year-old female admitted with altered mental status, general surgery was consulted regarding nausea vomiting, possible bowel obstruction. Pt has NG tube in place, she states nausea is resolved. No vomiting. Asking for liquids. Abdominal discomfort resolved. Temperature 97.9, VSS The patient is awake and alert and resting in bed. No acute distress. Lungs clear to auscultation S1-S2 regular rate rhythm Abdomen with ileal conduit right lower abdomen connecting to Orellana drainage bag, yellow urine. Abdomen is soft, nontender, no guarding, no rebound. Extremities well-perfused, no edema. No leukocytosis Hemoglobin 8.7 Serum creatinine 1.84 with GFR 30.5 AXR 01/09/21. Nonspecific bowel gas pattern, no evidence for obstruction or perforation. A/P Nausea/vomiting. Resolved. The patient's symptoms have resolved. No vomiting since 01/07. Abdominal pain resolved. AXR 01/09/[address] Ramirez. Nonspecific pattern. Plan to discontinue NG tube this morning. Trial of clear liquids. Continue to monitor. VS,Fishbone, I+O VS, Fishbone, I+O Laboratory Tests 01/10/21 05:49 Vital Signs Date Time Temp Pulse Resp B/P (MAP) Pulse Ox O2 Delivery O2 Flow Rate FiO2 01/10/21 06:15 97.9 99 17 114/76 (89) 93 Room Air I&O- Last 24 Hours up to 6 AM 01/10/21 05:59 Intake Total 0 ml Output Total 1350 ml Balance -1350 ml Attending Note Attending Note No pain. No further nausea/vomiting. + flatus. Exam shows abdomen soft and nontender. NG removed and will start clears. Analilia Brown Jan 10, 2021 09:52 Joey Ramirez Jan 10, 2021 17:01
--- NOTE | 2021-01-10 11:09 | IPNPDOC ---
Subjective Date Seen The patient was seen on 01/09/21. Subjective Chief Complaint/HPI Abdominal pain and nausea and vomiting better. Had a bowel movement last night. Objective Physical Examination General Exam: Positive: Alert, Cooperative, No Acute Distress Eye Exam: Positive: PERRLA, Conjunctiva & lids normal, EOMI; Negative: Sclera icteric ENT Exam: Positive: Atraumatic, Mucous membr. moist/pink, Pharynx Normal Neck Exam: Positive: Supple; Negative: JVD, thyromegaly Chest Exam: Positive: Clear to auscultation, Normal air movement Heart Exam: Positive: Rate Normal, Regular Rhythm, Normal S1, Normal S2; Negative: Murmurs, Rubs Abdomen Exam: Positive: Normal bowel sounds, Soft; Negative: Tenderness Extremity Exam: Negative: Clubbing, Cyanosis, Edema Assessment /Plan Assessment This 55-year-old female with MS, Neurogenic bladder s/p cystectomy for this with ileal conduit creation, now with urostomy bag, CKD stage 3, neurogenic bowels, epilepsy, morbid obesity, History of recurrent UTIs COPD, Hypertension, Torticollis, Pseudobulbar affect, Microcytic anemia, B12 deficiency, Vitamin D deficiency, Migraines, GERD, Chronic back pain, Anxiety/depression, Hepatic steatosis was brought into the hospital by EMS because her noticed that she has been lethargic for about 2 days not able to take her meds or food and unable to stay awake for more than an hour. Patient was started on fentanyl 2 months ago and apparently the remove the patch 2 days ago. The patient was noted to be fairly lethargic with bradypnea and received 4 doses of Narcan. Octavio was admitted for acute metabolic encephalopathy thought to be due to Fentanyl and UTI. She also had TERRELL on CKD. Small bowel ileus Vs partial SBO Looks more like Ileus Abd xray improved today with normal bowel loops .Distention of loops resolved. Had bowel movement yesterday. will likely be able to DC NG tube and start clears today. will discuss with General surgery. surgical consult Dr Ramirez. Acute metabolic encephalopathy-- resolved. in the setting of polypharmacy/sedative medications/ Narcotics and UTI Most likely due to fentanyl. re-introduce her pain meds gradually again - started lyrica 150 BID No further fentanyl to be given. TERRELL on CKD Creatinine again worsened.This could be due to mild dehydration from nausea and vomiting. Obstructive uropathy due to obstruction of urostomy opening and obstruction of ureters draining into ileal conduit by large ovarian cysts. Creatine did Improve after placement of catheter through the urostomy opening though did not normalize Bilateral hydronephrosis due to large right ovarian mass compressing the distal ureters bilaterally as they course to the uretero-ileal anastomosis porter in urostomy. - Discussed with urology (Dr. Andre initially and now Dr. Saha ), vegetable thinner (Dr. Garcia) following For now leaving porter, watching Cr. If Cr increases or does not improve, may require removal of mass or urological procedure. Please refer to all consultation notes. 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 PT/OT. Possible ARU when bed av ailable Plan/VTE VTE Prophylaxis Ordered?: Yes VTE Exclusion Mechanical Proph: N/A:VTE Prophy Ordered VS, I&O, 24H, Fishbone Vital Signs/I&O Vital Signs Date Time Temp Pulse Resp B/P (MAP) Pulse Ox O2 Delivery O2 Flow Rate FiO2 01/08/21 22:00 98.3 111 18 107/73 (84) 93 Room Air I&O- Last 24 Hours up to 6 AM 01/09/21 05:59 Intake Total 0 ml Output Total 790 ml Balance -790 ml Laboratory Data 24H LABS Laboratory Tests 2 01/09/21 06:21: Immature Granulocyte % (Auto) 0.3, Neutrophils (%) (Auto) 73.7H, Lymphocytes (%) (Auto) 9.5L, Monocytes (%) (Auto) 12.3H, Eosinophils (%) (Auto) 3.9H, Basophils (%) (Auto) 0.3, Neutrophils # (Auto) 4.5, Lymphocytes # (Auto) 0.6L, Monocytes # (Auto) 0.8, Eosinophils # (Auto) 0.2, Basophils # (Auto) 0.0, Nucleated Red Blood Cells % (auto) 0.0, Anion Gap 6L, Glomerular Filtration Rate 30.5L, Calcium Level 8.9 CBC/BMP Laboratory Tests 01/09/21 06:21 Microbiology Microbiology 12/31/20 Stool Occult Blood (VANDANA) - Final, Complete NATE ROSADO MD Jan 09, 2021 12:03
--- NOTE | 2021-01-10 12:00 | IPNPDOC ---
Subjective Date Seen The patient was seen on 01/10/21. Subjective Chief Complaint/HPI Feels better this morning. No nausea or abdominal pain. No fever or chills. Objective Physical Examination General Exam: Positive: Alert, Cooperative, No Acute Distress Eye Exam: Positive: PERRLA, Conjunctiva & lids normal, EOMI; Negative: Sclera icteric ENT Exam: Positive: Atraumatic, Mucous membr. moist/pink, Pharynx Normal Neck Exam: Positive: Supple; Negative: JVD, thyromegaly Chest Exam: Positive: Clear to auscultation, Normal air movement Heart Exam: Positive: Rate Normal, Regular Rhythm, Normal S1, Normal S2; Negative: Murmurs, Rubs Abdomen Exam: Positive: Normal bowel sounds, Soft; Negative: Tenderness Extremity Exam: Negative: Clubbing, Cyanosis, Edema Assessment /Plan Assessment This 55-year-old female with MS, Neurogenic bladder s/p cystectomy for this with ileal conduit creation, now with urostomy bag, CKD stage 3, neurogenic bowels, epilepsy, morbid obesity, History of recurrent UTIs COPD, Hypertension, Torticollis, Pseudobulbar affect, Microcytic anemia, B12 deficiency, Vitamin D deficiency, Migraines, GERD, Chronic back pain, Anxiety/depression, Hepatic steatosis was brought into the hospital by EMS because her noticed that she has been lethargic for about 2 days not able to take her meds or food and unable to stay awake for more than an hour. Patient was started on fentanyl 2 months ago and apparently the remove the patch 2 days ago. The patient was noted to be fairly lethargic with bradypnea and received 4 doses of Narcan. Octavio was admitted for acute metabolic encephalopathy thought to be due to Fentanyl and UTI. She also had TERRELL on CKD. Small bowel ileus Vs partial SBO Looks more like Ileus She has h/o neurogenic bladder Abd xray improved. NG tube dced, clear liquids. TERRELL on CKD Creatinine again worsened.This could be due to mild dehydration from nausea and vomiting. Obstructive uropathy due to obstruction of urostomy opening and obstruction of ureters draining into ileal conduit by large ovarian cysts. Creatine did Improve after placement of catheter through the urostomy opening though did not normalize Bilateral hydronephrosis due to large right ovarian mass compressing the distal ureters bilaterally as they course to the uretero-ileal anastomosis porter in urostomy. - Discussed with urology (Dr. Andre initially and now Dr. Saha ), chief strategy officer (Dr. Garcia) following For now leaving porter in, watching Cr. If Cr increases or does not improve, may require removal of mass or urological procedure. Please refer to all consultation notes. Acute metabolic encephalopathy-- resolved. in the setting of polypharmacy/sedative medications/ Narcotics and UTI Most likely due to fentanyl. re-introduce her pain meds gradually again - started lyrica 150 BID and baclofen. No further fentanyl to be given. Providencia UTI, hx of recurrent UTI complicated by problem below Afebrile since 12/27/20, WBC wnl UCx above completed 14 days of meropenem as per ID - resumed weekly prophylactic fosfomycin Secondary progressive multiple sclerosis Per neuro, possibly pseudo-exacerbation 2/2 to UTI Do not treat with steroids unless seen to have active lesion MRI with gadolinium: no active demyelination C/w PT/OT restarted on amantadine, lyrica and baclofen. Seizure disorder continued on keppra and phenytoin. 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 PT/OT. ARU when bed available Plan/VTE VTE Prophylaxis Ordered?: Yes VTE Exclusion Mechanical Proph: N/A:VTE Prophy Ordered VS, I&O, 24H, Fishbone Vital Signs/I&O Vital Signs Date Time Temp Pulse Resp B/P (MAP) Pulse Ox O2 Delivery O2 Flow Rate FiO2 01/10/21 06:15 97.9 99 17 114/76 (89) 93 Room Air I&O- Last 24 Hours up to 6 AM 01/10/21 05:59 Intake Total 0 ml Output Total 1350 ml Balance -1350 ml Laboratory Data 24H LABS Laboratory Tests 2 01/10/21 05:49: Immature Granulocyte % (Auto) 0.5, Neutrophils (%) (Auto) 71.9H, Lymphocytes (%) (Auto) 11.7L, Monocytes (%) (Auto) 10.4H, Eosinophils (%) (Auto) 5.1H, Basophils (%) (Auto) 0.4, Neutrophils # (Auto) 3.9, Lymphocytes # (Auto) 0.6L, Monocytes # (Auto) 0.6, Eosinophils # (Auto) 0.3, Basophils # (Auto) 0.0, Nucleated Red Blood Cells % (auto) 0.0, Anion Gap 8, Glomerular Filtration Rate 35.4L, Calcium Level 8.1L CBC/BMP Laboratory Tests 01/10/21 05:49 Microbiology Microbiology 12/31/20 Stool Occult Blood (VANDANA) - Final, Complete NATE ROSADO MD Jan 10, 2021 12:00
[2021-01-10 14:00] VITALS: BP 106/65
[2021-01-10] MEDS: FOSFOMYCIN TROMETHAMINE 3 GM POWDER PACKET (MONUROL) PO SCH (20:18)
[2021-01-10] MEDS: PHENYTOIN ER 100 MG CAP PO SCH (20:21)
[2021-01-10] MEDS: hydrOXYzine 25 MG TAB PO PRN (20:21)
[2021-01-10] MEDS: ACETAMINOPHEN TAB 650MG DOSE (2X325MG) PO PRN (20:21)
[2021-01-10 22:00] VITALS: BP 127/77
[2021-01-11] MEDS: ONDANSETRON 4MG/2ML VIAL IV SCH ×3 (01:47→12:57)
[2021-01-11] MEDS: LR 1,000 ML IV SCH (01:48)
[2021-01-11] MEDS: ACETAMINOPHEN TAB 650MG DOSE (2X325MG) PO PRN ×2 (05:58→20:12)
[2021-01-11] MEDS: hydrOXYzine 25 MG TAB PO PRN ×3 (05:58→20:10)
[2021-01-11] MEDS: LEVOTHYROXINE 50MCG TABLET (0.05MG) PO SCH (05:58)
[2021-01-11 06:00] VITALS: BP 120/73
[2021-01-11 07:17] LABS: BASO % 0.2 % (0.0-1.0); EOS # 0.2 10^3/uL (0.0-0.5); EOS % 4.1 % (0.0-3.0); HEMATOCRIT 27.1 % (36.0-47.0); HEMOGLOBIN 8.2 g/dl (12.0-15.5); LYMPH # 0.4 10^3/uL (1.5-5.0); LYMPH % 8.8 % (24.0-44.0); MEAN CORPUSCULAR HEMOGLOBIN 26.4 pg (27.0-33.0); MEAN CORPUSCULAR HGB CONC 30.3 g/dl (32.0-36.5); MEAN CORPUSCULAR VOLUME 87.1 fl (80.0-96.0); MONO # 0.5 10^3/uL (0.0-0.8); MONO % 9.8 % (2.0-8.0); NEUTROPHILS # 3.7 10^3/uL (1.5-8.5); NEUTROPHILS % 76.3 % (36.0-66.0); PLATELET COUNT, AUTOMATED 167 10^3/uL (150-450); RED BLOOD COUNT 3.11 10^6/uL (4.00-5.40); WHITE BLOOD COUNT 4.9 10^3/uL (4.0-10.0)
[2021-01-11 07:39] LABS: CALCIUM LEVEL 7.8 MG/DL (8.5-10.1); CREATININE FOR GFR 1.46 MG/DL (0.55-1.30); GLOMERULAR FILTRATION RATE 39.9 (>51); POTASSIUM SERUM 3.3 MEQ/L (3.5-5.1)
[2021-01-11] MEDS: ENOXAPARIN 30MG/0.3ML SYRINGE (J1650 PER 10MG) SC SCH (08:47)
[2021-01-11] MEDS: PANTOPRAZOLE 40MG VIAL (C9113 PER 1) IV SCH (08:47)
[2021-01-11] MEDS: AMANTADINE 100MG TABLET PO SCH ×2 (08:48→20:10)
[2021-01-11] MEDS: levETIRAcetam 250MG TABLET (KEPPRA) PO SCH ×2 (08:48→20:10)
[2021-01-11] MEDS: BACLOFEN 10 MG TAB PO SCH ×2 (08:48→20:09)
[2021-01-11] MEDS: PREGABALIN 75 MG CAP(LYRICA) PO SCH ×2 (08:48→20:11)
[2021-01-11] MEDS: POTASSIUM CHLORIDE 10 MEQ SR TABLET PO SCH (08:49)
[2021-01-11] MEDS: SODIUM CHLORIDE 0.9% INJ 10 ML SYR IV SCH (08:49)
[2021-01-11] MEDS: POLYVINYL ALCOHOL OPHTH SOLN 15 ML(LIQUITEARS) OU SCH ×3 (08:50→20:15)
--- NOTE | 2021-01-11 10:19 | IPNPDOC ---
Text Note Date of Service The patient was seen on 01/11/21. NOTE Patient denies any abdominal discomfort. She reports passing a lot of gas last night, has had a small bowel movement this morning. She is tolerating clears without any nausea or vomiting, still feels slightly bloated. Vital signs stable MAXIMUM TEMPERATURE 98.6 On examination She is laying flat on the bed, looks comfortable she was sipping on a popsicle I entered the room. Her is at the bedside other, similar reports improvement with the patient. Abdomen still looks somewhat distended but soft, mildly tympanitic to percussion. She has a right lower quadrant urostomy with clear urine. She has lower midline incision without any herniation. Nontender on palpation Impression and plan Ileus versus partial small bowel obstruction continues to improve clinically with bowel function evident though still is somewhat distended I will advance her to a soft diet. She can be advanced as tolerated. VS,Fishbone, I+O VS, Fishbone, I+O Laboratory Tests 01/11/21 06:31 Vital Signs Date Time Temp Pulse Resp B/P (MAP) Pulse Ox O2 Delivery O2 Flow Rate FiO2 01/11/21 06:00 98.6 75 18 120/73 (89) 93 Room Air I&O- Last 24 Hours up to 6 AM 01/11/21 06:00 Intake Total 1850 ml Output Total 2875 ml Balance -1025 ml MARIANA CORREA MD Jan 11, 2021 10:19
[2021-01-11 14:00] VITALS: BP 112/63
--- NOTE | 2021-01-11 16:58 | IPNPDOC ---
Subjective Date Seen The patient was seen on 01/11/21. Subjective Chief Complaint/HPI denies any abdominal pain or nausea. Still has some abdominal distension. Has not had a bowel movement yesterday or today. Will start a bowel regimen. Tolerating diet. Objective Physical Examination General Exam: Positive: Alert, Cooperative, No Acute Distress Eye Exam: Positive: PERRLA, Conjunctiva & lids normal, EOMI; Negative: Sclera icteric ENT Exam: Positive: Atraumatic, Mucous membr. moist/pink, Pharynx Normal Neck Exam: Positive: Supple; Negative: JVD, thyromegaly Chest Exam: Positive: Clear to auscultation, Normal air movement Heart Exam: Positive: Rate Normal, Regular Rhythm, Normal S1, Normal S2; Negative: Murmurs, Rubs Abdomen Exam: Positive: Normal bowel sounds, Soft, Other (tympanitic. ); Negative: Tenderness Extremity Exam: Negative: Clubbing, Cyanosis, Edema Assessment /Plan Assessment This 55-year-old female with MS, Neurogenic bladder s/p cystectomy for this with ileal conduit creation, now with urostomy bag, CKD stage 3, neurogenic bowels, epilepsy, morbid obesity, History of recurrent UTIs COPD, Hypertension, Torticollis, Pseudobulbar affect, Microcytic anemia, B12 deficiency, Vitamin D deficiency, Migraines, GERD, Chronic back pain, Anxiety/depression, Hepatic s chepe was brought into the hospital by EMS because her noticed that she has been lethargic for about 2 days not able to take her meds or food and unable to stay awake for more than an hour. Patient was started on fentanyl 2 months ago and apparently the remove the patch 2 days ago. The patient was noted to be fairly lethargic with bradypnea and received 4 doses of Narcan. Octavio was admitted for acute metabolic encephalopathy thought to be due to Fentanyl and UTI. She also had TERRELL on CKD. Small bowel ileus Vs partial SBO resolving started on diet. will start on bowel regimen. TERRELL on CKD creatinine improving again. Mostly ranging in the 1.4 to 1.6 range. Obstructive uropathy due to obstruction of urostomy opening and obstruction of ureters draining into ileal conduit by large ovarian cysts. Creatine did Improve after placement of catheter through the urostomy opening though did not normalize Bilateral hydronephrosis due to large right ovarian mass compressing the distal ureters bilaterally as they course to the uretero-ileal anastomosis porter in urostomy. - Discussed with urology (Dr. Andre initially and now Dr. Saha ), automobile spring repairer (Dr. Garcia) following For now leaving porter in, watching Cr. If Cr increases or does not improve, may require removal of mass or urological procedure. Please refer to all consultation notes. Acute metabolic encephalopathy-- resolved. in the setting of polypharmacy/sedative medications/ Narcotics and UTI Most likely due to fentanyl. re-introduce her pain meds gradually again - started lyrica 150 BID and baclofen. No further fentanyl to be given. Providencia UTI, hx of recurrent UTI complicated by problem below Afebrile since 12/27/20, WBC wnl UCx above completed 14 days of meropenem as per ID - resumed weekly prophylactic fosfomycin Secondary progressive multiple sclerosis Per neuro, possibly pseudo-exacerbation 2/2 to UTI Do not treat with steroids unless seen to have active lesion MRI with gadolinium: no active demyelination C/w PT/OT restarted on amantadine, lyrica and baclofen. Seizure disorder continued on keppra and phenytoin. 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 PT/OT. ARU when bed available Plan/VTE VTE Prophylaxis Ordered?: Yes VTE Exclusion Mechanical Proph: N/A:VTE Prophy Ordered VS, I&O, 24H, Fishbone Vital Signs/I&O Vital Signs Date Time Temp Pulse Resp B/P (MAP) Pulse Ox O2 Delivery O2 Flow Rate FiO2 01/11/21 14:00 98.7 87 20 112/63 (79) 96 Room Air I&O- Last 24 Hours up to 6 AM 01/11/21 07:00 Intake Total 1850 ml Output Total 1650 ml Balance 200 ml Laboratory Data 24H LABS Laboratory Tests 2 01/11/21 06:31: Immature Granulocyte % (Auto) 0.8, Neutrophils (%) (Auto) 76.3H, Lymphocytes (%) (Auto) 8.8L, Monocytes (%) (Auto) 9.8H, Eosinophils (%) (Auto) 4.1H, Basophils (%) (Auto) 0.2, Neutrophils # (Auto) 3.7, Lymphocytes # (Auto) 0.4L, Monocytes # (Auto) 0.5, Eosinophils # (Auto) 0.2, Basophils # (Auto) 0.0, Nucleated Red Blood Cells % (auto) 0.0, Anion Gap 8, Glomerular Filtration Rate 39.9L, Calcium Level 7.8L CBC/BMP Laboratory Tests 01/11/21 06:31 NATE ROSADO MD Jan 11, 2021 16:58
[2021-01-11] MEDS ORDERED: FLEET ENEMA PR ONE (17:00)
[2021-01-11] MEDS: BISACODYL 5 MG TAB PO SCH (17:11)
[2021-01-11] MEDS: SENOKOT S TAB PO SCH (20:09)
[2021-01-11] MEDS: PANTOPRAZOLE 40MG TAB (PROTONIX) PO SCH (20:10)
[2021-01-11] MEDS: PHENYTOIN ER 100 MG CAP PO SCH (20:11)
[2021-01-11] MEDS: SODIUM CHLORIDE 0.9% INJ 10 ML SYR IV PRN (20:13)
[2021-01-11] MEDS: ONDANSETRON 4MG/2ML VIAL IV PRN (20:13)
[2021-01-11 22:00] VITALS: BP 105/63
[2021-01-12] MEDS: hydrOXYzine 25 MG TAB PO PRN ×2 (05:15→20:05)
[2021-01-12] MEDS: ACETAMINOPHEN TAB 650MG DOSE (2X325MG) PO PRN ×2 (05:15→20:04)
[2021-01-12] MEDS: LEVOTHYROXINE 50MCG TABLET (0.05MG) PO SCH (05:15)
[2021-01-12 06:00] VITALS: BP 96/56
[2021-01-12 06:44] LABS: BASO % 0.2 % (0.0-1.0); EOS # 0.2 10^3/uL (0.0-0.5); HEMATOCRIT 27.8 % (36.0-47.0); HEMOGLOBIN 8.5 g/dl (12.0-15.5); LYMPH # 0.5 10^3/uL (1.5-5.0); LYMPH % 9.1 % (24.0-44.0); MEAN CORPUSCULAR HEMOGLOBIN 26.6 pg (27.0-33.0); MEAN CORPUSCULAR HGB CONC 30.6 g/dl (32.0-36.5); MEAN CORPUSCULAR VOLUME 87.1 fl (80.0-96.0); MONO # 0.5 10^3/uL (0.0-0.8); MONO % 9.1 % (2.0-8.0); NEUTROPHILS # 4.5 10^3/uL (1.5-8.5); NEUTROPHILS % 76.7 % (36.0-66.0); PLATELET COUNT, AUTOMATED 193 10^3/uL (150-450); RED BLOOD COUNT 3.19 10^6/uL (4.00-5.40); WHITE BLOOD COUNT 5.8 10^3/uL (4.0-10.0)
[2021-01-12 07:08] LABS: CALCIUM LEVEL 7.6 MG/DL (8.5-10.1); CREATININE FOR GFR 1.6 MG/DL (0.55-1.30); GLOMERULAR FILTRATION RATE 35.9 (>51); POTASSIUM SERUM 3.3 MEQ/L (3.5-5.1)
[2021-01-12] MEDS: ENOXAPARIN 30MG/0.3ML SYRINGE (J1650 PER 10MG) SC SCH (08:23)
[2021-01-12] MEDS: SODIUM CHLORIDE 0.9% INJ 10 ML SYR IV SCH (08:23)
[2021-01-12] MEDS: PREGABALIN 75 MG CAP(LYRICA) PO SCH ×2 (08:24→20:04)
[2021-01-12] MEDS: AMANTADINE 100MG TABLET PO SCH ×2 (08:24→20:06)
[2021-01-12] MEDS: POLYVINYL ALCOHOL OPHTH SOLN 15 ML(LIQUITEARS) OU SCH ×3 (08:24→20:07)
[2021-01-12] MEDS: SENOKOT S TAB PO SCH ×2 (08:24→20:06)
[2021-01-12] MEDS: levETIRAcetam 250MG TABLET (KEPPRA) PO SCH ×2 (08:24→20:05)
[2021-01-12] MEDS: BACLOFEN 10 MG TAB PO SCH ×2 (08:24→20:05)
[2021-01-12] MEDS: BISACODYL 5 MG TAB PO SCH (08:25)
[2021-01-12] MEDS: POTASSIUM CHLORIDE 10 MEQ SR TABLET PO SCH (08:25)
[2021-01-12] MEDS: PANTOPRAZOLE 40MG TAB (PROTONIX) PO SCH ×2 (08:25→20:05)
[2021-01-12] MEDS: ACYCLOVIR 200 MG CAPSULE PO SCH ×2 (09:00→20:06)
[2021-01-12] MEDS: DULoxetine 30 MG CAP (CYMBALTA) PO SCH ×2 (09:05→20:04)
[2021-01-12] MEDS: ATORVASTATIN 20 MG TAB PO SCH (09:05)
--- NOTE | 2021-01-12 10:06 | REP ---
INDICATION: Follow up on hydroureteronephrosis.. COMPARISON: Comparison CT and ultrasound imaging from 29 December 2020.. TECHNIQUE: Urinary tract sonography. FINDINGS: The urinary bladder is surgically absent. There is urostomy.. Renal cortical echogenicity pattern is normal bilaterally and contours are smooth. There is moderate bilateral hydronephrosis similar in appearance to the ultrasound images from 29 December 2020 this is essentially unchanged.. The right kidney measures 10.1 x 4.5 x 3.9 cm. Left renal dimensions are 11.7 x 4.2 x 5.3 cm. IMPRESSION: Moderate bilateral hydronephrosis essentially unchanged from the earlier sonography 29 December 2020.. <Electronically signed by Chan Villa > 01/12/21 1002
--- NOTE | 2021-01-12 11:44 | IPNPDOC ---
Subjective Date Seen The patient was seen on 01/12/21. Subjective Chief Complaint/HPI Had some nausea last night. Had a large bowel movement yesterday. This morning breakfast was ok no issues. Says she is walking to the bathroom. Objective Physical Examination General Exam: Positive: Alert, Cooperative, No Acute Distress Eye Exam: Positive: PERRLA, Conjunctiva & lids normal, EOMI; Negative: Sclera icteric ENT Exam: Positive: Atraumatic, Mucous membr. moist/pink, Pharynx Normal Neck Exam: Positive: Supple; Negative: JVD, thyromegaly Chest Exam: Positive: Clear to auscultation, Normal air movement Heart Exam: Positive: Rate Normal, Regular Rhythm, Normal S1, Normal S2; Negative: Murmurs, Rubs Abdomen Exam: Positive: Normal bowel sounds, Soft, Other (tympanitic. ); Negative: Tenderness Extremity Exam: Negative: Clubbing, Cyanosis, Edema Assessment /Plan Assessment This 55-year-old female with MS, Neurogenic bladder s/p cystectomy for this with ileal conduit creation, now with urostomy bag, CKD stage 3, neurogenic bowels, epilepsy, morbid obesity, History of recurrent UTIs COPD, Hypertension, Torticollis, Pseudobulbar affect, Microcytic anemia, B12 deficiency, Vitamin D deficiency, Migraines, GERD, Chronic back pain, Anxiety/depression, Hepatic steatosis was brought into the hospital by EMS because her noticed that she has been lethargic for about 2 days not able to take her meds or food and unable to stay awake for more than an hour. Patient was started on fentanyl 2 months ago and apparently the remove the patch 2 days ago. The patient was noted to be fairly lethargic with bradypnea and received 4 doses of Narcan. Octavio was admitted for acute metabolic encephalopathy thought to be due to Fentanyl and UTI. She also had TERRELL on CKD. Small bowel ileus Vs partial SBO resolved tolerating diet. having regular bowel movements. TERRELL on CKD creatinine improving again. Mostly ranging in the 1.4 to 1.6 range. Obstructive uropathy due to obstruction of urostomy opening and obstruction of ureters draining into ileal conduit by large ovarian cysts. Creatine did Improve after placement of catheter through the urostomy opening though did not normalize Renal US no improvement in chronic hydronephrosis. Bilateral hydronephrosis due to large right ovarian mass compressing the distal ureters bilaterally as they course to the uretero-ileal anastomosis porter in urostomy. - Seen by urology (Dr. Andre initially and now Dr. Saha ), programmer (Dr. Garcia) please refer to consult notes. For now leaving porter in, watching Cr. If Cr increases may require removal of right ovarian cystadenoma. Acute metabolic encephalopathy-- resolved. in the setting of polypharmacy/sedative medications/ Narcotics and UTI Most likely due to fentanyl. re-introduce her pain meds gradually again - started lyrica 150 BID and baclofen. No further fentanyl to be given. Providencia UTI, hx of recurrent UTI complicated by problem below Afebrile since 12/27/20, WBC wnl UCx above completed 14 days of meropenem as per ID - resumed weekly prophylactic fo sfomycin Secondary progressive multiple sclerosis Per neuro, possibly pseudo-exacerbation 2/2 to UTI Do not treat with steroids unless seen to have active lesion MRI with gadolinium: no active demyelination C/w PT/OT restarted on amantadine, lyrica and baclofen. Seizure disorder continued on keppra and phenytoin. 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 PT/OT. ARU when bed available Plan/VTE VTE Prophylaxis Ordered?: Yes VTE Exclusion Mechanical Proph: N/A:VTE Prophy Ordered VS, I&O, 24H, Fishbone Vital Signs/I&O Vital Signs Date Time Temp Pulse Resp B/P (MAP) Pulse Ox O2 Delivery O2 Flow Rate FiO2 01/12/21 06:00 98.7 83 18 96/56 (69) 94 Room Air I&O- Last 24 Hours up to 6 AM 01/12/21 05:59 Intake Total 3180 ml Output Total 650 ml Balance 2530 ml Laboratory Data 24H LABS Laboratory Tests 2 01/12/21 06:21: Immature Granulocyte % (Auto) 0.9, Neutrophils (%) (Auto) 76.7H, Lymphocytes (%) (Auto) 9.1L, Monocytes (%) (Auto) 9.1H, Eosinophils (%) (Auto) 4.0H, Basophils (%) (Auto) 0.2, Neutrophils # (Auto) 4.5, Lymphocytes # (Auto) 0.5L, Monocytes # (Auto) 0.5, Eosinophils # (Auto) 0.2, Basophils # (Auto) 0.0, Nucleated Red Blood Cells % (auto) 0.0, Anion Gap 8, Glomerular Filtration Rate 35.9L, Calcium Level 7.6L CBC/BMP Laboratory Tests 01/12/21 06:21 NATE ROSADO MD Jan 12, 2021 11:44
[2021-01-12] MEDS: ARIPiprazole 2 MG TAB PO SCH (20:05)
[2021-01-12] MEDS: MAGNESIUM OXIDE 400MG TAB (MAG-OX) PO SCH (20:05)
[2021-01-12] MEDS: ASPIRIN 81 MG ENTERIC TAB PO SCH (20:06)
[2021-01-12] MEDS: PHENYTOIN ER 100 MG CAP PO SCH (20:07)
[2021-01-12 22:00] VITALS: BP 113/77
[2021-01-13] MEDS: hydrOXYzine 25 MG TAB PO PRN (05:47)
[2021-01-13] MEDS: ACETAMINOPHEN TAB 650MG DOSE (2X325MG) PO PRN (05:47)
[2021-01-13] MEDS: LEVOTHYROXINE 50MCG TABLET (0.05MG) PO SCH (05:47)
[2021-01-13 06:00] VITALS: BP 107/72
[2021-01-13 06:49] LABS: BASO % 0.2 % (0.0-1.0); EOS # 0.3 10^3/uL (0.0-0.5); EOS % 4.9 % (0.0-3.0); HEMATOCRIT 25.9 % (36.0-47.0); LYMPH # 0.5 10^3/uL (1.5-5.0); LYMPH % 8.8 % (24.0-44.0); MEAN CORPUSCULAR HEMOGLOBIN 26.7 pg (27.0-33.0); MEAN CORPUSCULAR HGB CONC 30.9 g/dl (32.0-36.5); MEAN CORPUSCULAR VOLUME 86.3 fl (80.0-96.0); MONO # 0.6 10^3/uL (0.0-0.8); MONO % 8.9 % (2.0-8.0); NEUTROPHILS # 4.7 10^3/uL (1.5-8.5); NEUTROPHILS % 76.4 % (36.0-66.0); PLATELET COUNT, AUTOMATED 172 10^3/uL (150-450); WHITE BLOOD COUNT 6.2 10^3/uL (4.0-10.0)
[2021-01-13 07:14] LABS: CALCIUM LEVEL 7.9 MG/DL (8.5-10.1); CREATININE FOR GFR 1.57 MG/DL (0.55-1.30); GLOMERULAR FILTRATION RATE 36.7 (>51); POTASSIUM SERUM 3.4 MEQ/L (3.5-5.1)
[2021-01-13] MEDS: BACLOFEN 10 MG TAB PO SCH ×2 (08:48→20:49)
[2021-01-13] MEDS: AMANTADINE 100MG TABLET PO SCH ×2 (08:49→20:50)
[2021-01-13] MEDS: SENOKOT S TAB PO SCH ×2 (08:49→20:50)
[2021-01-13] MEDS: BISACODYL 5 MG TAB PO SCH (08:49)
[2021-01-13] MEDS: PANTOPRAZOLE 40MG TAB (PROTONIX) PO SCH ×2 (08:49→20:49)
[2021-01-13] MEDS: PREGABALIN 75 MG CAP(LYRICA) PO SCH ×2 (08:49→20:50)
[2021-01-13] MEDS: ENOXAPARIN 30MG/0.3ML SYRINGE (J1650 PER 10MG) SC SCH (08:49)
[2021-01-13] MEDS: DULoxetine 30 MG CAP (CYMBALTA) PO SCH ×2 (08:49→20:50)
[2021-01-13] MEDS: ATORVASTATIN 20 MG TAB PO SCH (08:50)
[2021-01-13] MEDS: ACYCLOVIR 200 MG CAPSULE PO SCH ×2 (08:50→20:49)
[2021-01-13] MEDS: levETIRAcetam 250MG TABLET (KEPPRA) PO SCH ×2 (08:50→20:49)
[2021-01-13] MEDS: POTASSIUM CHLORIDE 10 MEQ SR TABLET PO SCH (08:50)
[2021-01-13] MEDS: SODIUM CHLORIDE 0.9% INJ 10 ML SYR IV SCH (08:52)
[2021-01-13] MEDS: POLYVINYL ALCOHOL OPHTH SOLN 15 ML(LIQUITEARS) OU SCH ×3 (08:55→20:51)
--- NOTE | 2021-01-13 11:27 | IPNPDOC ---
Subjective Date Seen The patient was seen on 01/13/21. Subjective Chief Complaint/HPI Doing much better , up in the chair now. No abdominal pain no nausea or vomiting. Objective Physical Examination General Exam: Positive: Alert, Cooperative, No Acute Distress Eye Exam: Positive: PERRLA, Conjunctiva & lids normal, EOMI; Negative: Sclera icteric ENT Exam: Positive: Atraumatic, Mucous membr. moist/pink, Pharynx Normal Neck Exam: Positive: Supple; Negative: JVD, thyromegaly Chest Exam: Positive: Clear to auscultation, Normal air movement Heart Exam: Positive: Rate Normal, Regular Rhythm, Normal S1, Normal S2; Negative: Murmurs, Rubs Abdomen Exam: Positive: Normal bowel sounds, Soft, Other (tympanitic. ); Negative: Tenderness Extremity Exam: Negative: Clubbing, Cyanosis, Edema Assessment /Plan Assessment This 55-year-old female with MS, Neurogenic bladder s/p cystectomy for this with ileal conduit creation, now with urostomy bag, CKD stage 3, neurogenic bowels, epilepsy, morbid obesity, History of recurrent UTIs COPD, Hypertension, Torticollis, Pseudobulbar affect, Microcytic anemia, B12 deficiency, Vitamin D deficiency, Migraines, GERD, Chronic back pain, Anxiety/depression, Hepatic steatosis was brought into the hospital by EMS because her noticed that she has been lethargic for about 2 days not able to take her meds or food and unable to stay awake for more than an hour. Patient was started on fentanyl 2 months ago and apparently the remove the patch 2 days ago. The patient was noted to be fairly lethargic with bradypnea and received 4 doses of Narcan. Octavio was admitted for acute metabolic encephalopathy thought to be due to Fentanyl and UTI. She also had TERRELL on CKD. Small bowel ileus Vs partial SBO resolved tolerating diet. having regular bowel movements. TERRELL on CKD creatinine improving again. Mostly ranging in the 1.4 to 1.6 range. Obstructive uropathy due to obstruction of urostomy opening and obstruction of ureters draining into ileal conduit by large ovarian cysts. Creatine did Improve after placement of catheter through the urostomy opening though did not normalize Renal US 01/12/21 no improvement in chronic hydronephrosis. Bilateral hydronephrosis due to large right ovarian mass compressing the distal ureters bilaterally as they course to the uretero-ileal anastomosis porter in urostomy. - Seen by urology (Dr. Andre initially and now Dr. Saha ), oracle forms developer (Dr. Garcia) please refer to consult notes. For now leaving porter in, watching Cr. If Cr increases may require removal of right ovarian cystadenoma. Porter in urostomy to be changed once a month. Same size porter to be placed and should be marked before pulling out how much was inside. Can be done by nurses at bedside and can be caught. Discussed with Dr Saha. Acute metabolic encephalopathy-- resolved. in the setting of polypharmacy/sedative medications/ Narcotics and UTI Most likely due to fentanyl. re-introduce her pain meds gradually again - started lyrica 150 BID and baclofen. No further fentanyl to be given. Providencia UTI, hx of recurrent UTI complicated by problem below Afebrile since 12/27/20, WBC wnl UCx above completed 14 days of meropenem as per ID - resumed weekly prophylactic fosfomycin Secondary progressive multiple sclerosis Per neuro, possibly pseudo-exacerbation 2/2 to UTI Do not treat with steroids unless seen to have active lesion MRI with gadolinium: no active demyelination C/w PT/OT restarted on amantadine, lyrica and baclofen. Seizure disorder continued on keppra and phenytoin. 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 PT/OT. ARU when bed available Plan/VTE VTE Prophylaxis Ordered?: Yes VTE Exclusion Mechanical Proph: N/A:VTE Prophy Ordered VS, I&O, 24H, Fishbone Vital Signs/I&O Vital Signs Date Time Temp Pulse Resp B/P (MAP) Pulse Ox O2 Delivery O2 Flow Rate FiO2 01/13/21 06:00 99.0 88 18 107/72 (84) 95 Room Air I&O- Last 24 Hours up to 6 AM 01/13/21 06:00 Intake Total 2160 ml Output Total 1065 ml Balance 1095 ml Laboratory Data 24H LABS Laboratory Tests 2 01/13/21 06:34: Immature Granulocyte % (Auto) 0.8, Neutrophils (%) (Auto) 76.4H, Lymphocytes (%) (Auto) 8.8L, Monocytes (%) (Auto) 8.9H, Eosinophils (%) (Auto) 4.9H, Basophils (%) (Auto) 0.2, Neutrophils # (Auto) 4.7, Lymphocytes # (Auto) 0.5L, Monocytes # (Auto) 0.6, Eosinophils # (Auto) 0.3, Basophils # (Auto) 0.0, Nucleated Red Blood Cells % (auto) 0.0, Anion Gap 10, Glomerular Filtration Rate 36.7L, Calcium Level 7.9L CBC/BMP Laboratory Tests 01/13/21 06:34 NATE ROSADO MD Jan 13, 2021 11:27
[2021-01-13 14:00] VITALS: BP 121/74
[2021-01-13] MEDS: ASPIRIN 81 MG ENTERIC TAB PO SCH (20:49)
[2021-01-13] MEDS: PHENYTOIN ER 100 MG CAP PO SCH (20:49)
[2021-01-13] MEDS: MAGNESIUM OXIDE 400MG TAB (MAG-OX) PO SCH (20:49)
[2021-01-13] MEDS: ARIPiprazole 2 MG TAB PO SCH (20:49)
[2021-01-13 22:00] VITALS: BP 108/72
[2021-01-14] MEDS: LEVOTHYROXINE 50MCG TABLET (0.05MG) PO SCH (05:49)
[2021-01-14 05:56] LABS: BASO % 0.3 % (0.0-1.0); EOS # 0.4 10^3/uL (0.0-0.5); EOS % 5.2 % (0.0-3.0); HEMATOCRIT 27.7 % (36.0-47.0); HEMOGLOBIN 8.3 g/dl (12.0-15.5); LYMPH # 0.5 10^3/uL (1.5-5.0); LYMPH % 6.1 % (24.0-44.0); MEAN CORPUSCULAR HEMOGLOBIN 25.9 pg (27.0-33.0); MEAN CORPUSCULAR VOLUME 86.6 fl (80.0-96.0); MONO # 0.6 10^3/uL (0.0-0.8); NEUTROPHILS # 6.3 10^3/uL (1.5-8.5); PLATELET COUNT, AUTOMATED 194 10^3/uL (150-450); WHITE BLOOD COUNT 7.9 10^3/uL (4.0-10.0)
[2021-01-14 06:00] VITALS: BP 110/72
[2021-01-14 06:23] LABS: CALCIUM LEVEL 7.9 MG/DL (8.5-10.1); CREATININE FOR GFR 1.56 MG/DL (0.55-1.30); POTASSIUM SERUM 3.2 MEQ/L (3.5-5.1)
[2021-01-14 09:00] VITALS: BP 134/76
[2021-01-14] MEDS: BISACODYL 5 MG TAB PO SCH (09:00)
[2021-01-14] MEDS: ACYCLOVIR 200 MG CAPSULE PO SCH ×2 (10:09→20:27)
[2021-01-14] MEDS: AMANTADINE 100MG TABLET PO SCH ×2 (10:09→20:27)
[2021-01-14] MEDS: levETIRAcetam 250MG TABLET (KEPPRA) PO SCH ×2 (10:10→20:27)
[2021-01-14] MEDS: POTASSIUM CHLORIDE 10 MEQ SR TABLET PO SCH ×3 (10:10→13:15)
[2021-01-14] MEDS: BACLOFEN 10 MG TAB PO SCH ×2 (10:11→20:26)
[2021-01-14] MEDS: ATORVASTATIN 20 MG TAB PO SCH (10:11)
[2021-01-14] MEDS: DULoxetine 30 MG CAP (CYMBALTA) PO SCH ×2 (10:12→20:28)
[2021-01-14] MEDS: PANTOPRAZOLE 40MG TAB (PROTONIX) PO SCH ×2 (10:13→20:27)
[2021-01-14] MEDS: PREGABALIN 75 MG CAP(LYRICA) PO SCH ×2 (10:13→20:27)
[2021-01-14] MEDS: SENOKOT S TAB PO SCH ×2 (10:13→20:27)
[2021-01-14] MEDS: SODIUM CHLORIDE 0.9% INJ 10 ML SYR IV SCH ×2 (10:14→14:12)
[2021-01-14] MEDS: ENOXAPARIN 30MG/0.3ML SYRINGE (J1650 PER 10MG) SC SCH (10:15)
[2021-01-14] MEDS: POLYVINYL ALCOHOL OPHTH SOLN 15 ML(LIQUITEARS) OU SCH ×3 (10:16→20:28)
[2021-01-14 10:30] VITALS: BP 134/76
[2021-01-14 13:51] VITALS: BP 119/79
[2021-01-14] MEDS: ONDANSETRON 4MG/2ML VIAL IV PRN (14:11)
--- NOTE | 2021-01-14 14:52 | IPNPDOC ---
Date Seen The patient was seen on 01/14/21. Progress Note SUBJECTIVE: Patient seen in the morning, comfortable in chair, without new complaints at this time. She reports that she is at baseline health and wishing to go home. PHYSICAL EXAMINATION: VITAL SIGNS: Please see below. GENERAL: Obese HEENT: Normocephalic, atraumatic, moist mucous membranes NECK: Supple CARDIOVASCULAR EXAMINATION: S1, S2, no murmurs RESPIRATORY EXAMINATION: Basilar rhonchi ABDOMINAL EXAMINATION: Soft, nontender, nondistended, positive bowel sounds, ileal conduit opening with ostomy and Orellana in place. EXTREMITIES: Range of motion intact SKIN: No rash NEUROLOGICAL EXAMINATION: Alert and oriented 3, no focal deficits PSYCHIATRIC EXAMINATION: Calm and cooperative LABORATORY DATA, IMAGING STUDIES, MICROBIOLOGY: Please see below. ASSESSMENT AND PLAN: 55-year-old female with past medical history of multiple sclerosis, neurogenic bladder, status post cystectomy and ileal conduit was admitted for altered mental status, UTI and acute on chronic kidney disease. PROBLEMS: 1. Acute on chronic kidney disease: Likely secondary to obstruction caused by stenosis of ileal conduit opening, status post Orellana catheter placement by urology with improvement in creatinine close to baseline. Patient also has chronic hydronephrosis, imaging is also showing ovarian mass compressing bilateral ureters, evaluated by LANGUAGES AND LITERATURE INSTRUCTOR, no plan for intervention at this time. Will require close outpatient monitoring for possible worsening of hydronephrosis and subsequently renal function. Renal function had returned to baseline but creatinine has slowly been trending up over the past few days, will monitor. Hypokalemia, chronic. Given additional dose of oral potassium in addition to home dose. 2. Altered mental status/UTI: Status post 2 weeks of IV antibiotics, continue prophylactic fosfomycin. 3. Multiple sclerosis. Unlikely to be the cause of altered mental status, at baseline. Continue home meds 4. Seizure disorder. Continue phenytoin and Keppra 5. Hypothyroidism. Continue levothyroxine DVT prophylaxis: Lovenox. GI prophylaxis: Home PPI VS, I&O, 24H, Fishbone Vital Signs/I&O Vital Signs Date Time Temp Pulse Resp B/P (MAP) Pulse Ox O2 Delivery O2 Flow Rate FiO2 01/14/21 13:51 98.1 106 17 119/79 (92) 97 Room Air I&O- Last 24 Hours up to 6 AM 01/14/21 06:00 Intake Total 2480 ml Output Total 2100 ml Balance 380 ml Laboratory Data 24H LABS Laboratory Tests 2 01/14/21 05:37: Immature Granulocyte % (Auto) 1.4, Neutrophils (%) (Auto) 80.0H, Lymphocytes (%) (Auto) 6.1L, Monocytes (%) (Auto) 7.0, Eosinophils (%) (Auto) 5.2H, Basophils (%) (Auto) 0.3, Neutrophils # (Auto) 6.3, Lymphocytes # (Auto) 0.5L, Monocytes # (Auto) 0.6, Eosinophils # (Auto) 0.4, Basophils # (Auto) 0.0, Nucleated Red B lood Cells % (auto) 0.0, Anion Gap 8, Glomerular Filtration Rate 37.0L, Calcium Level 7.9L CBC/BMP Laboratory Tests 01/14/21 05:37 ANDRZEJ RAMÍREZ MD Jan 14, 2021 14:52
[2021-01-14] MEDS: PHENYTOIN ER 100 MG CAP PO SCH (20:26)
[2021-01-14] MEDS: ASPIRIN 81 MG ENTERIC TAB PO SCH (20:27)
[2021-01-14] MEDS: MAGNESIUM OXIDE 400MG TAB (MAG-OX) PO SCH (20:27)
[2021-01-14] MEDS: ARIPiprazole 2 MG TAB PO SCH (20:27)
[2021-01-14 21:02] VITALS: BP 114/73
[2021-01-15] MEDS: LEVOTHYROXINE 50MCG TABLET (0.05MG) PO SCH (05:32)
[2021-01-15 06:00] VITALS: BP 113/73
[2021-01-15 06:57] LABS: ALBUMIN 2.6 GM/DL (3.2-5.2); BILIRUBIN,TOTAL 0.4 MG/DL (0.2-1.0); CREATININE FOR GFR 1.71 MG/DL (0.55-1.30); GLOMERULAR FILTRATION RATE 33.2 (>51); POTASSIUM SERUM 4.1 MEQ/L (3.5-5.1); TOTAL PROTEIN 5.6 GM/DL (6.4-8.2)
[2021-01-15] MEDS: ACYCLOVIR 200 MG CAPSULE PO SCH (08:40)
[2021-01-15] MEDS: SENOKOT S TAB PO SCH (08:41)
[2021-01-15] MEDS: PREGABALIN 75 MG CAP(LYRICA) PO SCH (08:41)
[2021-01-15] MEDS: BACLOFEN 10 MG TAB PO SCH (08:41)
[2021-01-15] MEDS: AMANTADINE 100MG TABLET PO SCH (08:41)
[2021-01-15] MEDS: ATORVASTATIN 20 MG TAB PO SCH (08:41)
[2021-01-15] MEDS: POTASSIUM CHLORIDE 10 MEQ SR TABLET PO SCH (08:42)
[2021-01-15] MEDS: PANTOPRAZOLE 40MG TAB (PROTONIX) PO SCH (08:42)
[2021-01-15] MEDS: levETIRAcetam 250MG TABLET (KEPPRA) PO SCH (08:42)
[2021-01-15] MEDS: BISACODYL 5 MG TAB PO SCH (08:42)
[2021-01-15] MEDS: DULoxetine 30 MG CAP (CYMBALTA) PO SCH (08:42)
[2021-01-15] MEDS: ENOXAPARIN 30MG/0.3ML SYRINGE (J1650 PER 10MG) SC SCH (08:43)
[2021-01-15] MEDS: POLYVINYL ALCOHOL OPHTH SOLN 15 ML(LIQUITEARS) OU SCH (08:44)
[2021-01-15] MEDS: SODIUM CHLORIDE 0.9% INJ 10 ML SYR IV SCH (08:44)
--- NOTE | 2021-01-15 13:29 | DS.PDOC ---
Discharge Summary General Date of Admission Dec 18, 2020 at 18:15 Date of Discharge 01/15/2021 Attending Physician: ANDRZEJ RAMÍREZ MD Discharge Summary PROCEDURES PERFORMED DURING STAY: None. ADMITTING DIAGNOSES: 1. . Acute on chronic kidney disease, acute encephalopathy, bilateral hydronephrosis, UTI. DISCHARGE DIAGNOSES: 1. , Acute on chronic kidney disease, acute encephalopathy, bilateral hydronephrosis, UTI. COMPLICATIONS/CHIEF COMPLAINT: Acute Encephalopathy. HISTORY OF PRESENT ILLNESS: 55-year-old female with a complicated past medical history was admitted for acute encephalopathy, thought to be from UTI and side effects of her medications. Her mentation improved after opiate medications were held and her infection was treated. She completed a two-week course of IV antibiotics and now remains on fosfomycin prophylactically. She was evaluated by infectious disease during her hospitalization. Her acute on chronic kidney disease was likely related to obstruction, she had a Orellana catheter placed by urology due to stenosis of ileal pouch opening. She will be discharged with this Orellana catheter and follow with urology in the outpatient setting. Her acute kidney injury, resolved with placement of this Orellana and resolution of obstruction. Her imaging continues to have bilateral hydronephrosis which is chronic and unchanged despite improvement in creatinine. She was found to have an ovarian mass which is causing obstruction of bilateral ureters and likely c ontributing to hydronephrosis. She was invited by COMMUNITY DEVELOPMENT MANAGER and because renal function improved no intervention was performed to resolve the obstruction. Goal is for the patient to follow-up with urology, nephrology, and COMMUNITY DEVELOPMENT MANAGER in the outpatient setting to keep a close eye on this hydronephrosis and renal function as she may require surgical intervention in the future to resolve the obstruction. Patient is now back to her baseline. Clinically, creatinine slightly elevated compared to baseline, which may be related to progression of chronic kidney disease or hydronephrosis. Patient continues to have good urine output and clinically stable at this time. Patient will be discharged today with close follow-up with the specialties listed above in the near future. Patient and at bedside, are agreeable with this plan at this time. HOSPITAL COURSE: As above. DISCHARGE MEDICATIONS: Please see below. ALLERGIES: Please see below. PHYSICAL EXAMINATION: VITAL SIGNS: Please see below. GENERAL: No distress HEENT: Normocephalic, atraumatic, moist mucous membranes CARDIOVASCULAR EXAMINATION: S1, S2, no murmurs RESPIRATORY EXAMINATION: Basilar rhonchi, no wheezing ABDOMINAL EXAMINATION: Soft, nontender, nondistended, positive bowel sounds, ostomy pouch with urine in Orellana catheter in place EXTREMITIES: Minimal edema SKIN: No rash PSYCHIATRIC EXAMINATION: Calm and cooperative LABORATORY DATA: Please see below. PROGNOSIS: Fair ACTIVITY: As tolerated. DIET: Cardiac DISCHARGE PLAN: Follow-up with urology, nephrology COMMUNITY DEVELOPMENT MANAGER PCP in 1-2 weeks DISPOSITION: Home with services. DISCHARGE INSTRUCTIONS: 1. As above. DISCHARGE CONDITION: Stable. TIME SPENT ON DISCHARGE: Greater than 35 minutes. Vital Signs/I&Os Vital Signs Date Time Temp Pulse Resp B/P (MAP) Pulse Ox O2 Delivery O2 Flow Rate FiO2 01/15/21 06:00 99.4 86 18 113/73 (86) 95 Room Air I&O- Last 24 Hours up to 6 AM 01/15/21 06:00 Intake Total 2430 ml Output Total 2725 ml Balance -295 ml Laboratory Data Labs 24H Laboratory Tests 2 01/15/21 06:14: Anion Gap 8, Glomerular Filtration Rate 33.2L, Calcium Level 8.0L, Total Bilirubin 0.4, Aspartate Amino Transf (AST/SGOT) 6L, Alanine Aminotransferase (ALT/SGPT) 13, Alkaline Phosphatase 215H, Total Protein 5.6L, Albumin 2.6L, Albumin/Globulin Ratio 0.9L CBC/BMP Laboratory Tests 01/15/21 06:14 Discharge Medications Scheduled Acyclovir (Acyclovir) 400 Mg Tab, 400 MG PO BID, (Reported) Amantadine HCl (Amantadine) 100 Mg Tablet, 100 MG PO BID, (Reported) Aripiprazole (Aripiprazole) 2 Mg Tablet, 2 MG PO QHS, (Reported) Aspirin (Ecotrin) 81 Mg Tablet.dr, 81 MG PO QHS, (Reported) Atorvastatin Calcium (Atorvastatin Calcium) 40 Mg Tablet, 40 MG PO DAILY, (Reported) Baclofen (Baclofen) 20 Mg Tablet, 40 MG PO BID, (Reported) Clonazepam (Clonazepam) 1 Mg Tab, 1 MG PO QHS, (Reported) Duloxetine Hcl (Duloxetine HCl) 60 Mg Capsule.dr, 60 MG PO BID, (Reported) Ergocalciferol (Vitamin D2) (Vitamin D2) 50,000 Units Cap, 50,000 UNITS PO 1XWK, (Reported) FRIDAYS Fentanyl (Fentanyl) 25 Mcg Patch.td72, 25 MCG TOP Q3RD, (Reported) REMOVED 12/18/20 @ 0900, WAS DUE TO REPLACE AFTER SHOWER Fosfomycin Tromethamine (Fosfomycin Tromethamine) 3 Gram Packet, 3 GM PO QWEEK, (Reported) FRIDAYS Hydroxyzine HCl (Hydroxyzine HCl) 50 Mg Tablet, 50 MG PO BID, (Reported) Levetiracetam (Keppra) 500 Mg Tablet, 500 MG PO BID, (Reported) Levothyroxine Sodium (Levothyroxine Sodium) 50 Mcg Tablet, 50 MCG PO QAM, (Reported) 30 MINUTES BEFORE BREAKFAST Magnesium Oxide (Magnesium) 500 Mg Capsule, 500 MG PO QHS, (Reported) Melatonin (Melatonin) 10 Mg Capsule, 10 MG PO QHS, (Reported) Meloxicam (Meloxicam) 15 Mg Tablet, 15 MG PO DAILY, (Reported) Pantoprazole Sodium (Pantoprazole Sodium) 40 Mg Tablet.dr, 40 MG PO BID, (Reported) Phenytoin Sodium Extended (Phenytoin Sodium Extended) 100 Mg Capsule, 400 MG PO QHS, (Reported) Potassium Chloride (Potassium Chloride) 10 Meq Tab.er.prt, 10 MEQ PO DAILY, (Reported) Pregabalin (Lyrica) 300 Mg Capsule, 300 MG PO BID, (Reported) Sennosides/Docusate Sodium (Senokot-S Tablet) 1 Each Tablet, 1 TAB PO QHS, (Reported) Scheduled PRN Albuterol Sulfate (Ventolin Hfa) 108 Mcg/Act Aer, 2 PUFFS INH Q4H PRN for SHORTNESS OF BREATH, (Reported) Mometasone Furoate (Asmanex Hfa) 100 Mcg/Act Hfa.aer.ad, 1 PUFF INH BID PRN for ASTHMA SYMPTOMS, (Reported) Promethazine HCl (Promethazine HCl) 25 Mg Tablet, 25 MG PO Q4H PRN for NAUSEA OR VOMITING, (Reported) FOR NAUSEA RELATED TO MIGRAINES Allergies Coded Allergies: Cephalosporins (Verified Allergy, Intermediate, rash, 12/27/19) Sulfa (Sulfonamide Antibiotics) (Verified Allergy, Mild, itchy, 12/27/19) oxycodone (Verified Allergy, Mild, itchy, 12/27/19) hydrocodone (Verified Adverse Reaction, Intermediate, chest pain, 12/27/19) acetaminophen (Verified Adverse Reaction, Mild, NAUSEA, 12/27/19) ANDRZEJ RAMÍREZ MD Jan 15, 2021 13:29
== END 2021-01-15 14:30 | disposition home health service (06) | DRG 682 ==
LOC: M ED 16:41 → EDBD 16:41 → M ED INP 18:15 → ENRESERV 21:37 → M PCU 23:30 → M MS5PR 01-03 10:45
PROVIDERS: ADMIT Internal Medicine; ATTEND Internal Medicine
PROC: 009U3ZX Drainage of Spinal Canal, Percutaneous Approach, Diagnostic (ICD-10-PCS; principal; 2020-12-27)
DX: N17.9 Acute kidney failure, unspecified (principal); G92 Toxic encephalopathy; K59.2 Neurogenic bowel, not elsewhere classified; N39.0 Urinary tract infection, site not specified; E87.0 Hyperosmolality and hypernatremia; Z94.84 Stem cells transplant status; K56.7 Ileus, unspecified; Z68.41 Body mass index [BMI] 40.0-44.9, adult; G40.909 Epilepsy, unspecified, not intractable, without status epilepticus; G35 Multiple sclerosis; N31.9 Neuromuscular dysfunction of bladder, unspecified; J44.9 Chronic obstructive pulmonary disease, unspecified; I12.9 Hypertensive chronic kidney disease with stage 1 through stage 4 chronic kidney disease, or unspecified chronic kidney disease; M43.6 Torticollis; F48.2 Pseudobulbar affect; R20.0 Anesthesia of skin; D50.9 Iron deficiency anemia, unspecified; E53.8 Deficiency of other specified B group vitamins; E55.9 Vitamin D deficiency, unspecified; N18.30 Chronic kidney disease, stage 3 unspecified; G43.909 Migraine, unspecified, not intractable, without status migrainosus; G89.4 Chronic pain syndrome; K21.9 Gastro-esophageal reflux disease without esophagitis; K59.00 Constipation, unspecified; F41.9 Anxiety disorder, unspecified; F32.9 Major depressive disorder, single episode, unspecified; E66.01 Morbid (severe) obesity due to excess calories; K76.0 Fatty (change of) liver, not elsewhere classified; R53.81 Other malaise; I95.9 Hypotension, unspecified; R06.89 Other abnormalities of breathing; N13.6 Pyonephrosis; D27.0 Benign neoplasm of right ovary; E87.6 Hypokalemia; E03.9 Hypothyroidism, unspecified; T40.605A Adverse effect of unspecified narcotics, initial encounter; D27.1 Benign neoplasm of left ovary; Z79.82 Long term (current) use of aspirin; Z79.899 Other long term (current) drug therapy; Z88.1 Allergy status to other antibiotic agents; Z88.2 Allergy status to sulfonamides; Z85.828 Personal history of other malignant neoplasm of skin; Z88.5 Allergy status to narcotic agent; Z88.6 Allergy status to analgesic agent; Z90.710 Acquired absence of both cervix and uterus; Z93.6 Other artificial openings of urinary tract status

== ENCOUNTER 2021-01-16 12:15 | Inpatient (IN) | payer MEDICARE, BC, OTHER, MEDICAID ==
[~2021-01-16] VITALS: Ht 152.4 cm; Wt 97.6 kg
[~2021-01-16 12:15] MED LIST changes: +FENT1DIS14 TOP; +FOSF3PAC2 PO; +MELA10CA PO; +PANT-23 PO
[2021-01-16 13:26] LABS: BASO % 0.1 % (0.0-1.0); EOS # 0.1 10^3/uL (0.0-0.5); EOS % 1.5 % (0.0-3.0); HEMATOCRIT 24.5 % (36.0-47.0); HEMOGLOBIN 7.5 g/dl (12.0-15.5); LYMPH # 0.4 10^3/uL (1.5-5.0); LYMPH % 5.7 % (24.0-44.0); MEAN CORPUSCULAR HEMOGLOBIN 26.3 pg (27.0-33.0); MEAN CORPUSCULAR HGB CONC 30.6 g/dl (32.0-36.5); MONO # 0.7 10^3/uL (0.0-0.8); NEUTROPHILS # 5.5 10^3/uL (1.5-8.5); NEUTROPHILS % 81.4 % (36.0-66.0); PLATELET COUNT, AUTOMATED 163 10^3/uL (150-450); RED BLOOD COUNT 2.85 10^6/uL (4.00-5.40); WHITE BLOOD COUNT 6.8 10^3/uL (4.0-10.0)
--- NOTE | 2021-01-16 13:50 | REP ---
INDICATION: Altered Mental Status. COMPARISON: Comparison chest x-ray 26 December 2020. TECHNIQUE: Portable upright AP chest radiograph. FINDINGS: A right-sided [id number] catheter is noted. Monitoring electrodes are seen. The lungs are symmetrically aerated and free of infiltrate. Pleural angles are sharp. Heart is not felt to be enlarged. No acute bony abnormality is seen.. IMPRESSION: No active disease. <Electronically signed by Chan Villa > 01/16/21 [id number]
[2021-01-16 13:56] LABS: ALBUMIN 2.5 GM/DL (3.2-5.2); BILIRUBIN,DIRECT 0.1 MG/DL (0.0-0.2); BILIRUBIN,TOTAL 0.3 MG/DL (0.2-1.0); CALCIUM LEVEL 7.5 MG/DL (8.5-10.1); CREATININE FOR GFR 1.82 MG/DL (0.55-1.30); GLOMERULAR FILTRATION RATE 30.9 (>51); POTASSIUM SERUM 3.9 MEQ/L (3.5-5.1); THYROID STIMULATING HORMONE 0.489 uIU/ML (0.358-3.740); TOTAL PROTEIN 5.7 GM/DL (6.4-8.2)
--- OUTSIDE RECORDS SUMMARY | 2021-01-16 14:11 | CCD ---
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 Name Role Phone Luis M Morales Unavailable PROBLEMS Type Condition ICD9-CM Code [id number] Code Onset Dates Condition S tatus SNOMED Code Notes Problem Mixed hyperlipidemia E78.2 Active 487018410 Problem Seizure disorder G40.909 Active 834942705 Problem Iron deficiency E61.1 Active 77084674 Problem Vitamin D deficiency E55.9 Active 06623509 Problem Neurogenic bladder N31.9 Active 597840504 Problem Hypomagnesemia E83.42 Active 579399869 Problem Slow transit constipation K59.01 Active 421541 07 Problem HTN, goal below 130/80 I10 Active 14987451 Problem Mild persistent asthma without complication J45.30 Active 896810197 Problem Hypothyroidism (acquired) E03.9 Active 294490 002 Problem Low CD4 cell count determined by flow cytometry D7 2.9 Active 483510202 Problem Hyperammonemia E72.20 Active 5124279 Problem Wheelchair bound Z99.3 Active 990222943 Problem Microcytic anemia D50.9 Active 167288739 Problem Fatty liver disease, nonalcoholic K76.0 Active 671413575 Problem Migraine without status migr ainosus, not intractable, unspecified migraine type G43.909 Active 64924873 Problem Pseudomonas infection A49.8 Active 61954990 Problem Recurrent urinary tract infection N39.0 Active 120894566 Problem 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 Ac tive 224778867 Problem Depression with anxiety F41.8 Active 32401213 6 Problem Stem cells transplant status Z94.84 Active 161 940336 Problem MS (multiple sclerosis) G35 Active 60244836 Problem Chronic pain disorder G89.4 Active 395743472 Problem Lumbago with sciatica, left side M54.42 Active 021958595 Problem Lumbago with sciatica, right side M54.41 Active 282985359 Problem Anemia, chronic disease D63.8 Active 54184573 6 Problem Low back pain at multiple sites M54.5 Active 797193871 ALLERGIES Allergen (clinical drug ingredient) Drug/Non Drug Allergy do cumented on EMR Reaction Allergy Type Onset Date Status Sulfa (for allergy use only) Itching all over Drug Allergy Active acetaminophen / oxycodone Percocet([facility] Code:[address]-05) Proje ctile vomiting Drug Allergy Active Acetaminophen Nausea Drug Allergy Active acetaminophen / hydrocodone Hydrocodone-Acetaminophen([facility] Co de:[address]-75) Chest pain Drug Allergy Active ENCOUNTERS from 1967 to 2020-12-20 Encounter Location Date Provider Diagnosis [facility] [address] [place] [address] Nov, Mervin Morales IMMUNIZATIONS Vaccine Route Administration Date Status Influenza [...] School Language: Question Answer Notes Languages spoken: Stateless Restorationism: Question Answer Notes Restorationism 21 Worship Sexual Hx: Question Answer Notes Had sex [...] Notes Start Da te End Date Status Pantoprazole Sodium 40 MG 1 tablet Orally bid for 30 day(s) Aug, Active Promethazine HCl 25 MG 1 tablet Orally every 4 hour s as needed for nausea related to migraine headaches for 30 Days Active Ondansetron HCl 8 MG 1 tablet as needed Orally Once a day for 30 day( s) Active Lyrica 300 MG 1 capsule Orally Twice a day. Code D for 90 Active Fentanyl 12 MCG/HR 2 patch to skin Transdermal q 3 days Active Atorvastatin Calcium 40 MG 1 tablet Orally Once a day for 90 day (s) May, Active HydrOXYzine HCl 50 1 tablet as needed Orally twice daily for 90 day(s ) Active Duloxetine HCl 60 MG 1 capsule Orally twice daily for 90 day(s) Active Aripiprazole 2 1 tablet Orally Once a day for 90 day(s) Active Meloxicam 15 MG 1 tablet Orally Once a day for 90 Active Acyclovir 400 MG 1 tablet Orally Twice a day for 90 days Active Monurol 3 GM 1 packet Orally weekly for 90 day(s) Active Amantadine HCl 100 MG 1 cap Orally Twice a day Active Senokot S 8.6-50 MG 1 tablet in the evening as n eeded Orally twice daily as needed for 90 day(s) Nov, Active Keppra 500 MG 1 tablet Orally Twice a day for 90 days Active Albuterol Sulfate HFA 108 (90 Base) MCG/ACT 2 puffs as needed Inhalation every 4 hrs for 30 Days Active TraZODone HCl 150 MG 1 tablet at bedtime Orally Once a day Active Ergocalciferol 60534 UNIT 1 capsule Orally once a week on for 90 day(s) Jul, Active Baclofen 20 MG 1 tab Orally tid for 90 Active Asmanex HFA 100 MCG/ACT 2 puffs Inhalation BID for 30 Days Active Potassium Chloride CR 10 mEq 1 tab orally Daily for 90 day(s) Oct, Active Phenytoin Sodium Extended 100 MG 4 tabs Orally at bedtime Active Daraprim 25 mg 1 tablet Orally every other day Active Aspirin 81 MG 1 tablet Orally Once a day for 30 day(s) Jul, Active Synthroid 50 MCG 1 tablet on an empty stomach in the morning Orally Once a day for 90 day(s) Active Morphine Sulfate 10 MG/5ML 2.5 -5 ml orally four times daily as needed- MDD 20 ml for 30 days May, Not-Taking Clonazepam 1 mg 1 tablet Orally bid Active PROCEDURES No Information RESULTS No Results REASON FOR VISIT lyrica MEDICAL (GENERAL) HISTORY Type Description Date Medical History [facility] 08/16: full code, trial vent/IVF/TF Medical History MS (relapsing)- Dr Rony el (neuro) in [facility]; Neuro UR; underwent autologous stem-cell transplant in [place] 02/15 Medical History Seizure disorder - Dr Rony Avila (radha ro) in [facility] Medical History Neurogenic bladder/ neurogen ic bowel - Dr Marshall (urology) in [facility] Medical History HTN Medical History torticollis- Dr Rony Avila (neuro) in [facility] Medical History pseudobulbar affect- Dr Rony Avila (n euro) in [facility] Medical History paresthesias Medical History hyponatremia secondary to oxcarbazine Medical History multi-dermal shingles secondary to immun osuppression Medical History microcytic anemia Medical History B12 deficiency Medical History vitamin D deficiency Medical History migraines Medical History Obesity; Sleep study with Dr Swapnil Lerma in [place], [place]. No sleep apnea Medical History Pseudobulbar affect Medical History chronic low back pain, [place] 08/17 showed L2 sclerosis, no fx Medical History recurrent UTI--pseudomonas, enterococcal faecalis--sees Dr Lobato/ID Medical History autologous stem cell transpl ant in [place] 02/15; followed by DR banda at [facility]/Onc, who will be revaccinating pt s/p ASCT Surgical History Breast recuction 1991 Surgical History B/L Wrist surgery - Dr Adkins - [place] Surgical History Bladder removal/ urostomy - Dr Valentine ([facility]) 06/2017 Surgical History Hysterectomy Surgical History Tubal Ligation Surgical History Moehs for Basal cell Ca - no se, Leg, shoulder, neck - Dr Alcantara -[place], Dr Alonso - [place] Surgical History Port placement for chemo and [...] No Information FUNCTIONAL STATUS No Information ASSESSMENTS No Information PLAN OF TREATMENT Medication Medication Name Sig Start Date Stop Date Daraprim 25 mg 1 tablet Orally every other day Clonazepam 1 mg 1 tablet Orally bid Phenytoin Sodium Extended 100 MG 4 tabs Orally at bedtime Amantadine HCl 100 MG 1 cap Orally Twice a day Meloxicam 15 MG 1 tablet Orally Once a day for 90 Lyrica 300 MG 1 capsule Orally Twice a day. Code D for 90 Pantoprazole Sodium 40 MG 1 tablet Orally bid for 30 day(s) 30 O 2019 Acyclovir 400 MG 1 tablet Orally Twice a day for 90 days Baclofen 20 MG 1 tab Orally tid for 90 Keppra 500 MG 1 tablet Orally Twice a day for 90 days Next Appt Details Provider Name:Luis M Morales, 2020-11 01:15:00 PM, [address] [place] [address], [phone], Provider Name:Priyanka Vuong, 02:00:00 PM, [address] [facility], 1st Floor, [place], [address], Provider Name:Luis M Morales, 2021-02 01:15:00 PM, [address] [place] [address], [phone], Insurance Providers Payer Name Payer Address Payer Phone Insured Name Patient Relati onship to Insured Coverage Start Date Coverage End Date [facility] [address] [facility] [id number] [phone] MONI YANG self MEDICAID [employer] [address] [facility] [id number] MONI YANG self MEDICARE Part A and B [address] [facility] [phone] MONI YANG self
--- OUTSIDE RECORDS SUMMARY | 2021-01-16 14:11 | CCD ---
Author Author [facility] Organization [facility] Address Unknown Phone Unavailable Care Team Providers Care Customer Facilities Supervisor Name Role Phone Luis M Morales Unavailable PROBLEMS Type Condition ICD9-CM Code [id number] Code Onset Dates Condition S tatus SNOMED Code Notes Problem Mixed hyperlipidemia E78.2 Active 212986594 Problem Seizure disorder G40.909 Active 097339187 Problem Iron deficiency E61.1 Active 30061676 Problem Vitamin D deficiency E55.9 Active 09426156 Problem Neurogenic bladder N31.9 Active 760960416 Problem Hypomagnesemia E83.42 Active 381796431 Problem Slow transit constipation K59.01 Active 325111 07 Problem HTN, goal below 130/80 I10 Active 17092687 Problem Mild persistent asthma without complication J45.30 Active 750267256 Problem Hypothyroidism (acquired) E03.9 Active 779641 002 Problem Low CD4 cell count determined by flow cytometry D7 2.9 Active 451546210 Problem Hyperammonemia E72.20 Active 3898191 Problem Wheelchair bound Z99.3 Active 835006558 Problem Microcytic anemia D50.9 Active 382827040 Problem Fatty liver disease, nonalcoholic K76.0 Active 657407022 Problem Migraine without status migr ainosus, not intractable, unspecified migraine type G43.909 Active 71026714 Problem Pseudomonas infection A49.8 Active 54374593 Problem Recurrent urinary tract infection N39.0 Active 802829187 Problem 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 Ac tive 510348644 Problem Depression with anxiety F41.8 Active 84901846 6 Problem Stem cells transplant status Z94.84 Active 161 185726 Problem MS (multiple sclerosis) G35 Active 73752633 Problem Chronic pain disorder G89.4 Active 853483397 Problem Lumbago with sciatica, left side M54.42 Active 673262595 Problem Lumbago with sciatica, right side M54.41 Active 782871866 Problem Anemia, chronic disease D63.8 Active 65530005 6 Problem Low back pain at multiple sites M54.5 Active 808915479 ALLERGIES Allergen (clinical drug ingredient) Drug/Non Drug Allergy do cumented on EMR Reaction Allergy Type Onset Date Status Sulfa (for allergy use only) Itching all over Drug Allergy Active acetaminophen / oxycodone Percocet([facility] Code:[address]-49) Proje ctile vomiting Drug Allergy Active Acetaminophen Nausea Drug Allergy Active acetaminophen / hydrocodone Hydrocodone-Acetaminophen([facility] Co de:[address]-87) Chest pain Drug Allergy Active ENCOUNTERS from 1967 to 2020-12-20 Encounter Location Date Provider Diagnosis [facility] [address] [place] [address] Nov, Mervin Morales IMMUNIZATIONS Vaccine Route Administration [...] School Language: Question Answer Notes Languages spoken: Portuguese Mormon: Question Answer Notes Mormon 21 Confucianist Sexual Hx: Question Answer Notes Had sex [...] bedtime Orally Once a day Active Ergocalciferol 64467 UNIT 1 capsule Orally once a week [...] Information RESULTS No Results REASON FOR VISIT No Information MEDICAL (GENERAL) HISTORY Type Description Date Medical History [facility] 08/16: full code, trial vent/IVF/TF Medical History MS (relapsing)- Dr Rony el (neuro) in [facility]; Neuro UR; underwent autologous stem-cell transplant in [place] 02/15 Medical History Seizure disorder - Dr Rony Avila (radha ro) in [facility] Medical History Neurogenic bladder/ neurogen ic bowel - Dr Marshall (urology) in [facility] Medical History HTN Medical History torticollis- Dr Rony Avila (neuro) in [facility] Medical History pseudobulbar affect- Dr Rony Avila (n euro) in [facility] Medical History paresthesias Medical History hyponatremia secondary to oxcarbazine Medical History multi-dermal shingles secondary to immun osuppression Medical History microcytic anemia Medical History B12 deficiency Medical History vitamin D deficiency Medical History migraines Medical History Obesity; Sleep study with Dr Swapnil Lerma in [place], [place]. No sleep apnea Medical History Pseudobulbar affect Medical History chronic low back pain, CT 08/17 showed L2 sclerosis, no fx Medical History recurrent UTI--pseudomonas, enterococcal faecalis--sees Dr Lobato/ID Medical History autologous stem cell transpl ant in [place] 02/15; followed by DR banda at [facility]/Onc, who will be revaccinating pt s/p ASCT Surgical History Breast recuction 1991 Surgical History B/L Wrist surgery - Dr Adkins - [place] Surgical History Bladder removal/ urostomy - Dr Valentine ([facility]) 06/2017 Surgical History Hysterectomy Surgical History Tubal Ligation Surgical History Moehs for Basal cell Ca - no se, Leg, shoulder, neck - Dr Alcantara -[place], Dr Alonso - [place] Surgical History Port placement for chemo and [...] Provider Name:Luis M Morales, 2020-11 01:15:00 PM, [address] [place] [address], [phone], Provider Name:Priyanka Vuong, 02:00:00 PM, [address] [facility], 1st Floor, [place], [address], Provider Name:Luis M Morales, 2021-02 01:15:00 PM, [address] [place] [address], [phone], Insurance Providers Payer Name Payer Address Payer Phone Insured Name Patient Relati onship to Insured Coverage Start Date Coverage End Date MEDICARE Part A and B [address] [facility] [id number] MONI YANG MEDICAID [employer] [address] [facility] [id number] MONI YANG [facility] [address] [facility] [id number] [phone] MONI YANG self
--- OUTSIDE RECORDS SUMMARY | 2021-01-16 14:12 | CCD ---
Author Author [facility] Organization [facility] Address Unknown Phone Unavailable Care Team Providers Care Hand Washer Name Role Phone Mary Herndon MD Unavailable [...] Unavailable Unavailable Mary Herndon MD Unavailable Unavailable White F Bhavik CASILLAS Unavailable Unavailable White F Bhavik CASILLAS Unavailable Unavailable White F Bhavik CASILLAS Unavailable Unavailable White F Bhavik CASILLAS Unavailable Unavailable White F Bhavik CASILLAS Unavailable Unavailable White F Bhavik CASILLAS Unavailable Unavailable White F Bhavik CASILLAS Unavailable Unavailable White F Bhavik CASILLAS Unavailable Unavailable White F Bhavik CASILLAS Unavailable Unavailable White F Bhavik CASILLAS Unavailable Unavailable White F Bhavik CASILLAS Unavailable Unavailable White F Bhavik CASILLAS Unavailable Unavailable White F Bhavik CASILLAS Unavailable Unavailable White, F Bhavik CASILLAS Unavailable Unavailable White F Bhavik CASILLAS Unavailable Unavailable White, F Bhavik CASILLAS Unavailable Unavailable White, F Bhavik CASILLAS Unavailable Unavailable White, F Bhavik CASILLAS Unavailable Unavailable White, F Bhavik CASILLAS Unavailable Unavailable White F Bhavik CASILLAS Unavailable Unavailable White F Bhavik CASILLAS Unavailable Unavailable White F Bhavik CASILLAS Unavailable Unavailable White F Bhavik CASILLAS Unavailable Unavailable White F Bhavik CASILLAS Unavailable Unavailable White F Bhavik CASILLAS Unavailable Unavailable White F Bhavik CASILLAS Unavailable Unavailable White F Bhavik CASILLAS Unavailable Unavailable White F Bhavik CASILLAS Unavailable Unavailable White F Bhavik CASILLAS Unavailable Unavailable White F Bhavik CASILLAS Unavailable Unavailable White F Bhavik CASILLAS Unavailable Unavailable White F Bhavik CASILLAS Unavailable Unavailable White F Bhavik CASILLAS Unavailable Unavailable White F Bhavik CASILLAS Unavailable Unavailable White F Bhavik CASILLAS Unavailable Unavailable White F Bhavik CASILLAS Unavailable Unavailable White F Bhavik CASILLAS Unavailable Unavailable White F Bhavik CASILLAS Unavailable Unavailable White F Bhavik CASILLAS Unavailable Unavailable White F Bhavik CASILLAS Unavailable Unavailable White F Bhavik CASILLAS Unavailable Unavailable White F Bhavik CASILLAS Unavailable Unavailable Mary Herndon MD Unavailable Unavailable Katrina F Bhavik CASILLAS Unavailable Unavailable White F Bhavik CASILLAS Unavailable Unavailable White F Bhavik CASILLAS Unavailable Unavailable White F Bhavik CASILLAS Unavailable Unavailable White F Bhavik CASILLAS Unavailable Unavailable White F Bhavik CASILLAS Unavailable Unavailable White F Bhavik CASILLAS Unavailable Unavailable White F Bhavik CASILLAS Unavailable Unavailable Katrina F Bhavik CASILLAS Unavailable Unavailable White F Bhavik CASILLAS Unavailable Unavailable ALIASES , DEFAULT / GENERIC [...] GENERIC / UNKNOWN PROVIDER * Unavailable Unavailable LEON, C KENA MD Unavailable [...] C KENA MD Unavailable Unavailable LEON, C KEAN MD Unavailable Unavailable LEON, C KENA MD [...] KENA MD Unavailable Unavailable Chopra, A Deloris SHIPPING LEAD PERSON Unavailable Unavailable Chopra, A Deloris SHIPPING LEAD PERSON Unavailable Unavailable Chopra, A Deloris SHIPPING LEAD PERSON Unavailable Unavailable Chopra, A Deloris SHIPPING LEAD PERSON Unavailable Unavailable Chopra, A Deloris SHIPPING LEAD PERSON Unavailable Unavailable Chopra, A Deloris SHIPPING LEAD PERSON Unavailable Unavailable Chopra, A Deloris SHIPPING LEAD PERSON Unavailable Unavailable Chopra, A Deloris SHIPPING LEAD PERSON Unavailable Unavailable Chopra, A Deloris SHIPPING LEAD PERSON Unavailable Unavailable Chopra, A Deloris SHIPPING LEAD PERSON Unavailable Unavailable Chopra, A Deloris SHIPPING LEAD PERSON Unavailable Unavailable Chopra, A Deloris SHIPPING LEAD PERSON Unavailable Unavailable Chopra, A Deloris SHIPPING LEAD PERSON Unavailable Unavailable Chopra, A Deloris SHIPPING LEAD PERSON Unavailable Unavailable Chopra, A Deloris SHIPPING LEAD PERSON Unavailable Unavailable Chopra, A Deloris SHIPPING LEAD PERSON Unavailable Unavailable Chopra, A Deloris SHIPPING LEAD PERSON Unavailable Unavailable Chopra, A Deloris SHIPPING LEAD PERSON Unavailable Unavailable Chopra, A Deloris SHIPPING LEAD PERSON Unavailable Unavailable Chopra, A Deloris SHIPPING LEAD PERSON Unavailable Unavailable Chopra, A Deloris SHIPPING LEAD PERSON Unavailable Unavailable Chopra, A Deloris SHIPPING LEAD PERSON Unavailable Unavailable Chopra, A Deloris SHIPPING LEAD PERSON Unavailable Unavailable Chopra, A Deloris SHIPPING LEAD PERSON Unavailable Unavailable Chopra, A Deloris SHIPPING LEAD PERSON Unavailable Unavailable Chopra, A Deloris SHIPPING LEAD PERSON Unavailable Unavailable Chopra, A Deloris SHIPPING LEAD PERSON Unavailable Unavailable Chopra, A Deloris SHIPPING LEAD PERSON Unavailable Unavailable Chopra, A Deloris SHIPPING LEAD PERSON Unavailable Unavailable Chopra, A Deloris SHIPPING LEAD PERSON Unavailable Unavailable Chopra, A Deloris SHIPPING LEAD PERSON Unavailable Unavailable Chopra, A Deloris SHIPPING LEAD PERSON Unavailable Unavailable Chopra, A Deloris SHIPPING LEAD PERSON Unavailable Unavailable Chopra, A Deloris SHIPPING LEAD PERSON Unavailable Unavailable Chopra, A Deloris SHIPPING LEAD PERSON Unavailable Unavailable Chopra, A Deloris SHIPPING LEAD PERSON Unavailable Unavailable Chopra, A Deloris SHIPPING LEAD PERSON Unavailable Unavailable Chopra, A Deloris SHIPPING LEAD PERSON Unavailable Unavailable Chopra, A Deloris SHIPPING LEAD PERSON Unavailable Unavailable Chopra, A Deloris SHIPPING LEAD PERSON Unavailable Unavailable Chopra, A Deloris SHIPPING LEAD PERSON Unavailable Unavailable Chopra, A Deloris SHIPPING LEAD PERSON Unavailable Unavailable Chopra, A Deloris SHIPPING LEAD PERSON Unavailable Unavailable Chopra, A Deloris SHIPPING LEAD PERSON Unavailable Unavailable Chopra, A Deloris SHIPPING LEAD PERSON Unavailable Unavailable Chopra, A Deloris SHIPPING LEAD PERSON Unavailable Unavailable Nav, A Deloris SHIPPING LEAD PERSON Unavailable Unavailable Nav, A Deloris SHIPPING LEAD PERSON Unavailable Unavailable Nav, A Deloris SHIPPING LEAD PERSON Unavailable Unavailable PARISH ARRIAGA Unavailable Unavailable Re-disclosure [...] is protected by Article 27-F of the [facility] Public Health law. If you continue you may have access to information: Regarding HIV / AIDS; Provided by facilities licensed or operated by the [facility] Office of Mental Health; or Provided by the [facility] Office for People With Developmental Disabilities. If such information is present, then the following [facility] mandated warning applies: This information has [...] law may result in a fine or chcf sentence or both. A general authorization for the release of medical or other information is NOT sufficient authorization for further disc losure. Allergies and Adverse Reactions Type Description Substance Reaction Status Data Source(s ) DRUG INGREDI [facility] Drug allergy Hydrocodone-Acetaminophen acetaminophen / hydrocodone Chest pain Active eCW1 ([facility]) Drug allergy Percocet acetaminophen / oxycodone Projectile vomiting Active eCW1 ([facility]) Acetaminophen Acetaminophen Acetaminophen Nausea Active eCW1 ([facility]) Acetaminophen Acetaminophen Acetaminophen Nausea Active eCW1 ([facility]) Hydrocodone-Acetaminophen Hydrocodone-Acetaminophen Acetamin ophen 21.7 MG/ML / Hydrocodone Bitartrate 0.5 MG/ML Oral Solution Chest pain Active eCW1 ([facility]) Drug Class SULFA ANTIBIOTICS SULFA ANTIBIOTICS [facility] Acetaminophen Acetaminophen Acetaminophen 32 MG/ML Oral Solution Naus ea Active eCW1 ([facility]) Acetaminophen Acetaminophen Acetaminophen 32 MG/ML Oral Solution Naus ea Active eCW1 ([facility]) Family History Family Member Name Family Member Gender Family Member Status Date o f Status Description Data Source(s) Unknown Male Problem [facility] ([facility] [place]) Encounters Encounter Providers Location Date Indications Data Source(s ) Outpatient Attender: KENA LEON MD 02/05/2021 12:00:00 AM [facility] Unknown [address] [facility] [address] 12/18/2020 12:00:00 AM EST eCW1 (Pending sale to [facility]) Unknown [address] [facility] [address] 12/15/2020 12:00:00 AM EST eCW1 (Pending sale to [facility]) Unknown [address] [facility] [address] 11/11/2020 12:00:00 AM EST eCW1 (Pending sale to [facility]) Outpatient Attender: DEFAULT / GENE ALIX / UNKNOWN PROVIDER ALIASES Attender: PARISH ARRIAGA 11/06/2020 12:00:00 AM EST Stem cells transplant status [facility] Stem cells transplant status Outpatient Attender: Deloris Barillas/ Sean [facility] 10/11/2020 02:30:00 PM EST [facility] ([facility] [place] Office Visit, Est Pt., Level 4 PC [address] [place] [address] 09/27/2020 12:00:00 AM EDT eCW1 (Critical access hospital) Unknown [address] [facility] [address] 09/13/2020 12:00:00 AM EDT eCW1 (Pending sale to [facility]) [place] [address] [facility] [address] 09/11/2020 12:00:00 AM EDT eCW1 ([facility] [place] [address] [facility] [address] 09/02/2020 12:00:00 AM EDT eCW1 ([facility]) Unknown [address] [facility] [address] 08/20/2020 12:00:00 AM EDT eCW1 ([facility]) [place] [address] [facility] [address] 08/20/2020 12:00:00 AM EDT eCW1 ([facility]) [place] [address] [facility] [address] 08/20/2020 12:00:00 AM EDT eCW1 [facility]) Outpatient Attender: KENA LEON MD [id number] 020 12:00:00 AM EDT - 08/07/2020 03:09:34 PM EDT Stem cells transplant status [facility] Stem cells transplant status [facility] [place] [address] [facility] [address] 07/23/2020 12:00:00 AM EDT eCW1 ([facility]) Outpatient [address] [facility] [address] 06/18/2020 12:00:00 AM EDT eCW1 ([facility]) Unknown [address] [facility] [address] 06/18/2020 12:00:00 AM EDT eCW1 ([facility]) Unknown [address] [facility] [address] 06/09/2020 12:00:00 AM EDT eCW1 ([facility]) Unknown [address] [facility] [address] 06/09/2020 12:00:00 AM EDT eCW1 ([facility]) Unknown [address] [facility] [address] 05/21/2020 12:00:00 AM EDT eCW1 (Pending sale to [facility]) Unknown [address] [facility] [place] [address] 05/19/2020 12:00:00 AM EDT eCW1 (Pending sale to [facility]) Outpatient Attender: KENA Rahman-ONCCACTR 020 12:00:00 AM EDT - 05/08/2020 04:13:48 PM EDT Stem cells transplant status [facility] Stem cells transplant status Outpatient Attender: KENA LEON MD 05/02/2020 12:00:00 AM [facility] [address] [facility] [address] 04/25/2020 12:00:00 AM EDT eCW1 (Pending sale to [facility]) Outpatient [address] [place] [address] 04/25/2020 12:00:00 AM EDT eCW1 (Pending sale to [facility]) [facility] [address] [place] [address] [place] [address] 04/16/2020 12:00:00 AM EDT eCW1 (Pending sale to [facility]) Outpatient Attender: KENA LEON MD 04/10/2020 12:00:00 AM [facility] Outpatient Attender: Deloris Barillas/ A.MLily Patten y 04/09/2020 01:00:00 PM EDT [facility] ([facility]) [facility] [address] [facility] Y [address] 03/31/2020 12:00:00 AM EDT eCW1 (Pending sale to [facility]) Outpatient Attender: KENA LEON MD 03/14/2020 12:00:00 AM [facility] Outpatient Attender: KENA Rahman-ONCCACTR 020 12:00:00 AM EDT - 03/13/2020 10:32:44 AM EDT Encounter for examination of potential d onor of organ and tissue [facility] Encounter for examination of potential d onor of organ and tissue [facility] [address] [facility] [place] [address] 03/06/2020 12:00:00 AM EDT eCW1 ([facility]) [facility] [address] [place] [address], [place] [address] 03/05/2020 12:00:00 AM EDT [facility]CW[facility] [address] [place] [address], [place] [address] 03/05/2020 12:00:00 AM EDT eCW1 [facility] [address] [place] [address], [place] [address] 03/05/2020 12:00:00 AM EDT [facility]CW1 [facility]) Outpatient Referrer: Bhavik Herndon MD 02/26/2020 02:46:00 PM EDT [facility] [address] [place] [address], [place] [address] 02/26/2020 12:00:00 AM EDT eCW1 ([facility]) [facility] [address] [place] [address], [place] [address] 02/07/2020 12:00:00 AM EDT eCW1 ([facility] [address] [place] [address], [place] [address] 01/26/2020 12:00:00 AM EST eCW1 ([facility]) [facility] [place] [address] [place] [address], [place] [address] 01/26/2020 12:00:00 AM EST eCW1 ([facility] [address] [place] [address], [place] [address] 01/25/2020 12:00:00 AM EST eCW1 ([facility]) Outpatient Attender: KENA LEON MD [id number] 020 12:00:00 AM EST - 01/24/2020 04:01:47 PM [facility] [facility] [address] 01/23/2020 12:00:00 AM EST eCW1 ([facility]) [facility] [address] [facility] [address] 01/22/2020 12:00:00 AM EST eCW1 ([facility]) [facility] [address] [facility] [address] 01/21/2020 12:00:00 AM EST eCW1 ([facility]) [facility] [address] [facility] [address] 01/14/2020 12:00:00 AM EST eCW1 ([facility]) [facility] [place] [address] [facility] [address] 01/12/2020 12:00:00 AM EST eCW1 ([facility]) [facility] [address] [facility] [address] 12/29/2019 12:00:00 AM EST eCW1 ([facility]) [facility] [address] [facility] [address] 12/28/2019 12:00:00 AM EST eCW1 ([facility]) [facility] [address] [facility] [address] 12/27/2019 12:00:00 AM EST eCW1 ([facility]) [facility] [place] [address] [facility] [address] 12/27/2019 12:00:00 AM EST eCW1 ([facility]) [facility] [address] [facility] [address] 12/22/2019 12:00:00 AM EST eCW1 ([facility]) [facility] [place] [address] [facility] [address] 12/22/2019 12:00:00 AM EST eCW1 ([facility]) [facility] [place] [address] [facility] [address] 12/18/2019 12:00:00 AM EST eCW1 ([facility]) [place] [address] [facility] [address] 12/13/2019 12:00:00 AM EST eCW1 (Pending sale to [facility]) Immunizations Vaccine Date Status Description Data Source(s) DTaP-Hep B-IPV 08/07/2020 12:00:00 AM EDT completed DTaP / Hep B / IPV 08/07/2020 [facility] Hib (PRP-T) 08/07/2020 12:00:00 AM EDT completed HiB (PRP-T) 08/07/[address] [place] [address] Pneumococcal conjugate PCV 13 08/07/2020 12:00:00 AM EDT complet ed Pneumococcal Conjugate PCV13 08/07/2020 [facility] Medications Medication Brand Name Start Date Product Form Dose Route Admi nistrative Instructions Pharmacy Instructions Status Indications Reaction Description Data Source(s) pantoprazole 40 MG Delayed Release Oral Tablet Pantopr azole Sodium 40 MG Pantoprazole Sodium 40 MG 09/27/2020 12:00:00 AM EDT 1.0 {tablet} active Pantoprazole Sodium 40 MG eCW1 ( [facility]) pantoprazole 40 MG Delayed Release Oral Tablet Pantopr azole Sodium 40 MG Pantoprazole Sodium 40 MG 09/27/2020 12:00:00 AM EDT 1.0 {tablet} active Pantoprazole Sodium 40 MG eCW1 ( [facility]) pantoprazole 40 MG Delayed Release Oral Tablet Pantopr azole Sodium 40 MG Pantoprazole Sodium 40 MG 09/27/2020 12:00:00 AM EDT 1.0 {tablet} active Pantoprazole Sodium 40 MG eCW1 ( [facility]) pantoprazole 40 MG Delayed Release Oral Tablet Pantopr azole Sodium 40 MG Pantoprazole Sodium 40 MG 09/27/2020 12:00:00 AM EDT 1.0 {tablet} active Pantoprazole Sodium 40 MG eCW1 ( [facility]) pregabalin 300 MG Oral Capsule [Lyrica] Lyrica 300 MG Lyrica 300 MG 09/09/2020 12:00:00 AM EDT 1.0 {capsule} active L yrica 300 MG eCW1 ([facility]) pregabalin 300 MG Oral Capsule [Lyrica] Lyrica 300 MG Lyrica 300 MG 09/09/2020 12:00:00 AM EDT 1.0 {capsule} active L yrica 300 MG eCW1 ([facility]) pregabalin 300 MG Oral Capsule [Lyrica] Lyrica 300 MG Lyrica 300 MG 09/09/2020 12:00:00 AM EDT 1.0 {capsule} active L yrica 300 MG eCW1 ([facility]) pregabalin 300 MG Oral Capsule [Lyrica] Lyrica 300 MG Lyrica 300 MG 09/09/2020 12:00:00 AM EDT 1.0 {capsule} active L yrica 300 MG eCW1 ([facility]) 0.5 ML acellular pertussis vaccine, inac [...] completed 0.5 mL, Intramuscular, Give Now, Starting 08/07/20 at 1416, For 1 dose
Refrigerate
[facility] Medication administered onsite 0.5 [place] [address], capsular polysaccharide inactivated tetanus toxoid conjugate vaccine 0.07 MG/ML Injection haemophilus B polysaccharide conjugate vaccine (HIBERIX) intramuscular injection 10 mcg haemophilus B polysaccharide conjugate vaccine (HIBERIX) intramuscular injection 10 mcg 08/07/2020 02:16:15 PM EDT 0.5 mL Intramuscular com pleted 10 mcg (0.5 mL), Intramuscular, Give Now, Starting 08/07/20 at 1416, For 1 dose
To be reconstituted only with the accompanying saline diluent. Administer into the anterolateral aspect of the thigh or deltoid.
[facility] Medication administered onsite 0.5 ML Streptococcus pneumoniae serotype 1 capsular antigen diphtheria [id number] protein conjugate vaccine 0.0044 MG/ML / Streptococcus pneumoniae serotype 14 capsular antigen diphtheria [id number] protein conjugate vaccine 0.0044 MG/ML / Streptococcus pneumonia pneumococcal 13-valent conjugate vaccine (PREVNAR) injection 0.5 mL pneumococcal 13-valent conjugate vaccine (PREVNAR) injection 0.5 mL 08/07/2020 02:16:15 PM EDT 0.5 mL Intramuscular comp leted 0.5 mL, Intramuscular, Give Now, Starting Wed08/07/20 at 1416, For 1 dose [facility] Medication administered onsite Morphine Sulfate 2 MG/ML Oral Solution Morphine Sulfat e 10 MG/5ML Morphine Sulfate 10 MG/5ML 06/18/2020 12:00:00 AM EDT suspended Morphine Sulfate 10 MG/5ML eCW1 ([facility]) Morphine Sulfate 2 MG/ML Oral Solution Morphine Sulfat e 10 MG/5ML Morphine Sulfate 10 MG/5ML 06/18/2020 12:00:00 AM EDT active Morphine Sulfate 10 MG/5ML eCW1 ([facility]) Morphine Sulfate 2 MG/ML Oral Solution Morphine Sulfat e 10 MG/5ML Morphine Sulfate 10 MG/5ML 06/18/2020 12:00:00 AM EDT active Morphine Sulfate 10 MG/5ML eCW1 ([facility]) Morphine Sulfate 2 MG/ML Oral Solution Morphine Sulfat e 10 MG/5ML Morphine Sulfate 10 MG/5ML 06/18/2020 12:00:00 AM EDT suspended Morphine Sulfate 10 MG/5ML eCW1 ([facility]) Morphine Sulfate 2 MG/ML Oral Solution Morphine Sulfat e 10 MG/5ML Morphine Sulfate 10 MG/5ML 06/18/2020 12:00:00 AM EDT suspended Morphine Sulfate 10 MG/5ML eCW1 ([facility]) Morphine Sulfate 2 MG/ML Oral Solution Morphine Sulfat e 10 MG/5ML Morphine Sulfate 10 MG/5ML 06/18/2020 12:00:00 AM EDT suspended Morphine Sulfate 10 MG/5ML eCW1 ([facility]) Morphine Sulfate 2 MG/ML Oral Solution Morphine Sulfat e 10 MG/5ML Morphine Sulfate 10 MG/5ML 06/18/2020 12:00:00 AM EDT active Morphine Sulfate 10 MG/5ML eCW1 ([facility]) Morphine Sulfate 2 MG/ML Oral Solution Morphine Sulfat e 10 MG/5ML Morphine Sulfate 10 MG/5ML 06/18/2020 12:00:00 AM EDT active Morphine Sulfate 10 MG/5ML eCW1 ([facility]) Morphine Sulfate 2 MG/ML Oral Solution Morphine Sulfat e 10 MG/5ML Morphine Sulfate 10 MG/5ML 06/18/2020 12:00:00 AM EDT active Morphine Sulfate 10 MG/5ML eCW1 ([facility]) Morphine Sulfate 2 MG/ML Oral Solution Morphine Sulfat e 10 MG/5ML Morphine Sulfate 10 MG/5ML 06/18/2020 12:00:00 AM EDT active Morphine Sulfate 10 MG/5ML eCW1 ([facility]) Morphine Sulfate 2 MG/ML Oral Solution Morphine Sulfat e 10 MG/5ML Morphine Sulfate 10 MG/5ML 06/18/2020 12:00:00 AM EDT active Morphine Sulfate 10 MG/5ML eCW1 ([facility]) Morphine Sulfate 2 MG/ML Oral Solution Morphine Sulfat e 10 MG/5ML Morphine Sulfate 10 MG/5ML 06/18/2020 12:00:00 AM EDT active Morphine Sulfate 10 MG/5ML eCW1 ([facility]) Morphine Sulfate 2 MG/ML Oral Solution Morphine Sulfat e 10 MG/5ML Morphine Sulfate 10 MG/5ML 05/22/2020 12:00:00 AM EDT active Morphine Sulfate 10 MG/5ML eCW1 ([facility]) Morphine Sulfate 2 MG/ML Oral Solution Morphine Sulfat e 10 MG/5ML Morphine Sulfate 10 MG/5ML 05/22/2020 12:00:00 AM EDT active Morphine Sulfate 10 MG/5ML eCW1 ([facility]) Morphine Sulfate 2 MG/ML Oral Solution Morphine Sulfat e 10 MG/5ML Morphine Sulfate 10 MG/5ML 05/22/2020 12:00:00 AM EDT active Morphine Sulfate 10 MG/5ML eCW1 ([facility]) Morphine Sulfate 2 MG/ML Oral Solution Morphine Sulfat e 10 MG/5ML Morphine Sulfate 10 MG/5ML 05/22/2020 12:00:00 AM EDT active Morphine Sulfate 10 MG/5ML eCW1 ([facility]) Morphine Sulfate 2 MG/ML Oral Solution Morphine Sulfat e 10 MG/5ML Morphine Sulfate 10 MG/5ML 03/06/2020 12:00:00 AM EDT active Morphine Sulfate 10 MG/5ML eCW1 ([facility]) Morphine Sulfate 2 MG/ML Oral Solution Morphine Sulfat e 10 MG/5ML Morphine Sulfate 10 MG/5ML 03/06/2020 12:00:00 AM EDT activ e 2.5 -5 ml eCW1 ([facility]) Morphine Sulfate 2 MG/ML Oral Solution Morphine Sulfat e 10 MG/5ML Morphine Sulfate 10 MG/5ML 12/29/2019 12:00:00 AM EST activ e 2.5 mL eCW1 ([facility]) Morphine Sulfate 2 MG/ML Oral Solution Morphine Sulfat e 10 MG/5ML Morphine Sulfate 10 MG/5ML 12/29/2019 12:00:00 AM EST activ e 2.5 mL eCW1 ([facility]) Morphine Sulfate 2 MG/ML Oral Solution Morphine Sulfat e 10 MG/5ML Morphine Sulfate 10 MG/5ML 12/28/2019 12:00:00 AM EST activ e 2.5 mL eCW1 ([facility]) Morphine Sulfate 2 MG/ML Oral Solution Morphine Sulfat e 10 MG/5ML Morphine Sulfate 10 MG/5ML 12/28/2019 12:00:00 AM EST activ e 2.5 mL eCW1 ([facility]) Albuterol 0.833 MG/ML / Ipratropium Brom leonardo 0.167 MG/ML Inhalant Solution Ipratropium-Albuterol 0.5-2.5 (3) MG/3ML Ipratropium-Albuterol 0.5-2.5 (3) MG/3ML 12/22/2019 12:00:00 AM EST active 3 ml as needed eCW1 ([facility]) Trazodone Hydrochloride 50 MG Oral Tablet TraZODone HC l 50 MG TraZODone HCl 50 MG 12/22/2019 12:00:00 AM EST active 1 tablet at bedtime eCW1 ([facility]) Albuterol 0.833 MG/ML / Ipratropium Brom leonardo 0.167 MG/ML Inhalant Solution Ipratropium-Albuterol 0.5-2.5 (3) MG/3ML Ipratropium-Albuterol 0.5-2.5 (3) MG/3ML 12/22/2019 12:00:00 AM EST active 3 ml as needed eCW1 ([facility]) Albuterol 0.83 MG/ML Inhalant Solution Albuterol Sulfa te (2.5 MG/3ML) 0.083% Albuterol Sulfate (2.5 MG/3ML) 0.083% 12/22/2019 12:00:00 AM EST 3.0 {ml_as_needed} suspended Albuterol Sulfa te (2.5 MG/3ML) 0.083% eCW1 ([facility]) Albuterol 0.833 MG/ML / Ipratropium Brom leonardo 0.167 MG/ML Inhalant Solution Ipratropium-Albuterol 0.5-2.5 (3) MG/3ML Ipratropium-Albuterol 0.5-2.5 (3) MG/3ML 12/22/2019 12:00:00 AM EST 3.0 {ml_as_needed} suspended Ipratropium-Albuterol 0.5-2.5 (3) MG/3ML eCW1 ([facility]) Trazodone Hydrochloride 50 MG Oral Tablet TraZODone HC l 50 MG TraZODone HCl 50 MG 12/22/2019 12:00:00 AM EST active 1 tablet at bedtime eCW1 ([facility]) Levofloxacin 750 MG Oral Tablet [Levaquin] Levaquin 750 MG L evaquin 750 MG 12/22/2019 12:00:00 AM EST active 1 tablet eCW1 ([facility]) Albuterol 0.83 MG/ML Inhalant Solution Albuterol Sulfa te (2.5 MG/3ML) 0.083% Albuterol Sulfate (2.5 MG/3ML) 0.083% 12/22/2019 12:00:00 AM EST 3.0 {ml_as_needed} suspended Albuterol Sulfa te (2.5 MG/3ML) 0.083% eCW1 ([facility]) Trazodone Hydrochloride 150 MG Oral Tablet TraZODone H Cl 150 MG TraZODone HCl 150 MG 12/22/2019 12:00:00 AM EST active TraZODone HCl 150 MG eCW1 ([facility]) Albuterol 0.83 MG/ML Inhalant Solution Albuterol Sulfa te (2.5 MG/3ML) 0.083% Albuterol Sulfate (2.5 MG/3ML) 0.083% 12/22/2019 12:00:00 AM EST active 3 ml as needed eCW1 ([facility]) Albuterol 0.83 MG/ML Inhalant Solution Albuterol Sulfa te (2.5 MG/3ML) 0.083% Albuterol Sulfate (2.5 MG/3ML) 0.083% 12/22/2019 12:00:00 AM EST active 3 ml as needed eCW1 ([facility]) Trazodone Hydrochloride 50 MG Oral Tablet TraZODone HC l 50 MG TraZODone HCl 50 MG 12/22/2019 12:00:00 AM EST active 1 tablet at bedtime eCW1 ([facility]) Albuterol 0.833 MG/ML / Ipratropium Brom leonardo 0.167 MG/ML Inhalant Solution Ipratropium-Albuterol 0.5-2.5 (3) MG/3ML Ipratropium-Albuterol 0.5-2.5 (3) MG/3ML 12/22/2019 12:00:00 AM EST 3.0 {ml_as_needed} suspended Ipratropium-Albuterol 0.5-2.5 (3) MG/3ML eCW1 ([facility]) Albuterol 0.833 MG/ML / Ipratropium Brom leonardo 0.167 MG/ML Inhalant Solution Ipratropium-Albuterol 0.5-2.5 (3) MG/3ML Ipratropium-Albuterol 0.5-2.5 (3) MG/3ML 12/22/2019 12:00:00 AM EST 3.0 {ml_as_needed} suspended Ipratropium-Albuterol 0.5-2.5 (3) MG/3ML eCW1 ([facility]) Albuterol 0.83 MG/ML Inhalant Solution Albuterol Sulfa te (2.5 MG/3ML) 0.083% Albuterol Sulfate (2.5 MG/3ML) 0.083% 12/22/2019 12:00:00 AM EST 3.0 {ml_as_needed} suspended Albuterol Sulfa te (2.5 MG/3ML) 0.083% eCW1 ([facility]) Albuterol 0.833 MG/ML / Ipratropium Brom leonardo 0.167 MG/ML Inhalant Solution Ipratropium-Albuterol 0.5-2.5 (3) MG/3ML Ipratropium-Albuterol 0.5-2.5 (3) MG/3ML 12/22/2019 12:00:00 AM EST active 3 ml as needed eCW1 ([facility]) Albuterol 0.83 MG/ML Inhalant Solution Albuterol Sulfa te (2.5 MG/3ML) 0.083% Albuterol Sulfate (2.5 MG/3ML) 0.083% 12/22/2019 12:00:00 AM EST 3.0 {ml_as_needed} suspended Albuterol Sulfa te (2.5 MG/3ML) 0.083% [facility] ([facility]) Levofloxacin 750 MG Oral Tablet [Levaquin] Levaquin 750 MG L evaquin 750 MG 12/22/2019 12:00:00 AM EST active 1 tablet eCW1 ([facility]) Albuterol 0.83 MG/ML Inhalant Solution Albuterol Sulfa te (2.5 MG/3ML) 0.083% Albuterol Sulfate (2.5 MG/3ML) 0.083% 12/22/2019 12:00:00 AM EST 3.0 {ml_as_needed} suspended Albuterol Sulfa te (2.5 MG/3ML) 0.083% eCW ([facility]) Albuterol 0.833 MG/ML / Ipratropium Brom leonardo 0.167 MG/ML Inhalant Solution Ipratropium-Albuterol 0.5-2.5 (3) MG/3ML Ipratropium-Albuterol 0.5-2.5 (3) MG/3ML 12/22/2019 12:00:00 AM EST active 3 ml as needed eCW1 ([facility]) Trazodone Hydrochloride 50 MG Oral Tablet TraZODone HC l 50 MG TraZODone HCl 50 MG 12/22/2019 12:00:00 AM EST active 1 tablet at bedtime eCW1 ([facility]) Albuterol 0.83 MG/ML Inhalant Solution Albuterol Sulfa te (2.5 MG/3ML) 0.083% Albuterol Sulfate (2.5 MG/3ML) 0.083% 12/22/2019 12:00:00 AM EST active 3 ml as needed eCW1 ([facility]) Albuterol 0.833 MG/ML / Ipratropium Brom leonardo 0.167 MG/ML Inhalant Solution Ipratropium-Albuterol 0.5-2.5 (3) MG/3ML Ipratropium-Albuterol 0.5-2.5 (3) MG/3ML 12/22/2019 12:00:00 AM EST 3.0 {ml_as_needed} suspended Ipratropium-Albuterol 0.5-2.5 (3) MG/3ML eCW1 ([facility]) Trazodone Hydrochloride 150 MG Oral Tablet TraZODone H Cl 150 MG TraZODone HCl 150 MG 12/22/2019 12:00:00 AM EST active TraZODone HCl 150 MG eCW1 ([facility]) Trazodone Hydrochloride 150 MG Oral Tablet TraZODone H Cl 150 MG TraZODone HCl 150 MG 12/22/2019 12:00:00 AM EST active TraZODone HCl 150 MG eCW1 ([facility]) Albuterol 0.833 MG/ML / Ipratropium Brom leonardo 0.167 MG/ML Inhalant Solution Ipratropium-Albuterol 0.5-2.5 (3) MG/3ML Ipratropium-Albuterol 0.5-2.5 (3) MG/3ML 12/22/2019 12:00:00 AM EST 3.0 {ml_as_needed} suspended Ipratropium-Albuterol 0.5-2.5 (3) MG/3ML eCW1 ([facility]) Trazodone Hydrochloride 150 MG Oral Tablet TraZODone H Cl 150 MG TraZODone HCl 150 MG 12/22/2019 12:00:00 AM EST active TraZODone HCl 150 MG eCW1 ([facility]) Trazodone Hydrochloride 150 MG Oral Tablet TraZODone H Cl 150 MG TraZODone HCl 150 MG 12/22/2019 12:00:00 AM EST active TraZODone HCl 150 MG eCW1 ([facility]) Albuterol 0.83 MG/ML Inhalant Solution Albuterol Sulfa te (2.5 MG/3ML) 0.083% Albuterol Sulfate (2.5 MG/3ML) 0.083% 12/22/2019 12:00:00 AM EST active 3 ml as needed eCW1 ([facility]) Docusate Sodium 50 MG / sennosides, CORRECTION 8.6 MG Oral Tablet [SENOKOT-S] Senokot S 8.6-50 MG Senokot S 8.6-50 MG 12/13/2019 12:00:00 AM EST 1 .0 {tablet_in_the_evening_as_needed} active Senokot S 8.6-50 MG eCW1 ([facility]) Docusate Sodium 50 MG / sennosides, CORRECTION 8.6 MG Oral Tablet [SENOKOT-S] Senokot S 8.6-50 MG Senokot S 8.6-50 MG 12/13/2019 12:00:00 AM EST 1 .0 {tablet_in_the_evening_as_needed} active Senokot S 8.6-50 MG eCW1 ([facility]) Docusate Sodium 50 MG / sennosides, CORRECTION 8.6 MG Oral Tablet [SENOKOT-S] Senokot S 8.6-50 MG Senokot S 8.6-50 MG 12/13/2019 12:00:00 AM EST 1 .0 {tablet_in_the_evening_as_needed} active Senokot S 8.6-50 MG eCW1 ([facility]) Docusate Sodium 50 MG / sennosides, CORRECTION 8.6 MG Oral Tablet [SENOKOT-S] Senokot S 8.6-50 MG Senokot S 8.6-50 MG 12/13/2019 12:00:00 AM EST 1 .0 {tablet_in_the_evening_as_needed} active Senokot S 8.6-50 MG eCW1 ([facility]) Docusate Sodium 50 MG / sennosides, CORRECTION 8.6 MG Oral Tablet [SENOKOT-S] Senokot S 8.6-50 MG Senokot S 8.6-50 MG 12/13/2019 12:00:00 AM EST 1 .0 {tablet_in_the_evening_as_needed} active Senokot S 8.6-50 MG eCW1 ([facility]) Docusate Sodium 50 MG / sennosides, CORRECTION 8.6 MG Oral Tablet [SENOKOT-S] Senokot S 8.6-50 MG Senokot S 8.6-50 MG 12/13/2019 12:00:00 AM EST 1 .0 {tablet_in_the_evening_as_needed} active Senokot S 8.6-50 MG eCW1 ([facility]) Docusate Sodium 50 MG / sennosides, CORRECTION 8.6 MG Oral Tablet [SENOKOT-S] Senokot S 8.6-50 MG Senokot S 8.6-50 MG 12/13/2019 12:00:00 AM EST active 1 tablet in the evening as needed eCW1 ([facility]) Docusate Sodium 50 MG / sennosides, CORRECTION 8.6 MG Oral Tablet [SENOKOT-S] Senokot S 8.6-50 MG Senokot S 8.6-50 MG 12/13/2019 12:00:00 AM EST 1 .0 {tablet_in_the_evening_as_needed} active Senokot S 8.6-50 MG eCW1 ([facility]) Docusate Sodium 50 MG / sennosides, CORRECTION 8.6 MG Oral Tablet [SENOKOT-S] Senokot S 8.6-50 MG Senokot S 8.6-50 MG 12/13/2019 12:00:00 AM EST 1 .0 {tablet_in_the_evening_as_needed} active Senokot S 8.6-50 MG eCW1 ([facility]) Docusate Sodium 50 MG / sennosides, CORRECTION 8.6 MG Oral Tablet [SENOKOT-S] Senokot S 8.6-50 MG Senokot S 8.6-50 MG 12/13/2019 12:00:00 AM EST 1 .0 {tablet_in_the_evening_as_needed} active Senokot S 8.6-50 MG eCW1 ([facility]) Docusate Sodium 50 MG / sennosides, CORRECTION 8.6 MG Oral Tablet [SENOKOT-S] Senokot S 8.6-50 MG Senokot S 8.6-50 MG 12/13/2019 12:00:00 AM EST 1 .0 {tablet_in_the_evening_as_needed} active Senokot S 8.6-50 MG eCW1 ([facility]) Docusate Sodium 50 MG / sennosides, CORRECTION 8.6 MG Oral Tablet [SENOKOT-S] Senokot S 8.6-50 MG Senokot S 8.6-50 MG 12/13/2019 12:00:00 AM EST 1 .0 {tablet_in_the_evening_as_needed} active Senokot S 8.6-50 MG eCW1 ([facility]) Docusate Sodium 50 MG / sennosides, CORRECTION 8.6 MG Oral Tablet [SENOKOT-S] Senokot S 8.6-50 MG Senokot S 8.6-50 MG 12/13/2019 12:00:00 AM EST active 1 tablet in the evening as needed eCW1 ([facility]) Docusate Sodium 50 MG / sennosides, CORRECTION 8.6 MG Oral Tablet [SENOKOT-S] Senokot S 8.6-50 MG Senokot S 8.6-50 MG 12/13/2019 12:00:00 AM EST 1 .0 {tablet_in_the_evening_as_needed} active Senokot S 8.6-50 MG eCW1 ([facility]) Docusate Sodium 50 MG / sennosides, CORRECTION 8.6 MG Oral Tablet [SENOKOT-S] Senokot S 8.6-50 MG Senokot S 8.6-50 MG 12/13/2019 12:00:00 AM EST 1 .0 {tablet_in_the_evening_as_needed} active Senokot S 8.6-50 MG eCW1 ([facility]) Docusate Sodium 50 MG / sennosides, CORRECTION 8.6 MG Oral Tablet [SENOKOT-S] Senokot S 8.6-50 MG Senokot S 8.6-50 MG 12/13/2019 12:00:00 AM EST 1 .0 {tablet_in_the_evening_as_needed} active Senokot S 8.6-50 MG eCW1 ([facility]) Docusate Sodium 50 MG / sennosides, CORRECTION 8.6 MG Oral Tablet [SENOKOT-S] Senokot S 8.6-50 MG Senokot S 8.6-50 MG 12/13/2019 12:00:00 AM EST active 1 tablet in the evening as needed eCW1 ([facility]) Docusate Sodium 50 MG / sennosides, CORRECTION 8.6 MG Oral Tablet [SENOKOT-S] Senokot S 8.6-50 MG Senokot S 8.6-50 MG 12/13/2019 12:00:00 AM EST 1 .0 {tablet_in_the_evening_as_needed} active Senokot S 8.6-50 MG eCW1 ([facility]) Docusate Sodium 50 MG / sennosides, CORRECTION 8.6 MG Oral Tablet [SENOKOT-S] Senokot S 8.6-50 MG Senokot S 8.6-50 MG 12/13/2019 12:00:00 AM EST 1 .0 {tablet_in_the_evening_as_needed} active Senokot S 8.6-50 MG eCW1 ([facility]) Docusate Sodium 50 MG / sennosides, CORRECTION 8.6 MG Oral Tablet [SENOKOT-S] Senokot S 8.6-50 MG Senokot S 8.6-50 MG 12/13/2019 12:00:00 AM EST 1 .0 {tablet_in_the_evening_as_needed} active Senokot S 8.6-50 MG eCW1 ([facility]) Docusate Sodium 50 MG / sennosides, CORRECTION 8.6 MG Oral Tablet [SENOKOT-S] Senokot S 8.6-50 MG Senokot S 8.6-50 MG 12/13/2019 12:00:00 AM EST active 1 tablet in the evening as needed eCW1 ([facility]) Docusate Sodium 50 MG / sennosides, CORRECTION 8.6 MG Oral Tablet [SENOKOT-S] Senokot S 8.6-50 MG Senokot S 8.6-50 MG 12/13/2019 12:00:00 AM EST active 1 tablet in the evening as needed eCW1 ([facility]) Insurance Providers Payer name Policy type / Coverage type Policy ID Covered republican ID Covered republican's relationship to daniel Policy Daniel Plan Information EMEDNY [id number] SP [id number] BS EMPIRE JOBY DIV [id number] HU2 [id number] MEDICARE [id number] SP [id number] [facility] [id number] [id number] MEDICAID M [id number] S [id number] MEDICARE C [id number] S [id number] [facility] O [id number] S [id number] [facility] [id number] HU2 [id number] VNA MEDICAID MANAGED I [id number] Self [id number] MEDICAID M [id number] Self [id number] MEDICARE A [id number] Self [id number] EMPIRE PLAN [facility] U [id number] Spouse [id number] BCBS EMPIRE JOBY DIV [id number] MEDICAID [id number] SP [id number] BS EMPIRE JOBY DIV [id number] HU2 [id number] BCBS EMPIRE JOBY DIV [id number] HU2 [id number] [facility] [id number] SP [id number] BCBS EMPIRE JOBY DIV [id number] HU2 [id number] MEDICARE [id number] SP [id number] VNA MEDICAID MANAGED I [id number] Self [id number] MEDICARE A [id number] Self [id number] A BCBS EMPIRE JOBY DIV [id number] HU2 [id number] BCBS EMPIRE JOBY DIV [id number] MEDICARE [id number] SP [id number] [facility] [id number] 2 [id number] [facility] [id number] [facility] [id number] BCBS EMPIRE JOBY DIV [id number] HU2 [id number] BCBS EMPIRE JOBY DIV [id number] BCBS EMPIRE JOBY DIV [id number] [id number] [facility] [id number] SP [id number] MEDICARE [id number] SP [id number] A MEDICARE [id number] SP [id number] A BCBS EMPIRE JOBY DIV [id number] HU2 [id number] [facility] [id number] [facility] [id number] [facility] [id number] [facility] [id number] [facility] [id number] [facility] [id number] 07 [id number] BCBS EMPIRE JOBY DIV [id number] BCBS EMPIRE JOBY DIV [id number] [place] JE PART B C [id number] S [id number] ANS-Commercial [id number] [facility]-Medicaid [id number] ANSI-Medicare Part B [id number] ANSI-Medicaid [id number] ANSI-Commercial [id number] ANSI-Medicare Part B [id number] ANSI-Commercial [id number] ANSI-Medicare Part B [id number] ANSI-Medicaid [id number] ANSI-Commercial [id number] ANSI-Medicaid [id number] ANSI-Medicare Part B [id number] ANSI-Commercial [id number] ANSI-Medicare Part B [id number] ANSI-Medicaid [id number] ANSI-Commercial [id number] ANSI-Medicaid [id number] ANSI-Medicare Part B [id number] ANS-Medicaid [id number] ANSI-Medicare Part B [id number] ANSI-Commercial [id number] ANSI-Medicare Part B [id number] ANSI-Commercial [id number] ANSI-Medicaid [id number] ANSI-Medicare Part B [id number] ANSI-Commercial [id number] ANSI-Medicaid [id number] ANSI-Medicaid [id number] ANSI-Commercial [id number] ANSI-Medicare Part B [id number] ANSI-Commercial [id number] ANSI-Medicaid [id number] ANSI-Medicare Part B [id number] ANSI-Medicaid [id number] ANSI-Medicare Part B [id number] ANSI-Commercial [id number] ANSI-Commercial [id number] ANSI-Medicare Part B [id number] [facility] [id number] ANSI-Commercial [id number] [facility] [id number] ANSI-Medicare Part B [id number] ANSI-Commercial [id number] [facility] [id number] [facility] [id number] [facility] [id number] ANSI-Medicaid [id number] ANSI-Medicare Part B [id number] ANSI-Medicare Part B [id number] ANSI-Medicaid [id number] ANSI-Commercial ed4tz610-27ej-6313-024x-7627436xn3r1 nf5vy603-51sf-8671-835j-[id number] ANSI-Medicaid [id number] ANSI-Commercial [id number]-eu3b-6135-g8h3-0715lh0j7f09 1n0j0549-rr6h-8112-[id number] ANSI-Medicare Part B [id number] ANSI-Medicaid [id number] ANSI-Medicare Part B [id number] ANSI-Commercial [id number]-y80m-3x53-198g-[id number] 9zv12744-b49l-2d04-328e-w2ie74812h84 ANSI-Commercial a4of1610-41il-3tz0-b681-7ixuz3p70e2u a1ic0327-58md-0kk0-f419-9xrja5q30p0v ANSI-Medicare Part B [id number] ANSI-Medicaid [id number] ANSI-Commercial 10zps6s1-w4o2-6144-mu6e-1uehs613gk7f 97dxu3c6-o6l0-0437-qf5z-4claa940ad5k ANSI-Medicaid [id number] ANSI-Medicare Part B [id number] ANSI-Medicare Part B [id number] ANSI-Commercial 60v17lq0-6w9a-2061-29e2-a066839v9j2x 40w49el6-0n3h-2809-98j2-k259527x2u2p ANSI-Medicaid [id number] ANSI-Medicare Part B [id number] ANSI-Medicaid [id number] ANSI-Commercial [id number]-[id number]-[id number] ANSI-Medicaid [id number] ANSI-Commercial 1468m4ku-4798-74bq-54f6-52x90eyu76e2 2548x9pu-3834-32fz-70a9-76m93eif28h8 [facility] [id number] ANSI-Commercial 0yr7w7r0-51d9-4k33-[id number] 6mw6x2p3-17f2-5o19-jqk9-6i54f5m9180k ANSI-Medicare Part B [id number] ANSI-Commercial 9w5a6jw8-517z-166l-i490-6zh23yuj0qf1 6c2y3id5-085d-077v-f021-8fy68dry3iq1 ANSI-Medicare Part B [id number] ANSI-Commercial ag925s30-27ea-25c2-d7b8-le73414ply18 el232u00-34xx-29y8-q7l6-[id number] ANSI-Medicare Part B [id number] [place] Plan Medigap Part B [id number] Family Dependent [id number] Medicare Medicare Primary [id number] Self [id number] ANSI-Medicare Part B [id number] ANSI-Commercial l79o2cgm-23ne-2e69-[id number] l74r2wrs-07ja-1e20-u0x5-4d7s80en236v ANSI-Medicare Part B [id number] ANSI-Commercial [id number]-7368-8172-08is-[id number]-8192-8852-62bp-[id number] ANSI-Medicare Part B [id number] ANSI-Commercial h93gg84z-fkc2-75n0-y70d-au948p7e437p [id number]-e64z-[id number] [place] MEDICARE PART B C [id number] S [id number] MEDICARE C [id number] S [id number] A [place] Plan Medigap Part B [id number] Family Dependent [id number] Medicare - NGS Medicare Primary [id number] Self [id number] [place] ([facility]) P [id number] P [id number] A [id number] Problems, Conditions, and Diagnoses Code Display Name Description Problem Type Effective Dates Data Source(s) Z94.84 [id number] Hx of allogeneic stem cell transplant Pro b[facility] 04/25/2020 12:00:00 AM EDT eCW1 ([facility]) Z94.84 [id number] Hx of allogeneic stem cell transplant [facility] 04/25/2020 12:00:00 AM EDT eCW1 ([facility]) Z94.84 [id number] Stem cells transplant status Problem 03/05/2020 12:00:00 AM EDT eCW1 ([facility]) M54.5 [id number] Low back pain at multiple sites Problem 12/28/2019 12:00:00 AM EST eCW1 ([facility]) M54.5 [id number] Low back pain at multiple sites Problem 12/28/2019 12:00:00 AM EST eCW1 ([facility]) Z94.84 Stem cells transplant status Stem cells transplant sta tus Diagnosis 11/06/2020 03:22:17 PM [facility] Z00.5 Encounter for examination of potential d onor of organ and tissue Encounter for examination of potential donor of organ and tissue Diagnosis 03/13/2020 09:19:58 AM [facility] Surgeries/Procedures Procedure Description Date Indications Data Source(s) US RETROPERITONEAL REAL TIME W/IMAGE LIMITED 0 12:00:00 AM EST [facility] ([facility]) US RETROPERITONEAL REAL TIME W/IMAGE LIMITED 0 12:00:00 AM EST [facility] ([facility]) BLOOD COUNT COMPLETE AUTOMATED CBC AND DIFFERENTIAL STAT 08/07/2020 1:15 PM EDT H/O autologous stem cell transplant 08/07/2020 01:15:00 PM E DT H/O autologous stem cell transplant [facility] H/O autologous stem cell transplant COMPREHENSIVE METABOLIC PANEL COMPREHENSIVE METABOLIC PANEL STA T 08/07/2020 1:15 PM EDT H/O autologous stem cell transplant 08/07/2020 01:15:00 PM E DT H/O autologous stem cell transplant [facility] H/O autologous stem cell transplant LAB RESULTS (OUTSIDE/HISTORICAL) LAB RESULTS (OUTSIDE/HISTORICA L) 04/09/2020 11:51 AM EDT 04/09/2020 03:51:00 PM EDT [facility] BLOOD COUNT COMPLETE AUTO&AUTO DIFRNTL WBC COUNT CBC AND DIFFER ENTIAL STAT 03/13/2020 9:40 AM EDT H/O autologous stem cell transplant 03/13/2020 01:40:00 PM E DT H/O autologous stem cell transplant [facility] H/O autologous stem cell transplant COMPREHENSIVE METABOLIC PANEL COMPREHENSIVE METABOLIC PANEL STA T 03/13/2020 9:40 AM EDT H/O autologous stem cell transplant 03/13/2020 01:40:00 PM E DT H/O autologous stem cell transplant [facility] H/O autologous stem cell transplant Office Visit, Est Pt., Level 4 PC 03/05/2020 12:00:00 AM EDT eCW1 ([facility]) Office Visit, Est Pt., Level 2 FC 03/05/2020 12:00:00 AM EDT eCW1 ([facility]) Results ID Date Data Source [id number] 12/26/2020 08:00:00 AM EST [facility] Name Value Range Interpretation Code Description Data Earnestine rce(s) Supporting Document(s) SARS coronavirus 2 RNA [Presence] in Res piratory specimen by LOVE with probe detection NEGATIVE [facility] This lab was ordered by [facility] a nd reported by [facility]. ID Date Data Source [id number] 12/18/2020 05:36:00 PM EST [facility] Name Value Range Interpretation Code Description Data Earnestine rce(s) Supporting Document(s) SARS-CoV-2 (COVID 19) NEGATIVE - SARS-CoV-2 (COVID19) [facility] This lab was ordered by [facility] a nd reported by [facility]. ID Date Data Source [id number] 11/06/2020 06:08:54 PM EST [facility] Name Value Range Interpretation Code Description Data Earnestine rce(s) Supporting Document(s) Leukocytes [#/volume] in Blood by Automated count 6.4 10*3/uL 4-10 [facility] Erythrocytes [#/volume] in Blood by Automated count 3.91 10*6/uL 4.1- 5.3 L [facility] Hemoglobin [Mass/volume] in Blood 10.9 g/dL 11.5-15.5 L [facility] Hematocrit [Volume Fraction] of Blood by Automated count 32.2 % 3 6-45 L [facility] Erythrocyte mean corpuscular volume [Entitic volume] by Auto mated count 82.4 fL 80-96 [facility] Erythrocyte mean corpuscular hemoglobin [Entitic mass] by Automated count 27.9 pg 27-33 [facility] Erythrocyte mean corpuscular hemoglobin concentration [Mass/volume] by Automated count 33.8 g/dL 32.0-36.0 [facility] width [Ratio] by Automated count 17.4 % 11.5-14.5 H [facility] Platelets [#/volume] in Blood by Automated count 246 10*3/uL 150-400 [facility] Differential cell count method - Blood [facility] Neutrophils/100 leukocytes in Blood by Automated count 75 % [facility] Lymphocytes/100 leukocytes in Blood by Automated count 10 % [facility] Monocytes/100 leukocytes in Blood by Automated count 10 % [facility] Eosinophils/100 leukocytes in Blood by Automated count 4 % [facility] Basophils/100 leukocytes in Blood by Automated count 1 % [facility] Neutrophils [#/volume] in Blood by Automated count 4.83 10*3/uL 1.8-7 .0 [facility] Lymphocytes [#/volume] in Blood by Automated count 0.64 10*3/uL 1.2-4 .0 L [facility] Monocytes [#/volume] in Blood by Automated count 0.65 10*3/uL 0-0.8 [facility] Eosinophils [#/volume] in Blood by Automated count 0.24 10*3/uL 0-0.5 [facility] Basophils [#/volume] in Blood by Automated count 0.04 10*3/uL 0-0.2 [facility] Nucleated erythrocytes/100 leukocytes [Ratio] in Blood by Automated count 0 /100{WBCs} 0-0 [facility] ID Date Data Source [id number] 10/11/2020 03:35:00 PM EST [facility] ([facility] Name Value Range Interpretation Code Description Data Earnestine rce(s) Supporting Document(s) Creatinine [Mass/volume] in Serum or Plasma 1.85 mg/dL 0.57-1.11 [facility] ([facility]) Glucose [Mass/volume] in Serum or Plasma 125.0 mg/dL 70.0-99.0 [facility] ([facility]) Carbon dioxide, total [Moles/volume] in Serum or Plasma 21.0 mmol/L 22.0-31.0 [facility] ([facility]) BUN/Creat Ratio 20.5 [facility] ([facility]) Urea nitrogen [Mass/volume] in Serum or Plasma 38.0 mg/dL 7.0-24.0 [facility] ([facility]) Calcium [Mass/volume] in Serum or Plasma 8.8 mg/dL 8.4-10.2 [facility] ([facility]) K 4.3 mmol/L 3.6-5.2 [facility] ([facility]) Chloride [Moles/volume] in Serum or Plasma 107.0 mmol/L 98.0-108.0 [facility] ([facility]) Anion gap in Serum or Plasma 18.3 [facility] ([facility]) Sodium [Moles/volume] in Serum or Plasma 142.0 mmol/L 136.0-145.0 [facility] ([facility]) eGFR - Descent 33.6 [facility] ([facility]) eGFR -- Non- Descent 27.7 [facility] ([facility]) ID Date Data Source LIPID PANEL (CARDIAC RISK) 10/01/2020 02:17:26 AM EST eCW1 ( [facility]) Name Value Range Interpretation Code Description Data Earnestine rce(s) Supporting Document(s) Cholesterol [Moles/volume] in Serum or Plasma 160 CHOLESTEROL LEVEL eCW1 ([facility]) Triglyceride [Mass/volume] in Serum or Plasma by calculation 405 TRIGLYCERIDES LEVEL eCW1 ([facility]) Cholesterol in HDL [Moles/volume] in Serum or Plasma 39 HDL CHOLESTEROL eC1 ([facility]) 4.102 CHOLESTEROL RISK RATIO eCW1 ([facility]) 121 NON-HDL-C eCW1 ([facility]) ID Date Data Source FREE T4 & TSH PANEL 10/01/2020 02:17:26 AM EST eCW1 (Critical [facility] hospital) Name Value Range Interpretation Code Description Data Earnestine rce(s) Supporting Document(s) 0.87 FREE T4 eCW1 ([facility]) 3.490 THYROID STIMULATING HORMONE eC W1 ([facility]) ID Date Data Source Comprehensive Metabolic Profile (CMP) 10/01/2020 02:17:26 AM EST eCW1 ([facility]) Name Value Range Interpretation Code Description Data Earnestine rce(s) Supporting Document(s) 91 GLUCOSE, FASTING eCW1 (Critical access hospital) 28.6 GLOMERULAR FILTRATION RATE eCW 1 ([facility]) 39 BLOOD UREA NITROGEN eCW1 ([facility]) 1.95 CREATININE FOR GFR eCW1 ([facility]) 107 CHLORIDE LEVEL eCW1 ([facility]) 23 CARBON DIOXIDE LEVEL eCW1 ([facility]) 139 SODIUM LEVEL eCW1 ([facility]) 4.7 POTASSIUM SERUM eCW1 ([facility]) 474 ALKALINE PHOSPHATASE eCW1 ([facility]) 26 AST/SGOT eCW1 ([facility]) 22 ALT/SGPT eCW1 ([facility]) 9.0 CALCIUM LEVEL eCW1 ([facility]) 1.0 ALBUMIN/GLOBULIN RATIO eCW1 ([facility]) 0.3 BILIRUBIN,TOTAL eCW1 ([facility]) 6.7 TOTAL PROTEIN eCW1 ([facility]) 3.4 ALBUMIN eCW1 ([facility]) ID Date Data Source CBC with Differential 10/01/2020 02:17:26 AM EST eCW1 ([facility]) Name Value Range Interpretation Code Description Data Earnestine rce(s) Supporting Document(s) 8.7 WHITE BLOOD COUNT eCW1 (Critical access hospital) 86.0 MEAN CORPUSCULAR VOLUME eCW1 ( [facility]) 36.1 HEMATOCRIT eCW1 ([facility]) 11.1 HEMOGLOBIN eCW1 ([facility]) 4.20 RED BLOOD COUNT eCW1 ([facility]) 26.4 MEAN CORPUSCULAR HEMOGLOBIN eC W1 ([facility]) 30.7 MEAN CORPUSCULAR HGB CONC eCW1 ([facility]) 16.9 RED CELL DISTRIBUTION WIDTH eC W1 ([facility]) 274 PLATELET COUNT, AUTOMATED eCW1 ([facility]) 82.9 NEUTROPHILS % eCW1 ([facility]) 5.5 LYMPH % eCW1 ([facility]) 7.5 MONO % eCW1 ([facility]) 7.2 NEUTROPHILS # eCW1 ([facility]) 3.0 EOS % eCW1 ([facility]) 0.3 BASO % eCW1 ([facility]) 0.7 MONO # eCW1 ([facility]) 0.5 LYMPH # eCW1 ([facility]) 0.0 BASO # eCW1 ([facility]) 0.3 EOS # eCW1 ([facility]) ID Date Data Source [id number] 08/23/2020 03:45:18 PM EDT [facility] Name Value Range Interpretation Code Description Data Earnestine rce(s) Supporting Document(s) Progress Note Health system TVQEKz5jSiNCRsXz92/AQKkwOXLvr3UrIAlhCEs4WRlaBMBsB9NxXMD0cE4uPTW3MMwFQlInEmHgWGC9 lbm [file] [id number]= ID Date Data Source [id number] 08/07/2020 01:54:13 PM EDT [facility] Name Value Range Interpretation Code Description Data Earnestine rce(s) Supporting Document(s) Albumin [Mass/volume] in Serum or Plasma by Bromocresol green (BCG) dye binding method 3.9 g/dL 3.5-5.2 [facility] Bilirubin.total [Mass/volume] in Serum or Plasma 0.2 mg/dL <1.2 [facility] Calcium [Mass/volume] in Serum or Plasma 9.1 mg/dL 8.6-10.0 [facility] Chloride [Moles/volume] in Serum or Plasma 103 mmol/L 98-107 [facility] Creatinine [Mass/volume] in Serum or Plasma 1.98 mg/dL 0.50-0.90 H [facility] Glucose [Mass/volume] in Serum or Plasma 99 mg/dL 70-140 [facility] Alkaline phosphatase [Enzymatic activity/volume] in Serum or Plasma 414 U/L 35-104 H [facility] Potassium [Moles/volume] in Serum or Plasma 4.3 mmol/L 3.4-5.1 [facility] Protein [Mass/volume] in Serum or Plasma 6.9 g/dL 6.4-8.3 [facility] Sodium [Moles/volume] in Serum or Plasma 140 mmol/L 136-145 [facility] Aspartate aminotransferase [Enzymatic activity/volume] in Serum or Plasma 28 U/L <32 [facility] Urea nitrogen [Mass/volume] in Serum or Plasma 28 mg/dL 6-20 H [facility] Osmolality of Serum or Plasma by calculation 295 mosm/kg 275-300 [facility] Creatinine/Urea nitrogen [Mass Ratio] in Serum or Plasma 14 [facility] Bicarbonate [Moles/volume] in Serum 25 mmol/L 22-29 [facility] Alanine aminotransferase [Enzymatic activity/volume] in Seru m or Plasma 25 U/L <33 [facility] Anion gap 3 in Serum or Plasma 12 mmol/L 8-15 [facility] Glomerular filtration rate/1.73 sq M pre dicted among non-blacks [Volume Rate/Area] in Serum or Plasma by Creatinine-based formula (MDRD) 28 mL/min/1.73m2 >60 L [facility] Glomerular filtration rate/1.73 sq M pre dicted among blacks [Volume Rate/Area] in Serum or Plasma by Creatinine-based formula (MDRD) 32 mL/min/1.73m2 >60 L [facility] ID Date Data Source [id number] 08/07/2020 01:59:38 PM EDT [facility] Name Value Range Interpretation Code Description Data Earnestine rce(s) Supporting Document(s) Leukocytes [#/volume] in Blood by Automated count 3.7 10*3/uL 4-10 L [facility] Erythrocytes [#/volume] in Blood by Automated count 3.97 10*6/uL 4.1- 5.3 L [facility] Hemoglobin [Mass/volume] in Blood 11.0 g/dL 11.5-15.5 L [facility] Hematocrit [Volume Fraction] of Blood by Automated count 33.3 % 3 6-45 L [facility] Erythrocyte mean corpuscular volume [Entitic volume] by Auto mated count 83.8 fL 80-96 [facility] Erythrocyte mean corpuscular hemoglobin [Entitic mass] by Automated count 27.6 pg 27-33 [facility] Erythrocyte mean corpuscular hemoglobin concentration [Mass/volume] by Automated count 33.0 g/dL 32.0-36.0 [facility] width [Ratio] by Automated count 15.9 % 11.5-14.5 H [facility] Platelets [#/volume] in Blood by Automated count 289 10*3/uL 150-400 [facility] Differential cell count method - Blood [facility] Neutrophils/100 leukocytes in Blood by Automated count 58 % [facility] Lymphocytes/100 leukocytes in Blood by Automated count 16 % [facility] Monocytes/100 leukocytes in Blood by Automated count 15 % [facility] Eosinophils/100 leukocytes in Blood by Automated count 9 % [facility] Basophils/100 leukocytes in Blood by Automated count 2 % [facility] Neutrophils [#/volume] in Blood by Automated count 2.15 10*3/uL 1.8-7 .0 [facility] Lymphocytes [#/volume] in Blood by Automated count 0.59 10*3/uL 1.2-4 .0 L [facility] Monocytes [#/volume] in Blood by Automated count 0.56 10*3/uL 0-0.8 [facility] Eosinophils [#/volume] in Blood by Automated count 0.33 10*3/uL 0-0.5 [facility] Basophils [#/volume] in Blood by Automated count 0.07 10*3/uL 0-0.2 [facility] Service comment [employer] Occasional larger platelet present ID Date Data Source [id number] 05/31/2020 12:13:09 PM EDT [facility] Name Value Range Interpretation Code Description Data Earnestine rce(s) Supporting Document(s) Progress Note Health system THPGSr8oRrUXDjWu79/BINjjJHSxj5QhRHvkNNa3HWzxKNFzN2RzTIY6gL9qUKS4AEyDGwXrLmPeJtAp lbm [file] KOMFH0SLCt== ID Date Data Source [id number] 05/31/2020 12:13:04 PM EDT [facility] Name Value Range Interpretation Code Description Data Earnestine rce(s) Supporting Document(s) Progress Note Health system LZGGGm1kInOKQwKs77/CKNlaFWQef5WwWPaeMGs0SKisSRYcQ7BnWLF2mC0dSPX3EBnYNeKtVjEyWyTd lbm [file] staffing analyst+fLSbErYsKjUoU0zhyCrgEzt7jn89tw8cwC9gWwzgRJShtDaXwkq9XbrHQiK5x53Xm4oV6PyDeidG +C4C2ARdoCyaoEWzMpPNrW6oJDqOf3faTsLdQ8GmOH 0MMn2Z6b2GcAON1LzvhFYtQeazuoUgmUa5o07Ji5zHSqemwX/QK333eDMuaegIEJHZyL0smsoPrU5F6c c9d/YvtQtIUppT1ABsrqWTs4cGaxb7iBWWza/FjTJ61iGI68mptqnFftcskx33pnGKPbmvjmQNTkNpGX qzMfxV6j05OBSNUymoUSm9eTFkkSJt7pcM7GBDsG7b QGOF8aOyxqqC5sT28+Y8QecLytEc5nyNVevNhTCv4tRLh1ynf+Ail7917lARVN+rfayEPmcfs496cnzu +pLnIrzEg2fSHREmXTUUmoMakamXBluCwU9yKcz6tLhG4klJ4xBBgd2lFTu6uD558/QPRxv9qEAmIngk BX8OordQJqQU5tx291jsIapoR6i1kZbkyIUVgkUvh/ 7tIe9Oy8J4iOaj5HBWCw5fugE/PFU4I+tW56PZL5KDm861KLMbEms+droDuBverEaUuZQZZjaK6ETWvu QBAwYM+C5c4GUfJgH4PDDKNZSGNMPTDGKQF9x7E0PJJLPINEmdDNXCc2ERPYVASAubNDJFb3YBIODGSE vwEUYLt4CTSZCSKFaoNFSHn0QONVHXCCmvPOZQv2LD [file] ICAgICAgICAgICAgICAgICAgICAgICAgICAgICAgIC BpSBOzYGSlRCSlDASuVGRhPEExEXTsPN7POJRjDIMdGPTgNVAwXGRbQDKoBEUbSOJpZALlXYDnDRHtOL AgICAgICAgICAgICAgICAgICAgICAgICAgICAgICAgICAgICAgICAgICAgICAgICAgICAgICAgICAgIC ObGGSaOZ6CBGIzJIQaDFBiAUVbRVWdMDSeLOJtYQOc ICAgICAgICAgICAgICAgICAgICAgICAgICAgICAgICAgICAgICAgICAgICAgICAgICAgICAgICAgICAg TDWlANKpQXVlYDUrITJfQI4PKFHvXMXrNTYyIIRuBNKeUNToPGKxCYEuMMBgPKGxHBOuEWUfDMBaNZXb ICAgICAgICAgICAgICAgICAgICAgICAgICAgICAgIC MrXVReMSKuVTBtRGYpNDIyOXFjNAKeZYIkEA9SGVEbIRIvZRKzGAMhMYIvLNWtWZMsBHTwCRJnRLBcSP AgICAgICAgICAgICAgICAgICAgICAgICAgICAgICAgICAgICAgICAgICAgICAgICAgICAgICAgICAgIC EbQRYyJZSlDI0GBKDuEUPqBYHlJNWjMFJsUMOaKEHa ICAgICAgICAgICAgICAgICAgICAgICAgICAgICAgICAgICAgICAgICAgICAgICAgICAgICAgICAgICAg ATZeJZMgEGKtYOEpPHBfAGQaCS1GETSbKLTbARYiEWJmHIDbLWPjSSMaQFOwCCUoSVZgRGAbCXKzLBUx ICAgICAgICAgICAgICAgICAgICAgICAgICAgICAgIC CfPPKrLDMuVKLyIGXhFKPiPHWfQRRtVSSwVGUiNE0FMTDlYOCsRWZhGTBsOLOlYZLsTBToSIDnUYZcWP AgICAgICAgICAgICAgICAgICAgICAgICAgICAgICAgICAgICAgICAgICAgICAgICAgICAgICAgICAgIC AcSUVqASLdPDNxVV9XFIAtQZVnMDYfZCXeMXVuQARa ICAgICAgICAgICAgICAgICAgICAgICAgICAgICAgICAgICAgICAgICAgICAgICAgICAgICAgICAgICAg GODdUCRjSLQbKHIkUSDcQGBsTWBgGE6VDEXcVHNoUVRwJFHhAGQiDGGzHCBvOCVzGRZmIRDvLAOtRRFc ICAgICAgICAgICAgICAgICAgICAgICAgICAgICAgIC YgFOGrKGToVJJqDIPyBKLlAZVyHHUlRKOhFYHiBPGcBL0NHZ67lJCfs0S1LZRtAC2ldag/Ex7BQEbnfc LcbKIbXK6TGsDoDE0gan9CTzRdUR1knc4IHBzOGhBdJ6F5dSSaCRRqUHLPSbGrV25iOHkmWx51YPneGU DrWiToBPg5Bi5VNeHiQ7ztSMQoFhJ0AKMvLzD4EYGx WyA2TVEiXuMqWAJsXCSzDUQpNXXRBQZ7YYUdDqShFwEdOIGgJI9LAXKuR520xyPtKj7MFp0NBoPwRG0u ut3ZMzeaGKEgEqyRLml7ZPnyCM3GkDAiiCVuYPBfPNAJYzPvP4wks7UfEdvtQCUMTPlxAN9Ct6FiuNBx DQo+Uh9NQY3hi8PvCOasWYTnWA4jba6WFIgEWvFzC2 FkuYjeXVYak9rtVFSgKJ8xcDLoGQV4JWzmztIeEJ3xDKpuiPlpIyQuOMPqIp5eNG5kOFOoJFOmBeL7ZH CZTU3MLPQyQRAylQGtSPMlDSHTMA5TRCbqRRU2BQHpfoJaxMVkQYfsHS1HXDApxiSnLmucZLFUVOy+Pg 6LKK7ol7HlMZo8AFMwNX4bpm8PMNcDJpPzN4Y8jIMt E8J8MVtxCh6IMRTaTKSbJnKiSSHOVMhbXC0HTL1ygkQ1NE9LkMYrJFTfEMQtuGUxCBj6D81dvTXlHJqk YC7IXHO+Chandrika+In5JPIPaTIIfEEQgQeYgZFKQVkSrK9XjU4PYb8WfY1FbQY27mDojboClAHmpCC7LEX9j TSHqGLFLKL3FvFMhqN1ieqAgQWAdJHFZKvEgI19vuG IfTOZtQYQ2MONrIj9RZVEvX3PxvvWivYpmtySmPWKqCKJPFJ5VXPyxlfSemQNubHlhRD62vJcrKT3GJz 8RUcUpYX5zlb9UvMZjAj0WPTI3CC1RVSBbLBVvPOMjGHQ8CDBzMpScABdxLHLbEKHiQGB6BYDnXMKqVN 8YZbUlLDBtVfO8ZsXjUKAiKQRqso2OUSZaJZI7JmY0 IFFkEVDfMUAbZKzbAFTtIIOdRKU0UMLlKINlUQ4VNvPpMDYsSSX2DLZxZAFmKCJvbj6VJSHfQHFjHCZ6 BiPuUCKdKMApOHocEGAzCWT1UzXyUUEvRTWgUQ1RAqKfQSHcNPf4HmjoRSDwWFAwia0SYWVdPTBsGNl4 XSZfYZAmALHhFDkaBVFoVEWgPMNwVLVdUCKvAS5DZv TrSIWpNBLhXBAiMZMdMZCfaw5RLTPlTPWrGQW7KlDjOYTtRWVlCAvkFNMsBCM8Djr6ASSlCSEnSH9DXt RdPACpYSd2FREuMXOrBVXdxs6PENVkGBTrQIK7MTVpAAHaWOVfVDswYFPeLYT7BMN9DXPrPLVzTE3CWe ZiVGOeEdT8TcVrLEEmMHAowx7NPUCyFJWuPjC2ZJDs KZQkTSNzZYshHFMkFOVrQVJyEAAwDRIiNB9APjHuACPhUcDmVhefJHPgVVDaxw4HZGYhCHNzYlDfEXSd DSTjKLGoRBxlWJPpOBZ4HjotOYZhVICmNF7STqFiIVJaXqS0SLIuUINbEQXeqv7JEHNuEAHkGAq9GIHv GHZsDNLgQTvyPUJjCFO4XuExCYVmPSRbPR8SQhUxGK UfUtS4EyWmPRNaWKYesb3VRTQtEJCdOlacNHSaSRKcOSXiCKefMQZfPCP8RXd1OQEfKGCyCE8GYkBxUG WrOdpgCgToZCPeCKZrvf6YVPYiPXKrTEW4SMZaLRFvOAKvDLfyHOLaUXI7EpZqJVXpTGEiSY8HYeUeWI RcQde6UBWyVTDwNRLuqe0MISGtDCFoKVg7DLEbVVUa FKFxJQjvJLPrAEZ6NQk4RJWsUENuVT1VXkQcWFDbEEP1ESLuNUErSDZliz3ZVCTwSEH1YCB4XOYeHXTq PXFhVIajYRUfQDu2OBNlQQRdQCAgCQ9QDsVaRBMiInM7OHvyCHCbTXIfot9VHDPlFWC2GkU8RIFwSANo PXGcMGalJEIvVXe5PiT4QKPsBQFgIX4FBcUkIOufDK GTEzh5OCnsT3b9ZLS4WT1KD2Lfb4DhEUUtJVYIJTotOU5susKqRDFzYu7FG7vBPcx6ZnWbXMSuXVIeAP X9SgQiTVxyLJh1RYApPYR1ULEmAZ8pTRA4OYLsErCrKET5QVKbUeS5COIoZUBeVOMgZJGwZkE7XvEuRK 4JGm5GAuG1ATE2qFJsIr0XKMo5PYpwQQrrDIFUSn6L ID Date Data Source [id number] 04/09/2020 01:34:00 PM EDT [facility] ([facility]) Name Value Range Interpretation Code Description Data Earnestine rce(s) Supporting Document(s) Protein [Presence] in Urine by Test strip Laboratory test result [facility] ([facility]) Ua Nitrite Laboratory test result [facility] ([facility]) Glucose [Presence] in Urine Laboratory test result [facility] ([facility]) Blood [Presence] in Urine by Visual Laboratory test result [facility] ([facility]) Ua Leuko Laboratory test result [facility] ([facility]) Color of Urine Laboratory test result [facility] ([facility]) Ketones [Presence] in Urine by Test strip Laboratory test result [facility] ([facility]) Clarity of Urine Laboratory test result [facility] ([facility]) pH of Urine by Test strip Laboratory test result 5.0-7.5 [facility] ([facility]) Bilirubin.total [Presence] in Urine by Test strip Laboratory test res ult [facility] ([facility]) Ua Specific [place] Laboratory test result 1.003-1.030 [facility] ([facility]) Urobilinogen [Mass/volume] in Urine by Test strip Laboratory test result 0.0-1.0 [facility] ([facility]) ID Date Data Source [id number] 04/10/2020 10:11:15 AM EDT Laboratory [facility] [...] - CORE MCH 28.2 pg (27.0-32.0) [facility] - CORE MCHC 33.3 g/dL (32.0-36.0) [facility] - CORE RDW 24.2 % (10.5-14.5) H [facility] - CORE PLT 179 10*3/uL (150-450) [facility] - CORE MPV 7.2 fL (7.1-10.7) [facility] - CORE NEUT % 68.4 % (35.0-75.0) [facility] - CORE LYMPH % 13.9 % (16.0-52.0) L [facility] - CORE MONO % 9.4 % (0.0-8.0) H [facility] - CORE EOS % 7.7 % (0.0-5.0) H [facility] - CORE BASO % 0.6 % (0.0-4.0) [facility] - CORE NEUT # 4.0 10*3/uL (1.8-7.7) [facility] - CORE LYMPH # 0.8 10*3/uL (1.2-4.8) L [facility] - CORE MONO # 0.6 10*3/uL (0.0-0.8) [facility] - CORE Eosinophils [#/volume] in Blood by Automated count 0.5 10*3/uL (0.0-0 .5) [facility] - CORE BASO # 0.0 10*3/uL (0.0-0.2) [facility] - C[facility] ID Date Data Source [id number] 04/10/2020 10:11:15 AM EDT [facility] - [facility] Name Value Range Interpretation Code Description Data Earnestine rce(s) Supporting Document(s) SODIUM 139 mmol/L (136-145) [facility] - CORE POTASSIUM 4.6 mmol/L (3.6-5.2) [facility] - CORE CHLORIDE 106 mmol/L (100-108) [facility] - CORE CO2 25 mmol/L (22-31) [facility] - CORE ANION GAP 8 mmol/L (7-16) [facility] - CORE UREA NITROGEN 31 mg/dL (7-24) H [facility] - CORE CREATININE 1.45 mg/dL (0.60-1.00) H [facility] - CORE QA FLAGS AND/OR RANGES MODIFIED BY DEMOG RAPHIC UPDATE ON 04/10 AT 1010 BUN/CREAT RATIO 21.4 RATIO (10.0-20.0) H [facility] - CORE GLUCOSE 78 mg/dL (70-99) [facility] - CORE CALCIUM 8.5 mg/dL (8.4-10.2) [facility] - CORE TOTAL PROTEIN 6.6 g/dL (6.4-8.2) [facility] - CORE ALBUMIN 3.3 g/dL (3.5-4.6) L [facility] - CORE GLOBULIN 3.3 g/dL (2.7-4.3) [facility] - CORE ALB/GLOB RATIO 1.0 RATIO [facility] - CORE ALKALINE PHOSPHATASE 408 U/L (45-117) H [facility] - CORE BILIRUBIN,TOTAL 0.3 mg/dL (0.0-1.0) [facility] - CORE PLEASE NOTE:Total bilirubin results may be falselyelevated in patients taking Eltrombopag. AST (SGOT) 13 U/L (11-39) [facility] - CORE ALT (SGPT) 23 U/L (12-78) [facility] - CORE GFR 51 ml/min/1.73m2 (>59) L [facility] - CORE GFR ( AMER) >60 ml/min/1.73m2 (>59) [facility] - CORE GFR INTERPRETATION [facility] - CORE --NORMAL KIDNEY FUNCTION OR MILD DISEASE - GFR >OR= 60CHRONIC KIDNEY DISEASE - GFR 15 - 59RENAL FAILURE - GFR <15 Est. GFR calculation based on the MDRDstudy equation, which assumes a steadystate for creatinine. Est. GFR should notbe used for medication dosing. ID Date Data Source [id number] 04/09/2020 01:12:00 PM EDT [facility] ([facility] Name Value Range Interpretation Code Description Data Earnestine rce(s) Supporting Document(s) Protein [Presence] in Urine by Test strip Laboratory test result [facility] ([facility]) Glucose [Presence] in Urine Laboratory test result [facility] ([facility]) Ua Nitrite Laboratory test result [facility] ([facility]) Ua Leuko Laboratory test result [facility] ([facility]) Color of Urine Laboratory test result [facility] ([facility]) Blood [Presence] in Urine by Visual Laboratory test result [facility] ([facility]) Ua Specific [place] Laboratory test result 1.003-1.030 [facility] ([facility]) Ketones [Presence] in Urine by Test strip Laboratory test result [facility] ([facility]) Clarity of Urine Laboratory test result [facility] ([facility]) Bilirubin.total [Presence] in Urine by Test strip Laboratory test res ult [facility] ([facility]) pH of Urine by Test strip Laboratory test result 5.0-7.5 [facility] ([facility]) Urobilinogen [Mass/volume] in Urine by Test strip Laboratory test result 0.0-1.0 [facility] ([facility]) ID Date Data Source [id number] 03/13/2020 02:41:40 PM EDT [facility] Name Value Range Interpretation Code Description Data Earnestine rce(s) Supporting Document(s) Progress Note [facility] system [id number] lbm [file] [id number]== ID Date Data Source [id number] 03/13/2020 10:25:40 AM EDT [facility] Name Value Range Interpretation Code Description Data Earnestine rce(s) Supporting Document(s) Progress Note Health system [id number]rTJkVjMaTqPRP1 lbm [file] AgICAgICAgICAgICAgICAgICAgICAgICAgICAgICAgICAgICAgICAgICAgICAgICAgICAgICAgICAgIC AgICAgICAgICAgICAgICANCiAgICAgICAgICAgICAg ICAgICAgICAgICAgICAgICAgICAgICAgICAgICAgICAgICAgICAgICAgICAgICAgICAgICAgICAgICAg ICAgICAgICAgICAgICAgICAgICAgICAgICANCiAgICAgICAgICAgICAgICAgICAgICAgICAgICAgICAg ICAgICAgICAgICAgICAgICAgICAgICAgICAgICAgIC AgICAgICAgICAgICAgICAgICAgICAgICAgICAgICAgICAgICANCiAgICAgICAgICAgICAgICAgICAgIC AgICAgICAgICAgICAgICAgICAgICAgICAgICAgICAgICAgICAgICAgICAgICAgICAgICAgICAgICAgIC AgICAgICAgICAgICAgICAgICANCiAgICAgICAgICAg ICAgICAgICAgICAgICAgICAgICAgICAgICAgICAgICAgICAgICAgICAgICAgICAgICAgICAgICAgICAg ICAgICAgICAgICAgICAgICAgICAgICAgICAgICANCiAgICAgICAgICAgICAgICAgICAgICAgICAgICAg ICAgICAgICAgICAgICAgICAgICAgICAgICAgICAgIC AgICAgICAgICAgICAgICAgICAgICAgICAgICAgICAgICAgICAgICANCiAgICAgICAgICAgICAgICAgIC AgICAgICAgICAgICAgICAgICAgICAgICAgICAgICAgICAgICAgICAgICAgICAgICAgICAgICAgICAgIC AgICAgICAgICAgICAgICAgICAgICANCiAgICAgICAg ICAgICAgICAgICAgICAgICAgICAgICAgICAgICAgICAgICAgICAgICAgICAgICAgICAgICAgICAgICAg ICAgICAgICAgICAgICAgICAgICAgICAgICAgICAgICANCiAgICAgICAgICAgICAgICAgICAgICAgICAg ICAgICAgICAgICAgICAgICAgICAgICAgICAgICAgIC AgICAgICAgICAgICAgICAgICAgICAgICAgICAgICAgICAgICAgICAgICANCiAgICAgICAgICAgICAgIC AgICAgICAgICAgICAgICAgICAgICAgICAgICAgICAgICAgICAgICAgICAgICAgICAgICAgICAgICAgIC AgICAgICAgICAgICAgICAgICAgICAgICANCjw/eHBh R5lhhZOfpgU6Y5xnKd9EFe0RVP0li7SqRPSdGYbuomXcXlqEOqPfFCYmLwjNSnb8IBnfGJ8MdXUwR4Le B4KmHSyjVV9ZGJMzDFVniAQpXEFrEQObPdR2BXRaPCayAU6VvFEyGSgnKNUwSCOuEpSwZNFiZPVlNEWh LGBvUZZSBHAtYFFmAiZmQXMjTFQvZS3GZRQoZ441at ZsAh9VZn5TXdDoIE0hkn5CDqPlBFUsUcpVGfs3SDoyTW7QmGXwwRRjTjJiCFEFRjTdE8csy8LwFwUcSL YLAVdmSH9Yj1OmjPJxWEw+Fa5RXZ1gn3GjBJnhMkEcYH9oap9NSXzAHyHlF8PunEpyCYWje3qbQSAnNI 3smKNpYAF5UZEawJHbqIOSSZzmJGtsFXPxOKUjBA4k SG7uIDQfGZK6RqX2TBVSUM8BXZOvMTZayXJtDAQkXEXRTU3DZIdnCTN1EOYcxgZduFQfXRypBD1SCVTe bnQgMzIgMCBSDQo+Si0CLV9or6KbPGxnCYVfZV2whz4UGYyETsWeA2J1xJQoX2W6AMxbWd4LXUSzPPTv IcDaNLNHIAmoIN6PBD1yasR7BS1AiUPtTFLlNFKugU WlSEv1N49kcFEiCSytEZ8XSLG+Chandrika+On3KYIBmOUHeTVUrMbBeYFFWCnUyM0RyI0PBn3VuF6YgQK82yR ppekRsOIwwKC6YNB2wJVBkNRYHYY0PgHLepC1bpeYeZhNuIDTEHiTqW16zrSCtAFCjNFEsRTExJe5YPM HrY5ClsxYdyWhbfaUfCNBdYMOVTJ0GLKpjowItnENu yYphAE57jAuuLR6XMr9ZQoTzOH3ted8AjZNgMp1SDWLcOD3GIWPnETBuDZQpNGA5QBWiJgYjPLpgGZEn KSCtIDR6WLRmDVMdCQ3UAzFtMJKbWWB3CQtrRCMbLRCoxc4AKPSxIMO4PzX9YBSmWXQwPKSmRMnfKDUj RBMnIGB7BQRyJHXlOQ9YRkTxIIUdDQZ2NaCeBMYlKP Zlzf7LWDLrLTSdNBseDeLoKQVrSXLuGRdnDFKeYRX4LkS1SGYhQVYtGS3WJcHhQBMeKMp9VkYyMJGvBR Vewj0UAQArTPUbZBP5WqNgHFOdDUFzUJtqTMBgLYQsWXz0SWZhNZMfYL6ZTfZcONWpQQW2IpHlEPIbDC Qgqg2LUMUkMLItXHM2DrHmKGFjAXMlJKqwWRCgWWF1 PKX1IIMsXLTwZZ6CPnJmLDFvPHz1TBTrIEWeZILyoz9OZZMtOLSqWszoWlBuVTTkWHOuCBstXVIrWUC0 RGJ9KHSiDLPsUQ0TGwJbVKEiGvR6SXqmDEQiZWPqmn9AHIVzYUEuFKR4QTUuKBVoWIZuAIhkIRUgPQZ2 Uge7VDLjYIVlSO2PTlPwYLJoZiIwNopjNONzTHUaqq 3NDKUlDFLnJqAiOIQyOXEiYSCrUXjyGUGgIIF3RlD3CGOhBIPiWF9XAgElCSFhGmjvDUafZXKlAZTzxb 7ZVPIwFDShPSM1EuRrBVCjAGMiNIdnZIDsDEW3ZwgqHSBoSWZlLY8DUuHqGUDdFya4TANsIBHfCMZuwq 8TBOYdEXPkGQI9NxCoARCmITUoZOxzFTNoNWNwJNQl RKJjTBMiRJ3MUoRgJWIjYKIjNFjgGLMfKDLlmx0LHCGyAPA0HGU1StOzHRNvLISfTKftGRRsYLNbLOK9 WSFwFDLaOP2EPvDsAHRlMGKwNWXuXLKiBRJbst5WIBMzUCE2SzY7YyJfECPyFIMdRNdrZFXaXOTsBPVb HYHzXOJfNY1GMdZlLNdzZXCJZne4GIljA0p2XIFaRC 9YX6Air9IbFvZyHMLRCVyjLB4ncuHdNNSzIw9JP2fXNan0J4HrPYjqNBM9INQ7UGLjKNLkXkwqWFQrBw HeWTPjCP2jKOPoPqQ1RBB4YBn3VzkeKMY3YCWtBHNzSjWlSUC6YAG0GmCmHO6QDt0LRbP7GHS2tKAcYk 9JUDW1BKsREvVcOU0LOIp= ID Date Data Source [id number] 03/13/2020 10:14:42 AM EDT [facility] Name Value Range Interpretation Code Description Data Earnestine rce(s) Supporting Document(s) Leukocytes [#/volume] in Blood by Automated count 9.8 10*3/uL 4-10 [facility] Erythrocytes [#/volume] in Blood by Automated count 4.44 10*6/uL 4.1- 5.3 [facility] Hemoglobin [Mass/volume] in Blood 11.5 g/dL 11.5-15.5 [facility] Hematocrit [Volume Fraction] of Blood by Automated count 33.9 % 3 6-45 L [facility] Erythrocyte mean corpuscular volume [Entitic volume] by Auto mated count 76.4 fL 80-96 L [facility] Erythrocyte mean corpuscular hemoglobin [Entitic mass] by Automated count 25.8 pg 27-33 L [facility] Erythrocyte mean corpuscular hemoglobin concentration [Mass/volume] by Automated count 33.8 g/dL 32.0-[facility] width [Ratio] by Automated count 20.6 % 11.5-14.5 H [facility] Platelets [#/volume] in Blood by Automated count 278 10*3/uL 150-400 [facility] Differential cell count method - Blood [facility] Neutrophils/100 leukocytes in Blood by Automated count 86 % [facility] Lymphocytes/100 leukocytes in Blood by Automated count 5 % [facility] Monocytes/100 leukocytes in Blood by Automated count 5 % [facility] Eosinophils/100 leukocytes in Blood by Automated count 2 % [facility] Basophils/100 leukocytes in Blood by Automated count 2 % [facility] Neutrophils [#/volume] in Blood by Automated count 8.43 10*3/uL 1.8-7 .0 H [facility] Lymphocytes [#/volume] in Blood by Automated count 0.49 10*3/uL 1.2-4 .0 L [facility] Monocytes [#/volume] in Blood by Automated count 0.49 10*3/uL 0-0.8 [facility] Eosinophils [#/volume] in Blood by Automated count 0.20 10*3/uL 0-0.5 [facility] Basophils [#/volume] in Blood by Automated count 0.20 10*3/uL 0-0.2 [facility] ID Date Data Source [id number] 03/13/2020 10:16:18 AM EDT [facility] Name Value Range Interpretation Code Description Data Earnestine rce(s) Supporting Document(s) Albumin [Mass/volume] in Serum or Plasma by Bromocresol green (BCG) dye binding method 4.2 g/dL 3.5-5.2 [facility] Bilirubin.total [Mass/volume] in Serum or Plasma 0.2 mg/dL <1.2 [facility] Calcium [Mass/volume] in Serum or Plasma 9.4 mg/dL 8.6-10.0 [facility] Chloride [Moles/volume] in Serum or Plasma 100 mmol/L 98-107 [facility] Creatinine [Mass/volume] in Serum or Plasma 1.42 mg/dL 0.50-0.90 H [facility] Glucose [Mass/volume] in Serum or Plasma 135 mg/dL 70-140 [facility] Alkaline phosphatase [Enzymatic activity/volume] in Serum or Plasma 320 U/L 35-104 H [facility] Potassium [Moles/volume] in Serum or Plasma 4.0 mmol/L 3.4-5.1 [facility] Protein [Mass/volume] in Serum or Plasma 7.0 g/dL 6.4-8.3 [facility] Sodium [Moles/volume] in Serum or Plasma 139 mmol/L 136-145 [facility] Aspartate aminotransferase [Enzymatic activity/volume] in Serum or Plasma 12 U/L <32 [facility] Urea nitrogen [Mass/volume] in Serum or Plasma 28 mg/dL 6-20 H [facility] Osmolality of Serum or Plasma by calculation 295 mosm/kg 275-300 [facility] Creatinine/Urea nitrogen [Mass Ratio] in Serum or Plasma 20 [facility] Bicarbonate [Moles/volume] in Serum 24 mmol/L 22-29 [facility] Alanine aminotransferase [Enzymatic activity/volume] in Seru m or Plasma 11 U/L <33 [facility] Anion gap 3 in Serum or Plasma 15 mmol/L 8-15 [facility] Albumin/Globulin [Mass Ratio] in Serum or Plasma 1.5 [facility] Glomerular filtration rate/1.73 sq M pre dicted among non-blacks [Volume Rate/Area] in Serum or Plasma by Creatinine-based formula (MDRD) 42 mL/min/1.73m2 >60 L [facility] Glomerular filtration rate/1.73 sq M pre dicted among blacks [Volume Rate/Area] in Serum or Plasma by Creatinine-based formula (MDRD) 48 mL/min/1.73m2 >60 L [facility] ID Date Data Source [id number] 02/05/2020 02:24:11 PM EDT [facility] Name Value Range Interpretation Code Description Data Earnestine rce(s) Supporting Document(s) Progress Note [facility] system [id number]/ICPvxRAOsk7RmPPjvTUy1TIybBCQaH0OmMCW3aQ1gFGE2SAtZPyYoAyEzAuI6 lbm [file] +fde/z7YI9p25R5A55SA6v+YeK7XkFXbugwH95O60XwTn8e4vXCmH0yxlYg5cLFIM63zMAtyLMyEf/José Miguel [file] xEBzSo1DKeW0DFCLLaKgYI4SFWt= ID Date Data Source [id number] 02/05/2020 02:24:06 PM EDT [facility] Name Value Range Interpretation Code Description Data Earnestine rce(s) Supporting Document(s) Progress Note Health system JHGNIz0qElHDFqVv82/MIWirUEFjz6XqKChjEBx1GOukSVJyU5DbBEI6oN6gDKY5GWzOJjIyVuUmTnU9 lbm EsCwuUYpNiMFMlHfuYNvCjBAawOribhHQiGZ9AlHG7QTAkY06zJRAuQWMnR5DkESAhAcE+Qa7KOCNtiY PdBF7WMsnQ5S1xh4bTRv2jfM/TjbBBQ9Vzpsz6dhYNH7Wf8BRszTDQ72WVikGNDQtmYhIch6449A5hZk 66An4Z40XlxdNG3Mco0nN6p9n35i/mIAocxzHFv/Wf QGLVeuN894/O1qDFcr/b/TmcVa0IH1dh1sY8P4/9/HavV9oZL29SqTkno/vioMjS3slLiIWdn068aP5n /2Hbx1ox6U9o1QKtgfdUitix0/xu5cI6HiNOVL4ufOj/jYSi7BRueAc9vb0YBJeMl2HWPu3PnZFvXp+2 X4x2h4A0Tj35fm8dd39BnJY1soV8J6giQ4ji27q8tx [file] ICAgICAgICAgICAgICAgICAgICAgICAgICAgICAgICAgICAgICAgICAgICAgICAgICAgICAgICAgICAg ROXoYEPqUHYoYUAqSTLbBFIvKZLhUJIjGGVnCQBbVLIsDEEySDSjUV6SKWUhGTFyVKQzBHLxWKTjPCSk ICAgICAgICAgICAgICAgICAgICAgICAgICAgICAgIC SbFBStODJoWDHfTAXxZZDhWBShPZMuWALsDCTnEVYcXBRuNZQcCEOpRAWqSUIlFLVoZR1SLGWmOOBeIB AgICAgICAgICAgICAgICAgICAgICAgICAgICAgICAgICAgICAgICAgICAgICAgICAgICAgICAgICAgIC AgICAgICAgICAgICAgICAgICAgICAgICAgICAgICAg BY4RCSKmRJOsETOcSZSiZERoEUGfPJJyQJEiDBPlVNRnITJfZSUuADBjCUOaZURcYNQjAPIkEPFuOUWj EHCkCPTkWOWyKVBxYXSlGSMzVKLeRYQvTPQvTFYhUSNfGZKrUEZdEJPyLG0UPZUnNIHuLIAlYZAhZWIi ICAgICAgICAgICAgICAgICAgICAgICAgICAgICAgIC DgYXWaXKHwPRQoLZHeWJCnLRBoDGHkMHRrEAWjFNQzHKIwAAKiWDFsGLDkFGHnWKGfGSOzWK8CJQEpWD AgICAgICAgICAgICAgICAgICAgICAgICAgICAgICAgICAgICAgICAgICAgICAgICAgICAgICAgICAgIC AgICAgICAgICAgICAgICAgICAgICAgICAgICAgICAg GVHsCR3YHQSyMEPtWOLdQKJhMXQyYCPfZKJlNWZxSRReVGEoNKRcKJGsGTGpOQUqKBLsNZJpYHMzRPJm CHCgJZLvRNVfBKSmWHZxPBMoMYYhSUIhHJQhSTJpPGJkNXMvDTAoIDNfSOZsAS9HOKTjKQAlPFEpIFNk ICAgICAgICAgICAgICAgICAgICAgICAgICAgICAgIC XqESWpZREqVGPrSSVyLOOsDSCjHBXzFZCeQBNvGRZiUBPsMPXhMLPoSEBnBOLdWERxFIVmYGBiGU9VNE AgICAgICAgICAgICAgICAgICAgICAgICAgICAgICAgICAgICAgICAgICAgICAgICAgICAgICAgICAgIC AgICAgICAgICAgICAgICAgICAgICAgICAgICAgICAg QWTkBWGiKH6UHRSdKVKgDCGoKULlNRTuOTPvPHFkVGWyUEMmYYAeTKBlFPUqZJYnYJOwTMRfOXBzPWYn EGXoIDRpSUYcCUFnBWEtKKFeVSKjDCWoYVAiEEDdRHHoSMWkBIGuALOeXAIuEIUlKZ2UOU64lPHot5Y6 SEYsLK3tgmm/Bv3VJSjnbjDwuTPiZR2HDgPvUE3nyr 1BTiSqGX0frl3BRHhCLhFfQ5U5dIVxJZOrBTPRJwEtO82jSApbSr06UIdkBDUyDiGuJHk3Ir9RAkNqV7 pdWUQjLoX9DEDoKnD1GERgRzV5YHZdUrCeZYDmKLHlIXPfPLANODG6MEAmQvQrJwLqGKNgYT7ENGPaT6 57sdFpOd2GWy1QPeGiIP2nck1CNtMmLKXpTpdJEsy2 PEomKY2RgJHmwZIrPRFdWKADNxMjU6zxv9RnSjXqSQJZGYxgGY2Sa1IdmJZdJOa+Ud4KEZ9pv5EeGYcv BGSkHB1mbc8HYGiESkUdS1KpcEkpVILws2jiAPJiAG7mnVMlQRH9GSi9y9EuueXfLMTLrZQ6xn0sncet NeXiXJRlKt0kSa9eONAeHQRkQdNeQBRTFD6MVXTaWP CaiIJwSZWvQKUCOC5JRKrhFIQ3POYkgnFjbASyYImcKB4UVBGpnoYfYpDlJPAHIMa+Fu9TWM0ms2ZnAB xqGrUeJQ0jfw5PAZoQXtMiE3D8oNNtY7N4BHlmYp6SWBMsDKIiSzKzYOEAGZekFG4YEC0lpeP0MR1EkM HoFTEpIQAlhVOsWXc7N28kfFGiOUylTG8BBCP+Chandrika+ Pm3IRKEyRHPkTVLnRmUpXVHGTyGxH5SbU5EKt1TgU4ZsSR91dSgqxjTxHKsjUX7ICE3sWUEnTXHYWN0U yLTarW2vghHcJFOfGUDVWbFjP35rrYDpKYMpWMXaALYiRy9TVNTvX1DlefWgtLjwgrQmYUKpAZOLPO8V YSrlobVpgVExzAmqZV90sUswLC3WHl1CHgHkKX2sfm 5GmBVqKk4CVUSpCr2CGQBwUUUaZRRdCBP8OXDmIxUtHJlwNTGzZOYsFHW2RPRdUDUiBA4RHsKcXUBmII MaETBtMOCePYXnpy2YSIYhFIO7LPZ8KXMpHSBkCMYmGLwbPGCiGBNoTZJ4VUOoEHCmFY3ZVxLoHVPpZE FzZTnzESPuMAFqjr7TLYTjRITuSGDzCzOqMSQnOYIw RQahLCUpNBD1KLA7XDGjTPDrBX4ZJuTyWYPqVNnpVJnmUVUlOEIdkx2WLCFiZVTkTiE0VeYnOREcHJTp UPgyYOHgXYWdJqxxNGJeGSEbMM6WNwXtEVXfFKFkOOWqCUKyHPWkmr3NJPQsDWBuUkZyREOmZZFeFHLi KNixCKMaEHBmNRD9MLPoRDBgBX3CGvFpAVQeQmD2Av PsBBNoVWZyqx4RDKMeERBcADb4FcKiZBKnTAEvQOgcWGHkJLW6TQW9QZAhTWJtMC6IOeRrIEUwLgP6Ep DvCINqUFPkpo4OMDNoBRQxNMj3SfKeLRQjMWZrWDgxIWWnNKZ7CXYvAHQsCEOiHJ3NCcJuSZNmYcmvAi dxPATqSVQdku8VCALkZYQmMkEeBnAeOSCxIKHdFZfx SHWuLVS6PjudBNPpZQMxPP7TSsSkJSZmIuc0KqQuMYBjWMFmqr6HKVMrARRqZGO3NDUzCLVqNDKsOIqp ZVLgJRYoIQshPFJsTMHkJG7NNfWqFQZbPAY3EIGgIENjWFOfrm2WVLPaUIG5BAZcVOMfCAHwPWEbDRfp AMIzKZXiLXi5UESsYJStZB7GCiZgTGQtDZKaCzLoRR HsLYRkyg6HPXBxMHL7IPl3MHWoPNLgYTAeUBhjFBCzXSQzTRYjIAGmTSDbEO3GJnVqJNEfLGAlErDgGU ApCYMskc6INCXoUHD2Xed7VMWiIMJaDAPbNDcoVZSsATI8BhL7NRMrGGPgBN4DVbEuSRIgCBMsSDkaWL HkFANcju8XLTUbKZZ8SSN7NHGwVXYmVHFoUZz0egMy rYTqERi0TW0CS7QfuzZuEriKIa6Qn232AIL6DYUvFd4UZ8hpPy0qSPEvFLAJXh5XWBa6FnIwFRP4ReIc CZHzLVHjFKQlFYvdVhD7EPA1HcD5AVL+EDvxJFTsXiDcRqS2DDMrVlM3WKYbXTW3CmdjEDcsMkohUd7n XSANCj4+EDfqlZLmxMetRHGODbE7Gbo4IRdrABGTFr2A Procedure Social History Code Duration Value Status Description Data Source(s ) Smoking 10/11/2020 12:00:00 AM EST Former Cigarette Smok er 2 Packs Daily completed Former Cigarette Smoker 2 Packs Daily [facility] ([facility]) Smoking 09/27/2020 12:00:00 AM EDT Former Smoker completed Former Smoker eCW1 ([facility]) Smoking 09/27/2020 12:00:00 AM EDT Former Smoker completed Former Smoker eCW1 ([facility]) Smoking 09/27/2020 12:00:00 AM EDT Former Smoker completed Former Smoker eCW1 ([facility]) Smoking 09/27/2020 12:00:00 AM EDT Former Smoker completed Former Smoker eCW1 ([facility]) Alcohol intake 08/07/2020 12:00:00 AM EDT Lifetime non-drinker (finding) completed Lifetime non-drinker (finding) [facility] Tobacco use and exposure 08/07/2020 12:00:00 AM EDT Never used co mpleted Never used [facility] Cigarette pack-years 08/07/2020 12:00:00 AM EDT UNK completed [facility] Cigarettes smoked current (pack per day) - Reported 08/07/20 12:00:00 AM EDT UNK completed [facility] Smoking 08/07/2020 12:00:00 AM EDT Former smoker completed Former smoker [facility] Smoking 06/18/2020 12:00:00 AM EDT Former Smoker completed Former Smoker eCW1 ([facility]) Smoking 06/18/2020 12:00:00 AM EDT Former Smoker completed Former Smoker eCW1 ([facility]) Smoking 06/18/2020 12:00:00 AM EDT Former Smoker completed Former Smoker eCW1 ([facility]) Smoking 06/18/2020 12:00:00 AM EDT Former Smoker completed Former Smoker eCW1 ([facility]) Smoking 06/18/2020 12:00:00 AM EDT Former Smoker completed Former Smoker eCW1 ([facility]) Smoking 06/18/2020 12:00:00 AM EDT Former Smoker completed Former Smoker eCW1 ([facility]) Smoking 06/18/2020 12:00:00 AM EDT Former Smoker completed Former Smoker eCW1 ([facility]) Smoking 06/18/2020 12:00:00 AM EDT Former Smoker completed Former Smoker eCW1 ([facility]) Alcohol intake 05/31/2020 12:00:00 AM EDT Lifetime non-drinker (finding) completed Lifetime non-drinker (finding) [facility] Cigarette pack-years 05/31/2020 12:00:00 AM EDT UNK [facility] Cigarettes smoked current (pack per day) - Reported 05/31/20 20 12:00:00 AM EDT UNK completed [facility] Smoking 05/31/2020 12:00:00 AM EDT Former smoker completed Former smoker [facility] Smoking 04/25/2020 12:00:00 AM EDT Former Smoker completed Former Smoker eCW1 ([facility]) Smoking 04/25/2020 12:00:00 AM EDT Former Smoker completed Former Smoker eCW1 ([facility]) Smoking 04/25/2020 12:00:00 AM EDT Former Smoker completed Former Smoker eCW1 ([facility]) Smoking 04/25/2020 12:00:00 AM EDT Former Smoker completed Former Smoker eCW1 ([facility]) Alcohol intake 03/13/2020 12:00:00 AM EDT Lifetime non-drinker (finding) completed Lifetime non-drinker (finding) [facility] Cigarette pack-years 03/13/2020 12:00:00 AM EDT UNK completed [facility] Cigarettes smoked current (pack per day) - Reported 03/13/20 12:00:00 AM EDT UNK completed [facility] Smoking 03/13/2020 12:00:00 AM EDT Former smoker completed Former smoker [facility] Alcohol intake 02/05/2020 12:00:00 AM EDT Lifetime non-drinker (finding) completed Lifetime non-drinker (finding) [facility] Cigarette pack-years 02/05/2020 12:00:00 AM EDT UNK [facility] Cigarettes smoked current (pack per day) - Reported 02/05/20 12:00:00 AM EDT UNK completed [facility] Smoking 02/05/2020 12:00:00 AM EDT Former smoker completed Former smoker [facility] Vital Signs ID Date Data Source UNK Name Value Range Interpretation Code Description Data Source(s) Heart rate 98 /min 98 /min [facility] ([facility] Diastolic blood pressure 83 mm[Hg] 83 mm[Hg] [facility] ([facility]) Systolic blood pressure 120 mm[Hg] 120 mm[Hg] M [facility] ([facility] Body mass index (BMI) [Ratio] 42.0 kg/m2 42.0 k g/m2 [facility] ([facility] Body weight 102.514 kg 102.514 kg [facility] ([facility] Body weight 226.00 [lb_av] 226.00 [lb_av] MEDEN T ([facility]) Body height 61.5 [in_i] 61.5 [in_i] [facility] ([facility] 5'1.50" Diastolic blood pressure 62 mm[Hg] 62 mm[Hg] eCW1 ([facility]) Systolic blood pressure 112 mm[Hg] 112 mm[Hg] e CW1 ([facility]) Body temperature 97.9 [degF] 97.9 [degF] eCW1 ( [facility]) Respiratory rate 18 /min 18 /min eCW1 ([facility]) Heart rate 121 /min 121 /min eCW1 ([facility]) Body mass index (BMI) [Ratio] 42.19 kg/m2 42.19 kg/m2 eCW1 ([facility]) Body height [in_i] eCW1 ([facility] Body weight 227 [lb_av] 227 [lb_av] eCW1 ([facility]) Diastolic blood pressure 64 mm[Hg] 64 mm[Hg] eCW1 ([facility]) Systolic blood pressure 122 mm[Hg] 122 mm[Hg] e CW1 ([facility]) Body temperature 96.9 [degF] 96.9 [degF] eCW1 ( [facility]) Respiratory rate 18 /min 18 /min eCW1 ([facility]) Heart rate 127 /min 127 /min eCW1 ([facility]) Body mass index (BMI) [Ratio] 42.01 kg/m2 42.01 kg/m2 eCW1 ([facility]) Body height [in_i] eCW1 ([facility]) Body weight 226 [lb_av] 226 [lb_av] eCW1 ([facility]) Diastolic blood pressure 60 mm[Hg] 60 mm[Hg] eCW1 ([facility]) Systolic blood pressure 92 mm[Hg] 92 mm[Hg] e CW1 ([facility]) Body temperature 97.9 [degF] 97.9 [degF] eCW1 ( [facility]) Respiratory rate 18 /min 18 /min eCW1 ([facility]) Heart rate 106 /min 106 /min eCW1 ([facility]) Body mass index (BMI) [Ratio] 41.26 kg/m2 41.26 kg/m2 eCW1 ([facility]) Body height [in_i] eCW1 ([facility]) Body weight 222 [lb_av] 222 [lb_av] eCW1 ([facility]) Diastolic blood pressure 74 mm[Hg] 74 mm[Hg] eCW1 ([facility]) Systolic blood pressure 120 mm[Hg] 120 mm[Hg] e CW1 ([facility]) Body temperature 95.6 [degF] 95.6 [degF] eCW1 ( [facility]) Respiratory rate 20 /min 20 /min eCW1 ([facility]) Heart rate 116 /min 116 /min eCW1 ([facility]) Body mass index (BMI) [Ratio] 40.48 kg/m2 40.48 kg/m2 eCW1 ([facility]) Body height [in_us] eCW1 ([facility]) Body weight Measured 217.8 [lb_av] 217.8 [lb_av ] eCW1 ([facility]) Diastolic blood pressure 78 mm[Hg] 78 mm[Hg] eCW1 ([facility]) Systolic blood pressure 116 mm[Hg] 116 mm[Hg] e CW1 ([facility]) Body temperature 97.7 [degF] 97.7 [degF] eCW1 ( [facility]) Respiratory rate 20 /min 20 /min eCW1 ([facility]) Heart rate 103 /min 103 /min eCW1 ([facility]) Body mass index (BMI) [Ratio] 42.56 kg/m2 42.56 kg/m2 eCW1 ([facility]) Body height [in_us] eCW1 [facility] Body weight Measured 229 [lb_av] 229 [lb_av] eC W1 ([facility]) Diastolic blood pressure 68 mm[Hg] 68 mm[Hg] eCW1 ([facility]) Systolic blood pressure 118 mm[Hg] 118 mm[Hg] e CW1 ([facility]) Body temperature 97.8 [degF] 97.8 [degF] eCW1 ( [facility]) Respiratory rate 20 /min 20 /min eCW1 ([facility]) Heart rate 98 /min 98 /min eCW1 ([facility]) Body mass index (BMI) [Ratio] 42.56 kg/m2 42.56 kg/m2 eCW1 ([facility]) Body height [in_us] eCW1 ([facility]) Body weight Measured 229 [lb_av] 229 [lb_av] eC W1 ([facility]) Diastolic blood pressure 72 mm[Hg] 72 mm[Hg] eCW1 ([facility]) Systolic blood pressure 122 mm[Hg] 122 mm[Hg] e CW1 ([facility]) Body temperature 98.4 [degF] 98.4 [degF] eCW1 ( [facility]) Respiratory rate 20 /min 20 /min eCW1 ([facility]) Heart rate 107 /min 107 /min eCW1 ([facility]) Body mass index (BMI) [Ratio] 40.89 kg/m2 40.89 kg/m2 eCW1 ([facility]) Body height [in_us] eCW1 ([facility] Body weight Measured 220 [lb_av] 220 [lb_av] eC W1 ([facility]) ID Date Data Source [id number] 11/06/2020 06:09:03 PM EST [facility] Name Value Range Interpretation Code Description Data Source(s) WEIGHT RECORDED 231.8 lb 231.8 lb [facility] ID Date Data Source [id number] 08/23/2020 03:45:18 PM EDT [facility] Name Value Range Interpretation Code Description Data Source(s) WEIGHT RECORDED 227.8 lb 227.8 lb [facility] ID Date Data Source [id number] 05/31/2020 12:13:09 PM EDT [facility] Name Value Range Interpretation Code Description Data Source(s) WEIGHT RECORDED 220 lb 220 lb [facility] ID Date Data Source [id number] 03/13/2020 02:41:40 PM EDT [facility] Name Value Range Interpretation Code Description Data Source(s) WEIGHT RECORDED 218 lb 218 lb [facility] ID Date Data Source [id number] 02/05/2020 02:24:11 PM EDT [facility] Name Value Range Interpretation Code Description Data Source(s) WEIGHT RECORDED 234.4 lb 234.4 lb [facility] Body height Measured 61.42 in 61.42 in [facility] Patient Treatment Plan of Care Planned Activity Planned Date Details Description Data Source (s) pantoprazole 40 MG Delayed Release Oral Tablet 09/27/2020 12:00:00 AM EDT eCW1 ([facility]) pantoprazole 40 MG Delayed Release Oral Tablet 09/27/2020 12:00:00 AM EDT eCW1 ([facility]) pantoprazole 40 MG Delayed Release Oral Tablet 09/27/2020 12:00:00 AM EDT eCW1 ([facility]) pantoprazole 40 MG Delayed Release Oral Tablet 09/27/2020 12:00:00 AM EDT eCW1 ([facility]) pregabalin 300 MG Oral Capsule [Lyrica] 09/09/2020 12:00:00 AM EDT eCW1 ([facility]) pregabalin 300 MG Oral Capsule [Lyrica] 09/09/2020 12:00:00 AM EDT eCW1 ([facility]) Morphine Sulfate 2 MG/ML Oral Solution 06/18/2020 12:00:00 AM EDT eCW1 ([facility]) Morphine Sulfate 2 MG/ML Oral Solution 06/18/2020 12:00:00 AM EDT eCW1 ([facility]) Morphine Sulfate 2 MG/ML Oral Solution 06/18/2020 12:00:00 AM EDT eCW1 ([facility]) Morphine Sulfate 2 MG/ML Oral Solution 06/18/2020 12:00:00 AM EDT eCW1 ([facility]) Morphine Sulfate 2 MG/ML Oral Solution 06/18/2020 12:00:00 AM EDT eCW1 ([facility]) Morphine Sulfate 2 MG/ML Oral Solution 06/18/2020 12:00:00 AM EDT eCW1 ([facility]) Morphine Sulfate 2 MG/ML Oral Solution 06/18/2020 12:00:00 AM EDT eCW1 ([facility]) Morphine Sulfate 2 MG/ML Oral Solution 06/18/2020 12:00:00 AM EDT eCW1 ([facility]) Morphine Sulfate 2 MG/ML Oral Solution 05/22/2020 12:00:00 AM EDT eCW1 ([facility]) Morphine Sulfate 2 MG/ML Oral Solution 05/22/2020 12:00:00 AM EDT eCW1 ([facility]) Morphine Sulfate 2 MG/ML Oral Solution 05/22/2020 12:00:00 AM EDT eCW1 ([facility]) Morphine Sulfate 2 MG/ML Oral Solution 05/22/2020 12:00:00 AM EDT eCW1 ([facility]) Morphine Sulfate 2 MG/ML Oral Solution 03/06/2020 12:00:00 AM EDT eCW1 ([facility]) Morphine Sulfate 2 MG/ML Oral Solution 12/29/2019 12:00:00 AM EST eCW1 ([facility]) Morphine Sulfate 2 MG/ML Oral Solution 12/28/2019 12:00:00 AM EST eCW1 ([facility]) Docusate Sodium 50 MG / sennosides, CORRECTION 8.6 MG [facility] [[facility]] 12/13/2019 12:00:00 AM EST [id number] ([facility])
--- NOTE | 2021-01-16 14:13 | REP ---
INDICATION: fever/ hydronephrosis. COMPARISON: Comparison chest CT study 29 December 2020.. TECHNIQUE: Helical scanning is acquired. 3 mm axial images are generated. Coronal and sagittal MPR and coronal MIP images are generated. 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 Lung allison are well inflated. No focal infiltrate is seen. There is no evidence of pleural or pericardial effusion. There is a right-sided [id number] catheter with its tip in the superior vena cava. No hilar mediastinal mass or adenopathy is observed. There are granulomatous calcifications in the left and right hilar region. There is a calcified granuloma in the left lower lobe of the lung. No bony destructive lesion is seen. IMPRESSION: Right-sided [id number] catheter in place. Old granulomatous changes. No acute disease. <Electronically signed by Chan Villa > 01/16/21 [id number]
--- NOTE | 2021-01-16 14:17 | REP ---
INDICATION: fever/ hydronephrosis COMPARISON: Comparison CT abdomen and pelvis is from 29 December 2020.. TECHNIQUE: Helical scanning is acquired in 4 mm axial images were reformatted. Coronal and sagittal MPR images were generated and reviewed. 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 The liver and spleen are homogeneous in texture. Normal adrenal glands are seen. No abnormality is noted in the gallbladder or pancreas. Moderate bilateral hydronephrosis is again seen essentially unchanged from the comparison study of 29 December 2020. There is minimal perinephric edema. The ureters are dilated extending down to the level of the pelvis. There is a diverting ileostomy in the right lower quadrant which appears to contain a catheter. There are bilateral cystic masses in the ovaries as previously noted. The right today measures 7.8 by 6.3, previously 7.6 x 6.5 cm. The left-sided cystic mass lesion measures 4.9 x 2.7, previously 5.6 x 2.7 cm. Small and large intestinal bowel loops are unremarkable. No abdominal wall defect is seen. No evidence of free air or new fluid collection. IMPRESSION: Findings essentially status coil from 29 December 2020 prior study. Bilateral hydronephrosis and hydroureter. Urinary diversion enterostomy. Bilateral ovarian cystic mass lesions. The right ovarian lesion appears to be adjacent to the course of the distal ureters and near the ureteral ileal anastomosis. No new intra-abnormality <Electronically signed by Chan Villa > 01/16/21 [id number]
[2021-01-16] MEDS ORDERED: ACETAMINOPHEN 650 MG SUPP PR ONE (15:15)
[2021-01-16] MEDS ORDERED: MEROPENEM INJ 1 GM in IV 1 EA IV ONE (15:30)
[2021-01-16] MEDS ORDERED: PROMETHAZINE 25 MG TAB PO PRN (17:00)
[2021-01-16] MEDS ORDERED: VANCOMYCIN HCL 1,000 MG, VIAL MATE ADAPTER 1 EACH in D5W 250 ML IV SCH (17:00)
[2021-01-16] MEDS ORDERED: ALBUTEROL 90 MCG/ACT 8GM HFA INHALER INH PRN (17:00)
[2021-01-16] MEDS ORDERED: NS 1,000 ML IV ONE ×2 (17:00→17:15)
[2021-01-16] MEDS ORDERED: ACETAMINOPHEN TAB 650MG DOSE (2X325MG) PO PRN (17:00)
--- OUTSIDE RECORDS SUMMARY | 2021-01-16 17:17 | CCD ---
Author Author [facility] Organization [facility] Address Unknown Phone Unavailable Care Team Providers Care Enrichment Assistant Name Role Phone Mary Herndon MD Unavailable [...] Bhavik CASILLAS Unavailable Unavailable White F Bhavik CASLILAS Unavailable Unavailable White F Bhavik CASILLAS Unavailable [...] Unavailable LEON, C KENA MD Unavailable Unavailable LOEN, C KENA MD Unavailable Unavailable LEON, C [...] KENA MD Unavailable Unavailable Chopra, A Deloris LINEMAN Unavailable Unavailable Chopra, A Deloris LINEMAN Unavailable Unavailable Chopra, A Deloris LINEMAN Unavailable Unavailable Chopra, A Deloris LINEMAN Unavailable Unavailable Chopra, A Deloris LINEMAN Unavailable Unavailable Chopra, A Deloris LINEMAN Unavailable Unavailable Chopra, A Deloris LINEMAN Unavailable Unavailable Chopra, A Deloris LINEMAN Unavailable Unavailable Chopra, A Deloris LINEMAN Unavailable Unavailable Chopra, A Deloris LINEMAN Unavailable Unavailable Chopra, A Deloris LINEMAN Unavailable Unavailable Chopra, A Deloris LINEMAN Unavailable Unavailable Chopra, A Deloris LINEMAN Unavailable Unavailable Chopra, A Deloris LINEMAN Unavailable Unavailable Chopra, A Deloris LINEMAN Unavailable Unavailable Chopra, A Deloris LINEMAN Unavailable Unavailable Chopra, A Deloris LINEMAN Unavailable Unavailable Chopra, A Deloris LINEMAN Unavailable Unavailable Chopra, A Deloris LINEMAN Unavailable Unavailable Chopra, A Deloris LINEMAN Unavailable Unavailable Chopra, A Deloris LINEMAN Unavailable Unavailable Chopra, A Deloris LINEMAN Unavailable Unavailable Chopra, A Deloris LINEMAN Unavailable Unavailable Chopra, A Deloris LINEMAN Unavailable Unavailable Chopra, A Deloris LINEMAN Unavailable Unavailable Chopra, A Deloris LINEMAN Unavailable Unavailable Chopra, A Deloris LINEMAN Unavailable Unavailable Chopra, A Deloris LINEMAN Unavailable Unavailable Chopra, A Deloris LINEMAN Unavailable Unavailable Chopra, A Deloris LINEMAN Unavailable Unavailable Chopra, A Deloris LINEMAN Unavailable Unavailable Chopra, A Deloris LINEMAN Unavailable Unavailable Chopra, A Deloris LINEMAN Unavailable Unavailable Chopra, A Deloris LINEMAN Unavailable Unavailable Chopra, A Deloris LINEMAN Unavailable Unavailable Chopra, A Deloris LINEMAN Unavailable Unavailable Chopra, A Deloris LINEMAN Unavailable Unavailable Chopra, A Deloris LINEMAN Unavailable Unavailable Chopra, A Deloris LINEMAN Unavailable Unavailable Chopra, A Deloris LINEMAN Unavailable Unavailable Chopra, A Deloris LINEMAN Unavailable Unavailable Chopra, A Deloris LINEMAN Unavailable Unavailable Chopra, A Deloris LINEMAN Unavailable Unavailable Chopra, A Deloris LINEMAN Unavailable Unavailable Chopra, A Deloris LINEMAN Unavailable Unavailable Chopra, A Deloris LINEMAN Unavailable Unavailable Nav, A Deloris LINEMAN Unavailable Unavailable Nav, A Deloris LINEMAN Unavailable Unavailable Nav, A Deloris LINEMAN Unavailable Unavailable PARISH ARRIAGA Unavailable Unavailable Re-disclosure [...] is protected by Article 27-F of the [facility] [place] Public Health law. If you continue you may have access to information: Regarding HIV / AIDS; Provided by facilities licensed or operated by the [facility] [place] Office of Mental Health; or Provided by the [facility] [place] Office for People With Developmental Disabilities. If such information is present, then the following [facility] [place] mandated warning applies: This information has been [...] law may result in a fine or longterm sentence or both. A general authorization for the release of medical or other information is NOT sufficient authorization for further disc losure. Allergies and Adverse Reactions Type Description Substance Reaction Status Data Source(s ) DRUG INGREDI [facility] Drug allergy Hydrocodone-Acetaminophen acetaminophen / hydrocodone Chest pain Active eCW1 ([facility]) Drug allergy Percocet acetaminophen / oxycodone Projectile vomiting Active eCW1 ([facility]) Acetaminophen Acetaminophen Acetaminophen Nausea Active eCW1 ([facility]) Acetaminophen Acetaminophen Acetaminophen Nausea Active eCW1 ([facility]) Hydrocodone-Acetaminophen Hydrocodone-Acetaminophen Acetamin ophen 21.7 MG/ML / Hydrocodone Bitartrate 0.5 MG/ML Oral Solution Chest pain Active eCW1 ([facility]) Drug Class SULFA ANTIBIOTICS SULFA ANTIBIOTICS [facility] Acetaminophen Acetaminophen Acetaminophen 32 MG/ML Oral Solution Naus ea Active eCW1 ([facility]) Acetaminophen Acetaminophen Acetaminophen 32 MG/ML Oral Solution Naus ea Active eCW1 ([facility]) Family History Family Member Name Family Member Gender Family Member Status Date o f Status Description Data Source(s) Unknown Male Problem [facility] ([facility] [place] Encounters Encounter Providers Location Date Indications Data Source(s ) Outpatient Attender: KENA LEON MD 02/05/2021 12:00:00 AM [facility] Unknown [address] [facility] [address] 12/18/2020 12:00:00 AM EST eCW1 ([facility]) Unknown [address] [facility] [address] 12/15/2020 12:00:00 AM EST eCW1 ([facility]) Unknown [address] [facility] [address] 11/11/2020 12:00:00 AM EST eCW1 ([facility]) Outpatient Attender: DEFAULT / GENE ALIX / UNKNOWN PROVIDER ALIASES Attender: PARISH ARRIAGA 11/06/2020 12:00:00 AM EST Stem cells transplant status [facility] Stem cells transplant status Outpatient Attender: Deloris Barillas/ Sean Urolog y 10/11/2020 02:30:00 PM EST [facility] ([facility] [place] Office Visit, Est Pt., Level 4 PC [address] [place] [address] 09/27/2020 12:00:00 AM EDT eCW1 ([facility]) Unknown [address] [facility] [address] 09/13/2020 12:00:00 AM EDT eCW1 ([facility]) [place] [address] [facility] [address] 09/11/2020 12:00:00 AM EDT eCW1 ([facility]) [place] [address] [facility] [address] 09/02/2020 12:00:00 AM EDT eCW1 ([facility]) [place] [address] [facility] [address] 08/20/2020 12:00:00 AM EDT eCW1 ([facility]) [place] [address] [facility] [address] 08/20/2020 12:00:00 AM EDT eCW1 ([facility]) [place] [address] [facility] [address] 08/20/2020 12:00:00 AM EDT eCW1 [facility]) Outpatient Attender: KENA LEON MD [id number] 020 12:00:00 AM EDT - 08/07/2020 03:09:34 PM EDT Stem cells transplant status [facility] Stem cells transplant status [facility] [place] [address] [facility] [address] 07/23/2020 12:00:00 AM EDT eCW1 ([facility]) [place]patient [address] [facility] [address] 06/18/2020 12:00:00 AM EDT eCW1 ([facility]) [place] [address] [facility] [address] 06/18/2020 12:00:00 AM EDT eCW1 ([facility]) [place] [address] [facility] [address] 06/09/2020 12:00:00 AM EDT eCW1 ([facility]) [place] [address] [facility] [address] 06/09/2020 12:00:00 AM EDT eCW1 ([facility]) [place] [address] [facility] [address] 05/21/2020 12:00:00 AM EDT eCW1 ([facility]) Unknown [address] [facility] [place] [address] 05/19/2020 12:00:00 AM EDT eCW1 ([facility]) Outpatient Attender: KENA Rahman-ONCCACTR 020 12:00:00 AM EDT - 05/08/2020 04:13:48 PM EDT Stem cells transplant status [facility] Stem cells transplant status Outpatient Attender: KENA LEON MD 05/02/2020 12:00:00 AM [facility] [address] [facility] [address] 04/25/2020 12:00:00 AM EDT eCW1 ([facility]) Outpatient [address] [place] [address] 04/25/2020 12:00:00 AM EDT eCW1 ([facility]) [facility] [place] [address] [place] [address] [place] [address] 04/16/2020 12:00:00 AM EDT eCW1 ([facility]) Outpatient Attender: KENA LEON MD 04/10/2020 12:00:00 AM [facility] Outpatient Attender: Deloris Barillas/ A.MLily Patten y 04/09/2020 01:00:00 PM EDT [facility] ([facility]) [facility] [place] [address] [facility] [place] [address] 03/31/2020 12:00:00 AM EDT eCW1 ([facility]) Outpatient Attender: KENA LEON MD 03/14/2020 12:00:00 AM [facility] Outpatient Attender: KENA Rahman-ONCCACTR 020 12:00:00 AM EDT - 03/13/2020 10:32:44 AM EDT Encounter for examination of potential d onor of organ and tissue [facility] Encounter for examination of potential d onor of organ and tissue [facility] [place] [address] [facility] [place] [address] 03/06/2020 12:00:00 AM EDT eCW1 ([facility]) [facility] [address] [place] [address], [place] [address] 03/05/2020 12:00:00 AM EDT [facility] [place] [address] [place] [address], [place] [address] 03/05/2020 12:00:00 AM EDT [facility]CW1 [facility] [address] [place] [address], [place] [address] 03/05/2020 12:00:00 AM EDT [facility]CW1 [facility] Outpatient Referrer: Bhavik Herndon MD 02/26/2020 02:46:00 PM EDT [facility] [address] [place] [address], [place] [address] 02/26/2020 12:00:00 AM EDT eCW1 [facility]) [facility] [address] [place] [address], [place] [address] 02/07/2020 12:00:00 AM EDT eCW1 ([facility] [place] [address] [place] [address], [place] [address] 01/26/2020 12:00:00 AM EST [facility]CW1 [facility]) [facility] [place] [address] [place] [address], [place] [address] 01/26/2020 12:00:00 AM EST eCW1 [facility] [address] [place] [address], [place] [address] 01/25/2020 12:00:00 AM EST eCW1 ([facility]) Outpatient Attender: KENA LEON MD [id number] 020 12:00:00 AM EST - 01/24/2020 04:01:47 PM [facility] [facility] [address] 01/23/2020 12:00:00 AM EST eCW1 ([facility]) [facility] [address] [facility] [address] 01/22/2020 12:00:00 AM EST eCW1 ([facility]) [facility] [address] [facility] [address] 01/21/2020 12:00:00 AM EST eCW1 ([facility]) [facility] [address] [facility] [address] 01/14/2020 12:00:00 AM EST eCW1 ([facility]) [facility] [place] [address] [facility] [address] 01/12/2020 12:00:00 AM EST eCW1 ([facility]) [facility] [address] [facility] [address] 12/29/2019 12:00:00 AM EST eCW1 ([facility]) [facility] [address] [facility] [address] 12/28/2019 12:00:00 AM EST eCW1 ([facility]) [facility] [address] [facility] [address] 12/27/2019 12:00:00 AM EST eCW1 ([facility]) [facility] [place] [address] [facility] [address] 12/27/2019 12:00:00 AM EST eCW1 ([facility]) [facility] [address] [facility] [address] 12/22/2019 12:00:00 AM EST eCW1 ([facility]) [facility] [place] [address] [facility] [address] 12/22/2019 12:00:00 AM EST eCW1 ([facility]) [facility] [place] [address] [facility] [address] 12/18/2019 12:00:00 AM EST eCW1 ([facility]) [place] [address] [facility] [address] 12/13/2019 12:00:00 AM EST eCW1 ([facility]) Immunizations Vaccine Date Status Description Data Source(s) DTaP-Hep B-IPV 08/07/2020 12:00:00 AM EDT completed DTaP / Hep B / IPV 08/07/2020 [facility] Hib (PRP-T) 08/07/2020 12:00:00 AM EDT completed HiB (PRP-T) 08/07/[address] [place] [address] Pneumococcal conjugate PCV 13 08/07/2020 12:00:00 AM EDT complet ed Pneumococcal Conjugate PCV13 08/07/2020 [facility] Medications Medication Brand Name Start Date Product Form Dose Route Admi nistrative Instructions Pharmacy Instructions Status Indications Reaction Description Data Source(s) pantoprazole 40 MG Delayed Release Oral Tablet Pantopr azole Sodium 40 MG Pantoprazole Sodium 40 MG 09/27/2020 12:00:00 AM EDT 1.0 {tablet} active Pantoprazole Sodium 40 MG eCW1 ( [facility]) pantoprazole 40 MG Delayed Release Oral Tablet Pantopr azole Sodium 40 MG Pantoprazole Sodium 40 MG 09/27/2020 12:00:00 AM EDT 1.0 {tablet} active Pantoprazole Sodium 40 MG eCW1 ( [facility]) pantoprazole 40 MG Delayed Release Oral Tablet Pantopr azole Sodium 40 MG Pantoprazole Sodium 40 MG 09/27/2020 12:00:00 AM EDT 1.0 {tablet} active Pantoprazole Sodium 40 MG eCW1 ( [facility]) pantoprazole 40 MG Delayed Release Oral Tablet Pantopr azole Sodium 40 MG Pantoprazole Sodium 40 MG 09/27/2020 12:00:00 AM EDT 1.0 {tablet} active Pantoprazole Sodium 40 MG eCW1 ( [facility]) pregabalin 300 MG Oral Capsule [Lyrica] Lyrica 300 MG Lyrica 300 MG 09/09/2020 12:00:00 AM EDT 1.0 {capsule} active L yrica 300 MG eCW1 ([facility]) pregabalin 300 MG Oral Capsule [Lyrica] Lyrica 300 MG Lyrica 300 MG 09/09/2020 12:00:00 AM EDT 1.0 {capsule} active L yrica 300 MG eCW1 ([facility]) pregabalin 300 MG Oral Capsule [Lyrica] Lyrica 300 MG Lyrica 300 MG 09/09/2020 12:00:00 AM EDT 1.0 {capsule} active L yrica 300 MG eCW1 ([facility]) pregabalin 300 MG Oral Capsule [Lyrica] Lyrica 300 MG Lyrica 300 MG 09/09/2020 12:00:00 AM EDT 1.0 {capsule} active L yrica 300 MG eCW1 ([facility]) 0.5 ML acellular pertussis vaccine, inac [...] 08/07/20 at 1416, For 1 dose
Refrigerate
[facility] Medication administered onsite 0.5 [place] [address], capsular polysaccharide inactivated tetanus toxoid conjugate vaccine [...] anterolateral aspect of the thigh or deltoid.
[facility] Medication administered onsite 0.5 ML Streptococcus pneumoniae serotype 1 capsular antigen diphtheria [id number] protein conjugate vaccine 0.0044 MG/ML / Streptococcus pneumoniae serotype 14 capsular antigen diphtheria [id number] protein conjugate vaccine 0.0044 MG/ML / Streptococcus pneumonia pneumococcal 13-valent conjugate vaccine (PREVNAR) injection 0.5 mL pneumococcal 13-valent conjugate vaccine (PREVNAR) injection 0.5 mL 08/07/2020 02:16:15 PM EDT 0.5 mL Intramuscular comp leted 0.5 mL, Intramuscular, Give Now, Starting Wed08/07/20 at 1416, For 1 dose [facility] Medication administered onsite Morphine Sulfate 2 MG/ML Oral Solution Morphine Sulfat e 10 MG/5ML Morphine Sulfate 10 MG/5ML 06/18/2020 12:00:00 AM EDT suspended Morphine Sulfate 10 MG/5ML eCW1 ([facility]) Morphine Sulfate 2 MG/ML Oral Solution Morphine Sulfat e 10 MG/5ML Morphine Sulfate 10 MG/5ML 06/18/2020 12:00:00 AM EDT active Morphine Sulfate 10 MG/5ML eCW1 ([facility]) Morphine Sulfate 2 MG/ML Oral Solution Morphine Sulfat e 10 MG/5ML Morphine Sulfate 10 MG/5ML 06/18/2020 12:00:00 AM EDT active Morphine Sulfate 10 MG/5ML eCW1 ([facility]) Morphine Sulfate 2 MG/ML Oral Solution Morphine Sulfat e 10 MG/5ML Morphine Sulfate 10 MG/5ML 06/18/2020 12:00:00 AM EDT suspended Morphine Sulfate 10 MG/5ML eCW1 ([facility]) Morphine Sulfate 2 MG/ML Oral Solution Morphine Sulfat e 10 MG/5ML Morphine Sulfate 10 MG/5ML 06/18/2020 12:00:00 AM EDT suspended Morphine Sulfate 10 MG/5ML eCW1 ([facility]) Morphine Sulfate 2 MG/ML Oral Solution Morphine Sulfat e 10 MG/5ML Morphine Sulfate 10 MG/5ML 06/18/2020 12:00:00 AM EDT suspended Morphine Sulfate 10 MG/5ML eCW1 ([facility]) Morphine Sulfate 2 MG/ML Oral Solution Morphine Sulfat e 10 MG/5ML Morphine Sulfate 10 MG/5ML 06/18/2020 12:00:00 AM EDT active Morphine Sulfate 10 MG/5ML eCW1 ([facility]) Morphine Sulfate 2 MG/ML Oral Solution Morphine Sulfat e 10 MG/5ML Morphine Sulfate 10 MG/5ML 06/18/2020 12:00:00 AM EDT active Morphine Sulfate 10 MG/5ML eCW1 ([facility]) Morphine Sulfate 2 MG/ML Oral Solution Morphine Sulfat e 10 MG/5ML Morphine Sulfate 10 MG/5ML 06/18/2020 12:00:00 AM EDT active Morphine Sulfate 10 MG/5ML eCW1 ([facility]) Morphine Sulfate 2 MG/ML Oral Solution Morphine Sulfat e 10 MG/5ML Morphine Sulfate 10 MG/5ML 06/18/2020 12:00:00 AM EDT active Morphine Sulfate 10 MG/5ML eCW1 ([facility]) Morphine Sulfate 2 MG/ML Oral Solution Morphine Sulfat e 10 MG/5ML Morphine Sulfate 10 MG/5ML 06/18/2020 12:00:00 AM EDT active Morphine Sulfate 10 MG/5ML eCW1 ([facility]) Morphine Sulfate 2 MG/ML Oral Solution Morphine Sulfat e 10 MG/5ML Morphine Sulfate 10 MG/5ML 06/18/2020 12:00:00 AM EDT active Morphine Sulfate 10 MG/5ML eCW1 ([facility]) Morphine Sulfate 2 MG/ML Oral Solution Morphine Sulfat e 10 MG/5ML Morphine Sulfate 10 MG/5ML 05/22/2020 12:00:00 AM EDT active Morphine Sulfate 10 MG/5ML eCW1 ([facility]) Morphine Sulfate 2 MG/ML Oral Solution Morphine Sulfat e 10 MG/5ML Morphine Sulfate 10 MG/5ML 05/22/2020 12:00:00 AM EDT active Morphine Sulfate 10 MG/5ML eCW1 ([facility]) Morphine Sulfate 2 MG/ML Oral Solution Morphine Sulfat e 10 MG/5ML Morphine Sulfate 10 MG/5ML 05/22/2020 12:00:00 AM EDT active Morphine Sulfate 10 MG/5ML eCW1 ([facility]) Morphine Sulfate 2 MG/ML Oral Solution Morphine Sulfat e 10 MG/5ML Morphine Sulfate 10 MG/5ML 05/22/2020 12:00:00 AM EDT active Morphine Sulfate 10 MG/5ML eCW1 ([facility]) Morphine Sulfate 2 MG/ML Oral Solution Morphine Sulfat e 10 MG/5ML Morphine Sulfate 10 MG/5ML 03/06/2020 12:00:00 AM EDT active Morphine Sulfate 10 MG/5ML eCW1 ([facility]) Morphine Sulfate 2 MG/ML Oral Solution Morphine Sulfat e 10 MG/5ML Morphine Sulfate 10 MG/5ML 03/06/2020 12:00:00 AM EDT activ e 2.5 -5 ml eCW1 ([facility]) Morphine Sulfate 2 MG/ML Oral Solution Morphine Sulfat e 10 MG/5ML Morphine Sulfate 10 MG/5ML 12/29/2019 12:00:00 AM EST activ e 2.5 mL eCW1 ([facility]) Morphine Sulfate 2 MG/ML Oral Solution Morphine Sulfat e 10 MG/5ML Morphine Sulfate 10 MG/5ML 12/29/2019 12:00:00 AM EST activ e 2.5 mL eCW1 ([facility]) Morphine Sulfate 2 MG/ML Oral Solution Morphine Sulfat e 10 MG/5ML Morphine Sulfate 10 MG/5ML 12/28/2019 12:00:00 AM EST activ e 2.5 mL eCW1 ([facility]) Morphine Sulfate 2 MG/ML Oral Solution Morphine Sulfat e 10 MG/5ML Morphine Sulfate 10 MG/5ML 12/28/2019 12:00:00 AM EST activ e 2.5 mL eCW1 ([facility]) Albuterol 0.833 MG/ML / Ipratropium Brom leonardo 0.167 MG/ML Inhalant Solution Ipratropium-Albuterol 0.5-2.5 (3) MG/3ML Ipratropium-Albuterol 0.5-2.5 (3) MG/3ML 12/22/2019 12:00:00 AM EST active 3 ml as needed eCW1 ([facility]) Trazodone Hydrochloride 50 MG Oral Tablet TraZODone HC l 50 MG TraZODone HCl 50 MG 12/22/2019 12:00:00 AM EST active 1 tablet at bedtime eCW1 ([facility]) Albuterol 0.833 MG/ML / Ipratropium Brom leonardo 0.167 MG/ML Inhalant Solution Ipratropium-Albuterol 0.5-2.5 (3) MG/3ML Ipratropium-Albuterol 0.5-2.5 (3) MG/3ML 12/22/2019 12:00:00 AM EST active 3 ml as needed eCW1 ([facility]) Albuterol 0.83 MG/ML Inhalant Solution Albuterol Sulfa te (2.5 MG/3ML) 0.083% Albuterol Sulfate (2.5 MG/3ML) 0.083% 12/22/2019 12:00:00 AM EST 3.0 {ml_as_needed} suspended Albuterol Sulfa te (2.5 MG/3ML) 0.083% eCW1 ([facility]) Albuterol 0.833 MG/ML / Ipratropium Brom leonardo 0.167 MG/ML Inhalant Solution Ipratropium-Albuterol 0.5-2.5 (3) MG/3ML Ipratropium-Albuterol 0.5-2.5 (3) MG/3ML 12/22/2019 12:00:00 AM EST 3.0 {ml_as_needed} suspended Ipratropium-Albuterol 0.5-2.5 (3) MG/3ML eCW1 ([facility]) Trazodone Hydrochloride 50 MG Oral Tablet TraZODone HC l 50 MG TraZODone HCl 50 MG 12/22/2019 12:00:00 AM EST active 1 tablet at bedtime eCW1 ([facility]) Levofloxacin 750 MG Oral Tablet [Levaquin] Levaquin 750 MG L evaquin 750 MG 12/22/2019 12:00:00 AM EST active 1 tablet eCW1 ([facility]) Albuterol 0.83 MG/ML Inhalant Solution Albuterol Sulfa te (2.5 MG/3ML) 0.083% Albuterol Sulfate (2.5 MG/3ML) 0.083% 12/22/2019 12:00:00 AM EST 3.0 {ml_as_needed} suspended Albuterol Sulfa te (2.5 MG/3ML) 0.083% eCW1 ([facility]) Trazodone Hydrochloride 150 MG Oral Tablet TraZODone H Cl 150 MG TraZODone HCl 150 MG 12/22/2019 12:00:00 AM EST active TraZODone HCl 150 MG eCW1 ([facility]) Albuterol 0.83 MG/ML Inhalant Solution Albuterol Sulfa te (2.5 MG/3ML) 0.083% Albuterol Sulfate (2.5 MG/3ML) 0.083% 12/22/2019 12:00:00 AM EST active 3 ml as needed eCW1 ([facility]) Albuterol 0.83 MG/ML Inhalant Solution Albuterol Sulfa te (2.5 MG/3ML) 0.083% Albuterol Sulfate (2.5 MG/3ML) 0.083% 12/22/2019 12:00:00 AM EST active 3 ml as needed eCW1 ([facility]) Trazodone Hydrochloride 50 MG Oral Tablet TraZODone HC l 50 MG TraZODone HCl 50 MG 12/22/2019 12:00:00 AM EST active 1 tablet at bedtime eCW1 ([facility]) Albuterol 0.833 MG/ML / Ipratropium Brom leonardo 0.167 MG/ML Inhalant Solution Ipratropium-Albuterol 0.5-2.5 (3) MG/3ML Ipratropium-Albuterol 0.5-2.5 (3) MG/3ML 12/22/2019 12:00:00 AM EST 3.0 {ml_as_needed} suspended Ipratropium-Albuterol 0.5-2.5 (3) MG/3ML eCW1 ([facility]) Albuterol 0.833 MG/ML / Ipratropium Brom leonardo 0.167 MG/ML Inhalant Solution Ipratropium-Albuterol 0.5-2.5 (3) MG/3ML Ipratropium-Albuterol 0.5-2.5 (3) MG/3ML 12/22/2019 12:00:00 AM EST 3.0 {ml_as_needed} suspended Ipratropium-Albuterol 0.5-2.5 (3) MG/3ML eCW1 ([facility]) Albuterol 0.83 MG/ML Inhalant Solution Albuterol Sulfa te (2.5 MG/3ML) 0.083% Albuterol Sulfate (2.5 MG/3ML) 0.083% 12/22/2019 12:00:00 AM EST 3.0 {ml_as_needed} suspended Albuterol Sulfa te (2.5 MG/3ML) 0.083% eCW1 ([facility]) Albuterol 0.833 MG/ML / Ipratropium Brom leonardo 0.167 MG/ML Inhalant Solution Ipratropium-Albuterol 0.5-2.5 (3) MG/3ML Ipratropium-Albuterol 0.5-2.5 (3) MG/3ML 12/22/2019 12:00:00 AM EST active 3 ml as needed eCW1 ([facility]) Albuterol 0.83 MG/ML Inhalant Solution Albuterol Sulfa te (2.5 MG/3ML) 0.083% Albuterol Sulfate (2.5 MG/3ML) 0.083% 12/22/2019 12:00:00 AM EST 3.0 {ml_as_needed} suspended Albuterol Sulfa te (2.5 MG/3ML) 0.083% [facility] ([facility]) Levofloxacin 750 MG Oral Tablet [Levaquin] Levaquin 750 MG L evaquin 750 MG 12/22/2019 12:00:00 AM EST active 1 tablet eCW1 ([facility]) Albuterol 0.83 MG/ML Inhalant Solution Albuterol Sulfa te (2.5 MG/3ML) 0.083% Albuterol Sulfate (2.5 MG/3ML) 0.083% 12/22/2019 12:00:00 AM EST 3.0 {ml_as_needed} suspended Albuterol Sulfa te (2.5 MG/3ML) 0.083% eCW ([facility]) Albuterol 0.833 MG/ML / Ipratropium Brom leonardo 0.167 MG/ML Inhalant Solution Ipratropium-Albuterol 0.5-2.5 (3) MG/3ML Ipratropium-Albuterol 0.5-2.5 (3) MG/3ML 12/22/2019 12:00:00 AM EST active 3 ml as needed eCW1 ([facility]) Trazodone Hydrochloride 50 MG Oral Tablet TraZODone HC l 50 MG TraZODone HCl 50 MG 12/22/2019 12:00:00 AM EST active 1 tablet at bedtime eCW1 ([facility]) Albuterol 0.83 MG/ML Inhalant Solution Albuterol Sulfa te (2.5 MG/3ML) 0.083% Albuterol Sulfate (2.5 MG/3ML) 0.083% 12/22/2019 12:00:00 AM EST active 3 ml as needed eCW1 ([facility]) Albuterol 0.833 MG/ML / Ipratropium Brom leonardo 0.167 MG/ML Inhalant Solution Ipratropium-Albuterol 0.5-2.5 (3) MG/3ML Ipratropium-Albuterol 0.5-2.5 (3) MG/3ML 12/22/2019 12:00:00 AM EST 3.0 {ml_as_needed} suspended Ipratropium-Albuterol 0.5-2.5 (3) MG/3ML eCW1 ([facility]) Trazodone Hydrochloride 150 MG Oral Tablet TraZODone H Cl 150 MG TraZODone HCl 150 MG 12/22/2019 12:00:00 AM EST active TraZODone HCl 150 MG eCW1 ([facility]) Trazodone Hydrochloride 150 MG Oral Tablet TraZODone H Cl 150 MG TraZODone HCl 150 MG 12/22/2019 12:00:00 AM EST active TraZODone HCl 150 MG eCW1 ([facility]) Albuterol 0.833 MG/ML / Ipratropium Brom leonardo 0.167 MG/ML Inhalant Solution Ipratropium-Albuterol 0.5-2.5 (3) MG/3ML Ipratropium-Albuterol 0.5-2.5 (3) MG/3ML 12/22/2019 12:00:00 AM EST 3.0 {ml_as_needed} suspended Ipratropium-Albuterol 0.5-2.5 (3) MG/3ML eCW1 ([facility]) Trazodone Hydrochloride 150 MG Oral Tablet TraZODone H Cl 150 MG TraZODone HCl 150 MG 12/22/2019 12:00:00 AM EST active TraZODone HCl 150 MG eCW1 ([facility]) Trazodone Hydrochloride 150 MG Oral Tablet TraZODone H Cl 150 MG TraZODone HCl 150 MG 12/22/2019 12:00:00 AM EST active TraZODone HCl 150 MG eCW1 ([facility]) Albuterol 0.83 MG/ML Inhalant Solution Albuterol Sulfa te (2.5 MG/3ML) 0.083% Albuterol Sulfate (2.5 MG/3ML) 0.083% 12/22/2019 12:00:00 AM EST active 3 ml as needed eCW1 ([facility]) Docusate Sodium 50 MG / sennosides, LONG TERM 8.6 MG Oral Tablet [SENOKOT-S] Senokot S 8.6-50 MG Senokot S 8.6-50 MG 12/13/2019 12:00:00 AM EST 1 .0 {tablet_in_the_evening_as_needed} active Senokot S 8.6-50 MG eCW1 ([facility]) Docusate Sodium 50 MG / sennosides, LONG TERM 8.6 MG Oral Tablet [SENOKOT-S] Senokot S 8.6-50 MG Senokot S 8.6-50 MG 12/13/2019 12:00:00 AM EST 1 .0 {tablet_in_the_evening_as_needed} active Senokot S 8.6-50 MG eCW1 ([facility]) Docusate Sodium 50 MG / sennosides, LONG TERM 8.6 MG Oral Tablet [SENOKOT-S] Senokot S 8.6-50 MG Senokot S 8.6-50 MG 12/13/2019 12:00:00 AM EST 1 .0 {tablet_in_the_evening_as_needed} active Senokot S 8.6-50 MG eCW1 ([facility]) Docusate Sodium 50 MG / sennosides, LONG TERM 8.6 MG Oral Tablet [SENOKOT-S] Senokot S 8.6-50 MG Senokot S 8.6-50 MG 12/13/2019 12:00:00 AM EST 1 .0 {tablet_in_the_evening_as_needed} active Senokot S 8.6-50 MG eCW1 ([facility]) Docusate Sodium 50 MG / sennosides, LONG TERM 8.6 MG Oral Tablet [SENOKOT-S] Senokot S 8.6-50 MG Senokot S 8.6-50 MG 12/13/2019 12:00:00 AM EST 1 .0 {tablet_in_the_evening_as_needed} active Senokot S 8.6-50 MG eCW1 ([facility]) Docusate Sodium 50 MG / sennosides, LONG TERM 8.6 MG Oral Tablet [SENOKOT-S] Senokot S 8.6-50 MG Senokot S 8.6-50 MG 12/13/2019 12:00:00 AM EST 1 .0 {tablet_in_the_evening_as_needed} active Senokot S 8.6-50 MG eCW1 ([facility]) Docusate Sodium 50 MG / sennosides, LONG TERM 8.6 MG Oral Tablet [SENOKOT-S] Senokot S 8.6-50 MG Senokot S 8.6-50 MG 12/13/2019 12:00:00 AM EST active 1 tablet in the evening as needed eCW1 ([facility]) Docusate Sodium 50 MG / sennosides, LONG TERM 8.6 MG Oral Tablet [SENOKOT-S] Senokot S 8.6-50 MG Senokot S 8.6-50 MG 12/13/2019 12:00:00 AM EST 1 .0 {tablet_in_the_evening_as_needed} active Senokot S 8.6-50 MG eCW1 ([facility]) Docusate Sodium 50 MG / sennosides, LONG TERM 8.6 MG Oral Tablet [SENOKOT-S] Senokot S 8.6-50 MG Senokot S 8.6-50 MG 12/13/2019 12:00:00 AM EST 1 .0 {tablet_in_the_evening_as_needed} active Senokot S 8.6-50 MG eCW1 ([facility]) Docusate Sodium 50 MG / sennosides, LONG TERM 8.6 MG Oral Tablet [SENOKOT-S] Senokot S 8.6-50 MG Senokot S 8.6-50 MG 12/13/2019 12:00:00 AM EST 1 .0 {tablet_in_the_evening_as_needed} active Senokot S 8.6-50 MG eCW1 ([facility]) Docusate Sodium 50 MG / sennosides, LONG TERM 8.6 MG Oral Tablet [SENOKOT-S] Senokot S 8.6-50 MG Senokot S 8.6-50 MG 12/13/2019 12:00:00 AM EST 1 .0 {tablet_in_the_evening_as_needed} active Senokot S 8.6-50 MG eCW1 ([facility]) Docusate Sodium 50 MG / sennosides, LONG TERM 8.6 MG Oral Tablet [SENOKOT-S] Senokot S 8.6-50 MG Senokot S 8.6-50 MG 12/13/2019 12:00:00 AM EST 1 .0 {tablet_in_the_evening_as_needed} active Senokot S 8.6-50 MG eCW1 ([facility]) Docusate Sodium 50 MG / sennosides, LONG TERM 8.6 MG Oral Tablet [SENOKOT-S] Senokot S 8.6-50 MG Senokot S 8.6-50 MG 12/13/2019 12:00:00 AM EST active 1 tablet in the evening as needed eCW1 ([facility]) Docusate Sodium 50 MG / sennosides, LONG TERM 8.6 MG Oral Tablet [SENOKOT-S] Senokot S 8.6-50 MG Senokot S 8.6-50 MG 12/13/2019 12:00:00 AM EST 1 .0 {tablet_in_the_evening_as_needed} active Senokot S 8.6-50 MG eCW1 ([facility]) Docusate Sodium 50 MG / sennosides, LONG TERM 8.6 MG Oral Tablet [SENOKOT-S] Senokot S 8.6-50 MG Senokot S 8.6-50 MG 12/13/2019 12:00:00 AM EST 1 .0 {tablet_in_the_evening_as_needed} active Senokot S 8.6-50 MG eCW1 ([facility]) Docusate Sodium 50 MG / sennosides, LONG TERM 8.6 MG Oral Tablet [SENOKOT-S] Senokot S 8.6-50 MG Senokot S 8.6-50 MG 12/13/2019 12:00:00 AM EST 1 .0 {tablet_in_the_evening_as_needed} active Senokot S 8.6-50 MG eCW1 ([facility]) Docusate Sodium 50 MG / sennosides, LONG TERM 8.6 MG Oral Tablet [SENOKOT-S] Senokot S 8.6-50 MG Senokot S 8.6-50 MG 12/13/2019 12:00:00 AM EST active 1 tablet in the evening as needed eCW1 ([facility]) Docusate Sodium 50 MG / sennosides, LONG TERM 8.6 MG Oral Tablet [SENOKOT-S] Senokot S 8.6-50 MG Senokot S 8.6-50 MG 12/13/2019 12:00:00 AM EST 1 .0 {tablet_in_the_evening_as_needed} active Senokot S 8.6-50 MG eCW1 ([facility]) Docusate Sodium 50 MG / sennosides, LONG TERM 8.6 MG Oral Tablet [SENOKOT-S] Senokot S 8.6-50 MG Senokot S 8.6-50 MG 12/13/2019 12:00:00 AM EST 1 .0 {tablet_in_the_evening_as_needed} active Senokot S 8.6-50 MG eCW1 ([facility]) Docusate Sodium 50 MG / sennosides, LONG TERM 8.6 MG Oral Tablet [SENOKOT-S] Senokot S 8.6-50 MG Senokot S 8.6-50 MG 12/13/2019 12:00:00 AM EST 1 .0 {tablet_in_the_evening_as_needed} active Senokot S 8.6-50 MG eCW1 ([facility]) Docusate Sodium 50 MG / sennosides, LONG TERM 8.6 MG Oral Tablet [SENOKOT-S] Senokot S 8.6-50 MG Senokot S 8.6-50 MG 12/13/2019 12:00:00 AM EST active 1 tablet in the evening as needed eCW1 ([facility]) Docusate Sodium 50 MG / sennosides, LONG TERM 8.6 MG Oral Tablet [SENOKOT-S] Senokot S 8.6-50 MG Senokot S 8.6-50 MG 12/13/2019 12:00:00 AM EST active 1 tablet in the evening as needed eCW1 ([facility]) Insurance Providers Payer name Policy type / Coverage type Policy ID Covered alliance party ID Covered alliance party's relationship to daniel Policy Daniel Plan Information EMEDNY [id number] SP [id number] BS EMPIRE JOBY DIV [id number] [id number] MEDICARE [id number] SP [id number] [facility] [id number] HU2 89 [id number] MEDICAID M [id number] S [id number] MEDICARE C [id number] S [id number] [facility] O [id number] S [id number] [facility] [id number] HU2 89 [id number] VNA MEDICAID MANAGED I [id number] Self [id number] MEDICAID M [id number] Self [id number] MEDICARE A [id number] Self [id number] EMPIRE PLAN [facility] U [id number] Spouse [id number] BCBS EMPIRE JOBY DIV [id number] MEDICAID [id number] SP [id number] BS EMPIRE JOBY DIV [id number] HU2 [id number] BCBS EMPIRE JOBY DIV [id number] HU2 [id number] [facility] [id number] SP [id number] BCBS EMPIRE JOBY DIV [id number] HU2 [id number] MEDICARE [id number] SP [id number] VNA MEDICAID MANAGED I [id number] Self [id number] MEDICARE A [id number] Self [id number] A BCBS EMPIRE JOBY DIV [id number] HU2 [id number] BCBS EMPIRE JOBY DIV [id number] MEDICARE [id number] SP [id number] [facility] [id number] 2 [id number] [facility] [id number] [facility] 07 [id number] BCBS EMPIRE JOBY DIV [id number] HU2 [id number] BCBS EMPIRE JOBY DIV [id number] BCBS EMPIRE JOBY DIV [id number] HU2 [id number] [facility] [id number] SP [id number] N7 MEDICARE [id number] SP [id number] A MEDICARE [id number] SP [id number] A BCBS EMPIRE JOBY DIV [id number] HU2 [id number] [facility] [id number] [facility] [id number] [facility] [id number] [facility] [id number] [facility] [id number] 07 [id number] [facility] [id number] 07 [id number] BCBS EMPIRE JOBY DIV [id number] BCBS EMPIRE JOBY DIV [id number] [place] JE PART B C [id number] S [id number] ANS-Commercial [id number] [facility]-Medicaid [id number] ANSI-Medicare Part B [id number] ANSI-Medicaid [id number] ANSI-Commercial [id number]-[id number] [id number]-[id number] ANSI-Medicare Part B [id number] ANSI-Commercial [id number]-7380-2x80-3815-89p5gu9vcrz0 gl651fvi-3663-5w76-7756-96v0qf7jxzs0 ANSI-Medicare Part B [id number] ANSI-Medicaid [id number] ANSI-Commercial [id number]-x93u-528p460w2u4u 418f4226-0a80-5b10-j49e-[id number] ANSI-Medicaid [id number] ANSI-Medicare Part B [id number] ANSI-Commercial 573c21zp-402a-9n12-60y3-q31786o06mhc 836q96ho-962i-6a27-47y3-u45322a63isp ANSI-Medicare Part B [id number] ANSI-Medicaid [id number] ANSI-Commercial 3e8l893k-4u01-0u36-066z-[id number] 1b3m520q-6r45-6v77-586o-[id number] ANSI-Medicaid [id number] ANSI-Medicare Part B [id number] ANS-Medicaid [id number] ANSI-Medicare Part B [id number] ANSI-Commercial [id number]-4c21-708u-r3xo-62c7m3r36q12 186w15zu-1u13-651l-n8yz-50h8j4k73c05 ANSI-Medicare Part B [id number] ANSI-Commercial rwo35u20-g795-779o-9fzs-905lj2k3n452 bvr75f95-e392-776u-3tyl-363ms4j1z640 ANSI-Medicaid [id number] ANSI-Medicare Part B [id number] ANSI-Commercial 311z042z-8126-3842-g571-zt07n8663ff2 343j037h-9430-9392-f816-yk81x3000wz2 ANSI-Medicaid [id number] ANSI-Medicaid [id number] ANSI-Commercial 03e25u26-t146-276l-bn83-p033j22402n8 67i74g34-e909-796g-mi89-f428r03440x5 ANSI-Medicare Part B [id number] ANSI-Commercial 1837b419-33lp-3y7v-80d5-2x273yleo5m7 7406m816-44fk-5s8q-65o7-7c531rypk1q3 ANSI-Medicaid [id number] ANSI-Medicare Part B [id number] ANSI-Medicaid [id number] ANSI-Medicare Part B [id number] ANSI-Commercial 518xgy71-97i5-8598-wfj6-oqj967h62787 662mjz37-91c1-5017-nld3-wue365a10377 ANSI-Commercial y4l8uxxv-b7b5-0a8l-318o-kv0043u5ap99 w0k1jyjv-a0i4-3q6x-354g-ir9214a4zk30 ANSI-Medicare Part B [id number] [facility] [id number] ANSI-Commercial 84790w69-v166-1w40-1581-zook348200j8 50234w28-j366-5g47-0692-rvjk854287n6 [facility] [id number] ANSI-Medicare Part B [id number] ANSI-Commercial x26521f2-49ot-9713-vw98-1486p5olyryk a70694r8-37xl-8066-rx56-5594j8nnihny [facility] [id number] [facility] [id number] [facility] [id number] ANSI-Medicaid [id number] ANSI-Medicare Part B [id number] ANSI-Medicare Part B [id number] ANSI-Medicaid [id number] ANSI-Commercial vk7jc649-48oj-6669-660y-2959122ef9f7 op7ie373-48se-0180-652f-9003209lw4i8 ANSI-Medicaid [id number] ANSI-Commercial [id number]-yv1z-8810-r8b7-0072qs0q0y50 2o4m4944-pd1i-3597-i9e0-0820em9h4a18 ANSI-Medicare Part B [id number] ANSI-Medicaid [id number] ANSI-Medicare Part B [id number] ANSI-Commercial 8ts03632-x51h-4q27-271f-f7fw41714l14 3he55206-j76j-8o76-771z-u4qj23174u99 ANSI-Commercial j3hg9072-03yl-5ff0-q317-1zlgo0w13z3i w6oe8753-09ch-7gu7-q406-9sqkw5d65o9c ANSI-Medicare Part B [id number] ANSI-Medicaid [id number] ANSI-Commercial 67edk3e8-i3c9-0690-xg2g-6gxrh014ur4u 98fsh0e0-r9i4-0938-di5i-2soce834uo0x ANSI-Medicaid [id number] ANSI-Medicare Part B [id number] ANSI-Medicare Part B [id number] ANSI-Commercial 25t61qs1-7a9v-0102-27e4-h843310r1y1e 23e48gx8-3w4i-1962-09g9-y799571i7w9b ANSI-Medicaid [id number] ANSI-Medicare Part B [id number] ANSI-Medicaid [id number] ANSI-Commercial [id number]-[id number] g3674k74-5u9s-[id number] ANSI-Medicaid [id number] ANSI-Commercial 7707g7rw-1745-68bk-62j3-40d60vfb37b4 1066k9fr-3943-77rt-32l7-13j03ipc17b3 [facility] [id number] ANSI-Commercial 3hx3h4c2-04t9-7p44-auo4-9o43x0n7614g 3xz3c6e4-70x6-4t21-bvu6-9e10j7s2432b ANSI-Medicare Part B [id number] ANSI-Commercial 9r5u8nd2-015s-494v-p585-2uh48ugc2dp8 8u5g3kb1-354m-662u-q213-6sk45ady2un9 ANSI-Medicare Part B [id number] ANSI-Commercial ns455b25-72ys-65q1-e3t0-wy04680kqu50 qz208m10-67aj-64i2-q2k5-vd47185fwb50 ANSI-Medicare Part B [id number] [place] Medigap Part B [id number] Family Dependent [id number] Medicare Medicare Primary [id number] Self 3 [id number] ANSI-Medicare Part B [id number] ANSI-Commercial w06y5uau-34jy-3r35-a9w6-3h2z02kz442f z25v0tfk-79bb-5u17-s2y7-0q1m19af186h ANSI-Medicare Part B [id number] ANSI-Commercial 37g2v69x-4321-4257-16fd-858rd870l6h3 80e3z24i-8808-4861-19ev-168ku270c6o6 ANSI-Medicare Part B [id number] ANSI-Commercial [id number] [place] MEDICARE PART B C [id number] S [id number] MEDICARE C [id number] S [id number] A [place] Plan Medigap Part B [id number] Family Dependent [id number] Medicare - NGS Medicare Primary [id number] Self [id number] [place] ([facility]) P [id number] P [id number] A [id number] Problems, Conditions, and Diagnoses Code Display Name Description Problem Type Effective Dates Data Source(s) Z94.84 [id number] Hx of allogeneic stem cell transplant [place] b[place] 04/25/2020 12:00:00 AM EDT eCW1 ([facility]) Z94.84 [id number] Hx of allogeneic stem cell transplant [place] 04/25/2020 12:00:00 AM EDT eCW1 ([facility]) Z94.84 [id number] Stem cells transplant status Problem 03/05/2020 12:00:00 AM EDT eCW1 ([facility]) M54.5 [id number] Low back pain at multiple sites Problem 12/28/2019 12:00:00 AM EST eCW1 ([facility]) M54.5 [id number] Low back pain at multiple sites Problem 12/28/2019 12:00:00 AM EST eCW1 ([facility]) Z94.84 Stem cells transplant status Stem cells transplant sta tus Diagnosis 11/06/2020 03:22:17 PM [facility] Z00.5 Encounter for examination of potential d onor of organ and tissue Encounter for examination of potential donor of organ and tissue Diagnosis 03/13/2020 09:19:58 AM [facility] Surgeries/Procedures Procedure Description Date Indications Data Source(s) US RETROPERITONEAL REAL TIME W/IMAGE LIMITED 0 12:00:00 AM EST [facility] ([facility]) US RETROPERITONEAL REAL TIME W/IMAGE LIMITED 0 12:00:00 AM EST [facility] ([facility]) BLOOD COUNT COMPLETE AUTOMATED CBC AND DIFFERENTIAL STAT 08/07/2020 1:15 PM EDT H/O autologous stem cell transplant 08/07/2020 01:15:00 PM E DT H/O autologous stem cell transplant [facility] H/O autologous stem cell transplant COMPREHENSIVE METABOLIC PANEL COMPREHENSIVE METABOLIC PANEL STA T 08/07/2020 1:15 PM EDT H/O autologous stem cell transplant 08/07/2020 01:15:00 PM E DT H/O autologous stem cell transplant [facility] H/O autologous stem cell transplant LAB RESULTS (OUTSIDE/HISTORICAL) LAB RESULTS (OUTSIDE/HISTORICA L) 04/09/2020 11:51 AM EDT 04/09/2020 03:51:00 PM EDT U [facility] BLOOD COUNT COMPLETE AUTO&AUTO DIFRNTL WBC COUNT CBC AND DIFFER ENTIAL STAT 03/13/2020 9:40 AM EDT H/O autologous stem cell transplant 03/13/2020 01:40:00 PM E DT H/O autologous stem cell transplant [facility] H/O autologous stem cell transplant COMPREHENSIVE METABOLIC PANEL COMPREHENSIVE METABOLIC PANEL STA T 03/13/2020 9:40 AM EDT H/O autologous stem cell transplant 03/13/2020 01:40:00 PM E DT H/O autologous stem cell transplant [facility] H/O autologous stem cell transplant Office Visit, Est Pt., Level 4 PC 03/05/2020 12:00:00 AM EDT eCW1 ([facility]) Office Visit, Est Pt., Level 2 FC 03/05/2020 12:00:00 AM EDT eCW1 ([facility]) Results ID Date Data Source [id number] 12/26/2020 08:00:00 AM EST [facility] Name Value Range Interpretation Code Description Data Earnestine rce(s) Supporting Document(s) SARS coronavirus 2 RNA [Presence] in Res piratory specimen by LOVE with probe detection NEGATIVE [facility] This lab was ordered by [facility] a nd reported by [facility]. ID Date Data Source [id number] 12/18/2020 05:36:00 PM EST [facility] Name Value Range Interpretation Code Description Data Earnestine rce(s) Supporting Document(s) SARS-CoV-2 (COVID 19) NEGATIVE - SARS-CoV-2 (COVID19) [facility] This lab was ordered by [facility] a nd reported by [facility]. ID Date Data Source [id number] 11/06/2020 06:08:54 PM EST [facility] Name Value Range Interpretation Code Description Data Earnestine rce(s) Supporting Document(s) Leukocytes [#/volume] in Blood by Automated count 6.4 10*3/uL 4-10 [facility] Erythrocytes [#/volume] in Blood by Automated count 3.91 10*6/uL 4.1- 5.3 L [facility] Hemoglobin [Mass/volume] in Blood 10.9 g/dL 11.5-15.5 L [facility] Hematocrit [Volume Fraction] of Blood by Automated count 32.2 % 3 6-45 L [facility] Erythrocyte mean corpuscular volume [Entitic volume] by Auto mated count 82.4 fL 80-96 [facility] Erythrocyte mean corpuscular hemoglobin [Entitic mass] by Automated count 27.9 pg 27-33 [facility] Erythrocyte mean corpuscular hemoglobin concentration [Mass/volume] by Automated count 33.8 g/dL 32.0-[facility] width [Ratio] by Automated count 17.4 % 11.5-14.5 H [facility] Platelets [#/volume] in Blood by Automated count 246 10*3/uL 150-400 [facility] Differential cell count method - Blood [facility] Neutrophils/100 leukocytes in Blood by Automated count 75 % [facility] Lymphocytes/100 leukocytes in Blood by Automated count 10 % [facility] Monocytes/100 leukocytes in Blood by Automated count 10 % [facility] Eosinophils/100 leukocytes in Blood by Automated count 4 % [facility] Basophils/100 leukocytes in Blood by Automated count 1 % [facility] Neutrophils [#/volume] in Blood by Automated count 4.83 10*3/uL 1.8-7 .0 [facility] Lymphocytes [#/volume] in Blood by Automated count 0.64 10*3/uL 1.2-4 .0 L [facility] Monocytes [#/volume] in Blood by Automated count 0.65 10*3/uL 0-0.8 [facility] Eosinophils [#/volume] in Blood by Automated count 0.24 10*3/uL 0-0.5 [facility] Basophils [#/volume] in Blood by Automated count 0.04 10*3/uL 0-0.2 [facility] Nucleated erythrocytes/100 leukocytes [Ratio] in Blood by Automated count 0 /100{WBCs} 0-0 [facility] ID Date Data Source [id number] 10/11/2020 03:35:00 PM EST [facility] ([facility] [place] Name Value Range Interpretation Code Description Data Earnestine rce(s) Supporting Document(s) Creatinine [Mass/volume] in Serum or Plasma 1.85 mg/dL 0.57-1.11 [facility] ([facility]) Glucose [Mass/volume] in Serum or Plasma 125.0 mg/dL 70.0-99.0 [facility] ([facility]) Carbon dioxide, total [Moles/volume] in Serum or Plasma 21.0 mmol/L 22.0-31.0 [facility] ([facility]) BUN/Creat Ratio 20.5 [facility] ([facility] Urea nitrogen [Mass/volume] in Serum or Plasma 38.0 mg/dL 7.0-24.0 [facility] ([facility]) Calcium [Mass/volume] in Serum or Plasma 8.8 mg/dL 8.4-10.2 [facility] ([facility]) K 4.3 mmol/L 3.6-5.2 [facility] ([facility]) Chloride [Moles/volume] in Serum or Plasma 107.0 mmol/L 98.0-108.0 [facility] ([facility]) Anion gap in Serum or Plasma 18.3 [facility] ([facility]) Sodium [Moles/volume] in Serum or Plasma 142.0 mmol/L 136.0-145.0 [facility] ([facility]) eGFR - Descent 33.6 [facility] ([facility]) eGFR -- Non- Descent 27.7 [facility] ([facility]) ID Date Data Source LIPID PANEL (CARDIAC RISK) 10/01/2020 02:17:26 AM EST eCW1 ( [facility]) Name Value Range Interpretation Code Description Data Earnestine rce(s) Supporting Document(s) Cholesterol [Moles/volume] in Serum or Plasma 160 CHOLESTEROL LEVEL eCW1 ([facility]) Triglyceride [Mass/volume] in Serum or Plasma by calculation 405 TRIGLYCERIDES LEVEL eCW1 ([facility]) Cholesterol in HDL [Moles/volume] in Serum or Plasma 39 HDL CHOLESTEROL eC1 ([facility]) 4.102 CHOLESTEROL RISK RATIO eCW1 ([facility]) 121 NON-HDL-C eCW1 ([facility]) ID Date Data Source FREE T4 & TSH PANEL 10/01/2020 02:17:26 AM EST eCW1 ([facility]) Name Value Range Interpretation Code Description Data Earnestine rce(s) Supporting Document(s) 0.87 FREE T4 eCW1 ([facility]) 3.490 THYROID STIMULATING HORMONE eC W1 ([facility]) ID Date Data Source Comprehensive Metabolic Profile (CMP) 10/01/2020 02:17:26 AM EST eCW1 ([facility]) Name Value Range Interpretation Code Description Data Earnestine rce(s) Supporting Document(s) 91 GLUCOSE, FASTING eCW1 ([facility]) 28.6 GLOMERULAR FILTRATION RATE eCW 1 ([facility]) 39 BLOOD UREA NITROGEN eCW1 ([facility]) 1.95 CREATININE FOR GFR eCW1 ([facility]) 107 CHLORIDE LEVEL eCW1 ([facility]) 23 CARBON DIOXIDE LEVEL eCW1 ([facility]) 139 SODIUM LEVEL eCW1 ([facility]) 4.7 POTASSIUM SERUM eCW1 ([facility]) 474 ALKALINE PHOSPHATASE eCW1 ([facility]) 26 AST/SGOT eCW1 ([facility]) 22 ALT/SGPT eCW1 ([facility]) 9.0 CALCIUM LEVEL eCW1 ([facility]) 1.0 ALBUMIN/GLOBULIN RATIO eCW1 ([facility]) 0.3 BILIRUBIN,TOTAL eCW1 ([facility]) 6.7 TOTAL PROTEIN eCW1 ([facility]) 3.4 ALBUMIN eCW1 ([facility]) ID Date Data Source CBC with Differential 10/01/2020 02:17:26 AM EST eCW1 ([facility]) Name Value Range Interpretation Code Description Data Earnestine rce(s) Supporting Document(s) 8.7 WHITE BLOOD COUNT eCW1 ([facility]) 86.0 MEAN CORPUSCULAR VOLUME eCW1 ( [facility]) 36.1 HEMATOCRIT eCW1 ([facility]) 11.1 HEMOGLOBIN eCW1 ([facility]) 4.20 RED BLOOD COUNT eCW1 ([facility]) 26.4 MEAN CORPUSCULAR HEMOGLOBIN eC W1 ([facility]) 30.7 MEAN CORPUSCULAR HGB CONC eCW1 ([facility]) 16.9 RED CELL DISTRIBUTION WIDTH eC W1 ([facility]) 274 PLATELET COUNT, AUTOMATED eCW1 ([facility]) 82.9 NEUTROPHILS % eCW1 ([facility]) 5.5 LYMPH % eCW1 ([facility]) 7.5 MONO % eCW1 ([facility]) 7.2 NEUTROPHILS # eCW1 ([facility]) 3.0 EOS % eCW1 ([facility]) 0.3 BASO % eCW1 ([facility]) 0.7 MONO # eCW1 ([facility]) 0.5 LYMPH # eCW1 ([facility]) 0.0 BASO # eCW1 ([facility]) 0.3 EOS # eCW1 ([facility]) ID Date Data Source [id number] 08/23/2020 03:45:18 PM EDT [facility] Name Value Range Interpretation Code Description Data Earnestine rce(s) Supporting Document(s) Progress Note [facility] [id number]/GHUdvKUBgh4CdVWrlTHv9NYirGYPdD9NsFVC7yY5hGWB4XAwXEtNtXjLoUQF2 lbm [file] [id number]= ID Date Data Source [id number] 08/07/2020 01:54:13 PM EDT [facility] Name Value Range Interpretation Code Description Data Earnestine rce(s) Supporting Document(s) Albumin [Mass/volume] in Serum or Plasma by Bromocresol green (BCG) dye binding method 3.9 g/dL 3.5-5.2 [facility] Bil[facility].total [Mass/volume] in Serum or Plasma 0.2 mg/dL <1.2 [facility] Calcium [Mass/volume] in Serum or Plasma 9.1 mg/dL 8.6-10.0 [facility] Chloride [Moles/volume] in Serum or Plasma 103 mmol/L 98-107 [facility] Creatinine [Mass/volume] in Serum or Plasma 1.98 mg/dL 0.50-0.90 H [facility] Glucose [Mass/volume] in Serum or Plasma 99 mg/dL 70-140 [facility] Alkaline phosphatase [Enzymatic activity/volume] in Serum or Plasma 414 U/L 35-104 H [facility] Potassium [Moles/volume] in Serum or Plasma 4.3 mmol/L 3.4-5.1 [facility] Protein [Mass/volume] in Serum or Plasma 6.9 g/dL 6.4-8.3 [facility] Sodium [Moles/volume] in Serum or Plasma 140 mmol/L 136-145 [facility] Aspartate aminotransferase [Enzymatic activity/volume] in Serum or Plasma 28 U/L <32 [facility] Urea nitrogen [Mass/volume] in Serum or Plasma 28 mg/dL 6-20 H [facility] Osmolality of Serum or Plasma by calculation 295 mosm/kg 275-300 [facility] Creatinine/Urea nitrogen [Mass Ratio] in Serum or Plasma 14 [facility] Bicarbonate [Moles/volume] in Serum 25 mmol/L 22-29 [facility] Alanine aminotransferase [Enzymatic activity/volume] in Seru m or Plasma 25 U/L <33 [facility] Anion gap 3 in Serum or Plasma 12 mmol/L 8-15 [facility] Glomerular filtration rate/1.73 sq M pre dicted among non-blacks [Volume Rate/Area] in Serum or Plasma by Creatinine-based formula (MDRD) 28 mL/min/1.73m2 >60 L [facility] Glomerular filtration rate/1.73 sq M pre dicted among blacks [Volume Rate/Area] in Serum or Plasma by Creatinine-based formula (MDRD) 32 mL/min/1.73m2 >60 L [facility] ID Date Data Source [id number] 08/07/2020 01:59:38 PM EDT [facility] Name Value Range Interpretation Code Description Data Earnestine rce(s) Supporting Document(s) Leukocytes [#/volume] in Blood by Automated count 3.7 10*3/uL 4-10 L [facility] Erythrocytes [#/volume] in Blood by Automated count 3.97 10*6/uL 4.1- 5.3 L [facility] Hemoglobin [Mass/volume] in Blood 11.0 g/dL 11.5-15.5 L [facility] Hematocrit [Volume Fraction] of Blood by Automated count 33.3 % 3 6-45 L [facility] Erythrocyte mean corpuscular volume [Entitic volume] by Auto mated count 83.8 fL 80-96 [facility] Erythrocyte mean corpuscular hemoglobin [Entitic mass] by Automated count 27.6 pg 27-33 [facility] Erythrocyte mean corpuscular hemoglobin concentration [Mass/volume] by Automated count 33.0 g/dL 32.0-36.0 [facility] E[facility]th[facility] distribution width [Ratio] by Automated count 15.9 % 11.5-14.5 H [facility] Platelets [#/volume] in Blood by Automated count 289 10*3/uL 150-400 [facility] Differential cell count method - Blood [facility] Neutrophils/100 leukocytes in Blood by Automated count 58 % [facility] Lymphocytes/100 leukocytes in Blood by Automated count 16 % [facility] Monocytes/100 leukocytes in Blood by Automated count 15 % [facility] Eosinophils/100 leukocytes in Blood by Automated count 9 % [facility] Basophils/100 leukocytes in Blood by Automated count 2 % [facility] Neutrophils [#/volume] in Blood by Automated count 2.15 10*3/uL 1.8-7 .0 [facility] Lymphocytes [#/volume] in Blood by Automated count 0.59 10*3/uL 1.2-4 .0 L [facility] Monocytes [#/volume] in Blood by Automated count 0.56 10*3/uL 0-0.8 [facility] Eosinophils [#/volume] in Blood by Automated count 0.33 10*3/uL 0-0.5 [facility] Basophils [#/volume] in Blood by Automated count 0.07 10*3/uL 0-0.2 [facility] Service comment [facility] Occasional larger platelet present ID Date Data Source [id number] 05/31/2020 12:13:09 PM EDT [facility] Name Value Range Interpretation Code Description Data Earnestine rce(s) Supporting Document(s) Progress Note [facility] [id number]/VLOtlHGCri3NzMJmeEEw0DVilJGJuQ0MhXNK7qC5tJQA3LWiWGhAbWnPySsAl lbm [file] [id number]== ID Date Data Source [id number] 05/31/2020 12:13:04 PM EDT [facility] Name Value Range Interpretation Code Description Data Earnestine rce(s) Supporting Document(s) Progress Note [facility] [id number]/DNVdyMCIsk4RhEXnaIGw5QNblVNRxS2GvXDX2eN1pNYC7YWoHXnEnMqZdWuDw lbm [file] pharmacy associate+vHUsIiUxRoKsV2czdQdcVjg1po86ko3srZ7qGtkhRASnlMuScml4CvhKFvV2v43Br4jM8MbFvbxS +Y1D4GTlqJaxfYBhEwCOuA5aRXgUx7lcMlLgC1TvVY 5DWm0D8s3GwLVQ3WjezLCyBlvwmsLqbOu6o56Pd1oLMqluqX/OK879uWXwpctKIHQDmK8lskgNlE7F8r c9d/DkbWwADepA4FBkdsDFz6bSfby0yZCJlk/PiRW63nUQ91unieiFepsfjl74cvCQKhfngeBRVaVaJR bnObfD5s80RWUPSjwgWJd9iTEtqGLy9klU6TDGhX2w FMUH1wWxfnjS3mI11+M0QcvVmlLo8kmGCmqEnVWa9fKSp1otw+Cbj0181pGHKC+dcnxMUigva522ngyi +uVmAymKe8nYDEWwGGLZfoGjvokXXniLmH8wWki5pUdZ4gmT6gQNjg7wLOh0eA246/RIKnu7kUFjMxpq FZ5MvzkBNeNL5oq846nyUxzxG4g8cPltaBKIymSdw/ 0pNd2Xf1V3vKdc5ZFVYc8lxvB/PFU4I+rO44WMD5NMa456AISaAqi+dbdWvNhyuAzDiBYIEuoB6BYTce QBAwYM+O6i1QNiAaU1SQHUBLAJVZHUDJBQN8j9X5HVXHCWPOquKLFDe2GXZTZZMWdkCHKCa1IETJMJZT idKVPEq0PXVIUPERwrXUVNu5QSUHZHFNvyRBFIj0GP [file] ICAgICAgICAgICAgICAgICAgICAgICAgICAgICAgIC PmXNVqHMRzGTSoEXPpANCtVYUgEYDdJJ6RRKCwOMAfLUKcVIPkHMAiQVIhBBOtEAKtICKcDINqKBLqEA AgICAgICAgICAgICAgICAgICAgICAgICAgICAgICAgICAgICAgICAgICAgICAgICAgICAgICAgICAgIC KaYQJnDO7PMLGlVJXjVVGpWFDkTPVrYCZrDNKyMDJp ICAgICAgICAgICAgICAgICAgICAgICAgICAgICAgICAgICAgICAgICAgICAgICAgICAgICAgICAgICAg ATAdNGAhGRWhMIWgOTRnQJ6IEOKnABMrHSOkKHQdRKOiSJQyRVZzJSBjPACbWICvXBXqIDUtZULpHMOf ICAgICAgICAgICAgICAgICAgICAgICAgICAgICAgIC RjNPVrTUTvMOLgBXKiZTGqYNOoAZXyHPRtWW1UERHfXEJrTOOmIQUuVLLmMNKtZYWnVTKoIQAiMVOrEG AgICAgICAgICAgICAgICAgICAgICAgICAgICAgICAgICAgICAgICAgICAgICAgICAgICAgICAgICAgIC HmLYWxRKGhNP0OIPXpBLVmRVAkWPGsDLBzZDHsCOFu ICAgICAgICAgICAgICAgICAgICAgICAgICAgICAgICAgICAgICAgICAgICAgICAgICAgICAgICAgICAg LMNhPSJcCXKdAIMaXAEwFRZxAI0OEZEhLZTaVGJhHQHdQCVjTNPiLKZlYKFuNMXqXBTwVTDuDLNyZZMf ICAgICAgICAgICAgICAgICAgICAgICAgICAgICAgIC XrDVDpGQAfMLJzBGSsGJAaTEQkFRPhAZSnUAWvXU9NFOBpXLCnLOMkQXZwCDFaAUPtLSGoRHSuDMIfVR AgICAgICAgICAgICAgICAgICAgICAgICAgICAgICAgICAgICAgICAgICAgICAgICAgICAgICAgICAgIC NyMANlFMEkNTWoZU0JSTCzFKWgXVIrVRWbDEXvSRKt ICAgICAgICAgICAgICAgICAgICAgICAgICAgICAgICAgICAgICAgICAgICAgICAgICAgICAgICAgICAg JPTiTILaZRYfXMMqMIQfDDIrCOHlUS6IPSJdGMOtJPNdUNAkXKPmMUZmZWAzGBVmVQXiZILwKDQrRVOv ICAgICAgICAgICAgICAgICAgICAgICAgICAgICAgIC RjVSDgQBEzXPIaYMBnTWOyXTRjUHJoOMAvCXGrLHJeYJ5XBY49cROrd7Y7UCDpXY8eabd/Av8QWVvtdz SjsRWsAK0FGeXpQF0mpg1XObMoOD4zci7VVRaVBoLdF9T1wWBxGLBdSQNAYzSqA32mOWgpWr36OIhpLA EbQwAyAGa8Xy2KKpRnO5apXEWjBdC4QXTnOjV2XVGl XwT8BZBwTqNeHSJlNWRgMRLyOGBOSCO8UKXuAqVnYiDpGWQwLE9EMHJyY192ggCyUf8GHb5FLmWlGB8a ke4XErxqAUYbKaqWHxg5BTvyDF7JfLZczPGuACOrOZJNMzViR2tsm1QfDskgYSAURGalJH1Cq0AivITb DQo+Ct2WCX5vx5DrAGqxPQUdNR8slx6ACLsJCdLxC6 EfrRkrUMZhp0dgAGTaFU9iyGBqIZP6RApjkqHeVN3xGOszcDlpSsTnPQUdNm6lBR0jPJIiTHLqDbV0UB YECK8ECHOgLIHtaPHzORQpKZOXSC3LQJxqIAB7PCFbknGysOAoHWwbFG8LTRHgfsCpSynrYXNODUe+Pg 0GRT6cd5QhHKf4SMCyIF4kar4MPEqHCaEoW7A5xNSx Q0O5VSahBv9UDCCjWWRoQjPjKEACRWzjQR0QPE3mbeL6MG0FnNGyBBLhWEVfhNEgFIh0D14eqAOxEHek EJ0YMYU+Chandrika+Rg3MJLLsCQYuRQThFaOyJHTLOwZoM2LfS5OVs1TyB7YtDR73qRowkxEfOHhjFA6XDA6y FSSjDRQJCW2MrZAljL8kbkMfSVPrOMBDEuZyA63phZ JdXIHzUFX1ADCiBd3DJHIqS7ZupeIelUeaobJkUSGnTFEHXX8MLLzllcUjzVYfjNeiQF22jMidZL0NNt 9QWjUaDE6gjz6LpSCgVj2CJNJ7SZ2GSVCuRGLlDOBlPOA7SQQePiLsWPiuSDLjKMTpWXS8MZElSABjFE 7IAdIhKWObKzW1GcOpTDTyDUUcij1ZIWVfSIT5HfY2 TKGwNYGaTUFiHHipMCKhXIPoPOT2YPXkNNGxWH8ELnQvQUJqLMP6BRVdLTRrNYYjpg3AHDXjLQAuGNM6 BnXyRTTdSKHeLQdjZUFgTWG0FxGoQZCzOORlXS0RLhPrJBBbIKj1EovyNNQhHQRlac2FIPPxHNOrINy9 KHZjGUNiKZFqICbqAZIxDDNxQEGeGJFtXVNcZP4CFc DpYISyIKSyVBEcBOTjNSQpfi6TYFLxLFRqZHH6McEeVEXbSAQsPJexAWHkGLH3Hnf8OCKmFNEsVG8UNt MrQONoZFf0MXFoQBGtDCHquh9INZVhJIKbMGU6JTJhRLZfRYBqNSvxBGXoJBT8COQ8KQVwFSGzLL3YCf TuEMWfMrU0BtIqVIYyIESktn5UJCBvYLCaTrC7TPRg UBChRXZuSQucKDFfUAUdYJBvGMOzXAFpRL1DPrBfGZRzOaGrBtosVHBeRKMyjb8UMFCmYEMbGgKgSEQi LZSnJETfBVsgWOGjQNF0YvrxXTAzCODyEU5LIqMkAVVbYqE6XQGgCMKsRISncx7CHVDaCOSoFIk9ZYEt FMFoWONdSAlwVXXsOAL8BxJfTMTwKFXpFQ4SKvVoRU BdPsY1QxHmASPfUVFood9YPSKtMTPuDdjpARNbGEOwGJOyEEvtPADiYRB3IXd6BRKrZGUiNI7HFkWdAI FrAaaePvMbTOJtWHLfqj4VHNGzIQRgARS9WBVyMYGbOTGeWHuhHKThYYU9EkMoJNIvTDNwQG4EBpHgYZ HoNnu1GSZuDQRsHLYqwo1DQOGnUAChGJn2OHCoZMIq AVOgZKmgFIXyPMJ9LDv1PKUzPMGhNB2ETkZiGITjCMT6CMKoCYBjSNGmit5GSIAyKZN8DNX4MYXkLQFu EBJePHckSFNlGIg1GCZaHXJyEVDoQY9FDoNrGPGdMyG2BEbcYOQbWSGlpm8CSYRrUJT2CiQ6EIPiGPLy VUYnQRacYBWwNOj2EkR2NNZkZEGaVW9RHaDfRCvsQV VLIvd2UImxG7k9LFD1BK4LN1Eug3AbWTUvBYRUUBekEH4eoeQcCLAgMl1SF9kJPot5BdQhSTUkJLPbIL P6ZtJuMUhsZXs6YWNkIND4ERLhID6ePXB8COCkXmThHLD6EZMuDeT5PYRfLUYiTHAmAOPdEyH7FiUiDE 0AVv0MLkV8MFM2vDMhRe4EMYd9ATuaZNnhAZJVNx8H ID Date Data Source [id number] 04/09/2020 01:34:00 PM EDT [facility] Name Value Range Interpretation Code Description Data Earnestine rce(s) Supporting Document(s) Protein [Presence] in Urine by Test strip Laboratory test result [facility] ([facility]) Ua Nitrite Laboratory test result [facility] ([facility]) Glucose [Presence] in Urine Laboratory test result [facility] ([facility]) Blood [Presence] in Urine by Visual Laboratory test result [facility] ([facility]) Ua Leuko Laboratory test result [facility] ([facility]) Color of Urine Laboratory test result [facility] ([facility]) Ketones [Presence] in Urine by Test strip Laboratory test result [facility] ([facility]) Clarity of Urine Laboratory test result [facility] ([facility]) pH of Urine by Test strip Laboratory test result 5.0-7.5 [facility] ([facility]) Bilirubin.total [Presence] in Urine by Test strip Laboratory test res ult [facility] ([facility]) Ua Specific [employer] Laboratory test result 1.003-1.030 [facility] ([facility]) Urobilinogen [Mass/volume] in Urine by Test strip Laboratory test result 0.0-1.0 [facility] ([facility]) ID Date Data Source [id number] 04/10/2020 10:11:15 AM EDT Laboratory [facility] [...] - CORE MPV 7.2 fL (7.1-10.7) [facility] - CORE NEUT % 68.4 % (35.0-75.0) [facility] LYMPH % 13.9 % (16.0-52.0) L [facility] - CORE MONO % 9.4 % (0.0-8.0) H [facility] - CORE EOS % 7.7 % (0.0-5.0) H [facility] - CORE BASO % 0.6 % (0.0-4.0) [facility] - CORE NEUT # 4.0 10*3/uL (1.8-7.7) [facility] - CORE LYMPH # 0.8 10*3/uL (1.2-4.8) L [facility] - CORE MONO # 0.6 10*3/uL (0.0-0.8) [facility] Eosinophils [#/volume] in Blood by Automated count 0.5 10*3/uL (0.0-0 .5) [facility] - CORE BASO # 0.0 10*3/uL (0.0-0.2) [facility] ID Date Data Source [id number] 04/10/2020 10:11:15 AM EDT [facility] Name Value Range Interpretation Code Description Data Earnestine rce(s) Supporting Document(s) SODIUM 139 mmol/L (136-145) [facility] POTASSIUM 4.6 mmol/L (3.6-5.2) [facility] CHLORIDE 106 mmol/L (100-108) [facility] - [facility] CO2 25 mmol/L (22-31) [facility] - [facility] ANION GAP 8 mmol/L (7-16) [facility] - [facility] UREA NITROGEN 31 mg/dL (7-24) H [facility] - [facility] CREATININE 1.45 mg/dL (0.60-1.00) H [facility] QA FLAGS AND/OR RANGES MODIFIED BY DEMOG RAPHIC UPDATE ON 04/10 AT 1010 BUN/CREAT RATIO 21.4 RATIO (10.0-20.0) H [facility] - CORE GLUCOSE 78 mg/dL (70-99) [facility] - C[facility] CALCIUM 8.5 mg/dL (8.4-10.2) [facility] - [facility] TOTAL PROTEIN 6.6 g/dL (6.4-8.2) [facility] ALBUMIN 3.3 g/dL (3.5-4.6) L [facility] - CORE GLOBULIN 3.3 g/dL (2.7-4.3) [facility] - CORE ALB/GLOB RATIO 1.0 RATIO [facility] ALKALINE PHOSPHATASE 408 U/L (45-117) H [facility] - [facility] BILIRUBIN,TOTAL 0.3 mg/dL (0.0-1.0) [facility] PLEASE NOTE:Total bilirubin results may be falselyelevated in patients taking Eltrombopag. AST (SGOT) 13 U/L (11-39) [facility] - [facility] ALT (SGPT) 23 U/L (12-78) [facility] - C[facility] GFR 51 ml/min/1.73m2 (>59) L [facility] - CORE GFR ( AMER) >60 ml/min/1.73m2 (>59) [facility] - CORE GFR INTERPRETATION [facility] - CORE --NORMAL KIDNEY FUNCTION OR MILD DISEASE - GFR >OR= 60CHRONIC KIDNEY DISEASE - GFR 15 - 59RENAL FAILURE - GFR <15 Est. GFR calculation based on the MDRDstudy equation, which assumes a steadystate for creatinine. Est. GFR should notbe used for medication dosing. ID Date Data Source [id number] 04/09/2020 01:12:00 PM EDT [facility] ([facility] Name Value Range Interpretation Code Description Data Earnestine rce(s) Supporting Document(s) Protein [Presence] in Urine by Test strip Laboratory test result [facility] ([facility]) Glucose [Presence] in Urine Laboratory test result [facility] ([facility]) Ua Nitrite Laboratory test result [facility] ([facility]) Ua Leuko Laboratory test result [facility] ([facility]) Color of Urine Laboratory test result [facility] ([facility]) Blood [Presence] in Urine by Visual Laboratory test result [facility] ([facility]) Ua Specific [employer] Laboratory test result 1.003-1.030 [facility] ([facility]) Ketones [Presence] in Urine by Test strip Laboratory test result [facility] ([facility]) Clarity of Urine Laboratory test result [facility] ([facility]) Bilirubin.total [Presence] in Urine by Test strip Laboratory test res ult [facility] ([facility]) pH of Urine by Test strip Laboratory test result 5.0-7.5 [facility] ([facility]) Urobilinogen [Mass/volume] in Urine by Test strip Laboratory test result 0.0-1.0 [facility] ([facility]) ID Date Data Source [id number] 03/13/2020 02:41:40 PM EDT [facility] Name Value Range Interpretation Code Description Data Earnestine rce(s) Supporting Document(s) Progress Note [facility] WDLECr7aMoJZJtTn27/XVDclLRRtj0NvBNnlTPu6AVdxQSTsL5QxOOE1tK9mONT1GEjJTiZhEkKcHOG4 lbm [file] WsQTJmRFQfDLS7LWOqOpU+FR6bNXa+Hd8Xm8UmrfO3teGaZLqtGUYjLj4VHNMJQ4MHFf== ID Date Data Source [id number] 03/13/2020 10:25:40 AM EDT [facility] Name Value Range Interpretation Code Description Data Earnestine rce(s) Supporting Document(s) Progress Note [facility] YSPGWi9nRlYPMzFx01/ZGKglSSTwa5LsNTowVXl6WCmkOCMtC6WgUAX3bH5vVPX2DBxJMpAnKjUyEDU2 lbm [file] AgICAgICAgICAgICAgICAgICAgICAgICAgICAgICAgICAgICAgICAgICAgICAgICAgICAgICAgICAgIC AgICAgICAgICAgICAgICANCiAgICAgICAgICAgICAg ICAgICAgICAgICAgICAgICAgICAgICAgICAgICAgICAgICAgICAgICAgICAgICAgICAgICAgICAgICAg ICAgICAgICAgICAgICAgICAgICAgICAgICANCiAgICAgICAgICAgICAgICAgICAgICAgICAgICAgICAg ICAgICAgICAgICAgICAgICAgICAgICAgICAgICAgIC AgICAgICAgICAgICAgICAgICAgICAgICAgICAgICAgICAgICANCiAgICAgICAgICAgICAgICAgICAgIC AgICAgICAgICAgICAgICAgICAgICAgICAgICAgICAgICAgICAgICAgICAgICAgICAgICAgICAgICAgIC AgICAgICAgICAgICAgICAgICANCiAgICAgICAgICAg ICAgICAgICAgICAgICAgICAgICAgICAgICAgICAgICAgICAgICAgICAgICAgICAgICAgICAgICAgICAg ICAgICAgICAgICAgICAgICAgICAgICAgICAgICANCiAgICAgICAgICAgICAgICAgICAgICAgICAgICAg ICAgICAgICAgICAgICAgICAgICAgICAgICAgICAgIC AgICAgICAgICAgICAgICAgICAgICAgICAgICAgICAgICAgICAgICANCiAgICAgICAgICAgICAgICAgIC AgICAgICAgICAgICAgICAgICAgICAgICAgICAgICAgICAgICAgICAgICAgICAgICAgICAgICAgICAgIC AgICAgICAgICAgICAgICAgICAgICANCiAgICAgICAg ICAgICAgICAgICAgICAgICAgICAgICAgICAgICAgICAgICAgICAgICAgICAgICAgICAgICAgICAgICAg ICAgICAgICAgICAgICAgICAgICAgICAgICAgICAgICANCiAgICAgICAgICAgICAgICAgICAgICAgICAg ICAgICAgICAgICAgICAgICAgICAgICAgICAgICAgIC AgICAgICAgICAgICAgICAgICAgICAgICAgICAgICAgICAgICAgICAgICANCiAgICAgICAgICAgICAgIC AgICAgICAgICAgICAgICAgICAgICAgICAgICAgICAgICAgICAgICAgICAgICAgICAgICAgICAgICAgIC AgICAgICAgICAgICAgICAgICAgICAgICANCjw/eHBh I0astEYokzW1L9kxAc9AYw6MQS3xf1SfCCUtJDrndbWaQxgJJvEeAEQkXseHXpx3XKwrXV7HqWXhW3Cn F4ZeVIuiHX4DKZTsZCTunSPyVLOhQEMdGzM4HBDsAHjwNO7CaCUiXWllSOKdFXJpLsXgZMVrZNOaWOIj RUIiAGNILAGuSZSiTqQeRTFxVEQePJ9MMBDxG393qg GtLv4IPm2EEqOlUP7srq3DGqDgYWUdJsgGHfl4VAueSH3IzYMdbSYoHzVdVFIVTvTwZ8qcc0WwQgRvLK NXQSngWR4Gz8UvhPKhGAf+Bn9PGL3tm3KpOVajSzDaSD0qbj7JKKrNZwOvU3YrgAcuIBMua4nwSMMpDG 5mrYQrYRW2KNAnqQJsnJSMYYhmDYlnVYAqAKGiUO0m BQ1pLLTxZPU1SiM9SBWAJN6HVDFrSKJhjGPjXOPjSIHOIB4JAGduILJ0ZZGvgaNjdOIyLUirQS2WXZMp bnQgMzIgMCBSDQo+Vj7UPJ2xf9OwKSgwESUrIP1cmp3PENmOOnWpH6X8qEIzL2I2CEbnSr6TKUXxYPKh MnCxBXMIGZkjID7UOE6fpoI8QG2BtVLqWVHlDXMyjA BtMMz2U63amXNhESeaKX4OVOX+Chandrika+Js6JBRZnALGaDPWiNaAdZHOSRfMyB2WwW0JTe6IiZ5QfVR45bP snxwGaXVepIX4ZER0aPXWwEWQDSK5KsGNjdK6jqxRsXdKjDRDXWbCpF19xiWOeLXQvKBJeAOWyMe6EXW UvU8VlwnIqaKoljpFfFGZwUFUPHZ5TTFfhxuJelHXw lAmeLV67nMpkIU4MNe8STyWxEW2hzb6VmVEdTh9VLUHzLL7RTVLhVOQyZRNwXHY6JDLpBqVfEJniDKWd HQImQPC2KORlQBLiPU9AHfNqPDAwXWT9UBluNLLjRFImub8ODIKbMDV5XjW8LFKpVMKbCBDtEOzzFPXz EQMyMGM1RTEqKKYxUY0YYtHkNLKfFLP9VgCzMIRrGA Dkzd7KLTGqAHDaBCbtGxZjGINtBIVdCArpTWOrGBA7QnW6WUFgRGMrWF3UTtWjLBLaHZe8LkMdNDCwBJ Nkaz8DYRQkOKBqNJR7BiErVGNaNHCcLEafITMzQXVeKYe7BMMyIXRlEV4PShLgEDLtSQP3DhSzZJUqJI Vryv6ATSPsZWAxIJD0DxLzQFOfJAJbIOlkSEZwUJG0 QWO0TJAqIOYdFY7VMsWeXZHxRSd1QBUtIRAmOYPdib8GVODcAKCqHwpfGaOwYYDiCKSdYKsdULNiMMR5 OHD3KOHgRFOaMT1YYcWaMRCdXyY7XDzhTDLxZVFpxp0QKGSaNZIsDIU7LDSiMTWsXGGgOLdiOSDwVFN6 Emz7CFNoWHFvIA3QEaRyJAMtChSzBiapQYPrGGAgza 4EUTMfROXjDgEeEAEoQTZoEFTbFKjhYEVaDKO1EcR0XQAfDHOjDX3GOuXdEQYjSoupTRfqPMAcIYWkwb 7UYKToZYDfYNP7VqPlZXCgLOCoFAywDNPxKZG0SgnqSWTiBHJfSH0IWgDdMYKhAxx2APSrIBPeVPTnwb 9IRBWmORMiVNR3TgGlTTQuEDXkGEafCYOpWGGnPMCp FLZyMOMwLE5FRtXkCPSrBMGyLYccPCDrCYUefz5WLOZzDDF2XCM9YtOiSJHzLTTvSRbcKMBnXRWpAVK4 SWGkOUUrFM2ZXiCfWEHkLTWkGVWpYHRxBTHjbh7HFKQwQDQ2WvI4TwLoQCNxJQXrLMvgLUSsRMJjOTCq ENWaLGOpWA1FIsWoXAxrXCNWHef1UBzeH9t7VDEnLH 7SY3Fbv0EfZpLgIBOZSOtwXC1ogjZkBXYoJw6OD5fSVpg5A8DyYHsnBNR8IWU8LEOmCDJaLurrLFMgWn VoISGeKH4nDUElWnY9BJY0JSh6TkvjMDW6MGPbEVDtYnMcQIZ0TNR9RiAzJL0QLb1ILaO9FIX6pLLwCv 2LJXB6QLpSGhAnLV0TUBr= ID Date Data Source [id number] 03/13/2020 10:14:42 AM EDT [facility] Name Value Range Interpretation Code Description Data Earnestine rce(s) Supporting Document(s) Leukocytes [#/volume] in Blood by Automated count 9.8 10*3/uL 4-10 [facility] Erythrocytes [#/volume] in Blood by Automated count 4.44 10*6/uL 4.1- 5.3 [facility] Hemoglobin [Mass/volume] in Blood 11.5 g/dL 11.5-15.5 [facility] Hematocrit [Volume Fraction] of Blood by Automated count 33.9 % 3 6-45 L [facility] Erythrocyte mean corpuscular volume [Entitic volume] by Auto mated count 76.4 fL 80-96 L [facility] Erythrocyte mean corpuscular hemoglobin [Entitic mass] by Automated count 25.8 pg 27-33 L [facility] Erythrocyte mean corpuscular hemoglobin concentration [Mass/volume] by Automated [facility] 33.8 g/dL [facility].0[facility] width [Ratio] by Automated count 20.6 % 11.5-14.5 H [facility] Platelets [#/volume] in Blood by Automated count 278 10*3/uL 150-400 [facility] Differential cell count method - Blood [facility] Neutrophils/100 leukocytes in Blood by Automated count 86 % [facility] Lymphocytes/100 leukocytes in Blood by Automated count 5 % [facility] Monocytes/100 leukocytes in Blood by Automated count 5 % [facility] Eosinophils/100 leukocytes in Blood by Automated count 2 % [facility] Basophils/100 leukocytes in Blood by Automated count 2 % [facility] Neutrophils [#/volume] in Blood by Automated count 8.43 10*3/uL 1.8-7 .0 H [facility] Lymphocytes [#/volume] in Blood by Automated count 0.49 10*3/uL 1.2-4 .0 L [facility] Monocytes [#/volume] in Blood by Automated count 0.49 10*3/uL 0-0.8 [facility] Eosinophils [#/volume] in Blood by Automated count 0.20 10*3/uL 0-0.5 [facility] Basophils [#/volume] in Blood by Automated count 0.20 10*3/uL 0-0.2 [facility] ID Date Data Source [id number] 03/13/2020 10:16:18 AM EDT [facility] Name Value Range Interpretation Code Description Data Earnestine rce(s) Supporting Document(s) Albumin [Mass/volume] in Serum or Plasma by Bromocresol green (BCG) dye binding method 4.2 g/dL 3.5[facility]5.2 [facility] Bil[facility].total [Mass/volume] in Serum or Plasma 0.2 mg/dL <1.2 [facility] Calcium [Mass/volume] in Serum or Plasma 9.4 mg/dL 8.6-10.0 [facility] Chloride [Moles/volume] in Serum or Plasma 100 mmol/L 98-107 [facility] Creatinine [Mass/volume] in Serum or Plasma 1.42 mg/dL 0.50-0.90 H [facility] Glucose [Mass/volume] in Serum or Plasma 135 mg/dL 70-140 [facility] Alkaline phosphatase [Enzymatic activity/volume] in Serum or Plasma 320 U/L 35-104 H [facility] Potassium [Moles/volume] in Serum or Plasma 4.0 mmol/L 3.4-5.1 [facility] Protein [Mass/volume] in Serum or Plasma 7.0 g/dL 6.4-8.3 [facility] Sodium [Moles/volume] in Serum or Plasma 139 mmol/L 136-145 [facility] Aspartate aminotransferase [Enzymatic activity/volume] in Serum or Plasma 12 U/L <32 [facility] Urea nitrogen [Mass/volume] in Serum or Plasma 28 mg/dL 6-20 H [facility] Osmolality of Serum or Plasma by calculation 295 mosm/kg 275-300 [facility] Creatinine/Urea nitrogen [Mass Ratio] in Serum or Plasma 20 [facility] Bicarbonate [Moles/volume] in Serum 24 mmol/L 22-29 [facility] Alanine aminotransferase [Enzymatic activity/volume] in Seru m or Plasma 11 U/L <33 [facility] Anion gap 3 in Serum or Plasma 15 mmol/L 8-15 [facility] Albumin/Globulin [Mass Ratio] in Serum or Plasma 1.5 [facility] Glomerular filtration rate/1.73 sq M pre dicted among non-blacks [Volume Rate/Area] in Serum or Plasma by Creatinine-based formula (MDRD) 42 mL/min/1.73m2 >60 L [facility] Glomerular filtration rate/1.73 sq M pre dicted among blacks [Volume Rate/Area] in Serum or Plasma by Creatinine-based formula (MDRD) 48 mL/min/1.73m2 >60 L [facility] ID Date Data Source [id number] 02/05/2020 02:24:11 PM EDT [facility] Name Value Range Interpretation Code Description Data Earnestine rce(s) Supporting Document(s) Progress Note [facility] KYKMTb7oXoBSVcLi03/WADytSLSgh6NgHNbsDJg4CAeqDDFpH1SfUBH3oC3uDNS5DZwXKhMeJwKaHkB0 lbm [file] +fde/m2ZC7e22E6J17OB2i+UrE9ByGRfzbiV61M37DbNh9z9rKVeB6yffWk3yJTHF95cOIsfORlLc/José Miguel [file] [id number]= ID Date Data Source [id number] 02/05/2020 02:24:06 PM EDT [facility] Name Value Range Interpretation Code Description Data Earnestine rce(s) Supporting Document(s) Progress Note [facility] GDBKGa2zBoVTXyHx79/GJEpbSLPgg2NbWQbqYMy8IFtiYXChH3AmEQW6wG9nQLS0YAxDReIvVvUsYzW7 lbm CdVjhNDoArIREwYfxSNmNcMJgcDvpslGQuYE1SaQA7HWDxK51sUECcXYZmS2YyUTKbYmY+Pb8HSMFimZ HvXY8UPlcJ1M0fp2fYVn5ijQ/YyuLMH8Ljuiy2opVEK8Cz1YZpgSXL53JDlvHGWWxvIbWrg9812F2yJm 59Qu5T29OgtiJE2Fmt7wA2h4c10k/mIAocxzHFv/Wf ZDLOybG130/P7xPSxt/b/RzvCe1UA0ja0uS1F9/9/QwqN0cNB53UjXebd/cxhRtJ1qkMuYPsy408sP6d /4Wrm9kw9A0a8BStjdvUpizb1/nr8sR6YmRMGD9cvNk/eKMb0AYryXk9pu4YJQzKl5TTIa1ApIUuGc+2 N8o8h6Z6Pd39ii4id66XgLK0ngP0X4isO5dq17u2bz [file] ICAgICAgICAgICAgICAgICAgICAgICAgICAgICAgICAgICAgICAgICAgICAgICAgICAgICAgICAgICAg MBQuUWMgDTGzGTEbTUBwDZApYUFySOMgJYZiMVHbDYDrVKKnOJNrXU0MAQQnANErTZLsRGUgUYOtAKJd ICAgICAgICAgICAgICAgICAgICAgICAgICAgICAgIC EvPLXwSGRqSSQsCTAcPMPuRVMbKFXiEZBhIXPrMAEiCEWiVWQoZQJbJJVmJIUjJBYxVY3JUQSfWXCfEC AgICAgICAgICAgICAgICAgICAgICAgICAgICAgICAgICAgICAgICAgICAgICAgICAgICAgICAgICAgIC AgICAgICAgICAgICAgICAgICAgICAgICAgICAgICAg HK5BHPFaLKKgRRNmCILyHLLiBBYrJEHuGGEsPHPtDSMaFMCzJIDqJNFvWDSvYPRzMKFsHOXeMNJmMBAg XAYvZYXoNLRcPJJgREBsSPAbVHGzBBMpBPVuBDEcWRQxQNJzZZGzMKRaSF3EAUThDKUfEAYaOJAaSQEo ICAgICAgICAgICAgICAgICAgICAgICAgICAgICAgIC IeDBFqHYRmPRAtZUZeQBYyLXCkOIZnMRLxNCUwKRQcOANbEEHwHQTkMXBpPELvZLIjSSIiMP5OMWSfYV AgICAgICAgICAgICAgICAgICAgICAgICAgICAgICAgICAgICAgICAgICAgICAgICAgICAgICAgICAgIC AgICAgICAgICAgICAgICAgICAgICAgICAgICAgICAg DQRqLR6QVZUrALHaOXJjJNZrWQLnSVUiORStXXBkLQGkIAUwWFVwVHOfVINdAKNbIBIhUROnCIMuKGHo PRYjCVTwXYNmVEDrBUCaMAEgTFWqNXBtYZNkJTAqOFSrXHVfBSCcCPPuTSVmRW3KJYUjKTFlHWRxFUDa ICAgICAgICAgICAgICAgICAgICAgICAgICAgICAgIC FiSKIkQSWeJNUmGWNlYYLzMJGtTWGkKAPiBNXrATVuZVLyPOTaOMCcNNJmUQPeBQRbHSIrGSGjPT6VHH AgICAgICAgICAgICAgICAgICAgICAgICAgICAgICAgICAgICAgICAgICAgICAgICAgICAgICAgICAgIC AgICAgICAgICAgICAgICAgICAgICAgICAgICAgICAg ZTBcORZpBC3YNZUfVFJdYFEsMACrPAClZQWcMXLkHQAtQHCeGRApTHXpGSRsQLMlOOKfVAQzHZYvOUJg PCAlPXHwJDFkBXUhABOxECAlLJViKBGtDJQzYWXdIAChFNQgQOReMCTxRZZlJRVnYG1QLP06kJMgb9J5 MBAeDH3vmet/Cu1NNWrtqwZnqJIoMS1XTpVgJA6vwk 8JXrBaZH9thu2XIJiJHnClW5C9cTXgMVBgXYGKViCnA23kSRquVm33NLzmNORzZqKcFPl4Cy5WJjVgY8 lgKHShYpS7TGKnAbL4QWRsLxG7XNAxZjFdFANaIEEeQDFpFWLDFVU6GDKxEeUgMzYaWPVoNT9TUYTdW5 26cxLgHi3MUx9ZEzXrMO9fka0NHjGfYOSmGgkSKnv7 YSzsMN3DrPIwaEMnYRIjYOMOAoFoW7qtf7RmAfDlIPGHYFajDA2Rs7EmrGNtVWp+Kz9JBF4xb3FmZDls CYOdQU9sgg9CRKnONeSsC1FzxYgrFBMwq8diEFHvCO0efVQmWUV4YNg3n9CamxFhMMQAbXP9lm4fpnrg BiPtCTJhDl9oNo0uDNBjJYHwVeWdSHMXPF9EVXPeNQ XpcFWvGBSdMCHCAT1QKRliWLO5IEVqcgHinOBoKQqjAP4OCVElocLgMlVrUPNEDXl+Au5MKD8jd9EzXM wcMuSeKC1ltj1ZBQtDTiSuF7R0cQBbD6C5XTenMf1FMQBfZKFcYtQyANRMFRknUD4RPI1dzpM0WH0KdW TkBWRvGELdvTSyJOa3A77yyVQsPDtuVA8KUMW+Chandrika+ Th6APITgZIFkGCZuPnKxJACVLdLoN6KwZ3WTa1GsH1CrAB99yUhyqxToECccLS1OJN7iFENhAMQJVD8J jOOfiK6ryeRqJSDmNDWPVxLwJ53gmFXiPNObOUWtXAOuNr2XNDEhH3FrghYpmXzixdGpAFGfZDTAHP4W YYmzchUumZQprAupZE36aLooFP8KVe6YUgHpQU1iif 2YvKWhRv4TNOGlFp0LRDLhCNFsTGXmVUM1TQAsCsRzYPrrCARgJTFcDHT6MGRwYOFtNT3JXiXmPQFdAK IpURLlMQIvMDGbru9QISZyMVC1DXK5TZZpFHTuVXDbXPbuWEBxFNJkOIP1VMEiKAZdGH9AFoWhUSIyFJ NpOLpnMREmFQCpzd4SZWKaWKKuAXAmVwRtXKByBJHz EOvaCSRuVMQ2ZZM2GAKlSCLkBZ0UZtAeJSBpSXkvAVisWALnWMLzps9XTJAmGSAbHyL1YzUyPCRmPTQy EJycKWQaUAAsCeqzPHEbMBPnNU0COnFxRXYmGVAnFVZvDDExBJKocc4WIPHxGELuKbUvDERvNQMqNNRy NIwuGDDaSJRmYTQ5DKWwNZDjCL2QWtCrHNKmHdJ4To KzDXAaYNJgng9HRNZcWQZvZNq2IbBmXFWjLUHhXNqsEWNnPTT9COE9BGTrAFWzTO6KSsOvZBLpOqG3Xq FwSNFtVGBnsn0ROPTxTRLxCUj2BpKqNTJaDHDqPBinYQTqDCQ4INDeRIJtRJSeHY0LCxYlLVZuTejtHi tmHYMyZOBwzv2OCXZlRIBdElTlOjBsXDWzSUEcWNfy VXYsQSM2QqqmODFiFXPtWV6NXcRkAENpSzi7NcDiIBPlKZTqve1VIHOkYYKyWGI6WIUgDYZlPTXsJYpb OIKcKOVzHHobKTAfKDOhYP5JLoCqUNXlSYY1XWIbUTZiNHGmmv2UKJFuVON5CGJeVZXaACHpLXEiXRdb UMVvZJMfKZn3CHRlGERzBN9RGfBoZQWuATCaRqGkJS OaUCAnzi7YWYDiMSA6GTo1ZXFmYEAfZYCjDCknETArTXOiJRCyAZEwFASnDU8XZyDiOYOgCDOrErPxEC VfYALlxz5DKEJlUHI0Ldy8VFOnYNJaYXTsLTidRTCxROR7SnY9LKFtBVTuND2FKbWnIRGkNLEfBYlrRV JgJWVbmo6ESELtYYU3QNE1SMVaHIHkZIYzUIm4pgOl wLBtHGz1CZ7FA2OeohSpEqfEBe3Qa757UIA2LPFfZs1IK5eqUa3vSZMjEVCOZp1EYUq4SzQoALE0FxDj ESYvCCTtYFYqQKjhVlY8WCJ5XoD8ABT+IZzaLUJaWmGmUnC9YNHmKoB6ALIcIKU2BpbmTXonMpysMy6u XSANCj4+LSmvnLXncIkmVAADVjB6Qva1RYrsBACISj7X Procedure Social History Code Duration Value Status Description Data Source(s ) Smoking 10/11/2020 12:00:00 AM EST Former Cigarette Smok er 2 Packs Daily completed Former Cigarette Smoker 2 Packs Daily [facility] ([facility]) Smoking 09/27/2020 12:00:00 AM EDT Former Smoker completed Former Smoker eCW1 ([facility]) Smoking 09/27/2020 12:00:00 AM EDT Former Smoker completed Former Smoker eCW1 ([facility]) Smoking 09/27/2020 12:00:00 AM EDT Former Smoker completed Former Smoker eCW1 ([facility]) Smoking 09/27/2020 12:00:00 AM EDT Former Smoker completed Former Smoker eCW1 ([facility]) Alcohol intake 08/07/2020 12:00:00 AM EDT Lifetime non-drinker (finding) completed Lifetime non-drinker (finding) [facility] Tobacco use and exposure 08/07/2020 12:00:00 AM EDT Never used co mpleted Never used [facility] Cigarette pack-years 08/07/2020 12:00:00 AM EDT UNK completed [facility] Cigarettes smoked current (pack per day) - Reported 08/07/20 12:00:00 AM EDT UNK completed [facility] Smoking 08/07/2020 12:00:00 AM EDT Former smoker completed Former smoker [facility] Smoking 06/18/2020 12:00:00 AM EDT Former Smoker completed Former Smoker eCW1 ([facility]) Smoking 06/18/2020 12:00:00 AM EDT Former Smoker completed Former Smoker eCW1 ([facility]) Smoking 06/18/2020 12:00:00 AM EDT Former Smoker completed Former Smoker eCW1 ([facility]) Smoking 06/18/2020 12:00:00 AM EDT Former Smoker completed Former Smoker eCW1 ([facility]) Smoking 06/18/2020 12:00:00 AM EDT Former Smoker completed Former Smoker eCW1 ([facility]) Smoking 06/18/2020 12:00:00 AM EDT Former Smoker completed Former Smoker eCW1 ([facility]) Smoking 06/18/2020 12:00:00 AM EDT Former Smoker completed Former Smoker eCW1 ([facility]) Smoking 06/18/2020 12:00:00 AM EDT Former Smoker completed Former Smoker eCW1 ([facility]) Alcohol intake 05/31/2020 12:00:00 AM EDT Lifetime non-drinker (finding) completed Lifetime non-drinker (finding) [facility] Cigarette pack-years 05/31/2020 12:00:00 AM EDT UNK [facility] Cigarettes smoked current (pack per day) - Reported 05/31/20 20 12:00:00 AM EDT UNK completed [facility] Smoking 05/31/2020 12:00:00 AM EDT Former smoker completed Former smoker [facility] Smoking 04/25/2020 12:00:00 AM EDT Former Smoker completed Former Smoker eCW1 ([facility]) Smoking 04/25/2020 12:00:00 AM EDT Former Smoker completed Former Smoker eCW1 ([facility]) Smoking 04/25/2020 12:00:00 AM EDT Former Smoker completed Former Smoker eCW1 ([facility]) Smoking 04/25/2020 12:00:00 AM EDT Former Smoker completed Former Smoker eCW1 ([facility]) Alcohol intake 03/13/2020 12:00:00 AM EDT Lifetime non-drinker (finding) completed Lifetime non-drinker (finding) [facility] Cigarette pack-years 03/13/2020 12:00:00 AM EDT UNK completed [facility] Cigarettes smoked current (pack per day) - Reported 03/13/20 12:00:00 AM EDT UNK completed [facility] Smoking 03/13/2020 12:00:00 AM EDT Former smoker completed Former smoker [facility] Alcohol intake 02/05/2020 12:00:00 AM EDT Lifetime non-drinker (finding) completed Lifetime non-drinker (finding) [facility] Cigarette pack-years 02/05/2020 12:00:00 AM EDT UNK [facility] Cigarettes smoked current (pack per day) - Reported 02/05/20 12:00:00 AM EDT UNK completed [facility] Smoking 02/05/2020 12:00:00 AM EDT Former smoker completed Former smoker [facility] Vital Signs ID Date Data Source UNK Name Value Range Interpretation Code Description Data Source(s) Heart rate 98 /min 98 /min [facility] ([facility] [place] Diastolic blood pressure 83 mm[Hg] 83 mm[Hg] [facility] ([facility] [place]) Systolic blood pressure 120 mm[Hg] 120 mm[Hg] M [facility] ([facility] [place]) Body mass index (BMI) [Ratio] 42.0 kg/m2 42.0 k g/m2 [facility] ([facility] [place] Body weight 102.514 kg 102.514 kg [facility] ([facility] [place] Body weight 226.00 [lb_av] 226.00 [lb_av] MEDEN T ([facility] [place]) Body height 61.5 [in_i] 61.5 [in_i] [facility] ([facility] [place] 5'1.50" Diastolic blood pressure 62 mm[Hg] 62 mm[Hg] eCW1 ([facility]) Systolic blood pressure 112 mm[Hg] 112 mm[Hg] e CW1 ([facility]) Body temperature 97.9 [degF] 97.9 [degF] eCW1 ( [facility]) Respiratory rate 18 /min 18 /min eCW1 ([facility]) Heart rate 121 /min 121 /min eCW1 ([facility]) Body mass index (BMI) [Ratio] 42.19 kg/m2 42.19 kg/m2 eCW1 ([facility]) Body height [in_i] eCW1 ([facility]) Body weight 227 [lb_av] 227 [lb_av] eCW1 ([facility]) Diastolic blood pressure 64 mm[Hg] 64 mm[Hg] eCW1 ([facility]) Systolic blood pressure 122 mm[Hg] 122 mm[Hg] e CW1 ([facility]) Body temperature 96.9 [degF] 96.9 [degF] eCW1 ( [facility]) Respiratory rate 18 /min 18 /min eCW1 ([facility]) Heart rate 127 /min 127 /min eCW1 ([facility]) Body mass index (BMI) [Ratio] 42.01 kg/m2 42.01 kg/m2 eCW1 ([facility]) Body height [in_i] eCW1 ([facility]) Body weight 226 [lb_av] 226 [lb_av] eCW1 ([facility]) Diastolic blood pressure 60 mm[Hg] 60 mm[Hg] eCW1 ([facility]) Systolic blood pressure 92 mm[Hg] 92 mm[Hg] e CW1 ([facility]) Body temperature 97.9 [degF] 97.9 [degF] eCW1 ( [facility]) Respiratory rate 18 /min 18 /min eCW1 ([facility]) Heart rate 106 /min 106 /min eCW1 ([facility]) Body mass index (BMI) [Ratio] 41.26 kg/m2 41.26 kg/m2 eCW1 ([facility]) Body height [in_i] eCW1 ([facility]) Body weight 222 [lb_av] 222 [lb_av] eCW1 ([facility]) Diastolic blood pressure 74 mm[Hg] 74 mm[Hg] eCW1 ([facility]) Systolic blood pressure 120 mm[Hg] 120 mm[Hg] e CW1 ([facility]) Body temperature 95.6 [degF] 95.6 [degF] eCW1 ( [facility]) Respiratory rate 20 /min 20 /min eCW1 ([facility]) Heart rate 116 /min 116 /min eCW1 ([facility]) Body mass index (BMI) [Ratio] 40.48 kg/m2 40.48 kg/m2 eCW1 ([facility]) Body height [in_us] eCW1 ([facility]) Body weight Measured 217.8 [lb_av] 217.8 [lb_av ] eCW1 ([facility]) Diastolic blood pressure 78 mm[Hg] 78 mm[Hg] eCW1 ([facility]) Systolic blood pressure 116 mm[Hg] 116 mm[Hg] e CW1 ([facility]) Body temperature 97.7 [degF] 97.7 [degF] eCW1 ( [facility]) Respiratory rate 20 /min 20 /min eCW1 ([facility]) Heart rate 103 /min 103 /min eCW1 ([facility]) Body mass index (BMI) [Ratio] 42.56 kg/m2 42.56 kg/m2 eCW1 ([facility]) Body height [in_us] eCW1 ([facility]) Body weight Measured 229 [lb_av] 229 [lb_av] eC W1 ([facility]) Diastolic blood pressure 68 mm[Hg] 68 mm[Hg] eCW1 ([facility]) Systolic blood pressure 118 mm[Hg] 118 mm[Hg] e CW1 ([facility]) Body temperature 97.8 [degF] 97.8 [degF] eCW1 ( [facility]) Respiratory rate 20 /min 20 /min eCW1 ([facility]) Heart rate 98 /min 98 /min eCW1 ([facility]) Body mass index (BMI) [Ratio] 42.56 kg/m2 42.56 kg/m2 eCW1 ([facility]) Body height [in_us] eCW1 ([facility]) Body weight Measured 229 [lb_av] 229 [lb_av] eC W1 ([facility]) Diastolic blood pressure 72 mm[Hg] 72 mm[Hg] eCW1 ([facility]) Systolic blood pressure 122 mm[Hg] 122 mm[Hg] e CW1 ([facility]) Body temperature 98.4 [degF] 98.4 [degF] eCW1 ( [facility]) Respiratory rate 20 /min 20 /min eCW1 ([facility]) Heart rate 107 /min 107 /min eCW1 ([facility]) Body mass index (BMI) [Ratio] 40.89 kg/m2 40.89 kg/m2 eCW1 ([facility]) Body height [in_us] eCW1 ([facility]) Body weight Measured 220 [lb_av] 220 [lb_av] eC W1 ([facility]) ID Date Data Source [id number] 11/06/2020 06:09:03 PM EST [facility] Name Value Range Interpretation Code Description Data Source(s) WEIGHT RECORDED 231.8 lb 231.8 lb [facility] ID Date Data Source [id number] 08/23/2020 03:45:18 PM EDT [facility] Name Value Range Interpretation Code Description Data Source(s) WEIGHT RECORDED 227.8 lb 227.8 lb [facility] ID Date Data Source [id number] 05/31/2020 12:13:09 PM EDT [facility] Name Value Range Interpretation Code Description Data Source(s) WEIGHT RECORDED 220 lb 220 lb [facility] ID Date Data Source [id number] 03/13/2020 02:41:40 PM EDT [facility] Name Value Range Interpretation Code Description Data Source(s) WEIGHT RECORDED 218 lb 218 lb [facility] ID Date Data Source [id number] 02/05/2020 02:24:11 PM EDT [facility] Name Value Range Interpretation Code Description Data Source(s) WEIGHT RECORDED 234.4 lb 234.4 lb [facility] Body height Measured 61.42 in 61.42 in [facility] Patient Treatment Plan of Care Planned Activity Planned Date Details Description Data Source (s) pantoprazole 40 MG Delayed Release Oral Tablet 09/27/2020 12:00:00 AM EDT eCW1 ([facility]) pantoprazole 40 MG Delayed Release Oral Tablet 09/27/2020 12:00:00 AM EDT eCW1 ([facility]) pantoprazole 40 MG Delayed Release Oral Tablet 09/27/2020 12:00:00 AM EDT eCW1 ([facility]) pantoprazole 40 MG Delayed Release Oral Tablet 09/27/2020 12:00:00 AM EDT eCW1 ([facility]) pregabalin 300 MG Oral Capsule [Lyrica] 09/09/2020 12:00:00 AM EDT eCW1 ([facility]) pregabalin 300 MG Oral Capsule [Lyrica] 09/09/2020 12:00:00 AM EDT eCW1 ([facility]) Morphine Sulfate 2 MG/ML Oral Solution 06/18/2020 12:00:00 AM EDT eCW1 ([facility]) Morphine Sulfate 2 MG/ML Oral Solution 06/18/2020 12:00:00 AM EDT eCW1 ([facility]) Morphine Sulfate 2 MG/ML Oral Solution 06/18/2020 12:00:00 AM EDT eCW1 ([facility]) Morphine Sulfate 2 MG/ML Oral Solution 06/18/2020 12:00:00 AM EDT eCW1 ([facility]) Morphine Sulfate 2 MG/ML Oral Solution 06/18/2020 12:00:00 AM EDT eCW1 ([facility]) Morphine Sulfate 2 MG/ML Oral Solution 06/18/2020 12:00:00 AM EDT eCW1 ([facility]) Morphine Sulfate 2 MG/ML Oral Solution 06/18/2020 12:00:00 AM EDT eCW1 ([facility]) Morphine Sulfate 2 MG/ML Oral Solution 06/18/2020 12:00:00 AM EDT eCW1 ([facility]) Morphine Sulfate 2 MG/ML Oral Solution 05/22/2020 12:00:00 AM EDT eCW1 ([facility]) Morphine Sulfate 2 MG/ML Oral Solution 05/22/2020 12:00:00 AM EDT eCW1 ([facility]) Morphine Sulfate 2 MG/ML Oral Solution 05/22/2020 12:00:00 AM EDT eCW1 ([facility]) Morphine Sulfate 2 MG/ML Oral Solution 05/22/2020 12:00:00 AM EDT eCW1 ([facility]) Morphine Sulfate 2 MG/ML Oral Solution 03/06/2020 12:00:00 AM EDT eCW1 ([facility]) Morphine Sulfate 2 MG/ML Oral Solution 12/29/2019 12:00:00 AM EST eCW1 ([facility]) Morphine Sulfate 2 MG/ML Oral Solution 12/28/2019 12:00:00 AM EST eCW1 ([facility]) Docusate Sodium 50 MG / sennosides, LONG TERM 8.6 MG Oral Ta blet [SENOKOT-S] 12/13/2019 12:00:00 AM EST eCW1 ([facility])
[2021-01-16] MEDS ORDERED: RAMELTEON 8 MG TAB (ROZEREM) PO PRN (18:00)
[2021-01-16] MEDS: LACTOBACILLUS ACIDOPHILUS CAP (BACID) PO SCH ×2 (18:00→21:00)
[2021-01-16 18:18] LABS: HEMATOCRIT 34.9 % (36.0-47.0)
[2021-01-16 18:21] LABS: HEMOGLOBIN 10.9 g/dl (12.0-15.5)
--- NOTE | 2021-01-16 18:28 | HPEPDOC ---
[facility] Medical History & Physical Date of Admission Jan 16, 2021 Date of Service: Jan 16, 2021 History and Physical CHIEF COMPLAINT: Altered mental status HISTORY OF PRESENT ILLNESS: Obtained from the present at the bedside 55-year-old female with primary progressive multiple sclerosis, wheelchair bound, neurogenic bladder with recurrent urinary tract infection with E faecalis, Pseudomonas, Escherichia coli, chroniccatheter, neurogenic bowel, bilateral hydronephrosis, urinary diversion, enterostomy, COPD, hypertension, torticollis, pseudobulbar affect, paresthesias, B12 deficiency, chronic kidney disease stage III, migraines, obesity, anxiety, depression, chronic insomnia, was recently discharged from [facility] where she was treated for acute on chronic renal failure, urinary tract infection and bilateral hydronephrosis presents again today with altered mental status. According to the , patient was increasingly confused throughout the night complaining of 5 out of 10 pain at all times all over, especially her back and had trouble swallowing this morning unable to give pills. Patient has a port in the right anterior chest, but denied any fever home. She was grimacing and shaking at home and was brought into the hospital today for further evaluation. Patient was found to have a fever of 104. Coronavirus Negative. Negative CT chest, CT abdomen and pelvis, bilateral hydronephrosis, mild. No other acute intra- abdominal pathology. says patient has been constipated, has not had any bowel movement since being home, no bright red blood per rectum, melena, black tarry stools. No hematemesis or coffee-ground emesis. Hospitalist was asked to admit for urinary tract infection and evaluation of anemia. PAST MEDICAL HISTORY: primary progressive multiple sclerosis, wheelchair bound, neurogenic bladder with recurrent urinary tract infection with E faecalis, Pseudomonas, Escherichia coli, neurogenic bowel, bilateral hydronephrosis, urinary diversion, enter ostomy, COPD, hypertension, torticollis, pseudobulbar affect, paresthesias, B12 deficiency, chronic kidney disease stage III, migraines, obesity, anxiety, depression, chronic insomnia, epilepsy, cystectomy with urostomy. Microcytic anemia, vitamin B12 deficiency, anxiety, depression, hepatic steatosis PAST SURGICAL HISTORY: bilateral breast reduction, bilateral wrist surgery, tubal ligation, resection basal cell carcinoma, wrist surgery, hysterectomy,urinary diversion, enterostomy, SOCIAL HISTORY: ., No alcohol, recreational drug use, alcohol use FAMILY HISTORY: Noncontributory ALLERGIES: Please see below. REVIEW OF SYSTEMS: 12 point review of systems negative aside from positive findings on HPI HOME MEDICATIONS: Please see below. PHYSICAL EXAMINATION: VITAL SIGNS: See below GENERAL APPEARANCE: Obtunded, not answering questions, pallor HEENT: No JVD, thyromegaly, anterior chest has right sided infusa-port CARDIOVASCULAR: S1, S2, sinus rhythm LUNGS: Clear to auscultation. Air entry is equal ABDOMEN: Obese, soft, nontender, nondistended, positive bowel sounds EXTREMITIES: No cyanosis or clubbing LABORATORY DATA: See below. IMAGING: CT CHEST 01/16/21 Helical scanning is acquired. 3 mm axial images are generated. Coronal and sagittal MPR and coronal MIP images are generated. FINDINGS: Preliminary digital director fixed income radiograph is noncontributory. Lung allison are well inflated. No focal infiltrate is seen. There is no evidence of pleural or pericardial effusion. There is a right-sided Rukwyg-T-Qncp catheter with its tip in the superior vena cava. No hilar mediastinal mass or adenopathy is observed. There are granulomatous calcifications in the left and right hilar region. There is a calcified granuloma in the left lower lobe of the lung. No bony destructive lesion is seen. IMPRESSION: Right-sided Ckalrs-G-Kvwu catheter in place. Old granulomatous changes. No acute disease. <Electronically signed by Chan Villa > 01/16/[address] ABD/PELVIS 01/16/[address] abdomen and pelvis is from 29 December 2020.. TECHNIQUE: Helical scanning is acquired in 4 mm axial images were reformatted. Coronal and sagittal MPR images were generated and reviewed. FINDINGS: Preliminary digital director fixed income radiograph demonstrates an unremarkable bowel gas jorge luis miguel. The liver and spleen are homogeneous in texture. Normal adrenal glands are seen. No abnormality is noted in the gallbladder or pancreas. Moderate bilateral hydronephrosis is again seen essentially unchanged from the comparison study of 29 December 2020. There is minimal perinephric edema. The ureters are dilated extending down to the level of the pelvis. There is a diverting ileostomy in the right lower quadrant which appears to contain a catheter. There are bilateral cystic masses in the ovaries as previously noted. The right today measures 7.8 by 6.3, previously 7.6 x 6.5 cm. The left-sided cystic mass lesion measures 4.9 x 2.7, previously 5.6 x 2.7 cm. Small and large intestinal bowel loops are unremarkable. No abdominal wall defect is seen. No evidence of free air or new fluid collection. IMPRESSION: Findings essentially status coil from 29 December 2020 prior study. Bilateral hydronephrosis and hydroureter. Urinary diversion enterostomy. Bilateral ovarian cystic mass lesions. The right ovarian lesion appears to be adjacent to the course of the distal ureters and near the ureteral ileal anastomosis. No new intra- abnormality <Electronically signed by Chan Villa > 01/16/21 9411 MICROBIOLOGY: Please see below. ASSESSMENT: 55-year-old female with primary progressive multiple sclerosis, wheelchair bound, neurogenic bladder with recurrent urinary tract infection with E faecalis, Pseudomonas, Escherichia coli, chronic catheter, neurogenic bowel, bilateral hydronephrosis, urinary diversion, enterostomy, COPD, hypertension, torticollis, pseudobulbar affect, paresthesias, B12 deficiency, chronic kidney disease stage III, migraines, obesity, anxiety, depression, chronic insomnia, was recently discharged from [facility] where she was treated for acute on chronic renal failure, urinary tract infection and bilateral hydronephrosis presents again today with altered mental status. According to the , patient was increasingly confused throughout the night complaining of 5 out of 10 pain at all times all over, especially her back and had trouble swallowing this morning unable to give pills. Patient has a port in the right anterior chest, but denied any fever home. She was grimacing and shaking at home and was brought into the hospital today for further evaluation. Patient was found to have a fever of 104. Coronavirus. Negative CT chest, CT abdomen and pelvis, bilateral hydronephrosis, mild. No other acute intra-abdominal pathology. says patient has been constipated, has not had any bowel movement since being home, no bright red blood per rectum, melena, black tarry stools. No hematemesis or coffee-ground emesis. Hospitalist was asked to admit for urinary tract infection and evaluation of anemia. Acute encephalopathy -Differential diagnoses includes urinary tract infection, rule out line sepsis from chronic right-sided Ouhpye-f-[id number], possible seizure activity despite compli ance with antiepileptic drugs, possible multiple sclerosis exacerbation. MRI of the brain without follow-up with contrast will be obtained to rule out acute multiple sclerosis exacerbation. Patient only given broad-spectrum antibiotics with IV meropenem and vancomycin due to history of Pseudomonas, enterococcus faecalis. Monitor for seizure activity due to meropenem, which can lower seizure threshold. Bacid to prevent C. difficile. Aspiration and seizure precautions. Speech evaluation in the morning. Hold off on nonessential oral medications. Electroencephalogram in the morning and check prolactin level Urinary tract infection secondary to chronic catheter in the setting of neurogenic bladder from progressive multiple sclerosis -On IV vancomycin and meropenem renally dosed by pharmacy to complete a 7 day course. Await urine and blood cultures. , Tylenol for fever. Avoid NSAIDs due to renal failure Sepsis -rule out line infection with chronic right sided Pfjrdw-m-Fmwl. Await blood cu lture results and continue with broad-spectrum antibiotics tailor antibiotics accordingly. Once culture results are available Anemia -Recheck H&H. If persistently less than 8. Patient will need RBC transfusion. Check iron studies, stool for blood. Chronic kidney disease stage III -At baseline creatinine. Renally dose all medications and avoid nephrotoxins primary progressive multiple sclerosis, wheelchair bound, neurogenic bladder -Follows with a neurologist in [place] at [facility]. Obtain MRI of the brain this evening to rule out MS exacerbation -with recurrent urinary tract infection with E faecalis, Pseudomonas, Escherichia coli, neurogenic bowel, -Chronic bilateral hydronephrosis, urinary diversion, enterostomy, -Chronic COPD, compensated hypertension, -Controlled torticollis, pseudobulbar affect, -Chronic B12 deficiency, -Supplement migraines, -No complaints obesity, -Complicating care anxiety, depression, -Chronic chronic insomnia, -PRN MED epilepsy, -Check EEG. Aspiration seizure precautions Vital Signs Vital Signs Date Time Temp Pulse Resp B/P (MAP) Pulse Ox O2 Delivery O2 Flow Rate FiO2 01/16/21 16:59 103.5 01/16/21 15:07 115 24 97 01/16/21 14:45 133/72 (92) 01/16/21 12:21 Room Air Laboratory Data Labs 24H Laboratory Tests 2 01/16/21 13:03: Immature Granulocyte % (Auto) 1.3, Neutrophils (%) (Auto) 81.4H, Lymphocytes (%) (Auto) 5.7L, Monocytes (%) (Auto) 10.0H, Eosinophils (%) (Auto) 1.5, Basophils (%) (Auto) 0.1, Neutrophils # (Auto) 5.5, Lymphocytes # (Auto) 0.4L, Monocytes # (Auto) 0.7, Eosinophils # (Auto) 0.1, Basophils # (Auto) 0.0, Nucleated Red Blood Cells % (auto) 0.0, Anion Gap 11, Glomerular Filtration Rate 30.9L, Lactic Acid Level 0.7, Calcium Level 7.5L, Total Bilirubin 0.3, Direct Bilirubin 0.1, Aspartate Amino Transf (AST/SGOT) 6L, Alanine Aminotransferase (ALT/SGPT) 12, Alkaline Phosphatase 208H, Total Protein 5.7L, Albumin 2.5L, Albumin/Globulin Ratio 0.8L, Thyroid Stimulating Hormone (TSH) 0.489 01/16/21 13:07: Urine Color YELLOW, Urine Appearance CLOUDYH, Urine pH 7.0, Urine Specific [place] 1.008, Urine Protein 1+H, Urine Glucose (UA) NEGATIVE, Urine Ketones NEGATIVE, Urine Blood 1+H, Urine Nitrite NEGATIVE, Urine Bilirubin NEGATIVE, Urine Urobilinogen 0.2, Urine Leukocyte Esterase 3+H, Urine WBC (Auto) TNTCH, Urine RBC (Auto) 34H, Urine Hyaline Casts (Auto) 0, Urine Bacteria (Auto) 1+H, Urine Squamous Epithelial Cells 0, Urine Mucus (Auto) SMALL, Urine Sperm (Auto) CBC/BMP Laboratory Tests 01/16/21 13:03 Microbiology Microbiology 01/16/21 Respiratory Virus Panel (PCR) (VANDANA) - Final, Complete 01/16/21 Blood Culture, Received Pending 01/16/21 Urine Culture, Received Pending 01/16/21 Blood Culture, Received Pending Home Medications Scheduled Acyclovir (Acyclovir) 400 Mg Tab, 400 MG PO BID Amantadine HCl (Amantadine) 100 Mg Tablet, 100 MG PO BID Aripiprazole (Aripiprazole) 2 Mg Tablet, 2 MG PO QHS Aspirin (Ecotrin) 81 Mg Tablet.dr, 81 MG PO QHS Atorvastatin Calcium (Atorvastatin Calcium) 40 Mg Tablet, 40 MG PO DAILY Baclofen (Baclofen) 20 Mg Tablet, 40 MG PO BID Clonazepam (Clonazepam) 1 Mg Tab, 1 MG PO QHS Duloxetine Hcl (Duloxetine HCl) 60 Mg Capsule.dr, 60 MG PO BID Ergocalciferol (Vitamin D2) (Vitamin D2) 50,000 Units Cap, 50,000 UNITS PO 1XWK FRI Fosfomycin Tromethamine (Fosfomycin Tromethamine) 3 Gram Packet, 3 GM PO QWEEK FRI Hydroxyzine HCl (Hydroxyzine HCl) 50 Mg Tablet, 50 MG PO BID Levetiracetam (Keppra) 500 Mg Tablet, 500 MG PO BID Levothyroxine Sodium (Levothyroxine Sodium) 50 Mcg Tablet, 50 MCG PO QAM 30 MINUTES BEFORE BREAKFAST Magnesium Oxide (Magnesium) 500 Mg Capsule, 500 MG PO QHS Melatonin (Melatonin) 10 Mg Capsule, 10 MG PO QHS Meloxicam (Meloxicam) 15 Mg Tablet, 15 MG PO DAILY Pantoprazole Sodium (Pantoprazole Sodium) 40 Mg Tablet.dr, 40 MG PO BID Phenytoin Sodium Extended (Phenytoin Sodium Extended) 100 Mg Capsule, 400 MG PO QHS Potassium Chloride (Potassium Chloride) 10 Meq Tab.er.prt, 10 MEQ PO DAILY Pregabalin (Lyrica) 300 Mg Capsule, 300 MG PO BID Sennosides/Docusate Sodium (Senokot-S Tablet) 1 Each Tablet, 1 TAB PO QHS Scheduled PRN Albuterol Sulfate (Ventolin Hfa) 108 Mcg/Act Aer, 2 PUFFS INH Q4H PRN for SHORTNESS OF BREATH Mometasone Furoate (Asmanex Hfa) 100 Mcg/Act Hfa.aer.ad, 1 PUFF INH BID PRN for ASTHMA SYMPTOMS Promethazine HCl (Promethazine HCl) 25 Mg Tablet, 25 MG PO Q4H PRN for NAUSEA OR VOMITING FOR NAUSEA RELATED TO MIGRAINES Allergies Coded Allergies: Cephalosporins (Verified Allergy, Intermediate, rash, 12/27/19) Sulfa (Sulfonamide Antibiotics) (Verified Allergy, Mild, itchy, 12/27/19) oxycodone (Verified Allergy, Mild, itchy, 12/27/19) hydrocodone (Verified Adverse Reaction, Intermediate, chest pain, 12/27/19) A-FIB/CHADSVASC A-FIB History Current/History of A-Fib/PAF?: No Current PO Anticoag Therapy: No Age/Risk Factor Scoring CHADSVASC: CHADSVASC Response (Comments) Value Age Risk Factor Age < 65 years old 0 Gender Risk Factor Female 1 Hx of CHF No 0 Hx of HTN Yes 1 Hx of Stroke/TIA/or VTE No 0 Hx of Diabetes No 0 Hx of Vascular Disease No 0 Total 2 Treatment Treatment ordered: NONE JEFF GIRON MD Jan 16, 2021 18:12
[2021-01-16 18:49] LABS: PERCENT SATURATION 2.8 % (13.2-45.0)
[2021-01-16 18:56] VITALS: BP 126/86
[2021-01-16] MEDS: MEROPENEM INJ 1 GM in IV 1 EA IV SCH (18:57)
[2021-01-16 19:13] LABS: PROLACTIN 6.6 NG/ML
[2021-01-16] MEDS ORDERED: VANCOMYCIN HCL 1,000 MG, VIAL MATE ADAPTER 1 EACH in D5W 250 ML IV ONE (20:00)
[2021-01-16] MEDS ORDERED: VANCOMYCIN HCL 750 MG, VIAL MATE ADAPTER 1 EACH in D5W 250 ML IV ONE ×2 (20:00→21:15)
[2021-01-16] MEDS: PHENYTOIN ER 100 MG CAP PO SCH (21:00)
[2021-01-16] MEDS: BACLOFEN 10 MG TAB PO SCH (21:00)
[2021-01-16] MEDS: SENOKOT S TAB PO SCH (21:00)
[2021-01-16] MEDS ORDERED: PREGABALIN 100 MG CAP (LYRICA) PO SCH (21:00)
[2021-01-16] MEDS: levETIRAcetam 250MG TABLET (KEPPRA) PO SCH (21:00)
[2021-01-16] MEDS: PREGABALIN 75 MG CAP(LYRICA) PO SCH (21:00)
[2021-01-16] MEDS: MAGNESIUM OXIDE 400MG TAB (MAG-OX) PO SCH (21:00)
[2021-01-16] MEDS: PANTOPRAZOLE 40MG TAB (PROTONIX) PO SCH (21:00)
[2021-01-16] MEDS: clonazePAM 1 MG TAB PO SCH (21:00)
[2021-01-16] MEDS: AMANTADINE 100MG TABLET PO SCH (21:00)
[2021-01-16] MEDS: ACYCLOVIR 200 MG CAPSULE PO SCH (21:00)
[2021-01-16] MEDS: hydrOXYzine 50 MG TAB PO SCH (21:00)
[2021-01-16] MEDS: DULoxetine 30 MG CAP (CYMBALTA) PO SCH (21:00)
[2021-01-16 22:00] VITALS: BP 129/90
[2021-01-17] MEDS ORDERED: SODIUM CHLORIDE 0.9% INJ 10 ML SYR IV PRN (00:30)
[2021-01-17 01:19] LABS: HEMOGLOBIN 8.3 g/dl (12.0-15.5)
[2021-01-17] MEDS ORDERED: ACETAMINOPHEN 650 MG SUPP PR PRN (01:45)
[2021-01-17] MEDS: MEROPENEM INJ 1 GM in IV 1 EA IV SCH ×2 (05:05→17:10)
[2021-01-17] MEDS: LEVOTHYROXINE 50MCG TABLET (0.05MG) PO SCH (05:07)
[2021-01-17 06:00] VITALS: BP 114/70
[2021-01-17 06:10] LABS: BASO % 0.1 % (0.0-1.0); EOS # 0.1 10^3/uL (0.0-0.5); EOS % 1.5 % (0.0-3.0); HEMATOCRIT 26.8 % (36.0-47.0); HEMOGLOBIN 8.5 g/dl (12.0-15.5); LYMPH # 0.4 10^3/uL (1.5-5.0); LYMPH % 4.8 % (24.0-44.0); MEAN CORPUSCULAR HEMOGLOBIN 26.8 pg (27.0-33.0); MEAN CORPUSCULAR HGB CONC 31.7 g/dl (32.0-36.5); MEAN CORPUSCULAR VOLUME 84.5 fl (80.0-96.0); MONO # 0.7 10^3/uL (0.0-0.8); NEUTROPHILS # 6.8 10^3/uL (1.5-8.5); NEUTROPHILS % 84.5 % (36.0-66.0); PLATELET COUNT, AUTOMATED 168 10^3/uL (150-450); RED BLOOD COUNT 3.17 10^6/uL (4.00-5.40); WHITE BLOOD COUNT 8.1 10^3/uL (4.0-10.0)
[2021-01-17 06:41] LABS: CREATININE FOR GFR 1.68 MG/DL (0.55-1.30); GLOMERULAR FILTRATION RATE 33.9 (>51); POTASSIUM SERUM 3.1 MEQ/L (3.5-5.1)
[2021-01-17] MEDS: D5W/0.45% SODIUM CHLORIDE 1,000 ML IV SCH ×2 (07:04→15:09)
--- NOTE | 2021-01-17 08:16 | ECGEPIP ---
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
[2021-01-17] MEDS: MELOXICAM (MOBIC) 7.5 MG TAB PO SCH (09:00)
[2021-01-17] MEDS: SODIUM CHLORIDE 0.9% INJ 10 ML SYR IV SCH (09:00)
[2021-01-17] MEDS ORDERED: NON-FORMULARY 1 EA EA PO SCH (09:00)
[2021-01-17] MEDS: ATORVASTATIN 20 MG TAB PO SCH (09:00)
[2021-01-17] MEDS ORDERED: PHENYTOIN 100 MG/2 ML VIAL (J1165) IV SCH (09:00)
[2021-01-17] MEDS: LEVOTHYROXINE 100MCG (0.1MG) VIAL IV SCH (10:08)
[2021-01-17] MEDS: PHENYTOIN 100 MG/2 ML VIAL (J1165) IV SCH ×4 (10:12→21:11)
[2021-01-17] MEDS: levETIRAcetam INJection 500 MG in D5W MINI-BAG PLUS 100 ML IV SCH ×2 (10:18→21:12)
[2021-01-17] MEDS: KCL 10MEQ/100ML SWI (KRUN) 10 MEQ in IV 1 EA IV SCH ×3 (10:23→13:48)
--- NOTE | 2021-01-17 11:09 | IPN ---
PROGRESS NOTE DATE: 01/17/2021 SUBJECTIVE: The patient's medications had been held yesterday due to altered mental status and concern for aspiration. The patient is much more awake this morning, answers questions appropriately though is slow to respond. T-max overnight was 104.1. Afebrile this morning at 97.5. Complains of generalized pain especially in the back and some dysuria. No complaints of chills. OBJECTIVE: VITAL SIGNS: T-max 104, current temperature 97.5, pulse 112, respiratory rate 20, blood pressure 114/70, 97% on room air. GENERAL: The patient is awake, alert, and oriented to person only. Slightly disoriented to time. She is also oriented to place. No respiratory distress. Disheveled. HEENT: Dry mucous membranes. NECK: No JVD. No thyromegaly. LUNGS: Clear to auscultation. No wheezing or rales. HEART: S1, S2. Sinus tachycardia. ABDOMEN: Obese, soft, and slightly tender. There are bowel sounds. Enterostomy. EXTREMITIES: No cyanosis or clubbing. Positive edema. LABORATORY DATA: White count 8.1, hemoglobin 8.5, hematocrit 26, platelet count 168,000. Sodium 144, potassium 3.1, chloride 112, bicarb 21, BUN 14, creatinine 1.68, glucose 95, and previous creatinine was 1.82. Blood culture preliminary 01/16, gram-negative romana. Urine culture pending. Respiratory panel and COVID-19 negative. ASSESSMENT/PLAN: This is a 55-year-old female with history of primary progressive multiple sclerosis wheelchair bound and neurogenic bladder with recurrent urinary tract infection (UTI) with Enterococcus faecalis, pseudomonas, Escherichia coli, chronic enterostomy, neurogenic bowel, bilaterally hydronephrosis, urinary diversion with enterostomy, chronic obstructive pulmonary disease (COPD), hypertension, tortacollis, pseudobulbar affect, B12 deficiency, chronic kidney disease stage III, migraines, anxiety, depression, metabolic encephalopathy secondary to UTI, chronic insomnia recently discharged from [facility] January 15. We admitted January 16 due to altered mental status. According to the , the patient was more confused, grimacing and shaking at home, found to have a fever of 104. She has a chronic port in the right anterior chest. CT chest, abdomen, and pelvis were negative aside from bilateral hydronephrosis, which is chronic and mild. No other intracranial abnormality. Active issues are: 1. Acute encephalopathy most likely secondary to sepsis from recurrent UTI, rule out line sepsis with chronic right-sided Infusaport with gram-negative rods growing in the blood. The patient is currently on IV meropenem. The patient's medications have been reviewed and have been discontinued due to altered mental status and aspiration risk. Speech therapy has been consulted to rule out aspiration. P.o. medications have been changed to IV Synthroid, Dilantin, and Keppra. 2. Urinary tract infection in the setting of neurogenic bladder from progressive multiple sclerosis and chronic catheter with enterostomy. The patient is currently broadly covered with meropenem and IV vancomycin until urine cultures are available. Tylenol for fever. Avoid nonsteroidal anti-inflammatory drugs (NSAIDs) due to renal failure. 3. Sepsis, rule out line infection with chronic right-sided Infusaport. Await blood and urine cultures. Currently with gram-negative bacteremia most likely due to UTI currently on IV meropenem renally dosed by pharmacy. 4. Anemia. Repeat hemoglobin was 10. No signs of active gastrointestinal (GI) bleed. Currently being transfused two units of blood due to hemoglobin of 8. 5. Chronic kidney disease stage III at baseline creatinine. All medications have been renally dosed. P.o. medications have been held due to possible aspiration due to altered mental status. 6. Primary progressive multiple sclerosis, wheelchair bound, neurogenic bladder. MRI/MRA of the brain ordered to rule out exacerbation. Encephalopathy most likely secondary to infection. 7. Bilateral hydronephrosis with improving creatinine. Has chronic enterostomy, urinary diversion. Continue with IV fluids. 8. Chronic obstructive pulmonary disease (COPD) compensated. Hypertension is well-controlled. 9. Chronic insomnia. P.o. medications held. 10. Anxiety and depression. Chronic medications held. 11. History of epilepsy. Check EEG. Aspiration and seizure precautions. The patient's prolactin level was normal. MTDD
--- NOTE | 2021-01-17 13:29 | REPVR ---
PROCEDURE INFORMATION: Exam: MR Head Without Contrast Exam date and time: 01/17/2021 6:04 PM Age: 55 years old Clinical indication: Altered mental status/memory loss; Confusion or disorientation; Additional info: AMS h/o progressive multiple sclerosis R/O exacerbation TECHNIQUE: Imaging protocol: MR of the head without contrast. 3D rendering (Not supervised by radiologist): MIP and/or 3D reconstructed images were created by the technologist. COMPARISON: MRI-Brain W/O FOLL BY WITH 12/27/2020 8:05 PM FINDINGS: Brain: There is no extra-axial collection or intra-axial mass. Mild diffuse volume loss is likely within the range of normal for patient age. There are foci of increased T2/FLAIR hyperintensity within the periventricular and subcortical white matter and substance of the didier, compatible with submitted history of demyelinating disease. Many of these have a perivenular distribution. Plaque burden appears unchanged in the interval. Cerebral ventricles: Normal. No ventriculomegaly. Bones/joints: Unremarkable. Paranasal sinuses: Normal as visualized. No acute sinusitis. Mastoid air cells: Normal as visualized. No mastoid effusion. Orbital cavity: Unremarkable. Soft tissues: Unremarkable. IMPRESSION: Findings compatible with submitted history of demyelinating disease. Stable plaque burden. Electronically signed by: Radha Garcia On 01/17/2021 13:29:39 PM
[2021-01-17 14:00] VITALS: BP 121/77
[2021-01-17] MEDS: VANCOMYCIN HCL 750 MG, VIAL MATE ADAPTER 1 EACH in D5W 250 ML IV SCH ×2 (19:38→21:12)
[2021-01-17 20:00] VITALS: BP 117/72
[2021-01-18] MEDS: D5W/0.45% SODIUM CHLORIDE 1,000 ML IV SCH ×3 (02:04→19:39)
[2021-01-18] MEDS: MEROPENEM INJ 1 GM in IV 1 EA IV SCH ×2 (05:21→18:15)
[2021-01-18 06:10] VITALS: BP 124/74
[2021-01-18 06:30] LABS: BASO % 0.2 % (0.0-1.0); EOS # 0.1 10^3/uL (0.0-0.5); EOS % 2.1 % (0.0-3.0); HEMATOCRIT 28.8 % (36.0-47.0); HEMOGLOBIN 8.9 g/dl (12.0-15.5); LYMPH # 0.3 10^3/uL (1.5-5.0); LYMPH % 4.3 % (24.0-44.0); MEAN CORPUSCULAR HEMOGLOBIN 26.1 pg (27.0-33.0); MEAN CORPUSCULAR HGB CONC 30.9 g/dl (32.0-36.5); MEAN CORPUSCULAR VOLUME 84.5 fl (80.0-96.0); MONO # 0.5 10^3/uL (0.0-0.8); NEUTROPHILS # 5.2 10^3/uL (1.5-8.5); NEUTROPHILS % 84.4 % (36.0-66.0); PLATELET COUNT, AUTOMATED 200 10^3/uL (150-450); RED BLOOD COUNT 3.41 10^6/uL (4.00-5.40); WHITE BLOOD COUNT 6.1 10^3/uL (4.0-10.0)
[2021-01-18 06:50] LABS: CALCIUM LEVEL 7.8 MG/DL (8.5-10.1); CREATININE FOR GFR 1.49 MG/DL (0.55-1.30); POTASSIUM SERUM 3.8 MEQ/L (3.5-5.1)
[2021-01-18] MEDS: SODIUM CHLORIDE 0.9% INJ 10 ML SYR IV SCH (08:51)
[2021-01-18] MEDS: ATORVASTATIN 20 MG TAB PO SCH (08:54)
[2021-01-18] MEDS: MELOXICAM (MOBIC) 7.5 MG TAB PO SCH (08:54)
[2021-01-18] MEDS: hydrOXYzine 50 MG TAB PO SCH ×2 (09:00→21:00)
[2021-01-18] MEDS: DULoxetine 30 MG CAP (CYMBALTA) PO SCH ×2 (09:00→21:00)
[2021-01-18] MEDS: ACYCLOVIR 200 MG CAPSULE PO SCH ×2 (09:00→21:00)
[2021-01-18] MEDS: PREGABALIN 75 MG CAP(LYRICA) PO SCH ×2 (09:00→21:00)
[2021-01-18] MEDS: AMANTADINE 100MG TABLET PO SCH ×2 (09:00→21:00)
[2021-01-18] MEDS: BACLOFEN 10 MG TAB PO SCH ×2 (09:00→20:33)
[2021-01-18] MEDS: levETIRAcetam 250MG TABLET (KEPPRA) PO SCH ×2 (09:00→21:00)
[2021-01-18] MEDS: PANTOPRAZOLE 40MG TAB (PROTONIX) PO SCH ×2 (09:00→20:30)
[2021-01-18] MEDS: PHENYTOIN 100 MG/2 ML VIAL (J1165) IV SCH ×4 (09:02→20:59)
[2021-01-18] MEDS: LEVOTHYROXINE 100MCG (0.1MG) VIAL IV SCH (09:02)
[2021-01-18] MEDS: levETIRAcetam INJection 500 MG in D5W MINI-BAG PLUS 100 ML IV SCH ×2 (09:02→20:59)
[2021-01-18] MEDS: PROMETHAZINE INJ 25 MG/ML VIAL (J2550) IV PRN ×2 (11:42→15:45)
[2021-01-18] MEDS ORDERED: FLEET ENEMA PR PRN (11:45)
[2021-01-18] MEDS: LACTOBACILLUS ACIDOPHILUS CAP (BACID) PO SCH ×3 (12:30→21:00)
--- NOTE | 2021-01-18 12:58 | IPN ---
PROGRESS NOTE DATE: 01/18/2021 SUBJECTIVE: The patient's mentation is back to baseline. She is able to speak in full sentences, able to be appropriate. She is currently on IV antibiotics and has been afebrile for the past 24 hours. She currently is sinus tachycardia without any complaints of chest pain or palpitations. OBJECTIVE: VITAL SIGNS: Temperature 98, pulse 94, respiratory rate 20, blood pressure 124/74, 97% on room air. GENERAL: The patient is awake, alert, oriented to person and place, answering questions appropriately, slow to speak but speech is fluent and appropriate, no distress. No pallor, no cyanosis. No JVD or thyromegaly. LUNGS: Diminished but clear to auscultation, no wheezing or rales. HEART: S1, S2, sinus tachycardia. ABDOMEN: Obese, soft, nontender. EXTREMITIES: No cyanosis, clubbing, chronic edema. LABORATORY DATA: White count 6.1, hemoglobin 8.9, hematocrit 28, platelet count 200. Sodium 143, potassium 3.8, chloride 111, bicarb 21, BUN 15, creatinine 1.49, glucose 117. MRI of the brain shows chronic demyelinating disease with stable plaque burden. CT abdomen and pelvis 01/16/2021 urinary diversion enterostomy, bilateral ovarian cysts, mass lesions, right ovary is adjacent to the course of distal ureters and ureteroileal anastomosis, no new intraabdominal abnormality. ASSESSMENT/PLAN: This is a 55-year-old female admitted on 01/16/2021 with altered mental status, acute encephalopathy, fever of 104, admitted for evaluation of UTI sepsis secondary to urinary tract infection and found to be anemic. CURRENT ISSUES: As follows: 1. Acute encephalopathy most likely due to polypharmacy. The patient's medications have been discontinued. She is maintained on her antiepileptic medication, IV Keppra and Phenytoin. Due to aspiration risks her diet has been changed to dysphagia diet with pureed diet and thickened liquids. 2. Urinary tract infection in the setting of neurogenic bladder from progressive multiple sclerosis and chronic catheter. The patient is on IV Vanco and Meropenem renally dosed by pharmacy, awaiting urine and blood cultures, Tylenol for fever. Avoid NSAIDs due to renal failure. 3. Chronic kidney disease stage 3 now at baseline creatinine. 4. Primary progressive multiple sclerosis, wheelchair-bound, Tessa lift at baseline with chronic neurogenic bladder and recurrent UTIs. MRI of the brain shows no acute intracranial abnormality. 5. History of bilateral hydronephrosis, urinary diversion enterostomy. 6. Chronic COPD, compensated. 7. Hypertension, controlled. DISPOSITION: PT/OT and await urine cultures 2-3 days. MTDD
[2021-01-18] MEDS ORDERED: LACTULOSE 20 GM/30 ML SYRUP UD PR ONE (13:00)
[2021-01-18 14:00] VITALS: BP 118/79
[2021-01-18] MEDS ORDERED: METOCLOPRAMIDE INJ 10MG/2ML VIAL (J2765 PER 1) IV ONE (19:00)
[2021-01-18] MEDS: METOCLOPRAMIDE INJ 10MG/2ML VIAL (J2765 PER 1) IV SCH (19:39)
[2021-01-18] MEDS: VANCOMYCIN HCL 750 MG, VIAL MATE ADAPTER 1 EACH in D5W 250 ML IV SCH ×2 (19:54→20:58)
[2021-01-18] MEDS: clonazePAM 1 MG TAB PO SCH (20:30)
[2021-01-18] MEDS: SENOKOT S TAB PO SCH (20:33)
[2021-01-18] MEDS: MAGNESIUM OXIDE 400MG TAB (MAG-OX) PO SCH (21:00)
[2021-01-18] MEDS: PHENYTOIN ER 100 MG CAP PO SCH (21:00)
[2021-01-18 21:43] VITALS: BP 127/67
[2021-01-19] MEDS: MEROPENEM INJ 1 GM in IV 1 EA IV SCH ×2 (05:37→18:00)
[2021-01-19] MEDS ORDERED: ONDANSETRON 4MG/2ML VIAL IV PRN (05:45)
[2021-01-19 06:00] VITALS: BP 125/88
[2021-01-19] MEDS: LEVOTHYROXINE 50MCG TABLET (0.05MG) PO SCH (06:00)
[2021-01-19 06:18] LABS: BASO % 0.2 % (0.0-1.0); EOS # 0.2 10^3/uL (0.0-0.5); HEMATOCRIT 31.3 % (36.0-47.0); HEMOGLOBIN 9.7 g/dl (12.0-15.5); LYMPH # 0.4 10^3/uL (1.5-5.0); LYMPH % 3.7 % (24.0-44.0); MEAN CORPUSCULAR HEMOGLOBIN 26.1 pg (27.0-33.0); MEAN CORPUSCULAR VOLUME 84.1 fl (80.0-96.0); MONO # 0.8 10^3/uL (0.0-0.8); MONO % 7.3 % (2.0-8.0); NEUTROPHILS # 8.9 10^3/uL (1.5-8.5); NEUTROPHILS % 86.2 % (36.0-66.0); PLATELET COUNT, AUTOMATED 298 10^3/uL (150-450); RED BLOOD COUNT 3.72 10^6/uL (4.00-5.40); WHITE BLOOD COUNT 10.4 10^3/uL (4.0-10.0)
[2021-01-19 06:36] LABS: CALCIUM LEVEL 7.7 MG/DL (8.5-10.1); CREATININE FOR GFR 1.61 MG/DL (0.55-1.30); GLOMERULAR FILTRATION RATE 35.6 (>51); POTASSIUM SERUM 2.9 MEQ/L (3.5-5.1)
[2021-01-19] MEDS: KCL 10MEQ/100ML SWI (KRUN) 10 MEQ in IV 1 EA IV SCH ×4 (06:54→12:37)
[2021-01-19 07:08] LABS: MAGNESIUM LEVEL 1.5 MG/DL (1.8-2.4)
[2021-01-19] MEDS: BACLOFEN 10 MG TAB PO SCH ×2 (08:19→20:46)
[2021-01-19] MEDS: PHENYTOIN 100 MG/2 ML VIAL (J1165) IV SCH ×4 (08:19→20:42)
[2021-01-19] MEDS: PREGABALIN 75 MG CAP(LYRICA) PO SCH ×2 (08:19→20:48)
[2021-01-19] MEDS: METOCLOPRAMIDE INJ 10MG/2ML VIAL (J2765 PER 1) IV SCH ×4 (08:20→20:41)
[2021-01-19] MEDS: LEVOTHYROXINE 100MCG (0.1MG) VIAL IV SCH (08:20)
[2021-01-19] MEDS: LACTOBACILLUS ACIDOPHILUS CAP (BACID) PO SCH ×2 (08:21→11:49)
[2021-01-19] MEDS: levETIRAcetam INJection 500 MG in D5W MINI-BAG PLUS 100 ML IV SCH ×2 (08:21→20:44)
[2021-01-19] MEDS: PANTOPRAZOLE 40MG VIAL (C9113 PER 1) IV SCH ×2 (08:21→20:43)
[2021-01-19] MEDS: MELOXICAM (MOBIC) 7.5 MG TAB PO SCH (08:27)
[2021-01-19] MEDS: DULoxetine 30 MG CAP (CYMBALTA) PO SCH ×2 (08:27→20:48)
[2021-01-19] MEDS: hydrOXYzine 50 MG TAB PO SCH ×2 (08:27→20:48)
[2021-01-19] MEDS: ATORVASTATIN 20 MG TAB PO SCH (08:27)
[2021-01-19] MEDS: AMANTADINE 100MG TABLET PO SCH ×2 (08:28→20:47)
[2021-01-19] MEDS: SODIUM CHLORIDE 0.9% INJ 10 ML SYR IV SCH (08:28)
[2021-01-19] MEDS: ACYCLOVIR 200 MG CAPSULE PO SCH ×2 (08:28→20:47)
[2021-01-19] MEDS: D5W/0.45% SODIUM CHLORIDE 1,000 ML IV SCH ×3 (09:04→23:23)
[2021-01-19 09:42] LABS: CALCIUM LEVEL 7.8 MG/DL (8.5-10.1); CREATININE FOR GFR 1.51 MG/DL (0.55-1.30); GLOMERULAR FILTRATION RATE 38.4 (>51); POTASSIUM SERUM 3.3 MEQ/L (3.5-5.1)
--- NOTE | 2021-01-19 09:54 | IPNPDOC ---
Date Seen The patient was seen on 01/19/21. Progress Note Subjective: Patient seen and examined. She has been afebrile, no chills. Eating a modified diet due to aspiration risk. . No complaints of shortness of breath despite IV fluids. , No cough Objective: Physical exam: Vital signs: See below GENERAL: The patient is awake, alert, oriented to person and place, answering questions appropriately, slow to speak but speech is fluent and appropriate, no distress. No pallor, no cyanosis. No JVD or thyromegaly. Sitting at 30 angle in bed having breakfast able to feed herself without assistance LUNGS: Diminished but clear to auscultation, no wheezing or rales. HEART: S1, S2, sinus tachycardia. ABDOMEN: Obese, soft, nontender. EXTREMITIES: No cyanosis, clubbing, chronic edema. LABORATORY DATA: See below Microbiology: Blood culture Pseudomonas. Urine culture pending Imaging studies: MRI of the brain shows chronic demyelinating disease with stable plaque burden. CT abdomen and pelvis 01/16/2021 urinary diversion enterostomy, bilateral ovarian cysts, mass lesions, right ovary is adjacent to the course of distal ureters and ureteroileal anastomosis, no new intraabdominal abnormality. ASSESSMENT/PLAN: This is a 55-year-old female admitted on 01/16/2021 with altered mental status, acute encephalopathy, fever of 104, admitted for evaluation of UTI sepsis secondary to urinary tract infection and found to be anemic. CURRENT ISSUES: As follows: 1. Acute encephalopathy most likely due to polypharmacy and sepsis due to urinary tract infection with transient bacteremia. Due to aspiration risks her diet has been changed to dysphagia diet with pureed diet and thickened liquids. . She is currently receiving IV Vanco and meropenem. The blood culture was negative for gram-positive bacteremia. Urine culture still pending I have discontinued IV Vanco today. She remains afebrile 2. Urinary tract infection in the setting of neurogenic bladder from progressive multiple sclerosis and chronic catheter. The patient was on IV Vanco and Meropenem renally dosed by pharmacy. Have discontinued IV Vanco. . She is maintained on IV meropenem due to Pseudomonas in the blood, most likely transient bacteremia from UTI. Urine culture still pending 3. Chronic kidney disease stage 3 now at baseline creatinine. 4. Primary progressive multiple sclerosis, wheelchair-bound, Tessa lift at baseline with chronic neurogenic bladder and recurrent UTIs. MRI of the brain shows no acute intracranial abnormality. 5. History of bilateral hydronephrosis, urinary diversion enterostomy. 6. Chronic COPD, compensated. 7. Hypertension, controlled. 8. Pseudomonas bacteremia , Most likely due to UTI, but urine cultures still pending. She is maintained on IV meropenem for broad-spectrum coverage. . She has prior allergies to cephalosporins and sulfa. VS, I&O, 24H, Fishbone Vital Signs/I&O Vital Signs Date Time Temp Pulse Resp B/P (MAP) Pulse Ox O2 Delivery O2 Flow Rate FiO2 01/19/21 06:00 97.5 100 20 125/88 (100) 97 Room Air I&O- Last 24 Hours up to 6 AM 01/19/21 06:00 Intake Total 1895 ml Output Total 2750 ml Balance -855 ml Laboratory Data 24H LABS Laboratory Tests 2 01/18/21 18:51: Vancomycin Level Trough 18.9 01/19/21 05:40: Immature Granulocyte % (Auto) 0.6, Neutrophils (%) (Auto) 86.2H, Lymphocytes (%) (Auto) 3.7L, Monocytes (%) (Auto) 7.3, Eosinophils (%) (Auto) 2.0, Basophils (%) (Auto) 0.2, Neutrophils # (Auto) 8.9H, Lymphocytes # (Auto) 0.4L, Monocytes # (Auto) 0.8, Eosinophils # (Auto) 0.2, Basophils # (Auto) 0.0, Nucleated Red Blood Cells % (auto) 0.0, Anion Gap 12, Glomerular Filtration Rate 35.6L, Calcium Level 7.7L, Magnesium Level 1.5L 01/19/21 08:55: Anion Gap 10, Glomerular Filtration Rate 38.4L, Calcium Level 7.8L CBC/BMP Laboratory Tests 01/19/21 05:40 01/19/21 08:55 Microbiology Microbiology 01/16/21 Respiratory Virus Panel (PCR) (VANDANA) - Final, Complete 01/16/21 Blood Culture - Preliminary, Resulted No Growth after 48 hours. All Specime... 01/16/21 Urine Culture, Received Pending 01/16/21 Blood Culture - Final, Complete Pseudomonas Aeruginosa JEFF GIRON MD Jan 19, 2021 09:54
--- NOTE | 2021-01-19 12:00 | EEG ---
ELECTROENCEPHALOGRAM DATE: 01/17/2021 DIAGNOSIS: Altered mental status. EEG# [id number]. REFERRING PHYSICIAN: Lisa Marrufo MD. HISTORY: Patient is a 55-year-old female with multiple medical problems who was admitted to [facility] due to altered mental status. This EEG was done to rule out epileptic potential and assess degree of encephalopathy. She is currently taking meropenem, vancomycin, acyclovir, amantadine, Lipitor, etc. TECHNICAL DESCRIPTION: This digital EEG was recorded by 21-scalp, ear, and two EKG electrodes and was reviewed in bipolar and referential montages following reformatting in 10-20 international electrode placement system. INTERPRETATION: Patient was noted to be in mostly drowsy state during this EEG. Resting and awake background rhythm consisted of 3-4 Hz delta activity measuring 15-40 microvolts in amplitude, which was symmetric bilaterally. Hyperventilation could not be performed. Photic stimulation remained unremarkable. EKG revealed normal sinus rhythm. No focal, lateralizing, or epileptiform abnormalities were seen. No relevant clinical activity was noted. CONCLUSION: This EEG in most drowsy state is abnormal due to presence of generalized slowing and disorganization of background, consistent with nonspecific diffuse cerebral dysfunction suggesting encephalopathy due to multiple potential causes. No clear epileptiform abnormalities were seen. Clinical correlation is recommended. MTDD
[2021-01-19 12:40] LABS: CALCIUM LEVEL 7.5 MG/DL (8.5-10.1); CREATININE FOR GFR 1.56 MG/DL (0.55-1.30); POTASSIUM SERUM 3.6 MEQ/L (3.5-5.1)
[2021-01-19 14:00] VITALS: BP 134/80
[2021-01-19] MEDS: SENOKOT S TAB PO SCH (19:32)
[2021-01-19] MEDS ORDERED: ACETAMINOPHEN TAB 650MG DOSE (2X325MG) PO PRN (20:15)
[2021-01-19] MEDS: clonazePAM 1 MG TAB PO SCH (20:46)
[2021-01-19] MEDS: MAGNESIUM OXIDE 400MG TAB (MAG-OX) PO SCH (20:48)
[2021-01-19] MEDS ORDERED: VANCOMYCIN HCL 750 MG, VIAL MATE ADAPTER 1 EACH in D5W 250 ML IV SCH (22:00)
[2021-01-19] MEDS: POLYVINYL ALCOHOL OPHTH SOLN 15 ML(LIQUITEARS) OU SCH (22:32)
[2021-01-19] MEDS: SODIUM CHLORIDE NASAL 0.65% SPRAY BTL (OCEAN) PRN (22:32)
[2021-01-20] MEDS: MEROPENEM INJ 1 GM in IV 1 EA IV SCH ×2 (05:04→17:36)
[2021-01-20 06:30] VITALS: BP 110/74
[2021-01-20 06:52] LABS: BASO % 0.2 % (0.0-1.0); EOS # 0.2 10^3/uL (0.0-0.5); EOS % 4.5 % (0.0-3.0); HEMATOCRIT 26.2 % (36.0-47.0); LYMPH # 0.4 10^3/uL (1.5-5.0); LYMPH % 8.6 % (24.0-44.0); MEAN CORPUSCULAR HEMOGLOBIN 26.1 pg (27.0-33.0); MEAN CORPUSCULAR HGB CONC 30.5 g/dl (32.0-36.5); MEAN CORPUSCULAR VOLUME 85.6 fl (80.0-96.0); MONO # 0.5 10^3/uL (0.0-0.8); MONO % 9.3 % (2.0-8.0); NEUTROPHILS # 3.9 10^3/uL (1.5-8.5); NEUTROPHILS % 76.6 % (36.0-66.0); PLATELET COUNT, AUTOMATED 226 10^3/uL (150-450); RED BLOOD COUNT 3.06 10^6/uL (4.00-5.40); WHITE BLOOD COUNT 5.1 10^3/uL (4.0-10.0)
[2021-01-20 07:11] LABS: CREATININE FOR GFR 1.6 MG/DL (0.55-1.30); GLOMERULAR FILTRATION RATE 35.9 (>51)
[2021-01-20] MEDS: PHENYTOIN 100 MG/2 ML VIAL (J1165) IV SCH ×4 (08:19→21:01)
[2021-01-20] MEDS: DULoxetine 30 MG CAP (CYMBALTA) PO SCH ×2 (08:20→20:58)
[2021-01-20] MEDS: METOCLOPRAMIDE INJ 10MG/2ML VIAL (J2765 PER 1) IV SCH ×4 (08:20→21:00)
[2021-01-20] MEDS: LEVOTHYROXINE 100MCG (0.1MG) VIAL IV SCH (08:20)
[2021-01-20] MEDS: BACLOFEN 10 MG TAB PO SCH ×2 (08:21→20:59)
[2021-01-20] MEDS: PREGABALIN 75 MG CAP(LYRICA) PO SCH ×2 (08:21→20:58)
[2021-01-20] MEDS: MELOXICAM (MOBIC) 7.5 MG TAB PO SCH (08:21)
[2021-01-20] MEDS: ATORVASTATIN 20 MG TAB PO SCH (08:21)
[2021-01-20] MEDS: AMANTADINE 100MG TABLET PO SCH ×2 (08:22→21:00)
[2021-01-20] MEDS: hydrOXYzine 50 MG TAB PO SCH ×2 (08:22→20:59)
[2021-01-20] MEDS: ACYCLOVIR 200 MG CAPSULE PO SCH ×2 (08:22→20:58)
[2021-01-20] MEDS: levETIRAcetam INJection 500 MG in D5W MINI-BAG PLUS 100 ML IV SCH ×2 (08:23→21:01)
[2021-01-20] MEDS: PANTOPRAZOLE 40MG VIAL (C9113 PER 1) IV SCH ×2 (08:27→21:01)
[2021-01-20] MEDS: SODIUM CHLORIDE 0.9% INJ 10 ML SYR IV SCH (09:00)
[2021-01-20] MEDS: POLYVINYL ALCOHOL OPHTH SOLN 15 ML(LIQUITEARS) OU SCH ×3 (09:13→20:57)
--- NOTE | 2021-01-20 11:22 | IPNPDOC ---
Date Seen The patient was seen on 01/20/21. Progress Note Subjective: Patient complains of feeling congested this morning with cough productive of white sputum, slightly difficult to breathe with occasional wheezing. No fever or chills overnight. She is complaining of severe weakness, unable to sit up by herself with us as assistance and unable to get up from a sitting position using her walker without one-person assistance. . She has a chronic catheter and denies any dysuria, flank pain. Objective: Physical exam: Vital signs: See below GENERAL: The patient is awake, alert, oriented to person and place, answering questions appropriately, slow to speak but speech is fluent and appropriate, no distress. No pallor, no cyanosis. No JVD or thyromegaly. Sitting at 30 angle in bed having breakfast able to feed herself without assistance LUNGS: Diminished but faint wheezing. No rales. HEART: S1, S2, sinus tachycardia. ABDOMEN: Obese, soft, nontender., Chronic catheter. Positive bowel sounds 4 quadrants EXTREMITIES: No cyanosis, clubbing, chronic edema. LABORATORY DATA: See below Microbiology: Blood culture Pseudomonas. Urine culture pending Imaging studies: MRI of the brain shows chronic demyelinating disease with stable plaque burden. CT abdomen and pelvis 01/16/2021 urinary diversion enterostomy, bilateral ovarian cysts, mass lesions, right ovary is adjacent to the course of distal ureters and ureteroileal anastomosis, no new intraabdominal abnormality. ASSESSMENT/PLAN: This is a 55-year-old female admitted on 01/16/2021 with altered mental status, acute encephalopathy, fever of 104, admitted for evaluation of UTI sepsis secondary to urinary tract infection and found to be anemic. CURRENT ISSUES: As follows: 1. Acute encephalopathy most likely due to polypharmacy and sepsis due to urinary tract infection with Pseudomonas with transient bacteremia. Patient is currently on IV meropenem to complete at least a 5 day course But may extend to 7 days depending on clinical response. . We have minimized patient's medications to avoid oversedation patient's medications to avoid oversedation. 2. Pseudomonas Urinary tract infection in the setting of neurogenic bladder from progressive multiple sclerosis and chronic catheter. The patient was on IV Vanco and Meropenem renally dosed by pharmacy. Have discontinued IV Vanco. . She is maintained on IV meropenem due to Pseudomonas in the blood, most likely transient bacteremia from UTI. Urine culture still pending 3. Chronic kidney disease stage 3 now at baseline creatinine. 4. Primary progressive multiple sclerosis, wheelchair-bound, Tessa lift at baseline with chronic neurogenic bladder and recurrent UTIs. MRI of the brain shows no acute intracranial abnormality. 5. History of bilateral hydronephrosis, urinary diversion enterostomy. 6. Chronic COPD, with acute exacerbation Nebulizer and steroids rapidly tapering 7. Hypertension, controlled. 8. Pseudomonas transient bacteremia Secondary to UTI She is maintained on IV meropenem for broad-spectrum coverage. . She has prior allergies to cephalosporins and sulfa. VS, I&O, 24H, Fishbone Vital Signs/I&O Vital Signs Date Time Temp Pulse Resp B/P (MAP) Pulse Ox O2 Delivery O2 Flow Rate FiO2 01/20/21 06:30 98.9 89 17 110/74 (86) 97 Room Air I&O- Last 24 Hours up to 6 AM 01/20/21 06:00 Intake Total 1875 ml Output Total 2125 ml Balance -250 ml Laboratory Data 24H LABS Laboratory Tests 2 01/19/21 12:13: Anion Gap 12, Glomerular Filtration Rate 37.0L, Calcium Level 7.5L 01/19/21 20:56: Vancomycin Level Trough 25.5*H 01/20/21 06:22: Anion Gap 8, Glomerular Filtration Rate 35.9L, Calcium Level 8.0L, Immature Granulocyte % (Auto) 0.8, Neutrophils (%) (Auto) 76.6H, Lymphocytes (%) (Auto) 8.6L, Monocytes (%) (Auto) 9.3H, Eosinophils (%) (Auto) 4.5H, Basophils (%) (Auto) 0.2, Neutrophils # (Auto) 3.9, Lymphocytes # (Auto) 0.4L, Monocytes # (Auto) 0.5, Eosinophils # (Auto) 0.2, Basophils # (Auto) 0.0, Nucleated Red Blood Cells % (auto) 0.0 CBC/BMP Laboratory Tests 01/19/21 12:13 01/20/21 06:22 Microbiology Microbiology 01/20/21 Stool Occult Blood (VANDANA), Received Pending 01/16/21 Respiratory Virus Panel (PCR) (VANDANA) - Final, Complete 01/16/21 Blood Culture - Preliminary, Resulted No Growth after 72 hours. All specime... 01/16/21 Urine Culture - Final, Complete Pseudomonas Aeruginosa 01/16/21 Blood Culture - Final, Complete Pseudomonas Aeruginosa JEFF GIRON MD Jan 20, 2021 11:22
[2021-01-20] MEDS ORDERED: LIDOCAINE 1% MDV 20ML VIAL As Ordered ONE (13:07)
[2021-01-20 14:30] VITALS: BP 98/57
[2021-01-20] MEDS: D5W/0.45% SODIUM CHLORIDE 1,000 ML IV SCH (15:04)
--- NOTE | 2021-01-20 16:17 | REP ---
PROCEDURE NAME: PICC LINE INSERTION W/SITERITE CLINICAL INFORMATION: POOR IV ACCESS/ IRRITATING MEDS. COMPARISON: None. PROCEDURE DESCRIPTION: The procedure was performed by LESTER Sanchez, under the direct supervision of Dr. Villa. The risks and benefits of the procedure were explained to the patient and an informed consent was obtained both verbally and written. Directly prior to the start of the procedure a formal time-out was completed in the procedure room. The left basilic vein was localized using ultrasound guidance. The skin was prepped and draped in sterile fashion. One mL of 1% lidocaine 10 mg/mL was used as a local anesthetic. Using ultrasound guidance the left basilic vein was cannulated, and a 0.018 guidewire was inserted and advanced to the level of SVC using fluoroscopic guidance. The needle was removed and a 4.5 [place] dilator and peel-away sheath was inserted over the guidewire. A 4 point [place] single lumen catheter was cut to a length of 45 cm. The dilator was removed and the catheter was inserted over the guidewire with the tip ending at the level of the SVC. The peel-away sheath was removed and the catheter was flushed with heparinized saline as per hospital protocol. The catheter was affixed to the skin and a sterile dressing was applied. The patient tolerated the procedure well and there were no immediate complications. CONCLUSION: PICC line insertion into the left basilic vein. 0.1 minutes of fluoroscopy time was utilized for this procedure. Some fluoroscopic images are performed with last image hold technology. These images require no additional radiation. <Electronically signed by Joan Glynn > 01/20/21 1424 <Electronically signed by Chan Villa > 01/20/21 1614
[2021-01-20] MEDS: SODIUM CHLORIDE NASAL 0.65% SPRAY BTL (OCEAN) PRN (20:58)
[2021-01-20] MEDS: MAGNESIUM OXIDE 400MG TAB (MAG-OX) PO SCH (20:59)
[2021-01-20] MEDS: clonazePAM 1 MG TAB PO SCH (21:00)
[2021-01-20] MEDS: SENOKOT S TAB PO SCH (21:00)
[2021-01-20 22:00] VITALS: BP 124/76
[2021-01-21] MEDS: D5W/0.45% SODIUM CHLORIDE 1,000 ML IV SCH ×2 (01:04→02:26)
[2021-01-21] MEDS: MEROPENEM INJ 1 GM in IV 1 EA IV SCH (05:12)
[2021-01-21] MEDS ORDERED: SODIUM CHLORIDE 0.9% INJ 10 ML SYR IV PRN (05:45)
[2021-01-21 06:00] VITALS: BP 123/73
[2021-01-21] MEDS ORDERED: SODIUM CHLORIDE 0.9% INJ 10 ML SYR IV SCH (06:00)
[2021-01-21 06:12] LABS: BASO % 0.3 % (0.0-1.0); EOS # 0.3 10^3/uL (0.0-0.5); HEMATOCRIT 28.4 % (36.0-47.0); HEMOGLOBIN 8.6 g/dl (12.0-15.5); LYMPH # 0.4 10^3/uL (1.5-5.0); LYMPH % 5.8 % (24.0-44.0); MEAN CORPUSCULAR HGB CONC 30.3 g/dl (32.0-36.5); MEAN CORPUSCULAR VOLUME 85.8 fl (80.0-96.0); MONO # 0.5 10^3/uL (0.0-0.8); MONO % 6.2 % (2.0-8.0); NEUTROPHILS # 6.2 10^3/uL (1.5-8.5); NEUTROPHILS % 82.9 % (36.0-66.0); PLATELET COUNT, AUTOMATED 242 10^3/uL (150-450); RED BLOOD COUNT 3.31 10^6/uL (4.00-5.40); WHITE BLOOD COUNT 7.4 10^3/uL (4.0-10.0)
[2021-01-21 06:39] LABS: CALCIUM LEVEL 7.8 MG/DL (8.5-10.1); CREATININE FOR GFR 1.47 MG/DL (0.55-1.30); GLOMERULAR FILTRATION RATE 39.6 (>51); POTASSIUM SERUM 3.6 MEQ/L (3.5-5.1)
[2021-01-21] MEDS: PANTOPRAZOLE 40MG VIAL (C9113 PER 1) IV SCH (08:49)
[2021-01-21] MEDS: levETIRAcetam INJection 500 MG in D5W MINI-BAG PLUS 100 ML IV SCH (08:49)
[2021-01-21] MEDS: METOCLOPRAMIDE INJ 10MG/2ML VIAL (J2765 PER 1) IV SCH (08:50)
[2021-01-21] MEDS: LEVOTHYROXINE 100MCG (0.1MG) VIAL IV SCH (08:51)
[2021-01-21] MEDS: ACYCLOVIR 200 MG CAPSULE PO SCH (08:53)
[2021-01-21] MEDS: ATORVASTATIN 20 MG TAB PO SCH (08:53)
[2021-01-21] MEDS: hydrOXYzine 50 MG TAB PO SCH (08:53)
[2021-01-21] MEDS: AMANTADINE 100MG TABLET PO SCH (08:53)
[2021-01-21] MEDS: MELOXICAM (MOBIC) 7.5 MG TAB PO SCH (08:54)
[2021-01-21] MEDS: DULoxetine 30 MG CAP (CYMBALTA) PO SCH (08:54)
[2021-01-21] MEDS: BACLOFEN 10 MG TAB PO SCH (08:54)
[2021-01-21] MEDS: PREGABALIN 75 MG CAP(LYRICA) PO SCH (08:54)
[2021-01-21] MEDS: PHENYTOIN 100 MG/2 ML VIAL (J1165) IV SCH (08:55)
[2021-01-21] MEDS: POLYVINYL ALCOHOL OPHTH SOLN 15 ML(LIQUITEARS) OU SCH (08:55)
--- NOTE | 2021-01-21 10:46 | DS.PDOC ---
Discharge Summary General Date of Admission Jan 16, 2021 at 16:54 Date of Discharge 01/21/21 Discharge Summary PROCEDURES PERFORMED DURING STAY: [None]. ADMITTING DIAGNOSES: 1. Acute encephalopathy 2. Urinary tract infection secondary to chronic catheter in the setting of neurogenic bladder from progressive multiple sclerosis DISCHARGE DIAGNOSES: 1. Acute metabolic encephalopathy secondary to Pseudomonas urinary tract infection due to chronic Orellana catheter COMPLICATIONS/CHIEF COMPLAINT: Acute Encephalopathy/Uti. HISTORY OF PRESENT ILLNESS: Meghan admitting attendings H&P: 55-year-old female with primary progressive multiple sclerosis, wheelchair bound, neurogenic bladder with recurrent urinary tract infection with E faecalis, Pseudomonas, Escherichia coli, chroniccatheter, neurogenic bowel, bilateral hydronephrosis, urinary diversion, enterostomy, COPD, hypertension, torticollis, pseudobulbar affect, paresthesias, B12 deficiency, chronic kidney disease stage III, migraines, obesity, anxiety, depression, chronic insomnia, was recently discharged from [facility] where she was treated for acute on chronic renal failure, urinary tract infection and bilateral hydronephrosis pr esents again today with altered mental status. According to the , patient was increasingly confused throughout the night complaining of 5 out of 10 pain at all times all over, especially her back and had trouble swallowing this morning unable to give pills. Patient has a port in the right anterior chest, but denied any fever home. She was grimacing and shaking at home and was brought into the hospital today for further evaluation. Patient was found to have a fever of 104. Coronavirus Negative. Negative CT chest, CT abdomen and pelvis, bilateral hydronephrosis, mild. No other acute intra-abdominal pathology. says patient has been constipated, has not had any bowel move ment since being home, no bright red blood per rectum, melena, black tarry stools. No hematemesis or coffee-ground emesis. Hospitalist was asked to admit for urinary tract infection and evaluation of anemia. HOSPITAL COURSE: Patient was admitted with acute metabolic encephalopathy suspected to be secondary to polypharmacy as well as urinary tract infection from pseudomonas due to her chronic indwelling Orellana catheter. Patient was treated with IV meropenem for 5 days in the hospital and 5 additional days were arranged to be completed at home with home health services. Patient's acute encephalopathy had resolved at time of discharge she was a and O 3 and was feeling much better. Patient's blood culture was positive for Pseudomonas as well as her urine both sensitive to meropenem. DISCHARGE MEDICATIONS: Please see below. ALLERGIES: Please see below. PHYSICAL EXAMINATION ON DISCHARGE: VITAL SIGNS: Please see below. Patient appeared well was not in any distress she was alert and oriented 3 at bedside. Heart sounds were regular no murmurs appreciated Lungs were clear to auscultation bilaterally without wheezes or crackles Dependent lower extremity edema Abdomen was soft nondistended not tender to palpation LABORATORY DATA: Please see below. IMAGING: See chart PROGNOSIS: Fair ACTIVITY: [As tolerated]. DIET: Regular diet DISPOSITION: Home with home services DISCHARGE INSTRUCTIONS: Please follow up with your primary care physician within 1 week from discharge. If you do not have one, please follow up with us to schedule an appointment. Please keep all of your follow up appointments. Please call central to book your appointments with hospital specialists. Please take all your medications as prescribed. Please call/come to Clinic or go to the Emergency Department if - Temp >101, intractable Nausea/Vomiting, Diarrhea, Mouth sores, Headaches, Altered mental status, Seizures, sudden onset of swelling, bleeding, shortness of breath or chest pain. ITEMS TO FOLLOWUP ON ON OUTPATIENT: 1. Follow-up with primary care physician within 3-5 days of discharge DISCHARGE CONDITION: [Stable]. TIME SPENT ON DISCHARGE: 40 minutes. Vital Signs/I&Os Vital Signs Date Time Temp Pulse Resp B/P (MAP) Pulse Ox O2 Delivery O2 Flow Rate FiO2 01/21/21 06:00 98.2 94 18 123/73 (90) 96 Room Air I&O- Last 24 Hours up to 6 AM 01/21/21 06:00 Intake Total 4210 ml Output Total 2400 ml Balance 1810 ml Laboratory Data Labs 24H Laboratory Tests 2 01/21/21 05:47: Immature Granulocyte % (Auto) 0.8, Neutrophils (%) (Auto) 82.9H, Lymphocytes (%) (Auto) 5.8L, Monocytes (%) (Auto) 6.2, Eosinophils (%) (Auto) 4.0H, Basophils (%) (Auto) 0.3, Neutrophils # (Auto) 6.2, Lymphocytes # (Auto) 0.4L, Monocytes # (Auto) 0.5, Eosinophils # (Auto) 0.3, Basophils # (Auto) 0.0, Nucleated Red Blood Cells % (auto) 0.0, Anion Gap 11, Glomerular Filtration Rate 39.6L, Calcium Level 7.8L CBC/BMP Laboratory Tests 01/21/21 05:47 Microbiology Microbiology 01/20/21 Stool Occult Blood (VANDANA) - Final, Complete 01/16/21 Respiratory Virus Panel (PCR) (VANDANA) - Final, Complete 01/16/21 Blood Culture - Preliminary, Resulted No Growth after 72 hours. All specime... 01/16/21 Urine Culture - Final, Complete Pseudomonas Aeruginosa 01/16/21 Blood Culture - Final, Complete Pseudomonas Aeruginosa Discharge Medications Scheduled Acyclovir (Acyclovir) 400 Mg Tab, 400 MG PO BID, (Reported) Amantadine HCl (Amantadine) 100 Mg Tablet, 100 MG PO BID, (Reported) Aripiprazole (Aripiprazole) 2 Mg Tablet, 2 MG PO QHS, (Reported) Aspirin (Ecotrin) 81 Mg Tablet.dr, 81 MG PO QHS, (Reported) Atorvastatin Calcium (Atorvastatin Calcium) 40 Mg Tablet, 40 MG PO DAILY, (Reported) Baclofen (Baclofen) 20 Mg Tablet, 40 MG PO BID, (Reported) Clonazepam (Clonazepam) 1 Mg Tab, 1 MG PO QHS, (Reported) Duloxetine Hcl (Duloxetine HCl) 60 Mg Capsule.dr, 60 MG PO BID, (Reported) Ergocalciferol (Vitamin D2) (Vitamin D2) 50,000 Units Cap, 50,000 UNITS PO 1XWK, (Reported) FRIDAYS Fosfomycin Tromethamine (Fosfomycin Tromethamine) 3 Gram Packet, 3 GM PO QWEEK, (Reported) FRIDAYS Hydroxyzine HCl (Hydroxyzine HCl) 50 Mg Tablet, 50 MG PO BID, (Reported) Levetiracetam (Keppra) 500 Mg Tablet, 500 MG PO BID, (Reported) Levothyroxine Sodium (Levothyroxine Sodium) 50 Mcg Tablet, 50 MCG PO QAM, (Reported) 30 MINUTES BEFORE BREAKFAST Magnesium Oxide (Magnesium) 500 Mg Capsule, 500 MG PO QHS, (Reported) Melatonin (Melatonin) 10 Mg Capsule, 10 MG PO QHS, (Reported) Meloxicam (Meloxicam) 15 Mg Tablet, 15 MG PO DAILY, (Reported) Pantoprazole Sodium (Pantoprazole Sodium) 40 Mg Tablet.dr, 40 MG PO BID, (Reported) Phenytoin Sodium Extended (Phenytoin Sodium Extended) 100 Mg Capsule, 400 MG PO QHS, (Reported) Potassium Chloride (Potassium Chloride) 10 Meq Tab.er.prt, 10 MEQ PO DAILY, (Reported) Pregabalin (Lyrica) 300 Mg Capsule, 300 MG PO BID, (Reported) Sennosides/Docusate Sodium (Senokot-S Tablet) 1 Each Tablet, 1 TAB PO QHS, (Reported) Scheduled PRN Albuterol Sulfate (Ventolin Hfa) 108 Mcg/Act Aer, 2 PUFFS INH Q4H PRN for SHORTNESS OF BREATH, (Reported) Mometasone Furoate (Asmanex Hfa) 100 Mcg/Act Hfa.aer.ad, 1 PUFF INH BID PRN for ASTHMA SYMPTOMS, (Reported) Promethazine HCl (Promethazine HCl) 25 Mg Tablet, 25 MG PO Q4H PRN for NAUSEA OR VOMITING, (Reported) FOR NAUSEA RELATED TO MIGRAINES Allergies Coded Allergies: Cephalosporins (Verified Allergy, Intermediate, rash, 12/27/19) Sulfa (Sulfonamide Antibiotics) (Verified Allergy, Mild, itchy, 12/27/19) oxycodone (Verified Allergy, Mild, itchy, 12/27/19) hydrocodone (Verified Adverse Reaction, Intermediate, chest pain, 12/27/19) TC POOLE MD Jan 21, 2021 10:46
== END 2021-01-21 12:35 | disposition home health service (06) | DRG 698 ==
LOC: M ED 12:15 → EDBD 12:15 → M ED INP 16:54 → M MS5PR 18:47
PROVIDERS: ADMIT General Practice; ATTEND Family Medicine
PROC: 02HV33Z Insertion of Infusion Device into Superior Vena Cava, Percutaneous Approach (ICD-10-PCS; principal; 2021-01-20 16:00)
DX: T83.511A Infection and inflammatory reaction due to indwelling urethral catheter, initial encounter (principal); A41.52 Sepsis due to Pseudomonas; G93.41 Metabolic encephalopathy; Z94.84 Stem cells transplant status; N18.30 Chronic kidney disease, stage 3 unspecified; G35 Multiple sclerosis; J44.9 Chronic obstructive pulmonary disease, unspecified; I12.9 Hypertensive chronic kidney disease with stage 1 through stage 4 chronic kidney disease, or unspecified chronic kidney disease; B96.5 Pseudomonas (aeruginosa) (mallei) (pseudomallei) as the cause of diseases classified elsewhere; N31.9 Neuromuscular dysfunction of bladder, unspecified; G43.909 Migraine, unspecified, not intractable, without status migrainosus; E66.9 Obesity, unspecified; E53.8 Deficiency of other specified B group vitamins; F41.9 Anxiety disorder, unspecified; F32.9 Major depressive disorder, single episode, unspecified; Y84.6 Urinary catheterization as the cause of abnormal reaction of the patient, or of later complication, without mention of misadventure at the time of the procedure; Z79.899 Other long term (current) drug therapy; Z79.82 Long term (current) use of aspirin; Z88.2 Allergy status to sulfonamides; Z88.5 Allergy status to narcotic agent; Z88.8 Allergy status to other drugs, medicaments and biological substances; N39.0 Urinary tract infection, site not specified

== ENCOUNTER 2021-02-02 13:31 | Inpatient (IN) | payer MEDICARE, BC, OTHER, MEDICAID ==
[~2021-02-02] VITALS: Ht 154.9 cm; Wt 95.5 kg
[~2021-02-02 13:31] MED LIST changes: -AMIT10TA PO; +AMIT10TA7 PO
[2021-02-02] MEDS ORDERED: NS 1,000 ML IV ONE (13:45)
[2021-02-02] MEDS ORDERED: ACETAMINOPHEN 650 MG SUPP PR ONE (13:45)
[2021-02-02] MEDS ORDERED: MEROPENEM INJ 1 GM in IV 1 EA IV ONE (14:20)
[2021-02-02 14:25] LABS: BASO % 0.2 % (0.0-1.0); EOS # 0.1 10^3/uL (0.0-0.5); EOS % 0.6 % (0.0-3.0); HEMATOCRIT 30.7 % (36.0-47.0); HEMOGLOBIN 9.4 g/dl (12.0-15.5); LYMPH # 0.7 10^3/uL (1.5-5.0); LYMPH % 4.4 % (24.0-44.0); MEAN CORPUSCULAR HEMOGLOBIN 25.8 pg (27.0-33.0); MEAN CORPUSCULAR HGB CONC 30.6 g/dl (32.0-36.5); MEAN CORPUSCULAR VOLUME 84.3 fl (80.0-96.0); MONO # 1.1 10^3/uL (0.0-0.8); MONO % 7.1 % (2.0-8.0); NEUTROPHILS # 13.3 10^3/uL (1.5-8.5); NEUTROPHILS % 86.7 % (36.0-66.0); PLATELET COUNT, AUTOMATED 266 10^3/uL (150-450); RED BLOOD COUNT 3.64 10^6/uL (4.00-5.40); WHITE BLOOD COUNT 15.3 10^3/uL (4.0-10.0)
[2021-02-02] MEDS ORDERED: NS 2,100 ML in IV 1 EA IV ONE (14:25)
[2021-02-02 14:51] LABS: FREE T4 1.14 NG/DL (0.76-1.46); PHENYTOIN (DILANTIN) 4.7 UG/ML (10.0-20.0)
--- NOTE | 2021-02-02 14:55 | REP ---
INDICATION: Altered Mental Status COMPARISON: 01/16/2021 TECHNIQUE: Portable AP view of the chest FINDINGS: Examination is limited by portable technique, underpenetration and poor inspiratory effort. Mediastinum and cardiac silhouette are relatively stable. [id number] again identified with tip in the right atrium. Subtle left lower lobe opacity cannot be excluded. No effusion. No pneumothorax. Skeletal structures are intact. IMPRESSION: Significantly limited examination. Cannot exclude small subtle left lower lobe infiltrate. <Electronically signed by Efe Tovar > 02/02/21 [id number]
[2021-02-02 15:04] LABS: ACETAMINOPHEN LEVEL < 2.0 UG/ML (10.0-30.0); ALBUMIN 2.6 GM/DL (3.2-5.2); ALT/SGPT 14 U/L (12-78); BILIRUBIN,DIRECT 0.2 MG/DL (0.0-0.2); BILIRUBIN,TOTAL 0.4 MG/DL (0.2-1.0); BLOOD UREA NITROGEN 40 MG/DL (7-18); CALCIUM LEVEL 8.3 MG/DL (8.5-10.1); CARBON DIOXIDE LEVEL 24 MEQ/L (21-32); CHLORIDE LEVEL 112 MEQ/L (98-107); CK-MB VALUE MASS < 1.0 NG/ML (<3.6); CPK CREATINE PHOSPHOKINASE 18 U/L (26-192); CREATININE FOR GFR 4.39 MG/DL (0.55-1.30); ETHYL ALCOHOL (ETHANOL) < 0.003 % (0.000-0.010); GLOMERULAR FILTRATION RATE 11.2 (>51); GLUCOSE, FASTING 95 MG/DL (70-100); MB/CK RELATIVE INDEX 5.56 (< OR =4); POTASSIUM SERUM 6.7 MEQ/L (3.5-5.1); SALICYLATE LEVEL < 1.7 MG/DL (5.0-30.0); SODIUM LEVEL 142 MEQ/L (136-145); THYROID STIMULATING HORMONE 0.975 uIU/ML (0.358-3.740); TOTAL PROTEIN 6.2 GM/DL (6.4-8.2); TROPONIN I < 0.02 NG/ML (< 0.10)
[2021-02-02] MEDS ORDERED: SODIUM BICARBONATE 8.4% INJ 50 ML SYRINGE IV STA (15:07)
[2021-02-02] MEDS ORDERED: IPRATROPIUM 0.5MG/ALBUTEROL 2.5MG INH SOL UD 3ML (DUONEB) NEB ONE (15:10)
[2021-02-02] MEDS ORDERED: CALCIUM GLUCONATE 1,000 MG in D5W MINI-BAG PLUS 100 ML IV ONE (15:10)
[2021-02-02] MEDS ORDERED: HumuLIN R (REGULAR) INSULIN (NovoLIN R) **100U/ML** PER UNIT IV ONE (15:10)
[2021-02-02] MEDS ORDERED: DEXTROSE 50% 50 ML SYRINGE IV STA (15:24)
[2021-02-02 15:29] LABS: AMPHETAMINES LEVEL URINE NEGATIVE (NEGATIVE); BARBITURATES URINE NEGATIVE (NEGATIVE); BENZODIAZEPINES URINE NEGATIVE (NEGATIVE); CANNABINOIDS URINE NEGATIVE (NEGATIVE); COCAINE METABOLITE URINE NEGATIVE (NEGATIVE); METHADONE URINE NEGATIVE (NEGATIVE); OPIATES URINE NEGATIVE (NEGATIVE); PHENCYCLIDINE URINE NEGATIVE (NEGATIVE)
[2021-02-02] MEDS: SOD POLYSTYRENE SULFONATE SUSP 15 GM/60 ML UD PO ONE ×2 (15:32→15:50)
--- NOTE | 2021-02-02 15:46 | REP ---
INDICATION: Altered Mental Status COMPARISON: 12/18/2020 TECHNIQUE: Axial noncontrast images from the skull base to the thoracic inlet with coronal reformations. This CT examination was performed using the following dose reduction techniques: Automated exposure control, adjustment of mA and/or kv according to the patient's size, and use of iterative reconstruction technique. FINDINGS: Age-related atrophy and microvascular ischemic changes are appreciated. The ventricles and sulci are symmetric. Chirinos-white differentiation is maintained. There is no evidence for acute intracranial hemorrhage, mass/mass effect, pathology or infarction. No extra-axial fluid collection. Calvarium is intact. Paranasal sinuses and mastoid air cells are clear. IMPRESSION: Age related atrophy and microvascular ischemic changes. No acute intracranial hemorrhage, infarction, or mass/mass effect. <Electronically signed by Efe Tovar > 02/02/21 [id number]
--- NOTE | 2021-02-02 15:52 | REP ---
INDICATION: fever, hx hydronephrosis in prior COMPARISON: 01/16/2021 TECHNIQUE: Axial noncontrast images from the thoracic inlet to the upper abdomen with coronal and sagittal reformations. This CT examination was performed using the following dose reduction techniques: Automated exposure control, adjustment of mA and/or kv according to the patient's size, and use of iterative reconstruction technique. FINDINGS: Bilateral lung allison are relatively well aerated. Very subtle right basilar airspace disease cannot be excluded. No further significant consolidation. No effusion. No pneumothorax. Tracheobronchial tree is patent. Mediastinum demonstrates relatively normal thoracic aorta, pulmonary vasculature, and heart/pericardium. No adenopathy. [id number] identified with tip in the SVC. Nasogastric tube extends into the stomach. Surrounding musculoskeletal structures are intact. IMPRESSION: 1. Very subtle right basilar airspace disease may reflect an acute or resolving focus of infiltrate/atelectasis. 2. No further acute mediastinal or pleuroparenchymal process appreciated. <Electronically signed by Efe Tovar > 02/02/21 [id number]
[2021-02-02] MEDS ORDERED: PHENYTOIN INJection 1,000 MG in NS 100 ML IV ONE (16:00)
--- NOTE | 2021-02-02 16:06 | REP ---
INDICATION: fever, hx hydronephrosis in prior COMPARISON: None TECHNIQUE: Axial noncontrast images from the lung bases to the pubic symphysis with coronal and sagittal reformations. This CT examination was performed using the following dose reduction techniques: Automated exposure control, adjustment of mA and/or kv according to the patient's size, and use of iterative reconstruction technique. FINDINGS: Liver, spleen, pancreas, gallbladder, and bilateral adrenal glands are relatively stable/normal for noncontrast evaluation. Patient is again noted to be status post hysterectomy and bladder resection with stable bilateral perinephric stranding and bilateral hydroureteronephrosis extending toward a diverting ileal conduit and ileostomy via the right anterior abdominal wall. These findings are essentially unchanged compared to 01/16/2021. The distal ureters are relatively inseparable from large stable bilateral ovarian cystic lesions (right greater than left). The enteric system is without obstruction or acute inflammatory process. No ascites. No free air. No obvious intraperitoneal or retroperitoneal adenopathy. No obvious acute abdominopelvic mass lesion or drainable collection/abscess. Musculoskeletal structures demonstrate age-related changes without acute osseous abnormality. IMPRESSION: 1. Stable bilateral perinephric stranding and hydroureteronephrosis extending to a diverting ileal conduit and urostomy via the right anterior abdominal wall. These findings are unchanged as compared to 01/16/2021. 2. Stable complex ovarian cysts (right greater than left) are again identified and adjacent/inseparable from the distal bilateral ureters. 3. No new acute abdominopelvic pathology or process appreciated. <Electronically signed by Efe Tovar > 02/02/21 [id number]
--- NOTE | 2021-02-02 16:07 | REP ---
INDICATION: ngt placement COMPARISON: 02/02/2021 TECHNIQUE: Portable AP view of the chest FINDINGS: Catheter extends into the SVC/right atrium. Nasogastric tube courses below the left hemidiaphragm in satisfactory position. The mediastinum and cardiac silhouette are stable and within normal limits for portable technique. The lung allison are clear without acute consolidation, effusion, or pneumothorax. Skeletal structures are intact. IMPRESSION: Nasogastric tube in satisfactory position. No acute cardiopulmonary process appreciated. <Electronically signed by Efe Tovar > 02/02/21 [id number]
[2021-02-02 17:13] LABS: CALCIUM LEVEL 7.9 MG/DL (8.5-10.1); CREATININE FOR GFR 4.33 MG/DL (0.55-1.30); GLOMERULAR FILTRATION RATE 11.4 (>51); POTASSIUM SERUM 5.7 MEQ/L (3.5-5.1)
[2021-02-02] MEDS ORDERED: MAALOX 30 ML SUSP *UDC PO PRN (17:35)
[2021-02-02] MEDS ORDERED: MOM 30ML SUSPENSION UDC PO PRN (17:35)
[2021-02-02] MEDS ORDERED: ACETAMINOPHEN TAB 650MG DOSE (2X325MG) PO PRN (17:35)
[2021-02-02 19:25] VITALS: BP 139/75
--- NOTE | 2021-02-02 19:42 | ECGEPIP ---
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
--- NOTE | 2021-02-02 19:54 | HPEPDOC ---
[facility] Medical History & Physical Date of Admission Feb 02, 2021 Date of Service: Feb 02, 2021 History and Physical CHIEF COMPLAINT: unresponsive HISTORY OF PRESENT ILLNESS: 55 yo F with a hx of primary progressive MS, wheelc hair bound, neurogenic bladder s/p cystectomy with diverting ileal conduit, bilateral hydronephrosis 2/2 bilateral obstructing ovarian masses, recurrent UTI (most recently pseudomonas), COPD, HTN, CKD III, rest as below. Was found to be unresponsive on floor of their home by her . Patient was feeling well prior to this, and her only complaint was of abdominal discomfort. She had seen her urology Dr. Everett in clinic on 01/03/21. Per , she has not had any PO intake since 5 om on 02/01/21. He reports her having a seizure with tonic clonic activity during the time she became unresponsive. Ambulance was called at noon today, and on arrival patient was obtunded, GCS 8. She was saturating well as was evidenced by two separate ABGs which showed no acidosis. Labs reviewed. WBC 15.3. hgb 9.4. Na+ 142. K+ 6.7. BUN 40. Cr 4.39. ALP 325. Trop < 0.02. TSH 0.975. FT4 1.14. UA+ nitrate, LE, pyuria, WBCs. Urine and blood cultures sent. Given meropenem based on prior urine C&S positive for pseudomonas and sens to meropenem. Patient will be admitted to ICU for management of sepsis 2/2 UTI under hospitalist service. PAST MEDICAL HISTORY: primary progressive multiple sclerosis, wheelchair bound, neurogenic bladder with recurrent urinary tract infection with E faecalis, Pseudomonas, Escherichia coli, neurogenic bowel, bilateral hydronephrosis, urinary diversion, enterostomy, COPD, hypertension, torticollis, pseudobulbar affect, paresthesias, B12 deficiency, chronic kidney disease stage III, migraines, obesity, anxiety, depression, chronic insomnia, epilepsy, cystectomy with urostomy. Microcytic anemia, vitamin B12 deficiency, anxiety, depression, hepatic steatosis PAST SURGICAL HISTORY: bilateral breast reduction, bilateral wrist surgery, tubal ligation, resection basal cell carcinoma, wrist surgery, hysterectomy,urinary diversion, enterostomy SOCIAL HISTORY: ., No alcohol, recreational drug use, alcohol use FAMILY HISTORY: reviewed chart, no contributory hx noted ALLERGIES: Please see below. REVIEW OF SYSTEMS: unable to perform ROS as patient is unresponsive. HOME MEDICATIONS: Please see below. PHYSICAL EXAMINATION: VITAL SIGNS: please see below General: unresponsive in bed. saturating at 95% at 1L. HEENT: pupils 3 mm, sluggish to light. symmetrical Neck: supple, normal ROM, no JVD Respiratory: lungs CTAB, no wheeze, no rales, no crackles CVS: RRR, normal S1, S2, no murmurs Abdo: soft, no masses, no hepatosplenomegaly, BS+, no rebound tenderness Extremities: no edema, pulses 2+ MSK: no joint deformities, normal ROM Neuro: unable to complete neuro exam as patient GCS is 8. LABORATORY DATA: See below. IMAGING: CT abdo pelvis wo contrast (02/02/21): 1. Stable bilateral perinephric stranding and hydroureteronephrosis extending to a diverting ileal conduit and urostomy via the right anterior abdominal wall. T hese findings are unchanged as compared to 01/16/2021. 2. Stable complex ovarian cysts (right greater than left) are again identified and adjacent/inseparable from the distal bilateral ureters. 3. No new acute abdominopelvic pathology or process appreciated. CT head (02/02/21): Age related atrophy and microvascular ischemic changes. No acute intracranial hemorrhage, infarction, or mass/mass effect. CXR (02/02/21): Significantly limited examination. Cannot exclude small subtle left lower lobe infiltrate. CT chest wo contrast (02/02/21): 1. Very subtle right basilar airspace disease may reflect an acute or resolvin g focus of infiltrate/atelectasis. 2. No further acute mediastinal or pleuroparenchymal process appreciated. MICROBIOLOGY: Please see below. ASSESSMENT: 55 yo F with a hx of primary progressive MS, wheelchair bound, neurogenic bladder s/p cystectomy with diverting ileal conduit, bilateral hydron ephrosis 2/2 bilateral obstructing ovarian masses, recurrent UTI (most recently pseudomonas), COPD, HTN, CKD III, admitted for sepsis 2/2 UTI . PLAN: Acute metabolic encephalopathy - likely due to sepsis secondary to UTI vs chronic R chest port or possible seizure activity noted on video (shown by ) - received meropenem in ER. S/p IV NS boluses - blood and urine cultures pending - blood and urine cultures from 01/16/21 positive for pseudomonas sensitive to meropenem. Will continue. - will consult ID in am. Acute renal failure on chronic kidney disease stage III - GFR 11. Cr > 4. K 6.7 - Urine output increased s/p IV boluses - no acidosis noted on ABG x 2 - Nephrology consulted, d/w Dr. Blandon - will c/w IVF - monitor BMP bilateral hydronephrosis secondary to bilateral ovarian masses, s/p cystectomy and ileal conduit (3 years ago) - setting of sepsis, likely 2/2 UTI - consulted urology, d/w Dr. Everett - Patient requires bilateral percutaneous nephrostomy tubes - catheter in stoma was replaced in clinic on 01/31/[address] Everett, and is draining urine appropriately, and conduit appears normal on CT - per Dr. Everett, no other urology intervention at this time until patient is stabilized - further intervention to be done in [place] for stomal stenosis and bilateral ovarian masses causing hydronephrosis - i discussed the possibility of transfering the pateint to an academic center in [place] where bilateral percutaneous nephrostomy tubes this evening with Dr. Chirinos. She felt that without intubating the patient it would an unsafe DC. - will plan to speak to Dr. Perales first thing in am, if placing tubes is not possible will transfer [facility]. Epilepsy/tonic clonic seizure on 02/01/21 - showed video of patient's sizure - takes keppra 500 mg BID, phenytoin 500 mg qhs - will check keppra level. phenytoin level low in ER - d/w Dr. Burnett, to change keppra to 500 mg daily while her renal function recovered - change phenytoin to 200 mg TID IV Anemia -Hgb 9.4, improved from prior - trend CBC daily - transfuse for Hgb < 8 Primary progressive multiple sclerosis, wheelchair bound, neurogenic bladder - Follows with a neurologist in [place] at [facility]. - had MRI in 01/2021 without acute changes - neurology consulted for seizure disorder - holding amantadine, Neurogenic bowel -Chronic COPD, compensated Hx of Hypertension - will hold antihypertensives in setting of sepsis torticollis, pseudobulbar affect -Chronic B12 deficiency -Supplement migraines, -No complaints obesity, -Complicating care anxiety, depression -Chronic chronic insomnia -PRN MED Vital Signs Vital Signs Date Time Temp Pulse Resp B/P (MAP) Pulse Ox O2 Delivery O2 Flow Rate FiO2 02/02/21 18:31 109 94 02/02/21 18:15 24 97/52 (67) Nasal Cannula 2.0 02/02/21 18:00 102.0 Laboratory Data Labs 24H Laboratory Tests 2 02/02/21 13:46: Immature Granulocyte % (Auto) 1.0, Neutrophils (%) (Auto) 86.7H, Lymphocytes (%) (Auto) 4.4L, Monocytes (%) (Auto) 7.1, Eosinophils (%) (Auto) 0.6, Basophils (%) (Auto) 0.2, Neutrophils # (Auto) 13.3H, Lymphocytes # (Auto) 0.7L, Monocytes # (Auto) 1.1H, Eosinophils # (Auto) 0.1, Basophils # (Auto) 0.0, Nucleated Red Blood Cells % (auto) 0.0, Urine Color YELLOW, Urine Appearance TURBIDH, Urine pH 7.0, Urine Specific [place] 1.008, Urine Protein 2+H, Urine Glucose (UA) NEGATIVE, Urine Ketones NEGATIVE, Urine Blood 2+H, Urine Nitrite POSITIVEH, Urine Bilirubin NEGATIVE, Urine Urobilinogen 0.2, Urine Leukocyte Esterase 2+H, Urine WBC (Auto) 153H, Urine RBC (Auto) 125H, Urine Hyaline Casts (Auto) 0, Urin e Bacteria (Auto) 1+H, Urine Squamous Epithelial Cells 0, Urine Amorphous Sediment SMALLH, Urine Mucus (Auto) SMALL, Urine Sperm (Auto) , Anion Gap 6L, Glomerular Filtration Rate 11.2L, Lactic Acid Level 0.8, Calcium Level 8.3L, Total Bilirubin 0.4, Direct Bilirubin 0.2, Aspartate Amino Transf (AST/SGOT) 15, Alanine Aminotransferase (ALT/SGPT) 14, Alkaline Phosphatase 325H, Ammonia 21, Total Creatine Kinase 18L, Creatine Kinase MB < 1.0, Creatine Kinase MB Relative Index 5.56H, Troponin I < 0.02, Total Protein 6.2L, Albumin 2.6L, Albumin/Globulin Ratio 0.7L, Thyroid Stimulating Hormone (TSH) 0.975, Free Thyroxine 1.14, Salicylates Level < 1.7L, Urine Opiates Screen NEGATIVE, Urine Methadone Screen NEGATIVE, Acetaminophen Level < 2.0L, Urine Barbiturates Screen NEGATIVE, Phenytoin (Dilantin) Level 4.7L, Urine Phencyclidine Screen NEGATIVE, Urine Amphetamines Screen NEGATIVE, Urine Benzodiazepines Screen NEGATIVE, Urine Cocaine Metabolite Screen NEGATIVE, Urine Cannabinoids Screen NEGATIVE, Ethyl Alcohol Level < 0.003 02/02/21 13:48: Bedside Glucose (Misc Panel) 88 02/02/21 13:50: POC pH (Misc Panel) 7.392, POC Base Excess (Misc Panel) -1.0, POC Saturated Percent O2 (Misc) 99H, POC pO2 (Misc Panel) 152.0H, POC pCO2 (Misc Panel) 40.1, POC HCO3 (Misc Panel) 24.4, POC Total CO2 (Misc Panel) 26.0 02/02/21 14:12: POC Prothrombin Time (Misc) 13.0, POC INR (Misc) 1.1 02/02/21 14:16: POC Glucose (Misc Panel) 102, POC Sodium (Misc Panel) 141, POC Potassium (Misc Panel) 6.5*H, POC Chloride (Misc Panel) 111H, POC Total CO2 (Misc Panel) 25.0, POC Blood Urea Nitrogen (Misc Panel 34H, POC Ionized Calcium (Misc Panel) 4.7, POC Creatinine (Misc Panel) 4.9H, POC Hematocrit (Misc Panel) 28.0L 02/02/21 16:11: POC Total CO2 (Misc Panel) 28.0H, POC pH (Misc Panel) 7.376, POC Base Excess (Misc Panel) 1.0, POC Saturated Percent O2 (Misc) 99H, POC pO2 (Misc Panel) 161.0H, POC pCO2 (Misc Panel) 44.8, POC HCO3 (Misc Panel) 26.3H 02/02/21 16:42: Anion Gap 6L, Glomerular Filtration Rate 11.4L, Calcium Level 7.9L 02/02/21 16:58: Bedside Glucose (Misc Panel) 146H 02/02/21 17:56: Bedside Glucose (Misc Panel) 117H CBC/BMP Laboratory Tests 02/02/21 13:46 02/02/21 16:42 Microbiology Microbiology 02/02/21 Blood Culture, Received Pending 02/02/21 Blood Culture, Received Pending 02/02/21 Urine Culture, Received Pending 02/02/21 Respiratory Virus Panel (PCR) (VANDANA) - Final, Complete Home Medications Scheduled Acyclovir (Acyclovir) 400 Mg Tab, 400 MG PO BID Amantadine HCl (Amantadine) 100 Mg Tablet, 100 MG PO BID Aspirin (Ecotrin) 81 Mg Tablet.dr, 81 MG PO QHS Atorvastatin Calcium (Atorvastatin Calcium) 40 Mg Tablet, 40 MG PO DAILY Clonazepam (Clonazepam) 1 Mg Tab, 1 MG PO QHS Duloxetine Hcl (Duloxetine HCl) 60 Mg Capsule.dr, 60 MG PO BID Ergocalciferol (Vitamin D2) (Vitamin D2) 50,000 Units Cap, 50,000 UNITS PO 1XWK FRI Fosfomycin Tromethamine (Fosfomycin Tromethamine) 3 Gram Packet, 3 GM PO QWEEK FRI Hydroxyzine HCl (Hydroxyzine HCl) 25 Mg Tablet, 1 TAB PO BID for anxiety L.acidoph/L.bulg/B.bif/S.therm (Rosie-Bid Caplet) 1 Each Tablet, 1 EA PO BIDWM Lactulose (Lactulose) 10 Gm/15 Ml Solution, 30 ML PO DAILY Levetiracetam (Keppra) 500 Mg Tablet, 500 MG PO BID Levothyroxine Sodium (Levothyroxine Sodium) 50 Mcg Tablet, 50 MCG PO QAM 30 MINUTES BEFORE BREAKFAST Magnesium Oxide (Magnesium) 500 Mg Capsule, 500 MG PO QHS Melatonin (Melatonin) 10 Mg Capsule, 10 MG PO QHS Meloxicam (Meloxicam) 15 Mg Tablet, 15 MG PO DAILY Pantoprazole Sodium (Pantoprazole Sodium) 40 Mg Tablet.dr, 40 MG PO BID Phenytoin Sodium Extended (Phenytek) 300 Mg Capsule, 2 CAP PO QHS Potassium Chloride (Potassium Chloride) 10 Meq Tab.er.prt, 10 MEQ PO DAILY Pregabalin (Lyrica) 300 Mg Capsule, 300 MG PO BID Sennosides/Docusate Sodium (Senokot-S Tablet) 1 Each Tablet, 1 TAB PO QHS Scheduled PRN Albuterol Sulfate (Ventolin Hfa) 108 Mcg/Act Aer, 2 PUFFS INH Q4H PRN for SHORTNESS OF BREATH Mometasone Furoate (Asmanex Hfa) 100 Mcg/Act Hfa.aer.ad, 1 PUFF INH BID PRN for ASTHMA SYMPTOMS Promethazine HCl (Promethazine HCl) 25 Mg Tablet, 25 MG PO Q4H PRN for NAUSEA OR VOMITING FOR NAUSEA RELATED TO MIGRAINES Allergies Coded Allergies: Cephalosporins (Verified Allergy, Intermediate, rash, 12/27/19) Sulfa (Sulfonamide Antibiotics) (Verified Allergy, Mild, itchy, 12/27/19) oxycodone (Verified Allergy, Mild, itchy, 12/27/19) hydrocodone (Verified Adverse Reaction, Intermediate, chest pain, 12/27/19) A-FIB/CHADSVASC A-FIB History Current/History of A-Fib/PAF?: No Current PO Anticoag Therapy: No MARIELLE WOODS MD Feb 02, 2021 19:54
[2021-02-02] MEDS ORDERED: ALBUTEROL 90 MCG/ACT 8GM HFA INHALER INH PRN (19:55)
--- NOTE | 2021-02-02 19:59 | CR.PDOC ---
General Date of Consultation: Feb 02, 2021 Referring Provider: MARIELLE WOODS MD Consultation REASON FOR CONSULTATION/CHIEF COMPLAINT: Ileal conduit with stomal stenosis, bilateral hydroureteronephrosis, septicemia, acute renal failure HISTORY OF PRESENT ILLNESS: Elise is a 55-year-old female with progressive multiple sclerosis was wheelchair bound and has a neurogenic bladder and ileal conduit who came into the hospital today unresponsive found to be in septicemia and acute renal failure. She has progressive multiple sclerosis and yesterday she stayed in bed all day and was not eating or drinking a lot but her thought that she would bounce back and that this is not uncommon after being at the doctor's office the day before. I actually saw her on 01/31/21 as a follow-up from her previous hospitalization where again she was found to have bilateral hydronephrosis and a nondraining ileal conduit with a stomal stenosis. Dr Andre saw her at that time and was able to dilate the stoma and place a catheter. The catheter at been in for 6 weeks so I changed this in the office and also did a dilation on 01/31/21. The catheter in the stoma had been draining well. A CT scan was repeated today 02/02/21 and still shows bilateral hydroureteronephrosis secondary to bilateral ovarian lesions adjacent to the distal ureters near the ileal anastomosis. The conduit appears to be intact and there is no stranding around it and a catheter is seen within. The catheter is draining now since the patient has received fluids but was not draining when she had become dehydrated yesterday. ALLERGIES: Please see below. HOME MEDICATIONS: Please see below. PAST MEDICAL HISTORY: -Aggressive multiple sclerosis -Neurogenic bladder with an ileal conduit with stomal stenosis -Seizure disorder -History of microcytic anemia -Chronic low back pain -Recurrent UTI and she sees Dr. Lobato PAST SURGICAL HISTORY: -Ileal conduit with -Hysterectomy -Breast reduction -Wrist surgery -Mohs surgery for basal cell carcinoma -Tubal ligation -Port placement for steroids and medications for her MS -EGD and colonoscopy -Stem cells transplant 02/15 FAMILY HISTORY: Father: Healthy Mother: Healthy Or other has a history of epilepsy SOCIAL HISTORY: She is and a former smoker. She quit recently. She does drink alcohol occasionally. She does use marijuana. REVIEW OF SYSTEMS: Patient is unresponsive so was difficult to get a review of systems but according to the yesterday she was just in bed very tired but this is not uncommon with her MS. But she was not drinking or eating very much. PHYSICAL EXAMINATION: VITAL SIGNS: Please see below. GENERAL APPEARANCE: Nonresponsive in an ICU bed looking very pale HEENT: NC/AT RESPIRATORY: Reg but breathing with some accessory muscles and tachypnic CARDIOVASCULAR: RRR ABDOMEN: Soft. Orellana catheter in stoma in RLQ draining cloudy yellow urine EXTREMITIES: Some bilateral edema. No cyanosis NEUROLOGICAL: Unresponsive PSYCHIATRIC: Unresponsive LABORATORY DATA: Please see below. ASSESSMENT/PLAN: -Acute renal failure and septicemia with bilateral hydroureteronephrosis in a patient who needs bilateral nephrostomy tubes ISSAC. I discussed transferring the patient where she could get bilateral nephrostomy tubes tonight versus waiting until the morning and by the time she gets transferred and taking care of it will probably be around the same timing so the is willing for her to stay here to have the tubes placed by Dr. Perales. She is not rn corrections tonight. -Ileal conduit with a stomal stenosis but now with a Orellana catheter in the conduit with an draining well and the CT scan does not show a distended conduit -CT scan of the abdomen and pelvis 02/02/21 is unchanged from 01/16/21 which shows stable bilateral perinephric stranding and hydroureteronephrosis extending to a diverting ileal conduit and urostomy with stable complex ovarian cyst identified adjacent and inseparable from the distal bilateral ureters. There is no new acute abdominal pelvic pathology or processes appreciated -Progressive multiple sclerosis and the patient wheelchair bound Once the patient is stabilized she will need to be seen in [place] to determine whether further surgical management should be done to possibly remove the ovarian cysts and possibly revise the distal ureters into the conduit. She also will need revision of the stoma. At least 70 minutes was spent today with greater than 50% of this in [id number] consultation. Vital Signs/I&O Vital Signs Date Time Temp Pulse Resp B/P (MAP) Pulse Ox O2 Delivery O2 Flow Rate FiO2 02/02/21 19:25 102.0 104 22 139/75 (96) 99 Nasal Cannula 1.0 Laboratory Data Labs 24H Laboratory Tests 2 02/02/21 13:46: Immature Granulocyte % (Auto) 1.0, Neutrophils (%) (Auto) 86.7H, Lymphocytes (%) (Auto) 4.4L, Monocytes (%) (Auto) 7.1, Eosinophils (%) (Auto) 0.6, Basophils (%) (Auto) 0.2, Neutrophils # (Auto) 13.3H, Lymphocytes # (Auto) 0.7L, Monocytes # (Auto) 1.1H, Eosinophils # (Auto) 0.1, Basophils # (Auto) 0.0, Nucleated Red Blood Cells % (auto) 0.0, Urine Color YELLOW, Urine Appearance TURBIDH, Urine pH 7.0, Urine Specific [place] 1.008, Urine Protein 2+H, Urine Glucose (UA) NEGATIVE, Urine Ketones NEGATIVE, Urine Blood 2+H, Urine Nitrite POSITIVEH, Urine Bilirubin NEGATIVE, Urine Urobilinogen 0.2, Urine Leukocyte Esterase 2+H, Urine WBC (Auto) 153H, Urine RBC (Auto) 125H, Urine Hyaline Casts (Auto) 0, Urine Bacteria (Auto) 1+H, Urine Squamous Epithelial Cells 0, Urine Amorphous Sediment SMALLH, Urine Mucus (Auto) SMALL, Urine Sperm (Auto) , Anion Gap 6L, Glomerular Filtration Rate 11.2L, Lactic Acid Level 0.8, Calcium Level 8.3L, Total Bilirubin 0.4, Direct Bilirubin 0.2, Aspartate Amino Transf (AST/SGOT) 15, Alanine Aminotransferase (ALT/SGPT) 14, Alkaline Phosphatase 325H, Ammonia 21, Total Creatine Kinase 18L, Creatine Kinase MB < 1.0, Creatine Kinase MB Relative Index 5.56H, Troponin I < 0.02, Total Protein 6.2L, Albumin 2.6L, Albumin/Globulin Ratio 0.7L, Thyroid Stimulating Hormone (TSH) 0.975, Free Thyroxine 1.14, Salicylates Level < 1.7L, Urine Opiates Screen NEGATIVE, Urine Methadone Screen NEGATIVE, Acetaminophen Level < 2.0L, Urine Barbiturates Screen NEGATIVE, Phenytoin (Dilantin) Level 4.7L, Urine Phencyclidine Screen NEGATIVE, Urine Amphetamines Screen NEGATIVE, Urine Benzodiazepines Screen NEGATIVE, Urine Cocaine Metabolite Screen NEGATIVE, Urine Cannabinoids Screen NEGATIVE, Ethyl Alcohol Level < 0.003 02/02/21 13:48: Bedside Glucose (Misc Panel) 88 02/02/21 13:50: POC pH (Misc Panel) 7.392, POC Base Excess (Misc Panel) -1.0, POC Saturated Percent O2 (Misc) 99H, POC pO2 (Misc Panel) 152.0H, POC pCO2 (Misc Panel) 40.1, POC HCO3 (Misc Panel) 24.4, POC Total CO2 (Misc Panel) 26.0 02/02/21 14:12: POC Prothrombin Time (Misc) 13.0, POC INR (Misc) 1.1 02/02/21 14:16: POC Glucose (Misc Panel) 102, POC Sodium (Misc Panel) 141, POC Potassium (Misc Panel) 6.5*H, POC Chloride (Misc Panel) 111H, POC Total CO2 (Misc Panel) 25.0, POC Blood Urea Nitrogen (Misc Panel 34H, POC Ionized Calcium (Misc Panel) 4.7, POC Creatinine (Misc Panel) 4.9H, POC Hematocrit (Misc Panel) 28.0L 02/02/21 16:11: POC Total CO2 (Misc Panel) 28.0H, POC pH (Misc Panel) 7.376, POC Base Excess (Misc Panel) 1.0, POC Saturated Percent O2 (Misc) 99H, POC pO2 (Misc Panel) 161.0H, POC pCO2 (Misc Panel) 44.8, POC HCO3 (Misc Panel) 26.3H 02/02/21 16:42: Anion Gap 6L, Glomerular Filtration Rate 11.4L, Calcium Level 7.9L 02/02/21 16:58: Bedside Glucose (Misc Panel) 146H 02/02/21 17:56: Bedside Glucose (Misc Panel) 117H CBC/BMP Laboratory Tests 02/02/21 13:46 02/02/21 16:42 Microbiology Microbiology 02/02/21 Blood Culture, Received Pending 02/02/21 Blood Culture, Received Pending 02/02/21 Urine Culture, Received Pending 02/02/21 Respiratory Virus Panel (PCR) (VANDANA) - Final, Complete Allergies Coded Allergies: Cephalosporins (Verified Allergy, Intermediate, rash, 12/27/19) Sulfa (Sulfonamide Antibiotics) (Verified Allergy, Mild, itchy, 12/27/19) oxycodone (Verified Allergy, Mild, itchy, 12/27/19) hydrocodone (Verified Adverse Reaction, Intermediate, chest pain, 12/27/19) Home Medications Scheduled Acyclovir (Acyclovir) 400 Mg Tab, 400 MG PO BID, (Reported) Amantadine HCl (Amantadine) 100 Mg Tablet, 100 MG PO BID, (Reported) Aripiprazole (Aripiprazole) 2 Mg Tablet, 2 MG PO QHS, (Reported) Aspirin (Ecotrin) 81 Mg Tablet.dr, 81 MG PO QHS, (Reported) Atorvastatin Calcium (Atorvastatin Calcium) 40 Mg Tablet, 40 MG PO DAILY, (Reported) Baclofen (Baclofen) 20 Mg Tablet, 40 MG PO BID, (Reported) Clonazepam (Clonazepam) 1 Mg Tab, 1 MG PO QHS, (Reported) Duloxetine Hcl (Duloxetine HCl) 60 Mg Capsule.dr, 60 MG PO BID, (Reported) Ergocalciferol (Vitamin D2) (Vitamin D2) 50,000 Units Cap, 50,000 UNITS PO 1XWK, (Reported) FRIDAYS Fosfomycin Tromethamine (Fosfomycin Tromethamine) 3 Gram Packet, 3 GM PO QWEEK, (Reported) FRIDAYS Hydroxyzine HCl (Hydroxyzine HCl) 50 Mg Tablet, 50 MG PO BID, (Reported) Levetiracetam (Keppra) 500 Mg Tablet, 500 MG PO BID, (Reported) Levothyroxine Sodium (Levothyroxine Sodium) 50 Mcg Tablet, 50 MCG PO QAM, (Reported) 30 MINUTES BEFORE BREAKFAST Magnesium Oxide (Magnesium) 500 Mg Capsule, 500 MG PO QHS, (Reported) Melatonin (Melatonin) 10 Mg Capsule, 10 MG PO QHS, (Reported) Meloxicam (Meloxicam) 15 Mg Tablet, 15 MG PO DAILY, (Reported) Pantoprazole Sodium (Pantoprazole Sodium) 40 Mg Tablet.dr, 40 MG PO BID, (Reported) Phenytoin Sodium Extended (Phenytoin Sodium Extended) 100 Mg Capsule, 500 MG PO QHS, (Reported) Potassium Chloride (Potassium Chloride) 10 Meq Tab.er.prt, 10 MEQ PO DAILY, (Reported) Pregabalin (Lyrica) 300 Mg Capsule, 300 MG PO BID, (Reported) Sennosides/Docusate Sodium (Senokot-S Tablet) 1 Each Tablet, 1 TAB PO QHS, (Reported) Scheduled PRN Albuterol Sulfate (Ventolin Hfa) 108 Mcg/Act Aer, 2 PUFFS INH Q4H PRN for SHORTNESS OF BREATH, (Reported) Mometasone Furoate (Asmanex Hfa) 100 Mcg/Act Hfa.aer.ad, 1 PUFF INH BID PRN for ASTHMA SYMPTOMS, (Reported) Promethazine HCl (Promethazine HCl) 25 Mg Tablet, 25 MG PO Q4H PRN for NAUSEA OR VOMITING, (Reported) FOR NAUSEA RELATED TO MIGRAINES MARIBEL PEREZ MD Feb 02, 2021 19:59
[2021-02-02 20:00] VITALS: BP 117/88
[2021-02-02] MEDS ORDERED: PATIROMER SORBITEX CALCIUM 8.4 GM POWDER PACKET (VELTASSA) PO ONE (20:05)
[2021-02-02] MEDS ORDERED: NS 1,000 ML IV SCH (20:10)
[2021-02-02] MEDS ORDERED: HumuLIN R (REGULAR) INSULIN (NovoLIN R) **100U/ML** PER UNIT SC ONE (20:35)
[2021-02-02] MEDS ORDERED: DEXTROSE 50% 50 ML SYRINGE IV ONE (20:35)
[2021-02-02] MEDS ORDERED: HumuLIN R (REGULAR) INSULIN (NovoLIN R) **100U/ML** PER UNIT IV STA (20:42)
[2021-02-02] MEDS ORDERED: DOCUSATE SODIUM 100MG CAPSULE PO SCH (21:00)
[2021-02-02 21:23] LABS: CALCIUM LEVEL 8.8 MG/DL (8.5-10.1); CREATININE FOR GFR 4.14 MG/DL (0.55-1.30); POTASSIUM SERUM 5.8 MEQ/L (3.5-5.1)
[2021-02-02] MEDS: D5W/0.45% SODIUM CHLORIDE 1,000 ML IV SCH (21:48)
[2021-02-02] MEDS: HEPARIN SOD (PORCINE) 5000UNITS/ML 1ML VIAL/SYRINGE SC SCH (21:54)
[2021-02-02] MEDS: ASPIRIN 81 MG CHEW TABLET NG SCH (21:55)
[2021-02-02] MEDS: DOCUSATE SOD LIQ 100MG/10ML UDC NG SCH (21:55)
[2021-02-02] MEDS: ACETAMINOPHEN TAB 650MG DOSE (2X325MG) NG PRN (21:55)
[2021-02-03] VITALS (18 sets, daily range): BP systolic 105–158; BP diastolic 60–94
[2021-02-03] MEDS: MEROPENEM INJ 1 GM in IV 1 EA IV SCH ×3 (00:14→23:51)
[2021-02-03] MEDS: HEPARIN SOD (PORCINE) 5000UNITS/ML 1ML VIAL/SYRINGE SC SCH ×3 (05:10→21:26)
[2021-02-03] MEDS: LEVOTHYROXINE 50MCG TABLET (0.05MG) NG SCH (05:10)
[2021-02-03] MEDS: D5W/0.45% SODIUM CHLORIDE 1,000 ML IV SCH ×4 (05:11→21:56)
[2021-02-03] MEDS: PHENYTOIN INJ 250 MG/5 ML VIAL (J1165) IV SCH ×3 (05:11→21:55)
[2021-02-03 05:20] LABS: ALBUMIN 2.2 GM/DL (3.2-5.2); ALT/SGPT 12 U/L (12-78); BILIRUBIN,TOTAL 0.3 MG/DL (0.2-1.0); BLOOD UREA NITROGEN 35 MG/DL (7-18); CALCIUM LEVEL 8.7 MG/DL (8.5-10.1); CARBON DIOXIDE LEVEL 26 MEQ/L (21-32); CHLORIDE LEVEL 113 MEQ/L (98-107); CREATININE FOR GFR 3.61 MG/DL (0.55-1.30); GLUCOSE, FASTING 115 MG/DL (70-100); POTASSIUM SERUM 4.5 MEQ/L (3.5-5.1); SODIUM LEVEL 145 MEQ/L (136-145); TOTAL PROTEIN 6.5 GM/DL (6.4-8.2); TROPONIN I < 0.02 NG/ML (< 0.10)
[2021-02-03 07:32] LABS: BASO % 0.2 % (0.0-1.0); EOS # 0.2 10^3/uL (0.0-0.5); EOS % 1.4 % (0.0-3.0); HEMATOCRIT 29.3 % (36.0-47.0); HEMOGLOBIN 9.1 g/dl (12.0-15.5); LYMPH # 0.5 10^3/uL (1.5-5.0); LYMPH % 4.6 % (24.0-44.0); MEAN CORPUSCULAR HEMOGLOBIN 26.3 pg (27.0-33.0); MEAN CORPUSCULAR HGB CONC 31.1 g/dl (32.0-36.5); MEAN CORPUSCULAR VOLUME 84.7 fl (80.0-96.0); MONO # 0.9 10^3/uL (0.0-0.8); MONO % 8.1 % (2.0-8.0); NEUTROPHILS % 84.5 % (36.0-66.0); PLATELET COUNT, AUTOMATED 218 10^3/uL (150-450); RED BLOOD COUNT 3.46 10^6/uL (4.00-5.40); WHITE BLOOD COUNT 10.7 10^3/uL (4.0-10.0)
[2021-02-03 07:42] LABS: INR 1.14; PROTHROMBIN TIME 14.9 SECONDS (12.5-14.3)
[2021-02-03] MEDS: ATORVASTATIN 20 MG TAB NG SCH (08:15)
[2021-02-03] MEDS: levETIRAcetam 250MG TABLET (KEPPRA) NG SCH (08:15)
[2021-02-03] MEDS: PANTOPRAZOLE 40MG VIAL (C9113 PER 1) IV SCH (08:16)
[2021-02-03] MEDS: DOCUSATE SOD LIQ 100MG/10ML UDC NG SCH ×2 (08:16→21:25)
[2021-02-03] MEDS: ACETAMINOPHEN TAB 650MG DOSE (2X325MG) NG PRN ×3 (08:16→21:26)
[2021-02-03] MEDS ORDERED: CIPROFLOXACIN 400 MG in IV 1 EA IV ONE (09:30)
--- NOTE | 2021-02-03 09:40 | IRMSE ---
[facility] IR Moderate Sedation Eval. Date and Time Date: Feb 03, 2021 Time: 09:40 ASA Classification ASA Classification: III-Severe systemic dis. Mallampati Score: II NPO: Yes Obstructive Sleep Apnea: No Interval Plan: moderate sedation MAICOL CARDOZO MD Feb 03, 2021 09:40
[2021-02-03] MEDS ORDERED: diphenhydrAMINE 50MG/ML VIAL (J1200) As Ordered ONE (09:47)
[2021-02-03] MEDS ORDERED: fentaNYL 100 MCG/2 ML INJECTION (J3010) As Ordered ONE (09:48)
[2021-02-03] MEDS ORDERED: MIDAZOLAM INJ 2MG/2ML VIAL (J2250 PER 1MG) As Ordered ONE (09:48)
[2021-02-03] MEDS ORDERED: LIDOCAINE 1% MDV 20ML VIAL As Ordered ONE ×2 (09:49→10:44)
[2021-02-03] MEDS ORDERED: CIPROFLOXACIN/D5W 400 MG/200 ML BAG (J0744) As Ordered ONE (09:49)
[2021-02-03] MEDS ORDERED: ISOVUE-300 61% 50ML VIAL As Ordered ONE (09:49)
[2021-02-03] MEDS ORDERED: PROMETHAZINE INJ 25 MG/ML VIAL (J2550) As Ordered ONE (09:56)
--- NOTE | 2021-02-03 14:24 | IPNPDOC ---
Date Seen The patient was seen on 02/03/21. Progress Note SUBJECTIVE: Patient was seen and examined at bedside. No acute events overnight. Patient continues to be extremely somnolent with minimal response, however, doesn't open her eyes when called her name. She continues to spike fevers. Tmax 100.2.. Her urine output has improved as far. Her urine output is improving at 1.15 in upper Per hour. Her Orellana catheter from enterostomy tube is draining adequately. She is planned for bilateral nephrostomy tube placement today with Dr. Perales OBJECTIVE PHYSICAL EXAMINATION: VITAL SIGNS: please see below General: NAD, comfortable HEENT: PERRLA, EOMI, sclerae clear Neck: supple, normal ROM, no JVD Respiratory: lungs CTAB, no wheeze, no rales, no crackles CVS: RRR, normal S1, S2, no murmurs Abdo: Soft, nontender. Enterostomy tube draining into a Orellana. Extremities: no edema, pulses 2+ MSK: no joint deformities, normal ROM Neuro: She is obtunded, opens eyes only to be having name called. Psych: 0AAO x 0 LABORATORY DATA, IMAGING STUDIES, MICROBIOLOGY: Please see below. DVT prophylaxis ordered?: Teds. Heparin 5000 units every 8 hours subcutaneous. ASSESSMENT AND PLAN: 55 yo F with a hx of primary progressive MS, wheelchair bound, neurogenic bladder s/p cystectomy with diverting ileal conduit, bilateral hydronephrosis 2/2 bilateral obstructing ovarian masses, recurrent UTI (most recently pseudomonas), COPD, HTN, CKD III, admitted for sepsis 2/2 UTI, as well as metabolic encephalopathy. The setting of seizure/MS as well as sepsis. PROBLEMS: Acute metabolic encephalopathy - likely due to sepsis secondary to UTI vs chronic R chest port or possible seizure activity noted on video (shown by ) - received meropenem in ER. S/p IV NS boluses - blood cx prelim negative - pending urine cuture. - blood and urine cultures from 01/16/21 positive for pseudomonas sensitive to meropenem. - Meropenem Day #2. - ID consulted d/w Dr. Lobato. She is familiar with ptient. Acute renal failure on chronic kidney disease stage III - renal function improving, Cr - Urine output increased s/p IV boluses - no acidosis noted on ABG x 2 - Nephrology consulted, d/w Dr. Blandon - will c/w IVF - monitor BMP bilateral hydronephrosis secondary to bilateral ovarian masses, s/p cystectomy and ileal conduit (3 years ago) - setting of sepsis, likely 2/2 UTI - consulted urology, d/w Dr. Everett - Patient requires bilateral percutaneous nephrostomy tubes - catheter in stoma was replaced in clinic on 01/31/[address] Everett, and is draining urine appropriately, and conduit appears normal on CT - per Dr. Everett, no other urology intervention at this time until patient is stabilized - further intervention to be done in [place] for stomal stenosis and bilateral ovarian masses causing hydronephrosis - I spoke to urologist grounds person in office of Dr. Graves (specialist urologist at [facility] following pt) - Dr. Schaefer. Does not believe a revision is appropriate in setting of acute sepsis. Agrees with plan for bilateral nephrostomy tubes, management of sepsis. Once patient recovered, outpatient plan for revision. - s/p bilateral nephrostomy tubes placed by Dr. Perales on 02/03/21 - draining well Epilepsy/tonic clonic seizure on 02/01/21 - showed video of patient's sizure - takes keppra 500 mg BID, phenytoin 500 mg qhs - will check keppra level. phenytoin level low in ER - d/w Dr. Burnett, to change keppra to 500 mg daily while her renal function recovers - change phenytoin to 200 mg TID IV - D/w Dr. Morocho on 02/03/21. Obtain EEG. Check dilantin trough level - depending on EEG, if she continues to have seizure activity, will change meds - low seizure threshold given sepsis. Neurochecks. Anemia -Hgb 9.4, improved from prior - trend CBC daily - transfuse for Hgb < 8 Primary progressive multiple sclerosis, wheelchair bound, neurogenic bladder - Follows with a neurologist in [place] at [facility]. - had MRI in 01/2021 without acute changes - neurology consulted for seizure disorder - holding amantadine Neurogenic bowel -Chronic COPD, compensated Hx of Hypertension - will hold antihypertensives in setting of sepsis torticollis, pseudobulbar affect -Chronic B12 deficiency -Supplement migraines, -No complaints obesity, -Complicating care anxiety, depression -Chronic hronic insomnia -PRN MED Tube feeds: start on 02/03/21, with rate per dietary recommendations. Dispo: pending clinical improvement. I discussed the patient's progress with her , Joey Yang at [phone]. I answered all questions in detail. VS, I&O, 24H, Fishbone Vital Signs/I&O Vital Signs Date Time Temp Pulse Resp B/P (MAP) Pulse Ox O2 Delivery O2 Flow Rate FiO2 02/03/21 12:30 103 142/77 (98) 97 Room Air 02/03/21 12:25 99.5 22 02/03/21 11:25 2 I&O- Last 24 Hours up to 6 AM 02/03/21 06:00 Intake Total 2160 ml Output Total 4000 ml Balance -1840 ml Laboratory Data 24H LABS Laboratory Tests 2 02/02/21 16:11: POC pH (Misc Panel) 7.376, POC Base Excess (Misc Panel) 1.0, POC Saturated Percent O2 (Misc) 99H, POC pO2 (Misc Panel) 161.0H, POC pCO2 (Misc Panel) 44.8, POC HCO3 (Misc Panel) 26.3H, POC Total CO2 (Misc Panel) 28.0H 02/02/21 16:42: Anion Gap 6L, Glomerular Filtration Rate 11.4L, Calcium Level 7.9L 02/02/21 16:58: Bedside Glucose (Misc Panel) 146H 02/02/21 17:56: Bedside Glucose (Misc Panel) 117H 02/02/21 20:47: Ammonia 20 02/02/21 20:51: Anion Gap 6L, Glomerular Filtration Rate 12.0L, Calcium Level 8.8 02/03/21 01:55: Bedside Glucose (Misc Panel) 96 02/03/21 04:32: Anion Gap 6L, Glomerular Filtration Rate 14.0L, Calcium Level 8.7, Lactic Acid Level 1.1, Magnesium Level 2.0, Total Bilirubin 0.3, Aspartate Amino Transf (AST/SGOT) 11, Alanine Aminotransferase (ALT/SGPT) 12, Alkaline Phosphatase 264H, Troponin I < 0.02, Total Protein 6.5, Albumin 2.2L, Albumin/Globulin Ratio 0.5L 02/03/21 07:23: Immature Granulocyte % (Auto) 1.2, Neutrophils (%) (Auto) 84.5H, Lymphocytes (%) (Auto) 4.6L, Monocytes (%) (Auto) 8.1H, Eosinophils (%) (Auto) 1.4, Basophils (%) (Auto) 0.2, Neutrophils # (Auto) 9.0H, Lymphocytes # (Auto) 0.5L, Monocytes # (Auto) 0.9H, Eosinophils # (Auto) 0.2, Basophils # (Auto) 0.0, Nucleated Red Blood Cells % (auto) 0.0, Prothrombin Time 14.9H, Prothromb Time International Ratio 1.14 02/03/21 11:43: Lab Scanned Report Miscellaneous Lab CBC/BMP Laboratory Tests 02/02/21 16:42 02/02/21 20:51 02/03/21 04:32 02/03/21 07:23 Microbiology Microbiology 02/02/21 Blood Culture, Received Pending 02/02/21 Blood Culture, Received Pending 02/02/21 Blood Culture, Received Pending 02/02/21 Urine Culture, Received Pending 02/02/21 Respiratory Virus Panel (PCR) (VANDANA) - Final, Complete CHRISTINEVMARIELLE WATSON MD Feb 03, 2021 14:24
--- NOTE | 2021-02-03 15:43 | IPNPDOC ---
Text Note Date of Service The patient was seen on 02/03/21. NOTE Elise has gotten her bilateral nephrostomy tubes placed and we are still awaiting urine cultures. Her temperature overnight came down from 101 with a high of 99.5 and her white blood count came down to 10.7 from 15.3. She is very minimally responsive now. She had an intake of 2417 and an output of 2750. Since the nephrostomy tubes up in place they are draining also very well. Physical exam: Patient is minimally responsive Lungs are clear Heart is regular Abdomen is soft and Orellana is draining clear yellow urine Extremities show less edema ASSESSMENT/PLAN: -Acute renal failure and septicemia with bilateral hydroureteronephrosis now with bilateral nephrostomy tubes now draining well. Creat yesterday 4.33 now 3.61. Continue supportive care and pt on Meropenem. -Ileal conduit with a stomal stenosis but now with a Orellana catheter in the conduit with an draining well and the CT scan does not show a distended conduit -CT scan of the abdomen and pelvis 02/02/21 is unchanged from 01/16/21 which shows stable bilateral perinephric stranding and hydroureteronephrosis extending to a diverting ileal conduit and urostomy with stable complex ovarian cyst identified adjacent and inseparable from the distal bilateral ureters. There is no new acute abdominal pelvic pathology or processes appreciated -Progressive multiple sclerosis and the patient is wheelchair bound with a n eurogenic bladder as the reason for the ileal conduit VS,Fishbone, I+O VS, Fishbone, I+O Laboratory Tests 02/02/21 16:42 02/02/21 20:51 02/03/21 04:32 02/03/21 07:23 Vital Signs Date Time Temp Pulse Resp B/P (MAP) Pulse Ox O2 Delivery O2 Flow Rate FiO2 02/03/21 14:30 103 151/84 (106) 97 02/03/21 12:30 Room Air 02/03/21 12:25 99.5 22 02/03/21 11:25 2 I&O- Last 24 Hours up to 6 AM 02/03/21 06:00 Intake Total 2160 ml Output Total 4000 ml Balance -1840 ml MARIBEL PEREZ MD Feb 03, 2021 15:43
[2021-02-03] MEDS: ASPIRIN 81 MG CHEW TABLET NG SCH (21:25)
[2021-02-04] VITALS (16 sets, daily range): BP systolic 98–140; BP diastolic 54–87
[2021-02-04 05:11] LABS: ALBUMIN 2.2 GM/DL (3.2-5.2); BILIRUBIN,TOTAL 0.2 MG/DL (0.2-1.0); CALCIUM LEVEL 7.8 MG/DL (8.5-10.1); CREATININE FOR GFR 2.49 MG/DL (0.55-1.30); GLOMERULAR FILTRATION RATE 21.5 (>51); MAGNESIUM LEVEL 1.5 MG/DL (1.8-2.4); POTASSIUM SERUM 3.5 MEQ/L (3.5-5.1); TOTAL PROTEIN 6.7 GM/DL (6.4-8.2)
[2021-02-04] MEDS: LEVOTHYROXINE 50MCG TABLET (0.05MG) NG SCH (05:27)
[2021-02-04] MEDS: PHENYTOIN INJ 250 MG/5 ML VIAL (J1165) IV SCH ×3 (05:27→21:59)
[2021-02-04] MEDS: HEPARIN SOD (PORCINE) 5000UNITS/ML 1ML VIAL/SYRINGE SC SCH ×3 (05:27→21:37)
[2021-02-04] MEDS: D5W/0.45% SODIUM CHLORIDE 1,000 ML IV SCH ×3 (05:34→21:37)
--- NOTE | 2021-02-04 07:24 | IPNPDOC ---
Subjective Review oF Systems Chief Complaint The patient is a 55-year-old female admitted with a reason for visit of Acute Renal Failure, Hyperkalemia, Metabolic Encep. Events since Last Encounter No acute events o/n. Patient notes she is feeling better. Denies pain. Objective Physical Examination General Exam: Cooperative, No Acute Distress ABDOMEN EXAM: Soft, Other (ileal conduit w/ stoma porter in place - small amount of light red urine draining); No: Tenderness Psych Exam: Mental status NL, Mood NL Other physical findings b/l nephrostomy tubes in place, draining clear yellow urine Vital Signs/I&O Vital Signs Date Time Temp Pulse Resp B/P (MAP) Pulse Ox O2 Delivery O2 Flow Rate FiO2 02/04/21 06:00 107 129/75 (93) 97 Room Air 02/04/21 04:00 99.7 16 02/03/21 11:25 2 I&O- Last 24 Hours up to 6 AM 02/04/21 06:00 Intake Total 5527 ml Output Total 5359 ml Balance 168 ml Laboratory Data Labs 24H Laboratory Tests 2 02/03/21 07:23: Immature Granulocyte % (Auto) 1.2, Neutrophils (%) (Auto) 84.5H, Lymphocytes (%) (Auto) 4.6L, Monocytes (%) (Auto) 8.1H, Eosinophils (%) (Auto) 1.4, Basophils (%) (Auto) 0.2, Neutrophils # (Auto) 9.0H, Lymphocytes # (Auto) 0.5L, Monocytes # (Auto) 0.9H, Eosinophils # (Auto) 0.2, Basophils # (Auto) 0.0, Nucleated Red Blood Cells % (auto) 0.0, Prothrombin Time 14.9H, Prothromb Time International Ratio 1.14 02/03/21 11:43: Lab Scanned Report Miscellaneous Lab 02/04/21 04:34: Anion Gap 10, Glomerular Filtration Rate 21.5L, Calcium Level 7.8L, Magnesium Level 1.5L, Total Bilirubin 0.2, Aspartate Amino Transf (AST/SGOT) 13, Alanine Aminotransferase (ALT/SGPT) 12, Alkaline Phosphatase 273H, Total Protein 6.7, Albumin 2.2L, Albumin/Globulin Ratio 0.5L CBC/BMP Laboratory Tests 02/03/21 07:23 02/04/21 04:34 Microbiology Microbiology 02/02/21 Blood Culture - Preliminary, Resulted No growth after 24 hours . All specim... 02/02/21 Blood Culture - Preliminary, Resulted No growth after 24 hours . All specim... 02/02/21 Blood Culture - Preliminary, Resulted No growth after 24 hours . All specim... 02/02/21 Urine Culture, Received Pending 02/02/21 Respiratory Virus Panel (PCR) (VANDANA) - Final, Complete Assessment/Plan Date Seen The patient was seen on 02/04/21. Patient Summary This is a 55 y/o F w/ progressive MS and neurogenic bladder w/ an ileal conduit, admitted for TERRELL and possible sepsis due to a UTI. 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 The TERRELL appears to be 2/2 b/l ureteral obstruction from large b/l ovarian cysts. She is s/p b/l perc nephrostomy tube placement on 02/03/21, w/ Cr gradually trending down. Plan/VTE VTE Prophylaxis Ordered?: Yes VTE Exclusion Mechanical Proph: N/A:VTE Prophy Ordered Plan - appreciate Dr. Perales's help w/ b/l nephrostomy tube placement yesterday - continue b/l perc nephrostomy tubes to gravity drainage - monitor strict outputs from nephrostomy tube and ileal conduit - keep stoma Porter in place - broad spectrum abx until cultures result - will follow along GRETTA BRADLEY MD Feb 04, 2021 07:24
[2021-02-04] MEDS: DOCUSATE SOD LIQ 100MG/10ML UDC NG SCH ×2 (09:15→21:37)
[2021-02-04] MEDS: ATORVASTATIN 20 MG TAB NG SCH (09:16)
[2021-02-04] MEDS: levETIRAcetam 250MG TABLET (KEPPRA) NG SCH (09:16)
[2021-02-04] MEDS: PANTOPRAZOLE 40MG VIAL (C9113 PER 1) IV SCH (09:16)
[2021-02-04] MEDS: MEROPENEM INJ 1 GM in IV 1 EA IV SCH ×2 (11:37→23:49)
--- NOTE | 2021-02-04 12:58 | IPNPDOC ---
Date Seen The patient was seen on 02/04/21. Progress Note SUBJECTIVE: B/l nephrostomy tubes placed 02/03/21 by IR, >100 cc/hr from tubes. Cr improving, nephrology following. Tube feeding being tolerated. Patient following commands. BCx neg, UCx pending. Discussed with ID, officially consulted today. VS showed persistent tachycardia, on meropenem. Denies chest pain, incr SOB, fevers, chills, increased weakness. OBJECTIVE: PHYSICAL EXAMINATION: VITAL SIGNS: please see below General: NAD, comfortable in bed, AAOX3 HEENT: PERRLA, EOMI, sclerae clear, NG tube in place Neck: supple, normal ROM, no JVD Respiratory: lungs CTAB, no wheeze, no rales, no crackles CVS: RRR, normal S1, S2, no murmurs BACK: bilateral nephrostomy tubes draining to bedside bag Abdo: Soft, nontender. Orellana in place in stoma. Extremities: no edema, pulses 2+ MSK: no joint deformities, normal ROM Neuro: 3/5 strength in all extremities, reflexes in tact. No sensory or motor loss. CN 2-12 intact Psych: 0AAO x 0 LABORATORY DATA, IMAGING STUDIES, MICROBIOLOGY: Please see below. ASSESSMENT: 55 yo F with a hx of primary progressive MS, wheelchair bound, neurogenic bladder s/p cystectomy with diverting ileal conduit, bilateral hydronephrosis 2/2 bilateral obstructing ovarian masses, recurrent UTI (most recently pseudomonas), COPD, HTN, CKD III, admitted for sepsis 2/2 UTI, as well as metabolic encephalopathy. The setting of seizure/MS as well as sepsis. PLAN: Acute metabolic encephalopathy likely multifactorial or individually due to sepsis 2/2 to recurrent pseudomonas UTI vs. chronic R chest port vs. possible seizure activity noted on video (shown by ). -WBC improving to 10.7, afebrile, awake and following commands, generally weak -BCx NG -UCx: pseudomonas. Prior blood and urine cultures from 01/16/21 positive for pseudomonas sensitive to meropenem. -Meropenem Day #3. -ID Dr. Lobato consulted , known to her service. Acute renal failure on chronic kidney disease stage III 2/2 to obstruction from b/l hydronephrosis to bilateral ovarian masts -Post-op day 1 for b/l nephrostomy tubes being placed, good o/p -Cr improving slowly -Nephrology consulted and following -will c/w IVF -daily labs Bilateral hydronephrosis secondary to bilateral ovarian masses, chronic -POD 1 b/l nephrostomy tube placement 02/03/21, good o/p -S/p cystectomy and ileal conduit (3 years ago) -Urology consulted. -Orellana catheter in stoma was replaced in clinic on 01/31/[address] Everett, and is draining urine appropriately, and conduit appears normal on CT -Per Dr. Everett, no other urology intervention at this time until patient is stabilized. Further intervention to be done in [place] for stomal stenosis and bilateral ovarian masses causing hydronephrosis -Prior hospitalist (Dr. Tan) spoke to urologist contact lens molder in office of Dr. Graves (specialist urologist at [facility] following pt) - Dr. Schaefer. Does not believe a revision is appropriate in setting of acute sepsis. Agrees with plan for bilateral nephrostomy tubes, management of sepsis. Once patient recovered, outpatient plan for revision. -Monitor daily labs Epilepsy/tonic clonic seizure on 02/01/21 - F/u repeat phenytoin and keppra levels - takes keppra 500 mg BID, phenytoin 500 mg qhs at home and is complaint with all meds - D/w Dr. Morocho on 02/03/21. Obtain EEG. Check dilantin trough level - depending on EEG, if she continues to have seizure activity, will change meds - phenytoin to 200 mg TID IV, keppra 500 mg NG daily - low seizure threshold given sepsis. Neurochecks. Anemia -Hgb 9.1, no s/s of bleeidng - trend CBC daily - transfuse for Hgb < 8 Primary progressive multiple sclerosis, wheelchair bound, neurogenic bladder - Follows with a neurologist in [place] at [facility]. - had MRI in 01/2021 without acute changes - neurology consulted for seizure disorder - holding amantadine Neurogenic bowel -Chronic COPD -Stable on RA -compensated Hx of Hypertension - will hold antihypertensives in setting of sepsis torticollis, pseudobulbar affect -Chronic B12 deficiency -Supplement migraines, -No complaints obesity, -Complicating care anxiety, depression -Chronic Chronic insomnia -PRN MED DISPOSITION: Called patient's HCP, Joey Yang at [phone] and left message to call me back. Transferring to PCU from ICU today. TOTAL AMOUNT OF ICU SPENT CARING FOR PATIENT (nonprocedure) : 40 mins VS, I&O, 24H, Fishbone Vital Signs/I&O Vital Signs Date Time Temp Pulse Resp B/P (MAP) Pulse Ox O2 Delivery O2 Flow Rate FiO2 02/04/21 12:00 100.0 114 18 123/79 (94) 96 Room Air 02/03/21 11:25 2 I&O- Last 24 Hours up to 6 AM 02/04/21 06:00 Intake Total 5527 ml Output Total 5359 ml Balance 168 ml Laboratory Data 24H LABS Laboratory Tests 2 02/04/21 04:34: Anion Gap 10, Glomerular Filtration Rate 21.5L, Calcium Level 7.8L, Magnesium Level 1.5L, Total Bilirubin 0.2, Aspartate Amino Transf (AST/SGOT) 13, Alanine Aminotransferase (ALT/SGPT) 12, Alkaline Phosphatase 273H, Total Protein 6.7, Albumin 2.2L, Albumin/Globulin Ratio 0.5L 02/04/21 07:35: Phenytoin (Dilantin) Level 12.6 CBC/BMP Laboratory Tests 02/04/21 04:34 Microbiology Microbiology 02/02/21 Blood Culture - Preliminary, Resulted No growth after 24 hours . All specim... 02/02/21 Blood Culture - Preliminary, Resulted No growth after 24 hours . All specim... 02/02/21 Blood Culture - Preliminary, Resulted No growth after 24 hours . All specim... 02/02/21 Urine Culture - Final, Complete Pseudomonas Aeruginosa 02/02/21 Respiratory Virus Panel (PCR) (VANDANA) - Final, Complete Current Medications Current Medications Medications (Trade) Dose Ordered Sig/Felix Route PRN Reason Start Time Stop Time Status Last Admin Dose Admin Acetaminophen (Tylenol Tab) 650 mg Q4H PRN NG PAIN OR FEVER 02/02/21 21:35 02/03/21 21:26 Acetaminophen (Tylenol Tab) 650 mg Q4H PRN PO PAIN OR FEVER 02/02/21 17:35 02/02/21 20:09 DC Al Hydrox/Mg Hydrox/Simethicone (Mylanta) 30 ml DAILY PRN PO DYSPEPSIA 02/02/21 17:35 Albuterol Sulfate (Proventil, Ventolin Hfa) 2 puff Q4H PRN INH SHORTNESS OF BREATH 02/02/21 19:55 Aspirin (Aspirin Chewable) 81 mg QHS NG 02/02/21 21:00 02/03/21 21:25 Atorvastatin Calcium (Lipitor) 40 mg DAILY NG 02/03/21 09:00 02/04/21 09:16 Dextrose (Dextrose 50%) 50 ml STAT STAT IV 02/02/21 15:24 02/02/21 15:25 DC 02/02/21 15:32 Dextrose/Sodium Chloride 1,000 ml @ 150 mls/hr Q6H40M IV 02/02/21 20:15 02/04/21 05:34 Docusate Sodium (Colace Liquid) 100 mg BID NG 02/02/21 21:00 02/04/21 09:15 Docusate Sodium (Colace) 100 mg BID PO 02/02/21 21:00 02/02/21 21:10 DC Heparin Sodium (Porcine) (Heparin) 5,000 units Q8H SC 02/02/21 22:00 02/04/21 05:27 Home Med (Med Rec Complete!) ASDIRECTED XX 02/02/21 15:50 02/02/21 15:54 DC Insulin Human Regular (HumuLIN R INSULIN) 5 units STAT STAT IV 02/02/21 20:42 02/02/21 20:45 DC 02/02/21 21:43 Levetiracetam (Keppra) 500 mg DAILY NG 02/03/21 09:00 02/04/21 09:16 Levothyroxine Sodium (Synthroid) 50 mcg DAILY@0600 NG 02/03/21 06:00 02/04/21 05:27 Magnesium Hydroxide (Milk Of Magnesia) 30 ml DAILY PRN PO CONSTIPATION 02/02/21 17:35 Meropenem 1 gm/IV Miscellaneous Supplies 50 ml @ 100 mls/hr Q12H IV 02/03/21 00:00 02/04/21 11:37 Pantoprazole Sodium (Protonix) 40 mg DAILY IV 02/03/21 09:00 02/04/21 09:16 Phenytoin (DILANTIN INJection) 200 mg Q8H IV 02/03/21 06:00 02/04/21 05:27 Sodium Bicarbonate (Sodium Bicarbonate) 50 meq STAT STAT IV 02/02/21 15:07 02/02/21 15:10 DC 02/02/21 15:31 Sodium Chloride 1,000 ml @ 150 mls/hr Q6H40M IV 02/02/21 20:10 02/02/21 20:14 DC Allergies Coded Allergies: Cephalosporins (Verified Allergy, Intermediate, rash, 12/27/19) Sulfa (Sulfonamide Antibiotics) (Verified Allergy, Mild, itchy, 12/27/19) oxycodone (Verified Allergy, Mild, itchy, 12/27/19) hydrocodone (Verified Adverse Reaction, Intermediate, chest pain, 12/27/19) Veronica Lee MD Feb 04, 2021 12:58
[2021-02-04] MEDS: ASPIRIN 81 MG CHEW TABLET NG SCH (21:37)
[2021-02-05] VITALS: BP 140/94
[2021-02-05 04:00] VITALS: BP 144/93
[2021-02-05] MEDS ORDERED: ONDANSETRON 4MG/2ML VIAL IV PRN (04:15)
[2021-02-05] MEDS: D5W/0.45% SODIUM CHLORIDE 1,000 ML IV SCH ×4 (04:38→21:35)
[2021-02-05 06:01] LABS: ALBUMIN 2.5 GM/DL (3.2-5.2); BILIRUBIN,TOTAL 0.2 MG/DL (0.2-1.0); CALCIUM LEVEL 8.4 MG/DL (8.5-10.1); CREATININE FOR GFR 1.69 MG/DL (0.55-1.30); GLOMERULAR FILTRATION RATE 33.7 (>51); MAGNESIUM LEVEL 1.5 MG/DL (1.8-2.4); POTASSIUM SERUM 3.4 MEQ/L (3.5-5.1); TOTAL PROTEIN 6.5 GM/DL (6.4-8.2)
[2021-02-05] MEDS: LEVOTHYROXINE 50MCG TABLET (0.05MG) NG SCH (06:14)
[2021-02-05] MEDS: PHENYTOIN INJ 250 MG/5 ML VIAL (J1165) IV SCH ×3 (06:15→21:23)
[2021-02-05] MEDS: HEPARIN SOD (PORCINE) 5000UNITS/ML 1ML VIAL/SYRINGE SC SCH ×3 (06:15→21:23)
[2021-02-05 08:00] VITALS: BP 145/98
[2021-02-05] MEDS ORDERED: POTASSIUM CHLORIDE 10% LIQ 20 MEQ/15 ML UDC GT ONE (08:00)
[2021-02-05] MEDS: PANTOPRAZOLE 40MG VIAL (C9113 PER 1) IV SCH (08:01)
[2021-02-05] MEDS: ATORVASTATIN 20 MG TAB NG SCH (08:02)
[2021-02-05] MEDS: MAGNESIUM OXIDE 400MG TAB (MAG-OX) GT SCH ×2 (08:02→19:49)
[2021-02-05] MEDS: levETIRAcetam 250MG TABLET (KEPPRA) NG SCH (08:02)
[2021-02-05] MEDS: DOCUSATE SOD LIQ 100MG/10ML UDC NG SCH (08:05)
[2021-02-05] MEDS ORDERED: MIRALAX *UNIT DOSE* 17GM PACKET GT PRN (08:05)
[2021-02-05] MEDS: DOCUSATE SOD LIQ 100MG/10ML UDC GT SCH ×2 (08:33→19:48)
--- NOTE | 2021-02-05 08:48 | CR ---
CONSULTATION DATE: 02/04/2021 REQUESTING PHYSICIAN: Veronica Lee MD REASON FOR CONSULTATION: Sepsis secondary to recurrent urinary tract infection, being treated with meropenem. HISTORY OF PRESENT ILLNESS: Elise is a 55-year-old female with pertinent past medical history of multiple sclerosis, status post autologous stem cell transplant in January, who is wheelchair bound with neurogenic bladder, status post cystectomy with diverting ileal conduit and recurrent urinary tract infections (most commonly growing Pseudomonas and E. faecalis and taking fosfomycin as outpatient), bilateral hydronephrosis secondary to bilateral obstructing ovarian masses, and two recent hospital admissions in November and December of 2020 for recurrent UTI and metabolic encephalopathy. She was admitted for this admission on February 02 after she was found unresponsive on the floor at home by her , Robby. According to reports, he both witnessed and videotaped her having a seizure in the form of tonic-clonic activity after which she became unresponsive. The patient's called 911 and upon arrival, the patient was obtunded with a [place] Coma Score of 8. She maintained good saturations as seen on two separate arterial blood gases with no signs of acidosis, but did have leukocytosis (WBC 15.3), hyperkalemia (potassium 6.7) as well as acute renal failure on chronic kidney disease, stage 3B. A urinalysis was positive with cultures showing growth of Pseudomonas aeruginosa. On most recent admission two weeks ago in December 2020, patient had both Pseudomonas bacteremia a Pseudomonas urinary tract infection with sensitivity to meropenem. Administration of meropenem was initiated again this admission. The patient was subsequently admitted under the care of the hospitalist service to the intensive care unit for continued management of sepsis secondary to urinary tract infection as well as tonic-clonic seizure with history of seizure disorder. To address the bilateral hydronephrosis that she has continually had over the past month with each of her three hospital admissions, interventional radiology performed a bilateral nephrostomy tube placement. Apparently, the admitting hospitalist physician had discussed transferring the patient to [place] for further management but the potential receiving physician did not feel the patient would be safe in transit without being intubated. In terms of her tonic-clonic seizure in the setting of a seizure disorder, neurology was contacted and they recommended changing her home outpatient Keppra 500 mg b.i.d. to 100 mg daily until her renal function improved. Dr. Burnett in neurology also recommended that the patient's home 500 mg q.h.s. Phenytoin be switched to 200 mg t.i.d. IV. As far as the acute renal failure on CKD stage 3, nephrology was consulted and the patient had increased urine output via her ileal conduit with Orellana catheter after receiving IV fluid boluses. At the time of initial infectious disease consultation examination, the patient had just been switched from the intensive care unit to the progressive care unit. PAST MEDICAL HISTORY: 1. Primary progressive multiple sclerosis, status post autologous stem cell transplant in January, in [place], wheelchair bound after recent falls at home and status post cystectomy with urostomy in June, for neurogenic bladder. 2. Recurrent urinary tract infections with recent culture of Pseudomonas and E. faecalis; takes fosfomycin as an outpatient and has followed previously with Dr. Lobato of infectious disease. 3. Neurogenic bowel. 4. Bilateral hydronephrosis secondary to bilateral ovarian masses. 5. Torticollis and pseudobulbar affect following with a physician in [place] (Dr. Avila). 6. Chronic kidney disease, stage 3B. 7. COPD. 8. Hypertension. 9. Migraines. 10. Obesity. 11. Anxiety and depression. 12. Chronic insomnia. 13. Seizure disorder. 14. Vitamin B12 deficiency. 15. Microcytic anemia. 16. Hepatic steatosis. 17. Status post multiple Mohs' procedures to resect basal cell carcinoma. PAST SURGICAL HISTORY: 1. Bilateral breast reduction surgery in 1991. 2. Bilateral wrist surgery, done with [facility] in [place]. 3. Autologous stem cell transplant at [facility] in [facility] in January,. 4. Status post tubal ligation. 5. Multiple Mohs' procedures for resection of basal cell carcinoma. 6. Cystectomy with urostomy and ileal conduit in June,. 7. Status post port placement for chemotherapy and steroids related to her multiple sclerosis, she had been receiving injections of monoclonal antibody (ocrelizumab). According to outpatient PCP records, that is a piece of metal in her heart from a previous port that was not retrieved. 8. Hysterectomy. 9. EGD and colonoscopy in December,. EGD was unremarkable and colonoscopy revealed adenomatous polyps. SOCIAL HISTORY: The patient is . Her Robby is quite familiar with all of her medical issues and is a very good historian on them. In addition to the autologous stem cell transplant in [place], she apparently follows with Dr. Avila in [place] overseeing her MS as well as torticollis and pseudobulbar affect. She is a former smoker. She does drink alcohol but very rarely, reporting on most recent outpatient record of approximately one drink every 1-2 months. She does report occasional marijuana use. FAMILY HISTORY: Brother with epilepsy. ALLERGIES: 1. CEPHALOSPORINS, AN IMMEDIATE REACTION IN THE FORM OF A RASH VERIFIED ON 12/27/19. 2. SULFA DRUGS, MILD IN FORM OF PRURITUS, VERIFIED 12/27/19. 3. OXYCODONE, MILD REACTION WITH PRURITUS, VERIFIED 12/27/19. 4. HYDROCODONE, INTERMEDIATE REACTION IN THE FORM OF CHEST PAIN, VERIFIED 12/27/19. HOME MEDICATIONS: Scheduled Acyclovir 400 mg p.o. b.i.d., amantadine 100 mg p.o. b.i.d., aripiprazole 2 mg p.o. q.h.s., 81 mg aspirin p.o. q.h.s., atorvastatin 40 mg p.o. daily, baclofen 40 mg p.o. b.i.d., clonazepam 1 mg p.o. q.h.s., duloxetine 60 mg p.o. b.i.d., vitamin D 50,000 unit capsule one time per week on Fridays, fosfomycin 3 gm packet p.o. weekly on Fridays, hydroxyzine 50 mg p.o. b.i.d., Keppra 500 mg p.o. b.i.d., phenytoin 500 mg p.o. q.h.s., pantoprazole 40 mg p.o. b.i.d., Meloxicam 50 mg p.o. daily, melatonin 10 mg p.o. q.h.s., levothyroxine 50 mcg p.o. q.a.m., potassium chloride 10 mEq p.o. daily, pregabalin 300 mg p.o. b.i.d., Senokot S tablet one tab p.o. q.h.s. Scheduled p.r.n. Albuterol rescue inhaler q.4 hours, Asmanex (mometasone furoate) one puff b.i.d. p.r.n. for asthma, promethazine 25 mg p.o. q.4 p.r.n. for nausea or vomiting. PHYSICAL EXAMINATION: VITALS: Temperature 98.3, heart rate of 111, respiratory rate of 18, blood pressure of 128/78, SPO2 of 97% on room air, BMI of 41.7. GENERAL: Obese female lying in bed. Appears slightly older than stated age. She is awake, alert and oriented to person and place but struggles with time. Responding verbally in a slower manner and sometimes struggling to find words. HEENT: There are some visible healed scars on the superior aspect of her forehead right at the hairline. Pupils are somewhat dilated but equal bilaterally and respond to light and accommodation. Noninjected, anicteric sclera. No significant conjunctival pallor appreciated. There is a nasogastric tube in place with tube feeds actively running through. ORAL CAVITY: There appears to be some exudate on the roof of her mouth. No pharyngeal erythema appreciated. CARDIOVASCULAR: Tachycardic rate, regular rhythm, normal S1, S2. No murmurs or rubs appreciated. 2+ radial pulses bilaterally with capillary refill less than 2 seconds. RESPIRATORY: Decreased tidal volume and respiratory effort, otherwise no significant adventitious breath sounds appreciated. Symmetric chest expansion. Breathing room air. ABDOMEN: There is urostomy in place, the right side of the abdomen with a Orellana catheter inserted within the urostomy tube. The stoma itself looks to have good surrounding tissue and there are some scant amounts of blood draining through the Orellana catheter. Hypoactive bowel sounds throughout. Obese abdomen. Nontender with no rigidity appreciated. Difficult to assess for hepatosplenomegaly secondary to habitus. BACK: There are two nephrostomy tubes present bilaterally on the costovertebral margins. There does not appear to be any surrounding erythema, induration, or drainage around the nephrostomy tubes. There does not appear to be any decubitus ulcers over the lower back or buttocks area. GENITOURINARY: As stated above, there is a Orellana catheter in place with the ileal conduit urostomy draining scant amounts of blood. EXTREMITIES: There is bilateral edema of her hands, right greater than left. Bilateral lower extremities are sensitive to touch but no pitting edema is appreciated. NEUROLOGIC: The patient is awake, alert and oriented to person and place but struggles somewhat with time. She is speaking slower but is able to respond appropriately to most questions. She follows commands but does struggle at times with more involved commands. Moving all four extremities but in a slower manner. LABORATORIES: CBC showing WBC of 10.7, hemoglobin of 9.1, hematocrit of 29.3, platelet count of 218,000 with no bands and elevated neutrophil percentage around 85% (this lab was actually from yesterday, 02/03/21). CMP today with following results - Sodium 140, potassium 3.5, chloride 106, bicarb 24, BUN 23, creatinine 2.49, glucose 188, calcium 7.8, magnesium 1.5, total bilirubin of 0.2, AST 13, ALT 12, alkaline phosphatase 273, total protein of 6.7, albumin of 2.2. Toxicology Phenytoin level of 12.6 with a pending Keppra level and tox screen on 02/02 was negative for all tested entities. Urinalysis on 02/02 showed 2+ protein, turbid appearance, positive nitrite, 2+ leukocyte esterase, urine bacteria 1+. Microbiology: Respiratory viral panel was negative including negative novel coronavirus test. Urine culture on 02/02/21 grew Pseudomonas aeruginosa. Two blood cultures from venous blood obtained on 02/02 preliminarily show no growth after 48 hours. There was also a third blood culture taken on 02/02 from her port and that has a preliminary result of no growth after 24 hours. There are no new imaging studies obtained since they were documented on the history and physical from 02/02. IMPRESSION AND PLAN: 1. Sepsis secondary to Pseudomonas aeruginosa urinary tract infection. On review of her most recent admission, she received six days of meropenem when she had both a Pseudomonas urinary tract infection and Pseudomonas bacteremia and was due to receive five more days upon discharge of meropenem via a PICC through [facility]. At this point, looking at the minimum inhibitory concentration (VANDANA) the sensitivity to Zosyn was borderline and thus we agree with continuing with meropenem for a total of fourteen days. Her mental status has improved significantly since admission two days ago and she was just downgraded to progressive care unit from the ICU. All of her tube insertion sites do not appear to be sources of infection and preliminary port specimens also show no growth. Of note, the Pseudomonas bacteremia from her admission two weeks ago appears to have been adequately treated. 2. Status post autologous stem cell transplant in [place] in January,. Upon review of her outpatient medications, she does not appear to be on any immunosuppressant medications following the bone marrow transplant. Of note, she has had repeated urinary tract infections for well over a year now and most recently has had two admissions over the past month and a half with Pseudomonas. She receives a monoclonal antibody q6 months per outpatient records for her multiple sclerosis. 3. Bilateral hydroureteronephrosis secondary to bilateral ovarian cysts, status post 02/03/21 bilateral nephrostomy tube placement. Upon review of her outpatient records, her primary care provider (Dr. Luis M Morales) did make a referral to gynecology (Dr. Bryant Hanson) to most likely address the bilateral ovarian cysts that are causing the obstruction leading to the bilateral hydroureteronephrosis. This referral was made on January 23, 2021. 4. Tonic-clonic witnessed seizure in the setting of seizure disorder. As discussed in HPI, neurology has been consulted and recommended the aforementioned medication changes. There is an EEG scheduled for tomorrow (02/05) morning. DEVORAH
--- NOTE | 2021-02-05 09:26 | CR ---
CONSULTATION DATE: 02/04/2021 REASON FOR CONSULTATION: Acute kidney injury. HISTORY OF PRESENT ILLNESS: Ms. Yang is a 55-year-old female with known history of progressive multiple sclerosis, neurogenic bladder, status post ileal conduit, and recent hospitalization for sepsis. She was admitted to [facility] a couple of days ago with acute renal failure and dehydration. Apparently she had no urine output through her ileostomy. 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 She has received large amount of intravenous (IV) fluids, and urine output did improve; however, she had persistent bilateral hydronephrosis, due to which urology recommended bilateral nephrostomy tube placement. Yesterday I came to see her; however, patient was in interventional radiology getting her nephrostomy tubes, and I could not see her yesterday. I have seen the patient this morning in intensive care unit. Patient herself is a poor historian and not able to provide much information. Her records are reviewed, and information is obtained from her electronic records. Her past medical and surgical history significant for progressive multiple sclerosis, recent history of sepsis, history of neurogenic bladder, status post ileal conduit, history of bilateral hydronephrosis with bilateral obstructing ovarian masses. She was recently here at the hospital with sepsis. She was admitted again on February 02 due to unresponsiveness. Apparently, she was not eating and drinking, and her felt that she would bounce back; however, patient's condition deteriorated. On admission her white blood cell (WBC) count was 15.3, potassium was 6.7, BUN 40, and creatinine 4.39. she was given about 3 liters of IV fluid in the emergency room, and she did have some improved urine output through her ilial conduit; however, nephrology felt that patient would benefit from bilateral nephrostomy tube placement, as she had persistent bilateral hydronephrosis despite a ureteral catheter placement. MEDICAL HISTORY: 1. Progressive multiple sclerosis. 2. Neurogenic bladder with recurrent urinary tract infections. 3. History of neurogenic bowel. 4. History of bilateral hydronephrosis. 5. Chronic obstructive pulmonary disease (COPD). 6. Pseudobulbar effect. 7. History of anemia. 8. History of anxiety and depression. 9. Hepatic steatosis. SURGICAL HISTORY: Significant for: 1. Bilateral breast reduction. 2. Bilateral wrist surgery. 3. Tubal ligation. 4. Basal cell carcinoma resection. 5. Hysterectomy. 6. Urinary diversion. 7. Antrostomy. PERSONAL AND SOCIAL HISTORY: Patient is and lives with her . No history of alcohol or drug use. FAMILY HISTORY: Noncontributory. ALLERGIES: Patient has allergy to SULFA, CEPHALOSPORINS, OXYCODONE, HYDROCODONE. HOME MEDICATIONS: - acyclovir 400 mg twice a day - amantadine 100 mg twice a day - aripiprazole 2 mg at bedtime - aspirin 81 mg daily - atorvastatin 40 mg daily - Baclofen 20 mg two tablets twice a day - clonazepam 1 mg at bedtime - Cymbalta 60 mg twice a day - vitamin D 50,000 units once a week - fosfomycin 3 grams once a week - hydroxyzine 50 mg twice a day - Keppra 500 mg twice a day - levothyroxine 50 mcg daily - magnesium oxide 500 mg at bedtime - melatonin 10 mg at bedtime - meloxicam 15 mg daily - pantoprazole 40 mg twice a day - Dilantin 500 mg at bedtime - potassium chloride 10 mEq daily - Lyrica 300 mg twice a day - Senokot-S one tablet at bedtime REVIEW OF SYSTEMS: Patient is not able to provide much reliable information. Apparently she was not doing well at home, was very lethargic, and had poor oral intake. Then she became unresponsive, due to which she was brought to the emergency room. She was recently treated for a urinary tract infection. In the emergency room she was treated with IV fluid and did have improved urine output; however, kidney did not improve with bilateral hydronephrosis, due to which yesterday she underwent bilateral nephrostomy tube placement. Otherwise, review of systems is unremarkable. She is mostly bed ridden due to her multiple sclerosis. PHYSICAL EXAMINATION: Temperature 100 degrees Fahrenheit, heart rate about 114 per minute, respiratory rate 18 per minute, blood pressure 123/80 mmHg, and oxygen saturation 96% on room air. Head is atraumatic. Neck veins are not abnormally distended. Nasogastric tube is in place. Heart sounds are tachycardic but regular. Lungs have slightly decreased breath sounds due to poor inspiratory effort. Abdomen is soft, and urostomy in right lower quadrant is draining minimal amount of urine. She has bilateral nephrostomy tubes in place. Left nephrostomy tube has minimal hematuria, but right one is clear. Extremities have no cyanosis or clubbing. Neurologically, she is awake and has significant weakness. She is unable to move her lower extremities. LABORATORY DATA: On admission, her potassium was 6.7 and sodium 142. BUN was 40 and creatinine 4.39. Yesterday sodium 145, potassium was down to 4.5, CO2 of 26, BUN 35, and creatinine 3.6. Today her sodium is 140, potassium 3.5, BUN 23, creatinine 2.49, glucose 188, and calcium 7.8. Magnesium level is 1.5. Total protein 6.7 and albumin 2.2. PROBLEMS: 1. Acute renal failure, most likely result of sepsis, dehydration, and obstruction. Patient had catheter placed in her urostomy recently; however, she did not have any urine output when she was dehydrated. After IV fluid hydration, urine output did improve, but kidney function did not improve significantly, and she also had persistent bilateral hydronephrosis. Following nephrostomy tube placement, her kidney function is improving, and she seems to have good urine output. I will recommend to continue with aggressive hydration. 2. Hyperkalemia. Initially, on admission she had hyperkalemia related to obstruction, dehydration, and acute kidney injury. Now her potassium level is down to 3.5 today, and she is at risk of hypokalemia. I will recommend to continue monitoring and replace her potassium as needed. 3. Hypomagnesemia. This is most likely nutritional, and I will recommend intravenous magnesium supplement. 4. Urosepsis. Her urinalysis showed 153 white blood cells (WBC) and 1+ bacteria. Heart rate urine culture is positive for pseudomonas and likely to have persistent urinary tract infection (UTI) due to instrumentation and urostomy. In the hospital, currently she is being treated with meropenem, which is appropriate. Thank you for involving me in the care of Ms. Yang. I will follow her along with you.
[2021-02-05] MEDS ORDERED: ONDANSETRON 4MG/2ML VIAL IV ONE (10:00)
--- NOTE | 2021-02-05 10:35 | IPNPDOC ---
Subjective Review oF Systems Chief Complaint The patient is a 55-year-old female admitted with a reason for visit of Acute Renal Failure, Hyperkalemia, Metabolic Encep. Events since Last Encounter No acute events. Patient notes she is feeling a little better today. Denies pain. Objective Physical Examination General Exam: Cooperative, No Acute Distress ABDOMEN EXAM: Soft, Other (ileal conduit w/ stoma porter in place - small amount of light red urine draining); No: Tenderness Psych Exam: Mental status NL, Mood NL Other physical findings b/l neph tubes draining clear yellow urine Vital Signs/I&O Vital Signs Date Time Temp Pulse Resp B/P (MAP) Pulse Ox O2 Delivery O2 Flow Rate FiO2 02/05/21 08:00 99.6 115 18 145/98 (114) 93 Room Air 02/03/21 11:25 2 I&O- Last 24 Hours up to 6 AM 02/05/21 06:00 Intake Total 1733 ml Output Total 3340 ml Balance -1607 ml Laboratory Data Labs 24H Laboratory Tests 2 02/05/21 04:45: Anion Gap 9, Glomerular Filtration Rate 33.7L, Calcium Level 8.4L, Magnesium Level 1.5L, Total Bilirubin 0.2, Aspartate Amino Transf (AST/SGOT) 16, Alanine Aminotransferase (ALT/SGPT) 15, Alkaline Phosphatase 310H, Total Protein 6.5, Albumin 2.5L, Albumin/Globulin Ratio 0.6L CBC/BMP Laboratory Tests 02/05/21 04:45 Microbiology Microbiology 02/02/21 Blood Culture - Preliminary, Resulted No Growth after 48 hours. All Specime... 02/02/21 Blood Culture - Preliminary, Resulted No Growth after 48 hours. All Specime... 02/02/21 Blood Culture - Preliminary, Resulted No Growth after 48 hours. All Specime... 02/02/21 Urine Culture - Final, Complete Pseudomonas Aeruginosa 02/02/21 Respiratory Virus Panel (PCR) (VANDANA) - Final, Complete Assessment/Plan Date Seen The patient was seen on 02/05/21. Patient Summary This is a 55 y/o F w/ progressive MS and neurogenic bladder w/ an ileal conduit, admitted for TERRELL and possible sepsis due to a UTI. TERRELL continues to improve s/p b/l neph tube placement. Urine culture growing Pseudomonas. Plan/VTE VTE Prophylaxis Ordered?: Yes VTE Exclusion Mechanical Proph: N/A:VTE Prophy Ordered Plan - neph tubes to gravity drainage - will need to be kept in until something is done to address the b/l obstructing ovarian cysts - keep stoma catheter in place - recently changed - patient continue w/ a stoma catheter until she is seen by her urologist in [place] to address the stoma stenosis - patient should have an appt to see her urologist shortly after discharge to discuss this GRETTA BRADLEY MD Feb 05, 2021 10:35
[2021-02-05 12:05] VITALS: BP 134/86
[2021-02-05] MEDS: MEROPENEM INJ 1 GM in IV 1 EA IV SCH ×2 (12:30→22:59)
[2021-02-05] MEDS ORDERED: PROMETHAZINE 25 MG TAB PO PRN (13:30)
--- NOTE | 2021-02-05 13:51 | IRPON ---
IR Postoperative Note Date Of Procedure: Feb 03, 2021 Time Of Procedure: 16:00 IR Postoperative Note IR Percutaneous bilateral nephrostomy catheter placement using fluoroscopic and ultrasound guidance. IR Bilateral nephrostogram and Ureterogram. IR Ultrasound of bilateral kidneys. IR Moderate sedation. Clinical Information:Patient with cystectomy and ileal conduit with chronic outflow obstruction managed with Orellana. Presents with fever, leukocytosis, bilateral hydronephrosis and worsening renal failure. Referred for bilateral nephrostomy. Physician: Dr. Perales. Procedure: The patient's was advised of the benefits, risks, and alternatives of the procedure and informed consent was obtained. A time out was performed with verification of the patient's name, MRN, site of procedure, and type of procedure to be performed. The patient was positioned in the prone position on the angiographic table. The site was prepped and draped in the usual sterile fashion. Moderate sedation was performed by the physician including the presence of an independent trained RN, who monitored the patient's level of consciousness and physiological status. Following the administration of fentanyl and Versed, the physician spent 90 minutes of continuous [id number] time with the patient. A delivery consultant radiograph reveals no gross abnormality. Left side: Ultrasound left kidney demonstrates mild dilation of the renal pelvis but no significant dilation of the calyces. The anticipated puncture site on the flank was anesthetized with lidocaine. Using ultrasound guidance, the left renal pelvis was accessed with a 21-gauge Chiba needle. A nephrostogram and ureterogram were performed demonstrating hydronephrosis and hydroureter.A second 21-gauge Chiba needle was then used under fluoroscopic guidance to access the lower pole calyx. A [place] wire was then advanced through the second needle, into the renal collecting system, under fluoroscopy guidance. The needle was then exchanged for a nonvascular introducer set.The initial needle was then removed. An Amplatz wire was then advanced into the ureter under fluoroscopy guidance. The wire passed easily under fluoroscopic guidance, down the ureter and through the ureteral anastomosis. However, stagnation of contrast in the left ureter suggests distal obstruction. A 10 Taiwanese nephrostomy catheter was then advanced over the wire, under fluoroscopy guidance into the left renal collecting system. The pigtail was formed and locked in position. A final nephrostogram and ureterogram were performed confirming positioning of the pigtail within the renal pelvis with hydronephrosis and hydroureter. Ureterogram demonstratesstagnant flow in the left ureter and retardation of flow through the ureteral anastomosis. No extravasation. The catheter was sutured in position with 2-0 Prolene and a sterile dressing applied. The catheter was placed to gravity drainage. Right-sided: Ultrasound right kidney demonstrates moderate hydronephrosis and dilation of the calyces. The anticipated puncture site on the flank was anesthetized with lidocaine. Us ing ultrasound guidance, a lower pole right renal calyx was accessed with a 21- gauge Chiba needle. A nephrostogram and ureterogram were performed demonstrating hydronephrosis and hydroureter with distal ureteral obstruction.A [place] wire was then advanced through the needle under fluoroscopy guidance, into the renal collecting system and proximal ureter. The needle was then exchanged for a nonvascular introducer set. An Amplatz wire was then advanced into the renal collecting system and down the ureter under fluoroscopy guidance. The wire passed easily under fluoroscopic guidance, down the ureter and through the ureteral anastomosis. A 10 Taiwanese nephrostomy catheter was then advanced over the wire, under fluoroscopy guidance into the right renal collecting system. The pigtail was formed and locked in position. A final nephrostogram and ureterogram were performed confirming positioning of the pigtail within the renal pelvis with hydronephrosis and hydroureter.No extravasation. The catheter was sutured in position with 2-0 Prolene and a sterile dressing applied. The catheter was placed to gravity drainage. The patient tolerated the procedure well and was returned to the PRU in stable condition. EBL: < 5 mL. Complications:None. Conclusion: 1. Left-sided nephrostogram and ureterogram demonstratehydronephrosis and hydroureter with dynamically significant retardation of flow through the left ureter. 2. Right-sided nephrostogram and ureterogram demonstrate hydronephrosis and hydroureter with distal ureteral obstruction. 2. Successful bilateral nephrostomy catheter placement. Patient to follow-up with IR for routine exchanges and/or discussion for nephroureteral ileal conduit stenting. Thank you for this referral CC MAICOL Mancia Dr., MD Feb 05, 2021 13:51
--- NOTE | 2021-02-05 15:01 | IPNPDOC ---
Date Seen The patient was seen on 02/05/21. Progress Note SUBJECTIVE: Discussed with urology who suggested keeping b/l nephrostomy tubes until underlying obstructions are dealt with as o/p. Cr further improved. Removed NG tube today, started on diet by speech. PT/OT started. No events overnight. OBJECTIVE: PHYSICAL EXAMINATION: VITAL SIGNS: please see below General: NAD, comfortable in bed, AAOX3 HEENT: PERRLA, EOMI, sclerae clear, NG tube in place Neck: supple, normal ROM, no JVD Respiratory: lungs CTAB, no wheeze, no rales, no crackles CVS: RRR, normal S1, S2, no murmurs BACK: bilateral nephrostomy tubes draining to bedside bag Abdo: Soft, nontender. Orellana in place in stoma. Extremities: no edema, pulses 2+ MSK: no joint deformities, normal ROM Neuro: 3/5 strength in all extremities, reflexes in tact. No sensory or motor loss. CN 2-12 intact Psych: Mood and affect appropriate LABORATORY DATA, IMAGING STUDIES, MICROBIOLOGY: Please see below. ASSESSMENT: 55 yo F with a hx of primary progressive MS, wheelchair bound, neurogenic bladder s/p cystectomy with diverting ileal conduit, bilateral hydronephrosis 2/2 bilateral obstructing ovarian masses, recurrent UTI (most recently pseudomonas), COPD, HTN, CKD III, admitted for sepsis 2/2 UTI, as well as metabolic encephalopathy. The setting of seizure/MS as well as sepsis. PLAN: Acute renal failure on chronic kidney disease stage III 2/2 to obstruction from b/l hydronephrosis to bilateral ovarian masts -Post-op day 2 for b/l nephrostomy tubes being placed, good output - will likely need to be kept in until obstructions are dealt with. Can f/u with Dr. Perales Q3 months for this. -Cr improving slowly -C/w IVF for now and stop when taking good PO intake. -daily labs -Nephrology consulted and following Bilateral hydronephrosis secondary to bilateral ovarian masses, chronic -POD 2 b/l nephrostomy tube placement 02/03/21, good output - to keep as o/p -S/p cystectomy and ileal conduit (3 years ago) -Orellana catheter in stoma was replaced in clinic on 01/31/[address] Everett, and is draining urine appropriately, and conduit appears normal on CT- will need to keep per Dr. Saha -Per urology, further intervention to be done in [place] for stomal stenosis and bilateral ovarian masses causing hydronephrosis -Prior hospitalist (Dr. Tan) spoke to patient's normal urologist crop nutrition scientist in office of Dr. Graves (specialist urologist at [facility] following pt) - Dr. Schaefer. Does not believe a revision is appropriate in setting of acute sepsis. Agrees with plan for bilateral nephrostomy tubes, management of sepsis. Once patient recovered, outpatient plan for revision. -Monitor daily labs -Urology discussed case today with me (Dr. Saha) and agrees with above Epilepsy/tonic clonic seizure on 02/01/21 - No seizure activity seen since admission - Phenytoin levels wnl, pending keppra levels - takes keppra 500 mg BID, phenytoin 500 mg qhs at home and is complaint with all meds - EEG done- f/u results - D/w Dr. Morocho on 02/03/21. Will tb with them after keppra level arrives - phenytoin to 200 mg TID IV, keppra 500 mg NG daily Recurrent Pseudomonas UTI, hx of neurogenic bladder -On meropenem -ID consulted, will tb in the AM to see about duration of treatment Anemia - No s/s of bleeidng - trend CBC daily - transfuse for Hgb < 8 Primary progressive multiple sclerosis, wheelchair bound, neurogenic bladder - Follows with a neurologist in [place] at [facility]. - had MRI in 01/2021 without acute changes - neurology consulted for seizure disorder - holding amantadine Neurogenic bowel -Chronic COPD -Stable on RA -compensated Hx of Hypertension - will hold antihypertensives in setting of sepsis torticollis, pseudobulbar affect -Chronic B12 deficiency -Supplement migraines, -No complaints obesity, -Complicating care anxiety, depression -Chronic Chronic insomnia -PRN MED Resolved issues: Acute metabolic encephalopathy likely multifactorial or individually due to sepsis 2/2 to recurrent pseudomonas UTI vs. possible seizure activity DISPOSITION: Currently inpatient status, c/w PT/OT. TB with ID on 02/06/21, discussed case with urology today. Plan is discharge home when medically improved. VS, I&O, 24H, Fishbone Vital Signs/I&O Vital Signs Date Time Temp Pulse Resp B/P (MAP) Pulse Ox O2 Delivery O2 Flow Rate FiO2 02/05/21 12:05 98.6 124 18 134/86 (102) 94 Room Air 02/03/21 11:25 2 I&O- Last 24 Hours up to 6 AM 02/05/21 06:00 Intake Total 1733 ml Output Total 3340 ml Balance -1607 ml Laboratory Data 24H LABS Laboratory Tests 2 02/05/21 04:45: Anion Gap 9, Glomerular Filtration Rate 33.7L, Calcium Level 8.4L, Magnesium Level 1.5L, Total Bilirubin 0.2, Aspartate Amino Transf (AST/SGOT) 16, Alanine Aminotransferase (ALT/SGPT) 15, Alkaline Phosphatase 310H, Total Protein 6.5, Albumin 2.5L, Albumin/Globulin Ratio 0.6L CBC/BMP Laboratory Tests 02/05/21 04:45 Microbiology Microbiology 02/02/21 Blood Culture - Preliminary, Resulted No Growth after 48 hours. All Specime... 02/02/21 Blood Culture - Preliminary, Resulted No Growth after 48 hours. All Specime... 02/02/21 Blood Culture - Preliminary, Resulted No Growth after 72 hours. All specime... 02/02/21 Urine Culture - Final, Complete Pseudomonas Aeruginosa 02/02/21 Respiratory Virus Panel (PCR) (VANDANA) - Final, Complete Current Medications Current Medications Medications (Trade) Dose Ordered Sig/Felix Route PRN Reason Start Time Stop Time Status Last Admin Dose Admin Acetaminophen (Tylenol Tab) 650 mg Q4H PRN NG PAIN OR FEVER 02/02/21 21:35 02/03/21 21:26 Acetaminophen (Tylenol Tab) 650 mg Q4H PRN PO PAIN OR FEVER 02/02/21 17:35 02/02/21 20:09 DC Al Hydrox/Mg Hydrox/Simethicone (Mylanta) 30 ml DAILY PRN PO DYSPEPSIA 02/02/21 17:35 Albuterol Sulfate (Proventil, Ventolin Hfa) 2 puff Q4H PRN INH SHORTNESS OF BREATH 02/02/21 19:55 Aspirin (Aspirin Chewable) 81 mg QHS NG 02/02/21 21:00 02/04/21 21:37 Atorvastatin Calcium (Lipitor) 40 mg DAILY NG 02/03/21 09:00 02/05/21 08:02 Dextrose (Dextrose 50%) 50 ml STAT STAT IV 02/02/21 15:24 02/02/21 15:25 DC 02/02/21 15:32 Dextrose/Sodium Chloride 1,000 ml @ 150 mls/hr Q6H40M IV 02/02/21 20:15 02/05/21 12:30 Docusate Sodium (Colace Liquid) 100 mg BID GT 02/05/21 09:00 Docusate Sodium (Colace Liquid) 100 mg BID NG 02/02/21 21:00 02/05/21 08:09 DC 02/05/21 08:05 Docusate Sodium (Colace) 100 mg BID PO 02/02/21 21:00 02/02/21 21:10 DC Heparin Sodium (Porcine) (Heparin) 5,000 units Q8H SC 02/02/21 22:00 02/05/21 13:26 Home Med (Med Rec Complete!) ASDIRECTED XX 02/02/21 15:50 02/02/21 15:54 DC Insulin Human Regular (HumuLIN R INSULIN) 5 units STAT STAT IV 02/02/21 20:42 02/02/21 20:45 DC 02/02/21 21:43 Levetiracetam (Keppra) 500 mg DAILY NG 02/03/21 09:00 02/05/21 08:02 Levothyroxine Sodium (Synthroid) 50 mcg DAILY@0600 NG 02/03/21 06:00 02/05/21 06:14 Magnesium Hydroxide (Milk Of Magnesia) 30 ml DAILY PRN PO CONSTIPATION 02/02/21 17:35 Magnesium Oxide (Mag-Ox) 400 mg BID GT 02/05/21 09:00 02/05/21 08:02 Meropenem 1 gm/IV Miscellaneous Supplies 50 ml @ 100 mls/hr Q12H IV 02/03/21 00:00 02/05/21 12:30 Ondansetron HCl (ZOFRAN INJection) 4 mg Q4HP PRN IV NAUSEA OR VOMITING 02/05/21 13:30 Ondansetron HCl (ZOFRAN INJection) 4 mg Q6HP PRN IV NAUSEA OR VOMITING 02/05/21 04:15 02/05/21 13:29 DC 02/05/21 04:38 Pantoprazole Sodium (Protonix) 40 mg DAILY IV 02/03/21 09:00 02/05/21 08:01 Phenytoin (DILANTIN INJection) 200 mg Q8H IV 02/03/21 06:00 02/05/21 13:26 Polyethylene Glycol (Miralax) 1 pkt DAILYPRN PRN GT CONSTIPATION 02/05/21 08:05 Promethazine HCl (Phenergan) 25 mg Q4HP PRN PO NAUSEA OR VOMITING 02/05/21 13:30 02/05/21 13:48 Senna (Senokot) 2 tab QHS GT 02/05/21 21:00 Sodium Bicarbonate (Sodium Bicarbonate) 50 meq STAT STAT IV 02/02/21 15:07 02/02/21 15:10 DC 02/02/21 15:31 Sodium Chloride 1,000 ml @ 150 mls/hr Q6H40M IV 02/02/21 20:10 02/02/21 20:14 DC Allergies Coded Allergies: Cephalosporins (Verified Allergy, Intermediate, rash, 12/27/19) Sulfa (Sulfonamide Antibiotics) (Verified Allergy, Mild, itchy, 12/27/19) oxycodone (Verified Allergy, Mild, itchy, 12/27/19) hydrocodone (Verified Adverse Reaction, Intermediate, chest pain, 12/27/19) Veronica Lee MD Feb 05, 2021 15:01
[2021-02-05 15:34] LABS: HEMATOCRIT 35.3 % (36.0-47.0); HEMOGLOBIN 11.1 g/dl (12.0-15.5); MEAN CORPUSCULAR HEMOGLOBIN 25.9 pg (27.0-33.0); MEAN CORPUSCULAR HGB CONC 31.4 g/dl (32.0-36.5); MEAN CORPUSCULAR VOLUME 82.5 fl (80.0-96.0); PLATELET COUNT, AUTOMATED 326 10^3/uL (150-450); RED BLOOD COUNT 4.28 10^6/uL (4.00-5.40); WHITE BLOOD COUNT 12.8 10^3/uL (4.0-10.0)
[2021-02-05 16:00] VITALS: BP 141/94
[2021-02-05] MEDS: ONDANSETRON 4MG/2ML VIAL IV PRN (17:55)
[2021-02-05] MEDS: ASPIRIN 81 MG CHEW TABLET NG SCH (19:49)
[2021-02-05 20:00] VITALS: BP 136/93
[2021-02-05] MEDS ORDERED: SENNA 8.6 MG TAB (SENOKOT) GT SCH (21:00)
[2021-02-06] VITALS (8 sets, daily range): BP systolic 151–176; BP diastolic 80–105
[2021-02-06] MEDS: D5W/0.45% SODIUM CHLORIDE 1,000 ML IV SCH (04:15)
[2021-02-06] MEDS: LEVOTHYROXINE 50MCG TABLET (0.05MG) NG SCH (05:00)
[2021-02-06] MEDS: PHENYTOIN INJ 250 MG/5 ML VIAL (J1165) IV SCH ×3 (05:01→20:57)
[2021-02-06] MEDS: HEPARIN SOD (PORCINE) 5000UNITS/ML 1ML VIAL/SYRINGE SC SCH ×3 (05:01→20:32)
[2021-02-06 06:19] LABS: HEMATOCRIT 33.2 % (36.0-47.0); HEMOGLOBIN 10.4 g/dl (12.0-15.5); MEAN CORPUSCULAR HEMOGLOBIN 25.9 pg (27.0-33.0); MEAN CORPUSCULAR HGB CONC 31.3 g/dl (32.0-36.5); MEAN CORPUSCULAR VOLUME 82.6 fl (80.0-96.0); PLATELET COUNT, AUTOMATED 377 10^3/uL (150-450); RED BLOOD COUNT 4.02 10^6/uL (4.00-5.40); WHITE BLOOD COUNT 15.2 10^3/uL (4.0-10.0)
[2021-02-06 06:47] LABS: ALBUMIN 2.8 GM/DL (3.2-5.2); BILIRUBIN,TOTAL 0.3 MG/DL (0.2-1.0); CALCIUM LEVEL 9.5 MG/DL (8.5-10.1); CREATININE FOR GFR 1.53 MG/DL (0.55-1.30); GLOMERULAR FILTRATION RATE 37.8 (>51); MAGNESIUM LEVEL 1.9 MG/DL (1.8-2.4); POTASSIUM SERUM 4.3 MEQ/L (3.5-5.1); TOTAL PROTEIN 6.9 GM/DL (6.4-8.2)
[2021-02-06] MEDS ORDERED: FLEET OIL RETENTION ENEMA PR ONE ×2 (07:55→16:00)
[2021-02-06] MEDS: ATORVASTATIN 20 MG TAB NG SCH (08:47)
[2021-02-06] MEDS: PANTOPRAZOLE 40MG VIAL (C9113 PER 1) IV SCH (08:47)
[2021-02-06] MEDS: MAGNESIUM OXIDE 400MG TAB (MAG-OX) GT SCH (08:48)
[2021-02-06] MEDS: levETIRAcetam 250MG TABLET (KEPPRA) NG SCH (08:48)
[2021-02-06] MEDS: LACTULOSE 20 GM/30 ML SYRUP UD PO SCH ×3 (08:50→12:47)
[2021-02-06] MEDS: DOCUSATE SOD LIQ 100MG/10ML UDC GT SCH ×2 (08:50→09:00)
[2021-02-06] MEDS: ONDANSETRON 4MG/2ML VIAL IV PRN (09:01)
[2021-02-06] MEDS: MEROPENEM INJ 1 GM in IV 1 EA IV SCH (12:07)
--- NOTE | 2021-02-06 13:18 | REP ---
INDICATION: abd distention. COMPARISON: 01/09/2021. TECHNIQUE: Two AP views abdomen and pelvis. FINDINGS: Moderate air and fecal material seen throughout the colon. There is no radiographic evidence of small bowel obstruction. There is a nephrostomy tube bilaterally. Metallic clips are seen in the pelvis. IMPRESSION: Moderate air and fecal material throughout the colon. No radiographic evidence of small bowel obstruction. <Electronically signed by Bran Chirinos > 02/06/21 [id number]
--- NOTE | 2021-02-06 14:51 | IPNPDOC ---
Date Seen The patient was seen on 02/06/21. Progress Note SUBJECTIVE: Nausea with continued constipation. Passing gas, given 2 mineral oil enemas today- awaiting bowel movement. No SBO on KUB with improved nausea this afternoon. Cr further improved. Poor PO intake. Denies chest pain, fevers, shortness of breath. OBJECTIVE: PHYSICAL EXAMINATION: VITAL SIGNS: please see below General: NAD, comfortable in bed, AAOX3 HEENT: PERRLA, EOMI, sclerae clear, NG tube in place Neck: supple, normal ROM, no JVD Respiratory: lungs CTAB, no wheeze, no rales, no crackles CVS: RRR, normal S1, S2, no murmurs BACK: bilateral nephrostomy tubes draining to bedside bag Abdo: Soft, nontender. Orellana in place in stoma draining to bag . Extremities: no edema, pulses 2+ MSK: no joint deformities, normal ROM Neuro: 3/5 strength in all extremities, reflexes in tact. No sensory or motor loss. CN 2-12 intact Psych: Mood and affect appropriate LABORATORY DATA, IMAGING STUDIES, MICROBIOLOGY: Please see below. ASSESSMENT: 55 yo F with a hx of primary progressive MS, wheelchair bound, neurogenic bladder s/p cystectomy with diverting ileal conduit, bilateral h ydronephrosis 2/2 bilateral obstructing ovarian masses, recurrent UTI (most recently pseudomonas), COPD, HTN, CKD III, admitted for sepsis 2/2 UTI, as well as metabolic encephalopathy. The setting of seizure/MS as well as sepsis. PLAN: Acute renal failure on chronic kidney disease stage III 2/2 to obstruction from b/l hydronephrosis to ovarian mass -Post-op day 3 for b/l nephrostomy tubes being placed, good output - will likely need to be kept in until obstructions are dealt with. Can f/u with Dr. Perales Q3 months for this. -Cr improving slowly -C/w IVF for now and stop when taking good PO intake. -daily labs -Nephrology consulted but likely will be signing off due to significant im provement Constipation, chronic -Given aggressive bowel regimen, getting second fleet oil enema today -Has history of issues getting bowels going after acute illness -KUB today neg for obstruction -C/w regimen, may give second lactulose dose today if needed Bilateral hydronephrosis secondary to ovarian mass, chronic -POD 3 b/l nephrostomy tube placement 02/03/21, good output - to keep as o/p -S/p cystectomy and ileal conduit (3 years ago) -Orellana catheter in stoma was replaced in clinic on 01/31/[address] Everett, and is draining urine appropriately, and conduit appears normal on CT- will need to keep per Dr. Saha -Per urology, further intervention to be done in [place] for stomal stenosis and bilateral ovarian masses causing hydronephrosis -Prior hospitalist (Dr. Tan) spoke to patient's normal urologist medical transcription radiology in office of Dr. Graves (specialist urologist at [facility] following pt) - Dr. Schaefer. Does not believe a revision is appropriate in setting of acute sep sis. Agrees with plan for bilateral nephrostomy tubes, management of sepsis. Once patient recovered, outpatient plan for revision. -Monitor daily labs -Urology discussed case with me (Dr. Saha) and agrees with above Epilepsy/tonic clonic seizure on 02/01/21 - No seizure activity seen since admission - Phenytoin levels wnl, pending keppra levels - takes keppra 500 mg BID, phenytoin 500 mg qhs at home and is complaint with all meds - EEG done- f/u results - D/w Dr. Morocho on 02/03/21. Will tb with them after keppra level arrives - phenytoin to 200 mg TID IV, keppra 500 mg NG daily Recurrent Pseudomonas UTI, hx of neurogenic bladder -On meropenem (Day 4) and plan is to continue for total of 14 days -ID consulted, f/u notes Anemia - No s/s of bleeidng - trend CBC daily - transfuse for Hgb < 8 Primary progressive multiple sclerosis, wheelchair bound, neurogenic bladder - Follows with a neurologist in [place] at [facility]. - had MRI in 01/2021 without acute changes - neurology consulted for seizure disorder - holding amantadine Neurogenic bowel -Chronic COPD -Stable on RA -compensated Hx of Hypertension - will hold antihypertensives in setting of sepsis torticollis, pseudobulbar affect -Chronic B12 deficiency -Supplement migraines, -No complaints obesity, -Complicating care anxiety, depression -Chronic Chronic insomnia -PRN MED Resolved issues: Acute metabolic encephalopathy likely multifactorial or individually due to sepsis 2/2 to recurrent pseudomonas UTI vs. possible seizure activity DISPOSITION: Currently inpatient status, c/w PT/OT. ID following. Plan is discharge home when medically improved. VS, I&O, 24H, Fishbone Vital Signs/I&O Vital Signs Date Time Temp Pulse Resp B/P (MAP) Pulse Ox O2 Delivery O2 Flow Rate FiO2 02/06/21 12:00 97.9 117 19 168/90 (116) 91 Room Air 02/03/21 11:25 2 I&O- Last 24 Hours up to 6 AM 02/06/21 06:00 Intake Total 1850 ml Output Total 1375 ml Balance 475 ml Laboratory Data 24H LABS Laboratory Tests 2 02/05/21 15:08: Nucleated Red Blood Cells % (auto) 0.0 02/06/21 04:50: Nucleated Red Blood Cells % (auto) 0.0, Anion Gap 9, Glomerular Filtration Rate 37.8L, Calcium Level 9.5, Magnesium Level 1.9, Total Bilirubin 0.3, Aspartate Amino Transf (AST/SGOT) 13, Alanine Aminotransferase (ALT/SGPT) 13, Alkaline Phosphatase 315H, Total Protein 6.9, Albumin 2.8L, Albumin/Globulin Ratio 0.7L 02/06/21 14:01: Ammonia 10 CBC/BMP Laboratory Tests 02/05/21 15:08 02/06/21 04:50 Microbiology Microbiology 02/02/21 Blood Culture - Preliminary, Resulted No Growth after 72 hours. All specime... 02/02/21 Blood Culture - Preliminary, Resulted No Growth after 72 hours. All specime... 02/02/21 Blood Culture - Preliminary, Resulted No Growth after 72 hours. All specime... 02/02/21 Urine Culture - Final, Complete Pseudomonas Aeruginosa 02/02/21 Respiratory Virus Panel (PCR) ([facility]) - Final, Complete Veronica Lee MD Feb 06, 2021 14:51
[2021-02-06] MEDS ORDERED: MIRALAX *UNIT DOSE* 17GM PACKET PO PRN (14:55)
[2021-02-06] MEDS: LACTOBACILLUS ACIDOPHILUS CAP (BACID) PO SCH (17:24)
[2021-02-06] MEDS ORDERED: LACTULOSE 20 GM/30 ML SYRUP UD PO ONE (19:00)
[2021-02-06] MEDS: ARIPiprazole 2 MG TAB PO SCH (20:28)
[2021-02-06] MEDS: ASPIRIN 81 MG CHEW TABLET PO SCH (20:28)
[2021-02-06] MEDS: hydrOXYzine 50 MG TAB PO SCH (20:29)
[2021-02-06] MEDS: DULoxetine 30 MG CAP (CYMBALTA) PO SCH (20:29)
[2021-02-06] MEDS: SENNA 8.6 MG TAB (SENOKOT) PO SCH (20:30)
[2021-02-06] MEDS: ACYCLOVIR 200 MG CAPSULE PO SCH (20:30)
[2021-02-06] MEDS: PANTOPRAZOLE 40MG TAB (PROTONIX) PO SCH (20:30)
[2021-02-06] MEDS: hydrALAZINE 20MG/ML 1ML VIAL (J0360 PER 20MG) IV SCH (20:30)
[2021-02-06] MEDS: PREGABALIN 100 MG CAP (LYRICA) PO SCH (20:30)
[2021-02-06] MEDS: BACLOFEN 10 MG TAB PO SCH (20:31)
[2021-02-06] MEDS: clonazePAM 1 MG TAB PO SCH (20:31)
[2021-02-06] MEDS: MAGNESIUM OXIDE 400MG TAB (MAG-OX) PO SCH (20:31)
[2021-02-06] MEDS: DOCUSATE SOD LIQ 100MG/10ML UDC PO SCH (20:39)
[2021-02-07] VITALS: BP 112/74
[2021-02-07] MEDS: MEROPENEM INJ 1 GM in IV 1 EA IV SCH ×2 (00:06→12:01)
[2021-02-07 04:00] VITALS: BP 110/64
[2021-02-07] MEDS: hydrALAZINE 20MG/ML 1ML VIAL (J0360 PER 20MG) IV SCH ×3 (04:00→20:00)
[2021-02-07 05:39] LABS: HEMATOCRIT 27.5 % (36.0-47.0); HEMOGLOBIN 8.4 g/dl (12.0-15.5); MEAN CORPUSCULAR HEMOGLOBIN 25.8 pg (27.0-33.0); MEAN CORPUSCULAR HGB CONC 30.5 g/dl (32.0-36.5); MEAN CORPUSCULAR VOLUME 84.4 fl (80.0-96.0); PLATELET COUNT, AUTOMATED 266 10^3/uL (150-450); RED BLOOD COUNT 3.26 10^6/uL (4.00-5.40); WHITE BLOOD COUNT 11.8 10^3/uL (4.0-10.0)
[2021-02-07] MEDS: HEPARIN SOD (PORCINE) 5000UNITS/ML 1ML VIAL/SYRINGE SC SCH ×3 (05:56→21:55)
[2021-02-07] MEDS: LEVOTHYROXINE 50MCG TABLET (0.05MG) PO SCH (05:56)
[2021-02-07] MEDS: PHENYTOIN INJ 250 MG/5 ML VIAL (J1165) IV SCH (05:56)
[2021-02-07 06:05] LABS: ALBUMIN 2.5 GM/DL (3.2-5.2); BILIRUBIN,TOTAL 0.2 MG/DL (0.2-1.0); CALCIUM LEVEL 8.1 MG/DL (8.5-10.1); CREATININE FOR GFR 1.5 MG/DL (0.55-1.30); GLOMERULAR FILTRATION RATE 38.7 (>51); MAGNESIUM LEVEL 2.1 MG/DL (1.8-2.4); POTASSIUM SERUM 2.6 MEQ/L (3.5-5.1); TOTAL PROTEIN 5.8 GM/DL (6.4-8.2)
[2021-02-07] MEDS ORDERED: POTASSIUM CHLORIDE 10% LIQ 20 MEQ/15 ML UDC PO ONE (06:15)
[2021-02-07 08:00] VITALS: BP 120/70
--- NOTE | 2021-02-07 08:12 | IPN ---
PROGRESS NOTE DATE: 02/06/2021 SUBJECTIVE: Mrs. Yang was initially seen for acute renal failure. She was noticed to have bilateral hydronephrosis due to obstruction at the urostomy anastomosis of ureters. She underwent bilateral nephrostomy tube placement by interventional radiology and kidney function has been improving with creatinine down to 1.5 today. Her electrolytes are stable. From a nephrology standpoint, she does not need continuous follow-up. Her kidney function is improving as the obstruction has been removed. I am not contributing much to her care and I am signing off her case. Please do not hesitate to call back should you need any further assistance.
--- NOTE | 2021-02-07 08:12 | IPN ---
INRECTIOUS DISEASE PROGRESS NOTE DATE: 02/06/2021 ATTENDING PHYSICIAN: Dr. Salvatore Lobato SUBJECTIVE: Elise was seen and examined this afternoon by the Infectious Disease Service while lying in her Progressive Care Unit bed. She is accompanied in the room today by her , Robby. Her biggest complaint at this time centers around constipation. She has received two enemas today and has not had any significant stool to this point. Her Hospitalist Physician, Dr. Lee, ordered an abdominal x-ray showing stool but was unremarkable for any type of obstruction. Overall, Elise feels as though her focus and concentration are much improved over the past 48 hours. In terms of her strength and energy, she still feels "wiped out". Her NG tube was removed yesterday and she is now on a level 3 diet, all of which is being overseen by Speech. She is tolerating this escalation in diet well, although she does report almost "forcing herself to eat" due to a lack of appetite. She also reports that over the past day and a half she has had intermittent nausea and has had some associated dry heaving along with a few episodes of emesis that brought up mostly sputum. The patient denies any significant pain at this time. She also denies any fever, chills, night sweats, chest pain, palpitations, shortness of breath, cough, or abdominal pain. OBJECTIVE: PHYSICAL EXAMINATION: VITAL SIGNS: Temperature of 97.6 (T-max 98.8), heart rate 119, respiratory rate 19, blood pressure of 168/102, SpO2 of 91% on room air. BMI 40.4. GENERAL APPEARANCE: Obese, tired appearing female, alert and oriented x3, responding to all questions and commands appropriately. She does appear slightly older than stated age. HEENT: There are some healed scars on her forehead, right at the hairline. Otherwise normocephalic and atraumatic. Non-injected and anicteric sclerae. There is some mild conjunctival pallor. There is no pharyngeal erythema or exudate appreciated. Mucous membranes are moist. NECK: Wide, supple. Neck habitus makes it somewhat challenging assessing lymphadenopathy, but no lymphadenopathy was appreciated. CARDIOVASCULAR: Tachycardic rate, regular rhythm. Normal S1, S2. No significant murmurs or rubs are appreciated. 2+ radial pulses bilaterally. RESPIRATORY: She is breathing on room air. Decreased breath sounds and tidal volume bilaterally, otherwise no adventitious breath sounds are appreciated. Symmetric chest expansion. CHEST: No chest wall tenderness appreciated. There is a port in place right upper chest and overlying skin is not erythematous or indurated. Gastrointestinal: Abdomen is obese with some moderate distention appreciated in the upper quadrants bilaterally. There is an ileal conduit in place right side of the abdomen which also has a Orellana catheter within the conduit. The tissue around the ostomy site appears to be in good viable status and there is some scant blood present in the Orellana catheter coming from the conduit site. Hypoactive bowel sounds throughout. There are healed vertical scars both superiorly and inferiorly of the umbilicus. No rigidity appreciated. BACK: There are bilateral nephrostomy tubes in place with 100 mL of serous fluid. The surrounding skin does not appear to be erythematous, indurated, and has no visible discharge. She does not have CVA tenderness bilaterally. GENITOURINARY: As mentioned, there is a Orellana catheter emanating from her conduit with approximately 50 mL collected of blood urine. EXTREMITIES: 1+ pitting edema of right lower extremity, and non-pitting edema of left lower extremity. She has exquisite tenderness to even mild palpation of bilateral lower extremities. She has good capillary refill. Some distal erythema on her toes bilaterally. 2+ radial pulses bilaterally. There is a tattoo present over the dorsum of the right foot. She continues to have 1+ pitting edema of both her right and distal right upper extremity with some mild non-pitting edema of the left upper extremity and hand. NEUROLOGIC: Alert and oriented x3 today. She is following commands appropriately. Non-dysarthric speech. She is moving all four extremities but in a slower, methodic manner. MUSCULOSKELETAL: 4/5 muscle strength in bilateral lower extremities. LABORATORY STUDIES: CBC - WBC 15.2, hemoglobin 10.4, hematocrit 33.2, platelet count 377,000. CMP - sodium 141, potassium 4.3, chloride 109, bicarbonate 23, BUN 20, creatinine 1.53, glucose 104, calcium 9.5, magnesium 1.9, total bilirubin 0.3, AST 13, ALT 13, alkaline phosphatase 315, ammonia 10, total protein 6.9, albumin 2.8. Microbiology Urine culture from 02/02/2021 showing growth of pseudomonas aeruginosa taken from her Orellana port in the ileal conduit. Three blood cultures were taken on 02/02/21, two from venous source and one from the port in right upper chest. At this time all three blood cultures from 02/02 have had no growth after 72 hours. IMAGING: New imaging since day of admission was an abdominal flat plate radiograph with documented impression of "moderate air and fecal material throughout the colon. No radiographic evidence of small-bowel obstruction". The patient's did state an EEG was performed yesterday (02/05/2021), but at this point no dictated impression from said study is available in the medical record system. IMPRESSION AND PLAN: 1. Sepsis (WBC 15.2, heart rate 119) secondary to pseudomonas aeruginosa urinary tract infection in the setting of recurrent urinary tract infections with ileal conduit in place. She is currently on day number four of Meropenem antimicrobial administration. She was just recently admitted 2 weeks ago and had at that time both pseudomonas aeruginosa bacteremia and urinary tract infection. On that previous admission, she was treated with 6 days of inpatient Meropenem and a subsequent 5 days of outpatient Meropenem via PICC line. Due to the fact that she had at least 10 days of Meropenem coverage just 2 weeks ago, and then subsequently developed another pseudomonas urinary tract infection, we recommend that the duration of treatment with Meropenem be for a total of 14 days. She is currently on day four of treatment and she should receive coverage through February 16. 2. Bilateral hydroureteronephrosis secondary to bilateral ovarian cysts status post bilateral nephrostomy tube placement on 02/03/2021 - The patient has a scheduled outpatient appointment with a urologist in [place] next , and she also has an March 04 outpatient appointment with Gynecology, both to address the hydroureteronephrosis and the presence of the obstructing cysts. On speaking with her Hospitalist Physician, Dr. Lee, the current plan via Urology (currently seeing her here at [facility]), is that she should keep the nephrostomy tubes in place until outpatient workup by both Urology and Gynecology decides how to address the obstruction. 3. Tonic-clonic witnessed seizure in the setting of seizure disorder, per the patient's . An EEG was performed yesterday (02/05), but to this point, results have yet to be uploaded into the medical record system. She continues on 500 mg Keppra daily as well as Phenytoin 200 mg q. 8 hours. Dictated by Resident Physician Uday Sheth on behalf of Attending Physician Dr. Flori Lobato. MTDD
[2021-02-07] MEDS: MAGNESIUM OXIDE 400MG TAB (MAG-OX) PO SCH ×2 (08:47→21:55)
[2021-02-07] MEDS: BACLOFEN 10 MG TAB PO SCH ×2 (08:47→21:56)
[2021-02-07] MEDS: ATORVASTATIN 20 MG TAB PO SCH (08:48)
[2021-02-07] MEDS: PREGABALIN 100 MG CAP (LYRICA) PO SCH ×2 (08:48→21:55)
[2021-02-07] MEDS: LACTOBACILLUS ACIDOPHILUS CAP (BACID) PO SCH ×2 (08:48→17:31)
[2021-02-07] MEDS: AMANTADINE 100MG TABLET PO SCH (08:48)
[2021-02-07] MEDS: ACYCLOVIR 200 MG CAPSULE PO SCH ×2 (08:48→21:57)
[2021-02-07] MEDS: DULoxetine 30 MG CAP (CYMBALTA) PO SCH ×2 (08:48→21:56)
[2021-02-07] MEDS: PANTOPRAZOLE 40MG TAB (PROTONIX) PO SCH ×2 (08:48→21:56)
[2021-02-07] MEDS: DOCUSATE SOD LIQ 100MG/10ML UDC PO SCH (08:49)
[2021-02-07] MEDS: levETIRAcetam 250MG TABLET (KEPPRA) PO SCH (08:49)
[2021-02-07] MEDS: hydrOXYzine 50 MG TAB PO SCH ×2 (08:49→21:56)
[2021-02-07] MEDS: LACTULOSE 20 GM/30 ML SYRUP UD PO SCH (09:00)
[2021-02-07 09:40] LABS: ALBUMIN 2.4 GM/DL (3.2-5.2); BILIRUBIN,TOTAL 0.2 MG/DL (0.2-1.0); CALCIUM LEVEL 8.4 MG/DL (8.5-10.1); CREATININE FOR GFR 1.56 MG/DL (0.55-1.30); POTASSIUM SERUM 2.6 MEQ/L (3.5-5.1); TOTAL PROTEIN 6.6 GM/DL (6.4-8.2)
[2021-02-07] MEDS: POTASSIUM CHLORIDE 10 MEQ SR TABLET PO SCH ×3 (10:04→21:57)
[2021-02-07] MEDS: D5W/0.45% SODIUM CHLORIDE 1,000 ML IV SCH (10:05)
[2021-02-07 11:53] VITALS: BP 109/63
[2021-02-07] MEDS: ONDANSETRON 4MG/2ML VIAL IV PRN (12:10)
--- NOTE | 2021-02-07 12:22 | EEG ---
ELECTROENCEPHALOGRAM DATE: 02/05/2021 DIAGNOSIS: Seizure. EEG# [id number]. REFERRING PHYSICIAN: Yuriy Tan MD HISTORY: Patient is a 55-year-old woman with history of progressive multiple sclerosis, cystectomy, and frequent urinary tract infection who presented to [facility] due to altered mental status. She also has a history of kidney disease, recurrent urinary tract infection, hydronephrosis, etc. She is currently taking meropenem, Protonix, atorvastatin, phenytoin, Keppra. TECHNICAL DESCRIPTION: This digital EEG was recorded by 21-scalp, ear, and two EKG electrodes and was reviewed in bipolar and referential montages following reformatting in 10-20 international electrode placement system. INTERPRETATION: Patient was noted to be in awake and drowsy states during this EEG. Resting and awake background rhythm consisted of well-formed posterior dominant rhythm with anterior-posterior gradient comprising of 7 Hz theta activity measuring 15-40 microvolts in amplitude, which was symmetric and reactive to eye opening. Attenuation of posterior dominant rhythm was seen during transition into drowsiness. No sleep was achieved. Hyperventilation was not performed. Photic stimulation remained unremarkable. EKG revealed normal sinus rhythm. No focal, lateralizing, or epileptiform abnormalities were seen. No relevant clinical activity was noted. CONCLUSION: This EEG in awake and drowsy states is abnormal due to presence of mild generalized slowing and disorganization of background consistent with nonspecific mild diffuse cerebral dysfunction, such as seen in encephalopathy, due to multiple potential causes. No clear epileptiform abnormalities were seen. Clinical correlation is recommended.
--- NOTE | 2021-02-07 13:05 | IPNPDOC ---
Date Seen The patient was seen on 02/07/21. Progress Note SUBJECTIVE: 2 BM overnight, decreased nausea today. Multiple electrolyte abnormalities today, rechecked CMP and confirmed present. Received KCl supplement, repeat labs at 1 PM. Cr slightly increased. Appetite still poor but slowly improving. Denies chest pain, fevers, shortness of breath. OBJECTIVE: PHYSICAL EXAMINATION: VITAL SIGNS: please see below General: NAD, comfortable in bed, AAOX3 HEENT: PERRLA, EOMI, sclerae clear, NG tube in place Neck: supple, normal ROM, no JVD Respiratory: lungs CTAB, no wheeze, no rales, no crackles CVS: RRR, normal S1, S2, no murmurs BACK: bilateral nephrostomy tubes draining to bedside bag Abdo: Soft, nontender. Orellana in place in stoma draining to bag . Extremities: no edema, pulses 2+ MSK: no joint deformities, normal ROM Neuro: 3/5 strength in all extremities, reflexes in tact. No sensory or motor loss. CN 2-12 intact Psych: Mood and affect appropriate LABORATORY DATA, IMAGING STUDIES, MICROBIOLOGY: Please see below. ASSESSMENT: 55 yo F with a hx of primary progressive MS, wheelchair bound, neurogenic bladder s/p cystectomy with diverting ileal conduit, bilateral hydronephrosis 2/2 bilateral obstructing ovarian masses, recurrent UTI (most recently pseudomonas), COPD, HTN, CKD III, admitted for sepsis 2/2 UTI, as well as metabolic encephalopathy. The setting of seizure/MS as well as sepsis. PLAN: Recurrent Pseudomonas UTI -WBC 11.8, afebrile -On meropenem (Day 5) and plan is to continue for total of 14 days -ID following Hypernatremia, hyperchloridemia acute -Patient has been on D5Q 0.45 NSS at low/gentle rate- has not received bolus or additional treatments that could have precipitated this finding -U/O not increased -Will f/u labs at 13:00, U osmo, U sodium -If persists, discuss with nephrology Hypokalemia, acute -Low at 2.6, given 40 mEq KCL with repeat showing same at 2.6 -Given 50 mEq this AM, f/u repeat labs at 13:00 -Not on meds that would cause this at this time. Acute renal failure on chronic kidney disease stage III 2/2 to obstruction from b/l hydronephrosis to ovarian mass -Post-op day 4 for b/l nephrostomy tubes being placed, good output - will likely need to be kept in until obstructions are dealt with. Can f/u with Dr. Perales Q3 months for this. -Cr slightly increased to 1.56 -Increased IVFs -daily labs -Nephrology consulted but likely will be signing off due to significant improvement Constipation, chronic - improved -Given aggressive bowel regimen, had 2 BM overnight -Has history of issues getting bowels going after acute illness -KUB neg for obstruction -C/w regimen Bilateral hydronephrosis secondary to ovarian mass, chronic -POD 4 b/l nephrostomy tube placement 02/03/21, good output - to keep as o/p -S/p cystectomy and ileal conduit (3 years ago) -Orellana catheter in stoma was replaced in clinic on 01/31/[address] Everett, and is draining urine appropriately, and conduit appears normal on CT- will need to keep per Dr. Saha -Per urology, further intervention to be done in [place] for stomal stenosis and bilateral ovarian masses causing hydronephrosis -Prior hospitalist (Dr. Tan) spoke to patient's normal urologist on air talent in office of Dr. Graves (specialist urologist at [facility] following pt) - Dr. Schaefer. Does not believe a revision is appropriate in setting of acute sepsis. Agrees with plan for bilateral nephrostomy tubes, management of sepsis. Once patient recovered, outpatient plan for revision. -Monitor daily labs -Urology discussed case with me (Dr. Saha) and agrees with above Epilepsy/tonic clonic seizure on 02/01/21 - No seizure activity seen since admission - Phenytoin levels wnl but transitioned to PO formulation - recheck level again on 02/12/21 to ensure still therapeutic with different bioavailability. Ppending keppra levels - takes keppra 500 mg BID, phenytoin 500 mg qhs at home and is complaint with all meds - EEG done- f/u results - D/w Dr. Morocho on 02/03/21. Will tb with them after keppra level arrives - C/w phenytoin 200 mg TID, keppra 500 mg daily Anemia - H/H 8.4/27.5 - No s/s of bleeding - trend CBC daily - transfuse for Hgb < 8 Primary progressive multiple sclerosis, wheelchair bound, neurogenic bladder - Follows with a neurologist in [place] at [facility]. - had MRI in 01/2021 without acute changes - neurology consulted for seizure disorder - holding amantadine Neurogenic bowel -Chronic COPD -Stable on RA -compensated Hx of Hypertension - will hold antihypertensives in setting of sepsis torticollis, pseudobulbar affect -Chronic B12 deficiency -Supplement migraines, -No complaints obesity, -Complicating care anxiety, depression -Chronic Chronic insomnia -PRN MED Resolved issues: Acute metabolic encephalopathy likely multifactorial or individually due to sepsis 2/ to recurrent pseudomonas UTI vs. possible seizure activity DISPOSITION: Currently inpatient status, c/w PT/OT. ID following. Plan is discharge home or to rehab when medically improved. VS, I&O, 24H, Fishbone Vital Signs/I&O Vital Signs Date Time Temp Pulse Resp B/P (MAP) Pulse Ox O2 Delivery O2 Flow Rate FiO2 02/07/21 11:53 97.1 100 18 109/63 (78) 92 Room Air 02/03/21 11:25 2 I&O- Last 24 Hours up to 6 AM 02/07/21 05:59 Intake Total 1320 ml Output Total 1050 ml Balance 270 ml Laboratory Data 24H LABS Laboratory Tests 2 02/06/21 14:01: Ammonia 10 02/07/21 04:46: Nucleated Red Blood Cells % (auto) 0.0, Anion Gap 9, Glomerular Filtration Rate 38.7L, Calcium Level 8.1L, Magnesium Level 2.1, Total Bilirubin 0.2, Aspartate Amino Transf (AST/SGOT) 17, Alanine Aminotransferase (ALT/SGPT) 14, Alkaline Phosphatase 279H, Total Protein 5.8L, Albumin 2.5L, Albumin/Globulin Ratio 0.8L 02/07/21 08:03: Anion Gap 7L, Glomerular Filtration Rate 37.0L, Calcium Level 8.4L, Total Bilirubin 0.2, Aspartate Amino Transf (AST/SGOT) 14, Alanine Aminotransferase (ALT/SGPT) 14, Alkaline Phosphatase 275H, Total Protein 6.6, Albumin 2.4L, Albumin/Globulin Ratio 0.6L CBC/BMP Laboratory Tests 02/07/21 04:46 02/07/21 08:03 Microbiology Microbiology 02/02/21 Blood Culture - Preliminary, Resulted No Growth after 72 hours. All specime... 02/02/21 Blood Culture - Preliminary, Resulted No Growth after 72 hours. All specime... 02/02/21 Blood Culture - Preliminary, Resulted No Growth after 72 hours. All specime... 02/02/21 Urine Culture - Final, Complete Pseudomonas Aeruginosa 02/02/21 Respiratory Virus Panel (PCR) (VANDANA) - Final, Complete Current Medications Current Medications Medications (Trade) Dose Ordered Sig/Felix Route PRN Reason Start Time Stop Time Status Last Admin Dose Admin Acetaminophen (Tylenol Tab) 650 mg Q4H PRN NG PAIN OR FEVER 02/02/21 21:35 02/06/21 14:57 DC 02/03/21 21:26 Acetaminophen (Tylenol Tab) 650 mg Q4H PRN PO PAIN OR FEVER 02/06/21 17:35 Acetaminophen (Tylenol Tab) 650 mg Q4H PRN PO PAIN OR FEVER 02/02/21 17:35 02/02/21 20:09 DC Acyclovir (Zovirax) 400 mg BID PO 02/06/21 21:00 02/07/21 08:48 Al Hydrox/Mg Hydrox/Simethicone (Mylanta) 30 ml DAILY PRN PO DYSPEPSIA 02/02/21 17:35 Albuterol Sulfate (Proventil, Ventolin Hfa) 2 puff Q4H PRN INH SHORTNESS OF BREATH 02/02/21 19:55 Amantadine HCl (Symmetrel) 100 mg DAILY PO 02/07/21 09:00 02/07/21 08:48 Aripiprazole (AbiLIFY) 2 mg QHS PO 02/06/21 21:00 02/06/21 20:28 Aspirin (Aspirin Chewable) 81 mg QHS NG 02/02/21 21:00 02/06/21 14:57 DC 02/05/21 19:49 Aspirin (Aspirin Chewable) 81 mg QHS PO 02/06/21 21:00 02/06/21 20:28 Atorvastatin Calcium (Lipitor) 40 mg DAILY NG 02/03/21 09:00 02/06/21 14:57 DC 02/06/21 08:47 Atorvastatin Calcium (Lipitor) 40 mg DAILY PO 02/07/21 09:00 02/07/21 08:48 Baclofen (Lioresal) 40 mg BID PO 02/06/21 21:00 02/07/21 08:47 Clonazepam (KlonoPIN) 1 mg QHS PO 02/06/21 21:00 02/06/21 20:31 Dextrose (Dextrose 50%) 50 ml STAT STAT IV 02/02/21 15:24 02/02/21 15:25 DC 02/02/21 15:32 Dextrose/Sodium Chloride 1,000 ml @ 100 mls/hr Q10H IV 02/02/21 20:15 02/07/21 10:05 Docusate Sodium (Colace Liquid) 100 mg BID GT 02/05/21 09:00 02/06/21 14:57 DC 02/05/21 19:48 Docusate Sodium (Colace Liquid) 100 mg BID NG 02/02/21 21:00 02/05/21 08:09 DC 02/05/21 08:05 Docusate Sodium (Colace Liquid) 100 mg BID PO 02/06/21 21:00 02/07/21 09:48 DC 02/07/21 08:49 Docusate Sodium (Colace) 100 mg BID PO 02/07/21 21:00 Docusate Sodium (Colace) 100 mg BID PO 02/02/21 21:00 02/02/21 21:10 DC Duloxetine HCl (Cymbalta) 60 mg BID PO 02/06/21 21:00 02/07/21 08:48 Heparin Sodium (Porcine) (Heparin) 5,000 units Q8H SC 02/02/21 22:00 02/07/21 05:56 Home Med (Med Rec Complete!) ASDIRECTED XX 02/02/21 15:50 02/02/21 15:54 DC Hydralazine HCl (Apresoline) 5 mg Q8H IV 02/06/21 20:00 02/06/21 20:30 Hydroxyzine HCl (Atarax) 50 mg BID PO 02/06/21 21:00 02/07/21 08:49 Insulin Human Regular (HumuLIN R INSULIN) 5 units STAT STAT IV 02/02/21 20:42 02/02/21 20:45 DC 02/02/21 21:43 Lactobacillus Acidophilus (Bacid) 1 ea BIDWM PO 02/06/21 18:00 02/07/21 08:48 Lactulose (Cephulac) 30 ml DAILY PO 02/06/21 09:00 02/06/21 12:47 Levetiracetam (Keppra) 500 mg DAILY NG 02/03/21 09:00 02/06/21 14:57 DC 02/06/21 08:48 Levetiracetam (Keppra) 500 mg DAILY PO 02/07/21 09:00 02/07/21 08:49 Levothyroxine Sodium (Synthroid) 50 mcg DAILY@0600 NG 02/03/21 06:00 02/06/21 14:57 DC 02/06/21 05:00 Levothyroxine Sodium (Synthroid) 50 mcg DAILY@0600 PO 02/07/21 06:00 02/07/21 05:56 Magnesium Hydroxide (Milk Of Magnesia) 30 ml DAILY PRN PO CONSTIPATION 02/02/21 17:35 Magnesium Oxide (Mag-Ox) 400 mg BID GT 02/05/21 09:00 02/06/21 14:57 DC 02/06/21 08:48 Magnesium Oxide (Mag-Ox) 400 mg BID PO 02/06/21 21:00 02/07/21 08:47 Meropenem 1 gm/IV Miscellaneous Supplies 50 ml @ 100 mls/hr Q12H IV 02/03/21 00:00 02/07/21 12:01 Ondansetron HCl (ZOFRAN INJection) 4 mg Q4HP PRN IV NAUSEA OR VOMITING 02/05/21 13:30 02/07/21 12:10 Ondansetron HCl (ZOFRAN INJection) 4 mg Q6HP PRN IV NAUSEA OR VOMITING 02/05/21 04:15 02/05/21 13:29 DC 02/05/21 04:38 Pantoprazole Sodium (Protonix) 40 mg BID PO 02/06/21 21:00 02/07/21 08:48 Pantoprazole Sodium (Protonix) 40 mg DAILY IV 02/03/21 09:00 02/06/21 18:15 DC 02/06/21 08:47 Phenytoin (DILANTIN INJection) 200 mg Q8H IV 02/03/21 06:00 02/07/21 05:56 Polyethylene Glycol (Miralax) 1 pkt DAILYPRN PRN GT CONSTIPATION 02/05/21 08:05 02/06/21 14:57 DC Polyethylene Glycol (Miralax) 1 pkt DAILYPRN PRN PO CONSTIPATION 02/06/21 14:55 Potassium Chloride (Micro-K Extencaps) 30 meq Q2H PO 02/07/21 10:00 02/07/21 12:01 DC 02/07/21 12:01 Pregabalin (Lyrica) 300 mg BID PO 02/06/21 21:00 02/07/21 08:48 Promethazine HCl (Phenergan) 25 mg Q4HP PRN PO NAUSEA OR VOMITING 02/05/21 13:30 02/05/21 13:48 Senna (Senokot) 2 tab QHS GT 02/05/21 21:00 02/06/21 14:57 DC Senna (Senokot) 2 tab QHS PO 02/06/21 21:00 02/06/21 20:30 Sodium Bicarbonate (Sodium Bicarbonate) 50 meq STAT STAT IV 02/02/21 15:07 02/02/21 15:10 DC 02/02/21 15:31 Sodium Chloride 1,000 ml @ 150 mls/hr Q6H40M IV 02/02/21 20:10 02/02/21 20:14 DC Allergies Coded Allergies: Cephalosporins (Verified Allergy, Intermediate, rash, 12/27/19) Sulfa (Sulfonamide Antibiotics) (Verified Allergy, Mild, itchy, 12/27/19) oxycodone (Verified Allergy, Mild, itchy, 12/27/19) hydrocodone (Verified Adverse Reaction, Intermediate, chest pain, 12/27/19) Veronica Lee MD Feb 07, 2021 13:05
[2021-02-07 13:43] LABS: CALCIUM LEVEL 8.7 MG/DL (8.5-10.1); CREATININE FOR GFR 1.41 MG/DL (0.55-1.30); GLOMERULAR FILTRATION RATE 41.5 (>51); POTASSIUM SERUM 2.8 MEQ/L (3.5-5.1)
[2021-02-07] MEDS: PHENYTOIN ER 100 MG CAP PO SCH ×2 (13:50→21:57)
[2021-02-07 13:54] LABS: OSMOLALITY URINE 508 MOSM/KG (50-1400)
[2021-02-07] MEDS ORDERED: KCL 40MEQ IN D5/NS 1000ML 1,000 ML IV SCH (14:00)
[2021-02-07 14:10] LABS: SODIUM,RANDOM URINE 46 MEQ/L
--- NOTE | 2021-02-07 14:35 | IPNPDOC ---
Text Note Date of Service The patient was seen on 02/07/21. NOTE SUBJECTIVE: Elise was seen at bedside today. She is feeling much better and has been able to move from the bed to the chair with PTOT assistance. She is speaking well and clearly. Overnight she passed two bowel movements, which has relieved her constipation. She had a single episode of nausea over night, treated with Zofran. She expresses that while she feels more alert and mobile, she is still very tired. She also states that while she is tolerating a solid food diet, she has no appetite and has to force herself to eat. Her legs are in pain to the touch, and her back aches where the nephrostomy tubes are placed. She denies fever, chills, chest pain, shortness of breath, cough or abdominal pain. OBJECTIVE: PHYSICAL EXAM VITALS: See below GENERAL: Patient is a pleasant woman, obese, AOx3, who is readily responding to questions. HEENT: She has a few healed scars on her forehead. NC/AT. Mucus membranes are moist. HEART: Borderline tachycardic, with a regular rhythm. S1 and S2 are normal, with no murmurs, gallops or rubs noted on auscultation. LUNGS: Lungs are clear to auscultation bilaterally, with no wheezing, rales or rhonchi noted. Patient is breathing room air. ABDOMEN: Bowel sounds are heard in all four quadrants. The abdomen is obese, but otherwise non distended. Abdomen is tender to light palpation in the lower right quadrant, and tender to deep palpation in all four quadrants. There is a ileal conduit with an internal Orellana catheter tube in the Right Upper Quadrant that drains into a bag. The tissue surrounding the incision is normally colored and not inflamed. She has two nephrostomy tubes on each side of her back that are draining into bags at the bedside. All three bags were recently replaced at time of examination. EXTREMITIES: Trace pitting edema of the right lower extremity and nonpitting edema of the left lower extremitiy. She has extreme tenderness to touch of both lower extremities. Capillary refill <2 seconds in all four limbs. There is a tattoo on the dorsum of the R foot. NEURO/PSYCH: Patient is AOx3, with improved fluidity of speech. She moves all four extremities on command. She can move her right arm with ease, and struggles with her left arm and lower extremities. 5/5 strength in the right arm, 4/5 strength in left arm and bilateral lower extremities. LABORATORY: WBC: 11.8, decreased from yesterday, Hb.4, decreased from yesterday, Hct: 27.5, Platelets: 266 Na: 146, K: 2.8, decreased from yesterday and being managed by Dr. Lee, Cl: 114 BUN: 22, Cr: 1.41, Ca: 8.7, Bicarb: 26, Glu: 90 ALT: 14, AST: 14 Last urine culture from her Orellana catheter on 02/02/2021 showed growth of pseudomonas aeruginosa. Blood cultures from 02/02/21 and 02/03/21 show no growth. IMPRESSION/PLAN: 1. Sepsis, secondary to pseudomonas auruginosa UTI. Patient has had recurrent UTIs with ileal conduit. She is currently on day 5 of IV meropenem antimicrobial administration. She was recently admitted two weeks ago with P. aeruginosa UTI, and was treated with 10 days of iv Meropenem at that time. Given this short time period between admissions with meropenem treatment, we recommend a total of 14 days of IV meropenem on this admission. End date of treatment is on February 16. 2. Bilateral hydroureteronephrosis secondary to bilateral ovarian cysts, status post bilateral nephrostomy tube placement on 02/03/2021. Patient has an appointment with a urologist in [place] on 02/13, and an appointment with Gynecology on March 04 for outpatient treatment of ovarian cysts. Urology here at [facility] recommends she keep the nephrostomy tubes until outpatient management of the cysts and their obstruction of the ureters can be addressed. 3. Witnessed seizure at home. Patient has a longstanding seizure disorder. She will continue taking 500mg Keppra daily as well as Phenytoin 200mg q8 hr. VS,Fishbone, I+O VS, Fishbone, I+O Laboratory Tests 02/07/21 04:46 02/07/21 08:03 02/07/21 12:55 Vital Signs Date Time Temp Pulse Resp B/P (MAP) Pulse Ox O2 Delivery O2 Flow Rate FiO2 02/07/21 11:53 97.1 100 18 109/63 (78) 92 Room Air 02/03/21 11:25 2 I&O- Last 24 Hours up to 6 AM 02/07/21 05:59 Intake Total 1320 ml Output Total 1050 ml Balance 270 ml GME ATTESTATION GME ATTESTATION My faculty preceptor for this patient encounter was physically present during the encounter and was fully available. All aspects of the patient interview, examination, medical decision making process, and medical care plan development were reviewed and approved by the faculty preceptor. The faculty preceptor is aware and concurs with the plan as stated in the body of this note and will attest to such by his/her cosignature. LIVIER MCCLENDON Feb 07, 2021 14:35 Salvatore Lobato MD Feb 10, 2021 08:08
[2021-02-07 16:00] VITALS: BP 116/71
[2021-02-07] MEDS: KCL 20MEQ IN D5W 1000ML 1,000 ML IV SCH (16:19)
[2021-02-07 20:00] VITALS: BP 155/82
[2021-02-07 21:43] LABS: CALCIUM LEVEL 8.8 MG/DL (8.5-10.1); CREATININE FOR GFR 1.43 MG/DL (0.55-1.30); GLOMERULAR FILTRATION RATE 40.9 (>51); POTASSIUM SERUM 3.3 MEQ/L (3.5-5.1)
[2021-02-07] MEDS: DOCUSATE SODIUM 100MG CAPSULE PO SCH (21:55)
[2021-02-07] MEDS: ARIPiprazole 2 MG TAB PO SCH (21:56)
[2021-02-07] MEDS: SENNA 8.6 MG TAB (SENOKOT) PO SCH (21:56)
[2021-02-07] MEDS: ASPIRIN 81 MG CHEW TABLET PO SCH (21:56)
[2021-02-07] MEDS: clonazePAM 1 MG TAB PO SCH (21:57)
[2021-02-08] VITALS (7 sets, daily range): BP systolic 108–129; BP diastolic 63–78
[2021-02-08] MEDS: MEROPENEM INJ 1 GM in IV 1 EA IV SCH ×2 (00:12→11:54)
[2021-02-08] MEDS: hydrALAZINE 20MG/ML 1ML VIAL (J0360 PER 20MG) IV SCH ×2 (03:31→11:53)
[2021-02-08] MEDS: KCL 20MEQ IN D5W 1000ML 1,000 ML IV SCH ×2 (03:31→16:20)
[2021-02-08 05:17] LABS: HEMOGLOBIN 7.7 g/dl (12.0-15.5); MEAN CORPUSCULAR HEMOGLOBIN 26.1 pg (27.0-33.0); MEAN CORPUSCULAR HGB CONC 30.8 g/dl (32.0-36.5); MEAN CORPUSCULAR VOLUME 84.7 fl (80.0-96.0); PLATELET COUNT, AUTOMATED 261 10^3/uL (150-450); RED BLOOD COUNT 2.95 10^6/uL (4.00-5.40); WHITE BLOOD COUNT 10.7 10^3/uL (4.0-10.0)
[2021-02-08 05:56] LABS: ALBUMIN 2.2 GM/DL (3.2-5.2); BILIRUBIN,TOTAL 0.2 MG/DL (0.2-1.0); CALCIUM LEVEL 8.6 MG/DL (8.5-10.1); CREATININE FOR GFR 1.36 MG/DL (0.55-1.30); GLOMERULAR FILTRATION RATE 43.3 (>51); MAGNESIUM LEVEL 1.6 MG/DL (1.8-2.4); TOTAL PROTEIN 6.1 GM/DL (6.4-8.2)
[2021-02-08] MEDS: LEVOTHYROXINE 50MCG TABLET (0.05MG) PO SCH (06:17)
[2021-02-08] MEDS: HEPARIN SOD (PORCINE) 5000UNITS/ML 1ML VIAL/SYRINGE SC SCH ×2 (06:17→13:25)
[2021-02-08] MEDS: PHENYTOIN ER 100 MG CAP PO SCH ×3 (06:17→21:39)
[2021-02-08] MEDS: DOCUSATE SODIUM 100MG CAPSULE PO SCH ×2 (08:21→21:38)
[2021-02-08] MEDS: levETIRAcetam 250MG TABLET (KEPPRA) PO SCH ×2 (08:21→21:36)
[2021-02-08] MEDS: POTASSIUM CHLORIDE 10 MEQ SR TABLET PO SCH ×2 (08:22→21:37)
[2021-02-08] MEDS: PANTOPRAZOLE 40MG TAB (PROTONIX) PO SCH ×2 (08:22→21:38)
[2021-02-08] MEDS: BACLOFEN 10 MG TAB PO SCH ×2 (08:22→21:38)
[2021-02-08] MEDS: ATORVASTATIN 20 MG TAB PO SCH (08:22)
[2021-02-08] MEDS: DULoxetine 30 MG CAP (CYMBALTA) PO SCH ×2 (08:22→21:36)
[2021-02-08] MEDS: ACYCLOVIR 200 MG CAPSULE PO SCH ×2 (08:23→21:36)
[2021-02-08] MEDS: LACTOBACILLUS ACIDOPHILUS CAP (BACID) PO SCH ×2 (08:23→17:42)
[2021-02-08] MEDS: AMANTADINE 100MG TABLET PO SCH (08:23)
[2021-02-08] MEDS: hydrOXYzine 50 MG TAB PO SCH ×2 (08:23→21:37)
[2021-02-08] MEDS: PREGABALIN 100 MG CAP (LYRICA) PO SCH ×2 (08:23→21:36)
[2021-02-08] MEDS: LACTULOSE 20 GM/30 ML SYRUP UD PO SCH (08:24)
[2021-02-08] MEDS: MAGNESIUM OXIDE 400MG TAB (MAG-OX) PO SCH ×2 (08:25→21:39)
[2021-02-08] MEDS ORDERED: MAG SULF 1GM/100ML (MAG RUN) 1 GM in IV 1 EA IV ONE (09:00)
--- NOTE | 2021-02-08 14:00 | IPNPDOC ---
Date Seen The patient was seen on 02/08/21. Progress Note SUBJECTIVE: H/H lower today, possibly dilutional? repeat CBC at 1800 tonight, blood transfusion consent signed and in chart if Hgb still <8. Occult blood is pending to r/o bleed. Low keppra levels reported, started back on keppra 500 mg PO BID now that Cr improving. C/w IVFs. She is more awake, alert and ate her breakfast this AM. Denies chest pain, SOB, fevers, chills. OBJECTIVE: PHYSICAL EXAMINATION: VITAL SIGNS: please see below General: NAD, comfortable in bed, AAOX3 HEENT: PERRLA, EOMI, sclerae clear, NG tube in place Neck: supple, normal ROM, no JVD Respiratory: lungs CTAB, no wheeze, no rales, no crackles CVS: RRR, normal S1, S2, no murmurs BACK: bilateral nephrostomy tubes draining to bedside bag Abdo: Soft, nontender. Orellana in place in stoma draining to bag . Extremities: no edema, pulses 2+ MSK: no joint deformities, normal ROM Neuro: 3/5 strength in all extremities, reflexes in tact. No sensory or motor loss. CN 2-12 intact Psych: Mood and affect appropriate LABORATORY DATA, IMAGING STUDIES, MICROBIOLOGY: Please see below. ASSESSMENT: 55 yo F with a hx of primary progressive MS, wheelchair bound, neurogenic bladder s/p cystectomy with diverting ileal conduit, bilateral hydronephrosis 2/2 bilateral obstructing ovarian masses, recurrent UTI (most recently pseudomonas), COPD, HTN, CKD III, admitted for sepsis 2/2 UTI, as well as metabolic encephalopathy. The setting of seizure/MS as well as sepsis. PLAN: Acute on chronic CHRISTIAN possibly dilutional? -Last iron checked 12/2020 low at 7 -Started on iron BID here today, watch closely with constipation being an issue for her -Discussed with Dr. Guerra today. -Repeat CBC at 1800, if Hgb <8 will transfuse. Consent given today -Occult blood pending -Can do venofer x 3 doses if remains stable. Recurrent Pseudomonas UTI -WBC 10.7, afebrile -On meropenem (Day 6) and plan is to continue for total of 14 days -ID following Acute hypernatremia, hyperchloridemia likely 2/2 to nephrostomy tube o/p- resolved -Na wnl, chloride slightly high at 112 -U/O not increased -Discussed with nephrology (Dr. Blandon) -C/w D5W with KCl supplementation. Acute hypokalemia likely 2/2 to nephrostomy tube o/p -Today K 4.0 -On KCL supplement BID, D5W with KCL 20 mEq. -Will c/w treatment above today -If appetite remains good and hydration/intake improves, stop IVFs and will keep on supplement. -Watch daily labs. Acute hypomagnesemia -Mag 1.6 despite PO supplement -Mag run x 1 -F/u Mag in AM Acute renal failure on chronic kidney disease stage III 2/2 to obstruction from b/l hydronephrosis to ovarian mass -Post-op day 5 for b/l nephrostomy tubes being placed, good output - will likely need to be kept in until obstructions are dealt with. Can f/u with Dr. Perales Q3 months for this. -Cr more improved today with fluids above- 1.36 and near normal. -Daily labs, avoid nephrotoxic meds Constipation, chronic -BM this AM -C/w regimen currently Bilateral hydronephrosis secondary to ovarian mass, chronic -POD 5 b/l nephrostomy tube placement 02/03/21, good output - to keep as o/p -S/p cystectomy and ileal conduit (3 years ago) -Orellana catheter in stoma was replaced in clinic on 01/31/[address] Everett, and is draining urine appropriately, and conduit appears normal on CT- will need to ke ep per Dr. Saha -Per urology, further intervention to be done in [place] for stomal stenosis a nd bilateral ovarian masses causing hydronephrosis -Prior hospitalist (Dr. Tan) spoke to patient's normal urologist police officer crime prevention in office of Dr. Graves (specialist urologist at [facility] following pt) - Dr. Schaefer. Does not believe a revision is appropriate in setting of acute sepsis. Agrees with plan for bilateral nephrostomy tubes, management of sepsis. Once patient recovered, outpatient plan for revision. -Monitor daily labs -Urology discussed case with me (Dr. Saha) and agrees with above Epilepsy/tonic clonic seizure on 02/01/21 -No seizure activity seen since admission -EEG neg for seizure activity, reviewed with neurology -Low keppra level and now normal phenytoin level -Increased keppra to 500 mg BID, c/w phenytoin 200 mg TID Primary progressive multiple sclerosis, wheelchair bound, neurogenic bladder - Follows with a neurologist in [place] at [facility]. - had MRI in 01/2021 without acute changes - C/w amantadine Neurogenic bowel -Chronic COPD -Stable on RA -compensated Hx of Hypertension -Stable torticollis, pseudobulbar affect -Chronic B12 deficiency -Supplement Migraine headaches -No complaints obesity, -Complicating care anxiety, depression -Chronic Chronic insomnia -PRN MED Resolved issues: Acute metabolic encephalopathy likely multifactorial or individually due to sepsis 2/2 to recurrent pseudomonas UTI vs. possible seizure activity DISPOSITION: Currently inpatient status, c/w PT/OT. ID following. Plan is disc harge home or to rehab when medically improved. VS, I&O, 24H, Fishbone Vital Signs/I&O Vital Signs Date Time Temp Pulse Resp B/P (MAP) Pulse Ox O2 Delivery O2 Flow Rate FiO2 02/08/21 11:41 98.2 96 16 119/74 (89) 94 Room Air 02/03/21 11:25 2 I&O- Last 24 Hours up to 6 AM 02/08/21 06:00 Intake Total 2065 ml Output Total 1180 ml Balance 885 ml Laboratory Data 24H LABS Laboratory Tests 2 02/07/21 21:08: Anion Gap 7L, Glomerular Filtration Rate 40.9L, Calcium Level 8.8 02/08/21 04:55: Anion Gap 5L, Glomerular Filtration Rate 43.3L, Calcium Level 8.6, Nucleated Red Blood Cells % (auto) 0.0, Magnesium Level 1.6L, Total Bilirubin 0.2, Aspartate Amino Transf (AST/SGOT) 16, Alanine Aminotransferase (ALT/SGPT) 13, Alkaline Phosphatase 232H, Total Protein 6.1L, Albumin 2.2L, Albumin/Globulin Ratio 0.6L CBC/BMP Laboratory Tests 02/07/21 21:08 02/08/21 04:55 Microbiology Microbiology 02/02/21 Blood Culture - Final, Complete NO GROWTH AFTER 5 DAYS 02/02/21 Blood Culture - Final, Complete NO GROWTH AFTER 5 DAYS 02/02/21 Blood Culture - Final, Complete NO GROWTH AFTER 5 DAYS 02/02/21 Urine Culture - Final, Complete Pseudomonas Aeruginosa 02/02/21 Respiratory Virus Panel (PCR) (VANDANA) - Final, Complete Current Medications Current Medications Medications (Trade) Dose Ordered Sig/Felix Route PRN Reason Start Time Stop Time Status Last Admin Dose Admin Acetaminophen (Tylenol Tab) 650 mg Q4H PRN NG PAIN OR FEVER 02/02/21 21:35 02/06/21 14:57 DC 02/03/21 21:26 Acetaminophen (Tylenol Tab) 650 mg Q4H PRN PO PAIN OR FEVER 02/06/21 17:35 Acetaminophen (Tylenol Tab) 650 mg Q4H PRN PO PAIN OR FEVER 02/02/21 17:35 02/02/21 20:09 DC Acyclovir (Zovirax) 400 mg BID PO 02/06/21 21:00 02/08/21 08:23 Al Hydrox/Mg Hydrox/Simethicone (Mylanta) 30 ml DAILY PRN PO DYSPEPSIA 02/02/21 17:35 Albuterol Sulfate (Proventil, Ventolin Hfa) 2 puff Q4H PRN INH SHORTNESS OF BREATH 02/02/21 19:55 Amantadine HCl (Symmetrel) 100 mg DAILY PO 02/07/21 09:00 02/08/21 08:23 Aripiprazole (AbiLIFY) 2 mg QHS PO 02/06/21 21:00 02/07/21 21:56 Aspirin (Aspirin Chewable) 81 mg QHS NG 02/02/21 21:00 02/06/21 14:57 DC 02/05/21 19:49 Aspirin (Aspirin Chewable) 81 mg QHS PO 02/06/21 21:00 02/07/21 21:56 Atorvastatin Calcium (Lipitor) 40 mg DAILY NG 02/03/21 09:00 02/06/21 14:57 DC 02/06/21 08:47 Atorvastatin Calcium (Lipitor) 40 mg DAILY PO 02/07/21 09:00 02/08/21 08:22 Baclofen (Lioresal) 40 mg BID PO 02/06/21 21:00 02/08/21 08:22 Clonazepam (KlonoPIN) 1 mg QHS PO 02/06/21 21:00 02/07/21 21:57 Dextrose (Dextrose 50%) 50 ml STAT STAT IV 02/02/21 15:24 02/02/21 15:25 DC 02/02/21 15:32 Dextrose/Sodium Chloride 1,000 ml @ 100 mls/hr Q10H IV 02/02/21 20:15 02/07/21 14:05 DC 02/07/21 10:05 Docusate Sodium (Colace Liquid) 100 mg BID GT 02/05/21 09:00 02/06/21 14:57 DC 02/05/21 19:48 Docusate Sodium (Colace Liquid) 100 mg BID NG 02/02/21 21:00 02/05/21 08:09 DC 02/05/21 08:05 Docusate Sodium (Colace Liquid) 100 mg BID PO 02/06/21 21:00 02/07/21 09:48 DC 02/07/21 08:49 Docusate Sodium (Colace) 100 mg BID PO 02/07/21 21:00 02/08/21 08:21 Docusate Sodium (Colace) 100 mg BID PO 02/02/21 21:00 02/02/21 21:10 DC Duloxetine HCl (Cymbalta) 60 mg BID PO 02/06/21 21:00 02/08/21 08:22 Heparin Sodium (Porcine) (Heparin) 5,000 units Q8H SC 02/02/21 22:00 02/08/21 13:25 Home Med (Med Rec Complete!) ASDIRECTED XX 02/02/21 15:50 02/02/21 15:54 DC Hydralazine HCl (Apresoline) 5 mg Q8H IV 02/06/21 20:00 02/08/21 12:03 DC 02/06/21 20:30 Hydroxyzine HCl (Atarax) 50 mg BID PO 02/06/21 21:00 02/08/21 08:23 Insulin Human Regular (HumuLIN R INSULIN) 5 units STAT STAT IV 02/02/21 20:42 02/02/21 20:45 DC 02/02/21 21:43 Lactobacillus Acidophilus (Bacid) 1 ea BIDWM PO 02/06/21 18:00 02/08/21 08:23 Lactulose (Cephulac) 30 ml DAILY PO 02/06/21 09:00 02/08/21 08:24 Levetiracetam (Keppra) 500 mg DAILY NG 02/03/21 09:00 02/06/21 14:57 DC 02/06/21 08:48 Levetiracetam (Keppra) 500 mg DAILY PO 02/07/21 09:00 02/08/21 08:21 Levothyroxine Sodium (Synthroid) 50 mcg DAILY@0600 NG 02/03/21 06:00 02/06/21 14:57 DC 02/06/21 05:00 Levothyroxine Sodium (Synthroid) 50 mcg DAILY@0600 PO 02/07/21 06:00 02/08/21 06:17 Magnesium Hydroxide (Milk Of Magnesia) 30 ml DAILY PRN PO CONSTIPATION 02/02/21 17:35 Magnesium Oxide (Mag-Ox) 400 mg BID GT 02/05/21 09:00 02/06/21 14:57 DC 02/06/21 08:48 Magnesium Oxide (Mag-Ox) 400 mg BID PO 02/06/21 21:00 02/08/21 08:25 Meropenem 1 gm/IV Miscellaneous Supplies 50 ml @ 100 mls/hr Q12H IV 02/03/21 00:00 02/08/21 11:54 Ondansetron HCl (ZOFRAN INJection) 4 mg Q4HP PRN IV NAUSEA OR VOMITING 02/05/21 13:30 02/07/21 12:10 Ondansetron HCl (ZOFRAN INJection) 4 mg Q6HP PRN IV NAUSEA OR VOMITING 02/05/21 04:15 02/05/21 13:29 DC 02/05/21 04:38 Pantoprazole Sodium (Protonix) 40 mg BID PO 02/06/21 21:00 02/08/21 08:22 Pantoprazole Sodium (Protonix) 40 mg DAILY IV 02/03/21 09:00 02/06/21 18:15 DC 02/06/21 08:47 Phenytoin (DILANTIN INJection) 200 mg Q8H IV 02/03/21 06:00 02/07/21 13:02 DC 02/07/21 05:56 Phenytoin (Dilantin) 200 mg Q8H PO 02/07/21 14:00 02/08/21 13:25 Polyethylene Glycol (Miralax) 1 pkt DAILYPRN PRN GT CONSTIPATION 02/05/21 08:05 02/06/21 14:57 DC Polyethylene Glycol (Miralax) 1 pkt DAILYPRN PRN PO CONSTIPATION 02/06/21 14:55 Potassium Chloride/Dextrose 1,000 ml @ 75 mls/hr [id number] IV 02/07/21 17:00 02/08/21 03:31 Potassium Chloride 1,000 ml @ 100 mls/hr Q10H IV 02/07/21 14:00 02/07/21 15:02 DC Potassium Chloride (Micro-K Extencaps) 30 meq Q2H PO 02/07/21 10:00 02/07/21 12:01 DC 02/07/21 12:01 Potassium Chloride (Micro-K Extencaps) 40 meq BID PO 02/07/21 21:00 02/08/21 08:22 Pregabalin (Lyrica) 300 mg BID PO 02/06/21 21:00 02/08/21 08:23 Promethazine HCl (Phenergan) 25 mg Q4HP PRN PO NAUSEA OR VOMITING 02/05/21 13:30 02/05/21 13:48 Senna (Senokot) 2 tab QHS GT 02/05/21 21:00 02/06/21 14:57 DC Senna (Senokot) 2 tab QHS PO 02/06/21 21:00 02/07/21 21:56 Sodium Bicarbonate (Sodium Bicarbonate) 50 meq STAT STAT IV 02/02/21 15:07 02/02/21 15:10 DC 02/02/21 15:31 Sodium Chloride 1,000 ml @ 150 mls/hr Q6H40M IV 02/02/21 20:10 02/02/21 20:14 DC Allergies Coded Allergies: Cephalosporins (Verified Allergy, Intermediate, rash, 12/27/19) Sulfa (Sulfonamide Antibiotics) (Verified Allergy, Mild, itchy, 12/27/19) oxycodone (Verified Allergy, Mild, itchy, 12/27/19) hydrocodone (Verified Adverse Reaction, Intermediate, chest pain, 12/27/19) Veronica Lee MD Feb 08, 2021 14:00
[2021-02-08 18:42] LABS: HEMATOCRIT 25.9 % (36.0-47.0); HEMOGLOBIN 7.9 g/dl (12.0-15.5); MEAN CORPUSCULAR HGB CONC 30.5 g/dl (32.0-36.5); MEAN CORPUSCULAR VOLUME 85.2 fl (80.0-96.0); PLATELET COUNT, AUTOMATED 254 10^3/uL (150-450); RED BLOOD COUNT 3.04 10^6/uL (4.00-5.40); WHITE BLOOD COUNT 10.4 10^3/uL (4.0-10.0)
[2021-02-08 19:13] LABS: CALCIUM LEVEL 8.5 MG/DL (8.5-10.1); CREATININE FOR GFR 1.32 MG/DL (0.55-1.30); GLOMERULAR FILTRATION RATE 44.8 (>51); POTASSIUM SERUM 3.9 MEQ/L (3.5-5.1)
[2021-02-08] MEDS: SENNA 8.6 MG TAB (SENOKOT) PO SCH (21:37)
[2021-02-08] MEDS: FERROUS SULFATE 325MG TAB PO SCH (21:38)
[2021-02-08] MEDS: ARIPiprazole 2 MG TAB PO SCH (21:38)
[2021-02-08] MEDS: clonazePAM 1 MG TAB PO SCH (21:39)
[2021-02-09] VITALS (7 sets, daily range): BP systolic 109–120; BP diastolic 67–72
[2021-02-09] MEDS: MEROPENEM INJ 1 GM in IV 1 EA IV SCH ×2 (00:16→12:28)
[2021-02-09] MEDS: KCL 20MEQ IN D5W 1000ML 1,000 ML IV SCH (04:15)
[2021-02-09] MEDS: LEVOTHYROXINE 50MCG TABLET (0.05MG) PO SCH (05:34)
[2021-02-09] MEDS: PHENYTOIN ER 100 MG CAP PO SCH ×3 (05:35→21:17)
[2021-02-09 06:45] LABS: HEMATOCRIT 23.4 % (36.0-47.0); HEMOGLOBIN 7.2 g/dl (12.0-15.5); MEAN CORPUSCULAR HGB CONC 30.8 g/dl (32.0-36.5); MEAN CORPUSCULAR VOLUME 84.5 fl (80.0-96.0); PLATELET COUNT, AUTOMATED 265 10^3/uL (150-450); RED BLOOD COUNT 2.77 10^6/uL (4.00-5.40); WHITE BLOOD COUNT 8.7 10^3/uL (4.0-10.0)
[2021-02-09 07:21] LABS: ALBUMIN 2.3 GM/DL (3.2-5.2); BILIRUBIN,TOTAL 0.2 MG/DL (0.2-1.0); CALCIUM LEVEL 8.3 MG/DL (8.5-10.1); CREATININE FOR GFR 1.2 MG/DL (0.55-1.30); MAGNESIUM LEVEL 2.1 MG/DL (1.8-2.4); POTASSIUM SERUM 4.7 MEQ/L (3.5-5.1); TOTAL PROTEIN 5.4 GM/DL (6.4-8.2)
[2021-02-09] MEDS: LACTOBACILLUS ACIDOPHILUS CAP (BACID) PO SCH ×2 (08:00→19:49)
[2021-02-09] MEDS: BACLOFEN 10 MG TAB PO SCH ×2 (10:10→21:17)
[2021-02-09] MEDS: POTASSIUM CHLORIDE 10 MEQ SR TABLET PO SCH ×2 (10:10→21:17)
[2021-02-09] MEDS: LACTULOSE 20 GM/30 ML SYRUP UD PO SCH (10:10)
[2021-02-09] MEDS: AMANTADINE 100MG TABLET PO SCH (10:10)
[2021-02-09] MEDS: PANTOPRAZOLE 40MG TAB (PROTONIX) PO SCH ×2 (10:10→21:16)
[2021-02-09] MEDS: DOCUSATE SODIUM 100MG CAPSULE PO SCH ×2 (10:11→21:16)
[2021-02-09] MEDS: ACYCLOVIR 200 MG CAPSULE PO SCH ×2 (10:11→21:18)
[2021-02-09] MEDS: ATORVASTATIN 20 MG TAB PO SCH (10:11)
[2021-02-09] MEDS: MAGNESIUM OXIDE 400MG TAB (MAG-OX) PO SCH ×2 (10:11→21:17)
[2021-02-09] MEDS: hydrOXYzine 50 MG TAB PO SCH ×2 (10:11→21:19)
[2021-02-09] MEDS: levETIRAcetam 250MG TABLET (KEPPRA) PO SCH ×2 (10:12→21:19)
[2021-02-09] MEDS: DULoxetine 30 MG CAP (CYMBALTA) PO SCH ×2 (10:12→21:19)
[2021-02-09] MEDS: PREGABALIN 100 MG CAP (LYRICA) PO SCH ×2 (10:12→21:16)
[2021-02-09] MEDS: FERROUS SULFATE 325MG TAB PO SCH ×2 (10:12→21:16)
--- NOTE | 2021-02-09 15:15 | IPNPDOC ---
Date Seen The patient was seen on 02/09/21. Progress Note SUBJECTIVE: H/H lower at 7.01/21, transfusing 2 U PRBC today. F/u post-tranfusion H/H. Occult blood +, discussed with surgery- had recent enemas (? trauma), fluids which could explain this. No neelima bleeding, HD stable. Monitoring closely. Stopped IVFs today due to Cr wnl and patient eating better. AAOx3, denies chest pain, SOB, fevers, chills. OBJECTIVE: PHYSICAL EXAMINATION: VITAL SIGNS: please see below General: NAD, comfortable in bed, AAOX3 HEENT: PERRLA, EOMI, sclerae clear Neck: supple, normal ROM, no JVD Respiratory: lungs CTAB, no wheeze, no rales, no crackles CVS: RRR, normal S1, S2, no murmurs BACK: bilateral nephrostomy tubes draining to bedside bag Abdo: Soft, nontender. Orellana in place in stoma draining to bag Extremities: no edema, pulses 2+ MSK: no joint deformities, normal ROM Neuro: 4/5 strength in all extremities, reflexes in tact. No sensory or motor loss. CN 2-12 intact Psych: Mood and affect appropriate LABORATORY DATA, IMAGING STUDIES, MICROBIOLOGY: Please see below. ASSESSMENT: 55 yo F with a hx of primary progressive MS, wheelchair bound, neurogenic bladder s/p cystectomy with diverting ileal conduit, bilateral hydronephrosis 2/2 bilateral obstructing ovarian masses, recurrent UTI (most recently pseudomonas), COPD, HTN, CKD III, admitted for sepsis 2/2 UTI, as well as metabolic encephalopathy. The setting of seizure/MS as well as sepsis. PLAN: Acute on chronic CHRISTIAN possibly dilutional? vs. bleeding with enema (no neelima blood) -Occult blood +. Transfusing 2 U PRBC today, f/u post-transfusion H/H -Discussed with Dr. Turpin , general surgery about occult blood +. At this time will agree to watch, not repeating CT scan. Low H/H could be 2/2 to bleed but also could be from worsening CHRISTIAN, dilution from fluids, recent enemas. -Last iron checked 12/2020 low at 7 -Started on iron BID here today, watch closely with constipation being an issue for her -Discussed with Dr. Guerra as well. When blood is done and if all remains stable, improving can start venofer x 3 doses. Recurrent Pseudomonas UTI -WBC 8.7, afebrile -On meropenem (Day 7) and plan is to continue for total of 14 days -ID following Acute renal failure on chronic kidney disease stage III 2/2 to obstruction from b/l hydronephrosis to ovarian mass -Post-op day 6 for b/l nephrostomy tubes being placed, good output - will likely need to be kept in until obstructions are dealt with. Can f/u with Dr. Perales Q3 months for this. -Cr wnl today, stopped IVFs -Encouraging fluids Q2H while awake -Daily labs, avoid nephrotoxic meds Acute hypokalemia likely 2/2 to nephrostomy tube o/p- resolved -Today K 4.7 -Stopped IVFs with potassium supplement -C/w BID KCl which watching off IVFs -Improving appetite -Watch daily labs. Acute hypomagnesemia- resolved -Mag 2.1, s/p mag run in addition to supplement on 02/08/21 -F/u Mag in AM Poor PO intake likely 2/2 to acute illnesses above-improving slowly -BS 90's, stopped IVFs with D5W today -Watch with BID FS closely -If BS drops, will start D5W fluids again -Optimize nutritionally Constipation, chronic -C/w regimen currently Bilateral hydronephrosis secondary to ovarian mass, chronic -POD 6 b/l nephrostomy tube placement 02/03/21, good output - to keep as o/p -S/p cystectomy and ileal conduit (3 years ago) -Orellana catheter in stoma was replaced in clinic on 01/31/[address] Everett, and is draining urine appropriately, and conduit appears normal on CT- will need to keep per Dr. Saha -Per urology, further intervention to be done in [place] for stomal stenosis and bilateral ovarian masses causing hydronephrosis -Prior hospitalist (Dr. Tan) spoke to patient's normal urologist manager online in office of Dr. Graves (specialist urologist at [facility] following pt) - Dr. Schaefer. Does not believe a revision is appropriate in setting of acute sepsis. Agrees with plan for bilateral nephrostomy tubes, management of sepsis. Once patient recovered, outpatient plan for revision. -Monitor daily labs -Urology discussed case with me (Dr. Saha) and agrees with above Epilepsy/tonic clonic seizure on 02/01/21 -No seizure activity seen since admission -EEG neg for seizure activity, reviewed with neurology -Low keppra level and now normal phenytoin level -Increased keppra to 500 mg BID, c/w phenytoin 200 mg TID Primary progressive multiple sclerosis, wheelchair bound, neurogenic bladder - Follows with a neurologist in [place] at [facility]. - had MRI in 01/2021 without acute changes - C/w amantadine Neurogenic bowel -Chronic COPD -Stable on RA -compensated Hx of Hypertension -Stable torticollis, pseudobulbar affect -Chronic B12 deficiency -Supplement Migraine headaches -No complaints obesity, -Complicating care anxiety, depression -Chronic Chronic insomnia -PRN MED Resolved issues: Acute metabolic encephalopathy likely multifactorial or individually due to sepsis 2/2 to recurrent pseudomonas UTI vs. possible seizure activity Acute hypernatremia, hyperchloridemia likely 2/2 to nephrostomy tube o/p DISPOSITION: Currently inpatient status, c/w PT/OT. ID following. Plan is discharge home or to rehab when medically improved. VS, I&O, 24H, Fishbone Vital Signs/I&O Vital Signs Date Time Temp Pulse Resp B/P (MAP) Pulse Ox O2 Delivery O2 Flow Rate FiO2 02/09/21 06:00 97.3 100 18 115/69 (84) 93 Room Air 02/03/21 11:25 2 I&O- Last 24 Hours up to 6 AM 02/09/21 06:00 Intake Total 3490 ml Output Total 2575 ml Balance 915 ml Laboratory Data 24H LABS Laboratory Tests 2 02/08/21 18:08: Nucleated Red Blood Cells % (auto) 0.0, Anion Gap 5L, Glomerular Filtration Rate 44.8L, Calcium Level 8.5 02/09/21 06:13: Nucleated Red Blood Cells % (auto) 0.0, Anion Gap 6L, Glomerular Filtration Rate 50.0L, Calcium Level 8.3L, Magnesium Level 2.1, Total Bilirubin 0.2, Aspartate Amino Transf (AST/SGOT) 20, Alanine Aminotransferase (ALT/SGPT) 17, Alkaline Phosphatase 262H, Total Protein 5.4L, Albumin 2.3L, Albumin/Globulin Ratio 0.7L CBC/BMP Laboratory Tests 02/08/21 18:08 02/09/21 06:13 Microbiology Microbiology 02/08/21 Stool Occult Blood (VANDANA) - Final, Complete 02/02/21 Blood Culture - Final, Complete NO GROWTH AFTER 5 DAYS 02/02/21 Blood Culture - Final, Complete NO GROWTH AFTER 5 DAYS 02/02/21 Blood Culture - Final, Complete NO GROWTH AFTER 5 DAYS 02/02/21 Urine Culture - Final, Complete Pseudomonas Aeruginosa 02/02/21 Respiratory Virus Panel (PCR) (VANDANA) - Final, Complete Current Medications Current Medications Medications (Trade) Dose Ordered Sig/Felix Route PRN Reason Start Time Stop Time Status Last Admin Dose Admin Acetaminophen (Tylenol Tab) 650 mg Q4H PRN NG PAIN OR FEVER 02/02/21 21:35 02/06/21 14:57 DC 02/03/21 21:26 Acetaminophen (Tylenol Tab) 650 mg Q4H PRN PO PAIN OR FEVER 02/06/21 17:35 Acetaminophen (Tylenol Tab) 650 mg Q4H PRN PO PAIN OR FEVER 02/02/21 17:35 02/02/21 20:09 DC Acyclovir (Zovirax) 400 mg BID PO 02/06/21 21:00 02/09/21 10:11 Al Hydrox/Mg Hydrox/Simethicone (Mylanta) 30 ml DAILY PRN PO DYSPEPSIA 02/02/21 17:35 Albuterol Sulfate (Proventil, Ventolin Hfa) 2 puff Q4H PRN INH SHORTNESS OF BREATH 02/02/21 19:55 Amantadine HCl (Symmetrel) 100 mg DAILY PO 02/07/21 09:00 02/09/21 10:10 Aripiprazole (AbiLIFY) 2 mg QHS PO 02/06/21 21:00 02/08/21 21:38 Aspirin (Aspirin Chewable) 81 mg QHS NG 02/02/21 21:00 02/06/21 14:57 DC 02/05/21 19:49 Aspirin (Aspirin Chewable) 81 mg QHS PO 02/06/21 21:00 02/08/21 18:14 DC 02/07/21 21:56 Atorvastatin Calcium (Lipitor) 40 mg DAILY NG 02/03/21 09:00 02/06/21 14:57 DC 02/06/21 08:47 Atorvastatin Calcium (Lipitor) 40 mg DAILY PO 02/07/21 09:00 02/09/21 10:11 Baclofen (Lioresal) 40 mg BID PO 02/06/21 21:00 02/09/21 10:10 Clonazepam (KlonoPIN) 1 mg QHS PO 02/06/21 21:00 02/08/21 21:39 Dextrose (Dextrose 50%) 50 ml STAT STAT IV 02/02/21 15:24 02/02/21 15:25 DC 02/02/21 15:32 Dextrose/Sodium Chloride 1,000 ml @ 100 mls/hr Q10H IV 02/02/21 20:15 02/07/21 14:05 DC 02/07/21 10:05 Docusate Sodium (Colace Liquid) 100 mg BID GT 02/05/21 09:00 02/06/21 14:57 DC 02/05/21 19:48 Docusate Sodium (Colace Liquid) 100 mg BID NG 02/02/21 21:00 02/05/21 08:09 DC 02/05/21 08:05 Docusate Sodium (Colace Liquid) 100 mg BID PO 02/06/21 21:00 02/07/21 09:48 DC 02/07/21 08:49 Docusate Sodium (Colace) 100 mg BID PO 02/07/21 21:00 02/09/21 10:11 Docusate Sodium (Colace) 100 mg BID PO 02/02/21 21:00 02/02/21 21:10 DC Duloxetine HCl (Cymbalta) 60 mg BID PO 02/06/21 21:00 02/09/21 10:12 Ferrous Sulfate (Ferrous Sulfate) 325 mg BID PO 02/08/21 21:00 02/09/21 10:12 Heparin Sodium (Porcine) (Heparin) 5,000 units Q8H SC 02/02/21 22:00 02/08/21 18:14 DC 02/08/21 13:25 Home Med (Med Rec Complete!) ASDIRECTED XX 02/02/21 15:50 02/02/21 15:54 DC Hydralazine HCl (Apresoline) 5 mg Q8H IV 02/06/21 20:00 02/08/21 12:03 DC 02/06/21 20:30 Hydroxyzine HCl (Atarax) 50 mg BID PO 02/06/21 21:00 02/09/21 10:11 Insulin Human Regular (HumuLIN R INSULIN) 5 units STAT STAT IV 02/02/21 20:42 02/02/21 20:45 DC 02/02/21 21:43 Lactobacillus Acidophilus (Bacid) 1 ea BIDWM PO 02/06/21 18:00 02/09/21 08:00 Lactulose (Cephulac) 30 ml DAILY PO 02/06/21 09:00 02/09/21 10:10 Levetiracetam (Keppra) 500 mg BID PO 02/08/21 21:00 02/09/21 10:12 Levetiracetam (Keppra) 500 mg DAILY NG 02/03/21 09:00 02/06/21 14:57 DC 02/06/21 08:48 Levetiracetam (Keppra) 500 mg DAILY PO 02/07/21 09:00 02/08/21 14:25 DC 02/08/21 08:21 Levothyroxine Sodium (Synthroid) 50 mcg DAILY@0600 NG 02/03/21 06:00 02/06/21 14:57 DC 02/06/21 05:00 Levothyroxine Sodium (Synthroid) 50 mcg DAILY@0600 PO 02/07/21 06:00 02/09/21 05:34 Magnesium Hydroxide (Milk Of Magnesia) 30 ml DAILY PRN PO CONSTIPATION 02/02/21 17:35 Magnesium Oxide (Mag-Ox) 400 mg BID GT 02/05/21 09:00 02/06/21 14:57 DC 02/06/21 08:48 Magnesium Oxide (Mag-Ox) 400 mg BID PO 02/06/21 21:00 02/09/21 10:11 Meropenem 1 gm/IV Miscellaneous Supplies 50 ml @ 100 mls/hr Q12H IV 02/03/21 00:00 02/09/21 12:28 Ondansetron HCl (ZOFRAN INJection) 4 mg Q4HP PRN IV NAUSEA OR VOMITING 02/05/21 13:30 02/07/21 12:10 Ondansetron HCl (ZOFRAN INJection) 4 mg Q6HP PRN IV NAUSEA OR VOMITING 02/05/21 04:15 02/05/21 13:29 DC 02/05/21 04:38 Pantoprazole Sodium (Protonix) 40 mg BID PO 02/06/21 21:00 02/09/21 10:10 Pantoprazole Sodium (Protonix) 40 mg DAILY IV 02/03/21 09:00 02/06/21 18:15 DC 02/06/21 08:47 Phenytoin (DILANTIN INJection) 200 mg Q8H IV 02/03/21 06:00 02/07/21 13:02 DC 02/07/21 05:56 Phenytoin (Dilantin) 200 mg Q8H PO 02/07/21 14:00 02/09/21 14:42 Polyethylene Glycol (Miralax) 1 pkt DAILYPRN PRN GT CONSTIPATION 02/05/21 08:05 02/06/21 14:57 DC Polyethylene Glycol (Miralax) 1 pkt DAILYPRN PRN PO CONSTIPATION 02/06/21 14:55 Potassium Chloride/Dextrose 1,000 ml @ 75 mls/hr [id number] IV 02/07/21 17:00 02/09/21 08:24 DC 02/09/21 04:15 Potassium Chloride 1,000 ml @ 100 mls/hr Q10H IV 02/07/21 14:00 02/07/21 15:02 DC Potassium Chloride (Micro-K Extencaps) 30 meq Q2H PO 02/07/21 10:00 02/07/21 12:01 DC 02/07/21 12:01 Potassium Chloride (Micro-K Extencaps) 40 meq BID PO 02/07/21 21:00 02/09/21 10:10 Pregabalin (Lyrica) 300 mg BID PO 02/06/21 21:00 02/09/21 10:12 Promethazine HCl (Phenergan) 25 mg Q4HP PRN PO NAUSEA OR VOMITING 02/05/21 13:30 02/05/21 13:48 Senna (Senokot) 2 tab QHS GT 02/05/21 21:00 02/06/21 14:57 DC Senna (Senokot) 2 tab QHS PO 02/06/21 21:00 02/08/21 21:37 Sodium Bicarbonate (Sodium Bicarbonate) 50 meq STAT STAT IV 02/02/21 15:07 02/02/21 15:10 DC 02/02/21 15:31 Sodium Chloride 1,000 ml @ 150 mls/hr Q6H40M IV 02/02/21 20:10 02/02/21 20:14 DC Allergies Coded Allergies: Cephalosporins (Verified Allergy, Intermediate, rash, 12/27/19) Sulfa (Sulfonamide Antibiotics) (Verified Allergy, Mild, itchy, 12/27/19) oxycodone (Verified Allergy, Mild, itchy, 12/27/19) hydrocodone (Verified Adverse Reaction, Intermediate, chest pain, 12/27/19) Veronica Lee MD Feb 09, 2021 15:15
[2021-02-09] MEDS: clonazePAM 1 MG TAB PO SCH (21:16)
[2021-02-09] MEDS: SENNA 8.6 MG TAB (SENOKOT) PO SCH (21:17)
[2021-02-09] MEDS: ARIPiprazole 2 MG TAB PO SCH (21:22)
[2021-02-10] VITALS (9 sets, daily range): BP systolic 93–114; BP diastolic 56–72
[2021-02-10] MEDS: PHENYTOIN ER 100 MG CAP PO SCH ×3 (05:50→21:04)
[2021-02-10] MEDS: LEVOTHYROXINE 50MCG TABLET (0.05MG) PO SCH (05:50)
[2021-02-10 07:11] LABS: HEMATOCRIT 30.7 % (36.0-47.0); MEAN CORPUSCULAR HEMOGLOBIN 27.1 pg (27.0-33.0); MEAN CORPUSCULAR HGB CONC 31.9 g/dl (32.0-36.5); MEAN CORPUSCULAR VOLUME 84.8 fl (80.0-96.0); PLATELET COUNT, AUTOMATED 327 10^3/uL (150-450); RED BLOOD COUNT 3.62 10^6/uL (4.00-5.40); WHITE BLOOD COUNT 9.8 10^3/uL (4.0-10.0)
[2021-02-10 07:12] LABS: HEMOGLOBIN 9.8 g/dl (12.0-15.5)
[2021-02-10 07:33] LABS: ALBUMIN 2.4 GM/DL (3.2-5.2); BILIRUBIN,TOTAL 0.3 MG/DL (0.2-1.0); CALCIUM LEVEL 8.8 MG/DL (8.5-10.1); CREATININE FOR GFR 1.28 MG/DL (0.55-1.30); GLOMERULAR FILTRATION RATE 46.4 (>51); POTASSIUM SERUM 5.3 MEQ/L (3.5-5.1); TOTAL PROTEIN 5.8 GM/DL (6.4-8.2)
[2021-02-10] MEDS: ATORVASTATIN 20 MG TAB PO SCH (08:48)
[2021-02-10] MEDS: hydrOXYzine 50 MG TAB PO SCH ×2 (08:48→20:34)
[2021-02-10] MEDS: MAGNESIUM OXIDE 400MG TAB (MAG-OX) PO SCH ×2 (08:48→20:31)
[2021-02-10] MEDS: DULoxetine 30 MG CAP (CYMBALTA) PO SCH ×2 (08:48→20:28)
[2021-02-10] MEDS: PREGABALIN 100 MG CAP (LYRICA) PO SCH ×2 (08:48→20:29)
[2021-02-10] MEDS: FERROUS SULFATE 325MG TAB PO SCH ×2 (08:48→20:28)
[2021-02-10] MEDS: DOCUSATE SODIUM 100MG CAPSULE PO SCH ×2 (08:48→20:28)
[2021-02-10] MEDS: PANTOPRAZOLE 40MG TAB (PROTONIX) PO SCH ×2 (08:49→20:31)
[2021-02-10] MEDS: levETIRAcetam 250MG TABLET (KEPPRA) PO SCH ×2 (08:49→20:26)
[2021-02-10] MEDS: ACYCLOVIR 200 MG CAPSULE PO SCH ×2 (08:49→20:30)
[2021-02-10] MEDS: LACTULOSE 20 GM/30 ML SYRUP UD PO SCH (08:49)
[2021-02-10] MEDS: LACTOBACILLUS ACIDOPHILUS CAP (BACID) PO SCH ×2 (08:49→19:01)
[2021-02-10] MEDS: AMANTADINE 100MG TABLET PO SCH (08:49)
[2021-02-10] MEDS: BACLOFEN 10 MG TAB PO SCH ×2 (08:49→20:27)
[2021-02-10] MEDS: MEROPENEM INJ 1 GM in IV 1 EA IV SCH ×4 (12:59→20:26)
[2021-02-10] MEDS: ACETAMINOPHEN TAB 650MG DOSE (2X325MG) PO PRN (13:59)
--- NOTE | 2021-02-10 15:15 | IPNPDOC ---
Date Seen The patient was seen on 02/10/21. Progress Note SUBJECTIVE: S/p 2 U PRBC overnight, H/H corrected appropriately. Cr remains wnl, although slightly incr. As many of her prior acute issues have improved, will start to focus more on discharge planning/rehab. AAOx3, denies chest pain, SOB, fevers, chills. OBJECTIVE: PHYSICAL EXAMINATION: VITAL SIGNS: please see below General: NAD, comfortable in bed, AAOX3 HEENT: PERRLA, EOMI, sclerae clear Neck: supple, normal ROM, no JVD Respiratory: lungs CTAB, no wheeze, no rales, no crackles CVS: RRR, normal S1, S2, no murmurs BACK: bilateral nephrostomy tubes draining to bedside bag Abdo: Soft, nontender. Orellana in place in stoma draining to bag, clear urine Extremities: no edema, pulses 2+ MSK: no joint deformities, normal ROM Neuro: 4/5 strength in all extremities, reflexes in tact. No sensory or motor loss. CN 2-12 intact Psych: Mood and affect appropriate LABORATORY DATA, IMAGING STUDIES, MICROBIOLOGY: Please see below. ASSESSMENT: 55 yo F with a hx of primary progressive MS, wheelchair bound, neurogenic bladder s/p cystectomy with diverting ileal conduit, bilateral hydronephrosis 2/2 bilateral obstructing ovarian cysts, recurrent UTI (most recently pseudomonas), COPD, HTN, CKD III, admitted for sepsis 2/2 UTI, as well as metabolic encephalopathy. The setting of seizure/MS as well as sepsis. PLAN: Acute on chronic CHRISTIAN possibly dilutional? vs. trauma from enema (no neelima blood) -Occult blood +. S/p 2 U PRBC 02/09/21 -H/H 9.8/30.7 -Discussed with Dr. Turpin, general surgery about occult blood +. At this time will agree to watch, not repeating CT scan. Low H/H could be 2/2 to bleed but also could be from worsening CHRISTIAN, dilution from fluids, recent enemas. -Last iron checked 12/2020 low at 7 -Will resume ASA, watch for change in H/H -C/w ferrous sulfate BID here today, watch closely with constipation being an issue for her -Discussed with Dr. Guerra as well. When blood is done and if all remains stable, can start venofer x 3 doses. Acute on chronic physical deconditioning -PT: would benefit from continued rehab services -Discussed with family today possibility of rehab, were not objective to it -ARU screen placed -C/w PT/OT Recurrent Pseudomonas UTI -WBC wnl, afebrile -On meropenem (Day 8) and plan is to continue for total of 14 days -ID following, f/u most recent note -Discussed with Dr. Lobato. If plan is for patient to go to rehab, can continue with IV abx through peripheral line. If patient to go home, will need mid-line with IV abx. Acute hyperkalemia likely 2/2 supplemented KCl -Today K 5.3 -Stopped KCl BID -When levels have normalized, patient is normally on 10 mEq daily at home- can likely resume this then. -Daily labs Chronic kidney disease stage III 2/2 to obstruction from b/l hydronephrosis to ovarian cysts -Post-op day 7 for b/l nephrostomy tubes being placed, good output - will need to be kept in until obstructions (removal of ovarian cysts) are dealt with per Dr. Saha. -TERRELL resolved, Cr wnl today -Encouraging fluids Q2H while awake -Daily labs, avoid nephrotoxic meds -Nephrostomy tubes placed by IR. Will need f/u with Dr. Perales Q3 months for this at discharge. Poor PO intake likely 2/2 to acute illnesses above-improving slowly -BS 80's-90's -Watch with BID FS closely- nursing has not been doing these regularly-notified current nurse of order again -If BS drops, will start D5W fluids again -Optimize nutritionally Constipation, chronic -Having daily BM currently -C/w regimen currently Bilateral hydronephrosis secondary to ovarian cysts, chronic -POD 7 b/l nephrostomy tube placement 02/03/21, good output - to keep as o/p per Dr. Saha -S/p cystectomy and ileal conduit (3 years ago) -Orellana catheter in stoma was replaced in clinic on 01/31/[address] Everett, and is draining urine appropriately, and conduit appears normal on CT -Per urology, further intervention to be done in [place] for stomal stenosis and bilateral ovarian masses causing hydronephrosis -Prior hospitalist (Dr. Tan) spoke to patient's normal urologist admissions assistant in office of Dr. Graves (specialist urologist at [facility] following pt) - Dr. Schaefer. Agrees with bilateral nephrostomy tubes. Once patient recovered, patient can f/u as o/p. -Monitor daily labs -Urology discussed case (Dr. Saha) and agrees with above Epilepsy/tonic clonic seizure on 02/01/21 -No seizure activity seen since admission -EEG neg for seizure activity, reviewed with neurology -Low keppra level and now normal phenytoin level -Increased keppra to 500 mg BID, c/w phenytoin 200 mg TID Primary progressive multiple sclerosis, wheelchair bound, neurogenic bladder - Follows with a neurologist in [place] at [facility]. - Had MRI in 01/2021 without acute changes - C/w amantadine Neurogenic bowel -Chronic COPD -Stable on RA -compensated Chronic hypomagnesemia -C/w mag ox supplement Hx of Hypertension -Stable Torticollis, pseudobulbar affect -Chronic and stable B12 deficiency -Supplement Migraine headaches -No complaints Obesity -Complicating care Anxiety, depression -Chronic Chronic insomnia -PRN MED GERD -PPI BID-home med DVT px -SCD, pedro with recent occult + stool Resolved issues: Acute metabolic encephalopathy likely multifactorial or individually due to sep sis 2/2 to recurrent pseudomonas UTI vs. possible seizure activity Acute hypernatremia, hyperchloridemia likely 2/2 to nephrostomy tube o/p DISPOSITION: Currently inpatient status. Per PT would likely benefit from continued rehab. ARU screen placed. VS, I&O, 24H, Fishbone Vital Signs/I&O Vital Signs Date Time Temp Pulse Resp B/P (MAP) Pulse Ox O2 Delivery O2 Flow Rate FiO2 02/10/21 14:00 98.2 111 18 114/71 (85) 94 Room Air I&O- Last 24 Hours up to 6 AM 02/10/21 06:00 Intake Total 5445 ml Output Total 3375 ml Balance 2070 ml Laboratory Data 24H LABS Laboratory Tests 2 02/10/21 06:10: Nucleated Red Blood Cells % (auto) 0.0, Anion Gap 5L, Glomerular Filtration Rate 46.4L, Calcium Level 8.8, Total Bilirubin 0.3, Aspartate Amino Transf (AST/SGOT) 19, Alanine Aminotransferase (ALT/SGPT) 20, Alkaline Phosphatase 283H, Total Protein 5.8L, Albumin 2.4L, Albumin/Globulin Ratio 0.7L CBC/BMP Laboratory Tests 02/10/21 06:10 Microbiology Microbiology 02/08/21 Stool Occult Blood (VANDANA) - Final, Complete 02/02/21 Blood Culture - Final, Complete NO GROWTH AFTER 5 DAYS 02/02/21 Blood Culture - Final, Complete NO GROWTH AFTER 5 DAYS 02/02/21 Blood Culture - Final, Complete NO GROWTH AFTER 5 DAYS 02/02/21 Urine Culture - Final, Complete Pseudomonas Aeruginosa 02/02/21 Respiratory Virus Panel (PCR) (VANDANA) - Final, Complete Current Medications Current Medications Medications (Trade) Dose Ordered Sig/Felix Route PRN Reason Start Time Stop Time Status Last Admin Dose Admin Acetaminophen (Tylenol Tab) 650 mg Q4H PRN NG PAIN OR FEVER 02/02/21 21:35 02/06/21 14:57 DC 02/03/21 21:26 Acetaminophen (Tylenol Tab) 650 mg Q4H PRN PO PAIN OR FEVER 02/06/21 17:35 02/10/21 13:59 Acetaminophen (Tylenol Tab) 650 mg Q4H PRN PO PAIN OR FEVER 02/02/21 17:35 02/02/21 20:09 DC Acyclovir (Zovirax) 400 mg BID PO 02/06/21 21:00 02/10/21 08:49 Al Hydrox/Mg Hydrox/Simethicone (Mylanta) 30 ml DAILY PRN PO DYSPEPSIA 02/02/21 17:35 Albuterol Sulfate (Proventil, Ventolin Hfa) 2 puff Q4H PRN INH SHORTNESS OF BREATH 02/02/21 19:55 Amantadine HCl (Symmetrel) 100 mg DAILY PO 02/07/21 09:00 02/10/21 08:49 Aripiprazole (AbiLIFY) 2 mg QHS PO 02/06/21 21:00 02/09/21 21:22 Aspirin (Aspirin Chewable) 81 mg QHS NG 02/02/21 21:00 02/06/21 14:57 DC 02/05/21 19:49 Aspirin (Aspirin Chewable) 81 mg QHS PO 02/06/21 21:00 02/08/21 18:14 DC 02/07/21 21:56 Atorvastatin Calcium (Lipitor) 40 mg DAILY NG 02/03/21 09:00 02/06/21 14:57 DC 02/06/21 08:47 Atorvastatin Calcium (Lipitor) 40 mg DAILY PO 02/07/21 09:00 02/10/21 08:48 Baclofen (Lioresal) 40 mg BID PO 02/06/21 21:00 02/10/21 08:49 Clonazepam (KlonoPIN) 1 mg QHS PO 02/06/21 21:00 02/09/21 21:16 Dextrose (Dextrose 50%) 50 ml STAT STAT IV 02/02/21 15:24 02/02/21 15:25 DC 02/02/21 15:32 Dextrose/Sodium Chloride 1,000 ml @ 100 mls/hr Q10H IV 02/02/21 20:15 02/07/21 14:05 DC 02/07/21 10:05 Docusate Sodium (Colace Liquid) 100 mg BID GT 02/05/21 09:00 02/06/21 14:57 DC 02/05/21 19:48 Docusate Sodium (Colace Liquid) 100 mg BID NG 02/02/21 21:00 02/05/21 08:09 DC 02/05/21 08:05 Docusate Sodium (Colace Liquid) 100 mg BID PO 02/06/21 21:00 02/07/21 09:48 DC 02/07/21 08:49 Docusate Sodium (Colace) 100 mg BID PO 02/07/21 21:00 02/10/21 08:48 Docusate Sodium (Colace) 100 mg BID PO 02/02/21 21:00 02/02/21 21:10 DC Duloxetine HCl (Cymbalta) 60 mg BID PO 02/06/21 21:00 02/10/21 08:48 Ferrous Sulfate (Ferrous Sulfate) 325 mg BID PO 02/08/21 21:00 02/10/21 08:48 Heparin Sodium (Porcine) (Heparin) 5,000 units Q8H SC 02/02/21 22:00 02/08/21 18:14 DC 02/08/21 13:25 Home Med (Med Rec Complete!) ASDIRECTED XX 02/02/21 15:50 02/02/21 15:54 DC Hydralazine HCl (Apresoline) 5 mg Q8H IV 02/06/21 20:00 02/08/21 12:03 DC 02/06/21 20:30 Hydroxyzine HCl (Atarax) 50 mg BID PO 02/06/21 21:00 02/10/21 08:48 Insulin Human Regular (HumuLIN R INSULIN) 5 units STAT STAT IV 02/02/21 20:42 02/02/21 20:45 DC 02/02/21 21:43 Lactobacillus Acidophilus (Bacid) 1 ea BIDWM PO 02/06/21 18:00 02/10/21 08:49 Lactulose (Cephulac) 30 ml DAILY PO 02/06/21 09:00 02/10/21 08:49 Levetiracetam (Keppra) 500 mg BID PO 02/08/21 21:00 02/10/21 08:49 Levetiracetam (Keppra) 500 mg DAILY NG 02/03/21 09:00 02/06/21 14:57 DC 02/06/21 08:48 Levetiracetam (Keppra) 500 mg DAILY PO 02/07/21 09:00 02/08/21 14:25 DC 02/08/21 08:21 Levothyroxine Sodium (Synthroid) 50 mcg DAILY@0600 NG 02/03/21 06:00 02/06/21 14:57 DC 02/06/21 05:00 Levothyroxine Sodium (Synthroid) 50 mcg DAILY@0600 PO 02/07/21 06:00 02/10/21 05:50 Magnesium Hydroxide (Milk Of Magnesia) 30 ml DAILY PRN PO CONSTIPATION 02/02/21 17:35 Magnesium Oxide (Mag-Ox) 400 mg BID GT 02/05/21 09:00 02/06/21 14:57 DC 02/06/21 08:48 Magnesium Oxide (Mag-Ox) 400 mg BID PO 02/06/21 21:00 02/10/21 08:48 Meropenem 1 gm/IV Miscellaneous Supplies 50 ml @ 100 mls/hr Q12H IV 02/03/21 00:00 02/10/21 12:59 Ondansetron HCl (ZOFRAN INJection) 4 mg Q4HP PRN IV NAUSEA OR VOMITING 02/05/21 13:30 02/07/21 12:10 Ondansetron HCl (ZOFRAN INJection) 4 mg Q6HP PRN IV NAUSEA OR VOMITING 02/05/21 04:15 02/05/21 13:29 DC 02/05/21 04:38 Pantoprazole Sodium (Protonix) 40 mg BID PO 02/06/21 21:00 02/10/21 08:49 Pantoprazole Sodium (Protonix) 40 mg DAILY IV 02/03/21 09:00 02/06/21 18:15 DC 02/06/21 08:47 Phenytoin (DILANTIN INJection) 200 mg Q8H IV 02/03/21 06:00 02/07/21 13:02 DC 02/07/21 05:56 Phenytoin (Dilantin) 200 mg Q8H PO 02/07/21 14:00 02/10/21 12:59 Polyethylene Glycol (Miralax) 1 pkt DAILYPRN PRN GT CONSTIPATION 02/05/21 08:05 02/06/21 14:57 DC Polyethylene Glycol (Miralax) 1 pkt DAILYPRN PRN PO CONSTIPATION 02/06/21 14:55 Potassium Chloride/Dextrose 1,000 ml @ 75 mls/hr [id number] IV 02/07/21 17:00 02/09/21 08:24 DC 02/09/21 04:15 Potassium Chloride 1,000 ml @ 100 mls/hr Q10H IV 02/07/21 14:00 02/07/21 15:02 DC Potassium Chloride (Micro-K Extencaps) 30 meq Q2H PO 02/07/21 10:00 02/07/21 12:01 DC 02/07/21 12:01 Potassium Chloride (Micro-K Extencaps) 40 meq BID PO 02/07/21 21:00 02/10/21 08:23 DC 02/09/21 21:17 Pregabalin (Lyrica) 300 mg BID PO 02/06/21 21:00 02/10/21 08:48 Promethazine HCl (Phenergan) 25 mg Q4HP PRN PO NAUSEA OR VOMITING 02/05/21 13:30 02/05/21 13:48 Senna (Senokot) 2 tab QHS GT 02/05/21 21:00 02/06/21 14:57 DC Senna (Senokot) 2 tab QHS PO 02/06/21 21:00 02/09/21 21:17 Sodium Bicarbonate (Sodium Bicarbonate) 50 meq STAT STAT IV 02/02/21 15:07 02/02/21 15:10 DC 02/02/21 15:31 Sodium Chloride 1,000 ml @ 150 mls/hr Q6H40M IV 02/02/21 20:10 02/02/21 20:14 DC Allergies Coded Allergies: Cephalosporins (Verified Allergy, Intermediate, rash, 12/27/19) Sulfa (Sulfonamide Antibiotics) (Verified Allergy, Mild, itchy, 12/27/19) oxycodone (Verified Allergy, Mild, itchy, 12/27/19) hydrocodone (Verified Adverse Reaction, Intermediate, chest pain, 12/27/19) Veronica Lee MD Feb 10, 2021 15:15
--- NOTE | 2021-02-10 16:54 | IPN ---
INFECTIOUS DISEASE PROGRESS NOTE DATE: 02/10/2021 SUBJECTIVE: Elise is doing very well. She is in good spirits today. She has no complaints, no fever or chills, no nausea, vomiting or diarrhea. She just complains of a mild headache. No urinary symptoms. She has bilateral nephrostomy tubes and a stent in the ostomy from the ileal conduit as well. LABORATORY STUDIES: White count is 9.8, hemoglobin 9.8, hematocrit 30.7, platelet count 327. Sodium 140, potassium 5.3, chloride 111, bicarbonate 24, BUN 14, creatinine 1.28 which is down from 4.39 on admission. AST 19, ALT 20, alkaline phosphatase 283, total protein 5.8, albumin 2.4. Stool guaiac was positive. OBJECTIVE: PHYSICAL EXAMINATION: VITAL SIGNS: Temperature is 98.2, pulse 111, respirations 18, blood pressure 114/71, O2 sat 94% on room air. HEART: Normal S1, S2, tachycardic. No murmurs. LUNGS: Clear. No rales, rhonchi or wheezes. ABDOMEN: Obese, soft, nontender. EXTREMITIES: Trace edema bilaterally. GENITOURINARY: She has bilateral nephrostomy tubes with clear urine. She has an ileal conduit with a lot of mucous in the ostomy bag and a stent draining well. IMPRESSION: 1. Pseudomonas, pyelonephritis, on IV Meropenem with improving kidney function - Her dose will be increased to one gram every 8 hours. 2. Acute kidney injury from bilateral hydronephrosis has resolved with nephrostomy tube. Doing much better. 3. Guaiac positive stools and constipation - The patient will eventually need a colonoscopy. 4. Anemia - The patient has received 2 units of packed red blood cells for hemoglobin of 7.7 and hematocrit of 25. PLAN: 1. Continue with IV Meropenem at one gram every 8 hours she is currently day number eight out of fourteen. She has very poor IV access and had multiple IV trials today and has an IV in her left upper arm. If she loses that IV, could consider using a midline for the rest of her antibiotic therapy. 2. The patient is being evaluated for acute rehab. [facility]
[2021-02-10] MEDS: ARIPiprazole 2 MG TAB PO SCH (20:27)
[2021-02-10] MEDS: SENNA 8.6 MG TAB (SENOKOT) PO SCH (20:30)
[2021-02-10] MEDS: ASPIRIN 81MG ENTERIC TABLET PO SCH (20:31)
[2021-02-10] MEDS: clonazePAM 1 MG TAB PO SCH (20:31)
[2021-02-10] MEDS: ONDANSETRON 4MG/2ML VIAL IV PRN (21:04)
[2021-02-11] MEDS: MEROPENEM INJ 1 GM in IV 1 EA IV SCH ×3 (03:21→20:18)
[2021-02-11] MEDS: PHENYTOIN ER 100 MG CAP PO SCH (05:41)
[2021-02-11] MEDS: LEVOTHYROXINE 50MCG TABLET (0.05MG) PO SCH (05:41)
[2021-02-11 06:00] VITALS: BP 112/70
[2021-02-11 06:51] LABS: HEMATOCRIT 32.7 % (36.0-47.0); HEMOGLOBIN 10.5 g/dl (12.0-15.5); MEAN CORPUSCULAR HEMOGLOBIN 27.3 pg (27.0-33.0); MEAN CORPUSCULAR HGB CONC 32.1 g/dl (32.0-36.5); MEAN CORPUSCULAR VOLUME 85.2 fl (80.0-96.0); PLATELET COUNT, AUTOMATED 347 10^3/uL (150-450); RED BLOOD COUNT 3.84 10^6/uL (4.00-5.40); WHITE BLOOD COUNT 10.9 10^3/uL (4.0-10.0)
[2021-02-11 07:17] LABS: ALBUMIN 2.7 GM/DL (3.2-5.2); BILIRUBIN,TOTAL 0.4 MG/DL (0.2-1.0); CALCIUM LEVEL 9.1 MG/DL (8.5-10.1); CREATININE FOR GFR 1.24 MG/DL (0.55-1.30); GLOMERULAR FILTRATION RATE 48.2 (>51); POTASSIUM SERUM 4.8 MEQ/L (3.5-5.1); TOTAL PROTEIN 6.3 GM/DL (6.4-8.2)
[2021-02-11] MEDS: DULoxetine 30 MG CAP (CYMBALTA) PO SCH ×2 (09:07→20:21)
[2021-02-11] MEDS: AMANTADINE 100MG TABLET PO SCH (09:07)
[2021-02-11] MEDS: PREGABALIN 100 MG CAP (LYRICA) PO SCH ×2 (09:07→20:22)
[2021-02-11] MEDS: DOCUSATE SODIUM 100MG CAPSULE PO SCH ×2 (09:08→20:23)
[2021-02-11] MEDS: hydrOXYzine 50 MG TAB PO SCH ×2 (09:08→20:27)
[2021-02-11] MEDS: PANTOPRAZOLE 40MG TAB (PROTONIX) PO SCH ×2 (09:08→20:22)
[2021-02-11] MEDS: FERROUS SULFATE 325MG TAB PO SCH (09:08)
[2021-02-11] MEDS: LACTOBACILLUS ACIDOPHILUS CAP (BACID) PO SCH ×2 (09:08→18:21)
[2021-02-11] MEDS: levETIRAcetam 250MG TABLET (KEPPRA) PO SCH ×2 (09:08→20:20)
[2021-02-11] MEDS: ATORVASTATIN 20 MG TAB PO SCH (09:08)
[2021-02-11] MEDS: BACLOFEN 10 MG TAB PO SCH ×2 (09:08→20:24)
[2021-02-11] MEDS: ACYCLOVIR 200 MG CAPSULE PO SCH ×2 (09:08→20:19)
[2021-02-11] MEDS: MAGNESIUM OXIDE 400MG TAB (MAG-OX) PO SCH ×2 (09:09→20:24)
[2021-02-11] MEDS: LACTULOSE 20 GM/30 ML SYRUP UD PO SCH (09:09)
[2021-02-11] MEDS: ACETAMINOPHEN TAB 650MG DOSE (2X325MG) PO PRN ×2 (13:37→20:29)
[2021-02-11 14:00] VITALS: BP 113/71
--- NOTE | 2021-02-11 15:25 | IPNPDOC ---
Text Note Date of Service The patient was seen on 02/11/21. NOTE SUBJECTIVE: -Very sleepy today -Discussed with that her phenytoin is being dosed TID instead of QHS, will resume QHS dosing -Had back pain this afternoon that did not remit with acetaminophen, giving some tramadol -No chest pain, SOB, fevers, chills. OBJECTIVE: PHYSICAL EXAMINATION: VITAL SIGNS: please see below General: NAD, somnolent, AAOX3 HEENT: PERRLA, EOMI, sclerae clear Neck: supple, normal ROM, no JVD Respiratory: lungs CTAB, no wheeze, no rales, no crackles CVS: RRR, normal S1, S2, no murmurs BACK: bilateral nephrostomy tubes draining to bedside bag Abdo: Soft, nontender. Extremities: no edema, pulses 2+ MSK: no joint deformities, normal ROM Neuro: 4/5 strength in all extremities, reflexes in tact. No sensory or motor loss. CN 2-12 intact Psych: Mood and affect appropriate LABORATORY DATA, IMAGING STUDIES, MICROBIOLOGY: Please see below. ASSESSMENT: 55 yo F with a hx of primary progressive MS, wheelchair bound, neurogenic bladder s/p cystectomy with diverting ileal conduit, bilateral hydronephrosis 2/2 bilateral obstructing ovarian cysts, recurrent UTI (most recently pseudomonas), COPD, HTN, CKD III, admitted for sepsis 2/2 pseudomonas UTI, as well as metabolic encephalopathy. PLAN: Pseudomonas UTI -WBC wnl, afebrile -On meropenem (Day 9) and plan is to continue for total of 14 days -ID consulted, if plan is for patient to go to rehab, can continue with IV abx through peripheral line. If patient to go home, will need mid-line with IV abx. Metabolic encephalopathy: -improved with treatment of UTI. However now somnolent, will switch TID dosed phenytoin back to QHS Acute on chronic CHRISTIAN possibly dilutional? vs. trauma from enema (no neelima blood) -Occult blood +. S/p 2 U PRBC 02/09/21 -H/H 9.8/30.7 -Discussed with Dr. Turpin, general surgery about occult blood +. At this time will agree to watch, not repeating CT scan. Low H/H could be 2/2 to bleed but also could be from worsening CHRISTIAN, dilution from fluids, recent enemas. -Last iron checked 12/2020 low at 7 -Will resume ASA, watch for change in H/H -Venofer x 3 doses, then resume ferrous sulfate PO at discharge Acute on chronic physical deconditioning -PT: would benefit from continued rehab services -Discussed with family, ARU vs. STR -ARU screen placed -C/w PT/OT Acute hyperkalemia 2/2 supplemented KCl: resolved -Stopped KCl BID -Daily labs Chronic kidney disease stage III 2/2 to obstruction from b/l hydronephrosis to ovarian cysts -Post-op day 8 for b/l nephrostomy tubes being placed, good output - will need to be kept in until obstructions (removal of ovarian cysts) are dealt with per Dr. Saha. -TERRELL resolved, Cr wnl -Encouraging fluids Q2H while awake -Daily labs, avoid nephrotoxic meds -Nephrostomy tubes placed by IR. Will need f/u with Dr. Perales Q3 months for this at discharge. Poor PO intake likely 2/2 to acute illnesses above-improving slowly -Watch with BID FS closely- nursing has not been doing these regularly-notified current nurse of order again -If BS drops, will start D5W fluids again -Encourage PO Constipation, chronic -Having daily BM currently -C/w regimen currently Bilateral hydronephrosis secondary to ovarian cysts, chronic -POD 7 b/l nephrostomy tube placement 02/03/21, good output - to keep as o/p per Dr. Saha -S/p cystectomy and ileal conduit (3 years ago) -Orellana catheter in stoma was replaced in clinic on 01/31/[address] Everett, and is draining urine appropriately, and conduit appears normal on CT -Per urology, further intervention to be done in [place] for stomal stenosis an d bilateral ovarian masses causing hydronephrosis -Prior hospitalist (Dr. 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 Graves (specialist urologist at [facility] following pt) - Dr. Schaefer. Agrees with bilateral nephrostomy tubes. Once patient recovered, patient can f/u as o/p. -Monitor daily labs -Urology discussed case (Dr. Yifan) and agrees with above Epilepsy/tonic clonic seizure on 02/01/21 -No seizure activity seen since admission -EEG neg for seizure activity, reviewed with neurology -Low keppra level and now normal phenytoin level -Keppra to 500 mg BID -phenytoin 600 mg QD Primary progressive multiple sclerosis, wheelchair bound, neurogenic bladder - Follows with a neurologist in [place] at [facility]. - Had MRI in 01/2021 without acute changes - C/w amantadine Neurogenic bowel -Chronic COPD -Stable on RA -compensated Chronic hypomagnesemia -C/w mag ox supplement Hx of Hypertension -Stable Torticollis, pseudobulbar affect -Chronic and stable B12 deficiency -Supplement Migraine headaches -No complaints Obesity -Complicating care Anxiety, depression -Chronic Chronic insomnia -PRN MED GERD -PPI BID-home med DVT px -SCD, pedro with recent occult + stool Resolved issues: Acute metabolic encephalopathy likely multifactorial or individually due to sepsis 2/2 to recurrent pseudomonas UTI vs. possible seizure activity Acute hypernatremia, hyperchloridemia likely 2/2 to nephrostomy tube o/p DISPOSITION: Currently inpatient status. Per PT would likely benefit from continued rehab. ARU screen placed. VS,Fishbone, I+O VS, Fishbone, I+O Laboratory Tests 02/11/21 06:08 Vital Signs Date Time Temp Pulse Resp B/P (MAP) Pulse Ox O2 Delivery O2 Flow Rate FiO2 02/11/21 14:00 98.3 98 18 113/71 (85) 93 Room Air I&O- Last 24 Hours up to 6 AM 02/11/21 06:00 Intake Total 820 ml Output Total 2345 ml Balance -1525 ml SANA HERNANDEZ MD Feb 11, 2021 15:25
[2021-02-11] MEDS: traMADol 50 MG TAB PO PRN (15:27)
--- NOTE | 2021-02-11 17:31 | REP ---
INDICATION: rt flank pain. Decreased percutaneous nephrostomy tube output with hydronephrosis. COMPARISON: Comparison CT study February 02, 2021. Comparison KUB February 06, 2021.. Urinary tract sonography. TECHNIQUE: Urinary tract sonography. FINDINGS: Urinary bladder is not seen consistent with surgical absence.. Renal cortical echogenicity pattern is normal bilaterally and contours are smooth. There is moderate bilateral hydronephrosis. Scan quality is inhibited by patient's inability to position in decubitus position and a suspend respiration.. The right kidney measures 10.3 x 5.2 x 4.6 cm. Left renal dimensions are 11.6 x 4.8 x 5.1 cm. The percutaneous nephrostomy catheters are not well seen. A catheter echo focus is believed to be visible in the renal pelvis on the left. IMPRESSION: Moderate bilateral hydronephrosis.. <Electronically signed by Chan Villa > 02/11/21 [id number]
--- NOTE | 2021-02-11 20:00 | IPN ---
INFECTIOUS DISEASE PROGRESS NOTE DATE: 02/11/2021 ATTENDING PHYSICIAN: Salvatore Lobato MD SUBJECTIVE: Elise was seen and examined this afternoon while lying upright in bed by the infectious disease service. Her , Robby, is present in the room. Speaking with both Robby and her nurse, Elise was recently repositioned in the bed about 10 minutes earlier and afterwards, she had a significant outflow of urine through her Orellana and ileal conduit of approximately 50 cc. Overall, she is a little bit slower in her responses today, but still appears to be in good spirits and answering all questions and commands appropriately. She denies any overnight or current fever, chills, night sweats. She denies any abdominal pain, nausea, vomiting, or diarrhea and has no significant pain associated with the bilateral nephrostomy tubes that are in place. She is remaining afebrile and also denies feeling short of breath. OBJECTIVE: PHYSICAL EXAMINATION: VITAL SIGNS: Temperature 98.3, heart rate 98, respiratory rate 18, blood pressure 113/71, SPO2 of 93% on room air. BMI of 39.8. GENERAL: Obese female lying in bed. A little bit slower in her responses today, but still responding appropriately to all questions and commands. Alert and oriented x3. HEENT: Normocephalic, atraumatic. Non-injected, anicteric sclerae. PERRLA. Some mild conjunctival pallor. ORAL CAVITY: No pharyngeal erythema or exudate appreciated. Mucous membranes are moist. NECK: Wide neck with no appreciated lymphadenopathy. CARDIOVASCULAR: Borderline tachycardic rate, regular rhythm. Normal S1, S2. No murmurs or rubs are appreciated. RESPIRATORY: Clear to auscultation bilaterally with diminished breath sounds and tidal volume. No adventitious breath sounds appreciated. Symmetric chest expansion. ABDOMEN: Obese. There is the ileal conduit and connecting Orellana catheter in place. Abdomen is soft and nontender. There are some healed scars around the umbilicus; difficult to assess for hepatosplenomegaly secondary to habitus. BACK: There are bilateral nephrostomy tubes in place at the costal angles bilaterally with no real significant drainage in the right bag and about 100 cc drained in the left bag. EXTREMITIES: There is 1+ pitting of the left upper extremity as well as bilateral swelling of lower extremities with 1+ pitting edema of the right lower extremity. GENITOURINARY: The bilateral nephrostomy tubes are in place with the ileal conduit and attached Orellana catheter in the right abdominal quadrant. LABORATORY DATA: CBC: WBC 10.9, hemoglobin 10.5, hematocrit 32.7, platelet count 347,000. CMP: Sodium 140, potassium 4.8, chloride 107, bicarb 26, BUN 15, creatinine 1.24, glucose 82, calcium 9.1, total bilirubin 0.4, AST 18 ALT 19, alkaline phosphatase 304., total protein 6.3, albumin 2.7. Stool guaiac was positive on 02/08/2021. IMAGING: No new imaging ordered to this point. IMPRESSION: 1. Pseudomonas aeruginosa, pyelonephritis on I.V. Meropenem in the setting of recurrent urinary tract infections with ileal conduit. Dose of Meropenem was increased yesterday to 1 gram every 8 hours. Her kidney function has significantly improved and creatinine has been stable for the past three days. She was just admitted two weeks ago and treated for both pseudomonas aeruginosa, bacteremia and UTI. She received 10 days of Meropenem at that time and due to her subsequent re-infection with pseudomonas, we are continuing with the Meropenem for a total of 14 days. She is currently on day #9 and should receive coverage through February 16. 2. Acute renal failure; likely secondary to bilateral hydronephrosis. This has resolved as kidney function has been stable and within normal limits for the past three days. 3. Bilateral hydroureteronephrosis secondary to bilateral obstructing cysts. Patient has outpatient follow-up both with urology in [place] (scheduled for 02/13/2021) and gynecology (locally with Dr. Hanson on 03/04/2021) to assess for intervention to address the obstructing cysts. Until a plan is determined to resolve the obstruction, her nephrostomy tubes will remain in place. Of note today, there did not appear to be much if anything draining from the right nephrostomy tube. As a result, we ordered a right renal ultrasound. In the time waiting for the results of the ultrasound, we touched base with Dr. Perales of intervention radiology, who agreed to take the patient tomorrow to assess for nephrostomy tube patency. At this point, it was too late to cancel the right renal ultrasound and thus that study was performed with impression pending at this time. 4. Guaiac stool positive with recent constipation. A colonoscopy is warranted for further work-up. SUMMARY: We will continue with I.V. Meropenem 1 gram every 8 hours. She is currently on day #9 of 14 and will complete her course on 02/16/2021. CAROLD
[2021-02-11] MEDS: ASPIRIN 81MG ENTERIC TABLET PO SCH (20:20)
[2021-02-11] MEDS: SENNA 8.6 MG TAB (SENOKOT) PO SCH (20:21)
[2021-02-11] MEDS: ARIPiprazole 2 MG TAB PO SCH (20:22)
[2021-02-11] MEDS: clonazePAM 1 MG TAB PO SCH (20:27)
[2021-02-11] MEDS ORDERED: PHENYTOIN ER 100 MG CAP PO ONE (21:00)
[2021-02-11 22:00] VITALS: BP 122/85
[2021-02-12] MEDS: MEROPENEM INJ 1 GM in IV 1 EA IV SCH ×3 (03:41→20:11)
[2021-02-12] MEDS: LEVOTHYROXINE 50MCG TABLET (0.05MG) PO SCH (05:33)
[2021-02-12 06:00] VITALS: BP 104/62
[2021-02-12 06:46] LABS: HEMATOCRIT 34.6 % (36.0-47.0); MEAN CORPUSCULAR HEMOGLOBIN 27.4 pg (27.0-33.0); MEAN CORPUSCULAR HGB CONC 31.8 g/dl (32.0-36.5); MEAN CORPUSCULAR VOLUME 86.1 fl (80.0-96.0); PLATELET COUNT, AUTOMATED 377 10^3/uL (150-450); RED BLOOD COUNT 4.02 10^6/uL (4.00-5.40); WHITE BLOOD COUNT 9.7 10^3/uL (4.0-10.0)
[2021-02-12 07:12] LABS: ALBUMIN 2.5 GM/DL (3.2-5.2); BILIRUBIN,TOTAL 0.5 MG/DL (0.2-1.0); CALCIUM LEVEL 9.3 MG/DL (8.5-10.1); CREATININE FOR GFR 1.51 MG/DL (0.55-1.30); GLOMERULAR FILTRATION RATE 38.4 (>51); PHENYTOIN (DILANTIN) 10.8 UG/ML (10.0-20.0); POTASSIUM SERUM 4.8 MEQ/L (3.5-5.1); TOTAL PROTEIN 6.2 GM/DL (6.4-8.2)
[2021-02-12] MEDS ORDERED: IRON SUCROSE 100 MG in NS 100 ML OVER 1 HR IV ONE (09:00)
[2021-02-12] MEDS ORDERED: IRON SUCROSE 100MG 5ML VIAL (J1756 PER 1MG) IV SCH (09:00)
[2021-02-12] MEDS: LACTULOSE 20 GM/30 ML SYRUP UD PO SCH (09:17)
[2021-02-12] MEDS: LACTOBACILLUS ACIDOPHILUS CAP (BACID) PO SCH ×2 (09:20→17:08)
[2021-02-12] MEDS: IRON SUCROSE 100 MG in NS 100 ML OVER 1 HR IV SCH (09:20)
[2021-02-12] MEDS: DULoxetine 30 MG CAP (CYMBALTA) PO SCH ×2 (09:20→20:16)
[2021-02-12] MEDS: hydrOXYzine 50 MG TAB PO SCH (09:22)
[2021-02-12] MEDS: DOCUSATE SODIUM 100MG CAPSULE PO SCH ×2 (09:22→20:17)
[2021-02-12] MEDS: PANTOPRAZOLE 40MG TAB (PROTONIX) PO SCH ×2 (09:23→20:13)
[2021-02-12] MEDS: AMANTADINE 100MG TABLET PO SCH (09:23)
[2021-02-12] MEDS: MAGNESIUM OXIDE 400MG TAB (MAG-OX) PO SCH ×2 (09:23→20:19)
[2021-02-12] MEDS: BACLOFEN 10 MG TAB PO SCH (09:24)
[2021-02-12] MEDS: levETIRAcetam 250MG TABLET (KEPPRA) PO SCH ×2 (09:24→20:15)
[2021-02-12] MEDS: PREGABALIN 100 MG CAP (LYRICA) PO SCH ×2 (09:24→20:17)
[2021-02-12] MEDS: ACYCLOVIR 200 MG CAPSULE PO SCH ×2 (09:24→20:13)
[2021-02-12] MEDS: ATORVASTATIN 20 MG TAB PO SCH (09:24)
--- NOTE | 2021-02-12 09:57 | IPNPDOC ---
Text Note Date of Service The patient was seen on 02/12/21. NOTE SUBJECTIVE: -Continues to be very somnolent -Had worsening back pain yesterday afternoon -R nephrostomy output is low -Had renal US that showed bilateral hydronephrosis -No chest pain, SOB, fevers, chills. OBJECTIVE: PHYSICAL EXAMINATION: VITAL SIGNS: please see below General: NAD, somnolent, AAOX3 HEENT: PERRLA, EOMI, sclerae clear Neck: supple, normal ROM, no JVD Respiratory: lungs CTAB, no wheeze, no rales, no crackles CVS: RRR, normal S1, S2, no murmurs BACK: bilateral nephrostomy tubes draining to bedside bag Abdo: Soft, nontender. Urostomy in place, no redness with some urine in bag. Extremities: no edema, pulses 2+ MSK: no joint deformities, normal ROM Neuro: 4/5 strength in all extremities, reflexes in tact. No sensory or motor loss. CN 2-12 intact Psych: Mood and affect appropriate LABORATORY DATA, IMAGING STUDIES, MICROBIOLOGY: Reviewed Cr uptrended to 1.51 ASSESSMENT: 55 yo F with a hx of primary progressive MS, wheelchair bound, neurogenic bladder s/p cystectomy with diverting ileal conduit, bilateral hydronephrosis 2/2 bilateral obstructing ovarian cysts, recurrent UTI (most recently pseudomonas), COPD, HTN, CKD III, admitted for sepsis 2/2 pseudomonas UTI, as well as metabolic encephalopathy. PLAN: Pseudomonas UTI -WBC wnl, afebrile -On meropenem (Day 10) and plan is to continue for total of 14 days -ID consulted, if plan is for patient to go to rehab, can continue with IV abx through peripheral line. If patient to go home, will need mid-line with IV abx. Metabolic encephalopathy: initially improved, however now somnolent -improved with treatment of UTI. -Hold baclofen, reduce atarax to 25mg from 50mg dosing, dc QHS abilify. Will continue lyrica, duloxetine, QHS benzo, AEDs at current dosing. Acute on chronic CHRISTIAN possibly dilutional? vs. trauma from enema (no neelima blood) -Occult blood +. S/p 2 U PRBC 02/09/21 -H/H 9.8/30.7 -Discussed with Dr. Turpin, general surgery about occult blood +. At this time will agree to watch, not repeating CT scan. Low H/H could be 2/2 to bleed but also could be from worsening CHRISTIAN, dilution from fluids, recent enemas. -Last iron checked 12/2020 low at 7 -Will resume ASA, watch for change in H/H -Venofer x 3 doses, then resume ferrous sulfate PO at discharge Acute on chronic physical deconditioning -PT: would benefit from continued rehab services -Discussed with family, ARU vs. STR -ARU screen placed -C/w PT/OT Acute hyperkalemia 2/2 supplemented KCl: resolved -Stopped KCl BID -Daily labs Chronic kidney disease stage III 2/2 to obstruction from b/l hydronephrosis to ovarian cysts -Post-op day 9 for b/l nephrostomy tubes being placed - will need to be kept in until obstructions (removal of ovarian cysts) are dealt with per Dr. Saha. Was placed by IR, now c/b R neph tube reduction in output and worsening Cr. Called Dr. Lazaro, will see her this afternoon -Cr uptrended --> monitoring -Encouraging fluids Q2H while awake -Daily labs, avoid nephrotoxic meds -Nephrostomy tubes placed by IR. Called Dr. Lazaro, will see her this afternoon. Will need f/u with Dr. Perales Q3 months for this at discharge. Poor PO intake likely 2/2 to acute illnesses above-improving slowly -Watch with BID FS closely- nursing has not been doing these regularly-notified current nurse of order again -If BS drops, will start D5W fluids again -Encourage PO Constipation, chronic -Having daily BM currently -C/w regimen currently Bilateral hydronephrosis secondary to ovarian cysts, chronic -POD 9 b/l nephrostomy tube placement 02/03/21 - to keep as o/p per Dr. Saha. Will need to be kept in until obstructions (removal of ovarian cysts) are dealt with per Dr. Saha. Was placed by IR, now c/b R neph tube reduction in output and worsening Cr. Called Dr. Lazaro, will see her this afternoon -S/p cystectomy and ileal conduit (3 years ago) -Orellana catheter in stoma was replaced in clinic on 01/31/[address] Everett, and is draining urine appropriately, and conduit appears normal on CT -Per urology, further intervention to be done in [place] for stomal stenosis and bilateral ovarian masses causing hydronephrosis -Prior hospitalist (Dr. 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 Graves (specialist urologist at [facility] following pt) - Dr. Schaefer. Agrees with bilateral nephrostomy tubes. Once patient karel letty, patient can f/u as o/p. -Monitor daily labs Epilepsy/tonic clonic seizure on 02/01/21 -No seizure activity seen since admission -EEG neg for seizure activity, reviewed with neurology -Low keppra level and now normal phenytoin level -Keppra to 500 mg BID -phenytoin 600 mg QD Primary progressive multiple sclerosis, wheelchair bound, neurogenic bladder - Follows with a neurologist in [place] at [facility]. - Had MRI in 01/2021 without acute changes - C/w amantadine Neurogenic bowel -Chronic COPD -Stable on RA -compensated Chronic hypomagnesemia -C/w mag ox supplement Hx of Hypertension -Stable Torticollis, pseudobulbar affect -Chronic and stable B12 deficiency -Supplement Migraine headaches -No complaints Obesity -Complicating care Anxiety, depression -Chronic Chronic insomnia -has QHS benzo. stopped nightly abilify. GERD -PPI BID-home med DVT px -SCD, pedro with recent occult + stool Resolved issues: Acute hypernatremia, hyperchloridemia likely 2/2 to nephrostomy tube o/p DISPOSITION: Currently inpatient status. Per PT would likely benefit from continued rehab. ARU screen placed. VS,Fishbone, I+O VS, Fishbone, I+O Laboratory Tests 02/12/21 05:53 Vital Signs Date Time Temp Pulse Resp B/P (MAP) Pulse Ox O2 Delivery O2 Flow Rate FiO2 02/12/21 06:00 98.8 98 16 104/62 (76) 94 Room Air I&O- Last 24 Hours up to 6 AM 02/12/21 06:00 Intake Total 490 ml Output Total 1650 ml Balance -1160 ml SANA HERNANDEZ MD Feb 12, 2021 09:57
[2021-02-12] MEDS ORDERED: LIDOCAINE 1% MDV 20ML VIAL As Ordered ONE (14:52)
[2021-02-12] MEDS ORDERED: ISOVUE-300 61% 50ML VIAL As Ordered ONE (14:52)
[2021-02-12] MEDS ORDERED: fentaNYL 100 MCG/2 ML INJECTION (J3010) As Ordered ONE (15:04)
[2021-02-12] MEDS ORDERED: diphenhydrAMINE 50MG/ML VIAL (J1200) As Ordered ONE (15:04)
[2021-02-12] MEDS ORDERED: MIDAZOLAM INJ 2MG/2ML VIAL (J2250 PER 1MG) As Ordered ONE (15:05)
[2021-02-12 16:25] VITALS: BP 107/66
[2021-02-12] MEDS: NS 1,000 ML IV SCH (18:14)
[2021-02-12] MEDS: ASPIRIN 81MG ENTERIC TABLET PO SCH (20:15)
[2021-02-12] MEDS: SENNA 8.6 MG TAB (SENOKOT) PO SCH (20:16)
[2021-02-12] MEDS: hydrOXYzine 25 MG TAB PO SCH (20:17)
[2021-02-12] MEDS: PHENYTOIN ER 100 MG CAP PO SCH (20:20)
[2021-02-12] MEDS: clonazePAM 1 MG TAB PO SCH (20:20)
[2021-02-12] MEDS: ACETAMINOPHEN TAB 650MG DOSE (2X325MG) PO PRN (20:21)
[2021-02-12 22:00] VITALS: BP 106/69
[2021-02-13] MEDS: MEROPENEM INJ 1 GM in IV 1 EA IV SCH ×3 (03:52→20:22)
[2021-02-13] MEDS: LEVOTHYROXINE 50MCG TABLET (0.05MG) PO SCH (05:44)
[2021-02-13] MEDS: NS 1,000 ML IV SCH (05:44)
[2021-02-13 06:00] VITALS: BP 106/67
[2021-02-13] MEDS: LACTULOSE 20 GM/30 ML SYRUP UD PO SCH (08:04)
[2021-02-13] MEDS: IRON SUCROSE 100 MG in NS 100 ML OVER 1 HR IV SCH (08:04)
[2021-02-13] MEDS: MAGNESIUM OXIDE 400MG TAB (MAG-OX) PO SCH ×2 (08:04→20:23)
[2021-02-13] MEDS: DOCUSATE SODIUM 100MG CAPSULE PO SCH ×2 (08:04→20:23)
[2021-02-13] MEDS: ACYCLOVIR 200 MG CAPSULE PO SCH ×2 (08:05→20:22)
[2021-02-13] MEDS: DULoxetine 30 MG CAP (CYMBALTA) PO SCH ×2 (08:05→20:23)
[2021-02-13] MEDS: hydrOXYzine 25 MG TAB PO SCH ×2 (08:05→20:23)
[2021-02-13] MEDS: LACTOBACILLUS ACIDOPHILUS CAP (BACID) PO SCH ×2 (08:05→17:48)
[2021-02-13] MEDS: AMANTADINE 100MG TABLET PO SCH (08:05)
[2021-02-13] MEDS: PANTOPRAZOLE 40MG TAB (PROTONIX) PO SCH ×2 (08:05→20:23)
[2021-02-13] MEDS: levETIRAcetam 250MG TABLET (KEPPRA) PO SCH ×2 (08:05→20:22)
[2021-02-13] MEDS: PREGABALIN 100 MG CAP (LYRICA) PO SCH ×2 (08:05→20:23)
[2021-02-13] MEDS: ACETAMINOPHEN TAB 650MG DOSE (2X325MG) PO PRN (08:06)
[2021-02-13] MEDS: ATORVASTATIN 20 MG TAB PO SCH (08:09)
[2021-02-13] MEDS: traMADol 50 MG TAB PO PRN (10:10)
[2021-02-13] MEDS ORDERED: MORPHINE SULFATE ORAL SOLN 10 MG/5 ML UD PO PRN (11:15)
--- NOTE | 2021-02-13 11:33 | IPNPDOC ---
Text Note Date of Service The patient was seen on 02/13/21. NOTE SUBJECTIVE: -More awake this morning, having breakfast -Nephrostomy tubes were interrogated yesterday and are working well -No chest pain, SOB, fevers, chills. OBJECTIVE: PHYSICAL EXAMINATION: VITAL SIGNS: please see below General: NAD, somnolent, AAOX3 HEENT: PERRLA, EOMI, sclerae clear Neck: supple, normal ROM, no JVD Respiratory: lungs CTAB, no wheeze, no rales, no crackles CVS: RRR, normal S1, S2, no murmurs BACK: bilateral nephrostomy tubes draining to bedside bag Abdo: Soft, nontender. Urostomy in place, no redness with clear yellow urine in bag. Extremities: no edema, pulses 2+ MSK: no joint deformities, normal ROM Neuro: 4/5 strength in all extremities, reflexes in tact. No sensory or motor loss. CN 2-12 intact Psych: Mood and affect appropriate LABORATORY DATA, IMAGING STUDIES, MICROBIOLOGY: Reviewed ASSESSMENT: 55 yo F with a hx of primary progressive MS, wheelchair bound, neurogenic bladder s/p cystectomy with diverting ileal conduit, bilateral hydronephrosis 2/2 bilateral obstructing ovarian cysts, recurrent UTI (most recently pseudomonas), COPD, HTN, CKD III, admitted for sepsis 2/2 pseudomonas UTI, as well as metabolic encephalopathy. PLAN: Pseudomonas UTI -WBC wnl, afebrile -On meropenem (Day 11) and plan is to continue for total of 14 days -ID consulted, if plan is for patient to go to rehab, can continue with IV abx through peripheral line. If patient to go home, will need mid-line with IV abx. Metabolic encephalopathy: Somnolence much improved today -improved with treatment of UTI. -Held baclofen, reduced atarax to 25mg from 50mg dosing, dc'd QHS abilify. -continue lyrica, duloxetine, QHS benzo, AEDs at current dosing. Acute on chronic CHRISTIAN possibly dilutional? vs. trauma from enema (no neelima blood) -Occult blood +. S/p 2 U PRBC 02/09/21 -H/H 9.8/30.7 -Discussed with Dr. Turpin, general surgery about occult blood +. At this time will agree to watch, not repeating CT scan. Low H/H could be 2/2 to bleed but also could be from worsening CHRISTIAN, dilution from fluids, recent enemas. -Last iron checked 12/2020 low at 7 -continue ASA -Venofer x 3 doses, then resume ferrous sulfate PO at discharge Acute on chronic physical deconditioning -PT: would benefit from continued rehab services -Discussed with family, ARU vs. STR -ARU screen placed, will -C/w PT/OT Acute hyperkalemia 2/2 supplemented KCl: resolved -Stopped KCl BID -Daily labs Chronic kidney disease stage III 2/2 to obstruction from b/l hydronephrosis to ovarian cysts -Post-op day 9 for b/l nephrostomy tubes being placed - will need to be kept in until obstructions (removal of ovarian cysts) are dealt with per Dr. Saha. Was placed by IR, now c/b R neph tube reduction in output and worsening Cr. Called Dr. Lazaro, will see her this afternoon -Cr uptrended --> monitoring -Encouraging fluids Q2H while awake -Daily labs, avoid nephrotoxic meds -Nephrostomy tubes placed by IR. Called Dr. Lazaro, will see her this afternoon. Will need f/u with Dr. Perales Q3 months for this at discharge. Poor PO intake likely 2/2 to acute illnesses above-improving slowly -Watch with BID FS closely- nursing has not been doing these regularly-notified current nurse of order again -If BS drops, will start D5W fluids again -Encourage PO Constipation, chronic -Having daily BM currently -C/w regimen currently Bilateral hydronephrosis secondary to ovarian cysts, chronic -POD 10 b/l nephrostomy tube placement 02/03/21 - to keep as o/p per Dr. Saha. Will need to be kept in until obstructions (removal of ovarian cysts) are dealt with per Dr. Saha. -S/p cystectomy and ileal conduit (3 years ago) -Orellana catheter in stoma was replaced in clinic on 01/31/[address] Everett, and is draining urine appropriately, and conduit appears normal on CT -Per urology, further intervention to be done in [place] for stomal stenosis and bilateral ovarian masses causing hydronephrosis -Prior hospitalist (Dr. Tan) spoke to patient's baseline urologist supervisor photocomposition in office of Dr. Graves (specialist urologist at [facility] following pt) - Dr. Schaefer. Agrees with bilateral nephrostomy tubes. Once patient recovered, patient can f/u as o/p. -Monitor daily labs Epilepsy/tonic clonic seizure on 02/01/21 -No seizure activity seen since admission -EEG neg for seizure activity, reviewed with neurology -Low keppra level and now normal phenytoin level -Keppra to 500 mg BID -phenytoin 600 mg QD Primary progressive multiple sclerosis, wheelchair bound, neurogenic bladder - Follows with a neurologist in [place] at [facility]. - Had MRI in 01/2021 without acute changes - C/w amantadine Neurogenic bowel -Chronic COPD -Stable on RA -compensated Chronic hypomagnesemia -C/w mag ox supplement Hx of Hypertension -Stable Torticollis, pseudobulbar affect -Chronic and stable B12 deficiency -Supplement Migraine headaches -No complaints Obesity -Complicating care Anxiety, depression -Chronic Chronic insomnia -has QHS benzo. stopped nightly abilify. GERD -PPI BID-home med DVT px -SCD, pedro with recent occult + stool Resolved issues: Acute hypernatremia, hyperchloridemia likely 2/2 to nephrostomy tube o/p DISPOSITION: Currently inpatient status. Plan is for STR, but ARU will also be considered. VS,Fishbone, I+O VS, Fishbone, I+O Vital Signs Date Time Temp Pulse Resp B/P (MAP) Pulse Ox O2 Delivery O2 Flow Rate FiO2 02/13/21 10:10 15 02/13/21 06:00 97.3 96 106/67 (80) 99 Room Air I&O- Last 24 Hours up to 6 AM 02/13/21 05:59 Intake Total 1000 ml Output Total 975 ml Balance 25 ml SANA HERNANDEZ MD Feb 13, 2021 11:33
[2021-02-13 12:07] LABS: HEMATOCRIT 33.8 % (36.0-47.0); HEMOGLOBIN 10.6 g/dl (12.0-15.5); MEAN CORPUSCULAR HEMOGLOBIN 27.2 pg (27.0-33.0); MEAN CORPUSCULAR HGB CONC 31.4 g/dl (32.0-36.5); MEAN CORPUSCULAR VOLUME 86.7 fl (80.0-96.0); PLATELET COUNT, AUTOMATED 365 10^3/uL (150-450); WHITE BLOOD COUNT 8.3 10^3/uL (4.0-10.0)
[2021-02-13 12:52] LABS: CALCIUM LEVEL 8.8 MG/DL (8.5-10.1); CREATININE FOR GFR 1.1 MG/DL (0.55-1.30); GLOMERULAR FILTRATION RATE 55.3 (>51); POTASSIUM SERUM 4.6 MEQ/L (3.5-5.1)
[2021-02-13 14:00] VITALS: BP 105/68
--- NOTE | 2021-02-13 16:23 | IRPON ---
IR Postoperative Note Date Of Procedure: Feb 12, 2021 Time Of Procedure: 16:00 IR Postoperative Note IR Bilateral nephrostogram and ureterogram. Clinical information: Patient with ileal conduit and bilateral ureteral obstruction. Bilateral nephrostomy catheters were draining very well but recently the right nephrostomy catheter is reportedly not draining as well. Patient's creatinine has increased and she is referred for evaluation. Physician: Dr. Perales. Procedure: The patient was advised of the benefits, risks and alternatives of the procedure and informed consent was obtained. The time-out was performed with verification of the patient's name, MRN, site of procedure and type of procedure to be performed. The patient was positioned in the prone position on the angiographic table. The site was prepped and draped in the usual sterile fashion. Moderate sedation was not required. The physician spent 15 minutes of continuous face to face time with the patient. A refrigeration service inspector radiograph reveals bilateral nephrostomy catheters in expected location. A nephrostogram and ureterogram was performed through the preexisting right nephrostomy catheter. This demonstrates the right nephrostomy catheter is patent and the pigtail is located appropriately in the right renal pelvis. No right- sided hydronephrosis. There is hydroureter and the ureter is patent to the conduit. A nephrostogram and ureterogram was also performed through the existing left nephrostomy catheter. This demonstrates the left nephrostomy catheter is patent and in good position within the left renal pelvis. Both catheters were flushed with sterile saline and attached to gravity bags. The patient tolerated the procedure well and was returned to the PRU in stable condition. EBL: Less than 5 ml. Complications: None. Conclusion: Nephrostogram and ureterogram demonstrate patent bilateral nephrostomy catheters in good position. Thank you for this referral. MAICOL PERALES MD Feb 13, 2021 16:22
[2021-02-13] MEDS: PHENYTOIN ER 100 MG CAP PO SCH (20:22)
[2021-02-13] MEDS: clonazePAM 1 MG TAB PO SCH (20:23)
[2021-02-13] MEDS: SENNA 8.6 MG TAB (SENOKOT) PO SCH (20:23)
[2021-02-13] MEDS: ASPIRIN 81MG ENTERIC TABLET PO SCH (20:23)
[2021-02-13 22:00] VITALS: BP 108/69
[2021-02-14] MEDS: MEROPENEM INJ 1 GM in IV 1 EA IV SCH ×3 (03:36→20:30)
[2021-02-14] MEDS: LEVOTHYROXINE 50MCG TABLET (0.05MG) PO SCH (05:52)
[2021-02-14 06:00] VITALS: BP 107/69
[2021-02-14 06:42] LABS: HEMATOCRIT 30.7 % (36.0-47.0); HEMOGLOBIN 9.6 g/dl (12.0-15.5); MEAN CORPUSCULAR HEMOGLOBIN 27.2 pg (27.0-33.0); MEAN CORPUSCULAR HGB CONC 31.3 g/dl (32.0-36.5); PLATELET COUNT, AUTOMATED 314 10^3/uL (150-450); RED BLOOD COUNT 3.53 10^6/uL (4.00-5.40); WHITE BLOOD COUNT 8.5 10^3/uL (4.0-10.0)
[2021-02-14 07:05] LABS: C REACTIVE PROTEIN QUANTITATIV 8.55 MG/DL (0.00-0.30); CALCIUM LEVEL 8.3 MG/DL (8.5-10.1); CREATININE FOR GFR 1.1 MG/DL (0.55-1.30); GLOMERULAR FILTRATION RATE 55.3 (>51); POTASSIUM SERUM 4.1 MEQ/L (3.5-5.1)
[2021-02-14] MEDS: PREGABALIN 100 MG CAP (LYRICA) PO SCH ×2 (08:53→20:32)
[2021-02-14] MEDS: levETIRAcetam 250MG TABLET (KEPPRA) PO SCH ×2 (08:53→20:38)
[2021-02-14] MEDS: ACYCLOVIR 200 MG CAPSULE PO SCH ×2 (08:53→20:30)
[2021-02-14] MEDS: AMANTADINE 100MG TABLET PO SCH (08:53)
[2021-02-14] MEDS: DOCUSATE SODIUM 100MG CAPSULE PO SCH ×2 (08:54→20:38)
[2021-02-14] MEDS: IRON SUCROSE 100 MG in NS 100 ML OVER 1 HR IV SCH (08:54)
[2021-02-14] MEDS: LACTOBACILLUS ACIDOPHILUS CAP (BACID) PO SCH ×2 (08:54→18:35)
[2021-02-14] MEDS: MAGNESIUM OXIDE 400MG TAB (MAG-OX) PO SCH ×2 (08:54→20:38)
[2021-02-14] MEDS: hydrOXYzine 25 MG TAB PO SCH ×2 (08:54→20:38)
[2021-02-14] MEDS: PANTOPRAZOLE 40MG TAB (PROTONIX) PO SCH ×2 (08:54→20:39)
[2021-02-14] MEDS: DULoxetine 30 MG CAP (CYMBALTA) PO SCH ×2 (08:54→20:37)
[2021-02-14] MEDS: LACTULOSE 20 GM/30 ML SYRUP UD PO SCH (08:54)
[2021-02-14] MEDS: ATORVASTATIN 20 MG TAB PO SCH (08:54)
--- NOTE | 2021-02-14 13:07 | IPNPDOC ---
Text Note Date of Service The patient was seen on 02/14/21. NOTE SUBJECTIVE: -More awake this morning but still a bit tired -No chest pain, SOB, fevers, chills. OBJECTIVE: PHYSICAL EXAMINATION: VITAL SIGNS: please see below General: NAD, somnolent, AAOX3 HEENT: PERRLA, EOMI, sclerae clear Neck: supple, normal ROM, no JVD Respiratory: lungs CTAB, no wheeze, no rales, no crackles CVS: RRR, normal S1, S2, no murmurs BACK: bilateral nephrostomy tubes draining to bedside bag Abdo: Soft, nontender. Urostomy in place, no redness with clear yellow urine in bag. Extremities: no edema, pulses 2+ MSK: no joint deformities, normal ROM Neuro: 4/5 strength in all extremities, reflexes in tact. No sensory or motor loss. CN 2-12 intact Psych: Mood and affect appropriate LABORATORY DATA, IMAGING STUDIES, MICROBIOLOGY: Reviewed ASSESSMENT: 55 yo F with a hx of primary progressive MS, wheelchair bound, neurogenic bladder s/p cystectomy with diverting ileal conduit, bilateral hydronephrosis 2/2 bilateral obstructing ovarian cysts, recurrent UTI (most recently pseudomonas), COPD, HTN, CKD III, admitted for sepsis 2/2 pseudomonas UTI, as well as metabolic encephalopathy. PLAN: Pseudomonas UTI -WBC wnl, afebrile -On meropenem (Day 12) and plan is to continue for total of 14 days -ID consulted, if plan is for patient to go to rehab, can continue with IV abx through peripheral line. If patient to go home, will need mid-line with IV abx. Metabolic encephalopathy: Somnolence much improved today -improved with treatment of UTI. -Held baclofen, reduced atarax to 25mg from 50mg dosing, dc'd QHS abilify. -continue lyrica, duloxetine, QHS benzo, AEDs at current dosing. Acute on chronic CHRISTIAN possibly dilutional? vs. trauma from enema (no neelima blood) -Occult blood +. S/p 2 U PRBC 02/09/21 -H/H 9.8/30.7 -Discussed with Dr. Turpin, general surgery about occult blood +. At this time will agree to watch, not repeating CT scan. Low H/H could be 2/2 to bleed but also could be from worsening CHRISTIAN, dilution from fluids, recent enemas. -Last iron checked 12/2020 low at 7 -continue ASA -Venofer x 3 doses, then resume ferrous sulfate PO at discharge Acute on chronic physical deconditioning -PT: would benefit from continued rehab services -Discussed with family, ARU vs. STR -ARU screen placed, will -C/w PT/OT Acute hyperkalemia 2/2 supplemented KCl: resolved -Stopped KCl BID -Daily labs Chronic kidney disease stage III 2/2 to obstruction from b/l hydronephrosis to ovarian cysts -Post-op day 10 for b/l nephrostomy tubes being placed - will need to be kept in until obstructions (removal of ovarian cysts) are dealt with per Dr. Saha. Was placed by IR, now c/b R neph tube reduction in output and worsening Cr. Called Dr. Lazaro, will see her this afternoon -Cr normalized -Encouraging fluids Q2H while awake -Daily labs, avoid nephrotoxic meds -Nephrostomy tubes placed by IR. Called Dr. Lazaro, will see her this afternoon. Will need f/u with Dr. Perales Q3 months for this at discharge. Poor PO intake likely 2/2 to acute illnesses above-improving -Encourage PO Constipation, chronic -Having daily BM currently -C/w regimen currently Bilateral hydronephrosis secondary to ovarian cysts, chronic -POD 10 b/l nephrostomy tube placement 02/03/21 - to keep as o/p per Dr. Saha. Will need to be kept in until obstructions (removal of ovarian cysts) are dealt with per Dr. Saha. -S/p cystectomy and ileal conduit (3 years ago) -Orellana catheter in stoma was replaced in clinic on 01/31/[address] Everett, and is draining urine appropriately, and conduit appears normal on CT -Per urology, further intervention to be done in [place] for stomal stenosis and bilateral ovarian masses causing hydronephrosis -Prior hospitalist (Dr. Tan) spoke to patient's baseline urologist station detective in office of Dr. Graves (specialist urologist at [facility] following pt) - Dr. Schaefer. Agrees with bilateral nephrostomy tubes. Once patient recovered, patient can f/u as o/p. -Monitor daily BMP Epilepsy/tonic clonic seizure on 02/01/21 -No seizure activity seen since admission -EEG neg for seizure activity, reviewed with neurology -Low keppra level and now normal phenytoin level -Keppra to 500 mg BID -phenytoin 600 mg QD Primary progressive multiple sclerosis, wheelchair bound, neurogenic bladder - Follows with a neurologist in [place] at [facility]. - Had MRI in 01/2021 without acute changes - C/w amantadine Neurogenic bowel -Chronic COPD -Stable on RA -compensated Chronic hypomagnesemia -C/w mag ox supplement Hx of Hypertension -Stable Torticollis, pseudobulbar affect -Chronic and stable B12 deficiency -Supplement Migraine headaches -No complaints Obesity -Complicating care Anxiety, depression -Chronic Chronic insomnia -has QHS benzo. stopped nightly abilify. GERD -PPI BID-home med DVT px -SCD, pedro with recent occult + stool Resolved issues: Acute hypernatremia, hyperchloridemia likely 2/2 to nephrostomy tube o/p DISPOSITION: Currently inpatient status. Plan is for STR VS,Fishbone, I+O VS, Fishbone, I+O Laboratory Tests 02/13/21 11:45 02/14/21 06:09 Vital Signs Date Time Temp Pulse Resp B/P (MAP) Pulse Ox O2 Delivery O2 Flow Rate FiO2 02/14/21 06:00 99.0 99 18 107/69 (82) 92 Room Air I&O- Last 24 Hours up to 6 AM 02/14/21 06:00 Intake Total 350 ml Output Total 1410 ml Balance -1060 ml SANA HERNANDEZ MD Feb 14, 2021 08:27
[2021-02-14 14:00] VITALS: BP 121/78
[2021-02-14] MEDS: clonazePAM 1 MG TAB PO SCH (20:32)
[2021-02-14] MEDS: PHENYTOIN ER 100 MG CAP PO SCH (20:36)
[2021-02-14] MEDS: ASPIRIN 81MG ENTERIC TABLET PO SCH (20:38)
[2021-02-14] MEDS: SENNA 8.6 MG TAB (SENOKOT) PO SCH (20:39)
[2021-02-14] MEDS: ACETAMINOPHEN TAB 650MG DOSE (2X325MG) PO PRN (20:39)
[2021-02-14 22:00] VITALS: BP 119/79
[2021-02-15] MEDS: MEROPENEM INJ 1 GM in IV 1 EA IV SCH ×3 (03:11→20:25)
[2021-02-15] MEDS: LEVOTHYROXINE 50MCG TABLET (0.05MG) PO SCH (05:37)
[2021-02-15 06:00] VITALS: BP 102/64
[2021-02-15 07:03] LABS: HEMATOCRIT 30.8 % (36.0-47.0); HEMOGLOBIN 9.7 g/dl (12.0-15.5); MEAN CORPUSCULAR HEMOGLOBIN 27.5 pg (27.0-33.0); MEAN CORPUSCULAR HGB CONC 31.5 g/dl (32.0-36.5); MEAN CORPUSCULAR VOLUME 87.3 fl (80.0-96.0); PLATELET COUNT, AUTOMATED 302 10^3/uL (150-450); RED BLOOD COUNT 3.53 10^6/uL (4.00-5.40); WHITE BLOOD COUNT 7.3 10^3/uL (4.0-10.0)
[2021-02-15 07:18] LABS: CALCIUM LEVEL 8.8 MG/DL (8.5-10.1); CREATININE FOR GFR 1.06 MG/DL (0.55-1.30); GLOMERULAR FILTRATION RATE 57.7 (>51); POTASSIUM SERUM 3.8 MEQ/L (3.5-5.1)
[2021-02-15] MEDS: LACTULOSE 20 GM/30 ML SYRUP UD PO SCH (09:52)
[2021-02-15] MEDS: ATORVASTATIN 20 MG TAB PO SCH (09:53)
[2021-02-15] MEDS: ACYCLOVIR 200 MG CAPSULE PO SCH ×2 (09:53→20:26)
[2021-02-15] MEDS: PREGABALIN 100 MG CAP (LYRICA) PO SCH ×2 (09:53→20:27)
[2021-02-15] MEDS: levETIRAcetam 250MG TABLET (KEPPRA) PO SCH ×2 (09:53→20:26)
[2021-02-15] MEDS: DULoxetine 30 MG CAP (CYMBALTA) PO SCH ×2 (09:53→20:26)
[2021-02-15] MEDS: IRON SUCROSE 100 MG in NS 100 ML OVER 1 HR IV SCH (09:53)
[2021-02-15] MEDS: PANTOPRAZOLE 40MG TAB (PROTONIX) PO SCH ×2 (09:53→20:28)
[2021-02-15] MEDS: LACTOBACILLUS ACIDOPHILUS CAP (BACID) PO SCH ×2 (09:53→17:48)
[2021-02-15] MEDS: DOCUSATE SODIUM 100MG CAPSULE PO SCH ×2 (09:53→20:28)
[2021-02-15] MEDS: hydrOXYzine 25 MG TAB PO SCH ×2 (09:54→20:28)
[2021-02-15] MEDS: AMANTADINE 100MG TABLET PO SCH (09:54)
[2021-02-15] MEDS: MAGNESIUM OXIDE 400MG TAB (MAG-OX) PO SCH ×2 (09:54→20:28)
--- NOTE | 2021-02-15 10:18 | IPNPDOC ---
Text Note Date of Service The patient was seen on 02/15/21. NOTE SUBJECTIVE: -No chest pain, SOB, fevers, chills. OBJECTIVE: PHYSICAL EXAMINATION: VITAL SIGNS: please see below General: NAD, somnolent, AAOX3 HEENT: PERRLA, EOMI, sclerae clear Neck: supple, normal ROM, no JVD Respiratory: lungs CTAB, no wheeze, no rales, no crackles CVS: RRR, normal S1, S2, no murmurs BACK: bilateral nephrostomy tubes draining to bedside bag Abdo: Soft, nontender. Urostomy in place, no redness with clear yellow urine in bag. Extremities: no edema, pulses 2+ MSK: no joint deformities, normal ROM Neuro: 4/5 strength in all extremities, reflexes in tact. No sensory or motor loss. CN 2-12 intact Psych: Mood and affect appropriate LABORATORY DATA, IMAGING STUDIES, MICROBIOLOGY: Reviewed ASSESSMENT: 55 yo F with a hx of primary progressive MS, wheelchair bound, neurogenic bladder s/p cystectomy with diverting ileal conduit, bilateral hydronephrosis 2/2 bilateral obstructing ovarian cysts, recurrent UTI (most recently pseudomonas), COPD, HTN, CKD III, admitted for sepsis 2/2 pseudomonas UTI, as well as metabolic encephalopathy. PLAN: Pseudomonas UTI -WBC wnl, afebrile -On meropenem (Day 13) and plan is to continue for total of 14 days -ID consulted, if plan is for patient to go to rehab, can continue with IV abx through peripheral line. If patient to go home, will need mid-line with IV abx. Metabolic encephalopathy: Somnolence much improved today -improved with treatment of UTI. -Held baclofen, reduced atarax to 25mg from 50mg dosing, dc'd QHS abilify. -continue lyrica, duloxetine, QHS benzo, AEDs at current dosing. Acute on chronic CHRISTIAN possibly dilutional? vs. trauma from enema (no neelima blood) -Occult blood +. S/p 2 U PRBC 02/09/21 -H/H 9.8/30.7 -Discussed with Dr. Turpin, general surgery about occult blood +. At this time will agree to watch, not repeating CT scan. Low H/H could be 2/2 to bleed but also could be from worsening CHRISTIAN, dilution from fluids, recent enemas. -Last iron checked 12/2020 low at 7 -continue ASA -Venofer x 3 doses, ending today, then resume ferrous sulfate PO Acute on chronic physical deconditioning -PT: would benefit from continued rehab services -Discussed with family, ARU vs. STR. STR on Wednesday -C/w PT/OT Acute hyperkalemia 2/2 supplemented KCl: resolved -Stopped KCl BID -Daily labs Chronic kidney disease stage III 2/2 to obstruction from b/l hydronephrosis to ovarian cysts -Post-op day 10 for b/l nephrostomy tubes being placed - will need to be kept in until obstructions (removal of ovarian cysts) are dealt with per Dr. Saha. Was placed by IR, now c/b R neph tube reduction in output and worsening Cr. Called Dr. Lazaro, will see her this afternoon -Cr normalized -Encouraging fluids Q2H while awake -Daily labs, avoid nephrotoxic meds -Nephrostomy tubes placed by IR. Called Dr. Lazaro, will see her this afternoon. Will need f/u with Dr. Perales Q3 months for this at discharge. Poor PO intake likely 2/2 to acute illnesses above-improving -Encourage PO Constipation, chronic -Having daily BM currently -C/w regimen currently Bilateral hydronephrosis secondary to ovarian cysts, chronic -POD 10 b/l nephrostomy tube placement 02/03/21 - to keep as o/p per Dr. Saha. Will need to be kept in until obstructions (removal of ovarian cysts) are dealt with per Dr. Saha. -S/p cystectomy and ileal conduit (3 years ago) -Orellana catheter in stoma was replaced in clinic on 01/31/[address] Everett, and is draining urine appropriately, and conduit appears normal on CT -Per urology, further intervention to be done in [place] for stomal stenosis and bilateral ovarian masses causing hydronephrosis -Prior hospitalist (Dr. Tan) spoke to patient's baseline urologist turkey boner in office of Dr. Graves (specialist urologist at [facility] following pt) - Dr. Schaefer. Agrees with bilateral nephrostomy tubes. Once patient recovered, patient can f/u as o/p. -Monitor daily BMP Epilepsy/tonic clonic seizure on 02/01/21 -No seizure activity seen since admission -EEG neg for seizure activity, reviewed with neurology -Low keppra level and now normal phenytoin level -Keppra to 500 mg BID -phenytoin 600 mg QD Primary progressive multiple sclerosis, wheelchair bound, neurogenic bladder - Follows with a neurologist in [place] at [facility]. - Had MRI in 01/2021 without acute changes - C/w amantadine Neurogenic bowel -Chronic COPD -Stable on RA -compensated Chronic hypomagnesemia -C/w mag ox supplement Hx of Hypertension -Stable Torticollis, pseudobulbar affect -Chronic and stable B12 deficiency -Supplement Migraine headaches -No complaints Obesity -Complicating care Anxiety, depression -Chronic Chronic insomnia -has QHS benzo. stopped nightly abilify. GERD -PPI BID-home med DVT px -SCD, pedro with recent occult + stool Resolved issues: Acute hypernatremia, hyperchloridemia likely 2/2 to nephrostomy tube o/p DISPOSITION: Currently inpatient status. Plan is for STR on 02/17 VS,Fishbone, I+O VS, Fishbone, I+O Laboratory Tests 02/15/21 06:36 Vital Signs Date Time Temp Pulse Resp B/P (MAP) Pulse Ox O2 Delivery O2 Flow Rate FiO2 02/15/21 06:00 98.1 88 16 102/64 (77) 94 Room Air I&O- Last 24 Hours up to 6 AM 02/15/21 06:00 Intake Total 2350 ml Output Total 1295 ml Balance 1055 ml SANA HERNANDEZ MD Feb 15, 2021 09:27
[2021-02-15 14:00] VITALS: BP 111/68
[2021-02-15] MEDS: SENNA 8.6 MG TAB (SENOKOT) PO SCH (20:25)
[2021-02-15] MEDS: ASPIRIN 81MG ENTERIC TABLET PO SCH (20:29)
[2021-02-15] MEDS: clonazePAM 1 MG TAB PO SCH (20:31)
[2021-02-15] MEDS: PHENYTOIN ER 100 MG CAP PO SCH (20:31)
[2021-02-15] MEDS: ACETAMINOPHEN TAB 650MG DOSE (2X325MG) PO PRN (20:32)
[2021-02-15 22:00] VITALS: BP 116/72
[2021-02-16] MEDS: MEROPENEM INJ 1 GM in IV 1 EA IV SCH ×3 (03:37→20:07)
[2021-02-16] MEDS: LEVOTHYROXINE 50MCG TABLET (0.05MG) PO SCH (05:38)
[2021-02-16 06:00] VITALS: BP 102/67
[2021-02-16 07:27] LABS: HEMATOCRIT 30.6 % (36.0-47.0); HEMOGLOBIN 9.7 g/dl (12.0-15.5); MEAN CORPUSCULAR HEMOGLOBIN 27.3 pg (27.0-33.0); MEAN CORPUSCULAR HGB CONC 31.7 g/dl (32.0-36.5); MEAN CORPUSCULAR VOLUME 86.2 fl (80.0-96.0); PLATELET COUNT, AUTOMATED 290 10^3/uL (150-450); RED BLOOD COUNT 3.55 10^6/uL (4.00-5.40); WHITE BLOOD COUNT 5.9 10^3/uL (4.0-10.0)
[2021-02-16 07:48] LABS: BLOOD UREA NITROGEN 14 MG/DL (7-18); CALCIUM LEVEL 8.5 MG/DL (8.5-10.1); CARBON DIOXIDE LEVEL 29 MEQ/L (21-32); CHLORIDE LEVEL 108 MEQ/L (98-107); CREATININE FOR GFR 0.99 MG/DL (0.55-1.30); GLOMERULAR FILTRATION RATE > 60.0 (>51); GLUCOSE, FASTING 79 MG/DL (70-100); POTASSIUM SERUM 3.7 MEQ/L (3.5-5.1); SODIUM LEVEL 141 MEQ/L (136-145)
[2021-02-16] MEDS: ACYCLOVIR 200 MG CAPSULE PO SCH ×2 (09:14→20:08)
[2021-02-16] MEDS: levETIRAcetam 250MG TABLET (KEPPRA) PO SCH ×2 (09:14→20:10)
[2021-02-16] MEDS: DOCUSATE SODIUM 100MG CAPSULE PO SCH ×2 (09:14→20:07)
[2021-02-16] MEDS: PANTOPRAZOLE 40MG TAB (PROTONIX) PO SCH ×2 (09:15→20:12)
[2021-02-16] MEDS: MAGNESIUM OXIDE 400MG TAB (MAG-OX) PO SCH ×2 (09:15→20:09)
[2021-02-16] MEDS: DULoxetine 30 MG CAP (CYMBALTA) PO SCH ×2 (09:16→20:08)
[2021-02-16] MEDS: LACTOBACILLUS ACIDOPHILUS CAP (BACID) PO SCH ×2 (09:16→18:27)
[2021-02-16] MEDS: PREGABALIN 100 MG CAP (LYRICA) PO SCH ×2 (09:16→20:09)
[2021-02-16] MEDS: ATORVASTATIN 20 MG TAB PO SCH (09:17)
[2021-02-16] MEDS: AMANTADINE 100MG TABLET PO SCH (09:17)
[2021-02-16] MEDS: hydrOXYzine 25 MG TAB PO SCH ×2 (09:17→20:12)
[2021-02-16] MEDS: LACTULOSE 20 GM/30 ML SYRUP UD PO SCH (09:20)
--- NOTE | 2021-02-16 09:35 | IPNPDOC ---
Text Note Date of Service The patient was seen on 02/16/21. NOTE SUBJECTIVE: -No chest pain, SOB, fevers, chills. OBJECTIVE: PHYSICAL EXAMINATION: VITAL SIGNS: please see below General: NAD, somnolent, AAOX3 HEENT: PERRLA, EOMI, sclerae clear Neck: supple, normal ROM, no JVD Respiratory: lungs CTAB, no wheeze, no rales, no crackles CVS: RRR, normal S1, S2, no murmurs BACK: bilateral nephrostomy tubes draining to bedside bag Abdo: Soft, nontender. Urostomy in place, no redness with clear yellow urine in bag. Extremities: no edema, pulses 2+ MSK: no joint deformities, normal ROM Neuro: 4/5 strength in all extremities, reflexes in tact. No sensory or motor loss. CN 2-12 intact Psych: Mood and affect appropriate LABORATORY DATA, IMAGING STUDIES, MICROBIOLOGY: Reviewed ASSESSMENT: 55 yo F with a hx of primary progressive MS, wheelchair bound, neurogenic bladder s/p cystectomy with diverting ileal conduit, bilateral hydronephrosis 2/2 bilateral obstructing ovarian cysts, recurrent UTI (most recently pseudomonas), COPD, HTN, CKD III, admitted for sepsis 2/2 pseudomonas UTI, as well as metabolic encephalopathy. PLAN: Pseudomonas UTI -WBC wnl, afebrile -On meropenem (Day 14 of 14) -ID consulted, if plan is for patient to go to rehab, can continue with IV abx through peripheral line. If patient to go home, will need mid-line with IV abx. Metabolic encephalopathy: improved -improved with treatment of UTI. -Held baclofen, reduced atarax to 25mg from 50mg dosing, dc'd QHS abilify. -continue lyrica, duloxetine, QHS benzo, AEDs at current dosing. Acute on chronic CHRISTIAN possibly dilutional? vs. trauma from enema (no neelima blood) -Occult blood +. S/p 2 U PRBC 02/09/21 -H/H 9.8/30.7 -Discussed with Dr. Turpin, general surgery about occult blood +. At this time will agree to watch, not repeating CT scan. Low H/H could be 2/2 to bleed but also could be from worsening CHRISTIAN, dilution from fluids, recent enemas. -Last iron checked 12/2020 low at 7 -continue ASA -Venofer x 3 doses, ending today, then resume ferrous sulfate PO Acute on chronic physical deconditioning -PT: would benefit from continued rehab services -Discussed with family, ARU vs. STR. STR on Wednesday -C/w PT/OT Acute hyperkalemia 2/2 supplemented KCl: resolved -Stopped KCl BID -Daily labs Chronic kidney disease stage III 2/2 to obstruction from b/l hydronephrosis to ovarian cysts -Post-op day 10 for b/l nephrostomy tubes being placed - will need to be kept in until obstructions (removal of ovarian cysts) are dealt with per Dr. Robert pinon. Was placed by IR, now c/b R neph tube reduction in output and worsening Cr. Called Dr. Lazaro, will see her this afternoon -Cr normalized -Encouraging fluids Q2H while awake -Daily labs, avoid nephrotoxic meds -Nephrostomy tubes placed by IR. Called Dr. Lazaro, will see her this afterno on. Will need f/u with Dr. Perales Q3 months for this at discharge. Poor PO intake likely 2/2 to acute illnesses above-improving -Encourage PO Constipation, chronic -Having daily BM currently -C/w regimen currently Bilateral hydronephrosis secondary to ovarian cysts, chronic -POD 13 b/l nephrostomy tube placement 02/03/21 - to keep as o/p per Dr. Saha. Will need to be kept in until obstructions (removal of ovarian cysts) are dealt with per Dr. Saha. -S/p cystectomy and ileal conduit (3 years ago) -Orellana catheter in stoma was replaced in clinic on 01/31/[address] Everett, and is draining urine appropriately, and conduit appears normal on CT -Per urology, further intervention to be done in [place] for stomal stenosis and bilateral ovarian masses causing hydronephrosis -Prior hospitalist (Dr. Tan) spoke to patient's baseline urologist financial professional in office of Dr. Garves (specialist urologist at [facility] following pt) - Dr. Schaefer. Agrees with bilateral nephrostomy tubes. Once patient recovered, patient can f/u as o/p. -Monitor daily BMP Epilepsy/tonic clonic seizure on 02/01/21 -No seizure activity seen since admission -EEG neg for seizure activity, reviewed with neurology -Low keppra level and now normal phenytoin level -Keppra to 500 mg BID -phenytoin 600 mg QD Primary progressive multiple sclerosis, wheelchair bound, neurogenic bladder - Follows with a neurologist in [place] at [facility]. - Had MRI in 01/2021 without acute changes - C/w amantadine Neurogenic bowel -Chronic COPD -Stable on RA -compensated Chronic hypomagnesemia -C/w mag ox supplement Hx of Hypertension -Stable Torticollis, pseudobulbar affect -Chronic and stable B12 deficiency -Supplement Migraine headaches -No complaints Obesity -Complicating care Anxiety, depression -Chronic Chronic insomnia -has QHS benzo. stopped nightly abilify. GERD -PPI BID-home med DVT px -SCD, pedro with recent occult + stool Resolved issues: Acute hypernatremia, hyperchloridemia likely 2/2 to nephrostomy tube o/p DISPOSITION: Currently inpatient status. Plan is for STR on 02/17 VS,Fishbone, I+O VS, Fishbone, I+O Laboratory Tests 02/16/21 06:48 Vital Signs Date Time Temp Pulse Resp B/P (MAP) Pulse Ox O2 Delivery O2 Flow Rate FiO2 02/16/21 06:00 96.6 88 16 102/67 (79) 96 Room Air I&O- Last 24 Hours up to 6 AM 02/16/21 06:00 Intake Total 1540 ml Output Total 2125 ml Balance -585 ml SANA HERNANDEZ MD Feb 16, 2021 07:59
[2021-02-16 14:00] VITALS: BP 123/78
--- NOTE | 2021-02-16 18:20 | IPN ---
PROGRESS NOTE DATE: 02/14/2021 SUBJECTIVE: Elise seems to be doing fairly well. She had some episodes of more sleepiness and lethargy, but otherwise she is alert and oriented. Her medications were changed by the hospitalist team. She was given more pain medication and less psychiatric drugs, that may make her a little more lethargic. She has had no fevers or chills. No nausea, vomiting or diarrhea. Her nephrostomy tubes are both functioning well. MEDICATIONS: Meropenem 1 gm IV q 8 hours, currently day #13 out of 14. LABORATORY DATA: White count 8.5, hemoglobin 9.6, hematocrit 30.7, platelets 314. Sodium 140, potassium 4.1, chloride 108, bicarbonate 28, BUN 19, creatinine 19.1, glucose 78, calcium 8.3, C-reactive protein 8.55. PHYSICAL EXAMINATION: Heart: Normal S1, S2. No murmurs. Lungs are clear, no wheezes, rales or rhonchi. Abdomen: Obese, soft, nontender. Bilateral nephrostomy tubes, the left one has more mucous, the right has clear urine and she has a ileal conduit with a Orellana and clear urine. IMPRESSION: 1. Pseudomonas pyelonephritis on IV meropenem, currently day #13 out of 14. The patient to finish course of antibiotics tomorrow. 2. Multiple sclerosis requiring rehabilitation. The patient will be going to [facility] for some rehabilitation. 3. Bilateral hydronephrosis with bilateral large ovarian cyst. This will be addressed at a later time as an outpatient. 4. Chronic kidney disease has improved, that was due to obstruction and hydronephrosis, status post bilateral nephrostomy tube. PLAN: Discontinue IV meropenem on 02/16, which will be 14 days of therapy. Infectious disease signing off. Thank you for the consultation.
[2021-02-16] MEDS: ASPIRIN 81MG ENTERIC TABLET PO SCH (20:11)
[2021-02-16] MEDS: SENNA 8.6 MG TAB (SENOKOT) PO SCH (20:11)
[2021-02-16] MEDS: clonazePAM 1 MG TAB PO SCH (20:12)
[2021-02-16] MEDS: PHENYTOIN ER 100 MG CAP PO SCH (20:15)
[2021-02-16] MEDS: ACETAMINOPHEN TAB 650MG DOSE (2X325MG) PO PRN (20:16)
[2021-02-16 22:00] VITALS: BP_SYST 124; BP_SYST 134; BP_DIAS 66; BP_DIAS 79
[2021-02-17] MEDS: LEVOTHYROXINE 50MCG TABLET (0.05MG) PO SCH (05:44)
[2021-02-17 06:00] VITALS: BP 117/77
[2021-02-17 06:57] LABS: HEMATOCRIT 30.7 % (36.0-47.0); HEMOGLOBIN 9.8 g/dl (12.0-15.5); MEAN CORPUSCULAR HEMOGLOBIN 27.6 pg (27.0-33.0); MEAN CORPUSCULAR HGB CONC 31.9 g/dl (32.0-36.5); MEAN CORPUSCULAR VOLUME 86.5 fl (80.0-96.0); PLATELET COUNT, AUTOMATED 282 10^3/uL (150-450); RED BLOOD COUNT 3.55 10^6/uL (4.00-5.40); WHITE BLOOD COUNT 7.2 10^3/uL (4.0-10.0)
[2021-02-17 07:08] LABS: BLOOD UREA NITROGEN 13 MG/DL (7-18); CALCIUM LEVEL 8.4 MG/DL (8.5-10.1); CARBON DIOXIDE LEVEL 28 MEQ/L (21-32); CHLORIDE LEVEL 109 MEQ/L (98-107); CREATININE FOR GFR 0.97 MG/DL (0.55-1.30); GLOMERULAR FILTRATION RATE > 60.0 (>51); GLUCOSE, FASTING 83 MG/DL (70-100); POTASSIUM SERUM 3.8 MEQ/L (3.5-5.1); SODIUM LEVEL 142 MEQ/L (136-145)
[2021-02-17] MEDS ORDERED: RISATAB3 PO (08:29)
[2021-02-17] MEDS ORDERED: HYDR-3363 PO (08:29)
[2021-02-17] MEDS ORDERED: PHEN300C PO (08:29)
[2021-02-17] MEDS ORDERED: LACT20EL PO (08:29)
--- NOTE | 2021-02-17 08:37 | DS.PDOC ---
Discharge Summary General Date of Admission Feb 02, 2021 at 17:31 Date of Discharge 02/17/2021 Attending Physician: SANA HERNANDEZ MD Discharge Summary PROCEDURES PERFORMED DURING STAY: Nephrostomy placement ADMITTING DIAGNOSES: TERRELL Hyperkalemia Metabolic encephalopathy UTI DISCHARGE DIAGNOSES: Pseudomonas UTI Primary progressive multiple sclerosis, wheelchair bound Neurogenic bladder with recurrent urinary tract infection Neurogenic bowel Bilateral hydronephrosis s/p cystectomy with chronic diverting ileal conduit Worsening bilateral hydronephrosis 2/2 bilateral obstructing ovarian cysts now s/p bilateral nephrostomies COPD Hypertension Torticollis, pseudobulbar affect Peripheral neuropathy TERRELL on chronic kidney disease stage III Chronic migraines Morbid Obesity Anxiety Depression Chronic insomnia Epilepsy Microcytic anemia Vitamin B12 deficiency Hepatic steatosis COMPLICATIONS/CHIEF COMPLAINT: Acute Renal Failure, Hyperkalemia, Metabolic Encep. HISTORY OF PRESENT ILLNESS: 55 yo F with a hx of primary progressive MS, wheelchair bound, neurogenic bladd er s/p cystectomy with diverting ileal conduit, bilateral hydronephrosis 2/2 bilateral obstructing ovarian masses, recurrent UTI (most recently pseudomonas), COPD, HTN, CKD III, who was found to be unresponsive on floor of their home by her . Patient was feeling well prior to this, and her only complaint was of abdominal discomfort. She had seen her urology Dr. Everett in clinic on 01/03/21. Per , she has not had any PO intake since 5 om on 02/01/21. He reported her having a seizure with tonic clonic activity during the time she became unresponsive. Ambulance was called at noon today, and on arrival patient was obtunded, GCS 8. She was saturating well as was evidenced by two separate ABGs which showed no acidosis. HOSPITAL COURSE: Vitals were wnl and initial evaluation showed WBC 15.3. hgb 9.4. Na+ 142. K+ 6.7. BUN 40. Cr 4.39. ALP 325. Trop < 0.02. TSH 0.975. FT4 1.14. UA+ nitrate, LE, pyuria, WBCs. Urine and blood cultures sent. She was given meropenem based on prior urine C&S positive for pseudomonas and sensitive to meropenem and was admitted to medicine to the intensive care unit for continued management of sepsis secondary to urinary tract infection as well as tonic-clonic seizure with history of seizure disorder. To address the bilateral hydronephrosis that she has continually had over the past month with each of her three hospital admissions, interventional radiology performed a bilateral nephrostomy tube placement. The admitting hospitalist physician had discussed transferring the patient to [place] for further management but the potential receiving physician did not feel the patient would be safe in transit without being intubated. In terms of her tonic-clonic seizure in the setting of a seizure disorder, neurology was contacted and they recommended changing her home outpatient Keppra 500 mg b.i.d. to 100 mg daily until her renal function improved until it was restored back to 500mg BID, while low dilantin levels also prompted to 200 mg t.i.d. from the 400mg QHS that the reported giving her. As far as the acute renal failure on CKD stage 3, nephrology was consulted and it improved after fluid resuscitation and nephrostomy placement and they signed off. ID was also consulted given the history of frequent UTIs with resistant organisms and some drug allergies and recommended a 14 day course of meropenem that she completeD on 02/16/2021. Metabolic encephalopathy greatly improved with treatment of her UTI and with hold of some of her sedating psychotropic medications. She was deemed appropriate for discharge to [facility] where she is now being discharged to [facility]. DISCHARGE MEDICATIONS: Please see below. ALLERGIES: Please see below. PHYSICAL EXAMINATION ON DISCHARGE: VITAL SIGNS: Please see below. General: NAD, AAOX3 HEENT: PERRLA, EOMI, sclerae clear Neck: supple, normal ROM, no JVD Respiratory: lungs CTAB, no wheeze, no rales, no crackles CVS: RRR, normal S1, S2, no murmurs BACK: bilateral nephrostomy tubes draining to bedside bag Abdo: Soft, nontender. Urostomy in place, no redness with clear yellow urine in bag. Extremities: no edema, pulses 2+ MSK: no joint deformities, normal ROM Neuro: 4/5 strength in all extremities, reflexes in tact. No sensory or motor loss. CN 2-12 intact Psych: Mood and affect appropriate LABORATORY DATA: Please see below. IMAGING: Noncon head CT: Age-related atrophy and microvascular ischemic changes are appreciated. The ventricles and sulci are symmetric. Chirinos-white differentiation is maintained. There is no evidence for acute intracranial hemorrhage, mass/mass effect, pathology or infarction. No extra-axial fluid collection. Calvarium is intact. Paranasal sinuses and mastoid air cells are clear. IMPRESSION: Age related atrophy and microvascular ischemic changes. No acute intracranial hemorrhage, infarction, or mass/mass effect Admission CXR: Examination is limited by portable technique, underpenetration and poor inspiratory effort. Mediastinum and cardiac silhouette are relatively stable. [id number] again identified with tip in the right atrium. Subtle left lower lobe opacity cannot be excluded. No effusion. No pneumothorax. Skeletal structures are intact. IMPRESSION: Significantly limited examination. Cannot exclude small subtle left lower lobe infiltrate. Admission CT head without contrast: No acute intracranial abnormalities. Admission CT chest without contrast: Bilateral lung allison are relatively well aerated. Very subtle right basilar airspace disease cannot be excluded. No further significant consolidation. No effusion. No pneumothorax. Tracheobronchial tree is patent. Mediastinum demonstrates relatively normal thoracic aorta, pulmonary vasculature, and heart/pericardium. No adenopathy. [id number] identified with tip in the SVC. Nasogastric tube extends into the stomach. Surrounding musculoskeletal structures are intact. IMPRESSION: 1. Very subtle right basilar airspace disease may reflect an acute or resolv ing focus of infiltrate/atelectasis. 2. No further acute mediastinal or pleuroparenchymal process appreciated. CT A/P: Liver, spleen, pancreas, gallbladder, and bilateral adrenal glands are relativ jenni stable/normal for noncontrast evaluation. Patient is again noted to be status post hysterectomy and bladder resection with stable bilateral perinephric stranding and bilateral hydroureteronephrosis extending toward a diverting ileal conduit and ileostomy via the right anterior abdominal wall. These findings are essentially unchanged compared to 01/16/2021. The distal ureters are relatively inseparable from large stable bilateral ovarian cystic lesions (right greater than left). The enteric system is without obstruction or acute inflammatory process. No ascites. No free air. No obvious intraperitoneal or retroperitoneal adenopathy. No obvious acute abdominopelvic mass lesion or drainable collection/abscess. Musculoskeletal structures demonstrate age-related changes without acute osseous abnormality. IMPRESSION: 1. Stable bilateral perinephric stranding and hydroureteronephrosis extending to a diverting ileal conduit and urostomy via the right anterior abdominal wall. These findings are unchanged as compared to 01/16/2021. 2. Stable complex ovarian cysts (right greater than left) are again identified and adjacent/inseparable from the distal bilateral ureters. 3. No new acute abdominopelvic pathology or process appreciated. CXR 02/02: Catheter extends into the SVC/right atrium. Nasogastric tube courses below the left hemidiaphragm in satisfactory position. The mediastinum and cardiac silhouette are stable and within normal limits for portable technique. The lung allison are clear without acute consolidation, effusion, or pneumothorax. Skeletal structures are intact. IMPRESSION: Nasogastric tube in satisfactory position. No acute cardiopulmonary process appreciated. 02/11 Renal US: FINDINGS: Urinary bladder is not seen consistent with surgical absence.. Renal cortical echogenicity pattern is normal bilaterally and contours are smooth. There is moderate bilateral hydronephrosis. Scan quality is inhibited by patient's inability to position in decubitus position and a suspend respiration.. The right kidney measures 10.3 x 5.2 x 4.6 cm. Left renal dimensions are 11.6 x 4.8 x 5.1 cm. The percutaneous nephrostomy catheters are not well seen. A catheter echo focus is believed to be visible in the renal pelvis on the left. IMPRESSION: Moderate bilateral hydronephrosis.. PROGNOSIS: Fair, high risk for readmission given history of recurrent UTIs with bilateral hydronephrosis and conduits ACTIVITY: As tolerated. DIET: regular DISCHARGE PLAN: STR DISPOSITION: SSV DISCHARGE INSTRUCTIONS: SSV ITEMS TO FOLLOWUP ON ON OUTPATIENT: Bilateral hydronephrosis with recent bilateral neph tubes and ileal conduit in place Frequent UTIs DISCHARGE CONDITION: Stable. TIME SPENT ON DISCHARGE: 65 minutes. Vital Signs/I&Os Vital Signs Date Time Temp Pulse Resp B/P (MAP) Pulse Ox O2 Delivery O2 Flow Rate FiO2 02/14/21 06:00 99.0 99 18 107/69 (82) 92 Room Air I&O- Last 24 Hours up to 6 AM 02/14/21 06:00 Intake Total 350 ml Output Total 1410 ml Balance -1060 ml Laboratory Data Labs 24H Laboratory Tests 2 02/13/21 11:45: Nucleated Red Blood Cells % (auto) 0.0, Anion Gap 8, Glomerular Filtration Rate 55.3, Calcium Level 8.8 02/13/21 16:46: Bedside Glucose (Misc Panel) 115H 02/14/21 05:57: Bedside Glucose (Misc Panel) 82 02/14/21 06:09: Nucleated Red Blood Cells % (auto) 0.0, Anion Gap 4L, Glomerular Filtration Rate 55.3, Calcium Level 8.3L, C-Reactive Protein, Quantitative 8.55H CBC/BMP Laboratory Tests 02/13/21 11:45 02/14/21 06:09 FSBS Laboratory Tests Test 02/13/21 16:46 02/14/21 05:57 Range/Units Bedside Glucose (Misc Panel) 115 82 70-105 MG/DL Microbiology Microbiology 02/08/21 Stool Occult Blood (VANDANA) - Final, Complete Discharge Medications Scheduled Acyclovir (Acyclovir) 400 Mg Tab, 400 MG PO BID, (Reported) Amantadine HCl (Amantadine) 100 Mg Tablet, 100 MG PO BID, (Reported) Aspirin (Ecotrin) 81 Mg Tablet.dr, 81 MG PO QHS, (Reported) Atorvastatin Calcium (Atorvastatin Calcium) 40 Mg Tablet, 40 MG PO DAILY, (Reported) Clonazepam (Clonazepam) 1 Mg Tab, 1 MG PO QHS, (Reported) Duloxetine Hcl (Duloxetine HCl) 60 Mg Capsule.dr, 60 MG PO BID, (Reported) Ergocalciferol (Vitamin D2) (Vitamin D2) 50,000 Units Cap, 50,000 UNITS PO 1XWK, (Reported) FRIDAYS Fosfomycin Tromethamine (Fosfomycin Tromethamine) 3 Gram Packet, 3 GM PO QWEEK, (Reported) FRIDAYS Hydroxyzine HCl (Hydroxyzine HCl) 25 Mg Tablet, 1 TAB PO BID for anxiety L.acidoph/L.bulg/B.bif/S.therm (Rosie-Bid Caplet) 1 Each Tablet, 1 EA PO BIDWM Lactulose (Lactulose) 10 Gm/15 Ml Solution, 30 ML PO DAILY Levetiracetam (Keppra) 500 Mg Tablet, 500 MG PO BID, (Reported) Levothyroxine Sodium (Levothyroxine Sodium) 50 Mcg Tablet, 50 MCG PO QAM, (Reported) 30 MINUTES BEFORE BREAKFAST Magnesium Oxide (Magnesium) 500 Mg Capsule, 500 MG PO QHS, (Reported) Melatonin (Melatonin) 10 Mg Capsule, 10 MG PO QHS, (Reported) Meloxicam (Meloxicam) 15 Mg Tablet, 15 MG PO DAILY, (Reported) Pantoprazole Sodium (Pantoprazole Sodium) 40 Mg Tablet.dr, 40 MG PO BID, (Reported) Phenytoin Sodium Extended (Phenytek) 300 Mg Capsule, 2 CAP PO QHS Potassium Chloride (Potassium Chloride) 10 Meq Tab.er.prt, 10 MEQ PO DAILY, (Reported) Pregabalin (Lyrica) 300 Mg Capsule, 300 MG PO BID, (Reported) Sennosides/Docusate Sodium (Senokot-S Tablet) 1 Each Tablet, 1 TAB PO QHS, (Reported) Scheduled PRN Albuterol Sulfate (Ventolin Hfa) 108 Mcg/Act Aer, 2 PUFFS INH Q4H PRN for SHORTNESS OF BREATH, (Reported) Mometasone Furoate (Asmanex Hfa) 100 Mcg/Act Hfa.aer.ad, 1 PUFF INH BID PRN for ASTHMA SYMPTOMS, (Reported) Promethazine HCl (Promethazine HCl) 25 Mg Tablet, 25 MG PO Q4H PRN for NAUSEA OR VOMITING, (Reported) FOR NAUSEA RELATED TO MIGRAINES Allergies Coded Allergies: Cephalosporins (Verified Allergy, Intermediate, rash, 12/27/19) Sulfa (Sulfonamide Antibiotics) (Verified Allergy, Mild, itchy, 12/27/19) oxycodone (Verified Allergy, Mild, itchy, 12/27/19) hydrocodone (Verified Adverse Reaction, Intermediate, chest pain, 12/27/19) SANA HERNANDEZ MD Feb 14, 2021 08:25
[2021-02-17] MEDS: DULoxetine 30 MG CAP (CYMBALTA) PO SCH (09:22)
[2021-02-17] MEDS: LACTULOSE 20 GM/30 ML SYRUP UD PO SCH (09:22)
[2021-02-17] MEDS: PANTOPRAZOLE 40MG TAB (PROTONIX) PO SCH (09:22)
[2021-02-17] MEDS: PREGABALIN 100 MG CAP (LYRICA) PO SCH (09:22)
[2021-02-17] MEDS: hydrOXYzine 25 MG TAB PO SCH (09:22)
[2021-02-17] MEDS: ACYCLOVIR 200 MG CAPSULE PO SCH (09:22)
[2021-02-17] MEDS: AMANTADINE 100MG TABLET PO SCH (09:22)
[2021-02-17] MEDS: levETIRAcetam 250MG TABLET (KEPPRA) PO SCH (09:22)
[2021-02-17] MEDS: DOCUSATE SODIUM 100MG CAPSULE PO SCH (09:23)
[2021-02-17] MEDS: LACTOBACILLUS ACIDOPHILUS CAP (BACID) PO SCH (09:23)
[2021-02-17] MEDS: ATORVASTATIN 20 MG TAB PO SCH (09:23)
[2021-02-17] MEDS: MAGNESIUM OXIDE 400MG TAB (MAG-OX) PO SCH (09:23)
== END 2021-02-17 13:04 | DRG 871 ==
LOC: M ED 13:31 → EDBD 13:31 → M ED INP 17:31 → ENRESERV 18:06 → M ICU 19:07 → M PCU 02-04 14:29 → M MSPAV 02-08 14:11
PROVIDERS: ADMIT Family Medicine; ATTEND Internal Medicine
PROC: 0T9030Z Drainage of Right Kidney with Drainage Device, Percutaneous Approach (ICD-10-PCS; 2021-02-03)
PROC: 0T9130Z Drainage of Left Kidney with Drainage Device, Percutaneous Approach (ICD-10-PCS; principal; 2021-02-03 12:30)
PROC: BT43ZZZ Ultrasonography of Bilateral Kidneys (ICD-10-PCS; 2021-02-12)
PROC: BT48ZZZ Ultrasonography of Bilateral Ureters (ICD-10-PCS; 2021-02-12)
DX: A41.52 Sepsis due to Pseudomonas (principal); G93.41 Metabolic encephalopathy; N17.9 Acute kidney failure, unspecified; N39.0 Urinary tract infection, site not specified; N13.30 Unspecified hydronephrosis; Z94.84 Stem cells transplant status; E87.0 Hyperosmolality and hypernatremia; N31.9 Neuromuscular dysfunction of bladder, unspecified; R65.20 Severe sepsis without septic shock; G35 Multiple sclerosis; J44.9 Chronic obstructive pulmonary disease, unspecified; I12.9 Hypertensive chronic kidney disease with stage 1 through stage 4 chronic kidney disease, or unspecified chronic kidney disease; N18.32 Chronic kidney disease, stage 3b; Z96.0 Presence of urogenital implants; Z85.828 Personal history of other malignant neoplasm of skin; G40.409 Other generalized epilepsy and epileptic syndromes, not intractable, without status epilepticus; D50.9 Iron deficiency anemia, unspecified; F48.2 Pseudobulbar affect; N83.202 Unspecified ovarian cyst, left side; N99.524 Stenosis of incontinent stoma of urinary tract; G43.709 Chronic migraine without aura, not intractable, without status migrainosus; M43.6 Torticollis; N83.201 Unspecified ovarian cyst, right side; K59.09 Other constipation; K76.0 Fatty (change of) liver, not elsewhere classified; E83.42 Hypomagnesemia; E53.8 Deficiency of other specified B group vitamins; E86.0 Dehydration; E87.6 Hypokalemia; E66.9 Obesity, unspecified; R63.0 Anorexia; Z68.39 Body mass index [BMI] 39.0-39.9, adult; F32.9 Major depressive disorder, single episode, unspecified; F41.9 Anxiety disorder, unspecified; G47.00 Insomnia, unspecified; Z79.82 Long term (current) use of aspirin; Z79.899 Other long term (current) drug therapy; Z88.1 Allergy status to other antibiotic agents; Z99.3 Dependence on wheelchair; Z88.2 Allergy status to sulfonamides; Z88.5 Allergy status to narcotic agent; Z95.828 Presence of other vascular implants and grafts; Z87.891 Personal history of nicotine dependence

== ENCOUNTER → 2021-02-25 | Outpatient (POV) | payer MEDICARE, BC, OTHER, MEDICAID ==
[~2021-02-25] MED LIST changes: +HYDR-3363 PO; +PHEN300C PO; +RISATAB3 PO
--- NOTE | 2021-02-28 10:04 | IRPN ---
[facility] IR Progress Note IR Progress Note DATE: Feb 25, 2021 Patient agreed to this telephone follow up. I spent 10 minutes reviewing patients records and talking to the patient. FOLLOW-UP: Patient with cystectomy, ilial conduit and bilateral ureteral compression presented to the hospital in urosepsis and severe renal failure. She was treated with bilateral nephrostomy catheters. Patient is now in rehab and alert and oriented. She is coherent and able to hold a conversation. She states the nephrostomy catheters are draining well and there is no discomfort at the site. The catheters are being flushed daily and she expects to be back in her home in a week. She will have home health. ON EXAMINATION: No video on patient side. LABS: 02/25/21 Hgb 11.7 HCT 38.3 WBC 10 PLT 301 02/26/21 Na 143 K 5.1 BUN 14 Cr 1.28 GFR 46.4 ( 14 at presentation). IMPRESSION: Urosepsis and renal failure resolved status post bilateral nephrostomy insertion. Patient will be bought back in 6 weeks for internalization to retrograde bilateral uretero ilial conduit stent. Thank you for this referral cc Dr. Blandon cc Dr. Saha Allergies Coded Allergies: Cephalosporins (Verified Allergy, Intermediate, rash, 12/27/19) Sulfa (Sulfonamide Antibiotics) (Verified Allergy, Mild, itchy, 12/27/19) oxycodone (Verified Allergy, Mild, itchy, 12/27/19) hydrocodone (Verified Adverse Reaction, Intermediate, chest pain, 12/27/19) MAICOL CARDOZO MD Feb 28, 2021 10:04
== END ==
LOC: M TMIRPOV 08:01
PROVIDERS: ATTEND Radiology Diagnostic Radiology
DX: Z09 Encounter for follow-up examination after completed treatment for conditions other than malignant neoplasm (principal); Z95.828 Presence of other vascular implants and grafts

== ENCOUNTER → 2021-02-25 | Outpatient (REF) ==
[2021-02-25 10:17] LABS: HEMATOCRIT 38.3 % (36.0-47.0); HEMOGLOBIN 11.7 g/dl (12.0-15.5); MEAN CORPUSCULAR HEMOGLOBIN 27.2 pg (27.0-33.0); MEAN CORPUSCULAR HGB CONC 30.5 g/dl (32.0-36.5); MEAN CORPUSCULAR VOLUME 89.1 fl (80.0-96.0); PLATELET COUNT, AUTOMATED 301 10^3/uL (150-450)
[2021-02-25 10:30] LABS: CALCIUM LEVEL 9.1 MG/DL (8.5-10.1); CREATININE FOR GFR 1.42 MG/DL (0.55-1.30); GLOMERULAR FILTRATION RATE 41.2 (>51); POTASSIUM SERUM 5.2 MEQ/L (3.5-5.1)
== END ==
PROVIDERS: ATTEND Physician Assistant
DX: E87.5 Hyperkalemia (principal)

== ENCOUNTER → 2021-02-26 | Outpatient (REF) ==
[2021-02-26 10:24] LABS: CALCIUM LEVEL 8.7 MG/DL (8.5-10.1); CREATININE FOR GFR 1.28 MG/DL (0.55-1.30); GLOMERULAR FILTRATION RATE 46.4 (>51); POTASSIUM SERUM 5.1 MEQ/L (3.5-5.1)
== END ==
PROVIDERS: ATTEND Internal Medicine
DX: E87.5 Hyperkalemia (principal)

== ENCOUNTER → 2021-03-04 | Outpatient (REF) ==
[2021-03-04 09:28] LABS: HEMATOCRIT 36.2 % (36.0-47.0); HEMOGLOBIN 11.3 g/dl (12.0-15.5); MEAN CORPUSCULAR HEMOGLOBIN 27.6 pg (27.0-33.0); MEAN CORPUSCULAR HGB CONC 31.2 g/dl (32.0-36.5); MEAN CORPUSCULAR VOLUME 88.5 fl (80.0-96.0); PLATELET COUNT, AUTOMATED 257 10^3/uL (150-450); RED BLOOD COUNT 4.09 10^6/uL (4.00-5.40); WHITE BLOOD COUNT 6.7 10^3/uL (4.0-10.0)
[2021-03-04 09:51] LABS: CALCIUM LEVEL 8.7 MG/DL (8.5-10.1); CREATININE FOR GFR 1.36 MG/DL (0.55-1.30); GLOMERULAR FILTRATION RATE 43.3 (>51); PHENYTOIN (DILANTIN) 14.9 UG/ML (10.0-20.0); POTASSIUM SERUM 4.5 MEQ/L (3.5-5.1)
== END ==
PROVIDERS: ATTEND Physician Assistant
DX: R56.9 Unspecified convulsions (principal)

== ENCOUNTER → 2021-03-20 | Outpatient (CLI) | payer MEDICARE, BC, MEDICAID ==
[~2021-03-20] MED LIST changes: +ACYC1TAB PO
--- NOTE | 2021-03-20 14:56 | DEXAMM ---
INDICATION: MS,S/P AUTOLOGOUS,SURVEILLANCE FOR OSTEOPOROSIS. COMPARISON: None. TECHNIQUE: Bone density was measured using dual-energy x-ray absorptionmetry (DEXA). FINDINGS: AP SPINE L1-L4 BMD 0.978 g/cm2 Young Adult T-Score -1.7 Age Matched Z-Score -1.1. LT FEMUR, TOTAL BMD 0.717 g/cm2 Young Adult T-Score -2.3 Age Matched Z-Score -1.7. LT NECK BMD 0.740 g/cm2 Young Adult T-Score -2.1 Age Matched Z-Score -1.2. RT FEMUR, TOTAL BMD 0.699 g/cm2 Young Adult T-Score -2.4 Age Matched Z-Score -1.9. RT NECK BMD 0.744 g/cm2 Young Adult T-Score -2.1 Age Matched Z-Score -1.2. IMPRESSION: There is low bone density of the spine. There is low bone density of the left hip. There is low bone density of the right hip. FOLLOW-UP: Recommendation for the next bone density exam: 2 years. <Electronically signed by Chan Villa > 03/20/21 [id number]
== END ==
LOC: M WHC 13:49
PROVIDERS: ATTEND Internal Medicine Hematology & Oncology
DX: M81.0 Age-related osteoporosis without current pathological fracture (principal)

== ENCOUNTER 2021-04-13 15:15 | Inpatient (IN) | payer MEDICARE, BC, OTHER, MEDICAID ==
[~2021-04-13] VITALS: Ht 154.9 cm; Wt 98.7 kg
[2021-04-13] MEDS ORDERED: ATROPINE SULF 1MG/10ML SYRINGE (J0461) As Ordered ONE (15:24)
[2021-04-13] MEDS: SODIUM BICARBONATE 8.4% INJ 50 ML SYRINGE IV PRN ×5 (15:31→17:47)
[2021-04-13] MEDS ORDERED: NOREPINEPHRINE 4 MG/4 ML AMP As Ordered ONE ×2 (15:37→22:40)
[2021-04-13] MEDS: NOREPINEPHRINE BITARTRATE 8 MG in D5W 492 ML IV SCH ×8 (15:45→16:57)
--- NOTE | 2021-04-13 15:54 | REP ---
INDICATION: unresponsive. COMPARISON: 02/02/2021. TECHNIQUE: Single portable AP view of the chest was performed. FINDINGS: There is mild cardiomegaly and vascular congestion. I see no evidence of infiltrate. Mediastinal silhouette appears magnified. Endotracheal tube is present with the tip approximately 1 cm above the delio. Right central venous catheter is again seen with the tip at the junction of the superior vena cava and right atrium. IMPRESSION: No acute infiltrate. Endotracheal tube tip 1 cm above the delio. <Electronically signed by Bran Chirinos > 04/13/21 [id number]
[2021-04-13] MEDS ORDERED: PHENYTOIN INJection 1,000 MG in NS 100 ML IV ONE (16:20)
[2021-04-13] MEDS ORDERED: MEROPENEM INJ 2 GM in NS 100 ML IV ONE (16:20)
[2021-04-13 16:36] LABS: HEMATOCRIT 40.9 % (36.0-47.0); MEAN CORPUSCULAR HEMOGLOBIN 29.4 pg (27.0-33.0); MEAN CORPUSCULAR HGB CONC 29.3 g/dl (32.0-36.5); MEAN CORPUSCULAR VOLUME 100.2 fl (80.0-96.0); PLATELET COUNT, AUTOMATED 219 10^3/uL (150-450); RED BLOOD COUNT 4.08 10^6/uL (4.00-5.40); WHITE BLOOD COUNT 10.4 10^3/uL (4.0-10.0)
[2021-04-13] MEDS: MEROPENEM INJ 1 GM in IV 1 EA IV SCH ×2 (16:36→19:26)
[2021-04-13 16:47] LABS: INR 1.67; PROTHROMBIN TIME 20.1 SECONDS (12.5-14.3)
[2021-04-13 16:48] LABS: PARTIAL THROMBOPLASTIN TIME 68.7 SECONDS (24.2-38.5)
[2021-04-13 16:49] LABS: ATYPICAL LYMPH 4 % (0-5); EOSINOPHILS 2 % (0-3); LYMPHOCYTES 38 % (16-44); MONOCYTES 3 % (0-5); NEUTROPHILS 48 % (28-66)
[2021-04-13 16:50] LABS: ANISOCYTOSIS 1+; PLATELET CLUMPS MODERATE AMT; PLATELET ESTIMATE NORMAL (NORMAL); TOXIC VACUOLATION 1+
[2021-04-13] MEDS ORDERED: SODIUM CHLORIDE 0.9% INJ 10 ML SYR IV PRN (17:10)
[2021-04-13 17:17] LABS: ALBUMIN 2.3 GM/DL (3.2-5.2); BILIRUBIN,DIRECT 0.3 MG/DL (0.0-0.2); BILIRUBIN,TOTAL 0.6 MG/DL (0.2-1.0); CALCIUM LEVEL 7.9 MG/DL (8.5-10.1); CK-MB VALUE MASS 7.1 NG/ML (<3.6); CREATININE FOR GFR 3.58 MG/DL (0.55-1.30); FREE T4 0.67 NG/DL (0.76-1.46); GLOMERULAR FILTRATION RATE 14.2 (>51); MB/CK RELATIVE INDEX 2.16 (< OR =4); POTASSIUM SERUM 4.5 MEQ/L (3.5-5.1); THYROID STIMULATING HORMONE 3.57 uIU/ML (0.358-3.740); TOTAL PROTEIN 5.1 GM/DL (6.4-8.2); TROPONIN I 0.08 NG/ML (< 0.10)
[2021-04-13] MEDS ORDERED: VASOPRESSIN INJ 20 UNITS/ML VIAL As Ordered ONE (17:44)
[2021-04-13] MEDS ORDERED: VASOPRESSIN INJ 20 UNITS in NS 500 ML IV SCH (17:50)
[2021-04-13] MEDS ORDERED: DOPamine HCL 400 MG in IV 1 EA IV SCH ×2 (18:00→19:00)
[2021-04-13] MEDS: VASOPRESSIN INJ 20 UNITS in NS 500 ML IV SCH (18:00)
[2021-04-13] MEDS ORDERED: SODIUM BICARBONATE 8.4% INJ 50 ML SYRINGE IV STA (18:00)
[2021-04-13] MEDS ORDERED: EPINEPHrine 1MG/10ML SYRINGE 1.5IN IV STA (18:00)
[2021-04-13] MEDS ORDERED: ATROPINE SULF 1MG/10ML SYRINGE (J0461) IV STA (18:07)
[2021-04-13] MEDS ORDERED: EPINEPHrine 1MG/10ML SYRINGE 1.5IN IV PRN (18:10)
[2021-04-13] MEDS ORDERED: MIDAZOLAM INJ 2MG/2ML VIAL (J2250 PER 1MG) IV PRN (18:30)
[2021-04-13] MEDS ORDERED: PHEN100C PO (19:00)
[2021-04-13] MEDS ORDERED: DEXTROSE 50% 50 ML SYRINGE IV PRN (19:15)
[2021-04-13] MEDS ORDERED: GLUCOSE 4GM CHEW TABLET PO PRN (19:15)
[2021-04-13] MEDS ORDERED: GLUCAGON INJ 1MG VIAL SC PRN (19:15)
[2021-04-13] MEDS ORDERED: PHYTONADIONE 10MG/ML INJECTION (J3430) SC ONE (19:30)
[2021-04-13 20:28] LABS: HEMATOCRIT 45.6 % (36.0-47.0); MEAN CORPUSCULAR HEMOGLOBIN 29.6 pg (27.0-33.0); MEAN CORPUSCULAR HGB CONC 31.1 g/dl (32.0-36.5); MEAN CORPUSCULAR VOLUME 95.2 fl (80.0-96.0); PLATELET COUNT, AUTOMATED 172 10^3/uL (150-450); RED BLOOD COUNT 4.79 10^6/uL (4.00-5.40); WHITE BLOOD COUNT 16.7 10^3/uL (4.0-10.0)
[2021-04-13 20:29] LABS: HEMOGLOBIN 14.2 g/dl (12.0-15.5)
[2021-04-13 20:39] LABS: ANISOCYTOSIS 1+; ATYPICAL LYMPH 4 % (0-5); LYMPHOCYTES 18 % (16-44); METAMYELOCYTES 3 % (0-0); MONOCYTES 7 % (0-5); NEUTROPHILS 53 % (28-66); PLATELET ESTIMATE NORMAL (NORMAL)
[2021-04-13 20:40] LABS: TOXIC VACUOLATION 1+
[2021-04-13] MEDS: HumaLOG INSULIN (NovoLOG) PER UNIT SC SCH ×2 (20:51→23:35)
[2021-04-13] MEDS: metroNIDAZOLE 500 MG in IV 1 EA IV SCH (20:57)
[2021-04-13] MEDS ORDERED: PANTOPRAZOLE 40MG VIAL (C9113 PER 1) IV SCH (21:00)
[2021-04-13] MEDS ORDERED: CHLORHEXIDINE GLUCONATE 0.12 % 15ML UDC (PERIDEX ORAL RINSE) MT SCH (21:00)
--- NOTE | 2021-04-13 21:06 | HPE ---
HISTORY AND PHYSICAL DATE OF ADMISSION: 04/13/2021 History was obtained from the chart and from the patient's as the patient was intubated and unable to provide history. CHIEF COMPLAINT: Unresponsiveness and cardiac arrest. HISTORY OF PRESENT ILLNESS: Ms Schroeder is a 55-year-old female with a past medical history of multiple sclerosis, status post autologous stem cell transplant who is wheelchair bound at baseline with a history of neurogenic bladder status post cystectomy with diverting ileal conduit and a history of bilateral hydronephrosis, status post nephrostomy tubes with history of recurrent UTIs, seizure disorder, CKD, who presented initially with a complaint of unresponsiveness. As per the patient's , the patient had been noted to have two days of complaints of nausea and vomiting as well as diarrhea. Today, they had attempted to assist her to go into the bathroom when she had collapsed and soiled herself. She was then lethargic and minimally responsive. EMS was called and upon their arrival, she was noted to be very minimally responsive but did have a pulse and reportedly blood pressure. Upon arrival to the ED, the patient appeared mottled and was agonally breathing. She was also noted to have dilated pupils that were very minimally responsive to light. Shortly after arrival, she then became bradycardic and went into asystole. CPR was started and patient received multiple doses of epinephrine as well as sodium bicarb with ROSC achieved after more than 20 minutes. Post-arrest, the patient was unresponsive. She was hypotensive and started on Levophed for blood pressure support. The patient was given broad-spectrum antibiotics with meropenem in the ED. She was also loaded with Dilantin given her history of seizure disorder. In the ED, the patient continued to have some episodes of hypotension and was requiring increasing amounts of Levophed. She then appeared to go into a PEA arrest and had requested a brief resumption of CPR again for her second cardiac arrest. She was given one unit of epinephrine and one amp of sodium bicarb with ROSC achieved afterwards. The patient was also noted initially to have very dark coffee ground output from her OG tube. After her second cardiac arrest, she had more bloody output from the OG tube noted. The patient's was at the bedside during her second cardiac arrest. A discussion with the patient's about her goals of care had stated previously that she had wanted intubation and CPR initially but patient would not have been wanting to be kept on ventilator if she did not have a prognosis for meeting full neurologic recovery and as per the would not been wanting to be kept "on life support" if she were in any persistent vegetative state. We discussed therefore with second cardiac arrest and even with her initial presentation that there was some concern for anoxic brain injury. The patient's had therefore made her DNR AND WITH A TRIAL OF INTUBATION. PAST MEDICAL AND SURGICAL HISTORY: 1. Progressive multiple sclerosis, status post autologous stem cell transplant in January, in [place], wheelchair bound at baseline. 2. Neurogenic bladder, status post cystectomy. 3. Bilateral hydronephrosis, status post nephrostomy tubes. 4. History of recurrent UTI with a history of Pseudomonas and Enterococcus faecalis. 5. CKD. 6. COPD. 7. Hypertension. 8. Migraines. 9. Obesity. 10. Anxiety/depression. 11. History of torticollis and pseudobulbar effect. 12. Seizure disorder. 13. Microcytic anemia. 14. Hepatic steatosis. 15. Basal cell carcinoma, status post Mohs surgery. 16. Bilateral breast reduction. 17. Bilateral wrist surgery. 18. Status post tubal ligation. 19. Chemoport placement. 20. Hysterectomy. SOCIAL HISTORY: Patient is . She is a former smoker, drinks alcohol very rarely and has a previous history of reported occasional marijuana use. FAMILY HISTORY: Brother with a history of epilepsy. HOME MEDICATIONS: 1. Acyclovir. 2. Albuterol. 3. Amantadine. 4. Aspirin. 5. Atorvastatin. 6. Clonazepam. 7. Duloxetine. 8. Vitamin D. 9. Fosfomycin weekly. 10. Hydroxyzine. 11. Lactulose. 12. Keppra. 13. Synthroid. 14. Magnesium oxide. 15. Melatonin. 16. Meloxicam. 17. Asmanex. 18. Pantoprazole. 19. Phenytoin. 20. Potassium chloride. 21. Lyrica. 22. Promethazine p.r.n. 23. Senokot q.h.s. ALLERGIES: 1. CEPHALOSPORIN. 2. SULFA. 3. HYDROCODONE. 4. OXYCODONE. PHYSICAL EXAMINATION: VITAL SIGNS: Temperature afebrile, pulse 120, blood pressure 78/34, O2 sat 94% on 100% FiO2. Ins not documented were at least 2-3 liters of normal saline boluses. GENERAL: The patient is intubated, is not sedated. She is unresponsive to painful stimuli. HEENT: Normocephalic, atraumatic. Pupils are fixed and dilated, not responsive to light. There is no gag reflex noted. No corneal reflex. NECK: Supple. Trachea is midline. No palpable cervical adenopathy. There is dark coffee ground emesis and more bright red blood coming from the OG tube intermittently. CARDIOVASCULAR: Tachycardic, regular rate and rhythm. Normal S-1, S-2. Unable to clearly appreciate murmurs. PULMONARY: Coarse ventilator breath sounds noted bilaterally. No significant wheezing, rales or rhonchi. ABDOMEN: Obese, soft, nontender, nondistended. EXTREMITIES: There is no significant lower extremity edema noted bilaterally. Skin is mottled in the extremities and is cold to the touch. LABORATORY DATA: WBC 10.4. Hemoglobin is 12.0. Platelets are 249. Chemistries: Sodium is 151. Potassium is 4.5. Chloride is 111. Bicarb is 16, BUN 39, creatinine 3.58. Glucose is 232. Anion gap is 24. Lactic acid is 14.7. AST 344. ALT is 178. Alk phos is 359. Albumin is 2.3. BNP was 3923. Troponin was 0.08. TSH 3.57, free T4 0.67. INR was 1.67. PTT was 68.7. ABG initially had a pH of 6.9. Repeat ABG was 7.124, pCO2 of 78.9 and pO2 of 90. IMAGING: Chest x-ray shows the ET tube is 1 cm above delio. There is a right-sided chemo infusion port in place with the tip in the SVC. There is mild cardiomegaly and mild pulmonary vascular congestion. There are no focal opacities. ASSESSMENT AND PLAN: Ms Yang is a 55-year-old female with an extensive medical history including multiple sclerosis, with a history of neurogenic bladder and a history of frequent UTIs, hydronephrosis with bilateral nephrostomy tubes, a history of CKD, a seizure disorder who presented initially with complaints of unresponsiveness after having two days of nauseas, vomiting and diarrhea. In the ED, the patient was noted to be unresponsive and agonally breathing. She then had a cardiac arrest which was systole with a prolonged period before ROSC was achieved of more than 20 minutes. The patient also had a second brief cardiac arrest again in the ED before achieving ROSC. The patient is in shock post-arrest and had required Levophed and Dopamine for blood pressure support and is now on maxed three pressors with Levophed, Dopamine and vasopressin. The patient's was updated after her second cardiac arrest and after discussion of her previous goals of care had made DNR WITH A TRIAL OF INTUBATION and continue on current management as this time. Neuro. The patient has an extensive history regarding her multiple sclerosis. She also has a history of seizure disorders. Patient is unresponsive post arrest and appears to have fixed and dilated pupils. She has no gag reflex currently and no corneal reflex. She was initially overbreathing the ventilator but does not appear on the ventilator overbreathing now at this time. There is concern for anoxic brain injury with her presentation and her cardiac arrest. She is not a candidate for hypothermia protocol given hemodynamic instability and multiple cardiac arrests. Patient has not received any sedation. We will continue at this point with Versed p.r.n. as needed. We will continue with her home Keppra and Dilantin. She was loaded with additional phenytoin in the ED. We will check Dilantin level then continue Cardiac. Patient with history of hypertension. She presented as a cardiac arrest possibly secondary to sepsis given her initial presentation and there is also a possibility with her nausea and vomiting and her neurologic disease that she may have had aspiration and acute hypoxic event which also contributed to her cardiac arrest. She is now in shock like secondary to cardiac arrest with a possible component of sepsis. Patient is on Levophed, Dopamine and vasopressin with maximal triple pressors to maintain a MAP above 65. We will continue to trend cardiac enzymes. She had a severe lactic acidosis initially due to her cardiac arrest which we will continue to trend. She had received aggressive fluid hydration in the ED. I would hold off on further saline fluids at this time as she is hypernatremic and hyperchloremic. Pulmonary. Patient is intubated and on mechanical ventilation now post-cardiac arrest. Her initial chest x-ray did not show any focal opacities or infiltrates. There was some mild pulmonary vascular congestion noted. She did have an elevated BNP. I will continue patient on mechanical ventilation. She will be on volume control settings of 460/27/108. We will continue to wean down her FiO2, however as tolerated to maintain O2 sat above 90%. We will continue with vent bundle care and chlorhexidine mouthwash while intubated. We will move her ET tube back as it is close to the delio. We will continue daily chest x-rays and ABGs while intubated. We will follow up a repeat ABG after her initial vent setting adjustments. She does have a combined metabolic acidosis and respiratory acidosis. ID. The patient has a history of recurrent UTIs with Pseudomonas and Enterococcus faecalis. She did receive meropenem initially in the ED. She was also reporting symptoms of nausea and vomiting and diarrhea as well prior to presentation. We will start her on Flagyl and meropenem and will follow up results of her urine culture and blood cultures. The patient is too unstable at this time given her pressor requirements for any imaging studies. Renal. The patient has a history of CKD. She appears to have TERRELL on CKD likely in the setting of her cardiac arrest and shock. There is significant concern that she will develop worsening renal failure and ATN. She is too unstable at this time for any dialysis given her pressor requirements. We will continue monitoring her renal function. We will place a Orellana catheter and monitor her Is and Os. We will monitor electrolytes. She does have some hypernatremia and hyperchloremia. In addition, her anion gap, metabolic lactic acidosis. We will hold off on saline fluids at this time. Patient does have some hyperglycemia. We will start her on sliding scale coverage and finger stick glucose checks. GI. Patient was noted to have dark coffee-ground emesis from her OG tube. She was also noted to have some more bright red output from the OG tube after her second cardiac arrest. She does also have evidence of transaminitis likely with shock liver given her cardiac arrest and hypotension. We will start patient on a PPI b.i.d. We will check a type and screen and we will monitor H&H and transfuse as needed. Given her coagulopathy which is likely in the setting of her shock and liver dysfunction, we will give her one dose of vitamin K and continue to monitor coags and fibrinogen. We will continue to monitor her liver function. We will keep patient NPO with OG tube to wall intermittent suction. DVT prophylaxis: TEDs and SCDs. GI prophylaxis: PPI. Code Status: DNR WITH A TRIAL OF INTUBATION. Prognosis is extremely poor at this time. Patient's is aware and is considering possible comfort measures but would like to continue with current trial of more aggressive management at this time. Total critical care time spent not including any procedures approximately one hour and 55 minutes. MTDD
[2021-04-13] MEDS ORDERED: SODIUM CHLORIDE 0.9% INJ 10 ML SYR IV SCH (22:00)
[2021-04-13] MEDS ORDERED: METAL LOCK LOOP XX ONE (22:06)
[2021-04-13 23:00] VITALS: BP 95/61
[2021-04-13 23:30] VITALS: BP 58/35
[2021-04-14] VITALS: BP 115/73
[2021-04-14] MEDS ORDERED: MEROPENEM INJ 2 GM in NS 100 ML IV SCH (00:55)
[2021-04-14 01:00] VITALS: BP 63/25
[2021-04-14] MEDS ORDERED: MEROPENEM INJ 1 GM in IV 1 EA IV SCH ×2 (01:00→02:00)
[2021-04-14 01:30] VITALS: BP 45/17
[2021-04-14 02:00] VITALS: BP 42/15
[2021-04-14] MEDS: VASOPRESSIN INJ 20 UNITS in NS 500 ML IV SCH (02:07)
[2021-04-14] MEDS: NOREPINEPHRINE BITARTRATE 8 MG in D5W 492 ML IV SCH (02:08)
[2021-04-14 03:00] VITALS: BP 59/29
[2021-04-14] MEDS: metroNIDAZOLE 500 MG in IV 1 EA IV SCH (03:09)
[2021-04-14 04:00] VITALS: BP 46/30
[2021-04-14 04:30] LABS: HEMATOCRIT 43.3 % (36.0-47.0); HEMOGLOBIN 12.5 g/dl (12.0-15.5); MEAN CORPUSCULAR HEMOGLOBIN 29.1 pg (27.0-33.0); MEAN CORPUSCULAR HGB CONC 28.9 g/dl (32.0-36.5); MEAN CORPUSCULAR VOLUME 100.9 fl (80.0-96.0); PLATELET COUNT, AUTOMATED 175 10^3/uL (150-450); RED BLOOD COUNT 4.29 10^6/uL (4.00-5.40); WHITE BLOOD COUNT 14.1 10^3/uL (4.0-10.0)
[2021-04-14 04:55] LABS: EOSINOPHILS 1 % (0-3); LYMPHOCYTES 28 % (16-44); METAMYELOCYTES 8 % (0-0); MONOCYTES 3 % (0-5); MYELOCYTES 1 % (0-0); NEUTROPHILS 36 % (28-66)
[2021-04-14 04:57] LABS: ANISOCYTOSIS 1+; TOXIC VACUOLATION 1+
[2021-04-14 05:32] LABS: ALBUMIN 2.2 GM/DL (3.2-5.2); BILIRUBIN,TOTAL 1.2 MG/DL (0.2-1.0); CALCIUM LEVEL 7.6 MG/DL (8.5-10.1); CREATININE FOR GFR 4.39 MG/DL (0.55-1.30); GLOMERULAR FILTRATION RATE 11.2 (>51); PHOSPHORUS LEVEL 8.7 MG/DL (2.5-4.9); POTASSIUM SERUM 5.1 MEQ/L (3.5-5.1); TOTAL PROTEIN 5.2 GM/DL (6.4-8.2)
[2021-04-14 06:54] LABS: PLATELET ESTIMATE NORMAL (NORMAL)
--- NOTE | 2021-04-14 10:00 | DS.PDOC ---
Discharge Summary General Date of Admission April 13, 2021 at 18:27 Date of Discharge 04/14/21 Discharge Summary PROCEDURES PERFORMED DURING STAY: Right femoral central line placement, endotracheal intubation ADMITTING DIAGNOSES: 1. Encephalopathy 2. Cardiac arrest 3. Acute respiratory failure 4. Shock 5. Sepsis 6. Acute on chronic renal failure 7. Shock liver 8. Metabolic anion gap acidosis 9. Coagulopathy 10. GIB DISCHARGE DIAGNOSES: 1. Encephalopathy 2. Cardiac arrest 3. Acute respiratory failure 4. Shock 5. Sepsis 6. Acute on chronic renal failure 7. Shock liver 8. Metabolic anion gap acidosis 9. Coagulopathy 10. GIB, possible ischemic bowel COMPLICATIONS/CHIEF COMPLAINT: Cardiac Arrest. HISTORY OF PRESENT ILLNESS: Ms Yang is a 55-year-old female with a past medical history of multiple sclerosis, status post autologous stem cell transplant who is wheelchair bound at baseline with a history of neurogenic bladder status post cystectomy with diverting ileal conduit and a history of bilateral hydronephrosis, status post nephrostomy tubes with history of recurrent UTIs, seizure disorder, CKD, who presented initially with a complaint of unresponsiveness. As per the patient's , the patient had been noted to have two days of complaints of nausea and vomiting as well as diarrhea. Today, they had attempted to assist her to go into the bathroom when she had collapsed and soiled herself. She was then lethargic and minimally responsive. EMS was called and upon their arrival, she was noted to be very minimally responsive but did have a pulse and reportedly blood pressure. Upon arrival to the ED, the patient appeared mottled and was agonally breathing. She was also noted to have dilated pupils that were very minimally responsive to light. Shortly after arrival, she then became bradycardic and went into asystole. CPR was started and patient received multiple doses of epinephrine as well as sodium bicarb with ROSC achieved after more than 20 minutes. Post-arrest, the patient was unresponsive. She was hypotensive and started on Levophed for blood pressure support. The patient was given broad-spectrum antibiotics with meropenem in the ED. She was also loaded with Dilantin given her history of seizure disorder. In the ED, the patient continued to have some episodes of hypotension and was requiring increasing amounts of Levophed. She then appeared to go into a PEA arrest and had requested a brief resumption of CPR again for her second cardiac arrest. She was given one unit of epinephrine and one amp of sodium bicarb with ROSC achieved afterwards. The patient was also noted initially to have very dark coffee ground output from her OG tube. After her second cardiac arrest, she had more bloody output from the OG tube noted. The patient's was at the bedside during her second cardiac arrest. A discussion with the patient's about her goals of care had stated previously that she had wanted intubation and CPR initially but patient would not have been wanting to be kept on ventilator if she did not have a prognosis for meeting full neurologic recovery and as per the would not been wanting to be kept "on life support" if she were in any persistent vegetative state. We discussed therefore with second cardiac arrest and even with her initial presentation that there was some concern for anoxic brain injury. The patient's had therefore made her DNR AND WITH A TRIAL OF INTUBATION HOSPITAL COURSE: Patient was transferred to medical ICU for further management. Patient required increasing PEEP and 100% FiO2 to maintain oxygenation above 90%. She was on maximal vasopressors with dopamine, levophed and vasopressin and continued to have MAP less than 65. She was continued with broad spectrum antibiotics. She continued to have worsening lactic acidosis, likely concern for bowel ischemia given her cardiac arrest and shock with her hematemesis. She was on PPI BID for possible GIB. Overnight in stitcher tape controlled machine patient was noted to become more hypotensive despite her maximal pressors. Patient's was at bedside and understanding of her poor prognosis and likely eminent demise. Patient was a DNR and she again went into asystole at 4:47am and was pronounced . DISCHARGE MEDICATIONS: Please see below. ALLERGIES: Please see below. PHYSICAL EXAMINATION ON DISCHARGE: VITAL SIGNS: Please see below. GENERAL: The patient is intubated, is not sedated. She is unresponsive to painful stimuli. HEENT: Normocephalic, atraumatic. Pupils are fixed and dilated, not responsive to light. There is no gag reflex noted. No corneal reflex. NECK: Supple. Trachea is midline. No palpable cervical adenopathy. There is dark coffee ground emesis and more bright red blood coming from the OG tube intermittently. CARDIOVASCULAR: Tachycardic, regular rate and rhythm. Normal S-1, S-2. Unable to clearly appreciate murmurs. PULMONARY: Coarse ventilator breath sounds noted bilaterally. No significant wheezing, rales or rhonchi. ABDOMEN: Obese, soft, nontender, nondistended. EXTREMITIES: There is no significant lower extremity edema noted bilaterally. Skin is mottled in the extremities and is cold to the touch. LABORATORY DATA: Please see below. IMAGING: Chest x-ray shows the ET tube is 1 cm above delio. There is a right-sided chemo infusion port in place with the tip in the SVC. There is mild cardiomegaly and mild pulmonary vascular congestion. There are no focal opacities. PROGNOSIS: Poor- ACTIVITY: DISCHARGE PLAN: None, DISPOSITION: 20 . DISCHARGE INSTRUCTIONS: None DISCHARGE CONDITION: TIME SPENT ON DISCHARGE: Greater than 30 minutes. Vital Signs/I&Os Vital Signs Date Time Temp Pulse Resp B/P (MAP) Pulse Ox O2 Delivery O2 Flow Rate FiO2 04/14/21 04:00 97.2 102 27 46/30 (35) 89 Ventilator 100.0 04/14/21 04:00 100 I&O- Last 24 Hours up to 6 AM 04/14/21 06:00 Intake Total 920 ml Output Total 400 ml Balance 520 ml Laboratory Data Labs 24H Laboratory Tests 2 04/13/21 15:50: POC Glucose (Misc Panel) 241H, POC Sodium (Misc Panel) 143, POC Potassium (Misc Panel) 4.9, POC Chloride (Misc Panel) 114H, POC Total CO2 (Misc Panel) 14.0L, POC Blood Urea Nitrogen (Misc Panel 49H, POC Ionized Calcium (Misc Panel) 3.8L, POC Creatinine (Misc Panel) 3.5H, POC Hematocrit (Misc Panel) 39.0 04/13/21 15:58: POC Total CO2 (Misc Panel) 17.0L, POC pH (Misc Panel) 6.923*L, POC Base Excess (Misc Panel) -18.0L, POC Saturated Percent O2 (Misc) 97, POC pO2 (Misc Panel) 143.0H, POC pCO2 (Misc Panel) 71.8*H, POC HCO3 (Misc Panel) 14.8L 04/13/21 16:21: Neutrophils (%) (Auto) , Nucleated Red Blood Cells % (auto) 0.8H, Neutrophils 48, Band Neutrophils 5, Lymphocytes (Manual) 38, Monocytes (Manual) 3, Eosinophils (Manual) 2, Atypical Lymphocytes 4, Anisocytosis 1+, Toxic Vac uolation 1+, Platelet Estimate NORMAL, Clumped Platelets MODERATE AMT, Prothrombin Time 20.1H, Prothromb Time International Ratio 1.67, Activated Partial Thromboplast Time 68.7H, Anion Gap 24H, Glomerular Filtration Rate 14.2L, Lactic Acid Level 14.7*H, Calcium Level 7.9L, Total Bilirubin 0.6, Direct Bilirubin 0.3H, Aspartate Amino Transf (AST/SGOT) 344H, Alanine Aminotransferase (ALT/SGPT) 178H, Alkaline Phosphatase 352H, Total Creatine Kinase 329H, Creatine Kinase MB 7.1H, Creatine Kinase MB Relative Index 2.16, Troponin I 0.08, PR-Elo-I-Type Natriuretic Peptide 3923H, Total Protein 5.1L, Albumin 2.3L, Albumin/Globulin Ratio 0.8L, Lipase 78, Thyroid Stimulating Hormone (TSH) 3.570, Free Thyroxine 0.67L 04/13/21 17:39: POC Total CO2 (Misc Panel) 28.0H, POC pH (Misc Panel) 7.124*L, POC Base Excess (Misc Panel) -3.0L, POC Saturated Percent O2 (Misc) 93L, POC pO2 (Misc Panel) 90.0, POC pCO2 (Misc Panel) 78.9*H, POC HCO3 (Misc Panel) 25.9 04/13/21 20:20: Neutrophils (%) (Auto) , Nucleated Red Blood Cells % (auto) 0.5H, Neutrophils 53, Band Neutrophils 15H, Lymphocytes (Manual) 18, Monocytes (Manual) 7H, Metamyelocytes 3H, Atypical Lymphocytes 4, Anisocytosis 1+, Toxic Vacuolation 1+, Platelet Estimate NORMAL, Troponin I 0.77#H 04/13/21 20:50: Bedside Glucose (Misc Panel) 169H 04/13/21 23:33: Bedside Glucose (Misc Panel) 100 04/14/21 04:06: Neutrophils (%) (Auto) , Nucleated Red Blood Cells % (auto) 1.4H, Neutrophils 36, Band Neutrophils 23H, Lymphocytes (Manual) 28, Monocytes (Manual) 3, Metamyelocytes 8H, Anisocytosis 1+, Toxic Vacuolation 1+, Platelet Estimate NORMAL, Eosinophils (Manual) 1, Myelocytes 1H, Macrocytosis 1+, Fibrinogen 312, Anion Gap 27H, Glomerular Filtration Rate 11.2L, Lactic Acid Followup at 4 Hours 19.0*H, Calcium Level 7.6L, Phosphorus Level 8.7H, Magnesium Level 5.0*H, Total Bilirubin 1.2#H, Aspartate Amino Transf (AST/SGOT) 1901H, Alanine Francis otransferase (ALT/SGPT) 702H, Alkaline Phosphatase 410H, Total Protein 5.2L, Albumin 2.2L, Albumin/Globulin Ratio 0.7L CBC/BMP Laboratory Tests 04/13/21 16:21 04/13/21 20:20 04/14/21 04:06 FSBS Laboratory Tests Test 04/13/21 20:50 04/13/21 23:33 Range/Units Bedside Glucose (Misc Panel) 169 100 70-105 MG/DL Microbiology Microbiology 04/13/21 Respiratory Virus Panel (PCR) (VANDANA) - Final, Complete 04/13/21 Blood Culture, Received Pending Discharge Medications Scheduled Acyclovir (Acyclovir) 400 Mg Tab, 400 MG PO BID, (Reported) Amantadine HCl (Amantadine) 100 Mg Tablet, 100 MG PO BID, (Reported) Aspirin (Ecotrin) 81 Mg Tablet.dr, 81 MG PO QHS, (Reported) Atorvastatin Calcium (Atorvastatin Calcium) 40 Mg Tablet, 40 MG PO DAILY, (Repor pedro) Clonazepam (Clonazepam) 1 Mg Tab, 1 MG PO QHS, (Reported) Duloxetine Hcl (Duloxetine HCl) 60 Mg Capsule.dr, 60 MG PO BID, (Reported) Ergocalciferol (Vitamin D2) (Vitamin D2) 50,000 Units Cap, 50,000 UNITS PO 1XWK, (Reported) FRIDAYS Fosfomycin Tromethamine (Fosfomycin Tromethamine) 3 Gram Packet, 3 GM PO QWEEK, (Reported) FRIDAYS Hydroxyzine HCl (Hydroxyzine HCl) 25 Mg Tablet, 1 TAB PO BID for anxiety L.acidoph/L.bulg/B.bif/S.therm (Rosie-Bid Caplet) 1 Each Tablet, 1 EA PO BIDWM Lactulose (Lactulose) 10 Gm/15 Ml Solution, 30 ML PO DAILY Levetiracetam (Keppra) 500 Mg Tablet, 500 MG PO BID, (Reported) Levothyroxine Sodium (Levothyroxine Sodium) 50 Mcg Tablet, 50 MCG PO QAM, (Reported) 30 MINUTES BEFORE BREAKFAST Magnesium Oxide (Magnesium) 500 Mg Capsule, 500 MG PO QHS, (Reported) Melatonin (Melatonin) 10 Mg Capsule, 10 MG PO QHS, (Reported) Meloxicam (Meloxicam) 15 Mg Tablet, 15 MG PO DAILY, (Reported) Pantoprazole Sodium (Pantoprazole Sodium) 40 Mg Tablet.dr, 40 MG PO BID, (Reported) Phenytoin Sodium Extended (Phenytoin Sodium Extended) 100 Mg Capsule, 600 MG PO QHS, (Reported) Potassium Chloride (Potassium Chloride) 10 Meq Tab.er.prt, 10 MEQ PO DAILY, (Reported) Pregabalin (Lyrica) 300 Mg Capsule, 300 MG PO BID, (Reported) Sennosides/Docusate Sodium (Senokot-S Tablet) 1 Each Tablet, 1 TAB PO QHS, (Reported) Scheduled PRN Albuterol Sulfate (Ventolin Hfa) 108 Mcg/Act Aer, 2 PUFFS INH Q4H PRN for SHORTNESS OF BREATH, (Reported) Mometasone Furoate (Asmanex Hfa) 100 Mcg/Act Hfa.aer.ad, 1 PUFF INH BID PRN for ASTHMA SYMPTOMS, (Reported) Promethazine HCl (Promethazine HCl) 25 Mg Tablet, 25 MG PO Q4H PRN for NAUSEA OR VOMITING, (Reported) FOR NAUSEA RELATED TO MIGRAINES Allergies Coded Allergies: Cephalosporins (Verified Allergy, Intermediate, rash, 12/27/19) Sulfa (Sulfonamide Antibiotics) (Verified Allergy, Mild, itchy, 12/27/19) oxycodone (Verified Allergy, Mild, itchy, 12/27/19) hydrocodone (Verified Adverse Reaction, Intermediate, chest pain, 12/27/19) LIAN MAK MD April 14, 2021 09:59
--- NOTE | 2021-04-14 13:23 | ECGEPIP ---
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
== END 2021-04-14 04:47 | disposition expired | DRG 871 ==
LOC: M ED 15:15 → EDBD 15:15 → M ED INP 18:27 → ENRESERV 20:55 → M ICU 22:39
PROVIDERS: ADMIT Internal Medicine Pulmonary Disease; ATTEND Internal Medicine Pulmonary Disease
PROC: 5A1935Z Respiratory Ventilation, Less than 24 Consecutive Hours (ICD-10-PCS; principal; 2021-04-13)
PROC: 0BH17EZ Insertion of Endotracheal Airway into Trachea, Via Natural or Artificial Opening (ICD-10-PCS; 2021-04-13)
DX: A41.9 Sepsis, unspecified organism (principal); J18.9 Pneumonia, unspecified organism; K72.00 Acute and subacute hepatic failure without coma; R65.21 Severe sepsis with septic shock; J96.00 Acute respiratory failure, unspecified whether with hypoxia or hypercapnia; K55.059 Acute (reversible) ischemia of intestine, part and extent unspecified; R57.9 Shock, unspecified; E87.4 Mixed disorder of acid-base balance; E87.0 Hyperosmolality and hypernatremia; N17.9 Acute kidney failure, unspecified; G93.40 Encephalopathy, unspecified; K92.2 Gastrointestinal hemorrhage, unspecified; I46.9 Cardiac arrest, cause unspecified; Z66 Do not resuscitate; G35 Multiple sclerosis; G40.909 Epilepsy, unspecified, not intractable, without status epilepticus; N18.9 Chronic kidney disease, unspecified; Z93.1 Gastrostomy status; N31.9 Neuromuscular dysfunction of bladder, unspecified; G43.909 Migraine, unspecified, not intractable, without status migrainosus; E66.9 Obesity, unspecified; F41.9 Anxiety disorder, unspecified; F32.9 Major depressive disorder, single episode, unspecified; D50.9 Iron deficiency anemia, unspecified; K76.0 Fatty (change of) liver, not elsewhere classified; Z85.828 Personal history of other malignant neoplasm of skin; Z90.79 Acquired absence of other genital organ(s); Z87.891 Personal history of nicotine dependence; Z79.899 Other long term (current) drug therapy; Z88.1 Allergy status to other antibiotic agents; Z88.2 Allergy status to sulfonamides; Z88.5 Allergy status to narcotic agent; Z87.440 Personal history of urinary (tract) infections; E87.8 Other disorders of electrolyte and fluid balance, not elsewhere classified; R73.9 Hyperglycemia, unspecified; R74.01 Elevation of levels of liver transaminase levels